=== PATIENT | female | born 1935 | race Caucasian/White ===

== ENCOUNTER → 2016-12-09 | Outpatient (CLI) | payer BC ==
[~2016-12-09] MED LIST: ALLO100T PO; ATEN50TA8 PO; ATOR-22 PO; COMPOUND CREAM EXT; CYAN100020 PO; DICL1GEL12 EXT; FERR325T51 PO; GABA1CAP5 PO; IPRA1AER2 INH; MULTTAB5 PO; NORT10CA2 PO; NORT25CA PO; NXM/40 PO; SENNTAB23 PO; TAPE50TA5 PO; TELM80TA PO; TRAM-10 PO; ZNTT/150 PO
[2016-12-09 17:59] LABS: HEMATOCRIT 37.2 % (37-47); MEAN CELL VOLUME 98.4 fL (80-100); MEAN CORPUSCULAR HEMOGLOBIN 31.2 pg (25-34); MEAN CORPUSCULAR HGB CONC 31.7 g/dl (32-36); MEAN PLATELET VOLUME 10.1 fL (7.4-10.4); PLATELET COUNT 252 K/uL (130-400); RED BLOOD COUNT 3.78 M/uL (4.2-5.4); WHITE BLOOD COUNT 8.33 K/uL (4.8-10.8)
[2016-12-09 18:01] LABS: ALT/SGPT 22 U/L (12-78); AST/SGOT 11 U/L (15-37); BLOOD UREA NITROGEN 33 mg/dl (7-18); BUN/CREATININE RATIO 25.5 (10-20); CALCIUM 8.7 mg/dl (8.5-10.1); CARBON DIOXIDE 32 mmol/L (21-32); CHLORIDE 104 mmol/L (98-107); GLUCOSE 106 mg/dl (70-99); SODIUM 140 mmol/L (136-145)
[2016-12-09 18:06] LABS: URINE PROTIEN/CREAT RATIO 0.1 (0-0.2)
[2016-12-09 18:13] LABS: ALB/GLOB RATIO 1.1 (0.9-2); ALKALINE PHOSPHATASE 81 U/L (45-117)
[2016-12-09 18:29] LABS: COMPLETE YES; EOSINOPHIL % 2.6 %; LYMPH ABS # 1.02 K/uL (1.2-3.4); LYMPHOCYTE % 12.2 %; MYELOCYTE % 0.9 %; NEUTROPHILS % 73.9 %; OVALOCYTES 1+
[2016-12-10 06:13] LABS: ESTIMATED AVERAGE GLUCOSE 111 mg/dl; HA1C FLAG Normal (Normal)
== END | disposition home or self-care (01) ==
LOC: C.LABPBG 12:08
PROVIDERS: ATTEND Internal Medicine Geriatric Medicine
DX: I12.9 Hypertensive chronic kidney disease with stage 1 through stage 4 chronic kidney disease, or unspecified chronic kidney disease (principal); M19.90 Unspecified osteoarthritis, unspecified site; D64.9 Anemia, unspecified; E11.29 Type 2 diabetes mellitus with other diabetic kidney complication; N18.3 Chronic kidney disease, stage 3 (moderate); E55.9 Vitamin D deficiency, unspecified

== ENCOUNTER 2017-07-03 14:58 | Emergency (ER) | payer BC ==
[~2017-07-03] VITALS: Ht 152.4 cm; Wt 89.0 kg
[~2017-07-03 14:58] MED LIST changes: -ATOR-22 PO; +GABA-1220 PO; -GABA1CAP5 PO; +RANI150T85 PO; -TRAM-10 PO; -ZNTT/150 PO
[2017-07-03 14:59] VITALS: TEMP 36.5; Ht 152.4 cm; Wt 89.0 kg
--- NOTE | 2017-07-03 15:23 | EMERGENCY ROOM VISIT NOTE ---
History Report prepared by Sheron: Roland Truong Under the Supervision of: Dr. Andre Cowan M.D. First contact with patient: 15:12 Chief Complaint: SHORTNESS OF BREATH Stated Complaint: SOB, WEAKNESS, FATIGUE History of Present Illness The patient is an 82 year old female who presents to the Emergency Room with complaints of constant SOB that began 2 weeks ago. The patient currently rates her discomfort a 4/10 in severity. She complains of weakness, fatigue, and increased swelling in her legs. She states her SOB worsens with exertion. She states that 2 weeks before, she did not have trouble walking. She is currently on Eliquis, Diltiazem, Xanax, and Amiodarone. She came back from [place] and woke up with SOB and wheezing. She went to the ED where was in Afib. She was told her micro valve is leaking and she needs to follow up with a shop tailor apprentice. She denies nausea, vomiting, abdominal pain, fevers, and chest pain. Source of History: patient Onset: 2 weeks ago Position: other (lungs) Symptom Intensity: pain rated as 4/10 Quality: other (SOB) Timing: constant Modifying Factors (Worsening): exertion Associated Symptoms: + weakness, No fevers, No chest pain, No nausea, No vomiting, No abdominal pain Note: Patient complains of increased swelling in her legs. Review of Systems See HPI for pertinent positives & negatives. A total of 10 systems reviewed and were otherwise negative. Past Medical & Surgical Medical Problems: (1) Asthma (2) Bronchitis (3) HTN (hypertension) (4) PNA (pneumonia) (5) Stomach problems (6) Ulcer Surgical Problems: (1) History of cholecystectomy Family History FH: lung disease FHx: heart disease Hypertension Social History Smoking Status: Never Smoker Marital Status: Occupation Status: retired Current/Historical Medications Scheduled Allopurinol (Zyloprim), 1 TAB PO QAM Amiodarone Hcl (Cordarone), 200 MG PO UD Apixaban (Eliquis), 5 MG PO BID Atenolol (Tenormin), 50 MG PO BID Atorvastatin (Lipitor), 20 MG PO QPM Cyanocobalamin (Vitamin B12), 1 TAB PO QAM Diltiazem Hcl Ext Rel (Tiazac), 240 MG PO DAILY Esomeprazole Magnesium (Nexium), 40 MG PO QAM Gabapentin (Neurontin), 400 MG PO QAM Multiple Vitamins W/ Minerals (Centrum), 1 TAB PO QAM Nortriptyline (Pamelor), 10 MG PO HS Nortriptyline (Pamelor), 25 MG PO HS Ranitidine (Zantac), 150 MG PO HS Telmisartan (Micardis), 80 MG PO QAM Scheduled PRN Alprazolam (Xanax), 0.5 MG PO Q8 PRN for Anxiety Diclofenac Sodium (Topical) (Voltaren 1% Top Gel), 1 DOSE EXT DAILY PRN for Pain Tapentadol Hcl (Nucynta), 50 MG PO BID PRN for prn Miscellaneous Medications Gabapentin (Neurontin), 800 MG PO Allergies Coded Allergies: Iodine (Verified Allergy, Severe, ANAPHYLAXIS, 01/25/16) Shellfish (Verified Allergy, Severe, ANAPHYLAXIS, 01/25/16) Paroxetine (Verified Allergy, Unknown, GI UPSET, 01/25/16) Physical Exam Vital Signs Date Time Temp Pulse Resp B/P (MAP) Pulse Ox O2 Delivery O2 Flow Rate FiO2 07/03/17 17:30 78 20 117/64 96 07/03/17 16:43 58 07/03/17 15:13 98 Room Air 07/03/17 14:59 36.5 71 18 119/67 97 Room Air Physical Exam GENERAL: Patient is tired appearing and in minimal distress. EYES: No scleral icterus, unremarkable pupils. ENT: Mucous membranes moist, no nasal congestion. NECK: No masses appreciated, no meningismus, trachea is midline. RESPIRATORY: No dyspnea. Clear to auscultation and equal bilaterally. No wheeze , no rhonchi. CARDIOVASCULAR: Regular rate and rhythm. No murmurs, rubs, gallops appreciated. GASTROINTESTINAL: Abdomen soft, nontender, no peritonitis. Bowel sounds positive. No masses appreciated. BACK: No midline tenderness, no CVA tenderness EXTREMITIES: Bilateral pitting edema of legs. Normal motion all extremities, no cyanosis. NEUROLOGIC: Alert and oriented, no acute motor or sensory deficits, no focal weakness, cranial nerves grossly intact. SKIN: No rash, no jaundice, no diaphoresis. Medical Decision & Procedures ER Provider Diagnostic Interpretation: Radiology results and stated below per my review and radiologist interpretation: CHEST ONE VIEW PORTABLE CLINICAL HISTORY: 82 years-old Female presenting with SHOB Fatigue, . TECHNIQUE: Portable upright AP view of the chest was obtained. COMPARISON: None. FINDINGS: Atherosclerosis of aortic arch. Cardiac silhouette enlarged. Chronic elevation of the left hemidiaphragm. No focal opacity. No large effusion or pneumothorax. Osseous structures normal. Upper abdomen normal. IMPRESSION: 1. Cardiomegaly. No other evidence of acute cardiopulmonary disease. Electronically signed by: Surjit John M.D. 07/03/2017 3:37 PM Dictated Date/Time: 07/03/2017 3:35 PM Laboratory Results 07/03/17 15:40 Red Blood Count 3.44, Mean Corpuscular Volume 100.9, Mean Corpuscular Hemoglobin 30.5, Mean Corpuscular Hemoglobin Concent 30.3, Mean Platelet Volume 8.9, Neutrophils (%) (Auto) 69.8, Lymphocytes (%) (Auto) 15.1, Monocytes (%) ( Auto) 8.3, Eosinophils (%) (Auto) 4.1, Basophils (%) (Auto) 0.6, Neutrophils # ( Auto) 3.60, Lymphocytes # (Auto) 0.78, Monocytes # (Auto) 0.43, Eosinophils # ( Auto) 0.21, Basophils # (Auto) 0.03 07/03/17 15:40 Test 07/03/17 15:40 White Blood Count 5.16 K/uL (4.8-10.8) Red Blood Count 3.44 M/uL (4.2-5.4) Hemoglobin 10.5 g/dL (12.0-16.0) Hematocrit 34.7 % (37-47) Mean Corpuscular Volume 100.9 fL (80-100) Mean Corpuscular Hemoglobin 30.5 pg (25-34) Mean Corpuscular Hemoglobin Concent 30.3 g/dl (32-36) Platelet Count 241 K/uL (130-400) Mean Platelet Volume 8.9 fL (7.4-10.4) Neutrophils (%) (Auto) 69.8 % Lymphocytes (%) (Auto) 15.1 % Monocytes (%) (Auto) 8.3 % Eosinophils (%) (Auto) 4.1 % Basophils (%) (Auto) 0.6 % Neutrophils # (Auto) 3.60 K/uL (1.4-6.5) Lymphocytes # (Auto) 0.78 K/uL (1.2-3.4) Monocytes # (Auto) 0.43 K/uL (0.11-0.59) Eosinophils # (Auto) 0.21 K/uL (0-0.5) Basophils # (Auto) 0.03 K/uL (0-0.2) RDW Standard Deviation 53.2 fL (36.4-46.3) RDW Coefficient of Variation 14.5 % (11.5-14.5) Immature Granulocyte % (Auto) 2.1 % Immature Granulocyte # (Auto) 0.11 K/uL (0.00-0.02) Anion Gap 5.0 mmol/L (3-11) Est Creatinine Clear Calc Drug Dose 28.2 ml/min Estimated GFR () 35.4 Estimated GFR (Non- 30.6 BUN/Creatinine Ratio 18.5 (10-20) Calcium Level 8.4 mg/dl (8.5-10.1) Magnesium Level 1.8 mg/dl (1.8-2.4) Troponin I < 0.015 ng/ml (0-0.045) Pro-B-Type Natriuretic Peptide 3149 pg/ml (0-1800) Thyroid Stimulating Hormone (TSH) 3.530 uIu/ml (0.300-4.500) Laboratory results as reviewed by me. Medications Administered Medications (Trade) Dose Ordered Sig/Herlinda Route Start Time Stop Time Status Last Admin Dose Admin Furosemide (Lasix Inj) 40 mg NOW STAT IV 07/03/17 16:39 07/03/17 16:41 DC 07/03/17 17:20 40 MG ECG Per My Interpretation Indication: SOB/dyspnea Rate (beats per minute): 76 Rhythm: atrial fibrillation Findings: no acute ischemic change, other (QTc of 465) ED Course 1512: The patient was evaluated in room A12. A complete history and physical exam was performed. 1640: I checked on the patient. She states that she feels fine and would like to go home if possible. We discussed that she likely has some fluid overload. She is agreeable to Lasix. She notes previous issues with potassium dropping quickly. Thus, she agrees to oral potassium and following up with her doctor early next week. 1715: Reevaluated the patient. Discussed results and discharge instructions: She verbalized understanding and agreement. The patient is ready for discharge. Medical Decision Differential: Infectious, Reactive Airway Disease, Pneumonia, Pneumothorax, COPD , CHF, ACS, Pulmonary Embolism, MSK, GI, Dissection, amongst other etiologies entertained. 82 yr old female arrives for shortness of breath and fatigue for last 2 week post discharge from [facility] for new onset Afib. On eliquis. Edema in legs and large heart CXR along with new afib I suspect this is primarily some congestive issues. No evidence ischemia, rate is well controlled, and she is already anticoagulated. TSH and mag look good as are other electrolytes. No evidence this is infectious in nature. She is not hypoxic, tachy, tachypneic, nor hypotensive and as she is already on blood thinner I feel risk PE is quite low and CT PE not indicated. She has never been on lasix though is well aware of them as he has been on for 20 yrs (even states he feels she should have been on them earlier). She notes previous issues with hypoK and thus I think it reasonable doing 20meq daily with PO lasix starting as long as she is seen by PCP in the next few days for recheck (which I advised heavily). She feels comfortable going home and is aware return at any time. Medication Reconcilliation Current Medication List: was personally reviewed by me Blood Pressure Screening Patient's blood pressure: Normal blood pressure Blood pressure disposition: Did not require urgent referral Impression Primary Impression: Shortness of breath Additional Impressions: Afib Fluid overload Scribe Attestation The scribe's documentation has been prepared under my direction and personally reviewed by me in its entirety. I confirm that the note above accurately reflects all work, treatment, procedures, and medical decision making performed by me. Departure Information Dispostion Home / Self-Care Referrals William Toussaint M.D. (PCP) Forms HOME CARE DOCUMENTATION FORM, IMPORTANT VISIT INFORMATION Patient Instructions My [facility] Stuffle Additional Instructions Take it easy over the next few days. Call 911 if worsening shortness of breath, chest pain, or passing out. Follow up with your primary provider early next week for further evaluation and recheck. Problem Qualifiers
--- NOTE | 2017-07-03 15:38 | DIAGNOSTIC IMAGING REPORT ---
CHEST ONE VIEW PORTABLE CLINICAL HISTORY: 82 years-old Female presenting with SHOB Fatigue, . TECHNIQUE: Portable upright AP view of the chest was obtained. COMPARISON: None. FINDINGS: Atherosclerosis of aortic arch. Cardiac silhouette enlarged. Chronic elevation of the left hemidiaphragm. No focal opacity. No large effusion or pneumothorax. Osseous structures normal. Upper abdomen normal. IMPRESSION: 1. Cardiomegaly. No other evidence of acute cardiopulmonary disease. Electronically signed by: Surjit John M.D. 07/03/2017 3:37 PM Dictated Date/Time: 07/03/2017 3:35 PM
[2017-07-03 15:49] LABS: BASO % 0.6 %; BASO ABS # 0.03 K/uL (0-0.2); EOS % 4.1 %; EOS ABS # 0.21 K/uL (0-0.5); HEMATOCRIT 34.7 % (37-47); HEMOGLOBIN 10.5 g/dL (12.0-16.0); IG# 0.11 K/uL (0.00-0.02); LYMPH % 15.1 %; LYMPH ABS # 0.78 K/uL (1.2-3.4); MEAN CELL VOLUME 100.9 fL (80-100); MEAN CORPUSCULAR HEMOGLOBIN 30.5 pg (25-34); MEAN CORPUSCULAR HGB CONC 30.3 g/dl (32-36); MEAN PLATELET VOLUME 8.9 fL (7.4-10.4); MONO % 8.3 %; MONO ABS # 0.43 K/uL (0.11-0.59); NEUT % 69.8 %; PLATELET COUNT 241 K/uL (130-400); RED CELL DISTRIBUTION WIDTH CV 14.5 % (11.5-14.5); RED CELL DISTRIBUTION WIDTH SD 53.2 fL (36.4-46.3); WHITE BLOOD COUNT 5.16 K/uL (4.8-10.8)
[2017-07-03] MEDS ORDERED: ATOR-22 PO (15:58)
[2017-07-03 16:05] LABS: BLOOD UREA NITROGEN 29 mg/dl (7-18); CALCIUM 8.4 mg/dl (8.5-10.1); CARBON DIOXIDE 26 mmol/L (21-32); CREATININE 1.58 mg/dl (0.60-1.20); GLUCOSE 191 mg/dl (70-99); POTASSIUM 4.4 mmol/L (3.5-5.1); SODIUM 138 mmol/L (136-145)
[2017-07-03] MEDS ORDERED: FUROSEMIDE 40 MG/4 ML VIAL IV STA (16:39)
[2017-07-03] MEDS ORDERED: FURO-85 PO (16:53)
[2017-07-03] MEDS ORDERED: POTA20TA16 PO (16:53)
[2017-07-03] MEDS ORDERED: ALPR-411 PO (17:23)
[2017-07-03] MEDS ORDERED: APIX1TAB3 PO (17:23)
[2017-07-03] MEDS ORDERED: AMIO200T4 PO (17:23)
[2017-07-03] MEDS ORDERED: DILT-115 PO (17:23)
[2017-07-03 17:30] VITALS: BP 117/64; PULSE 78; O2SAT 96
[2017-07-03] MEDS ORDERED: GABA-1220 PO ×2 (17:30)
== END 2017-07-03 17:31 | disposition home or self-care (01) ==
LOC: C.EDB 14:59 → C.EDA 17:31
DX: R06.02 Shortness of breath (principal); I48.91 Unspecified atrial fibrillation; R60.0 Localized edema; J45.909 Unspecified asthma, uncomplicated; I10 Essential (primary) hypertension; Z79.01 Long term (current) use of anticoagulants; Z91.013 Allergy to seafood; Z88.8 Allergy status to other drugs, medicaments and biological substances; Z91.041 Radiographic dye allergy status; Z83.3 Family history of diabetes mellitus; Z82.49 Family history of ischemic heart disease and other diseases of the circulatory system

== ENCOUNTER → 2017-07-06 | Outpatient (CLI) | payer BC ==
[~2017-07-06] MED LIST changes: +ALPR-411 PO; +AMIO200T4 PO; +APIX1TAB3 PO; +ATOR-22 PO; -COMPOUND CREAM EXT; +DILT-115 PO; -FERR325T51 PO; -IPRA1AER2 INH; -SENNTAB23 PO
[2017-07-06 15:43] LABS: ALBUMIN 3.5 gm/dl (3.4-5.0); BLOOD UREA NITROGEN 29 mg/dl (7-18); CALCIUM 8.5 mg/dl (8.5-10.1); CARBON DIOXIDE 27 mmol/L (21-32); CREATININE 1.79 mg/dl (0.60-1.20); GLUCOSE 97 mg/dl (70-99); PHOSPHORUS 3.2 mg/dl (2.5-4.9); POTASSIUM 3.9 mmol/L (3.5-5.1); SODIUM 139 mmol/L (136-145)
== END | disposition home or self-care (01) ==
LOC: C.LABBC 12:00
PROVIDERS: ATTEND Family Medicine Adult Medicine
DX: I50.9 Heart failure, unspecified (principal)

== ENCOUNTER → 2017-07-17 | Outpatient (CLI) | payer BC ==
[~2017-07-17] MED LIST changes: +FURO-85 PO; +MULT-190 PO
[2017-07-17 16:42] LABS: BASO % 0.4 %; BASO ABS # 0.03 K/uL (0-0.2); EOS % 3.1 %; EOS ABS # 0.24 K/uL (0-0.5); HEMATOCRIT 36.8 % (37-47); HEMOGLOBIN 11.4 g/dL (12.0-16.0); IG# 0.08 K/uL (0.00-0.02); LYMPH % 11.6 %; MEAN CELL VOLUME 100.8 fL (80-100); MEAN CORPUSCULAR HEMOGLOBIN 31.2 pg (25-34); MONO % 7.7 %; NEUT % 76.2 %; NEUT ABS # 5.94 K/uL (1.4-6.5); PLATELET COUNT 241 K/uL (130-400); RED CELL DISTRIBUTION WIDTH CV 15.2 % (11.5-14.5); RED CELL DISTRIBUTION WIDTH SD 54.7 fL (36.4-46.3); WHITE BLOOD COUNT 7.79 K/uL (4.8-10.8)
[2017-07-17 16:53] LABS: ALBUMIN 4.2 gm/dl (3.4-5.0); ALT/SGPT 22 U/L (12-78); BLOOD UREA NITROGEN 33 mg/dl (7-18); CARBON DIOXIDE 26 mmol/L (21-32); CREATININE 2.23 mg/dl (0.60-1.20); GLUCOSE 121 mg/dl (70-99); POTASSIUM 4.3 mmol/L (3.5-5.1); SODIUM 139 mmol/L (136-145)
[2017-07-17 17:03] LABS: ALKALINE PHOSPHATASE 87 U/L (45-117); AST/SGOT 17 U/L (15-37); TOTAL PROTEIN 7.2 gm/dl (6.4-8.2)
== END | disposition home or self-care (01) ==
LOC: C.LABPBG 14:21
PROVIDERS: ATTEND Internal Medicine Geriatric Medicine
DX: I12.9 Hypertensive chronic kidney disease with stage 1 through stage 4 chronic kidney disease, or unspecified chronic kidney disease (principal); D64.9 Anemia, unspecified; E11.22 Type 2 diabetes mellitus with diabetic chronic kidney disease; N18.3 Chronic kidney disease, stage 3 (moderate); E55.9 Vitamin D deficiency, unspecified; I48.91 Unspecified atrial fibrillation

== ENCOUNTER 2017-07-22 13:01 | Inpatient (IN) | payer BC, OTHER ==
[~2017-07-22] VITALS: Ht 152.4 cm; Wt 84.7 kg
[~2017-07-22 13:01] MED LIST changes: -CRDCD180 PO; -FURO-85 PO; -LDDP5 TD; -MGNO400 PO; -MULT-190 PO; -SYN25 PO; -TPRSR50 PO
[2017-07-22] MEDS ORDERED: MULT-190 PO (13:33)
[2017-07-22 13:56] LABS: BASO % 0.2 %; BASO ABS # 0.01 K/uL (0-0.2); EOS ABS # 0.36 K/uL (0-0.5); HEMATOCRIT 34.4 % (37-47); HEMOGLOBIN 10.7 g/dL (12.0-16.0); IG# 0.05 K/uL (0.00-0.02); LYMPH % 14.2 %; LYMPH ABS # 0.73 K/uL (1.2-3.4); MEAN CELL VOLUME 100.6 fL (80-100); MEAN CORPUSCULAR HEMOGLOBIN 31.3 pg (25-34); MEAN CORPUSCULAR HGB CONC 31.1 g/dl (32-36); MEAN PLATELET VOLUME 9.3 fL (7.4-10.4); MONO % 7.8 %; NEUT % 69.8 %; NEUT ABS # 3.59 K/uL (1.4-6.5); PLATELET COUNT 193 K/uL (130-400); RED CELL DISTRIBUTION WIDTH CV 15.2 % (11.5-14.5); RED CELL DISTRIBUTION WIDTH SD 55.8 fL (36.4-46.3); WHITE BLOOD COUNT 5.14 K/uL (4.8-10.8)
--- NOTE | 2017-07-22 14:10 | DIAGNOSTIC IMAGING REPORT ---
CHEST ONE VIEW PORTABLE HISTORY: Short of breath. Altered mental status. COMPARISON: Chest 07/03/2017. FINDINGS: There are low lung volumes. The right lung is clear. The heart remains borderline enlarged. No evidence for pulmonary edema. Stable blunting of the left lateral costophrenic sulcus. No new focal lung consolidations. IMPRESSION: No significant change compared to the prior study. No acute process. Electronically signed by: Lucius Tate M.D. 07/22/2017 2:09 PM Dictated Date/Time: 07/22/2017 2:07 PM
[2017-07-22 14:13] LABS: ALBUMIN 3.9 gm/dl (3.4-5.0); ALT/SGPT 21 U/L (12-78); AST/SGOT 13 U/L (15-37); BLOOD UREA NITROGEN 48 mg/dl (7-18); CALCIUM 8.9 mg/dl (8.5-10.1); CARBON DIOXIDE 27 mmol/L (21-32); CREATININE 2.75 mg/dl (0.60-1.20); GLUCOSE 129 mg/dl (70-99); POTASSIUM 4.5 mmol/L (3.5-5.1); SODIUM 137 mmol/L (136-145)
--- NOTE | 2017-07-22 14:20 | DIAGNOSTIC IMAGING REPORT ---
HEAD WITHOUT CONTRAST (CT) CLINICAL HISTORY: 82 years-old Female with AMS, diff walking. Acute altered mental status TECHNIQUE: Multiple axial CT images of the head were obtained without contrast. A dose lowering technique was utilized adhering to the principles of ALARA. CT DOSE: 537.48 mGy.cm COMPARISON: Head CT 04/08/2013. FINDINGS: No acute intracranial hemorrhage, midline shift, intracranial mass, hydrocephalus, territorial ischemia or abnormal extra-axial collection. 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 Mild brain atrophy. Ill-defined areas of low-attenuation within the white matter of the cerebral hemispheres bilaterally suggest mild chronic microvascular ischemic changes. The calvarium is intact. Mild mucosal thickening of the ethmoid air cells. Mastoid air cells and paranasal sinuses appear clear. IMPRESSION: 1. No acute intracranial abnormality identified. 2. 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 The above report was generated using voice recognition software. It may contain grammatical, syntax or spelling errors. Electronically signed by: Manuel Vargas M.D. 07/22/2017 2:19 PM Dictated Date/Time: 07/22/2017 2:15 PM
[2017-07-22] MEDS ORDERED: SODIUM CHLORIDE 0.9% 250ML 250 ML IV STA (14:21)
[2017-07-22 14:24] LABS: ALKALINE PHOSPHATASE 85 U/L (45-117); TOTAL PROTEIN 7.2 gm/dl (6.4-8.2)
[2017-07-22] MEDS ORDERED: FURO-85 PO (16:02)
--- NOTE | 2017-07-22 16:25 | DIAGNOSTIC IMAGING REPORT ---
LUMBAR SPINE WITHOUT CLINICAL HISTORY: 82 years-old Female presenting with BLE weakness, amb dysfunction, falls. TECHNIQUE: Multidetector CT of the lumbar spine was performed without the use of intravenous contrast. IV contrast: None. A dose lowering technique was used consistent with the principles of ALARA (as low as reasonably achievable). COMPARISON: 04/04/2011. CT DOSE (mGy.cm): The estimated cumulative dose is 540.17 mGycm. FINDINGS: Environmental Laboratory Technician topogram: A medical administrative technician projects over the right lower quadrant. Normal lumbar lordosis. No significant scoliosis. Anterior vertebral body height loss of approximately 25% noted of L1 with concavity of the superior endplate consistent with a compression deformity. No retropulsion of fracture fragments. Remainder of vertebral bodies demonstrate grossly normal height. Intervertebral disc height loss evident at L1-2 and L5-S1 to the greatest degree. Vacuum disc phenomenon noted at several levels. Mild multilevel degenerative changes with osteophytosis. No significant osseous neural foraminal narrowing. No osseous spinal canal narrowing. Transitional lumbosacral anatomy is evident at the right transverse process of L5. Paraspinal soft tissues remarkable for atherosclerosis of the normal caliber aorta. Nonspecific subcutaneous edema noted in the lumbar region. Overall image quality is degraded by patient body habitus limiting the [id number] ratio. IMPRESSION: 1. 25% anterior vertebral body height loss of L1 is stable since 2010. No evidence of acute osseous injury. 2. Multilevel degenerative changes without osseous neural foraminal or spinal canal narrowing allowing for image quality. Electronically signed by: Surjit John M.D. 07/22/2017 4:24 PM Dictated Date/Time: 07/22/2017 4:21 PM
[2017-07-22] MEDS ORDERED: ALUMINUM/MAGNESIUM/SIMETH (MAALOX MAX) 30 ML UDC PO PRN (16:30)
[2017-07-22] MEDS ORDERED: ONDANSETRON INJ 2 MG/ML 2 ML VIAL IV PRN (16:30)
[2017-07-22] MEDS ORDERED: AMIODARONE 200 MG TAB PO SCH (16:30)
[2017-07-22] MEDS ORDERED: POLYETHYLENE (MIRALAX) 17 GM PACK PO PRN (16:30)
[2017-07-22] MEDS ORDERED: MAGNESIUM HYDROXIDE SUSP 30 ML UDC PO PRN (16:30)
--- NOTE | 2017-07-22 17:13 | History and Physical ---
History & Physical Date & Time of Service: Jul 22, 2017 at 16:39 Chief Complaint: Afib,Falling, Weakness Primary Care Physician: William Toussaint M.D. History of Present Illness Source: patient 82 y/o F Hx HTN, AF - Eliquis, Mitral regurge, CKD, gout, obese, lumbar stenosis. The pt presents with progressive LE weakness. She denies any pain in her lower back or legs and denies numbness. She has urinary incontinence at baseline but has not noted worsening. She has suffered three falls on the day of admission without mention of head trauma. She was unable to get up following the 3rd fall and remains unable to ambulate at the time of admission. Initial labs are notable for PATY. The pt was recently vacationing in [place] when she developed rapid AF. While hospitalized she was also diagnosed with mitral regurgitation. She was placed on Amiodarone, Diltiazem and Eliquis and discharged to follow-up in [place]. She has a cardiology appt for an echo scheduled in the coming week. She does not have any related symptoms at the time of admission. Past Medical/Surgical History 1) HTN 2) Chronic atrial fibrillation 3) Mitral regurge 4) Chronic urinary incontinence 5) CKD III 6) Chronic anemia 7) Chronic lower back pain 8) Lumbar stenosis 9) Gout 10) Obese Surgical: 1) Implanted bladder stimulator 2) Cholecystectomy Family History FH: lung disease FHx: heart disease Hypertension Social History Smoking Status: Never Smoker Marital Status: Occupational Status: retired Immunizations History of Influenza Vaccine: Yes History of Tetanus Vaccine?: Unknown History of Pneumococcal: Yes History of Hepatitis B Vaccine: No Allergies Coded Allergies: Iodine (Verified Allergy, Severe, ANAPHYLAXIS, 07/16/17) Shellfish (Verified Allergy, Severe, ANAPHYLAXIS, 07/16/17) Paroxetine (Verified Allergy, Unknown, GI UPSET, 07/16/17) Home Medications Scheduled Allopurinol (Zyloprim), 1 TAB PO QAM Amiodarone Hcl (Cordarone), 200 MG PO UD Apixaban (Eliquis), 2.5 MG PO BID Atenolol (Tenormin), 50 MG PO BID Atorvastatin (Lipitor), 20 MG PO QPM Cyanocobalamin (Vitamin B12), 1 TAB PO QAM Diltiazem Hcl Ext Rel (Tiazac), 240 MG PO DAILY Esomeprazole Magnesium (Nexium), 40 MG PO QAM Furosemide (Lasix), 20 MG PO DAILY Gabapentin (Neurontin), 400 MG PO QAM Gabapentin (Neurontin), 800 MG PO HS Multiple Vitamins W/ Minerals (Centrum), 1 TAB PO QAM Nortriptyline (Pamelor), 10 MG PO HS Nortriptyline (Pamelor), 25 MG PO HS Ocuvite Preservision (Ocuvite Preservision), 1 TAB PO AMHS Ranitidine (Zantac), 150 MG PO HS Telmisartan (Micardis), 80 MG PO QAM Scheduled PRN Diclofenac Sodium (Topical) (Voltaren 1% Top Gel), 1 DOSE EXT DAILY PRN for Pain Tapentadol Hcl (Nucynta), 50 MG PO BID PRN for prn Review of Systems Constitutional: No fever, No chills, No sweats Eyes: No worsening of vision ENT: No hearing loss, No nasal symptoms Respiratory: No cough, No wheezing Cardiovascular: No chest pain, No orthopnea, No PND Abdomen: No pain, No nausea, No vomiting Musculoskeletal: + problem reported (chronic low back pain) Genitourinary - Female: + urinary incontinence, No dysuria Neurologic: + weakness (Lower extrem as above), No memory loss, No paralysis Endocrine: No fatigue Hematologic / Lymphatic: No abnormal bleeding/bruising Integumentary: No rash Allergic / Immunologic: No environmental allergies Physical Exam Vital Signs Date Time Temp Pulse Resp B/P (MAP) Pulse Ox O2 Delivery O2 Flow Rate FiO2 07/22/17 16:30 71 07/22/17 13:56 36.7 74 18 112/77 96 Room Air 07/22/17 13:56 36.7 69 18 112/77 96 Room Air 07/22/17 13:51 Room Air 07/22/17 13:16 90 07/22/17 13:05 36.7 76 20 95/57 98 Room Air General Appearance: WD/WN, no apparent distress Head: normocephalic Eyes: normal inspection ENT: normal ENT inspection, pharynx normal Neck: supple, no JVD Respiratory/Chest: chest non-tender, lungs clear, normal breath sounds Cardiovascular: no gallop, no JVD, + systolic murmur, + irregularly irregular Abdomen/GI: normal bowel sounds, non tender, soft Back: normal inspection Extremities/Musculoskelatal: normal inspection, no calf tenderness, normal capillary refill Neurologic/Psych: 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 tested, alert, oriented x 3, + pertinent finding (Sensation is intact in the LEs BL - there is weakness which is more proximal and appears equal BL ) Skin: normal color Diagnostics Laboratory Results Results Past 24 Hours Test 07/22/17 13:32 07/22/17 14:23 Range/Units White Blood Count 5.14 4.8-10.8 K/uL Red Blood Count 3.42 4.2-5.4 M/uL Hemoglobin 10.7 12.0-16.0 g/dL Hematocrit 34.4 37-47 % Mean Corpuscular Volume 100.6 80-100 fL Mean Corpuscular Hemoglobin 31.3 25-34 pg Mean Corpuscular Hemoglobin Concent 31.1 32-36 g/dl Platelet Count 193 130-400 K/uL Mean Platelet Volume 9.3 7.4-10.4 fL Neutrophils (%) (Auto) 69.8 % Lymphocytes (%) (Auto) 14.2 % Monocytes (%) (Auto) 7.8 % Eosinophils (%) (Auto) 7.0 % Basophils (%) (Auto) 0.2 % Neutrophils # (Auto) 3.59 1.4-6.5 K/uL Lymphocytes # (Auto) 0.73 1.2-3.4 K/uL Monocytes # (Auto) 0.40 0.11-0.59 K/uL Eosinophils # (Auto) 0.36 0-0.5 K/uL Basophils # (Auto) 0.01 0-0.2 K/uL RDW Standard Deviation 55.8 36.4-46.3 fL RDW Coefficient of Variation 15.2 11.5-14.5 % Immature Granulocyte % (Auto) 1.0 % Immature Granulocyte # (Auto) 0.05 0.00-0.02 K/uL Sodium Level 137 136-145 mmol/L Potassium Level 4.5 3.5-5.1 mmol/L Chloride Level 105 98-107 mmol/L Carbon Dioxide Level 27 21-32 mmol/L Anion Gap 5.0 3-11 mmol/L Blood Urea Nitrogen 48 7-18 mg/dl Creatinine 2.75 0.60-1.20 mg/dl Estimated GFR () 18.1 Estimated GFR (Non- 15.6 BUN/Creatinine Ratio 17.4 10-20 Random Glucose 129 70-99 mg/dl Calcium Level 8.9 8.5-10.1 mg/dl Magnesium Level 2.5 1.8-2.4 mg/dl Total Bilirubin 0.6 0.2-1 mg/dl Direct Bilirubin 0.2 0-0.2 mg/dl Aspartate Amino Transf (AST/SGOT) 13 15-37 U/L Alanine Aminotransferase (ALT/SGPT) 21 12-78 U/L Alkaline Phosphatase 85 45-117 U/L Troponin I < 0.015 0-0.045 ng/ml Total Protein 7.2 6.4-8.2 gm/dl Albumin 3.9 3.4-5.0 gm/dl Thyroid Stimulating Hormone (TSH) 5.700 0.300-4.500 uIu/ml Urine Color YELLOW Urine Appearance CLEAR CLEAR Urine pH 5.0 4.5-7.5 Urine Specific [place] 1.017 1.000-1.030 Urine Protein NEG NEG Urine Glucose (UA) NEG NEG Urine Ketones NEG NEG Urine Occult Blood NEG NEG Urine Nitrite NEG NEG Urine Bilirubin NEG NEG Urine Urobilinogen NEG NEG Urine Leukocyte Esterase SMALL NEG Urine WBC (Auto) 1-5 0-5 /hpf Urine RBC (Auto) 0-4 0-4 /hpf Urine Hyaline Casts (Auto) 5-10 0-5 /lpf Urine Epithelial Cells (Auto) 5-10 0-5 /lpf Urine Bacteria (Auto) NEG NEG Diagnostic Radiology CT lumbar: 1. 25% anterior vertebral body height loss of L1 is stable since 2010. No evidence of acute osseous injury. 2. Multilevel degenerative changes without osseous neural foraminal or spinal canal narrowing allowing for image quality. EKG AF - low voltage - no significant change Impression Assessment and Plan 82 y/o F Hx HTN, AF - Eliquis, Mitral regurge, CKD, gout, obese, lumbar stenosis. The pt presents with progressive LE weakness. She denies any pain in her lower back or legs and denies numbness. She has urinary incontinence at baseline but has not noted worsening. She has suffered three falls on the day of admission without mention of head trauma. She was unable to get up following the 3rd fall and remains unable to ambulate at the time of admission. Initial labs are notable for PATY. 1) LE weakness - unable to ambulate - we will obtain an orthopedics consult. PT and OT will evaluate as she will likely need rehab placement. A CT did not show any acute changes and she is not a candidate for an MRI due to an implanted bladder stimulator. There are no concerning neuro deficits or imaging findings to support Dexamethasone use at this time. A recent B12 is noted to be normal. 2) AF - we have held Eliquis pending AM assessment as she is at risk of trauma. We will continue Amiodarone and Diltiazem. Her rate is controlled on admission. 3) PATY - creatinine appears to be worsening - possibly due to recent addition of Lasix to her meds - we will hold and provide IVF - recheck BMP AM. 4) Anemia - chronic - Hb is at baseline. 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 6) Gout - Allopurinol held due to PATY - can restart or provide a steroid taper if needed. 7) Mildly elevated TSH on recent labs - she c/o tremor - she can follow with her primary Full code - additional anticoagulation held Total time for this admit including review of labs, meds, imaging, records - discussion with pt and ER attending - 38 min Resuscitation Status VTE Prophylaxis Will order VTE Prophylaxis: Yes
[2017-07-22 17:45] VITALS: BP 136/79; PULSE 79; TEMP 36.5; O2SAT 93; Ht 152.4 cm; Wt 84.7 kg
[2017-07-22] MEDS ORDERED: IV FLUIDS COMPLETED PRN (18:45)
[2017-07-22] MEDS: ATORVASTATIN 20 MG TAB PO SCH (21:05)
[2017-07-22] MEDS: RANITIDINE HCL 150 MG TAB PO SCH (21:05)
[2017-07-22] MEDS: GABAPENTIN 400 MG CAP PO SCH (21:06)
[2017-07-22] MEDS: NORTRIPTYLINE HCL 10 MG CAP PO SCH (21:06)
[2017-07-22] MEDS: NORTRIPTYLINE HCL 25 MG CAP PO SCH (21:07)
[2017-07-22] MEDS: APIXABAN 2.5 MG TAB PO SCH (21:07)
[2017-07-22 23:52] VITALS: BP 136/80; PULSE 84; TEMP 36.6; O2SAT 93
[2017-07-23] VITALS (10 sets, daily range): BP systolic 62–128; BP diastolic 31–84; PULSE 44–87; TEMP 36.4–36.6; O2SAT 85–100
[2017-07-23] MEDS ORDERED: DILTIAZEM HCL 120 MG EXT REL CAP PO SCH (08:00)
[2017-07-23] MEDS: PANTOprazole SOD 40 MG TAB PO SCH (08:09)
[2017-07-23] MEDS: CYANOCOBALAMIN 500 MCG TAB (VIT B-12) PO SCH (08:12)
[2017-07-23] MEDS: APIXABAN 2.5 MG TAB PO SCH (08:12)
[2017-07-23] MEDS: GABAPENTIN 400 MG CAP PO SCH ×2 (08:13→21:40)
[2017-07-23 12:05] LABS: CALCIUM 8.9 mg/dl (8.5-10.1); CREATININE 2.05 mg/dl (0.60-1.20); POTASSIUM 4.1 mmol/L (3.5-5.1)
[2017-07-23] MEDS ORDERED: GLUCAGON FOR INJ 1 MG VIAL SQ PRN (15:15)
[2017-07-23] MEDS ORDERED: GLUCOSE 10 TABS/TUBE PO PRN (15:15)
[2017-07-23] MEDS ORDERED: DEXTROSE 50% 50 ML SYR IV PRN (15:15)
[2017-07-23] MEDS ORDERED: GLUCOSE 40% GEL 15 GM TUBE PO PRN (15:15)
[2017-07-23] MEDS: ACETAMINOPHEN 325 MG TAB PO PRN (15:40)
[2017-07-23] MEDS: INSULIN ASPART 100 UNITS/ML 3 ML PEN SC SCH ×2 (16:30→21:47)
[2017-07-23] MEDS ORDERED: SODIUM CHLORIDE 0.9% 1000ML 1,000 ML IV SCH (17:00)
[2017-07-23] MEDS ORDERED: DOPamine 400MG / D5W 400 MG IV PRN ×2 (17:30→17:45)
[2017-07-23] MEDS ORDERED: DOPamine 400MG / 250ML D5W ONE (17:43)
--- NOTE | 2017-07-23 17:50 | Progress Note ---
Subjective Date of Service: Jul 23, 2017. Subjective Pt evaluation today including: conversation w/ patient, conversation w/ family , physical exam, lab review, review of studies, conversation w/ sales enablement consultant, review of inpatient medication list Pain: no pain PO Intake: poor, feeling nauseated patient seen and examined early in the afternoon, she was c/o some nausea c/o feeling weak all over discussed with her family, she has not felt well since returning from [place] while there she was diagnosed with atrial fibrillation RVR rates in 140's cardioversion was attempted, but was not successful she was controlled on atenolol 50mg BID and Amiodarone 200mg daily and Diltiazem 240mg daily she was started on Eliquis for anticoagulation since coming back to [place] she has c/o feeling weak, she has fallen several times, no loss of consciousness even her arms are weak and her family feels like she has been struggling to talk she feels like the weakness gets worse as day progresses she denies any diplopia or drooping eye lids she has not experienced any chest pain or palpitations, she does admit to feeling short of breath she had followed up with Dr. Venegas and he planned to repeat studies done in [place] around 1700 I was called because patient was bradycardic and hypotensive, HR in 40's and BP 70's systolic she c/o fatigue, nausea, diaphoresis, denied chest pain she had been on bed mayorga trying to move bowels gave Atropine 1mg and HR came up temporarily to 70's but then down to 40's 12 lead EKG showed atrial fibrillation with slow response, no ST elevations seen called Dr. Arechiga, discussed case with him, recommended transfer to ICU discussed with Dr. Mcgrath at the bedside, plan to pace patient if needed Problem List Medical Problems: (1) Afib Status: Acute (2) Fluid overload Status: Acute (3) Shortness of breath Status: Acute Review of Systems Constitutional: + sweats, + weakness, + fatigue Respiratory: + shortness of breath Neurologic: + weakness, + balance problems, + problem reported (repeated falls) All Other Systems: Reviewed and Negative Medications Current Inpatient Medications Medications (Trade) Dose Ordered Sig/Herlinda Route Start Time Stop Time Status Last Admin Dose Admin Atorvastatin Calcium (Lipitor Tab) 20 mg QPM PO 07/22/17 21:00 08/21/17 20:59 07/22/17 21:05 20 MG Diltiazem HCl (TIAzac CAP) 240 mg DAILY PO 07/23/17 08:00 08/22/17 08:59 07/23/17 08:12 240 MG Gabapentin (Neurontin Cap) 400 mg QAM PO 07/23/17 08:00 08/22/17 08:59 07/23/17 08:13 400 MG Gabapentin (Neurontin Cap) 800 mg HS PO 07/22/17 21:00 08/21/17 20:59 07/22/17 21:06 800 MG Nortriptyline HCl (Pamelor Cap) 10 mg HS PO 07/22/17 21:00 08/21/17 20:59 07/22/17 21:06 10 MG Nortriptyline HCl (Pamelor Cap) 25 mg HS PO 07/22/17 21:00 08/21/17 20:59 07/22/17 21:07 25 MG Ranitidine HCl (zANTac TAB) 150 mg HS PO 07/22/17 21:00 08/21/17 20:59 07/22/17 21:05 150 MG Tapentadol (Nucynta Tab) 50 mg BID PRN PO 07/22/17 16:30 08/21/17 16:29 Apixaban (Eliquis Tab) 2.5 mg BID PO 07/22/17 20:00 08/21/17 20:59 07/23/17 08:12 2.5 MG Cyanocobalamin (Vitamin B-12 Tab) 1,000 mcg QAM PO 07/23/17 08:00 08/22/17 08:59 07/23/17 08:12 1,000 MCG Pantoprazole Sodium (Protonix Tab) 40 mg QAM PO 07/23/17 08:00 08/22/17 08:59 07/23/17 08:09 40 MG Acetaminophen (Tylenol Tab) 650 mg Q4H PRN PO 07/22/17 16:30 08/21/17 16:29 07/23/17 15:40 650 MG Al Hydrox/Mg Hydrox/Simethicone (Maalox Max Susp) 15 ml Q4H PRN PO 07/22/17 16:30 08/21/17 16:29 Magnesium Hydroxide (Milk Of Magnesia Susp) 30 ml Q6H PRN PO 07/22/17 16:30 08/21/17 16:29 Polyethylene (Miralax Powder Packet) 17 gm DAILY PRN PO 07/22/17 16:30 08/21/17 16:29 Ondansetron HCl (Zofran Inj) 4 mg Q6H PRN IV 07/22/17 16:30 08/21/17 16:29 07/23/17 15:41 4 MG Miscellaneous (Iv Fluids Completed) 1 ea PRN PRN N/A 07/22/17 18:45 07/22/18 18:44 Insulin Aspart (novoLOG ASPART) SLIDING SCALE G... ACHS SC 07/23/17 16:30 08/22/17 16:29 Glucose (Glucose 40% Gel) 15-30 GRAMS 15 GRAMS... UD PRN PO 07/23/17 15:15 08/22/17 15:14 Glucose (Glucose Chew Tab) 4-8 Tablets 4 Tabl... UD PRN PO 07/23/17 15:15 08/22/17 15:14 Dextrose (Dextrose 50% 50ML Syringe) 25-50ML OF 50% DW IV FOR... UD PRN IV 07/23/17 15:15 08/22/17 15:14 Glucagon (Glucagon Inj) 1 mg UD PRN SQ 07/23/17 15:15 08/22/17 15:14 Sodium Chloride 1,000 ml @ 999 mls/hr Q1H1M IV 07/23/17 17:00 07/23/17 18:00 Dopamine HCl/ Dextrose 250 ml @ 0 mls/hr Q0M PRN IV 07/23/17 17:30 08/22/17 17:29 UNV Objective Vital Signs Date Time Temp Pulse Resp B/P (MAP) Pulse Ox O2 Delivery O2 Flow Rate FiO2 07/23/17 16:20 44 18 70/46 (54) 94 Room Air 07/23/17 09:18 Room Air 07/23/17 07:23 36.6 81 18 128/84 (99) 95 Room Air 07/23/17 00:00 Room Air 07/22/17 23:52 36.6 84 18 136/80 (98) 93 Room Air 07/22/17 17:45 36.5 79 18 136/79 93 Room Air Physical Exam General Appearance: + mild distress, + obese Eyes: normal inspection, PERRL, EOMI, sclerae normal ENT: normal ENT inspection, hearing grossly normal, pharynx normal Neck: supple, no adenopathy, no JVD, trachea midline Respiratory/Chest: chest non-tender, lungs clear, normal breath sounds, no respiratory distress, no accessory muscle use Cardiovascular: no edema, no gallop, no JVD, no murmur, + bradycardia Abdomen: normal bowel sounds, non tender, soft, no organomegaly Extremities: normal range of motion, non-tender, normal inspection, no pedal edema, no calf tenderness Neurologic/Psychiatric: fur mixer II-XII nml as tested, alert, normal mood/affect, oriented x 3, + motor weakness (4 out of 5 in legs and arms), + pertinent finding (normal DTR, no inducible clonus, no resting tremors, no cogwheel rigidity) Skin: normal color, warm/dry, no rash Lymphatic: no adenopathy Laboratory Results Last 24 Hours Test 07/23/17 11:09 07/23/17 14:39 07/23/17 16:54 Sodium Level 141 mmol/L Potassium Level 4.1 mmol/L Chloride Level 107 mmol/L Carbon Dioxide Level 27 mmol/L Anion Gap 7.0 mmol/L Blood Urea Nitrogen 41 mg/dl Creatinine 2.05 mg/dl Est Creatinine Clear Calc Drug Dose 21.8 ml/min Estimated GFR () 25.9 Estimated GFR (Non- 22.3 BUN/Creatinine Ratio 20.0 Random Glucose 139 mg/dl Calcium Level 8.9 mg/dl Bedside Glucose 246 mg/dl Assessment and Plan 82 yo female with weakness, new diagnosis of atrial fibrillation, now with bradycardia and hypotension - Bradycardia and hypotension: 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 Arechiga, for possible pacemaker EKG showed no ST elevations hold Eliquis for possible pacer NPO after midnight keep in ICU, Dr. Mcgrath consulted - Weakness and falls may be due to bradycardia at home that was intermittent no focal neurological deficits would consider MRI brain but she cannot have one due to bladder implant will resume work up once bradycardia treated - HTN: currently hypotensive, all antihypertensives on hold DVT prophylaxis: was on Eliquis, holding this evening Level 1 40 minutes of critical care time spent with patient
[2017-07-23 18:02] LABS: HEMATOCRIT 34.2 % (37-47); HEMOGLOBIN 10.5 g/dL (12.0-16.0); MEAN CELL VOLUME 101.8 fL (80-100); MEAN CORPUSCULAR HEMOGLOBIN 31.3 pg (25-34); MEAN CORPUSCULAR HGB CONC 30.7 g/dl (32-36); MEAN PLATELET VOLUME 9.3 fL (7.4-10.4); PLATELET COUNT 169 K/uL (130-400); RED CELL DISTRIBUTION WIDTH CV 15.5 % (11.5-14.5); RED CELL DISTRIBUTION WIDTH SD 57.1 fL (36.4-46.3); WHITE BLOOD COUNT 6.32 K/uL (4.8-10.8)
--- NOTE | 2017-07-23 18:03 | EMERGENCY ROOM VISIT NOTE ---
History Report prepared by Sheron: Rod Cee Under the Supervision of: Dr. Charlette Wiseman M.D. First contact with patient: 13:12 Chief Complaint: IRREGULAR HEARTBEAT Stated Complaint: AFIB,FALLING, WEAKNESS History of Present Illness The patient is a 82 year old female who presents to the Emergency Room with complaints of constant generalized weakness beginning last week. The patient states that she has fallen multiple times, approximately 18-20 times over the last several weeks since being home from [place]. Her most recent fall occurring shortly prior to arrival. She states that she occasionally feels short of breath. The patient is on Eloquis for A-fib (diagnosed last month). She is on Cardizem and Amiodarone (started last month). The patient's states that the patient may be a little confused recently as well. The patient notes that she had an ultrasound of her kidneys earlier today, but is pending results. She has no history of similar symptoms. She denies vomiting, chest pain , or headaches. The patient states that she feels too weak to walk now. Source of History: patient, spouse/significant other () Onset: Last week Position: other (generalized) Quality: other (weakness) Timing: constant Associated Symptoms: + SOB (occasionally), No headache, No vomiting Note: The patient's states that the patient may be a little confused recently as well. Review of Systems See HPI for pertinent positives & negatives. A total of 10 systems reviewed and were otherwise negative. Past Medical & Surgical Medical Problems: (1) PATY (acute kidney injury) (2) Asthma (3) Bronchitis (4) Falls frequently (5) Gait disorder (6) HTN (hypertension) (7) PNA (pneumonia) (8) Stomach problems (9) Ulcer Surgical Problems: (1) History of cholecystectomy Family History FH: lung disease FHx: heart disease Hypertension Social History Smoking Status: Never Smoker Marital Status: Housing Status: lives with family Occupation Status: retired Current/Historical Medications Scheduled Allopurinol (Zyloprim), 1 TAB PO QAM Amiodarone Hcl (Cordarone), 200 MG PO UD Apixaban (Eliquis), 2.5 MG PO BID Atenolol (Tenormin), 50 MG PO BID Atorvastatin (Lipitor), 20 MG PO QPM Cyanocobalamin (Vitamin B12), 1 TAB PO QAM Diltiazem Hcl Ext Rel (Tiazac), 240 MG PO DAILY Esomeprazole Magnesium (Nexium), 40 MG PO QAM Furosemide (Lasix), 20 MG PO DAILY Gabapentin (Neurontin), 400 MG PO QAM Gabapentin (Neurontin), 800 MG PO HS Multiple Vitamins W/ Minerals (Centrum), 1 TAB PO QAM Nortriptyline (Pamelor), 10 MG PO HS Nortriptyline (Pamelor), 25 MG PO HS Ocuvite Preservision (Ocuvite Preservision), 1 TAB PO AMHS Ranitidine (Zantac), 150 MG PO HS Telmisartan (Micardis), 80 MG PO QAM Scheduled PRN Diclofenac Sodium (Topical) (Voltaren 1% Top Gel), 1 DOSE EXT DAILY PRN for Pain Tapentadol Hcl (Nucynta), 50 MG PO BID PRN for prn Allergies Coded Allergies: Iodine (Verified Allergy, Severe, ANAPHYLAXIS, 07/16/17) Shellfish (Verified Allergy, Severe, ANAPHYLAXIS, 07/16/17) Paroxetine (Verified Allergy, Unknown, GI UPSET, 07/16/17) Physical Exam Vital Signs Date Time Temp Pulse Resp B/P (MAP) Pulse Ox O2 Delivery O2 Flow Rate FiO2 07/22/17 13:56 36.7 74 18 112/77 96 Room Air 07/22/17 13:56 36.7 69 18 112/77 96 Room Air 07/22/17 13:51 Room Air 07/22/17 13:16 90 07/22/17 13:05 36.7 76 20 95/57 98 Room Air Physical Exam Vital signs reviewed. General: Elderly, chronically ill-appearing female, in no significant distress. HEENT: No scleral icterus, PERRLA, neck supple. Atraumatic. Cardiovascular: Irregular rhythm with controlled rate, no extra sounds. Pulmonary: Clear to auscultation bilaterally, normal work of breathing. Abdomen: Obese, soft, nontender, nondistended, positive bowel sounds. Musculoskeletal: Atraumatic, 1+ bilateral pitting pedal edema bilaterally. Neurologic: Patient awake alert and oriented x 3, equal but weak strength in all 4 extremities. Cranial nerves 2 through 12 grossly intact. Patient failed an ambulatory trial at the bedside, buckling both knees. Skin: Warm, dry, no rash Medical Decision & Procedures ER Provider Diagnostic Interpretation: Radiology results as stated below per my review and radiologist interpretation: HEAD WITHOUT CONTRAST (CT) FINDINGS: No acute intracranial hemorrhage, midline shift, intracranial mass, hydrocephalus, territorial ischemia or abnormal extra-axial collection. 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 Mild brain atrophy. Ill-defined areas of low-attenuation within the white matter of the cerebral hemispheres bilaterally suggest mild chronic microvascular ischemic changes. The calvarium is intact. Mild mucosal thickening of the ethmoid air cells. Mastoid air cells and paranasal sinuses appear clear. IMPRESSION: 1. No acute intracranial abnormality identified. 2. 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 The above report was generated using voice recognition software. It may contain grammatical, syntax or spelling errors. Electronically signed by: Manuel Vargas M.D. 07/22/2017 2:19 PM CHEST ONE VIEW PORTABLE FINDINGS: There are low lung volumes. The right lung is clear. The heart remains borderline enlarged. No evidence for pulmonary edema. Stable blunting of the left lateral costophrenic sulcus. No new focal lung consolidations. IMPRESSION: No significant change compared to the prior study. No acute process. Electronically signed by: Lucius Tate M.D. 07/22/2017 2:09 PM LUMBAR SPINE WITHOUT CLINICAL HISTORY: 82 years-old Female presenting with BLE weakness, amb dysfunction, falls. TECHNIQUE: Multidetector CT of the lumbar spine was performed without the use of intravenous contrast. IV contrast: None. A dose lowering technique was used consistent with the principles of ALARA (as low as reasonably achievable). COMPARISON: 04/04/2011. CT DOSE (mGy.cm): The estimated cumulative dose is 540.17 mGycm. FINDINGS: Ross Lift Operator topogram: A certified medical records coder projects over the right lower quadrant. Normal lumbar lordosis. No significant scoliosis. Anterior vertebral body height loss of approximately 25% noted of L1 with concavity of the superior endplate consistent with a compression deformity. No retropulsion of fracture fragments. Remainder of vertebral bodies demonstrate grossly normal height. Intervertebral disc height loss evident at L1-2 and L5-S1 to the greatest degree. Vacuum disc phenomenon noted at several levels. Mild multilevel degenerative changes with osteophytosis. No significant osseous neural foraminal narrowing. No osseous spinal canal narrowing. Transitional lumbosacral anatomy is evident at the right transverse process of L5. Paraspinal soft tissues remarkable for atherosclerosis of the normal caliber aorta. Nonspecific subcutaneous edema noted in the lumbar region. Overall image quality is degraded by patient body habitus limiting the [id number] ratio. IMPRESSION: 1. 25% anterior vertebral body height loss of L1 is stable since 2010. No evidence of acute osseous injury. 2. Multilevel degenerative changes without osseous neural foraminal or spinal canal narrowing allowing for image quality. Electronically signed by: Surjit John M.D. 07/22/2017 4:24 PM Dictated Date/Time: 07/22/2017 4:21 PM Laboratory Results Test 07/22/17 13:32 07/22/17 14:23 RDW Standard Deviation 55.8 fL (36.4-46.3) RDW Coefficient of Variation 15.2 % (11.5-14.5) White Blood Count 5.14 K/uL (4.8-10.8) Red Blood Count 3.42 M/uL (4.2-5.4) Hemoglobin 10.7 g/dL (12.0-16.0) Hematocrit 34.4 % (37-47) Mean Corpuscular Volume 100.6 fL (80-100) Mean Corpuscular Hemoglobin 31.3 pg (25-34) Mean Corpuscular Hemoglobin Concent 31.1 g/dl (32-36) Platelet Count 193 K/uL (130-400) Mean Platelet Volume 9.3 fL (7.4-10.4) Neutrophils (%) (Auto) 69.8 % Lymphocytes (%) (Auto) 14.2 % Monocytes (%) (Auto) 7.8 % Eosinophils (%) (Auto) 7.0 % Basophils (%) (Auto) 0.2 % Neutrophils # (Auto) 3.59 K/uL (1.4-6.5) Lymphocytes # (Auto) 0.73 K/uL (1.2-3.4) Monocytes # (Auto) 0.40 K/uL (0.11-0.59) Eosinophils # (Auto) 0.36 K/uL (0-0.5) Basophils # (Auto) 0.01 K/uL (0-0.2) Immature Granulocyte % (Auto) 1.0 % Immature Granulocyte # (Auto) 0.05 K/uL (0.00-0.02) Total Bilirubin 0.6 mg/dl (0.2-1) Direct Bilirubin 0.2 mg/dl (0-0.2) Aspartate Amino Transf (AST/SGOT) 13 U/L (15-37) Alanine Aminotransferase (ALT/SGPT) 21 U/L (12-78) Alkaline Phosphatase 85 U/L (45-117) Total Protein 7.2 gm/dl (6.4-8.2) Albumin 3.9 gm/dl (3.4-5.0) Thyroid Stimulating Hormone (TSH) 5.700 uIu/ml (0.300-4.500) Urine Color YELLOW Urine Appearance CLEAR (CLEAR) Urine pH 5.0 (4.5-7.5) Urine Specific Wall 1.017 (1.000-1.030) Urine Protein NEG (NEG) Urine Glucose (UA) NEG (NEG) Urine Ketones NEG (NEG) Urine Occult Blood NEG (NEG) Urine Nitrite NEG (NEG) Urine Bilirubin NEG (NEG) Urine Urobilinogen NEG (NEG) Urine Leukocyte Esterase SMALL (NEG) Urine WBC (Auto) 1-5 /hpf (0-5) Urine RBC (Auto) 0-4 /hpf (0-4) Urine Hyaline Casts (Auto) 5-10 /lpf (0-5) Urine Epithelial Cells (Auto) 5-10 /lpf (0-5) Urine Bacteria (Auto) NEG (NEG) Laboratory results per my review. Medications Administered Medications (Trade) Dose Ordered Sig/Herlinda Route Start Time Stop Time Status Last Admin Dose Admin Sodium Chloride 250 ml @ 999 mls/hr Q16M STAT IV 07/22/17 14:21 07/22/17 14:36 DC 07/22/17 14:30 999 MLS/HR ECG Per My Interpretation Indication: palpitations Rate (beats per minute): 76 Rhythm: atrial fibrillation Findings: other (Low voltage. 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 ) ED Course 1319: Past medical records reviewed. The patient was evaluated in room B4B. A complete history and physical examination was performed. 1421: Ordered Sodium Chloride 250 ml @ 999 mls/hr IV. Medical Decision Differential diagnosis: Etiologies such as premature contractions, electrolyte abnormality, cardiac dysrhythmia, thyroid dysfunction, pulmonary embolism, infection, gastrointestinal, as well as others were entertained. This patient was evaluated and appeared to be in no significant distress. Patient's examination is consistent with rate controlled atrial fibrillation. Patient does appear to be somewhat dehydrated by laboratory work, was given 250 mL of IV normal saline solution. CT scan of the head was performed and is fairly unrevealing. The patient got up at the bedside to use the restroom with the nurse however her knees buckled. She did not fall at that time due to assistance however was transferred to a bedside commode. Patient is not able to have an MRI secondary to bladder implants however CT scan of the lumbar spine was obtained. Patient does have a history of a lumbar radiculopathy and pain management epidural injections. This study was obtained and is read as above. There is no significant fracture or cause for the patient's weakness identified. The patient's case was discussed with the hospitalist service due to her inability to return home for safety reasons. An etiology for the patient 's weakness will need to be further evaluated. Patient and are aware of the plan and agree. Medication Reconcilliation Current Medication List: was personally reviewed by me Blood Pressure Screening Patient's blood pressure: Normal blood pressure Blood pressure disposition: Did not require urgent referral Impression Primary Impression: Falls frequently Additional Impressions: Atrial fibrillation with controlled ventricular rate Chronic anticoagulation Scribe Attestation The scribe's documentation has been prepared under my direction and personally reviewed by me in its entirety. I confirm that the note above accurately reflects all work, treatment, procedures, and medical decision making performed by me. Departure Information Referrals William Toussaint M.D. (PCP) Patient Instructions My [facility] Problem Qualifiers
[2017-07-23 18:34] LABS: BLOOD UREA NITROGEN 45 mg/dl (7-18); CALCIUM 8.2 mg/dl (8.5-10.1); CARBON DIOXIDE 23 mmol/L (21-32); CREATININE 2.86 mg/dl (0.60-1.20); GLUCOSE 269 mg/dl (70-99); PHOSPHORUS 4.4 mg/dl (2.5-4.9); POTASSIUM 5.3 mmol/L (3.5-5.1); SODIUM 138 mmol/L (136-145)
[2017-07-23] MEDS ORDERED: SODIUM CHLORIDE 0.9% 1000ML 250 ML IV SCH (19:45)
[2017-07-23] MEDS ORDERED: NORMOSOL R IV SCH (19:45)
[2017-07-23] MEDS ORDERED: SODIUM CHLORIDE 0.9% 250ML 250 ML IV SCH (20:00)
--- NOTE | 2017-07-23 20:27 | Critical Care Consultation ---
Critical Care Consultation Date of Consultation: Jul 23, 2017. Attending Physician: Jhoan Vargas D.O. Reason for Consultation: Symptomatic bradycardia. History of Present Illness Dear Dr. Vargas: Thank you for your kind referral of Mrs. Ann to critical care service. This is 82-year-old female with a history of chronic A. fib, has been diagnosed while she was on a trip to [place], the patient underwent LUNA at that time with cardioversion without success. The patient was started on Eliquis and diltiazem in addition to amiodarone. Patient returned back again to [place] and had an appointment to be seen next week however presented to the hospital with generalized weakness and multiple falls. The patient was found to have A. fib which was somewhat rate controlled however she was admitted to the hospital and why she is in the floor on the bedpan the patient developed significant bradycardia and near syncopal episode. The patient was transferred to the ICU for further management. In the ICU the patient was found to have a blood pressure of 60 systolic. The patient did require placing her on dopamine to raise her blood pressure and heart rate. However her blood pressure remains in the range of 70/40. Dimension, the patient does have a history of chronic kidney disease, borderline diabetes, morbid obesity, lumbar stenosis, A. fib anticoagulated with Eliquis. And just found to have elevated TSH as well. After the dopamine the patient was started on IV fluid to raise her blood pressure however she remains with poorly controlled blood pressure and underwent an a line placement which was dictated separately, and correlate with a blood pressure of 70/40. She was mentating very well and answering questions appropriately. No dizziness was reported. No loss of consciousness either. Family History FH: lung disease FHx: heart disease Hypertension Social History Smoking Status: Never Smoker Marital Status: Housing Status: lives with family Occupation Status: retired Allergies Coded Allergies: Iodine (Verified Allergy, Severe, ANAPHYLAXIS, 07/16/17) Shellfish (Verified Allergy, Severe, ANAPHYLAXIS, 07/16/17) Paroxetine (Verified Allergy, Unknown, GI UPSET, 07/16/17) Home Medications Scheduled Allopurinol (Zyloprim), 1 TAB PO QAM Amiodarone Hcl (Cordarone), 200 MG PO UD Apixaban (Eliquis), 2.5 MG PO BID Atenolol (Tenormin), 50 MG PO BID Atorvastatin (Lipitor), 20 MG PO QPM Cyanocobalamin (Vitamin B12), 1 TAB PO QAM Diltiazem Hcl Ext Rel (Tiazac), 240 MG PO DAILY Esomeprazole Magnesium (Nexium), 40 MG PO QAM Furosemide (Lasix), 20 MG PO DAILY Gabapentin (Neurontin), 400 MG PO QAM Gabapentin (Neurontin), 800 MG PO HS Multiple Vitamins W/ Minerals (Centrum), 1 TAB PO QAM Nortriptyline (Pamelor), 10 MG PO HS Nortriptyline (Pamelor), 25 MG PO HS Ocuvite Preservision (Ocuvite Preservision), 1 TAB PO AMHS Ranitidine (Zantac), 150 MG PO HS Telmisartan (Micardis), 80 MG PO QAM Scheduled PRN Diclofenac Sodium (Topical) (Voltaren 1% Top Gel), 1 DOSE EXT DAILY PRN for Pain Tapentadol Hcl (Nucynta), 50 MG PO BID PRN for prn Current Inpatient Medications Current Inpatient Medications Medications (Trade) Dose Ordered Sig/Herlinda Route Start Time Stop Time Status Last Admin Dose Admin Atorvastatin Calcium (Lipitor Tab) 20 mg QPM PO 07/22/17 21:00 08/21/17 20:59 07/22/17 21:05 20 MG Gabapentin (Neurontin Cap) 400 mg QAM PO 07/23/17 08:00 08/22/17 08:59 07/23/17 08:13 400 MG Gabapentin (Neurontin Cap) 800 mg HS PO 07/22/17 21:00 08/21/17 20:59 07/22/17 21:06 800 MG Nortriptyline HCl (Pamelor Cap) 10 mg HS PO 07/22/17 21:00 08/21/17 20:59 07/22/17 21:06 10 MG Nortriptyline HCl (Pamelor Cap) 25 mg HS PO 07/22/17 21:00 08/21/17 20:59 07/22/17 21:07 25 MG Ranitidine HCl (zANTac TAB) 150 mg HS PO 07/22/17 21:00 08/21/17 20:59 07/22/17 21:05 150 MG Tapentadol (Nucynta Tab) 50 mg BID PRN PO 07/22/17 16:30 08/21/17 16:29 Cyanocobalamin (Vitamin B-12 Tab) 1,000 mcg QAM PO 07/23/17 08:00 08/22/17 08:59 07/23/17 08:12 1,000 MCG Pantoprazole Sodium (Protonix Tab) 40 mg QAM PO 07/23/17 08:00 08/22/17 08:59 07/23/17 08:09 40 MG Acetaminophen (Tylenol Tab) 650 mg Q4H PRN PO 07/22/17 16:30 08/21/17 16:29 07/23/17 15:40 650 MG Al Hydrox/Mg Hydrox/Simethicone (Maalox Max Susp) 15 ml Q4H PRN PO 07/22/17 16:30 08/21/17 16:29 Magnesium Hydroxide (Milk Of Magnesia Susp) 30 ml Q6H PRN PO 07/22/17 16:30 08/21/17 16:29 Polyethylene (Miralax Powder Packet) 17 gm DAILY PRN PO 07/22/17 16:30 08/21/17 16:29 Ondansetron HCl (Zofran Inj) 4 mg Q6H PRN IV 07/22/17 16:30 08/21/17 16:29 07/23/17 15:41 4 MG Miscellaneous (Iv Fluids Completed) 1 ea PRN PRN N/A 07/22/17 18:45 07/22/18 18:44 Insulin Aspart (novoLOG ASPART) SLIDING SCALE G... ACHS SC 07/23/17 16:30 08/22/17 16:29 Glucose (Glucose 40% Gel) 15-30 GRAMS 15 GRAMS... UD PRN PO 07/23/17 15:15 08/22/17 15:14 Glucose (Glucose Chew Tab) 4-8 Tablets 4 Tabl... UD PRN PO 07/23/17 15:15 08/22/17 15:14 Dextrose (Dextrose 50% 50ML Syringe) 25-50ML OF 50% DW IV FOR... UD PRN IV 07/23/17 15:15 08/22/17 15:14 Glucagon (Glucagon Inj) 1 mg UD PRN SQ 07/23/17 15:15 08/22/17 15:14 Dopamine HCl/ Dextrose 250 ml @ 0 mls/hr Q0M PRN IV 07/23/17 17:45 08/22/17 17:44 Sodium Chloride 1,000 ml @ 100 mls/hr Q10H IV 07/23/17 18:00 08/22/17 17:59 Review of Systems Constitutional: No fever, No chills, No sweats, No weight loss, No weakness, No fatigue, No problem reported Eyes: No worsening of vision, No eye pain, No redness, No discharge, No diplopia, No problem reported ENT: No hearing loss, No unusual epistaxis, No nasal symptoms, No sore throat, No tinnitus, No dental problems, No trouble swallowing, No problem reported Respiratory: No cough, No sputum, No wheezing, No shortness of breath, No dyspnea on exertion, No dyspnea at rest, No hemoptysis, No problem reported Cardiovascular: + problem reported (Near syncopal episode.) Abdomen: No pain, No nausea, No vomiting, No diarrhea, No constipation, No GI bleeding, No problem reported Musculoskeletal: + problem reported (Muscular weakness mainly in the lower extremities resulted in multiple falls), No joint pain, No muscle pain, No swelling, No calf pain Neurologic: + problem reported Psychiatric: No depression symptoms, No anhedonism, No anxiety, No insomnia, No substance abuse, No problem reported Hematologic / Lymphatic: No abnormal bleeding/bruising, No clotting problems, No swollen lymph nodes, No night sweats, No problem reported Integumentary: No rash, No itch, No new/changing skin lesions, No color change , No bleeding, No problem reported Physical Exam Date Time Temp Pulse Resp B/P (MAP) Pulse Ox O2 Delivery O2 Flow Rate FiO2 07/23/17 19:00 67 15 62/31 (41) 96 Nasal Cannula 4.0 07/23/17 18:00 69 24 87/55 (66) 90 Nasal Cannula 4.0 07/23/17 17:45 52 24 78/38 (51) 99 Nasal Cannula 2.0 07/23/17 17:30 36.5 52 24 84/51 (62) 100 Nasal Cannula 2.0 07/23/17 16:20 44 18 70/46 (54) 94 Room Air 07/23/17 15:40 Room Air 4/19/18 09:18 Room Air 07/23/17 07:23 36.6 81 18 128/84 (99) 95 Room Air 07/23/17 00:00 Room Air 07/22/17 23:52 36.6 84 18 136/80 (98) 93 Room Air General Appearance: well-appearing, no apparent distress Eyes: EOMI ENT: normal throat exam Neck: normal range of motion Respiratory: breath sounds normal Cardiovasular: regular rate/rhythm, normal S1S2 (Bradycardic.), no M/G/R, irregular rate Abdomen: non tender, no masses Upper Extremities: no edema Lower Extremities: no edema Neuro: alert, oriented x 3, normal motor exam, normal sensation Psychiatric: normal affect Laboratory Results Last 24 Hours Test 07/23/17 11:09 07/23/17 14:39 07/23/17 17:48 Sodium Level 141 mmol/L 138 mmol/L Potassium Level 4.1 mmol/L 5.3 mmol/L Chloride Level 107 mmol/L 105 mmol/L Carbon Dioxide Level 27 mmol/L 23 mmol/L Anion Gap 7.0 mmol/L 10.0 mmol/L Blood Urea Nitrogen 41 mg/dl 45 mg/dl Creatinine 2.05 mg/dl 2.86 mg/dl Est Creatinine Clear Calc Drug Dose 21.8 ml/min 15.6 ml/min Estimated GFR () 25.9 17.3 Estimated GFR (Non- 22.3 14.9 BUN/Creatinine Ratio 20.0 15.9 Random Glucose 139 mg/dl 269 mg/dl Calcium Level 8.9 mg/dl 8.2 mg/dl Bedside Glucose 246 mg/dl White Blood Count 6.32 K/uL Red Blood Count 3.36 M/uL Hemoglobin 10.5 g/dL Hematocrit 34.2 % Mean Corpuscular Volume 101.8 fL Mean Corpuscular Hemoglobin 31.3 pg Mean Corpuscular Hemoglobin Concent 30.7 g/dl RDW Standard Deviation 57.1 fL RDW Coefficient of Variation 15.5 % Platelet Count 169 K/uL Mean Platelet Volume 9.3 fL Phosphorus Level 4.4 mg/dl Magnesium Level 2.2 mg/dl Troponin I < 0.015 ng/ml Diagnostic Results EKG consistent with A. fib with bradycardia. No new imaging. The rest of her labs were reviewed which showed chronic kidney disease slightly worsened than her admission BUN creatinine. Assessment & Plan 1. Profound bradycardia, possibly related to medications including atenolol and amiodarone which she received. 2. Hypertension has been persistent which likely representing poor cardiac output due to bradycardia. 3. Chronic kidney disease, urine output has not improved yet. 4. Borderline diabetes. 5. Lumbar stenosis with multiple fall. 6. Syncope secondary to above. Plan: 1. I will start the patient on dopamine. 2. Continue with IV fluid. 3. Start the patient on levothyroxine. 4. Hold off on amiodarone and beta-blockers. 5. Cardiology consult. 6. Patient is anticoagulated with Eliquis. 7. The patient also saturation is 96% on room air, however I start her on oxygen via nasal cannula for comfort. 8. A line placement. 9. Discussed in details with the staff, critical care time spent with the patient was 45 minutes excluding procedure time. Dimension, the patient is lifetime non-smoker.
--- NOTE | 2017-07-23 20:29 | Procedure Note ---
Procedure Note Procedure Date Jul 23, 2017. Procedure Description Procedure Name: A line placement Procedure time out: side/site verified Consent obtained: written, verbal, emergent consent implied Performed by: attending, resident Indications: diagnostic Contraindications: none Description: The patient was in supine position, right radial A-line, under ultrasound guidance, the procedure was done by Dr. Shook, under strict sterile field, the skin was prepped with chlorhexidine, using ultrasound guidance, one attempt , using Seldinger technique, the line was placed and sutured with 1 suture, covered with surgical dressing, tolerated the procedure very well, no immediate complication. Complications: none Patient tolerated procedure: well
[2017-07-23] MEDS: RANITIDINE HCL 150 MG TAB PO SCH (21:40)
[2017-07-23] MEDS: ATORVASTATIN 20 MG TAB PO SCH (21:40)
[2017-07-23] MEDS: NORTRIPTYLINE HCL 25 MG CAP PO SCH (21:41)
[2017-07-23] MEDS: NORTRIPTYLINE HCL 10 MG CAP PO SCH (21:42)
[2017-07-23] MEDS ORDERED: HYDROCORTISONE IV 50 MG in SYRINGE 0 ML IV ONE (22:30)
[2017-07-23] MEDS ORDERED: LEVOTHYROXINE SODIUM INJ 50 MCG in SYRINGE 0 ML IV SCH (22:45)
[2017-07-24] VITALS (52 sets, daily range): BP systolic 30–162; BP diastolic 28–93; PULSE 84–123; TEMP 36.4–36.8; O2SAT 84–100
[2017-07-24] MEDS: SODIUM CHLORIDE 0.9% 1000ML 1,000 ML IV SCH ×4 (00:18→23:36)
[2017-07-24 06:14] LABS: ALBUMIN 3.5 gm/dl (3.4-5.0); CALCIUM 8.2 mg/dl (8.5-10.1); CREATININE 3.09 mg/dl (0.60-1.20); PHOSPHORUS 3.6 mg/dl (2.5-4.9); TOTAL PROTEIN 6.6 gm/dl (6.4-8.2)
[2017-07-24 06:32] LABS: BASO % 0.1 %; BASO ABS # 0.01 K/uL (0-0.2); EOS % 0.1 %; EOS ABS # 0.01 K/uL (0-0.5); HEMATOCRIT 33.7 % (37-47); HEMOGLOBIN 10.5 g/dL (12.0-16.0); IG# 0.08 K/uL (0.00-0.02); LYMPH % 4.8 %; LYMPH ABS # 0.38 K/uL (1.2-3.4); MEAN CELL VOLUME 99.4 fL (80-100); MEAN PLATELET VOLUME 9.6 fL (7.4-10.4); MONO % 5.7 %; MONO ABS # 0.45 K/uL (0.11-0.59); NEUT % 88.3 %; NEUT ABS # 6.98 K/uL (1.4-6.5); PLATELET COUNT 140 K/uL (130-400); RED CELL DISTRIBUTION WIDTH CV 15.3 % (11.5-14.5); RED CELL DISTRIBUTION WIDTH SD 54.8 fL (36.4-46.3); WHITE BLOOD COUNT 7.91 K/uL (4.8-10.8)
[2017-07-24 06:42] LABS: POTASSIUM 5.3 mmol/L (3.5-5.1)
[2017-07-24 06:52] LABS: MEAN CORPUSCULAR HGB CONC 31.2 g/dl (32-36)
[2017-07-24] MEDS ORDERED: LEVOTHYROXINE SODIUM INJ 50 MCG in SYRINGE 0 ML IV SCH (09:00)
[2017-07-24] MEDS: PANTOprazole SOD 40 MG TAB PO SCH (09:10)
[2017-07-24] MEDS: CYANOCOBALAMIN 500 MCG TAB (VIT B-12) PO SCH (09:11)
[2017-07-24] MEDS: GABAPENTIN 400 MG CAP PO SCH (09:11)
[2017-07-24] MEDS: INSULIN ASPART 100 UNITS/ML 3 ML PEN SC SCH ×4 (09:19→21:00)
--- NOTE | 2017-07-24 10:02 | Clinical Documentation Query ---
CLINICAL DOCUMENTATION QUERY 82 yo female admitted with tachy/faby syndrome and history of CKD 3. Creatinine is 3.09 from 1.58 on 07/03/17. GFR 13.6 from 30.6 on same date. In your clinical opinion is this patient being managed for: ( x ) Acute kidney failure ( ) Not Agree ( ) Other explanation of clinical findings (Please Explain) ( ) Unable to determine (Please Define) ( ) Need to Discuss The medical record reflects the following clinical findings, treatment, and risk factors. Clinical Indicators: As above Treatment: Serial PRPs, IV hydration Risk Factors: CKD 3, HTN, AF Please clarify and document your clinical opinion in the progress notes and discharge summary. Terms such as "probable", "suspected", "likely", "questionable", "possible", or "still to be ruled out" are acceptable. IF IN AGREEMENT, YOU MUST DOCUMENT ABOVE DIAGNOSTIC STATEMENT IN DAILY PROGRESS NOTES AND DISCHARGE SUMMARY. This document is not part of the patient's record. Thank You, Elvi Sebastian RN [phone]
--- NOTE | 2017-07-24 10:42 | Nephrology Consultation ---
Nephrology Consultation Date & Providers Date of Consultation: Jul 24, 2017. Primary Care Provider: William Toussaint M.D. Referring Provider: Reason for Consultation Evaluation and management for acute kidney injury and hyperkalemia. History of Present Illness Tiffanie is a 82-year-old female with past medical history significant for hypertension, stage 3 chronic kidney disease and recent diagnosis of atrial fibrillation admitted to the hospital with generalized weakness, fall, bradycardia and hypotension. Electronic medical records including labs and imaging are reviewed in detail during patient's visit. Patient's and son was at bedside during the visit. Tiffanie has history of stage 3 chronic kidney disease most likely secondary to hypertensive nephropathy vs microvascular disease, baseline creatinine has been around 1.3-1.6. Urinalysis was negative for proteinuria, hematuria pyuria. She has hypertension seems to be well controlled, has been on telmisartan and atenolol. DM with no retinopathy or proteinuria. Previously was on metformin which was discontinued and A1c has been less than 6. Recently she was diagnosed with atrial fibrillation while in [place], had cardioversion without success. She was started on Eliquis and amiodarone. She was also started on Lasix 20 milligram recently. She came back to [facility] 2/3 weeks ago and has been seeing her PCP and cardiology. She was becoming progressively weak over last 2/3 weeks and had multiple fall at home without significant injury. Presented to ER yesterday after she had 3 falls at home,was becoming very weak. In ER she was found to be significantly bradycardic and hypotensive. Workup including CT head was negative for any injury. Atenolol was stopped and she was started on dopamine however she remained persistently hypotensive. Remain in AFib although heart rate currently improved. Renal function has been slowly worsening over last to 3 weeks creatinine was 1.8 on 06/16/2017 and was being followed as an outpatient and renal ultrasound was ordered. Renal function continued to worsen, on 07/22/17 cr was 2.8 and a renal ultrasound showed bilateral relatively atrophic kidneys right kidney 8.2 and left kidney 9.0 cm. On admission creatinine was 2.1 which rapidly worsened to 3.1 over last 24 hours , has hyperkalemia, K was 5.3. Urinalysis was unremarkable. CBC showed anemia but no leukocytosis. She is afebrile. Urine output has been decent. Complaining of some myoclonic jerks in her upper extremities which started 2-3 weeks ago. The she has been on gabapentin 1200 milligram for neuropathy pain. Allergies Coded Allergies: Iodine (Verified Allergy, Severe, ANAPHYLAXIS, 07/16/17) Shellfish (Verified Allergy, Severe, ANAPHYLAXIS, 07/16/17) Paroxetine (Verified Allergy, Unknown, GI UPSET, 07/16/17) Inpatient Medications Current Inpatient Medications Medications (Trade) Dose Ordered Sig/Herlinda Route Start Time Stop Time Status Last Admin Dose Admin Atorvastatin Calcium (Lipitor Tab) 20 mg QPM PO 07/22/17 21:00 08/21/17 20:59 07/23/17 21:40 20 MG Gabapentin (Neurontin Cap) 400 mg QAM PO 07/23/17 08:00 08/22/17 08:59 07/23/17 08:13 400 MG Nortriptyline HCl (Pamelor Cap) 10 mg HS PO 07/22/17 21:00 08/21/17 20:59 07/23/17 21:42 10 MG Nortriptyline HCl (Pamelor Cap) 25 mg HS PO 07/22/17 21:00 08/21/17 20:59 07/23/17 21:41 25 MG Ranitidine HCl (zANTac TAB) 150 mg HS PO 07/22/17 21:00 08/21/17 20:59 07/23/17 21:40 150 MG Tapentadol (Nucynta Tab) 50 mg BID PRN PO 07/22/17 16:30 08/21/17 16:29 Cyanocobalamin (Vitamin B-12 Tab) 1,000 mcg QAM PO 07/23/17 08:00 08/22/17 08:59 07/23/17 08:12 1,000 MCG Pantoprazole Sodium (Protonix Tab) 40 mg QAM PO 07/23/17 08:00 08/22/17 08:59 07/23/17 08:09 40 MG Acetaminophen (Tylenol Tab) 650 mg Q4H PRN PO 07/22/17 16:30 08/21/17 16:29 07/23/17 15:40 650 MG Al Hydrox/Mg Hydrox/Simethicone (Maalox Max Susp) 15 ml Q4H PRN PO 07/22/17 16:30 08/21/17 16:29 Magnesium Hydroxide (Milk Of Magnesia Susp) 30 ml Q6H PRN PO 07/22/17 16:30 08/21/17 16:29 Polyethylene (Miralax Powder Packet) 17 gm DAILY PRN PO 07/22/17 16:30 08/21/17 16:29 Ondansetron HCl (Zofran Inj) 4 mg Q6H PRN IV 07/22/17 16:30 08/21/17 16:29 07/23/17 15:41 4 MG Miscellaneous (Iv Fluids Completed) 1 ea PRN PRN N/A 07/22/17 18:45 07/22/18 18:44 Insulin Aspart (novoLOG ASPART) SLIDING SCALE G... ACHS SC 07/23/17 16:30 08/22/17 16:29 07/23/17 21:47 1 UNITS Glucose (Glucose 40% Gel) 15-30 GRAMS 15 GRAMS... UD PRN PO 07/23/17 15:15 08/22/17 15:14 Glucose (Glucose Chew Tab) 4-8 Tablets 4 Tabl... UD PRN PO 07/23/17 15:15 08/22/17 15:14 Dextrose (Dextrose 50% 50ML Syringe) 25-50ML OF 50% DW IV FOR... UD PRN IV 07/23/17 15:15 08/22/17 15:14 Glucagon (Glucagon Inj) 1 mg UD PRN SQ 07/23/17 15:15 08/22/17 15:14 Dopamine HCl/ Dextrose 250 ml @ 0 mls/hr Q0M PRN IV 07/23/17 17:45 08/22/17 17:44 Sodium Chloride 1,000 ml @ 100 mls/hr Q10H IV 07/23/17 18:00 08/22/17 17:59 07/24/17 00:18 100 MLS/HR Gabapentin (Neurontin Cap) 200 mg HS PO 07/24/17 21:00 08/21/17 20:59 UNV Family History FH: lung disease FHx: heart disease Hypertension Social History Smoking Status: Never Smoker Marital Status: Occupation: retired Review of Systems A complete review of systems was performed. Pertinent positives are noted above. All other systems are negative. Physical Exam Date Time Temp Pulse Resp B/P (MAP) Pulse Ox O2 Delivery O2 Flow Rate FiO2 07/24/17 06:01 92 13 85/58 (67) 100 Nasal Cannula 2.0 07/24/17 05:01 84 84/57 (66) 99 Nasal Cannula 3.0 07/24/17 04:01 36.6 96 87/60 (69) 100 Nasal Cannula 3.0 07/24/17 04:00 Nasal Cannula 2.0 07/24/17 03:01 90 91/63 (72) 100 Nasal Cannula 3.0 07/24/17 03:00 90 86/59 (68) 98 Nasal Cannula 4.0 07/24/17 02:00 100 85/57 (66) 96 Nasal Cannula 4.0 07/24/17 01:00 88 71/48 (56) 100 Nasal Cannula 4.0 07/24/17 00:00 36.5 89 80/45 (57) 84 Nasal Cannula 4.0 07/23/17 23:59 Nasal Cannula 2.0 07/23/17 23:00 79 79/44 (56) 100 Nasal Cannula 4.0 07/23/17 22:00 76 76/45 (55) 98 Nasal Cannula 4.0 07/23/17 21:00 87 22 69/40 (50) 85 Nasal Cannula 4.0 07/23/17 20:00 36.4 87 15 69/43 (52) 97 Nasal Cannula 4.0 07/23/17 20:00 Nasal Cannula 2.0 07/23/17 19:00 67 15 62/31 (41) 96 Nasal Cannula 4.0 07/23/17 18:00 69 24 87/55 (66) 90 Nasal Cannula 4.0 07/23/17 17:45 52 24 78/38 (51) 99 Nasal Cannula 2.0 07/23/17 17:30 36.5 52 24 84/51 (62) 100 Nasal Cannula 2.0 07/23/17 16:20 44 18 70/46 (54) 94 Room Air 07/23/17 15:40 Room Air 07/23/17 09:18 Room Air GENERAL: Elderly female, AAA x 3, pleasant, not in any distress. HEENT: Atraumatic, normocephalic. NECK: Supple, no JVD, no carotid bruit appreciated. ENT: No sinus tenderness MOUTH and THROAT: Moist oral mucosa, no oral ulcer or pharyngeal erythema RESPIRATORY: clear to auscultation bilaterally, no wheezes or rales. CARDIOVASCULAR: S1, S2 normal, rate rhythm regular. ABDOMEN: Soft, nontender, positive bowel sound. MUSCULOSKELETAL: No CVA tenderness. No joint swelling, erythema or tenderness. Normal range of motion. SKIN: No skin rash EXTREMITY: trace b/l lower extremity edema NEURO: No gross focal neurological deficit, speech fluent. PSYCHIATRY: Normal mood and judgment Laboratory Results Last 24 Hours Test 07/23/17 11:09 07/23/17 14:39 07/23/17 17:48 07/23/17 21:35 Sodium Level 141 mmol/L 138 mmol/L Potassium Level 4.1 mmol/L 5.3 mmol/L Chloride Level 107 mmol/L 105 mmol/L Carbon Dioxide Level 27 mmol/L 23 mmol/L Anion Gap 7.0 mmol/L 10.0 mmol/L Blood Urea Nitrogen 41 mg/dl 45 mg/dl Creatinine 2.05 mg/dl 2.86 mg/dl Est Creatinine Clear Calc Drug Dose 21.8 ml/min 15.6 ml/min Estimated GFR () 25.9 17.3 Estimated GFR (Non- 22.3 14.9 BUN/Creatinine Ratio 20.0 15.9 Random Glucose 139 mg/dl 269 mg/dl Calcium Level 8.9 mg/dl 8.2 mg/dl Bedside Glucose 246 mg/dl 184 mg/dl White Blood Count 6.32 K/uL Red Blood Count 3.36 M/uL Hemoglobin 10.5 g/dL Hematocrit 34.2 % Mean Corpuscular Volume 101.8 fL Mean Corpuscular Hemoglobin 31.3 pg Mean Corpuscular Hemoglobin Concent 30.7 g/dl RDW Standard Deviation 57.1 fL RDW Coefficient of Variation 15.5 % Platelet Count 169 K/uL Mean Platelet Volume 9.3 fL Phosphorus Level 4.4 mg/dl Magnesium Level 2.2 mg/dl Troponin I < 0.015 ng/ml Test 07/24/17 05:06 07/24/17 06:12 07/24/17 06:22 07/24/17 06:45 Sodium Level 135 mmol/L Potassium Level mmol/L 5.3 mmol/L Chloride Level 107 mmol/L Carbon Dioxide Level 26 mmol/L Anion Gap 2.0 mmol/L Blood Urea Nitrogen 49 mg/dl Creatinine 3.09 mg/dl Est Creatinine Clear Calc Drug Dose 14.5 ml/min Estimated GFR () 15.8 Estimated GFR (Non- 13.6 BUN/Creatinine Ratio 15.9 Random Glucose 181 mg/dl Calcium Level 8.2 mg/dl Phosphorus Level 3.6 mg/dl Magnesium Level mg/dl 2.1 mg/dl Total Bilirubin 1.1 mg/dl Direct Bilirubin mg/dl 0.4 mg/dl Aspartate Amino Transf (AST/SGOT) U/L 402 U/L Alanine Aminotransferase (ALT/SGPT) 260 U/L Alkaline Phosphatase 173 U/L Total Protein 6.6 gm/dl Albumin 3.5 gm/dl White Blood Count 7.91 K/uL Red Blood Count 3.39 M/uL Hemoglobin 10.5 g/dL Hematocrit 33.7 % Mean Corpuscular Volume 99.4 fL Mean Corpuscular Hemoglobin 31.0 pg Mean Corpuscular Hemoglobin Concent 31.2 g/dl Platelet Count 140 K/uL Mean Platelet Volume 9.6 fL Neutrophils (%) (Auto) 88.3 % Lymphocytes (%) (Auto) 4.8 % Monocytes (%) (Auto) 5.7 % Eosinophils (%) (Auto) 0.1 % Basophils (%) (Auto) 0.1 % Neutrophils # (Auto) 6.98 K/uL Lymphocytes # (Auto) 0.38 K/uL Monocytes # (Auto) 0.45 K/uL Eosinophils # (Auto) 0.01 K/uL Basophils # (Auto) 0.01 K/uL RDW Standard Deviation 54.8 fL RDW Coefficient of Variation 15.3 % Immature Granulocyte % (Auto) 1.0 % Immature Granulocyte # (Auto) 0.08 K/uL Bedside Glucose 188 mg/dl Impression (1) PATY (acute kidney injury) (2) Hyperkalemia (3) Anemia (4) Hypertension (5) Atrial fibrillation with controlled ventricular rate (6) Falls frequently 82 y o female with stage III CKD, baseline creatinine 1.3-1.6, admitted to the hospital with generalized weakness, bradycardia and persistent hypotension. On admission she was found to have acute kidney injury creatinine 2.1 which rapidly worsened over last 24 hours to 3.1 associated with hyperkalemia. Bradycardia was most likely related to medications including atenolol which she has been on for HTN and AFib. Unclear whether acute kidney injury is the inciting event which lead to bradycardia with beta-abilio or bradycardia and hypotension is the leading cause for ATN. She has been on IV fluid since admission without any significant improvement in renal function. Uunderlying CKD could be secondary to hypertensive nephropathy , microvascular disease or chronic tubular interstitial fibrosis. Recommendations --monitor renal function electrolytes closely, no other workup indicated at this time as she had renal ultrasound 2 days ago, urinalysis was otherwise benign and clinical scenario strongly suggest ATN --need to be cautious with volume status, would DC IV fluid and continue on pressor --repeat K this afternoon, Kayexalate 30 gram p.o. p.r.n. potassium more than 5.4 --low-potassium diet --dc gabapentin for now --avoid all NSAIDs --Discussed in detail with the patient and family, briefly mentioned about possible need for CLAIMS ADJUSTER if renal function progressively worsen, worsened volume status or electrolyte abnormality Thank you for allowing me to participate in your patient's care. It was a pleasure to see
--- NOTE | 2017-07-24 11:17 | CARDIOLOGY CONSULTATION ---
DATE OF CONSULTATION: 07/24/2017 REQUESTING: Jhoan Vargas DO FREIGHT CONDUCTOR: Freddy Venegas DO, [facility]. REASON FOR CONSULTATION: Atrial fibrillation, bradycardia, hypotension. Dear Dr. Vargas: Thank you for requesting a cardiology consultation on Tiffanie with regards to her episode yesterday of atrial fibrillation with a slow ventricular response and associated hypotension. She was admitted with multiple falls and inability to stand, just feeling like her legs were collapsing out from her. I had seen her as an outpatient. They just returned from [place]. There she was found to have atrial fibrillation as a new diagnosis. There was a LUNA cardioversion that was performed. She remained in sinus rhythm for only about an hour or so and then converted back to atrial fibrillation. In [place], she underwent a LUNA, transthoracic echo, and nuclear stress testing. We have been unable to get any of those records. There is a handwritten note from the LUNA suggesting she had moderate mitral regurgitation with [id number] tricuspid regurgitation, moderate biatrial enlargement, and marked atherosclerosis of the descending thoracic aorta. Yesterday, she was bradycardic and hypotensive. The documented systolic blood pressure was in the 40s, although she notes she was mentating which would be virtually impossible to have a pressure that low and still be mentating. She was nauseous and did not feel well. She was transferred to the ICU where an A-line was placed. She was given to get aggressive hydration. She was found to have acute kidney injury on chronic kidney disease, as her baseline creatinine is 1.5 and her creatinine this morning is 3.0. She is making urine. In the ICU, she is on 5 mcg of dopamine. She denies any chest pain, chest pressure, chest heaviness, shortness of breath, PND, orthopnea. She denies any fevers or chills or sweats or cough or significant dysuria. She denies any dark stools or black stools to suggest bleeding. This morning she is feeling better. Her heart rates have improved. She denies taking steroids at home. She does note that she gets spinal injections that has steroids. REVIEW OF SYSTEMS: The rest of review of system otherwise negative. FAMILY HISTORY: Mom at 61 of a heart attack. Dad at 64 of heart attack. SOCIAL HISTORY: Denies any tobacco or alcohol. She worked at [employer] in the [employer]. PAST MEDICAL HISTORY: 1. 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 2. Atrial fibrillation on anticoagulation. 3. Moderate mitral regurgitation. 4. Obstructive sleep apnea, not using CPAP. 5. Mild pulmonary hypertension. 6. Diabetes mellitus type 2. 7. Systemic hypertension. 8. Obesity. 9. Spinal stenosis. 10. Hemoccult positive in [place]. 11. Gout. 12. Hyperlipidemia. 13. Peripheral neuropathy. ALLERGIES: IVP AND SHELLFISH. MEDICATIONS: Reviewed in electronic medical record. PHYSICAL EXAMINATION: GENERAL: She is awake, alert, oriented x3, although her blood pressure is low by A-line 77/58, her pulse ox is 99%. Her heart rate is 88 and she is not lightheaded or dizzy. HEENT: 1+ carotid upstrokes, no evidence of carotid bruits. Venous pressure cannot be assessed. Her sclerae was anicteric. Her hearing is normal. LUNGS: Clear to auscultation bilaterally. No rales, rhonchi, or wheezing. HEART: Irregular rate and rhythm. There is a soft holosystolic murmur at the apex. ABDOMEN: Soft, nontender, nondistended. Positive bowel sounds. EXTREMITIES: No clubbing, cyanosis. Mild bilateral lower extremity edema, which is improved compared to her outpatient exam, where she had moderate pitting edema. PSYCHIATRIC: Affect appeared appropriate. DIAGNOSTIC STUDIES: Echocardiogram personally reviewed, normal LV size and function, moderate mitral regurgitation, [id number] tricuspid regurgitation, mild pulmonary hypertension, dilated IVC, which does not collapse with respiration. Her right ventricle was dilated, but RV function appeared preserved. Chest x-ray, no active disease. Lumbar spine CT, multilevel degenerative changes but no evidence of foraminal or spinal canal narrowing. LABORATORY STUDIES: White count is 7.91, hemoglobin 12.5, platelet count of 140. Sodium 135, potassium 5.3, BUN 49, creatinine 3.09. Mag is 2.1. Her AST is 260, ALT is 173. Her troponin is negative. Her TSH was 5.7. DIAGNOSTIC STUDIES: EKG: Atrial fibrillation with a controlled ventricular response, nonspecific T-wave changes, low voltage QRS. IMPRESSION: 1. Acute hypotension. 2. Atrial fibrillation with a period of bradycardia yesterday. 3. Normal left ventricular size and function. 4. At least moderate biatrial enlargement. 5. Mild pulmonary hypertension with moderate-to severe tricuspid regurgitation. 6. Significant leg weakness and ambulatory dysfunction. 7. Obstructive sleep apnea, not using CPAP. 8. Diabetes mellitus type 2. As was discussed with Dr. Vargas, as well as the sericulturist service, it is unclear as to why she is so high hypotensive with the exception of potentially being incredibly dry. She was not on high dose diuretics as an outpatient as she was only on Lasix 20 mg daily. Her weight had not substantially changed as an outpatient. She is receiving IV hydration. I would recommend a cortisol level just to make sure she is not adrenally insufficient. I would manually check blood pressures in both arms to make sure she does not have a subclavian stenosis causing a low blood pressure. Her radial artery pressure tracings though look relatively normal and are not blunted to suggest significant subclavian stenosis. At this point, other possibilities include atenolol, which is renally excreted and now she is in acute renal failure may be contributing to ongoing hypotension. Her atenolol is on hold as well as her Benicar, Cardizem, and amiodarone. Long-term, I would not reinitiate amiodarone. 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 When her blood pressures are better, I would use metoprolol instead of atenolol as it is not renally excreted and we can make a decision whether she needs diltiazem or not. As an outpatient, I was reducing her diltiazem dose given the fact that her heart rate was controlled. She does not need a pacemaker at this point. Once her blood pressure is stable and we are sure there is no GI source of bleeding, her anticoagulation can be reinitiated. There is nothing to suggest an acute coronary syndrome. She had a nuclear stress test in [place], for which we cannot get the results, but they did not intervene or act upon that to suggest that she had severe obstructive coronary artery disease. There is a mention on her LUNA from [place] that she had significant atherosclerotic disease of her aorta. On the CAT scan of her head, it does suggest she has had a prior infarct whether this is atheroembolic or just related to vascular disease is not completely clear given the fact she has had a stroke, though she should be on anticoagulation long-term. All this was discussed with the hospitalist as well as the sericulturist. We will continue to follow with you. Dr. Rodsa of [facility] will follow her over the weekend. Thank you for allowing us to participate in her care.
[2017-07-24] MEDS ORDERED: ATROPINE SULFATE 0.1 MG/ML 10 ML SYR IV ONE (12:45)
[2017-07-24] MEDS ORDERED: SODIUM CHLORIDE 0.9% 10ML FLUSH IV ONE (12:45)
[2017-07-24 13:39] LABS: CALCIUM 7.7 mg/dl (8.5-10.1); CREATININE 2.83 mg/dl (0.60-1.20)
--- NOTE | 2017-07-24 14:16 | Progress Note ---
Subjective Date of Service: Jul 24, 2017. Subjective Pt evaluation today including: conversation w/ patient, conversation w/ family , physical exam, lab review, review of studies, conversation w/ contaminated land consultant, review of inpatient medication list Pain: denies pain PO Intake: adequate Voiding: del rosario catheter in place patient feeling a little better this morning, still feels weak no chest pain or pressure, still some slight dyspnea she was maintained on Dopamine drip overnight, BP improved and HR no longer bradycardic long discussion with Dr. Venegas, he viewed the echo, LV EF is preserved, biatrial enlargement, RV large but anh well no evidence of UT with normal EKG and negative troponin blood pressures checked in both arms, equal no evidence of bleeding he suggested cortisol level and made recommendations for atrial fibrillation going forward discussed with Dr. Galaviz, she is following volume status and electrolytes she discussed with patient and family that she may need TOOL DESIGNER discussed with Dr. Mcgrath, managing patient on Dopamine will try to wean as tolerated unclear etiology of her hypotension reviewed labs, Cr up to 3.0 today, down slightly further in the afternoon Hb stable at 10, normal WBC K was 5.3 Problem List Medical Problems: (1) Afib Status: Acute (2) Atrial fibrillation with controlled ventricular rate Status: Acute (3) Chronic anticoagulation Status: Acute (4) Fluid overload Status: Acute (5) Shortness of breath Status: Acute Review of Systems Constitutional: + weakness, + fatigue Neurologic: + weakness (legs and arms) All Other Systems: Reviewed and Negative Medications Current Inpatient Medications Medications (Trade) Dose Ordered Sig/Herlinda Route Start Time Stop Time Status Last Admin Dose Admin Atorvastatin Calcium (Lipitor Tab) 20 mg QPM PO 07/22/17 21:00 08/21/17 20:59 07/23/17 21:40 20 MG Nortriptyline HCl (Pamelor Cap) 10 mg HS PO 07/22/17 21:00 08/21/17 20:59 07/23/17 21:42 10 MG Nortriptyline HCl (Pamelor Cap) 25 mg HS PO 07/22/17 21:00 08/21/17 20:59 07/23/17 21:41 25 MG Ranitidine HCl (zANTac TAB) 150 mg HS PO 07/22/17 21:00 08/21/17 20:59 07/23/17 21:40 150 MG Tapentadol (Nucynta Tab) 50 mg BID PRN PO 07/22/17 16:30 08/21/17 16:29 Cyanocobalamin (Vitamin B-12 Tab) 1,000 mcg QAM PO 07/23/17 08:00 08/22/17 08:59 07/24/17 09:11 1,000 MCG Pantoprazole Sodium (Protonix Tab) 40 mg QAM PO 07/23/17 08:00 08/22/17 08:59 07/24/17 09:10 40 MG Acetaminophen (Tylenol Tab) 650 mg Q4H PRN PO 07/22/17 16:30 08/21/17 16:29 07/23/17 15:40 650 MG Al Hydrox/Mg Hydrox/Simethicone (Maalox Max Susp) 15 ml Q4H PRN PO 07/22/17 16:30 08/21/17 16:29 Magnesium Hydroxide (Milk Of Magnesia Susp) 30 ml Q6H PRN PO 07/22/17 16:30 08/21/17 16:29 Polyethylene (Miralax Powder Packet) 17 gm DAILY PRN PO 07/22/17 16:30 08/21/17 16:29 Ondansetron HCl (Zofran Inj) 4 mg Q6H PRN IV 07/22/17 16:30 08/21/17 16:29 07/23/17 15:41 4 MG Miscellaneous (Iv Fluids Completed) 1 ea PRN PRN N/A 07/22/17 18:45 07/22/18 18:44 Insulin Aspart (novoLOG ASPART) SLIDING SCALE G... ACHS SC 07/23/17 16:30 08/22/17 16:29 07/24/17 12:45 3 UNITS Glucose (Glucose 40% Gel) 15-30 GRAMS 15 GRAMS... UD PRN PO 07/23/17 15:15 08/22/17 15:14 Glucose (Glucose Chew Tab) 4-8 Tablets 4 Tabl... UD PRN PO 07/23/17 15:15 08/22/17 15:14 Dextrose (Dextrose 50% 50ML Syringe) 25-50ML OF 50% DW IV FOR... UD PRN IV 07/23/17 15:15 5/19/18 15:14 Glucagon (Glucagon Inj) 1 mg UD PRN SQ 07/23/17 15:15 08/22/17 15:14 Dopamine HCl/ Dextrose 250 ml @ 0 mls/hr Q0M PRN IV 07/23/17 17:45 08/22/17 17:44 07/24/17 08:59 16 MLS/HR Sodium Chloride 1,000 ml @ 100 mls/hr Q10H IV 07/23/17 18:00 08/22/17 17:59 07/24/17 09:01 100 MLS/HR Objective Vital Signs Date Time Temp Pulse Resp B/P (MAP) Pulse Ox O2 Delivery O2 Flow Rate FiO2 07/24/17 08:45 88 77/58 (64) 99 07/24/17 08:30 Nasal Cannula 2.0 07/24/17 08:30 93 73/55 (61) 98 07/24/17 08:15 92 81/62 (68) 99 07/24/17 08:00 36.8 07/24/17 08:00 84 20 71/53 (59) 99 Nasal Cannula 2.0 07/24/17 07:45 87 68/48 (55) 97 07/24/17 07:30 91 72/58 (63) 99 07/24/17 07:15 85 80/57 (65) 96 07/24/17 07:00 92 20 82/60 (67) 98 07/24/17 06:01 92 13 85/58 (67) 100 Nasal Cannula 2.0 07/24/17 05:01 84 84/57 (66) 99 Nasal Cannula 3.0 07/24/17 04:01 36.6 96 87/60 (69) 100 Nasal Cannula 3.0 07/24/17 04:00 Nasal Cannula 2.0 07/24/17 03:01 90 91/63 (72) 100 Nasal Cannula 3.0 07/24/17 03:00 90 86/59 (68) 98 Nasal Cannula 4.0 07/24/17 02:00 100 85/57 (66) 96 Nasal Cannula 4.0 07/24/17 01:00 88 71/48 (56) 100 Nasal Cannula 4.0 07/24/17 00:00 36.5 89 80/45 (57) 84 Nasal Cannula 4.0 07/23/17 23:59 Nasal Cannula 2.0 07/23/17 23:00 79 79/44 (56) 100 Nasal Cannula 4.0 07/23/17 22:00 76 76/45 (55) 98 Nasal Cannula 4.0 07/23/17 21:00 87 22 69/40 (50) 85 Nasal Cannula 4.0 07/23/17 20:00 36.4 87 15 69/43 (52) 97 Nasal Cannula 4.0 07/23/17 20:00 Nasal Cannula 2.0 07/23/17 19:00 67 15 62/31 (41) 96 Nasal Cannula 4.0 07/23/17 18:00 69 24 87/55 (66) 90 Nasal Cannula 4.0 07/23/17 17:45 52 24 78/38 (51) 99 Nasal Cannula 2.0 07/23/17 17:30 36.5 52 24 84/51 (62) 100 Nasal Cannula 2.0 07/23/17 16:20 44 18 70/46 (54) 94 Room Air 07/23/17 15:40 Room Air Physical Exam General Appearance: WD/WN, no apparent distress Eyes: normal inspection, EOMI, sclerae normal ENT: normal ENT inspection, hearing grossly normal, pharynx normal Neck: supple, no adenopathy, no JVD, trachea midline Respiratory/Chest: chest non-tender, lungs clear, normal breath sounds, no respiratory distress, no accessory muscle use Cardiovascular: no edema, no gallop, no JVD, no murmur, + irregularly irregular Abdomen: normal bowel sounds, non tender, soft, no organomegaly Extremities: normal range of motion, non-tender, normal inspection, no pedal edema, no calf tenderness, pelvis stable Neurologic/Psychiatric: verifier II-XII nml as tested, alert, normal mood/affect, oriented x 3, + motor weakness (generalized) Skin: normal color, warm/dry, no rash Lymphatic: no adenopathy Laboratory Results Last 24 Hours Test 07/23/17 14:39 07/23/17 17:48 07/23/17 21:35 07/24/17 05:06 Bedside Glucose 246 mg/dl 184 mg/dl White Blood Count 6.32 K/uL Red Blood Count 3.36 M/uL Hemoglobin 10.5 g/dL Hematocrit 34.2 % Mean Corpuscular Volume 101.8 fL Mean Corpuscular Hemoglobin 31.3 pg Mean Corpuscular Hemoglobin Concent 30.7 g/dl RDW Standard Deviation 57.1 fL RDW Coefficient of Variation 15.5 % Platelet Count 169 K/uL Mean Platelet Volume 9.3 fL Sodium Level 138 mmol/L 135 mmol/L Potassium Level 5.3 mmol/L mmol/L Chloride Level 105 mmol/L 107 mmol/L Carbon Dioxide Level 23 mmol/L 26 mmol/L Anion Gap 10.0 mmol/L 2.0 mmol/L Blood Urea Nitrogen 45 mg/dl 49 mg/dl Creatinine 2.86 mg/dl 3.09 mg/dl Est Creatinine Clear Calc Drug Dose 15.6 ml/min 14.5 ml/min Estimated GFR () 17.3 15.8 Estimated GFR (Non- 14.9 13.6 BUN/Creatinine Ratio 15.9 15.9 Random Glucose 269 mg/dl 181 mg/dl Calcium Level 8.2 mg/dl 8.2 mg/dl Phosphorus Level 4.4 mg/dl 3.6 mg/dl Magnesium Level 2.2 mg/dl mg/dl Troponin I < 0.015 ng/ml Total Bilirubin 1.1 mg/dl Direct Bilirubin mg/dl Aspartate Amino Transf (AST/SGOT) U/L Alanine Aminotransferase (ALT/SGPT) 260 U/L Alkaline Phosphatase 173 U/L Total Protein 6.6 gm/dl Albumin 3.5 gm/dl Test 07/24/17 06:12 07/24/17 06:22 07/24/17 06:45 07/24/17 10:27 White Blood Count 7.91 K/uL Red Blood Count 3.39 M/uL Hemoglobin 10.5 g/dL Hematocrit 33.7 % Mean Corpuscular Volume 99.4 fL Mean Corpuscular Hemoglobin 31.0 pg Mean Corpuscular Hemoglobin Concent 31.2 g/dl Platelet Count 140 K/uL Mean Platelet Volume 9.6 fL Neutrophils (%) (Auto) 88.3 % Lymphocytes (%) (Auto) 4.8 % Monocytes (%) (Auto) 5.7 % Eosinophils (%) (Auto) 0.1 % Basophils (%) (Auto) 0.1 % Neutrophils # (Auto) 6.98 K/uL Lymphocytes # (Auto) 0.38 K/uL Monocytes # (Auto) 0.45 K/uL Eosinophils # (Auto) 0.01 K/uL Basophils # (Auto) 0.01 K/uL RDW Standard Deviation 54.8 fL RDW Coefficient of Variation 15.3 % Immature Granulocyte % (Auto) 1.0 % Immature Granulocyte # (Auto) 0.08 K/uL Potassium Level 5.3 mmol/L Magnesium Level 2.1 mg/dl Direct Bilirubin 0.4 mg/dl Aspartate Amino Transf (AST/SGOT) 402 U/L Bedside Glucose 188 mg/dl Random Cortisol 17.76 mcg/dl Test 07/24/17 13:08 07/24/17 13:47 Sodium Level 137 mmol/L Potassium Level mmol/L Chloride Level 107 mmol/L Carbon Dioxide Level 22 mmol/L Anion Gap 8.0 mmol/L Blood Urea Nitrogen 49 mg/dl Creatinine 2.83 mg/dl Est Creatinine Clear Calc Drug Dose 16.2 ml/min Estimated GFR () 17.5 Estimated GFR (Non- 15.1 BUN/Creatinine Ratio 17.2 Random Glucose 152 mg/dl Calcium Level 7.7 mg/dl Assessment and Plan 82 yo female with weakness, new diagnosis of atrial fibrillation, now with bradycardia and hypotension - Bradycardia and hypotension: 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 Venegas following EKG showed no ST elevations hold Eliquis for now until sure she does not require a pacemaker, make sure there is no bleeding random cortisol level normal other etiologies for hypotension are unlikely, no evidence of bleeding, Hb 10 , no evidence of sepsis/infection keep in ICU while on Dopamine - PATY with hyperkalemia, decreased urine output Cr up to 3.0 this morning, trending down to 2.8 in the afternoon K was 5.3, awaiting repeat value, will use Kayexalate PRN hold on further fluids per nephrology etiology likely poor perfusion with hypotension and bradycardia renal US done as outpatient, normal appearing kidneys nephrology warned of possible need for TOOL DESIGNER - Atrial fibrillation, permanent holding Amiodarone, Diltiazem and Atenolol with bradycardia Dr. Venegas would not resume Amiodarone recommends using metoprolol for rate control once appropriate will resume Eliquis once appropriate - DVT Prophylaxis: Heparin SC - Elevated LFT: likely some mild transaminitis from hypotension repeat tomorrow - Weakness and falls may be due to bradycardia at home that was intermittent no focal neurological deficits would consider MRI brain but she cannot have one due to bladder implant will resume work up once bradycardia treated may reconsider neurology consult when she is hemodynamically stable Level 1 45 minutes spent on patient today
[2017-07-24] MEDS: ACETAMINOPHEN 325 MG TAB PO PRN (15:05)
--- NOTE | 2017-07-24 15:31 | ECHOCARDIOGRAM REPORT ---
*NOTICE TO RECEIVING REPUBLICAN AGENCY This information is strictly Confidential and protected under [place] law. [place] law prohibits you from making any further disclosure of this information unless further disclosure is expressly permitted by the written consent of the person to whom it pertains or is authorized by law. A general authorization for the release of medical or other information is not sufficient for this purpose. Hospital accepts no responsibility if the information is made available to any other person, INCLUDING THE PATIENT. Interpretation Summary * Conclusions -- * 1. Low normal left ventricular size with normal systolic function. EF 55-60%. No regional wall motion abnormalities. No left ventricular hypertrophy. * 2. The right ventricle is mildly dilated. The right ventricular systolic function is normal. * 3. Mild biatrial dilation. * 4. Aortic valve sclerosis mild, without significant aortic valvular stenosis. * 5. Moderate mitral regurgitation. * 6. Moderate tricuspid regurgitation. * 7. Moderately elevated right ventricular systolic pressure; 42mmHg. * 8. No prior study available for comparison. Procedure Details * A complete two-dimensional transthoracic echocardiogram was performed (2D, M-mode, Doppler and color flow Doppler). Left Ventricle * Low normal left ventricular size with normal systolic function. EF 55-60%. No regional wall motion abnormalities. No left ventricular hypertrophy. Right Ventricle * The right ventricle is mildly dilated. * The right ventricular systolic function is normal. Atria * The left atrium is mildly dilated. * The right atrium is mildly dilated. * There is no evidence of atrial septal defect, but resolution does not allow assessment for a patent foramen ovale. Mitral Valve * There is mild to moderate mitral annular calcification. * There is no mitral valve stenosis. * There is moderate mitral regurgitation. Tricuspid Valve * There is no tricuspid stenosis. * There is moderate tricuspid regurgitation. Aortic Valve * The aortic valve is trileaflet. * Aortic valve sclerosis mild, without significant aortic valvular stenosis. * Trace aortic regurgitation. Pericardium/Pleural * There is no pericardial effusion. Great Vessels * Dilated IVC with reduced inspiratory collapse. MMode 2D Measurements and Calculations IVSd 0.98 cm LVIDd 3.4 cm LVIDs 2.2 cm LVPWd 1.0 cm IVS/LVPW 0.98 FS 33.9 % EDV(Teich) 46.1 ml ESV(Teich) 16.6 ml EF(Teich) 64.0 % EDV(cubed) 37.9 ml ESV(cubed) 11.0 ml EF(cubed) 71.1 % LV mass(C)d 96.1 grams LV mass(C)dI 51.8 grams/m\S\2 SV(Teich) 29.5 ml SI(Teich) 15.9 ml/m\S\2 SV(cubed) 26.9 ml SI(cubed) 14.5 ml/m\S\2 Ao root diam 2.7 cm Ao root area 5.7 cm\S\2 asc Aorta Diam 1.7 cm LVOT diam 1.6 cm LVOT area 2.1 cm\S\2 LVAd ap4 18.0 cm\S\2 LVLd ap4 6.9 cm EDV(MOD-sp4) 40.7 ml EDV(sp4-el) 40.0 ml LVAs ap4 10.5 cm\S\2 LVLs ap4 6.0 cm ESV(MOD-sp4) 16.5 ml ESV(sp4-el) 15.7 ml EF(MOD-sp4) 59.5 % EF(sp4-el) 60.9 % EDV(MOD-sp2) 60.0 ml ESV(MOD-sp2) 31.0 ml EF(MOD-sp2) 48.3 % SV(MOD-sp4) 24.2 ml SI(MOD-sp4) 13.1 ml/m\S\2 SV(MOD-sp2) 29.0 ml SI(MOD-sp2) 15.6 ml/m\S\2 SV(sp4-el) 24.4 ml SI(sp4-el) 13.1 ml/m\S\2 Doppler Measurements and Calculations MV E max joanie 115.9 cm/sec MV dec time 0.19 sec Ao V2 max 133.7 cm/sec Ao max PG 7.2 mmHg Ao max PG (full) 4.4 mmHg CHAVO(V,A) 1.3 cm\S\2 CHAVO(V,D) 1.3 cm\S\2 LV V1 max PG 2.8 mmHg LV V1 max 83.3 cm/sec TV E max joanie 73.9 cm/sec TR max joanie 259.7 cm/sec RVSP(TR) 42.0 mmHg RAP systole 15.0 mmHg
[2017-07-24 15:40] LABS: INR 1.2 (0.9-1.1)
--- NOTE | 2017-07-24 18:14 | Procedure Note ---
Procedure Note Date of Service Jul 24, 2017. Procedure Note Procedure Name: A line placement Procedure time out: side/site verified Consent obtained: written, verbal, [emergent consent implied] Performed by: myself, under direct supervision by [Alcides] Indications: [diagnostic] Contraindications: none Description: The patient was placed in supine position, right radial A-line placement visualized under ultrasound guidance, and then under strict sterile field, the skin was prepped with chlorhexidine, using ultrasound guidance, one attempt made , using Seldinger technique, the line was placed and sutured with 1 suture, covered with surgical dressing, patient tolerated the procedure very well, no immediate complication. Complications: none Patient tolerated procedure: well Resident Tracking Resident Involvement: Resident Care Provided Care Provided: Adult [facility]
--- NOTE | 2017-07-24 18:39 | Critical Care Progress Note ---
Critical Care Progress Note Date of Service Jul 24, 2017. Attending Dr. Mcgrath Subjective The patient continued to improve, she was able to be taken off the dopamine, she maintained her blood pressure, her heart rate has been normalized, the patient still in A. fib, no respiratory issues. Review of system did not reveal any abnormality. Had a line has been taken out. Objective Physical exam of 07/24/2017, patient vital signs are stable except for A. fib, heart examination S1-S2 irregularly irregular, distant breath sounds bilaterally , abdomen is benign, no edema in the periphery. Labs and imaging has been reviewed which appeared to be acceptable. Assessment & Plan 1. Resolved bradycardia, A. fib with very slow rate. Likely related to medications including atenolol and amiodarone. 2. Hypothyroidism. 3. Chronic kidney disease. 4. Spinal stenosis resulted in weakness in her lower extremities and multiple falls. Plan: 1. I will stop dopamine. 2. Remove a line as the patient blood pressure has been normalized. 3. Start the patient on levothyroxine 25 mics p.o. daily. 4. Appreciate cardiology input. 5. Patient is taken off the amiodarone and atenolol. 6. The patient is started on metoprolol twice daily. 7. Continue with heparin subcu for DVT prophylaxis. 8. The patient was taken off full dose of anticoagulation due to risk of fall. 9. The patient can be dispositioned to telemetry floor. 10. Case discussed with the staff on rounds and details. Critical care time spent with the patient was 35 minutes. Data Medications: Current Inpatient Medications Medications (Trade) Dose Ordered Sig/Herlinda Route Start Time Stop Time Status Last Admin Dose Admin Atorvastatin Calcium (Lipitor Tab) 20 mg QPM PO 07/22/17 21:00 08/21/17 20:59 07/23/17 21:40 20 MG Nortriptyline HCl (Pamelor Cap) 10 mg HS PO 07/22/17 21:00 08/21/17 20:59 07/23/17 21:42 10 MG Nortriptyline HCl (Pamelor Cap) 25 mg HS PO 07/22/17 21:00 08/21/17 20:59 07/23/17 21:41 25 MG Ranitidine HCl (zANTac TAB) 150 mg HS PO 07/22/17 21:00 08/21/17 20:59 07/23/17 21:40 150 MG Tapentadol (Nucynta Tab) 50 mg BID PRN PO 07/22/17 16:30 08/21/17 16:29 Cyanocobalamin (Vitamin B-12 Tab) 1,000 mcg QAM PO 07/23/17 08:00 08/22/17 08:59 07/24/17 09:11 1,000 MCG Pantoprazole Sodium (Protonix Tab) 40 mg QAM PO 07/23/17 08:00 08/22/17 08:59 07/24/17 09:10 40 MG Acetaminophen (Tylenol Tab) 650 mg Q4H PRN PO 07/22/17 16:30 08/21/17 16:29 07/23/17 15:40 650 MG Al Hydrox/Mg Hydrox/Simethicone (Maalox Max Susp) 15 ml Q4H PRN PO 07/22/17 16:30 08/21/17 16:29 Magnesium Hydroxide (Milk Of Magnesia Susp) 30 ml Q6H PRN PO 07/22/17 16:30 08/21/17 16:29 Polyethylene (Miralax Powder Packet) 17 gm DAILY PRN PO 07/22/17 16:30 08/21/17 16:29 Ondansetron HCl (Zofran Inj) 4 mg Q6H PRN IV 07/22/17 16:30 08/21/17 16:29 07/23/17 15:41 4 MG Miscellaneous (Iv Fluids Completed) 1 ea PRN PRN N/A 07/22/17 18:45 07/22/18 18:44 Insulin Aspart (novoLOG ASPART) SLIDING SCALE G... ACHS SC 07/23/17 16:30 08/22/17 16:29 07/24/17 16:47 4 UNITS Glucose (Glucose 40% Gel) 15-30 GRAMS 15 GRAMS... UD PRN PO 07/23/17 15:15 08/22/17 15:14 Glucose (Glucose Chew Tab) 4-8 Tablets 4 Tabl... UD PRN PO 07/23/17 15:15 08/22/17 15:14 Dextrose (Dextrose 50% 50ML Syringe) 25-50ML OF 50% DW IV FOR... UD PRN IV 07/23/17 15:15 08/22/17 15:14 Glucagon (Glucagon Inj) 1 mg UD PRN SQ 07/23/17 15:15 08/22/17 15:14 Sodium Chloride 1,000 ml @ 100 mls/hr Q10H IV 07/23/17 18:00 08/22/17 17:59 07/24/17 09:01 100 MLS/HR Heparin Sodium (Porcine) (Heparin Sq 5000 Unit/0.5ml) 5,000 unit Q12 SQ 07/24/17 21:00 08/23/17 20:59 I & O: 24-Hour Column 07/25/17 08:00 Intake Total 950 ml Output Total 550 ml Balance 400 ml Vital Signs: Date Time Temp Pulse Resp B/P (MAP) Pulse Ox O2 Delivery O2 Flow Rate FiO2 07/24/17 17:30 98 18 129/89 (102) 95 Nasal Cannula 2.0 07/24/17 17:28 123 17 90/76 (81) 07/24/17 17:15 123 17 90/76 (81) 07/24/17 16:30 91 20 106/80 (89) 07/24/17 16:00 Nasal Cannula 2.0 07/24/17 16:00 36.4 99 14 88/74 (79) 93 Nasal Cannula 2.0 07/24/17 15:30 94 19 124/73 (90) 96 07/24/17 15:15 92 17 118/80 (93) 95 07/24/17 15:00 103 20 78/68 (71) 94 07/24/17 13:45 107 30 95 07/24/17 13:32 98 20 103/58 (73) 95 Nasal Cannula 2.0 07/24/17 13:30 95 20 96 07/24/17 13:15 95 18 30/28 (29) 95 07/24/17 13:01 108 20 108/73 (85) 95 Nasal Cannula 2.0 07/24/17 13:00 90 22 47/29 (35) 96 07/24/17 12:45 93 20 118/69 (85) 96 07/24/17 12:35 95 22 123/68 (86) 98 Nasal Cannula 2.0 07/24/17 12:30 36.8 98 18 88/64 (72) 98 07/24/17 12:15 99 22 73/68 (70) 97 2.0 07/24/17 12:00 103 20 74/40 (51) 95 Nasal Cannula 07/24/17 11:50 Nasal Cannula 2.0 07/24/17 11:45 95 18 88/64 (72) 07/24/17 11:30 104 22 77/58 (64) 93 Nasal Cannula 2.0 07/24/17 11:15 97 115/51 (72) 99 07/24/17 11:00 88 77/63 (68) 99 07/24/17 10:45 96 74/58 (63) 94 07/24/17 10:30 89 77/54 (62) 98 Nasal Cannula 2.0 07/24/17 10:15 92 72/52 (59) 99 07/24/17 10:00 96 102/58 (73) 100 Nasal Cannula 2.0 07/24/17 08:45 88 77/58 (64) 99 07/24/17 08:30 Nasal Cannula 2.0 07/24/17 08:30 93 73/55 (61) 98 07/24/17 08:15 92 81/62 (68) 99 07/24/17 08:00 36.8 07/24/17 08:00 84 20 71/53 (59) 99 Nasal Cannula 2.0 07/24/17 07:45 87 68/48 (55) 97 07/24/17 07:30 91 72/58 (63) 99 07/24/17 07:15 85 80/57 (65) 96 07/24/17 07:00 92 20 82/60 (67) 98 07/24/17 06:01 92 13 85/58 (67) 100 Nasal Cannula 2.0 07/24/17 05:01 84 84/57 (66) 99 Nasal Cannula 3.0 07/24/17 04:01 36.6 96 87/60 (69) 100 Nasal Cannula 3.0 07/24/17 04:00 Nasal Cannula 2.0 07/24/17 03:01 90 91/63 (72) 100 Nasal Cannula 3.0 07/24/17 03:00 90 86/59 (68) 98 Nasal Cannula 4.0 07/24/17 02:00 100 85/57 (66) 96 Nasal Cannula 4.0 07/24/17 01:00 88 71/48 (56) 100 Nasal Cannula 4.0 07/24/17 00:00 36.5 89 80/45 (57) 84 Nasal Cannula 4.0 07/23/17 23:59 Nasal Cannula 2.0 07/23/17 23:00 79 79/44 (56) 100 Nasal Cannula 4.0 07/23/17 22:00 76 76/45 (55) 98 Nasal Cannula 4.0 07/23/17 21:00 87 22 69/40 (50) 85 Nasal Cannula 4.0 07/23/17 20:00 36.4 87 15 69/43 (52) 97 Nasal Cannula 4.0 07/23/17 20:00 Nasal Cannula 2.0 07/23/17 19:00 67 15 62/31 (41) 96 Nasal Cannula 4.0 Laboratory Results: Last 24 Hours Test 07/23/17 21:35 07/24/17 05:06 07/24/17 06:12 07/24/17 06:22 Bedside Glucose 184 mg/dl Sodium Level 135 mmol/L Potassium Level mmol/L 5.3 mmol/L Chloride Level 107 mmol/L Carbon Dioxide Level 26 mmol/L Anion Gap 2.0 mmol/L Blood Urea Nitrogen 49 mg/dl Creatinine 3.09 mg/dl Est Creatinine Clear Calc Drug Dose 14.5 ml/min Estimated GFR () 15.8 Estimated GFR (Non- 13.6 BUN/Creatinine Ratio 15.9 Random Glucose 181 mg/dl Calcium Level 8.2 mg/dl Phosphorus Level 3.6 mg/dl Magnesium Level mg/dl 2.1 mg/dl Total Bilirubin 1.1 mg/dl Direct Bilirubin mg/dl 0.4 mg/dl Aspartate Amino Transf (AST/SGOT) U/L 402 U/L Alanine Aminotransferase (ALT/SGPT) 260 U/L Alkaline Phosphatase 173 U/L Total Protein 6.6 gm/dl Albumin 3.5 gm/dl White Blood Count 7.91 K/uL Red Blood Count 3.39 M/uL Hemoglobin 10.5 g/dL Hematocrit 33.7 % Mean Corpuscular Volume 99.4 fL Mean Corpuscular Hemoglobin 31.0 pg Mean Corpuscular Hemoglobin Concent 31.2 g/dl Platelet Count 140 K/uL Mean Platelet Volume 9.6 fL Neutrophils (%) (Auto) 88.3 % Lymphocytes (%) (Auto) 4.8 % Monocytes (%) (Auto) 5.7 % Eosinophils (%) (Auto) 0.1 % Basophils (%) (Auto) 0.1 % Neutrophils # (Auto) 6.98 K/uL Lymphocytes # (Auto) 0.38 K/uL Monocytes # (Auto) 0.45 K/uL Eosinophils # (Auto) 0.01 K/uL Basophils # (Auto) 0.01 K/uL RDW Standard Deviation 54.8 fL RDW Coefficient of Variation 15.3 % Immature Granulocyte % (Auto) 1.0 % Immature Granulocyte # (Auto) 0.08 K/uL Test 07/24/17 06:45 07/24/17 10:27 07/24/17 11:32 07/24/17 13:08 Bedside Glucose 188 mg/dl 139 mg/dl Random Cortisol 17.76 mcg/dl Sodium Level 137 mmol/L Potassium Level mmol/L Chloride Level 107 mmol/L Carbon Dioxide Level 22 mmol/L Anion Gap 8.0 mmol/L Blood Urea Nitrogen 49 mg/dl Creatinine 2.83 mg/dl Est Creatinine Clear Calc Drug Dose 16.2 ml/min Estimated GFR () 17.5 Estimated GFR (Non- 15.1 BUN/Creatinine Ratio 17.2 Random Glucose 152 mg/dl Calcium Level 7.7 mg/dl Test 07/24/17 13:47 07/24/17 15:15 07/24/17 16:03 Potassium Level 4.8 mmol/L Prothrombin Time 12.2 SECONDS Prothromb Time International Ratio 1.2 Bedside Glucose 133 mg/dl
[2017-07-24] MEDS ORDERED: HEPARIN SOD 5000 UNIT/0.5 ML CARP SQ SCH (21:00)
[2017-07-24] MEDS ORDERED: GABAPENTIN 100 MG CAP PO SCH (21:00)
[2017-07-24] MEDS: NORTRIPTYLINE HCL 25 MG CAP PO SCH (21:24)
[2017-07-24] MEDS: NORTRIPTYLINE HCL 10 MG CAP PO SCH (21:24)
[2017-07-24] MEDS: ATORVASTATIN 20 MG TAB PO SCH (21:24)
[2017-07-24] MEDS: RANITIDINE HCL 150 MG TAB PO SCH (21:25)
[2017-07-24] MEDS: TAPENTADOL HCL 50 MG TAB PO PRN (22:50)
[2017-07-25] VITALS (25 sets, daily range): BP systolic 86–174; BP diastolic 50–100; PULSE 84–129; TEMP 36.6–36.9; O2SAT 92–100
[2017-07-25] MEDS: LEVOTHYROXINE 25 MCG TAB PO SCH (04:48)
[2017-07-25 05:05] LABS: BASO % 0.1 %; BASO ABS # 0.01 K/uL (0-0.2); EOS % 3.6 %; EOS ABS # 0.25 K/uL (0-0.5); HEMOGLOBIN 9.9 g/dL (12.0-16.0); IG# 0.04 K/uL (0.00-0.02); LYMPH % 7.8 %; LYMPH ABS # 0.54 K/uL (1.2-3.4); MEAN CELL VOLUME 100.6 fL (80-100); MEAN CORPUSCULAR HEMOGLOBIN 31.1 pg (25-34); MEAN CORPUSCULAR HGB CONC 30.9 g/dl (32-36); MEAN PLATELET VOLUME 10.6 fL (7.4-10.4); MONO % 5.5 %; MONO ABS # 0.38 K/uL (0.11-0.59); NEUT % 82.4 %; NEUT ABS # 5.68 K/uL (1.4-6.5); PLATELET COUNT 133 K/uL (130-400); RED CELL DISTRIBUTION WIDTH CV 15.1 % (11.5-14.5); RED CELL DISTRIBUTION WIDTH SD 55.3 fL (36.4-46.3)
[2017-07-25] MEDS ORDERED: AMIODARONE 200 MG TAB PO STA (05:21)
[2017-07-25] MEDS ORDERED: NURSING VERBAL MED ORDER ONE ×2 (05:30→18:30)
[2017-07-25 05:31] LABS: ALBUMIN 3.4 gm/dl (3.4-5.0); CALCIUM 8.1 mg/dl (8.5-10.1); CREATININE 2.12 mg/dl (0.60-1.20); POTASSIUM 4.7 mmol/L (3.5-5.1)
[2017-07-25 05:35] LABS: TOTAL PROTEIN 6.3 gm/dl (6.4-8.2)
[2017-07-25] MEDS: SODIUM CHLORIDE 0.9% 1000ML 1,000 ML IV SCH (05:40)
[2017-07-25] MEDS: LEVALBUTEROL 1.25MG/3ML NEB INH PRN ×3 (05:56→22:32)
[2017-07-25] MEDS: PANTOprazole SOD 40 MG TAB PO SCH (08:20)
[2017-07-25] MEDS: CYANOCOBALAMIN 500 MCG TAB (VIT B-12) PO SCH (08:20)
[2017-07-25] MEDS: INSULIN ASPART 100 UNITS/ML 3 ML PEN SC SCH ×4 (08:42→20:53)
[2017-07-25 11:28] LABS: INR 1.1 (0.9-1.1); PTT PATIENT 26.6 SECONDS (21.0-31.0)
[2017-07-25] MEDS: HEPARIN 25,000 UNIT/500ML D5W 500 ML IV SCH (11:36)
--- NOTE | 2017-07-25 11:39 | CARDIOLOGY PROGRESS NOTE ---
DATE: 07/25/2017 TIME: 10:53 a.m. SUBJECTIVE: Mrs. Porter is currently out of bed in a chair. She did have some shortness of breath this morning but currently feels a bit better. She denies chest pain, palpitation, syncope, near syncope or bleeding. Overnight she became more tachycardic and she was given a dose of amiodarone and atenolol by the covering hospitalist. She remains tachycardic and mildly hypertensive. One of her main concerns today is the fact that she has been having issues walking. She states that her knees buckle and she will fall to the floor intermittently. This has been occurring as an outpatient. She also has been experiencing some shortness of breath with some wheezing as an outpatient. Despite the fact that she was felt to be intravascularly hypovolemic yesterday, she remained short of breath. She is not sure of the etiology of her breathing difficulties. OBJECTIVE: VITAL SIGNS: Temperature 36.7 degrees, heart rate charted at 103 beats per minute, respiration rate 16, blood pressure 142/98 mmHg, oxygen saturation 97% on 2 liters per nasal cannula. I's and O's positive 934 mL, weight 93.9 kg. GENERAL: No acute distress. NECK: No significant JVD. CARDIAC EXAM: No ventricular heave, irregularly irregular. No audible murmurs, rubs or gallops. LUNGS: Clear to auscultation bilaterally without wheezes, rales or rhonchi. ABDOMEN: Soft, nontender, nondistended. Normoactive bowel sounds. EXTREMITIES: Trace to 1+ bilateral lower extremity edema. No cyanosis. PSYCHIATRIC: Affect appears appropriate. MEDICATIONS: Include atorvastatin 20 mg daily, heparin 5,000 units subQ q. 12 hours, nortriptyline 35 mg at bedtime, Protonix 40 mg daily. She received amiodarone 200 mg p.o. at 5:32 a.m. She received atenolol 25 mg at 5:32 a.m. Telemetry personally reviewed. Atrial fibrillation, more recently with rapid ventricular response. LABORATORY DATA: White blood cell count is 6.9, hemoglobin 9.9, platelets 133. Sodium 140, potassium 4.7, BUN 45, creatinine 2.12 down from 2.83. TSH was 5.7 on presentation. Echocardiogram 07/24/2017 low normal LV size with normal systolic function. EF 55-60%. Normal wall motion. Mildly dilated right ventricle with normal systolic function. Mild biatrial dilation. Sclerotic aortic valve. Moderate MR. Moderate TR. RVSP 42. ASSESSMENT AND PLAN: 1. Atrial fibrillation: She developed bradycardia with her atrial fibrillation, which was thought to be secondary to atenolol in the setting of worsening renal function. She was also on amiodarone and diltiazem. She is now tachycardic. We will start metoprolol 25 mg q. 6 hours. This can be further titrated as appropriate for heart rate control. Recommend resuming anticoagulation therapy. She had been on Eliquis, which has been discontinued. We will start heparin drip. Long-term anticoagulation can then be restarted after her renal issues settle. 2. Shortness of breath: Etiology uncertain. She was felt to be intravascularly hypovolemic upon presentation and had been on Lasix. It appears as though she has been more chronically short of breath. Would not resume diuretics at this point. Her renal function is improving after hydration and discontinuation of her diuretic therapy. 3. Mitral and tricuspid regurgitation: Recommend conservative management at this time. Her valvular insufficiencies could be followed over time by her primary production weigher, Dr. Venegas. 4. Pulmonary hypertension: She had mild pulmonary hypertension suggested on echocardiogram. This can be followed over time. She does have obstructive sleep apnea per records. 5. Hypertension: She did have acute hypotension yesterday and her blood pressure has improved with the discontinuation of her rate controlling/antihypertensive medications and also after hydration. We will resume beta abilio therapy as noted above for hypertension which she currently has. 6. Disposition: Cardiology will continue to follow and her primary production weigher, Dr. Venegas will resume her care in 2 days when he returns to the hospital. Patient's care has been discussed with Dr. Vargas of the primary hospitalist service.
[2017-07-25] MEDS: METOPROLOL TARTRATE 25 MG TAB PO SCH ×3 (11:40→22:29)
--- NOTE | 2017-07-25 12:36 | Nephrology Progress Note ---
Nephrology Progress Note Date of Service Jul 25, 2017. Chief Complaint PATY/CKD Subjective Tiffanie was seen and evaluated in the ICU this morning. Plan of care was discussed with Dr. Vargas. Tiffanie feels well. She is experiencing exacerbation of chronic back pain. She denies any shortness of breath. She denies palpitations. She denies lightheadedness, dizziness, syncope or presyncope. She does not have any chest pain. Review of Systems A complete review of systems was performed. Pertinent positives are noted above. All other systems are negative. Vital Signs Last 8 Hrs Date Time Temp Pulse Resp B/P (MAP) Pulse Ox O2 Delivery O2 Flow Rate FiO2 07/25/17 08:00 Nasal Cannula 2.0 07/25/17 08:00 36.7 103 16 142/98 (113) 97 Nasal Cannula 2.0 07/25/17 05:56 104 20 92 Room Air 07/25/17 05:10 36.7 Last Recorded Weight Weight (Kilograms): 93.900 Physical Exam General Appearance: no apparent distress Head: normocephalic, atraumatic Eyes: normal inspection, sclerae normal ENT: normal ENT inspection, pharynx normal Neck: supple, no JVD Respiratory/Chest: lungs clear, no respiratory distress, no accessory muscle use Cardiovascular: no gallop, no murmur, + irregularly irregular Abdomen/GI: non tender, soft Extremities/Musculoskelatal: normal inspection, no pedal edema Neurologic/Psych: alert, normal mood/affect Family History FH: lung disease FHx: heart disease Hypertension Social History Smoking Status: Never smoker Marital Status: Occupation: retired Laboratory Results Past 24 Hours 07/25/17 04:44 Red Blood Count 3.18, Mean Corpuscular Volume 100.6, Mean Corpuscular Hemoglobin 31.1, Mean Corpuscular Hemoglobin Concent 30.9, Mean Platelet Volume 10.6, Neutrophils (%) (Auto) 82.4, Lymphocytes (%) (Auto) 7.8, Monocytes (%) ( Auto) 5.5, Eosinophils (%) (Auto) 3.6, Basophils (%) (Auto) 0.1, Neutrophils # ( Auto) 5.68, Lymphocytes # (Auto) 0.54, Monocytes # (Auto) 0.38, Eosinophils # ( Auto) 0.25, Basophils # (Auto) 0.01 4/20/18 13:08 07/24/17 13:47 07/25/17 04:44 Test 07/24/17 13:08 07/24/17 15:15 07/24/17 16:03 07/24/17 21:28 Anion Gap 8.0 mmol/L (3-11) Est Creatinine Clear Calc Drug Dose 16.2 ml/min Estimated GFR () 17.5 Estimated GFR (Non- 15.1 BUN/Creatinine Ratio 17.2 (10-20) Calcium Level 7.7 mg/dl (8.5-10.1) Prothrombin Time 12.2 SECONDS (9.0-12.0) Prothromb Time International Ratio 1.2 (0.9-1.1) Bedside Glucose 133 mg/dl (70-90) 141 mg/dl (70-90) Test 07/25/17 04:44 07/25/17 06:01 07/25/17 11:08 07/25/17 11:32 White Blood Count 6.90 K/uL (4.8-10.8) Red Blood Count 3.18 M/uL (4.2-5.4) Hemoglobin 9.9 g/dL (12.0-16.0) Hematocrit 32.0 % (37-47) Mean Corpuscular Volume 100.6 fL (80-100) Mean Corpuscular Hemoglobin 31.1 pg (25-34) Mean Corpuscular Hemoglobin Concent 30.9 g/dl (32-36) Platelet Count 133 K/uL (130-400) Mean Platelet Volume 10.6 fL (7.4-10.4) Neutrophils (%) (Auto) 82.4 % Lymphocytes (%) (Auto) 7.8 % Monocytes (%) (Auto) 5.5 % Eosinophils (%) (Auto) 3.6 % Basophils (%) (Auto) 0.1 % Neutrophils # (Auto) 5.68 K/uL (1.4-6.5) Lymphocytes # (Auto) 0.54 K/uL (1.2-3.4) Monocytes # (Auto) 0.38 K/uL (0.11-0.59) Eosinophils # (Auto) 0.25 K/uL (0-0.5) Basophils # (Auto) 0.01 K/uL (0-0.2) RDW Standard Deviation 55.3 fL (36.4-46.3) RDW Coefficient of Variation 15.1 % (11.5-14.5) Immature Granulocyte % (Auto) 0.6 % Immature Granulocyte # (Auto) 0.04 K/uL (0.00-0.02) Anion Gap 7.0 mmol/L (3-11) Est Creatinine Clear Calc Drug Dose 21.6 ml/min Estimated GFR () 24.8 Estimated GFR (Non- 21.4 BUN/Creatinine Ratio 21.4 (10-20) Calcium Level 8.1 mg/dl (8.5-10.1) Iron Level 29 mcg/dl (35-150) Transferrin 221 mg/dl (200-360) Transferrin % Saturation 0 % (15-50) Ferritin 445.4 ng/ml (8.0-388.0) Total Bilirubin 0.8 mg/dl (0.2-1) Direct Bilirubin 0.3 mg/dl (0-0.2) Aspartate Amino Transf (AST/SGOT) 117 U/L (15-37) Alanine Aminotransferase (ALT/SGPT) 179 U/L (12-78) Alkaline Phosphatase 148 U/L (45-117) Total Protein 6.3 gm/dl (6.4-8.2) Albumin 3.4 gm/dl (3.4-5.0) 25-Hydroxy Vitamin D Total 37.5 ng/ml (30-100) Parathyroid Hormone (Intact) 142.9 pg/mL (18.4-80.1) Bedside Glucose 140 mg/dl (70-90) 152 mg/dl (70-90) Prothrombin Time 11.4 SECONDS (9.0-12.0) Prothromb Time International Ratio 1.1 (0.9-1.1) Activated Partial Thromboplast Time 26.6 SECONDS (21.0-31.0) Partial Thromboplastin Ratio 1.0 Allergies Coded Allergies: Iodine (Verified Allergy, Severe, ANAPHYLAXIS, 07/16/17) Shellfish (Verified Allergy, Severe, ANAPHYLAXIS, 07/16/17) Paroxetine (Verified Allergy, Unknown, GI UPSET, 07/16/17) Medications Current Inpatient Medications Medications (Trade) Dose Ordered Sig/Herlinda Route Start Time Stop Time Status Last Admin Dose Admin Atorvastatin Calcium (Lipitor Tab) 20 mg QPM PO 07/22/17 21:00 08/21/17 20:59 07/24/17 21:24 20 MG Nortriptyline HCl (Pamelor Cap) 10 mg HS PO 07/22/17 21:00 08/21/17 20:59 07/24/17 21:24 10 MG Nortriptyline HCl (Pamelor Cap) 25 mg HS PO 07/22/17 21:00 08/21/17 20:59 07/24/17 21:24 25 MG Ranitidine HCl (zANTac TAB) 150 mg HS PO 07/22/17 21:00 08/21/17 20:59 07/24/17 21:25 150 MG Tapentadol (Nucynta Tab) 50 mg BID PRN PO 07/22/17 16:30 08/21/17 16:29 07/24/17 22:50 50 MG Cyanocobalamin (Vitamin B-12 Tab) 1,000 mcg QAM PO 07/23/17 08:00 08/22/17 08:59 07/25/17 08:20 1,000 MCG Pantoprazole Sodium (Protonix Tab) 40 mg QAM PO 07/23/17 08:00 08/22/17 08:59 07/25/17 08:20 40 MG Acetaminophen (Tylenol Tab) 650 mg Q4H PRN PO 07/22/17 16:30 08/21/17 16:29 07/23/17 15:40 650 MG Al Hydrox/Mg Hydrox/Simethicone (Maalox Max Susp) 15 ml Q4H PRN PO 07/22/17 16:30 08/21/17 16:29 Magnesium Hydroxide (Milk Of Magnesia Susp) 30 ml Q6H PRN PO 07/22/17 16:30 08/21/17 16:29 Polyethylene (Miralax Powder Packet) 17 gm DAILY PRN PO 07/22/17 16:30 08/21/17 16:29 Ondansetron HCl (Zofran Inj) 4 mg Q6H PRN IV 07/22/17 16:30 08/21/17 16:29 07/23/17 15:41 4 MG Miscellaneous (Iv Fluids Completed) 1 ea PRN PRN N/A 07/22/17 18:45 07/22/18 18:44 Insulin Aspart (novoLOG ASPART) SLIDING SCALE G... ACHS SC 07/23/17 16:30 08/22/17 16:29 07/25/17 11:48 6 UNITS Glucose (Glucose 40% Gel) 15-30 GRAMS 15 GRAMS... UD PRN PO 07/23/17 15:15 08/22/17 15:14 Glucose (Glucose Chew Tab) 4-8 Tablets 4 Tabl... UD PRN PO 07/23/17 15:15 08/22/17 15:14 Dextrose (Dextrose 50% 50ML Syringe) 25-50ML OF 50% DW IV FOR... UD PRN IV 07/23/17 15:15 08/22/17 15:14 Glucagon (Glucagon Inj) 1 mg UD PRN SQ 07/23/17 15:15 08/22/17 15:14 Sodium Chloride 1,000 ml @ 100 mls/hr Q10H IV 07/23/17 18:00 08/22/17 17:59 07/25/17 05:40 100 MLS/HR Levothyroxine Sodium (Synthroid Tab) 25 mcg DAILYBB PO 07/25/17 06:00 08/24/17 05:59 07/25/17 04:48 25 MCG Levalbuterol (Xopenex 1.25MG/ 3ML Neb) 1.25 mg Q4H PRN INH 07/25/17 06:00 08/24/17 05:59 07/25/17 05:56 1.25 MG Metoprolol Tartrate (Lopressor Tab) 25 mg Q6H PO 07/25/17 11:00 08/24/17 10:59 07/25/17 11:40 25 MG Heparin Sodium/ Dextrose 500 ml @ 23 mls/hr [id number] IV 07/25/17 11:05 08/24/17 11:04 07/25/17 11:36 23 MLS/HR Impression (1) PATY (acute kidney injury) (2) Hyperkalemia (3) Anemia (4) Hypertension (5) Atrial fibrillation with controlled ventricular rate (6) Falls frequently Tiffanie is an 82 year-old female with CKD III, baseline creatinine 1.3- 1.6 who was admitted to the [facility] with generalized weakness, bradycardia and persistent hypotension. On admission, she was found to have acute kidney injury creatinine 2.1 mg/dL which rapidly worsened over 24 hours to 3.1 mg/dL. She also developed hyperkalemia. Creatinine has improved to 2.12 mg/dL this morning. The patient is non oliguric. Urine notable for a few hyaline cast. PATY likely prerenal in the setting of hemodynamic changes including bradycardia and hypotension. Clinical presentation may be attributed to atenolol. The patient is improving. She is being started on a low dose of metoprolol. No signs of infection noted. Will continue to monitor. CKD could be attributed to hypertensive nephropathy, microvascular disease or chronic tubular interstitial fibrosis. Recommendations PATY: -- Document I/O's -- Medications appropriate for renal function -- Gabapentin held but ma be restarted as needed -- Hold additional IVF -- Maintain even fluid balance -- Repeat metabolic profile tomorrow AM CKD: -- Outpatient follow up will be arranged -- Labs notable for some evidence of CKD/MBD including secondary hyperparathyroidism, which can be addressed as an outpatient Anemia: -- Monitor, no role for SUN at this time -- Repeat iron profile requested Spinal stenosis: -- Restart gabapentin 200 mg QHS -- Avoid NSAIDS
--- NOTE | 2017-07-25 15:28 | Progress Note ---
Subjective Date of Service: Jul 25, 2017. Subjective Pt evaluation today including: conversation w/ patient, physical exam, lab review, conversation w/ event management consultant, review of inpatient medication list Pain: no pain PO Intake: adequate Voiding: del rosario catheter in place patient feeling better, HR elevated and blood pressure elevated now discussed with Dr. Rodas, start Lopressor 25mg q6, may need higher dose discussed with Dr. Mcgrath, can transfer to tele today patient still c/o weakness in legs, discussed further, she has severe stenosis, was recommended to have surgery 5 years ago overdue for epidural injection reviewed labs, Cr down to 2.1, hb 9.9, LFT going down Problem List Medical Problems: (1) Afib Status: Acute (2) Atrial fibrillation with controlled ventricular rate Status: Acute (3) Chronic anticoagulation Status: Acute (4) Fluid overload Status: Acute (5) Shortness of breath Status: Acute Review of Systems Constitutional: + weakness, + fatigue Respiratory: + shortness of breath, + dyspnea on exertion Musculoskeletal: + joint pain (low back) Neurologic: + weakness All Other Systems: Reviewed and Negative Medications Current Inpatient Medications Medications (Trade) Dose Ordered Sig/Herlinda Route Start Time Stop Time Status Last Admin Dose Admin Atorvastatin Calcium (Lipitor Tab) 20 mg QPM PO 07/22/17 21:00 08/21/17 20:59 07/24/17 21:24 20 MG Nortriptyline HCl (Pamelor Cap) 10 mg HS PO 07/22/17 21:00 08/21/17 20:59 07/24/17 21:24 10 MG Nortriptyline HCl (Pamelor Cap) 25 mg HS PO 07/22/17 21:00 08/21/17 20:59 07/24/17 21:24 25 MG Ranitidine HCl (zANTac TAB) 150 mg HS PO 07/22/17 21:00 08/21/17 20:59 07/24/17 21:25 150 MG Tapentadol (Nucynta Tab) 50 mg BID PRN PO 07/22/17 16:30 08/21/17 16:29 07/24/17 22:50 50 MG Cyanocobalamin (Vitamin B-12 Tab) 1,000 mcg QAM PO 07/23/17 08:00 08/22/17 08:59 07/25/17 08:20 1,000 MCG Pantoprazole Sodium (Protonix Tab) 40 mg QAM PO 07/23/17 08:00 08/22/17 08:59 07/25/17 08:20 40 MG Acetaminophen (Tylenol Tab) 650 mg Q4H PRN PO 07/22/17 16:30 08/21/17 16:29 07/23/17 15:40 650 MG Al Hydrox/Mg Hydrox/Simethicone (Maalox Max Susp) 15 ml Q4H PRN PO 07/22/17 16:30 08/21/17 16:29 Magnesium Hydroxide (Milk Of Magnesia Susp) 30 ml Q6H PRN PO 07/22/17 16:30 08/21/17 16:29 Polyethylene (Miralax Powder Packet) 17 gm DAILY PRN PO 07/22/17 16:30 08/21/17 16:29 Ondansetron HCl (Zofran Inj) 4 mg Q6H PRN IV 07/22/17 16:30 08/21/17 16:29 07/23/17 15:41 4 MG Miscellaneous (Iv Fluids Completed) 1 ea PRN PRN N/A 07/22/17 18:45 07/22/18 18:44 Insulin Aspart (novoLOG ASPART) SLIDING SCALE G... ACHS SC 07/23/17 16:30 08/22/17 16:29 07/25/17 11:48 6 UNITS Glucose (Glucose 40% Gel) 15-30 GRAMS 15 GRAMS... UD PRN PO 07/23/17 15:15 08/22/17 15:14 Glucose (Glucose Chew Tab) 4-8 Tablets 4 Tabl... UD PRN PO 07/23/17 15:15 08/22/17 15:14 Dextrose (Dextrose 50% 50ML Syringe) 25-50ML OF 50% DW IV FOR... UD PRN IV 07/23/17 15:15 08/22/17 15:14 Glucagon (Glucagon Inj) 1 mg UD PRN SQ 07/23/17 15:15 08/22/17 15:14 Sodium Chloride 1,000 ml @ 100 mls/hr Q10H IV 07/23/17 18:00 09/21/17 17:58 07/25/17 05:40 100 MLS/HR Levothyroxine Sodium (Synthroid Tab) 25 mcg DAILYBB PO 07/25/17 06:00 08/24/17 05:59 07/25/17 04:48 25 MCG Levalbuterol (Xopenex 1.25MG/ 3ML Neb) 1.25 mg Q4H PRN INH 07/25/17 06:00 08/24/17 05:59 07/25/17 05:56 1.25 MG Metoprolol Tartrate (Lopressor Tab) 25 mg Q6H PO 07/25/17 11:00 08/24/17 10:59 07/25/17 11:40 25 MG Heparin Sodium/ Dextrose 500 ml @ 23 mls/hr [id number] IV 07/25/17 11:05 08/24/17 11:04 07/25/17 11:36 23 MLS/HR Gabapentin (Neurontin Cap) 200 mg QPM PO 07/25/17 21:00 08/24/17 20:59 Objective Vital Signs Date Time Temp Pulse Resp B/P (MAP) Pulse Ox O2 Delivery O2 Flow Rate FiO2 07/25/17 13:37 36.7 103 18 95 2.0 07/25/17 12:00 Nasal Cannula 2.0 07/25/17 12:00 103 18 137/96 (110) 95 Nasal Cannula 2.0 07/25/17 08:00 Nasal Cannula 2.0 07/25/17 08:00 36.7 103 16 142/98 (113) 97 Nasal Cannula 2.0 07/25/17 05:56 104 20 92 Room Air 07/25/17 05:10 36.7 07/25/17 04:04 95 Nasal Cannula 2.0 07/25/17 04:00 84 17 98 07/25/17 03:00 96 16 97 07/25/17 02:00 107 16 96 07/25/17 01:00 90 22 97 07/25/17 00:52 95 Nasal Cannula 2.0 07/25/17 00:02 36.7 106 17 174/82 (112) 95 Nasal Cannula 2.0 07/25/17 00:00 102 17 97 07/24/17 23:00 103 16 96 07/24/17 22:00 102 22 95 07/24/17 21:02 99 18 124/70 (88) 91 07/24/17 21:00 120 18 90 07/24/17 20:31 106 28 141/51 (81) 89 07/24/17 20:00 36.7 114 23 95 Nasal Cannula 2.0 07/24/17 20:00 95 Nasal Cannula 2.0 07/24/17 19:00 110 20 91 07/24/17 18:42 107 18 148/93 (111) 93 Nasal Cannula 2.0 07/24/17 18:00 97 21 162/56 (91) 97 Nasal Cannula 2.0 07/24/17 17:30 98 18 129/89 (102) 95 Nasal Cannula 2.0 07/24/17 17:28 123 17 90/76 (81) 07/24/17 17:15 123 17 90/76 (81) 07/24/17 16:30 91 20 106/80 (89) 07/24/17 16:00 Nasal Cannula 2.0 07/24/17 16:00 36.4 99 14 88/74 (79) 93 Nasal Cannula 2.0 07/24/17 15:30 94 19 124/73 (90) 96 Physical Exam General Appearance: no apparent distress, + obese Eyes: normal inspection, EOMI, sclerae normal Neck: supple, no adenopathy, no JVD, trachea midline Respiratory/Chest: chest non-tender, lungs clear, normal breath sounds, no respiratory distress, no accessory muscle use Cardiovascular: no edema, no gallop, no JVD, no murmur, + tachycardia Abdomen: normal bowel sounds, non tender, soft, no organomegaly Extremities: normal inspection, no pedal edema, no calf tenderness, normal capillary refill, pelvis stable, + pertinent finding (decreased strength and ROM of lower legs due to spinal stenosis) Neurologic/Psychiatric: 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-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 nml as tested, alert, normal mood/affect, oriented x 3, + motor weakness Skin: normal color, warm/dry, no rash Laboratory Results Last 24 Hours Test 07/24/17 16:03 07/24/17 21:28 07/25/17 04:44 07/25/17 06:01 Bedside Glucose 133 mg/dl 141 mg/dl 140 mg/dl White Blood Count 6.90 K/uL Red Blood Count 3.18 M/uL Hemoglobin 9.9 g/dL Hematocrit 32.0 % Mean Corpuscular Volume 100.6 fL Mean Corpuscular Hemoglobin 31.1 pg Mean Corpuscular Hemoglobin Concent 30.9 g/dl Platelet Count 133 K/uL Mean Platelet Volume 10.6 fL Neutrophils (%) (Auto) 82.4 % Lymphocytes (%) (Auto) 7.8 % Monocytes (%) (Auto) 5.5 % Eosinophils (%) (Auto) 3.6 % Basophils (%) (Auto) 0.1 % Neutrophils # (Auto) 5.68 K/uL Lymphocytes # (Auto) 0.54 K/uL Monocytes # (Auto) 0.38 K/uL Eosinophils # (Auto) 0.25 K/uL Basophils # (Auto) 0.01 K/uL RDW Standard Deviation 55.3 fL RDW Coefficient of Variation 15.1 % Immature Granulocyte % (Auto) 0.6 % Immature Granulocyte # (Auto) 0.04 K/uL Sodium Level 140 mmol/L Potassium Level 4.7 mmol/L Chloride Level 110 mmol/L Carbon Dioxide Level 23 mmol/L Anion Gap 7.0 mmol/L Blood Urea Nitrogen 45 mg/dl Creatinine 2.12 mg/dl Est Creatinine Clear Calc Drug Dose 21.6 ml/min Estimated GFR () 24.8 Estimated GFR (Non- 21.4 BUN/Creatinine Ratio 21.4 Random Glucose 139 mg/dl Calcium Level 8.1 mg/dl Iron Level 29 mcg/dl Transferrin 221 mg/dl Transferrin % Saturation 0 % Ferritin 445.4 ng/ml Total Bilirubin 0.8 mg/dl Direct Bilirubin 0.3 mg/dl Aspartate Amino Transf (AST/SGOT) 117 U/L Alanine Aminotransferase (ALT/SGPT) 179 U/L Alkaline Phosphatase 148 U/L Total Protein 6.3 gm/dl Albumin 3.4 gm/dl 25-Hydroxy Vitamin D Total 37.5 ng/ml Parathyroid Hormone (Intact) 142.9 pg/mL Test 07/25/17 11:08 07/25/17 11:32 Prothrombin Time 11.4 SECONDS Prothromb Time International Ratio 1.1 Activated Partial Thromboplast Time 26.6 SECONDS Partial Thromboplastin Ratio 1.0 Bedside Glucose 152 mg/dl Assessment and Plan 82 yo female with weakness, new diagnosis of atrial fibrillation, now with bradycardia and hypotension - Bradycardia and hypotension: likely due to increased levels of Atenolol and Diltiazem and Amiodarone with renal failure treated with Dopamine, weaned off yesterday Amiodarone and Atenolol and Diltiazem stopped indefinitely Atenolol renally excreted, possible that it build up in system echo - normal EF, no WM abnormalities, atrial enlargement, RV dilated but good function cardiology following EKG showed no ST elevations random cortisol level normal - PATY with hyperkalemia, decreased urine output Cr down to 2.1 this morning, adequate UO K normal etiology likely poor perfusion with hypotension and bradycardia renal US done as outpatient, normal appearing kidneys - Atrial fibrillation, permanent, rates now elevated, BP up start Metoprolol 25mg q6 heparin for anticoagulation holding Amiodarone, Diltiazem and Atenolol with bradycardia Dr. Venegas would not resume Amiodarone - DVT Prophylaxis: Heparin SC - Elevated LFT: likely some mild transaminitis from hypotension trending down with better perfusion - Weakness and falls may be due to bradycardia at home that was intermittent no focal neurological deficits would consider MRI brain but she cannot have one due to bladder implant will resume work up once bradycardia treated may reconsider neurology consult when she is hemodynamically stable a lot of her issues likely due to lumbar stenosis, known to be severe 5 years ago when surgery recommended Level 1 to tele today
[2017-07-25 18:15] LABS: PTT PATIENT 48.5 SECONDS (21.0-31.0)
[2017-07-25] MEDS: RANITIDINE HCL 150 MG TAB PO SCH (20:06)
[2017-07-25] MEDS: ATORVASTATIN 20 MG TAB PO SCH (20:06)
[2017-07-25] MEDS: GABAPENTIN 100 MG CAP PO SCH (20:06)
[2017-07-25] MEDS: NORTRIPTYLINE HCL 10 MG CAP PO SCH (20:07)
[2017-07-25] MEDS: NORTRIPTYLINE HCL 25 MG CAP PO SCH (20:07)
[2017-07-25] MEDS ORDERED: METOPROLOL TARTRATE 25 MG TAB PO ONE (21:00)
[2017-07-25] MEDS ORDERED: LORAZEPAM 0.5 MG TAB PO STA (21:51)
[2017-07-25] MEDS ORDERED: IPRATROPIUM BROMIDE NEB SOLN 0.02% 2.5 ML VIAL INH STA (22:51)
[2017-07-25] MEDS ORDERED: PANTOprazole SOD 40 MG TAB PO STA (23:30)
[2017-07-25] MEDS ORDERED: SODIUM CHLORIDE 0.9% 500ML 500 ML IV ONE (23:45)
[2017-07-26] VITALS (10 sets, daily range): BP systolic 120–168; BP diastolic 80–96; PULSE 67–127; TEMP 36.7–37.3; O2SAT 90–99
[2017-07-26] MEDS ORDERED: DILTIAZEM HCL 5 MG/ML 5 ML VIAL IV STA (01:16)
[2017-07-26] MEDS ORDERED: LEVALBUTEROL/IPRATROPIUM NEB INH SCH (03:00)
[2017-07-26] MEDS: LEVALBUTEROL 1.25MG/0.5ML NEB INH SCH ×4 (03:00→19:58)
[2017-07-26] MEDS: IPRATROPIUM BROMIDE NEB SOLN 0.02% 2.5 ML VIAL INH SCH ×4 (03:00→19:58)
[2017-07-26] MEDS: SODIUM CHLORIDE 0.9% 1000ML 1,000 ML IV SCH (03:05)
[2017-07-26 04:10] LABS: HEMATOCRIT 31.1 % (37-47); HEMOGLOBIN 9.6 g/dL (12.0-16.0); MEAN CORPUSCULAR HEMOGLOBIN 31.2 pg (25-34); MEAN CORPUSCULAR HGB CONC 30.9 g/dl (32-36); MEAN PLATELET VOLUME 10.6 fL (7.4-10.4); PLATELET COUNT 135 K/uL (130-400); RED CELL DISTRIBUTION WIDTH CV 15.2 % (11.5-14.5); RED CELL DISTRIBUTION WIDTH SD 55.8 fL (36.4-46.3); WHITE BLOOD COUNT 8.26 K/uL (4.8-10.8)
[2017-07-26 04:30] LABS: PTT PATIENT 68.1 SECONDS (21.0-31.0)
[2017-07-26 04:36] LABS: CALCIUM 7.9 mg/dl (8.5-10.1); CREATININE 1.54 mg/dl (0.60-1.20); POTASSIUM 4.6 mmol/L (3.5-5.1)
[2017-07-26] MEDS: METOPROLOL TARTRATE 25 MG TAB PO SCH ×4 (05:06→22:07)
[2017-07-26] MEDS: LEVOTHYROXINE 25 MCG TAB PO SCH (05:08)
--- NOTE | 2017-07-26 05:58 | DIAGNOSTIC IMAGING REPORT ---
CHEST ONE VIEW PORTABLE CLINICAL HISTORY: SOB dyspnea COMPARISON STUDY: 07/22/2017 FINDINGS: Developing components of congestive failure. Diaphragms smooth. Slight blunting right lateral costophrenic angle. Increased prominence of the pulmonary vasculature compared to the prior study. IMPRESSION: Developing components of congestive heart failure The above report was generated using voice recognition software. It may contain grammatical, syntax or spelling errors. Electronically signed by: Perry Weiss M.D. 07/26/2017 5:57 AM Dictated Date/Time: 07/26/2017 5:56 AM
[2017-07-26] MEDS: INSULIN ASPART 100 UNITS/ML 3 ML PEN SC SCH ×4 (07:00→20:35)
[2017-07-26] MEDS ORDERED: FUROSEMIDE 40 MG/4 ML VIAL ONE (07:44)
[2017-07-26] MEDS ORDERED: DIGOXIN IV 250 MCG in SYRINGE 9 ML IV ONE (08:00)
[2017-07-26] MEDS ORDERED: FUROSEMIDE INJ 40 MG in SYRINGE 0 ML IV ONE ×2 (08:00→16:00)
[2017-07-26] MEDS: HEPARIN 25,000 UNIT/500ML D5W 500 ML IV SCH (09:13)
--- NOTE | 2017-07-26 09:14 | Nephrology Progress Note ---
Nephrology Progress Note Date of Service Jul 26, 2017. Chief Complaint PAYT/CKD Subjective Tiffanie had a difficult evening. She did not sleep yesterday evening. Noted that she received IV diltiazem as well as a saline bolus for hypotension and tachycardia. She continues to have significant dyspnea which was worsening. IV furosemide provided this morning. I reviewed her CXR and discussed the plan of care with Tiffanie and her . No chest pain or palpitations. Tiffanie is tired and dyspneic. She denies any chest pain. Review of Systems A complete review of systems was performed. Pertinent positives are noted above. All other systems are negative. Vital Signs Last 8 Hrs Date Time Temp Pulse Resp B/P (MAP) Pulse Ox O2 Delivery O2 Flow Rate FiO2 07/26/17 08:10 136 07/26/17 08:00 Nasal Cannula 2.0 07/26/17 07:30 37.3 67 20 168/85 (112) 92 07/26/17 06:54 89 22 90 Nasal Cannula 2.0 07/26/17 04:00 Nasal Cannula 2.0 07/26/17 03:30 37.3 112 20 120/89 (99) 99 Nasal Cannula 2.0 07/26/17 01:11 118 168/96 (120) Last Recorded Weight Weight (Kilograms): 93.000 Physical Exam General Appearance: + mild distress, + pertinent finding (elderly, frail) Head: normocephalic, atraumatic Eyes: normal inspection, sclerae normal ENT: normal ENT inspection, + pertinent finding (oral mucosa dry, O2 NC) Neck: supple, no JVD (JVP 10-12 cm) Respiratory/Chest: + respiratory distress (mild), + decreased breath sounds, + wheezing Cardiovascular: no gallop, + tachycardia, + irregularly irregular Abdomen/GI: non tender, soft Genitourinary - Female: + pertinent finding (Dean draining yellow urine) Extremities/Musculoskelatal: + pedal edema Neurologic/Psych: alert, normal mood/affect Family History FH: lung disease FHx: heart disease Hypertension Social History Smoking Status: Never smoker Marital Status: Occupation: retired Laboratory Results Past 24 Hours 07/26/17 03:38 07/26/17 03:38 Test 07/25/17 11:08 07/25/17 11:32 07/25/17 16:07 07/25/17 17:32 Prothrombin Time 11.4 SECONDS (9.0-12.0) Prothromb Time International Ratio 1.1 (0.9-1.1) Activated Partial Thromboplast Time 26.6 SECONDS (21.0-31.0) 48.5 SECONDS (21.0-31.0) Partial Thromboplastin Ratio 1.0 1.9 Bedside Glucose 152 mg/dl (70-90) 138 mg/dl (70-90) Test 07/25/17 20:48 07/26/17 03:38 07/26/17 06:47 Bedside Glucose 178 mg/dl (70-90) 154 mg/dl (70-90) Red Blood Count 3.08 M/uL (4.2-5.4) Mean Corpuscular Volume 101.0 fL (80-100) Mean Corpuscular Hemoglobin 31.2 pg (25-34) Mean Corpuscular Hemoglobin Concent 30.9 g/dl (32-36) RDW Standard Deviation 55.8 fL (36.4-46.3) RDW Coefficient of Variation 15.2 % (11.5-14.5) Mean Platelet Volume 10.6 fL (7.4-10.4) Activated Partial Thromboplast Time 68.1 SECONDS (21.0-31.0) Partial Thromboplastin Ratio 2.6 Anion Gap 5.0 mmol/L (3-11) Est Creatinine Clear Calc Drug Dose 29.8 ml/min Estimated GFR () 36.6 Estimated GFR (Non- 31.5 BUN/Creatinine Ratio 19.3 (10-20) Calcium Level 7.9 mg/dl (8.5-10.1) Iron Level 20 mcg/dl (35-150) Transferrin 201 mg/dl (200-360) Transferrin % Saturation 0 % (15-50) Allergies Coded Allergies: Iodine (Verified Allergy, Severe, ANAPHYLAXIS, 07/16/17) Shellfish (Verified Allergy, Severe, ANAPHYLAXIS, 07/16/17) Paroxetine (Verified Allergy, Unknown, GI UPSET, 07/16/17) Medications Current Inpatient Medications Medications (Trade) Dose Ordered Sig/Herlinda Route Start Time Stop Time Status Last Admin Dose Admin Atorvastatin Calcium (Lipitor Tab) 20 mg QPM PO 07/22/17 21:00 08/21/17 20:59 07/25/17 20:06 20 MG Nortriptyline HCl (Pamelor Cap) 10 mg HS PO 07/22/17 21:00 08/21/17 20:59 07/25/17 20:07 10 MG Nortriptyline HCl (Pamelor Cap) 25 mg HS PO 07/22/17 21:00 08/21/17 20:59 07/25/17 20:07 25 MG Ranitidine HCl (zANTac TAB) 150 mg HS PO 07/22/17 21:00 08/21/17 20:59 07/25/17 20:06 150 MG Tapentadol (Nucynta Tab) 50 mg BID PRN PO 07/22/17 16:30 08/21/17 16:29 07/24/17 22:50 50 MG Cyanocobalamin (Vitamin B-12 Tab) 1,000 mcg QAM PO 07/23/17 08:00 08/22/17 08:59 07/25/17 08:20 1,000 MCG Pantoprazole Sodium (Protonix Tab) 40 mg QAM PO 07/23/17 08:00 08/22/17 08:59 07/25/17 08:20 40 MG Acetaminophen (Tylenol Tab) 650 mg Q4H PRN PO 07/22/17 16:30 08/21/17 16:29 07/23/17 15:40 650 MG Al Hydrox/Mg Hydrox/Simethicone (Maalox Max Susp) 15 ml Q4H PRN PO 07/22/17 16:30 08/21/17 16:29 Magnesium Hydroxide (Milk Of Magnesia Susp) 30 ml Q6H PRN PO 07/22/17 16:30 08/21/17 16:29 Polyethylene (Miralax Powder Packet) 17 gm DAILY PRN PO 07/22/17 16:30 08/21/17 16:29 Ondansetron HCl (Zofran Inj) 4 mg Q6H PRN IV 07/22/17 16:30 08/21/17 16:29 07/23/17 15:41 4 MG Miscellaneous (Iv Fluids Completed) 1 ea PRN PRN N/A 07/22/17 18:45 07/22/18 18:44 Insulin Aspart (novoLOG ASPART) SLIDING SCALE G... ACHS SC 07/23/17 16:30 08/22/17 16:29 07/25/17 20:53 1 UNITS Glucose (Glucose 40% Gel) 15-30 GRAMS 15 GRAMS... UD PRN PO 07/23/17 15:15 08/22/17 15:14 Glucose (Glucose Chew Tab) 4-8 Tablets 4 Tabl... UD PRN PO 07/23/17 15:15 08/22/17 15:14 Dextrose (Dextrose 50% 50ML Syringe) 25-50ML OF 50% DW IV FOR... UD PRN IV 07/23/17 15:15 08/22/17 15:14 Glucagon (Glucagon Inj) 1 mg UD PRN SQ 07/23/17 15:15 08/22/17 15:14 Levothyroxine Sodium (Synthroid Tab) 25 mcg DAILYBB PO 07/25/17 06:00 08/24/17 05:59 07/26/17 05:08 25 MCG Heparin Sodium/ Dextrose 500 ml @ 23 mls/hr [id number] IV 07/25/17 11:05 08/24/17 11:04 07/25/17 11:36 23 MLS/HR Gabapentin (Neurontin Cap) 200 mg QPM PO 07/25/17 21:00 08/24/17 20:59 07/25/17 20:06 200 MG Ipratropium Wayne (Atrovent 0.02% 0.5MG/2.5ML Neb) 0.5 mg Q6R INH 07/26/17 03:00 08/25/17 02:59 07/26/17 06:53 0.5 MG Levalbuterol (Xopenex 1.25MG/ 0.5ML Neb) 1.25 mg Q6R INH 07/26/17 03:00 08/25/17 02:59 07/26/17 06:53 1.25 MG Metoprolol Tartrate (Lopressor Tab) 50 mg Q6H PO 07/26/17 11:00 08/24/17 10:59 Metoprolol Tartrate (Lopressor Iv) 5 mg Q4 PRN IV 07/26/17 08:00 08/25/17 07:59 Impression (1) PATY (acute kidney injury) (2) Hyperkalemia (3) Anemia (4) Hypertension (5) Atrial fibrillation with controlled ventricular rate (6) Falls frequently Tiffanie is an 82 year-old female with CKD III, baseline creatinine 1.3- 1.6 [address] [facility] with generalized weakness, bradycardia and persistent hypotension. On admission, she was found to have acute kidney injury creatinine 2.1 mg/dL which rapidly worsened over 24 hours to 3.1 mg/dL. She also developed hyperkalemia. Creatinine has improved to 2.12 mg/dL this morning. The patient is non oliguric. Urine notable for a few hyaline cast. PATY likely prerenal in the setting of hemodynamic changes including bradycardia and hypotension. Clinical presentation likely related to atenolol and amiodarone. Amiodarone has been discontinued and atenolol converted to metoprolol. Digoxin was added. Tiffanie developed respiratory distress overnight. She has evidence of increasing congestive failure and volume overload. She was in a positive fluid balance yesterday. UOP appropriately responsive to IV furosemide. Creatinine has returned to baseline. This will be monitored in the setting of hemodynamic changes. CKD has been attributed to hypertensive nephropathy, microvascular disease or chronic tubular interstitial fibrosis. PATY related to CRS. Recommendations PATY: -- Document I/O's -- Medications appropriate for renal function -- Furosemide PRN to maintain negative fluid balance -- Repeat metabolic profile tomorrow AM Anemia: -- Monitor, no role for SUN at this time -- Lab notified regarding T sat reporting Spinal stenosis: -- Pain reasonably controlled this morning -- Low dose opiate may be considered for comfort in the setting of acute illness CKD: -- Outpatient follow up will be arranged at discharge -- Labs notable for some evidence of CKD/MBD including secondary hyperparathyroidism, which can be addressed as an outpatient
[2017-07-26] MEDS: CYANOCOBALAMIN 500 MCG TAB (VIT B-12) PO SCH (10:19)
[2017-07-26] MEDS: PANTOprazole SOD 40 MG TAB PO SCH (10:19)
--- NOTE | 2017-07-26 11:00 | CARDIOLOGY PROGRESS NOTE ---
DATE: 07/26/2017 TIME: 9:53 a.m. SUBJECTIVE: Ms. Porter had a rough night. She was quite short of breath overnight and had to sit upright in bed due to shortness of breath. She became more tachycardic as well. She was given IV diltiazem, which was followed by hypotension. She was then given more IV fluids in the form of normal saline 500 mL as a bolus. She also had 100 mL of normal saline per hour for the past 3 days. This morning nursing staff contacted Dr. Vargas. He gave her a dose of Lasix 40 mg IV. He also increased her metoprolol to 50 mg q. 6 hours and gave her a dose of digoxin 250 mcg IV x1 at 8:10 a.m. Less than 2 hours following the Lasix administration, she has already diuresed what appears to be greater than 1 L of urine and her breathing has improved significantly. Her heart rate has also improved. She denies chest pain, palpitations, syncope, near syncope. OBJECTIVE: VITAL SIGNS: Temperature 37.3 degrees, heart rate 120 beats per minute, respiration rate 20, blood pressure 168/85 mmHg, oxygen saturation 92% on 2 L per nasal cannula. I's and O's positive 890 mL yesterday. So far charted, she is positive 1.2 L here but once again she has already diuresed greater than 1 L in the last 2 hours, which is not yet recorded in her chart. Weight 93 kg. GENERAL: No acute distress. She is alert. NECK: Difficult exam, but she does appear to have elevated JVD. CARDIAC EXAM: No ventricular heave, irregularly irregular, normal S1, S2. There were no audible murmurs, rubs or gallops. LUNGS: There are some basilar rales bilaterally and some expiratory wheezing noted. ABDOMEN: Soft, nondistended, normoactive bowel sounds. EXTREMITIES: Trace to 1+ bilateral lower extremity edema. No cyanosis. MEDICATIONS: Include Lipitor 20 mg daily, Lasix 40 mg IV x1, digoxin 250 mcg IV x1, heparin drip, metoprolol tartrate 50 mg p.o. q. 6 hours scheduled to start soon, otherwise, she had been receiving 25 mg p.o. q. 6 hours, nortriptyline 35 mg at bedtime, Protonix 40 mg daily, ranitidine 150 mg at bedtime. Telemetry personally reviewed. Atrial fibrillation with rapid ventricular response. Her heart rate has increased since yesterday. LABORATORY DATA: White blood cell count 8.26, hemoglobin 9.6, platelets 135. Sodium 138, potassium 4.6, BUN 30, creatinine 1.54, down from 2.12. Chest x-ray 07/25/2017, developing CHF per radiology. Chest x-ray image personally reviewed. There are mildly prominent vascular markings. No obvious infiltrate on personal review. The patient's care has been discussed with nephrology, Dr. Henderson as well as primary hospitalist, Dr. Vargas. ASSESSMENT AND PLAN: 1. Atrial fibrillation: Although she developed bradycardia earlier in this hospitalization while on diltiazem, atenolol, and amiodarone, she now has rapid ventricular response. Amiodarone, diltiazem, and atenolol have been replaced with metoprolol. Agree with increased metoprolol 50 mg p.o. q. 6 hours and that is starting now. She also received digoxin IV 250 mcg by primary service. If necessary, could finish the load of the digoxin later today but hopefully metoprolol will offer better control. Her heart rate may also improve as her work of breathing improves. Continue heparin for anticoagulation therapy for stroke risk reduction. 2. Shortness of breath: She appears hypervolemic. This is likely iatrogenic as she has been receiving IV fluids and received a bolus overnight. Agree with diuresis. She is diuresing well and her breathing has improved. 3. Hypervolemia: As above. Agree with diuresis. 4. Mitral and tricuspid regurgitation: These can be followed by Dr. Venegas, her primary baggage smasher as an outpatient. 5. Pulmonary hypertension: She does have obstructive sleep apnea per records. This can be followed by Dr. Venegas. 6. Hypertension: Can continue beta abilio. She is receiving diuretics. She has been mostly hypertensive in the past 24 hours, although she was transiently hypotensive following diltiazem IV given overnight by hospitalist service. 7. Disposition: Dr. Venegas will resume her cardiology care tomorrow. The patient's care has been discussed with Dr. Vargas of the primary hospitalist service as well as nephrology service with Dr. Henderson.
--- NOTE | 2017-07-26 13:48 | Progress Note ---
Subjective Date of Service: Jul 26, 2017. Subjective Pt evaluation today including: conversation w/ patient, conversation w/ family , physical exam, lab review, review of studies, conversation w/ network pricing consultant, review of inpatient medication list Pain: low back pain PO Intake: poor appetite today with breathing Voiding: del rosario catheter in place patient more short of breath this morning, says she couldn't catch her breath all night CXR showed pulmonary congestion she had afib with RVR, got Lopressor 12.5mg PO x 1 and Diltiazem 10mg IV push caused transient drop in BP, received 500cc bolus rales on exam this morning, increased work of breathing, HR 120-140's afib gave Lasix 40mg IV x 1, Digoxin 250mcg IV x 1 and increased Lopressor to 50mg PO q6 revisited patient later in the morning, breathing much easier, already diuresed 1200cc, HR down 100-110's discussed the case with Dr. Rodas and Dr. Henderson reviewed labs, Cr down to 1.54, K normal, CBC stable Problem List Medical Problems: (1) Afib Status: Acute (2) Atrial fibrillation with controlled ventricular rate Status: Acute (3) Chronic anticoagulation Status: Acute (4) Fluid overload Status: Acute (5) Shortness of breath Status: Acute Review of Systems Constitutional: + weakness, + fatigue Respiratory: + wheezing, + shortness of breath, + dyspnea on exertion Cardiac: + orthopnea Psychiatric: + anxiety All Other Systems: Reviewed and Negative Medications Current Inpatient Medications Medications (Trade) Dose Ordered Sig/Herlinda Route Start Time Stop Time Status Last Admin Dose Admin Atorvastatin Calcium (Lipitor Tab) 20 mg QPM PO 07/22/17 21:00 08/21/17 20:59 07/25/17 20:06 20 MG Nortriptyline HCl (Pamelor Cap) 10 mg HS PO 07/22/17 21:00 08/21/17 20:59 07/25/17 20:07 10 MG Nortriptyline HCl (Pamelor Cap) 25 mg HS PO 07/22/17 21:00 08/21/17 20:59 07/25/17 20:07 25 MG Ranitidine HCl (zANTac TAB) 150 mg HS PO 07/22/17 21:00 08/21/17 20:59 4/21/18 20:06 150 MG Tapentadol (Nucynta Tab) 50 mg BID PRN PO 07/22/17 16:30 08/21/17 16:29 07/24/17 22:50 50 MG Cyanocobalamin (Vitamin B-12 Tab) 1,000 mcg QAM PO 07/23/17 08:00 08/22/17 08:59 07/26/17 10:19 1,000 MCG Pantoprazole Sodium (Protonix Tab) 40 mg QAM PO 07/23/17 08:00 08/22/17 08:59 07/26/17 10:19 40 MG Acetaminophen (Tylenol Tab) 650 mg Q4H PRN PO 07/22/17 16:30 08/21/17 16:29 07/23/17 15:40 650 MG Al Hydrox/Mg Hydrox/Simethicone (Maalox Max Susp) 15 ml Q4H PRN PO 07/22/17 16:30 08/21/17 16:29 Magnesium Hydroxide (Milk Of Magnesia Susp) 30 ml Q6H PRN PO 07/22/17 16:30 08/21/17 16:29 Polyethylene (Miralax Powder Packet) 17 gm DAILY PRN PO 07/22/17 16:30 08/21/17 16:29 Ondansetron HCl (Zofran Inj) 4 mg Q6H PRN IV 07/22/17 16:30 08/21/17 16:29 07/23/17 15:41 4 MG Miscellaneous (Iv Fluids Completed) 1 ea PRN PRN N/A 07/22/17 18:45 07/22/18 18:44 Insulin Aspart (novoLOG ASPART) SLIDING SCALE G... ACHS SC 07/23/17 16:30 08/22/17 16:29 07/25/17 20:53 1 UNITS Glucose (Glucose 40% Gel) 15-30 GRAMS 15 GRAMS... UD PRN PO 07/23/17 15:15 08/22/17 15:14 Glucose (Glucose Chew Tab) 4-8 Tablets 4 Tabl... UD PRN PO 07/23/17 15:15 08/22/17 15:14 Dextrose (Dextrose 50% 50ML Syringe) 25-50ML OF 50% DW IV FOR... UD PRN IV 07/23/17 15:15 5/19/18 15:14 Glucagon (Glucagon Inj) 1 mg UD PRN SQ 07/23/17 15:15 08/22/17 15:14 Levothyroxine Sodium (Synthroid Tab) 25 mcg DAILYBB PO 07/25/17 06:00 08/24/17 05:59 07/26/17 05:08 25 MCG Heparin Sodium/ Dextrose 500 ml @ 23 mls/hr [id number] IV 07/25/17 11:05 08/24/17 11:04 07/26/17 09:13 23 MLS/HR Gabapentin (Neurontin Cap) 200 mg QPM PO 07/25/17 21:00 08/24/17 20:59 07/25/17 20:06 200 MG Ipratropium [place] (Atrovent 0.02% 0.5MG/2.5ML Neb) 0.5 mg Q6R INH 07/26/17 03:00 08/25/17 02:59 07/26/17 06:53 0.5 MG Levalbuterol (Xopenex 1.25MG/ 0.5ML Neb) 1.25 mg Q6R INH 07/26/17 03:00 08/25/17 02:59 07/26/17 06:53 1.25 MG Metoprolol Tartrate (Lopressor Tab) 50 mg Q6H PO 07/26/17 11:00 08/24/17 10:59 07/26/17 10:18 50 MG Metoprolol Tartrate (Lopressor Iv) 5 mg Q4 PRN IV 07/26/17 08:00 08/25/17 07:59 Objective Vital Signs Date Time Temp Pulse Resp B/P (MAP) Pulse Ox O2 Delivery O2 Flow Rate FiO2 07/26/17 12:00 Nasal Cannula 2.0 07/26/17 11:24 37.0 108 18 161/85 (110) 98 07/26/17 08:10 136 07/26/17 08:00 Nasal Cannula 2.0 07/26/17 07:30 37.3 67 20 168/85 (112) 92 07/26/17 06:54 89 22 90 Nasal Cannula 2.0 07/26/17 04:00 Nasal Cannula 2.0 07/26/17 03:30 37.3 112 20 120/89 (99) 99 Nasal Cannula 2.0 07/26/17 01:11 118 168/96 (120) 07/25/17 23:59 Nasal Cannula 2.0 07/25/17 23:43 105 150/100 (117) 07/25/17 23:34 36.9 07/25/17 23:30 140/96 (111) 07/25/17 23:22 122 22 94 Nasal Cannula 2.0 07/25/17 22:56 129 24 86/50 (62) 100 Nasal Cannula 2.0 07/25/17 22:48 88/56 (67) 07/25/17 22:32 115 22 95 Nasal Cannula 2.0 07/25/17 20:00 94 Nasal Cannula 2.0 07/25/17 19:19 36.7 122 24 151/89 (109) 94 Nasal Cannula 1.0 07/25/17 18:32 121 22 94 Nasal Cannula 1.0 07/25/17 16:00 Nasal Cannula 2.0 07/25/17 15:54 36.6 101 18 149/85 (106) 97 Nasal Cannula 1.0 07/25/17 13:37 36.7 103 18 95 2.0 Physical Exam General Appearance: + moderate distress (this morning, improved with diuresis) , + obese Eyes: normal inspection, EOMI, sclerae normal ENT: normal ENT inspection, hearing grossly normal, pharynx normal Neck: supple, no adenopathy, no JVD, trachea midline Respiratory/Chest: chest non-tender, + respiratory distress, + accessory muscle use, + rales (bibasilar), + wheezing (mild, expiratory) Cardiovascular: no edema, no gallop, no JVD, no murmur, + tachycardia, + irregularly irregular Abdomen: normal bowel sounds, non tender, soft, no organomegaly Extremities: non-tender, normal inspection, no pedal edema, no calf tenderness , pelvis stable Neurologic/Psychiatric: 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, alert, normal mood/affect, oriented x 3, + motor weakness (lower legs bilaterally) Skin: normal color, warm/dry, no rash Laboratory Results Last 24 Hours Test 07/25/17 16:07 07/25/17 17:32 07/25/17 20:48 07/26/17 03:38 Bedside Glucose 138 mg/dl 178 mg/dl Activated Partial Thromboplast Time 48.5 SECONDS 68.1 SECONDS Partial Thromboplastin Ratio 1.9 2.6 White Blood Count 8.26 K/uL Red Blood Count 3.08 M/uL Hemoglobin 9.6 g/dL Hematocrit 31.1 % Mean Corpuscular Volume 101.0 fL Mean Corpuscular Hemoglobin 31.2 pg Mean Corpuscular Hemoglobin Concent 30.9 g/dl RDW Standard Deviation 55.8 fL RDW Coefficient of Variation 15.2 % Platelet Count 135 K/uL Mean Platelet Volume 10.6 fL Sodium Level 138 mmol/L Potassium Level 4.6 mmol/L Chloride Level 108 mmol/L Carbon Dioxide Level 25 mmol/L Anion Gap 5.0 mmol/L Blood Urea Nitrogen 30 mg/dl Creatinine 1.54 mg/dl Est Creatinine Clear Calc Drug Dose 29.8 ml/min Estimated GFR () 36.6 Estimated GFR (Non- 31.5 BUN/Creatinine Ratio 19.3 Random Glucose 157 mg/dl Calcium Level 7.9 mg/dl Iron Level 20 mcg/dl Transferrin 201 mg/dl Transferrin % Saturation 0 % Test 07/26/17 06:47 07/26/17 11:05 Bedside Glucose 154 mg/dl 174 mg/dl Assessment and Plan 82 yo female with weakness, new diagnosis of atrial fibrillation, now with bradycardia and hypotension - Acute diastolic heart failure with pulmonary edema due to IV fluids and Afib with RVR responded well to Lasix 40mg IV x 1 this AM will reassess this afternoon if she requires a second dose use Lasix PRN for now - Acute hypoxic respiratory failure: increased work of breathing, accessory muscle use, hypoxia improved with Lasix, not completely resolved continue Lasix PRN - Atrial fibrillation with RVR increase Lopressor to 50mg PO q6, Digoxin 250mcg one dose given rates improved to 100-110's while resting part of the RVR may have been due to stress from dyspnea heparin for anticoagulation, continue, will switch back to Eliquis once appropriate echo - normal EF, no WM abnormalities, atrial enlargement, RV dilated but good function was previously on Amiodarone, Diltiazem and Atenolol at time of admission, lead to bradycardia and hypotension Dr. Venegas following will give final recommendations at time of discharge - Bradycardia and hypotension: likely due to increased levels of Atenolol and Diltiazem and Amiodarone with renal failure treated with Dopamine, weaned off 07/25 Amiodarone and Atenolol and Diltiazem stopped indefinitely Atenolol renally excreted, possible that it build up in system echo - normal EF, no WM abnormalities, atrial enlargement, RV dilated but good function cardiology following EKG showed no ST elevations random cortisol level normal - PATY with hyperkalemia, decreased urine output Cr down to 1.5 this morning, diuresing with Lasix 40mg IV K normal etiology of PATY was likely poor perfusion with hypotension and bradycardia renal US done as outpatient, normal appearing kidneys - DVT Prophylaxis: Heparin drip - Elevated LFT: likely some mild transaminitis from hypotension trended down with better perfusion - Weakness and falls may be due to bradycardia at home that was intermittent no focal neurological deficits would consider MRI brain but she cannot have one due to bladder implant will resume work up once bradycardia treated may reconsider neurology consult when she is hemodynamically stable a lot of her issues likely due to lumbar stenosis, known to be severe 5 years ago when surgery recommended due for epidural injection on 07/30 but this will be put on hold Level 1 continue tele 40 minutes of critical care spent with patient today, she had Afib with RVR 140' s, acute respiratory distress, hypoxia
[2017-07-26] MEDS ORDERED: NURSING VERBAL MED ORDER ONE (15:45)
[2017-07-26] MEDS: NORTRIPTYLINE HCL 25 MG CAP PO SCH (20:31)
[2017-07-26] MEDS: RANITIDINE HCL 150 MG TAB PO SCH (20:31)
[2017-07-26] MEDS: ATORVASTATIN 20 MG TAB PO SCH (20:32)
[2017-07-26] MEDS: GABAPENTIN 100 MG CAP PO SCH (20:32)
[2017-07-26] MEDS: NORTRIPTYLINE HCL 10 MG CAP PO SCH (20:32)
[2017-07-26] MEDS: METOPROLOL TARTRATE 1 MG/ML VIAL IV PRN (21:18)
[2017-07-27] VITALS (10 sets, daily range): BP systolic 110–148; BP diastolic 45–84; PULSE 91–127; TEMP 36.6–36.9; O2SAT 92–96
[2017-07-27] MEDS: IPRATROPIUM BROMIDE NEB SOLN 0.02% 2.5 ML VIAL INH SCH ×4 (01:47→19:15)
[2017-07-27] MEDS: LEVALBUTEROL 1.25MG/0.5ML NEB INH SCH ×4 (01:47→19:15)
[2017-07-27] MEDS: LEVOTHYROXINE 25 MCG TAB PO SCH (05:00)
[2017-07-27] MEDS: METOPROLOL TARTRATE 25 MG TAB PO SCH ×4 (05:00→22:53)
--- NOTE | 2017-07-27 05:13 | Progress Note ---
Post ICU Progress Note Date & Time Jul 27, 2017 at 05:08 Vital Signs Vital Signs Past 12 Hours Date Time Temp Pulse Resp B/P (MAP) Pulse Ox O2 Delivery O2 Flow Rate FiO2 07/27/17 04:16 36.7 111 19 141/84 (103) 93 Room Air 07/27/17 01:47 91 18 95 Room Air 07/26/17 23:59 Nasal Cannula 2.0 07/26/17 23:10 36.7 108 18 141/80 (100) 98 Room Air 07/26/17 21:18 135 171/81 07/26/17 20:00 Nasal Cannula 2.0 07/26/17 19:59 115 18 95 Room Air 07/26/17 19:34 36.8 127 20 137/83 (101) 99 Nasal Cannula 2.0 Notes Mental Status: see Notes Nausea / Vomiting: adequately controlled Pain: adequately controlled Airway Patency, RR, SpO2: see Notes BP & HR: see Notes Patient is an 82-year-old female who was initially admitted to this facility for increasing falls and weakness. During a bowel movement, she developed episode of bradycardia as well as hypotension. This did not recover with tincture of time and patient was subsequent was placed on dobutamine to splicer helper in heart rate and blood pressure support. She had a relatively tumultuous first night in the ICU with waxing and waning blood pressures as well as heart rate. Eventually, by morning, her heart rate improved as did her blood pressure. She was subsequently downgraded from ICU status to telemetry. Per records, the patient subsequently developed rapid A. fib and worsening shortness of breath overnight last evening. Eventually, during daytime shift, she was treated with IV Lasix which greatly improved her symptoms. She is currently not requiring O2 at this point. On evaluation, the patient is resting comfortably. I did not awaken the patient during evaluation at this point. Consider outpatient follow up in 1 to 2 weeks with: Cardiology, PCP Repeat imaging needed: CXR if return of respiratory distress. Follow up cultures: None at this time. Reviewed progress notes, labs, and inpatient medication list Continue current management Additional recommendations: As above. No further recommendations at this point. Thank you for allowing us to participate in the care of this patient. At this time, Critical Care Services will sign off on this case. Please feel free to reconsult as needed. Consults & Procedures Consultants: Lois Venegas/Ana Paula Nephro - Anastacia/Santiago
[2017-07-27 06:31] LABS: HEMATOCRIT 32.6 % (37-47); HEMOGLOBIN 10.2 g/dL (12.0-16.0); MEAN CELL VOLUME 98.8 fL (80-100); MEAN CORPUSCULAR HEMOGLOBIN 30.9 pg (25-34); MEAN CORPUSCULAR HGB CONC 31.3 g/dl (32-36); MEAN PLATELET VOLUME 10.9 fL (7.4-10.4); PLATELET COUNT 165 K/uL (130-400); RED CELL DISTRIBUTION WIDTH CV 15.1 % (11.5-14.5); RED CELL DISTRIBUTION WIDTH SD 54.4 fL (36.4-46.3)
[2017-07-27 06:51] LABS: PTT PATIENT 58.9 SECONDS (21.0-31.0)
[2017-07-27 07:35] LABS: ALBUMIN 2.8 gm/dl (3.4-5.0); CALCIUM 8.5 mg/dl (8.5-10.1); CREATININE 1.3 mg/dl (0.60-1.20); PHOSPHORUS 3.2 mg/dl (2.5-4.9); POTASSIUM 3.6 mmol/L (3.5-5.1)
[2017-07-27] MEDS: PANTOprazole SOD 40 MG TAB PO SCH (08:25)
[2017-07-27] MEDS: CYANOCOBALAMIN 500 MCG TAB (VIT B-12) PO SCH (08:25)
[2017-07-27] MEDS: HEPARIN 25,000 UNIT/500ML D5W 500 ML IV SCH (08:40)
[2017-07-27] MEDS: INSULIN ASPART 100 UNITS/ML 3 ML PEN SC SCH ×4 (08:40→20:20)
--- NOTE | 2017-07-27 09:03 | Cardiology Follow-Up ---
Subjective General Date of Service: Jul 27, 2017. Pt evaluation today including: conversation w/ patient, chart review, lab review, review of studies History of Present Illness The patient is a 82 year old female Allergies Coded Allergies: Iodine (Verified Allergy, Severe, ANAPHYLAXIS, 07/16/17) Shellfish (Verified Allergy, Severe, ANAPHYLAXIS, 07/16/17) Paroxetine (Verified Allergy, Unknown, GI UPSET, 07/16/17) Social History Smoking Status: Never Smoker Hx Tobacco Use In Past Year?: No Hx Alcohol Use - Type And Amou: Yes (RARELY) Hx Substance Use - Type And Am: No Problem List Medical Problems: (1) Afib Status: Acute (2) Atrial fibrillation with controlled ventricular rate Status: Acute (3) Chronic anticoagulation Status: Acute (4) Fluid overload Status: Acute (5) Shortness of breath Status: Acute Review of Systems Respiratory: No cough, No shortness of breath, No dyspnea at rest Cardiac: No chest pain, No orthopnea, No edema, No palpitations Additional ROS Details: feeling stronger Physical Exam Vital Signs Last Vital Signs Documentation Date Time Temp Pulse Resp B/P (MAP) Pulse Ox O2 Delivery O2 Flow Rate FiO2 07/27/17 07:38 36.7 121 20 148/45 (79) 95 Room Air 07/27/17 04:00 2.0 Physical Exam Constitutional: General Apperance: heathly-appearing Level of Distress: NAD Lungs: Respiratory effort: no dyspnea Auscultation: breath sounds normal, no wheezing, no rales/crackles, no rhonchi Cardiovascular: Heart Auscultation: no murmurs, no rubs, irregular rate rhythm (Tachycardic) Abdomen: Bowel Sounds: normal Inspection & Palpation: soft, non-distended, no tenderness, guarding & rebound Extremities: no edema Assessment and Plan Assessment and Plan 1. Iatrogenic CHF 2. Atrial fibrillation with a period of bradycardia yesterday night-- now with fast HR's. 3. Normal left ventricular size and function. 4. At least moderate biatrial enlargement. 5. Mild pulmonary hypertension with moderate-to severe tricuspid regurgitation. 6. Significant leg weakness and ambulatory dysfunction. 7. Obstructive sleep apnea, not using CPAP. 8. 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 Consider outpt CPAP trial to unload RV and help with HR Laboratory Results Last 24 Hours Test 07/26/17 11:05 07/26/17 16:17 07/26/17 20:33 07/27/17 05:53 Bedside Glucose 174 mg/dl 156 mg/dl 160 mg/dl White Blood Count 7.00 K/uL Red Blood Count 3.30 M/uL Hemoglobin 10.2 g/dL Hematocrit 32.6 % Mean Corpuscular Volume 98.8 fL Mean Corpuscular Hemoglobin 30.9 pg Mean Corpuscular Hemoglobin Concent 31.3 g/dl RDW Standard Deviation 54.4 fL RDW Coefficient of Variation 15.1 % Platelet Count 165 K/uL Mean Platelet Volume 10.9 fL Activated Partial Thromboplast Time 58.9 SECONDS Partial Thromboplastin Ratio 2.3 Test 07/27/17 06:01 07/27/17 06:58 Sodium Level 140 mmol/L Potassium Level 3.6 mmol/L Chloride Level 101 mmol/L Carbon Dioxide Level 31 mmol/L Anion Gap 8.0 mmol/L Blood Urea Nitrogen 23 mg/dl Creatinine 1.30 mg/dl Est Creatinine Clear Calc Drug Dose 34.3 ml/min Estimated GFR () 44.9 Estimated GFR (Non- 38.7 BUN/Creatinine Ratio 17.3 Random Glucose 148 mg/dl Calcium Level 8.5 mg/dl Phosphorus Level 3.2 mg/dl Albumin 2.8 gm/dl Bedside Glucose 151 mg/dl
--- NOTE | 2017-07-27 09:55 | Progress Note ---
Subjective Date of Service: Jul 27, 2017. Subjective Pt evaluation today including: conversation w/ patient, physical exam, chart review, lab review, review of studies, conversation w/ optimization consultant, review of inpatient medication list Voiding: del rosario catheter in place sitting in bed, pleasant, still Afib hr around 110, no c/o, occasional cough, denies chest pain and edama Problem List Medical Problems: (1) Afib Status: Acute (2) Atrial fibrillation with controlled ventricular rate Status: Acute (3) Chronic anticoagulation Status: Acute (4) Fluid overload Status: Acute (5) Shortness of breath Status: Acute Review of Systems Constitutional: + weakness, + fatigue, No fever, No chills, No sweats, No weight loss, No problem reported Eyes: No worsening of vision, No eye pain, No redness, No discharge, No diplopia ENT: No hearing loss, No unusual epistaxis, No nasal symptoms, No sore throat, No tinnitus, No dental problems, No trouble swallowing Respiratory: + cough, No sputum, No wheezing, No shortness of breath, No dyspnea on exertion, No dyspnea at rest, No hemoptysis Cardiac: No chest pain, No orthopnea, No PND, No edema, No claudication, No palpitations Abdomen: No pain, No nausea, No vomiting, No diarrhea, No constipation Musculoskeletal: No joint pain, No muscle pain, No swelling, No calf pain Female : No dysuria, No urinary frequency, No hematuria, No incontinence, No abnormal vaginal bleeding, No vaginal discharge Neurologic: No memory loss, No paralysis, No weakness, No numbness/tingling, No vertigo, No balance problems Psychiatric: No depression symptoms, No anhedonism, No anxiety, No insomnia, No substance abuse Heme: No abnormal bleeding/bruising, No clotting problems, No swollen lymph nodes, No night sweats Endo: No fatigue, No excessive thirst, No excessive urination Skin: No rash, No itch, No new/changing skin lesions, No color change, No bleeding Objective Vital Signs Date Time Temp Pulse Resp B/P (MAP) Pulse Ox O2 Delivery O2 Flow Rate FiO2 07/27/17 07:38 36.7 121 20 148/45 (79) 95 Room Air 07/27/17 06:57 116 18 94 Room Air 07/27/17 04:16 36.7 111 19 141/84 (103) 93 Room Air 07/27/17 04:00 Nasal Cannula 2.0 07/27/17 01:47 91 18 95 Room Air 07/26/17 23:59 Nasal Cannula 2.0 07/26/17 23:10 36.7 108 18 141/80 (100) 98 Room Air 07/26/17 21:18 135 171/81 07/26/17 20:00 Nasal Cannula 2.0 07/26/17 19:59 115 18 95 Room Air 07/26/17 19:34 36.8 127 20 137/83 (101) 99 Nasal Cannula 2.0 07/26/17 16:00 Nasal Cannula 2.0 07/26/17 15:36 36.9 115 22 151/95 (113) 97 Nasal Cannula 2.0 07/26/17 14:09 102 18 95 Nasal Cannula 2.0 07/26/17 12:00 Nasal Cannula 2.0 07/26/17 11:24 37.0 108 18 161/85 (110) 98 Physical Exam General Appearance: WD/WN, no apparent distress, + obese Eyes: normal inspection, PERRL, EOMI, sclerae normal ENT: normal ENT inspection, hearing grossly normal, pharynx normal Neck: supple, no adenopathy, thyroid normal, no JVD, no carotid bruits, trachea midline Respiratory/Chest: chest non-tender, no respiratory distress, no accessory muscle use, + decreased breath sounds, + wheezing (occasional ) Cardiovascular: no edema, no gallop, no JVD, no murmur, + irregularly irregular Abdomen: normal bowel sounds, non tender, soft, no organomegaly, no pulsatile mass, + pertinent finding (del rosario in place) Extremities: normal range of motion, non-tender, normal inspection, no pedal edema, no calf tenderness, normal capillary refill, pelvis stable Neurologic/Psychiatric: 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, no motor/sensory deficits, alert, normal mood/affect, oriented x 3 Skin: normal color, warm/dry, no rash Lymphatic: no adenopathy Laboratory Results Last 24 Hours Test 07/26/17 11:05 07/26/17 16:17 07/26/17 20:33 07/27/17 05:53 Bedside Glucose 174 mg/dl 156 mg/dl 160 mg/dl White Blood Count 7.00 K/uL Red Blood Count 3.30 M/uL Hemoglobin 10.2 g/dL Hematocrit 32.6 % Mean Corpuscular Volume 98.8 fL Mean Corpuscular Hemoglobin 30.9 pg Mean Corpuscular Hemoglobin Concent 31.3 g/dl RDW Standard Deviation 54.4 fL RDW Coefficient of Variation 15.1 % Platelet Count 165 K/uL Mean Platelet Volume 10.9 fL Activated Partial Thromboplast Time 58.9 SECONDS Partial Thromboplastin Ratio 2.3 Test 07/27/17 06:01 07/27/17 06:58 Sodium Level 140 mmol/L Potassium Level 3.6 mmol/L Chloride Level 101 mmol/L Carbon Dioxide Level 31 mmol/L Anion Gap 8.0 mmol/L Blood Urea Nitrogen 23 mg/dl Creatinine 1.30 mg/dl Est Creatinine Clear Calc Drug Dose 34.3 ml/min Estimated GFR () 44.9 Estimated GFR (Non- 38.7 BUN/Creatinine Ratio 17.3 Random Glucose 148 mg/dl Calcium Level 8.5 mg/dl Phosphorus Level 3.2 mg/dl Albumin 2.8 gm/dl Bedside Glucose 151 mg/dl Assessment and Plan 82 yo female admitted on july 22, 2017 with weakness, new diagnosis of atrial fibrillation, was having bradycardia and hypotension, now still afib with mild RVR at 110, still on heparin drip Acute diastolic heart failure with pulmonary edema, secondary to IV fluids and Afib with RVR, use Lasix PRN for now Acute hypoxic respiratory failure secondary to Acute diastolic heart failure with pulmonary edema , and Afib with RVR , improved with Lasix, better Atrial fibrillation with RVR, better, increase Lopressor to 50mg PO q6, Digoxin 250mcg one dose given yesterday, discussed with marketing graphics specialist, started Cardizem CD, changed heparin back to Eliquis , no dig because of concern cause renal failure was previously on Amiodarone, Diltiazem and Atenolol at time of admission, lead to bradycardia and hypotension echo - normal EF, no WM abnormalities, atrial enlargement, RV dilated but good function Bradycardia and hypotension: likely due to increased levels of Atenolol and Diltiazem and Amiodarone with renal failure, resolved, treated with Dopamine, weaned off 07/25, Amiodarone and Atenolol stopped indefinitely PATY with hyperkalemia, decreased urine output, Cr 1.5 to 1.3 continue improving , etiology of PATY was likely poor perfusion with hypotension and bradycardiam, renal US done as outpatient, normal appearing kidneys, dc miguel ángel DVT Prophylaxis: jose ramonqudarren now Weakness and falls, may be due to bradycardia at home that was intermittent, better\ a lot of her issues likely due to lumbar stenosis, known to be severe 5 years ago when surgery recommended, due for epidural injection on 07/30 but this will be put on hold MELECIO del rosario, PT/OT, DC plan Level 1 continue tele Continued [facility] stay due to: multiple IV medications needed Discharge planning: uncertain
[2017-07-27] MEDS: DILTIAZEM HCL 120 MG CAPCR PO SCH (10:07)
[2017-07-27] MEDS: APIXABAN 2.5 MG TAB PO SCH ×2 (10:07→20:21)
[2017-07-27] MEDS: TAPENTADOL HCL 50 MG TAB PO PRN ×2 (12:18→18:42)
[2017-07-27] MEDS: ACETAMINOPHEN 325 MG TAB PO PRN (12:19)
--- NOTE | 2017-07-27 12:55 | Nephrology Progress Note ---
Nephrology Progress Note Date of Service Jul 27, 2017. Chief Complaint PATY/CKD Subjective No acute events overnight. Tiffanie is feeling much improved over the last 24 hours. She has some acute on chronic right shoulder discomfort attributed to OA. Dyspnea has dramatically improved. She remains weak. She denies chest pain or palpitations. She denies lightheadedness or presyncope. Her remains at the bedside. She would like to remove Dean catheter but does report some chronic urinary incontinence for which she uses pads. Review of Systems A complete review of systems was performed. Pertinent positives are noted above. All other systems are negative. Vital Signs Last 8 Hrs Date Time Temp Pulse Resp B/P (MAP) Pulse Ox O2 Delivery O2 Flow Rate FiO2 07/27/17 11:49 36.6 127 20 110/64 (79) 96 Room Air 07/27/17 08:00 Room Air 07/27/17 07:38 36.7 121 20 148/45 (79) 95 Room Air 07/27/17 06:57 116 18 94 Room Air Last Recorded Weight Weight (Kilograms): 89.000 Physical Exam General Appearance: WD/WN, no apparent distress Head: normocephalic, atraumatic Eyes: normal inspection, sclerae normal ENT: normal ENT inspection, pharynx normal Neck: supple, + JVD (JVP 10+ cm) Respiratory/Chest: no respiratory distress, no accessory muscle use, + wheezing Cardiovascular: + tachycardia, + irregularly irregular Abdomen/GI: non tender, soft Genitourinary - Female: + pertinent finding (Dean draining yellow urine) Extremities/Musculoskelatal: normal inspection, no pedal edema Neurologic/Psych: alert, normal mood/affect Family History FH: lung disease FHx: heart disease Hypertension Social History Smoking Status: Never smoker Marital Status: Occupation: retired Laboratory Results Past 24 Hours 07/27/17 05:53 07/27/17 06:01 Test 07/26/17 16:17 07/26/17 20:33 07/27/17 05:53 07/27/17 06:01 Bedside Glucose 156 mg/dl (70-90) 160 mg/dl (70-90) Red Blood Count 3.30 M/uL (4.2-5.4) Mean Corpuscular Volume 98.8 fL (80-100) Mean Corpuscular Hemoglobin 30.9 pg (25-34) Mean Corpuscular Hemoglobin Concent 31.3 g/dl (32-36) RDW Standard Deviation 54.4 fL (36.4-46.3) RDW Coefficient of Variation 15.1 % (11.5-14.5) Mean Platelet Volume 10.9 fL (7.4-10.4) Activated Partial Thromboplast Time 58.9 SECONDS (21.0-31.0) Partial Thromboplastin Ratio 2.3 Anion Gap 8.0 mmol/L (3-11) Est Creatinine Clear Calc Drug Dose 34.3 ml/min Estimated GFR () 44.9 Estimated GFR (Non- 38.7 BUN/Creatinine Ratio 17.3 (10-20) Calcium Level 8.5 mg/dl (8.5-10.1) Phosphorus Level 3.2 mg/dl (2.5-4.9) Albumin 2.8 gm/dl (3.4-5.0) Test 07/27/17 06:58 07/27/17 11:08 Bedside Glucose 151 mg/dl (70-90) 158 mg/dl (70-90) Allergies Coded Allergies: Iodine (Verified Allergy, Severe, ANAPHYLAXIS, 07/16/17) Shellfish (Verified Allergy, Severe, ANAPHYLAXIS, 07/16/17) Paroxetine (Verified Allergy, Unknown, GI UPSET, 07/16/17) Medications Current Inpatient Medications Medications (Trade) Dose Ordered Sig/Herlinda Route Start Time Stop Time Status Last Admin Dose Admin Atorvastatin Calcium (Lipitor Tab) 20 mg QPM PO 07/22/17 21:00 08/21/17 20:59 07/26/17 20:32 20 MG Nortriptyline HCl (Pamelor Cap) 10 mg HS PO 07/22/17 21:00 08/21/17 20:59 07/26/17 20:32 10 MG Nortriptyline HCl (Pamelor Cap) 25 mg HS PO 07/22/17 21:00 08/21/17 20:59 07/26/17 20:31 25 MG Ranitidine HCl (zANTac TAB) 150 mg HS PO 07/22/17 21:00 08/21/17 20:59 07/26/17 20:31 150 MG Tapentadol (Nucynta Tab) 50 mg BID PRN PO 07/22/17 16:30 08/21/17 16:29 07/27/17 12:18 50 MG Cyanocobalamin (Vitamin B-12 Tab) 1,000 mcg QAM PO 07/23/17 08:00 08/22/17 08:59 07/27/17 08:25 1,000 MCG Pantoprazole Sodium (Protonix Tab) 40 mg QAM PO 07/23/17 08:00 08/22/17 08:59 07/27/17 08:25 40 MG Acetaminophen (Tylenol Tab) 650 mg Q4H PRN PO 07/22/17 16:30 08/21/17 16:29 07/27/17 12:19 650 MG Al Hydrox/Mg Hydrox/Simethicone (Maalox Max Susp) 15 ml Q4H PRN PO 07/22/17 16:30 08/21/17 16:29 Magnesium Hydroxide (Milk Of Magnesia Susp) 30 ml Q6H PRN PO 07/22/17 16:30 08/21/17 16:29 Polyethylene (Miralax Powder Packet) 17 gm DAILY PRN PO 07/22/17 16:30 08/21/17 16:29 Ondansetron HCl (Zofran Inj) 4 mg Q6H PRN IV 07/22/17 16:30 08/21/17 16:29 07/23/17 15:41 4 MG Miscellaneous (Iv Fluids Completed) 1 ea PRN PRN N/A 07/22/17 18:45 07/22/18 18:44 Insulin Aspart (novoLOG ASPART) SLIDING SCALE G... ACHS SC 07/23/17 16:30 08/22/17 16:29 07/27/17 12:15 3 UNITS Glucose (Glucose 40% Gel) 15-30 GRAMS 15 GRAMS... UD PRN PO 07/23/17 15:15 08/22/17 15:14 Glucose (Glucose Chew Tab) 4-8 Tablets 4 Tabl... UD PRN PO 07/23/17 15:15 08/22/17 15:14 Dextrose (Dextrose 50% 50ML Syringe) 25-50ML OF 50% DW IV FOR... UD PRN IV 07/23/17 15:15 08/22/17 15:14 Glucagon (Glucagon Inj) 1 mg UD PRN SQ 07/23/17 15:15 08/22/17 15:14 Levothyroxine Sodium (Synthroid Tab) 25 mcg DAILYBB PO 07/25/17 06:00 08/24/17 05:59 07/27/17 05:00 25 MCG Gabapentin (Neurontin Cap) 200 mg QPM PO 07/25/17 21:00 08/24/17 20:59 07/26/17 20:32 200 MG Ipratropium [place] (Atrovent 0.02% 0.5MG/2.5ML Neb) 0.5 mg Q6R INH 07/26/17 03:00 08/25/17 02:59 07/27/17 06:57 0.5 MG Levalbuterol (Xopenex 1.25MG/ 0.5ML Neb) 1.25 mg Q6R INH 07/26/17 03:00 08/25/17 02:59 07/27/17 06:57 1.25 MG Metoprolol Tartrate (Lopressor Tab) 50 mg Q6H PO 07/26/17 11:00 08/24/17 10:59 07/27/17 10:07 50 MG Metoprolol Tartrate (Lopressor Iv) 5 mg Q4 PRN IV 07/26/17 08:00 08/25/17 07:59 07/26/17 21:18 5 MG Diltiazem HCl (Cardizem Cd Cap) 120 mg QAM PO 07/27/17 09:15 08/26/17 09:14 07/27/17 10:07 120 MG Apixaban (Eliquis Tab) 5 mg BID PO 07/27/17 09:30 08/26/17 09:29 07/27/17 10:07 5 MG Impression (1) PATY (acute kidney injury) (2) Hyperkalemia (3) Anemia (4) Hypertension (5) Atrial fibrillation with controlled ventricular rate (6) Falls frequently Tiffanie is an 82 year-old female with CKD III, baseline creatinine 1.3- 1.6 who was admitted to the [facility] with generalized weakness, bradycardia and persistent hypotension. On admission, she had non oliguric PATY. Creatinine peaked at 3.1 mg/dL on July 24. Tiffanie did not require dialysis. Associated hyperkalemia was medically managed. Creatinine continues to improve. Urine notable for a few hyaline cast. PATY prerenal in the setting of hemodynamic changes including bradycardia and hypotension related to atenolol and amiodarone. Amiodarone has been discontinued and atenolol converted now to carvedilol. Digoxin was added but subsequently held. Tiffanie developed respiratory distress overnight on July 26. She had evidence of congestive failure appropriately responsive to IV furosemide. Volume status currently appears appropriate. Creatinine has returned to baseline. This will be monitored in the setting of hemodynamic changes. CKD has been attributed to hypertensive nephropathy, microvascular disease or chronic tubular interstitial fibrosis. PATY related to CRS. Recommendations PATY: -- Document I/O's -- May remove Dean catheter -- Medications appropriate for renal function -- Furosemide PRN to maintain even to slightly negative fluid balance -- Repeat metabolic profile tomorrow AM Anemia: -- Monitor, no role for SUN at this time -- Will trial a dose of Venofer 100 gm today for iron deficiency and continue as tolerated Spinal stenosis/OA: -- Pain reasonably controlled this morning CKD: -- Outpatient follow up will be arranged at discharge -- Labs notable for some evidence of CKD/MBD including secondary hyperparathyroidism, which can be addressed as an outpatient
[2017-07-27] MEDS ORDERED: IRON SUCROSE INJ 100 MG in SODIUM CHLORIDE 0.9% 100ML 100 ML IV SCH (16:00)
[2017-07-27] MEDS: ATORVASTATIN 20 MG TAB PO SCH (20:21)
[2017-07-27] MEDS: NORTRIPTYLINE HCL 25 MG CAP PO SCH (20:21)
[2017-07-27] MEDS: NORTRIPTYLINE HCL 10 MG CAP PO SCH (20:21)
[2017-07-27] MEDS: RANITIDINE HCL 150 MG TAB PO SCH (20:21)
[2017-07-27] MEDS: GABAPENTIN 100 MG CAP PO SCH (20:22)
[2017-07-27] MEDS: METOPROLOL TARTRATE 1 MG/ML VIAL IV PRN (20:23)
[2017-07-28] VITALS (12 sets, daily range): BP systolic 139–159; BP diastolic 75–85; PULSE 94–140; TEMP 36.3–36.8; O2SAT 93–97
[2017-07-28] MEDS: ACETAMINOPHEN 325 MG TAB PO PRN (00:13)
[2017-07-28] MEDS: LEVALBUTEROL 1.25MG/0.5ML NEB INH SCH ×4 (01:55→19:33)
[2017-07-28] MEDS: IPRATROPIUM BROMIDE NEB SOLN 0.02% 2.5 ML VIAL INH SCH ×4 (01:55→19:33)
[2017-07-28] MEDS: LEVOTHYROXINE 25 MCG TAB PO SCH (04:11)
[2017-07-28] MEDS: METOPROLOL TARTRATE 25 MG TAB PO SCH ×4 (04:11→23:24)
[2017-07-28] MEDS: INSULIN ASPART 100 UNITS/ML 3 ML PEN SC SCH ×4 (07:50→21:00)
[2017-07-28] MEDS: CYANOCOBALAMIN 500 MCG TAB (VIT B-12) PO SCH (07:51)
[2017-07-28] MEDS: PANTOprazole SOD 40 MG TAB PO SCH (07:51)
[2017-07-28] MEDS: APIXABAN 2.5 MG TAB PO SCH ×2 (07:51→20:29)
[2017-07-28] MEDS: DILTIAZEM HCL 120 MG CAPCR PO SCH (07:51)
--- NOTE | 2017-07-28 09:37 | Cardiology Follow-Up ---
Subjective General Date of Service: Jul 28, 2017. Pt evaluation today including: conversation w/ patient, conversation w/ family , chart review, lab review, review of studies History of Present Illness The patient is a 82 year old female Allergies Coded Allergies: Iodine (Verified Allergy, Severe, ANAPHYLAXIS, 07/16/17) Shellfish (Verified Allergy, Severe, ANAPHYLAXIS, 07/16/17) Paroxetine (Verified Allergy, Unknown, GI UPSET, 07/16/17) Social History Smoking Status: Never Smoker Hx Tobacco Use In Past Year?: No Hx Alcohol Use - Type And Amou: Yes (RARELY) Hx Substance Use - Type And Am: No Problem List Medical Problems: (1) Afib Status: Acute (2) Atrial fibrillation with controlled ventricular rate Status: Acute (3) Chronic anticoagulation Status: Acute (4) Fluid overload Status: Acute (5) Shortness of breath Status: Acute Review of Systems Respiratory: + dyspnea on exertion, No cough, No shortness of breath, No dyspnea at rest Cardiac: No chest pain, No edema, No palpitations Additional ROS Details: Walked 115 Feet with only mild leg weakness and no SOB HR still fast Physical Exam Vital Signs Last Vital Signs Documentation Date Time Temp Pulse Resp B/P (MAP) Pulse Ox O2 Delivery O2 Flow Rate FiO2 07/28/17 08:00 Room Air 07/28/17 07:49 36.3 125 18 139/80 (99) 96 07/27/17 04:00 2.0 Physical Exam Constitutional: General Apperance: heathly-appearing Level of Distress: NAD Lungs: Respiratory effort: no dyspnea Auscultation: breath sounds normal, no wheezing, no rales/crackles, no rhonchi Cardiovascular: Heart Auscultation: no murmurs, no rubs, irregular rate rhythm (Tachycardic) Abdomen: Bowel Sounds: normal Inspection & Palpation: soft, non-distended, no tenderness, guarding & rebound Extremities: no edema Assessment and Plan Assessment and Plan 1. Iatrogenic CHF--resolved 2. Atrial fibrillation with a period of bradycardia yesterday night-- now with fast HR's. 3. Normal left ventricular size and function. 4. At least moderate biatrial enlargement. 5. Mild pulmonary hypertension with moderate-to severe tricuspid regurgitation. 6. Significant leg weakness and ambulatory dysfunction. 7. Obstructive sleep apnea, not using CPAP. 8. 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 I would Increase cardizem CD to 240mg daily (added extra 120mg this am) and avoid dig if possible Continue metoprolol 50 Q6 AC back to Apixaban Likely will need a small amount of diuretic M/W/F Weight back to admission weight Leg weakness is not associated with dizziness or palpitations to suggest a cardiac source HOUSEHOLD MANAGER is below baseline Rehab Consider outpt CPAP trial to unload RV and help with HR Laboratory Results Last 24 Hours Test 07/27/17 11:08 07/27/17 16:15 07/27/17 20:15 07/28/17 06:32 Bedside Glucose 158 mg/dl 206 mg/dl 129 mg/dl Activated Partial Thromboplast Time 31.0 SECONDS Partial Thromboplastin Ratio 1.2 Test 07/28/17 08:58
[2017-07-28] MEDS ORDERED: FUROSEMIDE 20 MG TAB PO STA (09:49)
--- NOTE | 2017-07-28 09:49 | Nephrology Progress Note ---
Nephrology Progress Note Date of Service Jul 28, 2017. Chief Complaint PATY/CKD Subjective No acute events overnight. Tiffanie feels well this morning. Heart rate remains slightly elevated but not significantly symptomatic. No dyspnea at rest. Tiffanie denies chest pain or palpitations. She has not experienced lightheadedness, dizziness, syncope or presyncope. Voiding urine without difficulty. Review of Systems A complete review of systems was performed. Pertinent positives are noted above. All other systems are negative. Vital Signs Last 8 Hrs Date Time Temp Pulse Resp B/P (MAP) Pulse Ox O2 Delivery O2 Flow Rate FiO2 07/28/17 08:00 Room Air 07/28/17 07:49 36.3 125 18 139/80 (99) 96 Room Air 07/28/17 06:57 117 16 96 Room Air 07/28/17 04:00 Room Air 07/28/17 04:00 36.4 105 18 153/83 (106) 93 Room Air 07/28/17 01:56 94 16 95 Room Air Last Recorded Weight Weight (Kilograms): 88.900 Physical Exam General Appearance: WD/WN, no apparent distress Head: normocephalic, atraumatic Eyes: normal inspection, sclerae normal ENT: normal ENT inspection, pharynx normal Neck: supple, no JVD Respiratory/Chest: lungs clear, no respiratory distress, no accessory muscle use Cardiovascular: no gallop, + irregularly irregular Abdomen/GI: non tender, soft Extremities/Musculoskelatal: normal inspection, no pedal edema Neurologic/Psych: alert, normal mood/affect Family History FH: lung disease FHx: heart disease Hypertension Social History Smoking Status: Never smoker Marital Status: Occupation: retired Laboratory Results Past 24 Hours Test 07/27/17 11:08 07/27/17 16:15 07/27/17 20:15 07/28/17 06:32 Bedside Glucose 158 mg/dl (70-90) 206 mg/dl (70-90) 129 mg/dl (70-90) Activated Partial Thromboplast Time 31.0 SECONDS (21.0-31.0) Partial Thromboplastin Ratio 1.2 Test 07/28/17 08:58 Allergies Coded Allergies: Iodine (Verified Allergy, Severe, ANAPHYLAXIS, 07/16/17) Shellfish (Verified Allergy, Severe, ANAPHYLAXIS, 07/16/17) Paroxetine (Verified Allergy, Unknown, GI UPSET, 07/16/17) Medications Current Inpatient Medications Medications (Trade) Dose Ordered Sig/Herlinda Route Start Time Stop Time Status Last Admin Dose Admin Atorvastatin Calcium (Lipitor Tab) 20 mg QPM PO 07/22/17 21:00 08/21/17 20:59 07/27/17 20:21 20 MG Nortriptyline HCl (Pamelor Cap) 10 mg HS PO 07/22/17 21:00 08/21/17 20:59 07/27/17 20:21 10 MG Nortriptyline HCl (Pamelor Cap) 25 mg HS PO 07/22/17 21:00 08/21/17 20:59 07/27/17 20:21 25 MG Ranitidine HCl (zANTac TAB) 150 mg HS PO 07/22/17 21:00 08/21/17 20:59 07/27/17 20:21 150 MG Tapentadol (Nucynta Tab) 50 mg BID PRN PO 07/22/17 16:30 08/21/17 16:29 07/27/17 18:42 50 MG Cyanocobalamin (Vitamin B-12 Tab) 1,000 mcg QAM PO 07/23/17 08:00 08/22/17 08:59 07/28/17 07:51 1,000 MCG Pantoprazole Sodium (Protonix Tab) 40 mg QAM PO 07/23/17 08:00 08/22/17 08:59 07/28/17 07:51 40 MG Acetaminophen (Tylenol Tab) 650 mg Q4H PRN PO 07/22/17 16:30 08/21/17 16:29 07/28/17 00:13 650 MG Al Hydrox/Mg Hydrox/Simethicone (Maalox Max Susp) 15 ml Q4H PRN PO 07/22/17 16:30 08/21/17 16:29 Magnesium Hydroxide (Milk Of Magnesia Susp) 30 ml Q6H PRN PO 07/22/17 16:30 08/21/17 16:29 Polyethylene (Miralax Powder Packet) 17 gm DAILY PRN PO 07/22/17 16:30 08/21/17 16:29 Ondansetron HCl (Zofran Inj) 4 mg Q6H PRN IV 07/22/17 16:30 08/21/17 16:29 07/23/17 15:41 4 MG Miscellaneous (Iv Fluids Completed) 1 ea PRN PRN N/A 07/22/17 18:45 07/22/18 18:44 Insulin Aspart (novoLOG ASPART) SLIDING SCALE G... ACHS SC 07/23/17 16:30 08/22/17 16:29 07/28/17 07:50 1 UNITS Glucose (Glucose 40% Gel) 15-30 GRAMS 15 GRAMS... UD PRN PO 07/23/17 15:15 08/22/17 15:14 Glucose (Glucose Chew Tab) 4-8 Tablets 4 Tabl... UD PRN PO 07/23/17 15:15 08/22/17 15:14 Dextrose (Dextrose 50% 50ML Syringe) 25-50ML OF 50% DW IV FOR... UD PRN IV 07/23/17 15:15 08/22/17 15:14 Glucagon (Glucagon Inj) 1 mg UD PRN SQ 07/23/17 15:15 08/22/17 15:14 Levothyroxine Sodium (Synthroid Tab) 25 mcg DAILYBB PO 07/25/17 06:00 08/24/17 05:59 07/28/17 04:11 25 MCG Gabapentin (Neurontin Cap) 200 mg QPM PO 07/25/17 21:00 08/24/17 20:59 07/27/17 20:22 200 MG Ipratropium [place] (Atrovent 0.02% 0.5MG/2.5ML Neb) 0.5 mg Q6R INH 07/26/17 03:00 08/25/17 02:59 07/28/17 06:57 0.5 MG Levalbuterol (Xopenex 1.25MG/ 0.5ML Neb) 1.25 mg Q6R INH 07/26/17 03:00 08/25/17 02:59 07/28/17 06:57 1.25 MG Metoprolol Tartrate (Lopressor Tab) 50 mg Q6H PO 07/26/17 11:00 08/24/17 10:59 07/28/17 04:11 50 MG Metoprolol Tartrate (Lopressor Iv) 5 mg Q4 PRN IV 07/26/17 08:00 08/25/17 07:59 07/27/17 20:23 5 MG Apixaban (Eliquis Tab) 5 mg BID PO 07/27/17 09:30 08/26/17 09:29 07/28/17 07:51 5 MG Diltiazem HCl (Cardizem Cd Cap) 120 mg QAM ONCE PO 07/28/17 09:45 07/28/17 09:46 UNV Diltiazem HCl (Cardizem Cd Cap) 240 mg QAM PO 07/29/17 09:00 08/28/17 08:59 UNV Impression (1) PATY (acute kidney injury) (2) Hyperkalemia (3) Anemia (4) Hypertension (5) Atrial fibrillation with controlled ventricular rate (6) Falls frequently Tiffanie is an 82 year-old female with CKD III, baseline creatinine 1.3- 1.6 who was admitted to the [facility] with generalized weakness, bradycardia and persistent hypotension. On admission, she had non oliguric PATY. Creatinine peaked at 3.1 mg/dL on July 24. Tiffanie did not require dialysis. Associated hyperkalemia was medically managed. Creatinine improved to baseline yesterday. Repeat metabolic profile pending this morning. Urine notable for a few hyaline cast. PATY prerenal in the setting of hemodynamic changes including bradycardia and hypotension related to atenolol and amiodarone. Amiodarone has been discontinued and atenolol converted now to carvedilol. Digoxin was added but subsequently held. Tiffanie developed respiratory distress overnight on July 26. She had evidence of congestive failure appropriately responsive to IV furosemide. Volume status currently appears appropriate. CKD has been attributed to hypertensive nephropathy, microvascular disease or chronic tubular interstitial fibrosis. PATY related to CRS. Recommendations PATY: -- Document I/O's -- Medications appropriate for renal function -- Furosemide PRN to maintain even to slightly negative fluid balance -- Repeat metabolic profile tomorrow AM Anemia: -- Monitor, no role for SUN at this time -- Provide additional 200 mg Venofer today with 20 mg PO furosemide Spinal stenosis/OA: -- Pain reasonably controlled this morning CKD: -- Outpatient follow up will be arranged at discharge -- Labs notable for some evidence of CKD/MBD including secondary hyperparathyroidism, which can be addressed as an outpatient
[2017-07-28] MEDS ORDERED: IRON SUCROSE INJ 200 MG in SODIUM CHLORIDE 0.9% 100ML 100 ML IV SCH (10:00)
[2017-07-28] MEDS ORDERED: DILTIAZEM HCL 120 MG CAPCR PO ONE (10:00)
[2017-07-28 10:09] LABS: CALCIUM 8.5 mg/dl (8.5-10.1); CREATININE 1.45 mg/dl (0.60-1.20); PHOSPHORUS 3.7 mg/dl (2.5-4.9); POTASSIUM 3.5 mmol/L (3.5-5.1)
[2017-07-28] MEDS ORDERED: MAGNESIUM SULFATE 1GM / D5W 100 ML IV STA (12:37)
--- NOTE | 2017-07-28 14:58 | Progress Note ---
Subjective Date of Service: Jul 28, 2017. Subjective Pt evaluation today including: conversation w/ patient, conversation w/ family , physical exam, chart review, lab review, review of studies, conversation w/ media consultant outside sales, review of inpatient medication list Frequent urination after give IV Lasix, otherwise generally feeling okay, however heart rate has been up around 120, seems improved after increase of Cardizem, complaining about lower extremity edema, patient was getting Lasix 1 dose this morning has frequent urination Problem List Medical Problems: (1) Afib Status: Acute (2) Atrial fibrillation with controlled ventricular rate Status: Acute (3) Chronic anticoagulation Status: Acute (4) Fluid overload Status: Acute (5) Shortness of breath Status: Acute Review of Systems Constitutional: No fever, No chills, No sweats, No weight loss, No weakness, No fatigue, No problem reported Eyes: No worsening of vision, No eye pain, No redness, No discharge, No diplopia ENT: No hearing loss, No unusual epistaxis, No nasal symptoms, No sore throat, No tinnitus, No dental problems, No trouble swallowing Respiratory: No cough, No sputum, No wheezing, No shortness of breath, No dyspnea on exertion, No dyspnea at rest, No hemoptysis Cardiac: + edema, No chest pain, No orthopnea, No PND, No claudication, No palpitations Abdomen: No pain, No nausea, No vomiting, No diarrhea, No constipation Musculoskeletal: No joint pain, No muscle pain, No swelling, No calf pain Female : No dysuria, No urinary frequency, No hematuria, No incontinence, No abnormal vaginal bleeding, No vaginal discharge Neurologic: No memory loss, No paralysis, No weakness, No numbness/tingling, No vertigo, No balance problems Psychiatric: No depression symptoms, No anhedonism, No anxiety, No insomnia, No substance abuse Heme: No abnormal bleeding/bruising, No clotting problems, No swollen lymph nodes, No night sweats Endo: No fatigue, No excessive thirst, No excessive urination Skin: No rash, No itch, No new/changing skin lesions, No color change, No bleeding Objective Vital Signs Date Time Temp Pulse Resp B/P (MAP) Pulse Ox O2 Delivery O2 Flow Rate FiO2 07/28/17 14:10 101 16 95 Room Air 07/28/17 12:00 Room Air 07/28/17 11:46 36.7 114 19 151/80 (103) 97 Room Air 07/28/17 09:11 140 07/28/17 08:00 Room Air 07/28/17 07:49 36.3 125 18 139/80 (99) 96 Room Air 07/28/17 06:57 117 16 96 Room Air 07/28/17 04:00 Room Air 07/28/17 04:00 36.4 105 18 153/83 (106) 93 Room Air 07/28/17 01:56 94 16 95 Room Air 07/27/17 23:59 Room Air 07/27/17 22:53 36.8 124 18 136/79 (98) 94 Room Air 07/27/17 20:23 135 143/78 07/27/17 20:00 Room Air 07/27/17 19:17 113 16 94 Room Air 07/27/17 19:08 36.6 120 18 143/78 (99) 93 Room Air 07/27/17 16:00 Room Air 07/27/17 15:30 36.9 126 16 139/83 (101) 92 Room Air Physical Exam General Appearance: WD/WN, no apparent distress, + obese Eyes: normal inspection, PERRL, EOMI, sclerae normal ENT: normal ENT inspection, hearing grossly normal, pharynx normal Neck: supple, no adenopathy, thyroid normal, no JVD, no carotid bruits, trachea midline Respiratory/Chest: chest non-tender, normal breath sounds, no respiratory distress, no accessory muscle use, + decreased breath sounds, + pertinent finding (Occasional wheezing) Cardiovascular: regular rate, rhythm, no gallop, no JVD, no murmur, + pertinent finding (1-2+ edema) Abdomen: normal bowel sounds, non tender, soft, no organomegaly, no pulsatile mass Extremities: normal range of motion, non-tender, normal inspection, no pedal edema, no calf tenderness, normal capillary refill, pelvis stable Neurologic/Psychiatric: body masker II-XII nml as tested, no motor/sensory deficits, alert, normal mood/affect, oriented x 3 Skin: normal color, warm/dry, no rash Lymphatic: no adenopathy Laboratory Results Last 24 Hours Test 07/27/17 16:15 07/27/17 20:15 07/28/17 06:31 07/28/17 06:32 Bedside Glucose 206 mg/dl 129 mg/dl Sodium Level 140 mmol/L Potassium Level 3.5 mmol/L Chloride Level 102 mmol/L Carbon Dioxide Level 32 mmol/L Anion Gap 6.0 mmol/L Blood Urea Nitrogen 22 mg/dl Creatinine 1.45 mg/dl Est Creatinine Clear Calc Drug Dose 30.7 ml/min Estimated GFR () 39.3 Estimated GFR (Non- 33.9 BUN/Creatinine Ratio 15.2 Random Glucose 137 mg/dl Calcium Level 8.5 mg/dl Phosphorus Level 3.7 mg/dl Magnesium Level 1.5 mg/dl Activated Partial Thromboplast Time 31.0 SECONDS Partial Thromboplastin Ratio 1.2 Test 07/28/17 11:08 Bedside Glucose 138 mg/dl Assessment and Plan 82 yo female admitted on july 22, 2017 with weakness, new diagnosis of atrial fibrillation, was having bradycardia and hypotension, still afib with mild RVR at 120 this morning Acute diastolic heart failure with pulmonary edema, secondary to IV fluids and Afib with RVR, use Lasix PRN for now, patient got 1 dose of Lasix today Acute hypoxic respiratory failure secondary to Acute diastolic heart failure with pulmonary edema , and Afib with RVR , improved with Lasix, better Atrial fibrillation with RVR, better, continue Lopressor to 50mg PO q6, Digoxin 250mcg one dose given 2 days ago, 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 daily, Continue Eliquis , no dig because of concern cause renal failure was previously on Amiodarone, Diltiazem and Atenolol at time of admission, lead to bradycardia and hypotension echo - normal EF, no WM abnormalities, atrial enlargement, RV dilated but good function Episodes of bradycardia and hypotension: likely due to increased levels of Atenolol and Diltiazem and Amiodarone with renal failure, resolved, treated with Dopamine, weaned off 07/25, Amiodarone and Atenolol stopped indefinitely PATY with hyperkalemia, decreased urine output, Cr stable etiology of PATY was likely poor perfusion with hypotension and bradycardiam, renal US done as outpatient, normal appearing kidneys, dc'ed miguel ángel DVT Prophylaxis: eliquis now Weakness and falls, may be due to bradycardia at home that was intermittent, better\ History of lumbar stenosis, known to be severe 5 years ago when surgery recommended, currently has no any back pain , due for epidural injection on PT/OT, DC plan to [facility] , possible they want Level 1 continue tele Continued [facility] stay due to: home environment unsafe for pt Discharge planning: rehab hospital
[2017-07-28] MEDS: METOPROLOL TARTRATE 1 MG/ML VIAL IV PRN (17:38)
[2017-07-28] MEDS: GABAPENTIN 100 MG CAP PO SCH (20:28)
[2017-07-28] MEDS: MAGNESIUM OXIDE 400 MG TAB PO SCH (20:28)
[2017-07-28] MEDS: NORTRIPTYLINE HCL 10 MG CAP PO SCH (20:28)
[2017-07-28] MEDS: NORTRIPTYLINE HCL 25 MG CAP PO SCH (20:28)
[2017-07-28] MEDS: TAPENTADOL HCL 50 MG TAB PO PRN (20:28)
[2017-07-28] MEDS: ATORVASTATIN 20 MG TAB PO SCH (20:29)
[2017-07-28] MEDS: RANITIDINE HCL 150 MG TAB PO SCH (20:29)
[2017-07-29] VITALS (13 sets, daily range): BP systolic 131–152; BP diastolic 79–82; PULSE 58–117; TEMP 36.4–36.9; O2SAT 93–96
[2017-07-29] MEDS: LEVALBUTEROL 1.25MG/0.5ML NEB INH SCH ×4 (01:49→19:25)
[2017-07-29] MEDS: IPRATROPIUM BROMIDE NEB SOLN 0.02% 2.5 ML VIAL INH SCH ×4 (01:49→19:24)
[2017-07-29] MEDS: LEVOTHYROXINE 25 MCG TAB PO SCH (05:02)
[2017-07-29] MEDS: METOPROLOL TARTRATE 25 MG TAB PO SCH ×4 (05:02→23:33)
[2017-07-29 06:55] LABS: HEMOGLOBIN 9.8 g/dL (12.0-16.0); MEAN CELL VOLUME 97.5 fL (80-100); MEAN CORPUSCULAR HEMOGLOBIN 30.8 pg (25-34); MEAN CORPUSCULAR HGB CONC 31.6 g/dl (32-36); MEAN PLATELET VOLUME 10.6 fL (7.4-10.4); NUCLEATED RED BLOOD CELL ABS 0.02 K/uL (0-0); PLATELET COUNT 184 K/uL (130-400); RED CELL DISTRIBUTION WIDTH SD 53.5 fL (36.4-46.3); WHITE BLOOD COUNT 4.46 K/uL (4.8-10.8)
[2017-07-29 07:04] LABS: PTT PATIENT 29.2 SECONDS (21.0-31.0)
[2017-07-29 07:30] LABS: CALCIUM 8.8 mg/dl (8.5-10.1); CREATININE 1.25 mg/dl (0.60-1.20); PHOSPHORUS 3.7 mg/dl (2.5-4.9); POTASSIUM 3.1 mmol/L (3.5-5.1)
[2017-07-29] MEDS ORDERED: MAGNESIUM SULFATE 1GM / D5W 100 ML IV ONE (08:00)
[2017-07-29] MEDS ORDERED: POTASSIUM CHLORIDE 10 MEQ TABCR PO ONE (08:00)
[2017-07-29] MEDS: CYANOCOBALAMIN 500 MCG TAB (VIT B-12) PO SCH (08:56)
[2017-07-29] MEDS: PANTOprazole SOD 40 MG TAB PO SCH (08:56)
[2017-07-29] MEDS: APIXABAN 2.5 MG TAB PO SCH ×2 (08:56→20:41)
[2017-07-29] MEDS: MAGNESIUM OXIDE 400 MG TAB PO SCH ×2 (08:56→20:41)
[2017-07-29] MEDS: INSULIN ASPART 100 UNITS/ML 3 ML PEN SC SCH ×4 (08:57→20:42)
[2017-07-29] MEDS: POTASSIUM CHLR 10 MEQ / WTR 100 ML IV SCH ×2 (08:58→10:59)
[2017-07-29] MEDS ORDERED: DILTIAZEM HCL 240 MG CAPCR PO SCH (09:00)
[2017-07-29] MEDS: TAPENTADOL HCL 50 MG TAB PO PRN ×2 (09:14→20:41)
--- NOTE | 2017-07-29 09:32 | Nephrology Progress Note ---
Nephrology Progress Note Date of Service Jul 29, 2017. Chief Complaint PATY/CKD Subjective No acute events overnight. Tiffanie is resting comfortably in chair this morning. She reports some persistent right shoulder pain and tenderness. Pain is rated 5/ 10. She attributes the pain to injury sustained during a fall at home prior to admission. She was ambulating with PT yesterday. Overall, Tiffanie feels that she continues to improve. She denies chest pain or palpitations. She denies lightheadedness or dizziness. Review of Systems A complete review of systems was performed. Pertinent positives are noted above. All other systems are negative. Vital Signs Last 8 Hrs Date Time Temp Pulse Resp B/P (MAP) Pulse Ox O2 Delivery O2 Flow Rate FiO2 07/29/17 07:55 36.4 102 20 148/81 (103) 93 Room Air 07/29/17 07:00 80 18 96 Room Air 07/29/17 04:00 93 Room Air 07/29/17 03:16 36.9 104 20 152/81 (104) 93 Room Air 07/29/17 01:49 79 18 96 Room Air Last Recorded Weight Weight (Kilograms): 87.300 Physical Exam General Appearance: no apparent distress, + pertinent finding (elderly, frail) Head: normocephalic, atraumatic Eyes: normal inspection, sclerae normal ENT: normal ENT inspection, pharynx normal Neck: supple, no JVD Respiratory/Chest: lungs clear, no respiratory distress, no accessory muscle use, + rales (improved) Cardiovascular: no gallop, + irregularly irregular Abdomen/GI: non tender, soft Extremities/Musculoskelatal: normal inspection, + pedal edema Neurologic/Psych: alert, normal mood/affect Family History FH: lung disease FHx: heart disease Hypertension Social History Smoking Status: Never smoker Marital Status: Occupation: retired Laboratory Results Past 24 Hours 07/29/17 06:23 07/29/17 06:23 Test 07/28/17 11:08 07/28/17 16:05 07/28/17 20:54 07/29/17 06:23 Bedside Glucose 138 mg/dl (70-90) 164 mg/dl (70-90) 145 mg/dl (70-90) Red Blood Count 3.18 M/uL (4.2-5.4) Mean Corpuscular Volume 97.5 fL (80-100) Mean Corpuscular Hemoglobin 30.8 pg (25-34) Mean Corpuscular Hemoglobin Concent 31.6 g/dl (32-36) RDW Standard Deviation 53.5 fL (36.4-46.3) RDW Coefficient of Variation 15.0 % (11.5-14.5) Mean Platelet Volume 10.6 fL (7.4-10.4) Nucleated RBC Absolute Count (auto) 0.02 K/uL (0-0) Nucleated Red Blood Cells % 0.5 % Activated Partial Thromboplast Time 29.2 SECONDS (21.0-31.0) Partial Thromboplastin Ratio 1.1 Anion Gap 6.0 mmol/L (3-11) Est Creatinine Clear Calc Drug Dose 35.3 ml/min Estimated GFR () 47.0 Estimated GFR (Non- 40.6 BUN/Creatinine Ratio 14.1 (10-20) Calcium Level 8.8 mg/dl (8.5-10.1) Phosphorus Level 3.7 mg/dl (2.5-4.9) Magnesium Level 1.7 mg/dl (1.8-2.4) Test 07/29/17 06:39 Bedside Glucose 140 mg/dl (70-90) Allergies Coded Allergies: Iodine (Verified Allergy, Severe, ANAPHYLAXIS, 07/16/17) Shellfish (Verified Allergy, Severe, ANAPHYLAXIS, 07/16/17) Paroxetine (Verified Allergy, Unknown, GI UPSET, 07/16/17) Medications Current Inpatient Medications Medications (Trade) Dose Ordered Sig/Herlinda Route Start Time Stop Time Status Last Admin Dose Admin Atorvastatin Calcium (Lipitor Tab) 20 mg QPM PO 07/22/17 21:00 08/21/17 20:59 07/28/17 20:29 20 MG Nortriptyline HCl (Pamelor Cap) 10 mg HS PO 07/22/17 21:00 08/21/17 20:59 07/28/17 20:28 10 MG Nortriptyline HCl (Pamelor Cap) 25 mg HS PO 07/22/17 21:00 08/21/17 20:59 07/28/17 20:28 25 MG Ranitidine HCl (zANTac TAB) 150 mg HS PO 07/22/17 21:00 08/21/17 20:59 07/28/17 20:29 150 MG Tapentadol (Nucynta Tab) 50 mg BID PRN PO 07/22/17 16:30 08/21/17 16:29 07/29/17 09:14 50 MG Cyanocobalamin (Vitamin B-12 Tab) 1,000 mcg QAM PO 07/23/17 08:00 08/22/17 08:59 07/29/17 08:56 1,000 MCG Pantoprazole Sodium (Protonix Tab) 40 mg QAM PO 07/23/17 08:00 08/22/17 08:59 07/29/17 08:56 40 MG Acetaminophen (Tylenol Tab) 650 mg Q4H PRN PO 07/22/17 16:30 08/21/17 16:29 07/28/17 00:13 650 MG Al Hydrox/Mg Hydrox/Simethicone (Maalox Max Susp) 15 ml Q4H PRN PO 07/22/17 16:30 08/21/17 16:29 Magnesium Hydroxide (Milk Of Magnesia Susp) 30 ml Q6H PRN PO 07/22/17 16:30 08/21/17 16:29 Polyethylene (Miralax Powder Packet) 17 gm DAILY PRN PO 07/22/17 16:30 08/21/17 16:29 Ondansetron HCl (Zofran Inj) 4 mg Q6H PRN IV 07/22/17 16:30 08/21/17 16:29 07/23/17 15:41 4 MG Miscellaneous (Iv Fluids Completed) 1 ea PRN PRN N/A 07/22/17 18:45 07/22/18 18:44 Insulin Aspart (novoLOG ASPART) SLIDING SCALE G... ACHS SC 07/23/17 16:30 08/22/17 16:29 07/29/17 08:57 4 UNITS Glucose (Glucose 40% Gel) 15-30 GRAMS 15 GRAMS... UD PRN PO 07/23/17 15:15 08/22/17 15:14 Glucose (Glucose Chew Tab) 4-8 Tablets 4 Tabl... UD PRN PO 07/23/17 15:15 08/22/17 15:14 Dextrose (Dextrose 50% 50ML Syringe) 25-50ML OF 50% DW IV FOR... UD PRN IV 07/23/17 15:15 08/22/17 15:14 Glucagon (Glucagon Inj) 1 mg UD PRN SQ 07/23/17 15:15 08/22/17 15:14 Levothyroxine Sodium (Synthroid Tab) 25 mcg DAILYBB PO 07/25/17 06:00 08/24/17 05:59 07/29/17 05:02 25 MCG Gabapentin (Neurontin Cap) 200 mg QPM PO 07/25/17 21:00 08/24/17 20:59 07/28/17 20:28 200 MG Ipratropium [place] (Atrovent 0.02% 0.5MG/2.5ML Neb) 0.5 mg Q6R INH 07/26/17 03:00 08/25/17 02:59 07/29/17 07:00 0.5 MG Levalbuterol (Xopenex 1.25MG/ 0.5ML Neb) 1.25 mg Q6R INH 07/26/17 03:00 08/25/17 02:59 07/29/17 07:00 1.25 MG Metoprolol Tartrate (Lopressor Tab) 50 mg Q6H PO 07/26/17 11:00 08/24/17 10:59 07/29/17 05:02 50 MG Metoprolol Tartrate (Lopressor Iv) 5 mg Q4 PRN IV 07/26/17 08:00 08/25/17 07:59 07/28/17 17:38 5 MG Apixaban (Eliquis Tab) 5 mg BID PO 07/27/17 09:30 08/26/17 09:29 07/29/17 08:56 5 MG Diltiazem HCl (Cardizem Cd Cap) 240 mg QAM PO 07/29/17 09:00 08/28/17 08:59 07/29/17 08:56 240 MG Magnesium Oxide (Mag-Ox Tab) 400 mg BID PO 07/28/17 21:00 08/27/17 20:59 07/29/17 08:56 400 MG Potassium Chloride 100 ml @ 100 mls/hr Q1H IV 07/29/17 08:00 07/29/17 09:59 07/29/17 08:58 100 MLS/HR Impression (1) PATY (acute kidney injury) (2) Hyperkalemia (3) Anemia (4) Hypertension (5) Atrial fibrillation with controlled ventricular rate (6) Falls frequently Tiffanie is an 82 year-old female with CKD III, baseline creatinine 1.3- 1.6 who was admitted to the [facility] with generalized weakness, bradycardia and persistent hypotension. On admission, she had non oliguric PATY. Creatinine peaked at 3.1 mg/dL on July 24. Tiffanie did not require dialysis. Associated hyperkalemia was medically managed. Creatinine improved to baseline. Urine notable for a few hyaline cast. PATY prerenal in the setting of hemodynamic changes including bradycardia and hypotension related to atenolol and amiodarone. Amiodarone has been discontinued and atenolol converted now to carvedilol. Diltiazem to assist with rate control.. Tiffanie developed respiratory distress overnight on July 26. She had evidence of congestive failure appropriately responsive to IV furosemide. Volume status currently appears appropriate. She has been maintained on furosemide every other day. CKD has been attributed to hypertensive nephropathy, microvascular disease or chronic tubular interstitial fibrosis. PATY related to CRS. Recommendations PATY: -- Document I/O's -- Medications appropriate for renal function -- Furosemide PRN to maintain even to slightly negative fluid balance -- Repeat metabolic profile tomorrow AM Hypokalemia: -- Following treatment for hyperK on admission and in setting of loop diuretic use and resolving PATY -- Remove dietary K restriction -- IV/Po replacement ordered -- Mg+ replacement also provided Anemia: -- Monitor, no role for SUN at this time -- Provide additional 200 mg Venofer today (total 300 mg to date) Spinal stenosis/OA: -- Pain reasonably controlled this morning R shoulder pain: -- Consistent with strain of supraspinatus tendon or subacromial bursitis: ice, rest, PT -- X-ray due to history of trauma CKD: -- Outpatient follow up will be arranged at discharge -- Labs notable for some evidence of CKD/MBD including secondary hyperparathyroidism, which can be addressed as an outpatient
--- NOTE | 2017-07-29 10:11 | Cardiology Follow-Up ---
Subjective General Date of Service: Jul 29, 2017. Pt evaluation today including: conversation w/ patient, chart review, lab review History of Present Illness The patient is a 82 year old female Allergies Coded Allergies: Iodine (Verified Allergy, Severe, ANAPHYLAXIS, 07/16/17) Shellfish (Verified Allergy, Severe, ANAPHYLAXIS, 07/16/17) Paroxetine (Verified Allergy, Unknown, GI UPSET, 07/16/17) Social History Smoking Status: Never Smoker Hx Tobacco Use In Past Year?: No Hx Alcohol Use - Type And Amou: Yes (RARELY) Hx Substance Use - Type And Am: No Problem List Medical Problems: (1) Afib Status: Acute (2) Atrial fibrillation with controlled ventricular rate Status: Acute (3) Chronic anticoagulation Status: Acute (4) Fluid overload Status: Acute (5) Shortness of breath Status: Acute Review of Systems Respiratory: No cough, No shortness of breath, No dyspnea on exertion, No dyspnea at rest Cardiac: + edema (trace to mild), No chest pain, No palpitations Physical Exam Vital Signs Last Vital Signs Documentation Date Time Temp Pulse Resp B/P (MAP) Pulse Ox O2 Delivery O2 Flow Rate FiO2 07/29/17 07:55 36.4 102 20 148/81 (103) 93 Room Air 07/27/17 04:00 2.0 Physical Exam Constitutional: General Apperance: heathly-appearing Level of Distress: NAD Lungs: Respiratory effort: no dyspnea Auscultation: no wheezing, no rales/crackles, no rhonchi, pertinent finding (Coarse BS in bases) Cardiovascular: Heart Auscultation: no murmurs, no rubs, irregular rate rhythm (Tachycardic) Abdomen: Bowel Sounds: normal Inspection & Palpation: soft, non-distended, no tenderness, guarding & rebound Extremities: edema (Trace) Assessment and Plan Assessment and Plan 1. Iatrogenic CHF--resolved 2. Atrial fibrillation with a period of bradycardia yesterday night-- now with fast HR's. 3. Normal left ventricular size and function. 4. At least moderate biatrial enlargement. 5. Mild pulmonary hypertension with moderate-to severe tricuspid regurgitation. 6. Significant leg weakness and ambulatory dysfunction. 7. Obstructive sleep apnea, not using CPAP. 8. PATY on CKF with baseline MEDICAL CODER 1.5 Rates still fast with Afib-- I would Increase cardizem CD to 360mg daily (added extra 120mg this am) and avoid dig if possible Continue metoprolol 50 Q6 AC back to Apixaban Added lasix 20mg M// Leg weakness is not associated with dizziness or palpitations to suggest a cardiac source MEDICAL CODER is below baseline Rehab Consider outpt CPAP trial to unload RV and help with HR Laboratory Results Last 24 Hours Test 07/28/17 11:08 07/28/17 16:05 07/28/17 20:54 07/29/17 06:23 Bedside Glucose 138 mg/dl 164 mg/dl 145 mg/dl White Blood Count 4.46 K/uL Red Blood Count 3.18 M/uL Hemoglobin 9.8 g/dL Hematocrit 31.0 % Mean Corpuscular Volume 97.5 fL Mean Corpuscular Hemoglobin 30.8 pg Mean Corpuscular Hemoglobin Concent 31.6 g/dl RDW Standard Deviation 53.5 fL RDW Coefficient of Variation 15.0 % Platelet Count 184 K/uL Mean Platelet Volume 10.6 fL Nucleated RBC Absolute Count (auto) 0.02 K/uL Nucleated Red Blood Cells % 0.5 % Activated Partial Thromboplast Time 29.2 SECONDS Partial Thromboplastin Ratio 1.1 Sodium Level 139 mmol/L Potassium Level 3.1 mmol/L Chloride Level 101 mmol/L Carbon Dioxide Level 32 mmol/L Anion Gap 6.0 mmol/L Blood Urea Nitrogen 18 mg/dl Creatinine 1.25 mg/dl Est Creatinine Clear Calc Drug Dose 35.3 ml/min Estimated GFR () 47.0 Estimated GFR (Non- 40.6 BUN/Creatinine Ratio 14.1 Random Glucose 136 mg/dl Calcium Level 8.8 mg/dl Phosphorus Level 3.7 mg/dl Magnesium Level 1.7 mg/dl Test 07/29/17 06:39 Bedside Glucose 140 mg/dl
[2017-07-29] MEDS ORDERED: DILTIAZEM HCL 120 MG CAPCR PO ONE (11:00)
--- NOTE | 2017-07-29 12:22 | DIAGNOSTIC IMAGING REPORT ---
R SHOULDER MIN 2 VIEWS ROUTINE CLINICAL HISTORY: fall, right shoulder injury and pain trauma. Pain. COMPARISON: None. DISCUSSION: Mild degenerative changes of acromioclavicular and glenohumeral joints. No acute bony abnormality. Study specifically negative for fracture or dislocation. There is no evidence for soft tissue swelling. IMPRESSION: No acute process. Mild degenerative change. The above report was generated using voice recognition software. It may contain grammatical, syntax or spelling errors. Electronically signed by: Perry Weiss M.D. 07/29/2017 12:21 PM Dictated Date/Time: 07/29/2017 12:20 PM
[2017-07-29] MEDS: FUROSEMIDE 20 MG TAB PO SCH (12:35)
--- NOTE | 2017-07-29 18:32 | Progress Note ---
Subjective Date of Service: Jul 29, 2017. Subjective Pt evaluation today including: conversation w/ patient, conversation w/ family , physical exam, chart review, lab review, review of studies, conversation w/ program evaluation consultant, review of inpatient medication list sitting up in chair, doing ok, a lot urine after lasix right shoulder pain prior to this admission from fall, has pain when range of motion Problem List Medical Problems: (1) Afib Status: Acute (2) Atrial fibrillation with controlled ventricular rate Status: Acute (3) Chronic anticoagulation Status: Acute (4) Fluid overload Status: Acute (5) Shortness of breath Status: Acute Review of Systems Constitutional: No fever, No chills, No sweats, No weight loss, No weakness, No fatigue, No problem reported Eyes: No worsening of vision, No eye pain, No redness, No discharge, No diplopia ENT: No hearing loss, No unusual epistaxis, No nasal symptoms, No sore throat, No tinnitus, No dental problems, No trouble swallowing Respiratory: No cough, No sputum, No wheezing, No shortness of breath, No dyspnea on exertion, No dyspnea at rest, No hemoptysis Cardiac: No chest pain, No orthopnea, No PND, No edema, No claudication, No palpitations Abdomen: No pain, No nausea, No vomiting, No diarrhea, No constipation Musculoskeletal: No joint pain, No muscle pain, No swelling, No calf pain Female : No dysuria, No urinary frequency, No hematuria, No incontinence, No abnormal vaginal bleeding, No vaginal discharge Neurologic: No memory loss, No paralysis, No weakness, No numbness/tingling, No vertigo, No balance problems Psychiatric: No depression symptoms, No anhedonism, No anxiety, No insomnia, No substance abuse Heme: No abnormal bleeding/bruising, No clotting problems, No swollen lymph nodes, No night sweats Endo: No fatigue, No excessive thirst, No excessive urination Skin: No rash, No itch, No new/changing skin lesions, No color change, No bleeding Objective Vital Signs Date Time Temp Pulse Resp B/P (MAP) Pulse Ox O2 Delivery O2 Flow Rate FiO2 07/29/17 16:15 95 Room Air 07/29/17 15:32 36.8 96 20 131/81 (98) 95 Room Air 07/29/17 14:13 77 18 96 Room Air 07/29/17 12:00 Room Air 07/29/17 11:33 36.7 104 22 144/81 (102) 94 Room Air 07/29/17 08:00 Room Air 07/29/17 07:55 36.4 102 20 148/81 (103) 93 Room Air 07/29/17 07:00 80 18 96 Room Air 07/29/17 04:00 93 Room Air 07/29/17 03:16 36.9 104 20 152/81 (104) 93 Room Air 07/29/17 01:49 79 18 96 Room Air 07/29/17 00:00 94 Room Air 07/28/17 23:10 36.6 121 19 150/75 (100) 94 Room Air 07/28/17 20:00 94 Room Air 07/28/17 19:34 105 18 94 Room Air 07/28/17 19:28 36.8 96 19 152/85 (107) 94 Room Air Physical Exam General Appearance: WD/WN, no apparent distress Eyes: normal inspection, PERRL, EOMI, sclerae normal ENT: normal ENT inspection, hearing grossly normal, pharynx normal Neck: supple, no adenopathy, thyroid normal, no JVD, no carotid bruits, trachea midline Respiratory/Chest: chest non-tender, normal breath sounds, no respiratory distress, no accessory muscle use, + decreased breath sounds Cardiovascular: regular rate, rhythm, no gallop, no JVD, no murmur, + pertinent finding (trace edema) Abdomen: normal bowel sounds, non tender, soft, no organomegaly, no pulsatile mass Extremities: normal inspection, no pedal edema, no calf tenderness, normal capillary refill, pelvis stable, + pertinent finding (right shoulder pain prior to this admission from fall, has pain when range of motion, lateral up point of shoudler is tender, no signs of loca injury) Neurologic/Psychiatric: consulting sme II-XII nml as tested, no motor/sensory deficits, alert, normal mood/affect, oriented x 3 Skin: normal color, warm/dry, no rash Lymphatic: no adenopathy Laboratory Results Last 24 Hours Test 07/28/17 20:54 07/29/17 06:23 07/29/17 06:39 07/29/17 10:37 Bedside Glucose 145 mg/dl 140 mg/dl 207 mg/dl White Blood Count 4.46 K/uL Red Blood Count 3.18 M/uL Hemoglobin 9.8 g/dL Hematocrit 31.0 % Mean Corpuscular Volume 97.5 fL Mean Corpuscular Hemoglobin 30.8 pg Mean Corpuscular Hemoglobin Concent 31.6 g/dl RDW Standard Deviation 53.5 fL RDW Coefficient of Variation 15.0 % Platelet Count 184 K/uL Mean Platelet Volume 10.6 fL Nucleated RBC Absolute Count (auto) 0.02 K/uL Nucleated Red Blood Cells % 0.5 % Activated Partial Thromboplast Time 29.2 SECONDS Partial Thromboplastin Ratio 1.1 Sodium Level 139 mmol/L Potassium Level 3.1 mmol/L Chloride Level 101 mmol/L Carbon Dioxide Level 32 mmol/L Anion Gap 6.0 mmol/L Blood Urea Nitrogen 18 mg/dl Creatinine 1.25 mg/dl Est Creatinine Clear Calc Drug Dose 35.3 ml/min Estimated GFR () 47.0 Estimated GFR (Non- 40.6 BUN/Creatinine Ratio 14.1 Random Glucose 136 mg/dl Calcium Level 8.8 mg/dl Phosphorus Level 3.7 mg/dl Magnesium Level 1.7 mg/dl Test 07/29/17 16:11 Bedside Glucose 159 mg/dl Assessment and Plan 82 yo female admitted on july 22, 2017 with weakness, new diagnosis of atrial fibrillation, was having bradycardia and hypotension, still afib with mild RVR at 120 this morning Acute diastolic heart failure with pulmonary edema, secondary to IV fluids and Afib with RVR, Acute hypoxic respiratory failure secondary to Acute diastolic heart failure with pulmonary edema , and Afib with RVR , improved/stable with Lasix Atrial fibrillation with RVR, better, continue Lopressor to 50mg PO q6, Digoxin 250mcg one dose given 2 days ago, lead driver increase Cardizem CD to 360mg daily (added extra 120mg this am) and avoid dig i Continue Eliquis , no dig because of concern cause renal failure was previously on Amiodarone, Diltiazem and Atenolol at time of admission, lead to bradycardia and hypotension echo - normal EF, no WM abnormalities, atrial enlargement, RV dilated but good function Episodes of bradycardia and hypotension: likely due to increased levels of Atenolol and Diltiazem and Amiodarone with renal failure, resolved, treated with Dopamine, weaned off 07/25, Amiodarone and Atenolol stopped indefinitely PATY with hyperkalemia, decreased urine output, Cr stable etiology of PATY was likely poor perfusion with hypotension and bradycardiam, renal US done as outpatient, normal appearing kidneys, dc'ed del rosario right shoulder pain prior to this admission from fall, has pain when range of motion Weakness and falls, may be due to bradycardia at home that was intermittent, reported right shoulder pain from the fell prior to admission, right shoulder Xray done: : No acute process. Mild degenerative change., will have local lidoderm patch, PT, OT, keep range range of motions History of lumbar stenosis, known to be severe 5 years ago when surgery recommended, currently has no any back pain , due for epidural injection on PT/OT, DC plan to [facility] , DVT Prophylaxis: jose ramonqudarren now Level 1 continue tele Continued [facility] stay due to: home environment unsafe for pt Discharge planning: rehab hospital
[2017-07-29] MEDS: NORTRIPTYLINE HCL 10 MG CAP PO SCH (20:41)
[2017-07-29] MEDS: GABAPENTIN 100 MG CAP PO SCH (20:41)
[2017-07-29] MEDS: NORTRIPTYLINE HCL 25 MG CAP PO SCH (20:41)
[2017-07-29] MEDS: LIDODERM (LIDOCAINE) PATCH 5% TD SCH (20:42)
[2017-07-29] MEDS: ATORVASTATIN 20 MG TAB PO SCH (20:42)
[2017-07-29] MEDS: RANITIDINE HCL 150 MG TAB PO SCH (20:42)
[2017-07-30] VITALS (13 sets, daily range): BP systolic 118–158; BP diastolic 68–102; PULSE 73–115; TEMP 36.4–36.8; O2SAT 93–97
[2017-07-30] MEDS: IPRATROPIUM BROMIDE NEB SOLN 0.02% 2.5 ML VIAL INH SCH ×2 (03:00→07:23)
[2017-07-30] MEDS: LEVALBUTEROL 1.25MG/0.5ML NEB INH SCH ×2 (03:00→07:23)
[2017-07-30] MEDS: LEVOTHYROXINE 25 MCG TAB PO SCH (05:41)
[2017-07-30] MEDS: METOPROLOL TARTRATE 25 MG TAB PO SCH ×2 (05:42→12:07)
[2017-07-30 06:49] LABS: HEMATOCRIT 32.2 % (37-47); MEAN CELL VOLUME 99.1 fL (80-100); MEAN CORPUSCULAR HEMOGLOBIN 30.8 pg (25-34); MEAN CORPUSCULAR HGB CONC 31.1 g/dl (32-36); MEAN PLATELET VOLUME 9.8 fL (7.4-10.4); PLATELET COUNT 201 K/uL (130-400); RED CELL DISTRIBUTION WIDTH CV 15.1 % (11.5-14.5); RED CELL DISTRIBUTION WIDTH SD 54.7 fL (36.4-46.3)
[2017-07-30 07:07] LABS: PTT PATIENT 28.3 SECONDS (21.0-31.0)
[2017-07-30] MEDS: MAGNESIUM OXIDE 400 MG TAB PO SCH ×2 (08:36→20:49)
[2017-07-30] MEDS: PANTOprazole SOD 40 MG TAB PO SCH (08:36)
[2017-07-30] MEDS: APIXABAN 2.5 MG TAB PO SCH ×2 (08:36→20:48)
[2017-07-30] MEDS: CYANOCOBALAMIN 500 MCG TAB (VIT B-12) PO SCH (08:36)
[2017-07-30] MEDS: DILTIAZEM HCL 180 MG CAPCR PO SCH (08:36)
[2017-07-30] MEDS: INSULIN ASPART 100 UNITS/ML 3 ML PEN SC SCH ×4 (08:37→20:52)
[2017-07-30] MEDS ORDERED: LEVALBUTEROL 1.25MG/0.5ML NEB INH PRN ×2 (09:00→10:30)
[2017-07-30] MEDS ORDERED: IPRATROPIUM BROMIDE NEB SOLN 0.02% 2.5 ML VIAL INH PRN ×2 (09:00→10:45)
--- NOTE | 2017-07-30 09:31 | Cardiology Follow-Up ---
Subjective General Date of Service: Jul 30, 2017. Pt evaluation today including: conversation w/ patient, chart review, lab review, review of studies History of Present Illness The patient is a 82 year old female Allergies Coded Allergies: Iodine (Verified Allergy, Severe, ANAPHYLAXIS, 07/16/17) Shellfish (Verified Allergy, Severe, ANAPHYLAXIS, 07/16/17) Paroxetine (Verified Allergy, Unknown, GI UPSET, 07/16/17) Social History Smoking Status: Never Smoker Hx Tobacco Use In Past Year?: No Hx Alcohol Use - Type And Amou: Yes (RARELY) Hx Substance Use - Type And Am: No Problem List Medical Problems: (1) Afib Status: Acute (2) Atrial fibrillation with controlled ventricular rate Status: Acute (3) Chronic anticoagulation Status: Acute (4) Fluid overload Status: Acute (5) Shortness of breath Status: Acute Review of Systems Respiratory: + dyspnea on exertion, No cough, No shortness of breath, No dyspnea at rest Cardiac: No chest pain, No edema, No palpitations Additional ROS Details: Walked the entire floor yesterday with walker. No leg weakness with ambulation Physical Exam Vital Signs Last Vital Signs Documentation Date Time Temp Pulse Resp B/P (MAP) Pulse Ox O2 Delivery O2 Flow Rate FiO2 07/30/17 07:48 36.4 87 19 119/68 (85) 95 Room Air 07/27/17 04:00 2.0 Physical Exam Constitutional: General Apperance: heathly-appearing Level of Distress: NAD Lungs: Respiratory effort: no dyspnea Auscultation: no wheezing, no rales/crackles, no rhonchi Cardiovascular: Heart Auscultation: no murmurs, no rubs, irregular rate rhythm Abdomen: Bowel Sounds: normal Inspection & Palpation: soft, non-distended, no tenderness, guarding & rebound Extremities: no edema Assessment and Plan Assessment and Plan 1. Iatrogenic CHF--resolved 2. Atrial fibrillation with a period of bradycardia yesterday night-- now with fast HR's. 3. Normal left ventricular size and function. 4. At least moderate biatrial enlargement. 5. Mild pulmonary hypertension with moderate-to severe tricuspid regurgitation. 6. Significant leg weakness and ambulatory dysfunction. 7. Obstructive sleep apnea, not using CPAP. 8. PATY on CKF with baseline REPAIR ORDER CLERK 1.5 Cardizem CD 360mg daily --rates much improved Continue metoprolol 50 Q6 and upon d/c change to 100mg BID Apixaban 5mg BID Added lasix 20mg M// Leg weakness is not associated with dizziness or palpitations to suggest a cardiac source ok to Rehab from my standpoint Laboratory Results Last 24 Hours Test 07/29/17 10:37 07/29/17 16:11 07/29/17 20:25 07/30/17 06:02 Bedside Glucose 207 mg/dl 159 mg/dl 153 mg/dl White Blood Count 4.70 K/uL Red Blood Count 3.25 M/uL Hemoglobin 10.0 g/dL Hematocrit 32.2 % Mean Corpuscular Volume 99.1 fL Mean Corpuscular Hemoglobin 30.8 pg Mean Corpuscular Hemoglobin Concent 31.1 g/dl RDW Standard Deviation 54.7 fL RDW Coefficient of Variation 15.1 % Platelet Count 201 K/uL Mean Platelet Volume 9.8 fL Activated Partial Thromboplast Time 28.3 SECONDS Partial Thromboplastin Ratio 1.1 Test 07/30/17 06:43 Bedside Glucose 146 mg/dl
[2017-07-30 10:38] LABS: ALBUMIN 3.2 gm/dl (3.4-5.0); CALCIUM 8.9 mg/dl (8.5-10.1); CREATININE 1.21 mg/dl (0.60-1.20); PHOSPHORUS 3.8 mg/dl (2.5-4.9); POTASSIUM 3.4 mmol/L (3.5-5.1)
[2017-07-30] MEDS ORDERED: POTASSIUM CHLORIDE 20 MEQ TABCR PO STA (11:09)
--- NOTE | 2017-07-30 11:09 | Nephrology Progress Note ---
Nephrology Progress Note Date of Service Jul 30, 2017. Chief Complaint PATY/CKD Subjective No acute events overnight. No complaints this morning. Tiffanie denies chest pain or palpitations. She denies shortness of breath. Dyspnea has significantly improved. Additional furosemide provided today. Review of Systems A complete review of systems was performed. Pertinent positives are noted above. All other systems are negative. Vital Signs Last 8 Hrs Date Time Temp Pulse Resp B/P (MAP) Pulse Ox O2 Delivery O2 Flow Rate FiO2 07/30/17 08:00 Room Air 07/30/17 07:48 36.4 87 19 119/68 (85) 95 Room Air 07/30/17 07:24 73 18 93 Room Air 07/30/17 05:41 88 118/84 (95) 07/30/17 04:00 94 Room Air 07/30/17 03:50 36.7 92 20 121/72 (88) 94 Room Air Last Recorded Weight Weight (Kilograms): 88.100 Physical Exam General Appearance: WD/WN, no apparent distress Head: normocephalic, atraumatic Eyes: normal inspection, sclerae normal ENT: normal ENT inspection, pharynx normal Neck: supple, no JVD Respiratory/Chest: lungs clear, no respiratory distress, no accessory muscle use Cardiovascular: no gallop, + irregularly irregular Abdomen/GI: non tender, soft Extremities/Musculoskelatal: normal inspection, no pedal edema Neurologic/Psych: alert, normal mood/affect Family History FH: lung disease FHx: heart disease Hypertension Social History Smoking Status: Never smoker Marital Status: Occupation: retired Laboratory Results Past 24 Hours 07/30/17 06:02 07/30/17 06:00 Test 07/29/17 16:11 07/29/17 20:25 07/30/17 06:00 07/30/17 06:02 Bedside Glucose 159 mg/dl (70-90) 153 mg/dl (70-90) Anion Gap 4.0 mmol/L (3-11) Est Creatinine Clear Calc Drug Dose 36.6 ml/min Estimated GFR () 48.9 Estimated GFR (Non- 42.2 BUN/Creatinine Ratio 12.7 (10-20) Calcium Level 8.9 mg/dl (8.5-10.1) Phosphorus Level 3.8 mg/dl (2.5-4.9) Albumin 3.2 gm/dl (3.4-5.0) Red Blood Count 3.25 M/uL (4.2-5.4) Mean Corpuscular Volume 99.1 fL (80-100) Mean Corpuscular Hemoglobin 30.8 pg (25-34) Mean Corpuscular Hemoglobin Concent 31.1 g/dl (32-36) RDW Standard Deviation 54.7 fL (36.4-46.3) RDW Coefficient of Variation 15.1 % (11.5-14.5) Mean Platelet Volume 9.8 fL (7.4-10.4) Activated Partial Thromboplast Time 28.3 SECONDS (21.0-31.0) Partial Thromboplastin Ratio 1.1 Test 07/30/17 06:43 Bedside Glucose 146 mg/dl (70-90) Allergies Coded Allergies: Iodine (Verified Allergy, Severe, ANAPHYLAXIS, 07/16/17) Shellfish (Verified Allergy, Severe, ANAPHYLAXIS, 07/16/17) Paroxetine (Verified Allergy, Unknown, GI UPSET, 07/16/17) Medications Current Inpatient Medications Medications (Trade) Dose Ordered Sig/Herlinda Route Start Time Stop Time Status Last Admin Dose Admin Atorvastatin Calcium (Lipitor Tab) 20 mg QPM PO 07/22/17 21:00 08/21/17 20:59 07/29/17 20:42 20 MG Nortriptyline HCl (Pamelor Cap) 10 mg HS PO 07/22/17 21:00 08/21/17 20:59 07/29/17 20:41 10 MG Nortriptyline HCl (Pamelor Cap) 25 mg HS PO 07/22/17 21:00 08/21/17 20:59 07/29/17 20:41 25 MG Ranitidine HCl (zANTac TAB) 150 mg HS PO 07/22/17 21:00 08/21/17 20:59 07/29/17 20:42 150 MG Tapentadol (Nucynta Tab) 50 mg BID PRN PO 07/22/17 16:30 08/21/17 16:29 07/29/17 20:41 50 MG Cyanocobalamin (Vitamin B-12 Tab) 1,000 mcg QAM PO 07/23/17 08:00 08/22/17 08:59 07/30/17 08:36 1,000 MCG Pantoprazole Sodium (Protonix Tab) 40 mg QAM PO 07/23/17 08:00 08/22/17 08:59 07/30/17 08:36 40 MG Acetaminophen (Tylenol Tab) 650 mg Q4H PRN PO 07/22/17 16:30 08/21/17 16:29 07/28/17 00:13 650 MG Al Hydrox/Mg Hydrox/Simethicone (Maalox Max Susp) 15 ml Q4H PRN PO 07/22/17 16:30 08/21/17 16:29 Magnesium Hydroxide (Milk Of Magnesia Susp) 30 ml Q6H PRN PO 07/22/17 16:30 08/21/17 16:29 Polyethylene (Miralax Powder Packet) 17 gm DAILY PRN PO 07/22/17 16:30 08/21/17 16:29 Ondansetron HCl (Zofran Inj) 4 mg Q6H PRN IV 07/22/17 16:30 08/21/17 16:29 07/23/17 15:41 4 MG Miscellaneous (Iv Fluids Completed) 1 ea PRN PRN N/A 07/22/17 18:45 07/22/18 18:44 Insulin Aspart (novoLOG ASPART) SLIDING SCALE G... ACHS SC 07/23/17 16:30 08/22/17 16:29 07/30/17 08:37 4 UNITS Glucose (Glucose 40% Gel) 15-30 GRAMS 15 GRAMS... UD PRN PO 07/23/17 15:15 08/22/17 15:14 Glucose (Glucose Chew Tab) 4-8 Tablets 4 Tabl... UD PRN PO 07/23/17 15:15 08/22/17 15:14 Dextrose (Dextrose 50% 50ML Syringe) 25-50ML OF 50% DW IV FOR... UD PRN IV 07/23/17 15:15 08/22/17 15:14 Glucagon (Glucagon Inj) 1 mg UD PRN SQ 07/23/17 15:15 08/22/17 15:14 Levothyroxine Sodium (Synthroid Tab) 25 mcg DAILYBB PO 07/25/17 06:00 08/24/17 05:59 07/30/17 05:41 25 MCG Gabapentin (Neurontin Cap) 200 mg QPM PO 07/25/17 21:00 08/24/17 20:59 07/29/17 20:41 200 MG Metoprolol Tartrate (Lopressor Tab) 50 mg Q6H PO 07/26/17 11:00 08/24/17 10:59 07/30/17 05:42 50 MG Metoprolol Tartrate (Lopressor Iv) 5 mg Q4 PRN IV 07/26/17 08:00 08/25/17 07:59 07/28/17 17:38 5 MG Apixaban (Eliquis Tab) 5 mg BID PO 07/27/17 09:30 08/26/17 09:29 07/30/17 08:36 5 MG Magnesium Oxide (Mag-Ox Tab) 400 mg BID PO 07/28/17 21:00 08/27/17 20:59 07/30/17 08:36 400 MG Diltiazem HCl (Cardizem Cd Cap) 360 mg QAM PO 07/30/17 09:00 08/29/17 08:59 07/30/17 08:36 360 MG Furosemide (Lasix Tab) 20 mg MoWeFr@0900 PO 07/29/17 11:00 08/28/17 10:59 07/29/17 12:35 20 MG Lidocaine (Lidoderm Patch 5%) 1 patch DAILY@1930 TD 07/29/17 19:30 08/28/17 19:29 07/29/17 20:42 1 PATCH Miscellaneous (Remove Lidoderm Patch) 1 ea DAILY@0730 N/A 07/30/17 07:30 08/29/17 07:29 07/30/17 07:30 1 EA Levalbuterol (Xopenex 1.25MG/ 0.5ML Neb) 1.25 mg Q6 PRN INH 07/30/17 10:30 08/29/17 10:29 Ipratropium [place] (Atrovent 0.02% 0.5MG/2.5ML Neb) 0.5 mg Q6 PRN INH 07/30/17 10:45 08/29/17 10:44 Impression (1) PATY (acute kidney injury) (2) Hyperkalemia (3) Anemia (4) Hypertension (5) Atrial fibrillation with controlled ventricular rate (6) Falls frequently Tiffanie is an 82 year-old female with CKD III, baseline creatinine 1.3- 1.6 who was admitted to the [facility] with generalized weakness, bradycardia and persistent hypotension. On admission, she had non oliguric PAYT. Creatinine peaked at 3.1 mg/dL on July 24. Tiffanie did not require dialysis. Associated hyperkalemia was medically managed. Creatinine improved to baseline. Urine notable for a few hyaline cast. PATY prerenal in the setting of hemodynamic changes including bradycardia and hypotension related to atenolol and amiodarone. Amiodarone has been discontinued and atenolol converted now to carvedilol. Diltiazem to assist with rate control.. Tiffanie developed respiratory distress overnight on July 26. She had evidence of congestive failure appropriately responsive to IV furosemide. Volume status currently appears appropriate. She has been maintained on furosemide every other day. CKD has been attributed to hypertensive nephropathy, microvascular disease or chronic tubular interstitial fibrosis. PATY related to CRS. Recommendations PATY: -- Improved -- Medications appropriate for renal function -- Furosemide PRN to maintain even to slightly negative fluid balance -- Repeat metabolic profile this AM pending. Will require monitoring within 1 week of discharge Hypokalemia: -- Repeat level pending this morning -- Once improved, outpatient monitoring would be acceptable Anemia: -- Venofer total of 500 mg provided -- Will provide an additional 200 mg today Spinal stenosis/OA: -- Pain reasonably controlled this morning R shoulder pain: -- Consistent with strain of supraspinatus tendon or subacromial bursitis: ice, rest, PT -- X-ray due to history of trauma CKD: -- Outpatient follow up will be arranged at discharge -- Labs notable for some evidence of CKD/MBD including secondary hyperparathyroidism, which can be addressed as an outpatient
[2017-07-30] MEDS ORDERED: IRON SUCROSE INJ 200 MG in SODIUM CHLORIDE 0.9% 100ML 100 ML IV SCH (11:30)
[2017-07-30] MEDS ORDERED: FURO-85 PO (12:37)
[2017-07-30] MEDS ORDERED: TPRSR50 PO (12:37)
[2017-07-30] MEDS ORDERED: MGNO400 PO (12:37)
[2017-07-30] MEDS ORDERED: LDDP5 TD (12:37)
[2017-07-30] MEDS ORDERED: SYN25 PO (12:37)
[2017-07-30] MEDS ORDERED: CRDCD180 PO (12:37)
--- NOTE | 2017-07-30 12:38 | Discharge Instructions ---
Discharge Instructions Date of Service Jul 30, 2017. Admission Reason for Admission: Falls Frequently, Gait Disorder Discharge Discharge Diagnosis / Problem: atrial fibrillation Discharge Goals Goal(s): Decrease discomfort, Improve function, Increase independence, Improve disease control, Improve nutritional status, Learn about illness, Diagnostic testing, Therapeutic intervention, Screening, Prevent Disease Progression, Specific goals Activity Recommendations Activity Level: Up Ad Nickie . Additional Information Patient informed of condition: Yes Advance Directives: No DNR: No Level of Care: Acute Rehab Communicable Disease: No Prognosis: Other (guarded) Dean Catheter: No Instructions / Follow-Up Instructions / Follow-Up you have Atrial fibrillation, you are on Cardizem CD 360mg daily, and metoprolol 100mg BID you are on stroke prevention with Apixaban 5mg BID you are on lasix 20mg // you need to have labs BMP, mag checked in 2 days, report result to pcp you need to continue right shoulder pain rehab too - you need to follow up with your primary care physician in 1 week, - take medication as instructed, never overdose or any misuse, or take with alcohol, because misuse of medicine may cause organ damage or , call your primary care physician if have questions of medicaitons. - call your primary care physician OR go to local emergency room if has any fever/chill, chest pain, shortness of breathing, nausea/vomiting/abdominal pain , facial droop/slurry speech/local weakness, or if has any questions. - fall precaution - diet as instructed - you need to follow up with your subspecialist, such as Dr. Venegas in 2-3 weeks - you should understand that it is important to follow up the above instruction , and "not following the above instruction" may cause delayed or missed care of your medical conditions which may cause permanent organ damage and even . Current Hospital Diet Patient's current hospital diet: AHA Diet (Heart Healthy), Diabetes Type 2 Diet Discharge Diet Recommended Diet: Diabetes Type 2 Diet Pending Studies Studies pending at discharge: no Physician Orders On Transfer POLST Discussion: without POLST completion Medical Emergencies . Who to Call and When: Medical Emergencies: If at any time you feel your situation is an emergency, please call 911 immediately. . Non-Emergent Contact Non-Emergency issues call your: Primary Care Provider, Pesticide Chemist, Pediatric Care Coordinator . . "Provider Documentation" section prepared by Andre Rose. . Core Measure Problem Core Measures: None
[2017-07-30] MEDS ORDERED: POTASSIUM CHLORIDE 10 MEQ TABCR PO ONE (13:00)
--- NOTE | 2017-07-30 15:04 | Progress Note ---
Subjective Date of Service: Jul 30, 2017. Subjective Pt evaluation today including: conversation w/ patient, conversation w/ family , physical exam, chart review, lab review, review of studies, conversation w/ diet consultant, review of inpatient medication list Voiding: no voiding problems Doing much better, able to do the range of motion in the right shoulder, normal pain on Lidoderm patch, however has been better controlled, denies palpitation or chest pain Problem List Medical Problems: (1) Afib Status: Acute (2) Atrial fibrillation with controlled ventricular rate Status: Acute (3) Chronic anticoagulation Status: Acute (4) Fluid overload Status: Acute (5) Shortness of breath Status: Acute Review of Systems Constitutional: No fever, No chills, No sweats, No weight loss, No weakness, No fatigue, No problem reported Eyes: No worsening of vision, No eye pain, No redness, No discharge, No diplopia ENT: No hearing loss, No unusual epistaxis, No nasal symptoms, No sore throat, No tinnitus, No dental problems, No trouble swallowing Respiratory: No cough, No sputum, No wheezing, No shortness of breath, No dyspnea on exertion, No dyspnea at rest, No hemoptysis Cardiac: No chest pain, No orthopnea, No PND, No edema, No claudication, No palpitations Abdomen: No pain, No nausea, No vomiting, No diarrhea, No constipation Musculoskeletal: No joint pain, No muscle pain, No swelling, No calf pain Female : No dysuria, No urinary frequency, No hematuria, No incontinence, No abnormal vaginal bleeding, No vaginal discharge Neurologic: No memory loss, No paralysis, No weakness, No numbness/tingling, No vertigo, No balance problems Psychiatric: No depression symptoms, No anhedonism, No anxiety, No insomnia, No substance abuse Heme: No abnormal bleeding/bruising, No clotting problems, No swollen lymph nodes, No night sweats Endo: No fatigue, No excessive thirst, No excessive urination Skin: No rash, No itch, No new/changing skin lesions, No color change, No bleeding Objective Vital Signs Date Time Temp Pulse Resp B/P (MAP) Pulse Ox O2 Delivery O2 Flow Rate FiO2 07/30/17 12:00 Room Air 07/30/17 11:10 36.8 106 19 123/85 (98) 95 Room Air 07/30/17 08:00 Room Air 07/30/17 07:48 36.4 87 19 119/68 (85) 95 Room Air 07/30/17 07:24 73 18 93 Room Air 07/30/17 05:41 88 118/84 (95) 07/30/17 04:00 94 Room Air 07/30/17 03:50 36.7 92 20 121/72 (88) 94 Room Air 07/30/17 00:00 93 Room Air 07/29/17 23:20 36.8 117 20 142/82 (102) 93 Room Air 07/29/17 20:45 Room Air 07/29/17 19:35 36.7 58 20 140/79 (99) 95 Room Air 07/29/17 19:25 104 18 95 Room Air 07/29/17 16:15 95 Room Air 07/29/17 15:32 36.8 96 20 131/81 (98) 95 Room Air Physical Exam General Appearance: WD/WN, no apparent distress Eyes: normal inspection, PERRL, EOMI, sclerae normal ENT: normal ENT inspection, hearing grossly normal, pharynx normal Neck: supple, no adenopathy, thyroid normal, no JVD, no carotid bruits, trachea midline Respiratory/Chest: chest non-tender, lungs clear, normal breath sounds, no respiratory distress, no accessory muscle use Cardiovascular: regular rate, rhythm, no edema, no gallop, no JVD, no murmur Abdomen: normal bowel sounds, non tender, soft, no organomegaly, no pulsatile mass Extremities: normal range of motion, non-tender, normal inspection, no pedal edema, no calf tenderness, normal capillary refill, pelvis stable Neurologic/Psychiatric: sole ruffer II-XII nml as tested, no motor/sensory deficits, alert, normal mood/affect, oriented x 3 Skin: normal color, warm/dry, no rash Lymphatic: no adenopathy Laboratory Results Last 24 Hours Test 07/29/17 16:11 07/29/17 20:25 07/30/17 06:00 07/30/17 06:02 Bedside Glucose 159 mg/dl 153 mg/dl Sodium Level 138 mmol/L Potassium Level 3.4 mmol/L Chloride Level 101 mmol/L Carbon Dioxide Level 33 mmol/L Anion Gap 4.0 mmol/L Blood Urea Nitrogen 15 mg/dl Creatinine 1.21 mg/dl Est Creatinine Clear Calc Drug Dose 36.6 ml/min Estimated GFR () 48.9 Estimated GFR (Non- 42.2 BUN/Creatinine Ratio 12.7 Random Glucose 136 mg/dl Calcium Level 8.9 mg/dl Phosphorus Level 3.8 mg/dl Albumin 3.2 gm/dl White Blood Count 4.70 K/uL Red Blood Count 3.25 M/uL Hemoglobin 10.0 g/dL Hematocrit 32.2 % Mean Corpuscular Volume 99.1 fL Mean Corpuscular Hemoglobin 30.8 pg Mean Corpuscular Hemoglobin Concent 31.1 g/dl RDW Standard Deviation 54.7 fL RDW Coefficient of Variation 15.1 % Platelet Count 201 K/uL Mean Platelet Volume 9.8 fL Activated Partial Thromboplast Time 28.3 SECONDS Partial Thromboplastin Ratio 1.1 Test 07/30/17 06:43 07/30/17 11:02 Bedside Glucose 146 mg/dl 153 mg/dl Assessment and Plan 82 yo female admitted on july 22, 2017 with weakness, new diagnosis of atrial fibrillation, was having bradycardia and hypotension, still A. fib, however has been better controlled Acute diastolic heart failure with pulmonary edema, secondary to IV fluids and Afib with RVR, Acute hypoxic respiratory failure secondary to Acute diastolic heart failure with pulmonary edema , and Afib with RVR , i Atrial fibrillation with RVR, better, continue Lopressor to 50mg PO q6, Digoxin 250mcg one dose given 2 days ago, valve maker increase Cardizem CD to 360mg daily (added extra 120mg this am) and avoid dig Increase metoprolol to 100mg BID Continue all on lasix 20mg // Continue Eliquis , no dig because of concern cause renal failure was previously on Amiodarone, Diltiazem and Atenolol at time of admission, lead to bradycardia and hypotension echo - normal EF, no WM abnormalities, atrial enlargement, RV dilated but good function Episodes of bradycardia and hypotension: likely due to increased levels of Atenolol and Diltiazem and Amiodarone with renal failure, resolved, treated with Dopamine, weaned off 07/25, Amiodarone and Atenolol stopped indefinitely PATY with hyperkalemia, decreased urine output, Cr stable and slowly improving etiology of PATY was likely poor perfusion with hypotension and bradycardiam, renal US done as outpatient, normal appearing kidneys, dc'ed del rosario right shoulder pain prior to this admission from fall, has pain when range of motion , pain is totally resolved after Lidoderm patch right shoulder Xray was done: : No acute process. Mild degenerative change., Pain help a lot with Lidoderm patch, continue it, and encourage range of motion History of lumbar stenosis, known to be severe 5 years ago when surgery recommended, currently has no any back pain , due for epidural injection on PT/OT, DC plan to [facility] [place] [facility] , DVT Prophylaxis: eliquis now Level 1 medicla ready to rehab, or ECF Continued [facility] stay due to: home environment unsafe for pt Discharge planning: rehab hospital
[2017-07-30] MEDS: ACETAMINOPHEN 325 MG TAB PO PRN (15:25)
[2017-07-30] MEDS: LIDODERM (LIDOCAINE) PATCH 5% TD SCH (19:42)
[2017-07-30] MEDS: ATORVASTATIN 20 MG TAB PO SCH (20:48)
[2017-07-30] MEDS: METOPROLOL TARTRATE 100 MG TAB PO SCH (20:49)
[2017-07-30] MEDS: GABAPENTIN 100 MG CAP PO SCH (20:50)
[2017-07-30] MEDS: NORTRIPTYLINE HCL 25 MG CAP PO SCH (20:51)
[2017-07-30] MEDS: RANITIDINE HCL 150 MG TAB PO SCH (20:51)
[2017-07-30] MEDS: NORTRIPTYLINE HCL 10 MG CAP PO SCH (20:51)
[2017-07-31] VITALS: O2SAT 97
[2017-07-31 04:00] VITALS: BP 137/66; PULSE 99; TEMP 36.7; O2SAT 92
[2017-07-31] MEDS: LEVOTHYROXINE 25 MCG TAB PO SCH (06:15)
[2017-07-31 06:41] LABS: HEMATOCRIT 32.4 % (37-47); HEMOGLOBIN 10.2 g/dL (12.0-16.0); MEAN CELL VOLUME 98.8 fL (80-100); MEAN CORPUSCULAR HEMOGLOBIN 31.1 pg (25-34); MEAN CORPUSCULAR HGB CONC 31.5 g/dl (32-36); MEAN PLATELET VOLUME 9.9 fL (7.4-10.4); PLATELET COUNT 210 K/uL (130-400); RED CELL DISTRIBUTION WIDTH SD 53.8 fL (36.4-46.3)
[2017-07-31 06:57] LABS: PTT PATIENT 28.9 SECONDS (21.0-31.0)
[2017-07-31 07:12] LABS: ALBUMIN 3.3 gm/dl (3.4-5.0); CALCIUM 8.8 mg/dl (8.5-10.1); CREATININE 1.36 mg/dl (0.60-1.20); POTASSIUM 3.8 mmol/L (3.5-5.1)
[2017-07-31 08:00] VITALS: BP 140/77; PULSE 100; TEMP 36.3; O2SAT 94
[2017-07-31] MEDS: PANTOprazole SOD 40 MG TAB PO SCH (08:52)
[2017-07-31] MEDS: APIXABAN 2.5 MG TAB PO SCH ×2 (08:52→20:39)
[2017-07-31] MEDS: MAGNESIUM OXIDE 400 MG TAB PO SCH ×2 (08:52→20:38)
[2017-07-31] MEDS: FUROSEMIDE 20 MG TAB PO SCH (08:52)
[2017-07-31] MEDS: METOPROLOL TARTRATE 100 MG TAB PO SCH ×2 (08:52→20:37)
[2017-07-31] MEDS: DILTIAZEM HCL 180 MG CAPCR PO SCH (08:53)
[2017-07-31] MEDS: CYANOCOBALAMIN 500 MCG TAB (VIT B-12) PO SCH (08:53)
--- NOTE | 2017-07-31 08:57 | Nephrology Progress Note ---
Nephrology Progress Note Date of Service Jul 31, 2017. Chief Complaint PATY/CKD Subjective No acute events overnight. No complaints this morning. Tiffanie was resting comfortably in her bedside chair. She feels well. She reports a persistent cough. She denies dyspnea. She denies chest pain or palpitations. No fevers or chills. Possible DC to [facility] today. Review of Systems A complete review of systems was performed. Pertinent positives are noted above. All other systems are negative. Vital Signs Last 8 Hrs Date Time Temp Pulse Resp B/P (MAP) Pulse Ox O2 Delivery O2 Flow Rate FiO2 07/31/17 08:00 36.3 100 20 140/77 (98) 94 Room Air 07/31/17 04:00 36.7 99 20 137/66 (89) 92 Room Air 07/31/17 04:00 Room Air Last Recorded Weight Weight (Kilograms): 84.700 Physical Exam General Appearance: WD/WN, no apparent distress Head: normocephalic, atraumatic Eyes: normal inspection, sclerae normal ENT: normal ENT inspection, pharynx normal Neck: supple, no JVD Respiratory/Chest: lungs clear, normal breath sounds Cardiovascular: no gallop, + irregularly irregular Abdomen/GI: non tender, soft Extremities/Musculoskelatal: normal inspection, no pedal edema Neurologic/Psych: alert, normal mood/affect Family History FH: lung disease FHx: heart disease Hypertension Social History Smoking Status: Never smoker Marital Status: Occupation: retired Laboratory Results Past 24 Hours 07/31/17 06:06 07/31/17 06:06 Test 07/30/17 11:02 07/30/17 16:15 07/30/17 20:23 07/31/17 06:06 Bedside Glucose 153 mg/dl (70-90) 146 mg/dl (70-90) 155 mg/dl (70-90) Red Blood Count 3.28 M/uL (4.2-5.4) Mean Corpuscular Volume 98.8 fL (80-100) Mean Corpuscular Hemoglobin 31.1 pg (25-34) Mean Corpuscular Hemoglobin Concent 31.5 g/dl (32-36) RDW Standard Deviation 53.8 fL (36.4-46.3) RDW Coefficient of Variation 15.0 % (11.5-14.5) Mean Platelet Volume 9.9 fL (7.4-10.4) Activated Partial Thromboplast Time 28.9 SECONDS (21.0-31.0) Partial Thromboplastin Ratio 1.1 Anion Gap 5.0 mmol/L (3-11) Est Creatinine Clear Calc Drug Dose 31.9 ml/min Estimated GFR () 42.5 Estimated GFR (Non- 36.7 BUN/Creatinine Ratio 10.7 (10-20) Calcium Level 8.8 mg/dl (8.5-10.1) Phosphorus Level 3.0 mg/dl (2.5-4.9) Magnesium Level 1.7 mg/dl (1.8-2.4) Albumin 3.3 gm/dl (3.4-5.0) Test 07/31/17 06:47 Bedside Glucose 148 mg/dl (70-90) Allergies Coded Allergies: Iodine (Verified Allergy, Severe, ANAPHYLAXIS, 07/16/17) Shellfish (Verified Allergy, Severe, ANAPHYLAXIS, 07/16/17) Paroxetine (Verified Allergy, Unknown, GI UPSET, 07/16/17) Medications Current Inpatient Medications Medications (Trade) Dose Ordered Sig/Herlinda Route Start Time Stop Time Status Last Admin Dose Admin Atorvastatin Calcium (Lipitor Tab) 20 mg QPM PO 07/22/17 21:00 08/21/17 20:59 07/30/17 20:48 20 MG Nortriptyline HCl (Pamelor Cap) 10 mg HS PO 07/22/17 21:00 08/21/17 20:59 07/30/17 20:51 10 MG Nortriptyline HCl (Pamelor Cap) 25 mg HS PO 07/22/17 21:00 08/21/17 20:59 07/30/17 20:51 25 MG Ranitidine HCl (zANTac TAB) 150 mg HS PO 07/22/17 21:00 08/21/17 20:59 07/30/17 20:51 150 MG Tapentadol (Nucynta Tab) 50 mg BID PRN PO 07/22/17 16:30 08/21/17 16:29 07/29/17 20:41 50 MG Cyanocobalamin (Vitamin B-12 Tab) 1,000 mcg QAM PO 07/23/17 08:00 08/22/17 08:59 07/30/17 08:36 1,000 MCG Pantoprazole Sodium (Protonix Tab) 40 mg QAM PO 07/23/17 08:00 08/22/17 08:59 07/30/17 08:36 40 MG Acetaminophen (Tylenol Tab) 650 mg Q4H PRN PO 07/22/17 16:30 08/21/17 16:29 07/30/17 15:25 650 MG Al Hydrox/Mg Hydrox/Simethicone (Maalox Max Susp) 15 ml Q4H PRN PO 07/22/17 16:30 08/21/17 16:29 Magnesium Hydroxide (Milk Of Magnesia Susp) 30 ml Q6H PRN PO 07/22/17 16:30 08/21/17 16:29 Polyethylene (Miralax Powder Packet) 17 gm DAILY PRN PO 07/22/17 16:30 08/21/17 16:29 Ondansetron HCl (Zofran Inj) 4 mg Q6H PRN IV 07/22/17 16:30 08/21/17 16:29 07/23/17 15:41 4 MG Miscellaneous (Iv Fluids Completed) 1 ea PRN PRN N/A 07/22/17 18:45 07/22/18 18:44 Insulin Aspart (novoLOG ASPART) SLIDING SCALE G... ACHS SC 07/23/17 16:30 08/22/17 16:29 07/30/17 17:35 5 UNITS Glucose (Glucose 40% Gel) 15-30 GRAMS 15 GRAMS... UD PRN PO 07/23/17 15:15 08/22/17 15:14 Glucose (Glucose Chew Tab) 4-8 Tablets 4 Tabl... UD PRN PO 07/23/17 15:15 08/22/17 15:14 Dextrose (Dextrose 50% 50ML Syringe) 25-50ML OF 50% DW IV FOR... UD PRN IV 07/23/17 15:15 08/22/17 15:14 Glucagon (Glucagon Inj) 1 mg UD PRN SQ 07/23/17 15:15 08/22/17 15:14 Levothyroxine Sodium (Synthroid Tab) 25 mcg DAILYBB PO 07/25/17 06:00 08/24/17 05:59 07/31/17 06:15 25 MCG Gabapentin (Neurontin Cap) 200 mg QPM PO 07/25/17 21:00 08/24/17 20:59 07/30/17 20:50 200 MG Metoprolol Tartrate (Lopressor Iv) 5 mg Q4 PRN IV 07/26/17 08:00 08/25/17 07:59 07/28/17 17:38 5 MG Apixaban (Eliquis Tab) 5 mg BID PO 07/27/17 09:30 08/26/17 09:29 07/30/17 20:48 5 MG Magnesium Oxide (Mag-Ox Tab) 400 mg BID PO 07/28/17 21:00 08/27/17 20:59 07/30/17 20:49 400 MG Diltiazem HCl (Cardizem Cd Cap) 360 mg QAM PO 07/30/17 09:00 08/29/17 08:59 07/30/17 08:36 360 MG Furosemide (Lasix Tab) 20 mg MoWeFr@0900 PO 07/29/17 11:00 08/28/17 10:59 07/29/17 12:35 20 MG Lidocaine (Lidoderm Patch 5%) 1 patch DAILY@1930 TD 07/29/17 19:30 08/28/17 19:29 07/30/17 19:42 1 PATCH Miscellaneous (Remove Lidoderm Patch) 1 ea DAILY@0730 N/A 07/30/17 07:30 08/29/17 07:29 07/30/17 07:30 1 EA Levalbuterol (Xopenex 1.25MG/ 0.5ML Neb) 1.25 mg Q6 PRN INH 07/30/17 10:30 08/29/17 10:29 07/30/17 22:24 1.25 MG Ipratropium [place] (Atrovent 0.02% 0.5MG/2.5ML Neb) 0.5 mg Q6 PRN INH 07/30/17 10:45 08/29/17 10:44 07/30/17 22:24 0.5 MG Metoprolol Tartrate (Lopressor Tab) 100 mg Q12 PO 07/30/17 21:00 08/24/17 10:59 07/30/17 20:49 100 MG Impression (1) PATY (acute kidney injury) (2) Hyperkalemia (3) Anemia (4) Hypertension (5) Atrial fibrillation with controlled ventricular rate (6) Falls frequently Tiffanie is an 82 year-old female with CKD III, baseline creatinine 1.3- 1.6 who was admitted to the [facility] with generalized weakness, bradycardia and persistent hypotension. On admission, she had non oliguric PATY. Creatinine peaked at 3.1 mg/dL on July 24. Tiffanie did not require dialysis. Associated hyperkalemia was medically managed. Creatinine improved to baseline. Urine notable for a few hyaline cast. PATY prerenal in the setting of hemodynamic changes including bradycardia and hypotension related to atenolol and amiodarone. Amiodarone has been discontinued and atenolol converted now to carvedilol. Diltiazem to assist with rate control.. Tiffanie developed respiratory distress overnight on July 26. She had evidence of congestive failure appropriately responsive to IV furosemide. Volume status currently appears appropriate. She has been maintained on furosemide every other day. CKD has been attributed to hypertensive nephropathy, microvascular disease or chronic tubular interstitial fibrosis. PATY related to CRS. Recommendations PATY: -- Creatinine stable -- Medications appropriate for renal function -- Repeat metabolic profile within one week of discharge, labs can be faxed to the nephrology clinica at [phone] -- Follow up with Dr. Galaviz to be arranged in the nephrology clinic within 1 week of discharge Anemia: -- Final dose of 200 mg IV iron provided today to total 1 gm CKD: -- Labs notable for evidence of CKD/MBD including secondary hyperparathyroidism , which can be addressed as an outpatient during follow up in the nephrology clinic Nephrology will sign off of inpatient follow up now. Please call with questions or concerns.
[2017-07-31] MEDS: INSULIN ASPART 100 UNITS/ML 3 ML PEN SC SCH ×4 (08:59→20:40)
[2017-07-31 12:00] VITALS: BP 143/85; PULSE 68; TEMP 36.8; O2SAT 94
[2017-07-31 15:51] VITALS: BP 132/78; PULSE 86; TEMP 36.5; O2SAT 95
--- NOTE | 2017-07-31 16:18 | Progress Note ---
Subjective Date of Service: Jul 31, 2017. Subjective Pt evaluation today including: conversation w/ patient, conversation w/ family , physical exam, chart review, lab review, review of studies, conversation w/ literacy consultant, review of inpatient medication list Impaired, pleasant, conversational, family bedside, report has been up walk with therapist, right shoulder pain is better Problem List Medical Problems: (1) Afib Status: Acute (2) Atrial fibrillation with controlled ventricular rate Status: Acute (3) Chronic anticoagulation Status: Acute (4) Fluid overload Status: Acute (5) Shortness of breath Status: Acute Review of Systems Constitutional: + weakness, + fatigue, No fever, No chills, No sweats, No weight loss, No problem reported Eyes: No worsening of vision, No eye pain, No redness, No discharge, No diplopia ENT: No hearing loss, No unusual epistaxis, No nasal symptoms, No sore throat, No tinnitus, No dental problems, No trouble swallowing Respiratory: No cough, No sputum, No wheezing, No shortness of breath, No dyspnea on exertion, No dyspnea at rest, No hemoptysis Cardiac: No chest pain, No orthopnea, No PND, No edema, No claudication, No palpitations Abdomen: No pain, No nausea, No vomiting, No diarrhea, No constipation Musculoskeletal: + joint pain, No muscle pain, No swelling, No calf pain Female : No dysuria, No urinary frequency, No hematuria, No incontinence, No abnormal vaginal bleeding, No vaginal discharge Neurologic: No memory loss, No paralysis, No weakness, No numbness/tingling, No vertigo, No balance problems Psychiatric: No depression symptoms, No anhedonism, No anxiety, No insomnia, No substance abuse Heme: No abnormal bleeding/bruising, No clotting problems, No swollen lymph nodes, No night sweats Endo: No fatigue, No excessive thirst, No excessive urination Skin: No rash, No itch, No new/changing skin lesions, No color change, No bleeding Objective Vital Signs Date Time Temp Pulse Resp B/P (MAP) Pulse Ox O2 Delivery O2 Flow Rate FiO2 07/31/17 15:51 36.5 86 16 132/78 (96) 95 Room Air 07/31/17 12:00 Room Air 07/31/17 12:00 36.8 68 22 143/85 (104) 94 Room Air 07/31/17 08:00 36.3 100 20 140/77 (98) 94 Room Air 07/31/17 08:00 Room Air 07/31/17 04:00 36.7 99 20 137/66 (89) 92 Room Air 07/31/17 04:00 Room Air 07/31/17 00:00 97 Room Air 07/30/17 23:15 36.8 100 20 158/102 (120) 97 Room Air 07/30/17 22:24 78 18 95 Room Air 07/30/17 20:00 96 Room Air 07/30/17 19:15 36.6 115 20 142/74 (96) 96 Room Air Physical Exam General Appearance: WD/WN, no apparent distress, + obese Eyes: normal inspection, PERRL, EOMI, sclerae normal ENT: normal ENT inspection, hearing grossly normal, pharynx normal Neck: supple, no adenopathy, thyroid normal, no JVD, no carotid bruits, trachea midline Respiratory/Chest: chest non-tender, normal breath sounds, no respiratory distress, no accessory muscle use, + decreased breath sounds Cardiovascular: no edema, no gallop, no JVD, no murmur, + irregularly irregular Abdomen: normal bowel sounds, non tender, soft, no organomegaly, no pulsatile mass Extremities: normal range of motion, non-tender, normal inspection, no pedal edema, no calf tenderness, normal capillary refill, pelvis stable, + swelling ( Trace edema) 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, no motor/sensory deficits, alert, normal mood/affect, oriented x 3 Skin: normal color, warm/dry, no rash Lymphatic: no adenopathy Laboratory Results Last 24 Hours Test 07/30/17 16:15 07/30/17 20:23 07/31/17 06:06 07/31/17 06:47 Bedside Glucose 146 mg/dl 155 mg/dl 148 mg/dl White Blood Count 5.40 K/uL Red Blood Count 3.28 M/uL Hemoglobin 10.2 g/dL Hematocrit 32.4 % Mean Corpuscular Volume 98.8 fL Mean Corpuscular Hemoglobin 31.1 pg Mean Corpuscular Hemoglobin Concent 31.5 g/dl RDW Standard Deviation 53.8 fL RDW Coefficient of Variation 15.0 % Platelet Count 210 K/uL Mean Platelet Volume 9.9 fL Activated Partial Thromboplast Time 28.9 SECONDS Partial Thromboplastin Ratio 1.1 Sodium Level 140 mmol/L Potassium Level 3.8 mmol/L Chloride Level 102 mmol/L Carbon Dioxide Level 33 mmol/L Anion Gap 5.0 mmol/L Blood Urea Nitrogen 15 mg/dl Creatinine 1.36 mg/dl Est Creatinine Clear Calc Drug Dose 31.9 ml/min Estimated GFR () 42.5 Estimated GFR (Non- 36.7 BUN/Creatinine Ratio 10.7 Random Glucose 139 mg/dl Calcium Level 8.8 mg/dl Phosphorus Level 3.0 mg/dl Magnesium Level 1.7 mg/dl Albumin 3.3 gm/dl Test 07/31/17 11:23 Bedside Glucose 127 mg/dl Assessment and Plan 82 yo female admitted on july 22, 2017 with weakness, new diagnosis of atrial fibrillation, was having bradycardia and hypotension, still A. 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 (added extra 120mg this am) and avoid dig Increased metoprolol to 100mg BID Continue all on lasix 20mg // Continue Eliquis , was previously on Amiodarone, Diltiazem and Atenolol at time of admission, lead to bradycardia and hypotension echo - normal EF, no WM abnormalities, atrial enlargement, RV dilated but good function Episodes of bradycardia and hypotension: likely due to increased levels of Atenolol and Diltiazem and Amiodarone with renal failure, resolved, treated with Dopamine, weaned off 07/25, Amiodarone and Atenolol stopped indefinitely PATY with hyperkalemia, decreased urine output, Cr stable and slowly improving etiology of PATY was likely poor perfusion with hypotension and bradycardiam, renal US done as outpatient, normal appearing kidneys, dc'ed del rosario right shoulder pain prior to this admission from fall, has pain when range of motion , pain is totally resolved after Lidoderm patch which is help right shoulder Xray was done: : No acute process. Mild degenerative change., Pain help a lot with Lidoderm patch, continue it, and encourage range of motion History of lumbar stenosis, known to be severe 5 years ago when surgery recommended, currently has no back pain , due for epidural injection on 07/30 , advised to follow-up with pain management if needed PT/OT, was planning DC to [facility] , however insurance company denied, in terms of patient able to walk more than 150 feet however the document is patient's previous has condition was independent up and walk and traveling by herself currently is so weak and not comfortable walking by herself, and afraid of balance problem fall, patient's medical condition is complex as well in terms of CHF, diabetic and acute kidney injury, I mentioned this to in their insurance company, however the case to rehab still been denied. I heard the patient's family is appealing DVT Prophylaxis: eddie now Level 1 medicla ready to rehab, or ECF, transferred to [facility] Continued [facility] stay due to: home environment unsafe for pt Discharge planning: rehab hospital, penitentiary facility
[2017-07-31] MEDS: LIDODERM (LIDOCAINE) PATCH 5% TD SCH (19:46)
[2017-07-31 20:30] VITALS: BP 149/80; PULSE 99
[2017-07-31] MEDS: NORTRIPTYLINE HCL 10 MG CAP PO SCH (20:37)
[2017-07-31] MEDS: NORTRIPTYLINE HCL 25 MG CAP PO SCH (20:38)
[2017-07-31] MEDS: ATORVASTATIN 20 MG TAB PO SCH (20:38)
[2017-07-31] MEDS: RANITIDINE HCL 150 MG TAB PO SCH (20:38)
[2017-07-31] MEDS: GABAPENTIN 100 MG CAP PO SCH (20:39)
[2017-08-01 00:09] VITALS: BP 132/85; PULSE 90; TEMP 36.3; O2SAT 93
[2017-08-01] MEDS: LEVOTHYROXINE 25 MCG TAB PO SCH (06:38)
[2017-08-01 08:11] LABS: ALBUMIN 3.5 gm/dl (3.4-5.0); CREATININE 1.41 mg/dl (0.60-1.20); POTASSIUM 3.5 mmol/L (3.5-5.1)
[2017-08-01 08:14] LABS: PHOSPHORUS 3.6 mg/dl (2.5-4.9)
[2017-08-01 08:20] VITALS: BP 152/77; PULSE 83; TEMP 36.4; O2SAT 93
[2017-08-01] MEDS: DILTIAZEM HCL 180 MG CAPCR PO SCH (08:38)
[2017-08-01] MEDS: PANTOprazole SOD 40 MG TAB PO SCH (08:38)
[2017-08-01] MEDS: APIXABAN 2.5 MG TAB PO SCH ×2 (08:38→20:26)
[2017-08-01] MEDS: MAGNESIUM OXIDE 400 MG TAB PO SCH ×2 (08:39→20:25)
[2017-08-01] MEDS: CYANOCOBALAMIN 500 MCG TAB (VIT B-12) PO SCH (08:39)
[2017-08-01] MEDS: METOPROLOL TARTRATE 100 MG TAB PO SCH ×2 (08:40→20:25)
[2017-08-01] MEDS: INSULIN ASPART 100 UNITS/ML 3 ML PEN SC SCH ×4 (08:56→21:00)
--- NOTE | 2017-08-01 15:51 | Progress Note ---
Subjective Date of Service: Aug 01, 2017. Subjective Pt evaluation today including: conversation w/ patient, conversation w/ family , physical exam, chart review, lab review, review of studies, review of inpatient medication list Generally feeling okay, up and walk with therapist, no complaint Problem List Medical Problems: (1) Afib Status: Acute (2) Atrial fibrillation with controlled ventricular rate Status: Acute (3) Chronic anticoagulation Status: Acute (4) Fluid overload Status: Acute (5) Shortness of breath Status: Acute Review of Systems Constitutional: + weakness, + fatigue, No fever, No chills, No sweats, No weight loss, No problem reported Eyes: No worsening of vision, No eye pain, No redness, No discharge, No diplopia ENT: No hearing loss, No unusual epistaxis, No nasal symptoms, No sore throat, No tinnitus, No dental problems, No trouble swallowing Respiratory: No cough, No sputum, No wheezing, No shortness of breath, No dyspnea on exertion, No dyspnea at rest, No hemoptysis Cardiac: No chest pain, No orthopnea, No PND, No edema, No claudication, No palpitations Abdomen: No pain, No nausea, No vomiting, No diarrhea, No constipation Musculoskeletal: + joint pain, No muscle pain, No swelling, No calf pain Female : No dysuria, No urinary frequency, No hematuria, No incontinence, No abnormal vaginal bleeding, No vaginal discharge Neurologic: No memory loss, No paralysis, No weakness, No numbness/tingling, No vertigo, No balance problems Psychiatric: No depression symptoms, No anhedonism, No anxiety, No insomnia, No substance abuse Heme: No abnormal bleeding/bruising, No clotting problems, No swollen lymph nodes, No night sweats Endo: No fatigue, No excessive thirst, No excessive urination Skin: No rash, No itch, No new/changing skin lesions, No color change, No bleeding Objective Vital Signs Date Time Temp Pulse Resp B/P (MAP) Pulse Ox O2 Delivery O2 Flow Rate FiO2 08/01/17 08:20 36.4 83 20 152/77 (102) 93 08/01/17 08:00 Room Air 08/01/17 00:09 36.3 90 20 132/85 (101) 93 Room Air 08/01/17 00:00 Room Air 07/31/17 22:42 Room Air 07/31/17 20:30 99 149/80 (103) 07/31/17 16:00 Room Air 07/31/17 15:51 36.5 86 16 132/78 (96) 95 Room Air Physical Exam General Appearance: WD/WN, no apparent distress, + obese Eyes: normal inspection, PERRL, EOMI, sclerae normal ENT: normal ENT inspection, hearing grossly normal, pharynx normal Neck: supple, no adenopathy, thyroid normal, no JVD, no carotid bruits, trachea midline Respiratory/Chest: chest non-tender, normal breath sounds, no respiratory distress, no accessory muscle use, + decreased breath sounds Cardiovascular: regular rate, rhythm, no gallop, no JVD, no murmur, + pertinent finding (Trace edema) Abdomen: normal bowel sounds, non tender, soft, no organomegaly, no pulsatile mass Extremities: normal range of motion, non-tender, normal inspection, no pedal edema, no calf tenderness, normal capillary refill, pelvis stable 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, no motor/sensory deficits, alert, normal mood/affect, oriented x 3 Skin: normal color, warm/dry, no rash Lymphatic: no adenopathy Laboratory Results Last 24 Hours Test 07/31/17 16:22 07/31/17 20:23 08/01/17 07:21 Bedside Glucose 136 mg/dl 105 mg/dl Sodium Level 138 mmol/L Potassium Level 3.5 mmol/L Chloride Level 101 mmol/L Carbon Dioxide Level 31 mmol/L Anion Gap 6.0 mmol/L Blood Urea Nitrogen 17 mg/dl Creatinine 1.41 mg/dl Est Creatinine Clear Calc Drug Dose 30.7 ml/min Estimated GFR () 40.7 Estimated GFR (Non- 35.1 BUN/Creatinine Ratio 11.8 Random Glucose 134 mg/dl Calcium Level 9.0 mg/dl Phosphorus Level 3.6 mg/dl Albumin 3.5 gm/dl Assessment and Plan 82 yo female admitted on july 22, 2017 with weakness, new diagnosis of atrial fibrillation, was having bradycardia and hypotension, still A. fib, however has been rate controlled Acute diastolic heart failure with pulmonary edema, secondary to IV fluids and Afib with RVR, resolved Acute hypoxic respiratory failure secondary to Acute diastolic heart failure with pulmonary edema , and Afib with RVR , resolved Atrial fibrillation with RVR, better, continue Lopressor to 50mg PO q6, which was changed to metoprolol to 100mg BID Continue oral lasix 20mg /, did not tolerate well, Continue Eddie , was previously on Amiodarone, Diltiazem and Atenolol at time of admission, lead to bradycardia and hypotension echo - normal EF, no WM abnormalities, atrial enlargement, RV dilated but good function Episodes of bradycardia and hypotension: likely due to increased levels of Atenolol and Diltiazem and Amiodarone with renal failure, resolved, treated with Dopamine, weaned off 07/25, Amiodarone and Atenolol stopped indefinitely PATY with hyperkalemia, decreased urine output, Cr stable today's 1.41 from 1.36 yesterday, which is in baseline etiology of PATY was likely poor perfusion with hypotension and bradycardiam, renal US done as outpatient, normal appearing kidneys, dc'ed del rosario right shoulder pain prior to this admission from fall, has pain when range of motion , pain is totally resolved after Lidoderm patch which is happing right shoulder Xray was done: : No acute process. Mild degenerative change., Pain help a lot with Lidoderm patch, continue it, and encourage range of motion History of lumbar stenosis, known to be severe 5 years ago when surgery recommended, currently has no back pain , due for epidural injection on 07/30 , advised to follow-up with pain management if needed PT/OT, was planning DC to [facility] , however insurance company denied, in terms of patient able to walk more than 150 feet however the document is patient's previous has condition was independent up and walk and traveling by herself currently is so weak and not comfortable walking by herself, and afraid of balance problem fall, patient's medical condition is complex as well in terms of CHF, diabetic and acute kidney injury, I mentioned this to in their insurance company, however the case to rehab still been denied. I Patient's family is appealing to her insurance company, Will follow up with her discharge plan DVT Prophylaxis: eddie now Level 1 medicla ready to rehab, or ECF, transferred to [facility] Continued [facility] stay due to: home environment unsafe for pt Discharge planning: rehab hospital, prison facility
[2017-08-01 16:28] VITALS: BP 141/83; PULSE 92; TEMP 36.7; O2SAT 92
[2017-08-01] MEDS: LIDODERM (LIDOCAINE) PATCH 5% TD SCH (19:42)
[2017-08-01] MEDS: NORTRIPTYLINE HCL 25 MG CAP PO SCH (20:24)
[2017-08-01] MEDS: NORTRIPTYLINE HCL 10 MG CAP PO SCH (20:24)
[2017-08-01] MEDS: GABAPENTIN 100 MG CAP PO SCH (20:25)
[2017-08-01] MEDS: RANITIDINE HCL 150 MG TAB PO SCH (20:25)
[2017-08-01] MEDS: ATORVASTATIN 20 MG TAB PO SCH (20:26)
[2017-08-02 00:37] VITALS: BP 129/67; PULSE 84; TEMP 36.8; O2SAT 94
[2017-08-02] MEDS: LEVOTHYROXINE 25 MCG TAB PO SCH (06:26)
[2017-08-02 07:26] LABS: HEMATOCRIT 34.3 % (37-47); HEMOGLOBIN 11.1 g/dL (12.0-16.0); MEAN CELL VOLUME 97.4 fL (80-100); MEAN CORPUSCULAR HEMOGLOBIN 31.5 pg (25-34); MEAN CORPUSCULAR HGB CONC 32.4 g/dl (32-36); MEAN PLATELET VOLUME 8.6 fL (7.4-10.4); PLATELET COUNT 235 K/uL (130-400); RED CELL DISTRIBUTION WIDTH CV 14.8 % (11.5-14.5); RED CELL DISTRIBUTION WIDTH SD 52.3 fL (36.4-46.3); WHITE BLOOD COUNT 6.46 K/uL (4.8-10.8)
[2017-08-02 07:34] VITALS: BP 90/57; PULSE 110; TEMP 36.4; O2SAT 94
[2017-08-02 07:57] LABS: ALBUMIN 3.5 gm/dl (3.4-5.0); CREATININE 1.29 mg/dl (0.60-1.20); POTASSIUM 3.7 mmol/L (3.5-5.1)
[2017-08-02 07:58] LABS: PHOSPHORUS 3.7 mg/dl (2.5-4.9)
[2017-08-02] MEDS: METOPROLOL TARTRATE 100 MG TAB PO SCH ×2 (08:25→20:34)
[2017-08-02] MEDS: DILTIAZEM HCL 180 MG CAPCR PO SCH (08:26)
[2017-08-02] MEDS: APIXABAN 2.5 MG TAB PO SCH ×2 (08:26→20:32)
[2017-08-02] MEDS: MAGNESIUM OXIDE 400 MG TAB PO SCH ×2 (08:26→20:33)
[2017-08-02] MEDS: CYANOCOBALAMIN 500 MCG TAB (VIT B-12) PO SCH (08:26)
[2017-08-02] MEDS: PANTOprazole SOD 40 MG TAB PO SCH (08:26)
[2017-08-02] MEDS: INSULIN ASPART 100 UNITS/ML 3 ML PEN SC SCH ×4 (08:29→20:35)
[2017-08-02 08:48] VITALS: BP 137/68
--- NOTE | 2017-08-02 14:49 | Progress Note ---
Subjective Date of Service: Aug 02, 2017. Subjective Pt evaluation today including: conversation w/ patient, conversation w/ family , physical exam, chart review, lab review, review of studies, review of inpatient medication list Continue doing well, up and walk with walker with therapist in the hallway Problem List Medical Problems: (1) Afib Status: Acute (2) Atrial fibrillation with controlled ventricular rate Status: Acute (3) Chronic anticoagulation Status: Acute (4) Fluid overload Status: Acute (5) Shortness of breath Status: Acute Review of Systems Constitutional: No fever, No chills, No sweats, No weight loss, No weakness, No fatigue, No problem reported Eyes: No worsening of vision, No eye pain, No redness, No discharge, No diplopia ENT: No hearing loss, No unusual epistaxis, No nasal symptoms, No sore throat, No tinnitus, No dental problems, No trouble swallowing Respiratory: No cough, No sputum, No wheezing, No shortness of breath, No dyspnea on exertion, No dyspnea at rest, No hemoptysis Cardiac: No chest pain, No orthopnea, No PND, No edema, No claudication, No palpitations Abdomen: No pain, No nausea, No vomiting, No diarrhea, No constipation Musculoskeletal: No joint pain, No muscle pain, No swelling, No calf pain Female : No dysuria, No urinary frequency, No hematuria, No incontinence, No abnormal vaginal bleeding, No vaginal discharge Neurologic: No memory loss, No paralysis, No weakness, No numbness/tingling, No vertigo, No balance problems Psychiatric: No depression symptoms, No anhedonism, No anxiety, No insomnia, No substance abuse Heme: No abnormal bleeding/bruising, No clotting problems, No swollen lymph nodes, No night sweats Endo: No fatigue, No excessive thirst, No excessive urination Skin: No rash, No itch, No new/changing skin lesions, No color change, No bleeding Objective Vital Signs Date Time Temp Pulse Resp B/P (MAP) Pulse Ox O2 Delivery O2 Flow Rate FiO2 08/02/17 08:48 137/68 (91) 08/02/17 08:00 Room Air 08/02/17 07:34 36.4 110 20 90/57 (68) 94 08/02/17 00:37 36.8 84 20 129/67 (87) 94 Room Air 08/02/17 00:00 Room Air 08/01/17 20:00 Room Air 08/01/17 16:28 36.7 92 18 141/83 (102) 92 Room Air 08/01/17 16:00 Room Air Physical Exam General Appearance: WD/WN, no apparent distress, + obese Eyes: normal inspection, PERRL, EOMI, sclerae normal ENT: normal ENT inspection, hearing grossly normal, pharynx normal Neck: supple, no adenopathy, thyroid normal, no JVD, no carotid bruits, trachea midline Respiratory/Chest: chest non-tender, lungs clear, normal breath sounds, no respiratory distress, no accessory muscle use Cardiovascular: no edema, no gallop, no JVD, no murmur, + irregularly irregular , + pertinent finding (Trace edema) Abdomen: normal bowel sounds, non tender, soft, no organomegaly, no pulsatile mass Extremities: normal range of motion, non-tender, normal inspection, no pedal edema, no calf tenderness, normal capillary refill, pelvis stable Neurologic/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: 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, no motor/sensory deficits, alert, normal mood/affect, oriented x 3 Skin: normal color, warm/dry, no rash Lymphatic: no adenopathy Laboratory Results Last 24 Hours Test 08/01/17 16:42 08/01/17 20:49 08/02/17 07:10 08/02/17 07:16 Bedside Glucose 157 mg/dl 148 mg/dl 166 mg/dl White Blood Count 6.46 K/uL Red Blood Count 3.52 M/uL Hemoglobin 11.1 g/dL Hematocrit 34.3 % Mean Corpuscular Volume 97.4 fL Mean Corpuscular Hemoglobin 31.5 pg Mean Corpuscular Hemoglobin Concent 32.4 g/dl RDW Standard Deviation 52.3 fL RDW Coefficient of Variation 14.8 % Platelet Count 235 K/uL Mean Platelet Volume 8.6 fL Sodium Level 138 mmol/L Potassium Level 3.7 mmol/L Chloride Level 103 mmol/L Carbon Dioxide Level 29 mmol/L Anion Gap 7.0 mmol/L Blood Urea Nitrogen 18 mg/dl Creatinine 1.29 mg/dl Est Creatinine Clear Calc Drug Dose 33.6 ml/min Estimated GFR () 45.3 Estimated GFR (Non- 39.1 BUN/Creatinine Ratio 14.2 Random Glucose 147 mg/dl Calcium Level 9.0 mg/dl Phosphorus Level 3.7 mg/dl Magnesium Level 1.9 mg/dl Albumin 3.5 gm/dl Test 08/02/17 11:42 Bedside Glucose 141 mg/dl Assessment and Plan 82 yo female admitted on july 22, 2017 with weakness, new diagnosis of atrial fibrillation, was having bradycardia and hypotension, A. fib has been rate controlled Acute diastolic heart failure with pulmonary edema, secondary to IV fluids and Afib with RVR, resolved Acute hypoxic respiratory failure secondary to Acute diastolic heart failure with pulmonary edema , and Afib with RVR , resolved Atrial fibrillation with RVR, better, continue Lopressor to 50mg PO q6, which was changed to metoprolol to 100mg BID Continue oral lasix 20mg //, tolerate well, Continue Eliquis , was previously on Amiodarone, Diltiazem and Atenolol at time of admission, lead to bradycardia and hypotension echo - normal EF, no WM abnormalities, atrial enlargement, RV dilated but good function Episodes of bradycardia and hypotension: likely due to increased levels of Atenolol and Diltiazem and Amiodarone with renal failure, resolved, treated with Dopamine, weaned off 07/25, Amiodarone and Atenolol stopped indefinitely PATY with hyperkalemia, decreased urine output, Cr stable today's 1.29, which is in baseline etiology of PATY was likely poor perfusion with hypotension and bradycardiam, renal US done as outpatient, normal appearing kidneys, right shoulder pain prior to this admission from fall, has pain when range of motion , pain is totally resolved after Lidoderm patch which is happing right shoulder Xray was done: : No acute process. Mild degenerative change., Pain help a lot with Lidoderm patch, has been well controlled continue it, and encourage range of motion History of lumbar stenosis, known to be severe 5 years ago when surgery recommended, currently has no back pain , due for epidural injection on 07/30 , advised to follow-up with pain management if needed PT/OT, was planning DC to [facility] , however insurance company denied, in terms of patient able to walk more than 150 feet Patient's family is appealing to her insurance company, Will follow up with her discharge plan DVT Prophylaxis: eliquis now Level 1 medical ready to rehab, or ECF Continued [facility] stay due to: home environment unsafe for pt Discharge planning: rehab hospital, [facility]pc facility
[2017-08-02 14:57] VITALS: BP 129/66; PULSE 85; TEMP 36.6; O2SAT 96
[2017-08-02] MEDS: LIDODERM (LIDOCAINE) PATCH 5% TD SCH (20:09)
[2017-08-02] MEDS: RANITIDINE HCL 150 MG TAB PO SCH (20:31)
[2017-08-02] MEDS: NORTRIPTYLINE HCL 10 MG CAP PO SCH (20:31)
[2017-08-02] MEDS: ATORVASTATIN 20 MG TAB PO SCH (20:31)
[2017-08-02] MEDS: GABAPENTIN 100 MG CAP PO SCH (20:32)
[2017-08-02] MEDS: NORTRIPTYLINE HCL 25 MG CAP PO SCH (20:32)
[2017-08-02 23:57] VITALS: BP 130/81; PULSE 78; TEMP 36.6; O2SAT 94
[2017-08-03] MEDS: LEVOTHYROXINE 25 MCG TAB PO SCH (06:19)
[2017-08-03 06:52] LABS: ALBUMIN 3.5 gm/dl (3.4-5.0); CALCIUM 8.7 mg/dl (8.5-10.1); CREATININE 1.45 mg/dl (0.60-1.20); POTASSIUM 3.9 mmol/L (3.5-5.1)
[2017-08-03 06:53] LABS: PHOSPHORUS 3.4 mg/dl (2.5-4.9)
[2017-08-03 07:02] VITALS: BP 94/56; PULSE 95; TEMP 36.5; O2SAT 93
[2017-08-03 08:24] VITALS: BP 143/66; PULSE 92
[2017-08-03] MEDS: PANTOprazole SOD 40 MG TAB PO SCH (08:26)
[2017-08-03] MEDS: DILTIAZEM HCL 180 MG CAPCR PO SCH (08:26)
[2017-08-03] MEDS: APIXABAN 2.5 MG TAB PO SCH (08:26)
[2017-08-03] MEDS: MAGNESIUM OXIDE 400 MG TAB PO SCH (08:26)
[2017-08-03] MEDS: METOPROLOL TARTRATE 100 MG TAB PO SCH (08:26)
[2017-08-03] MEDS: CYANOCOBALAMIN 500 MCG TAB (VIT B-12) PO SCH (08:26)
[2017-08-03] MEDS: FUROSEMIDE 20 MG TAB PO SCH (08:26)
[2017-08-03] MEDS: INSULIN ASPART 100 UNITS/ML 3 ML PEN SC SCH ×2 (08:34→12:36)
--- NOTE | 2017-08-03 14:22 | Discharge Instructions ---
Discharge Instructions Date of Service Aug 03, 2017. Admission Reason for Admission: Weakness, low back pain Discharge Discharge Diagnosis / Problem: Atrial fibrillation with bradycardia and hypotension, PATY, acute CHF Discharge Goals Goal(s): Improve function, Improve disease control Activity Recommendations Activity Limitations: resume your previous activity . Instructions / Follow-Up Instructions / Follow-Up Medications: please note the medications that were stopped and new medications on discharge Atrial fibrillation: rates controlled on Metoprolol and Cardizem note that Atenolol and Amiodarone have been stopped Eliquis for anticoagulation follow up closely with Dr. Venegas in 2-3 weeks Acute kidney injury: was likely due to bradycardia, low blood pressure kidneys responded quickly to increased blood pressures and fluids Cr is back to baseline continue on Lasix three days a week (MWF) Spinal stenosis: please reschedule as soon as possible to help with pain control and mobility please discuss with them that you are on Eliquis and would need to hold prior to injection Please continue outpatient therapy FOLLOW UP - Dr. Toussaint, call for appointment to be seen in next 5-7 days - Dr. Venegas, should follow up in 2-3 weeks - call for pain management epidural Current Hospital Diet Patient's current hospital diet: AHA Diet (Heart Healthy), Diabetes Type 2 Diet Discharge Diet Recommended Diet: AHA Diet (Heart Healthy), Diabetes Type 2 Diet Pending Studies Studies pending at discharge: no Medical Emergencies . Who to Call and When: Medical Emergencies: If at any time you feel your situation is an emergency, please call 911 immediately. . Non-Emergent Contact Non-Emergency issues call your: Primary Care Provider, Stitch Wheeler Call Non-Emergent contact if: you have any medication questions . . "Provider Documentation" section prepared by Jhoan Vargas. . [place] Drug Monitoring Program Search Results: no issues identified
[2017-08-03 14:40] VITALS: BP 143/66; PULSE 92; TEMP 36.5; O2SAT 93
--- NOTE | 2017-08-07 06:57 | EDITING REQUIRED CODING QUERY ---
CODING QUERY To promote full compliance with coding requirements relating to patient care, provider participation is requested in all cases of paper pattern folder uncertainty. Please assist us with the question(s) below: Coding Question(s): Please document the anatomical site where the arterial line ends. Physician's Response(s): The catheter was threaded over the guide wire and the needle was removed with appropriate pulsatile blood return. Perfusion to the extremity distal to the point of catheter insertion was checked and found to be adequate. Thank you Bing Doyle Principal Diagnosis: "_that condition established after study, to be chiefly responsible for occasioning the admission of the patient to the hospital for care." Co-Existing Principal Diagnosis: "_when two or more diagnoses equally meet the criteria for principal diagnosis as determined by the circumstances of admission, diagnostic work up, and/or therapy provided, and the Alphabetic Index, Tabular List, or another coding guideline does not provide sequencing direction, any one of the diagnoses may be sequenced first." "When the physician has documented what appears to be a current diagnosis in the body of the record, but has not included the diagnosis in the final diagnostic statement, the physician should be asked whether the diagnosis should be added." (Source Coding [facility] 2 QTR90. p3-4)
--- NOTE | 2017-08-09 12:01 | Discharge Summary ---
Discharge Summary Date of Service Aug 03, 2017. Discharge Summary Admission Date: Jul 23, 2017 at 15:10 Discharge Date: Aug 03, 2017 Discharge Disposition: Home with services Principal Diagnosis: Atrial fibrillation with RVR Problems/Secondary Diagnoses: Bradycardia and Hypotension due to medication toxicity Acute kidney injury Acute hypoxic respiratory failure Acute diastolic heart failure Severe spinal stenosis Immunizations: Have You Had Influenza Vaccine: Yes History of Tetanus Vaccine?: Unknown History of Pneumococcal: Yes History of Hepatitis B Vaccine: No Procedures: none Consultations: Critical care Cardiology Nephrology Medication Reconciliation New Medications: Metoprolol Succinate (Metoprolol Succinate ER) 50 Mg Tabcr 100 MG PO BID, #30 Diltiazem HCl (Diltiazem HCl ER) 180 Mg Capcr 360 MG PO QAM for 30 Days Levothyroxine Sodium (Synthroid) 25 Mcg Tab 25 MCG PO DAILYBB for 30 Days, TAB Lidocaine (Lidocaine) 1 Patch Tdsy 1 PATCH TD DAILY@1930 for 3 Days Magnesium Oxide (Magnesium-Oxide) 400 Mg Tab 400 MG PO BID for 30 Days, #60 TAB Changed Medications: Furosemide (Lasix) 20 Mg Tab 20 MG PO MWF for 30 Days, TAB (Changed from: DAILY) Continued Medications: Allopurinol (Zyloprim) Unknown Strength Tab 1 TAB PO QAM, TAB Apixaban (Eliquis) 5 Mg Tab 2.5 MG PO BID, TAB Atorvastatin (Lipitor) 20 Mg Tab 20 MG PO QPM, 0 Refills Cyanocobalamin (Vitamin B12) 1,000 Mcg Tab 1 TAB PO QAM Diclofenac Sodium (Topical) (Voltaren 1% Top Gel) 1 % Gel 1 DOSE EXT DAILY PRN for Pain Gabapentin (Neurontin) 400 Mg Cap 400 MG PO QAM, CAP Gabapentin (Neurontin) 400 Mg Cap 800 MG PO HS Multiple Vitamins W/ Minerals (Centrum) 1 Tab Tab 1 TAB PO QAM Nortriptyline (Pamelor) 10 Mg Cap 10 MG PO HS, CAP Nortriptyline (Pamelor) 25 Mg Cap 25 MG PO HS, CAP Ocuvite Preservision (Ocuvite Preservision) 1 Tab Tab 1 TAB PO AMHS Ranitidine (Zantac) 150 Mg Tab 150 MG PO HS, TAB Tapentadol Hcl (Nucynta) 50 Mg Tab 50 MG PO BID PRN for prn, TAB Discontinued Medications: Amiodarone Hcl (Cordarone) 200 Mg Tab 200 MG PO UD, TAB Atenolol (Tenormin) 50 Mg Tab 50 MG PO BID Diltiazem Hcl Ext Rel (Tiazac) 240 Mg Capcr 240 MG PO DAILY, CAP Esomeprazole Magnesium (Nexium) 40 Mg Capcr 40 MG PO QAM, CAP Telmisartan (Micardis) 80 Mg Tab 80 MG PO QAM, TAB Discharge Exam Patient was feeling well on the day of discharge, she was medically stable, awaiting decision on rehab. She was denied rehab and denied peer to peer. Considering family appeal but also looking into going to SNF for rehab. When she was re-evaluated by PT and OT for insurance authorization purposes, she did well enough that she was cleared to go home with outpatient physical therapy. She was happy to be discharged to home, did not really have interest in going to SNF for rehab. Review of Systems: Constitutional: + weakness, No fever, No chills, No sweats, No weight loss, No fatigue, No problem reported Eyes: No worsening of vision, No eye pain, No redness, No discharge, No diplopia, No problem reported ENT: No hearing loss, No unusual epistaxis, No nasal symptoms, No sore throat, No tinnitus, No dental problems, No trouble swallowing, No problem reported Respiratory: No cough, No sputum, No wheezing, No shortness of breath, No dyspnea on exertion, No dyspnea at rest, No hemoptysis, No problem reported Cardiovascular: No chest pain, No orthopnea, No PND, No edema, No claudication, No palpitations, No problem reported Abdomen: No pain, No nausea, No vomiting, No diarrhea, No constipation, No GI bleeding, No problem reported Musculoskeletal: + joint pain (low back, chronic), No muscle pain, No swelling, No calf pain, No problem reported Genitourinary - Female: No dysuria, No urinary frequency, No urinary urgency , No urinary incontinence Neurologic: No memory loss, No paralysis, No weakness, No numbness/tingling , No vertigo, No balance problems, No problem reported Psychiatric: No depression symptoms, No anhedonism, No anxiety, No insomnia , No substance abuse, No problem reported Endocrine: No fatigue, No excessive thirst, No excessive urination, No problem reported Hematologic / Lymphatic: No abnormal bleeding/bruising, No clotting problems , No swollen lymph nodes, No night sweats, No problem reported Integumentary: No rash, No itch, No new/changing skin lesions, No color change, No bleeding, No problem reported Physical Exam: General Appearance: no apparent distress, + obese Eyes: normal inspection, EOMI, sclerae normal ENT: normal ENT inspection, hearing grossly normal, pharynx normal Neck: supple, no adenopathy, no JVD, trachea midline Respiratory/Chest: chest non-tender, lungs clear, normal breath sounds, no respiratory distress, no accessory muscle use Cardiovascular: no edema, no gallop, no JVD, no murmur, normal peripheral pulses, + irregularly irregular Abdomen / GI: normal bowel sounds, non tender, soft, no organomegaly Extremities: normal inspection, no calf tenderness, normal capillary refill , no pedal edema, pelvis stable, + pertinent finding (severe low back pain, decrease ROM, abnormal gait due to pain) 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 She was urgently transferred to the ICU 24 hours after admission for HR in the 40's and BP 70/ 40. She was placed on dopamine and had good response overnight. Determined to be caused by combination of Atenolol and Amiodarone and Cardizem. Likely culprit was Atenolol which is renally secreted and she had PATY causing build up of Atenolol in her system. She was treated with Dopamine for 24 hours and weaned off. Renal function improved with fluid support and Dopamine causing increased renal perfusion. The following day she went back into atrial fibrillation with RVR and had acute diastolic heart failure, acute hypoxia. Improved with rate control with metoprolol and Lasix. Over next several days HR was controlled and dosages adjusted with metoprolol. She was very weak, evaluated by therapy, has chronic severe spinal stenosis in lumbar spine. Initially planned to go to rehab at [facility], had to wait over weekend, was denied. Planning on family appeal but was found to be strong enough to go home , she chose to go home with outpatient physical therapy. - Acute diastolic heart failure with pulmonary edema, secondary to IV fluids and Afib with RVR, resolved - Acute hypoxic respiratory failure secondary to Acute diastolic heart failure with pulmonary edema , and Afib with RVR , resolved - Atrial fibrillation with RVR, rates controlled with Cardizem 360mg daily and metoprolol 100mg BID anticoagulated on Eliquis continue Lasix 20mg on MWF follow up with Dr. Venegas in the office echo showed normal EF, no WM abnormalities, atrial enlargement Episodes of bradycardia and hypotension: likely due to increased levels of Atenolol and Diltiazem and Amiodarone with renal failure, resolved, treated with Dopamine, weaned off 07/25, Amiodarone and Atenolol stopped indefinitely Acute kidney injury with hyperkalemia, decreased urine output etiology of PATY was likely poor perfusion with hypotension and bradycardia, renal US done as outpatient, normal appearing kidneys d/c to home on lasix MWF for week prior to discharge Cr ranged from 1.2 to 1.5, was 1.4 on the day of discharge, making adequate urine right shoulder pain prior to this admission from fall, has pain when range of motion , pain is totally resolved after Lidoderm patch right shoulder Xray was done: : No acute process. Mild degenerative change., Pain help a lot with Lidoderm patch, has been well controlled continue it, and encourage range of motion History of lumbar stenosis, known to be severe 5 years ago when surgery recommended, currently has no back pain , was due for epidural injection on but missed appt advised to follow-up with pain management if needed, would need to hold Eliquis prior to any injections PT/OT, was planning DC to [facility] , however insurance company denied, in terms of patient able to walk more than 150 feet was re-evaluated, cleared to go home with outpatient PT, she was happy with this plan DVT Prophylaxis: eliquis Total Time Spent: Greater than 30 minutes This includes examination of the patient, discharge planning, medication reconciliation, and communication with other providers. Discharge Instructions Please refer to the electronic Patient Visit Report (Discharge Instructions) for additional information. Follow-Up Dr. Toussaint in one week Dr. Venegas in 2-3 weeks Additional Copies To Freddy Venegas, DO; William Toussaint M.D.
== END 2017-08-03 15:09 | disposition home or self-care (01) | DRG 308 ==
LOC: C.EDB 13:02 → C.MS4W 16:26 → CANRESERV 16:52 → ENRESERV 16:52 → OBSVTOIN 07-23 15:10 → ENRESERV 07-23 17:20 → EDBEDREQSVC 07-23 17:21 → C.MSICU 07-23 17:27 → C.MS4W 07-23 17:27 → C.MSICU 07-23 17:28 → C.2T 07-25 13:51 → ENRESERV 07-31 13:48 → C.MS2W 07-31 16:57
PROVIDERS: ADMIT Internal Medicine; ATTEND Internal Medicine
PROC: 03HB33Z Insertion of Infusion Device into Right Radial Artery, Percutaneous Approach (ICD-10-PCS; principal; 2017-07-24)
DX: I49.5 Sick sinus syndrome (principal); N17.0 Acute kidney failure with tubular necrosis; I50.33 Acute on chronic diastolic (congestive) heart failure; Z68.41 Body mass index [BMI] 40.0-44.9, adult; I13.0 Hypertensive heart and chronic kidney disease with heart failure and stage 1 through stage 4 chronic kidney disease, or unspecified chronic kidney disease; I48.2 Chronic atrial fibrillation; R00.1 Bradycardia, unspecified; I34.0 Nonrheumatic mitral (valve) insufficiency; E87.5 Hyperkalemia; J45.909 Unspecified asthma, uncomplicated; D64.9 Anemia, unspecified; R29.6 Repeated falls; M10.9 Gout, unspecified; N18.3 Chronic kidney disease, stage 3 (moderate); G89.29 Other chronic pain; G47.33 Obstructive sleep apnea (adult) (pediatric); M54.5 Low back pain; I11.0 Hypertensive heart disease with heart failure; E66.9 Obesity, unspecified; I95.9 Hypotension, unspecified; M48.00 Spinal stenosis, site unspecified; I07.1 Rheumatic tricuspid insufficiency; E11.22 Type 2 diabetes mellitus with diabetic chronic kidney disease; Z87.01 Personal history of pneumonia (recurrent); Z91.013 Allergy to seafood; Z79.01 Long term (current) use of anticoagulants; Z90.49 Acquired absence of other specified parts of digestive tract; Z82.49 Family history of ischemic heart disease and other diseases of the circulatory system

== ENCOUNTER → 2017-07-22 | Outpatient (CLI) | payer BC ==
[~2017-07-22] MED LIST changes: +CRDCD180 PO; +LDDP5 TD; +MGNO400 PO; +SYN25 PO; +TPRSR50 PO
--- NOTE | 2017-07-22 09:41 | DIAGNOSTIC IMAGING REPORT ---
(RENAL)RETROPERITON COMP HISTORY: 82 years-old Female N18.4 Chronic kidney disease, stage IV (severe)[id number] COMPARISON: Renal ultrasound 09/20/2015 TECHNIQUE: Multiple real-time sonographic images of the kidneys and urinary bladder were obtained assessing grayscale appearance and color flow FINDINGS: Right kidney measures 8.2 x 3.9 x 3.5 cm and demonstrates mild diffuse cortical thinning with increased parenchymal echogenicity. No renal calculi, hydronephrosis or suspicious mass lesions. The left kidney measures 9.0 x 4.7 x 4.3 cm and also demonstrates mild diffuse cortical thinning with increased parenchymal echogenicity. No renal calculi, hydronephrosis or suspicious mass lesions. Partially decompressed urinary bladder with ureteral jets not identified. IMPRESSION: 1. No renal calculi or hydronephrosis. 2. Mild bilateral renal cortical thinning with increased echogenicity of the parenchyma suggesting chronic medical renal disease. The above report was generated using voice recognition software. It may contain grammatical, syntax or spelling errors. Electronically signed by: Manuel Vargas M.D. 07/22/2017 9:40 AM Dictated Date/Time: 07/22/2017 9:36 AM
== END | disposition home or self-care (01) ==
LOC: C.ULTRBC 09:05
PROVIDERS: ATTEND Internal Medicine Geriatric Medicine
DX: N18.4 Chronic kidney disease, stage 4 (severe) (principal)

== ENCOUNTER → 2017-08-18 | Outpatient (CLI) | payer BC, OTHER ==
[~2017-08-18] MED LIST changes: -ALPR-411 PO; -AMIO200T4 PO; -ATEN50TA8 PO; +CRDCD180 PO; -DILT-115 PO; +FURO-85 PO; +LDDP5 TD; +MGNO400 PO; +MULT-190 PO; -NXM/40 PO; +SYN25 PO; -TELM80TA PO; +TPRSR50 PO
[2017-08-18 17:36] LABS: ALBUMIN 3.5 gm/dl (3.4-5.0); ALT/SGPT 24 U/L (12-78); AST/SGOT 16 U/L (15-37); BLOOD UREA NITROGEN 29 mg/dl (7-18); CALCIUM 8.8 mg/dl (8.5-10.1); CARBON DIOXIDE 31 mmol/L (21-32); CREATININE 1.81 mg/dl (0.60-1.20); GLUCOSE 225 mg/dl (70-99); POTASSIUM 4.2 mmol/L (3.5-5.1); SODIUM 136 mmol/L (136-145)
[2017-08-18 17:47] LABS: ALKALINE PHOSPHATASE 98 U/L (45-117); TOTAL PROTEIN 6.8 gm/dl (6.4-8.2)
== END | disposition home or self-care (01) ==
LOC: C.LABPBG 13:07
PROVIDERS: ATTEND Internal Medicine Geriatric Medicine
DX: N18.4 Chronic kidney disease, stage 4 (severe) (principal); R94.6 Abnormal results of thyroid function studies; R94.5 Abnormal results of liver function studies

== ENCOUNTER 2018-08-14 20:24 | Inpatient (IN) ==
--- NOTE | 2018-08-14 20:58 | Emergency Department Note ---
Entered by Fab House acting as a scribe for Nitin Jose MD History of Present Illness General Chief complaint: Leg Injury/Pain Stated complaint: BLISTERS ON LEGS/PAINFUL Time Seen by Provider: 08/14/18 20:32 Source: patient History of Present Illness Onset (ago): week(s) 1 Location: lower extremity Pain Consistency: + constant (worsening) Quality: + other (painful blisters in lower extremities) Associated symptoms: no chest pain, no fever/chills, no headaches and no shortness of breath The patient is an 83 year old female who presents to the Emergency Room with complaints of worsening blisters on her lower extremities. The blisters formed one week ago, and she reports constant pain in both of her legs. She states that she was evaluated by her PCP four days ago for the blisters, and no intervention was performed aside from bandaging. She states that they have been worsening since that time. She reports a history of CHF and a few days ago had her Lasix dosage increased from 60 mg twice daily to 80 mg twice daily. She states that she monitors her weight, and it has remained unchanged over the past few days. She also reports a history of heart attack, cardiac stent placement, and atrial fibrillation for which she takes Plavix and Eliquis. She regularly takes NovoLog and Lantus for her diabetes. The patient denies injuries, falls, chest pain, shortness of breath, fevers, chills, headaches, melena, or hematochezia. Home Medications Home Medications Medication Instructions Recorded Confirmed Type allopurinol 300 mg PO QAM 12/14/17 08/14/18 History apixaban [Eliquis] 5 mg PO BID 12/14/17 08/14/18 History cholecalciferol (vitamin D3) 1,000 unit PO QAM 12/14/17 08/14/18 History [Vitamin D3] cyanocobalamin (vitamin B-12) 1,000 mcg PO QAM 12/14/17 08/14/18 History [Vitamin B-12] diclofenac sodium [Voltaren] 2 g TOPICAL BID PRN 12/14/17 08/14/18 History furosemide 80 mg PO BID 12/14/17 08/14/18 History gabapentin 400 mg PO UD 12/14/17 08/14/18 History magnesium oxide 400 mg PO QAM 12/14/17 08/14/18 History metoprolol succinate 100 mg PO BID 12/14/17 08/14/18 History ranitidine HCl 150 mg PO HS 12/14/17 08/14/18 History vit C,M-Xz-nwlhr-lutein-zeaxan 1 tab PO BID 12/14/17 08/14/18 History [PreserVision AREDS-2] acetaminophen [Tylenol Arthritis 2 tabs PO UD PRN 08/14/18 08/14/18 History Pain] atorvastatin 80 mg PO HS 08/14/18 08/14/18 History benzonatate 100 mg PO TID 08/14/18 08/14/18 History digoxin 125 mg PO QAM 08/14/18 08/14/18 History fluticasone propionate 1 spray INTRANASAL BID 08/14/18 08/14/18 History gabapentin 300 mg PO UD 08/14/18 08/14/18 History insulin aspart U-100 [Novolog 2 units SUBCUT TIDM 08/14/18 08/14/18 History Flexpen U-100 Insulin] insulin glargine [Lantus Solostar 22 units SUBCUT HS 08/14/18 08/14/18 History U-100 Insulin] isosorbide mononitrate 30 mg PO QAM 08/14/18 08/14/18 History levothyroxine 50 mcg PO QAM 08/14/18 08/14/18 History pantoprazole 40 mg PO QAM 08/14/18 08/14/18 History potassium chloride [Klor-Con M20] 20 meq PO QAM 08/14/18 08/14/18 History Allergies Allergy/AdvReac Type Severity Reaction Status Date / Time shellfish derived Allergy Severe ANAPHYLAXIS Verified 08/14/18 22:22 iodine Allergy Intermediate ANAPHYLAXIS Verified 08/14/18 22:22 paroxetine AdvReac Unknown GI UPSET Verified 08/14/18 22:22 Past Med/Surg History Medical History Gout (Chronic) Anxiety (Chronic) Obesity (Chronic) Osteoarthritis (Chronic) GERD (gastroesophageal reflux disease) (Chronic) Hyperlipidemia (Chronic) COPD (chronic obstructive pulmonary disease) (Chronic) History of rectocele (Resolved) Status post repair Lumbago (Chronic) Hypothyroidism (Chronic) Spinal stenosis, lumbar region with neurogenic claudication (Chronic) Diabetes type 2, controlled (Chronic) Chronic kidney disease (CKD) (Chronic) Stage III baseline creat 1.3-1.6 Mitral regurgitation (Chronic) Obstructive sleep apnea (Chronic) Atrial fibrillation (Chronic) Diastolic congestive heart failure (Chronic) Asthma (Chronic) Anemia (Chronic) Chronic macrocytic Falls frequently (Chronic) Gait disorder (Chronic) Hypertension (Chronic) Effusion of knee joint right (Inactive) Surgical History S/P implantation of urinary electronic stimulator device (Resolved) History of cataract extraction (Resolved) History of breast biopsy (Resolved) History of cholecystectomy (Resolved) History of oophorectomy (Resolved) History of total abdominal hysterectomy (Resolved) Social History Preferred Language: Yemeni Feels Safe at Home: Yes Smoking Status: Never smoker Review of Systems See HPI for pertinent positives & negatives. and A total of 10 systems reviewed and were otherwise negative Physical Exam Vital Signs Vital Signs - 24 hr 08/14/18 20:26 08/14/18 20:51 08/14/18 22:20 Temperature 36.6 C Temperature Source Oral Sepsis Recent Fever Within 48 Hours No Sepsis New/Unexplained Change in Mental Status No Sepsis Action Taken by Nursing No Action Required Pulse Rate 85 Pulse Rate [Right Finger] 105 H Pulse Rhythm [Right Finger] Irregular Pulse Strength [Right Finger] Normal Respiratory Rate 18 20 Respiratory Effort / Characteristics Non-Labored Spontaneous Non-Labored Spontaneous Respiratory Depth Normal Normal Respiratory Pattern Blood Pressure 129/68 Blood Pressure [Right Arm] 133/90 Blood Pressure Mean 88 Blood Pressure Mean [Right Arm] 104 Pulse Oximetry 100 100 98 Oxygen Delivery Method Room Air Room Air Room Air 08/14/18 22:56 08/14/18 23:45 08/15/18 00:15 Temperature Temperature Source Sepsis Recent Fever Within 48 Hours Sepsis New/Unexplained Change in Mental Status Sepsis Action Taken by Nursing Pulse Rate Pulse Rate [Right Finger] 102 H 108 H 119 H Pulse Rhythm [Right Finger] Pulse Strength [Right Finger] Respiratory Rate 23 20 16 Respiratory Effort / Characteristics Non-Labored Spontaneous Non-Labored Spontaneous Non-Labored Spontaneous Respiratory Depth Normal Normal Normal Respiratory Pattern Regular Regular Regular Blood Pressure Blood Pressure [Right Arm] 115/82 121/84 119/78 Blood Pressure Mean Blood Pressure Mean [Right Arm] 93 96 91 Pulse Oximetry 98 98 97 Oxygen Delivery Method Room Air Room Air Room Air General: Non-ill appearing older female in no acute distress. HEENT: Normal cephalic atraumatic. Pupils are equal round and reactive to light. Extraocular movements are intact. Oropharynx is pink with moist mucous membranes. No swelling of the mouth lips or tongue. Neck: Supple with a midline trachea. No meningeal signs or stiffness, no JVD or bruits. No Stridor. Chest: Clear to auscultation bilaterally. No wheezes or rhonchi. No increased work of breathing. Heart: regular rate and rhythm. Abdomen: Soft nontender, nondistended without rebound guarding or rigidity. Extremities: There is bilateral lower extremity edema and blistering of the skin of the lower extremities. The right swanson has a large area of skin sloughing with some pink discoloration. No calf tenderness or asymmetry Spine/Back. Non tender to palpation. No CVA tenderness Skin: The right swanson has a large area of skin sloughing with some pink discoloration. Good turgor. Neurologic exam: Cranial nerves two through 12 are intact. Motor and sensation are intact and symmetrical throughout. Course 2035: The patient was evaluated in room A11B. A complete history and physical examination were performed. 2220: I checked on the patient, who is still having leg pain. 9: I consulted Dr. Daly [facility] Hospitalist. The patient will be reevaluated for hospitalization. Administered Medications Hydromorphone HCl (Dilaudid) 0.5 mg IV Q1H PRN PRN Reason: Pain Stop: 08/29/18 00:04 Last Admin: 08/15/18 00:11 Dose: 0.5 mg Documented by: [id number] Discontinued Medications Furosemide (Lasix) 40 mg IV NOW STA Stop: 08/14/18 22:23 Last Admin: 08/14/18 22:50 Dose: 40 mg Documented by: [id number] Morphine Sulfate (Morphine Sulfate) 2 mg IV NOW STA Stop: 08/14/18 22:23 Last Admin: 08/14/18 22:50 Dose: 2 mg Documented by: [id number] Medical Decision Making Differential Diagnosis Differential diagnosis: CHF, cellulitis, venous congestion, DVT, electrolyte or metabolic abnormalities Medical Records Attestation: I reviewed the patient's medical records. Home Medications Current Medication List: was personally reviewed by me Laboratory Data Attestation: I reviewed the patient's lab results. Result diagrams: 08/14/18 21:41 08/14/18 21:41 Lab Results 08/14/18 08/14/18 Range/Units 21:41 21:41 WBC 6.53 (4.8-10.8) K/uL RBC 3.11 L (4.2-5.4) M/uL Hgb 9.1 L (12.0-16.0) g/dL Hct 29.6 L (37-47) % MCV 95.2 (80-100) fL MCH 29.3 (25-34) pg MCHC 30.7 L (32-36) g/dL RDW Std Deviation 73.4 H (36.4-46.3) fL RDW Coeff of Talia 21.3 H (11.5-14.5) % Plt Count 212 (130-400) K/uL MPV 9.8 (7.4-10.4) fL Immature Gran % (Auto) 0.6 % Neut % (Auto) 76.3 % Lymph % (Auto) 10.7 % Richardson % (Auto) 7.5 % Eos % (Auto) 4.6 % Baso % (Auto) 0.3 % Immature Gran # (Auto) 0.04 H (0.00-0.02) K/uL Neut # (Auto) 4.98 (1.4-6.5) K/uL Lymph # (Auto) 0.70 L (1.2-3.4) K/uL Richardson # (Auto) 0.49 (0.11-0.59) K/uL Eos # (Auto) 0.30 (0-0.5) K/uL Baso # (Auto) 0.02 (0-0.2) K/uL Anisocytosis Present Ovalocytes 2+ Schistocytes 1+ Sodium 140 (136-145) mmol/L Potassium 3.4 L (3.5-5.1) mmol/L Chloride 101 (98-107) mmol/L Carbon Dioxide 32 (21-32) mmol/L Anion Gap 7.0 (3-11) BUN 29 H (7-18) mg/dl Creatinine 1.65 H (0.6-1.2) mg/dl Est Cr Clr Drug Dosing 25.9 ml/min Est GFR ( Amer) 33.4 Est GFR (Non-Af Amer) 28.8 BUN/Creatinine Ratio 17.3 (10-20) Glucose 147 H (70-99) mg/dl Calcium 8.6 (8.5-10.1) mg/dl Total Bilirubin 1.4 H (0.2-1) mg/dl AST 22 (15-37) U/L ALT 26 (12-78) U/L Alkaline Phosphatase 131 H (45-117) U/L Troponin I < 0.015 (0-0.045) ng/ml NT-Pro-B Natriuret Pep 3440 H (0-1800) pg/ml Total Protein 6.9 (6.4-8.2) gm/dl Albumin 3.3 L (3.4-5.0) gm/dl Globulin 3.6 (2.5-4.0) gm/dl Albumin/Globulin Ratio 0.9 (0.9-2) Lipase 91 (73-393) U/L Imaging Data Radiologist's Impression: Radiology results as stated below per my review and the radiologist's interpretation: XR chest 1V portable CLINICAL HISTORY: Chest Pain dyspnea COMPARISON STUDY: 09/09/2017 FINDINGS: The bones soft tissues and hemidiaphragms are normal. The cardiomediastinal silhouette is normal. The lungs are clear. The pulmonary vasculature is normal. IMPRESSION: Negative chest. The above report was generated using voice recognition software. It may contain grammatical, syntax or spelling errors. Electronically signed by: Perry Weiss M.D. 08/14/2018 9:46 PM ECG Data Attestation: I personally reviewed and interpreted this ECG as follows: Indication: other (leg swelling) Rate (beats per minute): 114 Rhythm: atrial fibrillation (rapid) Findings: + other (poor R wave progression; no acute ST segment elevation) Comparison ECG Date: from (September 2015) Change: the following changes noted (rate has now increased) Blood Pressure Blood Pressure Findings: Normal blood pressure Blood Pressure Disposition: did not require urgent referral MDM Narrative This patient comes in as described above. She was placed in room A 11. She is here for treatment and evaluation of bilateral leg pain and swelling. She has blisters and skin breakdown and edema. She does have a history of CHF and A. fib. She denies any current chest pain or shortness of breath. She does not believe that she has gained any weight. IV access established EKG was obtained which does show A. fib that slightly fast at 114. Chest x-ray multiple blood testing was obtained. She was reassessed frequently. Chest x-ray does not show any definite pulmonary edema. BNP was elevated. Her BUN and creatinine are mildly elevated. I do think that is her skin issues are from no swelling from CHF with right-sided heart failure. She is complaining of pain and was given morphine 2 mill grams IV. She is also given Lasix 40 mg IV for diuresis. I have consulted. I do think she needs to be admitted/observe for her bilateral peripheral edema CHF and lower extremity pain. I have consulted Dr. Daly to see her in the ER for these measures. Impression & Plan CHF (congestive heart failure), Peripheral edema, Lower extremity pain, Atrial fibrillation with rapid ventricular response Discharge Plan Visit Data Chief Complaint: Leg Injury/Pain Stated Complaint: BLISTERS ON LEGS/PAINFUL ED Provider: Nitin Jose Discharge Problem: CHF (congestive heart failure), Peripheral edema, Lower extremity pain, Atrial fibrillation with rapid ventricular response Patient Disposition: Being Evaluated by Hospitalist Forms Stand Alone Forms: My [facility] Prescriptions Prescriptions: No Action atorvastatin 80 mg tablet 80 mg PO HS RF: 0 gabapentin 300 mg capsule 300 mg PO UD RF: 0 isosorbide mononitrate 30 mg tablet extended release 24 hr 30 mg PO QAM RF: 0 acetaminophen [Tylenol Arthritis Pain] 650 mg Tablet Extended Release 2 tabs PO UD PRN (Reason: Pain) RF: 0 potassium chloride [Klor-Con M20] 20 mEq tablet,ER particles/crystals 20 meq PO QAM RF: 0 benzonatate 100 mg capsule 100 mg PO TID RF: 0 levothyroxine 50 mcg tablet 50 mcg PO QAM RF: 0 pantoprazole 40 mg tablet,delayed release (DR/EC) 40 mg PO QAM RF: 0 digoxin 125 mcg tablet 125 mg PO QAM RF: 0 fluticasone propionate 50 mcg/actuation spray,suspension 1 spray intranasal BID RF: 0 Novolog Flexpen U-100 Insulin 100 unit/mL (3 mL) insulin pen 2 units subcut TIDM RF: 0 Lantus Solostar U-100 Insulin 100 unit/mL (3 mL) insulin pen 22 units subcut HS RF: 0 allopurinol 300 mg Tablet 300 mg PO QAM RF: 0 Eliquis 2.5 mg Tablet 5 mg PO BID RF: 0 cholecalciferol (vitamin D3) [Vitamin D3] 1,000 unit Tablet 1,000 unit PO QAM RF: 0 furosemide 40 mg Tablet 80 mg PO BID RF: 0 gabapentin 400 mg Capsule 400 mg PO UD RF: 0 ranitidine HCl 150 mg Tablet 150 mg PO HS RF: 0 PreserVision AREDS-2 [id number] Capsule 1 tab PO BID RF: 0 magnesium oxide 400 mg Capsule 400 mg PO QAM RF: 0 metoprolol succinate 100 mg Tablet Extended Release 24 Hr 100 mg PO BID RF: 0 cyanocobalamin (vitamin B-12) [Vitamin B-12] 1,000 mcg Tablet 1,000 mcg PO QAM RF: 0 diclofenac sodium [Voltaren] 1 % Gel 2 g TOPICAL BID PRN (Reason: Pain) RF: 0 Referrals Referrals: PCP,NO [Primary Care Provider] - The scribe's documentation has been prepared under my direction and personally reviewed by me in its entirety. I confirm that the note above accurately reflects all work, treatment, procedures, and medical decision making performed by me.
--- NOTE | 2018-08-14 21:47 | XRay Report ---
XR chest 1V portable CLINICAL HISTORY: Chest Pain dyspnea COMPARISON STUDY: 09/09/2017 FINDINGS: The bones soft tissues and hemidiaphragms are normal. The cardiomediastinal silhouette is n ormal. The lungs are clear. The pulmonary vasculature is normal. IMPRESSION: Negative chest. The above report was generated using voice recognition software. It may contain grammatical, syntax or spelling errors. Electronically signed by: Perry Weiss M.D. 08/14/2018 9:46 PM
[2018-08-14 21:51] LABS: Basophils # (auto) 0.02 K/uL (0-0.2); Basophils % (auto) 0.3 %; Eosinophils % (auto) 4.6 %; Hematocrit (blood only) 29.6 % (37-47); Hemoglobin 9.1 g/dL (12.0-16.0); Immature Granulocytes # (auto) 0.04 K/uL (0.00-0.02); Immature Granulocytes % (auto) 0.6 %; Lymphocytes % (auto) 10.7 %; Mean Corpuscular Hgb Conc 30.7 g/dL (32-36); Mean Corpuscular Volume 95.2 fL (80-100); Mean Platelet Volume 9.8 fL (7.4-10.4); Monocytes # (auto) 0.49 K/uL (0.11-0.59); Monocytes % (auto) 7.5 %; Neutrophils # (auto) 4.98 K/uL (1.4-6.5); Neutrophils % (auto) 76.3 %; Platelet Count 212 K/uL (130-400); RDW Coefficient of Variation 21.3 % (11.5-14.5); RDW Standard Deviation 73.4 fL (36.4-46.3); Red Blood Count 3.11 M/uL (4.2-5.4); White Blood Count 6.53 K/uL (4.8-10.8)
[2018-08-14 22:09] LABS: Alanine Aminotransferase 26 U/L (12-78); Albumin Level 3.3 gm/dl (3.4-5.0); Aspartate Aminotransferase 22 U/L (15-37); BUN Creatinine Ratio 17.3 (10-20); Blood Urea Nitrogen 29 mg/dl (7-18); Calcium 8.6 mg/dl (8.5-10.1); Carbon Dioxide 32 mmol/L (21-32); Chloride 101 mmol/L (98-107); Creatinine Clr Calc Pharmacy 25.9 ml/min; Est GFR (African American) 33.4; Est GFR (Non-African American) 28.8; Glucose 147 mg/dl (70-99); Potassium 3.4 mmol/L (3.5-5.1); Sodium 140 mmol/L (136-145)
[2018-08-14 22:14] LABS: Albumin Globulin Ratio 0.9 (0.9-2); Alkaline Phosphatase 131 U/L (45-117); Bilirubin,Total 1.4 mg/dl (0.2-1); Globulin 3.6 gm/dl (2.5-4.0); NT Pro B Type Natriuretic Pept 3440 pg/ml (0-1800); Total Protein 6.9 gm/dl (6.4-8.2); Troponin I < 0.015 ng/ml (0-0.045)
[2018-08-14] MEDS ORDERED: MoRPHine SULFATE 2 MG/ML CARP IV STA (22:22)
[2018-08-14] MEDS ORDERED: FUROSEMIDE 40 MG/4 ML VIAL IV STA (22:22)
[2018-08-14 22:39] LABS: Anisocytosis Present; Ovalocytes 2+; Schistocytes 1+
--- NOTE | 2018-08-14 23:36 | History & Physical Report ---
Date of Service August 14, 2018 Assessment & Plan (1) Peripheral edema: Patient with progressively worsening bilateral LE edema with weeping blisters. Skin changes consistent with chronic venous stasis as well. Does not appear to have active cellulitis at this time. She is afebrile, no leuko cytosis, legs are cool. Possibly secondary to CHF -Check UA and TSH -Lasix 80mg IV BID. Patient typically takes 80mg po BID. Will monitor with BID BMPs -Wound care BID -Tylenol 650mg IV q 8 hours -Morphine 1mg IV q 4 hours PRN pain (2) Atrial fibrillation: Patient in atrial fibrillation 90-120's. Anticoagulated on Eliquis -Continue digoxin 125mcg po daily -Continue Metoprolol 100mg po BID -Continue Eliquis -Cardiac monitoring Present on Admission?: Yes (3) Diastolic congestive heart failure: Suspect acute diastolic CHF exacerbation contributing to worsening LE edema. Patient denies rapid weight gain, SOB or orthopnea -Lasix 80mg IV BID -Monitor BMP BID to assess electrolytes and renal function during diuresis -Continue digoxin -Continue Metoprolol -Continue Isosorbide -Daily weights, strict I/Os, low Na diet (4) CAD (coronary artery disease): Patient states she had two heart attacks in March with stent placement. -Continue Plavix (was not on Med Rec but patient reports taking it) -Continue Atorvastatin, Metoprolol -Cardiac monitoring -Obtain records from [facility] stay (5) Diabetes type 2, controlled: Patient with DM on insulin therapy. RcT3O=5.3 in February. -Change Lantus to 11u BID -ISS -Continue Neurontin (6) Obstructive sleep apnea: Patient has not used her CPAP for years. -She should have repeat sleep study as outpatient -CPAP qHS Present on Admission?: Yes (7) Hypertension: Blood pressure well controlled at present, 133/90 -Continue Metoprolol -Continue to monitor Present on Admission?: Yes (8) Anemia: Normochromic/normocytic anemia. Hg=9.1, Hct=29.6. She has had variable H/H in the past, this is slightly lower than prior readings. No active bleeding reported -Continue to monitor Present on Admission?: Yes (9) Hypothyroidism: Chronic. Stable -Check TSH -Continue Synthroid Present on Admission?: Yes (10) Hyperlipidemia: Chronic -Continue Atorvastatin (11) GERD (gastroesophageal reflux disease): Chronic. Stable -Continue Ranitidine -Continue Protonix (12) Gout: Chronic. Stable -Continue Allopurinol F/E/N - diuresis with Lasix 80mg IV BID, monitor BUN/Cr and electrolytes BID, check Mg and PO4 x 1, continue Mag PO and KCl, Kdur 40mEq PO x 1, CC/Heart healthy diet as tolerated, Purewick catheter Ppx - Eliquis for anticoagulation for AF. Continue Protonix/Ranitidine Code - Full per discussion with patient Dispo - Admit to med/tele History of Present Illness Chief Complaint: LE edema Primary Care Provider: NO PCP Mrs. Porter is a pleasant 83yo female with multiple medical comorbidities to include diastolic CHF, AF on Eliquis, DM, HTN, HLP, CKD, COPD presenting with worsening LE edema. Symptoms began on 07/08/18 and have been progressively worsening. She has worsening edema, pain and weeping blisters. She reports gaining approximately 13 pounds since March but she has been at a stable weight of appx 188#. She has been taking Tylenol at home for the pain but is still in considerable discomfort. She denies fevers, chills, SOB, orthopnea. She denies CP/palpitations. Patient had a prolonged and complicated hospital stay in [facility] in March 2018. She states that she had two heart attacks, had a stent placed and was intubated in the MICU. Will try to obtain records. ER Course: Lasix 40mg IV, Morphine Allergies Allergy/AdvReac Type Severity Reaction Status Date / Time shellfish derived Allergy Severe ANAPHYLAXIS Verified 08/14/18 22:22 iodine Allergy Intermediate ANAPHYLAXIS Verified 08/14/18 22:22 paroxetine AdvReac Unknown GI UPSET Verified 08/14/18 22:22 Home Medications Home Medications Medication Instructions Recorded Confirmed Type allopurinol 300 mg PO QAM 12/14/17 08/14/18 History apixaban [Eliquis] 5 mg PO BID 12/14/17 08/14/18 History cholecalciferol (vitamin D3) 1,000 unit PO QAM 12/14/17 08/14/18 History [Vitamin D3] cyanocobalamin (vitamin B-12) 1,000 mcg PO QAM 12/14/17 08/14/18 History [Vitamin B-12] diclofenac sodium [Voltaren] 2 g TOPICAL BID PRN 12/14/17 08/14/18 History furosemide 80 mg PO BID 12/14/17 08/14/18 History gabapentin 400 mg PO UD 12/14/17 08/14/18 History magnesium oxide 400 mg PO QAM 12/14/17 08/14/18 History metoprolol succinate 100 mg PO BID 12/14/17 08/14/18 History ranitidine HCl 150 mg PO HS 12/14/17 08/14/18 History vit C,O-Mo-kfbrx-lutein-zeaxan 1 tab PO BID 12/14/17 08/14/18 History [PreserVision AREDS-2] acetaminophen [Tylenol Arthritis 2 tabs PO UD PRN 08/14/18 08/14/18 History Pain] atorvastatin 80 mg PO HS 08/14/18 08/14/18 History benzonatate 100 mg PO TID 08/14/18 08/14/18 History digoxin 125 mg PO QAM 08/14/18 08/14/18 History fluticasone propionate 1 spray INTRANASAL BID 08/14/18 08/14/18 History gabapentin 300 mg PO UD 08/14/18 08/14/18 History insulin aspart U-100 [Novolog 2 units SUBCUT TIDM 08/14/18 08/14/18 History Flexpen U-100 Insulin] insulin glargine [Lantus Solostar 22 units SUBCUT HS 08/14/18 08/14/18 History U-100 Insulin] isosorbide mononitrate 30 mg PO QAM 08/14/18 08/14/18 History levothyroxine 50 mcg PO QAM 08/14/18 08/14/18 History pantoprazole 40 mg PO QAM 08/14/18 08/14/18 History potassium chloride [Klor-Con M20] 20 meq PO QAM 08/14/18 08/14/18 History Past Med/Surg History Medical History Gout (Chronic) Anxiety (Chronic) Obesity (Chronic) Osteoarthritis (Chronic) GERD (gastroesophageal reflux disease) (Chronic) Hyperlipidemia (Chronic) COPD (chronic obstructive pulmonary disease) (Chronic) History of rectocele (Resolved) Status post repair Lumbago (Chronic) Hypothyroidism (Chronic) Spinal stenosis, lumbar region with neurogenic claudication (Chronic) Diabetes type 2, controlled (Chronic) Chronic kidney disease (CKD) (Chronic) Stage III baseline creat 1.3-1.6 Mitral regurgitation (Chronic) Obstructive sleep apnea (Chronic) Atrial fibrillation (Chronic) Diastolic congestive heart failure (Chronic) HTN (hypertension) (Chronic) Asthma (Chronic) Anemia (Chronic) Chronic macrocytic Falls frequently (Chronic) Gait disorder (Chronic) Hypertension (Chronic) Effusion of knee joint right (Inactive) Surgical History S/P implantation of urinary electronic stimulator device (Resolved) History of cataract extraction (Resolved) History of breast biopsy (Resolved) History of cholecystectomy (Resolved) History of oophorectomy (Resolved) History of total abdominal hysterectomy (Resolved) Family History Other Coronary heart disease Social History Preferred Language: Kyrgyz Feels Safe at Home: Yes Smoking Status: Never smoker Review of Systems Review of Systems: All systems reviewed & are unremarkable except as noted in HPI & below Physical Exam Physical Exam: General: patient resting comfortably, in pain from LE blisters, non-toxic in appearance, AA&O x 4 Skin: warm, dry, multiple bruises on her back and forearms, LEs see below HEENT: NC/AT, PERRL, EOMI, anicteric sclera, conjunctiva without injection, external ear normal to inspection and nontender, nares patent, moist mucus membranes, dentition intact, no oropharyngeal lesions, neck supple, trachea midline, no LAD, no thyromegaly, no JVD Heart: +S1/S2, irregularly irregular, no m/r/g Lungs: equal air entry bilaterally, no rales/rhonchi/wheezes Abd: +BS, soft, NT/ND, no masses/organomegaly/ascites Ext: warm, 2+ pulses in UE/LE bilaterally, no clubbing/cyanosis, 3+ pitting e pepe of bilateral LEs. Skin cool to touch, red, thickened multiple blisters, weeping serosanguinous fluid soaking the sheets, RLE with some drainage, no foul smell Neuro: nonfocal, patient AA&O x 4, speech intact, no facial droop, moving all extremities on command with equal strength 5/5 Results & Data Vital Signs (Past 12 Hours) Vital Signs Temp Pulse Pulse Resp BP BP Pulse Ox 08/14/18 22:56 102 H 23 115/82 98 08/14/18 22:20 105 H 20 133/90 98 08/14/18 20:51 100 08/14/18 20:26 36.6 C 85 18 129/68 100 Laboratory Results Lab Results 08/14/18 08/14/18 Range/Units 21:41 21:41 WBC 6.53 (4.8-10.8) K/uL RBC 3.11 L (4.2-5.4) M/uL Hgb 9.1 L (12.0-16.0) g/dL Hct 29.6 L (37-47) % MCV 95.2 (80-100) fL MCH 29.3 (25-34) pg MCHC 30.7 L (32-36) g/dL RDW Std Deviation 73.4 H (36.4-46.3) fL RDW Coeff of Talia 21.3 H (11.5-14.5) % Plt Count 212 (130-400) K/uL MPV 9.8 (7.4-10.4) fL Immature Gran % (Auto) 0.6 % Neut % (Auto) 76.3 % Lymph % (Auto) 10.7 % Slope % (Auto) 7.5 % Eos % (Auto) 4.6 % Baso % (Auto) 0.3 % Immature Gran # (Auto) 0.04 H (0.00-0.02) K/uL Neut # (Auto) 4.98 (1.4-6.5) K/uL Lymph # (Auto) 0.70 L (1.2-3.4) K/uL Slope # (Auto) 0.49 (0.11-0.59) K/uL Eos # (Auto) 0.30 (0-0.5) K/uL Baso # (Auto) 0.02 (0-0.2) K/uL Anisocytosis Present Ovalocytes 2+ Schistocytes 1+ Sodium 140 (136-145) mmol/L Potassium 3.4 L (3.5-5.1) mmol/L Chloride 101 (98-107) mmol/L Carbon Dioxide 32 (21-32) mmol/L Anion Gap 7.0 (3-11) BUN 29 H (7-18) mg/dl Creatinine 1.65 H (0.6-1.2) mg/dl Est Cr Clr Drug Dosing 25.9 ml/min Est GFR ( Amer) 33.4 Est GFR (Non-Af Amer) 28.8 BUN/Creatinine Ratio 17.3 (10-20) Glucose 147 H (70-99) mg/dl Calcium 8.6 (8.5-10.1) mg/dl Total Bilirubin 1.4 H (0.2-1) mg/dl AST 22 (15-37) U/L ALT 26 (12-78) U/L Alkaline Phosphatase 131 H (45-117) U/L Troponin I < 0.015 (0-0.045) ng/ml NT-Pro-B Natriuret Pep 3440 H (0-1800) pg/ml Total Protein 6.9 (6.4-8.2) gm/dl Albumin 3.3 L (3.4-5.0) gm/dl Globulin 3.6 (2.5-4.0) gm/dl Albumin/Globulin Ratio 0.9 (0.9-2) Lipase 91 (73-393) U/L Diagnostic Findings XR chest 1V portable CLINICAL HISTORY: Chest Pain dyspnea COMPARISON STUDY: 09/09/2017 FINDINGS: The bones soft tissues and hemidiaphragms are normal. The cardiomediastinal silhouette is normal. The lungs are clear. The pulmonary vasculature is normal. IMPRESSION: Negative chest. The above report was generated using voice recognition software. It may contain grammatical, syntax or spelling errors. Electronically signed by: Perry Weiss M.D. 08/14/2018 9:46 PM Dictated: 08/14/[id number] Transcribed: 08/14/182145 Code Status & VTE Plan Code Status Full per discussion with patient VTE Prophylaxis Plan VTE Prophylaxis will be ordered: No (1) Atrial fibrillation Atrial fibrillation type: permanent Qualified Code(s): I48.2 - Chronic atrial fibrillation (2) Diastolic congestive heart failure Heart failure chronicity: acute Qualified Code(s): I50.31 - Acute diastolic (congestive) heart failure (3) Hypertension Hypertension type: essential hypertension Qualified Code(s): I10 - Essential (primary) hypertension (4) Anemia Anemia type: unspecified type Qualified Code(s): D64.9 - Anemia, unspecified (5) Hypothyroidism Hypothyroidism type: unspecified Qualified Code(s): E03.9 - Hypothyroidism, unspecified (6) Hyperlipidemia Hyperlipidemia type: unspecified Qualified Code(s): E78.5 - Hyperlipidemia, unspecified (7) GERD (gastroesophageal reflux disease) Esophagitis presence: esophagitis presence not specified Qualified Code(s): K21.9 - Gastro-esophageal reflux disease without esophagitis (8) Diabetes type 2, controlled Diabetes mellitus usp insulin use: with usp use Diabetes mellitus complication status: without complication Qualified Code(s): E11.9 - Type 2 diabetes mellitus without complications; Z79.4 - halfway (current) use of insulin
[2018-08-15] MEDS ORDERED: HYDROmorphone INJ 0.5 MG/0.5 ML SYR IV PRN (00:05)
[2018-08-15] MEDS ORDERED: GABAPENTIN 300 MG CAP PO SCH (01:12)
[2018-08-15] MEDS ORDERED: GLUCOSE 10 TABS/TUBE PO PRN (01:12)
[2018-08-15] MEDS ORDERED: MoRPHine SULFATE 2 MG/ML CARP IV PRN (01:12)
[2018-08-15] MEDS ORDERED: DEXTROSE 50% 50 ML SYRINGE IV PRN (01:12)
[2018-08-15] MEDS ORDERED: POTASSIUM CHLORIDE 10 MEQ TABCR PO STA (01:12)
[2018-08-15] MEDS ORDERED: ONDANSETRON INJ 2 MG/ML 2 ML VIAL IV PRN (01:12)
[2018-08-15] MEDS ORDERED: GLUCOSE 40% GEL 15 GM TUBE PO PRN (01:12)
[2018-08-15] MEDS ORDERED: GLUCAGON FOR INJ 1 MG VIAL SQ PRN (01:12)
[2018-08-15] MEDS ORDERED: CARBOHYDRATES FOR HYPOGLYCEMIA PO PRN (01:12)
[2018-08-15] MEDS: INSULIN GLARGINE SOLOSTAR 100 UNITS/ML 3 ML PEN SC SCH ×3 (01:54→20:51)
[2018-08-15] MEDS: ACETAMINOPHEN 65 ML IV SCH ×3 (01:54→19:24)
[2018-08-15] MEDS: METOPROLOL SUCC 50MG EXT REL TAB PO SCH ×3 (01:55→20:51)
[2018-08-15 02:04] LABS: BUN Creatinine Ratio 17.8 (10-20); Calcium 8.5 mg/dl (8.5-10.1); Est GFR (African American) 35.5; Est GFR (Non-African American) 30.6; Magnesium 1.5 mg/dl (1.8-2.4); Phosphorus 3.1 mg/dl (2.5-4.9); Potassium 3.4 mmol/L (3.5-5.1)
[2018-08-15 02:09] LABS: Appearance Urine Clear (Clear); Bilirubin Urine Negative (Negative); Blood Urine Negative (Negative); Color Urine Yellow; Glucose Urine UA Negative (Negative); Ketones Urine Negative (Negative); Leukocyte Esterase Urine Negative (Negative); Nitrite Urine Negative (Negative); Protein Urine Negative (Negative); Specific Gravity Urine 1.011 (1.000-1.030); Urobilinogen Urine Negative (Negative); pH Urine 6.5 (4.5-7.5)
[2018-08-15] MEDS: HYDROmorphone INJ 0.5 MG/0.5 ML SYR IV PRN ×6 (05:47→23:28)
[2018-08-15] MEDS: LEVOTHYROXINE SODIUM 50 MCG TABLET PO SCH (05:48)
[2018-08-15 05:51] LABS: Basophils # (auto) 0.01 K/uL (0-0.2); Basophils % (auto) 0.2 %; Eosinophils # (auto) 0.26 K/uL (0-0.5); Eosinophils % (auto) 4.6 %; Hematocrit (blood only) 29.5 % (37-47); Hemoglobin 8.9 g/dL (12.0-16.0); Immature Granulocytes # (auto) 0.03 K/uL (0.00-0.02); Immature Granulocytes % (auto) 0.5 %; Lymphocytes # (auto) 0.64 K/uL (1.2-3.4); Lymphocytes % (auto) 11.3 %; Mean Corpuscular Hgb Conc 30.2 g/dL (32-36); Mean Corpuscular Volume 96.1 fL (80-100); Mean Platelet Volume 10.1 fL (7.4-10.4); Monocytes % (auto) 8.9 %; Neutrophils % (auto) 74.5 %; Platelet Count 194 K/uL (130-400); RDW Coefficient of Variation 21.8 % (11.5-14.5); RDW Standard Deviation 74.7 fL (36.4-46.3); Red Blood Count 3.07 M/uL (4.2-5.4); White Blood Count 5.64 K/uL (4.8-10.8)
[2018-08-15 06:13] LABS: Anisocytosis Present; Ovalocytes 2+
[2018-08-15 06:21] LABS: Albumin Level 3.1 gm/dl (3.4-5.0); Bilirubin Direct 0.4 mg/dl (0-0.2); Bilirubin,Total 1.4 mg/dl (0.2-1); Total Protein 6.4 gm/dl (6.4-8.2)
[2018-08-15] MEDS: INSULIN ASPART 100 UNITS/ML 3 ML PEN SC SCH ×4 (09:05→20:52)
[2018-08-15] MEDS: PANTOprazole 40 MG TAB PO SCH (09:13)
[2018-08-15] MEDS: BENZONATATE 100 MG CAPSULE PO SCH ×3 (09:13→20:50)
[2018-08-15] MEDS: POTASSIUM CHLORIDE 20 MEQ TABCR PO SCH (09:13)
[2018-08-15] MEDS: MAGNESIUM OXIDE 400 MG TAB PO SCH (09:13)
[2018-08-15] MEDS: FLUTICASONE PROPIONATE NA SPR 16 GM BTL SCH ×2 (09:14→20:51)
[2018-08-15] MEDS: CLOPIDOGREL BISULFATE 75 MG TAB PO SCH (09:14)
[2018-08-15] MEDS: ISOSORBIDE MONO EXTENDED REL 30 MG TABCR PO SCH (09:14)
[2018-08-15] MEDS: ALLOPURINOL 300 MG TAB PO SCH (09:14)
[2018-08-15] MEDS: FUROSEMIDE 80 MG in SYRINGE 0 ML IV SCH ×2 (09:15→17:09)
[2018-08-15] MEDS: APIXABAN 2.5 MG TAB PO SCH ×2 (09:15→20:51)
[2018-08-15] MEDS ORDERED: TRAMADOL HCL 50 MG TABLET PO PRN (13:54)
--- NOTE | 2018-08-15 14:01 | Hospitalist Progress Note ---
Date of Service August 15, 2018 Assessment & Plan (1) Peripheral edema: Patient with progressively worsening bilateral LE edema with weeping blisters. Skin changes consistent with chronic venous stasis as well. Does not appear to have active cellulitis at this time. She is afebrile, no leukocytosis, legs are cool. Possibly secondary to CHF. - Continue Lasix 80mg IV BID - Monitor weights and I&Os - Wound care - Follow up echo (2) Diastolic congestive heart failure: Unclear whether this is systolic vs. diastolic. 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 Moderate/severe MR. No LVH. However, this was in the setting of septic shock, intubation, and pressors. - Lasix 80mg IV BID - Repeat echo as above - Monitor Cr -Continue metoprolol & isosorbide - Daily weights, strict I/Os, low Na diet (3) Atrial fibrillation: Patient in atrial fibrillation 90-120's. Anticoagulated on Eliquis. - Continue digoxin 125mcg po daily - Continue Metoprolol 100mg po BID - Continue Eliquis (4) CAD (coronary artery disease): Patient states she had two heart attacks in March with stent placement. - Continue ASA, Plavix (was not on Med Rec but patient reports taking it), beta- abilio, and statin - Get outside hospital records (5) Diabetes type 2, controlled: Patient with DM on insulin therapy. HgA1C was 7.3% in February. - Change Lantus to 11u BID - Sliding scale insulin - Continue gabapentin (6) Obstructive sleep apnea: Patient has not used her CPAP for years. - She should have repeat sleep study as outpatient - CPAP qHS (7) Hypertension: Blood pressure well controlled at present. - Continue metoprolol (8) Anemia: Normochromic/normocytic anemia. Hgb on admission was 9.1. She has had variable H/H in the past; this is slightly lower than prior readings. No active bleeding. - Continue to monitor (9) Hypothyroidism: Chronic. TSH was -Continue home Synthroid 50 mcg PO daily (10) Hyperlipidemia: Chronic. - Continue atorvastatin (11) GERD (gastroesophageal reflux disease): Chronic. Stable. - Continue PPI and H2 abilio (12) Gout: Chronic. No current flare. - Continue allopurinol (13) DVT prophylaxis: On Eliquis for anticoagulation Subjective Still with significant pain in her legs. Blisters are opened and oozing. Reports no fevers/chills, chest pain, shortness of breath, abdominal pain, nausea, or vomiting. Review of Systems Review of Systems: All systems reviewed & are unremarkable except as noted in HPI & below Physical Exam Constitutional: WD/WN, vitals as above Eyes: EOM intact bilaterally; no conjunctival abnormality ENMT: external ear and nose normal, oropharynx normal Neck: trachea midline, no thyromegaly normal visual inspection Respiratory: normal respiratory effort, lungs clear to auscultation no respiratory distress Cardiovascular: RRR, no murmur, no edema Gastrointestinal (Abdomen): Inspection/Auscultation: abdomen normal to inspection; abdomen not distended Musculoskeletal: no cyanosis or clubbing, extremities motor strength 5/5 Skin: + ulcer (Weeping blisters on the right calf) Neurologic: moves all extremities and awake Psychiatric: Orientation: alert, oriented to person and cooperative Results & Data Vital Signs (Past 12 Hours) Vital Signs Temp Pulse Pulse Resp BP BP Pulse Ox 08/15/18 12:00 36.7 C 116 H 18 114/60 91 08/15/18 08:13 36.6 C 87 20 126/81 99 08/15/18 03:47 36.6 C 87 20 122/76 98 (1) Atrial fibrillation Atrial fibrillation type: permanent Qualified Code(s): I48.2 - Chronic atrial fibrillation (2) Diastolic congestive heart failure Heart failure chronicity: acute Qualified Code(s): I50.31 - Acute diastolic (congestive) heart failure (3) Diabetes type 2, controlled Diabetes mellitus long term care social worker insulin use: with residential use Diabetes mellitus complication status: without complication Qualified Code(s): E11.9 - Type 2 diabetes mellitus without complications; Z79.4 - FPC (current) use of insulin (4) Hypertension Hypertension type: essential hypertension Qualified Code(s): I10 - Essential (primary) hypertension (5) Anemia Anemia type: unspecified type Qualified Code(s): D64.9 - Anemia, unspecified (6) Hypothyroidism Hypothyroidism type: unspecified Qualified Code(s): E03.9 - Hypothyroidism, unspecified (7) Hyperlipidemia Hyperlipidemia type: unspecified Qualified Code(s): E78.5 - Hyperlipidemia, unspecified (8) GERD (gastroesophageal reflux disease) Esophagitis presence: esophagitis presence not specified Qualified Code(s): K21.9 - Gastro-esophageal reflux disease without esophagitis
[2018-08-15] MEDS: MAGNESIUM SULFATE / D5W 1 GM/100 ML BAG IV SCH ×2 (14:40→15:38)
[2018-08-15] MEDS: DIGOXIN 0.125 MG TAB PO SCH (15:41)
[2018-08-15] MEDS ORDERED: DIGOXIN 0.125 MG TAB PO SCH (16:00)
[2018-08-15] MEDS: ATORVASTATIN 40 MG TAB PO SCH (20:51)
[2018-08-15] MEDS: GABAPENTIN 300 MG CAP PO SCH (20:51)
[2018-08-16] MEDS: ACETAMINOPHEN 65 ML IV SCH ×3 (01:45→18:54)
[2018-08-16] MEDS: LEVOTHYROXINE SODIUM 50 MCG TABLET PO SCH (05:34)
[2018-08-16] MEDS: HYDROmorphone INJ 0.5 MG/0.5 ML SYR IV PRN ×4 (06:18→17:07)
[2018-08-16 06:37] LABS: Hematocrit (blood only) 28.1 % (37-47); Hemoglobin 8.6 g/dL (12.0-16.0); Mean Corpuscular Hgb Conc 30.6 g/dL (32-36); Mean Corpuscular Volume 95.6 fL (80-100); Mean Platelet Volume 11.9 fL (7.4-10.4); Platelet Count 225 K/uL (130-400); RDW Coefficient of Variation 21.4 % (11.5-14.5); RDW Standard Deviation 74.1 fL (36.4-46.3); Red Blood Count 2.94 M/uL (4.2-5.4); White Blood Count 6.35 K/uL (4.8-10.8)
[2018-08-16 07:13] LABS: BUN Creatinine Ratio 18.9 (10-20); Calcium 8.7 mg/dl (8.5-10.1); Est GFR (African American) 41.1; Est GFR (Non-African American) 35.5; Potassium 2.9 mmol/L (3.5-5.1)
[2018-08-16] MEDS: ISOSORBIDE MONO EXTENDED REL 30 MG TABCR PO SCH (08:37)
[2018-08-16] MEDS: POTASSIUM CHLORIDE 20 MEQ TABCR PO SCH (08:37)
[2018-08-16] MEDS: FUROSEMIDE 80 MG in SYRINGE 0 ML IV SCH ×2 (08:37→17:02)
[2018-08-16] MEDS: FLUTICASONE PROPIONATE NA SPR 16 GM BTL SCH ×2 (08:37→21:18)
[2018-08-16] MEDS: APIXABAN 2.5 MG TAB PO SCH ×2 (08:37→21:19)
[2018-08-16] MEDS: TRAMADOL HCL 50 MG TABLET PO PRN (08:38)
[2018-08-16] MEDS: CLOPIDOGREL BISULFATE 75 MG TAB PO SCH (08:38)
[2018-08-16] MEDS: GABAPENTIN 300 MG CAP PO SCH ×3 (08:38→21:49)
[2018-08-16] MEDS: MAGNESIUM OXIDE 400 MG TAB PO SCH (08:38)
[2018-08-16] MEDS: METOPROLOL SUCC 50MG EXT REL TAB PO SCH ×2 (08:38→21:22)
[2018-08-16] MEDS: PANTOprazole 40 MG TAB PO SCH (08:38)
[2018-08-16] MEDS: ALLOPURINOL 300 MG TAB PO SCH (08:38)
[2018-08-16] MEDS: BENZONATATE 100 MG CAPSULE PO SCH ×3 (08:38→21:22)
[2018-08-16] MEDS: INSULIN GLARGINE SOLOSTAR 100 UNITS/ML 3 ML PEN SC SCH ×2 (08:39→21:20)
[2018-08-16] MEDS: INSULIN ASPART 100 UNITS/ML 3 ML PEN SC SCH ×4 (08:39→21:23)
[2018-08-16] MEDS ORDERED: POTASSIUM CHLORIDE PWD 20 MEQ PACK PO ONE (12:05)
--- NOTE | 2018-08-16 13:07 | Hospitalist Progress Note ---
Date of Service August 16, 2018 Assessment & Plan (1) Peripheral edema: Patient with progressively worsening bilateral LE edema with weeping blisters. Skin changes consistent with chronic venous stasis as well. Does not appear to have active cellulitis at this time. She is afebrile, no leukocytosis, legs are cool. Secondary to CHF. 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 Moderate/severe MR. No LVH. However, this was in the setting of septic shock, intubation, and pressors. Echo on 08/15 showed EF back to 55-60%. - Lasix 80mg IV BID - Monitor Cr -Continue metoprolol & isosorbide - Daily weights, strict I/Os, low Na diet (3) Atrial fibrillation: Patient in atrial fibrillation 80-90's. Anticoagulated on Eliquis. - Continue digoxin 125mcg po daily - Continue Metoprolol 100mg po BID - Continue Eliquis (4) CAD (coronary artery disease): Patient states she had two heart attacks in March with stent placement. - Continue ASA, Plavix (was not on Med Rec but patient reports taking it), beta- abilio, and statin (5) Diabetes type 2, controlled: Patient with DM on insulin therapy. HgA1C was 7.3% in February. - Lantus to 11u BID - Sliding scale insulin - Continue gabapentin (6) Obstructive sleep apnea: Patient has not used her CPAP for years. - She should have repeat sleep study as outpatient - CPAP qHS (7) Hypertension: Blood pressure well controlled at present. - Continue metoprolol (8) Anemia: Normochromic/normocytic anemia. Hgb on admission was 9.1. She has had variable H/H in the past; this is slightly lower than prior readings. No active bleeding. - Continue to monitor (9) Hypothyroidism: Chronic. No signs/symptoms of hypo-/hyperthyroidism. - Continue home Synthroid 50 mcg PO daily (10) Hyperlipidemia: Chronic. - Continue atorvastatin (11) GERD (gastroesophageal reflux disease): Chronic. Stable. - Continue PPI and H2 abilio (12) Gout: Chronic. No current flare. - Continue allopurinol (13) DVT prophylaxis: On Eliquis for anticoagulation Subjective Still with leg pain. Review of Systems Review of Systems: All systems reviewed & are unremarkable except as noted in HPI & below Physical Exam Constitutional: WD/WN, vitals as above Eyes: EOM intact bilaterally; no conjunctival abnormality ENMT: external ear and nose normal, oropharynx normal Neck: trachea midline, no thyromegaly normal visual inspection Respiratory: normal respiratory effort, lungs clear to auscultation no respiratory distress Cardiovascular: RRR, no murmur, no edema Gastrointestinal (Abdomen): Inspection/Auscultation: abdomen normal to inspection; abdomen not distended Musculoskeletal: no cyanosis or clubbing, extremities motor strength 5/5 Skin: no rashes, warm and dry Neurologic: moves all extremities and awake Psychiatric: Orientation: alert, oriented to person and cooperative Results & Data Vital Signs (Past 12 Hours) Vital Signs Temp Pulse Pulse Resp BP Pulse Ox 08/16/18 11:09 36.5 C 84 22 129/72 97 08/16/18 09:00 91 H 08/16/18 07:42 36.9 C 82 16 119/76 93 08/16/18 05:19 36.4 C L 90 17 100/57 L 96 (1) Diastolic congestive heart failure Heart failure chronicity: acute Qualified Code(s): I50.31 - Acute diastolic (congestive) heart failure (2) Atrial fibrillation Atrial fibrillation type: permanent Qualified Code(s): I48.2 - Chronic atrial fibrillation (3) Diabetes type 2, controlled Diabetes mellitus termite control servicer insulin use: with long-term use Diabetes mellitus complication status: without complication Qualified Code(s): E11.9 - Type 2 di abetes mellitus without complications; Z79.4 - USP (current) use of insulin (4) Hypertension Hypertension type: essential hypertension Qualified Code(s): I10 - Essential (primary) hypertension (5) Anemia Anemia type: unspecified type Qualified Code(s): D64.9 - Anemia, unspecified (6) Hypothyroidism Hypothyroidism type: unspecified Qualified Code(s): E03.9 - Hypothyroidism, unspecified (7) Hyperlipidemia Hyperlipidemia type: unspecified Qualified Code(s): E78.5 - Hyperlipidemia, unspecified (8) GERD (gastroesophageal reflux disease) Esophagitis presence: esophagitis presence not specified Qualified Code(s): K21.9 - Gastro-esophageal reflux disease without esophagitis
[2018-08-16] MEDS: DIGOXIN 0.125 MG TAB PO SCH (16:19)
[2018-08-16] MEDS: ATORVASTATIN 40 MG TAB PO SCH (21:23)
[2018-08-17] MEDS: ACETAMINOPHEN 65 ML IV SCH ×3 (02:09→17:30)
[2018-08-17] MEDS: HYDROmorphone INJ 0.5 MG/0.5 ML SYR IV PRN (06:03)
[2018-08-17] MEDS: LEVOTHYROXINE SODIUM 50 MCG TABLET PO SCH (06:05)
[2018-08-17 07:13] LABS: BUN Creatinine Ratio 16.9 (10-20); Calcium 8.2 mg/dl (8.5-10.1); Creatinine Clr Calc Pharmacy 27.7 ml/min; Est GFR (Non-African American) 31.1; Potassium 3.3 mmol/L (3.5-5.1)
[2018-08-17] MEDS: APIXABAN 2.5 MG TAB PO SCH ×2 (08:49→20:33)
[2018-08-17] MEDS: METOPROLOL SUCC 50MG EXT REL TAB PO SCH ×2 (08:49→20:34)
[2018-08-17] MEDS: PANTOprazole 40 MG TAB PO SCH (08:49)
[2018-08-17] MEDS: FLUTICASONE PROPIONATE NA SPR 16 GM BTL SCH ×2 (08:49→20:32)
[2018-08-17] MEDS: ALLOPURINOL 300 MG TAB PO SCH (08:49)
[2018-08-17] MEDS: TRAMADOL HCL 50 MG TABLET PO PRN (08:49)
[2018-08-17] MEDS: DOCUSATE SODIUM 100 MG CAP PO PRN (08:49)
[2018-08-17] MEDS: BENZONATATE 100 MG CAPSULE PO SCH ×3 (08:49→20:33)
[2018-08-17] MEDS: POTASSIUM CHLORIDE 20 MEQ TABCR PO SCH (08:49)
[2018-08-17] MEDS: CLOPIDOGREL BISULFATE 75 MG TAB PO SCH (08:49)
[2018-08-17] MEDS: FUROSEMIDE 80 MG in SYRINGE 0 ML IV SCH ×2 (08:49→17:31)
[2018-08-17] MEDS: ISOSORBIDE MONO EXTENDED REL 30 MG TABCR PO SCH (08:49)
[2018-08-17] MEDS: MAGNESIUM OXIDE 400 MG TAB PO SCH (08:49)
[2018-08-17] MEDS: INSULIN ASPART 100 UNITS/ML 3 ML PEN SC SCH ×4 (08:50→20:41)
[2018-08-17] MEDS: INSULIN GLARGINE SOLOSTAR 100 UNITS/ML 3 ML PEN SC SCH ×2 (08:50→20:35)
[2018-08-17] MEDS: GABAPENTIN 300 MG CAP PO SCH ×3 (08:51→20:34)
--- NOTE | 2018-08-17 15:39 | Hospitalist Progress Note ---
Date of Service August 17, 2018 Assessment & Plan (1) Peripheral edema: Patient with progressively worsening bilateral LE edema with weeping blisters. Skin changes consistent with chronic venous stasis as well. Does not appear to have active cellulitis at this time. She is afebrile, no leukocytosis, legs are cool. Secondary to CHF. 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 Moderate/severe MR. No LVH. However, this was in the setting of septic shock from UTI, intubation, and pressors. Echo on 08/15 showed EF back to 55-60%. - Lasix 80mg IV BID - Monitor Cr -Continue metoprolol & isosorbide - Daily weights, strict I/Os, low Na diet - On 08/17, legs have improved from a swelling standpoint and from a pain standpoint. (3) Atrial fibrillation: Patient in atrial fibrillation 80-90's. Anticoagulated on Eliquis. - Continue digoxin 125mcg po daily - Continue Metoprolol 100mg po BID - Continue Eliquis (4) CAD (coronary artery disease): Patient states she had two heart attacks in March with stent placement. - Continue ASA, Plavix (was not on Med Rec but patient reports taking it), beta- abilio, and statin (5) Diabetes type 2, controlled: Patient with DM on insulin therapy. HgA1C was 7.3% in February. - Lantus to 11u BID - Sliding scale insulin - Continue gabapentin (6) Obstructive sleep apnea: Patient has not used her CPAP for years. - She should have repeat sleep study as outpatient - CPAP qHS (7) Hypertension: Blood pressure well controlled at present. - Continue metoprolol (8) Anemia: Normochromic/normocytic anemia. Hgb on admission was 9.1. She has had variable H/H in the past; this is slightly lower than prior readings. No active bleeding. - Continue to monitor (9) Hypothyroidism: Chronic. No signs/symptoms of hypo-/hyperthyroidism. - Continue home Synthroid 50 mcg PO daily (10) Hyperlipidemia: Chronic. - Continue atorvastatin (11) GERD (gastroesophageal reflux disease): Chronic. Stable. - Continue PPI and H2 abilio (12) Gout: Chronic. No current flare. - Continue allopurinol (13) DVT prophylaxis: On Eliquis for anticoagulation Subjective Less leg pain today. Improved swelling. Review of Systems Review of Systems: All systems reviewed & are unremarkable except as noted in HPI & below Physical Exam Constitutional: WD/WN, vitals as above Eyes: EOM intact bilaterally; no conjunctival abnormality ENMT: external ear and nose normal, oropharynx normal Neck: trachea midline, no thyromegaly normal visual inspection Respiratory: normal respiratory effort, lungs clear to auscultation no respiratory distress Cardiovascular: RRR, no murmur, no edema Gastrointestinal (Abdomen): Inspection/Auscultation: abdomen normal to inspection; abdomen not distended Musculoskeletal: no cyanosis or clubbing, extremities motor strength 5/5 Skin: no rashes, warm and dry + ulcer (Weeping blisters on the right calf) Neurologic: moves all extremities and awake Psychiatric: Orientation: alert, oriented to person and cooperative Results & Data Vital Signs (Past 12 Hours) Vital Signs Temp Pulse Pulse Resp BP Pulse Ox 08/17/18 11:50 36.5 C 92 H 16 111/72 93 08/17/18 10:01 95 08/17/18 09:00 84 08/17/18 07:40 36.5 C 96 H 16 115/72 93 08/17/18 06:37 36.9 C 97 H 19 113/71 92 (1) Diastolic congestive heart failure Heart failure chronicity: acute Qualified Code(s): I50.31 - Acute diastolic (congestive) heart failure (2) Atrial fibrillation Atrial fibrillation type: permanent Qualified Code(s): I48.2 - Chronic atrial fibrillation (3) Diabetes type 2, controlled Diabetes mellitus snf insulin use: with rat exterminator use Diabetes mellitus complication status: without complication Qualified Code(s): E11.9 - Type 2 diabetes mellitus without complications; Z79.4 - halfway (current) use of insulin (4) Hypertension Hypertension type: essential hypertension Qualified Code(s): I10 - Essential (primary) hypertension (5) Anemia Anemia type: unspecified type Qualified Code(s): D64.9 - Anemia, unspecified (6) Hypothyroidism Hypothyroidism type: unspecified Qualified Code(s): E03.9 - Hypothyroidism, unspecified (7) Hyperlipidemia Hyperlipidemia type: unspecified Qualified Code(s): E78.5 - Hyperlipidemia, unspecified (8) GERD (gastroesophageal reflux disease) Esophagitis presence: esophagitis presence not specified Qualified Code(s): K21.9 - Gastro-esophageal reflux disease without esophagitis
[2018-08-17] MEDS: DIGOXIN 0.125 MG TAB PO SCH (16:10)
[2018-08-17] MEDS: ATORVASTATIN 40 MG TAB PO SCH (20:35)
[2018-08-18] MEDS: ACETAMINOPHEN 65 ML IV SCH (02:15)
[2018-08-18] MEDS: LEVOTHYROXINE SODIUM 50 MCG TABLET PO SCH (05:11)
[2018-08-18] MEDS: ISOSORBIDE MONO EXTENDED REL 30 MG TABCR PO SCH (08:21)
[2018-08-18] MEDS: BENZONATATE 100 MG CAPSULE PO SCH (08:21)
[2018-08-18] MEDS: FLUTICASONE PROPIONATE NA SPR 16 GM BTL SCH ×2 (08:21→20:34)
[2018-08-18] MEDS: GABAPENTIN 300 MG CAP PO SCH ×3 (08:21→20:34)
[2018-08-18] MEDS: POTASSIUM CHLORIDE 20 MEQ TABCR PO SCH (08:21)
[2018-08-18] MEDS: MAGNESIUM OXIDE 400 MG TAB PO SCH (08:21)
[2018-08-18] MEDS: FUROSEMIDE 80 MG in SYRINGE 0 ML IV SCH ×2 (08:21→17:21)
[2018-08-18] MEDS: APIXABAN 2.5 MG TAB PO SCH ×2 (08:21→20:34)
[2018-08-18] MEDS: PANTOprazole 40 MG TAB PO SCH (08:21)
[2018-08-18] MEDS: TRAMADOL HCL 50 MG TABLET PO PRN ×2 (08:21→20:49)
[2018-08-18] MEDS: ALLOPURINOL 300 MG TAB PO SCH (08:22)
[2018-08-18] MEDS: CLOPIDOGREL BISULFATE 75 MG TAB PO SCH (08:22)
[2018-08-18] MEDS: INSULIN GLARGINE SOLOSTAR 100 UNITS/ML 3 ML PEN SC SCH ×2 (08:22→20:45)
[2018-08-18] MEDS: INSULIN ASPART 100 UNITS/ML 3 ML PEN SC SCH ×4 (08:22→20:44)
[2018-08-18] MEDS: METOPROLOL SUCC 50MG EXT REL TAB PO SCH ×2 (08:22→20:34)
[2018-08-18 09:44] LABS: BUN Creatinine Ratio 17.9 (10-20); Calcium 8.8 mg/dl (8.5-10.1); Creatinine Clr Calc Pharmacy 32.4 ml/min; Est GFR (African American) 44.6; Est GFR (Non-African American) 38.4
[2018-08-18] MEDS: HYDROCODONE/ACETAMOPHEN 5/325MG TAB PO PRN (10:51)
[2018-08-18] MEDS: POLYETHYLENE (MIRALAX) 17 GM PACK PO SCH (10:51)
--- NOTE | 2018-08-18 13:18 | Hospitalist Progress Note ---
Date of Service August 18, 2018 Assessment & Plan (1) Peripheral edema: Patient with progressively worsening bilateral LE edema with weeping blisters. Skin changes consistent with chronic venous stasis as well. Does not appear to have active cellulitis at this time. She is afebrile, no leukocytosis, legs are cool. Secondary to acute diastolic congestive heart failure. - Continue Lasix 80mg IV BID - Monitor weights and I&Os - Wound care - On 08/18, she has diuresed well. Net negative 6L. Leg swelling improved. 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 Moderate/severe MR. No LVH. However, this was in the setting of septic shock from UTI, intubation, and pressors. Echo on 08/15 showed EF back to 55-60%. Acute diastolic congestive heart failure. - Lasix 80mg IV BID - Monitor Cr - Continue metoprolol & isosorbide - Daily weights, strict I/Os, low Na diet - On 08/18, legs have improved from a swelling standpoint and from a pain standpoint. (3) Atrial fibrillation: Patient in atrial fibrillation 80-90's. Anticoagulated on Eliquis. - Continue digoxin 125mcg PO daily - Continue metoprolol 100mg PO BID - Continue Eliquis (4) CAD (coronary artery disease): Patient states she had two heart attacks in March with stent placement. - Continue ASA, Plavix (was not on Med Rec but patient reports taking it), beta- abilio, and statin (5) Diabetes type 2, controlled: Patient with DM on insulin therapy. HgA1C was 7.3% in February. - Lantus to 11u BID - Sliding scale insulin - Continue gabapentin (6) Obstructive sleep apnea: Patient has not used her CPAP for years. - She should have repeat sleep study as outpatient - CPAP qHS (7) Hypertension: Blood pressure well controlled at present. - Continue metoprolol (8) Anemia: Normochromic/normocytic anemia. Hgb on admission was 9.1. She has had variable H/H in the past; this is slightly lower than prior readings. No active bleeding. - Continue to monitor (9) Hypothyroidism: Chronic. No signs/symptoms of hypo-/hyperthyroidism. - Continue home Synthroid 50 mcg PO daily (10) Hyperlipidemia: Chronic. - Continue atorvastatin (11) GERD (gastroesophageal reflux disease): Chronic. Stable. - Continue PPI and H2 abilio (12) Gout: Chronic. No current flare. - Continue allopurinol (13) DVT prophylaxis: On Eliquis for anticoagulation Subjective Still with leg pain. Seems more significant today than yesterday. More awake. Review of Systems Review of Systems: All systems reviewed & are unremarkable except as noted in HPI & below Physical Exam Constitutional: WD/WN, vitals as above Eyes: EOM intact bilaterally; no conjunctival abnormality ENMT: external ear and nose normal, oropharynx normal Neck: trachea midline, no thyromegaly normal visual inspection Respiratory: normal respiratory effort, lungs clear to auscultation no respiratory distress Cardiovascular: RRR, no murmur, no edema Gastrointestinal (Abdomen): Inspection/Auscultation: abdomen normal to inspection; abdomen not distended Musculoskeletal: no cyanosis or clubbing, extremities motor strength 5/5 Skin: no rashes, warm and dry + ulcer (Weeping blisters on the right calf) Neurologic: moves all extremities and awake Psychiatric: Orientation: alert, oriented to person and cooperative Results & Data Vital Signs (Past 12 Hours) Vital Signs Temp Pulse Pulse Resp BP BP Pulse Ox 08/18/18 11:53 36.7 C 70 20 110/64 91 08/18/18 09:00 83 08/18/18 07:25 36.6 C 88 16 114/65 94 08/18/18 04:00 37.3 C 89 20 130/65 93 (1) Diastolic congestive heart failure Heart failure chronicity: acute Qualified Code(s): I50.31 - Acute diastolic (congestive) heart failure (2) Atrial fibrillation Atrial fibrillation type: permanent Qualified Code(s): I48.2 - Chronic atrial fibrillation (3) Diabetes type 2, controlled Diabetes mellitus manager terminal insulin use: with shelter use Diabetes mellitus complication status: without complication Qualified Code(s): E11.9 - Type 2 diabetes mellitus without complications; Z79.4 - jail (current) use of insulin (4) Hypertension Hypertension type: essential hypertension Qualified Code(s): I10 - Essential (primary) hypertension (5) Anemia Anemia type: unspecified type Qualified Code(s): D64.9 - Anemia, unspecified (6) Hypothyroidism Hypothyroidism type: unspecified Qualified Code(s): E03.9 - Hypothyroidism, unspecified (7) Hyperlipidemia Hyperlipidemia type: unspecified Qualified Code(s): E78.5 - Hyperlipidemia, unspecified (8) GERD (gastroesophageal reflux disease) Esophagitis presence: esophagitis presence not specified Qualified Code(s): K21.9 - Gastro-esophageal reflux disease without esophagitis
[2018-08-18] MEDS: DIGOXIN 0.125 MG TAB PO SCH (15:48)
[2018-08-18] MEDS ORDERED: POTASSIUM CHLORIDE 10 MEQ TABCR PO ONE (19:45)
[2018-08-18] MEDS: ATORVASTATIN 40 MG TAB PO SCH (20:34)
[2018-08-19] MEDS: LEVOTHYROXINE SODIUM 50 MCG TABLET PO SCH (05:38)
[2018-08-19 06:09] LABS: Hematocrit (blood only) 29.5 % (37-47); Hemoglobin 9.2 g/dL (12.0-16.0); Mean Corpuscular Hgb Conc 31.2 g/dL (32-36); Mean Corpuscular Volume 94.6 fL (80-100); Mean Platelet Volume 9.8 fL (7.4-10.4); Platelet Count 233 K/uL (130-400); RDW Standard Deviation 70.7 fL (36.4-46.3); Red Blood Count 3.12 M/uL (4.2-5.4)
[2018-08-19 06:37] LABS: BUN Creatinine Ratio 17.4 (10-20); Calcium 8.6 mg/dl (8.5-10.1); Creatinine Clr Calc Pharmacy 34.5 ml/min; Est GFR (African American) 48.1; Est GFR (Non-African American) 41.5; Potassium 3.3 mmol/L (3.5-5.1)
[2018-08-19] MEDS: INSULIN ASPART 100 UNITS/ML 3 ML PEN SC SCH ×4 (09:08→20:34)
[2018-08-19] MEDS: FUROSEMIDE 80 MG in SYRINGE 0 ML IV SCH ×2 (09:09→16:43)
[2018-08-19] MEDS: FLUTICASONE PROPIONATE NA SPR 16 GM BTL SCH ×2 (09:09→20:32)
[2018-08-19] MEDS: MAGNESIUM OXIDE 400 MG TAB PO SCH (09:10)
[2018-08-19] MEDS: ALLOPURINOL 300 MG TAB PO SCH (09:10)
[2018-08-19] MEDS: APIXABAN 2.5 MG TAB PO SCH ×2 (09:10→20:31)
[2018-08-19] MEDS: ISOSORBIDE MONO EXTENDED REL 30 MG TABCR PO SCH (09:10)
[2018-08-19] MEDS: POTASSIUM CHLORIDE 20 MEQ TABCR PO SCH (09:10)
[2018-08-19] MEDS: CLOPIDOGREL BISULFATE 75 MG TAB PO SCH (09:11)
[2018-08-19] MEDS: METOPROLOL SUCC 50MG EXT REL TAB PO SCH ×2 (09:11→20:35)
[2018-08-19] MEDS: POLYETHYLENE (MIRALAX) 17 GM PACK PO SCH (09:11)
[2018-08-19] MEDS: GABAPENTIN 300 MG CAP PO SCH ×3 (09:11→20:35)
[2018-08-19] MEDS: PANTOprazole 40 MG TAB PO SCH (09:11)
[2018-08-19] MEDS: INSULIN GLARGINE SOLOSTAR 100 UNITS/ML 3 ML PEN SC SCH ×2 (09:12→20:33)
[2018-08-19] MEDS ORDERED: VANCOMYCIN CONSULT ACTIVE PRN (10:27)
[2018-08-19] MEDS: HYDROCODONE/ACETAMOPHEN 5/325MG TAB PO PRN ×2 (10:42→20:44)
[2018-08-19] MEDS ORDERED: POTASSIUM CHLORIDE PWD 20 MEQ PACK PO STA (10:50)
[2018-08-19] MEDS ORDERED: VANCOMYCIN HCL 1,750 MG in SODIUM CHLORIDE 0.9% 500 ML IV STA (10:53)
--- NOTE | 2018-08-19 11:54 | Pharmacy Report ---
Pharmacy Abx Dose Short Note - Date of Service August 19, 2018 - Assessment & Plan Assessment 83 year old F receiving vancomycin for treatment of skin and skin structure infxn. Unsure if wound is purulent at this time. Renal fxn is improved as compared to previous admissions. Current pt population p'kinetics: t1/2=21hrs, ke=0.62535, Vd=0.6. SCr=1.2, eCrCl ~35cc/min. BCx2 and wound cx are obtained and pending. Day # 04/15 of antimicrobial therapy. Plan Vancomycin * Vanco 1750mg (22mg/kg) X1 to quickly achieve a peak of ~36mcg/mL. * Then maintenance dose 1000mg (12.5mg/kg) q24 hours set to start tomorrow at 0800 * goal trough until cultures, NATASHA result will be 15-20mcg/mL * trough ordered for 08/22/18, this will not be reflective of [facility] will continue to follow and will adjust dose/frequency as necessary. Thank you.
[2018-08-19] MEDS: TRAMADOL HCL 50 MG TABLET PO PRN ×2 (12:47→23:39)
[2018-08-19] MEDS: DIGOXIN 0.125 MG TAB PO SCH (16:44)
--- NOTE | 2018-08-19 17:44 | Hospitalist Progress Note ---
Date of Service August 19, 2018 Assessment & Plan (1) Ulcer: Patient presented with several blisters that had "unroofed" with shallow ulcers. Seen by wound care on 08/16 with conservative recs. At that time, no purulence, minimal redness (more chronic in appearance), and no warmth. - On 08/19, re-inspection of the right swanson ulcer showed a large amount of purulence in the wound. - Purulence was sampled and sent for culture - Started vanc IV on 08/19 -> Will adjust abx regimen as able from cultures (2) Peripheral edema: Patient with progressively worsening bilateral LE edema with weeping blisters. Skin changes consistent with chronic venous stasis as well. Does not appear to have active cellulitis at this time. She is afebrile, no leukocytosis, legs are cool. Secondary to acute diastolic congestive heart failure. - Continue Lasix 80mg IV BID - Monitor weights and I&Os - Wound care - On 08/19, she has diuresed well. Net negative 6L total liters. Weight down ~6 kg. Leg swelling improved. Nearly euvolemic. 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 Mo derate/severe MR. No LVH. However, this was in the setting of septic shock from UTI, intubation, and pressors. Echo on 08/15 showed EF back to 55-60%. Acute diastolic congestive heart failure. - Lasix 80mg IV BID - Monitor Cr - Continue metoprolol & isosorbide - Daily weights, strict I/Os, low Na diet - On 08/19, legs have improved from a swelling standpoint and from a pain standpoint. (4) Atrial fibrillation: Patient in atrial fibrillation 80-90's. Anticoagulated on Eliquis. - Continue digoxin 125mcg PO daily - Continue metoprolol 100mg PO BID - Continue Eliquis (5) CAD (coronary artery disease): Patient states she had two heart attacks in March with stent placement. - Continue Plavix (was not on Med Rec but patient reports taking it), beta- abilio, and statin (6) Diabetes type 2, controlled: Patient with DM on insulin therapy. HgA1C was 7.3% in February. - Lantus to 11u BID - Sliding scale insulin - Continue gabapentin (7) Obstructive sleep apnea: Patient has not used her CPAP for years. - She should have repeat sleep study as outpatient - CPAP qHS (8) Hypertension: Blood pressure well controlled at present. - Continue metoprolol (9) Anemia: Normochromic/normocytic anemia. Hgb on admission was 9.1. She has had variable H/H in the past; this is slightly lower than prior readings. No active bleeding. - Continue to monitor (10) Hypothyroidism: Chronic. No signs/symptoms of hypo-/hyperthyroidism. - Continue home Synthroid 50 mcg PO daily (11) GERD (gastroesophageal reflux disease): Chronic. Stable. - Continue PPI and H2 abilio (12) Gout: Chronic. No current flare. - Continue allopurinol (13) DVT prophylaxis: On Eliquis for anticoagulation Subjective More pain in the right leg at the site of the ulcer. Review of Systems Review of Systems: All systems reviewed & are unremarkable except as noted in HPI & below Physical Exam Constitutional: WD/WN, vitals as above Eyes: EOM intact bilaterally; no conjunctival abnormality ENMT: external ear and nose normal, oropharynx normal Neck: trachea midline, no thyromegaly normal visual inspection Respiratory: normal respiratory effort, lungs clear to auscultation no respiratory distress Cardiovascular: RRR, no murmur, no edema Gastrointestinal (Abdomen): Inspection/Auscultation: abdomen normal to inspection; abdomen not distended Musculoskeletal: no cyanosis or clubbing, extremities motor strength 5/5 Skin: no rashes, warm and dry + ulcer (Right swanson lesion now with significant purulence) Neurologic: moves all extremities and awake Psychiatric: Orientation: alert, oriented to person and cooperative Results & Data Vital Signs (Past 12 Hours) Vital Signs Temp Pulse Pulse Pulse Resp BP BP 08/19/18 16:44 83 08/19/18 15:55 88 08/19/18 15:17 36.5 C 82 18 106/73 08/19/18 11:32 36.7 C 91 H 20 100/61 08/19/18 09:07 89 111/70 08/19/18 07:48 37.0 C 89 20 124/65 Pulse Ox 08/19/18 16:44 08/19/18 15:55 08/19/18 15:17 94 08/19/18 11:32 91 08/19/18 09:07 08/19/18 07:48 93 (1) Diastolic congestive heart failure Heart failure chronicity: acute Qualified Code(s): I50.31 - Acute diastolic (congestive) heart failure (2) Anemia Anemia type: unspecified type Qualified Code(s): D64.9 - Anemia, unspecified (3) Atrial fibrillation Atrial fibrillation type: permanent Qualified Code(s): I48.2 - Chronic atrial fibrillation (4) Hypothyroidism Hypothyroidism type: unspecified Qualified Code(s): E03.9 - Hypothyroidism, unspecified (5) Diabetes type 2, controlled Diabetes mellitus complication status: without complication Diabetes mellitus dedicated intermodal truck driver insulin use: with residential use Qualified Code(s): E11.9 - Type 2 diabetes mellitus without complications; Z79.4 - extermination inspector (current) use of insulin (6) GERD (gastroesophageal reflux disease) Esophagitis presence: esophagitis presence not specified Qualified Code(s): K21.9 - Gastro-esophageal reflux disease without esophagitis (7) Hypertension Hypertension type: essential hypertension Qualified Code(s): I10 - Essential (primary) hypertension
[2018-08-19] MEDS: ATORVASTATIN 40 MG TAB PO SCH (20:36)
[2018-08-20] MEDS: LEVOTHYROXINE SODIUM 50 MCG TABLET PO SCH (05:33)
[2018-08-20 07:02] LABS: BUN Creatinine Ratio 15.9 (10-20); Calcium 8.7 mg/dl (8.5-10.1); Creatinine Clr Calc Pharmacy 27.8 ml/min; Est GFR (African American) 38.7; Est GFR (Non-African American) 33.4; Magnesium 1.8 mg/dl (1.8-2.4); Phosphorus 3.8 mg/dl (2.5-4.9); Potassium 3.5 mmol/L (3.5-5.1)
[2018-08-20] MEDS: APIXABAN 2.5 MG TAB PO SCH ×2 (08:28→20:33)
[2018-08-20] MEDS: POTASSIUM CHLORIDE 20 MEQ TABCR PO SCH (08:28)
[2018-08-20] MEDS: ISOSORBIDE MONO EXTENDED REL 30 MG TABCR PO SCH (08:28)
[2018-08-20] MEDS: FLUTICASONE PROPIONATE NA SPR 16 GM BTL SCH ×2 (08:28→20:32)
[2018-08-20] MEDS: VANCOMYCIN HCL 1,000 MG in SODIUM CHLORIDE 0.9% 250 ML IV SCH (08:28)
[2018-08-20] MEDS: ALLOPURINOL 300 MG TAB PO SCH (08:29)
[2018-08-20] MEDS: GABAPENTIN 300 MG CAP PO SCH ×3 (08:29→20:32)
[2018-08-20] MEDS: INSULIN GLARGINE SOLOSTAR 100 UNITS/ML 3 ML PEN SC SCH ×2 (08:29→20:31)
[2018-08-20] MEDS: POLYETHYLENE (MIRALAX) 17 GM PACK PO SCH (08:29)
[2018-08-20] MEDS: METOPROLOL SUCC 50MG EXT REL TAB PO SCH ×2 (08:29→20:33)
[2018-08-20] MEDS: CLOPIDOGREL BISULFATE 75 MG TAB PO SCH (08:29)
[2018-08-20] MEDS: MAGNESIUM OXIDE 400 MG TAB PO SCH (08:29)
[2018-08-20] MEDS: FUROSEMIDE 80 MG in SYRINGE 0 ML IV SCH ×2 (08:29→16:43)
[2018-08-20] MEDS: PANTOprazole 40 MG TAB PO SCH (08:29)
[2018-08-20] MEDS: INSULIN ASPART 100 UNITS/ML 3 ML PEN SC SCH ×4 (08:29→20:30)
[2018-08-20] MEDS: HYDROCODONE/ACETAMOPHEN 5/325MG TAB PO PRN ×2 (13:07→20:42)
[2018-08-20] MEDS: TRAMADOL HCL 50 MG TABLET PO PRN (16:41)
[2018-08-20] MEDS: DIGOXIN 0.125 MG TAB PO SCH (16:42)
[2018-08-20] MEDS: DOCUSATE SODIUM 100 MG CAP PO PRN (16:50)
--- NOTE | 2018-08-20 17:32 | Hospitalist Progress Note ---
Date of Service August 20, 2018 Assessment & Plan (1) Ulcer: Patient presented with several blisters that had "unroofed" with shallow ulcers. Seen by wound care on 08/16 with conservative recs. At that time, no purulence, minimal redness (more chronic in appearance), and no warmth. - On 08/19, re-inspection of the right swanson ulcer showed a large amount of purulence in the wound. - Purulence was sampled and sent for culture - Started vanc IV on 08/19 -> Will adjust abx regimen as able from cultures - Culture growing Staph, but no specificities yet. Once back, can probably discharge on 7-day course of oral abx. - Will need Wound Culture follow up. (2) Peripheral edema: Patient with progressively worsening bilateral LE edema with weeping blisters. Skin changes consistent with chronic venous stasis as well. Does not appear to have active cellulitis at this time. She is afebrile, no leukocytosis, legs are cool. Secondary to acute diastolic congestive heart failure. - Continue Lasix 80mg IV BID - Monitor weights and I&Os - Wound care - On 08/20, she has diuresed well. Net negative 6L total liters. Weight down ~6 kg. Leg swelling improved. Nearly euvolemic. Should probably go back down to 80mg PO BID or even 120mg PO BID on discharge. 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 Moderate/severe MR. No LVH. However, this was in the setting of septic shock from UTI, intubation, and pressors. Echo on 08/15 showed EF back to 55-60%. Acute diastolic congestive heart failure. - Lasix 80mg IV BID - Monitor Cr - Continue metoprolol & isosorbide - Daily weights, strict I/Os, low Na diet - On 08/20, legs have improved from a swelling standpoint and from a pain standpoint. (4) Atrial fibrillation: Patient in atrial fibrillation 80-90's. Anticoagulated on Eliquis. - Continue digoxin 125mcg PO daily - Continue metoprolol 100mg PO BID - Continue Eliquis (5) CAD (coronary artery disease): Patient states she had two heart attacks in March with stent placement. - Continue Plavix (was not on Med Rec but patient reports taking it), beta- abilio, and statin (6) Diabetes type 2, controlled: Patient with DM on insulin therapy. HgA1C was 7.3% in February. - Lantus to 11u BID - Sliding scale insulin - Continue gabapentin - Increased dose to 300mg PO TID by 08/20 due to continued neuropathic pain in the legs from the swelling. Doing well with it. (7) Obstructive sleep apnea: Patient has not used her CPAP for years. - She should have repeat sleep study as outpatient - CPAP qHS (8) Hypertension: Blood pressure well controlled at present. - Continue metoprolol (9) Anemia: Normochromic/normocytic anemia. Hgb on admission was 9.1. She has had variable H/H in the past; this is slightly lower than prior readings. No active bleeding. - Continue to monitor (10) Hypothyroidism: Chronic. No signs/symptoms of hypo-/hyperthyroidism. - Continue home Synthroid 50 mcg PO daily (11) GERD (gastroesophageal reflux disease): Chronic. Stable. - Continue PPI and H2 abilio (12) Gout: Chronic. No current flare. - Continue allopurinol (13) DVT prophylaxis: On Eliquis for anticoagulation Subjective No leg pain today. Review of Systems Review of Systems: All systems reviewed & are unremarkable except as noted in HPI & below Physical Exam Constitutional: WD/WN, vitals as above Eyes: EOM intact bilaterally; no conjunctival abnormality ENMT: external ear and nose normal, oropharynx normal Neck: trachea midline, no thyromegaly normal visual inspection Respiratory: normal respiratory effort, lungs clear to auscultation no respiratory distress Cardiovascular: RRR, no murmur, no edema Gastrointestinal (Abdomen): Inspection/Auscultation: abdomen normal to inspection; abdomen not distended Musculoskeletal: no cyanosis or clubbing, extremities motor strength 5/5 Skin: no rashes, warm and dry + ulcer (Right swanson lesion now with less purulence) Neurologic: moves all extremities and awake Psychiatric: Orientation: alert, oriented to person and cooperative Results & Data Vital Signs (Past 12 Hours) Vital Signs Temp Pulse Pulse Resp BP BP Pulse Ox 08/20/18 16:42 76 08/20/18 14:51 36.7 C 76 20 128/66 95 08/20/18 11:59 36.4 C L 20 114/75 93 08/20/18 09:00 76 08/20/18 07:30 36.4 C L 81 17 119/74 93 (1) Diastolic congestive heart failure Heart failure chronicity: acute Qualified Code(s): I50.31 - Acute diastolic (congestive) heart failure (2) Atrial fibrillation Atrial fibrillation type: permanent Qualified Code(s): I48.2 - Chronic atrial fibrillation (3) Diabetes type 2, controlled Diabetes mellitus halfway insulin use: with termite inspector use Diabetes mellitus complication status: without complication Qualified Code(s): E11.9 - Type 2 lázaro betes mellitus without complications; Z79.4 - remote computer terminal operator (current) use of insulin (4) Hypertension Hypertension type: essential hypertension Qualified Code(s): I10 - Essential (primary) hypertension (5) Anemia Anemia type: unspecified type Qualified Code(s): D64.9 - Anemia, unspecified (6) Hypothyroidism Hypothyroidism type: unspecified Qualified Code(s): E03.9 - Hypothyroidism, unspecified (7) GERD (gastroesophageal reflux disease) Esophagitis presence: esophagitis presence not specified Qualified Code(s): K21.9 - Gastro-esophageal reflux disease without esophagitis
[2018-08-20] MEDS: ATORVASTATIN 40 MG TAB PO SCH (20:32)
[2018-08-20] MEDS ORDERED: MoRPHine SULFATE 2 MG/ML CARP IV STA (22:22)
[2018-08-21] MEDS: HYDROCODONE/ACETAMOPHEN 5/325MG TAB PO PRN (03:10)
[2018-08-21] MEDS: LEVOTHYROXINE SODIUM 50 MCG TABLET PO SCH (05:35)
[2018-08-21 06:08] LABS: Hematocrit (blood only) 30.9 % (37-47); Hemoglobin 9.6 g/dL (12.0-16.0); Mean Corpuscular Hgb Conc 31.1 g/dL (32-36); Mean Corpuscular Volume 94.8 fL (80-100); Mean Platelet Volume 9.3 fL (7.4-10.4); Platelet Count 226 K/uL (130-400); RDW Coefficient of Variation 20.4 % (11.5-14.5); RDW Standard Deviation 69.9 fL (36.4-46.3); Red Blood Count 3.26 M/uL (4.2-5.4); White Blood Count 4.83 K/uL (4.8-10.8)
[2018-08-21 06:43] LABS: BUN Creatinine Ratio 17.3 (10-20); Calcium 8.7 mg/dl (8.5-10.1); Creatinine Clr Calc Pharmacy 28.8 ml/min; Est GFR (Non-African American) 34.6; Potassium 3.1 mmol/L (3.5-5.1)
[2018-08-21] MEDS: ISOSORBIDE MONO EXTENDED REL 30 MG TABCR PO SCH (08:28)
[2018-08-21] MEDS: FUROSEMIDE 80 MG in SYRINGE 0 ML IV SCH (08:28)
[2018-08-21] MEDS: FLUTICASONE PROPIONATE NA SPR 16 GM BTL SCH (08:28)
[2018-08-21] MEDS: APIXABAN 2.5 MG TAB PO SCH (08:28)
[2018-08-21] MEDS: VANCOMYCIN HCL 1,000 MG in SODIUM CHLORIDE 0.9% 250 ML IV SCH (08:28)
[2018-08-21] MEDS: MAGNESIUM OXIDE 400 MG TAB PO SCH (08:29)
[2018-08-21] MEDS: ALLOPURINOL 300 MG TAB PO SCH (08:29)
[2018-08-21] MEDS: INSULIN ASPART 100 UNITS/ML 3 ML PEN SC SCH (08:29)
[2018-08-21] MEDS: METOPROLOL SUCC 50MG EXT REL TAB PO SCH (08:29)
[2018-08-21] MEDS: PANTOprazole 40 MG TAB PO SCH (08:29)
[2018-08-21] MEDS: POLYETHYLENE (MIRALAX) 17 GM PACK PO SCH (08:29)
[2018-08-21] MEDS: GABAPENTIN 300 MG CAP PO SCH (08:29)
[2018-08-21] MEDS: CLOPIDOGREL BISULFATE 75 MG TAB PO SCH (08:29)
[2018-08-21] MEDS: INSULIN GLARGINE SOLOSTAR 100 UNITS/ML 3 ML PEN SC SCH (08:29)
[2018-08-21] MEDS ORDERED: POTASSIUM CHLORIDE 20 MEQ TABCR PO SCH (09:00)
--- NOTE | 2018-08-21 13:29 | Discharge Summary ---
Date of Service August 21, 2018 Admission HPI Per Admitting Provider Mrs. Porter is a pleasant 83yo female with multiple medical comorbidities to include diastolic CHF, AF on Eliquis, DM, HTN, HLP, CKD, COPD presenting with worsening LE edema. Symptoms began on 07/08/18 and have been progressively worsening. She has worsening edema, pain and weeping blisters. She reports gaining approximately 13 pounds since March but she has been at a stable weight of appx 188#. She has been taking Tylenol at home for the pain but is still in considerable discomfort. She denies fevers, chills, SOB, orthopnea. She denies CP/palpitations. Patient had a prolonged and complicated hospital stay in [facility] in March 2018. She states that she had two heart attacks, had a stent placed and was intubated in the MICU. Will try to obtain records. ER Course: Lasix 40mg IV, Morphine Admission Exam Per Admitting Provider General: patient resting comfortably, in pain from LE blisters, non-toxic in appearance, AA&O x 4 Skin: warm, dry, multiple bruises on her back and forearms, LEs see below HEENT: NC/AT, PERRL, EOMI, anicteric sclera, conjunctiva without injection, external ear normal to inspection and nontender, nares patent, moist mucus membranes, dentition intact, no oropharyngeal lesions, neck supple, trachea midline, no LAD, no thyromegaly, no JVD Heart: +S1/S2, irregularly irregular, no m/r/g Lungs: equal air entry bilaterally, no rales/rhonchi/wheezes Abd: +BS, soft, NT/ND, no masses/organomegaly/ascites Ext: warm, 2+ pulses in UE/LE bilaterally, no clubbing/cyanosis, 3+ pitting edema of bilateral LEs. Skin cool to touch, red, thickened multiple blisters, weeping serosanguinous fluid soaking the sheets, RLE with some drainage, no foul smell Neuro: nonfocal, patient AA&O x 4, speech intact, no facial droop, moving all extremities on command with equal strength 5/5 Principal Diagnosis MRSA wound of lower extremity with cellulitis Discharge Exam Constitutional WD/WN, vitals as above Eyes PERRL, conjunctivae normal, anicteric sclerae ENMT external ear and nose normal, oropharynx normal Neck trachea midline, no thyromegaly Respiratory normal respiratory effort, lungs clear to auscultation Cardiovascular Rate/Rhythm: regular rate; + abnormal rhythm (irregular irregular) Heart Sounds: normal S1 and normal S2; no murmur Vessels: no JVD Extremities: + edema (trace bilaterally) Gastrointestinal (Abdomen) normal bowel sounds, soft, nontender, no hepatosplenomegaly Musculoskeletal no cyanosis or clubbing, extremities motor strength 5/5 Skin + ulcer (a few ulcers, dry, various stages of healing in lower legs) and + dry skin; no rashes and no erythema Neurologic patellar DTR's 2+ bilat, sensation intact and PERRL, EOMI, accommodation nl, no face palsy, no dysarthria Psychiatric A+Ox3, euthymic affect Lymphatic no cervical or axillary lymphadenopathy Discharge Data Allergies Allergy/AdvReac Type Severity Reaction Status Date / Time shellfish derived Allergy Severe ANAPHYLAXIS Verified 08/27/18 13:44 iodine Allergy Intermediate ANAPHYLAXIS Verified 08/27/18 13:44 paroxetine AdvReac Unknown GI UPSET Verified 08/27/18 13:44 Consultations 08/14/18 22:23 ED Decision to Admit Stat 08/15/18 01:12 Consult Case Management - Discharge Planning Routine Hospital Course (1) Ulcer: Patient presented with several blisters that had "unroofed" with shallow ulcers. Seen by wound care on 08/16 with conservative recs. At that time, no purulence, minimal redness (more chronic in appearance), and no warmth. - On 08/19, re-inspection of the right swanson ulcer showed a large amount of purulence in the wound. - Purulence was sampled and sent for culture - Started vanc IV on 08/19 -> wound culture grew MRSA, sensitive to the Vanco, also sensitive to Doxycycline d/d home on 7 day course of Doxycycline, may need longer, will follow up with the wound clinic on 08/27 (2) Peripheral edema: Patient with progressively worsening bilateral LE edema with weeping blisters. Skin changes consistent with chronic venous stasis as well. Does not appear to have active cellulitis at this time. She is afebrile, no leukocytosis, legs are cool. Secondary to acute diastolic congestive heart failure. - treated with Lasix 80mg IV BID (home dose is 80mg PO BID) - Monitor weights and I&Os - Wound care - On 08/20, she has diuresed well. Net negative 6L total liters. Weight down ~6 kg. Leg swelling improved. Nearly euvolemic see below (3) Diastolic congestive heart failure: Outside records from [facility] indicate diagnosis of TTE done in 03/2018 with diagnosis of Takostubo's cardiomyopathy with EF 20-25%. Moderate/severe MR. No LVH. However, this was in the setting of septic shock fr om UTI, intubation, and pressors. Echo on 08/15 showed EF back to 55-60%. Acute on chronic diastolic congestive heart failure. - treated with Lasix 80mg IV BID - Cr remained stable on the increased dose of diuretic - Continue metoprolol & isosorbide - Daily weights, strict I/Os, low Na diet CHF instructions provided will increase Lasix to 120mg in the morning and 80mg in the afternoon close follow up with the heart failure clinic (4) Atrial fibrillation: Patient in atrial fibrillation 80-90's. Anticoagulated on Eliquis. - Continue digoxin 125mcg PO daily - Continue metoprolol 100mg PO BID - Continue Eliquis (5) CAD (coronary artery disease): Patient states she had two heart attacks in March with stent placement. - Continue Plavix (was not on Med Rec but patient reports taking it), beta- abilio, and statin (6) Diabetes type 2, controlled: Patient with DM on insulin therapy. HgA1C was 7.3% in February. - Lantus to 11u BID - Sliding scale insulin - Continue gabapentin - Increased dose to 300mg PO TID by 08/20 due to continued neuropathic pain in the legs from the swelling. Doing well with it. (7) Obstructive sleep apnea: Patient has not used her CPAP for years. - She should have repeat sleep study as outpatient - CPAP qHS (8) Hypertension: Blood pressure well controlled at present. - Continue metoprolol (9) Anemia: Normochromic/normocytic anemia. Hgb on admission was 9.1. She has had variable H/H in the past; this is slightly lower than prior readings. No active bleeding. - Continue to monitor (10) Hypothyroidism: Chronic. No signs/symptoms of hypo-/hyperthyroidism. - Continue home Synthroid 50 mcg PO daily (11) GERD (gastroesophageal reflux disease): Chronic. Stable. - Continue PPI and H2 abilio (12) Gout: Chronic. No current flare. - Continue allopurinol (13) DVT prophylaxis: On Eliquis for anticoagulation Total Time Total Time Spent Total Time Spent (In Minutes): 40 minutes Total Time Includes: Examination of the Patient, Discharge Planning and Medication Reconciliation Discharge Plan Discharge Items Patient Disposition: Home - Home Health Services Reason For Visit: LE EDEMA, BLISTERS Discharge Diagnosis: MRSA wound, cellulitis Acute on chronic diastolic heart failure Condition: Good Discharge Goals: Improve disease control and Improve function Activity: Resume your previous activity Non-emergency contact: Primary Care Provider Call non-emergency contact if: you have any medication questions, your symptoms worsen, your pain is not controlled and you have a fever Follow-up/Referrals: [facility] [Provider Group] - 08/27/18 1:30 pm (Please, follow up at [facility] on ThursdayAugust 27 at 1:30 pm. The clinic is located at [address] in [place]. If you have any questions, call the clinic at [phone].) Phillip Montana MD [Primary Care Provider] - 08/23/18 1:00 pm (Please, follow up at Dr. Montana's office with his hospital aides and assistants teacher, Daysi Shea PA-C, on ThursdayAugust 23 at 1:00 pm. *The office is located in [address] of [facility]. This is the big building located next to [facility]. If you need to change this appointment, call the office at [phone].) Madelaine Rothman PA-C [Physician Scrub Technician] - 08/27/18 12:00 pm (Please, follow up at [facility] / CHF Clinic with Idalmis Rothman PA-C on ThursdayJune 27 at 12:00 pm. *The office is located in [address] of [facility]. This is the big building next to this [facility]. *If you need to change this appointment, call the office at [phone].) Diet: Carb Consistent or DM2 and Heart Healthy Fluids: 2000ml (8 cups) Addtl Provider Instructions: Medications: see below for specific changes, these include dose changes and new medications - DOXYCYCLINE: 100mg twice a day for 7 more days, start tomorrow morning - ULTRAM: use as needed for pain, twice a day - GABAPENTIN: dose increased to 300mg three times a day - DOCUSATE and MIRALAX: use these as needed for constipation, over the counter, take the Miralax daily, Colace twice a day, can stop Miralax once you have a BM - LASIX: dose change, now you should take 120mg (3 tabs) in the morning and 80mg (2 tabs) in the afternoon - POTASSIUM: dose change, now you should take 2 tabs in the morning and 1 tab in the afternoon Lower extremity ulcers, wounds, MRSA positive treated with Vancomycin IV while admitted infection well controlled will use Doxycycline since the MRSA is positive to this on sensitivity testing take the Doxy for 7 more days follow up with wound clinic on 08/27, home nursing arranged for your legs Acute on chronic diastolic heart failure 6 pounds removed on Lasix IV will increase home dose to 120mg in the morning, continue 80mg in the afternoon you need to follow a fluid restriction of 2 liters a day need to weigh yourself DAILY and if weight goes up by 2-3 lbs then call the heart failure clinic you have a follow up with Beba Rothman with the heart failure clinic on 08/27 FOLLOW UP - PCP on 08/23 - wound clinic on 08/27 - heart failure clinic on 08/27 Call 911 and go to the Emergency Room if: * You have tightness or pain in your chest that does not go away with rest or Nitroglycerin * You are very short of breath even with rest Call your doctor if any of the following symptoms or problems start or get worse: * Shortness of breath or difficulty breathing * Wake up at night short of breath * Chest pain * Cough * Swelling of your hands, fee, or legs * More fatigued or tired with your normal activity * Palpitations - sudden fast heart beats WEIGHT * Weigh yourself every morning after using the bathroom. * Use the same scale. * Wear the same amount of clothing. * Write your weight down on your chart. * Call your doctor if you gain more than 2-3 pounds in 1-2 days. MEDICATIONS * Use this discharge instruction sheet for instructions. * Take your medications at the time your doctor ordered. * Do not skip a dose of your medicines. * If you miss a dose of medicine, take as soon as possible, but DO NOT DOUBLE A DOSE. * Read your medicine information when you get home. * Know all of the side effects of your medicine. * Call your doctor's office if you have any side effects. * Be sure all of your doctors know what medicine and herbs you take (including cold, flu, and herbal medicine). * Pain Medicine: If you do not get relief from your pain, please call your doctor for help. Take the following with you to your follow-up doctor appointments: * Weight Chart * Medication List * List of questions Do not drink excessive alcohol, beer or wine. Prescriptions: New docusate sodium 100 mg Capsule 100 mg PO BID PRN (Reason: constipation) 30 Days Qty: 60 RF: 0 clopidogrel 75 mg Tablet 75 mg PO QAM 30 Days Qty: 30 RF: 0 tramadol 50 mg Tablet 50 mg PO Q12H PRN (Reason: pain) 14 Days Qty: 28 RF: 0 gabapentin 300 mg Capsule 300 mg PO TID 30 Days Qty: 90 RF: 1 Continued atorvastatin 80 mg tablet 80 mg PO HS RF: 0 isosorbide mononitrate 30 mg tablet extended release 24 hr 30 mg PO QAM RF: 0 acetaminophen [Tylenol Arthritis Pain] 650 mg Tablet Extended Release 2 tabs PO UD PRN (Reason: Pain) RF: 0 benzonatate 100 mg capsule 100 mg PO TID RF: 0 levothyroxine 50 mcg tablet 50 mcg PO QAM RF: 0 pantoprazole 40 mg tablet,delayed release (DR/EC) 40 mg PO QAM RF: 0 digoxin 125 mcg tablet 125 mg PO QAM RF: 0 fluticasone propionate 50 mcg/actuation spray,suspension 1 spray intranasal BID RF: 0 Novolog Flexpen U-100 Insulin 100 unit/mL (3 mL) insulin pen 2 units subcut TIDM RF: 0 Lantus Solostar U-100 Insulin 100 unit/mL (3 mL) insulin pen 22 units subcut HS RF: 0 allopurinol 300 mg Tablet 300 mg PO QAM RF: 0 Eliquis 2.5 mg Tablet 5 mg PO BID RF: 0 cholecalciferol (vitamin D3) [Vitamin D3] 1,000 unit Tablet 1,000 unit PO QAM RF: 0 ranitidine HCl 150 mg Tablet 150 mg PO HS RF: 0 PreserVision AREDS-2 [id number] Capsule 1 tab PO BID RF: 0 magnesium oxide 400 mg Capsule 400 mg PO QAM RF: 0 metoprolol succinate 100 mg Tablet Extended Release 24 Hr 100 mg PO BID RF: 0 cyanocobalamin (vitamin B-12) [Vitamin B-12] 1,000 mcg Tablet 1,000 mcg PO QAM RF: 0 diclofenac sodium [Voltaren] 1 % Gel 2 g TOPICAL BID PRN (Reason: Pain) RF: 0 Changed furosemide 40 mg Tablet 80 mg PO UD Qty: 150 RF: 1 potassium chloride [Klor-Con M20] 20 mEq tablet,ER particles/crystals 20 meq PO UD Qty: 90 RF: 1 Discontinued gabapentin 300 mg capsule 300 mg PO UD RF: 0 gabapentin 400 mg Capsule 400 mg PO UD RF: 0 Stand-Alone Forms: [facility] Discharge Orders: Discharge Order (Routine); Ordered 08/21/18 Ordered By: Jhoan Vargas Admission Data Admit Date/Time: 08/14/18 23:30 Attending Provider: Jhoan Vargas Admit Provider: Ashly Daly Primary Care Provider: Phillip Montana Service: Telemetry Medical Other DC Date/Time DO NOT enter until pt leaves facility: 08/21/18 11:48
[2018-08-22] MEDS ORDERED: VANCOMYCIN TROUGH ONE (07:30)
== END 2018-08-21 11:48 | disposition home health service (06) | DRG 291 ==
LOC: 2N 20:24 → ED 20:24 → SUATTDRO 23:30 → OBSVTOIN 08-15 00:22 → 2N 08-15 00:55
DX: L03.115 Cellulitis of right lower limb; Z88.8 Allergy status to other drugs, medicaments and biological substances; G47.33 Obstructive sleep apnea (adult) (pediatric); I25.10 Atherosclerotic heart disease of native coronary artery without angina pectoris; I48.91 Unspecified atrial fibrillation; K21.9 Gastro-esophageal reflux disease without esophagitis; E66.9 Obesity, unspecified; E78.5 Hyperlipidemia, unspecified; B95.62 Methicillin resistant Staphylococcus aureus infection as the cause of diseases classified elsewhere; I50.33 Acute on chronic diastolic (congestive) heart failure; D63.1 Anemia in chronic kidney disease; Z51.81 Encounter for therapeutic drug level monitoring; N18.3 Chronic kidney disease, stage 3 (moderate); Z79.02 Long term (current) use of antithrombotics/antiplatelets; I87.8 Other specified disorders of veins; J44.9 Chronic obstructive pulmonary disease, unspecified; L97.919 Non-pressure chronic ulcer of unspecified part of right lower leg with unspecified severity; E03.9 Hypothyroidism, unspecified; Z79.899 Other long term (current) drug therapy; Z79.01 Long term (current) use of anticoagulants; E11.22 Type 2 diabetes mellitus with diabetic chronic kidney disease; M10.9 Gout, unspecified; Z91.81 History of falling; Z68.33 Body mass index [BMI] 33.0-33.9, adult; I13.0 Hypertensive heart and chronic kidney disease with heart failure and stage 1 through stage 4 chronic kidney disease, or unspecified chronic kidney disease; Z79.4 Long term (current) use of insulin; Z91.013 Allergy to seafood

== ENCOUNTER 2018-12-06 17:15 | Inpatient (IN) ==
[2018-12-06] MEDS ORDERED: METOPROLOL TARTRATE 1 MG/ML VIAL IV STA (17:32)
[2018-12-06] MEDS ORDERED: fentaNYL citrate 100 MCG/2 ML VIAL IV STA (17:38)
[2018-12-06] MEDS: NITROGLYCERIN SL 0.4 MG/TAB TAB SL PRN ×4 (17:42→21:28)
[2018-12-06 17:55] LABS: Basophils # (auto) 0.01 K/uL (0-0.2); Basophils % (auto) 0.2 %; Eosinophils # (auto) 0.16 K/uL (0-0.5); Eosinophils % (auto) 2.7 %; Hematocrit (blood only) 31.8 % (37-47); Immature Granulocytes # (auto) 0.05 K/uL (0.00-0.02); Immature Granulocytes % (auto) 0.8 %; Lymphocytes # (auto) 0.83 K/uL (1.2-3.4); Lymphocytes % (auto) 13.9 %; Mean Corpuscular Hgb Conc 31.4 g/dL (32-36); Mean Corpuscular Volume 97.5 fL (80-100); Mean Platelet Volume 10.6 fL (7.4-10.4); Monocytes # (auto) 0.37 K/uL (0.11-0.59); Monocytes % (auto) 6.2 %; Neutrophils # (auto) 4.55 K/uL (1.4-6.5); Neutrophils % (auto) 76.2 %; Platelet Count 203 K/uL (130-400); RDW Standard Deviation 55.7 fL (36.4-46.3); Red Blood Count 3.26 M/uL (4.2-5.4); White Blood Count 5.97 K/uL (4.8-10.8)
--- NOTE | 2018-12-06 18:05 | XRay Report ---
XR chest 1V portable CLINICAL HISTORY: 83 years-old Female presenting with Chest Pain. TECHNIQUE: Portable upright AP view of the chest was obtained. COMPARISON: 08/14/2018. FINDINGS: Atherosclerosis of the aortic arch. Cardiac silhouette enlarged. No focal opacity. No large effusion or pneumothorax. Degenerative changes of the thoracic spine. Upper abdomen normal. IMPRESSION: 1. Cardiomegaly. No other convincing evidence of acute cardiopulmonary disease. Electronically signed by: Surjit John M.D. 12/06/2018 6:04 PM
[2018-12-06 18:08] LABS: Partial Thromboplastin Ratio 0.9; Partial Thromboplastin Time 23.7 Seconds (21.0-31.0); Prothrombin Time 10.3 Seconds (9.0-12.0)
[2018-12-06 18:11] LABS: Alanine Aminotransferase 16 U/L (12-78); Albumin Level 3.5 gm/dl (3.4-5.0); Aspartate Aminotransferase 14 U/L (15-37); BUN Creatinine Ratio 12.9 (10-20); Blood Urea Nitrogen 24 mg/dl (7-18); Calcium 9.4 mg/dl (8.5-10.1); Carbon Dioxide 32 mmol/L (21-32); Chloride 96 mmol/L (98-107); Est GFR (African American) 28.7; Est GFR (Non-African American) 24.8; Glucose 271 mg/dl (70-99); Potassium 3.9 mmol/L (3.5-5.1); Sodium 139 mmol/L (136-145)
[2018-12-06 18:27] LABS: Albumin Globulin Ratio 0.9 (0.9-2); Alkaline Phosphatase 103 U/L (45-117); Globulin 3.8 gm/dl (2.5-4.0); Total Protein 7.3 gm/dl (6.4-8.2); Troponin I 0.069 ng/ml (0-0.045)
[2018-12-06] MEDS ORDERED: MoRPHine SULFATE 2 MG/ML CARP ONE (19:49)
--- NOTE | 2018-12-06 20:26 | History & Physical Report ---
Date of Service December 06, 2018 Assessment & Plan (1) Atrial fibrillation, rapid: Initially heart rate was 115, after 5 mg of metoprolol IV, heart rate is between 80 and 90 We will order patient regular medications at home, including Toprol-XL 50 mg twice daily, patient will take a dose tonight. Cardizem in a.m. (2) Chest pain: (3) Elevated troponin: (4) Non-STEMI (non-ST elevated myocardial infarction): Appears to be ischemic in nature, improved with sublingual nitro and morphine. Continue above-mentioned treatment. Continue apixaban and Plavix. Patient also took 1 baby aspirin. Control of atrial fibrillation heart rate. Rn Unit Manager consult. Nitropaste. If no improvement in chest pain will start patient on nitroglycerin drip (5) Acute kidney injury superimposed on chronic kidney disease: Hold Lasix Start patient on gentle IV fluid hydration 50 cc/h normal saline. Patient received 1 bolus of 250 cc in ED Creatinine baseline is 1.3-1.4, creatinine admission more than 1.8 (6) Chronic kidney disease, stage III (moderate): Will start patient on Mucomyst for possible anticipated cardiac cath (7) Diabetes 1.5, managed as type 2: Continue sliding-scale insulin Decrease Lantus from 20 units to only 10 units as patient will be n.p.o. from midnight (8) Essential hypertension: Continue Toprol-XL and Cardizem Currently controlled History of Present Illness 83-year-old female with past medical history of chronic atrial fibrillation on apixaban, chronic kidney disease stage III, chronic anemia, diabetes mellitus on insulin, COPD, GERD, essential hypertension, diastolic congestive heart failure/chronic, dyslipidemia, hypothyroidism and recent admission to a hospital in [place] status post PCI and stenting of unknown coronary, patient said main coronary. She had patient is on apixaban for atrial fibrillation and Plavix for her coronary stents. Today she was in her regular state of health when she developed acute onset substernal chest pain when she woke up at 7 AM, squeezing in nature described as heaviness, referred to left side of the chest and right arm with right hand numbness, pain was intermittent kept subsiding and coming back, especially every time she tries to go to urinate. Finally her convinced her to come to the hospital chest pain partially resolved with sublingual nitro. And then significantly improved with morphine. ED physician noted mild tachycardia in the range of 115, she was giving metoprolol 5 mg IV which helped with chest pain. Her chest x-ray was clear, oxygen saturation was 98% on room air. EKG showed nonspecific ST-T wave changes/A. fib. Her troponin was 0.06, patient will be admitted for further evaluation and management. Primary Care Provider: Phillip Montana MD Allergies Allergy/AdvReac Type Severity Reaction Status Date / Time shellfish derived Allergy Severe ANAPHYLAXIS Verified 11/22/18 16:14 iodine Allergy Intermediate ANAPHYLAXIS Verified 11/22/18 16:14 lisinopril Allergy Verified 11/22/18 16:14 oxybutynin [From Ditropan] Allergy Verified 11/22/18 16:14 sertraline [From Zoloft] Allergy Verified 11/22/18 16:14 paroxetine AdvReac Unknown GI UPSET Verified 11/22/18 16:14 Home Medications Home Medications Medication Instructions Recorded Confirmed Type PreserVision AREDS-2 1 tab PO BID 12/14/17 11/25/18 History cholecalciferol (vitamin D3) 1,000 unit PO QAM 12/14/17 12/06/18 History [Vitamin D3] cyanocobalamin (vitamin B-12) 1,000 mcg PO QAM 12/14/17 11/25/18 History [Vitamin B-12] ranitidine HCl 150 mg PO HS 12/14/17 11/25/18 History acetaminophen [Tylenol Arthritis 2 tabs PO UD PRN 08/14/18 12/06/18 History Pain] fluticasone propionate 1 spray INTRANASAL BID 08/14/18 11/25/18 History isosorbide mononitrate 30 mg PO QAM 08/14/18 11/25/18 History pantoprazole 40 mg PO QAM 08/14/18 11/25/18 History potassium chloride [Klor-Con M20] 20 meq PO UD #90 tab 08/21/18 11/25/18 Rx atorvastatin 80 mg tablet 80 mg PO HS 90 Days #90 tab 09/16/18 12/06/18 Rx digoxin 125 mcg tablet 125 mcg PO QAM 30 Days #30 tab 10/05/18 11/25/18 Rx levothyroxine 50 mcg tablet 50 mcg PO QAM 30 Days #30 tab 10/05/18 11/25/18 Rx allopurinol 300 mg tablet 300 mg PO QAM #30 tab 11/01/18 12/06/18 Rx metoprolol succinate ER 50 mg 100 mg PO BID #360 tab 11/16/18 11/25/18 Rx tablet,extended release 24 hr insulin aspart (U-100) 100 unit/mL 3 units SUBCUT TIDM #15 ml 11/17/18 11/25/18 Rx (3 mL) subcutaneous pen insulin glargine (U-100) 100 25 units SUBCUT HS #15 ml 11/17/18 11/25/18 Rx unit/mL (3 mL) subcutaneous pen tapentadol 50 mg tablet 50 mg PO BID PRN #60 tab 11/17/18 11/25/18 Rx benzonatate 100 mg capsule 100 mg PO TID PRN 11/20/18 11/25/18 History diclofenac 1 % topical gel 2 g TOPICAL HS gm 11/20/18 11/25/18 History diltiazem ER 180 mg 180 mg PO DAILY #90 tab 11/20/18 11/25/18 History tablet,extended release 24 hr magnesium 400 mg (as magnesium 400 mg PO BID cap 11/20/18 11/25/18 History oxide) capsule nystatin 100,000 unit/gram topical 1 appln TOPICAL BID #2 gm 11/20/18 11/25/18 History ointment apixaban 2.5 mg tablet 2.5 mg PO BID #60 tab 11/22/18 12/06/18 Rx albuterol sulfate HFA 90 2 puffs INHALATION Q4H PRN #2 gm 11/25/18 12/06/18 Rx mcg/actuation aerosol inhaler furosemide 40 mg tablet 80 mg PO BID tab 11/25/18 History gabapentin 400 mg capsule 400 mg PO TID #90 cap 11/25/18 11/25/18 Rx clopidogrel 75 mg tablet 75 mg PO DAILY 30 Days #30 tab 11/30/18 12/06/18 Rx Past Med/Surg History Medical History Anxiety (Chronic) GERD (gastroesophageal reflux disease) (Chronic) COPD (chronic obstructive pulmonary disease) (Chronic) Hypothyroidism (Chronic) Managed with levothyroxine supplementation Chronic kidney disease (CKD) (Chronic) Stage III, baseline Cr 1.3-1.5mg/dL. Complicated with normocytic anemia and secondary hyperparathyroidism. Followed by nephrology. Mitral regurgitation (Chronic) Obstructive sleep apnea (Chronic) Long standing. Managed with CPAP nightly. CPAP titration polysomnography (07/14). Atrial fibrillation (Chronic) Diastolic congestive heart failure (Chronic) Asthma (Chronic) Anemia (Chronic) Chronic macrocytic Falls frequently (Chronic) Gait disorder (Chronic) HTN (hypertension) (Chronic) Macular degeneration (Chronic) Pneumonia (Ruled-out) Effusion of knee joint right (Inactive) Surgical History S/P implantation of urinary electronic stimulator device (Resolved) H/O colonoscopy (Resolved) Family History Other Coronary heart disease Social History Preferred Language: Ukrainian Communication Ability: Effective Visual Impairment: No Limitations Hearing Ability: Normal Community Educator Required: No Beliefs That Will Affect Care: None marital status: Life Partner Current Living Situation: Significant Other current occupational status: retired Feels Safe at Home: Yes Smoking Status: Never smoker Hx Alcohol Use: Yes Alcohol type: beer Hx Substance Use: No Childhood Exposure to Second-Hand Smoke: No Review of Systems Review of Systems: Review of system Constitutional: No fever / no chills / no sweats / no weakness / no fatigue Eyes: no blurring of vision / no eye pain / no discharge / no redness ENT: no hearing loss / no epistaxis /no swallowing problems Respiratory: no cough / no wheezing / no SOB / no hemoptysis Cardiovascular: Chest pain as described in HPI abdomen: no pain / no nausea / no vomiting / no constipation Musculoskeletal: no joint pain / no muscle pain / no joint swelling Genitourinary: no dysuria / no incontinence / no urinary retention Neurologic: no focal weakness / no numbness/tingling / no ataxia Psychiatric: no depression symptoms / no anxiety / no insomnia Endocrine: no excessive thirst / no excessive urination Hematologic: no abnormal bleeding / no bruising / no LN swelling Skin: No rash / no pallor Physical Exam Physical Exam: Physical examination General obese and appears to be in moderate acute distress HEENT: Atraumatic , normocephalic /no jaundice /no pallor /anicteric /no dry mucous membrane /normal external ear inspection Neck: Supple /no swelling /central trach Heart: S1/S2 irregular irregularity with 2/6, murmur Chest pain is non-reproducible Lungs: Clear to auscultation bilaterally/normal chest with expansion/no rhonchi/no rales/no wheezing/no use of accessory muscles of respiration Abdomen: Soft/nontender/no guarding/no rebound/no organomegaly/no pulsatile mass Musculoskeletal: No swelling/no edema/no tenderness/normal range of motion Neuro exam: Awake alert oriented 3/cranial nerves II through XII appear to be intact/sensation intact/moves all extremities/no abnormal movements Psychiatric evaluation: No depressed mood/normal affect Skin: No rash on exposed skin area/no erythema Extremity: Normal pulse/no pitting edema/no clubbing or cyanosis Endocrine/lymphatic: No obvious lymphadenopathy /no lymphedema Results & Data Vital Signs (Past 12 Hours) Vital Signs Temp Pulse Resp BP Pulse Ox 12/06/18 19:31 114 H 17 147/67 H 98 12/06/18 19:00 75 15 157/101 H 96 12/06/18 18:30 80 18 150/93 H 94 12/06/18 18:12 87 150/89 H 12/06/18 18:06 93 H 20 150/89 H 95 12/06/18 17:35 110 H 24 96 12/06/18 17:17 36.8 C 110 H 24 166/77 H 96 Code Status & VTE Plan VTE Prophylaxis Plan VTE Prophylaxis will be ordered: Yes PG Care Time/CCT Total # of Minutes Spent Total Time Spent with Patient: 45 minutes Total time spent is greater than 50% in coordination of care (as documented) at patient's floor/unit and/or counseling patient: (1) Chest pain Chest pain type: unspecified Qualified Code(s): R07.9 - Chest pain, unspecified
[2018-12-06] MEDS ORDERED: INSULIN ASPART 100 UNITS/ML 3 ML PEN SC SCH (21:25)
[2018-12-06] MEDS ORDERED: GLUCOSE 40% GEL 15 GM TUBE PO PRN (21:25)
[2018-12-06] MEDS ORDERED: ALUMINUM/MAGNESIUM SUSP 30 ML UDC PO PRN (21:25)
[2018-12-06] MEDS ORDERED: ALBUTEROL HFA 8 GM INHALER INH PRN (21:25)
[2018-12-06] MEDS ORDERED: GLUCOSE 10 TABS/TUBE PO PRN (21:25)
[2018-12-06] MEDS ORDERED: MAGNESIUM HYDROXIDE SUSP 30 ML UDC PO PRN (21:25)
[2018-12-06] MEDS ORDERED: BENZONATATE 100 MG CAPSULE PO PRN (21:25)
[2018-12-06] MEDS ORDERED: MoRPHine SULFATE 2 MG/ML CARP IV PRN (21:25)
[2018-12-06] MEDS ORDERED: POLYETHYLENE (MIRALAX) 17 GM PACK PO PRN (21:25)
[2018-12-06] MEDS ORDERED: ZOLPIDEM TARTRATE 5 MG TAB PO PRN (21:25)
[2018-12-06] MEDS ORDERED: ACETAMINOPHEN PO PRN (21:25)
[2018-12-06] MEDS ORDERED: SODIUM CHLORIDE 0.9% 1000ML 1,000 ML IV SCH (21:25)
[2018-12-06] MEDS ORDERED: INSULIN GLARGINE SOLOSTAR 100 UNITS/ML 3 ML PEN SQ SCH (21:25)
[2018-12-06] MEDS ORDERED: DEXTROSE 50% 50 ML SYRINGE IV PRN (21:25)
[2018-12-06] MEDS ORDERED: CARBOHYDRATES FOR HYPOGLYCEMIA PO PRN (21:25)
[2018-12-06] MEDS ORDERED: TAPENTADOL HCL 50 MG TAB PO PRN (21:25)
[2018-12-06] MEDS ORDERED: GLUCAGON FOR INJ 1 MG VIAL SQ PRN (21:25)
[2018-12-06] MEDS: NITROGLYCERIN 2% OINTMENT 30GM TUBE EXT SCH (22:09)
--- NOTE | 2018-12-06 22:16 | Emergency Department Note ---
Entered by Yesi Saxena acting as a scribe for Charlette Wiseman MD History of Present Illness General Chief complaint: Chest Pain Stated complaint: CHEST PAIN- CARDIAC HX Time Seen by Provider: 12/06/18 17:20 Source: patient History of Present Illness Onset (ago): hour(s) (6.5) Location: chest Severity: severe and similar to prior episodes Pain Consistency: + intermittent Maximum Pain Intensity: 10 Quality: + other (Chest pain) Relieved By: + medication (Roll Aide) Exacerbated By: + movement Associated symptoms: + chest pain and + other (History of CO.) Treatments prior to arrival: other (Eliquis, Plavix) The patient is an 83 year old female presenting to the Emergency Department complaining of intermittent chest pain starting 6.5 hours ago. The patient reports that she has severe left-sided chest pain. She states that she took Rolaid that briefly helped her pain. She explains that moving around worsens her pain. She notes that she does have a cardiac history as she had an CO when she lived in [place]. She adds that her symptoms today feel like she is having a heart attack. The patient reports that she takes Eliquis and Plavix twice a day including today. Home Medications Home Medications Medication Instructions Recorded Confirmed Type PreserVision AREDS-2 1 tab PO BID 12/14/17 12/06/18 History cholecalciferol (vitamin D3) 1,000 unit PO QAM 12/14/17 12/06/18 History [Vitamin D3] cyanocobalamin (vitamin B-12) 1,000 mcg PO QAM 12/14/17 12/06/18 History [Vitamin B-12] ranitidine HCl 150 mg PO HS 12/14/17 12/06/18 History acetaminophen [Tylenol Arthritis 2 tabs PO UD PRN 08/14/18 12/06/18 History Pain] fluticasone propionate 1 spray INTRANASAL BID 08/14/18 12/06/18 History isosorbide mononitrate 30 mg PO QAM 08/14/18 12/06/18 History pantoprazole 40 mg PO QAM 08/14/18 12/06/18 History atorvastatin 80 mg tablet 80 mg PO HS 90 Days #90 tab 09/16/18 12/06/18 Rx levothyroxine 50 mcg tablet 50 mcg PO QAM 30 Days #30 tab 10/05/18 12/06/18 Rx allopurinol 300 mg tablet 300 mg PO QAM #30 tab 11/01/18 12/06/18 Rx metoprolol succinate ER 50 mg 100 mg PO BID #360 tab 11/16/18 12/06/18 Rx tablet,extended release 24 hr insulin aspart (U-100) 100 unit/mL 3 units SUBCUT TIDM #15 ml 11/17/18 12/06/18 Rx (3 mL) subcutaneous pen insulin glargine (U-100) 100 25 units SUBCUT HS #15 ml 11/17/18 12/06/18 Rx unit/mL (3 mL) subcutaneous pen tapentadol 50 mg tablet 50 mg PO BID PRN #60 tab 11/17/18 12/06/18 Rx benzonatate 100 mg capsule 100 mg PO TID PRN 11/20/18 12/06/18 History diclofenac 1 % topical gel 2 g TOPICAL HS gm 11/20/18 12/06/18 History diltiazem ER 180 mg 180 mg PO DAILY #90 tab 11/20/18 12/06/18 History tablet,extended release 24 hr magnesium 400 mg (as magnesium 400 mg PO QAM cap 11/20/18 12/06/18 History oxide) capsule nystatin 100,000 unit/gram topical 1 appln TOPICAL BID #2 gm 11/20/18 12/06/18 History ointment apixaban 2.5 mg tablet 2.5 mg PO BID #60 tab 11/22/18 12/06/18 Rx albuterol sulfate HFA 90 2 puffs INHALATION Q4H PRN #2 gm 11/25/18 12/06/18 Rx mcg/actuation aerosol inhaler furosemide 40 mg tablet 80 mg PO BID tab 11/25/18 12/06/18 History clopidogrel 75 mg tablet 75 mg PO DAILY 30 Days #30 tab 11/30/18 12/06/18 Rx digoxin 125 mcg PO Q2D 12/06/18 12/06/18 History gabapentin 300 mg PO TID 12/06/18 12/06/18 History gabapentin 400 mg PO TID 12/06/18 12/06/18 History potassium chloride 20 meq PO .QAFTERNOON 12/06/18 12/06/18 History potassium chloride [Klor-Con M20] 40 meq PO QAM 12/06/18 12/06/18 History Allergies Allergy/AdvReac Type Severity Reaction Status Date / Time shellfish derived Allergy Severe ANAPHYLAXIS Verified 11/22/18 16:14 iodine Allergy Intermediate ANAPHYLAXIS Verified 11/22/18 16:14 lisinopril Allergy Verified 11/22/18 16:14 oxybutynin [From Ditropan] Allergy Verified 11/22/18 16:14 sertraline [From Zoloft] Allergy Verified 11/22/18 16:14 paroxetine AdvReac Unknown GI UPSET Verified 11/22/18 16:14 Past Med/Surg History Medical History Anxiety (Chronic) GERD (gastroesophageal reflux disease) (Chronic) COPD (chronic obstructive pulmonary disease) (Chronic) Hypothyroidism (Chronic) Managed with levothyroxine supplementation Chronic kidney disease (CKD) (Chronic) Stage III, baseline Cr 1.3-1.5mg/dL. Complicated with normocytic anemia and secondary hyperparathyroidism. Followed by nephrology. Mitral regurgitation (Chronic) Obstructive sleep apnea (Chronic) Long standing. Managed with CPAP nightly. CPAP titration polysomnography (07/14). Atrial fibrillation (Chronic) Diastolic congestive heart failure (Chronic) Asthma (Chronic) Anemia (Chronic) Chronic macrocytic Falls frequently (Chronic) Gait disorder (Chronic) HTN (hypertension) (Chronic) Macular degeneration (Chronic) Pneumonia (Ruled-out) Effusion of knee joint right (Inactive) Surgical History S/P implantation of urinary electronic stimulator device (Resolved) H/O colonoscopy (Resolved) Family History Other Coronary heart disease Social History Preferred Language: Vietnamese Communication Ability: Effective Visual Impairment: No Limitations Hearing Ability: Normal Conveyor Belt Installer Required: No Beliefs That Will Affect Care: None marital status: Life Partner Current Living Situation: Significant Other current occupational status: retired Feels Safe at Home: Yes Smoking Status: Never smoker Hx Alcohol Use: No Hx Substance Use: No Childhood Exposure to Second-Hand Smoke: No Review of Systems See HPI for pertinent positives & negatives. and A total of 10 systems reviewed and were otherwise negative Physical Exam Vital Signs Vital Signs - 24 hr 12/06/18 17:17 12/06/18 17:35 12/06/18 18:06 Temperature 36.8 C Temperature Source Oral Sepsis Recent Fever Within 48 Hours No Sepsis New/Unexplained Change in Mental Status No Sepsis Action Taken by Nursing No Action Required Pulse Rate 110 H 110 H 93 H Pulse Rate from SpO2 Sensor 112 H Pulse Rhythm Regular Respiratory Rate 24 24 20 Respiratory Effort / Characteristics Non-Labored Spontaneous Blood Pressure 166/77 H 150/89 H Blood Pressure Mean 106 109 Blood Pressure Position Sitting Pulse Oximetry 96 96 95 Oxygen Delivery Method Room Air Room Air Room Air 12/06/18 18:12 12/06/18 18:30 12/06/18 19:00 Temperature Temperature Source Sepsis Recent Fever Within 48 Hours Sepsis New/Unexplained Change in Mental Status Sepsis Action Taken by Nursing Pulse Rate 87 80 75 Pulse Rate from SpO2 Sensor 91 H 107 H Pulse Rhythm Respiratory Rate 18 15 Respiratory Effort / Characteristics Blood Pressure 150/89 H 150/93 H 157/101 H Blood Pressure Mean 112 119 Blood Pressure Position Pulse Oximetry 94 96 Oxygen Delivery Method Room Air Room Air 12/06/18 19:31 Temperature Temperature Source Sepsis Recent Fever Within 48 Hours Sepsis New/Unexplained Change in Mental Status Sepsis Action Taken by Nursing Pulse Rate 114 H Pulse Rate from SpO2 Sensor 114 H Pulse Rhythm Respiratory Rate 17 Respiratory Effort / Characteristics Blood Pressure 147/67 H Blood Pressure Mean 93 Blood Pressure Position Pulse Oximetry 98 Oxygen Delivery Method Vital signs reviewed. General: Elderly-appearing 83 year old female. Appears to be in some discomfort. HEENT: No scleral icterus, PERRLA, neck supple. Atraumatic. Cardiovascular: Rapid rate and irregular rhythm. No extra sounds. Pulmonary: Clear to auscultation bilaterally, normal work of breathing. Abdomen: Soft, nontender, nondistended, positive bowel sounds. Musculoskeletal: Atraumatic, no peripheral edema. Neurologic: Patient awake alert and oriented x 3 Skin: Warm, dry, no rash Course 1727: The patient was evaluated in room C2B, and a complete history and physical examination were performed. 1807: I reevaluated the patient at this time. 1850: I discussed the patient's case with Dr. Demetris [facility] hospitalanam. He will evaluate the patient for further management. 1900: I updated the patient on her disposition at this time. Consultations Consultation #1: I discussed the patient's case with Dr. Demetris [facility] hospitalist. He will evaluate the patient for further management. Time: 18:50 Administered Medications Acetaminophen (Tylenol) 650 mg PO Q4H PRN PRN Reason: Pain or Fever Stop: 01/05/19 21:24 Last Admin: 12/07/18 21:23 Dose: 650 mg Documented by: [id number] Acetylcysteine (Mucomyst) 600 mg PO Q12H RODDY Stop: 12/10/18 05:01 Last Admin: 12/08/18 06:26 Dose: 600 mg Documented by: [id number] Admin: 12/07/18 17:32 Dose: 600 mg Documented by: [id number] Apixaban (Eliquis) 2.5 mg PO BID RODDY Stop: 01/05/19 21:24 Last Admin: 12/08/18 08:21 Dose: 2.5 mg Documented by: [id number] Admin: 12/07/18 20:50 Dose: 2.5 mg Documented by: [id number] Admin: 12/07/18 09:32 Dose: 2.5 mg Documented by: [id number] Admin: 12/06/18 22:27 Dose: 2.5 mg Documented by: [id number] Aspirin (Ecotrin Ectab) 81 mg PO QAM [facility] Stop: 01/07/19 08:59 Last Admin: 12/08/18 08:21 Dose: 81 mg Documented by: [id number] Atorvastatin Calcium (Lipitor) 80 mg PO HS RODDY Stop: 01/05/19 21:24 Last Admin: 12/07/18 20:50 Dose: 80 mg Documented by: [id number] Admin: 12/06/18 22:28 Dose: 80 mg Documented by: [id number] Clopidogrel Bisulfate (Plavix) 75 mg PO DAILY RODDY Stop: 01/06/19 08:59 Last Admin: 12/08/18 08:17 Dose: 75 mg Documented by: [id number] Admin: 12/07/18 09:34 Dose: 75 mg Documented by: [id number] Digoxin (Lanoxin) 0.125 mg PO DAILY@1600 [facility] Stop: 01/06/19 15:59 Last Admin: 12/07/18 15:29 Dose: 0.125 mg Documented by: [id number] Diltiazem HCl (Tiazac) 180 mg PO DAILY RODDY Stop: 01/06/19 08:59 Last Admin: 12/08/18 08:20 Dose: 180 mg Documented by: [id number] Admin: 12/07/18 09:32 Dose: 180 mg Documented by: [id number] Fluticasone Propionate (Flonase) 1 sprays NA BID RODDY Stop: 01/05/19 21:24 Last Admin: 12/08/18 08:20 Dose: 1 sprays Documented by: [id number] Admin: 12/07/18 20:51 Dose: Not Given Documented by: [id number] Admin: 12/07/18 08:40 Dose: 1 sprays Documented by: [id number] Admin: 12/06/18 22:26 Dose: Not Given Documented by: [id number] Gabapentin (Neurontin) 400 mg PO TID RODDY Stop: 01/05/19 21:24 Last Admin: 12/08/18 13:54 Dose: 400 mg Documented by: [id number] Admin: 12/08/18 08:20 Dose: 400 mg Documented by: [id number] Admin: 12/07/18 20:48 Dose: 400 mg Documented by: [id number] Admin: 12/07/18 13:58 Dose: 400 mg Documented by: [id number] Admin: 12/07/18 09:33 Dose: 400 mg Documented by: [id number] Admin: 12/06/18 22:26 Dose: 400 mg Documented by: [id number] Sodium Chloride (Nss) 500 mls @ 70 mls/hr IV .Q7H9M RDODY Stop: 01/06/19 15:44 Last Infusion: 12/08/18 07:16 Dose: 0 mls/hr Documented by: [id number] Infusion: 12/08/18 04:30 Dose: 0 mls/hr Documented by: [id number] Infusion: 12/08/18 03:53 Dose: 0 mls/hr Documented by: [id number] Admin: 12/08/18 00:22 Dose: 70 mls/hr Documented by: [id number] Infusion: 12/08/18 00:22 Dose: 70 mls/hr Documented by: [id number] Admin: 12/07/18 17:33 Dose: 70 mls/hr Documented by: [id number] Insulin Aspart (Novolog Flexpen) 3 units SQ TIDM RODDY Stop: 01/06/19 07:59 Last Admin: 12/08/18 13:53 Dose: 3 units Documented by: [id number] Cosigned by: [id number] Admin: 12/08/18 08:24 Dose: 3 units Documented by: [id number] Cosigned by: [id number] Admin: 12/07/18 17:12 Dose: 3 units Documented by: [id number] Cosigned by: [id number] Admin: 12/07/18 14:37 Dose: 3 units Documented by: [id number] Cosigned by: [id number] Admin: 12/07/18 09:02 Dose: Not Given Documented by: [id number] Cosigned by: [id number] Insulin Aspart (Novolog Flexpen) 0 units SC ACHS RODDY Stop: 01/06/19 16:29 Last Admin: 12/08/18 13:52 Dose: 11 units Documented by: [id number] Cosigned by: [id number] Admin: 12/08/18 08:22 Dose: 11 units Documented by: [id number] Cosigned by: [id number] Admin: 12/08/18 04:13 Dose: 5 units Documented by: [id number] Cosigned by: [id number] Admin: 12/07/18 20:46 Dose: 10 units Documented by: [id number] Cosigned by: [id number] Admin: 12/07/18 17:13 Dose: 13 units Documented by: [id number] Cosigned by: [id number] Insulin Glargine (Lantus Solostar Pen) 25 units SQ HS RODDY Stop: 01/06/19 20:59 Last Admin: 12/07/18 20:47 Dose: 25 units Documented by: [id number] Cosigned by: [id number] Isosorbide Mononitrate (Imdur Extended Rel) 30 mg PO QAM [facility] Stop: 01/05/19 21:24 Last Admin: 12/08/18 08:20 Dose: 30 mg Documented by: [id number] Admin: 12/07/18 09:35 Dose: 30 mg Documented by: [id number] Admin: 12/06/18 22:27 Dose: 30 mg Documented by: [id number] Levothyroxine Sodium (Synthroid) 50 mcg PO DAILYBB [facility] Stop: 01/06/19 06:29 Last Admin: 12/08/18 06:26 Dose: 50 mcg Documented by: [id number] Admin: 12/07/18 06:03 Dose: 50 mcg Documented by: [id number] Magnesium Oxide (Mag-Ox) 400 mg PO BID RODDY Stop: 01/05/19 21:24 Last Admin: 12/08/18 08:20 Dose: 400 mg Documented by: [id number] Admin: 12/07/18 20:49 Dose: 400 mg Documented by: [id number] Admin: 12/07/18 09:33 Dose: 400 mg Documented by: [id number] Admin: 12/06/18 22:27 Dose: 400 mg Documented by: [id number] Metoprolol Succinate (Toprol Xl) 100 mg PO BID RODDY Stop: 01/05/19 21:24 Last Admin: 12/08/18 08:20 Dose: 100 mg Documented by: [id number] Admin: 12/07/18 20:49 Dose: 100 mg Documented by: [id number] Admin: 12/07/18 09:34 Dose: 100 mg Documented by: [id number] Admin: 12/06/18 22:26 Dose: 100 mg Documented by: [id number] Multivitamins/Minerals (Multivitamin W/ Minerals Tab) 1 tab PO BID RODDY Stop: 01/05/19 21:24 Last Admin: 12/08/18 08:20 Dose: 1 tab Documented by: [id number] Admin: 12/07/18 20:49 Dose: 1 tab Documented by: [id number] Admin: 12/07/18 09:33 Dose: 1 tab Documented by: [id number] Admin: 12/06/18 22:27 Dose: 1 tab Documented by: [id number] Nitroglycerin (Nitrostat) 0.4 mg SL UD PRN PRN Reason: Chest Pain Stop: 01/05/19 17:27 Last Admin: 12/06/18 21:28 Dose: 0.4 mg Documented by: [id number] Admin: 12/06/18 19:37 Dose: 0.4 mg Documented by: [id number] Admin: 12/06/18 19:31 Dose: 0.4 mg Documented by: [id number] Admin: 12/06/18 17:42 Dose: 0.4 mg Documented by: [id number] Nystatin (Mycostatin) 1 appln EXT BID RODDY Stop: 01/05/19 21:24 Last Admin: 12/08/18 08:25 Dose: Not Given Documented by: [id number] Admin: 12/07/18 20:51 Dose: Not Given Documented by: [id number] Admin: 12/07/18 08:41 Dose: Not Given Documented by: [id number] Admin: 12/06/18 22:29 Dose: Not Given Documented by: [id number] Pantoprazole Sodium (Protonix) 40 mg PO QAM RODDY Stop: 01/06/19 08:59 Last Admin: 12/08/18 08:20 Dose: 40 mg Documented by: [id number] Admin: 12/07/18 09:32 Dose: 40 mg Documented by: [id number] Tapentadol (Nucynta) 50 mg PO BID PRN PRN Reason: pain Stop: 12/20/18 21:24 Last Admin: 12/07/18 13:36 Dose: 50 mg Documented by: [id number] Vitamin D (Vitamin D3) 1,000 units PO QAM [facility] Stop: 01/06/19 08:59 Last Admin: 12/08/18 08:17 Dose: 1,000 units Documented by: [id number] Admin: 12/07/18 09:34 Dose: 1,000 units Documented by: [id number] Discontinued Medications Albuterol (Duoneb) 3 ml NEB NOW STA Stop: 12/08/18 03:48 Last Admin: 12/08/18 04:00 Dose: 3 ml Documented by: [id number] Diphenhydramine HCl (Benadryl) Confirm Administered Dose 50 mg .ROUTE .MPOWER [facility] ONE Stop: 12/07/18 11:49 Last Admin: 12/07/18 14:00 Dose: 50 mg Documented by: [id number] Fentanyl Citrate (Fentanyl Citrate) 25 mcg IV NOW STA Stop: 12/06/18 17:39 Last Admin: 12/06/18 18:12 Dose: 25 mcg Documented by: [id number] Fentanyl Citrate (Fentanyl Citrate) Confirm Administered Dose 100 mcg .ROUTE .MPOWER [facility] ONE Stop: 12/07/18 11:20 Last Admin: 12/07/18 13:57 Dose: 100 mcg Documented by: [id number] Heparin Sodium (Porcine) (Heparin Iv Bolus (Nurse Liaison Use Only)) Confirm Administered Dose 10,000 units .ROUTE .STKairos AR-MED ONE Stop: 12/07/18 11:20 Last Admin: 12/07/18 13:58 Dose: 8,000 units Documented by: [id number] Heparin Sodium/Sodium Chloride (Heparin/Nss 1000 Unit/500ml Flush Bag) Confirm Administered Dose 3,000 units IV .STK-MED ONE Stop: 12/07/18 11:20 Last Admin: 12/07/18 15:19 Dose: Not Given Documented by: [id number] Admin: 12/07/18 13:58 Dose: Not Given Documented by: [id number] Sodium Chloride (Nss 1000ml) 1,000 mls @ 50 mls/hr IV .Q20H RODDY Stop: 12/07/18 17:24 Last Infusion: 12/07/18 15:27 Dose: 0 mls/hr Documented by: [id number] Admin: 12/06/18 22:38 Dose: 50 mls/hr Documented by: [id number] Sodium Chloride (Nss 1000ml) 1,000 mls @ 500 mls/hr IV .Q2H RODDY Stop: 12/07/18 14:29 Last Infusion: 12/07/18 15:20 Dose: 0 mls/hr Documented by: [id number] Infusion: 12/07/18 15:20 Dose: 0 mls/hr Documented by: [id number] Admin: 12/07/18 13:58 Dose: 500 mls/hr Documented by: [id number] Insulin Aspart (Novolog Flexpen) 0 units SC ACHS [facility] Stop: 01/05/19 21:24 Last Admin: 12/06/18 22:41 Dose: 2 units Documented by: [id number] Cosigned by: [id number] Insulin Aspart (Novolog Flexpen) 0 units SC Q6 RODDY Stop: 01/06/19 05:59 Last Admin: 12/07/18 13:56 Dose: 3 units Documented by: [id number] Cosigned by: [id number] Admin: 12/07/18 06:03 Dose: 2 units Documented by: [id number] Cosigned by: [id number] Insulin Aspart (Novolog Flexpen) 7 units SC ONCE STA Stop: 12/07/18 16:42 Last Admin: 12/07/18 17:27 Dose: Not Given Documented by: [id number] Cosigned by: [id number] Insulin Aspart (Novolog Flexpen) 0 units SC ONE ONE Stop: 12/08/18 04:31 Last Admin: 12/08/18 04:27 Dose: Not Given Documented by: [id number] Insulin Glargine (Lantus Solostar Pen) 10 units SQ HS RODDY Stop: 01/05/19 21:24 Last Admin: 12/06/18 22:30 Dose: 10 units Documented by: [id number] Cosigned by: [id number] Insulin Glargine (Lantus Solostar Pen) 10 units SC NOW ONE Stop: 12/08/18 13:31 Last Admin: 12/08/18 13:53 Dose: 10 units Documented by: [id number] Cosigned by: [id number] Methylprednisolone (Solumedrol) Confirm Administered Dose 125 mg .ROUTE .STK-MED ONE Stop: 12/07/18 11:48 Last Admin: 12/07/18 13:59 Dose: 125 mg Documented by: [id number] Metoprolol Tartrate (Lopressor) 5 mg IV NOW STA Stop: 12/06/18 17:33 Last Admin: 12/06/18 18:12 Dose: 5 mg Documented by: [id number] Midazolam HCl (Versed) Confirm Administered Dose 2 mg .ROUTE .STK-MED ONE Stop: 12/07/18 11:20 Last Admin: 12/07/18 13:59 Dose: 2 mg Documented by: [id number] Morphine Sulfate (Morphine Sulfate) Confirm Administered Dose 2 mg .ROUTE .STK- MED ONE Stop: 12/06/18 19:50 Last Admin: 12/06/18 19:59 Dose: 1 mg Documented by: [id number] Nicardipine HCl (Cardene) Confirm Administered Dose 25 mg .ROUTE .STK-MED ONE Stop: 12/07/18 11:20 Last Admin: 12/07/18 15:19 Dose: Not Given Documented by: [id number] Admin: 12/07/18 13:56 Dose: Not Given Documented by: [id number] Nitroglycerin (Nitro-Bid 2%) 1 inch EXT Q6H RODDY Stop: 01/05/19 21:59 Last Admin: 12/07/18 09:35 Dose: 1 inch Documented by: [id number] Admin: 12/07/18 04:11 Dose: 1 inch Documented by: [id number] Admin: 12/06/18 22:09 Dose: 1 inch Documented by: [id number] Nitroglycerin/Dextrose (Nitroglycerin/D5w 100 Mcg/Ml 20ml Syringe) Confirm Administered Dose 2,000 mcg .ROUTE .STK-MED ONE Stop: 12/07/18 11:20 Last Admin: 12/07/18 15:19 Dose: Not Given Documented by: [id number] Admin: 12/07/18 13:59 Dose: Not Given Documented by: [id number] Ranitidine HCl (Zantac) Confirm Administered Dose 50 mg IV .STK-MED ONE Stop: 12/07/18 11:48 Last Admin: 12/07/18 13:59 Dose: 50 mg Documented by: [id number] Medical Decision Making Differential Diagnosis DDx: Acute coronary syndrome, pulmonary embolus, aortic dissection, musculoskeletal pain, pneumonia, pleural effusion, pneumothorax, GERD Medical Records Attestation: I reviewed the patient's medical records. Home Medications Current Medication List: was personally reviewed by me Laboratory Data Attestation: I reviewed the patient's lab results. Result diagrams: 12/06/18 17:45 12/07/18 15:56 Lab Results 12/06/18 12/06/18 12/06/18 Range/Units 17:45 17:45 17:45 WBC 5.97 (4.8-10.8) K/uL RBC 3.26 L (4.2-5.4) M/uL Hgb 10.0 L (12.0-16.0) g/dL Hct 31.8 L (37-47) % MCV 97.5 (80-100) fL MCH 30.7 (25-34) pg MCHC 31.4 L (32-36) g/dL RDW Std Deviation 55.7 H (36.4-46.3) fL RDW Coeff of Talia 16.0 H (11.5-14.5) % Plt Count 203 (130-400) K/uL MPV 10.6 H (7.4-10.4) fL Immature Gran % (Auto) 0.8 % Neut % (Auto) 76.2 % Lymph % (Auto) 13.9 % Briscoe % (Auto) 6.2 % Eos % (Auto) 2.7 % Baso % (Auto) 0.2 % Immature Gran # (Auto) 0.05 H (0.00-0.02) K/uL Neut # (Auto) 4.55 (1.4-6.5) K/uL Lymph # (Auto) 0.83 L (1.2-3.4) K/uL Briscoe # (Auto) 0.37 (0.11-0.59) K/uL Eos # (Auto) 0.16 (0-0.5) K/uL Baso # (Auto) 0.01 (0-0.2) K/uL PT 10.3 (9.0-12.0) Seconds INR 1.0 (0.9-1.1) APTT 23.7 (21.0-31.0) Seconds PTT Ratio 0.9 Sodium 139 (136-145) mmol/L Potassium 3.9 (3.5-5.1) mmol/L Chloride 96 L (98-107) mmol/L Carbon Dioxide 32 (21-32) mmol/L Anion Gap 11.0 (3-11) BUN 24 H (7-18) mg/dl Creatinine 1.87 H (0.6-1.2) mg/dl Est Cr Clr Drug Dosing Not Reportable Est GFR ( Amer) 28.7 Est GFR (Non-Af Amer) 24.8 BUN/Creatinine Ratio 12.9 (10-20) Glucose 271 H (70-99) mg/dl Calcium 9.4 (8.5-10.1) mg/dl Total Bilirubin 1.0 (0.2-1) mg/dl AST 14 L (15-37) U/L ALT 16 (12-78) U/L Alkaline Phosphatase 103 (45-117) U/L Troponin I 0.069 H* (0-0.045) ng/ml Total Protein 7.3 (6.4-8.2) gm/dl Albumin 3.5 (3.4-5.0) gm/dl Globulin 3.8 (2.5-4.0) gm/dl Albumin/Globulin Ratio 0.9 (0.9-2) Lipase 73 (73-393) U/L TSH (0.300-4.500) uIu/ml 12/06/18 Range/Units 17:45 WBC (4.8-10.8) K/uL RBC (4.2-5.4) M/uL Hgb (12.0-16.0) g/dL Hct (37-47) % MCV (80-100) fL MCH (25-34) pg MCHC (32-36) g/dL RDW Std Deviation (36.4-46.3) fL RDW Coeff of Talia (11.5-14.5) % Plt Count (130-400) K/uL MPV (7.4-10.4) fL Immature Gran % (Auto) % Neut % (Auto) % Lymph % (Auto) % Briscoe % (Auto) % Eos % (Auto) % Baso % (Auto) % Immature Gran # (Auto) (0.00-0.02) K/uL Neut # (Auto) (1.4-6.5) K/uL Lymph # (Auto) (1.2-3.4) K/uL Briscoe # (Auto) (0.11-0.59) K/uL Eos # (Auto) (0-0.5) K/uL Baso # (Auto) (0-0.2) K/uL PT (9.0-12.0) Seconds INR (0.9-1.1) APTT (21.0-31.0) Seconds PTT Ratio Sodium (136-145) mmol/L Potassium (3.5-5.1) mmol/L Chloride (98-107) mmol/L Carbon Dioxide (21-32) mmol/L Anion Gap (3-11) BUN (7-18) mg/dl Creatinine (0.6-1.2) mg/dl Est Cr Clr Drug Dosing Est GFR ( Amer) Est GFR (Non-Af Amer) BUN/Creatinine Ratio (10-20) Glucose (70-99) mg/dl Calcium (8.5-10.1) mg/dl Total Bilirubin (0.2-1) mg/dl AST (15-37) U/L ALT (12-78) U/L Alkaline Phosphatase (45-117) U/L Troponin I (0-0.045) ng/ml Total Protein (6.4-8.2) gm/dl Albumin (3.4-5.0) gm/dl Globulin (2.5-4.0) gm/dl Albumin/Globulin Ratio (0.9-2) Lipase (73-393) U/L TSH 1.730 (0.300-4.500) uIu/ml Imaging Data Radiologist's Impression: Radiology results as stated below per my review and the radiologist's interpretation: XR chest 1V portable CLINICAL HISTORY: 83 years-old Female presenting with Chest Pain. TECHNIQUE: Portable upright AP view of the chest was obtained. COMPARISON: 08/14/2018. FINDINGS: Atherosclerosis of the aortic arch. Cardiac silhouette enlarged. No focal opacity. No large effusion or pneumothorax. Degenerative changes of the thoracic spine. Upper abdomen normal. IMPRESSION: 1. Cardiomegaly. No other convincing evidence of acute cardiopulmonary disease. Electronically signed by: Surjit John M.D. 12/06/2018 6:04 PM ECG Data Attestation: I personally reviewed and interpreted this ECG as follows: Indication: chest pain Rate (beats per minute): 125 Rhythm: atrial fibrillation Findings: + other (Previous anterior infarct. Repolarization abnormality.) and + left axis deviation Blood Pressure Blood Pressure Findings: Elevated blood pressure Blood Pressure Disposition: further management by hospitalist MDM Narrative This pt was evaluated and appeared to be in no distress. IV access was obtained and lab work was drawn. Pt was placed on the glazier metal furniture. Pt is currently on apixaban and plavix, so no ASA was administered. EKG reveals rapid atrial fibrillation. CXR reveals cardiomegaly without acute process. NTG did help alleviate the pt's pain. HR improved. Lab work reveals a mildly elevated troponin at 0.069. Pt was reevaluated after IV fentanyl and was feeling much improved. Pt was advised of the findings and plan. She was d/w the hospitalist service, she will be evaluated for further management. Impression & Plan Atrial fibrillation, rapid, Chest pain, Elevated troponin Critical Care Time Critical Care Time: Yes Total Critical Care Time: 35 The high probability of a clinically significant, sudden or life threatening deterioration of the CV system required my full and direct attention, intervention and personal management. The aggregate critical care time was 35 minutes. This time is in addition to time spent performing reported procedures but includes the following: [x] Data Review and interpretation [x] Patient assessment and monitoring of vital signs [x] Documentation [x] Medication orders and management Discharge Plan Visit Data *Final* Discharge Date/Time: 12/06/18 20:59 Chief Complaint: Chest Pain Stated Complaint: CHEST PAIN- CARDIAC HX ED Provider: Charlette Wiseman Discharge Problem: Atrial fibrillation, rapid, Chest pain, Elevated troponin Patient Disposition: Admitted As Inpatient Discharge Instructions Interventions: ED Discharge Assessment Last Done: 12/06/18 20:59 Discharge Problem: Chest pain Qualifiers: Chest pain type: unspecified Qualified Code(s): R07.9 - Chest pain, unspecified The scribe's documentation has been prepared under my direction and personally reviewed by me in its entirety. I confirm that the note above accurately reflects all work, treatment, procedures, and medical decision making performed by me.
[2018-12-06] MEDS: METOPROLOL SUCC 50MG EXT REL TAB PO SCH (22:26)
[2018-12-06] MEDS: GABAPENTIN 400 MG CAP PO SCH (22:26)
[2018-12-06] MEDS: FLUTICASONE PROPIONATE NA SPR 16 GM BTL SCH (22:26)
[2018-12-06] MEDS: MAGNESIUM OXIDE 400 MG TAB PO SCH (22:27)
[2018-12-06] MEDS: APIXABAN 2.5 MG TAB PO SCH (22:27)
[2018-12-06] MEDS: ISOSORBIDE MONO EXTENDED REL 30 MG TABCR PO SCH (22:27)
[2018-12-06] MEDS: CEROVITE ADV FORMULA TAB PO SCH (22:27)
[2018-12-06] MEDS: ATORVASTATIN 40 MG TAB PO SCH (22:28)
[2018-12-06] MEDS: NYSTATIN OINT 15 GM TUBE EXT SCH (22:29)
[2018-12-07] MEDS: NITROGLYCERIN 2% OINTMENT 30GM TUBE EXT SCH ×2 (04:11→09:35)
[2018-12-07] MEDS ORDERED: Nursing to Pharmacy Communication ONE ×2 (05:38→15:29)
[2018-12-07] MEDS: INSULIN ASPART 100 UNITS/ML 3 ML PEN SC SCH ×4 (06:03→20:46)
[2018-12-07] MEDS: LEVOTHYROXINE SODIUM 50 MCG TABLET PO SCH (06:03)
[2018-12-07 07:12] LABS: Troponin I 1.32 ng/ml (0-0.045)
[2018-12-07 07:44] LABS: Estimated Average Glucose 154 mg/dl
[2018-12-07] MEDS: FLUTICASONE PROPIONATE NA SPR 16 GM BTL SCH ×2 (08:40→20:51)
[2018-12-07] MEDS: NYSTATIN OINT 15 GM TUBE EXT SCH ×2 (08:41→20:51)
[2018-12-07] MEDS: INSULIN ASPART 100 UNITS/ML 3 ML PEN SQ SCH ×4 (09:02→17:12)
[2018-12-07] MEDS: APIXABAN 2.5 MG TAB PO SCH ×2 (09:32→20:50)
[2018-12-07] MEDS: PANTOprazole 40 MG TAB PO SCH (09:32)
[2018-12-07] MEDS: dilTIAZem ER 180 MG CAPCR PO SCH (09:32)
[2018-12-07] MEDS: CEROVITE ADV FORMULA TAB PO SCH ×2 (09:33→20:49)
[2018-12-07] MEDS: MAGNESIUM OXIDE 400 MG TAB PO SCH ×2 (09:33→20:49)
[2018-12-07] MEDS: GABAPENTIN 400 MG CAP PO SCH ×3 (09:33→20:48)
[2018-12-07] MEDS: CHOLECALCIFEROL 1,000 UNITS TAB PO SCH (09:34)
[2018-12-07] MEDS: METOPROLOL SUCC 50MG EXT REL TAB PO SCH ×2 (09:34→20:49)
[2018-12-07] MEDS: CLOPIDOGREL BISULFATE 75 MG TAB PO SCH (09:34)
--- NOTE | 2018-12-07 09:34 | Cardiology Consultation ---
Date of Consultation December 07, 2018 Assessment & Plan (1) Chest pain: Mrs. 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 Unstable Angina Pectoris. She describes the discomfort as a "Deep Pain" in her chest which radiated to her posterior thorax and right arm with associated nausea, dyspnea, and generalized weakness -- patient had these symptoms off and on throughout the day yesterday for a total of about 7 hours and her symptoms resolved after receiving Morphine, Nitro-Paste, and sublingual Nitroglycerin. She is currently symptom free and her ventricular response rate is controlled. Recommend the following: -- Left Heart Catheterization / Coronary Angiography. -- Continue Metoprolol Succinate ER 100 mg bid. -- Continue Plavix 75 mg daily. -- Continue Atorvastatin 80 mg daily. -- Continue Isosorbide Mononitrate ER 30 mg daily, consider increasing at discharge depending on cath findings. -- Continue Nitropaste q 6 hours for the time being. -- Continue Sublingual NTG as needed. (2) Elevated troponin: -- As outlined above. (3) CAD (coronary artery disease): -- As outlined above. (4) Diastolic congestive heart failure: Followed by [facility], currently euvolemic, and body weight is stable at 167 pounds over the past few days. -- Dry weight is 166 pounds. -- Trigger weight is 169 pounds. -- Maintain on Lasix 80 mg b.i.d. upon discharge. -- Next appointment in Heart Failure Clinic is scheduled for 12/14/2018. (5) Atrial fibrillation: Permanent Atrial Fibrillation with controlled V-rate. -- Continue Eliquis 2.5 mg b.i.d.. -- Continue Metoprolol Succinate ER 100 mg bid. -- Continue Diltiazem ER 180 mg daily. -- Continue Digoxin 125 mcg every other day. Present on Admission?: Yes Supervising Physician Co-Signing Physician Notes Nate Roland MD History of Present Illness Reason for Consultation: 1. Chest Pain / Elevated Troponin I Level. 2. Atrial Fibrillation [facility]. Requesting Physician: Armond Donohue MD Attending Physician: Nate Roland MD History of Present Illness Mrs. 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 She describes the discomfort as a "Deep Pain" in her chest which radiates to her posterior thorax and right arm with associated nausea, dyspnea, and generalized weakness. Symptoms were coming and going yesterday -- would worsen with exertion and sometimes without exertion. Patient had just finished eating a meal and was sitting on a bench watching a [place] band play when her symptoms started. She tried a Rolaids - but is not sure if it had any impact on her symptoms. In the ER -- patient received Morphine, NTP, and NTG -- and symptoms improved / resolved. Her EKG's show A-Fib with V-rates ranging between 110 bpm to 124 bpm, with inferolateral and anterior ST depressions at variable degrees. Troponin I level was initially 0.069 and has trended up to 0.472 and 1.320 ng/ml. Patient is currently lying in room 216 and is asymptomatic. She denies any chest pain, pressure, tightness, or heaviness. Her breathing is at baseline and her weight is steady at 167 pounds. She denies any orthopnea or pnd. No palpitations, syncope, or near syncope. No signs or symptoms suggestive of stroke or mini- stroke. HISTORICAL BACKGROUND: Cardiac history began during the winter months of 2016. She was hospitalized in a [place] with an episode of atrial fibrillation and a rapid ventricular response. Electrical cardioversion was attempted but eventually unsuccessful. Her atrial fibrillation is now felt to be permanent. She is tolerating rate control and long-term anticoagulation without difficulty. Of note, her Eliquis dose will be adjusted as she is 83, and her creatinine on September 28 was 1.59 with a GFR of 30.1. In March 2018, while in [place], the patient was admitted with sepsis and respiratory failure. She required a stay in the intensive care unit and mechanical ventilation. She had a cardiac catheterization which revealed a 99% blockage in the main artery. She had a stent placed at that time. Her initial LVEF was reduced at 20% to 25%, however, had normalized by the time of her discharge -- it was felt to be Takotsubo syndrome. The patient was hospitalized in August of this year at our institution with hypervolemia and lower extremity ulcers. An Echocardiogram during that hospitalization noted normal left systolic function and moderate to severe mitral regurgitation. The patient is followed by Madelaine Rothman PA-C in our Heart failure Clinic. The patient follows daily weights at home and notes a dry weight of 166 pounds and a trigger weight of 169 pounds. She is currently taking Lasix 80 mg b.i.d.. Allergies Allergy/AdvReac Type Severity Reaction Status Date / Time shellfish derived Allergy Severe ANAPHYLAXIS Verified 11/22/18 16:14 iodine Allergy Intermediate ANAPHYLAXIS Verified 11/22/18 16:14 lisinopril Allergy Verified 11/22/18 16:14 oxybutynin [From Ditropan] Allergy Verified 11/22/18 16:14 sertraline [From Zoloft] Allergy Verified 11/22/18 16:14 paroxetine AdvReac Unknown GI UPSET Verified 11/22/18 16:14 Home Medications Home Medications Medication Instructions Recorded Confirmed Type PreserVision AREDS-2 1 tab PO BID 12/14/17 12/06/18 History cholecalciferol (vitamin D3) 1,000 unit PO QAM 12/14/17 12/06/18 History [Vitamin D3] cyanocobalamin (vitamin B-12) 1,000 mcg PO QAM 12/14/17 12/06/18 History [Vitamin B-12] ranitidine HCl 150 mg PO HS 12/14/17 12/06/18 History acetaminophen [Tylenol Arthritis 2 tabs PO UD PRN 08/14/18 12/06/18 History Pain] fluticasone propionate 1 spray INTRANASAL BID 08/14/18 12/06/18 History isosorbide mononitrate 30 mg PO QAM 08/14/18 12/06/18 History pantoprazole 40 mg PO QAM 08/14/18 12/06/18 History atorvastatin 80 mg tablet 80 mg PO HS 90 Days #90 tab 09/16/18 12/06/18 Rx levothyroxine 50 mcg tablet 50 mcg PO QAM 30 Days #30 tab 10/05/18 12/06/18 Rx allopurinol 300 mg tablet 300 mg PO QAM #30 tab 11/01/18 12/06/18 Rx metoprolol succinate ER 50 mg 100 mg PO BID #360 tab 11/16/18 12/06/18 Rx tablet,extended release 24 hr insulin aspart (U-100) 100 unit/mL 3 units SUBCUT TIDM #15 ml 11/17/18 12/06/18 Rx (3 mL) subcutaneous pen insulin glargine (U-100) 100 25 units SUBCUT HS #15 ml 11/17/18 12/06/18 Rx unit/mL (3 mL) subcutaneous pen tapentadol 50 mg tablet 50 mg PO BID PRN #60 tab 11/17/18 12/06/18 Rx benzonatate 100 mg capsule 100 mg PO TID PRN 11/20/18 12/06/18 History diclofenac 1 % topical gel 2 g TOPICAL HS gm 11/20/18 12/06/18 History diltiazem ER 180 mg 180 mg PO DAILY #90 tab 11/20/18 12/06/18 History tablet,extended release 24 hr magnesium 400 mg (as magnesium 400 mg PO QAM cap 11/20/18 12/06/18 History oxide) capsule nystatin 100,000 unit/gram topical 1 appln TOPICAL BID #2 gm 11/20/18 12/06/18 History ointment apixaban 2.5 mg tablet 2.5 mg PO BID #60 tab 11/22/18 12/06/18 Rx albuterol sulfate HFA 90 2 puffs INHALATION Q4H PRN #2 gm 11/25/18 12/06/18 Rx mcg/actuation aerosol inhaler furosemide 40 mg tablet 80 mg PO BID tab 11/25/18 12/06/18 History clopidogrel 75 mg tablet 75 mg PO DAILY 30 Days #30 tab 11/30/18 12/06/18 Rx digoxin 125 mcg PO Q2D 12/06/18 12/06/18 History gabapentin 300 mg PO TID 12/06/18 12/06/18 History gabapentin 400 mg PO TID 12/06/18 12/06/18 History potassium chloride 20 meq PO .QAFTERNOON 12/06/18 12/06/18 History potassium chloride [Klor-Con M20] 40 meq PO QAM 12/06/18 12/06/18 History Patient History Medical History Anxiety (Chronic) GERD (gastroesophageal reflux disease) (Chronic) COPD (chronic obstructive pulmonary disease) (Chronic) Hypothyroidism (Chronic) Managed with levothyroxine supplementation Chronic kidney disease (CKD) (Chronic) Stage III, baseline Cr 1.3-1.5mg/dL. Complicated with normocytic anemia and secondary hyperparathyroidism. Followed by nephrology. Mitral regurgitation (Chronic) Obstructive sleep apnea (Chronic) Long standing. Managed with CPAP nightly. CPAP titration polysomnography (07/14). Atrial fibrillation (Chronic) Diastolic congestive heart failure (Chronic) Asthma (Chronic) Anemia (Chronic) Chronic macrocytic Falls frequently (Chronic) Gait disorder (Chronic) HTN (hypertension) (Chronic) Macular degeneration (Chronic) Pneumonia (Ruled-out) Effusion of knee joint right (Inactive) Surgical History S/P implantation of urinary electronic stimulator device (Resolved) H/O colonoscopy (Resolved) Family History Other Coronary heart disease Social History Preferred Language: Argentine Communication Ability: Effective Visual Impairment: No Limitations Hearing Ability: Normal Professor Of Surgery Required: No Beliefs That Will Affect Care: None marital status: Life Partner Current Living Situation: Significant Other current occupational status: retired Feels Safe at Home: Yes Smoking Status: Never smoker Hx Alcohol Use: No Hx Substance Use: No Childhood Exposure to Second-Hand Smoke: No Physical Exam Physical Exam: GENERAL: Patient in no acute distress. HEENT: Head is atraumatic, normocephalic. EOM's intact. Facies symmetric. No perioral cyanosis. NECK: No JVD. Carotid upstrokes are + 2 bilaterally. No bruits are noted. CHEST/LUNGS: Clear to auscultation throughout all lung ta. No wheezes, rales, or crackles. CVS: S1 and S2 are irregularly irregular with an apical rate of 85 to 90 bpm. No obvious murmurs, gallops, or rubs. PMI is nonpalpable. No lifts, heaves, or thrills. No abdominal aortic or renal bruits. ABDOMINAL EXAM: Bowel sounds are present. No masses, organomegaly, or tenderness. EXTREMITIES: No clubbing or cyanosis. No edema. Intact radial pulses bilaterally. Eyad's test positive in the right upper extremity for both radial and ulnar reflow. NEUROLOGIC EXAM: Patient is awake, alert, and oriented. Pleasant and cooperative. Answers questions appropriately. Speech is clear. Telemetry shows A-Fib with a controlled V rate currently. Results & Data Vital Signs (Past 12 Hours) Vital Signs Temp Pulse Pulse Resp BP Pulse Ox 12/07/18 07:02 36.4 C L 86 19 114/65 97 12/07/18 04:03 36.9 C 92 H 18 109/65 95 12/07/18 01:46 98 H 12/06/18 22:52 36.7 C 112 H 19 156/83 H 96 12/06/18 22:22 36.4 C L 106 H 22 148/74 H 98 Laboratory Results Laboratory Results - last 24 hr 12/06/18 12/06/18 12/06/18 17:45 17:45 17:45 WBC 5.97 RBC 3.26 L Hgb 10.0 L Hct 31.8 L MCV 97.5 MCH 30.7 MCHC 31.4 L RDW Std Deviation 55.7 H RDW Coeff of Talia 16.0 H Plt Count 203 MPV 10.6 H Immature Gran % (Auto) 0.8 Neut % (Auto) 76.2 Lymph % (Auto) 13.9 Tama % (Auto) 6.2 Eos % (Auto) 2.7 Baso % (Auto) 0.2 Immature Gran # (Auto) 0.05 H Neut # (Auto) 4.55 Lymph # (Auto) 0.83 L Tama # (Auto) 0.37 Eos # (Auto) 0.16 Baso # (Auto) 0.01 PT 10.3 INR 1.0 APTT 23.7 PTT Ratio 0.9 Sodium 139 Potassium 3.9 Chloride 96 L Carbon Dioxide 32 Anion Gap 11.0 BUN 24 H Creatinine 1.87 H Est Cr Clr Drug Dosing Not Reportable Est GFR ( Amer) 28.7 Est GFR (Non-Af Amer) 24.8 BUN/Creatinine Ratio 12.9 Glucose 271 H POC Glucose Estimat Average Glucose Hemoglobin A1c Calcium 9.4 Total Bilirubin 1.0 AST 14 L ALT 16 Alkaline Phosphatase 103 Troponin I 0.069 H* Total Protein 7.3 Albumin 3.5 Globulin 3.8 Albumin/Globulin Ratio 0.9 Triglycerides Cholesterol LDL Cholesterol, Calc VLDL Cholesterol, Calc HDL Cholesterol Cholesterol/HDL Ratio Lipase 73 TSH 12/06/18 12/06/18 12/06/18 17:45 22:40 23:32 WBC RBC Hgb Hct MCV MCH MCHC RDW Std Deviation RDW Coeff of Talia Plt Count MPV Immature Gran % (Auto) Neut % (Auto) Lymph % (Auto) Tama % (Auto) Eos % (Auto) Baso % (Auto) Immature Gran # (Auto) Neut # (Auto) Lymph # (Auto) Tama # (Auto) Eos # (Auto) Baso # (Auto) PT INR APTT PTT Ratio Sodium Potassium Chloride Carbon Dioxide Anion Gap BUN Creatinine Est Cr Clr Drug Dosing Est GFR ( Amer) Est GFR (Non-Af Amer) BUN/Creatinine Ratio Glucose POC Glucose 209 H Estimat Average Glucose Hemoglobin A1c Calcium Total Bilirubin AST ALT Alkaline Phosphatase Troponin I 0.472 H* Total Protein Albumin Globulin Albumin/Globulin Ratio Triglycerides Cholesterol LDL Cholesterol, Calc VLDL Cholesterol, Calc HDL Cholesterol Cholesterol/HDL Ratio Lipase TSH 1.730 12/07/18 12/07/18 12/07/18 06:00 06:10 06:10 WBC RBC Hgb Hct MCV MCH MCHC RDW Std Deviation RDW Coeff of Talia Plt Count MPV Immature Gran % (Auto) Neut % (Auto) Lymph % (Auto) Tama % (Auto) Eos % (Auto) Baso % (Auto) Immature Gran # (Auto) Neut # (Auto) Lymph # (Auto) Tama # (Auto) Eos # (Auto) Baso # (Auto) PT INR APTT PTT Ratio Sodium Potassium Chloride Carbon Dioxide Anion Gap BUN Creatinine Est Cr Clr Drug Dosing Est GFR ( Amer) Est GFR (Non-Af Amer) BUN/Creatinine Ratio Glucose POC Glucose 194 H Estimat Average Glucose 154 Hemoglobin A1c 7.0 H Calcium Total Bilirubin AST ALT Alkaline Phosphatase Troponin I 1.320 H* Total Protein Albumin Globulin Albumin/Globulin Ratio Triglycerides 204 H Cholesterol 114 LDL Cholesterol, Calc 39 VLDL Cholesterol, Calc 41 HDL Cholesterol 34 Cholesterol/HDL Ratio 3 Lipase TSH Medications Administered Active Medications Generic Name Dose Route Start Last Admin Trade Name Freq PRN Reason Stop Dose Admin Acetaminophen 650 mg 12/06/18 21:25 Tylenol PO 01/05/19 21:24 Q4H PRN Pain or Fever Al Hydrox/Mg Hydrox/Simethicone 15 ml 12/06/18 21:25 Maalox PO 01/05/19 21:24 Q4H PRN Dyspepsia Albuterol 2 puffs 12/06/18 21:25 Ventolin Hfa INH 01/05/19 21:24 Q4H PRN shortness of breath Apixaban 2.5 mg 12/06/18 21:25 12/07/18 09:32 Eliquis PO 01/05/19 21:24 2.5 mg BID RODDY Administration Atorvastatin Calcium 80 mg 12/06/18 21:25 12/06/18 22:28 Lipitor PO 01/05/19 21:24 80 mg HS RODDY Administration Benzonatate 100 mg 12/06/18 21:25 Tessalon Perle PO 01/05/19 21:24 TID PRN cough Clopidogrel Bisulfate 75 mg 12/07/18 09:00 12/07/18 09:34 Plavix PO 01/06/19 08:59 75 mg DAILY RODDY Administration Dextrose 25 - 50 ml 12/06/18 21:25 Dextrose 50% IV 01/05/19 21:24 UD PRN Hypoglycemia Protocol Protocol Digoxin 0.125 mg 12/07/18 16:00 Lanoxin PO 01/06/19 15:59 DAILY@1600 RODDY Diltiazem HCl 180 mg 12/07/18 09:00 12/07/18 09:32 Tiazac PO 01/06/19 08:59 180 mg DAILY RODDY Administration Fluticasone Propionate 1 sprays 12/06/18 21:25 12/07/18 08:40 Flonase NA 01/05/19 21:24 1 sprays BID RODDY Administration Gabapentin 400 mg 12/06/18 21:25 12/07/18 09:33 Neurontin PO 01/05/19 21:24 400 mg TID RODDY Administration Glucagon 1 mg 12/06/18 21:25 Glucagen SQ 01/05/19 21:24 UD PRN Hypoglycemia Protocol Protocol Glucose 4 - 8 tabs 12/06/18 21:25 Dex4 Glucose PO 01/05/19 21:24 UD PRN Hypoglycemia Protocol Protocol Glucose 15 - 30 gm 12/06/18 21:25 Glucose 40% PO 01/05/19 21:24 UD PRN Hypoglycemia Protocol Protocol Sodium Chloride 1,000 mls @ 50 mls/hr 12/06/18 21:25 12/06/18 22:38 Nss 1000ml IV 12/07/18 17:24 50 mls/hr .Q20H RDODY Administration Insulin Aspart 3 units 12/07/18 08:00 12/07/18 09:02 Novolog Flexpen SQ 01/06/19 07:59 Not Given TIDM RODDY Insulin Aspart 0 units 12/07/18 06:00 12/07/18 06:03 Novolog Flexpen SC 01/06/19 05:59 2 units Q6 RODDY Administration Insulin Glargine 10 units 12/06/18 21:25 12/06/18 22:30 Lantus Solostar Pen SQ 01/05/19 21:24 10 units HS RODDY Administration Isosorbide Mononitrate 30 mg 12/06/18 21:25 12/07/18 09:35 Imdur Extended Rel PO 01/05/19 21:24 30 mg QAM RODDY Administration Levothyroxine Sodium 50 mcg 12/07/18 06:30 12/07/18 06:03 Synthroid PO 01/06/19 06:29 50 mcg DAILYBB RODDY Administration Magnesium Hydroxide 30 ml 12/06/18 21:25 Milk Of Magnesia PO 01/05/19 21:24 Q12H PRN Constipation Magnesium Oxide 400 mg 12/06/18 21:25 12/07/18 09:33 Mag-Ox PO 01/05/19 21:24 400 mg BID RODDY Administration Metoprolol Succinate 100 mg 12/06/18 21:25 12/07/18 09:34 Toprol Xl PO 01/05/19 21:24 100 mg BID RODDY Administration Miscellaneous 15 - 30 gm 12/06/18 21:25 Carbohydrates For Hypoglycemia PO 01/05/19 21:24 UD PRN Hypoglycemia Treatment Morphine Sulfate 1 mg 12/06/18 21:25 Morphine Sulfate IV 12/20/18 21:24 Q4HWA PRN Pain Multivitamins/Minerals 1 tab 12/06/18 21:25 12/07/18 09:33 Multivitamin W/ Minerals Tab PO 01/05/19 21:24 1 tab BID RODDY Administration Nitroglycerin 0.4 mg 12/06/18 17:28 12/06/18 21:28 Nitrostat SL 01/05/19 17:27 0.4 mg UD PRN Administration Chest Pain Nitroglycerin 1 inch 12/06/18 22:00 12/07/18 09:35 Nitro-Bid 2% EXT 01/05/19 21:59 1 inch Q6H RODDY Administration Nystatin 1 appln 12/06/18 21:25 12/07/18 08:41 Mycostatin EXT 01/05/19 21:24 Not Given BID RODDY Pantoprazole Sodium 40 mg 12/07/18 09:00 12/07/18 09:32 Protonix PO 01/06/19 08:59 40 mg QAM RODDY Administration Polyethylene Glycol 17 gm 12/06/18 21:25 Miralax Powder Packet PO 01/05/19 21:24 DAILY PRN Constipation Tapentadol 50 mg 12/06/18 21:25 Nucynta PO 12/20/18 21:24 BID PRN pain Vitamin D 1,000 units 12/07/18 09:00 12/07/18 09:34 Vitamin D3 PO 01/06/19 08:59 1,000 units QAM RODDY Administration Zolpidem Tartrate 5 mg 12/06/18 21:25 Ambien PO 01/05/19 21:24 HS PRN Sleep PG Care Time/CCT Total # of Minutes Spent Total Time Spent with Patient: Total time spent is greater than 50% in coordination of care (as documented) at patient's floor/unit and/or counseling patient: (1) Diastolic congestive heart failure Heart failure chronicity: acute Qualified Code(s): I50.31 - Acute diastolic (congestive) heart failure (2) Atrial fibrillation Atrial fibrillation type: permanent Qualified Code(s): I48.2 - Chronic atrial fibrillation (3) Chest pain Chest pain type: unspecified Qualified Code(s): R07.9 - Chest pain, unspecified
[2018-12-07] MEDS: ISOSORBIDE MONO EXTENDED REL 30 MG TABCR PO SCH (09:35)
[2018-12-07] MEDS ORDERED: fentaNYL citrate 100 MCG/2 ML VIAL ONE (11:19)
[2018-12-07] MEDS ORDERED: HEPARIN (PORCINE) 1000 UNIT/ML 10 ML (CATH LAB USE ONLY) ONE (11:19)
[2018-12-07] MEDS ORDERED: MIDAZOLAM HCL 1 MG/ML 2ML VIAL ONE (11:19)
[2018-12-07] MEDS ORDERED: methylPREDNISolone 125 MG/2 ML VIAL ONE (11:47)
[2018-12-07] MEDS ORDERED: raNITIdine HCl 25 MG/ML VIAL IV ONE (11:47)
[2018-12-07] MEDS ORDERED: DiphenhydrAMINE HCL 50 MG/ML VIAL ONE (11:48)
--- NOTE | 2018-12-07 13:10 | Post Anesthesia Assessment ---
Date of Service December 07, 2018 Post Sedation Assessment Vital Signs Temp Pulse Pulse Resp BP BP Pulse Ox 12/07/18 11:10 98.1 F 86 18 114/72 93 12/07/18 07:02 97.5 F L 86 19 114/65 97 12/07/18 04:03 98.4 F 92 H 18 109/65 95 12/07/18 01:46 98 H 12/06/18 22:52 98.1 F 112 H 19 156/83 H 96 12/06/18 22:22 97.5 F L 106 H 22 148/74 H 98 12/06/18 21:15 98.2 F 106 H 22 143/56 H 97 12/06/18 20:30 86 19 123/68 98 12/06/18 20:00 79 13 131/80 12/06/18 19:52 88 19 131/71 12/06/18 19:31 114 H 17 147/67 H 98 12/06/18 19:00 75 15 157/101 H 96 12/06/18 18:30 80 18 150/93 H 94 12/06/18 18:12 87 150/89 H 12/06/18 18:06 93 H 20 150/89 H 95 12/06/18 17:35 110 H 24 96 12/06/18 17:17 98.2 F 110 H 24 166/77 H 96 Recovery Score Activity: Moves 4 extremities Respiration: Deep Breath/Cough Circulation: +/-20% PreAnes Value Consciousness: Fully Awake Oxygen Saturation: O2 needed for >90% Discharge Sedation Level of Care: Fast Track Phase II Post Sedation Plan On clinical assessment, the patient appears to have tolerated the sedation without complications. Patient is recovering as anticipated. Patient will continue to be monitored by nursing and may be discharged when sedation discharge criteria are met per below protocol. Upon Completions of procedure and additional 15 minutes continue every 5 minute vital signs and the P.A.R. score; then discharge to a Phase I or Fast Track to Phase II per the following guidelines: * Discharge Patient to appropriate Phase II area if PAR is 8 or greater or return to pre- procedure baseline. The post - procedure orders will be as directed. * If PAR score is less than 8 or not return to pre-procedure baseline then p atient will follow Phase I monitoring till PAR is reached for Phase II. The Phase I may be done in procedure room or may call to secure a Phase I area. * If naloxone or flumazenil are used for reversal, hold in Phase I for continued monitoring from when last reversal dose was given for a minimum of 60 minutes or longer pending the nurse and/or physician discretion of patient condition before discharge to Phase II. Please call the Sedation Physician to re-evaluate and complete post-note for discharge to Phase II area. Do NOT discharge from procedure sedation or Phase 1 until post- sedation evaluation note is complete by procedure /sedation MD Sedation Discharge Instructions to be given to the patient at discharge to home.
--- NOTE | 2018-12-07 13:10 | Pre Anesthesia Assessment ---
Date of Service December 07, 2018 Pre Sedation Assessment Vital Signs Temp Pulse Pulse Resp BP BP Pulse Ox 12/07/18 11:10 98.1 F 86 18 114/72 93 12/07/18 07:02 97.5 F L 86 19 114/65 97 12/07/18 04:03 98.4 F 92 H 18 109/65 95 12/07/18 01:46 98 H 12/06/18 22:52 98.1 F 112 H 19 156/83 H 96 12/06/18 22:22 97.5 F L 106 H 22 148/74 H 98 12/06/18 21:15 98.2 F 106 H 22 143/56 H 97 12/06/18 20:30 86 19 123/68 98 12/06/18 20:00 79 13 131/80 12/06/18 19:52 88 19 131/71 12/06/18 19:31 114 H 17 147/67 H 98 12/06/18 19:00 75 15 157/101 H 96 12/06/18 18:30 80 18 150/93 H 94 12/06/18 18:12 87 150/89 H 12/06/18 18:06 93 H 20 150/89 H 95 12/06/18 17:35 110 H 24 96 12/06/18 17:17 98.2 F 110 H 24 166/77 H 96 Cardiovascular RRR, no murmur, no edema Respiratory normal respiratory effort, lungs clear to auscultation Pre-Sedation Airway Assessment Smoking Status: Never smoker Hx Sleep Apnea: No Hx Difficult Intubation: No Short, Thick Neck: No Thyromental Distance: > or= 3.5 Finger Breadths Oral Cavity: + WNL Mallampati Class: III Procedure Planning Contraindications for Sedation: none Current Medications Reviewed: Yes Notes The planned sedation has been discussed with the patient. Informed Consent was obtained. I have identified the patient, determined the appropriateness of sedation and have assessed the patient immediately prior to the procedure. All medicine(s) and interventions are by my order.
--- NOTE | 2018-12-07 13:26 | Cardiac Catheterization ---
[facility] Data: Marble Coper Cardiac Status Clinical evaluation leading to the procedure CAD Presenation: Non STEMI Anginal Classification: CCS IV Heart Failure: No Cardiogenic Shock within 24 Hours: No Cardiac Arrest within 24 Hours: No Imaging Studies Past 6 Months: Yes Stress Studies Past 6 Months: No Diagnostic Physicians Name: Joseph Miller MD Status: Elective Closure Device Percutaneous Entry Location: Radial Closure Device: Radial Band Recommendations: PCI without planned CABG PCI Indication: PCI for high risk Non-MELANIE Lesion Segment Name: proximal LAD Culprit Artery: Yes Stenosis Prior to Rx (%): 90+ Chronic Total Occlusion: No IVUS: Yes FFR: No Pre-Procedure FLAKITA Flow: 2 Previously Treated Lesion: Timeframe: 1-2 years Treated with Stent: Yes In-Stent Restenosis: Yes In-Stent Thrombosis: Yes Stent Type: URBANO Yes Lesion Complexity: High/C Lesion Length (mm): 15 Thrombus Present: Yes Bifurcation Lesion: Yes Guidewire Across Lesion: Stenosis Post-Procedure (%): 0 Post-Procedure FLAKITA Flow: 3 Devices(s) Deployed: Yes Yes Intraprocedure Events Significant Disection: No Perforation: No Cardiac Cath Procedure Full Procedure Date December 07, 2018 Pre-Procedure Diagnosis Pre-Procedure Diagnosis: Non STEMI AUC Score AUC Score: 8 Post-Procedure Diagnosis Post-Procedure Diagnosis: Severe CAD and Successful PCI Procedure(s) Performed Procedure(s) Performed: Coronary Angiography, Left Heart Cath, Drug Eluting Stent and IVUS Workers Compensation Coordinator Joseph Miller MD Paint Specialist(s) Alycia Estimated Blood Loss Estimated Blood Loss: 15 Medication(s) Medication(s): Fentanyl, Heparin, Lidocaine 1%, Nicardipine, Nitroglycerin and Versed Summary of Findings Indication: NSTEMI Access: 6 Fr right radial artery Catheters: Sims, EBU 3.0 guide Findings: LM -20% distal stenosis at bifurcation LAD -moderate caliber vessel, tortuous, 50% ostial stenosis, proximal LAD stent with acute 90+% in-stent stenosis, 50 to 60% stenosis just distal to prior stent at takeoff of moderate caliber first diagonal. Diffuse 60% mid segment disease. Diffuse mild distal disease as wraps around apex. Circumflex -large caliber vessel, luminal irregularities moderate caliber OM 2, left PLB without significant disease RCA -dominant, moderate caliber vessel, 30 to 40% proximal to mid disease, distal luminal irregularities. LVEDP - 18 -- PCI -- Antithrombotic therapy: Heparin Procedure: LM cannulated with EBU 3.0 guide Printed Forms Proofreader 50 wire passed across lesion into distal vessel In-stent stenosis dilated with 2.5 compliant balloon and 2.75 NC IVUS used to assess extent of disease, mechanism of stent failure. Apparent new laparoscopic plaque extending from proximal aspect of stent to distal stent. Severe mid segment disease at bifurcation with diagonal, mildly calcified. Dilated lesion stented with 2.5 x 18 mm Xience Aditi drug-eluting stent Stent post-dilated with 2.75 noncompliant balloon IC vasodilators administered for spasm IVUS showed well-expanded stent with no edge complications Post procedure FLAKITA 3 flow, stent well expanded with minimal residual stenosis and no apparent cardiac complications. Arterial Closure: TR band Summary: 1. Severe single vessel coronary artery disease - 50% ostial LAD stenosis. - 90+% acute appearing proximal LAD in-stent restenosis. 50 to 60% earlymid segment after prior stent - diffuse 60% late-mid LAD disease 2. Borderline intracardiac filling pressure 3. Successful PCI of proximal to mid LAD with single drug-eluting stent overlapping prior stent (2.5 x 18 mm Xience Aditi; postdilated with 2.75 NC Recommendations: To PCU for continued monitoring On clopidogrel, Eliquis Aspirin, clopidogrel, Eliquis for 1 week. Then continue on dual therapy with clopidogrel, Eliquis at least for next year Continue statin, and ASCVD risk factor modification Consult cardiac Rehab Hemodynamics Rest Ao:: 136/64/98 Final Ao: 126/60/9 LV: 151/18 Recommendations Recommendations: PCI without planned CABG Specimens Specimens: None Radiation Exposure (mGy) 2946 Contrast (mls) 120 Fluids (cc crystalloids) Fluids (cc crystalloids): 182 Drains Drains: none Anesthesia moderate Procedural Complication(s) None Disposition PCU
[2018-12-07] MEDS ORDERED: SODIUM CHLORIDE 0.9% 1000ML 1,000 ML IV SCH (13:30)
[2018-12-07] MEDS: NiCARDipine HCL INJ 2.5 MG/ML 10 ML AMP ONE ×2 (13:56→15:19)
[2018-12-07] MEDS: NITROGLYCERIN/D5W 100MCG/ML 20ML SYR ONE ×2 (13:59→15:19)
[2018-12-07] MEDS: DIGOXIN 0.125 MG TAB PO SCH (15:29)
--- NOTE | 2018-12-07 15:39 | Hospitalist Progress Note ---
Date of Service December 07, 2018 Assessment & Plan (1) Atrial fibrillation, rapid: Initially heart rate was 115, after 5 mg of metoprolol IV, heart rate is between 80 and 90 Continue Toprol-XL 50 mg twice daily, and oral Cardizem (2) Chest pain: (3) Elevated troponin: (4) Non-STEMI (non-ST elevated myocardial infarction): Status post cardiac catheterization with Continue Nitropaste, apixaban, baby aspirin and Plavix. Control of atrial fibrillation heart rate. Automation Control Integrator consult appreciated status post cardiac catheterization, summary is attached below 1. Severe single vessel coronary artery disease - 50% ostial LAD stenosis. - 90+% acute appearing proximal LAD in-stent restenosis. 50 to 60% earlymid segment after prior stent - diffuse 60% late-mid LAD diseas 2. Borderline intracardiac filling pressure 3. Successful PCI of proximal to mid LAD with single drug-eluting stent overlapping prior stent (2.5 x 18 mm Xience Aditi; postdilated with 2.75 NC (5) Acute kidney injury superimposed on chronic kidney disease: Continue continue holding Lasix Normal saline at 70 cc/h Mucomyst p.o. twice daily Monitor renal function (6) Chronic kidney disease, stage III (moderate): As above (7) Diabetes 1.5, managed as type 2: Continue sliding-scale insulin Increase Lantus to patient to regular home dose 20 units subcu, sliding scale insulin Hemoglobin A1c 7 (8) Essential hypertension: Continue Toprol-XL and Cardizem Currently controlled Subjective Status post cardiac catheterization, appears to be much more comfortable Chest tightness significantly improved Denies shortness of breath Review of Systems Review of Systems: Review of system Constitutional: No fever / no chills / no sweats / no weakness / no fatigue Eyes: no blurring of vision / no eye pain / no discharge / no redness ENT: no hearing loss / no epistaxis /no swallowing problems Respiratory: no cough / no wheezing / no SOB / no hemoptysis Cardiovascular: no Chest pain / no lower extremity edema / no palpitation Abdomen: no pain / no nausea / no vomiting / no constipation Musculoskeletal: no joint pain / no muscle pain / no joint swelling Genitourinary: no dysuria / no incontinence / no urinary retention Neurologic: no focal weakness / no numbness/tingling / no ataxia Psychiatric: no depression symptoms / no anxiety / no insomnia Endocrine: no excessive thirst / no excessive urination Hematologic: no abnormal bleeding / no bruising / no LN swelling Skin: No rash / no pallor Physical Exam Physical Exam: Physical examination General patient is obese appears to be comfortable, not in acute distress HEENT: Atraumatic , normocephalic /no jaundice /no pallor /anicteric /no dry mucous membrane /normal external ear inspection Neck: Supple /no swelling /central trach Heart: S1/S2 normal/regular rate and rhythm/no gallop /no rub /no murmur Lungs: Clear to auscultation bilaterally/normal chest with expansion/no rhonchi/no rales/no wheezing/no use of accessory muscles of respiration Abdomen: Soft/nontender/no guarding/no rebound/no organomegaly/no pulsatile mass Musculoskeletal: No swelling/no edema/no tenderness/normal range of motion Neuro exam: Awake alert oriented 3/cranial nerves II through XII appear to be intact/sensation intact/moves all extremities/no abnormal movements Psychiatric evaluation: No depressed mood/normal affect Skin: No rash on exposed skin area/no erythema Extremity: Normal pulse/no pitting edema/no clubbing or cyanosis Endocrine/lymphatic: No obvious lymphadenopathy /no lymphedema Results & Data Vital Signs (Past 12 Hours) Vital Signs Temp Pulse Pulse Resp BP Pulse Ox 12/07/18 15:29 62 12/07/18 15:21 36.7 C 71 19 100/65 99 12/07/18 15:15 71 18 100/65 100 12/07/18 15:00 69 18 114/59 L 100 12/07/18 14:45 83 18 105/55 L 100 12/07/18 14:30 81 18 105/55 L 96 12/07/18 14:15 80 16 115/66 100 12/07/18 14:00 75 18 119/72 100 12/07/18 13:40 36.6 C 86 18 112/61 100 12/07/18 11:10 36.7 C 86 18 114/72 93 12/07/18 07:02 36.4 C L 86 19 114/65 97 12/07/18 04:03 36.9 C 92 H 18 109/65 95 PG Care Time/CCT Total # of Minutes Spent Total Time Spent with Patient: 35 minutes total time spent is greater than 50% in coordination of care (as documented) at patient's floor/unit and/or counseling patient/family discussion of care with nursing staff (1) Chest pain Chest pain type: unspecified Qualified Code(s): R07.9 - Chest pain, unspecified : Chest pain Qualifiers: Chest pain type: unspecified Qualified Code(s): R07.9 - Chest pain, unspecified
[2018-12-07 16:26] LABS: BUN Creatinine Ratio 13.6 (10-20); Calcium 8.7 mg/dl (8.5-10.1); Creatinine Clr Calc Pharmacy 21.6 ml/min; Est GFR (African American) 28.9; Est GFR (Non-African American) 24.9; Magnesium 2.1 mg/dl (1.8-2.4)
[2018-12-07 16:39] LABS: Beta-Hydroxybutyrate 2.31 mg/dl (0.2-2.81)
[2018-12-07] MEDS ORDERED: INSULIN ASPART 100 UNITS/ML 3 ML PEN SC STA (16:41)
[2018-12-07 17:24] LABS: Potassium 4.7 mmol/L (3.5-5.1)
[2018-12-07] MEDS: ACETYLCYSTEINE 600 MG CAP PO SCH (17:32)
[2018-12-07] MEDS: SODIUM CHLORIDE 0.9% 500 ML IV SCH (17:33)
[2018-12-07] MEDS: INSULIN GLARGINE SOLOSTAR 100 UNITS/ML 3 ML PEN SQ SCH (20:47)
[2018-12-07] MEDS: ATORVASTATIN 40 MG TAB PO SCH (20:50)
[2018-12-07] MEDS: ACETAMINOPHEN 325 MG TAB PO PRN (21:23)
[2018-12-08] MEDS: SODIUM CHLORIDE 0.9% 500 ML IV SCH (00:22)
[2018-12-08] MEDS ORDERED: ALBUT/IPRATROP 3MG/0.5MG NEB 3 ML VIAL NEB STA (03:47)
[2018-12-08] MEDS ORDERED: Nursing to Pharmacy Communication ONE (04:09)
[2018-12-08] MEDS: INSULIN ASPART 100 UNITS/ML 3 ML PEN SC SCH ×5 (04:13→20:44)
[2018-12-08] MEDS ORDERED: INSULIN ASPART 100 UNITS/ML 3 ML PEN SC ONE (04:30)
[2018-12-08] MEDS: ACETYLCYSTEINE 600 MG CAP PO SCH ×2 (06:26→16:59)
[2018-12-08] MEDS: LEVOTHYROXINE SODIUM 50 MCG TABLET PO SCH (06:26)
[2018-12-08] MEDS: CLOPIDOGREL BISULFATE 75 MG TAB PO SCH (08:17)
[2018-12-08] MEDS: CHOLECALCIFEROL 1,000 UNITS TAB PO SCH (08:17)
[2018-12-08] MEDS: CEROVITE ADV FORMULA TAB PO SCH ×2 (08:20→20:42)
[2018-12-08] MEDS: METOPROLOL SUCC 50MG EXT REL TAB PO SCH ×2 (08:20→20:42)
[2018-12-08] MEDS: ISOSORBIDE MONO EXTENDED REL 30 MG TABCR PO SCH (08:20)
[2018-12-08] MEDS: FLUTICASONE PROPIONATE NA SPR 16 GM BTL SCH ×2 (08:20→20:39)
[2018-12-08] MEDS: PANTOprazole 40 MG TAB PO SCH (08:20)
[2018-12-08] MEDS: GABAPENTIN 400 MG CAP PO SCH ×3 (08:20→20:42)
[2018-12-08] MEDS: dilTIAZem ER 180 MG CAPCR PO SCH (08:20)
[2018-12-08] MEDS: MAGNESIUM OXIDE 400 MG TAB PO SCH ×2 (08:20→20:42)
[2018-12-08] MEDS: APIXABAN 2.5 MG TAB PO SCH ×2 (08:21→20:42)
[2018-12-08] MEDS: ASPIRIN 81 MG ECTAB PO SCH (08:21)
[2018-12-08] MEDS: INSULIN ASPART 100 UNITS/ML 3 ML PEN SQ SCH ×2 (08:24→13:53)
[2018-12-08] MEDS: NYSTATIN OINT 15 GM TUBE EXT SCH ×2 (08:25→20:40)
--- NOTE | 2018-12-08 09:31 | Cardiology Progress Note ---
Date of Service December 08, 2018 Assessment & Plan (1) Acute coronary syndromes: The patient presented with an acute coronary syndrome. Her troponin peaked at 1.86. Cardiac catheterization yesterday noted a 90+% in stent restenoses. A 2.5 x 18 mm URBANO was placed difficulty. Residual LAD disease included 50% ostial, 50-60% stenosis just distal to the original stent, diffuse 60% mid stenosis, and diffuse mild distal disease. The dominant RCA noted a 30- 40% proximal and mid stenosis. Continue metoprolol, diltiazem and isosorbide mononitrate. Would continue Eliquis and Plavix indefinitely. Would discontinue low-dose aspirin after 1 week. (2) Elevated troponin: As above. (3) CAD (coronary artery disease): Status post URBANO to an in stent restenoses within the LAD. Residual disease as described above. (4) Diastolic congestive heart failure: Compensated at this time. Her typical dry weight is 166 pound with a trigger weight of 169 pounds. She typically takes Lasix 80 mg b.i.d.. Continue follow-up with in our [facility] Failure [facility]. Follow-up with me as scheduled January 13 in [place]. (5) Atrial fibrillation: Fortunately, ventricular response is well controlled on metoprolol, diltiazem, and digoxin. Subjective The patient is resting comfortably in the bedside chair without complaints of chest pain or dyspnea. Physical Exam Physical Exam: In general this is a well-developed well-nourished elderly white female in no acute distress. HEENT exam is negative. Neck is supple with full carotid upstrokes. There are no carotid bruits. Jugular venous pressure is flat at 90. There is no thyromegaly. Cardiovascular exam reveals a regular rhythm with a normal S1 and S2. No S3, S4, or murmurs are noted. Lungs are clear without rales, rhonchi, or wheezes. Abdomen is soft and nontender without bruits. Extremities reveal intact radial artery pulses bilaterally. There is no peripheral edema. Results & Data Vital Signs (Past 12 Hours) Vital Signs Temp Pulse Pulse Resp BP Pulse Ox 12/08/18 06:53 36.3 C L 85 20 150/84 H 100 12/08/18 04:03 86 16 99 12/08/18 02:00 36.4 C L 87 18 135/78 91 12/07/18 23:57 89 12/07/18 23:00 36.7 C 89 18 159/69 H 94 Laboratory Results Troponin I level peaked at 1.86. Electrolytes notice sodium of 139, potassium 4.7, chloride 101, bicarb 30, BUN 25, creatinine 1.86, and glucose of 274. Diagnostic Findings monitor and storage bin tender notes sinus rhythm with occasional PAC and PVC. PG Care Time/CCT Total # of Minutes Spent Total Time Spent with Patient: Total time spent is greater than 50% in coordination of care (as documented) at patient's floor/unit and/or counseling p atient: (1) Diastolic congestive heart failure Heart failure chronicity: acute Qualified Code(s): I50.31 - Acute diastolic (congestive) heart failure (2) Atrial fibrillation Atrial fibrillation type: permanent Qualified Code(s): I48.2 - Chronic atrial fibrillation
[2018-12-08] MEDS ORDERED: INSULIN GLARGINE SOLOSTAR 100 UNITS/ML 3 ML PEN SC ONE (13:30)
[2018-12-08] MEDS: DIGOXIN 0.125 MG TAB PO SCH (16:59)
[2018-12-08] MEDS ORDERED: CALCIUM CARBONATE 500 MG CHEWABLE TAB PO PRN (17:35)
[2018-12-08] MEDS ORDERED: SODIUM CHLORIDE 0.9% 1000ML 1,000 ML IV SCH (19:30)
--- NOTE | 2018-12-08 19:30 | Hospitalist Progress Note ---
Date of Service December 08, 2018 Assessment & Plan (1) Atrial fibrillation, rapid: Initially heart rate was 115, after 5 mg of metoprolol IV, heart rate is between 80 and 90 Continue Toprol-XL 50 mg twice daily, and oral Cardizem Remains stable (2) Chest pain: (3) Elevated troponin: (4) Non-STEMI (non-ST elevated myocardial infarction): Status post cardiac catheterization with Continue Nitropaste, apixaban, baby aspirin and Plavix. Control of atrial fibrillation heart rate. Marble Installer consult appreciated status post cardiac catheterization, summary is attached below 1. Severe single vessel coronary artery disease - 50% ostial LAD stenosis. - 90+% acute appearing proximal LAD in-stent restenosis. 50 to 60% earlymid segment after prior stent - diffuse 60% late-mid LAD diseas 2. Borderline intracardiac filling pressure 3. Successful PCI of proximal to mid LAD with single drug-eluting stent overlapping prior stent (2.5 x 18 mm Xience Aditi; postdilated with 2.75 NC Stable, currently no chest pain or mild agitation Instructed nursing staff if she gets maldigestion to do an EKG and patient (5) Acute kidney injury superimposed on chronic kidney disease: Continue continue holding Lasix Normal saline at 50 cc/h Mucomyst p.o. twice daily Monitor renal function (6) Chronic kidney disease, stage III (moderate): As above (7) Diabetes 1.5, managed as type 2: Continue sliding-scale insulin Increase Lantus to patient to regular home dose 20 units subcu, sliding scale insulin Hemoglobin A1c is 7 (8) Essential hypertension: Continue Toprol-XL and Cardizem Currently controlled Subjective Feeling slightly better, there is slight feeling of mild agitation, which how she did interpret her initial chest pain. I received 1 dose of Maalox and felt better, and instructed the nurse to page me if she ever gets any localization and to do an EKG Review of Systems Review of Systems: Review of system Constitutional: No fever / no chills / no sweats / no weakness / no fatigue Eyes: no blurring of vision / no eye pain / no discharge / no redness ENT: no hearing loss / no epistaxis /no swallowing problems Respiratory: no cough / no wheezing / no SOB / no hemoptysis Cardiovascular: no Chest pain / no lower extremity edema / no palpitation Abdomen: no pain / no nausea / no vomiting / no constipation Musculoskeletal: no joint pain / no muscle pain / no joint swelling Genitourinary: no dysuria / no incontinence / no urinary retention Neurologic: no focal weakness / no numbness/tingling / no ataxia Psychiatric: no depression symptoms / no anxiety / no insomnia Endocrine: no excessive thirst / no excessive urination Hematologic: no abnormal bleeding / no bruising / no LN swelling Skin: No rash / no pallor Physical Exam Physical Exam: Physical examination General patient appears to be comfortable, not in acute distress HEENT: Atraumatic , normocephalic /no jaundice /no pallor /anicteric /no dry mucous membrane /normal external ear inspection Neck: Supple /no swelling /central trach Heart: S1/S2 normal/regular rate and rhythm/no gallop /no rub /no murmur Lungs: Clear to auscultation bilaterally/normal chest with expansion/no rhonchi/no rales/no wheezing/no use of accessory muscles of respiration Abdomen: Soft/nontender/no guarding/no rebound/no organomegaly/no pulsatile mass Musculoskeletal: No swelling/no edema/no tenderness/normal range of motion Neuro exam: Awake alert oriented 3/cranial nerves II through XII appear to be i ntact/sensation intact/moves all extremities/no abnormal movements Psychiatric evaluation: No depressed mood/normal affect Skin: No rash on exposed skin area/no erythema Extremity: Normal pulse/no pitting edema/no clubbing or cyanosis Endocrine/lymphatic: No obvious lymphadenopathy /no lymphedema Results & Data Vital Signs (Past 12 Hours) Vital Signs Temp Pulse Pulse Resp BP BP Pulse Ox 12/08/18 19:04 36.4 C L 69 19 105/62 97 12/08/18 16:59 78 12/08/18 15:13 36.6 C 56 L 16 105/69 96 12/08/18 11:26 36.4 C L 78 18 140/83 97 PG Care Time/CCT Total # of Minutes Spent Total Time Spent with Patient: 35 minutes Total time spent is greater than 50% in coordination of care (as documented) at patient's floor/unit and/or counseling patient: (1) Chest pain Chest pain type: unspecified Qualified Code(s): R07.9 - Chest pain, unspecified
[2018-12-08 19:44] LABS: Hematocrit (blood only) 28.2 % (37-47); Hemoglobin 8.7 g/dL (12.0-16.0); Mean Corpuscular Volume 99.3 fL (80-100); Mean Platelet Volume 10.2 fL (7.4-10.4); Platelet Count 202 K/uL (130-400); RDW Coefficient of Variation 16.3 % (11.5-14.5); RDW Standard Deviation 57.9 fL (36.4-46.3); Red Blood Count 2.84 M/uL (4.2-5.4); White Blood Count 14.05 K/uL (4.8-10.8)
[2018-12-08 19:53] LABS: Mean Corpuscular Hgb Conc 30.9 g/dL (32-36)
[2018-12-08 20:11] LABS: Albumin Level 3.1 gm/dl (3.4-5.0); BUN Creatinine Ratio 20.4 (10-20); Creatinine Clr Calc Pharmacy 19.9 ml/min; Est GFR (African American) 25.7; Est GFR (Non-African American) 22.2; Potassium 4.5 mmol/L (3.5-5.1)
[2018-12-08 20:14] LABS: Bilirubin,Total 0.7 mg/dl (0.2-1); Globulin 3.1 gm/dl (2.5-4.0); Total Protein 6.2 gm/dl (6.4-8.2)
[2018-12-08] MEDS: ATORVASTATIN 40 MG TAB PO SCH (20:42)
[2018-12-08] MEDS: INSULIN GLARGINE SOLOSTAR 100 UNITS/ML 3 ML PEN SQ SCH (20:43)
[2018-12-09] MEDS: LEVOTHYROXINE SODIUM 50 MCG TABLET PO SCH (05:20)
[2018-12-09] MEDS: ACETYLCYSTEINE 600 MG CAP PO SCH ×2 (05:21→22:10)
[2018-12-09 07:14] LABS: Hematocrit (blood only) 29.7 % (37-47); Hemoglobin 9.1 g/dL (12.0-16.0); Mean Corpuscular Hgb Conc 30.6 g/dL (32-36); Mean Platelet Volume 10.3 fL (7.4-10.4); Nucleated RBC # (auto) 0.06 K/uL (0-0); Nucleated RBC % (auto) 0.5 %; Platelet Count 195 K/uL (130-400); RDW Coefficient of Variation 16.8 % (11.5-14.5); RDW Standard Deviation 59.3 fL (36.4-46.3); Red Blood Count 2.94 M/uL (4.2-5.4); White Blood Count 12.56 K/uL (4.8-10.8)
[2018-12-09 07:51] LABS: Albumin Level 3.2 gm/dl (3.4-5.0); BUN Creatinine Ratio 22.8 (10-20); Calcium 8.4 mg/dl (8.5-10.1); Creatinine Clr Calc Pharmacy 23.7 ml/min; Est GFR (African American) 31.8; Est GFR (Non-African American) 27.4; Magnesium 2.3 mg/dl (1.8-2.4); Potassium 4.3 mmol/L (3.5-5.1)
[2018-12-09] MEDS: MAGNESIUM OXIDE 400 MG TAB PO SCH ×2 (07:53→20:44)
[2018-12-09] MEDS: dilTIAZem ER 180 MG CAPCR PO SCH (07:53)
[2018-12-09] MEDS: FLUTICASONE PROPIONATE NA SPR 16 GM BTL SCH ×2 (07:53→20:44)
[2018-12-09] MEDS: PANTOprazole 40 MG TAB PO SCH (07:53)
[2018-12-09] MEDS: CLOPIDOGREL BISULFATE 75 MG TAB PO SCH (07:53)
[2018-12-09] MEDS: CHOLECALCIFEROL 1,000 UNITS TAB PO SCH (07:53)
[2018-12-09 07:54] LABS: Bilirubin,Total 1.2 mg/dl (0.2-1); Globulin 3.3 gm/dl (2.5-4.0); Total Protein 6.5 gm/dl (6.4-8.2)
[2018-12-09] MEDS: ASPIRIN 81 MG ECTAB PO SCH (07:54)
[2018-12-09] MEDS: METOPROLOL SUCC 50MG EXT REL TAB PO SCH ×2 (07:54→20:45)
[2018-12-09] MEDS: APIXABAN 2.5 MG TAB PO SCH ×2 (07:54→20:43)
[2018-12-09] MEDS: NYSTATIN OINT 15 GM TUBE EXT SCH ×2 (07:54→20:46)
[2018-12-09] MEDS: GABAPENTIN 400 MG CAP PO SCH ×3 (07:54→20:46)
[2018-12-09] MEDS: CEROVITE ADV FORMULA TAB PO SCH ×2 (07:56→20:45)
[2018-12-09] MEDS: INSULIN ASPART 100 UNITS/ML 3 ML PEN SC SCH ×4 (08:05→20:36)
[2018-12-09] MEDS ORDERED: FUROSEMIDE 10 MG/ML 10 ML VIAL IV ONE (09:41)
[2018-12-09] MEDS ORDERED: FUROSEMIDE 80 MG in SYRINGE 0 ML IV SCH (09:45)
[2018-12-09] MEDS: ISOSORBIDE MONO EXTENDED REL 30 MG TABCR PO SCH (09:49)
--- NOTE | 2018-12-09 09:56 | Cardiology Progress Note ---
Date of Service December 09, 2018 Assessment & Plan (1) Acute coronary syndromes: The patient presented with an acute coronary syndrome. Her troponin peaked at 1.86. Cardiac catheterization noted a 90% in stent restenoses. A 2.5 x 18 mm URBANO was placed difficulty. Residual LAD disease included 50% ostial, 50-60% stenosis just distal to the original stent, diffuse 60% mid stenosis, and diffuse mild distal disease. The dominant RCA noted a 30-40% proximal and mid stenosis. Continue metoprolol, diltiazem, isosorbide mononitrate, Eliquis, and Plavix. Would discontinue low-dose aspirin after 1 week. (2) Elevated troponin: As above. (3) CAD (coronary artery disease): Status post URBANO to an in-stent restenoses within the LAD. Residual disease as above. (4) Diastolic congestive heart failure: The patient is decompensated at this time. Would discontinue intravenous hydration and start Lasix 80 mg IV b.i.d.. Her typical dry weight is 166 pound with a trigger weight of 169 pounds. Follow-up with me as scheduled January 13 in [place]. (5) Atrial fibrillation: Fortunately, ventricular response is well controlled on metoprolol, diltiazem, and digoxin. Subjective Mrs. Porter is resting comfortably in bed, however, noted dyspnea last evening. Still feels dyspneic this morning. Denies chest discomfort. Physical Exam Physical Exam: In general this is a well-developed well-nourished elderly white female in no acute distress. HEENT exam is negative. Neck is supple with full carotid upstrokes. There are no carotid bruits. Jugular venous pressure is elevated at 10 cm of water at 90 degrees. There is no thyromegaly. Cardiovascular exam reveals a regular rhythm with a normal S1 and S2. No S3, S4, or murmurs are noted. Lungs note decreased breath sounds at the bases. Abdomen is soft and nontender without bruits. Extremities reveal intact radial artery pulses bilaterally. There is no peripheral edema. Results & Data Vital Signs (Past 12 Hours) Vital Signs Temp Pulse Resp BP Pulse Ox 12/09/18 07:04 36.9 C 88 18 151/83 H 93 12/09/18 04:00 36.7 C 80 16 137/81 95 12/08/18 23:35 36.9 C 77 19 131/82 95 PG Care Time/CCT Total # of Minutes Spent Total Time Spent with Patient: Total time spent is greater than 50% in coordination of care (as documented) at patient's floor/unit and/or counseling patient: (1) Diastolic congestive heart failure Heart failure chronicity: acute Qualified Code(s): I50.31 - Acute diastolic (congestive) heart failure (2) Atrial fibrillation Atrial fibrillation type: permanent Qualified Code(s): I48.2 - Chronic atrial fibrillation
[2018-12-09] MEDS: DIGOXIN 0.125 MG TAB PO SCH (16:12)
[2018-12-09] MEDS ORDERED: Nursing to Pharmacy Communication ONE (20:09)
[2018-12-09] MEDS ORDERED: POTASSIUM CHLORIDE 20 MEQ TABCR PO ONE (20:15)
[2018-12-09] MEDS: INSULIN GLARGINE SOLOSTAR 100 UNITS/ML 3 ML PEN SQ SCH (20:36)
[2018-12-09] MEDS: ATORVASTATIN 40 MG TAB PO SCH (20:45)
--- NOTE | 2018-12-09 20:48 | Hospitalist Progress Note ---
Date of Service December 09, 2018 Assessment & Plan (1) Atrial fibrillation, rapid: On admission initially heart rate was 115, after 5 mg of metoprolol IV, heart rate is between 80 and 90 Continue Toprol-XL 50 mg twice daily, and oral Cardizem Remains stable (2) Chest pain: (3) Elevated troponin: (4) Non-STEMI (non-ST elevated myocardial infarction): Status post cardiac catheterization with Continue Nitropaste, apixaban, baby aspirin and Plavix. Control of atrial fibrillation heart rate. Circuit Board Inspector consult appreciated status post cardiac catheterization, summary is attached below 1. Severe single vessel coronary artery disease - 50% ostial LAD stenosis. - 90+% acute appearing proximal LAD in-stent restenosis. 50 to 60% earlymid segment after prior stent - diffuse 60% late-mid LAD diseas 2. Borderline intracardiac filling pressure 3. Successful PCI of proximal to mid LAD with single drug-eluting stent overlapping prior stent (2.5 x 18 mm Xience Aditi; postdilated with 2.75 NC Currently no further chest pain (5) Acute kidney injury superimposed on chronic kidney disease: Follow-up diastolic congestive heart failure, restarted Lasix IV, will use with cautious Mucomyst p.o. twice daily Monitor renal function (6) Chronic kidney disease, stage III (moderate): As above (7) Diabetes 1.5, managed as type 2: Continue sliding-scale insulin Increase Lantus to patient to regular home dose 20 units subcu, sliding scale insulin Hemoglobin A1c is 7 (8) Essential hypertension: Continue Toprol-XL and Cardizem Currently controlled (9) Acute on chronic diastolic congestive heart failure: Secondary to IV fluid hydration Continue Lasix IV platelets with cautious due to acute kidney injury Subjective Semisitting in bed, appears to be comfortable, complained of shortness of breath last night Review of Systems Review of Systems: Review of system Constitutional: No fever / no chills / no sweats / no weakness / no fatigue Eyes: no blurring of vision / no eye pain / no discharge / no redness ENT: no hearing loss / no epistaxis /no swallowing problems Respiratory: Positive shortness of breath, no cough no hemoptysis Cardiovascular: no Chest pain / no lower extremity edema / no palpitation Abdomen: no pain / no nausea / no vomiting / no constipation Musculoskeletal: no joint pain / no muscle pain / no joint swelling Genitourinary: no dysuria / no incontinence / no urinary retention Neurologic: no focal weakness / no numbness/tingling / no ataxia Psychiatric: no depression symptoms / no anxiety / no insomnia Endocrine: no excessive thirst / no excessive urination Hematologic: no abnormal bleeding / no bruising / no LN swelling Skin: No rash / no pallor Physical Exam Physical Exam: Physical examination General patient appears to be comfortable, not in acute distress HEENT: Atraumatic , normocephalic /no jaundice /no pallor /anicteric /no dry mucous membrane /normal external ear inspection Neck: Supple /no swelling /central trach Heart: S1/S2 normal/regular rate and rhythm/no gallop /no rub /no murmur Lungs: Poor inspiratory effort, bilateral basal Rales Abdomen: Soft/nontender/no guarding/no rebound/no organomegaly/no pulsatile mass Musculoskeletal: No swelling/no edema/no tenderness/normal range of motion Neuro exam: Awake alert oriented 3/cranial nerves II through XII appear to be intact/sensation intact/moves all extremities/no abnormal movements Psychiatric evaluation: No depressed mood/normal affect Skin: No rash on exposed skin area/no erythema Extremity: Normal pulse/no pitting edema/no clubbing or cyanosis Endocrine/lymphatic: No obvious lymphadenopathy /no lymphedema Results & Data Vital Signs (Past 12 Hours) Vital Signs Temp Pulse Pulse Resp BP BP Pulse Ox 12/09/18 18:47 36.8 C 67 19 122/71 100 12/09/18 16:12 70 12/09/18 15:28 36.6 C 77 18 120/73 99 12/09/18 10:59 36.8 C 73 18 122/63 100 PG Care Time/CCT Total # of Minutes Spent Total Time Spent with Patient: Total time spent is greater than 50% in coordination of care (as documented) at patient's floor/unit and/or counseling patient: (1) Chest pain Chest pain type: unspecified Qualified Code(s): R07.9 - Chest pain, unspecified
[2018-12-09] MEDS ORDERED: FUROSEMIDE 40 MG in SYRINGE 0 ML IV SCH (21:00)
[2018-12-09] MEDS: ACETAMINOPHEN 325 MG TAB PO PRN (21:12)
[2018-12-09] MEDS: FUROSEMIDE 40 MG in SYRINGE 0 ML IV SCH (22:28)
[2018-12-10] MEDS: LEVOTHYROXINE SODIUM 50 MCG TABLET PO SCH (06:07)
[2018-12-10 07:09] LABS: Hematocrit (blood only) 29.2 % (37-47); Hemoglobin 8.8 g/dL (12.0-16.0); Mean Corpuscular Hgb Conc 30.1 g/dL (32-36); Mean Corpuscular Volume 100.3 fL (80-100); Mean Platelet Volume 10.4 fL (7.4-10.4); Platelet Count 172 K/uL (130-400); RDW Coefficient of Variation 16.7 % (11.5-14.5); RDW Standard Deviation 58.6 fL (36.4-46.3); Red Blood Count 2.91 M/uL (4.2-5.4); White Blood Count 5.55 K/uL (4.8-10.8)
[2018-12-10 07:20] LABS: BUN Creatinine Ratio 25.6 (10-20); Calcium 8.2 mg/dl (8.5-10.1); Creatinine Clr Calc Pharmacy 28.3 ml/min; Est GFR (African American) 39.7; Est GFR (Non-African American) 34.3; Magnesium 2.1 mg/dl (1.8-2.4); Potassium 3.5 mmol/L (3.5-5.1)
[2018-12-10] MEDS: GABAPENTIN 400 MG CAP PO SCH ×2 (08:42→14:45)
[2018-12-10] MEDS: FLUTICASONE PROPIONATE NA SPR 16 GM BTL SCH (08:42)
[2018-12-10] MEDS: METOPROLOL SUCC 50MG EXT REL TAB PO SCH (08:42)
[2018-12-10] MEDS: FUROSEMIDE 40 MG in SYRINGE 0 ML IV SCH (08:42)
[2018-12-10] MEDS: ISOSORBIDE MONO EXTENDED REL 30 MG TABCR PO SCH (08:42)
[2018-12-10] MEDS: CLOPIDOGREL BISULFATE 75 MG TAB PO SCH (08:43)
[2018-12-10] MEDS: PANTOprazole 40 MG TAB PO SCH (08:43)
[2018-12-10] MEDS: MAGNESIUM OXIDE 400 MG TAB PO SCH (08:43)
[2018-12-10] MEDS: CEROVITE ADV FORMULA TAB PO SCH (08:43)
[2018-12-10] MEDS: CHOLECALCIFEROL 1,000 UNITS TAB PO SCH (08:43)
[2018-12-10] MEDS: dilTIAZem ER 180 MG CAPCR PO SCH (08:44)
[2018-12-10] MEDS: NYSTATIN OINT 15 GM TUBE EXT SCH (08:44)
[2018-12-10] MEDS: ASPIRIN 81 MG ECTAB PO SCH (08:44)
[2018-12-10] MEDS: ACETYLCYSTEINE 600 MG CAP PO SCH (08:44)
[2018-12-10] MEDS: APIXABAN 2.5 MG TAB PO SCH (08:44)
[2018-12-10] MEDS: INSULIN ASPART 100 UNITS/ML 3 ML PEN SC SCH ×2 (08:49→12:57)
--- NOTE | 2018-12-10 09:39 | Cardiology Progress Note ---
Date of Service December 10, 2018 Assessment & Plan (1) Acute coronary syndromes: Cardiac catheterization at time of presentation noted a 90% in stent restenoses. A 2.5 x 18 mm URBANO was placed difficulty. Residual LAD disease included 50% ostial, 50-60% stenosis just distal to the original stent, diffuse 60% mid stenosis, and diffuse mild distal disease. The dominant RCA noted a 30- 40% proximal and mid stenosis. Continue metoprolol, diltiazem, isosorbide mononitrate, Eliquis, and Plavix. Would discontinue low-dose aspirin after 1 week. (2) Elevated troponin: Troponin peaked at 1.86. (3) CAD (coronary artery disease): Status post URBANO to an in-stent restenoses within the LAD. [place] vessel disease as above. (4) Diastolic congestive heart failure: The patient diuresed well with intravenous Lasix yesterday. Her typical dry weight is 166 pound with a trigger weight of 169 pounds. Follow-up with me as scheduled January 13 in [place]. (5) Atrial fibrillation: Ventricular response is well controlled on metoprolol, diltiazem, and digoxin. Subjective The patient is resting comfortably in bed without complaints of chest pain or dyspnea. She is anxious for hospital discharge. Physical Exam 2 Physical Exam: In general this is a well-developed well-nourished elderly white female in no acute distress. HEENT exam is negative. Neck is supple with full carotid upstrokes. There are no carotid bruits. Jugular venous pressure is flat at 90 degrees. There is no thyromegaly. Cardiovascular exam reveals a regular rhythm with a normal S1 and S2. No S3, S4, or murmurs are noted. Lungs note decreased breath sounds at the bases. Abdomen is soft and nontender without bruits. Extremities reveal intact radial artery pulses bilaterally. There is no peripheral edema. Results & Data Vital Signs (Past 12 Hours) Vital Signs Temp Pulse Resp BP BP Pulse Ox 12/10/18 07:47 36.4 C L 68 20 120/72 99 12/10/18 03:55 36.4 C L 64 16 119/77 99 12/09/18 23:05 36.9 C 73 20 119/55 L 96 Diagnostic Findings threat monitoring analyst is benign. PG Care Time/CCT Total # of Minutes Spent Total Time Spent with Patient: Total time spent is greater than 50% in coordination of care (as documented) at patient's floor/unit and/or counseling patient: (1) Diastolic congestive heart failure Heart failure chronicity: acute Qualified Code(s): I50.31 - Acute diastolic (congestive) heart failure (2) Atrial fibrillation Atrial fibrillation type: permanent Qualified Code(s): I48.2 - Chronic atrial fibrillation
[2018-12-10 11:20] VITALS: BP 117/71; PULSE 95; TEMP 97.7; O2SAT 94
--- NOTE | 2018-12-10 19:59 | Discharge Summary ---
Date of Service December 10, 2018 Admission HPI Per Admitting Provider 83-year-old female with past medical history of chronic atrial fibrillation on apixaban, chronic kidney disease stage III, chronic anemia, diabetes mellitus on insulin, COPD, GERD, essential hypertension, diastolic congestive heart failure/chronic, dyslipidemia, hypothyroidism and recent admission to a hospital in [place] status post PCI and stenting of unknown coronary, patient said main coronary. She had patient is on apixaban for atrial fibrillation and Plavix for her coronary stents. Today she was in her regular state of health when she developed acute onset substernal chest pain when she woke up at 7 AM, squeezing in nature described as heaviness, referred to left side of the chest and right arm with right hand numbness, pain was intermittent kept subsiding and coming back, especially every time she tries to go to urinate. Finally her convinced her to come to the hospital chest pain partially resolved with sublingual nitro. And then significantly improved with morphine. ED physician noted mild tachycardia in the range of 115, she was giving metoprolol 5 mg IV which helped with chest pain. Her chest x-ray was clear, oxygen saturation was 98% on room air. EKG showed nonspecific ST-T wave changes/A. fib. Her troponin was 0.06, patient will be admitted for further evaluation and management. Primary Care Provider: Phillip Montana MD Principal Diagnosis Atrial fibrillation, with rapid ventricular response on admission Chest pain Non-STEMI (non-ST elevated myocardial infarction): Severe single vessel coronary artery disease Successful PCI of proximal to mid LAD with single drug-eluting stent overlapping prior stent Acute kidney injury superimposed on chronic kidney Chronic kidney disease, stage III (moderate): Diabetes 1.5, managed as type 2: Essential hypertension: Acute on chronic diastolic congestive heart failure Discharge Data Allergies Allergy/AdvReac Type Severity Reaction Status Date / Time shellfish derived Allergy Severe ANAPHYLAXIS Verified 11/22/18 16:14 iodine Allergy Intermediate ANAPHYLAXIS Verified 11/22/18 16:14 lisinopril Allergy Verified 11/22/18 16:14 oxybutynin [From Ditropan] Allergy Verified 11/22/18 16:14 sertraline [From Zoloft] Allergy Verified 11/22/18 16:14 paroxetine AdvReac Unknown GI UPSET Verified 11/22/18 16:14 Consultations 12/06/18 19:14 ED Decision to Admit Stat 12/06/18 21:25 Consult Cardiology Routine 12/07/18 13:31 Consult Cardiac Rehabilitation Routine Procedures Performed Operation Date: 12/07/18 11:00 Actual Procedures p Cath, Left with Cors and Vent - Guille Miller MD s IVUS Coronary Single Vessel - Guille Miller MD s Drug Eluting Stent SGl Vessel - Guille Miller MD s Cineradiography w/Routine Exam - Guille Miller MD Ordered Studies 12/07/18 09:44 CL Cath Imgs for PACS use only Stat 12/07/18 13:27 CL IVUS Coronary Single Vessel Routine Hospital Course (1) Atrial fibrillation, rapid: On admission initially heart rate was 115, after 5 mg of metoprolol IV, heart rate is between 80 and 90 Continued Toprol-XL 50 mg twice daily, digoxin and oral Cardizem Remains stable She was discharged on the same dose (2) Chest pain: (3) Elevated troponin: (4) Non-STEMI (non-ST elevated myocardial infarction): Status post cardiac catheterization with Continue Nitropaste, apixaban, baby aspirin and Plavix. Control of atrial fibrillation heart rate. Farm Machine Operator consult appreciated status post cardiac catheterization, summary is attached below 1. Severe single vessel coronary artery disease - 50% ostial LAD stenosis. - 90+% acute appearing proximal LAD in-stent restenosis. 50 to 60% earlymid segment after prior stent - diffuse 60% late-mid LAD diseas 2. Borderline intracardiac filling pressure 3. Successful PCI of proximal to mid LAD with single drug-eluting stent overlapping prior stent (2.5 x 18 mm Xience Aditi; postdilated with 2.75 NC Currently no further chest pain Discharged on Plavix and aspirin, did well (5) Acute kidney injury superimposed on chronic kidney disease: Initially patient was giving IV fluid due to dehydration and acute kidney injury Developed diastolic congestive heart failure, restarted Lasix IV, will use with cautious Mucomyst p.o. twice daily x3 days Monitor renal function that slowly improved (6) Chronic kidney disease, stage III (moderate): As above (7) Diabetes 1.5, managed as type 2: Continue sliding-scale insulin Increase Lantus to patient to regular home dose 20 units subcu, sliding scale insulin Hemoglobin A1c is 7 (8) Essential hypertension: Continue Toprol-XL and Cardizem Currently controlled (9) Acute on chronic diastolic congestive heart failure: Secondary to IV fluid hydration that were given after cardiac cath IV fluids were stopped and she was started on Lasix IV platelets with cautious due to acute kidney injury Switch upon discharge to oral Lasix, did really well currently of oxygen and stable for discharge Total Time Total Time Spent Total Time Spent (In Minutes): 35 minutes total time spent is greater than 50% in coordination of care (as documented) at patient's floor/unit and/or counseling patient/family discussion of care with nursing staff Discharge Plan Discharge Items Patient Disposition: Home - Home Health Services Reason For Visit: CHEST PAIN Discharge Diagnosis: Atrial fibrillation, with rapid ventricular response on admission Chest pain Non-STEMI (non-ST elevated myocardial infarction): Severe single vessel coronary artery disease Successful PCI of proximal to mid LAD with single drug-eluting stent overlapping prior stent Acute kidney injury superimposed on chronic kidney Chronic kidney disease, stage III (moderate): Diabetes 1.5, managed as type 2: Essential hypertension: Acute on chronic diastolic congestive heart failure Discharge Goals: Decrease discomfort and Improve function Activity: Resume your previous activity Lifting: Gradually increase as tolerated Bathing: May shower/bathe in 3 days Sexual Activity: When tolerated Weightbearing: Full weightbearing Non-emergency contact: Primary Care Provider and Farm Machine Operator Call non-emergency contact if: you have any medication questions Follow-up/Referrals: Phillip Montana MD [Primary Care Provider] - 12/16/18 5:30 pm (Please, follow up with Dr. Montana on December 16 at 5:30 pm. *If you need to change this appointment, call the office at [phone].) Madelaine Rothman PA-C [Physician In Store Demonstrator] - 12/14/18 10:00 am (Please, follow up at [facility] Cardiology Office / [facility]F Clinic with Idalmis Rothman PA-C on ThursdayDecember 14 at 10:00 am. *The office is located in [address] of [facility] [place] [facility]. This is the big building next to this [facility]. If you need to change this appointment, call the office at [phone].) Diet: Carb Consistent or DM2 and Low Sodium (2gm) Fluids: 1500ml (6 cups) Other Ambulatory Orders: Basic Metabolic Panel (Routine) Timeframe: 1 Week Location: Determined by Patient Ordered By: Armond Jimenez Provider Instructions: You have been treated for fluid overload in your body take your weight daily, if you gain more than 3 pounds for 2 days in a row call your family doctor try to restrict your salt use as much as possible (no more than 2gms per day) try to restrict your fluid intake to 5-6 cups of water/fluid per day Take 1 baby aspirin for 1 week only Obtain renal function in 1 week and please follow-up on the results with your primary care physician, your Lasix dose might need to be adjusted Prescriptions: New aspirin [Ecotrin Low Strength] 81 mg Tablet,Delayed Release (Dr/Ec) 81 mg PO QAM 7 Days Qty: 7 RF: 0 Continued atorvastatin 80 mg tablet 80 mg PO HS 90 Days Qty: 90 RF: 2 metoprolol succinate 50 mg tablet extended release 24 hr 100 mg PO BID Qty: 360 RF: 3 Nucynta 50 mg tablet 50 mg PO BID PRN (Reason: pain) Qty: 60 RF: 0 clopidogrel [Plavix] 75 mg tablet 75 mg PO DAILY 30 Days Qty: 30 RF: 2 levothyroxine 50 mcg tablet 50 mcg PO QAM 30 Days Qty: 30 RF: 2 diltiazem HCl 180 mg tablet extended release 24 hr 180 mg PO DAILY Qty: 90 RF: 0 Lantus Solostar U-100 Insulin 100 unit/mL (3 mL) insulin pen 25 units subcut HS Qty: 15 RF: 3 Novolog Flexpen U-100 Insulin 100 unit/mL (3 mL) insulin pen 3 units subcut TIDM Qty: 15 RF: 3 furosemide 40 mg tablet 80 mg PO BID RF: 0 albuterol sulfate 90 mcg/actuation HFA aerosol inhaler 2 puffs inhalation Q4H PRN (Reason: shortness of breath) Qty: 2 RF: 0 Eliquis 2.5 mg tablet 2.5 mg PO BID Qty: 60 RF: 2 nystatin 100,000 unit/gram ointment 1 appln topical BID Qty: 2 RF: 0 isosorbide mononitrate 30 mg tablet extended release 24 hr 30 mg PO QAM RF: 0 acetaminophen [Tylenol Arthritis Pain] 650 mg Tablet Extended Release 2 tabs PO UD PRN (Reason: Pain) RF: 0 pantoprazole 40 mg tablet,delayed release (DR/EC) 40 mg PO QAM RF: 0 fluticasone propionate 50 mcg/actuation spray,suspension 1 spray intranasal BID RF: 0 cholecalciferol (vitamin D3) [Vitamin D3] 1,000 unit Tablet 1,000 unit PO QAM RF: 0 PreserVision AREDS-2 [id number] Capsule 1 tab PO BID RF: 0 cyanocobalamin (vitamin B-12) [Vitamin B-12] 1,000 mcg Tablet 1,000 mcg PO QAM RF: 0 diclofenac sodium [Voltaren] 1 % gel 2 g TOPICAL HS RF: 0 magnesium oxide 400 mg magnesium capsule 400 mg PO BID RF: 0 digoxin 125 mcg tablet 125 mcg PO Q2D RF: 0 potassium chloride [Klor-Con M20] 20 mEq tablet,ER particles/crystals 40 meq PO QAM RF: 0 gabapentin 300 mg Capsule 300 mg PO TID RF: 0 potassium chloride 20 mEq tablet extended release 20 meq PO DAILY RF: 0 Discontinued allopurinol 300 mg tablet 300 mg PO QAM Qty: 30 RF: 5 benzonatate 100 mg capsule 100 mg PO TID PRN (Reason: cough) RF: 0 ranitidine HCl 150 mg Tablet 150 mg PO HS RF: 0 gabapentin 400 mg Capsule 400 mg PO TID RF: 0 Stand-Alone Forms: [facility] Discharge Orders: Discharge Order (Routine); Ordered 12/10/18 Ordered By: Armond Donohue Admission Data Admit Date/Time: 12/06/18 19:33 Attending Provider: Armond Mojica Admit Provider: Armond Mojica Primary Care Provider: Phillip Montana Other Providers: Armond Mojica ; Nate Roland Service: Telemetry Other Interventions: Discharge Summary Assessment (RN) Last Done: 12/10/18 14:14 DC Date/Time DO NOT enter until pt leaves facility: 12/10/18 15:10
== END 2018-12-10 15:10 | disposition home health service (06) | DRG 246 ==
LOC: ED 17:15 → 2S 19:33
DX: Z68.33 Body mass index [BMI] 33.0-33.9, adult; Z95.5 Presence of coronary angioplasty implant and graft; E78.5 Hyperlipidemia, unspecified; Z79.02 Long term (current) use of antithrombotics/antiplatelets; Z79.01 Long term (current) use of anticoagulants; Z79.4 Long term (current) use of insulin; E13.22 Other specified diabetes mellitus with diabetic chronic kidney disease; N18.3 Chronic kidney disease, stage 3 (moderate); J44.9 Chronic obstructive pulmonary disease, unspecified; I25.2 Old myocardial infarction; Z88.8 Allergy status to other drugs, medicaments and biological substances; I21.4 Non-ST elevation (NSTEMI) myocardial infarction; D63.1 Anemia in chronic kidney disease; Y71.2 Prosthetic and other implants, materials and accessory cardiovascular devices associated with adverse incidents; Z91.013 Allergy to seafood; I13.0 Hypertensive heart and chronic kidney disease with heart failure and stage 1 through stage 4 chronic kidney disease, or unspecified chronic kidney disease; I34.0 Nonrheumatic mitral (valve) insufficiency; Z79.899 Other long term (current) drug therapy; I25.10 Atherosclerotic heart disease of native coronary artery without angina pectoris; N17.9 Acute kidney failure, unspecified; E66.9 Obesity, unspecified; I48.2 Chronic atrial fibrillation; Z91.048 Other nonmedicinal substance allergy status; G47.33 Obstructive sleep apnea (adult) (pediatric); T82.855A Stenosis of coronary artery stent, initial encounter; I50.33 Acute on chronic diastolic (congestive) heart failure

== ENCOUNTER 2018-12-23 12:30 | Inpatient (IN) ==
[2018-12-23] MEDS ORDERED: SODIUM CHLORIDE 0.9% 1000ML 500 ML IV ONE (12:43)
[2018-12-23 13:16] LABS: Hematocrit (blood only) 31.5 % (37-47); Hemoglobin 9.7 g/dL (12.0-16.0); Mean Corpuscular Hemoglobin 30.8 pg (25-34); Mean Corpuscular Hgb Conc 30.8 g/dL (32-36); Mean Platelet Volume 9.5 fL (7.4-10.4); Nucleated RBC # (auto) 0.11 K/uL (0-0); Nucleated RBC % (auto) 0.7 %; Platelet Count 163 K/uL (130-400); RDW Coefficient of Variation 16.5 % (11.5-14.5); RDW Standard Deviation 59.5 fL (36.4-46.3); Red Blood Count 3.15 M/uL (4.2-5.4); White Blood Count 14.76 K/uL (4.8-10.8)
[2018-12-23 13:29] LABS: INR 1.2 (0.9-1.1); Partial Thromboplastin Ratio 1.1; Partial Thromboplastin Time 29.6 Seconds (21.0-31.0); Prothrombin Time 11.8 Seconds (9.0-12.0)
[2018-12-23 13:34] LABS: Appearance Urine Cloudy (Clear); Bacteria Urine Automated 3+ (Negative); Bilirubin Urine Negative (Negative); Blood Urine Negative (Negative); Color Urine Yellow; Glucose Urine UA Negative (Negative); Ketones Urine Negative (Negative); Leukocyte Esterase Urine 2+ (Negative); Nitrite Urine Positive (Negative); Protein Urine Trace (Negative); RBC Urine Automated 0-4 /hpf (0-4); Specific Gravity Urine 1.013 (1.000-1.030); Urobilinogen Urine Negative (Negative); WBC Urine Automated >30 /hpf (0-5)
[2018-12-23 13:34] LABS: Basophils # (auto) 0.01 K/uL (0-0.2); Basophils % (auto) 0.1 %; Eosinophils # (auto) 0.01 K/uL (0-0.5); Eosinophils % (auto) 0.1 %; Immature Granulocytes # (auto) 0.12 K/uL (0.00-0.02); Immature Granulocytes % (auto) 0.8 %; Lymphocytes # (auto) 0.27 K/uL (1.2-3.4); Lymphocytes % (auto) 1.8 %; Monocytes % (auto) 4.1 %; Neutrophils # (auto) 13.75 K/uL (1.4-6.5); Neutrophils % (auto) 93.1 %; Ovalocytes 1+; Polychromasia 1+
[2018-12-23 13:35] LABS: Alanine Aminotransferase 18 U/L (12-78); Albumin Level 3.3 gm/dl (3.4-5.0); Aspartate Aminotransferase 24 U/L (15-37); Blood Urea Nitrogen 31 mg/dl (7-18); Calcium 8.5 mg/dl (8.5-10.1); Carbon Dioxide 26 mmol/L (21-32); Chloride 98 mmol/L (98-107); Est GFR (African American) 25.7; Est GFR (Non-African American) 22.2; Glucose 247 mg/dl (70-99); Potassium 4.1 mmol/L (3.5-5.1); Sodium 139 mmol/L (136-145)
[2018-12-23 13:39] LABS: Alkaline Phosphatase 98 U/L (45-117); Bilirubin,Total 2.9 mg/dl (0.2-1); Globulin 3.5 gm/dl (2.5-4.0); Total Protein 6.8 gm/dl (6.4-8.2)
--- NOTE | 2018-12-23 13:39 | XRay Report ---
XR chest 1V portable CLINICAL HISTORY: Sepsis COMPARISON STUDY: 12/06/2018 FINDINGS: The heart is mildly enlarged. There is mild left hilar prominence likely vascular. There is no lobar consolidation. There are no pleural effusions. There is minor basilar atelectatic change.[ IMPRESSION: Mild cardiomegaly. No evidence of focal pulmonary consolidation Electronically signed by: Yogesh French M.D. 12/23/2018 1:38 PM
[2018-12-23] MEDS ORDERED: cefTRIAXone SODIUM 1,000 MG/50 ML BAG IV STA (13:52)
[2018-12-23] MEDS ORDERED: SODIUM CHLORIDE 0.9% 1000ML 1,000 ML IV ONE (13:52)
--- NOTE | 2018-12-23 13:52 | CT Scan Report ---
CT abd pelvis wo con CT DOSE: 494.96 mGy.cm HISTORY: Pain. Cough. fever abd pain w/ cough TECHNIQUE: Multiaxial CT images of the abdomen and pelvis were performed without contrast. A dose lo wering technique was utilized adhering to the principles of ALARA. COMPARISON STUDY: None. FINDINGS: Fibrotic/postoperative changes right breast. Lung bases are clear. Liver spleen and pancrea s are grossly unremarkable. The kidneys are considered negative for hydronephrosis. Mild chronic prominence of the right renal pe lvis is again noted. Bowel pattern is nonobstructive. Bladder is midline. There is a stimulator over the right gluteal region. IMPRESSION: No acute process in the abdomen or pelvis. The above report was generated using voice recognition software. It may contain grammatical, syntax or spelling errors. Electronically signed by: Perry Weiss M.D. 12/23/2018 1:51 PM
[2018-12-23] MEDS ORDERED: ACETAMINOPHEN 500 MG TAB PO STA (13:53)
[2018-12-23] MEDS ORDERED: ALUMINUM/MAGNESIUM SUSP 30 ML UDC PO PRN (15:34)
[2018-12-23] MEDS ORDERED: MAGNESIUM HYDROXIDE SUSP 30 ML UDC PO PRN (15:34)
[2018-12-23] MEDS ORDERED: ZOLPIDEM TARTRATE 5 MG TAB PO PRN (15:34)
[2018-12-23] MEDS ORDERED: POLYETHYLENE (MIRALAX) 17 GM PACK PO PRN (15:34)
[2018-12-23] MEDS ORDERED: NITROGLYCERIN SL 0.4 MG/TAB TAB SL PRN (15:34)
[2018-12-23] MEDS ORDERED: DICLOFENAC SOD 1% GEL 100 GM TUBE EXT PRN (15:35)
[2018-12-23] MEDS ORDERED: NYSTATIN OINT 15 GM TUBE EXT PRN (15:35)
[2018-12-23] MEDS ORDERED: ALBUTEROL HFA 8 GM INHALER INH PRN (15:35)
[2018-12-23] MEDS ORDERED: ACETAMINOPHEN PO PRN (15:35)
[2018-12-23] MEDS ORDERED: VANCOMYCIN CONSULT ACTIVE PRN (15:37)
[2018-12-23] MEDS ORDERED: SODIUM CHLORIDE 0.9% 1000ML 250 ML IV ONE (15:37)
[2018-12-23] MEDS ORDERED: METOPROLOL TARTRATE 1 MG/ML VIAL IV STA (15:40)
[2018-12-23] MEDS ORDERED: DIGOXIN 0.125 MG TAB PO SCH (15:45)
[2018-12-23] MEDS ORDERED: CEFEPIME 1,000 MG in SYRINGE 0 ML IV SCH (15:45)
--- NOTE | 2018-12-23 15:53 | History & Physical Report ---
Date of Service December 23, 2018 Assessment & Plan (1) Sepsis: Severe sepsis present on admission secondary to complicated UTI Admit to PCU/telemetry Generous IV fluid hydration, already received 1.5 L in ED We will add another 1 L bolus normal saline Blood pressure has been always normal, will not give any extra boluses as patient has history of diastolic congestive heart failure We will keep her on 75 cc/h normal saline after the above bolus is finished/total 2.5 L boluses Blood cultures/urine cultures Lactic acid was 7.7, will continue to follow up serial lactic acid Received 1 g of Rocephin in the ED We will stop Rocephin and start her on cefepime/Vanco Lactobacillus to prevent C. difficile CT scan abdomen reviewed, no hydro-or perirenal abscess Further recommendation will follow Despite of slight confusion, patient is able to answer questions appropriately and follow commands appropriately When asked about her CODE STATUS she requested to be full code Nurse was present in the room. Patient is in Eliquis for A. fib, will add SCD boots for DVT prophylaxis (2) Complicated UTI (urinary tract infection): As mentioned above (3) Essential hypertension: Currently blood pressure is slightly elevated Continue Cardizem and metoprolol Continue IV fluid hydration (4) Diabetes 1.5, managed as type 2: Lowered the dose of Lantus as I expect patient oral intake to be decreased Her home dose is 25 units daily, will give her only 15 units daily here We will supplement with sliding scale insulin (5) Acute kidney injury superimposed on chronic kidney disease: Baseline creatinine is 1.7, creatinine today is 2 Continue IV fluid hydration Check labs in a.m. (6) Non-STEMI (non-ST elevated myocardial infarction): That was last admission, status post LAD stent in 12/08 Continue Plavix (7) Atrial fibrillation, rapid: 1 dose of Lopressor 2.5 mg IV now Continue metoprolol will receive a dose today Continue Cardizem Continue digoxin Controlled fever and sepsis (8) Hyperlipidemia: Continue Lipitor (9) GERD (gastroesophageal reflux disease): Continue Protonix (10) Chronic diastolic congestive heart failure: Not in exacerbation Okay to give fluids cautiously History of Present Illness 83 years old female with past medical history of chronic atrial fibrillation on apixaban, essential hypertension well-controlled, diabetes mellitus type 2 on insulin, COPD, GERD, diastolic congestive heart failure, dyslipidemia, hypothyroidism, chronic kidney disease stage III, CAD status post recent stent of proximal to mid LAD with drug-eluting stent on 12/08/2018. Patient was discharged from the hospital on 12/10/2018 after medication adjustment and LAD stenting. Patient presented to the hospital today with severe fever and chills, she was shivering and has severe urinary incontinence. Although answering all questions appears to be slightly confused when asked about any urinary symptoms she denied but UA came back positive for UTI. Denies any cough or wheezing, denies any chest pain or palpitation. Patient will be admitted for sepsis and complicated UTI. Primary Care Provider: Phillip Montana MD Allergies Allergy/AdvReac Type Severity Reaction Status Date / Time shellfish derived Allergy Severe ANAPHYLAXIS Verified 12/23/18 13:49 iodine Allergy Intermediate ANAPHYLAXIS Verified 12/23/18 13:49 lisinopril Allergy Verified 12/23/18 13:49 oxybutynin [From Ditropan] Allergy Verified 12/23/18 13:49 sertraline [From Zoloft] Allergy Verified 12/23/18 13:49 paroxetine AdvReac Unknown GI UPSET Verified 12/23/18 13:49 Home Medications Home Medications Medication Instructions Recorded Confirmed Type PreserVision AREDS-2 1 tab PO BID 12/14/17 12/23/18 History cholecalciferol (vitamin D3) 1,000 unit PO QAM 12/14/17 12/23/18 History [Vitamin D3] cyanocobalamin (vitamin B-12) 1,000 mcg PO QAM 12/14/17 12/23/18 History [Vitamin B-12] acetaminophen [Tylenol Arthritis 2 tabs PO UD PRN 08/14/18 12/23/18 History Pain] fluticasone propionate 1 spray INTRANASAL BID 08/14/18 12/23/18 History isosorbide mononitrate 30 mg PO QAM 08/14/18 12/23/18 History pantoprazole 40 mg PO QAM 08/14/18 12/23/18 History atorvastatin 80 mg tablet 80 mg PO HS 90 Days #90 tab 09/16/18 12/23/18 Rx levothyroxine 50 mcg tablet 50 mcg PO QAM 30 Days #30 tab 10/05/18 12/23/18 Rx metoprolol succinate ER 50 mg 100 mg PO BID #360 tab 11/16/18 12/23/18 Rx tablet,extended release 24 hr insulin aspart (U-100) 100 unit/mL 3 units SUBCUT TIDM #15 ml 11/17/18 12/23/18 Rx (3 mL) subcutaneous pen insulin glargine (U-100) 100 25 units SUBCUT HS #15 ml 11/17/18 12/23/18 Rx unit/mL (3 mL) subcutaneous pen diclofenac 1 % topical gel 2 g TOPICAL HS PRN gm 11/20/18 12/23/18 History diltiazem ER 180 mg 180 mg PO QAM #90 tab 11/20/18 12/23/18 History tablet,extended release 24 hr nystatin 100,000 unit/gram topical 1 appln TOPICAL BID PRN #2 gm 11/20/18 12/23/18 History ointment apixaban 2.5 mg tablet 2.5 mg PO BID #60 tab 11/22/18 12/23/18 Rx albuterol sulfate HFA 90 2 puffs INHALATION Q4H PRN #2 gm 11/25/18 12/23/18 Rx mcg/actuation aerosol inhaler furosemide 40 mg tablet 80 mg PO BID tab 11/25/18 12/23/18 History digoxin 125 mcg PO Q2D 12/06/18 12/23/18 History magnesium 400 mg (as magnesium 400 mg PO QAM cap 12/14/18 12/23/18 History oxide) capsule potassium chloride ER 20 mEq 20 meq PO BID tab 12/14/18 12/23/18 History tablet,extended release allopurinol 100 mg tablet 100 mg PO QAM tab 12/16/18 12/23/18 History gabapentin 400 mg capsule 400 mg PO TID #270 cap 12/16/18 12/23/18 Rx tapentadol 50 mg tablet 50 mg PO BID PRN #60 tab 12/16/18 12/23/18 Rx clopidogrel [Plavix] 75 mg PO QAM 12/23/18 12/23/18 History Past Med/Surg History Medical History Anxiety (Chronic) GERD (gastroesophageal reflux disease) (Chronic) COPD (chronic obstructive pulmonary disease) (Chronic) Hypothyroidism (Chronic) Managed with levothyroxine supplementation Chronic kidney disease (CKD) (Chronic) Stage III, baseline Cr 1.3-1.5mg/dL. Complicated with normocytic anemia and secondary hyperparathyroidism. Followed by nephrology. Mitral regurgitation (Chronic) Obstructive sleep apnea (Chronic) Long standing. Managed with CPAP nightly. CPAP titration polysomnography (07/14). Atrial fibrillation (Chronic) Diastolic congestive heart failure (Chronic) Asthma (Chronic) Anemia (Chronic) Chronic macrocytic Falls frequently (Chronic) Gait disorder (Chronic) HTN (hypertension) (Chronic) Macular degeneration (Chronic) Pneumonia (Ruled-out) Effusion of knee joint right (Inactive) Surgical History S/P implantation of urinary electronic stimulator device (Resolved) H/O colonoscopy (Resolved) History of repair of rectocele S/P breast biopsy S/P section S/P cholecystectomy S/P hysterectomy Family History Other Coronary heart disease Social History Preferred Language: Danish Communication Ability: Effective Visual Impairment: No Limitations Hearing Ability: Normal Contract Technician Required: No Beliefs That Will Affect Care: None marital status: Life Partner Current Living Situation: Significant Other current occupational status: retired Feels Safe at Home: Yes Safety Concerns: Feels Safe At This Time Smoking Status: Never smoker Hx Alcohol Use: No Hx Substance Use: No Childhood Exposure to Second-Hand Smoke: No Review of Systems Review of Systems: Due to patient mental status review of system was unob tainable/unreliable We'll attempt to obtain review of system as needed from staff and family Physical Exam Physical Exam: Physical examination General, obese appears to be an moderate acute distress HEENT: Atraumatic , normocephalic /no jaundice /no pallor /anicteric /no dry mucous membrane /normal external ear inspection Neck: Supple /no swelling /central trach Heart: Irregular irregularity, tachycardia, 2/6 systolic murmur Lungs: Decreased air entry, decreased inspiratory effort but overall appears clear/no rhonchi/no rales/no wheezing/no use of accessory muscles of respiration Abdomen: Soft/nontender/no guarding/no rebound/no organomegaly/no pulsatile mass Musculoskeletal: No swelling/no edema/no tenderness/normal range of motion Neuro exam: Awake alert slightly disoriented and shivering with fever/cranial nerves II through XII appear to be intact/sensation intact/moves all extremities/no abnormal movements Psychiatric evaluation: Unable to evaluate Skin: No rash on exposed skin area/no erythema Extremity: Normal pulse/no pitting edema/no clubbing or cyanosis Overall appears to be sick looking and very febrile to touch Results & Data Vital Signs (Past 12 Hours) Vital Signs Temp Pulse Pulse Resp BP BP Pulse Ox 12/23/18 15:30 164 H 36 H 12/23/18 15:01 108 H 23 97 12/23/18 15:00 102 H 25 H 143/63 H 97 12/23/18 14:32 109 H 26 H 124/91 12/23/18 14:30 106 H 25 H 12/23/18 14:00 37.6 C H 102 H 117 H 24 130/44 L 95 12/23/18 13:59 106 H 22 130/44 L 95 12/23/18 13:37 119 H 18 12/23/18 13:09 100 H 21 12/23/18 12:32 38.1 C H 95 H 20 112/64 93 Code Status & VTE Plan VTE Prophylaxis Plan VTE Prophylaxis will be ordered: Yes PG Care Time/CCT Total # of Minutes Spent Total Time Spent with Patient: 35 minutes total time spent is greater than 50% in coordination of care (as documented) at patient's floor/unit and/or counseling patient/family discussion of care with nursing staff (1) Sepsis Sepsis acute organ dysfunction status: with acute organ dysfunction Sepsis type: sepsis due to unspecified organism Severe sepsis acute organ dysfunction type: unspecified Severe sepsis shock status: without septic shock Qualified Code(s): A41.9 - Sepsis, unspecified organism; R65.20 - Severe sepsis without septic shock (2) GERD (gastroesophageal reflux disease) Esophagitis presence: esophagitis presence not specified Qualified Code(s): K21.9 - Gastro-esophageal reflux disease without esophagitis
[2018-12-23] MEDS ORDERED: CARBOHYDRATES FOR HYPOGLYCEMIA PO PRN (16:15)
[2018-12-23] MEDS ORDERED: GLUCAGON FOR INJ 1 MG VIAL SQ PRN (16:15)
[2018-12-23] MEDS ORDERED: GLUCOSE 40% GEL 15 GM TUBE PO PRN (16:15)
[2018-12-23] MEDS ORDERED: GLUCOSE 10 TABS/TUBE PO PRN (16:15)
[2018-12-23] MEDS: ONDANSETRON INJ 2 MG/ML 2 ML VIAL IV PRN (16:15)
[2018-12-23] MEDS ORDERED: DEXTROSE 50% 50 ML SYRINGE IV PRN (16:15)
[2018-12-23] MEDS: SODIUM CHLORIDE 0.9% 1000ML 1,000 ML IV SCH (16:56)
[2018-12-23] MEDS: LACTOBACILLUS ACIDOPHILUS 1 GM PACK PO SCH (16:58)
[2018-12-23] MEDS ORDERED: VANCOMYCIN HCL 1,500 MG in SODIUM CHLORIDE 0.9% 500 ML IV ONE (17:00)
[2018-12-23] MEDS ORDERED: CEFEPIME CONSULT ACTIVE PRN (17:50)
[2018-12-23] MEDS: INSULIN ASPART 100 UNITS/ML 3 ML PEN SC SCH ×2 (17:53→22:31)
[2018-12-23] MEDS: CEFEPIME 2,000 MG in SYRINGE 7.5 ML IV SCH (18:47)
--- NOTE | 2018-12-23 18:51 | Pharmacy Report ---
Pharmacy Abx Dose Short Note - Date of Service December 23, 2018 - Assessment & Plan Assessment: 83 yo Female receiving VANC/CEFEPIME-IV for treatment of severe sepsis--uti (complicated) * Day # 1 of antimicrobial therapy. Pertinent PMH: DM, CKD-3 Plan: Vanc-IV: * Estimated pharmacokinetics: Vd~0.7 L/kg, Ke~0.0226 hr-1, T 1/2~30 hrs * LOADING DOSE: VANC 1500mg (~20mg/kg) IV x 1, then * Random Vanc with 9/20 am labs to guide subsequent dosing. * Goal trough level: ~15 mcg/mL Cefepime: * Target dose: 2g iv q 8 hours, ordered 2g IV e24 hours for est GFR 11-29mL/min. Pharmacy will continue to follow and will adjust dose/frequency as necessary. Thank you.
--- NOTE | 2018-12-23 19:48 | Emergency Department Note ---
Entered by Edinson Queen acting as a scribe for History of Present Illness General Chief complaint: Illness Stated complaint: ILLNESS Source: patient History of Present Illness Onset (ago): hour(s) (earlier today) Severity: mild Pain Consistency: + constant Quality: + other (fever) Associated symptoms: + denies other symptoms (sore throat, pain with urination, blood with urination, runny nose, ear ache) and + cough; no chest pain, no headaches, no nausea/vomiting, no rash and no shortness of breath The patient is an 83 y/o female with a PMHx of a NSTEMI, DM, ACS, CHF, a-fib, CKD, HLD, HTN, CAD, COPD who presents to the ED w/ CC of constant, mild, fever beginning earlier today. The patient states she was cold and shaking this morning. She reports she was evaluated by her at home nurse and was told she had a fever and to come to the ED. The patient notes she also had a mild cough today. Her last BM was this morning, and it was normal. The patient states she took Tylenol and feels better. She reports she did not see her PCP today. The patient denies sore throat, pain with urination, blood with urination, rash, open sores, nausea, vomiting, chest pain, sob, headache, runny nose, ear ache. Review of EMR: Pt was recently admitted for NSTEMI. She had 90% occlusion of her previous stent and discharged under 2 weeks ago. Home Medications Home Medications Medication Instructions Recorded Confirmed Type PreserVision AREDS-2 1 tab PO BID 12/14/17 12/23/18 History cholecalciferol (vitamin D3) 1,000 unit PO QAM 12/14/17 12/23/18 History [Vitamin D3] cyanocobalamin (vitamin B-12) 1,000 mcg PO QAM 12/14/17 12/23/18 History [Vitamin B-12] acetaminophen [Tylenol Arthritis 2 tabs PO UD PRN 08/14/18 12/23/18 History Pain] fluticasone propionate 1 spray INTRANASAL BID 08/14/18 12/23/18 History isosorbide mononitrate 30 mg PO QAM 08/14/18 12/23/18 History pantoprazole 40 mg PO QAM 08/14/18 12/23/18 History atorvastatin 80 mg tablet 80 mg PO HS 90 Days #90 tab 09/16/18 12/23/18 Rx levothyroxine 50 mcg tablet 50 mcg PO QAM 30 Days #30 tab 10/05/18 12/23/18 Rx metoprolol succinate ER 50 mg 100 mg PO BID #360 tab 11/16/18 12/23/18 Rx tablet,extended release 24 hr insulin aspart (U-100) 100 unit/mL 3 units SUBCUT TIDM #15 ml 11/17/18 12/23/18 Rx (3 mL) subcutaneous pen insulin glargine (U-100) 100 25 units SUBCUT HS #15 ml 11/17/18 12/23/18 Rx unit/mL (3 mL) subcutaneous pen diclofenac 1 % topical gel 2 g TOPICAL HS PRN gm 11/20/18 12/23/18 History diltiazem ER 180 mg 180 mg PO QAM #90 tab 11/20/18 12/23/18 History tablet,extended release 24 hr nystatin 100,000 unit/gram topical 1 appln TOPICAL BID PRN #2 gm 11/20/18 12/23/18 History ointment apixaban 2.5 mg tablet 2.5 mg PO BID #60 tab 11/22/18 12/23/18 Rx albuterol sulfate HFA 90 2 puffs INHALATION Q4H PRN #2 gm 11/25/18 12/23/18 Rx mcg/actuation aerosol inhaler furosemide 40 mg tablet 80 mg PO BID tab 11/25/18 12/23/18 History digoxin 125 mcg PO Q2D 12/06/18 12/23/18 History magnesium 400 mg (as magnesium 400 mg PO QAM cap 12/14/18 12/23/18 History oxide) capsule potassium chloride ER 20 mEq 20 meq PO BID tab 12/14/18 12/23/18 History tablet,extended release allopurinol 100 mg tablet 100 mg PO QAM tab 12/16/18 12/23/18 History gabapentin 400 mg capsule 400 mg PO TID #270 cap 12/16/18 12/23/18 Rx tapentadol 50 mg tablet 50 mg PO BID PRN #60 tab 12/16/18 12/23/18 Rx clopidogrel [Plavix] 75 mg PO QAM 12/23/18 12/23/18 History Allergies Allergy/AdvReac Type Severity Reaction Status Date / Time shellfish derived Allergy Severe ANAPHYLAXIS Verified 12/23/18 13:49 iodine Allergy Intermediate ANAPHYLAXIS Verified 12/23/18 13:49 lisinopril Allergy Verified 12/23/18 13:49 oxybutynin [From Ditropan] Allergy Verified 12/23/18 13:49 sertraline [From Zoloft] Allergy Verified 12/23/18 13:49 paroxetine AdvReac Unknown GI UPSET Verified 12/23/18 13:49 Past Med/Surg History Medical History Anxiety (Chronic) GERD (gastroesophageal reflux disease) (Chronic) COPD (chronic obstructive pulmonary disease) (Chronic) Hypothyroidism (Chronic) Managed with levothyroxine supplementation Chronic kidney disease (CKD) (Chronic) Stage III, baseline Cr 1.3-1.5mg/dL. Complicated with normocytic anemia and secondary hyperparathyroidism. Followed by nephrology. Mitral regurgitation (Chronic) Obstructive sleep apnea (Chronic) Long standing. Managed with CPAP nightly. CPAP titration polysomnography (07/14). Atrial fibrillation (Chronic) Diastolic congestive heart failure (Chronic) Asthma (Chronic) Anemia (Chronic) Chronic macrocytic Falls frequently (Chronic) Gait disorder (Chronic) HTN (hypertension) (Chronic) Macular degeneration (Chronic) Pneumonia (Ruled-out) Effusion of knee joint right (Inactive) Surgical History S/P implantation of urinary electronic stimulator device (Resolved) H/O colonoscopy (Resolved) History of repair of rectocele S/P breast biopsy S/P section S/P cholecystectomy S/P hysterectomy Family History Other Coronary heart disease Social History Preferred Language: Occitan Communication Ability: Effective Visual Impairment: No Limitations Hearing Ability: Normal Freight Unloader Required: No Beliefs That Will Affect Care: None marital status: Life Partner Current Living Situation: Spouse and Significant Other current occupational status: retired Feels Safe at Home: Yes Smoking Status: Never smoker Second Hand Exposure: No ; Hx Alcohol Use: No Hx Substance Use: No Childhood Exposure to Second-Hand Smoke: No Review of Systems See HPI for pertinent positives & negatives. and A total of 10 systems reviewed and were otherwise negative Physical Exam Vital Signs Vital Signs - 24 hr 12/23/18 12:32 12/23/18 13:09 12/23/18 13:37 Temperature 38.1 C H Temperature Source Oral Rectal Temperature - Source 1 Sepsis Recent Fever Within 48 Hours Yes Sepsis New/Unexplained Change in Mental Status No Sepsis Action Taken by Nursing No Action Required Pulse Rate 95 H 100 H 119 H Pulse Rate [Apical] Pulse Rate from SpO2 Sensor Pulse Rhythm [Apical] Pulse Strength [Apical] Respiratory Rate 20 21 18 Respiratory Effort / Characteristics Respiratory Depth Respiratory Pattern Blood Pressure 112/64 Blood Pressure [Left Arm] Blood Pressure Mean 80 Blood Pressure Mean [Left Arm] Blood Pressure Position [Left Arm] Pulse Oximetry 93 Oxygen Delivery Method Room Air Oxygen Flow Rate 12/23/18 13:59 12/23/18 14:00 12/23/18 14:30 Temperature 37.6 C H Temperature Source Oral Rectal Temperature - Source 1 Sepsis Recent Fever Within 48 Hours Sepsis New/Unexplained Change in Mental Status Sepsis Action Taken by Nursing Pulse Rate 106 H 102 H 106 H Pulse Rate [Apical] 117 H Pulse Rate from SpO2 Sensor 105 H 114 H Pulse Rhythm [Apical] Regular Pulse Strength [Apical] Normal Respiratory Rate 22 24 25 H Respiratory Effort / Characteristics Non-Labored Spontaneous Respiratory Depth Normal Respiratory Pattern Regular Blood Pressure 130/44 L Blood Pressure [Left Arm] 130/44 L Blood Pressure Mean 72 Blood Pressure Mean [Left Arm] 72 Blood Pressure Position [Left Arm] Sitting Pulse Oximetry 95 95 Oxygen Delivery Method Nasal Cannula Nasal Cannula Oxygen Flow Rate 3 3 12/23/18 14:32 12/23/18 15:00 12/23/18 15:01 Temperature Temperature Source Rectal Temperature - Source 1 40.3 C H Sepsis Recent Fever Within 48 Hours Sepsis New/Unexplained Change in Mental Status Sepsis Action Taken by Nursing Pulse Rate 109 H 102 H 108 H Pulse Rate [Apical] Pulse Rate from SpO2 Sensor 102 H 100 H Pulse Rhythm [Apical] Pulse Strength [Apical] Respiratory Rate 26 H 25 H 23 Respiratory Effort / Characteristics Respiratory Depth Respiratory Pattern Blood Pressure 124/91 143/63 H Blood Pressure [Left Arm] Blood Pressure Mean 102 89 Blood Pressure Mean [Left Arm] Blood Pressure Position [Left Arm] Pulse Oximetry 97 97 Oxygen Delivery Method Nasal Cannula Nasal Cannula Oxygen Flow Rate 3 3 GENERAL: Sitting up in bed. Talking in full sentences. Non-toxic. EYE EXAM: normal conjunctiva OROPHARYNX: no exudate, no erythema, lips, buccal mucosa, and tongue normal and mucous membranes are moist NECK: supple, no nuchal rigidity, no adenopathy, non-tender LUNGS: Diminished breath sounds. Clear to auscultation. Normal chest wall mechanics HEART: no murmurs, S1 normal and S2 normal ABDOMEN: abdomen soft, minimal diffuse tenderness to palpation, normo-active bowel sounds, no masses, no rebound or guarding. BACK: Back is symmetrical on inspection and there is no deformity, no midline tenderness, no CVA tenderness. SKIN: no rashes and no bruising UPPER EXTREMITIES: upper extremities are grossly normal. LOWER EXTREMITIES: No pitting edema. NEURO EXAM: Normal sensorium, cranial nerves II-XII grossly intact, normal speech, no gross weakness of arms, no gross weakness of legs. Course ED COURSE: Vital signs were reviewed and showed HTN, febrile, tachycardia. The patients medical record was reviewed The above diagnostic studies were performed and reviewed. ED treatments and interventions as stated above. 1239: The patient was evaluated in room C04. A complete history and physical examination was performed. 1410: Upon reevaluation, the patient is resting.I discussed my findings with the patient and she understands and agrees with the treatment plan. 1412: I reviewed the patient's case with DR. Cuca Donohue, [facility] Hospitalist. He will evaluate the patient for further management. Based on the patients age, coexisting illnesses, exam and lab findings the decision to treat as an inpatient was made. The patient remained stable while under my care. The patient will be evaluated for further management. Administered Medications Sodium Chloride (Nss 1000ml) 1,000 mls @ 75 mls/hr IV .[id number] RODDY Stop: 01/22/19 15:29 Last Admin: 12/23/18 16:56 Dose: 75 mls/hr Documented by: [id number] Cefepime HCl 2,000 mg/ Syringe 20 mls @ 5 mls/min IV Q24H RODDY; Protocol Stop: 01/02/19 17:59 Last Admin: 12/23/18 18:47 Dose: 5 mls/min Documented by: [id number] Insulin Aspart (Novolog Flexpen) 0 units SC ACHS RODDY Stop: 01/22/19 16:29 Last Admin: 12/23/18 17:53 Dose: 4 units Documented by: [id number] Cosigned by: [id number] Lactobacillus Acidophilus (Floranex Granules/Powder Packet) 1 gm PO TIDM RODDY Stop: 01/22/19 16:59 Last Admin: 12/23/18 16:58 Dose: Not Given Documented by: [id number] Ondansetron HCl (Zofran) 4 mg IV Q6H PRN PRN Reason: Nausea Stop: 01/22/19 15:33 Last Admin: 12/23/18 16:15 Dose: 4 mg Documented by: [id number] Discontinued Medications Acetaminophen (Tylenol) 1,000 mg PO NOW STA Stop: 12/23/18 13:54 Last Admin: 12/23/18 14:14 Dose: 1,000 mg Documented by: [id number] Digoxin (Lanoxin) 0.125 mg PO Q2D RODDY Stop: 01/22/19 15:44 Last Admin: 12/23/18 16:58 Dose: Not Given Documented by: [id number] Sodium Chloride (Nss 1000ml) 500 mls @ 999 mls/hr IV .Q31M ONE Stop: 12/23/18 13:13 Last Infusion: 12/23/18 13:51 Dose: 0 mls/hr Documented by: [id number] Admin: 12/23/18 13:21 Dose: 999 mls/hr Documented by: [id number] Sodium Chloride (Nss 1000ml) 1,000 mls @ 999 mls/hr IV .Q1H1M ONE Stop: 12/23/18 14:52 Last Infusion: 12/23/18 15:15 Dose: 0 mls/hr Documented by: [id number] Admin: 12/23/18 14:14 Dose: 999 mls/hr Documented by: [id number] Ceftriaxone Sodium (Rocephin) 1,000 mg in 50 mls @ 100 mls/hr IV NOW STA Stop: 12/23/18 14:21 Last Infusion: 12/23/18 14:44 Dose: 0 mls/hr Documented by: [id number] Admin: 12/23/18 14:14 Dose: 100 mls/hr Documented by: [id number] Sodium Chloride (Nss 1000ml) 250 mls @ 999 mls/hr IV .Q16M ONE Stop: 12/23/18 15:52 Last Infusion: 12/23/18 18:45 Dose: 0 mls/hr Documented by: [id number] Admin: 12/23/18 15:45 Dose: 999 mls/hr Documented by: [id number] Vancomycin HCl 1,500 mg/ (Sodium Chloride) 530 mls @ 200 mls/hr IV NOW ONE Stop: 12/23/18 19:38 Last Admin: 12/23/18 16:57 Dose: 200 mls/hr Documented by: [id number] Metoprolol Tartrate (Lopressor) 2.5 mg IV NOW STA Stop: 12/23/18 15:41 Last Admin: 12/23/18 17:52 Dose: Not Given Documented by: [id number] Medical Decision Making Differential Diagnosis Differential diagnosis includes etiologies such as sepsis, UTI, pneumonia, metabolic, electrolyte abnormalities, cardiac sources, intracerebral event, toxicologic, neurologic, as well as others were entertained. Medical Records Attestation: I reviewed the patient's medical records. Home Medications Current Medication List: was personally reviewed by me Laboratory Data Attestation: I reviewed the patient's lab results. Result diagrams: 12/23/18 13:00 12/23/18 13:00 Lab Results 12/23/18 12/23/18 12/23/18 Range/Units 13:00 13:00 13:00 WBC 14.76 H (4.8-10.8) K/uL RBC 3.15 L (4.2-5.4) M/uL Hgb 9.7 L (12.0-16.0) g/dL Hct 31.5 L (37-47) % MCV 100.0 (80-100) fL MCH 30.8 (25-34) pg MCHC 30.8 L (32-36) g/dL RDW Std Deviation 59.5 H (36.4-46.3) fL RDW Coeff of Talia 16.5 H (11.5-14.5) % Plt Count 163 (130-400) K/uL MPV 9.5 (7.4-10.4) fL Immature Gran % (Auto) 0.8 % Neut % (Auto) 93.1 % Lymph % (Auto) 1.8 % [place] % (Auto) 4.1 % Eos % (Auto) 0.1 % Baso % (Auto) 0.1 % Immature Gran # (Auto) 0.12 H (0.00-0.02) K/uL Neut # (Auto) 13.75 H (1.4-6.5) K/uL Lymph # (Auto) 0.27 L (1.2-3.4) K/uL [place] # (Auto) 0.60 H (0.11-0.59) K/uL Eos # (Auto) 0.01 (0-0.5) K/uL Baso # (Auto) 0.01 (0-0.2) K/uL Absolute Nucleated RBC 0.11 H (0-0) K/uL Nucleated RBC % (auto) 0.7 % Polychromasia 1+ Ovalocytes 1+ PT 11.8 (9.0-12.0) Seconds INR 1.2 H (0.9-1.1) APTT 29.6 (21.0-31.0) Seconds PTT Ratio 1.1 Sodium 139 (136-145) mmol/L Potassium 4.1 (3.5-5.1) mmol/L Chloride 98 (98-107) mmol/L Carbon Dioxide 26 (21-32) mmol/L Anion Gap 15.0 H (3-11) BUN 31 H (7-18) mg/dl Creatinine 2.05 H (0.6-1.2) mg/dl Est Cr Clr Drug Dosing Not Reportable Est GFR ( Amer) 25.7 Est GFR (Non-Af Amer) 22.2 BUN/Creatinine Ratio 15.0 (10-20) Glucose 247 H (70-99) mg/dl Lactate (0.4-2.0) mmol/L Calcium 8.5 (8.5-10.1) mg/dl Total Bilirubin 2.9 H (0.2-1) mg/dl AST 24 (15-37) U/L ALT 18 (12-78) U/L Alkaline Phosphatase 98 (45-117) U/L Total Protein 6.8 (6.4-8.2) gm/dl Albumin 3.3 L (3.4-5.0) gm/dl Globulin 3.5 (2.5-4.0) gm/dl Albumin/Globulin Ratio 1.0 (0.9-2) Urine Color Urine Appearance (Clear) Urine pH (4.5-7.5) Ur Specific [place] (1.000-1.030) Urine Protein (Negative) Urine Glucose (UA) (Negative) Urine Ketones (Negative) Urine Blood (Negative) Urine Nitrite (Negative) Urine Bilirubin (Negative) Urine Urobilinogen (Negative) Ur Leukocyte Esterase (Negative) Urine WBC (Auto) (0-5) /hpf Urine RBC (Auto) (0-4) /hpf U Hyaline Cast (Auto) (0-5) /lpf U Epithel Cells (Auto) (0-5) /lpf Urine Bacteria (Auto) (Negative) 12/23/18 12/23/18 Range/Units 13:00 13:20 WBC (4.8-10.8) K/uL RBC (4.2-5.4) M/uL Hgb (12.0-16.0) g/dL Hct (37-47) % MCV (80-100) fL MCH (25-34) pg MCHC (32-36) g/dL RDW Std Deviation (36.4-46.3) fL RDW Coeff of Talia (11.5-14.5) % Plt Count (130-400) K/uL MPV (7.4-10.4) fL Immature Gran % (Auto) % Neut % (Auto) % Lymph % (Auto) % [place] % (Auto) % Eos % (Auto) % Baso % (Auto) % Immature Gran # (Auto) (0.00-0.02) K/uL Neut # (Auto) (1.4-6.5) K/uL Lymph # (Auto) (1.2-3.4) K/uL [place] # (Auto) (0.11-0.59) K/uL Eos # (Auto) (0-0.5) K/uL Baso # (Auto) (0-0.2) K/uL Absolute Nucleated RBC (0-0) K/uL Nucleated RBC % (auto) % Polychromasia Ovalocytes PT (9.0-12.0) Seconds INR (0.9-1.1) APTT (21.0-31.0) Seconds PTT Ratio Sodium (136-145) mmol/L Potassium (3.5-5.1) mmol/L Chloride (98-107) mmol/L Carbon Dioxide (21-32) mmol/L Anion Gap (3-11) BUN (7-18) mg/dl Creatinine (0.6-1.2) mg/dl Est Cr Clr Drug Dosing Est GFR ( Amer) Est GFR (Non-Af Amer) BUN/Creatinine Ratio (10-20) Glucose (70-99) mg/dl Lactate 7.7 H* (0.4-2.0) mmol/L Calcium (8.5-10.1) mg/dl Total Bilirubin (0.2-1) mg/dl AST (15-37) U/L ALT (12-78) U/L Alkaline Phosphatase (45-117) U/L Total Protein (6.4-8.2) gm/dl Albumin (3.4-5.0) gm/dl Globulin (2.5-4.0) gm/dl Albumin/Globulin Ratio (0.9-2) Urine Color Yellow Urine Appearance Cloudy A (Clear) Urine pH 5.0 (4.5-7.5) Ur Specific [place] 1.013 (1.000-1.030) Urine Protein Trace H (Negative) Urine Glucose (UA) Negative (Negative) Urine Ketones Negative (Negative) Urine Blood Negative (Negative) Urine Nitrite Positive A (Negative) Urine Bilirubin Negative (Negative) Urine Urobilinogen Negative (Negative) Ur Leukocyte Esterase 2+ H (Negative) Urine WBC (Auto) >30 H (0-5) /hpf Urine RBC (Auto) 0-4 (0-4) /hpf U Hyaline Cast (Auto) 1-5 (0-5) /lpf U Epithel Cells (Auto) 5-10 H (0-5) /lpf Urine Bacteria (Auto) 3+ H (Negative) Imaging Data Radiologist's Impression: Radiology results as stated below per my review and the radiologist's interpretation: XR chest 1V portable CLINICAL HISTORY: Sepsis COMPARISON STUDY: 12/06/2018 FINDINGS: The heart is mildly enlarged. There is mild left hilar prominence likely vascular. There is no lobar consolidation. There are no pleural effusions. There is minor basilar atelectatic change.[ IMPRESSION: Mild cardiomegaly. No evidence of focal pulmonary consolidation Electronically signed by: Yogesh French M.D. 12/23/2018 1:[address] abd pelvis wo con CT DOSE: 494.96 mGy.cm HISTORY: Pain. Cough. fever abd pain w/ cough TECHNIQUE: Multiaxial CT images of the abdomen and pelvis were performed without contrast. A dose lowering technique was utilized adhering to the principles of ALARA. COMPARISON STUDY: None. FINDINGS: Fibrotic/postoperative changes right breast. Lung bases are clear. Liver spleen and pancreas are grossly unremarkable. The kidneys are considered negative for hydronephrosis. Mild chronic prominence of the right renal pelvis is again noted. Bowel pattern is nonobstructive. Bladder is midline. There is a stimulator over the right gluteal region. IMPRESSION: No acute process in the abdomen or pelvis. The above report was generated using voice recognition software. It may contain grammatical, syntax or spelling errors. Electronically signed by: Perry Weiss M.D. 12/23/2018 1:51 PM ECG Data Attestation: I personally reviewed and interpreted this ECG as follows: Indication: tachycardia Rate (beats per minute): 103 Rhythm: atrial fibrillation (with RVR) Findings: + ST depression (anterior, lateral) and + T-wave inversion (High lateral, lateral, anterior) Comparison ECG Date: from (12/16/18) Change: no significant change Blood Pressure Blood Pressure Findings: Elevated blood pressure Blood Pressure Disposition: further management by hospitalist EDWIN Narrative Patient is an 83-year-old female who presents the ER with a recent admission for CAD with stent placement. She presents today with a fever and notes that she was having some chills. IV was established blood work was obtained and showed a glucose of 14,000. Chronic anemia at 9.7. INR is unremarkable. BMP with a creatinine of 2.0 which is up from 1.7. Lactate was significantly elevated at 7.7. Glucose is elevated to 47. UA with nitrates white cells and leukocytes consistent with a clear UTI. Patient was given 1.5 L of IV fluid. She was given IV Rocephin for broad-spectrum antibiotics for the UTI. EKG was nondiagnostic although did show some acute changes. Patient was given Tylenol as well. She was discussed with the hospitalist and admitted for sepsis secondary to UTI. Patient was monitored closely while in the ER. Impression & Plan Sepsis, Acute UTI, Elevated lactic acid level, PATY (acute kidney injury) Critical Care Time Critical Care Time: Yes Total Critical Care Time: 40 I have personally spent 40 minutes of critical care time in the direct management of this patient. This includes bedside care, interpretation of diagnostic studies, and testing, discussion with consultants, patient, and family members, and other required patient management activities. This 40 minutes is in excess of all separately billable procedures. Discharge Plan Visit Data *Final* Discharge Date/Time: 12/23/18 15:57 Chief Complaint: Illness Stated Complaint: ILLNESS ED Provider: Julián Adames Discharge Problem: Sepsis, Acute UTI, Elevated lactic acid level, PATY (acute kidney injury) Patient Disposition: Admitted As Inpatient Discharge Instructions Interventions: ED Discharge Assessment Last Done: 12/23/18 15:57 Sepsis Evaluation Sepsis screening result: No Definite Risk Current stage of sepsis: sepsis Focused Exam Vital Signs Temp Pulse Pulse Resp BP BP Pulse Ox 12/23/18 15:01 108 H 23 97 12/23/18 15:00 102 H 25 H 143/63 H 97 12/23/18 14:32 109 H 26 H 124/91 12/23/18 14:30 106 H 25 H 12/23/18 14:00 37.6 C H 102 H 117 H 24 130/44 L 95 12/23/18 13:59 106 H 22 130/44 L 95 12/23/18 13:37 119 H 18 12/23/18 13:09 100 H 21 12/23/18 12:32 38.1 C H 95 H 20 112/64 93 Discharge Problem: Sepsis Qualifiers: Sepsis type: sepsis due to unspecified organism Sepsis acute organ dysfunction status: with acute organ dysfunction Severe sepsis acute organ dysfunction type: unspecified Severe sepsis shock status: without septic shock Qualified Code(s): A41.9 - Sepsis, unspecified organism The scribe's documentation has been prepared under my direction and personally reviewed by me in its entirety. I confirm that the note above accurately reflects all work, treatment, procedures, and medical decision making performed by me.
[2018-12-23] MEDS: ATORVASTATIN 40 MG TAB PO SCH (22:27)
[2018-12-23] MEDS: GABAPENTIN 400 MG CAP PO SCH (22:28)
[2018-12-23] MEDS: METOPROLOL SUCC 50MG EXT REL TAB PO SCH (22:28)
[2018-12-23] MEDS: APIXABAN 2.5 MG TAB PO SCH (22:28)
[2018-12-23] MEDS: CEROVITE ADV FORMULA TAB PO SCH (22:28)
[2018-12-23] MEDS: FLUTICASONE PROPIONATE NA SPR 16 GM BTL SCH (22:29)
[2018-12-23] MEDS: POTASSIUM CHLORIDE 20 MEQ TABCR PO SCH (22:29)
[2018-12-23] MEDS: INSULIN GLARGINE SOLOSTAR 100 UNITS/ML 3 ML PEN SQ SCH (22:30)
[2018-12-24] MEDS: ACETAMINOPHEN 650 MG SUPP PR PRN (02:20)
[2018-12-24] MEDS: SODIUM CHLORIDE 0.9% 1000ML 1,000 ML IV SCH (04:38)
[2018-12-24 05:49] LABS: Hematocrit (blood only) 25.3 % (37-47); Hemoglobin 7.8 g/dL (12.0-16.0); Mean Corpuscular Hemoglobin 30.5 pg (25-34); Mean Corpuscular Hgb Conc 30.8 g/dL (32-36); Mean Corpuscular Volume 98.8 fL (80-100); Mean Platelet Volume 10.5 fL (7.4-10.4); Nucleated RBC # (auto) 0.03 K/uL (0-0); Nucleated RBC % (auto) 0.3 %; Platelet Count 117 K/uL (130-400); RDW Coefficient of Variation 16.5 % (11.5-14.5); RDW Standard Deviation 58.7 fL (36.4-46.3); Red Blood Count 2.56 M/uL (4.2-5.4); White Blood Count 9.82 K/uL (4.8-10.8)
[2018-12-24 06:12] LABS: Basophils # (auto) 0.01 K/uL (0-0.2); Basophils % (auto) 0.1 %; Dohle Bodies 2+; Eosinophils # (auto) 0.09 K/uL (0-0.5); Eosinophils % (auto) 0.9 %; Immature Granulocytes # (auto) 0.05 K/uL (0.00-0.02); Immature Granulocytes % (auto) 0.5 %; Lymphocytes # (auto) 0.72 K/uL (1.2-3.4); Lymphocytes % (auto) 7.3 %; Monocytes # (auto) 0.41 K/uL (0.11-0.59); Monocytes % (auto) 4.2 %; Neutrophils # (auto) 8.54 K/uL (1.4-6.5); Ovalocytes 2+; Polychromasia 1+; Toxic Vacuolation 2+
[2018-12-24] MEDS: LEVOTHYROXINE SODIUM 50 MCG TABLET PO SCH (06:12)
[2018-12-24 06:21] LABS: Albumin Level 2.4 gm/dl (3.4-5.0); BUN Creatinine Ratio 20.7 (10-20); Calcium 7.7 mg/dl (8.5-10.1); Creatinine Clr Calc Pharmacy 21.9 ml/min; Est GFR (African American) 29.9; Est GFR (Non-African American) 25.8; Magnesium 1.5 mg/dl (1.8-2.4); Potassium 3.7 mmol/L (3.5-5.1)
[2018-12-24 06:26] LABS: Albumin Globulin Ratio 0.8 (0.9-2); Bilirubin,Total 1.4 mg/dl (0.2-1); Globulin 3.1 gm/dl (2.5-4.0); Total Protein 5.5 gm/dl (6.4-8.2)
--- NOTE | 2018-12-24 07:27 | Pharmacy Report ---
Pharmacy Abx Dose Progress Nt - Date of Service December 24, 2018 - Pharmacy Dosing Scope The patient is currently receiving the following antimicrobial agents per Pharmacy consult: Vancomycin 1500 mg (20mg/kg) IV x 1 dose yesterday at 1700 with random level ordered for this morning. - Objective Vital Signs (Past 12hrs): Vital Signs Temp Pulse Pulse Resp BP Pulse Ox 12/24/18 03:34 36.8 C 78 19 100/45 L 96 12/24/18 02:25 37.4 C 75 19 94 12/23/18 23:30 37.1 C 86 20 110/49 L 100 12/23/18 23:00 79 12/23/18 20:15 88 12/23/18 19:36 36.7 C 84 16 109/57 L 100 Lab Results (24hrs): Laboratory Tests (24 Hours) 12/24/18 12/24/18 12/24/18 05:30 05:30 05:30 WBC 9.82 Neut # (Auto) 8.54 H Creatinine 1.81 H Est Cr Clr Drug Dosing 21.9 Random Vancomycin 16.0 12/23/18 12/23/18 13:00 13:00 WBC 14.76 H Neut # (Auto) 13.75 H Creatinine 2.05 H Est Cr Clr Drug Dosing Not Reportable Random Vancomycin Micro Results: Microbiology 12/23/18 13:00 Blood Aerobic Blood Culture - Preliminary 12/23/18 13:00 Blood Anaerobic Blood Culture - Preliminary Gram negative bacilli Gram negative bacilli 12/23/18 13:00 Blood Aerobic Blood Culture - Preliminary 12/23/18 13:00 Blood Anaerobic Blood Culture - Preliminary Gram negative bacilli Gram negative bacilli - Assessment & Plan Assessment 83 year old F receiving Vancomycin and Cefepime for treatment of Sepsis, complicated UTI Day # 2 of antimicrobial therapy. Renal function improving 2.05 --> 1.8mg/dl today WBC also improved greatly after 12 hours of antibiotics. Blood cultures growing gram negative rods, urine culture still pending, likely able to discontinue Vancomycin in the near future. Plan Vancomycin IV * Random level of 16 mcg/mL is therapeutic after 1 loading dose of 20mg/kg, and patient requires redosing. * Begin Vancomycin 1000mg (12.9mg/kg) IV Q12H at this time and re-check trough again after 2 doses. * Goal trough level for sepsis UTI : 15 to 20 mcg/mL * Trough level ordered for: 12/25/18, placed 8am dose on hold for 12/25 for pharmacy to evaluate level prior to re-dosing patient for safety and for difficult dosing in elderly patient with CKD. Cefepime: * Target dose: 2g iv q 8 hours, ordered 2g IV e24 hours for est GFR 11-29mL/min. Pharmacy will continue to follow and will adjust dose/frequency as necessary. Thank you.
[2018-12-24] MEDS: CYANOCOBALAMIN 500 MCG TABLET (VITAMIN B-12) PO SCH (07:49)
[2018-12-24] MEDS: dilTIAZem ER 180 MG CAPCR PO SCH (07:49)
[2018-12-24] MEDS: ISOSORBIDE MONO EXTENDED REL 30 MG TABCR PO SCH (07:50)
[2018-12-24] MEDS: CLOPIDOGREL BISULFATE 75 MG TAB PO SCH (07:50)
[2018-12-24] MEDS: GABAPENTIN 400 MG CAP PO SCH ×3 (07:50→20:22)
[2018-12-24] MEDS: PANTOprazole 40 MG TAB PO SCH (07:50)
[2018-12-24] MEDS: MAGNESIUM OXIDE 400 MG TAB PO SCH (07:50)
[2018-12-24] MEDS: POTASSIUM CHLORIDE 20 MEQ TABCR PO SCH ×2 (07:51→20:20)
[2018-12-24] MEDS: FLUTICASONE PROPIONATE NA SPR 16 GM BTL SCH ×2 (07:51→20:20)
[2018-12-24] MEDS: APIXABAN 2.5 MG TAB PO SCH ×2 (07:51→20:19)
[2018-12-24] MEDS: LACTOBACILLUS ACIDOPHILUS 1 GM PACK PO SCH ×3 (07:51→16:51)
[2018-12-24] MEDS: METOPROLOL SUCC 50MG EXT REL TAB PO SCH ×2 (07:52→20:24)
[2018-12-24] MEDS: CEROVITE ADV FORMULA TAB PO SCH ×2 (07:52→20:24)
[2018-12-24] MEDS ORDERED: VANCOMYCIN HCL 1,000 MG in SODIUM CHLORIDE 0.9% 250 ML IV SCH (08:00)
[2018-12-24] MEDS: ONDANSETRON INJ 2 MG/ML 2 ML VIAL IV PRN ×2 (08:03→17:53)
[2018-12-24] MEDS: INSULIN ASPART 100 UNITS/ML 3 ML PEN SC SCH ×4 (08:07→20:27)
[2018-12-24] MEDS ORDERED: ONDANSETRON INJ 2 MG/ML 2 ML VIAL IV STA (09:16)
[2018-12-24] MEDS: TAPENTADOL HCL 50 MG TAB PO PRN (09:27)
--- NOTE | 2018-12-24 14:24 | Hospitalist Progress Note ---
Date of Service December 24, 2018 Assessment & Plan (1) Complicated UTI (urinary tract infection): Urine culture on 12/23 growing E. coli. Blood cultures all growing Gram(-) rods, likely also the E. coli. - Continue cefepime - Narrow abx as able - No need to repeat blood cultures for Gram(-) bug (2) Anemia: Baseline hgb ~9-10. Was 10 on admission, but dropped to 7.8 on 12/24. - Likely dilutional as she has no signs of bleeding - Monitor hgb and for any signs of bleeding given she is on Plavix and anticoagulation (3) Acute kidney injury superimposed on chronic kidney disease: Baseline creatinine is 1.3 - 1.7. On admission, creatinine was 2.0. - Received 2 L IV fluids in the ED - On 12/24, Cr down to 1.8. - Holding further fluids for CHF. (4) Chronic diastolic congestive heart failure: [facility]. Not in exacerbation, though per Ms. Rothman, she can tip quickly. - Monitor volume status - Holding IV fluids at this point. - Normally takes furosemide 80mg PO BID - Baseline weight is 75 - 77 kg. - On 12/24, weight is 77.6 kg. Will restart Lasix tomorrow (12/25) at 80mg PO daily. (5) Sepsis: Due to bacteremia and UTI. - Resolved (6) Essential hypertension: BP was initially slightly elevated; today 100/50, but stable from yesterday evening. - Continue Cardizem and metoprolol - Hold further IV fluids for CHF (7) Diabetes 1.5, managed as type 2: A1c was 7.0% in 12/2018. - Lowered her home dose of Lantus to 15 units QHS (from 25 units) for decreased oral intake - Sliding scale insulin (8) Non-STEMI (non-ST elevated myocardial infarction): Last admission had NSTEMI with LAD stent on 12/08/2018. - Continue Plavix, beta-abilio, Imdur. - Was on ASA for 1 week, then stopped to avoid triple therapy (9) Atrial fibrillation, rapid: Long-standing. Was in RVR on admission; now improved to ~100 bpm. - Continue beta-abilio, calcium channel abilio, and digoxin - Digoxin level in the AM (10) Hyperlipidemia: - Continue Lipitor (11) GERD (gastroesophageal reflux disease): - Continue Protonix (12) DVT prophylaxis: On apixaban for her afib Subjective Feeling nauseated in the morning, but better after lunch. Otherwise, no focal complaints. Review of Systems Review of Systems: All systems reviewed & are unremarkable except as noted in HPI & below Physical Exam Constitutional: WD/WN, vitals as above Eyes: EOM intact bilaterally; no conjunctival abnormality ENMT: external ear and nose normal, oropharynx normal Neck: trachea midline, no thyromegaly normal visual inspection Respiratory: normal respiratory effort, lungs clear to auscultation no respiratory distress Cardiovascular: Rate/Rhythm: regular rhythm and + tachycardic Gastrointestinal (Abdomen): Inspection/Auscultation: abdomen normal to inspection; abdomen not distended Musculoskeletal: no cyanosis or clubbing, extremities motor strength 5/5 Skin: no rashes, warm and dry Neurologic: moves all extremities and awake Psychiatric: Orientation: alert, oriented to person and cooperative Results & Data Vital Signs (Past 12 Hours) Vital Signs Temp Pulse Pulse Resp BP Pulse Ox Pulse Ox 12/24/18 11:22 36.8 C 98 H 18 101/52 L 94 12/24/18 08:00 79 98 12/24/18 07:21 36.5 C 81 19 94/52 L 97 12/24/18 03:34 36.8 C 78 19 100/45 L 96 12/24/18 02:25 37.4 C 75 19 94 PG Care Time/CCT Total # of Minutes Spent Total Time Spent with Patient: Total time spent is greater than 50% in coordination of care (as documented) at patient's floor/unit and/or counseling patient: (1) Sepsis Sepsis acute organ dysfunction status: with acute organ dysfunction Sepsis type: sepsis due to unspecified organism Severe sepsis acute organ dysfunction type: unspecified Severe sepsis shock status: without septic shock Qualified Code(s): A41.9 - Sepsis, unspecified organism; R65.20 - Severe sepsis without septic shock (2) GERD (gastroesophageal reflux disease) Esophagitis presence: esophagitis presence not specified Qualified Code(s): K21.9 - Gastro-esophageal reflux disease without esophagitis (3) Anemia Anemia type: unspecified type Qualified Code(s): D64.9 - Anemia, unspecified
[2018-12-24] MEDS ORDERED: CALCIUM GLUCONATE 10% 1,000 MG in SODIUM CHLORIDE 0.9% 50 ML IV ONE (15:00)
[2018-12-24] MEDS: MAGNESIUM SULFATE / D5W 1 GM/100 ML BAG IV SCH ×2 (15:33→16:50)
[2018-12-24] MEDS: DIGOXIN 0.125 MG TAB PO SCH (15:36)
[2018-12-24] MEDS: CEFEPIME 2,000 MG in SYRINGE 7.5 ML IV SCH (17:52)
[2018-12-24] MEDS: ATORVASTATIN 40 MG TAB PO SCH (20:23)
[2018-12-24] MEDS: INSULIN GLARGINE SOLOSTAR 100 UNITS/ML 3 ML PEN SQ SCH (20:25)
[2018-12-24] MEDS: ACETAMINOPHEN 325 MG TAB PO PRN (20:29)
[2018-12-25] MEDS: LEVOTHYROXINE SODIUM 50 MCG TABLET PO SCH (06:36)
[2018-12-25] MEDS: INSULIN ASPART 100 UNITS/ML 3 ML PEN SC SCH ×4 (08:24→20:37)
[2018-12-25] MEDS: CEROVITE ADV FORMULA TAB PO SCH ×2 (08:25→20:45)
[2018-12-25] MEDS: ISOSORBIDE MONO EXTENDED REL 30 MG TABCR PO SCH (08:25)
[2018-12-25] MEDS: PANTOprazole 40 MG TAB PO SCH (08:25)
[2018-12-25] MEDS: dilTIAZem ER 180 MG CAPCR PO SCH (08:25)
[2018-12-25] MEDS: CLOPIDOGREL BISULFATE 75 MG TAB PO SCH (08:25)
[2018-12-25] MEDS: CYANOCOBALAMIN 500 MCG TABLET (VITAMIN B-12) PO SCH (08:25)
[2018-12-25] MEDS: METOPROLOL SUCC 50MG EXT REL TAB PO SCH ×2 (08:25→20:44)
[2018-12-25] MEDS: LACTOBACILLUS ACIDOPHILUS 1 GM PACK PO SCH ×3 (08:25→17:07)
[2018-12-25] MEDS: MAGNESIUM OXIDE 400 MG TAB PO SCH (08:25)
[2018-12-25] MEDS: POTASSIUM CHLORIDE 20 MEQ TABCR PO SCH ×2 (08:25→20:46)
[2018-12-25] MEDS: FLUTICASONE PROPIONATE NA SPR 16 GM BTL SCH ×2 (08:26→20:47)
[2018-12-25] MEDS: APIXABAN 2.5 MG TAB PO SCH ×2 (08:26→20:46)
[2018-12-25] MEDS: GABAPENTIN 400 MG CAP PO SCH ×3 (08:26→20:44)
[2018-12-25 08:36] LABS: Hematocrit (blood only) 22.4 % (37-47); Mean Corpuscular Hemoglobin 30.8 pg (25-34); Mean Corpuscular Hgb Conc 31.3 g/dL (32-36); Mean Corpuscular Volume 98.7 fL (80-100); RDW Coefficient of Variation 16.1 % (11.5-14.5); RDW Standard Deviation 58.1 fL (36.4-46.3); Red Blood Count 2.27 M/uL (4.2-5.4); White Blood Count 7.84 K/uL (4.8-10.8)
[2018-12-25] MEDS ORDERED: FUROSEMIDE 80 MG TAB PO SCH (09:00)
[2018-12-25 09:05] LABS: Albumin Level 2.4 gm/dl (3.4-5.0); Calcium 8.6 mg/dl (8.5-10.1); Est GFR (Non-African American) 21.5; Magnesium 2.4 mg/dl (1.8-2.4); Potassium 4.3 mmol/L (3.5-5.1)
[2018-12-25 09:07] LABS: Albumin Globulin Ratio 0.8 (0.9-2); Bilirubin,Total 1.1 mg/dl (0.2-1); Globulin 3.2 gm/dl (2.5-4.0); Platelet Count 98 K/uL (130-400); Platelet Estimate Decreased (Normal); Total Protein 5.6 gm/dl (6.4-8.2)
[2018-12-25] MEDS: ONDANSETRON INJ 2 MG/ML 2 ML VIAL IV PRN (14:24)
[2018-12-25] MEDS: ACETAMINOPHEN 650 MG SUPP PR PRN (14:41)
[2018-12-25] MEDS: MoRPHine SULFATE 2 MG/ML CARP IV PRN ×2 (15:24→21:53)
--- NOTE | 2018-12-25 16:02 | Hospitalist Progress Note ---
Date of Service December 25, 2018 Assessment & Plan (1) Complicated UTI (urinary tract infection): Urine & blood cultures on 12/23 growing E. coli. - Cefepime switched to ceftriaxone on 12/25 - No need to repeat blood cultures for Gram(-) bug - Switch to oral abx on discharge - Will need 7-day course (End date: 12/29) (2) Anemia: Baseline hgb ~9-10. Was 10 on admission, but dropped to 7.8 on 12/24 & 7.0 on 12/25. - Likely dilutional and poor bone marrow response as she has no signs of bleeding - Monitor hgb and for any signs of bleeding given she is on Plavix and anticoagulation - Will check iron labs and B12/folate as there have been none since 2018. (3) Thrombocytopenia: Normal platelets in the past with usual in 200-300 range. - Down to 163 on 12/23 & 98 on 12/25 - Possible suppressed from bacteremia and illness. No sign of bleeding as above - Monitor (4) Acute kidney injury superimposed on chronic kidney disease: Baseline creatinine is 1.5 - 1.8. On admission, creatinine was 2.0. - Received 2 L IV fluids in the ED - Holding further fluids for CHF. - On 12/24, Cr down to 1.8, but up to 2.1 on 12/25 - Reviewing the CrCl, this is only slightly changing, so I feel this is not really reflecting large changes in kidney function. (5) Chronic diastolic congestive heart failure: Follows with [facility]. Not in exacerbation, though per Ms. Rothman, she can tip quickly. - Monitor volume status - Holding IV fluids at this point. - Normally takes furosemide 80mg PO BID - Baseline weight is 75 - 77 kg. - On 12/24, weight was 77.6 kg. Restart Lasix on 12/25 at 80mg PO daily. (6) Sepsis: Due to bacteremia and UTI. - Resolved (7) Essential hypertension: BP was initially slightly elevated; today 100/50, but stable from yesterday evening. - Continue Cardizem and metoprolol - Hold further IV fluids for CHF (8) Diabetes 1.5, managed as type 2: A1c was 7.0% in 12/2018. - Lowered her home dose of Lantus to 15 units QHS (from 25 units) for decreased oral intake - Sliding scale insulin (9) Non-STEMI (non-ST elevated myocardial infarction): Last admission had NSTEMI with LAD stent on 12/08/2018. - Continue Plavix, beta-abilio, Imdur. - Was on ASA for 1 week, then stopped to avoid triple therapy (10) Atrial fibrillation, rapid: Long-standing. Was in RVR on admission; now improved to ~60-80 bpm. - Continue beta-abilio, calcium channel abilio, and digoxin - Digoxin level on 12/25 was 1.8 (normal) (11) Hyperlipidemia: - Continue Lipitor (12) GERD (gastroesophageal reflux disease): - Continue Protonix (13) DVT prophylaxis: On apixaban for her afib Subjective Still having some abdominal pain in the afternoon. This morning, she was doing well and ate breakfast without any issues. Review of Systems Review of Systems: All systems reviewed & are unremarkable except as noted in HPI & below Physical Exam Constitutional: WD/WN, vitals as above Eyes: EOM intact bilaterally; no conjunctival abnormality ENMT: external ear and nose normal, oropharynx normal Neck: trachea midline, no thyromegaly normal visual inspection Respiratory: normal respiratory effort, lungs clear to auscultation no respiratory distress Cardiovascular: Rate/Rhythm: regular rhythm; not tachycardic Gastrointestinal (Abdomen): Inspection/Auscultation: abdomen normal to inspection; abdomen not distended Musculoskeletal: no cyanosis or clubbing, extremities motor strength 5/5 Skin: no rashes, warm and dry Neurologic: moves all extremities and awake Psychiatric: Orientation: alert, oriented to person and cooperative Results & Data Vital Signs (Past 12 Hours) Vital Signs Temp Pulse Pulse Resp BP Pulse Ox 12/25/18 15:47 36.8 C 63 20 127/42 L 96 12/25/18 10:52 36.9 C 89 19 97/82 L 97 12/25/18 07:19 36.6 C 80 18 106/50 L 97 12/25/18 04:14 36.6 C 69 17 116/68 95 PG Care Time/CCT Total # of Minutes Spent Total Time Spent with Patient: Total time spent is greater than 50% in coordination of care (as documented) at patient's floor/unit and/or counseling patient: (1) Anemia Anemia type: unspecified type Qualified Code(s): D64.9 - Anemia, unspecified (2) Sepsis Sepsis acute organ dysfunction status: with acute organ dysfunction Sepsis type: sepsis due to unspecified organism Severe sepsis acute organ dysfunction type: unspecified Severe sepsis shock status: without septic shock Qualified Code(s): A41.9 - Sepsis, unspecified organism; R65.20 - Severe sepsis without septic shock (3) GERD (gastroesophageal reflux disease) Esophagitis presence: esophagitis presence not specified Qualified Code(s): K21.9 - Gastro-esophageal reflux disease without esophagitis
[2018-12-25] MEDS: cefTRIAXone SODIUM 1,000 MG in DEXTROSE 5% 50 ML IV SCH (17:08)
[2018-12-25] MEDS: ACETAMINOPHEN 325 MG TAB PO PRN (20:24)
[2018-12-25] MEDS: ATORVASTATIN 40 MG TAB PO SCH (20:43)
[2018-12-25] MEDS: INSULIN GLARGINE SOLOSTAR 100 UNITS/ML 3 ML PEN SQ SCH (20:47)
[2018-12-25] MEDS: TAPENTADOL HCL 50 MG TAB PO PRN (21:14)
[2018-12-26 05:35] LABS: Hematocrit (blood only) 23.4 % (37-47); Hemoglobin 7.4 g/dL (12.0-16.0); Mean Corpuscular Hemoglobin 31.6 pg (25-34); Mean Corpuscular Hgb Conc 31.6 g/dL (32-36); Mean Platelet Volume 11.2 fL (7.4-10.4); Platelet Count 113 K/uL (130-400); RDW Standard Deviation 57.4 fL (36.4-46.3); Red Blood Count 2.34 M/uL (4.2-5.4)
[2018-12-26 05:59] LABS: BUN Creatinine Ratio 20.6 (10-20); Calcium 8.3 mg/dl (8.5-10.1); Creatinine Clr Calc Pharmacy 16.3 ml/min; Est GFR (African American) 20.7; Est GFR (Non-African American) 17.9; Potassium 4.8 mmol/L (3.5-5.1)
[2018-12-26] MEDS: LEVOTHYROXINE SODIUM 50 MCG TABLET PO SCH (06:43)
[2018-12-26] MEDS: INSULIN ASPART 100 UNITS/ML 3 ML PEN SC SCH ×4 (08:59→21:57)
[2018-12-26] MEDS: APIXABAN 2.5 MG TAB PO SCH ×2 (09:02→21:53)
[2018-12-26] MEDS: FLUTICASONE PROPIONATE NA SPR 16 GM BTL SCH ×2 (09:02→21:52)
[2018-12-26] MEDS: ISOSORBIDE MONO EXTENDED REL 30 MG TABCR PO SCH (09:02)
[2018-12-26] MEDS: POTASSIUM CHLORIDE 20 MEQ TABCR PO SCH ×2 (09:03→21:54)
[2018-12-26] MEDS: MAGNESIUM OXIDE 400 MG TAB PO SCH (09:03)
[2018-12-26] MEDS: CEROVITE ADV FORMULA TAB PO SCH ×2 (09:04→21:56)
[2018-12-26] MEDS: PANTOprazole 40 MG TAB PO SCH (09:05)
[2018-12-26] MEDS: CLOPIDOGREL BISULFATE 75 MG TAB PO SCH (09:05)
[2018-12-26] MEDS: GABAPENTIN 400 MG CAP PO SCH ×3 (09:05→21:55)
[2018-12-26] MEDS: CYANOCOBALAMIN 500 MCG TABLET (VITAMIN B-12) PO SCH (09:06)
[2018-12-26] MEDS: METOPROLOL SUCC 50MG EXT REL TAB PO SCH ×2 (09:06→21:56)
[2018-12-26] MEDS: dilTIAZem ER 180 MG CAPCR PO SCH (09:06)
[2018-12-26] MEDS: LACTOBACILLUS ACIDOPHILUS 1 GM PACK PO SCH ×3 (09:08→17:56)
[2018-12-26] MEDS: ONDANSETRON INJ 2 MG/ML 2 ML VIAL IV PRN ×2 (11:23→17:43)
[2018-12-26] MEDS: MoRPHine SULFATE 2 MG/ML CARP IV PRN ×2 (13:23→17:44)
[2018-12-26] MEDS ORDERED: NORMOSOL-R 500 ML IV ONE (13:47)
--- NOTE | 2018-12-26 13:49 | Hospitalist Progress Note ---
Date of Service December 26, 2018 Assessment & Plan (1) Complicated UTI (urinary tract infection): Urine & blood cultures on 12/23 growing E. coli. - Cefepime switched to ceftriaxone on 12/25 - No need to repeat blood cultures for Gram(-) bug - Switch to oral abx on discharge - Will need 7-day course (End date: 12/29) - Doing well. No fevers. (2) Acute kidney injury superimposed on chronic kidney disease: Baseline creatinine is 1.5 - 1.8. On admission, creatinine was 2.0. - Received 2 L IV fluids in the ED - Holding further fluids for CHF. - On 12/24, Cr down to 1.8, but up to 2.5 on 12/26 - Will give 500 mL bolus today and recheck tomorrow. Possibly re-initiated her Lasix too early. Holding today. (3) Anemia: Baseline hgb ~9-10. Was 10 on admission, but dropped to 7.8 on 12/24 & 7.0 on 12/25. - Likely dilutional and poor bone marrow response as she has no signs of bleeding - Monitor hgb and for any signs of bleeding given she is on Plavix and anticoagulation - Will check iron labs and B12/folate as there have been none since 2018. - Stable on 12/26 (4) Thrombocytopenia: Normal platelets in the past with usual in 200-300 range. - Down to 163 on 12/23 & 98 on 12/25 - Possible suppressed from bacteremia and illness. No sign of bleeding as above - Monitor - Stable on 12/26. (5) Chronic diastolic congestive heart failure: Follow[facility] with [facility]. Not in exacerbation, though per Ms. Rothman, she can tip quickly. - Monitor volume status - Holding IV fluids at this point. - Normally takes furosemide 80mg PO BID - Baseline weight is 75 - 77 kg. - On 12/24, weight was 77.6 kg. Restarted Lasix on 12/25 at 80mg PO daily, but then had PATY. Hold today. (6) Sepsis: Due to bacteremia and UTI. - Resolved (7) Essential hypertension: BP was initially slightly elevated; today 100/50, but stable from evening. - Continue Cardizem and metoprolol - Hold further IV fluids for CHF (8) Diabetes 1.5, managed as type 2: A1c was 7.0% in 12/2018. - Lowered her home dose of Lantus to 15 units QHS (from 25 units) for decreased oral intake - Sliding scale insulin (9) Non-STEMI (non-ST elevated myocardial infarction): Last admission had NSTEMI with LAD stent on 12/08/2018. - Continue Plavix, beta-abilio, Imdur. - Was on ASA for 1 week, then stopped to avoid triple therapy (10) Atrial fibrillation, rapid: Long-standing. Was in RVR on admission; now improved to ~60-80 bpm. - Continue beta-abilio, calcium channel abilio, and digoxin - Digoxin level on 12/25 was 1.8 (normal) (11) Hyperlipidemia: - Continue Lipitor (12) GERD (gastroesophageal reflux disease): - Continue Protonix (13) DVT prophylaxis: On apixaban for her afib Subjective Actually feels quite well this morning. She has not had any return of the right sided flank and groin pain from yesterday. She had breakfast and felt quite well. She is slightly dismayed that she has not been discharged today, but is quite understanding overall. Otherwise reports no fevers, chills, abdominal pain, or other concerning symptoms. Review of Systems Review of Systems: All systems reviewed & are unremarkable except as noted in HPI & below Physical Exam Constitutional: WD/WN, vitals as above Eyes: EOM intact bilaterally; no conjunctival abnormality ENMT: external ear and nose normal, oropharynx normal Neck: trachea midline, no thyromegaly normal visual inspection Respiratory: normal respiratory effort, lungs clear to auscultation no respiratory distress Cardiovascular: Rate/Rhythm: regular rhythm; not tachycardic Gastrointestinal (Abdomen): Inspection/Auscultation: abdomen normal to inspection; abdomen not distended Musculoskeletal: no cyanosis or clubbing, extremities motor strength 5/5 Skin: no rashes, warm and dry Neurologic: moves all extremities and awake Psychiatric: Orientation: alert, oriented to person and cooperative Results & Data Vital Signs (Past 12 Hours) Vital Signs Temp Pulse Resp BP Pulse Ox 12/26/18 07:12 36.6 C 61 18 129/82 94 PG Care Time/CCT Total # of Minutes Spent Total Time Spent with Patient: Total time spent is greater than 50% in coordination of care (as documented) at patient's floor/unit and/or counseling patient: (1) Anemia Anemia type: unspecified type Qualified Code(s): D64.9 - Anemia, unspecified (2) Sepsis Sepsis acute organ dysfunction status: with acute organ dysfunction Sepsis type: sepsis due to unspecified organism Severe sepsis acute organ dysfunction type: unspecified Severe sepsis shock status: without septic shock Qualified Code(s): A41.9 - Sepsis, unspecified organism; R65.20 - Severe sepsis without septic shock (3) GERD (gastroesophageal reflux disease) Esophagitis presence: esophagitis presence not specified Qualified Code(s): K21.9 - Gastro-esophageal reflux disease without esophagitis
[2018-12-26] MEDS ORDERED: NORMOSOL-R 1,000 ML IV SCH (15:00)
[2018-12-26] MEDS: DIGOXIN 0.125 MG TAB PO SCH (15:15)
[2018-12-26 17:24] LABS: Appearance Urine Clear (Clear); Bacteria Urine Automated Negative (Negative); Bilirubin Urine Negative (Negative); Blood Urine Negative (Negative); Color Urine Dark Yellow; Epithelial Cell Urine Auto >30 /lpf (0-5); Glucose Urine UA Negative (Negative); Ketones Urine Trace (Negative); Leukocyte Esterase Urine 1+ (Negative); Nitrite Urine Negative (Negative); Protein Urine Negative (Negative); RBC Urine Automated 0-4 /hpf (0-4); Specific Gravity Urine 1.022 (1.000-1.030); Urobilinogen Urine Negative (Negative)
[2018-12-26 17:45] LABS: Sodium Random Urine < 5 mmol/L
[2018-12-26] MEDS: cefTRIAXone SODIUM 1,000 MG in DEXTROSE 5% 50 ML IV SCH (17:47)
[2018-12-26] MEDS: ATORVASTATIN 40 MG TAB PO SCH (21:54)
[2018-12-26] MEDS: INSULIN GLARGINE SOLOSTAR 100 UNITS/ML 3 ML PEN SQ SCH (21:57)
[2018-12-27] MEDS: ONDANSETRON INJ 2 MG/ML 2 ML VIAL IV PRN (00:10)
[2018-12-27 05:21] LABS: Hematocrit (blood only) 25.1 % (37-47); Hemoglobin 7.8 g/dL (12.0-16.0); Mean Corpuscular Hemoglobin 30.5 pg (25-34); Mean Corpuscular Hgb Conc 31.1 g/dL (32-36); Mean Platelet Volume 10.7 fL (7.4-10.4); Nucleated RBC # (auto) 0.12 K/uL (0-0); Nucleated RBC % (auto) 1.6 %; Platelet Count 134 K/uL (130-400); RDW Coefficient of Variation 16.2 % (11.5-14.5); RDW Standard Deviation 57.6 fL (36.4-46.3); Red Blood Count 2.56 M/uL (4.2-5.4); White Blood Count 7.83 K/uL (4.8-10.8)
[2018-12-27 05:53] LABS: BUN Creatinine Ratio 21.8 (10-20); Calcium 8.3 mg/dl (8.5-10.1); Creatinine Clr Calc Pharmacy 16.2 ml/min; Est GFR (African American) 20.5; Est GFR (Non-African American) 17.7; Potassium 5.9 mmol/L (3.5-5.1)
[2018-12-27 06:04] LABS: Ferritin 358.4 ng/ml (8-388)
[2018-12-27] MEDS: LEVOTHYROXINE SODIUM 50 MCG TABLET PO SCH (06:15)
[2018-12-27 07:43] LABS: Vitamin B12 1558 pg/ml (211-911)
[2018-12-27 07:44] LABS: Folate (Folic Acid) > 24.00 ng/ml (>5.38)
[2018-12-27] MEDS: LACTOBACILLUS ACIDOPHILUS 1 GM PACK PO SCH ×3 (08:27→16:47)
[2018-12-27] MEDS: FLUTICASONE PROPIONATE NA SPR 16 GM BTL SCH ×2 (08:28→20:52)
[2018-12-27] MEDS: APIXABAN 2.5 MG TAB PO SCH ×2 (08:29→20:51)
[2018-12-27] MEDS: ISOSORBIDE MONO EXTENDED REL 30 MG TABCR PO SCH (08:29)
[2018-12-27] MEDS: POTASSIUM CHLORIDE 20 MEQ TABCR PO SCH ×2 (08:30→20:49)
[2018-12-27] MEDS: GABAPENTIN 400 MG CAP PO SCH ×3 (08:30→20:51)
[2018-12-27] MEDS: MAGNESIUM OXIDE 400 MG TAB PO SCH (08:30)
[2018-12-27] MEDS: CEROVITE ADV FORMULA TAB PO SCH ×2 (08:30→20:51)
[2018-12-27] MEDS: dilTIAZem ER 180 MG CAPCR PO SCH (08:31)
[2018-12-27] MEDS: METOPROLOL SUCC 50MG EXT REL TAB PO SCH ×2 (08:31→20:51)
[2018-12-27] MEDS: CLOPIDOGREL BISULFATE 75 MG TAB PO SCH (08:31)
[2018-12-27] MEDS: PANTOprazole 40 MG TAB PO SCH (08:31)
[2018-12-27] MEDS: CYANOCOBALAMIN 500 MCG TABLET (VITAMIN B-12) PO SCH (08:32)
[2018-12-27] MEDS: INSULIN ASPART 100 UNITS/ML 3 ML PEN SC SCH ×4 (08:34→20:54)
[2018-12-27] MEDS: ACETAMINOPHEN 325 MG TAB PO PRN (09:22)
[2018-12-27] MEDS ORDERED: SODIUM CHLORIDE 0.9% 1000ML 500 ML IV ONE (12:27)
[2018-12-27] MEDS ORDERED: CALCIUM GLUCONATE 10% 1,000 MG in SODIUM CHLORIDE 0.9% 50 ML IV STA (12:38)
[2018-12-27] MEDS: cefTRIAXone SODIUM 1,000 MG in DEXTROSE 5% 50 ML IV SCH (17:09)
--- NOTE | 2018-12-27 18:00 | Hospitalist Progress Note ---
Date of Service December 27, 2018 Assessment & Plan (1) Complicated UTI (urinary tract infection): Urine & blood cultures on 12/23 growing E. coli. - Cefepime switched to ceftriaxone on 12/25 - No need to repeat blood cultures for Gram(-) bug - Switch to oral abx on discharge - Will need 7-day course (End date: 12/29) - Feeling well, though very tired. (2) Acute kidney injury superimposed on chronic kidney disease: Baseline creatinine is 1.5 - 1.8. On admission, creatinine was 2.0. - Received 2 L IV fluids in the ED, then held further fluids for concern for overloading her due to her CHF. - On 12/24, Cr down to 1.8, but up to 2.5 on 12/26. She had received 1 dose of her Lasix 80mg PO on 12/25 as her weight was going up, and I thought she was getting overloaded. - Got 500 mL bolus on 12/26. Recheck on 12/27 still has Cr at 2.45. - On 12/27, K was 5.9. EKG without any changes. Received calcium & IV fluids. Recheck pending. Will give bolus and small dose of Lasix if still high. (3) Anemia: Baseline hgb ~9-10. Was 10 on admission, but dropped to 7.8 on 12/24 & 7.0 on 12/25. - Likely dilutional and poor bone marrow response as she has no signs of bleeding - Monitor hgb and for any signs of bleeding given she is on Plavix and anticoagulation - Iron labs are all normal. B12/folate normal. - Hgb up to 7.8 on 12/27 (4) Thrombocytopenia: Normal platelets in the past with usual in 200-300 range. - Down to 163 on 12/23 & 98 on 12/25 - Possible suppressed from bacteremia and illness. No sign of bleeding as above -Improved on 12/27 to 134. (5) Chronic diastolic congestive heart failure: Follow[facility] with [facility]. Not in exacerbation, though per Ms. Rothman, she can tip quickly. - Monitor volume status - Holding IV fluids at this point. - Normally takes furosemide 80mg PO BID - Baseline weight is 75 - 77 kg. - On 12/24, weight was 77.6 kg. Restarted Lasix on 09/21 at 80mg PO daily, but then had PATY. Hold today. IVF as above. (6) Sepsis: Due to bacteremia and UTI. - Resolved (7) Essential hypertension: BP was initially slightly elevated; today 100/50, but stable from yesterday evening. - Continue Cardizem and metoprolol (8) Diabetes 1.5, managed as type 2: A1c was 7.0% in 12/2018. - Lowered her home dose of Lantus to 15 units QHS (from 25 units) for decreased oral intake - Sliding scale insulin (9) Non-STEMI (non-ST elevated myocardial infarction): Last admission had NSTEMI with LAD stent on 12/08/2018. - Continue Plavix, beta-abilio, Imdur. - Was on ASA for 1 week, then stopped to avoid triple therapy (10) Atrial fibrillation, rapid: Long-standing. Was in RVR on admission; now improved to ~60-80 bpm. - Continue beta-abilio, calcium channel abilio, and digoxin - Digoxin level on 12/25 was 1.8 (normal) (11) Hyperlipidemia: - Continue Lipitor (12) GERD (gastroesophageal reflux disease): - Continue Protonix (13) DVT prophylaxis: On apixaban for her afib Subjective To me she reported that she felt well, but to Idalmis Rothman she reported that she felt wiped out. Otherwise denies any review of systems Review of Systems Review of Systems: All systems reviewed & are unremarkable except as noted in HPI & below Physical Exam Constitutional: WD/WN, vitals as above + lethargic Eyes: EOM intact bilaterally; no conjunctival abnormality ENMT: external ear and nose normal, oropharynx normal Neck: trachea midline, no thyromegaly normal visual inspection Respiratory: normal respiratory effort, lungs clear to auscultation no respiratory distress Cardiovascular: Rate/Rhythm: regular rhythm; not tachycardic Gastrointestinal (Abdomen): Inspection/Auscultation: abdomen normal to inspection; abdomen not distended Musculoskeletal: no cyanosis or clubbing, extremities motor strength 5/5 Skin: no rashes, warm and dry Neurologic: moves all extremities and awake Psychiatric: Orientation: alert, oriented to person and cooperative Results & Data Vital Signs (Past 12 Hours) Vital Signs Temp Pulse Resp BP Pulse Ox 12/27/18 15:10 37.1 C 55 L 16 118/76 96 12/27/18 14:46 75 18 108/73 100 12/27/18 06:55 36.5 C 65 18 136/74 92 PG Care Time/CCT Total # of Minutes Spent Total Time Spent with Patient: Total time spent is greater than 50% in coordination of care (as documented) at patient's floor/unit and/or counseling patient: (1) Anemia Anemia type: unspecified type Qualified Code(s): D64.9 - Anemia, unspecified (2) Sepsis Sepsis acute organ dysfunction status: with acute organ dysfunction Sepsis type: sepsis due to unspecified organism Severe sepsis acute organ dysfunction type: unspecified Severe sepsis shock status: without septic shock Qualified Code(s): A41.9 - Sepsis, unspecified organism; R65.20 - Severe sepsis without septic shock (3) GERD (gastroesophageal reflux disease) Esophagitis presence: esophagitis presence not specified Qualified Code(s): K21.9 - Gastro-esophageal reflux disease without esophagitis
[2018-12-27 18:30] LABS: BUN Creatinine Ratio 20.2 (10-20); Calcium 8.7 mg/dl (8.5-10.1); Creatinine Clr Calc Pharmacy 14.7 ml/min; Est GFR (African American) 18.3; Est GFR (Non-African American) 15.7; Potassium 4.7 mmol/L (3.5-5.1)
[2018-12-27] MEDS: ATORVASTATIN 40 MG TAB PO SCH (20:51)
[2018-12-27] MEDS: INSULIN GLARGINE SOLOSTAR 100 UNITS/ML 3 ML PEN SQ SCH (20:57)
[2018-12-28] MEDS: LEVOTHYROXINE SODIUM 50 MCG TABLET PO SCH (06:08)
[2018-12-28 07:03] LABS: Hematocrit (blood only) 26.1 % (37-47); Mean Corpuscular Hemoglobin 30.5 pg (25-34); Mean Corpuscular Hgb Conc 30.7 g/dL (32-36); Mean Corpuscular Volume 99.6 fL (80-100); Mean Platelet Volume 11.7 fL (7.4-10.4); Nucleated RBC # (auto) 0.13 K/uL (0-0); Nucleated RBC % (auto) 2.1 %; Platelet Count 157 K/uL (130-400); RDW Coefficient of Variation 16.3 % (11.5-14.5); RDW Standard Deviation 58.1 fL (36.4-46.3); Red Blood Count 2.62 M/uL (4.2-5.4); White Blood Count 6.01 K/uL (4.8-10.8)
[2018-12-28 07:41] LABS: BUN Creatinine Ratio 22.7 (10-20); Calcium 8.6 mg/dl (8.5-10.1); Creatinine Clr Calc Pharmacy 17.7 ml/min; Est GFR (Non-African American) 19.8; Magnesium 2.3 mg/dl (1.8-2.4); Potassium 4.5 mmol/L (3.5-5.1)
[2018-12-28] MEDS: FLUTICASONE PROPIONATE NA SPR 16 GM BTL SCH ×2 (09:02→20:13)
[2018-12-28] MEDS: PANTOprazole 40 MG TAB PO SCH (09:03)
[2018-12-28] MEDS: CEROVITE ADV FORMULA TAB PO SCH ×2 (09:03→20:14)
[2018-12-28] MEDS: GABAPENTIN 400 MG CAP PO SCH ×3 (09:03→20:14)
[2018-12-28] MEDS: CYANOCOBALAMIN 500 MCG TABLET (VITAMIN B-12) PO SCH (09:03)
[2018-12-28] MEDS: APIXABAN 2.5 MG TAB PO SCH ×2 (09:04→20:13)
[2018-12-28] MEDS: CLOPIDOGREL BISULFATE 75 MG TAB PO SCH (09:04)
[2018-12-28] MEDS: MAGNESIUM OXIDE 400 MG TAB PO SCH (09:04)
[2018-12-28] MEDS: POTASSIUM CHLORIDE 20 MEQ TABCR PO SCH ×2 (09:04→20:13)
[2018-12-28] MEDS: LACTOBACILLUS ACIDOPHILUS 1 GM PACK PO SCH ×3 (09:05→17:35)
[2018-12-28] MEDS: METOPROLOL SUCC 50MG EXT REL TAB PO SCH ×2 (09:08→20:15)
[2018-12-28] MEDS: ISOSORBIDE MONO EXTENDED REL 30 MG TABCR PO SCH (09:08)
[2018-12-28] MEDS: dilTIAZem ER 180 MG CAPCR PO SCH (09:08)
[2018-12-28] MEDS: INSULIN ASPART 100 UNITS/ML 3 ML PEN SC SCH ×4 (09:10→20:58)
--- NOTE | 2018-12-28 10:50 | Nephrology Consultation ---
Date of Consultation December 28, 2018 Assessment & Plan (1) PATY (acute kidney injury): Tiffanie has stage 3 chronic kidney disease with baseline creatinine around 1.5, secondary to microvascular disease and residual renal impairment from prior recurrent acute kidney injury. Admitted to the hospital with the UTI and bacteremia with E coli, developed AK I, creatinine peaked to 2.7, currently started to improve. Creatinine down to 2.3 this morning. Prior urinalysis was negative for hematuria proteinuria, renal ultrasound unremarkable. CT abdomen pelvis during admission was otherwise unremarkable. At home she has been on Lasix 80 mg twice a day which is currently on hold. Volume status seems stable, no clear sign of volume overload. Breathing comfortably. Blood pressure well controlled. --agree with continuing to hold diuretics for now as renal function recovering from recent acute kidney injury, no sign of volume overload. --monitor renal function with daily renal panel, avoid hypotension --monitor daily intake and output if urine output drop significantly, will resume diuretics at a lower dose and adjust dose as needed --check iron study, may need Venofer or SUN Will follow Thank you for allowing me to participate in your patient's care. It was a pleasure to see Tiffanie (2) Chronic kidney disease, stage III (moderate): (3) Essential hypertension: (4) Acute UTI: (5) Secondary hyperparathyroidism: (6) Anemia: History of Present Illness Reason for Consultation: PATY with history of CKD. Attending Physician: Julián Healy DO History of Present Illness Tiffanie Porter is a 83-year-old female with past medical history significant for stage 3 chronic kidney disease, hypertension, diabetes CHF with diastolic dysfunction, AFib admitted to the hospital with UTI and bacteremia. Nephrology consult was requested for management of acute kidney injury with history of CKD. Electronic medical records including labs and imaging are reviewed in detail during patient's visit. Tiffanie presented the hospital with 1 day history of cough, fever and chills. She was found to have UTI and bacteremia. Blood and urine culture grew E coli, currently on ceftriaxone. She was found to have acute kidney injury, creatinine of peaked up up to 2.7 which slightly started to improve, creatinine was 2.3 this morning. Electrolyte acceptable. Blood pressure has been reasonably well controlled. Has stage III CKD secondary to microvascular disease and residual renal effect from recurrent acute kidney injury, baseline creatinine around 1.5 with some variability and history of recurrent acute kidney injury. Prior urinalysis was negative for proteinuria hematuria. Renal ultrasound was otherwise unremarkable. Has CHF with diastolic dysfunction, EF well preserved. Has been on Lasix 80 mg IV twice a day, currently on hold. She complains of feeling extremely tired and weak but denies shortness of breath or chest pain. No nausea, abdominal pain, diarrhea, dysuria hematuria. Allergies Allergy/AdvReac Type Severity Reaction Status Date / Time shellfish derived Allergy Severe ANAPHYLAXIS Verified 12/23/18 13:49 iodine Allergy Intermediate ANAPHYLAXIS Verified 12/23/18 13:49 lisinopril Allergy Verified 12/23/18 13:49 oxybutynin [From Ditropan] Allergy Verified 12/23/18 13:49 sertraline [From Zoloft] Allergy Verified 12/23/18 13:49 paroxetine AdvReac Unknown GI UPSET Verified 12/23/18 13:49 Home Medications Home Medications Medication Instructions Recorded Confirmed Type PreserVision AREDS-2 1 tab PO BID 12/14/17 12/23/18 History cholecalciferol (vitamin D3) 1,000 unit PO QAM 12/14/17 12/23/18 History [Vitamin D3] cyanocobalamin (vitamin B-12) 1,000 mcg PO QAM 12/14/17 12/23/18 History [Vitamin B-12] acetaminophen [Tylenol Arthritis 2 tabs PO UD PRN 08/14/18 12/23/18 History Pain] fluticasone propionate 1 spray INTRANASAL BID 08/14/18 12/23/18 History isosorbide mononitrate 30 mg PO QAM 08/14/18 12/23/18 History pantoprazole 40 mg PO QAM 08/14/18 12/23/18 History atorvastatin 80 mg tablet 80 mg PO HS 90 Days #90 tab 09/16/18 12/23/18 Rx levothyroxine 50 mcg tablet 50 mcg PO QAM 30 Days #30 tab 10/05/18 12/23/18 Rx metoprolol succinate ER 50 mg 100 mg PO BID #360 tab 11/16/18 12/23/18 Rx tablet,extended release 24 hr insulin aspart (U-100) 100 unit/mL 3 units SUBCUT TIDM #15 ml 11/17/18 12/23/18 Rx (3 mL) subcutaneous pen insulin glargine (U-100) 100 25 units SUBCUT HS #15 ml 11/17/18 12/23/18 Rx unit/mL (3 mL) subcutaneous pen diclofenac 1 % topical gel 2 g TOPICAL HS PRN gm 11/20/18 12/23/18 History diltiazem ER 180 mg 180 mg PO QAM #90 tab 11/20/18 12/23/18 History tablet,extended release 24 hr nystatin 100,000 unit/gram topical 1 appln TOPICAL BID PRN #2 gm 11/20/18 12/23/18 History ointment apixaban 2.5 mg tablet 2.5 mg PO BID #60 tab 11/22/18 12/23/18 Rx albuterol sulfate HFA 90 2 puffs INHALATION Q4H PRN #2 gm 11/25/18 12/23/18 Rx mcg/actuation aerosol inhaler furosemide 40 mg tablet 80 mg PO BID tab 11/25/18 12/23/18 History digoxin 125 mcg PO Q2D 12/06/18 12/23/18 History magnesium 400 mg (as magnesium 400 mg PO QAM cap 12/14/18 12/23/18 History oxide) capsule potassium chloride ER 20 mEq 20 meq PO BID tab 12/14/18 12/23/18 History tablet,extended release allopurinol 100 mg tablet 100 mg PO QAM tab 12/16/18 12/23/18 History gabapentin 400 mg capsule 400 mg PO TID #270 cap 12/16/18 12/23/18 Rx tapentadol 50 mg tablet 50 mg PO BID PRN #60 tab 12/16/18 12/23/18 Rx clopidogrel [Plavix] 75 mg PO QAM 12/23/18 12/23/18 History Patient History Medical History Anxiety (Chronic) GERD (gastroesophageal reflux disease) (Chronic) COPD (chronic obstructive pulmonary disease) (Chronic) Hypothyroidism (Chronic) Managed with levothyroxine supplementation Chronic kidney disease (CKD) (Chronic) Stage III, baseline Cr 1.3-1.5mg/dL. Complicated with normocytic anemia and secondary hyperparathyroidism. Followed by nephrology. Mitral regurgitation (Chronic) Obstructive sleep apnea (Chronic) Long standing. Managed with CPAP nightly. CPAP titration polysomnography (07/14). Atrial fibrillation (Chronic) Diastolic congestive heart failure (Chronic) Asthma (Chronic) Anemia (Chronic) Chronic macrocytic Falls frequently (Chronic) Gait disorder (Chronic) HTN (hypertension) (Chronic) Macular degeneration (Chronic) Pneumonia (Ruled-out) Effusion of knee joint right (Inactive) Surgical History S/P implantation of urinary electronic stimulator device (Resolved) H/O colonoscopy (Resolved) History of repair of rectocele S/P breast biopsy S/P section S/P cholecystectomy S/P hysterectomy Family History Other Coronary heart disease Social History Preferred Language: Guatemalan Communication Ability: Effective Visual Impairment: No Limitations Hearing Ability: Normal Ground Products Director Required: No Beliefs That Will Affect Care: None marital status: Life Partner Current Living Situation: Significant Other current occupational status: retired Feels Safe at Home: Yes Smoking Status: Never smoker Second Hand Exposure: No ; Hx Alcohol Use: No Hx Substance Use: No Childhood Exposure to Second-Hand Smoke: No Review of Systems Review of Systems: All systems reviewed & are unremarkable except as noted in HPI & below Physical Exam Constitutional: WD/WN, vitals as above + ill appearing; no acute distress Eyes: PERRL, conjunctivae normal, anicteric sclerae ENMT: external ear and nose normal, oropharynx normal Ears: no hearing impairment Neck: trachea midline Respiratory: normal respiratory effort, lungs clear to auscultation no cough Auscultation: no crackles, no rales and no wheezes Cardiovascular: RRR, no murmur, no edema Gastrointestinal (Abdomen): normal bowel sounds, soft, nontender, no hepatosplenomegaly Percussion/Palpation: abdomen nontender, no guarding and abdomen not rigid Musculoskeletal: Extremities: extremities normal to inspection Gait: normal gait Skin: no rashes, warm and dry Neurologic: moves all extremities and awake Psychiatric: A+Ox3, euthymic affect Results & Data Vital Signs (Past 12 Hours) Vital Signs Temp Pulse Pulse Resp BP Pulse Ox 12/28/18 09:06 80 139/77 12/28/18 08:07 36.6 C 61 16 144/75 H 93 12/27/18 23:40 36.4 C L 70 16 121/73 95 PG Care Time/CCT Total # of Minutes Spent Total Time Spent with Patient: Total time spent is greater than 50% in coordination of care (as documented) at patient's floor/unit and/or counseling patient: (1) Anemia Anemia type: unspecified type Qualified Code(s): D64.9 - Anemia, unspecified
[2018-12-28] MEDS ORDERED: FUROSEMIDE 80 MG in SYRINGE 0 ML IV ONE (16:19)
[2018-12-28] MEDS: DIGOXIN 0.125 MG TAB PO SCH (16:23)
[2018-12-28] MEDS: cefTRIAXone SODIUM 1,000 MG in DEXTROSE 5% 50 ML IV SCH (17:37)
--- NOTE | 2018-12-28 19:09 | Hospitalist Progress Note ---
Date of Service December 28, 2018 Assessment & Plan (1) Complicated UTI (urinary tract infection): UTI plus bacteremiapresent on admissiontomorrow finishes 7 days of IV Rocephin, this should be adequate IV coverage, but given that she is still having a degree of sweats, we will then transition her to an oral third- generation cephalosporin. (2) Acute kidney injury superimposed on chronic kidney disease: Baseline creatinine is 1.5 - 1.8. On admission, creatinine was 2.0. -Continue to follow. Diuresis as below. Basic metabolic panel in the a.m. (3) Anemia: Baseline hgb ~9-10. Was 10 on admission, but dropped to 7.8 on 12/24 & 7.0 on 12/25. - Likely dilutional and poor bone marrow response as she has no signs of bleeding -Continue to follow, clinically appears stable (4) Thrombocytopenia: Normal platelets in the past with usual in 200-300 range. - Down to 163 on 12/23 & 98 on 12/25 - Possible suppressed from bacteremia and illness. No sign of bleeding as above -Stable for outpatient follow-up (5) Chronic diastolic congestive heart failure: Apparently per CHF clinic she is somewhat brittle with this, and throughout the course of today she did appear to get somewhat volume overloaded/pulmonary edema. Lasix had been held due to elevated creatinine, now resumed IV. And follow-up late this evening she seems to be improving. Continue to follow from a plateau in improvement, we will need to give additional dosing the current dose of Lasix, but if she shows (6) Sepsis: Due to bacteremia and UTI. - Resolved -Antibiotics as above (7) Essential hypertension: Blood pressures acceptable, continue current care (8) Diabetes 1.5, managed as type 2: A1c 7, sugars reasonable, continue to titrate insulins (9) Non-STEMI (non-ST elevated myocardial infarction): No active anginal symptoms. Continue home meds (10) Atrial fibrillation, rapid: Rate controlled, anticoagulated (11) Hyperlipidemia: - Continue Lipitor (12) GERD (gastroesophageal reflux disease): - Continue Protonix (13) DVT prophylaxis: On apixaban for her afib Subjective Seen 3 times throughout the day. This morning she was fatigued but otherwise no real complaints. Was hopeful to get home. No breathing issues no trouble eating or drinking, no fevers or chills, she did have some sweats last night. Otherwise just tired Asked to revisit this afternoon, she was more short of breath, she noted this is how she usually feels whenever she goes into congestive heart failure. She also noted her legs feeling a little more swollen Visited the third time this evening after Lasix given IV, she notes while her breathing does not yet feel good, she feels like she is back on track, and "2 more pees and I should be good" Review of Systems Review of Systems: All systems reviewed & are unremarkable except as noted in HPI & below Physical Exam Physical Exam: In general she is awake and alert pleasant no distress. HEENT normocephalic atraumatic mucous members are moist. Breathing unlabored, diminished bibasilar without any rales rhonchi or wheezes, on third exam she may be at a slightly bigger area of air entry subjectively. No accessory muscle use good effort. Skin shows no rashes no pallor or icterus. No focal neuro deficits. Results & Data Vital Signs (Past 12 Hours) Vital Signs Temp Pulse Pulse Pulse Pulse Resp BP 12/28/18 16:26 98.2 F 16 12/28/18 16:23 68 68 120/76 12/28/18 15:25 74 113/73 12/28/18 14:27 98.1 F 64 20 122/59 L 12/28/18 09:06 80 139/77 12/28/18 08:07 97.9 F 61 16 144/75 H Pulse Ox 12/28/18 16:26 12/28/18 16:23 99 12/28/18 15:25 94 12/28/18 14:27 93 12/28/18 09:06 12/28/18 08:07 93 PG Care Time/CCT Total # of Minutes Spent Total Time Spent with Patient: Total time spent is greater than 50% in coordination of care (as documented) at patient's floor/unit and/or counseling patient: (1) Anemia Anemia type: unspecified type Qualified Code(s): D64.9 - Anemia, unspecified (2) Sepsis Sepsis acute organ dysfunction status: with acute organ dysfunction Sepsis type: sepsis due to unspecified organism Severe sepsis acute organ dysfunction type: unspecified Severe sepsis shock status: without septic shock Qualified Code(s): A41.9 - Sepsis, unspecified organism; R65.20 - Severe sepsis without septic shock (3) GERD (gastroesophageal reflux disease) Esophagitis presence: esophagitis presence not specified Qualified Code(s): K21.9 - Gastro-esophageal reflux disease without esophagitis
[2018-12-28] MEDS: ATORVASTATIN 40 MG TAB PO SCH (20:14)
[2018-12-28] MEDS: INSULIN GLARGINE SOLOSTAR 100 UNITS/ML 3 ML PEN SQ SCH (20:59)
[2018-12-29] MEDS: LEVOTHYROXINE SODIUM 50 MCG TABLET PO SCH (05:38)
[2018-12-29 06:23] LABS: Hematocrit (blood only) 25.4 % (37-47); Hemoglobin 7.7 g/dL (12.0-16.0); Mean Corpuscular Hemoglobin 30.4 pg (25-34); Mean Corpuscular Hgb Conc 30.3 g/dL (32-36); Mean Corpuscular Volume 100.4 fL (80-100); Mean Platelet Volume 11.7 fL (7.4-10.4); Nucleated RBC # (auto) 0.12 K/uL (0-0); Nucleated RBC % (auto) 2.2 %; Platelet Count 163 K/uL (130-400); RDW Coefficient of Variation 16.6 % (11.5-14.5); RDW Standard Deviation 58.4 fL (36.4-46.3); Red Blood Count 2.53 M/uL (4.2-5.4); White Blood Count 5.66 K/uL (4.8-10.8)
[2018-12-29 06:56] LABS: Albumin Level 2.7 gm/dl (3.4-5.0); BUN Creatinine Ratio 22.4 (10-20); Calcium 8.3 mg/dl (8.5-10.1); Creatinine Clr Calc Pharmacy 20.4 ml/min; Est GFR (African American) 27.1; Est GFR (Non-African American) 23.4; Phosphorus 2.8 mg/dl (2.5-4.9); Potassium 3.8 mmol/L (3.5-5.1)
[2018-12-29] MEDS ORDERED: FUROSEMIDE 40 MG TAB PO SCH (09:00)
[2018-12-29] MEDS: LACTOBACILLUS ACIDOPHILUS 1 GM PACK PO SCH ×2 (09:12→12:29)
[2018-12-29] MEDS: FLUTICASONE PROPIONATE NA SPR 16 GM BTL SCH (09:12)
[2018-12-29] MEDS: CEROVITE ADV FORMULA TAB PO SCH (09:12)
[2018-12-29] MEDS: PANTOprazole 40 MG TAB PO SCH (09:12)
[2018-12-29] MEDS: GABAPENTIN 400 MG CAP PO SCH (09:13)
[2018-12-29] MEDS: CLOPIDOGREL BISULFATE 75 MG TAB PO SCH (09:13)
[2018-12-29] MEDS: CYANOCOBALAMIN 500 MCG TABLET (VITAMIN B-12) PO SCH (09:13)
[2018-12-29] MEDS: APIXABAN 2.5 MG TAB PO SCH (09:14)
[2018-12-29] MEDS: MAGNESIUM OXIDE 400 MG TAB PO SCH (09:14)
[2018-12-29] MEDS: ISOSORBIDE MONO EXTENDED REL 30 MG TABCR PO SCH (09:14)
[2018-12-29] MEDS: METOPROLOL SUCC 50MG EXT REL TAB PO SCH (09:14)
[2018-12-29] MEDS: POTASSIUM CHLORIDE 20 MEQ TABCR PO SCH (09:15)
[2018-12-29] MEDS: dilTIAZem ER 180 MG CAPCR PO SCH (09:15)
[2018-12-29] MEDS: INSULIN ASPART 100 UNITS/ML 3 ML PEN SC SCH ×2 (09:17→12:45)
--- NOTE | 2018-12-29 09:48 | Nephrology Progress Note ---
Date of Service December 29, 2018 Assessment & Plan (1) PATY (acute kidney injury): Tiffanie has stage 3 chronic kidney disease with baseline creatinine around 1.5, secondary to microvascular disease and residual renal impairment from prior recurrent acute kidney injury. Admitted to the hospital with the UTI and bacteremia with E coli, developed AK I, creatinine peaked to 2.7, currently started to improve. Creatinine down to 2.3 this morning. Prior urinalysis was negative for hematuria proteinuria, renal ultrasound unremarkable. CT abdomen pelvis during admission was otherwise unremarkable. At home she has been on Lasix 80 mg twice a day which is currently on hold. Volume status seems stable. Breathing comfortably. Blood pressure well controlled. Renal function improving --continuing to hold diuretics as pt ahs been negative --monitor renal function with daily renal panel, avoid hypotension --monitor daily intake and output if urine output drop significantly, will resume diuretics at a lower dose and adjust dose as needed --start on venofer and SUN Will follow Subjective Tiffanie was seen and examined this morning. Overall feeling much better, denies SOB, F/C. Decent UO, net - >1 L. Appetite decent. Renal function improving slowly. BP well controlled. Review of Systems Review of Systems: All systems reviewed & are unremarkable except as noted in HPI & below Physical Exam Constitutional: WD/WN, vitals as above + ill appearing; no acute distress Neck: trachea midline Respiratory: normal respiratory effort, lungs clear to auscultation no cough Auscultation: no crackles, no rales and no wheezes Cardiovascular: RRR, no murmur, no edema Musculoskeletal: Extremities: extremities normal to inspection Gait: normal gait Skin: no rashes, warm and dry Neurologic: moves all extremities and awake Psychiatric: A+Ox3, euthymic affect Results & Data Vital Signs (Past 12 Hours) Vital Signs Temp Pulse Pulse Resp BP Pulse Ox 12/29/18 09:10 82 133/69 12/29/18 08:42 36.6 C 61 18 106/56 L 94 12/28/18 23:43 36.8 C 71 18 126/70 95 PG Care Time/CCT Total # of Minutes Spent Total Time Spent with Patient: Total time spent is greater than 50% in coordination of care (as documented) at patient's floor/unit and/or counseling patient:
[2018-12-29] MEDS ORDERED: EPOETIN ALFA 20,000 UNITS/ML VIAL IV ONE (09:50)
[2018-12-29] MEDS ORDERED: EPOETIN ALFA 20,000 UNITS/ML VIAL SQ ONE (10:30)
[2018-12-29] MEDS ORDERED: cefTRIAXone SODIUM 1,000 MG in DEXTROSE 5% 50 ML IV STA (10:50)
[2018-12-29] MEDS ORDERED: IRON SUCROSE 200 MG in 0.9 % SODIUM CHLORIDE 100 ML IV SCH (11:00)
[2018-12-29] MEDS: cefTRIAXone SODIUM 1,000 MG in DEXTROSE 5% 50 ML IV SCH (11:29)
[2018-12-29] MEDS ORDERED: INFLUENZA ADMINISTRATION CHARGE ONE (12:00)
[2018-12-29] MEDS ORDERED: INFLUENZA VIRUS QUAD VACCINE 0.5 ML SYR IM ONE (12:00)
--- NOTE | 2018-12-29 16:00 | Discharge Summary ---
Date of Service December 29, 2018 Principal Diagnosis Urinary tract infection with bacteremia, acute on chronic diastolic CHF Discharge Exam General she is awake and alert pleasant no distress. HEENT normocephalic atraumatic mucous membranes moist. Lungs are clear to auscultation diminished at the bases but seem a little bit more clear than yesterday, no rales rhonchi or wheezes with good effort, no accessory muscle use. Neuro shows no focal deficits. Skin shows no rashes no pallor or icterus. Discharge Data Allergies Allergy/AdvReac Type Severity Reaction Status Date / Time shellfish derived Allergy Severe ANAPHYLAXIS Verified 12/23/18 13:49 iodine Allergy Intermediate ANAPHYLAXIS Verified 12/23/18 13:49 lisinopril Allergy Verified 12/23/18 13:49 oxybutynin [From Ditropan] Allergy Verified 12/23/18 13:49 sertraline [From Zoloft] Allergy Verified 12/23/18 13:49 paroxetine AdvReac Unknown GI UPSET Verified 12/23/18 13:49 Consultations 12/23/18 13:56 ED Decision to Admit Stat 12/27/18 18:39 Consult Nephrology Routine Ordered Studies 12/23/18 12:47 CT abd pelvis wo con Stat Hospital Course (1) Complicated UTI (urinary tract infection): UTI plus bacteremiapresent on admissionshe has finished 7 days of IV Rocephin, this should be adequate IV coverage, but given that she is still was having a degree of sweats, we will then transition her to an oral third- generation cephalosporin to finish out the second week of suppressive therapywith her renal function Ceftin near 300 mg daily, 7 days, start tomorrow. (2) Acute kidney injury superimposed on chronic kidney disease: Baseline creatinine is 1.5 - 1.8. On admission, creatinine was 2.0. -Wnedi high enough that prior hospitalist involve nephrology, actually with resumption of diuretics when she went into acute diastolic CHF, her creatinine started to improve, suggesting that the azotemia was from poor forward flow. I recommended a follow-up basic metabolic panel in the next few days, her PA from the CHF clinic is aware of her situation. Close outpatient follow-up. (3) Anemia: Baseline hgb ~9-10. Was 10 on admission, but dropped to 7.8 on 12/24 & 7.0 on 12/25. - Likely dilutional and poor bone marrow response as she has no signs of bleeding -Given IV iron by nephrology prior to discharge, close outpatient follow-up in this regard. (4) Thrombocytopenia: Normal platelets in the past with usual in 200-300 range. - Down to 163 on 12/23 & 98 on 12/25 - Possible suppressed from bacteremia and illness. No sign of bleeding as above -Stable for outpatient follow-up (5) Chronic diastolic congestive heart failure: Apparently per CHF clinic she is somewhat brittle with this, and throughout the course of today she did appear to get somewhat volume overloaded/pulmonary edema. Lasix had been held due to elevated creatinine, and she showed a mild degree of acute on chronic diastolic CHF. When Lasix resumed, her creatinine improved rather significantly. Educated extensively on sodium, discharged home on 40 mg twice daily, basic metabolic panel in the next few days, continue daily weights and CHF clinic follow-up as she had been doing before. (6) Sepsis: Due to bacteremia and UTI. - Resolved -Antibiotics as above (7) Essential hypertension: Blood pressures acceptable, other than the reduction in Lasix, home meds unchanged (8) Diabetes 1.5, managed as type 2: A1c 7, sugars reasonable, outpatient follow-up (9) Non-STEMI (non-ST elevated myocardial infarction): No active anginal symptoms. Continue home meds (10) Atrial fibrillation, rapid: Rate controlled, anticoagulated (11) Hyperlipidemia: - Continue Lipitor (12) GERD (gastroesophageal reflux disease): - Continue Protonix (13) DVT prophylaxis: On apixaban for her afib Total Time Total Time Spent Total Time Spent (In Minutes): Greater than 30 Discharge Plan Discharge Items Patient Disposition: Home - Self-Care Reason For Visit: COMPLICATED UTI Discharge Diagnosis: urinary tract infection with secondary bloodstream infection (see below) Activity: Resume your previous activity Non-emergency contact: Primary Care Provider and Plate Put In Worker Call non-emergency contact if: you have any medication questions, your symptoms worsen and you have a fever Follow-up/Referrals: Phillip Montana MD [Primary Care Provider] - 01/03/19 1:30 pm (Please, follow up at Dr. Montana's office with his physician's assistant, Daysi Shea PA-C, on ThursdayJanuary 03 at 1:30 pm. *If you need to change this appointment, call the office at [phone].) Diet: Regular Addtl Attending Provider Instructions: urinary tract infection with secondary bloodstream infection -this is getting better - by the end of today we'll have done 7 days of IV antibiotics - because you still had some sweats the night before last, we'll treat for another 7 days with oral antibiotics Visit Report Forms: Smoking Cessation Stand-Alone Forms: My [facility], Opioid Pain Management, Work/School Release (Inpt) Medications and DC Order Prescriptions: New cefdinir 300 mg capsule 300 mg PO DAILY 7 Days Qty: 7 RF: 0 Continued atorvastatin 80 mg tablet 80 mg PO HS 90 Days Qty: 90 RF: 2 metoprolol succinate 50 mg tablet extended release 24 hr 100 mg PO BID Qty: 360 RF: 3 levothyroxine 50 mcg tablet 50 mcg PO QAM 30 Days Qty: 30 RF: 2 diltiazem HCl 180 mg tablet extended release 24 hr 180 mg PO QAM Qty: 90 RF: 0 Lantus Solostar U-100 Insulin 100 unit/mL (3 mL) insulin pen 25 units subcut HS Qty: 15 RF: 3 Novolog Flexpen U-100 Insulin 100 unit/mL (3 mL) insulin pen 3 units subcut TIDM Qty: 15 RF: 3 albuterol sulfate 90 mcg/actuation HFA aerosol inhaler 2 puffs inhalation Q4H PRN (Reason: shortness of breath) Qty: 2 RF: 0 Eliquis 2.5 mg tablet 2.5 mg PO BID Qty: 60 RF: 2 nystatin 100,000 unit/gram ointment 1 appln topical BID PRN (Reason: Yeast) Qty: 2 RF: 0 potassium chloride 20 mEq tablet extended release 20 meq PO BID RF: 0 gabapentin 400 mg capsule 400 mg PO TID Qty: 270 RF: 0 allopurinol 100 mg tablet 100 mg PO QAM RF: 0 Nucynta 50 mg tablet 50 mg PO BID PRN (Reason: pain) Qty: 60 RF: 0 isosorbide mononitrate 30 mg tablet extended release 24 hr 30 mg PO QAM RF: 0 acetaminophen [Tylenol Arthritis Pain] 650 mg Tablet Extended Release 2 tabs PO UD PRN (Reason: Pain) RF: 0 pantoprazole 40 mg tablet,delayed release (DR/EC) 40 mg PO QAM RF: 0 fluticasone propionate 50 mcg/actuation spray,suspension 1 spray intranasal BID RF: 0 cholecalciferol (vitamin D3) [Vitamin D3] 1,000 unit Tablet 1,000 unit PO QAM RF: 0 PreserVision AREDS-2 [id number]-mg Capsule 1 tab PO BID RF: 0 cyanocobalamin (vitamin B-12) [Vitamin B-12] 1,000 mcg Tablet 1,000 mcg PO QAM RF: 0 diclofenac sodium [Voltaren] 1 % gel 2 g TOPICAL HS PRN (Reason: Pain) RF: 0 magnesium oxide 400 mg magnesium capsule 400 mg PO QAM RF: 0 digoxin 125 mcg tablet 125 mcg PO Q2D RF: 0 clopidogrel [Plavix] 75 mg tablet 75 mg PO QAM RF: 0 Changed furosemide 40 mg tablet 40 mg PO BID Qty: 0 RF: 0 Discharge Orders: Discharge Order (Routine); Ordered 12/29/18 Ordered By: Julián Verduzco/Other Patient Handouts: UTI Admission Data Admit Date/Time: 12/23/18 15:29 Attending Provider: Julián Healy Admit Provider: Armond Mojica Primary Care Provider: Phillip Montana Other Providers: Luis Estevez ; Armond Mojica ; Ashwini Galaviz Other Interventions: Discharge Summary Assessment (RN) Last Done: 12/29/18 12:24 DC Date/Time DO NOT enter until pt leaves facility: 12/29/18 13:55
== END 2018-12-29 13:55 | disposition home health service (06) | DRG 871 ==
LOC: ED 12:30 → SUATTDRO 15:29 → 2E 15:29 → 3E 12-25 15:45

== ENCOUNTER 2020-05-03 11:10 | Observation (INO) ==
--- NOTE | 2020-05-03 11:59 | Emergency Department Note ---
History of Present Illness General Chief complaint: Cardiac Assessment Stated complaint: EDEMA/CHF Time Seen by Provider: 05/03/20 11:36 Source: patient, family (son), RN notes reviewed and old records reviewed History of Present Illness Provider complaint: swollen legs Onset (ago): day(s) 3 Location: lower extremity, left and right Severity: moderate Pain Consistency: + intermittent Maximum Pain Intensity: 4 Current Pain Intensity: 4 Quality: + aching Relieved By: + medication (Gabapentin and MS contin) Exacerbated By: + movement Associated symptoms: no chest pain, no nausea/vomiting and no shortness of breath Treatments prior to arrival: other (Increased lasix to 120 mg TID) This is an 85-year-old female who is on both Lasix as well as Eliquis that presents to the emergency department complaining of bilateral leg swelling. The patient reports she called her PCP earlier in the week. She was advised to increase Lasix to 120 mg twice a day. She the patient reports she has done this for at least 2 days and despite this her legs have continued to swell. She is complaining of pain to the legs made worse with movement. The patient is taking MS Contin as well as gabapentin for the pain which causes the pain to feel better. She denies any fevers or chills. Home Medications Medication Instructions Recorded Confirmed Type PreserVision AREDS-2 0 tab PO BID 12/14/17 05/03/20 History lidocaine 4 % topical gel 1 appln TOP TID PRN #30 gm 01/14/19 05/03/20 Rx magnesium oxide 400 mg PO BID tab 01/14/19 05/03/20 History albuterol sulfate 90 mcg/actuation 1 - 2 puffs INH Q4H PRN #6.7 gm 04/26/19 05/03/20 Rx aerosol inhaler metoprolol succinate 50 mg 100 mg PO BID #360 tab 11/04/19 05/03/20 Rx tablet,extended release 24 hr cholecalciferol (vitamin D3) 25 0 unit PO QAM tab 12/30/19 05/03/20 History mcg (1,000 unit) tablet levothyroxine 50 mcg tablet 50 mcg PO QAM 30 Days #30 tab 01/03/20 05/03/20 Rx digoxin 125 mcg (0.125 mg) tablet 125 mcg PO QAM #90 tab 01/09/20 05/03/20 Rx fluticasone propionate 50 1 spray INTRANASAL BID PRN #16 g 01/11/20 05/03/20 Rx mcg/actuation nasal spray,suspension gabapentin 300 mg capsule 300 mg PO HS PRN #90 cap 01/24/20 05/03/20 Rx clopidogrel 75 mg tablet 75 mg PO DAILY #90 tab 01/25/20 05/03/20 Rx pantoprazole 40 mg tablet,delayed 40 mg PO QAM #90 tab 02/01/20 05/03/20 Rx release insulin aspart U-100 100 unit/mL 8 - 9 unit SUBCUT TIDM ml 02/03/20 05/03/20 History (3 mL) subcutaneous pen allopurinol 100 mg tablet 300 mg PO QAM #270 tab 02/15/20 05/03/20 Rx insulin glargine 100 unit/mL (3 42 unit SUBCUT HS #15 ml 02/16/20 05/03/20 Rx mL) subcutaneous pen diclofenac sodium 1 % topical gel 2 g TOPICAL HS PRN #100 gm 02/23/20 05/03/20 Rx semaglutide 1 mg/dose (2 mg/1.5 0.25 mg SUBCUT .weekly #1.5 ml 02/28/20 05/03/20 Rx mL) subcutaneous pen injector tapentadol 50 mg tablet 50 mg PO BID PRN #60 tab 03/05/20 05/03/20 Rx gabapentin 800 mg tablet 800 mg PO TID 90 Days #270 tab 03/21/20 05/03/20 Rx duloxetine 60 mg capsule,delayed 60 mg PO QAM #90 cap 03/27/20 05/03/20 Rx release apixaban 2.5 mg tablet See Rx Instructions .ROUTE 04/09/20 05/03/20 Rx .COMPLEX #60 tab isosorbide mononitrate 30 mg 30 mg PO QAM #90 tab 04/30/20 05/03/20 Rx tablet,extended release 24 hr furosemide 40 mg tablet 120 mg PO DAILY #270 tab 05/01/20 05/03/20 Rx potassium chloride 20 mEq 20 meq PO BID tab 05/01/20 05/03/20 History tablet,extended release atorvastatin 0 mg PO QPM 05/03/20 05/03/20 History morphine 15 mg PO BID PRN 01/28/21 01/28/21 History Allergies Allergy/AdvReac Type Severity Reaction Status Date / Time shellfish derived Allergy Severe ANAPHYLAXIS Verified 05/03/20 13:19 iodine Allergy Intermediate ANAPHYLAXIS Verified 05/03/20 13:19 lisinopril Allergy Unknown Verified 05/03/20 13:19 oxybutynin [From Ditropan] Allergy Unknown Verified 05/03/20 13:19 sertraline [From Zoloft] Allergy Unknown Verified 05/03/20 13:19 paroxetine AdvReac Unknown GI UPSET Verified 05/03/20 13:19 Past Med/Surg History Medical History (Updated 05/04/20 @ 07:37 by Miquel Trujillo MD) Anemia Chronic macrocytic Asthma Atrial fibrillation CAD (coronary artery disease) Cerebrovascular disease Chronic diastolic congestive heart failure Chronic kidney disease (CKD) Stage III, baseline Cr 1.3-1.5mg/dL. Complicated with normocytic anemia and secondary hyperparathyroidism. Followed by nephrology. COPD (chronic obstructive pulmonary disease) Diabetes mellitus, type II Controlled, managed without medication. HbA1c 7.3% (02/21). Diabetic peripheral neuropathy Generalized osteoarthritis CT scan lumbar spine (03/16) severe multilevel spinal stenosis. Cannot perform MRI due to bladder implant. Followed by pain management. Epidural steroid injections with improvement of pain. Evaluated by ortho, decided against surgery. Managed with gabapentin 300mg TID + APAP PRN + tapentadol 50mg BID PRN GERD (gastroesophageal reflux disease) History of gout Managed with allopruinol daily. No recent gouty attacks. Uric acid suppressed 3.4 mg/dl (12/22) History of non-ST elevation myocardial infarction (NSTEMI) x2, 2017 and 2018 Hyperlipidemia Secondary prevention with moderate intensity statin (atorvastatin 20mg daily) Hypertension Managed with furosemide + metoprolol Hypothyroidism Managed with levothyroxine supplementation Lichen planus Macular degeneration Macular degeneration Mitral regurgitation Neurologic gait dysfunction Obstructive sleep apnea Long standing. Managed with CPAP nightly. CPAP titration polysomnography (07/14). Secondary hyperparathyroidism 2/2 CKD stage III. Managed with calcitriol. Followed by nephrology Sensorineural hearing loss (SNHL) of both ears Spinal stenosis Venous insufficiency of both lower extremities Venous stasis ulcers of both lower extremities Vitamin D deficiency Surgical History H/O colonoscopy History of repair of rectocele S/P breast biopsy S/P section S/P cholecystectomy S/P hysterectomy S/P implantation of urinary electronic stimulator device Family History Father , Age 64 No problems noted. Mother , Age 61 No problems noted. Other Coronary heart disease Denies family history of Ovarian cancer Prostate cancer Crohn's disease Breast cancer Lung cancer Colorectal cancer Social History Smoking Status: Never smoker Second Hand Exposure: No; Hx Alcohol Use: No Hx Substance Use: No Preferred Language: Scottish Communication Ability: Effective Visual Impairment: No Limitations Hearing Ability: Normal Cutting Table Operator Required: No Beliefs That Will Affect Care: Caodaism marital status: Life Partner Current Living Situation: Spouse current occupational status: retired Other Information That Helps Us Care for You: No Feels Safe at Home: Yes Safety Concerns: Feels Safe At This Time Childhood Exposure to Second-Hand Smoke: No Dental Care, Regularly: Yes Physical Activity Frequency: 1-2 Times per Week Physical Activity Frequency Comment: physical therapy Seatbelt Use: always Sunscreen Use: Yes Assistive Devices: Glasses Review of Systems A total of 10 systems reviewed and were otherwise negative Physical Exam Vital Signs Vital Signs - 24 hr 05/03/20 11:18 05/03/20 12:26 05/03/20 12:31 Temperature 36.8 C Temperature Source Oral Pulse Rate 77 72 70 Pulse Rate [Apical] Pulse Rate from SpO2 Sensor 71 72 Pulse Rhythm Regular Pulse Strength Normal Respiratory Rate 20 19 15 Respiratory Effort / Characteristics Non-Labored Spontaneous Respiratory Depth Normal Respiratory Pattern Regular Blood Pressure 130/60 140/51 L 123/44 L Blood Pressure [Right Arm] Blood Pressure Mean 83 80 70 Blood Pressure Mean [Right Arm] Blood Pressure Position Sitting Pulse Oximetry 93 92 Oxygen Delivery Method Room Air Sepsis Recent Fever Within 48 Hours No Sepsis New/Unexplained Change in Mental Status No Sepsis Action Taken by Nursing No Action Required 05/03/20 13:10 Temperature Temperature Source Pulse Rate Pulse Rate [Apical] 64 Pulse Rate from SpO2 Sensor Pulse Rhythm Pulse Strength Respiratory Rate 17 Respiratory Effort / Characteristics Respiratory Depth Respiratory Pattern Blood Pressure Blood Pressure [Right Arm] 124/58 L Blood Pressure Mean Blood Pressure Mean [Right Arm] 80 Blood Pressure Position Pulse Oximetry 98 Oxygen Delivery Method Sepsis Recent Fever Within 48 Hours Sepsis New/Unexplained Change in Mental Status Sepsis Action Taken by Nursing VITAL SIGNS - Vital signs and nursing notes were reviewed. GENERAL - 85-year-old female appearing stated age who is in no acute distress. Communicates well with provider and answers questions appropriately. SKIN - Without rashes. HEAD - NC/AT. EYES - PERRL with EOMI bilaterally. Sclera anicteric. Palpebral conjunctiva pink and moist with no injection noted. EARS - No deformities of external structures noted on gross examination bilaterally. NOSE - Midline and without cyanosis. No epistaxis or purulent drainage noted. Septum midline without deviation or septal hematoma noted. MOUTH/OROPHARYNX - Without perioral cyanosis. Buccal mucosa pink and moist and without leukoplakia. Tongue midline with equal elevation of palate bilaterally. No tonsillar hypertrophy, erythema, or exudates noted. dentition noted. NECK - Neck with FROM. Supple to palpation. lymphadenopathy noted. No nuchal rigidity. LUNGS - Chest wall symmetric without accessory muscle use, intercostals retractions, or central cyanosis. Normal vesicular breath sounds CTA B/L. No wheezes, rales, or rhonchi appreciated. CARDIAC - RRR with S1/S2. No murmur, rubs, or gallops appreciated. ABDOMEN - Abdominal contour without pulsations or visible masses. BS normoactive all four quadrants. No tenderness, palpable masses, hepatospleno megaly, or ascites noted. EXTREMITIES - +2 pitting edema NEUROLOGIC - Cranial nerves II through XII grossly intact. Sensory intact to light touch throughout. Patellar reflexes +2/4. PSYCH - A&Ox3 and cooperates fully with examiner. Pt is very pleasant and interacts well with examiner. Course Administered Medications Apixaban (Apixaban 2.5 Mg Tab) 2.5 mg PO BID RODDY Stop: 06/02/20 20:59 Last Admin: 05/03/20 20:26 Dose: 2.5 mg Documented by: [id number] Atorvastatin Calcium (Atorvastatin 20 Mg Tab) 20 mg PO QPM RODDY Stop: 06/02/20 20:59 Last Admin: 05/03/20 20:27 Dose: 20 mg Documented by: [id number] Diclofenac Sodium (Diclofenac Sod 1% Gel 100 Gm Tube) 4 gm EXT QID RODDY Stop: 06/02/20 21:19 Last Admin: 05/03/20 21:47 Dose: 4 gm Documented by: [id number] Gabapentin (Gabapentin 800 Mg Tab) 800 mg PO TID RODDY Stop: 06/02/20 20:59 Last Admin: 05/03/20 20:27 Dose: 800 mg Documented by: [id number] Insulin Aspart (Insulin Aspart 100 Units/Ml 3 Ml Pen) 0 units SC ACHS RODDY Stop: 06/02/20 16:29 Last Admin: 05/03/20 20:25 Dose: Not Given Documented by: [id number] Admin: 05/03/20 16:38 Dose: 7 units Documented by: [id number] Cosigned by: [id number] Insulin Glargine (Insulin Glargine Solostar 100 Units/Ml 3 Ml Pen) 42 units SQ HS RODDY Stop: 06/02/20 20:59 Last Admin: 05/03/20 20:29 Dose: 42 units Documented by: [id number] Cosigned by: [id number] Levothyroxine Sodium (Levothyroxine Sodium 50 Mcg Tablet) 50 mcg PO DAILYBB RODDY Stop: 06/03/20 06:29 Last Admin: 05/04/20 06:00 Dose: 50 mcg Documented by: [id number] Magnesium Oxide (Magnesium Oxide 400 Mg Tab) 400 mg PO BID RODDY Stop: 06/02/20 20:59 Last Admin: 05/03/20 20:27 Dose: 400 mg Documented by: [id number] Metoprolol Succinate (Metoprolol Succ 50mg Ext Rel Tab) 100 mg PO BID RODDY Stop: 06/02/20 20:59 Last Admin: 05/03/20 20:27 Dose: 100 mg Documented by: [id number] Potassium Chloride (Potassium Chloride Crtab 20 Meq Tabcr) 20 meq PO BID RODDY Stop: 06/02/20 20:59 Last Admin: 05/03/20 20:28 Dose: 20 meq Documented by: [id number] Discontinued Medications Furosemide (Furosemide 40 Mg/4 Ml Vial) 40 mg IV NOW STA Stop: 05/03/20 15:54 Last Admin: 05/03/20 16:54 Dose: 40 mg Documented by: [id number] Acetaminophen (Ofirmev) 1,000 mg in 100 mls @ 400 mls/hr IV NOW STA Stop: 05/03/20 12:14 Last Infusion: 05/03/20 12:32 Dose: 0 mls/hr Documented by: [id number] Admin: 05/03/20 12:17 Dose: 400 mls/hr Documented by: [id number] Medical Decision Making Differential Diagnosis Reactive airway disease, pneumonia, pneumothorax, COPD, CHF, infections, cardiac ischemia, pulmonary embolism, musculoskeletal, gastrointestinal, as well as other pathologies. Medical Records Attestation: I reviewed the patient's medical records. Home Medications Current Medication List: was personally reviewed by me Laboratory Data Attestation: I reviewed the patient's lab results. Result diagrams: 05/04/20 05:54 05/04/20 05:54 Lab Results 05/03/20 05/03/20 05/03/20 Range/Units 11:45 11:45 11:45 WBC 6.56 (4.8-10.8) K/uL RBC 3.00 L (4.2-5.4) M/uL Hgb 9.8 L (12.0-16.0) g/dL Hct 32.1 L (37-47) % MCV 107.0 H (80-100) fL MCH 32.7 (25-34) pg MCHC 30.5 L (32-36) g/dL RDW Std Deviation 67.7 H (36.4-46.3) fL RDW Coeff of Talia 17.6 H (11.5-14.5) % Plt Count 223 (130-400) K/uL MPV 11.0 H (7.4-10.4) fL Immature Gran % (Auto) 0.3 % Neut % (Auto) 73.5 % Lymph % (Auto) 11.7 % [place] % (Auto) 5.9 % Eos % (Auto) 8.4 % Baso % (Auto) 0.2 % Neut # (Auto) 4.82 (1.4-6.5) K/uL Lymph # (Auto) 0.77 L (1.2-3.4) K/uL [place] # (Auto) 0.39 (0.11-0.59) K/uL Eos # (Auto) 0.55 H (0-0.5) K/uL Baso # (Auto) 0.01 (0-0.2) K/uL Immature Gran # (Auto) 0.02 (0.00-0.02) K/uL PT 11.4 (9.0-12.0) Seconds INR 1.1 (0.9-1.1) APTT 29.1 (21.0-31.0) Seconds PTT Ratio 1.0 Sodium 138 (136-145) mmol/L Potassium 4.0 (3.5-5.1) mmol/L Chloride 97 L (98-107) mmol/L Carbon Dioxide 34 H (21-32) mmol/L Anion Gap 7.0 (3-11) BUN 28 H (7-18) mg/dl Creatinine 1.93 H (0.6-1.2) mg/dl Est Cr Clr Drug Dosing 20.5 ml/min Est GFR ( Amer) 27.2 Est GFR (Non-Af Amer) 23.5 BUN/Creatinine Ratio 14.5 (10-20) Glucose 68 L (70-99) mg/dl Calcium 8.9 (8.5-10.1) mg/dl Total Bilirubin 1.0 (0.2-1) mg/dl AST 21 (15-37) U/L ALT 22 (12-78) U/L Alkaline Phosphatase 86 (45-117) U/L Total Creatine Kinase 165 (26-192) U/L CK-MB (CK-2) 8.3 H (0.5-3.6) ng/ml CK/CKMB % Calc 5.0 H (0-3.0) Troponin I 0.063 H* (0-0.045) ng/ml NT-Pro-B Natriuret Pep 6361 H (0-1800) pg/ml Total Protein 7.2 (6.4-8.2) gm/dl Albumin 3.5 (3.4-5.0) gm/dl Globulin 3.7 (2.5-4.0) gm/dl Albumin/Globulin Ratio 1.0 (0.9-2) Lipase 33 L (73-393) U/L Digoxin (0.8-2.0) ng/ml COVID-19 Eval Order SARS-CoV-2 (PCR) (Negative) Influenza Type A (PCR) (Neg) Influenza Type B (PCR) (Neg) RSV (RT-PCR) (Neg) 05/03/20 05/03/20 05/03/20 Range/Units 11:45 12:00 12:00 WBC (4.8-10.8) K/uL RBC (4.2-5.4) M/uL Hgb (12.0-16.0) g/dL Hct (37-47) % MCV (80-100) fL MCH (25-34) pg MCHC (32-36) g/dL RDW Std Deviation (36.4-46.3) fL RDW Coeff of Talia (11.5-14.5) % Plt Count (130-400) K/uL MPV (7.4-10.4) fL Immature Gran % (Auto) % Neut % (Auto) % Lymph % (Auto) % [place] % (Auto) % Eos % (Auto) % Baso % (Auto) % Neut # (Auto) (1.4-6.5) K/uL Lymph # (Auto) (1.2-3.4) K/uL [place] # (Auto) (0.11-0.59) K/uL Eos # (Auto) (0-0.5) K/uL Baso # (Auto) (0-0.2) K/uL Immature Gran # (Auto) (0.00-0.02) K/uL PT (9.0-12.0) Seconds INR (0.9-1.1) APTT (21.0-31.0) Seconds PTT Ratio Sodium (136-145) mmol/L Potassium (3.5-5.1) mmol/L Chloride (98-107) mmol/L Carbon Dioxide (21-32) mmol/L Anion Gap (3-11) BUN (7-18) mg/dl Creatinine (0.6-1.2) mg/dl Est Cr Clr Drug Dosing ml/min Est GFR ( Amer) Est GFR (Non-Af Amer) BUN/Creatinine Ratio (10-20) Glucose (70-99) mg/dl Calcium (8.5-10.1) mg/dl Total Bilirubin (0.2-1) mg/dl AST (15-37) U/L ALT (12-78) U/L Alkaline Phosphatase (45-117) U/L Total Creatine Kinase (26-192) U/L CK-MB (CK-2) (0.5-3.6) ng/ml CK/CKMB % Calc (0-3.0) Troponin I (0-0.045) ng/ml NT-Pro-B Natriuret Pep (0-1800) pg/ml Total Protein (6.4-8.2) gm/dl Albumin (3.4-5.0) gm/dl Globulin (2.5-4.0) gm/dl Albumin/Globulin Ratio (0.9-2) Lipase (73-393) U/L Digoxin 0.6 L (0.8-2.0) ng/ml COVID-19 Eval Order [facility]Rsv at [facility] SARS-CoV-2 (PCR) NEGATIVE (Negative) Influenza Type A (PCR) Negative (Neg) Influenza Type B (PCR) Negative (Neg) RSV (RT-PCR) Negative (Neg) ECG Data Attestation: I personally reviewed and interpreted this ECG as follows: Indication: + SOB/dyspnea Rate (beats per minute): 78 Rhythm: + atrial fibrillation ECG Intervals/blocks: + Normal QT-c (414) ECG [place]: + Normal ECG ST segments: no ST depression and no ST elevation Comparison ECG Date: from (09/26/2019) Change: no significant change MDM Narrative Patient was seen and evaluated as above in room B6. Review was performed of nursing notes and vital signs. I did review pertinent previous visits and patient history. After obtaining a thorough history and physical examination the above work up was performed. This is an 85-year-old female who presents emergency department complaining of bilateral leg swelling. The patient has increased her Lasix to 120 mg twice a day. Her troponin is elevated. Based on this I did discuss the case with the hospitalist service who did agree to meet the patient. Patient family in agreement with the treatment plan. An order was placed for continuous cardiac monitoring. The monitor shows a rate of 75 with A fib rhythm. The patient was evaluated during a period of high volume and high acuity while the hospital was at overcapacity during the global COVID-19 pandemic, and that diagnosis was suspected/considered upon their initial presentation. Their evaluation, treatment and testing was consistent with current guidelines for patients who present with complaints or symptoms that may be related to COVID- 19. Impression & Plan Weakness, Atrial fibrillation, Elevated troponin Discharge Plan Visit Data Chief Complaint: Cardiac Assessment Stated Complaint: EDEMA/CHF ED Provider: Miquel Trujillo Discharge Problem: Weakness, Atrial fibrillation, Elevated troponin Patient Disposition: Admitted As Inpatient Discharge Instructions Interventions: ED Discharge Assessment Last Done: 05/03/20 16:05 Discharge Problem: Atrial fibrillation Qualifiers: Atrial fibrillation type: unspecified Qualified Code(s): I48.91 - Unspecified atrial fibrillation
[2020-05-03] MEDS ORDERED: ACETAMINOPHEN 1,000 MG/100 ML VIAL IV STA (12:00)
[2020-05-03] MEDS ORDERED: HYDROmorphone INJ 0.5 MG/0.5 ML SYR IV PRN (12:00)
[2020-05-03 12:04] LABS: Basophils # (auto) 0.01 K/uL (0-0.2); Basophils % (auto) 0.2 %; Eosinophils # (auto) 0.55 K/uL (0-0.5); Eosinophils % (auto) 8.4 %; Hematocrit (blood only) 32.1 % (37-47); Hemoglobin 9.8 g/dL (12.0-16.0); Immature Granulocytes # (auto) 0.02 K/uL (0.00-0.02); Immature Granulocytes % (auto) 0.3 %; Lymphocytes # (auto) 0.77 K/uL (1.2-3.4); Lymphocytes % (auto) 11.7 %; Mean Corpuscular Hemoglobin 32.7 pg (25-34); Mean Corpuscular Hgb Conc 30.5 g/dL (32-36); Monocytes # (auto) 0.39 K/uL (0.11-0.59); Monocytes % (auto) 5.9 %; Neutrophils # (auto) 4.82 K/uL (1.4-6.5); Neutrophils % (auto) 73.5 %; Platelet Count 223 K/uL (130-400); RDW Coefficient of Variation 17.6 % (11.5-14.5); RDW Standard Deviation 67.7 fL (36.4-46.3); White Blood Count 6.56 K/uL (4.8-10.8)
[2020-05-03 12:19] LABS: INR 1.1 (0.9-1.1); Partial Thromboplastin Time 29.1 Seconds (21.0-31.0); Prothrombin Time 11.4 Seconds (9.0-12.0)
[2020-05-03 12:23] LABS: Albumin Level 3.5 gm/dl (3.4-5.0); BUN Creatinine Ratio 14.5 (10-20); Calcium 8.9 mg/dl (8.5-10.1); Creatinine Clr Calc Pharmacy 20.5 ml/min; Est GFR (African American) 27.2; Est GFR (Non-African American) 23.5
[2020-05-03 12:37] LABS: Creatine Kinase MB 8.3 ng/ml (0.5-3.6); Globulin 3.7 gm/dl (2.5-4.0); Total Protein 7.2 gm/dl (6.4-8.2); Troponin I 0.063 ng/ml (0-0.045)
[2020-05-03 12:51] LABS: Influenza A virus by PCR Negative (Neg); Influenza B virus by PCR Negative (Neg); RSV by PCR Negative (Neg); SARS CoV2 RNA(COVID-19) InHosp NEGATIVE (Negative)
--- NOTE | 2020-05-03 12:55 | XRay Report ---
XR chest 1V portable CLINICAL HISTORY: Atypical chest pain. COMPARISON STUDY: Chest radiograph April 30, 2020. FINDINGS: Lung volumes are normal. Mild elevation of the left hemidiaphragm is unchanged. There is no pneumothorax or pleural effusion. There is no consolidation or evidence for pulmonary edema. Cardiom egaly is again noted. The appearance of the chest is unchanged. IMPRESSION: No acute cardiopulmonary findings. No change in appearance of the chest. ACT 112: Negative or not required by law. Electronically signed by: Jeremy Gabriel M.D. 05/03/2020 12:54 PM
--- NOTE | 2020-05-03 13:35 | History & Physical Report ---
Date of Service May 03, 2020 Assessment & Plan (1) Chronic diastolic congestive heart failure: - Admit to tele for Acute on chronic CHF exacerbation on admission - Was recently seen in the CHF clinic and was hypervolemic at that time (04/30) and had increased lasix to 120 mg in am x past 3 days, baseline weight of 160- 165, unsure of current weight. PO lasix not effective in the outpatient setting so will be admitted for aggressive diuresis and lab monitoring. - Continue IV lasix BID - strict I/Os, daily weights, fluid restriction of 1500mL daily - BNP elevated 6361 - Heart failure clinic consultation- follows with Idalmis Rothman as outpatient already, Dr. Roland last saw her earlier this month. - Recently had echo conducted as outpatient- 04/14/19 showing EF of 65-70%, mild concentric LVH, mild mitral regurg, mild tricuspid regurg, no WMA. - no need to repeat - Continue potassium supplementation with aggressive diuresis - SCDs - Possibly right heart strain with fluid retention? - LFTs within normal range, will add on ammonia with asterixis like motion, as well as increased confusion/hallucinations - possible that liver is unable to clear toxins in the setting of hypervolemia. If ammonia is negative will check a CT of the head to r/o bleed with frequent falls and being on anticoagulation. - COVID negative. (2) CAD (coronary artery disease): - s/p PCI of the proximal LAD on 12/06/[address] Miller. She denies angina. LV systolic function is normal. In Mar 2018 was admitted in [facility] with A. fib with RVR, elevated troponin and findings consistent with Takotsubo's cardiomyopathy, at that point time her had recently . In December 2018 () was admitted for A. fib with RVR and NSTEMI where she underwent cardiac cath and had URBANO placed in the LAD. Again readmitted in December () with UTI and bacteremia. - Continue Plavix, Eliquis, atorvastatin, metoprolol, and Imdur. - troponin slightly elevated, likely secondary hypervolemia, possibly kidney involvement, will monitor BMP and will trend trop. (3) Hypertension: - BP well controlled. Continue current therapy. (4) Atrial fibrillation: - Rate controlled with digoxin and metoprolol, and she is asymptomatic. EKG reviewed as above - Patient self discontinued her Diltiazem in February. Continue to monitor her rate and can restart if needed. - Eliquis 2.5 mg BID with weight and Cr. clearance - Fall precautions - note frequent falls and monitor with being on anticoagulation - Checking ammonia, if normal then will get CT brain. Also, low threshold for CT brain if any changes in mentation, strength, etc. (5) Hyperlipidemia: - Statin therapy as above (6) Venous insufficiency of both lower extremities: - Chronic, appears hypervolemia has worsened this (7) COPD (chronic obstructive pulmonary disease): - Hx of such, continue inhalers prn, does not follow formally with pulm from EMR eval (8) Spinal stenosis: - Previously evaluated, followed with Dr. Samson, underwent multiple spinal injections for lumbar spinal stenosis/pain, was recommended that she have surgery however patient was reluctant to proceed with that given her advanced age. Has been managing pain with gabapentin, Cymbalta, morphine, Voltaren gel, Nucynta (9) Hypothyroidism: - Continue levothyroxine 50 mcg daily (10) Secondary hyperparathyroidism: - Noted, chronic (11) Diabetes mellitus, type II: - A1C - ISS with accuchecks achs for coverage - Continue Lantus 42 U HS and 8 U standing with meals - Takes trulicity weekly as outpt on Tuesdays (12) Diabetic peripheral neuropathy: - Continue gabapentin 800 mg TID, 300 mg HS (13) Chronic kidney disease (CKD): - Follow am labs, Cr 1.93/ BUN 28, appears to be slightly elevated compared to baseline however her labs fluctuate. Likely partially due to increased lasix as an outpatient. (14) Depression with anxiety: - Continue cymbalta for mood, gabapentin likely slightly helping with anxiety and as a mood stabilizer (15) GERD (gastroesophageal reflux disease): - Continue pantoprazole DVT ppx: - Eliquis BID, scds CODE: Full Dispo: From home, likely to remain in the hospital x 2 days History of Present Illness Primary Care Provider: Domi Wetzel, DO status post stentingThis is an 85-year-old female with PMHx of CAD status post stenting to LAD, history of NSTEMI, A. fib on Eliquis, chronic diastolic CHF, HTN, HLD, DM type II, peripheral neuropathy, CKD stage III, BETHANY, asthma, COPD, spinal stenosis on chronic narcotics, depression with anxiety, venous insufficiency, hypothyroidism, secondary hyperparathyroidism, who presents with worsening bilateral leg edema, mild confusion and visual hallucinations. 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 She reports increasing her Lasix to 120 mg in the morning for few days, compared to typically taking 40 mg daily. She did not notice an improvement in reduce swelling, and therefore presented to the ER. Her baseline weight is between 160 to 165 pounds, on Thursday was 169 pounds, she is unsure of her current weight today. She admits to having multiple frequent falls within the past 3 days due to increased fatigue and weakness. Patient uses a cane at baseline, but feels that her knees buckle, and that she is having some twitching in her arms and her body that she cannot control. These are not mechanical falls where she is tripping over something, and patient denies having any syncopal-like episodes or any injury, and denies hitting her head on all occasions. She has some mild bruising over her lower legs, but no other open areas or abrasions. She reports having chronic spinal stenosis causing back pain which was treated previously with spinal injections, but she is no longer getting these due to being on anticoagulation with cardiac stent, so instead has been using morphine 30 mg daily and Tylenol, gabapentin, nucynta and other things like warm compresses and voltaren gel. Denies any current shortness of breath, chest pain, pressure, palpitations. Of note, her confusion has seemed worse in the past few days with visual hallucinations, earlier today thought miesha t a little white dog with black feet walked into her room in the ER, peed, and then left. She does not typically have any hallucinations, but experienced this before when she was admitted for UTI/bacteremia. Her UA from the CHF clinic from 04/30 did not appear infected. Her son who is present at bedside agrees and supports the history provided by the patient. She is currently in A. fib but is asymptomatic. Pt lives at home with a doper operator since her 3 years ago. Allergies Allergy/AdvReac Type Severity Reaction Status Date / Time shellfish derived Allergy Severe ANAPHYLAXIS Verified 05/03/20 13:19 iodine Allergy Intermediate ANAPHYLAXIS Verified 05/03/20 13:19 lisinopril Allergy Unknown Verified 05/03/20 13:19 oxybutynin [From Ditropan] Allergy Unknown Verified 05/03/20 13:19 sertraline [From Zoloft] Allergy Unknown Verified 05/03/20 13:19 paroxetine AdvReac Unknown GI UPSET Verified 05/03/20 13:19 Home Medications Medication Instructions Recorded Confirmed Type PreserVision AREDS-2 0 tab PO BID 12/14/17 05/03/20 History lidocaine 4 % topical gel 1 appln TOP TID PRN #30 gm 01/14/19 05/03/20 Rx magnesium oxide 400 mg PO BID tab 01/14/19 05/03/20 History albuterol sulfate 90 mcg/actuation 1 - 2 puffs INH Q4H PRN #6.7 gm 04/26/19 05/03/20 Rx aerosol inhaler metoprolol succinate 50 mg 100 mg PO BID #360 tab 11/04/19 05/03/20 Rx tablet,extended release 24 hr cholecalciferol (vitamin D3) 25 0 unit PO QAM tab 12/30/19 05/03/20 History mcg (1,000 unit) tablet levothyroxine 50 mcg tablet 50 mcg PO QAM 30 Days #30 tab 01/03/20 05/03/20 Rx digoxin 125 mcg (0.125 mg) tablet 125 mcg PO QAM #90 tab 01/09/20 05/03/20 Rx fluticasone propionate 50 1 spray INTRANASAL BID PRN #16 g 01/11/20 05/03/20 Rx mcg/actuation nasal spray,suspension gabapentin 300 mg capsule 300 mg PO HS PRN #90 cap 01/24/20 05/03/20 Rx clopidogrel 75 mg tablet 75 mg PO DAILY #90 tab 01/25/20 05/03/20 Rx pantoprazole 40 mg tablet,delayed 40 mg PO QAM #90 tab 02/01/20 05/03/20 Rx release insulin aspart U-100 100 unit/mL 8 - 9 unit SUBCUT TIDM ml 02/03/20 05/03/20 History (3 mL) subcutaneous pen allopurinol 100 mg tablet 300 mg PO QAM #270 tab 02/15/20 05/03/20 Rx insulin glargine 100 unit/mL (3 42 unit SUBCUT HS #15 ml 02/16/20 05/03/20 Rx mL) subcutaneous pen diclofenac sodium 1 % topical gel 2 g TOPICAL HS PRN #100 gm 02/23/20 05/03/20 Rx semaglutide 1 mg/dose (2 mg/1.5 0.25 mg SUBCUT .weekly #1.5 ml 02/28/20 05/03/20 Rx mL) subcutaneous pen injector tapentadol 50 mg tablet 50 mg PO BID PRN #60 tab 03/05/20 05/03/20 Rx gabapentin 800 mg tablet 800 mg PO TID 90 Days #270 tab 03/21/20 05/03/20 Rx duloxetine 60 mg capsule,delayed 60 mg PO QAM #90 cap 03/27/20 05/03/20 Rx release apixaban 2.5 mg tablet See Rx Instructions .ROUTE 04/09/20 05/03/20 Rx .COMPLEX #60 tab isosorbide mononitrate 30 mg 30 mg PO QAM #90 tab 04/30/20 05/03/20 Rx tablet,extended release 24 hr furosemide 40 mg tablet 120 mg PO DAILY #270 tab 05/01/20 05/03/20 Rx potassium chloride 20 mEq 20 meq PO BID tab 05/01/20 05/03/20 History tablet,extended release atorvastatin 0 mg PO QPM 05/03/20 05/03/20 History morphine 15 mg PO BID PRN 05/03/20 05/03/20 History Past Med/Surg History Medical History Anemia Chronic macrocytic Asthma Atrial fibrillation CAD (coronary artery disease) Cerebrovascular disease Chronic diastolic congestive heart failure Chronic kidney disease (CKD) Stage III, baseline Cr 1.3-1.5mg/dL. Complicated with normocytic anemia and secondary hyperparathyroidism. Followed by nephrology. COPD (chronic obstructive pulmonary disease) Diabetes mellitus, type II Controlled, managed without medication. HbA1c 7.3% (02/21). Diabetic peripheral neuropathy Generalized osteoarthritis CT scan lumbar spine (03/16) severe multilevel spinal stenosis. Cannot perform MRI due to bladder implant. Followed by pain management. Epidural steroid injections with improvement of pain. Evaluated by ortho, decided against surgery. Managed with gabapentin 300mg TID + APAP PRN + tapentadol 50mg BID PRN GERD (gastroesophageal reflux disease) History of gout Managed with allopruinol daily. No recent gouty attacks. Uric acid suppressed 3.4 mg/dl (12/22) History of non-ST elevation myocardial infarction (NSTEMI) x2, 2017 and 2018 Hyperlipidemia Secondary prevention with moderate intensity statin (atorvastatin 20mg daily) Hypertension Managed with furosemide + metoprolol Hypothyroidism Managed with levothyroxine supplementation Lichen planus Macular degeneration Macular degeneration Mitral regurgitation Neurologic gait dysfunction Obstructive sleep apnea Long standing. Managed with CPAP nightly. CPAP titration polysomnography (07/14). Secondary hyperparathyroidism 2/2 CKD stage III. Managed with calcitriol. Followed by nephrology Sensorineural hearing loss (SNHL) of both ears Spinal stenosis Venous insufficiency of both lower extremities Venous stasis ulcers of both lower extremities Vitamin D deficiency Surgical History H/O colonoscopy History of repair of rectocele S/P breast biopsy S/P section S/P cholecystectomy S/P hysterectomy S/P implantation of urinary electronic stimulator device Family History Father , Age 64 No problems noted. Mother , Age 61 No problems noted. Other Coronary heart disease Denies family history of Ovarian cancer Prostate cancer Crohn's disease Breast cancer Lung cancer Colorectal cancer Social History Smoking Status: Never smoker Second Hand Exposure: No; Hx Alcohol Use: No Hx Substance Use: No Preferred Language: Puerto Rican Communication Ability: Effective Visual Impairment: No Limitations Hearing Ability: Normal Ultrasound Supervisor Required: No Beliefs That Will Affect Care: Anabaptism marital status: Life Partner Current Living Situation: Spouse current occupational status: retired Other Information That Helps Us Care for You: No Feels Safe at Home: Yes Safety Concerns: Feels Safe At This Time Childhood Exposure to Second-Hand Smoke: No Dental Care, Regularly: Yes Physical Activity Frequency: 1-2 Times per Week Physical Activity Frequency Comment: physical therapy Seatbelt Use: always Sunscreen Use: Yes Assistive Devices: Glasses Review of Systems Review of Systems: Constitutional: No fever, sweats or chills, + fatigue, + generalized weakness Eyes: No diplopia, no worsening or blurred vision ENT: normal hearing, no trouble swallowing Respiratory: No cough, sputum, dyspnea at rest or on exertion Cardiovascular: No chest pain, tightness or palpitations Abdomen: No pain, nausea, vomiting, diarrhea or constipation Musculoskeletal: No joint pain, calf pain, + pitting swelling in both legs Neurologic: + generalized weakness, + Frequent falls, +peripheral neuropathy, uses a cane at baseline. Psychiatric: + anxiety and depression on SNRI, + nonthreatening visual hallucinations Skin: No rash or itch Physical Exam Physical Exam: General: awake, alert, no apparent distress, lying on her right side during exam, +obese with BMI of 33.8 Head: Normocephalic, atraumatic ENT: PERRL, EOMI, no pharyngeal exudate, mucous membranes dry, upper dentures Chest: On room air, faint inspiratory wheeze, no adventitious breath sounds Cardiac: irregularly irregular, faint systolic ejection murmur, JVD difficult to assess due to body habitus, normal peripheral pulses, good capillary refill Abdominal: NABS x 4 quadrants, soft, nondistended, nontender to palpation, no rebound or guarding Extremities: Normal inspection, 2+ pitting edema BLE, small fluid blister on R foot between first and second toe, no erythema, small areas of developing ecchymosis, calfs nontender to palpation Psych: Normal mood and affect, + admits to visual hallucination with little white dog earlier, not in room presently, denies auditory hallucinations, denies SI/HI. Neuro: AAO x 3, strength intact bilaterally and rated 5/5, slightly weaker in the R leg compared to the leg due to back pain, + asterixis hands bilaterally, no motor deficits, speech is clear, no peripheral sensory deficits Results & Data Results & Data ([facility]) Vital Signs (Past 12 Hours) Vital Signs Temp Pulse Resp BP 05/03/20 11:18 36.8 C 77 20 130/60 Diagnostic Findings XR chest 1V portable CLINICAL HISTORY: Atypical chest pain. COMPARISON STUDY: Chest radiograph April 30, 2020. FINDINGS: Lung volumes are normal. Mild elevation of the left hemidiaphragm is unchanged. There is no pneumothorax or pleural effusion. There is no consolidation or evidence for pulmonary edema. Cardiomegaly is again noted. The appearance of the chest is unchanged. IMPRESSION: No acute cardiopulmonary findings. No change in appearance of the chest. ECG Additional Comments: 03-MAY-2020 11:35:44 [facility]-EDSTAT ROUTINE RETRIEVAL Atrial fibrillation Possible Anterior infarct (cited on or before 27-DEC-2018) Abnormal ECG When compared with ECG of 26-SEP-2019 20:57, No significant change was found 25mm/s 10mm/mV 150Hz 9.0.9 12SL 241 BEN: 15 Referred by: REFERRED SELF Unconfirmed Vent. rate 78 BPM RI interval * ms QRS duration 80 ms QT/QTc 364/414 ms Code Status & VTE Plan Code Status Full code - discussed with pt and son(Ar MORAN) at bedside Critical Care Time Prolonged Care Time Prolonged Care Time: Yes Total Prolonged Care Time: 135 Time spent reviewing the patients chart, including but not limited to her complex medical history, discussion with family, patient, attending, imaging and laboratory review required prolonged care time of 135 minutes. Supervising Physician Co-Signing Physician Notes Attending Attestation and Admit Note: Pt seen/examined, chart reviewed, care plan d/w HEAVEN Jones. I agree w/ the olivarez components of her documentation. 85yo female with numerous medical problems including but not limited to chronic diastolic CHF, chronic pain syndrome on narcotics, permanent a.fib, ambulatory dysfunction - presenting with multiple complaints. Some complaints include frequent falls, worsening/refractory LE edema despite escalating doses of lasix, knee pain and buckling, neck pain in the context of recent falls, etc. During my personal rounds she was most concerned about her frequent falls. During a typical fall she simply loses her balance and/or her knees give out. She also mentions several instances of falling out of her hospital bed at home. Denies syncope or presyncope with these falls. PMH, PSH, allergies, meds, sochx, famhx - reviewed vitals stable, o2 sats stable gen - NAD eyes - PERRL neck - tender paraspinal areas left; no spinous process pain heart - irregular, s1 s2; no JVD lungs - decreased BS bases but no rales abd - soft NT ext - edema b/l but asymmetric; RLE larger than LLE; pulses 2+ b/l musculo - advanced OA changes b/l knees skin - mild stasis changes b/l shins neuro - minimal left pronator drift labs reviewed cxr reviewed EKG - a. fib CT head - old right parietal stroke A/P: 1. acute/chronic diastolic CHF - agree with IV diuresis, CHF clinic consult, etc. Symptoms/ signs look more like right heart failure. 2. frequent falls with neck pain - c-spine CT, r/o fracture. PT/OT evals. Uncertain if polypharmacy for chronic pain syndrome is giving side effects leading to falls. B12 level noted to be normal in 2019. 3. b/l knee pain - advanced OA on exam - voltaren gel. Likely contributing to fall risk. 4. encephalopathy/confusion - ammonia, vbg acceptable. Polypharmacy/toxic?? 5. b/l edema, asymmetric - in the event she has been noncompliant with eliquis will check dopplers, r/o DVT. If negative edema is combo of decompensated CHF and venous insufficiency. 6. right parietal lobe CVA On CT - patient states during her cardiac issues in [place] 2 years ago the medical team was concerned about CVA at that time. Her frequent falls and ambulatory dysfunction could be worse due to this incidental finding. Likely a.fib caused the old CVA but certainly cannot prove such. 7. CKD stage 4 Dm Almaraz MD PG Care Time/CCT Total # of Minutes Spent Total Time Spent with Patient: Total time spent is greater than 50% in coordination of care (as documented) at patient's floor/unit and/or counseling patient: Prolonged Care Time Prolonged Care Time: Yes Total Prolonged Care Time: 135 Coding Level of Care Code 71817 Initial Inpt Care Lvl 3 Diagnoses Chronic diastolic congestive heart failure I50.32 CAD (coronary artery disease) I25.10 Hypertension I10 Atrial fibrillation I48.2 Atrial fibrillation type: permanent Hyperlipidemia E78.5 Venous insufficiency of both lower extremities I87.2 COPD (chronic obstructive pulmonary disease) J44.9 Spinal stenosis M48.00 Hypothyroidism E03.9 Hypothyroidism type: unspecified Secondary hyperparathyroidism N25.81 Diabetes mellitus, type II E11.9 Diabetic peripheral neuropathy E11.42 Chronic kidney disease (CKD) N18.9 Depression with anxiety F41.8 GERD (gastroesophageal reflux disease) K21.9 Esophagitis presence: esophagitis presence not specified Additional Codes Prolonged Care Time - Prolonged Care Time: Yes ([id number]) (1) Atrial fibrillation Atrial fibrillation type: permanent Qualified Code(s): I48.2 - Chronic atrial fibrillation (2) Hypothyroidism Hypothyroidism type: unspecified Qualified Code(s): E03.9 - Hypothyroidism, unspecified (3) GERD (gastroesophageal reflux disease) Esophagitis presence: esophagitis presence not specified Qualified Code(s): K21.9 - Gastro-esophageal reflux disease without esophagitis
[2020-05-03 15:12] LABS: Base Excess VBG 10.1 mEq/L; HCO3 VBG 37 mmol/L; PCO2 VBG 66 mmHg (38-50); PO2 VBG 26 mmHg; pH VBG 7.37 (7.36-7.41)
[2020-05-03 15:14] LABS: Oxygen Saturation VBG < 60.0 %
[2020-05-03] MEDS ORDERED: ACETAMINOPHEN 325 MG TAB PO PRN (15:48)
[2020-05-03] MEDS ORDERED: DEXTROSE 50% 50 ML SYRINGE IV PRN (15:48)
[2020-05-03] MEDS ORDERED: GABAPENTIN 300 MG CAP PO PRN (15:48)
[2020-05-03] MEDS ORDERED: ONDANSETRON INJ 2 MG/ML 2 ML VIAL IV PRN (15:48)
[2020-05-03] MEDS ORDERED: MoRPHine SULFATE IR 15 MG TAB (IMMEDIATE RELEASE) PO PRN (15:48)
[2020-05-03] MEDS ORDERED: GLUCOSE 40% GEL 15 GM TUBE PO PRN (15:48)
[2020-05-03] MEDS ORDERED: TAPENTADOL HCL 50 MG TAB PO PRN (15:48)
[2020-05-03] MEDS ORDERED: DICLOFENAC SOD 1% GEL 100 GM TUBE EXT PRN (15:48)
[2020-05-03] MEDS ORDERED: CARBOHYDRATES FOR HYPOGLYCEMIA PO PRN (15:48)
[2020-05-03] MEDS ORDERED: GLUCOSE 10 TABS/TUBE PO PRN (15:48)
[2020-05-03] MEDS ORDERED: GLUCAGON FOR INJ 1 MG VIAL SQ PRN (15:48)
[2020-05-03] MEDS ORDERED: FLUTICASONE PROPIONATE NA SPR 16 GM BTL PRN (15:48)
[2020-05-03] MEDS ORDERED: FUROSEMIDE 40 MG/4 ML VIAL IV STA (15:53)
[2020-05-03] MEDS ORDERED: ALBUTEROL HFA 8 GM INHALER INH PRN (15:59)
[2020-05-03] MEDS ORDERED: LIDOCAINE 4% CREAM 15 GM TUBE EXT PRN (16:00)
--- NOTE | 2020-05-03 16:34 | CT Scan Report ---
CT head/brain wo con CLINICAL HISTORY: Head trauma. Confusion. Patient on anticoagulants. COMPARISON STUDY: 07/22/2017 TECHNIQUE: Axial CT of the brain is performed from the vertex to the skull base. IV contrast was not administered for this examination. A dose lowering technique was utilized adhering to the principles of ALARA. CT DOSE: 1311.06 mGy.cm FINDINGS: No intra or extra-axial mass lesions are visualized. There is no CT evidence of acute cortical infarc tion. There is no evidence of midline shift. There is no acute hemorrhage. No calvarial fractures ar e visualized. There are patchy white matter hypodensities likely on a small vessel basis. There is an old right par ietal lobe infarct. There is no evidence of pathologic ventricular dilatation. There is no evidence of acute sinusitis IMPRESSION: 1. Motion compromised study 2. Old right parietal lobe infarct 3. No acute intracranial findings. ACT 112: Negative or not required by law. Electronically signed by: Yogesh French M.D. 05/03/2020 4:33 PM
[2020-05-03] MEDS: INSULIN ASPART 100 UNITS/ML 3 ML PEN SC SCH ×2 (16:38→20:25)
--- NOTE | 2020-05-03 16:57 | Electrocardiogram Report ---
Test Reason : Blood Pressure : / mmHG Vent. Rate : 078 BPM Atrial Rate : 084 BPM P-R Int : 000 ms QRS Dur : 080 ms QT Int : 364 ms P-R-T Axes : 000 014 077 degrees QTc Int : 414 ms Atrial fibrillation Abnormal ECG When compared with ECG of 26-SEP-2019 20:57, No significant change was found Confirmed by Joseph Azar ([id number]) on 05/03/2020 4:57:09 PM Referred By: REFERRED SELF Confirmed By:Chucky Azar
[2020-05-03] MEDS ORDERED: INSULIN ASPART 100 UNITS/ML 3 ML PEN SQ SCH (17:00)
[2020-05-03] MEDS: APIXABAN 2.5 MG TAB PO SCH (20:26)
[2020-05-03] MEDS: ATORVASTATIN 20 MG TAB PO SCH (20:27)
[2020-05-03] MEDS: MAGNESIUM OXIDE 400 MG TAB PO SCH (20:27)
[2020-05-03] MEDS: GABAPENTIN 800 MG TAB PO SCH (20:27)
[2020-05-03] MEDS: METOPROLOL SUCC 50MG EXT REL TAB PO SCH (20:27)
[2020-05-03] MEDS: POTASSIUM CHLORIDE CRTAB 20 MEQ TABCR PO SCH (20:28)
[2020-05-03] MEDS: INSULIN GLARGINE SOLOSTAR 100 UNITS/ML 3 ML PEN SQ SCH (20:29)
[2020-05-03] MEDS ORDERED: FUROSEMIDE 40 MG/4 ML VIAL IV SCH (21:00)
[2020-05-03] MEDS: DICLOFENAC SOD 1% GEL 100 GM TUBE EXT SCH (21:47)
[2020-05-04] MEDS: LEVOTHYROXINE SODIUM 50 MCG TABLET PO SCH (06:00)
[2020-05-04 06:10] LABS: Hematocrit (blood only) 31.3 % (37-47); Hemoglobin 9.5 g/dL (12.0-16.0); Mean Corpuscular Hemoglobin 32.8 pg (25-34); Mean Corpuscular Hgb Conc 30.4 g/dL (32-36); Mean Corpuscular Volume 107.9 fL (80-100); Platelet Count 230 K/uL (130-400); RDW Coefficient of Variation 17.5 % (11.5-14.5); RDW Standard Deviation 68.9 fL (36.4-46.3); White Blood Count 5.81 K/uL (4.8-10.8)
[2020-05-04 06:24] LABS: Estimated Average Glucose 97 mg/dl
[2020-05-04 06:59] LABS: Albumin Level 3.3 gm/dl (3.4-5.0); BUN Creatinine Ratio 16.3 (10-20); Calcium 8.2 mg/dl (8.5-10.1); Creatinine Clr Calc Pharmacy 20.8 ml/min; Est GFR (African American) 28.1; Est GFR (Non-African American) 24.3; Globulin 3.4 gm/dl (2.5-4.0); Phosphorus 5.5 mg/dl (2.5-4.9); Total Protein 6.7 gm/dl (6.4-8.2)
--- NOTE | 2020-05-04 07:11 | Ultrasound Report ---
ULTRASOUND BILATERAL LOWER EXTREMITY VENOUS CLINICAL HISTORY: Lower extremity edema. COMPARISON STUDY: Left lower extremity venous ultrasound dated 12/11/2015. TECHNIQUE: Real-time, grayscale, and color Doppler sonography of the deep veins of the right and left lower extremity was performed from the inguinal crease to the calf. Compression and augmentation wer e utilized. FINDINGS: There is no sonographic evidence of deep venous thrombosis identified in the right or left lower extremity. The common femoral, superficial femoral, and popliteal veins are patent and normally compressible bilaterally. The greater saphenous vein and the profunda femoris vein at the junction w ith the common femoral vein are clear in both legs. The visualized calf veins are patent bilaterally. IMPRESSION: There is no sonographic evidence of deep venous thrombosis identified in the right or lef t lower extremity. ACT 112: Negative or not required by law. Electronically signed by: Jorge Cornejo M.D. 05/04/2020 7:09 AM
--- NOTE | 2020-05-04 07:42 | CT Scan Report ---
CT SCAN OF THE CERVICAL SPINE CLINICAL HISTORY: Falls. Neck pain. COMPARISON STUDY: Cervical spine radiographs dated 03/06/2008. TECHNIQUE: CT scan of the cervical spine is performed from the skull base to the upper thoracic spine . Images are reviewed in the axial, sagittal, and coronal planes. IV contrast was not administered fo r this examination. A dose lowering technique was utilized adhering to the principles of ALARA. CT DOSE: 252.40 mGy.cm FINDINGS: Skeletal structures: The skeletal structures are osteopenic. There is no evidence of fracture or subl uxation involving the cervical spine. Vertebral body height is maintained. There is minimal retrolist hesis at C3-C4. Alignment is otherwise preserved. There is straightening of the cervical lordosis wit h reversal centered at C4-C5. Anterior osteophytes are seen throughout. The odontoid process and late ral masses are intact. The atlantoaxial articulation is preserved. The spinous processes appear intac t. There is mild to moderate multilevel cervical spondylosis. Uncovertebral and facet arthropathy con tribute to neural foraminal narrowing at several levels. Intervertebral discs: There is moderate to advanced disc space narrowing seen at all levels between C 3-C4 through C6-C7. Central canal: Posterior disc osteophyte complexes are seen at all levels between C3-C4 and C6-C7. Th is likely contributes to multilevel acquired compromise of the central canal. Soft tissues: The prevertebral and paraspinous soft tissues are within normal limits. There is a calc ified sialolith noted in the right parotid gland. Calvarium: The visualized calvarium at the skull base appears intact. Brain parenchyma: Partially visualized brain parenchyma at the skull base is within normal limits. Sinuses and mastoids: The visualized paranasal sinuses are clear. The mastoid air cells are well pneu matized. Lung apices: Clear as visualized. IMPRESSION: 1. There is no evidence of fracture or subluxation involving the cervical spine. 2. Osteopenia and spondylotic change as above. ACT 112: Negative or not required by law. Electronically signed by: Jorge Cornejo M.D. 05/04/2020 7:40 AM
[2020-05-04 07:56] LABS: Magnesium 2.7 mg/dl (1.8-2.4)
[2020-05-04] MEDS: POTASSIUM CHLORIDE CRTAB 20 MEQ TABCR PO SCH ×2 (08:11→20:28)
[2020-05-04] MEDS: PANTOprazole 40 MG TAB PO SCH (08:11)
[2020-05-04] MEDS: ISOSORBIDE MONO EXTENDED REL 30 MG TABCR PO SCH (08:12)
[2020-05-04] MEDS: MAGNESIUM OXIDE 400 MG TAB PO SCH ×2 (08:12→20:29)
[2020-05-04] MEDS: GABAPENTIN 800 MG TAB PO SCH ×3 (08:13→20:26)
[2020-05-04] MEDS: CLOPIDOGREL BISULFATE 75 MG TAB PO SCH (08:13)
[2020-05-04] MEDS: DULoxetine HCL 60 MG CAP PO SCH (08:13)
[2020-05-04] MEDS: allopurinoL 300 MG TAB PO SCH (08:14)
[2020-05-04] MEDS: DIGOXIN 0.125 MG TAB PO SCH (08:14)
[2020-05-04] MEDS: APIXABAN 2.5 MG TAB PO SCH ×2 (08:14→20:28)
[2020-05-04] MEDS: DICLOFENAC SOD 1% GEL 100 GM TUBE EXT SCH ×4 (08:15→20:38)
[2020-05-04] MEDS: METOPROLOL SUCC 50MG EXT REL TAB PO SCH ×2 (08:17→20:27)
[2020-05-04] MEDS: INSULIN ASPART 100 UNITS/ML 3 ML PEN SC SCH ×4 (08:22→20:30)
[2020-05-04] MEDS ORDERED: ACETAMINOPHEN 500 MG TAB PO PRN (08:57)
[2020-05-04] MEDS ORDERED: FUROSEMIDE 40 MG in SYRINGE 0 ML IV SCH (09:00)
[2020-05-04] MEDS: DOCUSATE SODIUM 100 MG CAP PO SCH ×2 (10:16→20:30)
--- NOTE | 2020-05-04 15:00 | Heart Failure Consultation ---
Date of Consultation May 04, 2020 Assessment & Plan (1) Chronic diastolic congestive heart failure: (2) Chronic kidney disease (CKD): (3) Obstructive sleep apnea: (4) CAD (coronary artery disease): (5) Weakness: Patient does not appear excessively hypervolemic on exam today. Weight is about 5 lb from her typical baseline and she does have some minimal edema. Would continue diuresis while admitted with careful monitoring of renal function. Resume home dose once creatinine bumps. Her other symptoms leading up to admission would be somewhat atypical for heart failure exacerbation (falls, mental status changes, tremors). Discussed with primary service. Suspect may be secondary to medications, specifically Morphine which was recently added. With CKD, may have accumulation resulting in neuro symptoms. Morphine and Nucynta held on admission. Patient seems to be more alert and at her baseline today. Continue strict I&Os. Educated patient on the importance of measuring all urine. Daily standing weights. Low sodium diet. Will be away from the hospital through the weekend. Anticipate close follow up with the heart failure program after discharge. History of Present Illness Attending Physician: Roz Spicer MD Ms. Porter is an 85-year-old female with a past medical history significant for diastolic CHF, coronary artery disease, atrial fibrillation, CAD, mitral r egurgitation, type 2 diabetes mellitus, dyslipidemia, hypertension, BETHANY, CKD, hypothyroidism, GERD, gout, and macular degeneration. Dr. Roland is her primary package car driver. Recent studies: 1. Cardiac catheterization 12/06/18- Severe single vessel coronary artery disease - 50% ostial LAD stenosis. - 90+% acute appearing proximal LAD in-stent restenosis. 50 to 60% earlymid segment after prior stent - diffuse 60% late- mid LAD disease. Borderline intracardiac filling pressure. Successful PCI of proximal to mid LAD with single drug-eluting stent overlapping prior stent (2.5 x 18 mm Xience Aditi; postdilated with 2.75 NC 2. Echocardiogram 08/15/18- Normal left ventricular systolic function 55-60%. RV mildly dilated. LA severely dilated. RA mod dilated. Moderate to severe MR. RVSP elevated at 30-40 mmHg. 3. Echo 04/14/19: LV size, wall motion, and systolic function are normal. EF 65- 70%. Mild MR. Mild TR. Patient was evaluated in the office earlier in the week for concerns of heart failure. Patient had increased edema in the legs and shortness of breath. Her main compliant was generalized weakness and a fatigue. Patient was falling asleep during her office visit. She also reported involuntary twitching in her hands. Her life partner confirms that she's been sleeping a lot more during the day. Her weight was stable at 169 lb. She was taking Lasix 80 mg in the am/40mg im the pm normally. She did increase this to 120 mg in the am for several days without relief. Oxygen saturation was > 90%. UA was negative. CXR was negative. Hemoglobin was lower than her baseline and PCP was made aware. She slightly hypervolemic, mainly in her lower extremities, but her symptoms seemed out of proportion. She was advised to try an additional 120 mg of Lasix and reassess her symptoms the following day. Patient reported issues with her balance, frequent falls. Weight was 166 lb. She denied shortness of breath. Patient then presented to the ED 05/03/20 for bilateral leg swelling, falls, confusion. Head CT was negative. Ammonia negative. ProBNP trending down from 8k to 6k. CXR remains negative for acute process. She was admitted and treated for heart failure. She was initiated on Lasix 40 mg IV BID. She had several unmeasured voids but doesn't think her output is more than normal since admission. Weight was 169 lb on the scale this am. She seems more alert today. She's unsure why she is in the hospital. She reports her breathing is at baseline. She was able to ambulate the halls today. Edema is at baseline. She's very concerned about getting her COVID vaccine. Of note, patient recently started on Morphine for pain control. It's unclear if or how frequently she's been taking it. Also on Nucynta, Gabapentin Allergies Allergy/AdvReac Type Severity Reaction Status Date / Time shellfish derived Allergy Severe ANAPHYLAXIS Verified 05/03/20 13:19 iodine Allergy Intermediate ANAPHYLAXIS Verified 05/03/20 13:19 lisinopril Allergy Unknown Verified 05/03/20 13:19 oxybutynin [From Ditropan] Allergy Unknown Verified 05/03/20 13:19 sertraline [From Zoloft] Allergy Unknown Verified 05/03/20 13:19 paroxetine AdvReac Unknown GI UPSET Verified 05/03/20 13:19 Home Medications Medication Instructions Recorded Confirmed Type PreserVision AREDS-2 0 tab PO BID 12/14/17 05/03/20 History lidocaine 4 % topical gel 1 appln TOP TID PRN #30 gm 01/14/19 05/03/20 Rx magnesium oxide 400 mg PO BID tab 01/14/19 05/03/20 History albuterol sulfate 90 mcg/actuation 1 - 2 puffs INH Q4H PRN #6.7 gm 04/26/19 05/03/20 Rx aerosol inhaler metoprolol succinate 50 mg 100 mg PO BID #360 tab 11/04/19 05/03/20 Rx tablet,extended release 24 hr cholecalciferol (vitamin D3) 25 0 unit PO QAM tab 12/30/19 05/03/20 History mcg (1,000 unit) tablet levothyroxine 50 mcg tablet 50 mcg PO QAM 30 Days #30 tab 01/03/20 05/03/20 Rx digoxin 125 mcg (0.125 mg) tablet 125 mcg PO QAM #90 tab 01/09/20 05/03/20 Rx fluticasone propionate 50 1 spray INTRANASAL BID PRN #16 g 01/11/20 05/03/20 Rx mcg/actuation nasal spray,suspension gabapentin 300 mg capsule 300 mg PO HS PRN #90 cap 01/24/20 05/03/20 Rx clopidogrel 75 mg tablet 75 mg PO DAILY #90 tab 01/25/20 05/03/20 Rx pantoprazole 40 mg tablet,delayed 40 mg PO QAM #90 tab 02/01/20 05/03/20 Rx release insulin aspart U-100 100 unit/mL 8 - 9 unit SUBCUT TIDM ml 02/03/20 05/03/20 History (3 mL) subcutaneous pen allopurinol 100 mg tablet 300 mg PO QAM #270 tab 02/15/20 05/03/20 Rx insulin glargine 100 unit/mL (3 42 unit SUBCUT HS #15 ml 02/16/20 05/03/20 Rx mL) subcutaneous pen diclofenac sodium 1 % topical gel 2 g TOPICAL HS PRN #100 gm 02/23/20 05/03/20 Rx semaglutide 1 mg/dose (2 mg/1.5 0.25 mg SUBCUT .weekly #1.5 ml 02/28/20 05/03/20 Rx mL) subcutaneous pen injector tapentadol 50 mg tablet 50 mg PO BID PRN #60 tab 03/05/20 05/03/20 Rx gabapentin 800 mg tablet 800 mg PO TID 90 Days #270 tab 03/21/20 05/03/20 Rx duloxetine 60 mg capsule,delayed 60 mg PO QAM #90 cap 03/27/20 05/03/20 Rx release apixaban 2.5 mg tablet See Rx Instructions .ROUTE 04/09/20 05/03/20 Rx .COMPLEX #60 tab isosorbide mononitrate 30 mg 30 mg PO QAM #90 tab 04/30/20 05/03/20 Rx tablet,extended release 24 hr furosemide 40 mg tablet 120 mg PO DAILY #270 tab 05/01/20 05/03/20 Rx potassium chloride 20 mEq 20 meq PO BID tab 05/01/20 05/03/20 History tablet,extended release atorvastatin 0 mg PO QPM 05/03/20 05/03/20 History morphine 15 mg PO BID PRN 05/03/20 05/03/20 History Patient History Medical History (Updated 05/04/20 @ 07:37 by Miquel Trujillo MD) Anemia Chronic macrocytic Asthma Atrial fibrillation CAD (coronary artery disease) Cerebrovascular disease Chronic diastolic congestive heart failure Chronic kidney disease (CKD) Stage III, baseline Cr 1.3-1.5mg/dL. Complicated with normocytic anemia and secondary hyperparathyroidism. Followed by nephrology. COPD (chronic obstructive pulmonary disease) Diabetes mellitus, type II Controlled, managed without medication. HbA1c 7.3% (02/21). Diabetic peripheral neuropathy Generalized osteoarthritis CT scan lumbar spine (03/16) severe multilevel spinal stenosis. Cannot perform MRI due to bladder implant. Followed by pain management. Epidural steroid injections with improvement of pain. Evaluated by ortho, decided against surgery. Managed with gabapentin 300mg TID + APAP PRN + tapentadol 50mg BID PRN GERD (gastroesophageal reflux disease) History of gout Managed with allopruinol daily. No recent gouty attacks. Uric acid suppressed 3.4 mg/dl (12/22) History of non-ST elevation myocardial infarction (NSTEMI) x2, 2017 and 2018 Hyperlipidemia Secondary prevention with moderate intensity statin (atorvastatin 20mg daily) Hypertension Managed with furosemide + metoprolol Hypothyroidism Managed with levothyroxine supplementation Lichen planus Macular degeneration Macular degeneration Mitral regurgitation Neurologic gait dysfunction Obstructive sleep apnea Long standing. Managed with CPAP nightly. CPAP titration polysomnography (07/14). Secondary hyperparathyroidism 2/2 CKD stage III. Managed with calcitriol. Followed by nephrology Sensorineural hearing loss (SNHL) of both ears Spinal stenosis Venous insufficiency of both lower extremities Venous stasis ulcers of both lower extremities Vitamin D deficiency Surgical History H/O colonoscopy History of repair of rectocele S/P breast biopsy S/P section S/P cholecystectomy S/P hysterectomy S/P implantation of urinary electronic stimulator device Family History Father , Age 64 No problems noted. Mother , Age 61 No problems noted. Other Coronary heart disease Denies family history of Ovarian cancer Prostate cancer Crohn's disease Breast cancer Lung cancer Colorectal cancer Social History Smoking Status: Never smoker Second Hand Exposure: No; Hx Alcohol Use: No Hx Substance Use: No Preferred Language: Bur[place]ian Communication Ability: Effective Visual Impairment: No Limitations Hearing Ability: Normal Academic Guidance Specialist Required: No Beliefs That Will Affect Care: Sabianist marital status: Life Partner Current Living Situation: Spouse current occupational status: retired Other Information That Helps Us Care for You: No Feels Safe at Home: Yes Safety Concerns: Feels Safe At This Time Childhood Exposure to Second-Hand Smoke: No Dental Care, Regularly: Yes Physical Activity Frequency: 1-2 Times per Week Physical Activity Frequency Comment: physical therapy Seatbelt Use: always Sunscreen Use: Yes Assistive Devices: Walker Physical Exam Physical Exam: Constitutional: Alert, oriented, in no acute distress HEENT: Head is atraumatic and normocephalic. EOMs intact. Sclera anicteric. Face is symmetric. No perioral cyanosis. Mucous membranes moist. Neck: Supple, no JVD, no carotid bruits Pulmonary: Normal respiratory effort, clear to auscultation bilaterally. No rales or crackles.No wheezing. Cardiac: Irregularly irregular, normal S1 and S2, no gallops, no rubs, no obvious murmurs Extremities: Trace-1+ BL lower extremity edema. Mild bilateral erythema. No wounds or drainage. No clubbing or cyanosis. Pulses intact. Abdomen: Obese. Normal bowel sounds, soft, non-tender, no abdominal mass palpated Skin: No rash, lesions, or skin abnormalities. Neurological: Oriented to person, place, and time Results & Data ([facility]) Vital Signs (Past 12 Hours) Vital Signs Temp Pulse Pulse Resp BP Pulse Ox Pulse Ox 05/04/20 12:03 98.2 F 66 18 132/65 98 05/04/20 10:30 93 05/04/20 08:14 54 L 05/04/20 08:00 67 05/04/20 07:53 98.4 F 78 18 113/76 94 05/04/20 04:30 97.9 F 68 16 126/71 93 Heart Failure Data/Metrics Heart Failure Type: Diastolic Ejection Fraction: 65-70% NYHA classification: III: Sx w/ ltd. activity Risk Stratification: B Dry Weight: 165 lb Weight: 169 lb Evidenced Based Beta Antonio Therapy Beta Antonio Therapy: Yes Beta Antonio Name: Metoprolol Succinate JOY/ARB/ARNI Therapy JOY/ARB Therapy: Not Indicated Aldosterone Antagonist Therapy Aldosterone Antagonist Therapy: Not Indicated Coding Level of Care Code 22036 Initial Inpt Care Lvl 3 Diagnoses Chronic diastolic congestive heart failure I50.32 Chronic kidney disease (CKD) N18.9 Obstructive sleep apnea G47.33 CAD (coronary artery disease) I25.10 Weakness R53.1
[2020-05-04] MEDS ORDERED: FUROSEMIDE 80 MG in SYRINGE 0 ML IV SCH (17:00)
--- NOTE | 2020-05-04 18:23 | Hospitalist Progress Note ---
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 Most likely secondary to taking a new medication of morphine IR in the setting of chronic kidney disease with toxic metabolites-she just started this a couple weeks ago Morphine has been held and she is significantly improved today Discontinue morphine permanently Okay to restart Nucynta which she was on for years and had no difficulty with and it controlled her pain (2) Chronic diastolic congestive heart failure: -Some mild volume overload consistent with acute on chronic CHF exacerbation on admission - Was recently seen in the CHF clinic and was hypervolemic at that time (04/30) and had increased lasix to 120 mg in am x past 3 days, baseline weight of 160-165, unsure of current weight. PO lasix not effective in the outpatient setting so will be admitted for aggressive diuresis and lab monitoring. - Continue IV lasix BID but increased to 80 twice daily as she is not having much urine output - strict I/Os, daily weights, fluid restriction of 1500mL daily - BNP elevated 6361 which is actually improved from 2 days prior - Heart failure clinic consultation- follows with Idalmis Rothman as outpatient already, Dr. Roland last saw her earlier this month. - Recently had echo conducted as outpatient- 04/14/19 showing EF of 65-70%, mild concentric LVH, mild mitral regurg, mild tricuspid regurg, no WMA. - no need to repeat - Continue potassium supplementation with aggressive diuresis (3) CAD (coronary artery disease): - s/p PCI of the proximal LAD on 12/06/[address] Miller. She denies angina. LV systolic function is normal. In Mar 2018 was admitted in [facility] with A. fib with RVR, elevated troponin and findings consistent with Takotsubo's cardiomyopathy, at that point time her had recently . In December 2018 () was admitted for A. fib with RVR and NSTEMI where she underwent cardiac cath and had URBANO placed in the LAD. Again readmitted in December () with UTI and bacteremia. - Continue Plavix, Eliquis, atorvastatin, metoprolol, and Imdur. - troponin slightly elevated but stable is consistent with myocardial demand ischemia, likely secondary hypervolemia;will monitor BMP and will trend trop. (4) Hypertension: - BP well controlled. Continue current therapy. (5) Atrial fibrillation: - Rate controlled with digoxin and metoprolol, and she is asymptomatic. EKG reviewed - Patient self discontinued her Diltiazem in February. Continue to monitor her rate and can restart if needed. - Eliquis 2.5 mg BID with weight and Cr. clearance (6) Hyperlipidemia: - Statin therapy as above (7) Venous insufficiency of both lower extremities: - Chronic, appears hypervolemia has worsened this Dopplers are negative for DVT here (8) COPD (chronic obstructive pulmonary disease): - Hx of such, continue inhalers prn, does not follow formally with pulm from EMR eval Not requiring oxygen (9) Spinal stenosis: - Previously evaluated, followed with Dr. Samson, underwent multiple spinal injections for lumbar spinal stenosis/pain, was recommended that she have surgery however patient was reluctant to proceed with that given her advanced age. Has been managing pain with gabapentin, Cymbalta, morphine, Voltaren gel; previously on Nucynta Discontinuing morphine as above and restarting home Nucynta as needed (10) Hypothyroidism: - Continue levothyroxine 50 mcg daily Last TSH 3 months ago was normal (11) Secondary hyperparathyroidism: - Noted, chronic Continue vitamin D3 (12) Diabetes mellitus, type II: - A1C only 5.0% but is also anemic so may be inaccurate - ISS with accuchecks achs for coverage-blood sugars here are well controlled - Continue Lantus 42 U HS and 8 U standing with meals - Takes trulicity weekly as outpt on Tuesdays (13) Diabetic peripheral neuropathy: - Continue gabapentin 800 mg TID, 300 mg HS (14) Chronic kidney disease (CKD): - Follow am labs, Cr 1.93/ BUN 28, appears to be slightly elevated compared to baseline however her labs fluctuate. Likely partially due to increased lasix as an outpatient. -Avoid nephrotoxins -renally dose meds when appropriate -follow BMP (15) Depression with anxiety: - Continue cymbalta for mood, gabapentin likely slightly helping with anxiety and as a mood stabilizer (16) GERD (gastroesophageal reflux disease): - Continue pantoprazole (17) Obstructive sleep apnea: Is on CPAP at home-may bring in own from home (18) Elevated troponin: As noted above, likely myocardial demand ischemia secondary to toxic encephalopathy in the setting of CAD (19) Anemia: Macrocytic anemia Continue follow-up as an outpatient (20) History of gout: Continue home allopurinol (21) Asthma: No acute issues (22) DVT prophylaxis: DVT ppx: - Eliquis BID, scds CODE: Full Dispo: From home, should be stable for discharge home tomorrow Admission and Anticipated Discharge Date Admission Date: May 03, 2020 Subjective Pt feels well and has no complaints. Denies CP/SOB. Does not remember coming to the hospital. Reports she started taking the morphine IR about a week ago. Was previously on Nucynta for pain which worked well. RN reports no further twitching today like yesterday. Tele with Afib rates 50-70s Review of Systems Review of Systems: All systems reviewed & are unremarkable except as noted in HPI & below Physical Exam Constitutional: WD/WN, vitals as above Eyes: PERRL, conjunctivae normal, anicteric sclerae ENMT: external ear and nose normal, oropharynx normal Neck: trachea midline, no thyromegaly Respiratory: normal respiratory effort, lungs clear to auscultation Cardiovascular: RRR, no murmur, no edema Chest (Breasts): Chest: normal inspection of chest Gastrointestinal (Abdomen): normal bowel sounds, soft, nontender, no hepatosplenomegaly Musculoskeletal: Extremities: extremities normal to inspection; no cyanosis and no clubbing Skin: no rashes, warm and dry Neurologic: moves all extremities and awake; no focal motor deficits Psychiatric: A+Ox3, euthymic affect Lymphatic: no lymphedema Results & Data Results & Data ([facility]) Vital Signs (Past 12 Hours) Vital Signs Temp Pulse Pulse Resp BP Pulse Ox Pulse Ox 05/04/20 15:29 36.7 C 87 20 160/65 H 93 05/04/20 12:03 36.8 C 66 18 132/65 98 05/04/20 10:30 93 05/04/20 08:14 54 L 05/04/20 08:00 67 05/04/20 07:53 36.9 C 78 18 113/76 94 Laboratory Results Labs reviewed PG Care Time/CCT Total # of Minutes Spent Total Time Spent with Patient: Total time spent is greater than 50% in coordination of care (as documented) at patient's floor/unit and/or counseling patient: Coding Level of Care Code 71041 Subseq Hosp Care Lvl 3 Diagnoses Toxic encephalopathy G92 Chronic diastolic congestive heart failure I50.32 CAD (coronary artery disease) I25.10 Hypertension I10 Atrial fibrillation I48.91 Atrial fibrillation type: unspecified Hyperlipidemia E78.5 Venous insufficiency of both lower extremities I87.2 COPD (chronic obstructive pulmonary disease) J44.9 Spinal stenosis M48.00 Hypothyroidism E03.9 Hypothyroidism type: unspecified Secondary hyperparathyroidism N25.81 Diabetes mellitus, type II E11.9 Diabetic peripheral neuropathy E11.42 Chronic kidney disease (CKD) N18.9 Depression with anxiety F41.8 GERD (gastroesophageal reflux disease) K21.9 Esophagitis presence: esophagitis presence not specified Obstructive sleep apnea G47.33 Elevated troponin R77.8 Anemia D64.9 Anemia type: unspecified type History of gout Z87.39 Asthma J45.909 DVT prophylaxis Z29.9 (1) Atrial fibrillation Atrial fibrillation type: unspecified Qualified Code(s): I48.91 - Unspecified atrial fibrillation (2) Hypothyroidism Hypothyroidism type: unspecified Qualified Code(s): E03.9 - Hypothyroidism, unspecified (3) GERD (gastroesophageal reflux disease) Esophagitis presence: esophagitis presence not specified Qualified Code(s): K21.9 - Gastro-esophageal reflux disease without esophagitis (4) Anemia Anemia type: unspecified type Qualified Code(s): D64.9 - Anemia, unspecified
[2020-05-04] MEDS ORDERED: TAPENTADOL HCL 50 MG TAB PO PRN (18:35)
[2020-05-04] MEDS: ATORVASTATIN 20 MG TAB PO SCH (20:29)
[2020-05-04] MEDS: INSULIN GLARGINE SOLOSTAR 100 UNITS/ML 3 ML PEN SQ SCH (20:36)
[2020-05-05] MEDS: LEVOTHYROXINE SODIUM 50 MCG TABLET PO SCH (05:50)
[2020-05-05 06:29] LABS: Hematocrit (blood only) 30.5 % (37-47); Hemoglobin 9.3 g/dL (12.0-16.0); Mean Corpuscular Hemoglobin 32.4 pg (25-34); Mean Corpuscular Hgb Conc 30.5 g/dL (32-36); Mean Corpuscular Volume 106.3 fL (80-100); Mean Platelet Volume 11.5 fL (7.4-10.4); Platelet Count 218 K/uL (130-400); RDW Coefficient of Variation 17.7 % (11.5-14.5); RDW Standard Deviation 67.9 fL (36.4-46.3); Red Blood Count 2.87 M/uL (4.2-5.4); White Blood Count 5.57 K/uL (4.8-10.8)
[2020-05-05 07:01] LABS: BUN Creatinine Ratio 18.8 (10-20); Calcium 8.6 mg/dl (8.5-10.1); Creatinine Clr Calc Pharmacy 22.5 ml/min; Est GFR (African American) 31.1; Est GFR (Non-African American) 26.8; Potassium 3.6 mmol/L (3.5-5.1)
[2020-05-05 07:04] LABS: Albumin Globulin Ratio 0.9 (0.9-2); Bilirubin,Total 1.1 mg/dl (0.2-1); Globulin 3.2 gm/dl (2.5-4.0); Total Protein 6.2 gm/dl (6.4-8.2)
[2020-05-05] MEDS: MAGNESIUM OXIDE 400 MG TAB PO SCH (08:55)
[2020-05-05] MEDS: PANTOprazole 40 MG TAB PO SCH (08:55)
[2020-05-05] MEDS: GABAPENTIN 800 MG TAB PO SCH (08:55)
[2020-05-05] MEDS: allopurinoL 300 MG TAB PO SCH (08:55)
[2020-05-05] MEDS: CLOPIDOGREL BISULFATE 75 MG TAB PO SCH (08:55)
[2020-05-05] MEDS: DOCUSATE SODIUM 100 MG CAP PO SCH (08:55)
[2020-05-05] MEDS: ISOSORBIDE MONO EXTENDED REL 30 MG TABCR PO SCH (08:55)
[2020-05-05] MEDS: POTASSIUM CHLORIDE CRTAB 20 MEQ TABCR PO SCH (08:56)
[2020-05-05] MEDS: DICLOFENAC SOD 1% GEL 100 GM TUBE EXT SCH (08:56)
[2020-05-05] MEDS: DULoxetine HCL 60 MG CAP PO SCH (08:56)
[2020-05-05] MEDS: APIXABAN 2.5 MG TAB PO SCH (08:56)
[2020-05-05] MEDS: METOPROLOL SUCC 50MG EXT REL TAB PO SCH (08:56)
[2020-05-05] MEDS: DIGOXIN 0.125 MG TAB PO SCH (08:56)
[2020-05-05] MEDS: INSULIN ASPART 100 UNITS/ML 3 ML PEN SC SCH ×2 (09:03→11:53)
[2020-05-05] MEDS ORDERED: FUROSEMIDE 80 MG in SYRINGE 0 ML IV ONE (10:15)
--- NOTE | 2020-05-05 12:04 | Discharge Summary ---
Date of Service May 05, 2020 Admission HPI Per Admitting Provider This is an 85-year-old female with PMHx of CAD status post stenting to LAD, history of NSTEMI, A. fib on Eliquis, chronic diastolic CHF, HTN, HLD, DM type II, peripheral neuropathy, CKD stage III, BETHANY, asthma, COPD, spinal stenosis on chronic narcotics, depression with anxiety, venous insufficiency, hypothyroidism, secondary hyperparathyroidism, who presents with worsening bilateral leg edema, mild confusion and visual hallucinations. 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 She reports increasing her Lasix to 120 mg in the morning for few days, compared to typically taking 40 mg daily. She did not notice an improvement in reduce swelling, and therefore presented to the ER. Her baseline weight is between 160 to 165 pounds, on Thursday was 169 pounds, she is unsure of her current weight today. She admits to having multiple frequent falls within the past 3 days due to increased fatigue and weakness. Patient uses a cane at baseline, but feels that her knees buckle, and that she is having some twitching in her arms and her body that she cannot control. These are not mechanical falls where she is tripping over something, and patient denies having any syncopal-like episodes or any injury, and denies hitting her head on all occasions. She has some mild bruising over her lower legs, but no other open areas or abrasions. She reports having chronic spinal stenosis causing back pain which was treated previously with spinal injections, but she is no longer getting these due to being on anticoagulation with cardiac stent, so instead has been using morphine 30 mg daily and Tylenol, gabapentin, nucynta and other things like warm compresses and voltaren gel. Denies any current shortness of breath, chest pain, pressure, palpitations. Of note, her confusion has seemed worse in the past few days with visual hallucinations, earlier today thought that a little white dog with black feet walked into her room in the ER, peed, and then left. She does not typically have any hallucinations, but experienced this before when she was admitted for UTI/bacteremia. Her UA from the CHF clinic from 04/30 did not appear infected. Her son who is present at bedside agrees and supports the history provided by the patient. She is currently in A. fib but is asymptomatic. Pt lives at home with a bottom painter since her 3 years ago. Subjective on day of dc 05/05/20: The patient was seen and examined this morning, doing well, awake, answers all questions appropriately. Her pain is well controlled, is using nucynta and seems to be working well. Readdressed stopping morphine and she is agreeable to this. Pt urinating lots and brief is wet s/p lasix administration this am, will weight her prior to dc. Denies any other acute complaints. Admission Exam Per Admitting Provider General: awake, alert, no apparent distress, lying on her right side during exam, +obese with BMI of 33.8 Head: Normocephalic, atraumatic ENT: PERRL, EOMI, no pharyngeal exudate, mucous membranes dry, upper dentures Chest: On room air, faint inspiratory wheeze, no adventitious breath sounds Cardiac: irregularly irregular, faint systolic ejection murmur, JVD difficult to assess due to body habitus, normal peripheral pulses, good capillary refill Abdominal: NABS x 4 quadrants, soft, nondistended, nontender to palpation, no rebound or guarding Extremities: Normal inspection, 2+ pitting edema BLE, small fluid blister on R foot between first and second toe, no erythema, small areas of developing ecchymosis, calfs nontender to palpation Psych: Normal mood and affect, + admits to visual hallucination with little white dog earlier, not in room presently, denies auditory hallucinations, denies SI/HI. Neuro: AAO x 3, strength intact bilaterally and rated 5/5, slightly weaker in the R leg compared to the leg due to back pain, + asterixis hands bilaterally, no motor deficits, speech is clear, no peripheral sensory deficits Principal Diagnosis Toxic Encephalopathy Chronic diastolic CHF Discharge Exam General: awake, alert, no apparent distress, + obese, BMI 33.0 Head: Normocephalic, atraumatic ENT: PERRL, EOMI, no pharyngeal exudate, mucous membranes moist Chest: Clear to auscultation, on room air, no2 sats 92%, no adventitious breath sounds Cardiac: Regular rate and rhythm, no murmur, no JVD, normal peripheral pulses, good capillary refill Abdominal: NABS x 4 quadrants, soft, nondistended, nontender to palpation, no rebound or guarding Extremities: Normal inspection, no peripheral edema or erythema, calfs nontender to palpation Psych: Normal mood and affect Neuro: AAO x 3, strength intact bilaterally and rated 5/5, no motor deficits, speech is clear, no peripheral sensory deficits Discharge Data Allergies Allergy/AdvReac Type Severity Reaction Status Date / Time shellfish derived Allergy Severe ANAPHYLAXIS Verified 05/03/20 13:19 iodine Allergy Intermediate ANAPHYLAXIS Verified 05/03/20 13:19 lisinopril Allergy Unknown Verified 05/03/20 13:19 oxybutynin [From Ditropan] Allergy Unknown Verified 05/03/20 13:19 sertraline [From Zoloft] Allergy Unknown Verified 05/03/20 13:19 paroxetine AdvReac Unknown GI UPSET Verified 05/03/20 13:19 Consultations 05/03/20 15:48 Consult Case Management - Discharge Planning 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 Most likely secondary to taking a new medication of morphine IR in the setting of chronic kidney disease with toxic metabolites-she just started this a couple weeks ago Morphine has been held and she is significantly improved since Discontinue morphine permanently Restart Nucynta which she was on for years and had no difficulty with and it controlled her pain (2) Chronic diastolic congestive heart failure: -Some mild volume overload consistent with acute on chronic CHF exacerbation on admission - Was recently seen in the CHF clinic and was hypervolemic at that time (04/30) and had increased lasix to 120 mg in am x past 3 days, baseline weight of 160- 165, unsure of current weight. PO lasix not effective in the outpatient setting so will be admitted for aggressive diuresis and lab monitoring. - Continue IV lasix BID, given 80 mg IV prior to dc- on DC given 80 mg po BID - strict I/Os, daily weights ( weight on dc was 75.6 kg, down from 78.5 kg) - fluid restriction of 1500mL daily - BNP elevated [id number] which is actually improved from 2 days prior - Heart failure clinic consultation- follows with Idalmis Rothman as outpatient already, Dr. Roland last saw her earlier this month, follow up arranged prior to dc - Recently had echo conducted as outpatient- 04/14/19 showing EF of 65-70%, mild concentric LVH, mild mitral regurg, mild tricuspid regurg, no WMA. - no need to repeat - Continue potassium supplementation with aggressive diuresis (3) CAD (coronary artery disease): - s/p PCI of the proximal LAD on 12/06/[address] Miller. She denies angina. LV systolic function is normal. In Mar 2018 was admitted in [facility] with A. fib with RVR, elevated troponin and findings consistent with Takotsubo's cardiomyopathy, at that point time her had recently . In December 2018 () was admitted for A. fib with RVR and NSTEMI where she underwent cardiac cath and had URBANO placed in the LAD. Again readmitted in December () with UTI and bacteremia. - Continue Plavix, Eliquis, atorvastatin, metoprolol, and Imdur. - troponin slightly elevated but stable is consistent with myocardial demand ischemia, likely secondary hypervolemia;will monitor BMP and will trend trop. (4) Hypertension: - BP well controlled. Continue current therapy. (5) Atrial fibrillation: - Rate controlled with digoxin and metoprolol, and she is asymptomatic. EKG reviewed - Patient self discontinued her Diltiazem in February. Continue to monitor her rate and can restart if needed. - Eliquis 2.5 mg BID with weight and Cr. clearance (6) Hyperlipidemia: - Statin therapy as above (7) Venous insufficiency of both lower extremities: - Chronic, appears hypervolemia has worsened this - Dopplers are negative for DVT here (8) COPD (chronic obstructive pulmonary disease): - Hx of such, continue inhalers prn, does not follow formally with pulm from EMR eval Not requiring oxygen (9) Spinal stenosis: - Previously evaluated, followed with Dr. Samson, underwent multiple spinal injections for lumbar spinal stenosis/pain, was recommended that she have surgery however patient was reluctant to proceed with that given her advanced age. Has been managing pain with gabapentin, Cymbalta, morphine, Voltaren gel; previously on Nucynta Discontinuing morphine as above and restarting home Nucynta as needed (10) Hypothyroidism: - Continue levothyroxine 50 mcg daily Last TSH 3 months ago was normal (11) Secondary hyperparathyroidism: - Noted, chronic Continue vitamin D3 (12) Diabetes mellitus, type II: - A1C only 5.0% but is also anemic so may be inaccurate - ISS with accuchecks achs for coverage-blood sugars here are well controlled - Continue Lantus 42 U HS and 8 U standing with meals - Takes trulicity weekly as outpt on Tuesdays (13) Diabetic peripheral neuropathy: - Continue gabapentin 800 mg TID, 300 mg HS (14) Chronic kidney disease (CKD): - Follow am labs, Cr 1.93/ BUN 28, appears to be slightly elevated compared to baseline however her labs fluctuate. Likely partially due to increased lasix as an outpatient. -Avoid nephrotoxins -renally dose meds when appropriate -follow BMP (15) Depression with anxiety: - Continue cymbalta for mood, gabapentin likely slightly helping with anxiety and as a mood stabilizer (16) GERD (gastroesophageal reflux disease): - Continue pantoprazole (17) Obstructive sleep apnea: Is on CPAP at home-may bring in own from home (18) Elevated troponin: As noted above, likely myocardial demand ischemia secondary to toxic encephalopathy in the setting of CAD (19) Anemia: Macrocytic anemia Continue follow-up as an outpatient (20) History of gout: Continue home allopurinol (21) Asthma: No acute issues (22) DVT prophylaxis: DVT ppx: - Amparo RAYGOZA, scds CODE: Full Dispo: From home, [facility] with services Total Time Total Time Spent Total Time Spent (In Minutes): 35 min Discharge Plan Discharge Items Patient Disposition: Home - Home Health Services Reason For Visit: CHF EXACERBATION Discharge Diagnosis: Toxic encephalopathy CHF, chronic diastolic Condition on Discharge: Good Activity: Resume your previous activity Lifting: Gradually increase as tolerated Bathing: No limitations Driving/Machine Use: Resume 1 day after discharge Weightbearing: Full weightbearing Weightbearing Comment: Use walker or can to assist with ambulation Non-emergency contact: Primary Care Provider and Vinyl Cutter Call non-emergency contact if: you have any medication questions and your temperature is above 101 Follow-up/Referrals: Nate oRland MD [Physician] - 05/17/20 1:30 pm Domi Wetzel DO [Primary Care Provider] - 05/11/20 1:40 pm Diet: Carb Consistent or DM2 and Heart Healthy Addtl Attending Provider Instructions: You were admitted to [facility] due to confusion and weakness associated with increased falls and diagnosed with toxic encephalopathy secondary to morphine use. During your stay here you were treated with supportive care, medications, and had lasix IV given to you to help remove extra fluid off your body (diuresis), your morphine was stopped as this was the causative issue with your increased confusion and frequent falls. Your pain medication was changed to Nucynta like you had previously tolerated, your pain was controlled and your symptoms improved. Imaging studies which were completed include: CT neck and lumbar spine which did not show any new or acute fractures to cause worsening pain. CT of the head was negative for acute findings after having repetitive falls. Medications: Continue taking you medications as prescribed. Morphine was discontinued. Take Nucynta for spinal stenosis pain. Appointments: Follow up with PCP within 1 week, an appointment has been requested for you. Follow up with Dr. Roland and the heart failure clinic within 2 weeks. Pending Studies at Discharge: No Stand-Alone Forms: My [facility] [employer], Smoking Cessation Medications and DC Order Prescriptions: New Nucynta 50 mg tablet 50 mg PO BID PRN (Reason: pain) Qty: 60 RF: 0 Continued metoprolol succinate 50 mg tablet extended release 24 hr 100 mg PO BID Qty: 360 RF: 3 cholecalciferol (vitamin D3) [Vitamin D3] 25 mcg (1,000 unit) tablet 0 unit PO QAM RF: 0 levothyroxine 50 mcg tablet 50 mcg PO QAM 30 Days Qty: 30 RF: 5 digoxin 125 mcg (0.125 mg) tablet 125 mcg PO QAM Qty: 90 RF: 1 fluticasone propionate 50 mcg/actuation spray,suspension 1 spray intranasal BID PRN (Reason: allergy symptoms) Qty: 16 RF: 1 gabapentin 300 mg capsule 300 mg PO HS PRN (Reason: pain, severe) Qty: 90 RF: 1 clopidogrel [Plavix] 75 mg tablet 75 mg PO DAILY Qty: 90 RF: 1 pantoprazole 40 mg tablet,delayed release (DR/EC) 40 mg PO QAM Qty: 90 RF: 1 Novolog Flexpen U-100 Insulin 100 unit/mL (3 mL) insulin pen 8 - 9 unit subcut TIDM RF: 0 allopurinol 100 mg tablet 300 mg PO QAM Qty: 270 RF: 1 Lantus Solostar U-100 Insulin 100 unit/mL (3 mL) insulin pen 42 unit subcut HS Qty: 15 RF: 4 diclofenac sodium [Voltaren] 1 % gel 2 g TOPICAL HS PRN (Reason: Pain) Qty: 100 RF: 3 Ozempic 1 mg/dose (2 mg/1.5 mL) pen injector 0.25 mg subcut .weekly Qty: 1.5 RF: 0 gabapentin 800 mg tablet 800 mg PO TID 90 Days Qty: 270 RF: 1 duloxetine 60 mg capsule,delayed release(DR/EC) 60 mg PO QAM Qty: 90 RF: 1 apixaban [Eliquis] 2.5 mg tablet See Rx Instructions .ROUTE .COMPLEX Qty: 60 RF: 0 potassium chloride 20 mEq tablet extended release 20 meq PO BID RF: 0 lidocaine 4 % gel 1 appln TOP TID PRN (Reason: right lower leg pain) Qty: 30 RF: 0 isosorbide mononitrate 30 mg tablet extended release 24 hr 30 mg PO QAM Qty: 90 RF: 1 magnesium oxide 400 mg magnesium tablet 400 mg PO BID RF: 0 albuterol sulfate [ProAir HFA] 90 mcg/actuation HFA aerosol inhaler 1 - 2 puffs INH Q4H PRN (Reason: shortness of breath or wheezing) Qty: 6.7 RF: 3 PreserVision AREDS-2 [id number]-mg Capsule 0 tab PO BID RF: 0 atorvastatin 20 mg tablet 0 mg PO QPM RF: 0 Changed furosemide 40 mg tablet 80 mg PO BID Qty: 270 RF: 1 Discontinued morphine 15 mg tablet 15 mg PO BID PRN (Reason: Pain) RF: 0 Discharge Orders: Discharge Order (Routine); Ordered 05/05/20 Ordered By: Iona Jones Admission Data Admit Date/Time: 05/03/20 14:20 Attending Provider: Roz Spicer Admit Provider: Dm Almaraz Primary Care Provider: Domi Wetzel Other Providers: Madelaine Rothman Home [facility] Other Interventions: Discharge Summary Assessment (RN) Last Done: 05/05/20 12:08 Coding Level of Care Code D/C Day Management >30 mins Diagnoses Toxic encephalopathy G92 Chronic diastolic congestive heart failure I50.32 CAD (coronary artery disease) I25.10 Hypertension I10 Atrial fibrillation I48.91 Atrial fibrillation type: unspecified Hyperlipidemia E78.5 Venous insufficiency of both lower extremities I87.2 COPD (chronic obstructive pulmonary disease) J44.9 Spinal stenosis M48.00 Hypothyroidism E03.9 Hypothyroidism type: unspecified Secondary hyperparathyroidism N25.81 Diabetes mellitus, type II E11.9 Diabetic peripheral neuropathy E11.42 Chronic kidney disease (CKD) N18.9 Depression with anxiety F41.8 GERD (gastroesophageal reflux disease) K21.9 Esophagitis presence: esophagitis presence not specified Obstructive sleep apnea G47.33 Elevated troponin R77.8 Anemia D64.9 Anemia type: unspecified type History of gout Z87.39 Asthma J45.909 DVT prophylaxis Z29.9
== END 2020-05-05 13:54 | disposition home health service (06) ==
LOC: ED 11:10 → INTOOBSV 14:20 → SUATTDRO 14:20 → 2S 14:20

== ENCOUNTER 2020-07-05 12:23 | Inpatient (IN) ==
[2020-07-05] MEDS ORDERED: DEXTROSE 50% 50 ML SYRINGE IV ONE ×2 (12:38→12:39)
[2020-07-05 13:01] LABS: Basophils # (auto) 0.02 K/uL (0-0.2); Basophils % (auto) 0.2 %; Eosinophils # (auto) 0.19 K/uL (0-0.5); Eosinophils % (auto) 1.7 %; Hematocrit (blood only) 32.5 % (37-47); Hemoglobin 10.8 g/dL (12.0-16.0); Immature Granulocytes # (auto) 0.05 K/uL (0.00-0.02); Immature Granulocytes % (auto) 0.5 %; Lymphocytes # (auto) 0.74 K/uL (1.2-3.4); Lymphocytes % (auto) 6.8 %; Mean Corpuscular Hemoglobin 33.9 pg (25-34); Mean Corpuscular Hgb Conc 33.2 g/dL (32-36); Mean Corpuscular Volume 101.9 fL (80-100); Mean Platelet Volume 12.8 fL (7.4-10.4); Monocytes # (auto) 0.82 K/uL (0.11-0.59); Monocytes % (auto) 7.5 %; Neutrophils # (auto) 9.09 K/uL (1.4-6.5); Neutrophils % (auto) 83.3 %; Nucleated RBC # (auto) 0.05 K/uL (0-0); Nucleated RBC % (auto) 0.4 %; Platelet Count 343 K/uL (130-400); RDW Coefficient of Variation 19.9 % (11.5-14.5); RDW Standard Deviation 68.3 fL (36.4-46.3); Red Blood Count 3.19 M/uL (4.2-5.4); White Blood Count 10.91 K/uL (4.8-10.8)
--- NOTE | 2020-07-05 13:11 | CT Scan Report ---
CT head/brain wo con CLINICAL HISTORY: 85 years-old Female with fall. Acute head and neck trauma status post fall TECHNIQUE: Multiple axial CT images of the head were obtained without contrast. A dose lowering tech nique was utilized adhering to the principles of ALARA. COMPARISON: Head CT 05/03/2020 FINDINGS: No acute intracranial hemorrhage, midline shift, intracranial mass, hydrocephalus, territorial ischem ia or abnormal extra-axial collection. Age-related involutional changes with chronic microvascular is chemic disease. 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 The calvarium is intact. Prior bilateral lens repair. The paranasal sinuses, mastoid air cells, and m iddle ear cavities are clear. IMPRESSION: No acute intracranial abnormality. ACT 112: Negative or not required by law. The above report was generated using voice recognition software. It may contain grammatical, syntax o r spelling errors. Electronically signed by: Manuel Vargas M.D. 07/05/2020 1:09 PM
[2020-07-05 13:16] LABS: INR 1.2 (0.9-1.1); Partial Thromboplastin Ratio 1.1; Partial Thromboplastin Time 28.8 Seconds (21.0-31.0); Prothrombin Time 12.4 Seconds (9.0-12.0)
--- NOTE | 2020-07-05 13:18 | CT Scan Report ---
CT cervical spine wo con CT DOSE: 1427.87 mGy.cm CLINICAL HISTORY: 85 years-old Female with fall. Acute head and neck trauma status post fall COMPARISON: Head CT of same day, CT soft tissue neck 06/26/2020 TECHNIQUE: Multiple axial CT images of the cervical spine were obtained without contrast. A dose low ering technique was utilized adhering to the principles of ALARA. FINDINGS: Demineralized appearance the bones. Moderate intervertebral disc space narrowing at C3-C4 t hrough C6-C7. Mild to moderate facet arthrosis with moderate multilevel spondylitic spurring and post erior disc osteophyte complex formations. There is mild levoscoliosis. No acute fracture or subluxati on. Multilevel neural foraminal narrowing. Mild groundglass densities of the lung apices with mosaic attenuation, possibly reflective of air tra pping. No prevertebral edema. Calcified plaque of the carotid bulbs. IMPRESSION: No acute fracture or subluxation. ACT 112: Negative or not required by law. The above report was generated using voice recognition software. It may contain grammatical, syntax o r spelling errors. Electronically signed by: Manuel Vargas M.D. 07/05/2020 1:16 PM
--- NOTE | 2020-07-05 13:19 | CT Scan Report ---
CT SCAN OF THE ABDOMEN AND PELVIS WITHOUT IV CONTRAST CLINICAL HISTORY: Fall. COMPARISON STUDY: Abdominal CT dated 12/23/2018. TECHNIQUE: CT scan of the abdomen and pelvis is performed from the lung bases to the proximal femora. Images are reviewed in the axial, sagittal, and coronal planes. IV contrast was not administered for this examination. Note that the examination was performed in significantly suboptimal fashion withou t IV contrast. There is also motion artifact, and streak artifact from the arms which could not be el evated above the abdomen. A dose lowering technique was utilized adhering to the principles of ALARA. FINDINGS: Lung bases: The heart is mildly enlarged and without pericardial effusion. The coronary arteries and mitral annulus are densely calcified. There are small to moderate pleural effusions with bibasilar co nsolidation. There is no basilar pneumothorax. Liver: The unenhanced liver is normal in size, contour, and attenuation. There is no intrahepatic diana iary ductal dilatation. Gallbladder: Unremarkable. Spleen: Normal in size and attenuation. Pancreas: The unenhanced pancreas is moderately atrophic and grossly unremarkable. Adrenal glands: Unremarkable. Kidneys: The unenhanced kidneys are atrophic and without hydronephrosis. There are no renal calculi i dentified. There is no evidence of contour deforming renal mass lesion. Abdominal vasculature: The abdominal aorta is normal in course and caliber noting moderate to advance d atherosclerotic calcification. Bowel: There is no bowel obstruction. The appendix is well-visualized and normal. Peritoneum: There is no intraperitoneal free air or abdominal ascites. Lymphadenopathy: None. Pelvic viscera: The bladder is distended but otherwise normal in appearance. The uterus is surgically absent. No adnexal lesion is seen. Skeletal structures: The skeletal structures are osteopenic. There is a mild chronic superior endplat e compression deformity of L1. Spondylotic changes noted throughout the lumbar spine. The lumbosacral spine, bony pelvis, and proximal femora otherwise appear intact. No lytic or blastic lesions are see n. Soft tissues: A sacral stimulator device is present in the right gluteal soft tissues. Soft tissue co ntusion is suggested in the right flank. IMPRESSION: 1. Suboptimal examination without IV contrast. There is also streak and motion artifact. 2. There is no evidence of solid organ injury in the abdomen or pelvis on this unenhanced examination . 3. Small to moderate pleural effusions with bibasilar consolidation. This likely represents atelectas is and clinical correlation will be required. 4. Soft tissue contusion is noted in the right flank. 5. Additional findings as above. ACT 112: Negative or not required by law. Electronically signed by: Jorge Cornejo M.D. 07/05/2020 1:17 PM
[2020-07-05 13:24] LABS: Alanine Aminotransferase 29 U/L (12-78); Albumin Level 4.3 gm/dl (3.4-5.0); Aspartate Aminotransferase 44 U/L (15-37); BUN Creatinine Ratio 18.3 (10-20); Bilirubin Direct 0.6 mg/dl (0-0.2); Bilirubin,Total 5.6 mg/dl (0.2-1); Blood Urea Nitrogen 27 mg/dl (7-18); Calcium 9.4 mg/dl (8.5-10.1); Carbon Dioxide 32 mmol/L (21-32); Chloride 102 mmol/L (98-107); Est GFR (African American) 37.6; Est GFR (Non-African American) 32.4; Glucose 42 mg/dl (70-99); Lipase 49 U/L (73-393); Magnesium 2.3 mg/dl (1.8-2.4); Potassium 2.8 mmol/L (3.5-5.1); Sodium 140 mmol/L (136-145); Total Protein 8.5 gm/dl (6.4-8.2)
[2020-07-05 13:25] LABS: Alkaline Phosphatase 148 U/L (45-117); NT Pro B Type Natriuretic Pept 10075 pg/ml (0-1800); Troponin I < 0.015 ng/ml (0-0.045)
[2020-07-05 13:31] LABS: iSTAT Creatinine 1.4 mg/dl (0.6-1.3); iSTAT Hemoglobin 9.5 g/dl (12.0-16.0); iSTAT Ionized Calcium 1.02 mmol/l (1.12-1.32); iSTAT Potassium 3.9 mmol/L (3.3-5.0)
[2020-07-05 13:39] LABS: HCO3 VBG 33 mmol/L; PCO2 VBG 52 mmHg (38-50); PO2 VBG 24 mmHg; pH VBG 7.43 (7.36-7.41)
[2020-07-05 13:41] LABS: Oxygen Saturation VBG < 60.0 %
[2020-07-05] MEDS ORDERED: POTASSIUM CHLORIDE / WTR 10 MEQ/100 ML PLCT IV SCH (13:45)
--- NOTE | 2020-07-05 13:46 | XRay Report ---
SINGLE VIEW CHEST CLINICAL HISTORY: Fall. FINDINGS: An AP, portable, upright chest radiograph is compared to chest x-ray and chest CT dated 06/05. The heart is enlarged. The pulmonary vasculature is noncongested. Chronic interstitial thicke ashwin is similar to previous. The lungs and pleural spaces are clear. No pneumothorax is seen. The ske letal structures are osteopenic. The bony thorax is grossly intact. IMPRESSION: Cardiomegaly with no active disease in the chest. ACT 112: Negative or not required by law. Electronically signed by: Jorge Cornejo M.D. 07/05/2020 1:45 PM
[2020-07-05] MEDS ORDERED: POTASSIUM CHLORIDE 10 MEQ TABCR PO STA (13:52)
--- NOTE | 2020-07-05 13:52 | XRay Report ---
XR pelvis 1-2V routine HISTORY: 85 years-old Female fall acute pelvic pain status post fall COMPARISON: CT abdomen and pelvis of same day TECHNIQUE: Supine AP view of the pelvis FINDINGS: Moderate osteophyte is of the acetabular joints. No acute fracture, dislocation or avascular necrosis . Pelvic basin phlebolith. A stimulator device overlies the right flank with single lead overlying th e left mid to inferior sacrum. IMPRESSION: No acute fracture. ACT 112: Negative or not required by law. The above report was generated using voice recognition software. It may contain grammatical, syntax o r spelling errors. Electronically signed by: Manuel Vargas M.D. 07/05/2020 1:51 PM
[2020-07-05] MEDS ORDERED: POTASSIUM CHLORIDE 10 MEQ TABCR PO ONE (14:04)
[2020-07-05 14:20] LABS: Appearance Urine Clear (Clear); Bacteria Urine Automated Negative (Negative); Bilirubin Urine Negative (Negative); Blood Urine 1+ (Negative); Cast Urine Automated 0 /lpf (0-5); Color Urine Yellow; Epithelial Cell Urine Auto 0-5 /lpf (0-5); Glucose Urine UA Trace (Negative); Ketones Urine Negative (Negative); Leukocyte Esterase Urine Negative (Negative); Nitrite Urine Negative (Negative); Protein Urine 2+ (Negative); RBC Urine Automated 0-4 /hpf (0-4); Urobilinogen Urine Negative (Negative)
--- NOTE | 2020-07-05 14:32 | History & Physical Report ---
Date of Service July 05, 2020 Assessment & Plan (1) Acute diastolic heart failure: Evidenced by increased BNP. Possible diagnosis. Admitted for same in April with some improvement with diuresis Will avoid lasix pending normalization of potassium since patient is not significantly short of breath. Repeat K Q6H and will start lasix in AM if normalizes. Low Na, heart healthy, fluid restricted diet (2) Hyperbilirubinemia: Suspect most likely secondary to her ongoing hemolytic anemia. Note from heme/onc in May mentions diagnosis of this but I and the patient are unclear of any more definitive diagnosis - will get LDH with AM labs and consult hematology. Hypervolemia possible causing some liver congestion causing rise but considered less likely given isolated rise in Bilirubin No excessive acetaminophen use No obstructive cause seen on CT (3) Altered mental status: Multiple possible etiologies. We will hold her usual Nucynta ?Hypoglycemia secondary to insulin ?Hyperbilirubinemia (4) Hypokalemia: ?Secondary to Lasix use. CMP every 6 hourly Unable to tolerate IV replacement in the ER. Increase potassium supplementation to 40 meq BID (5) Obstructive sleep apnea: CPAP HS (6) Atrial fibrillation: Continue anticoagulation with apixaban 2.5 mg p.o. twice daily Rate control with digoxin 125 mcg p.o. daily (7) Anemia: Consult hematology as above (8) Diabetes mellitus, type II: HbA1c 5.0 in April 2020, repeat with a.m. labs. Suggests overtreatment with insulin. We will reduce her Lantus from 42 units to 30 units at bedtime NovoLog ACHS: Goal BSG Range: Low 110 mg/dL, High 140 mg/dL Correction Factor: 20 mg/dL/unit INS:CHO Ratio: 1unit per 6 gms CHO consumed BSGs ACHS if eating, q6h if npo (9) COPD (chronic obstructive pulmonary disease): No acute exacerbation suspected Albuterol as needed (10) GERD (gastroesophageal reflux disease): Continue pantoprazole 40 mg p.o. every morning (11) Depression with anxiety: Continue duloxetine delayed release 60 mg p.o. every morning (12) Spinal stenosis: Continue her usual gabapentin regimen Hold Nucynta currently due to acute confusion (13) Hypothyroidism: TSH 0.59 Continue levothyroxine 50 mcg p.o. every morning (14) DVT prophylaxis: Apixaban as above Admission and Anticipated Discharge Date Admission Date: July 05, 2020 History of Present Illness Chief Complaint: Jaundice Primary Care Provider: Domi Wetzel DO Tiffanie Porter is an 85 yo female who presents to the ER on advice of her PCP due to jaundice. The patient does note increased confusion over the past 2 days. She takes Nucynta as needed for back pain and does note she took this yesterday and today and her agrees that her increased confusion may be due to this however history taking is not clear but this has been a concern in the past. She denies any worsening shortness of breath, weight gain, leg swelling (although notes her legs feel tighter and more painful), presyncope, syncope, orthopnea or PND. She was admitted from May 03-2020 due to similar symptoms and diagnosed with toxic encephalopathy and chronic diastolic congestive heart failure. Her bilirubin however on medication was not elevated. In the ER bilirubin 5.6 from 1.2 on June 26. No obstructive cause was seen on CT. She denies any abdominal pain, nausea, vomiting, fever, chills. She denies any alcohol use. She reports taking acetaminophen 1300 mg p.o. at bedtime but none during the daytime. Of note she does have a history of unspecified hemolytic anemia. Last seen by hematology in May with ongoing workup recommended at that time - I am unclear whether this was performed or if a hemolytic anemia was further clarified. Allergies Allergy/AdvReac Type Severity Reaction Status Date / Time shellfish derived Allergy Severe ANAPHYLAXIS Verified 07/05/20 14:11 iodine Allergy Intermediate ANAPHYLAXIS Verified 07/05/20 14:11 lisinopril Allergy Unknown Verified 07/05/20 14:11 oxybutynin [From Ditropan] Allergy Unknown Verified 07/05/20 14:11 sertraline [From Zoloft] Allergy Unknown Verified 07/05/20 14:11 paroxetine AdvReac Unknown GI UPSET Verified 07/05/20 14:11 Home Medications Medication Instructions Recorded Confirmed Type lidocaine 4 % topical gel 1 appln TOP TID PRN #30 gm 01/14/19 07/05/20 Rx albuterol sulfate 90 mcg/actuation 1 - 2 puffs INH Q4H PRN #6.7 gm 04/26/19 07/05/20 Rx aerosol inhaler metoprolol succinate 50 mg 100 mg PO BID #360 tab 11/04/19 07/05/20 Rx tablet,extended release 24 hr levothyroxine 50 mcg tablet 50 mcg PO QAM 30 Days #30 tab 01/03/20 07/05/20 Rx digoxin 125 mcg (0.125 mg) tablet 125 mcg PO QAM #90 tab 01/09/20 07/05/20 Rx fluticasone propionate 50 1 spray INTRANASAL BID PRN #16 g 01/11/20 07/05/20 Rx mcg/actuation nasal spray,suspension gabapentin 300 mg capsule 300 mg PO HS PRN #90 cap 01/24/20 07/05/20 Rx clopidogrel 75 mg tablet 75 mg PO DAILY #90 tab 01/25/20 07/05/20 Rx pantoprazole 40 mg tablet,delayed 40 mg PO QAM #90 tab 02/01/20 07/05/20 Rx release allopurinol 100 mg tablet 300 mg PO QAM #270 tab 02/15/20 07/05/20 Rx diclofenac sodium 1 % topical gel 2 g TOPICAL HS PRN #100 gm 02/23/20 07/05/20 Rx gabapentin 800 mg tablet 800 mg PO TID 90 Days #270 tab 03/21/20 07/05/20 Rx duloxetine 60 mg capsule,delayed 60 mg PO QAM #90 cap 03/27/20 07/05/20 Rx release isosorbide mononitrate 30 mg 30 mg PO QAM #90 tab 04/30/20 07/05/20 Rx tablet,extended release 24 hr potassium chloride 20 mEq 20 meq PO BID tab 05/01/20 07/05/20 History tablet,extended release furosemide 80 mg PO BID #270 tab 05/05/20 07/05/20 Rx acetaminophen 650 mg 1,300 mg PO HS tab 05/11/20 07/05/20 History tablet,extended release atorvastatin 20 mg tablet 20 mg PO QPM tab 05/11/20 07/05/20 History cholecalciferol (vitamin D3) 25 2,000 unit PO QAM tab 05/11/20 07/05/20 History mcg (1,000 unit) tablet insulin aspart U-100 100 unit/mL 7 - 10 unit SUBCUT TIDM #45 ml 06/01/20 04/04/26 Rx (3 mL) subcutaneous pen insulin glargine 100 unit/mL (3 42 unit SUBCUT HS #15 ml 06/11/20 07/05/20 Rx mL) subcutaneous pen Eliquis 2.5 mg PO BID 06/26/20 07/05/20 History levetiracetam 250 mg tablet 250 mg PO HS #30 tab 06/26/20 07/05/20 Rx tapentadol [Nucynta] 100 mg PO BID PRN 06/26/20 07/05/20 History magnesium oxide 400 mg PO BID #90 tab 07/03/20 07/05/20 Rx Past Med/Surg History Medical History (Updated 07/06/20 @ 10:50 by Dm Tsang MD) Anemia Chronic macrocytic Asthma Atrial fibrillation CAD (coronary artery disease) Cerebrovascular disease Chronic diastolic congestive heart failure Chronic kidney disease (CKD) Stage III, baseline Cr 1.3-1.5mg/dL. Complicated with normocytic anemia and secondary hyperparathyroidism. Followed by nephrology. COPD (chronic obstructive pulmonary disease) Diabetes mellitus, type II Controlled, managed without medication. HbA1c 7.3% (02/21). Diabetic peripheral neuropathy Elevated troponin Generalized osteoarthritis CT scan lumbar spine (03/16) severe multilevel spinal stenosis. Cannot perform MRI due to bladder implant. Followed by pain management. Epidural steroid injections with improvement of pain. Evaluated by ortho, decided against surgery. Managed with gabapentin 300mg TID + APAP PRN + tapentadol 50mg BID PRN GERD (gastroesophageal reflux disease) History of gout Managed with allopruinol daily. No recent gouty attacks. Uric acid suppressed 3.4 mg/dl (12/22) History of non-ST elevation myocardial infarction (NSTEMI) x2, 2017 and 2018 Hyperlipidemia Secondary prevention with moderate intensity statin (atorvastatin 20mg daily) Hypertension Managed with furosemide + metoprolol Hypothyroidism Managed with levothyroxine supplementation Lichen planus Macular degeneration Macular degeneration Mitral regurgitation Neurologic gait dysfunction Obstructive sleep apnea Long standing. Managed with CPAP nightly. CPAP titration polysomnography (07/14). Secondary hyperparathyroidism 2/2 CKD stage III. Managed with calcitriol. Followed by nephrology Sensorineural hearing loss (SNHL) of both ears Spinal stenosis Venous insufficiency of both lower extremities Venous stasis ulcers of both lower extremities Vitamin D deficiency Weakness Surgical History H/O colonoscopy History of repair of rectocele S/P breast biopsy S/P section S/P cholecystectomy S/P hysterectomy S/P implantation of urinary electronic stimulator device Family History Father , Age 64 No problems noted. Mother , Age 61 No problems noted. 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 [employer] Required: No Beliefs That Will Affect Care: None marital status: Life Partner Current Living Situation: Spouse current occupational status: retired Feels Safe at Home: Yes Safety Concerns: Feels Safe At This Time Childhood Exposure to Second-Hand Smoke: No Dental Care, Regularly: Yes Physical Activity Frequency: 1-2 Times per Week Physical Activity Frequency Comment: physical therapy Seatbelt Use: always Sunscreen Use: Yes Assistive Devices: Walker Review of Systems Review of Systems: All systems reviewed & are unremarkable except as noted in HPI & below Physical Exam Constitutional: well developed and well nourished; no acute distress Eyes: PERRL, conjunctivae normal, anicteric sclerae ENMT: external ear and nose normal, oropharynx normal Respiratory: normal respiratory effort Auscultation: + diminished lung sounds (Bibasal); no crackles and no wheezes Cardiovascular: RRR, no murmur, no edema Gastrointestinal (Abdomen): normal bowel sounds, soft, nontender, no hepatosplenomegaly Musculoskeletal: no cyanosis or clubbing, extremities motor strength 5/5 Skin: no rashes, warm and dry Neurologic: moves all extremities and awake; no focal motor deficits and not confused Speech / Cognition: normal speech Motor/Sensory: no tremor and no pronator drift Psychiatric: A+Ox3, euthymic affect Results & Data Results & Data ([facility]) Vital Signs (Past 12 Hours) Vital Signs Temp Pulse Pulse Resp BP BP Pulse Ox 07/05/20 14:20 74 17 95 07/05/20 14:17 71 14 155/60 H 96 07/05/20 14:10 65 12 92 07/05/20 14:01 60 17 145/71 H 92 07/05/20 14:00 63 16 93 04/01/21 13:50 66 15 93 07/05/20 13:46 78 16 96/53 L 94 07/05/20 13:40 64 15 97 07/05/20 13:31 69 14 161/59 H 94 07/05/20 13:30 66 20 07/05/20 13:20 68 24 94 07/05/20 13:17 71 16 168/82 H 95 07/05/20 13:15 73 12 07/05/20 12:47 199/107 H 07/05/20 12:39 87 20 96 07/05/20 12:24 36.3 C L 83 18 205/87 H 86 L 07/05/20 12:23 85 20 199/[address] head/brain wo con IMPRESSION: No acute intracranial abnormality. CT cervical spine wo con IMPRESSION: No acute fracture or subluxation. SINGLE VIEW CHEST IMPRESSION: Cardiomegaly with no active disease in the chest. Medications Administered ER medications given: Dextrose 50% 50 mL IV Potassium chloride 40 M EQ p.o Potassium chloride 10meq IV x2 (unable to tolerate therefore canceled) Acetaminophen 1 g p.o. ECG Indication: SOB/dyspnea Rate (beats per minute): 78 Rhythm: atrial fibrillation Findings: + ST depression (Anterior) and + T-wave inversion (Anterolateral) Comparison ECG Date: from (May 03, 2020) Change: the following changes noted (Borderline criteria for anterior infarct no longer present, ST and T wave changes as above are new) Code Status & VTE Plan Code Status Full VTE Prophylaxis Plan VTE Prophylaxis will be ordered: Yes PG Care Time/CCT Total # of Minutes Spent Total Time Spent with Patient: Total time spent is greater than 50% in coordination of care (as documented) at patient's floor/unit and/or counseling patient: Coding Level of Care Code 94329 Initial Inpt Care Lvl 3 Diagnoses Acute diastolic heart failure I50.31 Hyperbilirubinemia E80.6 Altered mental status R41.82 Hypokalemia E87.6 Obstructive sleep apnea G47.33 Atrial fibrillation I48.91 Atrial fibrillation type: unspecified Anemia D64.9 Anemia type: unspecified type Diabetes mellitus, type II E11.9 COPD (chronic obstructive pulmonary disease) J44.9 GERD (gastroesophageal reflux disease) K21.9 Esophagitis presence: esophagitis presence not specified Depression with anxiety F41.8 Spinal stenosis M48.00 Hypothyroidism E03.9 Hypothyroidism type: unspecified DVT prophylaxis Z29.9 (1) Atrial fibrillation Atrial fibrillation type: unspecified Qualified Code(s): I48.91 - Unspecified atrial fibrillation (2) Anemia Anemia type: unspecified type Qualified Code(s): D64.9 - Anemia, unspecified (3) GERD (gastroesophageal reflux disease) Esophagitis presence: esophagitis presence not specified Qualified Code(s): K21.9 - Gastro-esophageal reflux disease without esophagitis (4) Hypothyroidism Hypothyroidism type: unspecified Qualified Code(s): E03.9 - Hypothyroidism, unspecified
[2020-07-05 15:57] LABS: Influenza A virus by PCR Negative (Neg); Influenza B virus by PCR Negative (Neg); RSV by PCR Negative (Neg); SARS CoV2 RNA(COVID-19) InHosp NEGATIVE (Negative)
[2020-07-05] MEDS ORDERED: ACETAMINOPHEN 500 MG TAB PO STA (16:09)
--- NOTE | 2020-07-05 16:36 | Emergency Department Note ---
History of Present Illness General Chief complaint: Illness Stated complaint: TURNING YELLOW & CONFUSED Time Seen by Provider: 07/05/20 12:36 Source: family, EMS and RN notes reviewed History of Present Illness Provider complaint: Altered mental status Onset (ago): day(s) 1 Associated symptoms: + confusion and + weakness 85-year-old female presents emergency department for altered mental status. Patient presents with significant other who states that the patient has been turning yellow and becoming more confused. Patient is a diabetic on insulin. Family reports that the patient fell 2 days ago. Home Medications Medication Instructions Recorded Confirmed Type lidocaine 4 % topical gel 1 appln TOP TID PRN #30 gm 01/14/19 07/05/20 Rx albuterol sulfate 90 mcg/actuation 1 - 2 puffs INH Q4H PRN #6.7 gm 04/26/19 07/05/20 Rx aerosol inhaler metoprolol succinate 50 mg 100 mg PO BID #360 tab 11/04/19 07/05/20 Rx tablet,extended release 24 hr levothyroxine 50 mcg tablet 50 mcg PO QAM 30 Days #30 tab 01/03/20 07/05/20 Rx digoxin 125 mcg (0.125 mg) tablet 125 mcg PO QAM #90 tab 01/09/20 07/05/20 Rx fluticasone propionate 50 1 spray INTRANASAL BID PRN #16 g 01/11/20 07/05/20 Rx mcg/actuation nasal spray,suspension gabapentin 300 mg capsule 300 mg PO HS PRN #90 cap 01/24/20 07/05/20 Rx clopidogrel 75 mg tablet 75 mg PO DAILY #90 tab 01/25/20 07/05/20 Rx pantoprazole 40 mg tablet,delayed 40 mg PO QAM #90 tab 02/01/20 07/05/20 Rx release allopurinol 100 mg tablet 300 mg PO QAM #270 tab 02/15/20 07/05/20 Rx diclofenac sodium 1 % topical gel 2 g TOPICAL HS PRN #100 gm 02/23/20 07/05/20 Rx gabapentin 800 mg tablet 800 mg PO TID 90 Days #270 tab 03/21/20 07/05/20 Rx duloxetine 60 mg capsule,delayed 60 mg PO QAM #90 cap 03/27/20 07/05/20 Rx release isosorbide mononitrate 30 mg 30 mg PO QAM #90 tab 04/30/20 07/05/20 Rx tablet,extended release 24 hr potassium chloride 20 mEq 20 meq PO BID tab 05/01/20 07/05/20 History tablet,extended release furosemide 80 mg PO BID #270 tab 05/05/20 07/05/20 Rx acetaminophen 650 mg 1,300 mg PO HS tab 05/11/20 07/05/20 History tablet,extended release atorvastatin 20 mg tablet 20 mg PO QPM tab 05/11/20 07/05/20 History cholecalciferol (vitamin D3) 25 2,000 unit PO QAM tab 05/11/20 07/05/20 History mcg (1,000 unit) tablet insulin aspart U-100 100 unit/mL 7 - 10 unit SUBCUT TIDM #45 ml 06/01/20 07/05/20 Rx (3 mL) subcutaneous pen insulin glargine 100 unit/mL (3 42 unit SUBCUT HS #15 ml 06/11/20 07/05/20 Rx mL) subcutaneous pen Eliquis 2.5 mg PO BID 06/26/20 07/05/20 History levetiracetam 250 mg tablet 250 mg PO HS #30 tab 06/26/20 07/05/20 Rx tapentadol [Nucynta] 100 mg PO BID PRN 06/26/20 07/05/20 History magnesium oxide 400 mg PO BID #90 tab 07/03/20 07/05/20 Rx Allergies Allergy/AdvReac Type Severity Reaction Status Date / Time shellfish derived Allergy Severe ANAPHYLAXIS Verified 07/05/20 14:11 iodine Allergy Intermediate ANAPHYLAXIS Verified 07/05/20 14:11 lisinopril Allergy Unknown Verified 07/05/20 14:11 oxybutynin [From Ditropan] Allergy Unknown Verified 07/05/20 14:11 sertraline [From Zoloft] Allergy Unknown Verified 07/05/20 14:11 paroxetine AdvReac Unknown GI UPSET Verified 07/05/20 14:11 Past Med/Surg History Medical History (Updated 07/05/20 @ 16:54 by Steve Brar) Anemia Chronic macrocytic Asthma Atrial fibrillation CAD (coronary artery disease) Cerebrovascular disease Chronic diastolic congestive heart failure Chronic kidney disease (CKD) Stage III, baseline Cr 1.3-1.5mg/dL. Complicated with normocytic anemia and secondary hyperparathyroidism. Followed by nephrology. COPD (chronic obstructive pulmonary disease) Diabetes mellitus, type II Controlled, managed without medication. HbA1c 7.3% (02/21). Diabetic peripheral neuropathy Elevated troponin Generalized osteoarthritis CT scan lumbar spine (03/16) severe multilevel spinal stenosis. Cannot perf orm MRI due to bladder implant. Followed by pain management. Epidural steroid injections with improvement of pain. Evaluated by ortho, decided against surgery. Managed with gabapentin 300mg TID + APAP PRN + tapentadol 50mg BID PRN GERD (gastroesophageal reflux disease) History of gout Managed with allopruinol daily. No recent gouty attacks. Uric acid suppressed 3.4 mg/dl (12/22) History of non-ST elevation myocardial infarction (NSTEMI) x2, 2017 and 2018 Hyperlipidemia Secondary prevention with moderate intensity statin (atorvastatin 20mg daily) Hypertension Managed with furosemide + metoprolol Hypothyroidism Managed with levothyroxine supplementation Lichen planus Macular degeneration Macular degeneration Mitral regurgitation Neurologic gait dysfunction Obstructive sleep apnea Long standing. Managed with CPAP nightly. CPAP titration polysomnography (07/14). Secondary hyperparathyroidism 2/2 CKD stage III. Managed with calcitriol. Followed by nephrology Sensorineural hearing loss (SNHL) of both ears Spinal stenosis Venous insufficiency of both lower extremities Venous stasis ulcers of both lower extremities Vitamin D deficiency Weakness Surgical History H/O colonoscopy History of repair of rectocele S/P breast biopsy S/P section S/P cholecystectomy S/P hysterectomy S/P implantation of urinary electronic stimulator device Family History Father , Age 64 No problems noted. Mother , Age 61 No problems noted. Other Coronary heart disease Denies family history of Ovarian cancer Prostate cancer Crohn's disease Breast cancer Lung cancer Colorectal cancer Social History Smoking Status: Never smoker Second Hand Exposure: No; Hx Alcohol Use: No Hx Substance Use: No Preferred Language: Bahraini Communication Ability: Effective Visual Impairment: No Limitations Hearing Ability: Normal Biometrician Required: No Beliefs That Will Affect Care: Anglican marital status: Life Partner Current Living Situation: Spouse current occupational status: retired Feels Safe at Home: Yes Childhood Exposure to Second-Hand Smoke: No Dental Care, Regularly: Yes Physical Activity Frequency: 1-2 Times per Week Physical Activity Frequency Comment: physical therapy Seatbelt Use: always Sunscreen Use: Yes Assistive Devices: Walker Review of Systems Unobtainable due to cognitive status Physical Exam Vital Signs Vital Signs - 24 hr 07/05/20 12:23 07/05/20 12:24 07/05/20 12:39 Temperature 36.3 C L Temperature Source Oral Pulse Rate 83 87 Pulse Rate [Left Finger] 85 Pulse Rate from SpO2 Sensor Pulse Rhythm Regular Pulse Rhythm [Left Finger] Regular Pulse Strength [Left Finger] Normal Respiratory Rate 20 18 20 Respiratory Depth Normal Blood Pressure 205/87 H Blood Pressure [Right Arm] 199/107 H Blood Pressure Mean 126 Blood Pressure Mean [Right Arm] 137 Blood Pressure Position [Right Arm] Lying Pulse Oximetry 96 86 L 96 Oxygen Delivery Method Nasal Cannula Room Air Nasal Cannula Oxygen Flow Rate 2 2 Sepsis Recent Fever Within 48 Hours No Sepsis New/Unexplained Change in Mental Status N/A Sepsis Action Taken by Nursing No Action Required 07/05/20 12:47 07/05/20 13:15 07/05/20 13:17 Temperature Temperature Source Pulse Rate 73 71 Pulse Rate [Left Finger] Pulse Rate from SpO2 Sensor 68 Pulse Rhythm Pulse Rhythm [Left Finger] Pulse Strength [Left Finger] Respiratory Rate 12 16 Respiratory Depth Blood Pressure 199/107 H 168/82 H Blood Pressure [Right Arm] Blood Pressure Mean 137 110 Blood Pressure Mean [Right Arm] Blood Pressure Position [Right Arm] Pulse Oximetry 95 Oxygen Delivery Method Oxygen Flow Rate Sepsis Recent Fever Within 48 Hours Sepsis New/Unexplained Change in Mental Status Sepsis Action Taken by Nursing 07/05/20 13:20 07/05/20 13:30 07/05/20 13:31 Temperature Temperature Source Pulse Rate 68 66 69 Pulse Rate [Left Finger] Pulse Rate from SpO2 Sensor 72 69 Pulse Rhythm Pulse Rhythm [Left Finger] Pulse Strength [Left Finger] Respiratory Rate 24 20 14 Respiratory Depth Blood Pressure 161/59 H Blood Pressure [Right Arm] Blood Pressure Mean 93 Blood Pressure Mean [Right Arm] Blood Pressure Position [Right Arm] Pulse Oximetry 94 94 Oxygen Delivery Method Oxygen Flow Rate Sepsis Recent Fever Within 48 Hours Sepsis New/Unexplained Change in Mental Status Sepsis Action Taken by Nursing 07/05/20 13:40 07/05/20 13:46 07/05/20 13:50 Temperature Temperature Source Pulse Rate 64 78 66 Pulse Rate [Left Finger] Pulse Rate from SpO2 Sensor 67 65 65 Pulse Rhythm Pulse Rhythm [Left Finger] Pulse Strength [Left Finger] Respiratory Rate 15 16 15 Respiratory Depth Blood Pressure 96/53 L Blood Pressure [Right Arm] Blood Pressure Mean 67 Blood Pressure Mean [Right Arm] Blood Pressure Position [Right Arm] Pulse Oximetry 97 94 93 Oxygen Delivery Method Oxygen Flow Rate Sepsis Recent Fever Within 48 Hours Sepsis New/Unexplained Change in Mental Status Sepsis Action Taken by Nursing 07/05/20 14:00 07/05/20 14:01 07/05/20 14:10 Temperature Temperature Source Pulse Rate 63 60 65 Pulse Rate [Left Finger] Pulse Rate from SpO2 Sensor 58 L 67 62 Pulse Rhythm Pulse Rhythm [Left Finger] Pulse Strength [Left Finger] Respiratory Rate 16 17 12 Respiratory Depth Blood Pressure 145/71 H Blood Pressure [Right Arm] Blood Pressure Mean 95 Blood Pressure Mean [Right Arm] Blood Pressure Position [Right Arm] Pulse Oximetry 93 92 92 Oxygen Delivery Method Oxygen Flow Rate Sepsis Recent Fever Within 48 Hours Sepsis New/Unexplained Change in Mental Status Sepsis Action Taken by Nursing 07/05/20 14:17 07/05/20 14:20 07/05/20 14:30 Temperature Temperature Source Pulse Rate 71 74 76 Pulse Rate [Left Finger] Pulse Rate from SpO2 Sensor 68 72 69 Pulse Rhythm Pulse Rhythm [Left Finger] Pulse Strength [Left Finger] Respiratory Rate 14 17 16 Respiratory Depth Blood Pressure 155/60 H Blood Pressure [Right Arm] Blood Pressure Mean 91 Blood Pressure Mean [Right Arm] Blood Pressure Position [Right Arm] Pulse Oximetry 96 95 92 Oxygen Delivery Method Oxygen Flow Rate Sepsis Recent Fever Within 48 Hours Sepsis New/Unexplained Change in Mental Status Sepsis Action Taken by Nursing 07/05/20 14:31 07/05/20 14:40 07/05/20 14:46 Temperature Temperature Source Pulse Rate 80 78 101 H Pulse Rate [Left Finger] Pulse Rate from SpO2 Sensor 79 85 86 Pulse Rhythm Pulse Rhythm [Left Finger] Pulse Strength [Left Finger] Respiratory Rate 14 18 27 H Respiratory Depth Blood Pressure 168/110 H 210/148 H Blood Pressure [Right Arm] Blood Pressure Mean 129 168 Blood Pressure Mean [Right Arm] Blood Pressure Position [Right Arm] Pulse Oximetry 95 92 91 Oxygen Delivery Method Oxygen Flow Rate Sepsis Recent Fever Within 48 Hours Sepsis New/Unexplained Change in Mental Status Sepsis Action Taken by Nursing 07/05/20 14:50 07/05/20 15:00 07/05/20 15:01 Temperature Temperature Source Pulse Rate 76 74 79 Pulse Rate [Left Finger] Pulse Rate from SpO2 Sensor 87 89 82 Pulse Rhythm Pulse Rhythm [Left Finger] Pulse Strength [Left Finger] Respiratory Rate 23 25 H 23 Respiratory Depth Blood Pressure 186/83 H Blood Pressure [Right Arm] Blood Pressure Mean 117 Blood Pressure Mean [Right Arm] Blood Pressure Position [Right Arm] Pulse Oximetry 92 75 L 91 Oxygen Delivery Method Oxygen Flow Rate Sepsis Recent Fever Within 48 Hours Sepsis New/Unexplained Change in Mental Status Sepsis Action Taken by Nursing 07/05/20 15:10 Temperature Temperature Source Pulse Rate 74 Pulse Rate [Left Finger] Pulse Rate from SpO2 Sensor 75 Pulse Rhythm Pulse Rhythm [Left Finger] Pulse Strength [Left Finger] Respiratory Rate 17 Respiratory Depth Blood Pressure Blood Pressure [Right Arm] Blood Pressure Mean Blood Pressure Mean [Right Arm] Blood Pressure Position [Right Arm] Pulse Oximetry 93 Oxygen Delivery Method Oxygen Flow Rate Sepsis Recent Fever Within 48 Hours Sepsis New/Unexplained Change in Mental Status Sepsis Action Taken by Nursing Physical Exam GENERAL: Patient appears lethargic and confused. HENT: Exam performed. -Head: Normocephalic and atraumatic. -Right Ear: External ear normal. No mastoid tenderness. -Left Ear: External ear normal. No mastoid tenderness. -Mouth/Throat: The oropharynx is clear and moist. No trismus in the jaw. No dental abscesses or uvula swelling. No oropharyngeal exudate or tonsillar abscesses. EYES: EOM are normal. Pupils are equal, round, and reactive to light. Right eye exhibits no discharge. Left eye exhibits no discharge. scleral icterus bilateral ly. NECK: Normal range of motion. Neck supple. No JVD present. No spinous process tenderness present. No carotid bruit present. No rigidity. No tracheal deviation and normal range of motion present. No Brudzinski's sign and no Kernig's sign noted. CV: Normal rate, irregular rhythm, normal heart sounds and intact distal pulses. Palpable radial pulses bue. PULM/CHEST: Rhonchi bilaterally and rales at the bases. -Chest Wall: She exhibits no tenderness. ABD: The abdomen is soft. Bowel sounds are normal. She has no distension. No mass is present. There is no tenderness. There is no rebound, no guarding, no Nieto's sign and no tenderness at McBurney's point. Rovsig negative MUSC/SKEL: 2+ pitting edema of the bilateral lower extremities. LYMPH: No cervical adenopathy. SKIN: Patient appears jaundiced Course Course 1236: The patient was evaluated in room A10. A complete history and physical exam was performed Cardiac monitoring: An order was placed for continuous cardiac monitoring. The monitor shows a rate of 80 with atrial fibrilation rhythm On arrival the patient was hypoxic on room air. Patient was placed on 2 L nasal cannula which improved her oxygen saturation. Patient was also found to have a low blood sugar via Accu-Chek. Patient was given 1 amp of D50. EMR reviewed. Patient is on digoxin as well as Eliquis. Patient also has a history of CKD. After receiving the amp of D50 and some p.o. orange juice as well as oxygen via nasal cannula the patient's mental status started to improve. 1350: Vital signs stable on supplemental oxygen via nasal cannula. Patient alert and oriented and tolerating p.o. Labs show a hemoglobin of 9.5. Patient's blood sugar did remain stable after receiving the amp of D50. VBG within normal limits. Potassium 2.8. proBNP is 10,075. Patient's bilirubin is elevated at 5.6, this is elevated from 1.2 on June 26. Imaging shows no acute traumatic injury. Troponin negative. Digoxin level, influenza and Covid screen are negative. [facility]ang [facility] been notified. Dr. Tsang and I discussed the case and we will hold off on Lasix at this time given her low potassium and her not being in respiratory distress on supplemental oxygen via nasal cannula. Patient's potassium repletion was started in the emergency department. Administered Medications Discontinued Medications Acetaminophen (Acetaminophen 500 Mg Tab) 1,000 mg PO NOW STA Stop: 07/05/20 16:10 Last Admin: 07/05/20 16:17 Dose: 1,000 mg Documented by: [id number] Dextrose (Dextrose 50% 50 Ml Syringe) 50 ml IV NOW ONE Stop: 07/05/20 12:39 Last Admin: 07/05/20 12:52 Dose: 50 ml Documented by: [id number] Potassium Chloride (K Zain / Wtr) 10 meq in 100 mls @ 100 mls/hr IV Q1H RODDY Stop: 07/05/20 15:44 Last Infusion: 07/05/20 15:45 Dose: 0 mls/hr Documented by: [id number] Infusion: 07/05/20 14:18 Dose: 100 mls/hr Documented by: [id number] Admin: 07/05/20 14:10 Dose: 100 mls/hr Documented by: [id number] Potassium Chloride (Potassium Chloride 10 Meq Tabcr) 40 meq PO NOW STA Stop: 07/05/20 13:53 Last Admin: 07/05/20 14:11 Dose: 40 meq Documented by: [id number] Critical Care Time Critical Care Time: Yes Total Critical Care Time: 45 I have personally spent greater than 45 minutes of critical care time in the direct management of this patient. This includes bedside care, interpretation of diagnostic studies, and testing, discussion with consultants, patient, and family members, and other required patient management activities. This 45 minutes is in excess of all separately billable procedures. Medical Decision Making Laboratory Data Result diagrams: 07/05/20 12:46 07/05/20 12:46 Lab Results 07/05/20 07/05/20 07/05/20 Range/Units 12:35 12:46 12:46 WBC 10.91 H (4.8-10.8) K/uL RBC 3.19 L (4.2-5.4) M/uL Hgb 10.8 L (12.0-16.0) g/dL POC Hgb (12.0-16.0) g/dl Hct 32.5 L (37-47) % POC Hct (37-47) % MCV 101.9 H (80-100) fL MCH 33.9 (25-34) pg MCHC 33.2 (32-36) g/dL RDW Std Deviation 68.3 H (36.4-46.3) fL RDW Coeff of Talia 19.9 H (11.5-14.5) % Plt Count 343 (130-400) K/uL MPV 12.8 H (7.4-10.4) fL Immature Gran % (Auto) 0.5 % Neut % (Auto) 83.3 % Lymph % (Auto) 6.8 % [place] % (Auto) 7.5 % Eos % (Auto) 1.7 % Baso % (Auto) 0.2 % Neut # (Auto) 9.09 H (1.4-6.5) K/uL Lymph # (Auto) 0.74 L (1.2-3.4) K/uL [place] # (Auto) 0.82 H (0.11-0.59) K/uL Eos # (Auto) 0.19 (0-0.5) K/uL Baso # (Auto) 0.02 (0-0.2) K/uL Immature Gran # (Auto) 0.05 H (0.00-0.02) K/uL Absolute Nucleated RBC 0.05 H (0-0) K/uL Nucleated RBC % (auto) 0.4 % PT (9.0-12.0) Seconds INR (0.9-1.1) APTT (21.0-31.0) Seconds PTT Ratio VBG pH (7.36-7.41) VBG pCO2 (38-50) mmHg VBG pO2 mmHg VBG HCO3 mmol/L VBG O2 Saturation % VBG Base Excess mEq/L Barometric Pressure mm/Hg POC Sodium (135-144) mmol/L Sodium 140 (136-145) mmol/L POC Potassium (3.3-5.0) mmol/L Potassium 2.8 L (3.5-5.1) mmol/L POC Chloride (101-112) mmol/L Chloride 102 (98-107) mmol/L Carbon Dioxide 32 (21-32) mmol/L POC Total CO2 (24-31) mmol/L Anion Gap 6.0 (3-11) POC Anion Gap (16-25) mmol/L POC BUN (7-18) mg/dl BUN 27 H (7-18) mg/dl Creatinine 1.48 H (0.6-1.2) mg/dl POC Creatinine (0.6-1.3) mg/dl Est Cr Clr Drug Dosing Not Reportable Est GFR ( Amer) 37.6 Est GFR (Non-Af Amer) 32.4 BUN/Creatinine Ratio 18.3 (10-20) Glucose 42 L* (70-99) mg/dl POC Glucose 52 L* (70-99) mg/dl POC Glucose (other) (70-99) mg/dl Lactate (0.4-2.0) mmol/L Calcium 9.4 (8.5-10.1) mg/dl POC Ioniz Calcium Denzel (1.12-1.32) mmol/l Magnesium 2.3 (1.8-2.4) mg/dl Total Bilirubin 5.6 H (0.2-1) mg/dl Direct Bilirubin 0.6 H (0-0.2) mg/dl AST 44 H (15-37) U/L ALT 29 (12-78) U/L Alkaline Phosphatase 148 H (45-117) U/L Ammonia (11-32) umol/L Troponin I < 0.015 (0-0.045) ng/ml NT-Pro-B Natriuret Pep 68919 H (0-1800) pg/ml Total Protein 8.5 H (6.4-8.2) gm/dl Albumin 4.3 (3.4-5.0) gm/dl Lipase 49 L (73-393) U/L Urine Color Urine Appearance (Clear) Urine pH (4.5-7.5) Ur Specific [place] (1.000-1.030) Urine Protein (Negative) Urine Glucose (UA) (Negative) Urine Ketones (Negative) Urine Blood (Negative) Urine Nitrite (Negative) Urine Bilirubin (Negative) Urine Urobilinogen (Negative) Ur Leukocyte Esterase (Negative) Urine WBC (Auto) (0-5) /hpf Urine RBC (Auto) (0-4) /hpf U Hyaline Cast (Auto) (0-5) /lpf U Epithel Cells (Auto) (0-5) /lpf Urine Bacteria (Auto) (Negative) Digoxin (0.8-2.0) ng/ml COVID-19 Eval Order SARS-CoV-2 (PCR) (Negative) Influenza Type A (PCR) (Neg) Influenza Type B (PCR) (Neg) RSV (RT-PCR) (Neg) 07/05/20 07/05/20 07/05/20 Range/Units 12:46 12:46 13:09 WBC (4.8-10.8) K/uL RBC (4.2-5.4) M/uL Hgb (12.0-16.0) g/dL POC Hgb (12.0-16.0) g/dl Hct (37-47) % POC Hct (37-47) % MCV (80-100) fL MCH (25-34) pg MCHC (32-36) g/dL RDW Std Deviation (36.4-46.3) fL RDW Coeff of Talia (11.5-14.5) % Plt Count (130-400) K/uL MPV (7.4-10.4) fL Immature Gran % (Auto) % Neut % (Auto) % Lymph % (Auto) % [place] % (Auto) % Eos % (Auto) % Baso % (Auto) % Neut # (Auto) (1.4-6.5) K/uL Lymph # (Auto) (1.2-3.4) K/uL [place] # (Auto) (0.11-0.59) K/uL Eos # (Auto) (0-0.5) K/uL Baso # (Auto) (0-0.2) K/uL Immature Gran # (Auto) (0.00-0.02) K/uL Absolute Nucleated RBC (0-0) K/uL Nucleated RBC % (auto) % PT 12.4 H (9.0-12.0) Seconds INR 1.2 H (0.9-1.1) APTT 28.8 (21.0-31.0) Seconds PTT Ratio 1.1 VBG pH (7.36-7.41) VBG pCO2 (38-50) mmHg VBG pO2 mmHg VBG HCO3 mmol/L VBG O2 Saturation % VBG Base Excess mEq/L Barometric Pressure mm/Hg POC Sodium (135-144) mmol/L Sodium (136-145) mmol/L POC Potassium (3.3-5.0) mmol/L Potassium (3.5-5.1) mmol/L POC Chloride (101-112) mmol/L Chloride (98-107) mmol/L Carbon Dioxide (21-32) mmol/L POC Total CO2 (24-31) mmol/L Anion Gap (3-11) POC Anion Gap (16-25) mmol/L POC BUN (7-18) mg/dl BUN (7-18) mg/dl Creatinine (0.6-1.2) mg/dl POC Creatinine (0.6-1.3) mg/dl Est Cr Clr Drug Dosing Est GFR ( Amer) Est GFR (Non-Af Amer) BUN/Creatinine Ratio (10-20) Glucose (70-99) mg/dl POC Glucose 207 H (70-99) mg/dl POC Glucose (other) (70-99) mg/dl Lactate 1.8 (0.4-2.0) mmol/L Calcium (8.5-10.1) mg/dl POC Ioniz Calcium Denzel (1.12-1.32) mmol/l Magnesium (1.8-2.4) mg/dl Total Bilirubin (0.2-1) mg/dl Direct Bilirubin (0-0.2) mg/dl AST (15-37) U/L ALT (12-78) U/L Alkaline Phosphatase (45-117) U/L Ammonia (11-32) umol/L Troponin I (0-0.045) ng/ml NT-Pro-B Natriuret Pep (0-1800) pg/ml Total Protein (6.4-8.2) gm/dl Albumin (3.4-5.0) gm/dl Lipase (73-393) U/L Urine Color Urine Appearance (Clear) Urine pH (4.5-7.5) Ur Specific [place] (1.000-1.030) Urine Protein (Negative) Urine Glucose (UA) (Negative) Urine Ketones (Negative) Urine Blood (Negative) Urine Nitrite (Negative) Urine Bilirubin (Negative) Urine Urobilinogen (Negative) Ur Leukocyte Esterase (Negative) Urine WBC (Auto) (0-5) /hpf Urine RBC (Auto) (0-4) /hpf U Hyaline Cast (Auto) (0-5) /lpf U Epithel Cells (Auto) (0-5) /lpf Urine Bacteria (Auto) (Negative) Digoxin (0.8-2.0) ng/ml COVID-19 Eval Order SARS-CoV-2 (PCR) (Negative) Influenza Type A (PCR) (Neg) Influenza Type B (PCR) (Neg) RSV (RT-PCR) (Neg) 07/05/20 07/05/20 07/05/20 Range/Units 13:09 13:18 13:18 WBC (4.8-10.8) K/uL RBC (4.2-5.4) M/uL Hgb (12.0-16.0) g/dL POC Hgb (12.0-16.0) g/dl Hct (37-47) % POC Hct (37-47) % MCV (80-100) fL MCH (25-34) pg MCHC (32-36) g/dL RDW Std Deviation (36.4-46.3) fL RDW Coeff of Talia (11.5-14.5) % Plt Count (130-400) K/uL MPV (7.4-10.4) fL Immature Gran % (Auto) % Neut % (Auto) % Lymph % (Auto) % [place] % (Auto) % Eos % (Auto) % Baso % (Auto) % Neut # (Auto) (1.4-6.5) K/uL Lymph # (Auto) (1.2-3.4) K/uL [place] # (Auto) (0.11-0.59) K/uL Eos # (Auto) (0-0.5) K/uL Baso # (Auto) (0-0.2) K/uL Immature Gran # (Auto) (0.00-0.02) K/uL Absolute Nucleated RBC (0-0) K/uL Nucleated RBC % (auto) % PT (9.0-12.0) Seconds INR (0.9-1.1) APTT (21.0-31.0) Seconds PTT Ratio VBG pH (7.36-7.41) VBG pCO2 (38-50) mmHg VBG pO2 mmHg VBG HCO3 mmol/L VBG O2 Saturation % VBG Base Excess mEq/L Barometric Pressure mm/Hg POC Sodium (135-144) mmol/L Sodium (136-145) mmol/L POC Potassium (3.3-5.0) mmol/L Potassium (3.5-5.1) mmol/L POC Chloride (101-112) mmol/L Chloride (98-107) mmol/L Carbon Dioxide (21-32) mmol/L POC Total CO2 (24-31) mmol/L Anion Gap (3-11) POC Anion Gap (16-25) mmol/L POC BUN (7-18) mg/dl BUN (7-18) mg/dl Creatinine (0.6-1.2) mg/dl POC Creatinine (0.6-1.3) mg/dl Est Cr Clr Drug Dosing Est GFR ( Amer) Est GFR (Non-Af Amer) BUN/Creatinine Ratio (10-20) Glucose (70-99) mg/dl POC Glucose (70-99) mg/dl POC Glucose (other) (70-99) mg/dl Lactate (0.4-2.0) mmol/L Calcium (8.5-10.1) mg/dl POC Ioniz Calcium Denzel (1.12-1.32) mmol/l Magnesium (1.8-2.4) mg/dl Total Bilirubin (0.2-1) mg/dl Direct Bilirubin (0-0.2) mg/dl AST (15-37) U/L ALT (12-78) U/L Alkaline Phosphatase (45-117) U/L Ammonia 24.2 (11-32) umol/L Troponin I (0-0.045) ng/ml NT-Pro-B Natriuret Pep (0-1800) pg/ml Total Protein (6.4-8.2) gm/dl Albumin (3.4-5.0) gm/dl Lipase (73-393) U/L Urine Color Yellow Urine Appearance Clear (Clear) Urine pH 8.0 H (4.5-7.5) Ur Specific [place] 1.010 (1.000-1.030) Urine Protein 2+ H (Negative) Urine Glucose (UA) Trace H (Negative) Urine Ketones Negative (Negative) Urine Blood 1+ H (Negative) Urine Nitrite Negative (Negative) Urine Bilirubin Negative (Negative) Urine Urobilinogen Negative (Negative) Ur Leukocyte Esterase Negative (Negative) Urine WBC (Auto) 1-5 (0-5) /hpf Urine RBC (Auto) 0-4 (0-4) /hpf U Hyaline Cast (Auto) 0 (0-5) /lpf U Epithel Cells (Auto) 0-5 (0-5) /lpf Urine Bacteria (Auto) Negative (Negative) Digoxin 0.8 (0.8-2.0) ng/ml COVID-19 Eval Order SARS-CoV-2 (PCR) (Negative) Influenza Type A (PCR) (Neg) Influenza Type B (PCR) (Neg) RSV (RT-PCR) (Neg) 07/05/20 07/05/20 07/05/20 Range/Units 13:18 13:19 13:27 WBC (4.8-10.8) K/uL RBC (4.2-5.4) M/uL Hgb (12.0-16.0) g/dL POC Hgb 9.5 L (12.0-16.0) g/dl Hct (37-47) % POC Hct 28 L (37-47) % MCV (80-100) fL MCH (25-34) pg MCHC (32-36) g/dL RDW Std Deviation (36.4-46.3) fL RDW Coeff of Talia (11.5-14.5) % Plt Count (130-400) K/uL MPV (7.4-10.4) fL Immature Gran % (Auto) % Neut % (Auto) % Lymph % (Auto) % [place] % (Auto) % Eos % (Auto) % Baso % (Auto) % Neut # (Auto) (1.4-6.5) K/uL Lymph # (Auto) (1.2-3.4) K/uL [place] # (Auto) (0.11-0.59) K/uL Eos # (Auto) (0-0.5) K/uL Baso # (Auto) (0-0.2) K/uL Immature Gran # (Auto) (0.00-0.02) K/uL Absolute Nucleated RBC (0-0) K/uL Nucleated RBC % (auto) % PT (9.0-12.0) Seconds INR (0.9-1.1) APTT (21.0-31.0) Seconds PTT Ratio VBG pH 7.43 H (7.36-7.41) VBG pCO2 52 H (38-50) mmHg VBG pO2 24 mmHg VBG HCO3 33 mmol/L VBG O2 Saturation < 60.0 % VBG Base Excess 8.0 mEq/L Barometric Pressure 732.8 mm/Hg POC Sodium 139 (135-144) mmol/L Sodium (136-145) mmol/L POC Potassium 3.9 (3.3-5.0) mmol/L Potassium (3.5-5.1) mmol/L POC Chloride 96 L (101-112) mmol/L Chloride (98-107) mmol/L Carbon Dioxide (21-32) mmol/L POC Total CO2 34 H (24-31) mmol/L Anion Gap (3-11) POC Anion Gap 14.0 L (16-25) mmol/L POC BUN 30 H (7-18) mg/dl BUN (7-18) mg/dl Creatinine (0.6-1.2) mg/dl POC Creatinine 1.4 H (0.6-1.3) mg/dl Est Cr Clr Drug Dosing Est GFR ( Amer) Est GFR (Non-Af Amer) BUN/Creatinine Ratio (10-20) Glucose (70-99) mg/dl POC Glucose 173 H (70-99) mg/dl POC Glucose (other) 169 H (70-99) mg/dl Lactate (0.4-2.0) mmol/L Calcium (8.5-10.1) mg/dl POC Ioniz Calcium Denzel 1.02 L (1.12-1.32) mmol/l Magnesium (1.8-2.4) mg/dl Total Bilirubin (0.2-1) mg/dl Direct Bilirubin (0-0.2) mg/dl AST (15-37) U/L ALT (12-78) U/L Alkaline Phosphatase (45-117) U/L Ammonia (11-32) umol/L Troponin I (0-0.045) ng/ml NT-Pro-B Natriuret Pep (0-1800) pg/ml Total Protein (6.4-8.2) gm/dl Albumin (3.4-5.0) gm/dl Lipase (73-393) U/L Urine Color Urine Appearance (Clear) Urine pH (4.5-7.5) Ur Specific [place] (1.000-1.030) Urine Protein (Negative) Urine Glucose (UA) (Negative) Urine Ketones (Negative) Urine Blood (Negative) Urine Nitrite (Negative) Urine Bilirubin (Negative) Urine Urobilinogen (Negative) Ur Leukocyte Esterase (Negative) Urine WBC (Auto) (0-5) /hpf Urine RBC (Auto) (0-4) /hpf U Hyaline Cast (Auto) (0-5) /lpf U Epithel Cells (Auto) (0-5) /lpf Urine Bacteria (Auto) (Negative) Digoxin (0.8-2.0) ng/ml COVID-19 Eval Order SARS-CoV-2 (PCR) (Negative) Influenza Type A (PCR) (Neg) Influenza Type B (PCR) (Neg) RSV (RT-PCR) (Neg) 07/05/20 07/05/20 Range/Units 15:05 15:05 WBC (4.8-10.8) K/uL RBC (4.2-5.4) M/uL Hgb (12.0-16.0) g/dL POC Hgb (12.0-16.0) g/dl Hct (37-47) % POC Hct (37-47) % MCV (80-100) fL MCH (25-34) pg MCHC (32-36) g/dL RDW Std Deviation (36.4-46.3) fL RDW Coeff of Talia (11.5-14.5) % Plt Count (130-400) K/uL MPV (7.4-10.4) fL Immature Gran % (Auto) % Neut % (Auto) % Lymph % (Auto) % [place] % (Auto) % Eos % (Auto) % Baso % (Auto) % Neut # (Auto) (1.4-6.5) K/uL Lymph # (Auto) (1.2-3.4) K/uL [place] # (Auto) (0.11-0.59) K/uL Eos # (Auto) (0-0.5) K/uL Baso # (Auto) (0-0.2) K/uL Immature Gran # (Auto) (0.00-0.02) K/uL Absolute Nucleated RBC (0-0) K/uL Nucleated RBC % (auto) % PT (9.0-12.0) Seconds INR (0.9-1.1) APTT (21.0-31.0) Seconds PTT Ratio VBG pH (7.36-7.41) VBG pCO2 (38-50) mmHg VBG pO2 mmHg VBG HCO3 mmol/L VBG O2 Saturation % VBG Base Excess mEq/L Barometric Pressure mm/Hg POC Sodium (135-144) mmol/L Sodium (136-145) mmol/L POC Potassium (3.3-5.0) mmol/L Potassium (3.5-5.1) mmol/L POC Chloride (101-112) mmol/L Chloride (98-107) mmol/L Carbon Dioxide (21-32) mmol/L POC Total CO2 (24-31) mmol/L Anion Gap (3-11) POC Anion Gap (16-25) mmol/L POC BUN (7-18) mg/dl BUN (7-18) mg/dl Creatinine (0.6-1.2) mg/dl POC Creatinine (0.6-1.3) mg/dl Est Cr Clr Drug Dosing Est GFR ( Amer) Est GFR (Non-Af Amer) BUN/Creatinine Ratio (10-20) Glucose (70-99) mg/dl POC Glucose (70-99) mg/dl POC Glucose (other) (70-99) mg/dl Lactate (0.4-2.0) mmol/L Calcium (8.5-10.1) mg/dl POC Ioniz Calcium Denzel (1.12-1.32) mmol/l Magnesium (1.8-2.4) mg/dl Total Bilirubin (0.2-1) mg/dl Direct Bilirubin (0-0.2) mg/dl AST (15-37) U/L ALT (12-78) U/L Alkaline Phosphatase (45-117) U/L Ammonia (11-32) umol/L Troponin I (0-0.045) ng/ml NT-Pro-B Natriuret Pep (0-1800) pg/ml Total Protein (6.4-8.2) gm/dl Albumin (3.4-5.0) gm/dl Lipase (73-393) U/L Urine Color Urine Appearance (Clear) Urine pH (4.5-7.5) Ur Specific [place] (1.000-1.030) Urine Protein (Negative) Urine Glucose (UA) (Negative) Urine Ketones (Negative) Urine Blood (Negative) Urine Nitrite (Negative) Urine Bilirubin (Negative) Urine Urobilinogen (Negative) Ur Leukocyte Esterase (Negative) Urine WBC (Auto) (0-5) /hpf Urine RBC (Auto) (0-4) /hpf U Hyaline Cast (Auto) (0-5) /lpf U Epithel Cells (Auto) (0-5) /lpf Urine Bacteria (Auto) (Negative) Digoxin (0.8-2.0) ng/ml COVID-19 Eval Order [facility]FluRsv at [facility] SARS-CoV-2 (PCR) NEGATIVE (Negative) Influenza Type A (PCR) Negative (Neg) Influenza Type B (PCR) Negative (Neg) RSV (RT-PCR) Negative (Neg) Imaging Data Radiologist's Impression: Abdomen/Pelvis CT 07/05/20 12:39 CT SCAN OF THE ABDOMEN AND PELVIS WITHOUT IV CONTRAST CLINICAL HISTORY: Fall. COMPARISON STUDY: Abdominal CT dated 12/23/2018. TECHNIQUE: CT scan of the abdomen and pelvis is performed from the lung bases to the proximal femora. Images are reviewed in the axial, sagittal, and coronal planes. IV contrast was not administered for this examination. Note that the examination was performed in significantly suboptimal fashion without IV cont rast. There is also motion artifact, and streak artifact from the arms which could not be elevated above the abdomen. A dose lowering technique was utilized adhering to the principles of ALARA. FINDINGS: Lung bases: The heart is mildly enlarged and without pericardial effusion. The coronary arteries and mitral annulus are densely calcified. There are small to moderate pleural effusions with bibasilar consolidation. There is no basilar pneumothorax. Liver: The unenhanced liver is normal in size, contour, and attenuation. There is no intrahepatic biliary ductal dilatation. Gallbladder: Unremarkable. Spleen: Normal in size and attenuation. Pancreas: The unenhanced pancreas is moderately atrophic and grossly unremarkable. Adrenal glands: Unremarkable. Kidneys: The unenhanced kidneys are atrophic and without hydronephrosis. There are no renal calculi identified. There is no evidence of contour deforming renal mass lesion. Abdominal vasculature: The abdominal aorta is normal in course and caliber noting moderate to advanced atherosclerotic calcification. Bowel: There is no bowel obstruction. The appendix is well-visualized and normal. Peritoneum: There is no intraperitoneal free air or abdominal ascites. Lymphadenopathy: None. Pelvic viscera: The bladder is distended but otherwise normal in appearance. The uterus is surgically absent. No adnexal lesion is seen. Skeletal structures: The skeletal structures are osteopenic. There is a mild chronic superior endplate compression deformity of L1. Spondylotic changes noted throughout the lumbar spine. The lumbosacral spine, bony pelvis, and proximal femora otherwise appear intact. No lytic or blastic lesions are seen. Soft tissues: A sacral stimulator device is present in the right gluteal soft tissues. Soft tissue contusion is suggested in the right flank. IMPRESSION: 1. Suboptimal examination without IV contrast. There is also streak and motion artifact. 2. There is no evidence of solid organ injury in the abdomen or pelvis on this unenhanced examination. 3. Small to moderate pleural effusions with bibasilar consolidation. This likely represents atelectasis and clinical correlation will be required. 4. Soft tissue contusion is noted in the right flank. 5. Additional findings as above. ACT 112: Negative or not required by law. Electronically signed by: Jorge Cornejo M.D. 07/05/2020 1:[address] 07/05/20 12:40 CT cervical spine wo con CT DOSE: 1427.87 mGy.cm CLINICAL HISTORY: 85 years-old Female with fall. Acute head and neck trauma status post fall COMPARISON: Head CT of same day, CT soft tissue neck 06/26/2020 TECHNIQUE: Multiple axial CT images of the cervical spine were obtained without contrast. A dose lowering technique was utilized adhering to the principles of ALARA. FINDINGS: Demineralized appearance the bones. Moderate intervertebral disc space narrowing at C3-C4 through C6-C7. Mild to moderate facet arthrosis with moderate multilevel spondylitic spurring and posterior disc osteophyte complex formations. There is mild levoscoliosis. No acute fracture or subluxation. Multilevel neural foraminal narrowing. Mild groundglass densities of the lung apices with mosaic attenuation, possibly reflective of air trapping. No prevertebral edema. Calcified plaque of the carotid bulbs. IMPRESSION: No acute fracture or subluxation. ACT 112: Negative or not required by law. The above report was generated using voice recognition software. It may contain grammatical, syntax or spelling errors. Electronically signed by: Manuel Vargas M.D. 07/05/2020 1:16 PM Chest X-Ray 07/05/20 12:40 SINGLE VIEW CHEST CLINICAL HISTORY: Fall. FINDINGS: An AP, portable, upright chest radiograph is compared to chest x-ray and chest CT dated 06/26/2020. The heart is enlarged. The pulmonary vasculature is noncongested. Chronic interstitial thickening is similar to previous. The lungs and pleural spaces are clear. No pneumothorax is seen. The skeletal structures are osteopenic. The bony thorax is grossly intact. IMPRESSION: Cardiomegaly with no active disease in the chest. ACT 112: Negative or not required by law. Electronically signed by: Jorge Cornejo M.D. 07/05/2020 1:[address] 07/05/20 12:40 CT head/brain wo con CLINICAL HISTORY: 85 years-old Female with fall. Acute head and neck trauma status post fall TECHNIQUE: Multiple axial CT images of the head were obtained without contrast. A dose lowering technique was utilized adhering to the principles of ALARA. COMPARISON: Head CT 05/03/2020 FINDINGS: No acute intracranial hemorrhage, midline shift, intracranial mass, hydrocephalus, territorial ischemia or abnormal extra-axial collection. Age- related involutional changes with chronic microvascular ischemic disease. 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 The calvarium is intact. Prior bilateral lens repair. The paranasal sinuses, mastoid air cells, and middle ear cavities are clear. IMPRESSION: No acute intracranial abnormality. ACT 112: Negative or not required by law. The above report was generated using voice recognition software. It may contain grammatical, syntax or spelling errors. Electronically signed by: Manuel Vargas M.D. 07/05/2020 1:09 PM Pelvis X-Ray 07/05/20 12:40 XR pelvis 1-2V routine HISTORY: 85 years-old Female fall acute pelvic pain status post fall COMPARISON: CT abdomen and pelvis of same day TECHNIQUE: Supine AP view of the pelvis FINDINGS: Moderate osteophyte is of the acetabular joints. No acute fracture, dislocation or avascular necrosis. Pelvic basin phlebolith. A stimulator device overlies the right flank with single lead overlying the left mid to inferior sacrum. IMPRESSION: No acute fracture. ACT 112: Negative or not required by law. The above report was generated using voice recognition software. It may contain grammatical, syntax or spelling errors. Electronically signed by: Manuel Vargas M.D. 07/05/2020 1:51 PM ECG Data Indication: + altered mental status Rate (beats per minute): 78 Rhythm: + atrial fibrillation ECG Intervals/blocks: + Normal QRS and + Normal QT-c ECG ST segments: + Normal ST segments MDM Narrative 1236: The patient was evaluated in room A10. A complete history and physical exam was performed Cardiac monitoring: An order was placed for continuous cardiac monitoring. The monitor shows a rate of 80 with atrial fibrilation rhythm On arrival the patient was hypoxic on room air. Patient was placed on 2 L nasal cannula which improved her oxygen saturation. Patient was also found to have a low blood sugar via Accu-Chek. Patient was given 1 amp of D50. EMR reviewed. Patient is on digoxin as well as Eliquis. Patient also has a history of CKD. After receiving the amp of D50 and some p.o. orange juice as well as oxygen via nasal cannula the patient's mental status started to improve. 1350: Vital signs stable on supplemental oxygen via nasal cannula. Patient alert and oriented and tolerating p.o. Labs show a hemoglobin of 9.5. Patient's blood sugar did remain stable after receiving the amp of D50. VBG within normal limits. Potassium 2.8. proBNP is 10,075. Patient's bilirubin is elevated at 5.6, this is elevated from 1.2 on June 26. Imaging shows no acute traumatic injury. Troponin negative. Digoxin level, influenza and Covid screen are negative. Patient will be admitted to the [facility] hospitalist team Dr. Tsang has been notified. Dr. Tsang and I discussed the case and we will hold off on Lasix at this time given her low potassium and her not being in respiratory distress on supplemental oxygen via nasal cannula. Patient's potassium repletion was started in the emergency department. Impression & Plan Hypokalemia, Chronic diastolic congestive heart failure, Hypoxia, Hypoglycemia Discharge Plan Visit Data Chief Complaint: Illness Stated Complaint: TURNING YELLOW & CONFUSED ED Provider: Steve Brar Discharge Problem: Hypokalemia, Chronic diastolic congestive heart failure, Hypoxia, Hypoglycemia Patient Disposition: Admitted As Inpatient Forms Stand Alone Forms: My [facility] Prescriptions Prescriptions: No Action metoprolol succinate 50 mg tablet extended release 24 hr 100 mg PO BID Qty: 360 RF: 3 levothyroxine 50 mcg tablet 50 mcg PO QAM 30 Days Qty: 30 RF: 5 digoxin 125 mcg (0.125 mg) tablet 125 mcg PO QAM Qty: 90 RF: 1 fluticasone propionate 50 mcg/actuation spray,suspension 1 spray intranasal BID PRN (Reason: allergy symptoms) Qty: 16 RF: 1 gabapentin 300 mg capsule 300 mg PO HS PRN (Reason: pain, severe) Qty: 90 RF: 1 clopidogrel [Plavix] 75 mg tablet 75 mg PO DAILY Qty: 90 RF: 1 pantoprazole 40 mg tablet,delayed release (DR/EC) 40 mg PO QAM Qty: 90 RF: 1 allopurinol 100 mg tablet 300 mg PO QAM Qty: 270 RF: 1 diclofenac sodium [Voltaren] 1 % gel 2 g TOPICAL HS PRN (Reason: Pain) Qty: 100 RF: 3 gabapentin 800 mg tablet 800 mg PO TID 90 Days Qty: 270 RF: 1 duloxetine 60 mg capsule,delayed release(DR/EC) 60 mg PO QAM Qty: 90 RF: 1 potassium chloride 20 mEq tablet extended release 20 meq PO BID RF: 0 cholecalciferol (vitamin D3) [Vitamin D3] 25 mcg (1,000 unit) tablet 2,000 unit PO QAM RF: 0 Novolog Flexpen U-100 Insulin 100 unit/mL (3 mL) insulin pen 7 - 10 unit subcut TIDM Qty: 45 RF: 1 Lantus Solostar U-100 Insulin 100 unit/mL (3 mL) insulin pen 42 unit subcut HS Qty: 15 RF: 4 magnesium oxide 400 mg magnesium tablet 400 mg PO BID Qty: 90 RF: 1 lidocaine 4 % gel 1 appln TOP TID PRN (Reason: right lower leg pain) Qty: 30 RF: 0 acetaminophen [Tylenol Arthritis Pain] 650 mg tablet extended release 1,300 mg PO HS RF: 0 isosorbide mononitrate 30 mg tablet extended release 24 hr 30 mg PO QAM Qty: 90 RF: 1 albuterol sulfate [ProAir HFA] 90 mcg/actuation HFA aerosol inhaler 1 - 2 puffs INH Q4H PRN (Reason: shortness of breath or wheezing) Qty: 6.7 RF: 3 levetiracetam 250 mg tablet 250 mg PO HS Qty: 30 RF: 2 furosemide 40 mg tablet 80 mg PO BID Qty: 270 RF: 1 atorvastatin 20 mg tablet 20 mg PO QPM RF: 0 Nucynta 50 mg tablet 100 mg PO BID PRN (Reason: pain) RF: 0 Eliquis 2.5 mg tablet 2.5 mg PO BID RF: 0 Referrals Referrals: Domi Wetzel DO [Primary Care Provider] -
--- NOTE | 2020-07-05 17:09 | Electrocardiogram Report ---
Test Reason : Blood Pressure : / mmHG Vent. Rate : 078 BPM Atrial Rate : 089 BPM P-R Int : 000 ms QRS Dur : 086 ms QT Int : 390 ms P-R-T Axes : 000 -06 214 degrees QTc Int : 444 ms Atrial fibrillation Low voltage QRS Abnormal ECG When compared with ECG of 03-MAY-2020 11:35, Borderline criteria for Anterior infarct are no longer Present ST now depressed in Anterior leads T wave inversion now evident in Anterolateral leads Confirmed by Joseph Azar ([id number]) on 07/05/2020 5:08:48 PM Referred By: REFERRED SELF Confirmed By:Chucky Azar
[2020-07-05 17:29] LABS: Alanine Aminotransferase 25 U/L (12-78); Albumin Level 3.7 gm/dl (3.4-5.0); Alkaline Phosphatase 128 U/L (45-117); Aspartate Aminotransferase 35 U/L (15-37); BUN Creatinine Ratio 17.9 (10-20); Bilirubin,Total 4.4 mg/dl (0.2-1); Blood Urea Nitrogen 26 mg/dl (7-18); Calcium 8.5 mg/dl (8.5-10.1); Carbon Dioxide 31 mmol/L (21-32); Chloride 101 mmol/L (98-107); Est GFR (African American) 38.2; Est GFR (Non-African American) 32.9; Globulin 3.8 gm/dl (2.5-4.0); Glucose 69 mg/dl (70-99); Potassium 3.6 mmol/L (3.5-5.1); Sodium 138 mmol/L (136-145); Total Protein 7.5 gm/dl (6.4-8.2)
[2020-07-05] MEDS ORDERED: GLUCOSE 40% GEL 15 GM TUBE PO PRN (17:53)
[2020-07-05] MEDS ORDERED: DEXTROSE 50% 50 ML SYRINGE IV PRN (17:53)
[2020-07-05] MEDS ORDERED: GLUCOSE 10 TABS/TUBE PO PRN (17:53)
[2020-07-05] MEDS ORDERED: GLUCAGON FOR INJ 1 MG VIAL SQ PRN (17:53)
[2020-07-05] MEDS: CARBOHYDRATES FOR HYPOGLYCEMIA PO PRN ×2 (18:00→18:18)
[2020-07-05] MEDS ORDERED: LIDOCAINE 4% CREAM 15 GM TUBE EXT PRN (18:06)
[2020-07-05] MEDS: INSULIN ASPART 100 UNITS/ML 3 ML PEN SC SCH ×2 (18:45→21:10)
[2020-07-05] MEDS: POTASSIUM CHLORIDE CRTAB 20 MEQ TABCR PO SCH (20:55)
[2020-07-05] MEDS: MAGNESIUM OXIDE 400 MG TAB PO SCH (20:56)
[2020-07-05] MEDS: METOPROLOL SUCC 50MG EXT REL TAB PO SCH (20:56)
[2020-07-05] MEDS: APIXABAN 2.5 MG TAB PO SCH (20:57)
[2020-07-05] MEDS: GABAPENTIN 800 MG TAB PO SCH (20:57)
[2020-07-05] MEDS: ATORVASTATIN 20 MG TAB PO SCH (20:57)
[2020-07-05] MEDS: levETIRAcetam 250 MG TAB PO SCH (20:58)
[2020-07-05] MEDS: INSULIN GLARGINE SOLOSTAR 100 UNITS/ML 3 ML PEN SQ SCH (21:09)
[2020-07-05] MEDS ORDERED: MoRPHine SULFATE 2 MG/ML CARP IV STA (21:19)
[2020-07-05] MEDS: DICLOFENAC SOD 1% GEL 100 GM TUBE EXT PRN (22:28)
[2020-07-05] MEDS: GABAPENTIN 300 MG CAP PO PRN (23:18)
[2020-07-05 23:43] LABS: Albumin Level 3.4 gm/dl (3.4-5.0); Calcium 8.6 mg/dl (8.5-10.1); Creatinine Clr Calc Pharmacy 20.4 ml/min; Est GFR (African American) 26.9; Est GFR (Non-African American) 23.2; Potassium 3.9 mmol/L (3.5-5.1)
[2020-07-05 23:56] LABS: Albumin Globulin Ratio 1.1 (0.9-2); Bilirubin,Total 3.4 mg/dl (0.2-1); Globulin 3.1 gm/dl (2.5-4.0); Total Protein 6.5 gm/dl (6.4-8.2)
[2020-07-06] MEDS: LEVOTHYROXINE SODIUM 50 MCG TABLET PO SCH (06:29)
[2020-07-06 07:52] LABS: Estimated Average Glucose 111 mg/dl; Hemoglobin A1C 5.5 % (4.5-5.6)
[2020-07-06] MEDS: POTASSIUM CHLORIDE CRTAB 20 MEQ TABCR PO SCH ×2 (08:14→20:04)
[2020-07-06] MEDS: APIXABAN 2.5 MG TAB PO SCH ×2 (08:14→20:02)
[2020-07-06 08:15] LABS: Albumin Globulin Ratio 1.1 (0.9-2); Albumin Level 3.2 gm/dl (3.4-5.0); BUN Creatinine Ratio 17.2 (10-20); Bilirubin,Total 2.8 mg/dl (0.2-1); Calcium 8.3 mg/dl (8.5-10.1); Creatinine Clr Calc Pharmacy 21.6 ml/min; Est GFR (African American) 28.7; Est GFR (Non-African American) 24.7; Potassium 4.1 mmol/L (3.5-5.1); Total Protein 6.2 gm/dl (6.4-8.2)
[2020-07-06] MEDS: DULoxetine HCL 60 MG CAP PO SCH (08:15)
[2020-07-06] MEDS: ISOSORBIDE MONO EXTENDED REL 30 MG TABCR PO SCH (08:15)
[2020-07-06] MEDS: CHOLECALCIFEROL 1,000 UNITS 25 MCG TAB PO SCH (08:15)
[2020-07-06] MEDS: allopurinoL 300 MG TAB PO SCH (08:16)
[2020-07-06] MEDS: CLOPIDOGREL BISULFATE 75 MG TAB PO SCH (08:16)
[2020-07-06] MEDS: METOPROLOL SUCC 50MG EXT REL TAB PO SCH ×2 (08:16→20:05)
[2020-07-06] MEDS: GABAPENTIN 800 MG TAB PO SCH ×3 (08:17→20:03)
[2020-07-06] MEDS: PANTOprazole 40 MG TAB PO SCH (08:17)
[2020-07-06] MEDS: MAGNESIUM OXIDE 400 MG TAB PO SCH ×2 (08:17→20:05)
[2020-07-06] MEDS: FUROSEMIDE 40 MG in SYRINGE 0 ML IV SCH ×2 (08:20→16:36)
[2020-07-06] MEDS: INSULIN ASPART 100 UNITS/ML 3 ML PEN SC SCH ×4 (08:21→20:13)
--- NOTE | 2020-07-06 09:16 | Hospitalist Progress Note ---
Date of Service July 06, 2020 Assessment & Plan Admission and Anticipated Discharge Date Admission Date: July 05, 2020 Results & Data Results & Data ([facility]) Vital Signs (Past 12 Hours) Vital Signs Temp Pulse Pulse Resp BP BP Pulse Ox 07/06/20 07:32 36.3 C L 85 18 121/77 121/77 97 07/06/20 02:49 36.6 C 72 20 145/79 H 98 07/06/20 00:11 67 07/05/20 23:18 36.5 C 77 20 141/66 H 99
--- NOTE | 2020-07-06 11:51 | Consultation Report ---
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 HISTORY OF PRESENT ILLNESS: Tiffanie Porter is a pleasant 85-year-old female who was admitted through [facility]'s Emergency Room yesterday on the advice of her primary care physician because of subacute-onset jaundice. The patient apparently had been confused over the past couple of days. She is on a pain medication for her back and apparently took a dose yesterday, and her had noticed increased confusion. This lady is familiar to us at [facility]. She was originally seen by our ice cream dispenser, Dr. Miguel A Tamayo, in mid May for unspecified anemia. She was then seen in followup by Rosalee Tomlinson on 06/27/2020 and recommended a workup for possible autoimmune hemolytic anemia. The patient was scheduled to return to us in 4 weeks. I had audited our blood bank looking for data regarding a direct or indirect Catina or prior transfusion history. She actually has no record in our blood bank in this regard. I did see her hemoglobin at the time of her followup was 8.7 g/dL, which has since improved to her current level of 10.8 g/dL. Her MCV is slightly elevated, which is most likely attributable to reticulocytosis, which was at 8.5% on 06/27. I am not familiar with Tiffanie, but certainly will audit her medical record and make formal recommendations at the conclusion. PAST MEDICAL HISTORY: Includes asthma, chronic anemia, coronary artery disease, chronic diastolic congestive heart failure, chronic kidney disease, COPD, osteoarthritis, gastroesophageal reflux, hyperlipidemia, hypertension, hypothyroidism, macular degeneration, mitral regurgitation, obstructive sleep apnea, conductive hearing loss, spinal stenosis. PAST SURGICAL HISTORY: Includes colonoscopy, breast biopsy, section, cholecystectomy, hysterectomy and implantation of urinary electronic stimulator device. MEDICATIONS: Her current prescription medicines include albuterol inhaler 1-2 puffs inhaled q.4 hours p.r.n., metoprolol 100 mg p.o. b.i.d., levothyroxine 50 mcg p.o. daily, digoxin 125 mcg p.o. daily, Flonase 1 spray intranasal b.i.d., gabapentin 300 mg p.o. at bedtime, clopidogrel 75 mg p.o. daily, Protonix 40 mg p.o. daily, allopurinol 300 mg p.o. daily, gabapentin 800 mg p.o. t.i.d., duloxetine 60 mg p.o. daily, Imdur 30 mg p.o. daily, potassium chloride 20 mEq p.o. b.i.d., furosemide 80 mg p.o. b.i.d., atorvastatin 20 mg p.o. daily, cholecalciferol 2000 units p.o. daily, insulin aspart U-100 at 7-10 units subQ t.i.d. with meals and insulin glargine 42 units subQ at bedtime, Eliquis 2.5 mg p.o. b.i.d., levetiracetam 250 mg p.o. at bedtime, Nucynta 100 mg p.o. b.i.d. p.r.n., and magnesium oxide 400 mg p.o. b.i.d. ALLERGIES: IODINE, SHELLFISH, LISINOPRIL, OXYBUTYNIN, SERTRALINE AND PAROXETINE. SOCIAL HISTORY: The patient lives with her spouse. She is retired. She is a nonsmoker, nondrinker, non-illicit drug user. FAMILY HISTORY: Father of undisclosed cause at age 64. Mother at age 61 for unknown reasons. She has a positive family history of heart disease otherwise. REVIEW OF SYSTEMS: CONSTITUTIONAL: Positive for confusion. The patient denies overt fatigue or weakness. She is not anorexic or losing weight. No fevers, chills or sweats. SKIN: No rashes or lesions. She is mildly jaundiced. HEENT: Negative for headaches, lightheadedness or dizziness. No acute visual or hearing deficits. She suffers from macular degeneration. Negative for sinus symptoms, sore throat or dysphagia. LYMPHATICS: No history of lymphoproliferative disease. CARDIAC: Extensive cardiac history, now admitted for diastolic heart failure. PULMONARY: Positive for COPD. She is not acutely short of breath, dyspneic or orthopneic. No cough or hemoptysis. GASTROINTESTINAL: Negative for abdominal pain, nausea, vomiting, diarrhea or constipation, hematochezia or melena stools. GENITOURINARY: No hematuria, dysuria, or urinary incontinence. PSYCHIATRIC: Positive for depression. ENDOCRINE: Positive for diabetes mellitus and hypothyroidism. MUSCULOSKELETAL: No arthralgias or myalgias. No focal muscle weakness. NEUROLOGIC: Negative for seizure, stroke, or migraine headache. HEMATOLOGIC: Positive for anemia, possibly ongoing hemolysis. PHYSICAL EXAMINATION: GENERAL: A very pleasant 85-year-old elderly female. Awake, alert and appropriate, in no acute distress. VITAL SIGNS: Temperature 36.8, pulse 85, respiratory rate 18, blood pressure 121/77. SKIN: Mildly jaundiced, otherwise no petechiae or excessive ecchymosis noted. HEENT: Atraumatic, normocephalic. Eyes: PERRLA, EOMI. Sclerae nonicteric. No conjunctival injection. Nares are patent without rhinorrhea or discharge. Throat clear. Tongue midline. Mucous membranes are moist. NECK: Supple without JVD or thyromegaly. HEART: Regular rate and rhythm. No clicks, rubs, murmurs or gallops. LUNGS: Clear to auscultation bilaterally. ABDOMEN: Soft, nontender, nondistended. EXTREMITIES: Musculoskeletal strength and pulses are equal in all 4 quadrants. No clubbing, cyanosis or edema. NEUROLOGICAL: She is awake, alert and oriented x3. Cranial nerves are grossly intact. LABORATORY DATA: WBC count 10,910, hemoglobin 10.8, platelet count 343,000. Sodium 139, potassium 3.9, chloride 96, CO2 of 34, creatinine 1.4, BUN 30, glucose 199. BNP 10,075. RADIOGRAPHIC DATA: Pelvic x-ray, no fracture. Head CT, no acute intracranial anomaly. Chest x-ray, cardiomegaly with no active disease in the chest. IMPRESSION: 1. 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 2. Acute diastolic heart failure. 3. Hyperbilirubinemia. 4. Atrial fibrillation. 5. Obstructive sleep apnea. PLAN: I have been asked to visit with Tiffanie at bedside this morning. She seemed to be mentally with it this morning, imparted she actually initially consulted with Dr. Andre Tamayo in mid May. She was more recently seen by our physician trim mechanic, Rosalee Tomlinson, on ___ with laboratories to further workup the possibility of autoimmune hemolytic anemia. She is certainly retic-ing at a pretty high rate, but I have not seen a direct or indirect Catina to verify the presence of warm antibody. That said, I would like the laboratories complete including daily peripheral blood counts, reticulocyte count and a test to be done later on today Include direct, indirect Catina, LDH, retic count and haptoglobin if not done. Her hemoglobin at the present time is relatively stable and we will hold off on initiating steroids until I am convinced that she is actively hemolyzing. In the meantime, however, start folic acid 1 mg p.o. daily. I will continue to follow her periodically during her hospitalization and advise you of treatments to come when necessary. If there are any questions or concerns, please feel free to contact me at any time.
--- NOTE | 2020-07-06 14:00 | Medical Student Progress Note ---
Date of Service July 06, 2020 Assessment & Plan (1) Altered mental status: This has resolved and she is alert and shows no signs of AMS. -Multiple possible etiologies and multifactorial. -We will hold her usual Nucynta. Unlikely culprit for AMS as she takes this regularly. -Found to have a low glucose on admission in the ED. Possible cause of acute AMS. It is unlikely that this would cause an AMS over the 2 days that this patient experienced, as this seems like it would cause episodic AMS. -Will discharge tomorrow if no changes overnight. (2) Acute diastolic heart failure: -Evidenced by increased BNP and pleural edema in ED. -Possible diagnosis. Admitted for same in April with some improvement with diuresis -Low Na, heart healthy, fluid restricted diet. Counseled at bedside on diet changes she can make to prevent fluid retention. (3) Hyperbilirubinemia: -Suspect most likely secondary to her ongoing hemolytic anemia. -Dr. Zavaleta evaluated her and is looking into autoimmune hemolytic anemia. -LDH elevated (613) -No jaundice on exam -Hypervolemia possible causing some liver congestion causing rise but considered less likely given isolated rise in Bilirubin -No excessive acetaminophen use -No obstructive cause seen on CT (4) Hypokalemia: Likely secondary to Lasix use. Unable to tolerate IV replacement in the ER. Increase potassium supplementation to 40 meq BID (5) Obstructive sleep apnea: CPAP HS (6) Atrial fibrillation: Continue anticoagulation with apixaban 2.5 mg p.o. twice daily Rate control with digoxin 125 mcg p.o. daily Atrial fibrillation type: unspecified Qualified Code(s): I48.91 - Unspecified atrial fibrillation (7) Anemia: Unlikely to be contributing to the patient's clinical picture. Hematology consulted. 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 Actively being followed by Dr. Zavaleta with Hematology. Anemia type: unspecified type Qualified Code(s): D64.9 - Anemia, unspecified (8) Diabetes mellitus, type II: HbA1c 5.0 in April 2020, repeat with a.m. labs. Suggests overtreatment with insulin. We will reduce her Lantus from 42 units to 30 units at bedtime NovoLog ACHS: Goal BSG Range: Low 110 mg/dL, High 140 mg/dL Correction Factor: 20 mg/dL/unit INS:CHO Ratio: 1unit per 6 gms CHO consumed BSGs ACHS if eating, q6h if npo (9) COPD (chronic obstructive pulmonary disease): No acute exacerbation suspected Albuterol as needed (10) GERD (gastroesophageal reflux disease): Continue pantoprazole 40 mg p.o. every morning Esophagitis presence: esophagitis presence not specified Qualified Code(s): K21.9 - Gastro-esophageal reflux disease without esophagitis (11) Depression with anxiety: Continue duloxetine delayed release 60 mg p.o. every morning (12) Spinal stenosis: Continue her usual gabapentin regimen Hold Nucynta currently due to acute confusion (13) Hypothyroidism: TSH 0.59 Continue levothyroxine 50 mcg p.o. every morning Hypothyroidism type: unspecified Qualified Code(s): E03.9 - Hypothyroidism, unspecified (14) DVT prophylaxis: Apixaban as above Admission and Anticipated Discharge Date Admission Date: July 05, 2020 Supervising Attestation I personally examined the patient and verified all olivarez points of history and exam, discussed case, and agree with decision making with Ramiro Lopez MS2 Feeling better. Does not really remember much about what happened yesterday. Was at pain management had to give a urine sampleremembers going to the bathroom but then does not really remember much after that, she notes that she was acting confused and they told her to bring her to the ER, she does remember somewhat being in the car and now she feels totally like herself. She relates that lately she has had a lot of difficulty sleeping, it is hard to pin down exactly how long, because at first she notes that it is only been a few mo nths, but then going back it sounds like it has probably been 6 months or more. Foot and leg pain seems to keep her awake. She tries to lay down sometimes but her feet keep her awakeshe denies racing thoughtsand then eventually she gives up and either plays on the computer or walks around the house. Eventually by 5 AM she is able to lay down, then her wakes her around 11 so that she can start her day as far as her insulins. She does note that yesterday she did have a low sugar, around the time of her altered mental status. Typical day she does eat canned soup more days than not for lunch. Again she feels back to her baseline now. Heme-onc input appreciated. Vitals noted, in general she is awake and alert pleasant no distress. HEENT normocephalic atraumatic mucous membranes moist. Lungs are clear to auscultation bilaterally no rales rhonchi or wheezes good effort. Cardio is distant. Abdomen is soft mild nonspecific left upper quadrant tenderness, extremities show bilateral calf tenderness with no erythema no cords. Neuro shows no focal deficits. Skin does show mild icterus Altered mental statusprobable metabolic encephalopathy in setting of acute diastolic chf, hypoglycemia, Hypokalemia, and hyperbilirubinemiaalthough I suspect that the hypoglycemia, and relative degree of hypoxia from the CHF where the major contributors. She seems to be back at baseline now, seems very sharp mentally. Given that is not entirely clear what all the precipitating factors were, I would like to watch her into tomorrow to ensure stability. Acute on chronic diastolic CHFalmost certainly from sodium intake and soup. Educated on how sodium leads to fluid retention. Seems to be back to baseline now. On room air, would not give additional diuretics beyond her home dosing. CKD 4creatinine bumping around but basically in her baseline range, likely relates to fluid shifting. Probable autoimmune hemolytic anemiaappreciate hematology input. Outpatient follow-up, as long as hemoglobin is stable does not appear to have any need for urgent intervention. Neuropathy/leg painongoing outpatient follow-up. Otherwise as above Dispositionwould like to observe into tomorrow to ensure stability, then anticipate she will be able to go home Subjective Patient in laying in bed in no acute distress. She felt as though her confusion has cleared up. She is CAOx3 and does not seem confused. She has no complaints at this time. She was anxious about what caused her to develop confusion. She notes that she does not remember much of yesterday and the events leading up to coming into the ED. She did mention that when she was being transported to the hospital that her blood sugar was low. She report no recent change in bowel habits, no melena, no blood in stool. No urinary changes or UTI symptoms. Review of Systems Constitutional: no fever, no chills and no weakness Eyes: no problem reported Respiratory: no cough and no dyspnea Cardiovascular: no chest pain and no dyspnea Gastrointestinal: no abdominal pain Genitourinary: no dysuria, no urinary frequency and no urinary incontinence Physical Exam Constitutional: well developed and well nourished; no acute distress Eyes: PERRL, conjunctivae normal, anicteric sclerae Neck: normal visual inspection Respiratory: normal respiratory effort Auscultation: + diminished lung sounds (Bibasal); no crackles and no wheezes Cardiovascular: RRR, no murmur, no edema Gastrointestinal (Abdomen): normal bowel sounds, soft, nontender, no hepatosplenomegaly Musculoskeletal: no cyanosis or clubbing, extremities motor strength 5/5 Skin: no rashes, warm and dry no jaundice Neurologic: moves all extremities and awake; no focal motor deficits and not confused Speech / Cognition: normal speech Psychiatric: A+Ox3, euthymic affect Results & Data ([facility]) Vital Signs (Past 12 Hours) Vital Signs Temp Pulse Pulse Resp BP BP Pulse Ox 07/06/20 12:00 36.5 C 83 18 138/69 91 07/06/20 10:18 57 L 07/06/20 07:32 36.3 C L 85 18 121/77 121/77 97 07/06/20 02:49 36.6 C 72 20 145/79 H 98
[2020-07-06] MEDS ORDERED: DIGOXIN 0.125 MG TAB PO SCH (16:00)
--- NOTE | 2020-07-06 17:56 | Billing Data ---
Date of Service July 06, 2020 Coding Level of Care Code 47974 Subseq Hosp Care Lvl 3
[2020-07-06] MEDS: DICLOFENAC SOD 1% GEL 100 GM TUBE EXT PRN (18:14)
[2020-07-06] MEDS: levETIRAcetam 250 MG TAB PO SCH (20:03)
[2020-07-06] MEDS: ATORVASTATIN 20 MG TAB PO SCH (20:04)
[2020-07-06] MEDS: GABAPENTIN 300 MG CAP PO PRN (20:05)
[2020-07-06] MEDS: INSULIN GLARGINE SOLOSTAR 100 UNITS/ML 3 ML PEN SQ SCH (20:13)
[2020-07-07] MEDS: LEVOTHYROXINE SODIUM 50 MCG TABLET PO SCH (05:32)
[2020-07-07] MEDS: METOPROLOL SUCC 50MG EXT REL TAB PO SCH (08:18)
[2020-07-07] MEDS: APIXABAN 2.5 MG TAB PO SCH (08:19)
[2020-07-07] MEDS: POTASSIUM CHLORIDE CRTAB 20 MEQ TABCR PO SCH (08:19)
[2020-07-07] MEDS: MAGNESIUM OXIDE 400 MG TAB PO SCH (08:19)
[2020-07-07] MEDS: GABAPENTIN 800 MG TAB PO SCH (08:20)
[2020-07-07] MEDS: CLOPIDOGREL BISULFATE 75 MG TAB PO SCH (08:20)
[2020-07-07] MEDS: PANTOprazole 40 MG TAB PO SCH (08:21)
[2020-07-07] MEDS: CHOLECALCIFEROL 1,000 UNITS 25 MCG TAB PO SCH (08:21)
[2020-07-07] MEDS: allopurinoL 300 MG TAB PO SCH (08:22)
[2020-07-07] MEDS: FUROSEMIDE 40 MG in SYRINGE 0 ML IV SCH (08:22)
[2020-07-07] MEDS: DULoxetine HCL 60 MG CAP PO SCH (08:22)
[2020-07-07] MEDS: ISOSORBIDE MONO EXTENDED REL 30 MG TABCR PO SCH (08:22)
[2020-07-07] MEDS: INSULIN ASPART 100 UNITS/ML 3 ML PEN SC SCH ×2 (08:28→12:24)
[2020-07-07 09:18] LABS: BUN Creatinine Ratio 20.4 (10-20); Calcium 8.4 mg/dl (8.5-10.1); Creatinine Clr Calc Pharmacy 20.8 ml/min; Est GFR (African American) 27.6; Est GFR (Non-African American) 23.8; Potassium 4.2 mmol/L (3.5-5.1)
--- NOTE | 2020-07-07 10:04 | Discharge Summary ---
Date of Service July 07, 2020 Admission HPI Per Admitting Provider Tiffanie Porter is an 85 yo female who presents to the ER on advice of her PCP due to jaundice. The patient does note increased confusion over the past 2 days. She takes Nucynta as needed for back pain and does note she took this yesterday and today and her agrees that her increased confusion may be due to this however history taking is not clear but this has been a concern in the past. She denies any worsening shortness of breath, weight gain, leg swelling (although notes her legs feel tighter and more painful), presyncope, syncope, orthopnea or PND. She was admitted from May 03-2020 due to similar symptoms and diagnosed with toxic encephalopathy and chronic diastolic congestive heart failure. Her bilirubin however on medication was not elevated. In the ER bilirubin 5.6 from 1.2 on June 26. No obstructive cause was seen on CT. She denies any abdominal pain, nausea, vomiting, fever, chills. She denies any alcohol use. She reports taking acetaminophen 1300 mg p.o. at bedtime but none during the daytime. Of note she does have a history of unspecified hemolytic anemia. Last seen by hematology in May with ongoing workup recommended at that time - I am unclear whether this was performed or if a hemolytic anemia was further clarified. Admission Exam Per Admitting Provider Constitutional: well developed and well nourished; no acute distress Eyes: PERRL, conjunctivae normal, anicteric sclerae ENMT: external ear and nose normal, oropharynx normal Respiratory: normal respiratory effort Auscultation: + diminished lung sounds (Bibasal); no crackles and no wheezes Cardiovascular: RRR, no murmur, no edema Gastrointestinal (Abdomen): normal bowel sounds, soft, nontender, no hepatosplenomegaly Musculoskeletal: no cyanosis or clubbing, extremities motor strength 5/5 Skin: no rashes, warm and dry Neurologic: moves all extremities and awake; no focal motor deficits and not confused Speech / Cognition: normal speech Motor/Sensory: no tremor and no pronator drift Psychiatric: A+Ox3, euthymic affect Principal Diagnosis AMS 2/2 metabolic encephalopathy in setting of acute diastolic chf, hypoglycemia, Hypokalemia, and hyperbilirubinemia Discharge Exam General: No acute distress HEENT: Normocephalic atraumatic Neck: Normal visual inspection, trachea midline Cardiac: Regular rate and rhythm I did not appreciate significant murmurs rubs or gallops normal S1, normal S2, negative pedal edema, negative calf tenderness Respiratory: Clear to auscultation bilaterally with medical chest expansion did not appreciate significant wheezes, rales or rhonchi Neuro: Alert and oriented x4 Psych: Calm cooperative with interview Discharge Data Allergies Allergy/AdvReac Type Severity Reaction Status Date / Time shellfish derived Allergy Severe ANAPHYLAXIS Verified 07/05/20 14:11 iodine Allergy Intermediate ANAPHYLAXIS Verified 07/05/20 14:11 lisinopril Allergy Unknown Verified 07/05/20 14:11 oxybutynin [From Ditropan] Allergy Unknown Verified 07/05/20 14:11 sertraline [From Zoloft] Allergy Unknown Verified 07/05/20 14:11 paroxetine AdvReac Unknown GI UPSET Verified 07/05/20 14:11 Consultations 07/05/20 13:53 ED Decision to Admit Stat 07/05/20 14:51 Consult Hematology Routine Ordered Studies 07/05/20 12:39 CT abd pelvis wo con Stat 07/05/20 12:40 CT cervical spine wo con Stat CT head/brain wo con Stat Hospital Course (1) Altered mental status: Presenting complaint, likely secondary to metabolic encephalopathy in the setting of acute diastolic CHF, hyperglycemia, hypokalemia, and hyperbilirubinemia. Upon admission to the hospital, and stabilization of her various comorbid conditions she improved significantly. At present she seems back to baseline and alert and oriented. On discharge. No signs of no signs of AMS. (2) Acute diastolic heart failure: Increased BNP and signs of pulmonary edema on admission. Diuresed with IV furosemide 40 mg twice daily while hospitalized -Low Na, heart healthy, fluid restricted diet. Counseled at bedside on diet changes she can make to prevent fluid retention. -Resume home furosemide 80 mg p.o. twice daily (3) Hyperbilirubinemia: Suspect most likely secondary to her ongoing hemolytic anemia. Hematology oncology was consulted while she was admitted, recommending further work-up as an outpatient. She had no jaundice on exam, No obstructive cause seen on CT -No excessive acetaminophen use (4) Hypokalemia: Likely secondary to Lasix use. Unable to tolerate IV replacement in the ER. Increase potassium supplementation to 40 meq BID (5) Obstructive sleep apnea: CPAP HS (6) Atrial fibrillation: Continue anticoagulation with apixaban 2.5 mg p.o. twice daily -Rate control with digoxin 125 mcg p.o. daily (7) Anemia: Unlikely to be contributing to the patient's clinical picture. Hematology consulted Possible 2/2 autoimmune hemolytic anemia, has not been completely worked up. -Actively being followed by Dr. Zavaleta with Hematology. (8) Diabetes mellitus, type II: HbA1c 5.0 in April 2020, repeat with a.m. labs. Suggests overtreatment with insulin. We will reduce her Lantus from 42 units to 30 units at bedtime NovoLog ACHS: Goal BSG Range: Low 110 mg/dL, High 140 mg/dL Correction Factor: 20 mg/dL/unit INS:CHO Ratio: 1unit per 6 gms CHO consumed BSGs ACHS if eating, q6h if npo (9) COPD (chronic obstructive pulmonary disease): Not in acute exacerbation suspected (10) GERD (gastroesophageal reflux disease): Continued pantoprazole 40 mg p.o. every morning (11) Depression with anxiety: Continued duloxetine delayed release 60 mg p.o. every morning (12) Spinal stenosis: Continued her usual gabapentin regimen held Nucynta currently due to acute confusion, resumed on d/c (13) Hypothyroidism: TSH 0.59 Continue levothyroxine 50 mcg p.o. every morning (14) DVT prophylaxis: Apixaban as above Total Time Total Time Spent Total Time Spent (In Minutes): <30 Discharge Plan Discharge Items Patient Disposition: Home - Home Health Services Reason For Visit: HYPOXIA, ACUTE CHF, HYPERBILIRUBINEMIA Discharge Diagnosis: AMS 2/2 metabolic encephalopathy in setting of acute diastolic chf, hypoglycemia, Hypokalemia, and hyperbilirubinemia Activity: Resume your previous activity Non-emergency contact: Primary Care Provider Call non-emergency contact if: you have any medication questions, your pain is not controlled and your temperature is above 101 Follow-up/Referrals: Domi Wetzel DO [Primary Care Provider] - Diet: Carb Consistent or DM2, Heart Healthy and Low Sodium (2gm) Addtl Attending Provider Instructions: Care instructions: You were admitted to [facility] for treatment of altered mental status, this was thought to be secondary to low blood sugar. While hospitalized we performed a number of different tests which were all within normal limits with the exception of your known abnormalities related to your evaluations by Dr. Zavaleta. We made some medication adjustments while you were hospitalized we decreased the dose of your long-acting insulin to 30 units in the evening. Please adjust your insulin regimen accordingly -Stop taking 42 units of glargine in the evening, start taking 30 units in the evening. A discharge summary will be sent to your primary care physician to ensure continuity of care. Please bring this discharge summary with you to your next office appointment so that your provider can review it at that time. Follow-up appointments: - Keep all your follow-up appointments as already scheduled. If you cannot make an appointment, notify your provider. - Please call to request a follow-up appointment with your primary care physician within one week of discharge. Please let us know if you are unable to obtain an appointment Follow-up labs: - Please go to a lab nearest you and obtain the requested lab work. Please have this completed at least 3 hours before your doctor's appointment (or the day before your appointment if possible). Medications: - Your medication list has been reviewed and reconciled upon discharge to ensure accuracy and continuity of care. - You are provided with a list of all your current medications at this time. Please review this list closely and make note of any changes. - Please take all of your medications exactly as prescribed. - Tell your primary care provider if you cannot afford your medications. - Call your primary care provider if you are having any side effects or any other problems. - Call your primary care provider before taking any over the counter medications or supplements, including herbals and vitamins, because some of these may interact with your current medications and/or make your symptoms worse. Symptoms: Please call your primary care provider for symptoms including, but not limited to: fevers (temperatures greater than 100.4), chills, intractable nausea or vomiting, diarrhea, rash, shortness of breath, bleeding, pain, or if you experience any worsening of the symptoms that brought you to the hospital. For EMERGENCY and VERY SERIOUS health-related issues, such as chest pain, shortness of breath, or sudden onset of the symptoms that brought you to the hospital, you may need to call 911 or go directly to the Emergency Room It has been our privilege to take care of you during your hospital stay. And Above All Else Feel Better! Best Wishes, Trent Daly MD PGY2 Resident, Family & Community Medicine [facility] FCM Residency at [facility] [place] [id number] [facility], [address] MC: [address] [place] [address] Pending Studies at Discharge: No Stand-Alone Forms: My [facility], Smoking Cessation Medications and DC Order Prescriptions: New Lantus Solostar U-100 Insulin 100 unit/mL (3 mL) Insulin Pen 30 unit subcut HS Qty: 15 RF: 0 Continued metoprolol succinate 50 mg tablet extended release 24 hr 100 mg PO BID Qty: 360 RF: 3 levothyroxine 50 mcg tablet 50 mcg PO QAM 30 Days Qty: 30 RF: 5 digoxin 125 mcg (0.125 mg) tablet 125 mcg PO QAM Qty: 90 RF: 1 fluticasone propionate 50 mcg/actuation spray,suspension 1 spray intranasal BID PRN (Reason: allergy symptoms) Qty: 16 RF: 1 gabapentin 300 mg capsule 300 mg PO HS PRN (Reason: pain, severe) Qty: 90 RF: 1 clopidogrel [Plavix] 75 mg tablet 75 mg PO DAILY Qty: 90 RF: 1 pantoprazole 40 mg tablet,delayed release (DR/EC) 40 mg PO QAM Qty: 90 RF: 1 allopurinol 100 mg tablet 300 mg PO QAM Qty: 270 RF: 1 diclofenac sodium [Voltaren] 1 % gel 2 g TOPICAL HS PRN (Reason: Pain) Qty: 100 RF: 3 gabapentin 800 mg tablet 800 mg PO TID 90 Days Qty: 270 RF: 1 duloxetine 60 mg capsule,delayed release(DR/EC) 60 mg PO QAM Qty: 90 RF: 1 potassium chloride 20 mEq tablet extended release 20 meq PO BID RF: 0 cholecalciferol (vitamin D3) [Vitamin D3] 25 mcg (1,000 unit) tablet 2,000 unit PO QAM RF: 0 Novolog Flexpen U-100 Insulin 100 unit/mL (3 mL) insulin pen 7 - 10 unit subcut TIDM Qty: 45 RF: 1 magnesium oxide 400 mg magnesium tablet 400 mg PO BID Qty: 90 RF: 1 lidocaine 4 % gel 1 appln TOP TID PRN (Reason: right lower leg pain) Qty: 30 RF: 0 acetaminophen [Tylenol Arthritis Pain] 650 mg tablet extended release 1,300 mg PO HS RF: 0 isosorbide mononitrate 30 mg tablet extended release 24 hr 30 mg PO QAM Qty: 90 RF: 1 albuterol sulfate [ProAir HFA] 90 mcg/actuation HFA aerosol inhaler 1 - 2 puffs INH Q4H PRN (Reason: shortness of breath or wheezing) Qty: 6.7 RF: 3 levetiracetam 250 mg tablet 250 mg PO HS Qty: 30 RF: 2 furosemide 40 mg tablet 80 mg PO BID Qty: 270 RF: 1 atorvastatin 20 mg tablet 20 mg PO QPM RF: 0 Nucynta 50 mg tablet 100 mg PO BID PRN (Reason: pain) RF: 0 Eliquis 2.5 mg tablet 2.5 mg PO BID RF: 0 Discontinued Lantus Solostar U-100 Insulin 100 unit/mL (3 mL) insulin pen 42 unit subcut HS Qty: 15 RF: 4 Discharge Orders: Discharge Order (Routine); Ordered 07/07/20 Ordered By: Trent Daly Admission Data Admit Date/Time: 07/05/20 14:44 Attending Provider: Julián Healy Admit Provider: Dm Tsang Primary Care Provider: Domi Wetzel Other Providers: Dm Tsang ; Gary Zavaleta V. ; Jesus Blanco [facility] Other Interventions: Discharge Summary Assessment (RN) Last Done: 07/07/20 12:13 Supervising Physician Co-Signing Physician Notes I personally examined the patient and verified all olivarez points of history and exam, discussed case, and agree with decision making with Dr Daly Feeling better, very much would like to go home. Breathing okay. Notes she would like to go to an Easter dinner tomorrow, but then on directed questioning admits that she should not be eating ham Vitals noted, in general she is awake and alert pleasant no distress. HEENT normocephalic atraumatic mucous membranes moist. Breathing unlabored no accessory muscle use good effort. Skin shows no rashes no pallor or icterus. Altered mental statusprobable metabolic encephalopathy in setting of acute diastolic chf, hypoglycemia, Hypokalemia, and hyperbilirubinemiaalthough I suspect that the hypoglycemia, and relative degree of hypoxia from the CHF where the major contributors. Definitely stable and at baseline Acute on chronic diastolic CHFalmost certainly from sodium intake and soup. Educated on how sodium leads to fluid retention. Continue home dosing of diuretics, although discussed with her that over time if she is more consistent with sodium restriction, it is rationally possible that her dosing might be able to be reduced CKD 4creatinine bumping around but basically in her baseline range, outpatient follow-up in this regard, would recommend a basic metabolic panel in the next week Probable autoimmune hemolytic anemiaappreciate hematology input. Outpatient follow-up, as long as hemoglobin is stable does not appear to have any need for urgent intervention. Outpatient hematology follow-up (already scheduled) Neuropathy/leg painongoing outpatient follow-up. Otherwise as above Dispositionstable for home Resident Activity Tracking Resident Involvement: Resident Care Provided Care Provided: Adult Hospital Medicine
--- NOTE | 2020-07-07 14:54 | Billing Data ---
Date of Service July 07, 2020 Coding Level of Care Code D/C Day Management <30 mins
== END 2020-07-07 13:14 | disposition home health service (06) | DRG 291 ==
LOC: ED 12:23 → SUATTDRO 14:44 → 2N 14:44

== ENCOUNTER 2020-08-03 13:49 | Observation (INO) ==
--- NOTE | 2020-08-03 14:34 | Emergency Department Note ---
History of Present Illness General Chief complaint: Fall Time Seen by Provider: 08/03/20 14:10 Source: patient History of Present Illness Provider complaint: Fall with back pain Onset (ago): hour(s) Location: back Radiation: non-radiation Pain Consistency: + constant Maximum Pain Intensity: 5 Exacerbated By: + movement Associated symptoms: + headaches; no chest pain, no cough, no fever/chills, no nausea/vomiting, no shortness of breath and no syncope This is an 85-year-old female with a history of spinal stenosis and chronic low back pain managed by pain management presenting after a fall today at 10:00. She is complaining of back pain and headache. She states that she has had weakness in her legs bilaterally for the past 6 months. She has had incidents where her legs buckle out from under her. This is what occurred today. She was walking to the kitchen and her leg started buckling. She grabbed a chair but fell and hit her head and back against an appliance. She did not lose consciousness. She does have urinary incontinence but states that this has been chronic and going on for months. She also states that she has tingling in her legs bilaterally which has also been going on for 6 months. She states she has a bruise to the back where she has pain. She rates it a 5 out of 10 in severity. Is worse with movement. She denies any hip pain. She has had no recent illness. She denies fever, cough or cold symptoms, chest pain, shortness of breath, abdominal pain, vomiting, diarrhea or pain with urination. She has had no fecal incontinence. She denies saddle anesthesia. Home Medications Medication Instructions Recorded Confirmed Type lidocaine 4 % topical gel 1 appln TOP TID PRN #30 gm 01/14/19 08/03/20 Rx albuterol sulfate 90 mcg/actuation 1 - 2 puffs INH Q4H PRN #6.7 gm 04/26/19 08/03/20 Rx aerosol inhaler metoprolol succinate 50 mg 100 mg PO BID #360 tab 11/04/19 08/03/20 Rx tablet,extended release 24 hr levothyroxine 50 mcg tablet 50 mcg PO QAM 30 Days #30 tab 01/03/20 08/03/20 Rx digoxin 125 mcg (0.125 mg) tablet 125 mcg PO QAM #90 tab 01/09/20 08/03/20 Rx fluticasone propionate 50 1 spray INTRANASAL BID PRN #16 g 01/11/20 08/03/20 Rx mcg/actuation nasal spray,suspension gabapentin 300 mg capsule 300 mg PO HS PRN #90 cap 01/24/20 08/03/20 Rx pantoprazole 40 mg tablet,delayed 40 mg PO QAM #90 tab 02/01/20 08/03/20 Rx release allopurinol 100 mg tablet 300 mg PO QAM #270 tab 02/15/20 08/03/20 Rx gabapentin 800 mg tablet 800 mg PO TID 90 Days #270 tab 03/21/20 08/03/20 Rx duloxetine 60 mg capsule,delayed 60 mg PO QAM #90 cap 03/27/20 08/03/20 Rx release isosorbide mononitrate 30 mg 30 mg PO QAM #90 tab 04/30/20 08/03/20 Rx tablet,extended release 24 hr acetaminophen 650 mg 1,300 mg PO HS tab 05/11/20 08/03/20 History tablet,extended release atorvastatin 20 mg tablet 20 mg PO QPM tab 05/11/20 08/03/20 History cholecalciferol (vitamin D3) 25 2,000 unit PO QAM tab 05/11/20 08/03/20 History mcg (1,000 unit) tablet insulin aspart U-100 100 unit/mL 7 - 10 unit SUBCUT TIDM #45 ml 06/01/20 08/03/20 Rx (3 mL) subcutaneous pen Nucynta 100 mg PO BID PRN 06/26/20 08/03/20 History levetiracetam 250 mg tablet 250 mg PO HS #30 tab 06/26/20 08/03/20 Rx magnesium oxide 400 mg PO BID #90 tab 07/03/20 08/03/20 Rx diclofenac sodium 1 % topical gel 2 g TOPICAL HS PRN #100 gm 07/10/20 08/03/20 Rx potassium chloride 20 mEq 20 meq PO BID #90 tab 07/11/20 08/03/20 Rx tablet,extended release furosemide 40 mg tablet 40 - 80 mg PO BID tab 07/16/20 08/03/20 History insulin glargine 100 unit/mL (3 35 unit SUBCUT HS #15 ml 07/25/20 08/03/20 Rx mL) subcutaneous pen Eliquis 2.5 mg PO BID 08/03/20 08/03/20 History clopidogrel [Plavix] 75 mg PO BID 08/03/20 08/03/20 History morphine 15 mg PO BID PRN 08/03/20 08/03/20 History Allergies Allergy/AdvReac Type Severity Reaction Status Date / Time shellfish derived Allergy Severe ANAPHYLAXIS Verified 08/03/20 16:39 iodine Allergy Intermediate ANAPHYLAXIS Verified 08/03/20 16:39 lisinopril Allergy Unknown Verified 08/03/20 16:39 oxybutynin [From Ditropan] Allergy Unknown Verified 08/03/20 16:39 sertraline [From Zoloft] Allergy Unknown Verified 08/03/20 16:39 paroxetine AdvReac Unknown GI UPSET Verified 08/03/20 16:39 Past Med/Surg History Medical History Anemia Chronic macrocytic Asthma Atrial fibrillation CAD (coronary artery disease) Cerebrovascular disease Chronic diastolic congestive heart failure Chronic kidney disease (CKD) Stage III, baseline Cr 1.3-1.5mg/dL. Complicated with normocytic anemia and secondary hyperparathyroidism. Followed by nephrology. COPD (chronic obstructive pulmonary disease) Diabetes mellitus, type II Diabetic peripheral neuropathy Elevated troponin Generalized osteoarthritis CT scan lumbar spine (03/16) severe multilevel spinal stenosis. Cannot perform MRI due to bladder implant. Followed by pain management. Epidural steroid injections with improvement of pain. Evaluated by ortho, decided against surgery. Managed with gabapentin 300mg TID + APAP PRN + tapentadol 50mg BID PRN GERD (gastroesophageal reflux disease) History of gout Managed with allopruinol daily. No recent gouty attacks. Uric acid suppressed 3.4 mg/dl (12/22) History of non-ST elevation myocardial infarction (NSTEMI) x2, 2017 and 2018 Hyperlipidemia Secondary prevention with moderate intensity statin (atorvastatin 20mg daily) Hypertension Managed with furosemide + metoprolol Hypothyroidism Managed with levothyroxine supplementation Lichen planus Macular degeneration Macular degeneration Mitral regurgitation Neurologic gait dysfunction Obstructive sleep apnea Long standing. Managed with CPAP nightly. CPAP titration polysomnography (07/14). Secondary hyperparathyroidism 2/2 CKD stage III. Managed with calcitriol. Followed by nephrology Sensorineural hearing loss (SNHL) of both ears Spinal stenosis Venous insufficiency of both lower extremities Venous stasis ulcers of both lower extremities Vitamin D deficiency Weakness Surgical History H/O colonoscopy History of repair of rectocele S/P breast biopsy S/P section S/P cholecystectomy S/P hysterectomy S/P implantation of urinary electronic stimulator device Family History Father , Age 64 No problems noted. Mother , Age 61 No problems noted. Other Coronary heart disease Denies family history of Ovarian cancer Prostate cancer Crohn's disease Breast cancer Lung cancer Colorectal cancer Social History Smoking Status: Never smoker Second Hand Exposure: No; Hx Alcohol Use: No Hx Substance Use: No Preferred Language: [place] Communication Ability: Effective Visual Impairment: No Limitations Hearing Ability: Normal Electric Tool Repairer Required: No Beliefs That Will Affect Care: None marital status: / Current Living Situation: Spouse current occupational status: retired Feels Safe at Home: Yes Childhood Exposure to Second-Hand Smoke: No Dental Care, Regularly: Yes Physical Activity Frequency: 1-2 Times per Week Physical Activity Frequency Comment: physical therapy Seatbelt Use: always Sunscreen Use: Yes Assistive Devices: Walker Review of Systems See HPI for pertinent positives & negatives. and A total of 10 systems reviewed and were otherwise negative Physical Exam Vital Signs Vital Signs - 24 hr 08/03/20 13:59 08/03/20 14:30 08/03/20 15:01 Temperature 36.9 C Temperature Source Oral Pulse Rate 61 79 62 Pulse Rate from SpO2 Sensor 67 Respiratory Rate 20 21 23 Respiratory Effort / Characteristics Non-Labored Spontaneous Respiratory Depth Normal Blood Pressure 158/63 H 131/90 161/74 H Blood Pressure Mean 94 103 103 Pulse Oximetry 94 92 91 Oxygen Delivery Method Room Air Room Air Room Air Sepsis Recent Fever Within 48 Hours No Sepsis New/Unexplained Change in Mental Status N/A Sepsis Action Taken by Nursing No Action Required 08/03/20 15:59 Temperature Temperature Source Pulse Rate Pulse Rate from SpO2 Sensor 68 Respiratory Rate Respiratory Effort / Characteristics Respiratory Depth Blood Pressure 152/60 H Blood Pressure Mean 90 Pulse Oximetry 95 Oxygen Delivery Method Room Air Sepsis Recent Fever Within 48 Hours Sepsis New/Unexplained Change in Mental Status Sepsis Action Taken by Nursing Constitutional: Vital signs reviewed. Eyes: Pupils are equal round reactive to light. Conjunctiva are noninjected. ENT: Pharynx is clear without erythema or exudate. Mucous membranes are moist. Neck supple without meningeal signs. Respiratory: Clear to auscultation bilaterally. Breath sounds are equal diana aterally. Cardiovascular: Regular rate and rhythm. No rubs or gallops. GI: Soft, nondistended and nontender. Bowel sounds are present. Musculoskeletal: Bilateral peripheral edema. No tenderness to the hips or lower extremities. No tenderness to the thoracic or cervical spine. She does have some tenderness to the mid lumbar spine where she has a large bruise toward the left side. No step-off or deformity is noted. No tenderness to her shoulders or upper extremities. Integumentary: No cyanosis. or jaundice. Neurologic: The patient is awake and alert. Cranial nerves II-XII are intact. Motor is 5 out of 5 all extremities. Sensation is intact to light touch all extremities. Normal speech. Psychiatric: Normal affect. Not anxious appearing. Medical Decision Making Differential Diagnosis Concussion, contusion, ICH, vertebral fracture, cervical fracture, cauda equina syndrome Medical Records Attestation: I reviewed the patient's medical records. I did perform a limited focused review of portions of the patient's old chart on the electronic medical record. The patient was admitted earlier this month for metabolic encephalopathy and hyperbilirubinemia. Home Medications Current Medication List: was personally reviewed by me Laboratory Data Attestation: I reviewed the patient's lab results. Result diagrams: 08/03/20 14:39 08/03/20 14:39 Lab Results 08/03/20 08/03/20 08/03/20 Range/Units 14:39 14:39 14:39 WBC 5.96 (4.8-10.8) K/uL RBC 2.53 L (4.2-5.4) M/uL Hgb 8.3 L (12.0-16.0) g/dL Hct 26.5 L (37-47) % MCV 104.7 H (80-100) fL MCH 32.8 (25-34) pg MCHC 31.3 L (32-36) g/dL RDW Std Deviation 71.8 H (36.4-46.3) fL RDW Coeff of Talia 19.6 H (11.5-14.5) % Plt Count 231 (130-400) K/uL MPV 12.0 H (7.4-10.4) fL Immature Gran % (Auto) 0.5 % Neut % (Auto) 74.2 % Lymph % (Auto) 10.7 % [place] % (Auto) 8.4 % Eos % (Auto) 5.9 % Baso % (Auto) 0.3 % Neut # (Auto) 4.42 (1.4-6.5) K/uL Lymph # (Auto) 0.64 L (1.2-3.4) K/uL [place] # (Auto) 0.50 (0.11-0.59) K/uL Eos # (Auto) 0.35 (0-0.5) K/uL Baso # (Auto) 0.02 (0-0.2) K/uL Immature Gran # (Auto) 0.03 H (0.00-0.02) K/uL PT 11.3 (9.0-12.0) Seconds INR 1.1 (0.9-1.1) APTT 22.5 (21.0-31.0) Seconds PTT Ratio 0.9 Sodium 135 L (136-145) mmol/L Potassium 4.1 (3.5-5.1) mmol/L Chloride 95 L (98-107) mmol/L Carbon Dioxide 36 H (21-32) mmol/L Anion Gap 4.0 (3-11) BUN 25 H (7-18) mg/dl Creatinine 1.70 H (0.6-1.2) mg/dl Est Cr Clr Drug Dosing 22.2 ml/min Est GFR ( Amer) 31.8 Est GFR (Non-Af Amer) 27.4 BUN/Creatinine Ratio 14.6 (10-20) Glucose 213 H (70-99) mg/dl Calcium 9.2 (8.5-10.1) mg/dl Total Bilirubin 1.7 H (0.2-1) mg/dl AST 23 (15-37) U/L ALT 18 (12-78) U/L Alkaline Phosphatase 92 (45-117) U/L Total Protein 6.6 (6.4-8.2) gm/dl Albumin 3.4 (3.4-5.0) gm/dl Globulin 3.2 (2.5-4.0) gm/dl Albumin/Globulin Ratio 1.1 (0.9-2) COVID-19 Eval Order SARS-CoV-2 (PCR) (Negative) Influenza Type A (PCR) (Neg) Influenza Type B (PCR) (Neg) RSV (RT-PCR) (Neg) 08/03/20 08/03/20 Range/Units 16:20 16:20 WBC (4.8-10.8) K/uL RBC (4.2-5.4) M/uL Hgb (12.0-16.0) g/dL Hct (37-47) % MCV (80-100) fL MCH (25-34) pg MCHC (32-36) g/dL RDW Std Deviation (36.4-46.3) fL RDW Coeff of Talia (11.5-14.5) % Plt Count (130-400) K/uL MPV (7.4-10.4) fL Immature Gran % (Auto) % Neut % (Auto) % Lymph % (Auto) % [place] % (Auto) % Eos % (Auto) % Baso % (Auto) % Neut # (Auto) (1.4-6.5) K/uL Lymph # (Auto) (1.2-3.4) K/uL [place] # (Auto) (0.11-0.59) K/uL Eos # (Auto) (0-0.5) K/uL Baso # (Auto) (0-0.2) K/uL Immature Gran # (Auto) (0.00-0.02) K/uL PT (9.0-12.0) Seconds INR (0.9-1.1) APTT (21.0-31.0) Seconds PTT Ratio Sodium (136-145) mmol/L Potassium (3.5-5.1) mmol/L Chloride (98-107) mmol/L Carbon Dioxide (21-32) mmol/L Anion Gap (3-11) BUN (7-18) mg/dl Creatinine (0.6-1.2) mg/dl Est Cr Clr Drug Dosing ml/min Est GFR ( Amer) Est GFR (Non-Af Amer) BUN/Creatinine Ratio (10-20) Glucose (70-99) mg/dl Calcium (8.5-10.1) mg/dl Total Bilirubin (0.2-1) mg/dl AST (15-37) U/L ALT (12-78) U/L Alkaline Phosphatase (45-117) U/L Total Protein (6.4-8.2) gm/dl Albumin (3.4-5.0) gm/dl Globulin (2.5-4.0) gm/dl Albumin/Globulin Ratio (0.9-2) COVID-19 Eval Order CovFluRsv at [facility] SARS-CoV-2 (PCR) NEGATIVE (Negative) Influenza Type A (PCR) Negative (Neg) Influenza Type B (PCR) Negative (Neg) RSV (RT-PCR) Negative (Neg) Imaging Data Radiologist's Impression: Cervical Spine CT 08/03/20 14:18 CT OF THE CERVICAL SPINE CLINICAL HISTORY: Neck pain status post trauma COMPARISON STUDY: 07/05/2020 CT DOSE: 1567.67 mGy.cm TECHNIQUE: CT scan of the cervical spine was performed from the skull base to the thoracic inlet. Images are reviewed in the axial, sagittal, and coronal planes. IV contrast was not administered for this examination. A dose lowering technique was utilized adhering to the principles of ALARA. FINDINGS: The visualized portions of the lung apices reveal no evidence of pneumothorax. There is mild apical septal edema. There is a 3 mm right apical pulmonary nodule. The prevertebral soft tissues are normal. No fractures or subluxations are visualized. There are multilevel degenerative changes IMPRESSION: No evidence of acute fracture or traumatic subluxation. ACT 112: Negative or not required by law. Electronically signed by: Yogesh French M.D. 08/03/2020 3:[address] 08/03/20 14:18 CT head/brain wo con CLINICAL HISTORY: 85 years-old Female with fall eval for bleed. Acute head injury status post fall TECHNIQUE: Multiple axial CT images of the head were obtained without contrast. A dose lowering technique was utilized adhering to the principles of ALARA. COMPARISON: CT head 07/05/2020 FINDINGS: No acute intracranial hemorrhage, midline shift, intracranial mass, hydrocephalus, territorial ischemia or abnormal extra-axial collection. Age- related involutional changes with chronic microvascular ischemic disease. 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 The calvarium is intact. Prior bilateral lens repair. The paranasal sinuses, mastoid air cells, and middle ear cavities are clear. IMPRESSION: Chronic findings as above without acute intracranial abnormality or calvarial fracture. ACT 112: Negative or not required by law. The above report was generated using voice recognition software. It may contain grammatical, syntax or spelling errors. Electronically signed by: Manuel Vargas M.D. 08/03/2020 3:[address] 08/03/20 14:[address] DOSE: HISTORY: Back pain. fall eval for fx TECHNIQUE: Multiaxial CT images of the lumbar spine were performed and refo rmatted in the sagittal and coronal plane without the use of contrast. A dose lowering technique was utilized adhering to the principles of ALARA. COMPARISON: Lumbar spine CT 07/22/2017. FINDINGS: There is an old mild superior endplate compression deformity at L1. No acute fracture or subluxation within the lumbar spine. Mild disc space narrowing at L1-L2. There is moderate disc space narrowing at L4-L5 and severe disc space narrowing at L5-S1 with associated vacuum phenomenon. There are moderate facet degenerative changes within the mid to lower lumbar spine. This is similar to the prior study. There are severe central canal narrowing at L3-L4 and L4-L5 due to the broad-based posterior disc bulges and facet hypertrophy. There is mild ce ntral canal narrowing at L5-S1 and L1-L2. IMPRESSION: 1. No acute fractures within the lumbar spine. 2. No change in the old mild superior endplate compression deformity at L1. 3. Degenerative changes as described above most pronounced at the L3-L4 and L4-5 levels which demonstrates severe central canal narrowing. ACT 112: Negative or not required by law. Electronically signed by: Lucius Tate M.D. 08/03/2020 3:51 PM Pelvis X-Ray 08/03/20 14:18 XR pelvis 1-2V routine HISTORY: 85 years-old Female fall eval for fx acute pelvic pain status post fall COMPARISON: Pelvis radiograph 07/05/2020 TECHNIQUE: AP view of the pelvis FINDINGS: Battery pack projects over the right iliac bone with single stimulator lead projecting over the sacrum. Demineralized appearance of the bones. Advanced intervertebral disc space narrowing of the lumbar spine. Moderate osteoarthritis of the bilateral hips. No acute fracture, dislocation or avascular necrosis. IMPRESSION: No acute fracture or dislocation. ACT 112: Negative or not required by law. The above report was generated using voice recognition software. It may contain grammatical, syntax or spelling errors. Electronically signed by: Manuel Vargas M.D. 08/03/2020 3:12 PM Chest X-Ray 08/03/20 16:38 XR chest 1V portable HISTORY: 85 years-old Female Fall acute chest trauma status post fall COMPARISON: Chest radiograph 07/05/2020 TECHNIQUE: Portable AP view of the chest FINDINGS: Cardiac silhouette is enlarged. Calcified plaque the thoracic aorta. No pneumothorax, pleural effusion, airspace consolidation or overt pulmonary edema. Bones of the chest appear grossly intact. IMPRESSION: Cardiomegaly without acute process. ACT 112: Negative or not required by law. The above report was generated using voice recognition software. It may contain grammatical, syntax or spelling errors. Electronically signed by: Manuel Vargas M.D. 08/03/2020 5:06 PM ECG Data Attestation: I personally reviewed and interpreted this ECG as follows: Indication: + weakness Rate (beats per minute): 70 Rhythm: + atrial fibrillation ECG [place]: + Normal ECG ST segments: + Nonspecific ST abnormalities ECG Findings: no PVCs Head Trauma GCS Score: 15 MDM Narrative I did evaluate the patient as noted above. The patient is presenting with a fall today after her legs gave out. She states that she has been having this problem for 6 months. She does have a history of spinal stenosis. She complains of pain mostly to her back and did hit her head. She is neurologically intact on examination. IV access was established. I did place an order for continuous cardiac monitoring. The monitor showed normal sinus rhythm at a rate of 68 bpm. I did order and personally review the patient's 12-lead EKG as described above. She has some nonspecific ST changes. She denies having any c hest pain or shortness of breath. I did order and personally reviewed the images of the patient's x-rays as described above. She has no signs of pneumonia. She has no fracture to her pelvis. I did order a urine analysis. I did order and review the patient's blood work as noted in the electronic medical record. Her white count is not elevated. She has chronic anemia with a hemoglobin 8.3. This is down from 8.7. Her electrolytes show a sodium of 135, chloride of 35 and bicarb of 36. Creatinine is elevated at 1.7. This is about her baseline. I did order a CT of the head, cervical spine and lumbar spine. I did review the images myself as well as the radiology report as described above. There is no evidence of acute intracranial abnormality. No fracture to the lumbar or cervical spine. I did reassess the patient. I did discuss the test results with her. I did try to ambulate the patient but upon standing from the bed the patient's legs started shaking and she could not stand upright. She will be hospitalized for further care and evaluation. I did speak to the case technician as well as Dr. Tsang who will consult Dr. Samson of orthopedic spine. Impression & Plan Bilateral leg weakness, Anemia, CKD (chronic kidney disease), Ambulatory dysfunction, Fall Discharge Plan Visit Data Chief Complaint: Fall ED Provider: Sam Lyles Discharge Problem: Bilateral leg weakness, Anemia, CKD (chronic kidney disease), Ambulatory dysfunction, Fall Patient Disposition: Being Evaluated by Hospitalist Discharge Instructions Interventions: ED Discharge Assessment Last Done: 08/03/20 18:30
[2020-08-03 14:57] LABS: Basophils # (auto) 0.02 K/uL (0-0.2); Basophils % (auto) 0.3 %; Eosinophils # (auto) 0.35 K/uL (0-0.5); Eosinophils % (auto) 5.9 %; Hematocrit (blood only) 26.5 % (37-47); Hemoglobin 8.3 g/dL (12.0-16.0); Immature Granulocytes # (auto) 0.03 K/uL (0.00-0.02); Immature Granulocytes % (auto) 0.5 %; Lymphocytes # (auto) 0.64 K/uL (1.2-3.4); Lymphocytes % (auto) 10.7 %; Mean Corpuscular Hemoglobin 32.8 pg (25-34); Mean Corpuscular Hgb Conc 31.3 g/dL (32-36); Mean Corpuscular Volume 104.7 fL (80-100); Monocytes % (auto) 8.4 %; Neutrophils # (auto) 4.42 K/uL (1.4-6.5); Neutrophils % (auto) 74.2 %; Platelet Count 231 K/uL (130-400); RDW Coefficient of Variation 19.6 % (11.5-14.5); RDW Standard Deviation 71.8 fL (36.4-46.3); Red Blood Count 2.53 M/uL (4.2-5.4); White Blood Count 5.96 K/uL (4.8-10.8)
[2020-08-03 15:09] LABS: INR 1.1 (0.9-1.1); Partial Thromboplastin Ratio 0.9; Partial Thromboplastin Time 22.5 Seconds (21.0-31.0); Prothrombin Time 11.3 Seconds (9.0-12.0)
--- NOTE | 2020-08-03 15:13 | XRay Report ---
XR pelvis 1-2V routine HISTORY: 85 years-old Female fall eval for fx acute pelvic pain status post fall COMPARISON: Pelvis radiograph 07/05/2020 TECHNIQUE: AP view of the pelvis FINDINGS: Battery pack projects over the right iliac bone with single stimulator lead projecting over the sacru m. Demineralized appearance of the bones. Advanced intervertebral disc space narrowing of the lumbar spine. Moderate osteoarthritis of the bilateral hips. No acute fracture, dislocation or avascular nec rosis. IMPRESSION: No acute fracture or dislocation. ACT 112: Negative or not required by law. The above report was generated using voice recognition software. It may contain grammatical, syntax o r spelling errors. Electronically signed by: Manuel Vargas M.D. 08/03/2020 3:12 PM
[2020-08-03 15:14] LABS: Albumin Level 3.4 gm/dl (3.4-5.0); BUN Creatinine Ratio 14.6 (10-20); Calcium 9.2 mg/dl (8.5-10.1); Creatinine Clr Calc Pharmacy 22.2 ml/min; Est GFR (African American) 31.8; Est GFR (Non-African American) 27.4; Potassium 4.1 mmol/L (3.5-5.1)
[2020-08-03 15:17] LABS: Albumin Globulin Ratio 1.1 (0.9-2); Bilirubin,Total 1.7 mg/dl (0.2-1); Globulin 3.2 gm/dl (2.5-4.0); Total Protein 6.6 gm/dl (6.4-8.2)
--- NOTE | 2020-08-03 15:48 | CT Scan Report ---
CT head/brain wo con CLINICAL HISTORY: 85 years-old Female with fall eval for bleed. Acute head injury status post fall TECHNIQUE: Multiple axial CT images of the head were obtained without contrast. A dose lowering tech nique was utilized adhering to the principles of ALARA. COMPARISON: CT head 07/05/2020 FINDINGS: No acute intracranial hemorrhage, midline shift, intracranial mass, hydrocephalus, territorial ischem ia or abnormal extra-axial collection. Age-related involutional changes with chronic microvascular is chemic disease. 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 The calvarium is intact. P rior bilateral lens repair. The paranasal sinuses, mastoid air cells, and middle ear cavities are jorge ar. IMPRESSION: Chronic findings as above without acute intracranial abnormality or calvarial fracture. ACT 112: Negative or not required by law. The above report was generated using voice recognition software. It may contain grammatical, syntax o r spelling errors. Electronically signed by: Manuel Vargas M.D. 08/03/2020 3:47 PM
--- NOTE | 2020-08-03 15:50 | CT Scan Report ---
CT OF THE CERVICAL SPINE CLINICAL HISTORY: Neck pain status post trauma COMPARISON STUDY: 07/05/2020 CT DOSE: 1567.67 mGy.cm TECHNIQUE: CT scan of the cervical spine was performed from the skull base to the thoracic inlet. Natasha ges are reviewed in the axial, sagittal, and coronal planes. IV contrast was not administered for thi s examination. A dose lowering technique was utilized adhering to the principles of ALARA. FINDINGS: The visualized portions of the lung apices reveal no evidence of pneumothorax. There is mild apical s eptal edema. There is a 3 mm right apical pulmonary nodule. The prevertebral soft tissues are normal. No fractures or subluxations are visualized. There are multilevel degenerative changes IMPRESSION: No evidence of acute fracture or traumatic subluxation. ACT 112: Negative or not required by law. Electronically signed by: Yogesh French M.D. 08/03/2020 3:48 PM
--- NOTE | 2020-08-03 15:52 | CT Scan Report ---
LUMBAR SPINE CT CT DOSE: HISTORY: Back pain. fall eval for fx TECHNIQUE: Multiaxial CT images of the lumbar spine were performed and reformatted in the sagittal an d coronal plane without the use of contrast. A dose lowering technique was utilized adhering to the principles of ALARA. COMPARISON: Lumbar spine CT 07/22/2017. FINDINGS: There is an old mild superior endplate compression deformity at L1. No acute fracture or smalls bluxation within the lumbar spine. Mild disc space narrowing at L1-L2. There is moderate disc space n arrowing at L4-L5 and severe disc space narrowing at L5-S1 with associated vacuum phenomenon. There a re moderate facet degenerative changes within the mid to lower lumbar spine. This is similar to the p rior study. There are severe central canal narrowing at L3-L4 and L4-L5 due to the broad-based casing splitter ior disc bulges and facet hypertrophy. There is mild central canal narrowing at L5-S1 and L1-L2. IMPRESSION: 1. No acute fractures within the lumbar spine. 2. No change in the old mild superior endplate compression deformity at L1. 3. Degenerative changes as described above most pronounced at the L3-L4 and L4-5 levels which demonst rates severe central canal narrowing. ACT 112: Negative or not required by law. Electronically signed by: Lucius Tate M.D. 08/03/2020 3:51 PM
--- NOTE | 2020-08-03 16:07 | Electrocardiogram Report ---
Test Reason : Blood Pressure : / mmHG Vent. Rate : 070 BPM Atrial Rate : 063 BPM P-R Int : 000 ms QRS Dur : 076 ms QT Int : 372 ms P-R-T Axes : 000 008 203 degrees QTc Int : 401 ms Atrial fibrillation Poor R wave progression, consider anterior [place] vs. lead placement vs. LVH Abnormal ECG When compared with ECG of 05-JUL-2020 12:36, No significant change was found Confirmed by Nate Roland ([id number]) on 08/03/2020 4:07:23 PM Referred By: REFERRED SELF Confirmed By:Nate Roland
--- NOTE | 2020-08-03 16:30 | History & Physical Report ---
Date of Service August 03, 2020 Assessment & Plan (1) Ambulatory dysfunction: Suspect multi-factorial from deconditioning, Anemia, Arthritis, iatrogenic (high dose of gabapentin) but certainly spinal stenosis appears to be contributing a lot towards her falls. PT/OT (2) Spinal stenosis: Continue gabapentin Consult ortho spine. 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 Repeat Hgb with AM labs (4) Obstructive sleep apnea: CPAP HS (5) Atrial fibrillation: Hold apixaban pending decision regarding surgery for spinal stenosis Rate control with digoxin 125 mcg p.o. daily and metoprolol succinate 100mg PO BID (6) CAD (coronary artery disease): Continue clopidogrel (unclear why she has BID dosing and will change to daily), Eliquis metoprolol succinate and atorvastatin. (7) Chronic diastolic congestive heart failure: No acute exacerbation suspected. Continue her usual furosemide dosing. (8) COPD (chronic obstructive pulmonary disease): No acute exacerbation suspected Albuterol as needed (9) Chronic kidney disease (CKD): Close to baseline. Repeat with AM labs. (10) Depression with anxiety: Continue duloxetine delayed release 60 mg p.o. every morning (11) Diabetes mellitus, type II: HbA1c 5.5 in July. Suggests overtreatment with insulin. We will reduce her Lantus from 35 units to 20 units at bedtime NovoLog ACHS: Goal BSG Range: Low 110 mg/dL, High 140 mg/dL Correction Factor: 25 mg/dL/unit INS:CHO Ratio: 1unit per 8 gms CHO consumed BSGs ACHS if eating, q6h if npo (12) GERD (gastroesophageal reflux disease): Continue pantoprazole 40mg PO daily (13) History of gout: No acute exacerbation. Continue allopurinol 300mg PO daily (14) Hypertension: Continue metoprolol succinate, ISMN (15) Hypothyroidism: TSH 3.51 Continue levothyroxine 50 mcg PO daily (16) Myoclonus: Continue Keppra 250mg PO HS (17) Peripheral neuropathy: Continue gabapentin and venlafaxine (18) DVT prophylaxis: Restart Eliquis if no surgery planned Admission and Anticipated Discharge Date Admission Date: August 03, 2020 History of Present Illness Chief Complaint: Ambulatory dysfunction, recurrent falls Primary Care Provider: Domi Wetzel DO Amanda Porter is an 85-year-old female who presents to the ER via EMS after a fall at home around 10 AM today. She reports her legs giving way this morning which has been happening a lot lately. Post fall patient is having head, back, bilateral knee and leg pain. No loss of consciousness. She does report urinary urge incontinence which is been longstanding and she relates to Lasix use. No bowel incontinence. She has chronic back pain radiating down both legs which she manages with morphine at night. Current pain severity 5/10. She denies any foot dragging on ambulation. The patient has chronic low back pain with known spinal stenosis. She reports discussing her diagnosis with Dr. Samson in the past and possibly recommending surgery but the patient was not keen on that at this time. Her weakness is progressively got worse since this time. She was admitted in April and earlier this month for confusion suspected related to diastolic heart failure, hypoglycemia, opiate medications. 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 She is not currently on any steroids. No acute fractures were found in the ER imaging. However the patient was unable to ambulate with her knees buckling when she tried to stand up in the emergency room. Therefore she was referred to medicine for admission ongoing management of ambulatory dysfunction. Allergies Allergy/AdvReac Type Severity Reaction Status Date / Time shellfish derived Allergy Severe ANAPHYLAXIS Verified 08/03/20 16:39 iodine Allergy Intermediate ANAPHYLAXIS Verified 08/03/20 16:39 lisinopril Allergy Unknown Unknown Verified 08/04/20 07:16 oxybutynin [From Ditropan] Allergy Unknown Unknown Verified 08/04/20 07:16 sertraline [From Zoloft] Allergy Unknown Unknown Verified 08/04/20 07:16 paroxetine AdvReac Mild GI UPSET Verified 08/04/20 07:16 Home Medications Medication Instructions Recorded Confirmed Type lidocaine 4 % topical gel 1 appln TOP TID PRN #30 gm 01/14/19 08/03/20 Rx albuterol sulfate 90 mcg/actuation 1 - 2 puffs INH Q4H PRN #6.7 gm 04/26/19 08/03/20 Rx aerosol inhaler metoprolol succinate 50 mg 100 mg PO BID #360 tab 11/04/19 08/03/20 Rx tablet,extended release 24 hr levothyroxine 50 mcg tablet 50 mcg PO QAM 30 Days #30 tab 09/29/20 04/30/21 Rx digoxin 125 mcg (0.125 mg) tablet 125 mcg PO QAM #90 tab 01/09/20 08/03/20 Rx fluticasone propionate 50 1 spray INTRANASAL BID PRN #16 g 01/11/20 08/03/20 Rx mcg/actuation nasal spray,suspension gabapentin 300 mg capsule 300 mg PO HS PRN #90 cap 01/24/20 08/03/20 Rx pantoprazole 40 mg tablet,delayed 40 mg PO QAM #90 tab 02/01/20 08/03/20 Rx release allopurinol 100 mg tablet 300 mg PO QAM #270 tab 02/15/20 08/03/20 Rx gabapentin 800 mg tablet 800 mg PO TID 90 Days #270 tab 03/21/20 08/03/20 Rx duloxetine 60 mg capsule,delayed 60 mg PO QAM #90 cap 03/27/20 08/03/20 Rx release isosorbide mononitrate 30 mg 30 mg PO QAM #90 tab 04/30/20 08/03/20 Rx tablet,extended release 24 hr acetaminophen 650 mg 1,300 mg PO HS tab 05/11/20 08/03/20 History tablet,extended release atorvastatin 20 mg tablet 20 mg PO QPM tab 05/11/20 08/03/20 History cholecalciferol (vitamin D3) 25 2,000 unit PO QAM tab 05/11/20 08/03/20 History mcg (1,000 unit) tablet insulin aspart U-100 100 unit/mL 7 - 10 unit SUBCUT TIDM #45 ml 06/01/20 08/03/20 Rx (3 mL) subcutaneous pen Nucynta 100 mg PO BID PRN 06/26/20 08/03/20 History levetiracetam 250 mg tablet 250 mg PO HS #30 tab 06/26/20 08/03/20 Rx magnesium oxide 400 mg PO BID #90 tab 07/03/20 08/03/20 Rx diclofenac sodium 1 % topical gel 2 g TOPICAL HS PRN #100 gm 07/10/20 08/03/20 Rx potassium chloride 20 mEq 20 meq PO BID #90 tab 07/11/20 08/03/20 Rx tablet,extended release furosemide 40 mg tablet 40 - 80 mg PO BID tab 07/16/20 08/03/20 History insulin glargine 100 unit/mL (3 35 unit SUBCUT HS #15 ml 07/25/20 08/03/20 Rx mL) subcutaneous pen Eliquis 2.5 mg PO BID 08/03/20 08/03/20 History clopidogrel [Plavix] 75 mg PO BID 08/03/20 08/03/20 History morphine 15 mg PO BID PRN 08/03/20 08/03/20 History Past Med/Surg History Medical History Anemia Chronic macrocytic Asthma Atrial fibrillation CAD (coronary artery disease) Cerebrovascular disease Chronic diastolic congestive heart failure Chronic kidney disease (CKD) Stage III, baseline Cr 1.3-1.5mg/dL. Complicated with normocytic anemia and secondary hyperparathyroidism. Followed by nephrology. COPD (chronic obstructive pulmonary disease) Diabetes mellitus, type II Diabetic peripheral neuropathy Elevated troponin Generalized osteoarthritis CT scan lumbar spine (03/16) severe multilevel spinal stenosis. Cannot perform MRI due to bladder implant. Followed by pain management. Epidural steroid injections with improvement of pain. Evaluated by ortho, decided against surgery. Managed with gabapentin 300mg TID + APAP PRN + tapentadol 50mg BID PRN GERD (gastroesophageal reflux disease) History of gout Managed with allopruinol daily. No recent gouty attacks. Uric acid suppressed 3.4 mg/dl (12/22) History of non-ST elevation myocardial infarction (NSTEMI) x2, 2017 and 2018 Hyperlipidemia Secondary prevention with moderate intensity statin (atorvastatin 20mg daily) Hypertension Managed with furosemide + metoprolol Hypothyroidism Managed with levothyroxine supplementation Lichen planus Macular degeneration Macular degeneration Mitral regurgitation Neurologic gait dysfunction Obstructive sleep apnea Long standing. Managed with CPAP nightly. CPAP titration polysomnography (07/14). Secondary hyperparathyroidism 2/2 CKD stage III. Managed with calcitriol. Followed by nephrology Sensorineural hearing loss (SNHL) of both ears Spinal stenosis Venous insufficiency of both lower extremities Venous stasis ulcers of both lower extremities Vitamin D deficiency Weakness Surgical History H/O colonoscopy History of repair of rectocele S/P breast biopsy S/P section S/P cholecystectomy S/P hysterectomy S/P implantation of urinary electronic stimulator device Family History Father , Age 64 No problems noted. Mother , Age 61 No problems noted. Other Coronary heart disease Denies family history of Ovarian cancer Prostate cancer Crohn's disease Breast cancer Lung cancer Colorectal cancer Social History Smoking Status: Never smoker Second Hand Exposure: No; Do You Dip or Chew Tobacco: No; Hx Alcohol Use: No Hx Substance Use: No Preferred Language: Thai Communication Ability: Effective Visual Impairment: No Limitations Hearing Ability: Normal Reporting Process Consultant Required: No Beliefs That Will Affect Care: None marital status: / Current Living Situation: Spouse current occupational status: retired Other Information That Helps Us Care for You: No Feels Safe at Home: Yes Safety Concerns: Feels Safe At This Time Childhood Exposure to Second-Hand Smoke: No Dental Care, Regularly: Yes Physical Activity Frequency: 1-2 Times per Week Physical Activity Frequency Comment: physical therapy Seatbelt Use: always Sunscreen Use: Yes Assistive Devices: Walker Review of Systems Review of Systems: All systems reviewed & are unremarkable except as noted in HPI & below Physical Exam Constitutional: well developed; no acute distress Eyes: + anicteric sclerae; normal pupil size ENMT: external ear and nose normal, oropharynx normal Respiratory: normal respiratory effort, lungs clear to auscultation Cardiovascular: RRR, no murmur, no edema Gastrointestinal (Abdomen): normal bowel sounds, soft, nontender, no hepatosplenomegaly Musculoskeletal: Spine: + pain with thoraco-lumbar ROM (Radiating down both legs) Neurologic: moves all extremities, + focal motor deficit (Reduced 3/5 dorsiflexion on right ankle, otherwise 4+/5 bilaterally equal) and awake; not confused Speech / Cognition: normal speech Motor/Sensory: + sensory deficit (Numbness to knees bilaterally equal); no tremor Psychiatric: A+Ox3, euthymic affect Results & Data Results & Data ([facility]) Vital Signs (Past 12 Hours) Vital Signs Temp Pulse Resp BP Pulse Ox 08/03/20 15:59 152/60 H 95 08/03/20 15:01 62 23 161/74 H 91 08/03/20 14:30 79 21 131/90 92 04/30/21 13:59 36.9 C 61 20 158/[address] head/brain wo con IMPRESSION: Chronic findings as above without acute intracranial abnormality or calvarial fracture. CT OF THE CERVICAL SPINE IMPRESSION: No evidence of acute fracture or traumatic subluxation. LUMBAR SPINE CT IMPRESSION: 1. No acute fractures within the lumbar spine. 2. No change in the old mild superior endplate compression deformity at L1. 3. Degenerative changes as described above most pronounced at the L3-L4 and L4-5 levels which demonstrates severe central canal narrowing. XR pelvis 1-2V routine IMPRESSION: No acute fracture or dislocation. Medications Administered ER medications given: None ECG Indication: weakness Rate (beats per minute): 70 Rhythm: atrial fibrillation Findings: + other (Poor R wave progression), + nonspecific-ST abn (Inferiorly) and + T-wave inversion (Inferior) Comparison ECG Date: from (July 05, 2020) Change: no significant change Code Status & VTE Plan Code Status Full VTE Prophylaxis Plan VTE Prophylaxis will be ordered: Yes PG Care Time/CCT Total # of Minutes Spent Total Time Spent with Patient: Total time spent is greater than 50% in coordination of care (as documented) at patient's floor/unit and/or counseling patient: Coding Level of Care Code 07068 OBS Care - Level 3 Diagnoses Ambulatory dysfunction R26.2 Spinal stenosis M48.00 Anemia D64.9 Anemia type: unspecified type Obstructive sleep apnea G47.33 Atrial fibrillation I48.91 Atrial fibrillation type: unspecified CAD (coronary artery disease) I25.10 Chronic diastolic congestive heart failure I50.32 COPD (chronic obstructive pulmonary disease) J44.9 Chronic kidney disease (CKD) N18.9 Depression with anxiety F41.8 Diabetes mellitus, type II E11.9 GERD (gastroesophageal reflux disease) K21.9 Esophagitis presence: esophagitis presence not specified History of gout Z87.39 Hypertension I10 Hypothyroidism E03.9 Hypothyroidism type: unspecified Myoclonus G25.3 Peripheral neuropathy G62.9 DVT prophylaxis Z29.9 (1) Anemia Anemia type: unspecified type Qualified Code(s): D64.9 - Anemia, unspecified (2) Atrial fibrillation Atrial fibrillation type: unspecified Qualified Code(s): I48.91 - Unspecified atrial fibrillation (3) Hypothyroidism Hypothyroidism type: unspecified Qualified Code(s): E03.9 - Hypothyroidism, unspecified (4) GERD (gastroesophageal reflux disease) Esophagitis presence: esophagitis presence not specified Qualified Code(s): K21.9 - Gastro-esophageal reflux disease without esophagitis
--- NOTE | 2020-08-03 17:07 | XRay Report ---
XR chest 1V portable HISTORY: 85 years-old Female Fall acute chest trauma status post fall COMPARISON: Chest radiograph 07/05/2020 TECHNIQUE: Portable AP view of the chest FINDINGS: Cardiac silhouette is enlarged. Calcified plaque the thoracic aorta. No pneumothorax, pleural effusio n, airspace consolidation or overt pulmonary edema. Bones of the chest appear grossly intact. IMPRESSION: Cardiomegaly without acute process. ACT 112: Negative or not required by law. The above report was generated using voice recognition software. It may contain grammatical, syntax o r spelling errors. Electronically signed by: Manuel Vargas M.D. 08/03/2020 5:06 PM
[2020-08-03 17:11] LABS: Influenza A virus by PCR Negative (Neg); Influenza B virus by PCR Negative (Neg); RSV by PCR Negative (Neg); SARS CoV2 RNA(COVID-19) InHosp NEGATIVE (Negative)
[2020-08-03] MEDS ORDERED: GLUCOSE 10 TABS/TUBE PO PRN (20:11)
[2020-08-03] MEDS ORDERED: GLUCOSE 40% GEL 15 GM TUBE PO PRN (20:11)
[2020-08-03] MEDS ORDERED: CARBOHYDRATES FOR HYPOGLYCEMIA PO PRN (20:11)
[2020-08-03] MEDS ORDERED: GLUCAGON FOR INJ 1 MG VIAL SQ PRN (20:11)
[2020-08-03] MEDS ORDERED: DEXTROSE 50% 50 ML SYRINGE IV PRN (20:11)
[2020-08-03] MEDS: ACETAMINOPHEN 500 MG TAB PO SCH (21:47)
[2020-08-03] MEDS: ATORVASTATIN 20 MG TAB PO SCH (21:48)
[2020-08-03] MEDS: levETIRAcetam 250 MG TAB PO SCH (21:48)
[2020-08-03] MEDS: FUROSEMIDE 40 MG TAB PO SCH (21:48)
[2020-08-03] MEDS: GABAPENTIN 800 MG TAB PO SCH (21:48)
[2020-08-03] MEDS: MAGNESIUM OXIDE 400 MG TAB PO SCH (21:49)
[2020-08-03] MEDS: POTASSIUM CHLORIDE CRTAB 20 MEQ TABCR PO SCH (21:49)
[2020-08-03] MEDS: METOPROLOL SUCC 50MG EXT REL TAB PO SCH (21:49)
[2020-08-03] MEDS: INSULIN GLARGINE SOLOSTAR 100 UNITS/ML 3 ML PEN SC SCH (21:53)
[2020-08-03] MEDS: INSULIN ASPART 100 UNITS/ML 3 ML PEN SC SCH (21:54)
[2020-08-03] MEDS: DICLOFENAC SOD 1% GEL 100 GM TUBE EXT PRN (22:20)
[2020-08-04] MEDS: LEVOTHYROXINE SODIUM 50 MCG TABLET PO SCH (04:54)
[2020-08-04] MEDS: GABAPENTIN 300 MG CAP PO PRN ×2 (04:54→21:20)
[2020-08-04] MEDS ORDERED: MoRPHine SULFATE IR 15 MG TAB (IMMEDIATE RELEASE) PO PRN (07:12)
[2020-08-04 07:33] LABS: Basophils # (auto) 0.02 K/uL (0-0.2); Basophils % (auto) 0.4 %; Eosinophils # (auto) 0.37 K/uL (0-0.5); Eosinophils % (auto) 6.5 %; Hematocrit (blood only) 24.7 % (37-47); Hemoglobin 7.9 g/dL (12.0-16.0); Immature Granulocytes # (auto) 0.03 K/uL (0.00-0.02); Immature Granulocytes % (auto) 0.5 %; Lymphocytes # (auto) 0.66 K/uL (1.2-3.4); Lymphocytes % (auto) 11.6 %; Mean Corpuscular Hemoglobin 33.6 pg (25-34); Mean Corpuscular Volume 105.1 fL (80-100); Mean Platelet Volume 10.5 fL (7.4-10.4); Monocytes # (auto) 0.53 K/uL (0.11-0.59); Monocytes % (auto) 9.3 %; Neutrophils # (auto) 4.09 K/uL (1.4-6.5); Neutrophils % (auto) 71.7 %; Platelet Count 190 K/uL (130-400); RDW Coefficient of Variation 19.8 % (11.5-14.5); Red Blood Count 2.35 M/uL (4.2-5.4)
[2020-08-04 07:51] LABS: Macrocytosis Present; Ovalocytes 1+
[2020-08-04 08:01] LABS: BUN Creatinine Ratio 15.1 (10-20); Calcium 8.4 mg/dl (8.5-10.1); Creatinine Clr Calc Pharmacy 21.2 ml/min; Est GFR (Non-African American) 25.9; Potassium 3.8 mmol/L (3.5-5.1)
[2020-08-04] MEDS: ACETAMINOPHEN 500 MG TAB PO SCH ×3 (08:01→21:08)
[2020-08-04] MEDS: CLOPIDOGREL BISULFATE 75 MG TAB PO SCH (08:02)
[2020-08-04] MEDS: DULoxetine HCL 60 MG CAP PO SCH (08:02)
[2020-08-04] MEDS: CHOLECALCIFEROL 1,000 UNITS 25 MCG TAB PO SCH (08:02)
[2020-08-04] MEDS: allopurinoL 300 MG TAB PO SCH (08:02)
[2020-08-04] MEDS: MAGNESIUM OXIDE 400 MG TAB PO SCH ×2 (08:03→21:09)
[2020-08-04] MEDS: GABAPENTIN 800 MG TAB PO SCH ×3 (08:03→21:09)
[2020-08-04] MEDS: ISOSORBIDE MONO EXTENDED REL 30 MG TABCR PO SCH (08:03)
[2020-08-04] MEDS: FUROSEMIDE 40 MG TAB PO SCH ×2 (08:03→21:10)
[2020-08-04] MEDS: METOPROLOL SUCC 50MG EXT REL TAB PO SCH ×2 (08:04→21:09)
[2020-08-04] MEDS: PANTOprazole 40 MG TAB PO SCH (08:04)
[2020-08-04] MEDS: POTASSIUM CHLORIDE CRTAB 20 MEQ TABCR PO SCH ×2 (08:04→21:09)
[2020-08-04] MEDS: INSULIN ASPART 100 UNITS/ML 3 ML PEN SC SCH ×4 (08:41→21:17)
--- NOTE | 2020-08-04 08:43 | Consultation ---
Date of Consultation August 04, 2020 Assessment & Plan (1) Bilateral leg weakness: Patient has severe spinal stenosis at the L3-4, L4-[address] This is consistent with her bilateral lower extremity pain and weakness. We have reviewed options including continued conservative treatment versus ultimate surgical fixation. Patient is adamant she does not want to consider surgical intervention at this point in time. She is interested in meeting again with Dr. Lai of whom she is seen in the past for lumbar injections. She understands she might not be an injection candidate due to her Eliquis and Plavix medications. Medication options might be the better treatment option for her. All questions have been answered in detail. Please do not hesitate to contact us if you have any further questions. Supervising Physician Co-Signing Physician Notes Dr. Randy Samson History of Present Illness This is a pleasant 85-year-old female that we are asked to see regarding lumbar spinal stenosis. Patient has known spinal stenosis. She has seen Dr. Lai several years ago for injections which were successful in relieving her pain. She presents over the hospital with multiple falls recently. The reason she is falling is because her legs feel weak and they give out on her. She has both a cane,walker, and wheelchair at home. Denies bowel or bladder dysfunction or changes. Has pain radiating down both legs equally. Has limitations with walking and standing because of the pain. She reports her family physician Dr. Wetzel has recently placed her on oral morphine at home for pain control she is unable to have an MRI due to a bladder implant. Has multiple medical comorbidities. She is on Eliquis and Plavix in addition to multiple other medications. Attending Physician: Donaldo Lopez, Allergies Allergy/AdvReac Type Severity Reaction Status Date / Time shellfish derived Allergy Severe ANAPHYLAXIS Verified 08/03/20 16:39 iodine Allergy Intermediate ANAPHYLAXIS Verified 08/03/20 16:39 lisinopril Allergy Unknown Unknown Verified 08/04/20 07:16 oxybutynin [From Ditropan] Allergy Unknown Unknown Verified 08/04/20 07:16 sertraline [From Zoloft] Allergy Unknown Unknown Verified 08/04/20 07:16 paroxetine AdvReac Mild GI UPSET Verified 08/04/20 07:16 Home Medications Medication Instructions Recorded Confirmed Type lidocaine 4 % topical gel 1 appln TOP TID PRN #30 gm 10/11/19 04/30/21 Rx albuterol sulfate 90 mcg/actuation 1 - 2 puffs INH Q4H PRN #6.7 gm 04/26/19 08/03/20 Rx aerosol inhaler metoprolol succinate 50 mg 100 mg PO BID #360 tab 11/04/19 08/03/20 Rx tablet,extended release 24 hr levothyroxine 50 mcg tablet 50 mcg PO QAM 30 Days #30 tab 01/03/20 08/03/20 Rx digoxin 125 mcg (0.125 mg) tablet 125 mcg PO QAM #90 tab 01/09/20 08/03/20 Rx fluticasone propionate 50 1 spray INTRANASAL BID PRN #16 g 01/11/20 08/03/20 Rx mcg/actuation nasal spray,suspension gabapentin 300 mg capsule 300 mg PO HS PRN #90 cap 01/24/20 08/03/20 Rx pantoprazole 40 mg tablet,delayed 40 mg PO QAM #90 tab 02/01/20 08/03/20 Rx release allopurinol 100 mg tablet 300 mg PO QAM #270 tab 02/15/20 08/03/20 Rx gabapentin 800 mg tablet 800 mg PO TID 90 Days #270 tab 03/21/20 08/03/20 Rx duloxetine 60 mg capsule,delayed 60 mg PO QAM #90 cap 03/27/20 08/03/20 Rx release isosorbide mononitrate 30 mg 30 mg PO QAM #90 tab 04/30/20 08/03/20 Rx tablet,extended release 24 hr acetaminophen 650 mg 1,300 mg PO HS tab 05/11/20 08/03/20 History tablet,extended release atorvastatin 20 mg tablet 20 mg PO QPM tab 05/11/20 08/03/20 History cholecalciferol (vitamin D3) 25 2,000 unit PO QAM tab 05/11/20 08/03/20 History mcg (1,000 unit) tablet insulin aspart U-100 100 unit/mL 7 - 10 unit SUBCUT TIDM #45 ml 06/01/20 08/03/20 Rx (3 mL) subcutaneous pen Nucynta 100 mg PO BID PRN 06/26/20 08/03/20 History levetiracetam 250 mg tablet 250 mg PO HS #30 tab 06/26/20 08/03/20 Rx magnesium oxide 400 mg PO BID #90 tab 07/03/20 08/03/20 Rx diclofenac sodium 1 % topical gel 2 g TOPICAL HS PRN #100 gm 07/10/20 08/03/20 Rx potassium chloride 20 mEq 20 meq PO BID #90 tab 07/11/20 08/03/20 Rx tablet,extended release furosemide 40 mg tablet 40 - 80 mg PO BID tab 07/16/20 08/03/20 History insulin glargine 100 unit/mL (3 35 unit SUBCUT HS #15 ml 07/25/20 08/03/20 Rx mL) subcutaneous pen Eliquis 2.5 mg PO BID 08/03/20 08/03/20 History clopidogrel [Plavix] 75 mg PO BID 08/03/20 08/03/20 History morphine 15 mg PO BID PRN 08/03/20 08/03/20 History Patient History Medical History Anemia Chronic macrocytic Asthma Atrial fibrillation CAD (coronary artery disease) Cerebrovascular disease Chronic diastolic congestive heart failure Chronic kidney disease (CKD) Stage III, baseline Cr 1.3-1.5mg/dL. Complicated with normocytic anemia and secondary hyperparathyroidism. Followed by nephrology. COPD (chronic obstructive pulmonary disease) Diabetes mellitus, type II Diabetic peripheral neuropathy Elevated troponin Generalized osteoarthritis CT scan lumbar spine (03/16) severe multilevel spinal stenosis. Cannot perform MRI due to bladder implant. Followed by pain management. Epidural steroid injections with improvement of pain. Evaluated by ortho, decided against surgery. Managed with gabapentin 300mg TID + APAP PRN + tapentadol 50mg BID PRN GERD (gastroesophageal reflux disease) History of gout Managed with allopruinol daily. No recent gouty attacks. Uric acid suppressed 3.4 mg/dl (12/22) History of non-ST elevation myocardial infarction (NSTEMI) x2, 2017 and 2018 Hyperlipidemia Secondary prevention with moderate intensity statin (atorvastatin 20mg daily) Hypertension Managed with furosemide + metoprolol Hypothyroidism Managed with levothyroxine supplementation Lichen planus Macular degeneration Macular degeneration Mitral regurgitation Neurologic gait dysfunction Obstructive sleep apnea Long standing. Managed with CPAP nightly. CPAP titration polysomnography (07/14). Secondary hyperparathyroidism 2/2 CKD stage III. Managed with calcitriol. Followed by nephrology Sensorineural hearing loss (SNHL) of both ears Spinal stenosis Venous insufficiency of both lower extremities Venous stasis ulcers of both lower extremities Vitamin D deficiency Weakness Surgical History H/O colonoscopy History of repair of rectocele S/P breast biopsy S/P section S/P cholecystectomy S/P hysterectomy S/P implantation of urinary electronic stimulator device Family History Father , Age 64 No problems noted. Mother , Age 61 No problems noted. Other Coronary heart disease Denies family history of Ovarian cancer Prostate cancer Crohn's disease Breast cancer Lung cancer Colorectal cancer Social History Smoking Status: Never smoker Second Hand Exposure: No; Do You Dip or Chew Tobacco: No; Hx Alcohol Use: No Hx Substance Use: No Preferred Language: Emirati Communication Ability: Effective Visual Impairment: No Limitations Hearing Ability: Normal Sap Basis Required: No Beliefs That Will Affect Care: None marital status: / Current Living Situation: Spouse current occupational status: retired Other Information That Helps Us Care for You: No Feels Safe at Home: Yes Safety Concerns: Feels Safe At This Time Childhood Exposure to Second-Hand Smoke: No Dental Care, Regularly: Yes Physical Activity Frequency: 1-2 Times per Week Physical Activity Frequency Comment: physical therapy Seatbelt Use: always Sunscreen Use: Yes Assistive Devices: Cane, Denture - Upper and Glasses Review of Systems Review of Systems: All systems reviewed & are unremarkable except as noted in HPI & below Physical Exam Physical Exam: Patient is seen in room 354 bed 2 Alert and oriented x3 No acute distress Cooperative with exam She has some ecchymotic bruising over the left lower thoracic region. Nontender to palpation and percussion to the midline thoracolumbar spine Duoderm is over the lower lumbar region Negative logrolling bilaterally Other testing is 5/5 bilateral lower extremities Calves are soft and nontender bilaterally Constitutional: WD/WN, vitals as above average body habitus Eyes: normal visual ta by confrontation ENMT: external ear and nose normal, oropharynx normal Neck: normal visual inspection Respiratory: normal respiratory effort Cardiovascular: Rate/Rhythm: regular rate Extremities: normal capillary refill Chest (Breasts): Chest: normal inspection of chest Gastrointestinal (Abdomen): Inspection/Auscultation: abdomen normal to inspection Musculoskeletal: Extremities: strength 5/5 throughout Shoulder: + ecchymosis Skin: no rashes, warm and dry + ecchymosis Neurologic: normal touch/pain/proprioception and moves all extremities Psychiatric: A+Ox3, euthymic affect Eye Contact: good eye contact Results & Data ([facility]) Vital Signs (Past 12 Hours) Vital Signs Temp Pulse Resp BP Pulse Ox 08/04/20 07:13 36.4 C L 54 L 16 127/81 93 08/03/20 22:13 36.4 C L 69 16 136/83 93 Diagnostic Findings [facility], [id number] CT Scan Report Patient: JULIO C FAULKNER Date: 08/03/20MR#: [id number]: [address] ID:[id number]: Date: 1935[facility] Zip: [place], [place] [address]Qio: 85Location: EDSex: FRoom/Bed:Att Phy:Diagnosis: FALLPri Phy: Domi Wetzel, DOService Date: 08/03/20Fa Phy:Interpreting Phy: Lucius Tate MDAdmit Phy: Ordering Phy: Sam Lyles MD cc: ~ LUMBAR SPINE CT CT DOSE: HISTORY: Back pain. fall eval for fx TECHNIQUE: Multiaxial CT images of the lumbar spine were performed and reformatted in the sagittal and coronal plane without the use of contrast. A dose lowering technique was utilized adhering to the principles of ALARA. COMPARISON: Lumbar spine CT 07/22/2017. FINDINGS: There is an old mild superior endplate compression deformity at L1. No acute fracture or subluxation within the lumbar spine. Mild disc space narrowing at L1-L2. There is moderate disc space narrowing at L4-L5 and severe disc space narrowing at L5-S1 with associated vacuum phenomenon. There are moderate facet degenerative changes within the mid to lower lumbar spine. This is similar to the prior study. There are severe central canal narrowing at L3-L4 and L4-L5 due to the broad-based posterior disc bulges and facet hypertrophy. There is mild central canal narrowing at L5-S1 and L1-L2. IMPRESSION: 1. No acute fractures within the lumbar spine. 2. No change in the old mild superior endplate compression deformity at L1. 3. Degenerative changes as described above most pronounced at the L3-L4 and L4-5 levels which demonstrates severe central canal narrowing. ACT 112: Negative or not required by law. Electronically signed by: Lucius Tate M.D. 08/03/2020 3:51 PM Dictated: 08/03/20 1546Transcribed: 08/03/20 1546
--- NOTE | 2020-08-04 14:24 | Hospitalist Progress Note ---
Date of Service August 04, 2020 Assessment & Plan (1) Ambulatory dysfunction: Appreciate orthopedic evaluation, they agree that the pain is likely secondary to her spinal stenosis. Patient refused any surgical intervention at this time, prefer to be treated with possible repeat injection. As this is not an inpatient procedure, patient can likely be discharged. However, I would like her to see PT/OT to ensure that she is safe for discharge. Patient should be more alert discharge as well therefore, we will hold off on discharge today and readdress in the morning if safe. (2) Spinal stenosis: Continue gabapentin Consult ortho spine. (3) Anemia: Anemia slightly worse today with a hemoglobin of 7.9. Patient is macrocytic. Check iron studies, B12, folate, reticulocyte count. As there is consideration for hemolysis, will check LDH, LFTs, and haptoglobin. (4) Obstructive sleep apnea: CPAP HS (5) Atrial fibrillation: Will restart Eliquis at previous dosing as the patient has refused surgery. Rate control with digoxin 125 mcg p.o. daily and metoprolol succinate 100mg PO BID (6) CAD (coronary artery disease): Continue clopidogrel (unclear why she has BID dosing and will change to daily), Eliquis metoprolol succinate and atorvastatin. (7) Chronic diastolic congestive heart failure: No acute exacerbation suspected. Continue her usual furosemide dosing. (8) COPD (chronic obstructive pulmonary disease): No acute exacerbation suspected Albuterol as needed (9) Chronic kidney disease (CKD): Close to baseline. Repeat with AM labs. (10) Depression with anxiety: Continue duloxetine delayed release 60 mg p.o. every morning (11) Diabetes mellitus, type II: HbA1c 5.5 in July. Suggests overtreatment with insulin. We will reduce her Lantus from 35 units to 20 units at bedtime NovoLog ACHS: Goal BSG Range: Low 110 mg/dL, High 140 mg/dL Correction Factor: 25 mg/dL/unit INS:CHO Ratio: 1unit per 8 gms CHO consumed BSGs ACHS if eating, q6h if npo (12) GERD (gastroesophageal reflux disease): Continue pantoprazole 40mg PO daily (13) History of gout: No acute exacerbation. Continue allopurinol 300mg PO daily (14) Hypertension: Continue metoprolol succinate, ISMN (15) Hypothyroidism: TSH 3.51 Continue levothyroxine 50 mcg PO daily (16) Myoclonus: Continue Keppra 250mg PO HS (17) Peripheral neuropathy: Continue gabapentin and venlafaxine (18) DVT prophylaxis: Eliquis as noted above. Admission and Anticipated Discharge Date Admission Date: August 03, 2020 Subjective Patient seen to be very lethargic when I arrived. She was arousable and able to give some answers but fell asleep again quickly. I discussed with nursing who told me that she was only given Tylenol earlier in the evening but no other narcotics other sedating medications. I do she she is ordered MSIR but it does not appear to have been administered. Physical Exam Constitutional: WD/WN, vitals as above + obese and + lethargic; no acute distress Neck: trachea midline, no thyromegaly Thyroid: normal thyroid Respiratory: normal respiratory effort, lungs clear to auscultation Auscultation: lungs clear to auscultation bilaterally Cardiovascular: RRR, no murmur, no edema Gastrointestinal (Abdomen): Inspection/Auscultation: abdomen normal to inspection Results & Data Results & Data ([facility]) Vital Signs (Past 12 Hours) Vital Signs Temp Pulse Resp BP Pulse Ox 08/04/20 13:35 93 08/04/20 07:13 36.4 C L 54 L 16 127/81 93 PG Care Time/CCT Total # of Minutes Spent Total Time Spent with Patient: Total time spent is greater than 50% in coordination of care (as documented) at patient's floor/unit and/or counseling patient: Coding Level of Care Code 60047 Subseq Hosp Care Lvl 2 Diagnoses Ambulatory dysfunction R26.2 Spinal stenosis M48.00 Anemia D64.9 Anemia type: unspecified type Obstructive sleep apnea G47.33 Atrial fibrillation I48.91 Atrial fibrillation type: unspecified CAD (coronary artery disease) I25.10 Chronic diastolic congestive heart failure I50.32 COPD (chronic obstructive pulmonary disease) J44.9 Chronic kidney disease (CKD) N18.9 Depression with anxiety F41.8 Diabetes mellitus, type II E11.9 GERD (gastroesophageal reflux disease) K21.9 Esophagitis presence: esophagitis presence not specified History of gout Z87.39 Hypertension I10 Hypothyroidism E03.9 Hypothyroidism type: unspecified Myoclonus G25.3 Peripheral neuropathy G62.9 DVT prophylaxis Z29.9 (1) Anemia Anemia type: unspecified type Qualified Code(s): D64.9 - Anemia, unspecified (2) Atrial fibrillation Atrial fibrillation type: unspecified Qualified Code(s): I48.91 - Unspecified atrial fibrillation (3) GERD (gastroesophageal reflux disease) Esophagitis presence: esophagitis presence not specified Qualified Code(s): K21.9 - Gastro-esophageal reflux disease without esophagitis (4) Hypothyroidism Hypothyroidism type: unspecified Qualified Code(s): E03.9 - Hypothyroidism, unspecified
[2020-08-04] MEDS ORDERED: DIGOXIN 0.125 MG TAB PO SCH (16:00)
[2020-08-04] MEDS: DICLOFENAC SOD 1% GEL 100 GM TUBE EXT PRN (21:03)
[2020-08-04] MEDS: APIXABAN 2.5 MG TAB PO SCH (21:09)
[2020-08-04] MEDS: levETIRAcetam 250 MG TAB PO SCH (21:09)
[2020-08-04] MEDS: ATORVASTATIN 20 MG TAB PO SCH (21:10)
[2020-08-04] MEDS: INSULIN GLARGINE SOLOSTAR 100 UNITS/ML 3 ML PEN SC SCH (21:18)
[2020-08-05] MEDS: LEVOTHYROXINE SODIUM 50 MCG TABLET PO SCH (06:00)
[2020-08-05 07:14] LABS: Basophils # (auto) 0.01 K/uL (0-0.2); Basophils % (auto) 0.2 %; Eosinophils # (auto) 0.31 K/uL (0-0.5); Eosinophils % (auto) 6.3 %; Hemoglobin 8.2 g/dL (12.0-16.0); Immature Granulocytes # (auto) 0.03 K/uL (0.00-0.02); Immature Granulocytes % (auto) 0.6 %; Lymphocytes # (auto) 0.56 K/uL (1.2-3.4); Lymphocytes % (auto) 11.4 %; Mean Corpuscular Hemoglobin 33.3 pg (25-34); Mean Corpuscular Hgb Conc 31.5 g/dL (32-36); Mean Corpuscular Volume 105.7 fL (80-100); Mean Platelet Volume 12.9 fL (7.4-10.4); Monocytes # (auto) 0.33 K/uL (0.11-0.59); Monocytes % (auto) 6.7 %; Neutrophils # (auto) 3.68 K/uL (1.4-6.5); Neutrophils % (auto) 74.8 %; Platelet Count 154 K/uL (130-400); RDW Coefficient of Variation 19.4 % (11.5-14.5); RDW Standard Deviation 71.4 fL (36.4-46.3); Red Blood Count 2.46 M/uL (4.2-5.4); Reticulocyte % 7.8 % (0.5-2.0); Reticulocytes # 0.19 10^6/uL (0.02-0.10); White Blood Count 4.92 K/uL (4.8-10.8)
[2020-08-05 07:38] LABS: Creatinine Clr Calc Pharmacy 21.8 ml/min; Est GFR (African American) 31.1; Est GFR (Non-African American) 26.8; Potassium 3.6 mmol/L (3.5-5.1)
[2020-08-05 07:44] LABS: Macrocytosis Present; Ovalocytes 1+; Polychromasia 1+
[2020-08-05 08:13] LABS: Folate (Folic Acid) 14.2 ng/ml (>5.38)
[2020-08-05] MEDS: ACETAMINOPHEN 500 MG TAB PO SCH ×2 (08:44→13:20)
[2020-08-05] MEDS: ISOSORBIDE MONO EXTENDED REL 30 MG TABCR PO SCH (08:45)
[2020-08-05] MEDS: MAGNESIUM OXIDE 400 MG TAB PO SCH (08:45)
[2020-08-05] MEDS: METOPROLOL SUCC 50MG EXT REL TAB PO SCH (08:45)
[2020-08-05] MEDS: APIXABAN 2.5 MG TAB PO SCH (08:46)
[2020-08-05] MEDS: DULoxetine HCL 60 MG CAP PO SCH (08:46)
[2020-08-05] MEDS: GABAPENTIN 800 MG TAB PO SCH ×2 (08:46→13:20)
[2020-08-05] MEDS: POTASSIUM CHLORIDE CRTAB 20 MEQ TABCR PO SCH (08:46)
[2020-08-05] MEDS: FUROSEMIDE 40 MG TAB PO SCH (08:47)
[2020-08-05] MEDS: CLOPIDOGREL BISULFATE 75 MG TAB PO SCH (08:48)
[2020-08-05] MEDS: CHOLECALCIFEROL 1,000 UNITS 25 MCG TAB PO SCH (08:48)
[2020-08-05] MEDS: allopurinoL 300 MG TAB PO SCH (08:48)
[2020-08-05] MEDS: PANTOprazole 40 MG TAB PO SCH (08:53)
[2020-08-05] MEDS: INSULIN ASPART 100 UNITS/ML 3 ML PEN SC SCH ×2 (09:01→13:19)
[2020-08-05 09:41] LABS: Calcium 8.6 mg/dl (8.5-10.1)
[2020-08-05 09:43] LABS: BUN Creatinine Ratio 16.2 (10-20)
[2020-08-05 09:45] LABS: Albumin Level 2.8 gm/dl (3.4-5.0); Bilirubin,Total 1.4 mg/dl (0.2-1); Total Protein 6.2 gm/dl (6.4-8.2)
[2020-08-05 09:47] LABS: Globulin 3.4 gm/dl (2.5-4.0)
[2020-08-05 09:49] LABS: Albumin Globulin Ratio 0.8 (0.9-2)
--- NOTE | 2020-08-05 13:23 | Hospitalist Progress Note ---
Date of Service August 05, 2020 Assessment & Plan (1) Ambulatory dysfunction: Appreciate orthopedic evaluation, they agree that the pain is likely secondary to her spinal stenosis. Patient refused any surgical intervention at this time, prefer to be treated with possible repeat injection. As this is not an inpatient procedure, patient can likely be discharged. However, I would like her to see PT/OT to ensure that she is safe for discharge. Patient was hesitant but now agreeable to acute rehab placement. We are waiting for case management to arrange this. Patient expects that she had a preference for [facility], which is close to her home. (2) Spinal stenosis: Continue gabapentin Consult ortho spine. (3) Anemia: Anemia slightly improved. Patient has no clinical bleeding. Labs so far consistent with hemolysis. We will continue to monitor for possible transfusion if under 7 or symptoms, otherwise can follow-up with Dr. Zavaleta after discharge. (4) Obstructive sleep apnea: CPAP HS (5) Atrial fibrillation: Will restart Eliquis at previous dosing as the patient has refused surgery. Rate control with digoxin 125 mcg p.o. daily and metoprolol succinate 100mg PO BID (6) CAD (coronary artery disease): Continue clopidogrel (unclear why she has BID dosing and will change to daily), Eliquis metoprolol succinate and atorvastatin. (7) Chronic diastolic congestive heart failure: No acute exacerbation suspected. Continue her usual furosemide dosing. (8) COPD (chronic obstructive pulmonary disease): No acute exacerbation suspected Albuterol as needed (9) Chronic kidney disease (CKD): Close to baseline. Repeat with AM labs. (10) Depression with anxiety: Continue duloxetine delayed release 60 mg p.o. every morning (11) Diabetes mellitus, type II: HbA1c 5.5 in July. Suggests overtreatment with insulin. We will reduce her Lantus from 35 units to 20 units at bedtime NovoLog ACHS: Goal BSG Range: Low 110 mg/dL, High 140 mg/dL Correction Factor: 25 mg/dL/unit INS:CHO Ratio: 1unit per 8 gms CHO consumed BSGs ACHS if eating, q6h if npo (12) GERD (gastroesophageal reflux disease): Continue pantoprazole 40mg PO daily (13) History of gout: No acute exacerbation. Continue allopurinol 300mg PO daily (14) Hypertension: Continue metoprolol succinate, ISMN (15) Hypothyroidism: TSH 3.51 Continue levothyroxine 50 mcg PO daily (16) Myoclonus: Continue Keppra 250mg PO HS (17) Peripheral neuropathy: Continue gabapentin and venlafaxine (18) DVT prophylaxis: Eliquis as noted above. Admission and Anticipated Discharge Date Admission Date: August 03, 2020 Subjective Patient seen and examined. She is alert today. She is pleasant and has no complaints. She is having no pain, does tell me this worsens if she tries to ambulate. 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 Follows with Dr. Campos as an outpatient. Physical Exam Constitutional: WD/WN, vitals as above Neck: trachea midline, no thyromegaly Respiratory: normal respiratory effort, lungs clear to auscultation Auscultation: lungs clear to auscultation bilaterally Cardiovascular: RRR, no murmur, no edema Rate/Rhythm: regular rate Heart Sounds: normal S1 and normal S2 Gastrointestinal (Abdomen): normal bowel sounds, soft, nontender, no hepatosplenomegaly Inspection/Auscultation: abdomen normal to inspection Musculoskeletal: no cyanosis or clubbing, extremities motor strength 5/5 Neurologic: PERRL, EOMI, accommodation nl, no face palsy, no dysarthria Results & Data Results & Data ([facility]) Vital Signs (Past 12 Hours) Vital Signs Temp Pulse Pulse Resp BP Pulse Ox 08/05/20 12:15 36.9 C 58 L 16 148/62 H 95 08/05/20 07:11 36.4 C L 65 17 144/71 H 94 PG Care Time/CCT Total # of Minutes Spent Total Time Spent with Patient: Total time spent is greater than 50% in coordination of care (as documented) at patient's floor/unit and/or counseling patient: Coding Level of Care Code 12460 Subseq Obs Care Lvl 2 Diagnoses Ambulatory dysfunction R26.2 Spinal stenosis M48.00 Anemia D64.9 Anemia type: unspecified type Obstructive sleep apnea G47.33 Atrial fibrillation I48.91 Atrial fibrillation type: unspecified CAD (coronary artery disease) I25.10 Chronic diastolic congestive heart failure I50.32 COPD (chronic obstructive pulmonary disease) J44.9 Chronic kidney disease (CKD) N18.9 Depression with anxiety F41.8 Diabetes mellitus, type II E11.9 GERD (gastroesophageal reflux disease) K21.9 Esophagitis presence: esophagitis presence not specified History of gout Z87.39 Hypertension I10 Hypothyroidism E03.9 Hypothyroidism type: unspecified Myoclonus G25.3 Peripheral neuropathy G62.9 DVT prophylaxis Z29.9 (1) Anemia Anemia type: unspecified type Qualified Code(s): D64.9 - Anemia, unspecified (2) Atrial fibrillation Atrial fibrillation type: unspecified Qualified Code(s): I48.91 - Unspecified atrial fibrillation (3) GERD (gastroesophageal reflux disease) Esophagitis presence: esophagitis presence not specified Qualified Code(s): K21.9 - Gastro-esophageal reflux disease without esophagitis (4) Hypothyroidism Hypothyroidism type: unspecified Qualified Code(s): E03.9 - Hypothyroidism, unspecified
--- NOTE | 2020-08-05 14:51 | Discharge Summary ---
Date of Service August 05, 2020 Admission HPI Per Admitting Provider Amanda Porter is an 85-year-old female who presents to the ER via EMS after a fall at home around 10 AM today. She reports her legs giving way this morning which has been happening a lot lately. Post fall patient is having head, back, bilateral knee and leg pain. No loss of consciousness. She does report urinary urge incontinence which is been longstanding and she relates to Lasix use. No bowel incontinence. She has chronic back pain radiating down both legs which she manages with morphine at night. Current pain severity 5/10. She denies any foot dragging on ambulation. The patient has chronic low back pain with known spinal stenosis. She reports discussing her diagnosis with Dr. Samson in the past and possibly recommending surgery but the patient was not keen on that at this time. Her weakness is progressively got worse since this time. She was admitted in April and earlier this month for confusion suspected related to diastolic heart failure, hypoglycemia, opiate medications. 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 She is not currently on any steroids. No acute fractures were found in the ER imaging. However the patient was unable to ambulate with her knees buckling when she tried to stand up in the emergency room. Therefore she was referred to medicine for admission ongoing management of ambulatory dysfunction. Admission Exam Per Admitting Provider Constitutional: well developed; no acute distress Eyes: + anicteric sclerae; normal pupil size ENMT: external ear and nose normal, oropharynx normal Respiratory: normal respiratory effort, lungs clear to auscultation Cardiovascular: RRR, no murmur, no edema Gastrointestinal (Abdomen): normal bowel sounds, soft, nontender, no hepatosplenomegaly Musculoskeletal: Spine: + pain with thoraco-lumbar ROM (Radiating down both legs) Neurologic: moves all extremities, + focal motor deficit (Reduced 3/5 dorsiflexion on right ankle, otherwise 4+/5 bilaterally equal) and awake; not confused Speech / Cognition: normal speech Motor/Sensory: + sensory deficit (Numbness to knees bilaterally equal); no tremor Psychiatric: A+Ox3, euthymic affect Principal Diagnosis 1. Amatory dysfunction 2. Severe spinal stenosis, L3-4, L4-5 levels 3. Rate controlled atrial fibrillation on Eliquis 4. Anemia, history of hemolytic anemia 5. Coronary artery disease by history 6. COPD by history 7. Chronic kidney disease by history 8. Depression with anxiety 9. Type 2 diabetes mellitus, last A1c was 5.5 10. Hypertension 11. Hypothyroidism 12. Peripheral neuropathy Discharge Exam Constitutional WD/WN, vitals as above Neck trachea midline, no thyromegaly Respiratory normal respiratory effort, lungs clear to auscultation Auscultation: lungs clear to auscultation bilaterally Cardiovascular RRR, no murmur, no edema Rate/Rhythm: regular rate Heart Sounds: normal S1 and normal S2 Gastrointestinal (Abdomen) normal bowel sounds, soft, nontender, no hepatosplenomegaly Musculoskeletal no cyanosis or clubbing, extremities motor strength 5/5 Neurologic PERRL, EOMI, accommodation nl, no face palsy, no dysarthria Discharge Data Allergies Allergy/AdvReac Type Severity Reaction Status Date / Time shellfish derived Allergy Severe ANAPHYLAXIS Verified 08/03/20 16:39 iodine Allergy Intermediate ANAPHYLAXIS Verified 08/03/20 16:39 lisinopril Allergy Unknown Unknown Verified 08/04/20 07:16 oxybutynin [From Ditropan] Allergy Unknown Unknown Verified 08/04/20 07:16 sertraline [From Zoloft] Allergy Unknown Unknown Verified 08/04/20 07:16 paroxetine AdvReac Mild GI UPSET Verified 08/04/20 07:16 Consultations 08/03/20 16:13 ED Decision to Admit Stat 08/03/20 19:19 Consult Orthopedic Surgery Routine Ordered Studies 08/03/20 14:18 CT cervical spine wo con Stat CT head/brain wo con Stat CT lumbar spine wo con Stat Hospital Course (1) Ambulatory dysfunction: Patient was initially mated with significant pain and ambulatory dysfunction. Patient does have a history of severe spinal stenosis. Patient was placed in observation. She was seen by orthopedics, once again surgery was offered but the patient has refused this in the past. She wanted to explore possibly getting another spinal injection with her outpatient cloth painter. She did not do well with PT/OT, I thought that her "legs gave out on her "which is similar to her chief complaint. We did have multiple conversations with the patient. She was initially willing to go to acute rehab prior to returning home. However, she is now afraid of anh Covid in a rehab facility and is requesting to be discharged home. Plan today will be to discharge the patient, we will try to get her PT/OT on an outpatient basis. The patient should follow-up with her primary care physician. She also follows with who is her cloth painter and she should be seen there as well. (2) Spinal stenosis: Continue gabapentin Consult ortho spine. (3) Anemia: Anemia slightly improved. Patient has no clinical bleeding. Labs so far consistent with hemolysis. We will continue to monitor for possible transfusion if under 7 or symptoms, otherwise can follow-up with Dr. Zavaleta after discharge. (4) Obstructive sleep apnea: CPAP HS (5) Atrial fibrillation: Will restart Eliquis at previous dosing as the patient has refused surgery. Rate control with digoxin 125 mcg p.o. daily and metoprolol succinate 100mg PO BID (6) CAD (coronary artery disease): Continue clopidogrel (unclear why she has BID dosing and will change to daily), Eliquis metoprolol succinate and atorvastatin. (7) Chronic diastolic congestive heart failure: No acute exacerbation suspected. Continue her usual furosemide dosing. (8) COPD (chronic obstructive pulmonary disease): No acute exacerbation suspected Albuterol as needed (9) Chronic kidney disease (CKD): Close to baseline. Repeat with AM labs. (10) Depression with anxiety: Continue duloxetine delayed release 60 mg p.o. every morning (11) Diabetes mellitus, type II: HbA1c 5.5 in July. Suggests overtreatment with insulin. Patient was on 35 units of Lantus. This was decreased to 20 units. Patient will continue at the lower dose until seen by her outpatient physician. (12) GERD (gastroesophageal reflux disease): Continue pantoprazole 40mg PO daily (13) History of gout: No acute exacerbation. Continue allopurinol 300mg PO daily (14) Hypertension: Continue metoprolol succinate, ISMN (15) Hypothyroidism: TSH 3.51 Continue levothyroxine 50 mcg PO daily (16) Myoclonus: Continue Keppra 250mg PO HS (17) Peripheral neuropathy: Continue gabapentin and venlafaxine (18) DVT prophylaxis: Eliquis as noted above. Total Time Total Time Spent Total Time Spent (In Minutes): 42 Discharge Plan Discharge Items Patient Disposition: Home - Home Health Services Reason For Visit: FALL Activity: Per Instructions section Activity Comment: Ambulates slowly, use rolling walker whenever possible Weightbearing: Full weightbearing Non-emergency contact: Primary Care Provider Call non-emergency contact if: you have any medication questions, your pain is unusual for you and you have a fever Follow-up/Referrals: Madelaine Lai DO [Physician] - Domi Wetzel DO [Primary Care Provider] - Diet: Carb Consistent or DM2 Addtl Attending Provider Instructions: None Pending Studies at Discharge: No Stand-Alone Forms: [facility] [employer], Smoking Cessation Medications and DC Order Prescriptions: Continued metoprolol succinate 50 mg tablet extended release 24 hr 100 mg PO BID Qty: 360 RF: 3 levothyroxine 50 mcg tablet 50 mcg PO QAM 30 Days Qty: 30 RF: 5 digoxin 125 mcg (0.125 mg) tablet 125 mcg PO QAM Qty: 90 RF: 1 fluticasone propionate 50 mcg/actuation spray,suspension 1 spray intranasal BID PRN (Reason: allergy symptoms) Qty: 16 RF: 1 gabapentin 300 mg capsule 300 mg PO HS PRN (Reason: pain, severe) Qty: 90 RF: 1 pantoprazole 40 mg tablet,delayed release (DR/EC) 40 mg PO QAM Qty: 90 RF: 1 allopurinol 100 mg tablet 300 mg PO QAM Qty: 270 RF: 1 gabapentin 800 mg tablet 800 mg PO TID 90 Days Qty: 270 RF: 1 duloxetine 60 mg capsule,delayed release(DR/EC) 60 mg PO QAM Qty: 90 RF: 1 cholecalciferol (vitamin D3) [Vitamin D3] 25 mcg (1,000 unit) tablet 2,000 unit PO QAM RF: 0 Novolog Flexpen U-100 Insulin 100 unit/mL (3 mL) insulin pen 7 - 10 unit subcut TIDM Qty: 45 RF: 1 magnesium oxide 400 mg magnesium tablet 400 mg PO BID Qty: 90 RF: 1 diclofenac sodium [Voltaren] 1 % gel 2 g TOPICAL HS PRN (Reason: Pain) Qty: 100 RF: 3 potassium chloride 20 mEq tablet extended release 20 meq PO BID Qty: 90 RF: 1 lidocaine 4 % gel 1 appln TOP TID PRN (Reason: right lower leg pain) Qty: 30 RF: 0 acetaminophen [Tylenol Arthritis Pain] 650 mg tablet extended release 1,300 mg PO HS RF: 0 furosemide 40 mg tablet 40 - 80 mg PO BID RF: 0 isosorbide mononitrate 30 mg tablet extended release 24 hr 30 mg PO QAM Qty: 90 RF: 1 albuterol sulfate [ProAir HFA] 90 mcg/actuation HFA aerosol inhaler 1 - 2 puffs INH Q4H PRN (Reason: shortness of breath or wheezing) Qty: 6.7 RF: 3 levetiracetam 250 mg tablet 250 mg PO HS Qty: 30 RF: 2 atorvastatin 20 mg tablet 20 mg PO QPM RF: 0 Nucynta 50 mg tablet 100 mg PO BID PRN (Reason: pain) RF: 0 morphine 15 mg tablet 15 mg PO BID PRN (Reason: Pain) RF: 0 Eliquis 2.5 mg tablet 2.5 mg PO BID RF: 0 clopidogrel [Plavix] 75 mg tablet 75 mg PO DAILY Qty: 0 RF: 0 Changed Lantus Solostar U-100 Insulin 100 unit/mL (3 mL) insulin pen 20 unit subcut HS Qty: 15 RF: 0 Discharge Orders: Discharge Order (Routine); Ordered 08/05/20 Ordered By: Donaldo Lopez Admission Data Admit Date/Time: 08/05/20 13:32 Attending Provider: Donaldo Lopez Admit Provider: Dm Tsang Primary Care Provider: Domi Wetzel Other Providers: Dm Tsang ; Randy Samson Home [facility] Coding Level of Care Code D/C Day Management >30 mins Diagnoses Ambulatory dysfunction R26.2 Spinal stenosis M48.00 Anemia D64.9 Anemia type: unspecified type Obstructive sleep apnea G47.33 Atrial fibrillation I48.91 Atrial fibrillation type: unspecified CAD (coronary artery disease) I25.10 Chronic diastolic congestive heart failure I50.32 COPD (chronic obstructive pulmonary disease) J44.9 Chronic kidney disease (CKD) N18.9 Depression with anxiety F41.8 Diabetes mellitus, type II E11.9 GERD (gastroesophageal reflux disease) K21.9 Esophagitis presence: esophagitis presence not specified History of gout Z87.39 Hypertension I10 Hypothyroidism E03.9 Hypothyroidism type: unspecified Myoclonus G25.3 Peripheral neuropathy G62.9 DVT prophylaxis Z29.9
== END 2020-08-05 16:15 | disposition home health service (06) ==
LOC: ED 13:49 → 3W 13:49 → SUATTDRO 16:55 → 3W 18:30

== ENCOUNTER 2020-08-13 11:40 | Inpatient (IN) ==
--- NOTE | 2020-08-13 12:47 | XRay Report ---
XR chest 1V portable CLINICAL HISTORY: Atypical chest pain COMPARISON STUDY: 08/03/2020 FINDINGS: The heart is the upper limits of normal in size. There is no failure. There is no focal pul monary consolidation. There are no pleural effusions.[ IMPRESSION: No active disease in the chest. ACT 112: Negative or not required by law. Electronically signed by: Yogesh French M.D. 08/13/2020 12:46 PM
[2020-08-13 13:11] LABS: Basophils # (auto) 0.01 K/uL (0-0.2); Basophils % (auto) 0.2 %; Eosinophils # (auto) 0.41 K/uL (0-0.5); Eosinophils % (auto) 6.7 %; Hematocrit (blood only) 25.2 % (37-47); Hemoglobin 7.7 g/dL (12.0-16.0); Immature Granulocytes # (auto) 0.04 K/uL (0.00-0.02); Immature Granulocytes % (auto) 0.7 %; Lymphocytes # (auto) 0.73 K/uL (1.2-3.4); Lymphocytes % (auto) 11.9 %; Mean Corpuscular Hemoglobin 33.5 pg (25-34); Mean Corpuscular Hgb Conc 30.6 g/dL (32-36); Mean Corpuscular Volume 109.6 fL (80-100); Mean Platelet Volume 12.7 fL (7.4-10.4); Monocytes # (auto) 0.56 K/uL (0.11-0.59); Monocytes % (auto) 9.2 %; Neutrophils # (auto) 4.37 K/uL (1.4-6.5); Neutrophils % (auto) 71.3 %; Platelet Count 244 K/uL (130-400); RDW Coefficient of Variation 20.6 % (11.5-14.5); RDW Standard Deviation 77.2 fL (36.4-46.3); White Blood Count 6.12 K/uL (4.8-10.8)
[2020-08-13] MEDS ORDERED: SODIUM CHLORIDE 0.9% 250 ML IV PRN (13:11)
[2020-08-13] MEDS ORDERED: PANTOPRAZOLE BOLUS/DRIP 1 EACH IV STA (13:22)
[2020-08-13] MEDS ORDERED: PANTOprazole 80 MG in DEXTROSE 5% 100 ML IV ONE (13:22)
[2020-08-13 13:31] LABS: Alanine Aminotransferase 22 U/L (12-78); Albumin Level 3.6 gm/dl (3.4-5.0); Aspartate Aminotransferase 21 U/L (15-37); BUN Creatinine Ratio 15.6 (10-20); Blood Urea Nitrogen 26 mg/dl (7-18); Calcium 8.9 mg/dl (8.5-10.1); Carbon Dioxide 35 mmol/L (21-32); Chloride 98 mmol/L (98-107); Est GFR (Non-African American) 27.6; Glucose 110 mg/dl (70-99); Lipase 70 U/L (73-393); Potassium 3.4 mmol/L (3.5-5.1); Sodium 138 mmol/L (136-145)
[2020-08-13 13:32] LABS: Anisocytosis Present; Ovalocytes 1+; Polychromasia 1+; Tear Drop Cells 1+
[2020-08-13 13:37] LABS: Albumin Globulin Ratio 1.1 (0.9-2); Alkaline Phosphatase 105 U/L (45-117); Bilirubin,Total 1.6 mg/dl (0.2-1); Creatine Kinase 123 U/L (26-192); Creatine Kinase MB 7.7 ng/ml (0.5-3.6); Globulin 3.4 gm/dl (2.5-4.0); NT Pro B Type Natriuretic Pept 7657 pg/ml (0-1800); Troponin I < 0.015 ng/ml (0-0.045)
[2020-08-13 14:28] LABS: Influenza A virus by PCR Negative (Neg); Influenza B virus by PCR Negative (Neg); RSV by PCR Negative (Neg); SARS CoV2 RNA(COVID-19) InHosp NEGATIVE (Negative)
[2020-08-13] MEDS: PANTOprazole 40 MG in DEXTROSE 5% 100 ML IV SCH ×2 (14:50→21:01)
--- NOTE | 2020-08-13 15:39 | CT Scan Report ---
ABDOMEN AND PELVIS CT WITHOUT CONTRAST CT DOSE: 753.40 mGycm HISTORY: Acute generalized abdominal pain with lower extremity edema Pt c/o abd pain TECHNIQUE: Multiaxial CT images of the abdomen and pelvis were performed without contrast. A dose lo wering technique was utilized adhering to the principles of ALARA. COMPARISON STUDY: CT abdomen and pelvis 07/05/2020 FINDINGS: Small layering pleural effusions have decreased in size from comparison. Minimal bibasilar opacities suggestive of atelectasis. Scattered bibasilar calcified granulomata. No pneumatosis or pne umoperitoneum. Cardiomegaly with coronary arterial and mitral annular calcifications. Decreased atten uation of the cardiac blood pool suggests anemia. The unenhanced spleen, pancreas and adrenal glands are unremarkable. The gallbladder is either contracted or surgically absent. Unremarkable liver. Unremarkable kidneys. No urolith or obstructive uropathy. Unremarkable urinary bladder. Hysterectomy. Calcified plaque of the abdominal aorta without aneurysm. There is no adenopathy. Mild nonspecific distal esophageal wall thickening. No bowel obstruction or bowel wall thickening. Mi ld fecal retention. Normal appendix. Tiny fat filled periumbilical hernia. Mild mesenteric and body w all edema. Contusion of the right flank redemonstrated. A spinal stimulator device battery pack is no emmy within the right flank with single lead distal tip terminating within the presacral tissues. [employer] aracelis L1 compression deformity. Degenerative changes of the spine, pelvis and hips. IMPRESSION: 1. No acute intra-abdominal or intrapelvic abnormality. 2. Improved aeration of the lung bases with decreased size of the small pleural effusions. 3. Additional findings as above. ACT 112: Negative or not required by law. The above report was generated using voice recognition software. It may contain grammatical, syntax o r spelling errors. Electronically signed by: Cheo Vargas M.D. 08/13/2020 3:38 PM
[2020-08-13 15:59] LABS: Appearance Urine Clear (Clear); Bacteria Urine Automated 1+ (Negative); Bilirubin Urine Negative (Negative); Blood Urine Negative (Negative); Cast Urine Automated 0 /lpf (0-5); Color Urine Yellow; Epithelial Cell Urine Auto 0-5 /lpf (0-5); Glucose Urine UA Negative (Negative); Ketones Urine Negative (Negative); Leukocyte Esterase Urine Negative (Negative); Nitrite Urine Positive (Negative); Protein Urine Negative (Negative); RBC Urine Automated 0-4 /hpf (0-4); Urobilinogen Urine Negative (Negative)
--- NOTE | 2020-08-13 15:59 | Emergency Department Note ---
Impression & Plan Atrial fibrillation, Anemia ED Provider Note NAME: JULIO C FAULKNER AGE: 85 SEX: F : 1935 ARRIVES VIA: Walk-In INFORMANT: Patient, ED PROVIDER(S): Miquel Trujillo MD CHIEF COMPLAINT: Unable to urinate HPI: This is an 85-year-old female who with a history of congestive heart failure that is on Lasix who presents to the emergency department concerned that she is in acute renal failure. The patient reports she has not been making any urine. Patient and also reports that the patient had a near syncopal episode yesterday. They report that she became very weak and dizzy and had to sit down. She denies hitting her head or any other injury since the episode. She reports rest made this episode better. She has not taken anything for this. ROS: See above HPI for pertinent positives & negatives. A total of 10 systems reviewed and were otherwise negative. PAST MEDICAL HISTORY: See Below PAST SURGICAL HISTORY: See Below FAMILY HISTORY: See Below SOCIAL HISTORY: See Below HOME MEDICATIONS: See Below ALLERGIES: See Below VITALS: See Below PHYSICAL EXAMINATION: VITAL SIGNS - Vital signs and nursing notes were reviewed. GENERAL - 85-year-old female appearing stated age who is in no acute distress. Communicates well with provider and answers questions appropriately. SKIN - Without rashes. HEAD - NC/AT. EYES - PERRL with EOMI bilaterally. Sclera anicteric. Palpebral conjunctiva pink and moist with no injection noted. EARS - No deformities of external structures noted on gross examination bilaterally. NOSE - Midline and without cyanosis. No epistaxis or purulent drainage noted. Septum midline without deviation or septal hematoma noted. MOUTH/OROPHARYNX - Without perioral cyanosis. Buccal mucosa pink and moist and without leukoplakia. Tongue midline with equal elevation of palate bilaterally. No tonsillar hypertrophy, erythema, or exudates noted. NECK - Neck with FROM. Supple to palpation.No nuchal rigidity. LUNGS - Chest wall symmetric without accessory muscle use, intercostals retractions, or central cyanosis. Normal vesicular breath sounds CTA B/L. No wheezes, rales, or rhonchi appreciated. CARDIAC - RRR with S1/S2. No murmur, rubs, or gallops appreciated. ABDOMEN - Abdominal contour without pulsations or visible masses. BS no rmoactive all four quadrants. No tenderness, palpable masses, hepatosplenomegaly, or ascites noted. RECTAL- No masses noted, brown stool, heme positive EXTREMITIES - No clubbing or peripheral cyanosis. No pretibial edema present. +3/5 radial, posterior tibial, and dorsalis pedis pulses palpated throughout. +5/5 strength noted in UE/LE bilaterally. NEUROLOGIC - Cranial nerves II through XII grossly intact. Sensory intact to light touch throughout. Patellar reflexes +2/4. PSYCH - A&Ox3 and cooperates fully with examiner. Pt is very pleasant and interacts well with examiner. MEDICAL DECISION MAKING: Patient was seen and evaluated as above in room A3. Review was performed of nursing notes and vital signs. I did review pertinent previous visits and patient history. After obtaining a thorough history and physical examination the above work up was performed. This is an 85-year-old female who presents emergency department complaining of not able to urinate. The patient's hemoglobin was found to be 7.7. Based on this she was typed and screened and crossed for 1 unit of packed red blood cells. In addition the patient was also started on a Protonix IV bolus and drip as she is heme positive from below. I did discuss the case with the hospitalist service who did agree to meet the patient. Patient and are in agreement with the treatment plan. An order was placed for continuous cardiac monitoring. The monitor shows a rate of 77 with A Fib rhythm. The patient was evaluated during a period of high volume and high acuity during the global COVID-19 pandemic, and that diagnosis was suspected/considered upon their initial presentation. Their evaluation, treatment and testing was consistent with current guidelines for patients who present with complaints or symptoms that may be related to COVID-19. Patient was seen while provider was wearing PPE. Triage Nursing notes reviewed. Prior medical records reviewed Vital Signs: reviewed and remarkable for no significant abnormalities Differential diagnosis: Infection, dehydration, metabolic abnormality, hypo/hyperglycemia, electrolyte disturbance, anemia, hypoxia, cardiac sources, intracerebral event, toxicologic, neurologic, as well as other pathologies. ER treatment provided: See below Diagnostics interpreted by me: ECG: EKG showing A. fib with slow ventricular response no ST elevation or d epression old anterior infarct QTC is 402 ventricular rate is 57 EKG is compared to 08/03/2020 no significant change was found Laboratory studies: As stated above and show below. Imaging studies: See below Consultation(s): Gastro Hospitalist Past Med/Surg History Medical History Anemia Chronic macrocytic Asthma Atrial fibrillation CAD (coronary artery disease) Cerebrovascular disease Chronic diastolic congestive heart failure Chronic kidney disease (CKD) Stage III, baseline Cr 1.3-1.5mg/dL. Complicated with normocytic anemia and secondary hyperparathyroidism. Followed by nephrology. COPD (chronic obstructive pulmonary disease) Diabetes mellitus, type II Diabetic peripheral neuropathy Elevated troponin Generalized osteoarthritis CT scan lumbar spine (03/16) severe multilevel spinal stenosis. Cannot perform MRI due to bladder implant. Followed by pain management. Epidural steroid injections with improvement of pain. Evaluated by ortho, decided against surgery. Managed with gabapentin 300mg TID + APAP PRN + tapentadol 50mg BID PRN GERD (gastroesophageal reflux disease) History of gout Managed with allopruinol daily. No recent gouty attacks. Uric acid suppressed 3.4 mg/dl (12/22) History of non-ST elevation myocardial infarction (NSTEMI) x2, 2017 and 2018 Hyperlipidemia Secondary prevention with moderate intensity statin (atorvastatin 20mg daily) Hypertension Managed with furosemide + metoprolol Hypothyroidism Managed with levothyroxine supplementation Lichen planus Macular degeneration Macular degeneration Mitral regurgitation Neurologic gait dysfunction Obstructive sleep apnea Long standing. Managed with CPAP nightly. CPAP titration polysomnography (07/14). Secondary hyperparathyroidism 2/2 CKD stage III. Managed with calcitriol. Followed by nephrology Sensorineural hearing loss (SNHL) of both ears Spinal stenosis Venous insufficiency of both lower extremities Venous stasis ulcers of both lower extremities Vitamin D deficiency Weakness Surgical History H/O colonoscopy History of repair of rectocele S/P breast biopsy S/P section S/P cholecystectomy S/P hysterectomy S/P implantation of urinary electronic stimulator device Family History Father , Age 64 No problems noted. Mother , Age 61 No problems noted. Other Coronary heart disease Denies family history of Ovarian cancer Prostate cancer Crohn's disease Breast cancer Lung cancer Colorectal cancer Social History Smoking Status: Never smoker Second Hand Exposure: No; Do You Dip or Chew Tobacco: No; Hx Alcohol Use: No Hx Substance Use: No Preferred Language: Kinyarwanda Communication Ability: Effective Visual Impairment: No Limitations Hearing Ability: Normal Health And Safety Inspector Required: No Beliefs That Will Affect Care: None marital status: / Current Living Situation: Spouse current occupational status: retired Other Information That Helps Us Care for You: No Feels Safe at Home: Yes Safety Concerns: Feels Safe At This Time Childhood Exposure to Second-Hand Smoke: No Dental Care, Regularly: Yes Physical Activity Frequency: 1-2 Times per Week Physical Activity Frequency Comment: physical therapy Seatbelt Use: always Sunscreen Use: Yes Assistive Devices: Glasses and Walker Allergies Allergies Allergy/AdvReac Type Severity Reaction Status Date / Time shellfish derived Allergy Severe ANAPHYLAXIS Verified 08/13/20 14:18 iodine Allergy Intermediate ANAPHYLAXIS Verified 08/13/20 14:18 lisinopril Allergy Unknown Unknown Verified 08/13/20 14:18 oxybutynin [From Ditropan] Allergy Unknown Unknown Verified 08/13/20 14:18 sertraline [From Zoloft] Allergy Unknown Unknown Verified 08/13/20 14:18 paroxetine AdvReac Mild GI UPSET Verified 08/13/20 14:18 Home Meds Home Medications Medication Instructions Recorded Confirmed acetaminophen 650 mg 1,300 mg PO HS tab 05/11/20 08/13/20 tablet,extended release atorvastatin 20 mg tablet 20 mg PO QPM tab 05/11/20 08/13/20 cholecalciferol (vitamin D3) 25 2,000 unit PO QAM tab 05/11/20 08/13/20 mcg (1,000 unit) tablet Nucynta 100 mg PO BID PRN 06/26/20 08/13/20 Previous Rx's Medication Instructions Recorded lidocaine 4 % topical gel 1 appln TOP TID PRN #30 gm 01/14/19 albuterol sulfate 90 mcg/actuation 1 - 2 puffs INH Q4H PRN #6.7 gm 04/26/19 aerosol inhaler metoprolol succinate 50 mg 100 mg PO BID #360 tab 11/04/19 tablet,extended release 24 hr levothyroxine 50 mcg tablet 50 mcg PO QAM 30 Days #30 tab 01/03/20 digoxin 125 mcg (0.125 mg) tablet 125 mcg PO QAM #90 tab 01/09/20 fluticasone propionate 50 1 spray INTRANASAL BID PRN #16 g 01/11/20 mcg/actuation nasal spray,suspension gabapentin 300 mg capsule 300 mg PO HS PRN #90 cap 01/24/20 pantoprazole 40 mg tablet,delayed 40 mg PO QAM #90 tab 02/01/20 release allopurinol 100 mg tablet 300 mg PO QAM #270 tab 02/15/20 gabapentin 800 mg tablet 800 mg PO TID 90 Days #270 tab 03/21/20 duloxetine 60 mg capsule,delayed 60 mg PO QAM #90 cap 03/27/20 release isosorbide mononitrate 30 mg 30 mg PO QAM #90 tab 04/30/20 tablet,extended release 24 hr insulin aspart U-100 100 unit/mL 7 - 10 unit SUBCUT TIDM #45 ml 06/01/20 (3 mL) subcutaneous pen levetiracetam 250 mg tablet 250 mg PO HS #30 tab 06/26/20 magnesium oxide 400 mg PO BID #90 tab 07/03/20 diclofenac sodium 1 % topical gel 2 g TOPICAL HS PRN #100 gm 07/10/20 potassium chloride 20 mEq 20 meq PO BID #90 tab 07/11/20 tablet,extended release Lantus Solostar U-100 Insulin 20 unit SUBCUT HS #15 ml 08/05/20 clopidogrel [Plavix] 75 mg PO DAILY #0 tab 08/05/20 apixaban 2.5 mg tablet 2.5 mg PO BID #180 tab 08/06/20 furosemide 40 mg tablet 40 - 80 mg PO BID #270 tab 08/10/20 Results & Data (ED) Vital Signs Vital Signs - 24 hr 08/13/20 12:15 08/13/20 12:30 08/13/20 12:43 Pulse Rate 57 L 55 L 62 Pulse Rate from SpO2 Sensor 62 57 L 56 L Respiratory Rate 12 8 L 11 L Blood Pressure 142/63 H Blood Pressure Mean 89 Pulse Oximetry 96 92 95 Oxygen Delivery Method Room Air 08/13/20 12:46 08/13/20 13:01 08/13/20 13:17 Pulse Rate 51 L 58 L 63 Pulse Rate from SpO2 Sensor 52 L 57 L 63 Respiratory Rate 13 15 18 Blood Pressure 155/58 H 120/58 L 112/64 Blood Pressure Mean 90 78 80 Pulse Oximetry 95 94 95 Oxygen Delivery Method 08/13/20 13:32 08/13/20 13:47 08/13/20 14:02 Pulse Rate 58 L 47 L 53 L Pulse Rate from SpO2 Sensor 57 L 52 L 51 L Respiratory Rate 15 13 14 Blood Pressure 140/63 196/84 H 181/78 H Blood Pressure Mean 88 121 112 Pulse Oximetry 94 96 93 Oxygen Delivery Method 08/13/20 14:17 08/13/20 14:32 08/13/20 14:46 Pulse Rate 63 52 L 57 L Pulse Rate from SpO2 Sensor 60 48 L 59 L Respiratory Rate 22 22 20 Blood Pressure 189/88 H 189/58 H 191/74 H Blood Pressure Mean 121 101 113 Pulse Oximetry 96 95 92 Oxygen Delivery Method 08/13/20 15:30 08/13/20 15:47 08/13/20 16:02 Pulse Rate 59 L 63 53 L Pulse Rate from SpO2 Sensor 60 Respiratory Rate 20 21 26 H Blood Pressure 117/69 104/36 L Blood Pressure Mean 85 58 Pulse Oximetry 96 Oxygen Delivery Method 08/13/20 16:07 08/13/20 16:16 08/13/20 16:45 Pulse Rate 55 L 56 L 53 L Pulse Rate from SpO2 Sensor 53 L Respiratory Rate 27 H 27 H 16 Blood Pressure 102/72 Blood Pressure Mean 82 76 Pulse Oximetry 76 L 97 Oxygen Delivery Method 08/13/20 16:53 08/13/20 17:01 Pulse Rate 51 L 64 Pulse Rate from SpO2 Sensor 62 54 L Respiratory Rate 12 12 Blood Pressure 160/79 H 149/80 H Blood Pressure Mean 106 103 Pulse Oximetry 93 95 Oxygen Delivery Method Laboratory Data Result diagrams: 08/14/20 05:59 08/14/20 05:59 Lab Results 08/13/20 08/13/20 08/13/20 Range/Units 12:58 12:58 13:22 WBC 6.12 (4.8-10.8) K/uL RBC 2.30 L (4.2-5.4) M/uL Hgb 7.7 L (12.0-16.0) g/dL Hct 25.2 L (37-47) % MCV 109.6 H (80-100) fL MCH 33.5 (25-34) pg MCHC 30.6 L (32-36) g/dL RDW Std Deviation 77.2 H (36.4-46.3) fL RDW Coeff of Talia 20.6 H (11.5-14.5) % Plt Count 244 (130-400) K/uL MPV 12.7 H (7.4-10.4) fL Immature Gran % (Auto) 0.7 % Neut % (Auto) 71.3 % Lymph % (Auto) 11.9 % [place] % (Auto) 9.2 % Eos % (Auto) 6.7 % Baso % (Auto) 0.2 % Neut # (Auto) 4.37 (1.4-6.5) K/uL Lymph # (Auto) 0.73 L (1.2-3.4) K/uL [place] # (Auto) 0.56 (0.11-0.59) K/uL Eos # (Auto) 0.41 (0-0.5) K/uL Baso # (Auto) 0.01 (0-0.2) K/uL Immature Gran # (Auto) 0.04 H (0.00-0.02) K/uL Polychromasia 1+ Anisocytosis Present Tear Drop Cells 1+ Ovalocytes 1+ Sodium 138 (136-145) mmol/L Potassium 3.4 L (3.5-5.1) mmol/L Chloride 98 (98-107) mmol/L Carbon Dioxide 35 H (21-32) mmol/L Anion Gap 5.0 (3-11) BUN 26 H (7-18) mg/dl Creatinine 1.69 H (0.6-1.2) mg/dl Est Cr Clr Drug Dosing Not Reportable Est GFR ( Amer) 32.0 Est GFR (Non-Af Amer) 27.6 BUN/Creatinine Ratio 15.6 (10-20) Glucose 110 H (70-99) mg/dl Calcium 8.9 (8.5-10.1) mg/dl Total Bilirubin 1.6 H (0.2-1) mg/dl AST 21 (15-37) U/L ALT 22 (12-78) U/L Alkaline Phosphatase 105 (45-117) U/L Total Creatine Kinase 123 (26-192) U/L CK-MB (CK-2) 7.7 H (0.5-3.6) ng/ml CK/CKMB % Calc 6.3 H (0-3.0) Troponin I < 0.015 (0-0.045) ng/ml NT-Pro-B Natriuret Pep 7657 H (0-1800) pg/ml Total Protein 7.0 (6.4-8.2) gm/dl Albumin 3.6 (3.4-5.0) gm/dl Globulin 3.4 (2.5-4.0) gm/dl Albumin/Globulin Ratio 1.1 (0.9-2) Lipase 70 L (73-393) U/L Urine Color Urine Appearance (Clear) Urine pH (4.5-7.5) Ur Specific [place] (1.000-1.030) Urine Protein (Negative) Urine Glucose (UA) (Negative) Urine Ketones (Negative) Urine Blood (Negative) Urine Nitrite (Negative) Urine Bilirubin (Negative) Urine Urobilinogen (Negative) Ur Leukocyte Esterase (Negative) Urine WBC (Auto) (0-5) /hpf Urine RBC (Auto) (0-4) /hpf U Hyaline Cast (Auto) (0-5) /lpf U Epithel Cells (Auto) (0-5) /lpf Urine Bacteria (Auto) (Negative) COVID-19 Eval Order CovFluRsv at [facility] SARS-CoV-2 (PCR) (Negative) Influenza Type A (PCR) (Neg) Influenza Type B (PCR) (Neg) RSV (RT-PCR) (Neg) Blood Type Antibody Screen Crossmatch 08/13/20 08/13/20 08/13/20 Range/Units 13:22 13:44 15:49 WBC (4.8-10.8) K/uL RBC (4.2-5.4) M/uL Hgb (12.0-16.0) g/dL Hct (37-47) % MCV (80-100) fL MCH (25-34) pg MCHC (32-36) g/dL RDW Std Deviation (36.4-46.3) fL RDW Coeff of Talia (11.5-14.5) % Plt Count (130-400) K/uL MPV (7.4-10.4) fL Immature Gran % (Auto) % Neut % (Auto) % Lymph % (Auto) % [place] % (Auto) % Eos % (Auto) % Baso % (Auto) % Neut # (Auto) (1.4-6.5) K/uL Lymph # (Auto) (1.2-3.4) K/uL [place] # (Auto) (0.11-0.59) K/uL Eos # (Auto) (0-0.5) K/uL Baso # (Auto) (0-0.2) K/uL Immature Gran # (Auto) (0.00-0.02) K/uL Polychromasia Anisocytosis Tear Drop Cells Ovalocytes Sodium (136-145) mmol/L Potassium (3.5-5.1) mmol/L Chloride (98-107) mmol/L Carbon Dioxide (21-32) mmol/L Anion Gap (3-11) BUN (7-18) mg/dl Creatinine (0.6-1.2) mg/dl Est Cr Clr Drug Dosing Est GFR ( Amer) Est GFR (Non-Af Amer) BUN/Creatinine Ratio (10-20) Glucose (70-99) mg/dl Calcium (8.5-10.1) mg/dl Total Bilirubin (0.2-1) mg/dl AST (15-37) U/L ALT (12-78) U/L Alkaline Phosphatase (45-117) U/L Total Creatine Kinase (26-192) U/L CK-MB (CK-2) (0.5-3.6) ng/ml CK/CKMB % Calc (0-3.0) Troponin I (0-0.045) ng/ml NT-Pro-B Natriuret Pep (0-1800) pg/ml Total Protein (6.4-8.2) gm/dl Albumin (3.4-5.0) gm/dl Globulin (2.5-4.0) gm/dl Albumin/Globulin Ratio (0.9-2) Lipase (73-393) U/L Urine Color Yellow Urine Appearance Clear (Clear) Urine pH 7.0 (4.5-7.5) Ur Specific [place] 1.010 (1.000-1.030) Urine Protein Negative (Negative) Urine Glucose (UA) Negative (Negative) Urine Ketones Negative (Negative) Urine Blood Negative (Negative) Urine Nitrite Positive A (Negative) Urine Bilirubin Negative (Negative) Urine Urobilinogen Negative (Negative) Ur Leukocyte Esterase Negative (Negative) Urine WBC (Auto) 1-5 (0-5) /hpf Urine RBC (Auto) 0-4 (0-4) /hpf U Hyaline Cast (Auto) 0 (0-5) /lpf U Epithel Cells (Auto) 0-5 (0-5) /lpf Urine Bacteria (Auto) 1+ H (Negative) COVID-19 Eval Order SARS-CoV-2 (PCR) NEGATIVE (Negative) Influenza Type A (PCR) Negative (Neg) Influenza Type B (PCR) Negative (Neg) RSV (RT-PCR) Negative (Neg) Blood Type A Positive Antibody Screen NEGATIVE Crossmatch See Detail Administered Medications Acetaminophen (Acetaminophen 325 Mg Tab) 1,300 mg PO HS RODDY Stop: 09/12/20 20:59 Last Admin: 08/13/20 22:01 Dose: 1,300 mg Documented by: [id number] Albuterol (Albuterol Hfa 8 Gm Inhaler) 1 - 2 puffs INH Q4H PRN PRN Reason: SOB/WHEEZING Stop: 09/12/20 21:29 Last Admin: 08/14/20 08:46 Dose: 2 puffs Documented by: [id number] Allopurinol (Allopurinol 300 Mg Tab) [facility] [place] Stop: 09/13/20 08:59 Last Admin: 08/14/20 08:19 Dose: 300 mg Documented by: [id number] Atorvastatin Calcium (Atorvastatin 20 Mg Tab) 20 mg PO QPM RODDY Stop: 09/12/20 20:59 Last Admin: 08/13/20 22:03 Dose: 20 mg Documented by: [id number] Diclofenac Sodium (Diclofenac Sod 1% Gel 100 Gm Tube) 2 gm EXT BID PRN PRN Reason: Pain Stop: 09/12/20 20:53 Last Admin: 08/14/20 08:52 Dose: 2 gm Documented by: [id number] Admin: 08/14/20 01:39 Dose: 2 gm Documented by: [id number] Duloxetine HCl (Duloxetine Hcl 60 Mg Cap) 60 [facility] [place] Stop: 09/13/20 08:59 Last Admin: 08/14/20 08:20 Dose: 60 mg Documented by: [id number] Furosemide (Furosemide 80 Mg Tab) 80 [facility] [place] Stop: 09/13/20 08:59 Last Admin: 08/14/20 08:19 Dose: 80 mg Documented by: [id number] Gabapentin (Gabapentin 800 Mg Tab) 800 mg PO TID [facility] Stop: 09/12/20 20:59 Last Admin: 08/14/20 08:22 Dose: 800 mg Documented by: [id number] Admin: 08/13/20 22:02 Dose: 800 mg Documented by: [id number] Pantoprazole Sodium 40 mg/ (Dextrose) 100 mls @ 20 mls/hr IV Q5H [facility] Stop: 09/12/20 13:37 Last Admin: 08/14/20 10:37 Dose: 8 mg/hr, 20 mls/hr Documented by: [id number] Infusion: 08/14/20 10:27 Dose: 8 mg/hr, 20 mls/hr Documented by: [id number] Admin: 08/14/20 05:27 Dose: 8 mg/hr, 20 mls/hr Documented by: [id number] Infusion: 08/14/20 05:27 Dose: 8 mg/hr, 20 mls/hr Documented by: [id number] Admin: 08/14/20 00:29 Dose: 8 mg/hr, 20 mls/hr Documented by: [id number] Infusion: 08/14/20 00:29 Dose: 8 mg/hr, 20 mls/hr Documented by: [id number] Admin: 08/13/20 21:01 Dose: 8 mg/hr, 20 mls/hr Documented by: [id number] Infusion: 08/13/20 19:15 Dose: 0 mg/hr, 0 mls/hr Documented by: [id number] Admin: 08/13/20 14:50 Dose: 8 mg/hr, 20 mls/hr Documented by: [id number] Sodium Chloride (Nss 1000ml) 1,000 mls @ 80 mls/hr IV .[id number] RODDY Stop: 09/12/20 20:53 Last Admin: 08/14/20 10:52 Dose: 80 mls/hr Documented by: [id number] Infusion: 08/14/20 10:39 Dose: 80 mls/hr Documented by: [id number] Admin: 08/13/20 22:09 Dose: 80 mls/hr Documented by: [id number] Insulin Aspart (Insulin Aspart 100 Units/Ml 3 Ml Pen) 0 units SC ACHS RODDY Stop: 09/12/20 20:59 Last Admin: 08/14/20 08:24 Dose: 1 units Documented by: [id number] Cosigned by: [id number] Admin: 08/13/20 22:08 Dose: 1 units Documented by: [id number] Cosigned by: [id number] Insulin Glargine (Insulin Glargine Solostar 100 Units/Ml 3 Ml Pen) 20 units SQ HS [facility] Stop: 09/12/20 20:59 Last Admin: 08/13/20 22:07 Dose: 20 units Documented by: [id number] Cosigned by: [id number] Isosorbide Mononitrate (Isosorbide [place] Extended Rel 30 Mg Tabcr) 30 mg PO QAM [facility] Stop: 09/13/20 08:59 Last Admin: 08/14/20 08:20 Dose: 30 mg Documented by: [id number] Levetiracetam (Levetiracetam 250 Mg Tab) 250 mg PO [facility] Stop: 09/12/20 20:59 Last Admin: 08/13/20 22:02 Dose: 250 mg Documented by: [id number] Levothyroxine Sodium (Levothyroxine Sodium 50 Mcg Tablet) 50 mcg PO DAILYBB [facility] Stop: 09/13/20 06:29 Last Admin: 08/14/20 05:25 Dose: 50 mcg Documented by: [id number] Magnesium Oxide (Magnesium Oxide 400 Mg Tab) 400 mg PO BID [facility] Stop: 09/12/20 20:59 Last Admin: 08/14/20 08:23 Dose: 400 mg Documented by: [id number] Admin: 08/13/20 22:01 Dose: 400 mg Documented by: [id number] Metoprolol Succinate (Metoprolol Succ 50mg Ext Rel Tab) 100 mg PO BID [facility] Stop: 09/12/20 20:59 Last Admin: 08/14/20 08:23 Dose: 100 mg Documented by: [id number] Admin: 08/13/20 22:01 Dose: Not Given Documented by: [id number] Pantoprazole Sodium (Pantoprazole 40 Mg Tab) 40 mg PO QAM [facility] Stop: 09/13/20 08:59 Last Admin: 08/14/20 08:20 Dose: 40 mg Documented by: [id number] Potassium Chloride (Potassium Chloride Crtab 20 Meq Tabcr) 20 meq PO BID17 [facility] Stop: 09/13/20 08:59 Last Admin: 08/14/20 08:19 Dose: 20 meq Documented by: [id number] Tapentadol (Tapentadol Hcl 50 Mg Tab) 100 mg PO BID PRN PRN Reason: pain Stop: 08/27/20 20:53 Last Admin: 08/14/20 10:48 Dose: 100 mg Documented by: [id number] Vitamin D (Cholecalciferol 1,000 Units 25 Mcg Tab) 2,000 units PO QAM RODDY Stop: 09/13/20 08:59 Last Admin: 08/14/20 08:19 Dose: 2,000 units Documented by: [id number] Discontinued Medications Sodium Chloride (Nss) 250 mls @ 15 mls/hr IV .[id number] PRN PRN Reason: For Transfusion Stop: 08/13/20 23:12 Last Infusion: 08/13/20 22:00 Dose: 0 mls/hr Documented by: [id number] Admin: 08/13/20 14:19 Dose: 15 mls/hr Documented by: [id number] Pantoprazole Sodium (Protonix Bolus/Drip) 0 mls @ 1 mls/hr IV ONE STA Stop: 08/13/20 13:23 Last Infusion: 08/13/20 16:37 Dose: 0 mls/hr Documented by: [id number] Admin: 08/13/20 16:36 Dose: 1 mls/hr Documented by: [id number] Pantoprazole Sodium 80 mg/ (Dextrose) 120 mls @ 400 mls/hr IV NOW ONE Stop: 08/13/20 13:39 Last Infusion: 08/13/20 14:37 Dose: 0 mls/hr Documented by: [id number] Admin: 08/13/20 14:19 Dose: 400 mls/hr Documented by: [id number] Imaging Data Radiologist's Impression: Chest X-Ray 08/13/20 12:30 XR chest 1V portable CLINICAL HISTORY: Atypical chest pain COMPARISON STUDY: 08/03/2020 FINDINGS: The heart is the upper limits of normal in size. There is no failure. There is no focal pulmonary consolidation. There are no pleural effusions.[ IMPRESSION: No active disease in the chest. ACT 112: Negative or not required by law. Electronically signed by: Yogesh French M.D. 08/13/2020 12:46 PM Abdomen/Pelvis CT 08/13/20 13:[address] WITHOUT CONTRAST CT DOSE: 753.40 mGycm HISTORY: Acute generalized abdominal pain with lower extremity edema Pt c/o abd pain TECHNIQUE: Multiaxial CT images of the abdomen and pelvis were performed without contrast. A dose lowering technique was utilized adhering to the principles of ALARA. COMPARISON STUDY: CT abdomen and pelvis 07/05/2020 FINDINGS: Small layering pleural effusions have decreased in size from comparison. Minimal bibasilar opacities suggestive of atelectasis. Scattered bibasilar calcified granulomata. No pneumatosis or pneumoperitoneum. Cardiomegaly with coronary arterial and mitral annular calcifications. Decreased attenuation of the cardiac blood pool suggests anemia. The unenhanced spleen, pancreas and adrenal glands are unremarkable. The gallbladder is either contracted or surgically absent. Unremarkable liver. Unremarkable kidneys. No urolith or obstructive uropathy. Unremarkable urinary bladder. Hysterectomy. Calcified plaque of the abdominal aorta without aneurysm. There is no adenopathy. Mild nonspecific distal esophageal wall thickening. No bowel obstruction or bowel wall thickening. Mild fecal retention. Normal appendix. Tiny fat filled periumbilical hernia. Mild mesenteric and body wall edema. Contusion of the right flank redemonstrated. A spinal stimulator device battery pack is noted within the right flank with single lead distal tip terminating within the presacral tissues. Chronic L1 compression deformity. Degenerative changes of the spine, pelvis and hips. IMPRESSION: 1. No acute intra-abdominal or intrapelvic abnormality. 2. Improved aeration of the lung bases with decreased size of the small pleural effusions. 3. Additional findings as above. ACT 112: Negative or not required by law. The above report was generated using voice recognition software. It may contain grammatical, syntax or spelling errors. Electronically signed by: Cheo Vargas M.D. 08/13/2020 3:38 PM Discharge Plan Visit Data Chief Complaint: Unable to Void Stated Complaint: REFERRED BY DR. MOTA ED Provider: Miquel Trujillo Discharge Problem: Atrial fibrillation, Anemia Patient Disposition: Admitted As Inpatient Discharge Instructions Interventions: ED Discharge Assessment Last Done: 08/13/20 19:13 Discharge Problem: Atrial fibrillation Qualifiers: Atrial fibrillation type: unspecified Qualified Code(s): I48.91 - Unspecified atrial fibrillation Anemia Qualifiers: Anemia type: unspecified type Qualified Code(s): D64.9 - Anemia, unspecified
--- NOTE | 2020-08-13 16:52 | History & Physical Report ---
Date of Service August 13, 2020 Assessment & Plan (1) Spinal stenosis: Patient has well-documented severe spinal stenosis which has been considered to the etiology of her ongoing ambulatory dysfunction with falls. Patient has repeatedly refused any surgical intervention and would instead like to try therapy I did once again discussed possible acute rehab placement the patient is refusing and does not want to consider it at this time. I will ask PT/OT to evaluate. Case management to once again discuss possible rehab placement. (2) Urinary retention: Patient had normal bladder scan, unclear if this is legitimate urinary retention. Asked for post void residual performed today. Check UA C&S, already ordered by ER. If continued issues, may need discussed with urology or possibly spinal orthopedics again. (3) Peripheral neuropathy: Continue gabapentin as ordered. Likely etiology of falls as noted above. (4) CKD (chronic kidney disease): Creatinine of 1.69 today, appears to be close to her baseline. May be affected by urinary retention, will continue to monitor. (5) Anemia: RectumSuspect patient's anemia is due to her known hemolytic process. ER physician discussed with GI and did PPI drip with plans for colonoscopy and EGD in the morning. We will hold apixaban and Plavix pending possible study. Patient is unclear of her diet, should be n.p.o. in the morning. 1 unit packed red blood cells consented and ordered by the ER, will recheck hemoglobin posttransfusion. If patient's hemoglobin continues to drop, will consult hematology. Patient may require low-dose steroid treatment. (6) Atrial fibrillation: On apixaban, will discontinue for possible endoscopy as discussed above. Patient is bradycardic at 59 and asymptomatic. (7) Obstructive sleep apnea: Order patient CPAP nightly. (8) Hypothyroidism: Medications as per outpatient dosing. (9) CAD (coronary artery disease): Medications as per outpatient dosing. This includes aspirin, Plavix, metoprolol succinate and atorvastatin. (10) Diabetes mellitus, type II: Patient's long-acting insulin dosing was decreased from 35 to 20 units s econdary to a low hemoglobin A1c. I do see patient's blood sugar today is 110. We will continue to monitor, start sliding scale with before meals at bedtime Accu-Cheks. Continue other medications as per outpatient. (11) Hyperlipidemia: Atorvastatin as noted above. History of Present Illness Primary Care Provider: Domi Wetzel, This is an 85-year-old female with past medical history of severe spinal stenosis with neuropathy, atrial fibrillation, coronary artery disease, and hemolytic anemia that presents today complaining of ambulatory dysfunction urinary retention. Patient is decent story. Of note, patient was here in our hospital on . She at that time was found to be anemic and had issues with spinal stenosis causing ambulatory dysfunction. Patient is initially agreeable to go to acute rehab but subsequently refused and was sent home with services as able. At that time, she had been seen by orthopedics and spinal surgery was offered but the patient refused. Patient tells me that after she returned home, she continued to have issues with her ambulation. She had several "near falls" at Mother's Day dinner yesterday. Likely, son was there to catch her and she did not fall the ground or injure herself in any way. What was more concerning was a sensation of urinary retention. She says she was unable to urinate through most of the day yesterday outside of a small amount. I do see the patient was bladder scanned in the emergency room found to have less than 100 cc in her bladder. Work-up was essentially unchanged outside of her anemia which had worsened slightly. 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 Hemoglobin on discharge was 8.3 but is now down to 7.7. Patient denies any gross bleeding including hematochezia and hematemesis. Allergies Allergy/AdvReac Type Severity Reaction Status Date / Time shellfish derived Allergy Severe ANAPHYLAXIS Verified 08/13/20 14:18 iodine Allergy Intermediate ANAPHYLAXIS Verified 08/13/20 14:18 lisinopril Allergy Unknown Unknown Verified 08/13/20 14:18 oxybutynin [From Ditropan] Allergy Unknown Unknown Verified 08/13/20 14:18 sertraline [From Zoloft] Allergy Unknown Unknown Verified 08/13/20 14:18 paroxetine AdvReac Mild GI UPSET Verified 08/13/20 14:18 Home Medications Medication Instructions Recorded Confirmed Type lidocaine 4 % topical gel 1 appln TOP TID PRN #30 gm 01/14/19 08/13/20 Rx albuterol sulfate 90 mcg/actuation 1 - 2 puffs INH Q4H PRN #6.7 gm 04/26/19 08/13/20 Rx aerosol inhaler metoprolol succinate 50 mg 100 mg PO BID #360 tab 11/04/19 08/13/20 Rx tablet,extended release 24 hr levothyroxine 50 mcg tablet 50 mcg PO QAM 30 Days #30 tab 01/03/20 08/13/20 Rx digoxin 125 mcg (0.125 mg) tablet 125 mcg PO QAM #90 tab 01/09/20 08/13/20 Rx fluticasone propionate 50 1 spray INTRANASAL BID PRN #16 g 01/11/20 08/13/20 Rx mcg/actuation nasal spray,suspension gabapentin 300 mg capsule 300 mg PO HS PRN #90 cap 01/24/20 08/13/20 Rx pantoprazole 40 mg tablet,delayed 40 mg PO QAM #90 tab 02/01/20 08/13/20 Rx release allopurinol 100 mg tablet 300 mg PO QAM #270 tab 02/15/20 08/13/20 Rx gabapentin 800 mg tablet 800 mg PO TID 90 Days #270 tab 03/21/20 08/13/20 Rx duloxetine 60 mg capsule,delayed 60 mg PO QAM #90 cap 03/27/20 08/13/20 Rx release isosorbide mononitrate 30 mg 30 mg PO QAM #90 tab 04/30/20 08/13/20 Rx tablet,extended release 24 hr acetaminophen 650 mg 1,300 mg PO HS tab 05/11/20 08/13/20 History tablet,extended release atorvastatin 20 mg tablet 20 mg PO QPM tab 05/11/20 08/13/20 History cholecalciferol (vitamin D3) 25 2,000 unit PO QAM tab 05/11/20 08/13/20 History mcg (1,000 unit) tablet insulin aspart U-100 100 unit/mL 7 - 10 unit SUBCUT TIDM #45 ml 06/01/20 08/13/20 Rx (3 mL) subcutaneous pen Nucynta 100 mg PO BID PRN 06/26/20 08/13/20 History levetiracetam 250 mg tablet 250 mg PO HS #30 tab 06/26/20 08/13/20 Rx magnesium oxide 400 mg PO BID #90 tab 07/03/20 08/13/20 Rx diclofenac sodium 1 % topical gel 2 g TOPICAL HS PRN #100 gm 07/10/20 08/13/20 Rx potassium chloride 20 mEq 20 meq PO BID #90 tab 07/11/20 08/13/20 Rx tablet,extended release Lantus Solostar U-100 Insulin 20 unit SUBCUT HS #15 ml 08/05/20 08/13/20 Rx clopidogrel [Plavix] 75 mg PO DAILY #0 tab 08/05/20 08/13/20 Rx apixaban 2.5 mg tablet 2.5 mg PO BID #180 tab 08/06/20 08/13/20 Rx furosemide 40 mg tablet 40 - 80 mg PO BID #270 tab 08/10/20 08/13/20 Rx Past Med/Surg History Medical History Anemia Asthma Atrial fibrillation CAD (coronary artery disease) Cerebrovascular disease Chronic diastolic congestive heart failure Chronic kidney disease (CKD) COPD (chronic obstructive pulmonary disease) Diabetes mellitus, type II Diabetic peripheral neuropathy Elevated troponin Generalized osteoarthritis GERD (gastroesophageal reflux disease) History of gout History of non-ST elevation myocardial infarction (NSTEMI) Hyperlipidemia Hypertension Hypothyroidism Lichen planus Macular degeneration Macular degeneration Mitral regurgitation Neurologic gait dysfunction Obstructive sleep apnea Secondary hyperparathyroidism Sensorineural hearing loss (SNHL) of both ears Spinal stenosis Venous insufficiency of both lower extremities Venous stasis ulcers of both lower extremities Vitamin D deficiency Weakness Surgical History H/O colonoscopy History of repair of rectocele S/P breast biopsy S/P section S/P cholecystectomy S/P hysterectomy S/P implantation of urinary electronic stimulator device Family History Father No problems noted. Mother No problems noted. Other Coronary heart disease Denies family history of Ovarian cancer Prostate cancer Crohn's disease Breast cancer Lung cancer Colorectal cancer Social History Smoking Status: Never smoker Second Hand Exposure: No; Hx Alcohol Use: No Hx Substance Use: No Preferred Language: Polish Communication Ability: Effective Visual Impairment: No Limitations Hearing Ability: Normal Filtrose Crusher Required: No Beliefs That Will Affect Care: None marital status: / Current Living Situation: Spouse current occupational status: retired Feels Safe at Home: Yes Childhood Exposure to Second-Hand Smoke: No Dental Care, Regularly: Yes Physical Activity Frequency: 1-2 Times per Week Physical Activity Frequency Comment: physical therapy Seatbelt Use: always Sunscreen Use: Yes Assistive Devices: Denture - Upper and Walker Review of Systems Constitutional: + fatigue and + weakness; no fever, no chills and no anorexia Eyes: as per Subjective / HPI Ear, Nose, Mouth, Throat: as per Subjective / HPI Respiratory: no cough, no chest congestion, no dyspnea, no dyspnea on exertion, no pain on inspiration and no pain with cough Cardiovascular: no chest pain, no chest pain at rest, no radiating jaw, neck or arm pain, no dyspnea, no dyspnea on exertion, no palpitations and no edema Gastrointestinal: no nausea, no vomiting, no coffee ground emesis, no hematemesis, no pain with swallowing, no excessive flatulence, no constipation and no diarrhea/loose stools Genitourinary: + difficulty urinating and + urinary hesitancy; no dysuria, no urinary frequency and no urinary urgency Musculoskeletal: + back pain; no loss of height and no swelling Integumentary: as per Subjective / HPI Neurologic: as per Subjective / HPI Psychiatric: as per Subjective / HPI Physical Exam Constitutional: + obese and cooperative; no acute distress Neck: trachea midline, no thyromegaly Respiratory: normal respiratory effort, lungs clear to auscultation Cardiovascular: RRR, no murmur, no edema Gastrointestinal (Abdomen): normal bowel sounds, soft, nontender, no hepatosplenomegaly Musculoskeletal: no cyanosis or clubbing, extremities motor strength 5/5 Skin: no rashes, warm and dry Psychiatric: Orientation: oriented x 3 Affect: + anxious affect Results & Data Results & Data ([facility]) Vital Signs (Past 12 Hours) Vital Signs Temp Pulse Resp BP Pulse Ox 08/13/20 14:46 57 L 20 191/74 H 92 08/13/20 14:32 52 L 22 189/58 H 95 08/13/20 14:17 63 22 189/88 H 96 08/13/20 14:02 53 L 14 181/78 H 93 08/13/20 13:47 47 L 13 196/84 H 96 08/13/20 13:32 58 L 15 140/63 94 08/13/20 13:17 63 18 112/64 95 08/13/20 13:01 58 L 15 120/58 L 94 08/13/20 12:46 51 L 13 155/58 H 95 08/13/20 12:43 62 11 L 142/63 H 95 08/13/20 12:30 55 L 8 L 92 08/13/20 12:15 57 L 12 96 08/13/20 12:06 57 L 14 94 08/13/20 11:43 36.5 C 80 18 151/59 H 97 PG Care Time/CCT Total # of Minutes Spent Total Time Spent with Patient: Total time spent is greater than 50% in c oordination of care (as documented) at patient's floor/unit and/or counseling patient: Coding Level of Care Code 24585 Initial Inpt Care Lvl 3 Diagnoses Spinal stenosis M48.00 Urinary retention R33.9 Peripheral neuropathy G62.9 CKD (chronic kidney disease) N18.9 Chronic kidney disease stage: unspecified stage Anemia D64.9 Anemia type: unspecified type Atrial fibrillation I48.91 Atrial fibrillation type: unspecified Obstructive sleep apnea G47.33 Hypothyroidism E03.9 Hypothyroidism type: unspecified CAD (coronary artery disease) I25.10 Diabetes mellitus, type II E11.9 Hyperlipidemia E78.5 (1) Anemia Anemia type: unspecified type Qualified Code(s): D64.9 - Anemia, unspecified (2) Atrial fibrillation Atrial fibrillation type: unspecified Qualified Code(s): I48.91 - Unspecified atrial fibrillation (3) Hypothyroidism Hypothyroidism type: unspecified Qualified Code(s): E03.9 - Hypothyroidism, unspecified (4) CKD (chronic kidney disease) Chronic kidney disease stage: unspecified stage Qualified Code(s): N18.9 - Chronic kidney disease, unspecified
[2020-08-13] MEDS ORDERED: LAVAGE SOLUTION 4000ML PO SCH (18:00)
[2020-08-13] MEDS ORDERED: ONDANSETRON INJ 2 MG/ML 2 ML VIAL IV PRN (20:54)
[2020-08-13] MEDS ORDERED: PHARMACY GLYCEMIC MGMT CONSULT STA (20:54)
[2020-08-13] MEDS ORDERED: DICLOFENAC SOD 1% GEL 100 GM TUBE EXT PRN (20:54)
[2020-08-13] MEDS ORDERED: GLUCOSE 10 TAB/TUBE PO PRN (20:54)
[2020-08-13] MEDS ORDERED: GLUCOSE 40% GEL 15 GM TUBE PO PRN (20:54)
[2020-08-13] MEDS ORDERED: FLUTICASONE PROPIONATE NA SPR 16 GM BTL PRN (20:54)
[2020-08-13] MEDS ORDERED: CARBOHYDRATES FOR HYPOGLYCEMIA PO PRN (20:54)
[2020-08-13] MEDS ORDERED: DEXTROSE 50% 50 ML SYRINGE IV PRN (20:54)
[2020-08-13] MEDS ORDERED: GABAPENTIN 300 MG CAP PO PRN (20:54)
[2020-08-13] MEDS ORDERED: ACETAMINOPHEN 325 MG TAB PO PRN (20:54)
[2020-08-13] MEDS ORDERED: GLUCAGON FOR INJ 1 MG VIAL SQ PRN (20:54)
[2020-08-13] MEDS ORDERED: ALBUTEROL HFA 8 GM INHALER INH PRN (21:30)
[2020-08-13] MEDS: MAGNESIUM OXIDE 400 MG TAB PO SCH (22:01)
[2020-08-13] MEDS: METOPROLOL SUCC 50MG EXT REL TAB PO SCH (22:01)
[2020-08-13] MEDS: ACETAMINOPHEN 325 MG TAB PO SCH (22:01)
[2020-08-13] MEDS: levETIRAcetam 250 MG TAB PO SCH (22:02)
[2020-08-13] MEDS: GABAPENTIN 800 MG TAB PO SCH (22:02)
[2020-08-13] MEDS: ATORVASTATIN 20 MG TAB PO SCH (22:03)
[2020-08-13] MEDS: INSULIN GLARGINE SOLOSTAR 100 UNITS/ML 3 ML PEN SQ SCH (22:07)
[2020-08-13] MEDS: INSULIN ASPART 100 UNITS/ML 3 ML PEN SC SCH (22:08)
[2020-08-13] MEDS: SODIUM CHLORIDE 0.9% 1000ML 1,000 ML IV SCH (22:09)
[2020-08-14] MEDS: PANTOprazole 40 MG in DEXTROSE 5% 100 ML IV SCH ×4 (00:29→17:27)
[2020-08-14] MEDS: DICLOFENAC SOD 1% GEL 100 GM TUBE EXT PRN ×3 (01:39→19:58)
[2020-08-14] MEDS: LEVOTHYROXINE SODIUM 50 MCG TABLET PO SCH (05:25)
[2020-08-14 06:35] LABS: Hematocrit (blood only) 31.8 % (37-47); Hemoglobin 9.8 g/dL (12.0-16.0); Mean Corpuscular Hemoglobin 31.9 pg (25-34); Mean Corpuscular Hgb Conc 30.8 g/dL (32-36); Mean Corpuscular Volume 103.6 fL (80-100); Mean Platelet Volume 12.7 fL (7.4-10.4); Platelet Count 232 K/uL (130-400); RDW Coefficient of Variation 23.2 % (11.5-14.5); RDW Standard Deviation 85.1 fL (36.4-46.3); Red Blood Count 3.07 M/uL (4.2-5.4); White Blood Count 5.28 K/uL (4.8-10.8)
[2020-08-14 07:05] LABS: Anisocytosis Present; Basophils # (auto) 0.01 K/uL (0-0.2); Basophils % (auto) 0.2 %; Eosinophils # (auto) 0.37 K/uL (0-0.5); Immature Granulocytes # (auto) 0.02 K/uL (0.00-0.02); Immature Granulocytes % (auto) 0.4 %; Lymphocytes # (auto) 0.64 K/uL (1.2-3.4); Lymphocytes % (auto) 12.1 %; Monocytes # (auto) 0.35 K/uL (0.11-0.59); Monocytes % (auto) 6.6 %; Neutrophils # (auto) 3.89 K/uL (1.4-6.5); Neutrophils % (auto) 73.7 %; Ovalocytes 2+
[2020-08-14 07:20] LABS: BUN Creatinine Ratio 14.4 (10-20); Calcium 8.4 mg/dl (8.5-10.1); Creatinine Clr Calc Pharmacy 24.6 ml/min; Est GFR (African American) 33.7; Est GFR (Non-African American) 29.1; Magnesium 2.3 mg/dl (1.8-2.4); Potassium 3.2 mmol/L (3.5-5.1)
--- NOTE | 2020-08-14 07:22 | Electrocardiogram Report ---
Test Reason : Blood Pressure : / mmHG Vent. Rate : 057 BPM Atrial Rate : 077 BPM P-R Int : 000 ms QRS Dur : 074 ms QT Int : 414 ms P-R-T Axes : 000 005 233 degrees QTc Int : 402 ms Atrial fibrillation with slow ventricular response Low voltage QRS Cannot rule out Anterior infarct (cited on or before 13-AUG-2020) Abnormal ECG When compared with ECG of 03-AUG-2020 14:41, No significant change was found Confirmed by Harvey Rodas ([id number]) on 08/14/2020 7:21:57 AM Referred By: REFERRED SELF Confirmed By:Harvey Rodas
[2020-08-14] MEDS: allopurinoL 300 MG TAB PO SCH (08:19)
[2020-08-14] MEDS: POTASSIUM CHLORIDE CRTAB 20 MEQ TABCR PO SCH ×2 (08:19→17:30)
[2020-08-14] MEDS: FUROSEMIDE 80 MG TAB PO SCH (08:19)
[2020-08-14] MEDS: CHOLECALCIFEROL 1,000 UNITS 25 MCG TAB PO SCH (08:19)
--- NOTE | 2020-08-14 08:19 | Anesthesiology Consultation ---
Date of Service August 14, 2020 Assessment & Plan (1) Encounter for pre-operative examination: Chart Review Chart Review: Acceptable Risk for Surgery and Patient NOT seen in Pre Admission Testing covid neg 08/13/20 Consults Requested none History Surgery Operation Date: 08/14/20 16:30 Proposed Procedures p Colonoscopy EGD Dr. Linda Mckeon MD Height/Weight Height: 5 ft 1 in Weight: 76.5 kg Allergies Allergy/AdvReac Type Severity Reaction Status Date / Time shellfish derived Allergy Severe ANAPHYLAXIS Verified 08/13/20 14:18 iodine Allergy Intermediate ANAPHYLAXIS Verified 08/13/20 14:18 lisinopril Allergy Unknown Unknown Verified 08/13/20 14:18 oxybutynin [From Ditropan] Allergy Unknown Unknown Verified 08/13/20 14:18 sertraline [From Zoloft] Allergy Unknown Unknown Verified 08/13/20 14:18 paroxetine AdvReac Mild GI UPSET Verified 08/13/20 14:18 Medications Home Medications Medication Instructions Recorded Confirmed Last Taken lidocaine 4 % topical gel 1 appln TOP TID PRN #30 gm 01/14/19 08/13/20 07/05/20 albuterol sulfate 90 mcg/actuation 1 - 2 puffs INH Q4H PRN #6.7 gm 04/26/19 08/13/20 07/05/20 aerosol inhaler metoprolol succinate 50 mg 100 mg PO BID #360 tab 11/04/19 08/13/20 08/13/20 tablet,extended release 24 hr levothyroxine 50 mcg tablet 50 mcg PO QAM 30 Days #30 tab 01/03/20 08/13/20 08/13/20 digoxin 125 mcg (0.125 mg) tablet 125 mcg PO QAM #90 tab 01/09/20 08/13/20 08/13/20 fluticasone propionate 50 1 spray INTRANASAL BID PRN #16 g 01/11/20 08/13/20 Unknown mcg/actuation nasal spray,suspension gabapentin 300 mg capsule 300 mg PO HS PRN #90 cap 01/24/20 08/13/20 08/12/20 pantoprazole 40 mg tablet,delayed 40 mg PO QAM #90 tab 02/01/20 08/13/20 08/13/20 release allopurinol 100 mg tablet 300 mg PO QAM #270 tab 02/15/20 08/13/20 08/13/20 gabapentin 800 mg tablet 800 mg PO TID 90 Days #270 tab 03/21/20 08/13/20 08/13/20 duloxetine 60 mg capsule,delayed 60 mg PO QAM #90 cap 03/27/20 08/13/20 08/13/20 release isosorbide mononitrate 30 mg 30 mg PO QAM #90 tab 04/30/20 08/13/20 08/13/20 tablet,extended release 24 hr acetaminophen 650 mg 1,300 mg PO HS tab 05/11/20 08/13/20 08/12/20 tablet,extended release atorvastatin 20 mg tablet 20 mg PO QPM tab 05/11/20 08/13/20 08/12/20 cholecalciferol (vitamin D3) 25 2,000 unit PO QAM tab 05/11/20 08/13/20 08/13/20 mcg (1,000 unit) tablet insulin aspart U-100 100 unit/mL 7 - 10 unit SUBCUT TIDM #45 ml 06/01/20 08/13/20 08/13/20 (3 mL) subcutaneous pen 8 units Nucynta 100 mg PO BID PRN 06/26/20 08/13/20 08/10/20 levetiracetam 250 mg tablet 250 mg PO HS #30 tab 06/26/20 08/13/20 08/12/20 magnesium oxide 400 mg PO BID #90 tab 07/03/20 08/13/20 08/13/20 diclofenac sodium 1 % topical gel 2 g TOPICAL HS PRN #100 gm 07/10/20 08/13/20 Unknown potassium chloride 20 mEq 20 meq PO BID #90 tab 07/11/20 08/13/20 08/13/20 tablet,extended release Lantus Solostar U-100 Insulin 20 unit SUBCUT HS #15 ml 08/05/20 08/13/20 clopidogrel [Plavix] 75 mg PO DAILY #0 tab 08/05/20 08/13/20 08/12/20 apixaban 2.5 mg tablet 2.5 mg PO BID #180 tab 08/06/20 08/13/20 08/13/20 furosemide 40 mg tablet 40 - 80 mg PO BID #270 tab 08/10/20 08/13/20 08/13/20 Active Medications Generic Name Dose Route Start Last Admin Trade Name Freq PRN Reason Stop Dose Admin Acetaminophen 1,300 mg 08/13/20 21:00 08/13/20 22:01 Acetaminophen 325 Mg Tab PO 09/12/20 20:59 1,300 mg HS RODDY Administration Albuterol 1 - 2 puffs 08/13/20 21:30 08/14/20 08:46 Albuterol Hfa 8 Gm Inhaler INH 09/12/20 21:29 2 puffs Q4H PRN Administration SOB/WHEEZING Allopurinol 300 mg 08/14/20 09:00 08/14/20 08:19 Allopurinol 300 Mg Tab PO 09/13/20 08:59 300 mg QAM RODDY Administration Atorvastatin Calcium 20 mg 08/13/20 21:00 08/13/20 22:03 Atorvastatin 20 Mg Tab PO 09/12/20 20:59 20 mg QPM RODDY Administration Diclofenac Sodium 2 gm 08/13/20 23:38 08/14/20 08:52 Diclofenac Sod 1% Gel 100 Gm Tube EXT 09/12/20 20:53 2 gm BID PRN Administration Pain Duloxetine HCl 60 mg 08/14/20 09:00 08/14/20 08:20 Duloxetine Hcl 60 Mg Cap PO 09/13/20 08:59 60 mg QAM RODDY Administration Furosemide 80 mg 08/14/20 09:00 08/14/20 08:19 Furosemide 80 Mg Tab PO 09/13/20 08:59 80 mg QAM RODDY Administration Gabapentin 800 mg 08/13/20 21:00 08/14/20 08:22 Gabapentin 800 Mg Tab PO 09/12/20 20:59 800 mg TID RODDY Administration Pantoprazole Sodium 40 mg/ 100 mls @ 20 mls/hr 08/13/20 13:38 08/14/20 13:51 Dextrose IV 09/12/20 13:37 0 mg/hr Q5H RODDY 0 mls/hr Infusion 8 MG/HR Sodium Chloride 1,000 mls @ 80 mls/hr 08/13/20 20:54 08/14/20 13:51 Nss 1000ml IV 09/12/20 20:53 0 mls/hr .[id number] RODDY Infusion Insulin Aspart 0 units 08/13/20 21:00 08/14/20 12:30 Insulin Aspart 100 Units/Ml 3 Ml Pen SC 09/12/20 20:59 2 units ACHS RODDY Administration Insulin Glargine 20 units 08/13/20 21:00 08/13/20 22:07 Insulin Glargine Solostar 100 Units/Ml 3 Ml Pen SQ 09/12/20 20:59 20 units HS RODDY Administration Isosorbide Mononitrate 30 mg 08/14/20 09:00 08/14/20 08:20 Isosorbide [place] Extended Rel 30 Mg Tabcr PO 09/13/20 08:59 30 mg QAM RODDY Administration Levetiracetam 250 mg 08/13/20 21:00 08/13/20 22:02 Levetiracetam 250 Mg Tab PO 09/12/20 20:59 250 mg HS RODDY Administration Levothyroxine Sodium 50 mcg 08/14/20 06:30 08/14/20 05:25 Levothyroxine Sodium 50 Mcg Tablet PO 09/13/20 06:29 50 mcg DAILYBB RODDY Administration Magnesium Oxide 400 mg 08/13/20 21:00 08/14/20 08:23 Magnesium Oxide 400 Mg Tab PO 09/12/20 20:59 400 mg BID RODDY Administration Metoprolol Succinate 100 mg 08/13/20 21:00 08/14/20 08:23 Metoprolol Succ 50mg Ext Rel Tab PO 09/12/20 20:59 100 mg BID RODDY Administration Pantoprazole Sodium 40 mg 08/14/20 09:00 08/14/20 08:20 Pantoprazole 40 Mg Tab PO 09/13/20 08:59 40 mg QAM RODDY Administration Potassium Chloride 20 meq 08/14/20 09:00 08/14/20 08:19 Potassium Chloride Crtab 20 Meq Tabcr PO 09/13/20 08:59 20 meq BID17 RODDY Administration Tapentadol 100 mg 08/13/20 20:54 08/14/20 10:48 Tapentadol Hcl 50 Mg Tab PO 08/27/20 20:53 100 mg BID PRN Administration pain Vitamin D 2,000 units 08/14/20 09:00 08/14/20 08:19 Cholecalciferol 1,000 Units 25 Mcg Tab PO 09/13/20 08:59 2,000 units QAM RODDY Administration Past Medical History Medical History Anemia Chronic macrocytic Asthma Atrial fibrillation CAD (coronary artery disease) Cerebrovascular disease Chronic diastolic congestive heart failure Chronic kidney disease (CKD) Stage III, baseline Cr 1.3-1.5mg/dL. Complicated with normocytic anemia and secondary hyperparathyroidism. Followed by nephrology. COPD (chronic obstructive pulmonary disease) Diabetes mellitus, type II Diabetic peripheral neuropathy Elevated troponin Generalized osteoarthritis CT scan lumbar spine (03/16) severe multilevel spinal stenosis. Cannot perform MRI due to bladder implant. Followed by pain management. Epidural steroid injections with improvement of pain. Evaluated by ortho, decided against surgery. Managed with gabapentin 300mg TID + APAP PRN + tapentadol 50mg BID PRN GERD (gastroesophageal reflux disease) History of gout Managed with allopruinol daily. No recent gouty attacks. Uric acid suppressed 3.4 mg/dl (12/22) History of non-ST elevation myocardial infarction (NSTEMI) x2, 2017 and 2018 Hyperlipidemia Secondary prevention with moderate intensity statin (atorvastatin 20mg daily) Hypertension Managed with furosemide + metoprolol Hypothyroidism Managed with levothyroxine supplementation Lichen planus Macular degeneration Macular degeneration Mitral regurgitation Neurologic gait dysfunction Obstructive sleep apnea Long standing. Managed with CPAP nightly. CPAP titration polysomnography (07/14). Secondary hyperparathyroidism 2/2 CKD stage III. Managed with calcitriol. Followed by nephrology Sensorineural hearing loss (SNHL) of both ears Spinal stenosis Venous insufficiency of both lower extremities Venous stasis ulcers of both lower extremities Vitamin D deficiency Weakness Past Family History Family History Father , Age 64 No problems noted. Mother , Age 61 No problems noted. Other Coronary heart disease Denies family history of Ovarian cancer Prostate cancer Crohn's disease Breast cancer Lung cancer Colorectal cancer Past Surgical History Surgical History H/O colonoscopy History of repair of rectocele S/P breast biopsy S/P section S/P cholecystectomy S/P hysterectomy S/P implantation of urinary electronic stimulator device Social History Smoking Status: Never smoker Do You Dip or Chew Tobacco: No Hx Alcohol Use: No Alcohol type: beer alcohol intake frequency: holidays/special occasions only Hx Substance Use: No substance use type: does not use Physical Exam Vital Signs Last Vital Signs Temp 36.9 C 08/14/20 13:56 Pulse 78 08/14/20 13:56 Resp 18 08/14/20 13:56 BP 185/93 H 08/14/20 13:56 Pulse Ox 93 08/14/20 13:56 Testing Laboratory Results 08/14/20 05:59 08/14/20 05:59 Urine Color Yellow 08/13/20 15:49 Urine Appearance Clear (Clear) 08/13/20 15:49 Urine pH 7.0 (4.5-7.5) 08/13/20 15:49 Ur Specific [place] 1.010 (1.000-1.030) 08/13/20 15:49 Urine Protein Negative (Negative) 08/13/20 15:49 Urine Glucose (UA) Negative (Negative) 08/13/20 15:49 Urine Ketones Negative (Negative) 08/13/20 15:49 Urine Nitrite Positive (Negative) A 08/13/20 15:49 Ur Leukocyte Esterase Negative (Negative) 08/13/20 15:49 Urine WBC (Auto) 1-5 /hpf (0-5) 08/13/20 15:49 Urine RBC (Auto) 0-4 /hpf (0-4) 08/13/20 15:49 U Hyaline Cast (Auto) 0 /lpf (0-5) 08/13/20 15:49 U Epithel Cells (Auto) 0-5 /lpf (0-5) 08/13/20 15:49 Urine Bacteria (Auto) 1+ (Negative) H 08/13/20 15:49 Blood Type A Positive 08/13/20 13:44 Antibody Screen NEGATIVE 08/13/20 13:44 08/13/20 15:49 Urine Culture - Preliminary Urine,Clean Catch Gram negative bacilli 08/14/20 12:29 POC Glucose 164 H Electrocardiogram Date: 08/13/20 DICTATED BY: Harvey Rodas MD Test Reason : Blood Pressure : / mmHG Vent. Rate : 057 BPM Atrial Rate : 077 BPM P-R Int : 000 ms QRS Dur : 074 ms QT Int : 414 ms P-R-T Axes : 000 005 233 degrees QTc Int : 402 ms Atrial fibrillation with slow ventricular response Low voltage QRS Cannot rule out Anterior infarct (cited on or before 13-AUG-2020) Abnormal ECG When compared with ECG of 03-AUG-2020 14:41, No significant change was found Confirmed by Harvey Rodas ([id number]) on 08/14/2020 7:21:57 AM Chest X-Ray Date: 08/13/20 XR chest 1V portable CLINICAL HISTORY: Atypical chest pain COMPARISON STUDY: 08/03/2020 FINDINGS: The heart is the upper limits of normal in size. There is no failure. There is no focal pulmonary consolidation. There are no pleural effusions.[ IMPRESSION: No active disease in the chest.
[2020-08-14] MEDS: PANTOprazole 40 MG TAB PO SCH (08:20)
[2020-08-14] MEDS: DULoxetine HCL 60 MG CAP PO SCH (08:20)
[2020-08-14] MEDS: ISOSORBIDE MONO EXTENDED REL 30 MG TABCR PO SCH (08:20)
[2020-08-14] MEDS: GABAPENTIN 800 MG TAB PO SCH ×3 (08:22→20:26)
[2020-08-14] MEDS: METOPROLOL SUCC 50MG EXT REL TAB PO SCH ×2 (08:23→20:23)
[2020-08-14] MEDS: MAGNESIUM OXIDE 400 MG TAB PO SCH ×2 (08:23→20:27)
[2020-08-14] MEDS: INSULIN ASPART 100 UNITS/ML 3 ML PEN SC SCH ×4 (08:24→21:11)
--- NOTE | 2020-08-14 09:38 | Gastrointestinal Consultation ---
Date of Consultation August 14, 2020 Assessment & Plan (1) Anemia: 1. Agree with holding anticoagulants for now. 2. Remain NPO. 3. EGD and colonoscopy with Dr. Mckeon today for further evaluation. 4. Additional recommendations pending results of testing. Thank you for allowing us to participate in the care of this patient. If you have any questions or concerns, please do not hesitate to contact us. Supervising Physician Co-Signing Physician Notes I personally evaluated the patient and agree with the findings as documented by STEVEN Hill Exam: abd: soft, nt, nd Proceed with EGD. proceed with colonoscopy. risks/benefits and procedure discussed with patient, who agrees to proceed History of Present Illness Reason for Consultation: GIB Requesting Physician: Dr. Trujillo Attending Physician: Julián Healy DO History of Present Illness Patient is a very pleasant 85 y.o. female with a history of PR, CKD and GIB which she states she was previously hospitalized for ~2 years ago while residing in [place], [place] for the winter. States she did have both an EGD and colonoscopy at that time which were negative for any obvious source of GIB per her report. She denies any overt GIB symptoms. She presented to the ER for ambulation issues and was noted to have a hemoglobin of 7.7. After transfusion of one unit PRBCs, her hemoglobin has rebounded to 9.8 today. She did complete a GoLytely bowel preparation last evening and is currently NPO. Her anticoagulants are being held. Other than fatigue from the bowel preparation, she offers no specific GI complaints at this time. Allergies Allergy/AdvReac Type Severity Reaction Status Date / Time shellfish derived Allergy Severe ANAPHYLAXIS Verified 08/13/20 14:18 iodine Allergy Intermediate ANAPHYLAXIS Verified 08/13/20 14:18 lisinopril Allergy Unknown Unknown Verified 08/13/20 14:18 oxybutynin [From Ditropan] Allergy Unknown Unknown Verified 08/13/20 14:18 sertraline [From Zoloft] Allergy Unknown Unknown Verified 08/13/20 14:18 paroxetine AdvReac Mild GI UPSET Verified 08/13/20 14:18 Home Medications Medication Instructions Recorded Confirmed Type lidocaine 4 % topical gel 1 appln TOP TID PRN #30 gm 01/14/19 08/13/20 Rx albuterol sulfate 90 mcg/actuation 1 - 2 puffs INH Q4H PRN #6.7 gm 04/26/19 08/13/20 Rx aerosol inhaler metoprolol succinate 50 mg 100 mg PO BID #360 tab 11/04/19 08/13/20 Rx tablet,extended release 24 hr levothyroxine 50 mcg tablet 50 mcg PO QAM 30 Days #30 tab 01/03/20 08/13/20 Rx digoxin 125 mcg (0.125 mg) tablet 125 mcg PO QAM #90 tab 01/09/20 08/13/20 Rx fluticasone propionate 50 1 spray INTRANASAL BID PRN #16 g 01/11/20 08/13/20 Rx mcg/actuation nasal spray,suspension gabapentin 300 mg capsule 300 mg PO HS PRN #90 cap 01/24/20 08/13/20 Rx pantoprazole 40 mg tablet,delayed 40 mg PO QAM #90 tab 02/01/20 08/13/20 Rx release allopurinol 100 mg tablet 300 mg PO QAM #270 tab 02/15/20 08/13/20 Rx gabapentin 800 mg tablet 800 mg PO TID 90 Days #270 tab 03/21/20 08/13/20 Rx duloxetine 60 mg capsule,delayed 60 mg PO QAM #90 cap 03/27/20 08/13/20 Rx release isosorbide mononitrate 30 mg 30 mg PO QAM #90 tab 04/30/20 08/13/20 Rx tablet,extended release 24 hr acetaminophen 650 mg 1,300 mg PO HS tab 05/11/20 08/13/20 History tablet,extended release atorvastatin 20 mg tablet 20 mg PO QPM tab 05/11/20 08/13/20 History cholecalciferol (vitamin D3) 25 2,000 unit PO QAM tab 05/11/20 08/13/20 History mcg (1,000 unit) tablet insulin aspart U-100 100 unit/mL 7 - 10 unit SUBCUT TIDM #45 ml 06/01/20 08/13/20 Rx (3 mL) subcutaneous pen Nucynta 100 mg PO BID PRN 06/26/20 08/13/20 History levetiracetam 250 mg tablet 250 mg PO HS #30 tab 06/26/20 08/13/20 Rx magnesium oxide 400 mg PO BID #90 tab 07/03/20 08/13/20 Rx diclofenac sodium 1 % topical gel 2 g TOPICAL HS PRN #100 gm 07/10/20 08/13/20 Rx potassium chloride 20 mEq 20 meq PO BID #90 tab 07/11/20 08/13/20 Rx tablet,extended release Lantus Solostar U-100 Insulin 20 unit SUBCUT HS #15 ml 08/05/20 08/13/20 Rx clopidogrel [Plavix] 75 mg PO DAILY #0 tab 08/05/20 08/13/20 Rx apixaban 2.5 mg tablet 2.5 mg PO BID #180 tab 08/06/20 08/13/20 Rx furosemide 40 mg tablet 40 - 80 mg PO BID #270 tab 08/10/20 08/13/20 Rx Patient History Medical History Anemia Chronic macrocytic Asthma Atrial fibrillation CAD (coronary artery disease) Cerebrovascular disease Chronic diastolic congestive heart failure Chronic kidney disease (CKD) Stage III, baseline Cr 1.3-1.5mg/dL. Complicated with normocytic anemia and secondary hyperparathyroidism. Followed by nephrology. COPD (chronic obstructive pulmonary disease) Diabetes mellitus, type II Diabetic peripheral neuropathy Elevated troponin Generalized osteoarthritis CT scan lumbar spine (03/16) severe multilevel spinal stenosis. Cannot perform MRI due to bladder implant. Followed by pain management. Epidural steroid injections with improvement of pain. Evaluated by ortho, decided against surgery. Managed with gabapentin 300mg TID + APAP PRN + tapentadol 50mg BID PRN GERD (gastroesophageal reflux disease) History of gout Managed with allopruinol daily. No recent gouty attacks. Uric acid suppressed 3.4 mg/dl (12/22) History of non-ST elevation myocardial infarction (NSTEMI) x2, 2017 and 2018 Hyperlipidemia Secondary prevention with moderate intensity statin (atorvastatin 20mg daily) Hypertension Managed with furosemide + metoprolol Hypothyroidism Managed with levothyroxine supplementation Lichen planus Macular degeneration Macular degeneration Mitral regurgitation Neurologic gait dysfunction Obstructive sleep apnea Long standing. Managed with CPAP nightly. CPAP titration polysomnography (07/14). Secondary hyperparathyroidism 2/2 CKD stage III. Managed with calcitriol. Followed by nephrology Sensorineural hearing loss (SNHL) of both ears Spinal stenosis Venous insufficiency of both lower extremities Venous stasis ulcers of both lower extremities Vitamin D deficiency Weakness Surgical History H/O colonoscopy History of repair of rectocele S/P breast biopsy S/P section S/P cholecystectomy S/P hysterectomy S/P implantation of urinary electronic stimulator device Family History Father , Age 64 No problems noted. Mother , Age 61 No problems noted. Other Coronary heart disease Denies family history of Ovarian cancer Prostate cancer Crohn's disease Breast cancer Lung cancer Colorectal cancer Social History Smoking Status: Never smoker Second Hand Exposure: No; Do You Dip or Chew Tobacco: No; Hx Alcohol Use: No Hx Substance Use: No Preferred Language: Urdu Communication Ability: Effective Visual Impairment: No Limitations Hearing Ability: Normal Eyelet Punch Operator Required: No Beliefs That Will Affect Care: None marital status: / Current Living Situation: Spouse current occupational status: retired Other Information That Helps Us Care for You: No Feels Safe at Home: Yes Safety Concerns: Feels Safe At This Time Childhood Exposure to Second-Hand Smoke: No Dental Care, Regularly: Yes Physical Activity Frequency: 1-2 Times per Week Physical Activity Frequency Comment: physical therapy Seatbelt Use: always Sunscreen Use: Yes Assistive Devices: Cane, Denture - Upper and Glasses Review of Systems Constitutional: as per Subjective / HPI; no fever and no chills Respiratory: no cough and no dyspnea Cardiovascular: no chest pain and no palpitations Gastrointestinal: as per Subjective / HPI Musculoskeletal: + swelling Physical Exam Constitutional: WD/WN, vitals as above well developed and well nourished Respiratory: normal respiratory effort, lungs clear to auscultation Cardiovascular: Rate/Rhythm: regular rate and regular rhythm Gastrointestinal (Abdomen): normal bowel sounds, soft, nontender, no hepatosplenomegaly Musculoskeletal: Extremities: + lower leg abnormality Bilateral (trace edema) Psychiatric: A+Ox3, euthymic affect Results & Data ([facility]) Vital Signs (Past 12 Hours) Vital Signs Temp Pulse Pulse Resp BP Pulse Ox 08/14/20 08:47 77 18 93 08/14/20 08:03 36.4 C L 68 20 182/83 H 91 08/14/20 07:50 66 08/14/20 04:51 36.4 C L 66 18 104/71 95 08/13/20 23:00 60 Laboratory Results Abnormal lab results 08/13/20 08/13/20 08/13/20 Range/Units 12:58 12:58 13:44 RBC 2.30 L (4.2-5.4) M/uL Hgb 7.7 L (12.0-16.0) g/dL Hct 25.2 L (37-47) % MCV 109.6 H (80-100) fL MCHC 30.6 L (32-36) g/dL RDW Std Deviation 77.2 H (36.4-46.3) fL RDW Coeff of Talia 20.6 H (11.5-14.5) % MPV 12.7 H (7.4-10.4) fL Lymph # (Auto) 0.73 L (1.2-3.4) K/uL Immature Gran # (Auto) 0.04 H (0.00-0.02) K/uL Potassium 3.4 L (3.5-5.1) mmol/L Carbon Dioxide 35 H (21-32) mmol/L BUN 26 H (7-18) mg/dl Creatinine 1.69 H (0.6-1.2) mg/dl Glucose 110 H (70-99) mg/dl POC Glucose (70-99) mg/dl Calcium (8.5-10.1) mg/dl Total Bilirubin 1.6 H (0.2-1) mg/dl CK-MB (CK-2) 7.7 H (0.5-3.6) ng/ml CK/CKMB % Calc 6.3 H (0-3.0) NT-Pro-B Natriuret Pep 7657 H (0-1800) pg/ml Lipase 70 L (73-393) U/L Urine Nitrite (Negative) Urine Bacteria (Auto) (Negative) Crossmatch See Detail 08/13/20 08/13/20 08/14/20 Range/Units 15:49 20:19 05:59 RBC 3.07 L (4.2-5.4) M/uL Hgb 9.8 L (12.0-16.0) g/dL Hct 31.8 L (37-47) % MCV 103.6 H D (80-100) fL MCHC 30.8 L (32-36) g/dL RDW Std Deviation 85.1 H (36.4-46.3) fL RDW Coeff of Tlaia 23.2 H (11.5-14.5) % MPV 12.7 H (7.4-10.4) fL Lymph # (Auto) 0.64 L (1.2-3.4) K/uL Immature Gran # (Auto) (0.00-0.02) K/uL Potassium (3.5-5.1) mmol/L Carbon Dioxide (21-32) mmol/L BUN (7-18) mg/dl Creatinine (0.6-1.2) mg/dl Glucose (70-99) mg/dl POC Glucose 144 H (70-99) mg/dl Calcium (8.5-10.1) mg/dl Total Bilirubin (0.2-1) mg/dl CK-MB (CK-2) (0.5-3.6) ng/ml CK/CKMB % Calc (0-3.0) NT-Pro-B Natriuret Pep (0-1800) pg/ml Lipase (73-393) U/L Urine Nitrite Positive A (Negative) Urine Bacteria (Auto) 1+ H (Negative) Crossmatch 08/14/20 Range/Units 05:59 RBC (4.2-5.4) M/uL Hgb (12.0-16.0) g/dL Hct (37-47) % MCV (80-100) fL MCHC (32-36) g/dL RDW Std Deviation (36.4-46.3) fL RDW Coeff of Talia (11.5-14.5) % MPV (7.4-10.4) fL Lymph # (Auto) (1.2-3.4) K/uL Immature Gran # (Auto) (0.00-0.02) K/uL Potassium 3.2 L (3.5-5.1) mmol/L Carbon Dioxide 33 H (21-32) mmol/L BUN 23 H (7-18) mg/dl Creatinine 1.62 H (0.6-1.2) mg/dl Glucose 142 H (70-99) mg/dl POC Glucose (70-99) mg/dl Calcium 8.4 L (8.5-10.1) mg/dl Total Bilirubin (0.2-1) mg/dl CK-MB (CK-2) (0.5-3.6) ng/ml CK/CKMB % Calc (0-3.0) NT-Pro-B Natriuret Pep (0-1800) pg/ml Lipase (73-393) U/L Urine Nitrite (Negative) Urine Bacteria (Auto) (Negative) Crossmatch PG Care Time/CCT Total # of Minutes Spent Total Time Spent with Patient: Total time spent is greater than 50% in coordination of care (as documented) at patient's floor/unit and/or counseling patient: Coding Level of Care Code 58643 Initial Inpt Care Lvl 3 Diagnoses Anemia D64.9 Anemia type: unspecified type (1) Anemia Anemia type: unspecified type Qualified Code(s): D64.9 - Anemia, unspecified
[2020-08-14] MEDS: TAPENTADOL HCL 50 MG TAB PO PRN (10:48)
[2020-08-14] MEDS: SODIUM CHLORIDE 0.9% 1000ML 1,000 ML IV SCH (10:52)
[2020-08-14] MEDS ORDERED: POTASSIUM CHLORIDE 20 MEQ/15 ML UDC PO ONE (12:00)
--- NOTE | 2020-08-14 13:11 | Consultation Report ---
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 HISTORY OF PRESENT ILLNESS: Tiffanie Porter is a morbidly obese 85-year-old female patient who was admitted to [facility] yesterday because of frequent falls. 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 I had seen this lady about a month ago when she was in-house and was not quite sure at that time why there was a suspicion for hemolytic anemia. I had visited the blood bank and reviewed all of her prior labs and found no evidence of either a cold or warm antibody with this lady. She had a slight decrease in her hemoglobin from a month ago from 8.3 to 7.7. According to Tiffanie, she has not noticed any visible gastrointestinal or genitourinary bleeding. Before coming to her bedside, I went to the blood bank to review her type and screen, at which time a MARLA performed was negative. Thus, there is no direct evidence she is actively hemolyzing. I looked for a reticulocyte count on admission, for which there was none. The patient received 1 unit of blood. She is in the midst of upper and lower GI workup. She offers no specific complaints during my encounter with her today. PAST MEDICAL HISTORY: Again as listed in the HPI. PAST SURGICAL HISTORY: History of colonoscopy, repair of rectocele, breast biopsy, section, cholecystectomy, hysterectomy. CURRENT MEDICATIONS: Include topical lidocaine 4% gel, albuterol inhaler 1-2 puffs inhaled q. 4 hours p.r.n., metoprolol 100 mg p.o. b.i.d., levothyroxine 50 mcg p.o. every day, digoxin 125 mcg p.o. daily, Flonase 1 spray intranasal b.i.d., gabapentin 300 mg p.o. at bedtime, Protonix 40 mg p.o. daily, allopurinol 300 mg p.o. daily, gabapentin 800 mg p.o. t.i.d., duloxetine 60 mg p.o. daily, isosorbide 30 mg p.o. q.a.m., atorvastatin 20 mg p.o. daily, cholecalciferol 2000 units p.o. daily, insulin aspart U-100 7-10 units subQ t.i.d. with meals, Nucynta 100 mg p.o. b.i.d., levetiracetam 250 mg p.o. at bedtime, magnesium oxide 400 mg p.o. b.i.d., diclofenac sodium topical gel 2 grams topical at bedtime p.r.n., potassium chloride 20 mEq p.o. b.i.d., Lantus SoloSTAR insulin 20 units subQ at bedtime, Plavix 75 mg p.o. daily, apixaban 2.5 mg p.o. b.i.d., furosemide 40-80 mg p.o. b.i.d. p.r.n. ALLERGIES: SHELLFISH, IODINE, LISINOPRIL, OXYBUTYNIN, SERTRALINE, PAROXETINE. FAMILY HISTORY: Coronary artery disease predominantly. SOCIAL HISTORY: The patient is a . She is a nonsmoker, nondrinker, non-illicit drug user. REVIEW OF SYSTEMS: GENERAL: Positive for fatigue, generalized weakness, negative for fevers, chills or sweats. She is morbidly obese. SKIN: No rashes or lesions. HEENT: No headaches, lightheadedness, or dizziness. No dysphagia or sore throat. LYMPH: No history of lymphoproliferative disease. CARDIAC: Negative for angina or palpitations. PULMONARY: She is not acutely short of breath, dyspneic, or orthopneic. No cough or hemoptysis. GASTROINTESTINAL: Negative for abdominal pain, nausea, vomiting, diarrhea or constipation, hematochezia or melena stools. GENITOURINARY: No hematuria, dysuria, urinary incontinence. PSYCHIATRIC: Positive for anxiety/depression. ENDOCRINE: Positive for hypothyroidism and diabetes mellitus. MUSCULOSKELETAL: Positive for generalized weakness. No arthralgias or myalgias. NEUROLOGIC: Negative for seizure, stroke, or migraine headache. HEMATOLOGIC: Positive for unexplained anemia. PHYSICAL EXAMINATION: GENERAL: A very pleasant morbidly obese 85-year-old female in no acute distress. VITAL SIGNS: Temperature 36.4, pulse 77, respiratory rate 20, blood pressure 162/79. SKIN: Without rash or lesion. HEAD: Atraumatic, normocephalic. Eyes: PERRLA, EOMI. Nares are patent without rhinorrhea or discharge. Throat clear. Tongue midline. Mucous membranes are moist. NECK: Supple without JVD or thyromegaly. LYMPHATICS: No cervical or supraclavicular palpable nodes. HEART: Regular rate and rhythm. No clicks, rubs, murmurs or gallops. LUNGS: Clear to auscultation bilaterally. ABDOMEN: Obese, soft, nontender, nondistended. EXTREMITIES: No clubbing, cyanosis. Trace peripheral edema, bilateral lower extremities. NEUROLOGICAL: Grossly intact. LABORATORY DATA: WBC count 5280, hemoglobin 9.8, platelet count 232,000, white cell differential unremarkable. She has got 1+ teardrops, 2+ ovalocytes. Sodium 140, potassium 3.2, chloride 100, carbon dioxide 33, creatinine 1.62, BUN 23, total bilirubin slightly elevated at 1.6. BNP 7657. IMPRESSION: 1. Unexplained anemia. Suspect hemolysis. 2. Spinal stenosis. 3. Urinary retention. 4. Peripheral neuropathy. 5. Chronic kidney disease. 6. Atrial fibrillation. 7. Obstructive sleep apnea. PLAN: Tiffanie is a very pleasant morbidly obese 85-year-old who I saw about a month prior for the same reason. I was not convinced at that time she is actually hemolyzing and definitely not convinced at present. There is no indication by MARLA of either cold or warm antibody. Her change coordinator the past month or so has been subtle. Certainly would update her elemental studies, particularly iron, B12 and folate. Reticulocyte count should be checked, perhaps her LDH. I agree with GI workup. This patient is on 2 antiplatelet agents and certainly at high risk for occult bleeding. From a hematologic perspective, my guess would be more of a hypoproliferative anemia, perhaps chronic disease versus renal insufficiency. I could perhaps at some point entertain the possibility of Procrit, but would like to see the patient in the office for outpatient followup. At present time, I cannot see any outward evidence that there is active hemolysis unless I am missing something, please bring it to my attention. I will continue to follow her periodically during her stay. Ideally, I would like to have her scheduled for outpatient followup with either myself or the physician extenders at [facility]. [facility]
[2020-08-14] MEDS ORDERED: LIDOCAINE 2% 2 ML VIAL/AMP(20MG/ML) INFIL ONE (15:00)
[2020-08-14] MEDS ORDERED: PROPOFOL IV EMULSION 10 MG/ML 20 ML VIAL IV ONE (15:00)
--- NOTE | 2020-08-14 15:00 | GI REPORT ---
Patient Name: Tiffanie Porter Procedure Date: 08/14/2020 2:03 PM Date of : 1935 Admit Type: Inpatient Age: 85 Gender: Female Attending MD: Yasmani Mckeon MD Procedure: Upper GI endoscopy Providers: Yasmani Mckeon MD Referring MD: Julián Healy Indications: Unexplained iron deficiency anemia Medicines: Monitored Anesthesia Care Complications: No immediate complications. Estimated blood loss: None. Estimated Blood Loss: Estimated blood loss: none. Procedure: Pre-Anesthesia Assessment: - Prior Anticoagulants: The patient has taken no previous anticoagulant or antiplatelet agents. - ASA Grade Assessment: II - A patient with mild systemic disease. After obtaining informed consent, the endoscope was passed under direct vision. Throughout the procedure, the patient's blood pressure, pulse, and oxygen saturations were monitored continuously. The Endoscope was introduced through the mouth, and advanced to the second part of duodenum. The upper GI endoscopy was accomplished without difficulty. The patient tolerated the procedure well. Findings: The examined esophagus was normal. The duodenal bulb and second portion of the duodenum were normal. The entire examined stomach was normal. Impression: - Normal esophagus. - Normal duodenal bulb and second portion of the duodenum. - Normal stomach. - No specimens collected. Recommendation: - [facility]. Yasmani Mckeon MD 08/14/2020 3:00:12 PM This report has been signed electronically. Note Initiated On: 08/14/2020 2:03 PM Number of Addenda: 0 I attest to the content of the Intraoperative Record and orders documented therein, exceptions below {[id number]}
--- NOTE | 2020-08-14 15:03 | GI REPORT ---
Patient Name: Tiffanie Porter Procedure Date: 08/14/2020 2:02 PM Date of : 1935 Admit Type: Inpatient Age: 85 Gender: Female Attending MD: Yasmani Mckeon MD Procedure: Colonoscopy Providers: Yasmani Mckeon MD Referring MD: Julián Healy Indications: Unexplained iron deficiency anemia Medicines: Monitored Anesthesia Care Complications: No immediate complications. Estimated blood loss: None. Estimated Blood Loss: Estimated blood loss: none. Procedure: Pre-Anesthesia Assessment: - Prior Anticoagulants: The patient has taken no previous anticoagulant or antiplatelet agents. - ASA Grade Assessment: II - A patient with mild systemic disease. After I obtained informed consent, the scope was passed under direct vision. Throughout the procedure, the patient's blood pressure, pulse, and oxygen saturations were monitored continuously. The Colonoscope was introduced through the anus and advanced to the cecum, identified by appendiceal orifice and ileocecal valve. The colonoscopy was performed without difficulty. The patient tolerated the procedure well. The quality of the bowel preparation was fair. Findings: A 5 mm polyp was found in the transverse colon. The polyp was sessile. The polyp was removed with a hot snare. Resection and retrieval were complete. To repair the defect, the tissue edges were approximated and one hemostatic clip was successfully placed. Closure of the defect was successful. There was no bleeding at the end of the procedure. A 8 mm polyp was found in the descending colon. The polyp was sessile. The polyp was removed with a hot snare. Resection and retrieval were complete. To repair the defect, the tissue edges were approximated and two hemostatic clips were successfully placed. Closure of the defect was successful. There was no bleeding at the end of the procedure. A few small-mouthed diverticula were found in the sigmoid colon. Non-bleeding internal hemorrhoids were found. The hemorrhoids were small. Non-bleeding external hemorrhoids were found. The hemorrhoids were medium-sized. No evidence of blood loss nor active bleeding throughout entire colonoscopy. Impression: - Preparation of the colon was fair. - One 5 mm polyp in the transverse colon, removed with a hot snare. Resected and retrieved. Clip was placed. - One 8 mm polyp in the descending colon, removed with a hot snare. Resected and retrieved. Clips were placed. - Diverticulosis in the sigmoid colon. - Non-bleeding internal hemorrhoids. - Non-bleeding external hemorrhoids. Recommendation: - Return patient to [facility] for [facility] care. - Advance diet as tolerated today. - Await pathology results. Yasmani Mckeon MD 08/14/2020 3:02:47 PM This report has been signed electronically. Note Initiated On: 08/14/2020 2:02 PM Number of Addenda: 0 I attest to the content of the Intraoperative Record and orders documented therein, exceptions below {[id number]}
--- NOTE | 2020-08-14 15:21 | Anesthesiology Progress Note ---
Date of Service August 14, 2020 Anesthesia Post Procedure Vital Signs Vital Signs: Temp Pulse Pulse Pulse Resp BP BP 08/14/20 15:17 63 16 148/67 H 08/14/20 15:02 74 16 177/107 H 08/14/20 13:56 36.9 C 78 18 185/93 H 08/14/20 11:32 36.4 C L 77 20 162/79 H 08/14/20 08:47 77 18 08/14/20 08:03 36.4 C L 68 20 182/83 H 08/14/20 07:50 66 08/14/20 04:51 36.4 C L 66 18 104/71 08/13/20 23:00 60 08/13/20 21:04 36.4 C L 57 L 14 150/88 H 08/13/20 20:08 36.4 C L 60 18 160/69 H 08/13/20 19:12 36.4 C L 61 16 08/13/20 19:08 36.4 C L 61 16 173/96 H 08/13/20 18:53 36.4 C L 59 L 18 172/73 H 08/13/20 18:38 36.4 C L 52 L 12 155/64 H 08/13/20 18:23 36.4 C L 62 16 138/59 L 08/13/20 18:15 57 L 18 08/13/20 18:02 36.4 C L 56 L 14 130/54 L 08/13/20 17:31 51 L 13 142/48 H 08/13/20 17:01 64 12 149/80 H 08/13/20 16:53 51 L 12 160/79 H 08/13/20 16:45 53 L 16 08/13/20 16:16 56 L 27 H 08/13/20 16:07 55 L 27 H 102/72 08/13/20 16:02 53 L 26 H 104/36 L 08/13/20 15:47 63 21 117/69 08/13/20 15:30 59 L 20 BP Pulse Ox 08/14/20 15:17 93 08/14/20 15:02 94 08/14/20 13:56 93 08/14/20 11:32 90 08/14/20 08:47 93 08/14/20 08:03 91 08/14/20 07:50 08/14/20 04:51 95 08/13/20 23:00 08/13/20 21:04 94 08/13/20 20:08 94 08/13/20 19:12 173/96 H 97 08/13/20 19:08 98 08/13/20 18:53 94 08/13/20 18:38 97 08/13/20 18:23 99 08/13/20 18:15 146/68 H 96 08/13/20 18:02 96 08/13/20 17:31 96 08/13/20 17:01 95 08/13/20 16:53 93 08/13/20 16:45 97 08/13/20 16:16 76 L 08/13/20 16:07 08/13/20 16:02 08/13/20 15:47 08/13/20 15:30 96 Pain Intensity Bilateral Leg: Pain Intensity: 5 Transfer of Care Handoff Completed per policy Notes Mental Status: alert / awake / arousable and participated in evaluation Patient Amnestic to Procedure: Yes Nausea / Vomiting: adequately controlled Pain: adequately controlled Airway Patency, RR, SpO2: stable & adequate BP & HR: stable & adequate Hydration State: stable & adequate Anesthetic Complications: no major complications apparent and Pt Satisfied with anesthetic care
[2020-08-14] MEDS: DIGOXIN 0.125 MG TAB PO SCH (15:59)
--- NOTE | 2020-08-14 17:31 | Hospitalist Progress Note ---
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 She remains hemodynamically stable. Severe spinal stenosis Of note, patient was recently hospitalized and discharged on 08/05/2020 for ongoing issues with ambulatory dysfunction secondary to her severe spinal stenosis At this previous hospitalization, she was seen by orthopedics, who did offer he r therapeutic surgery, however she understandably wanted to pursue a nonsurgical routes PT and OT at that time had recommended inpatient rehabilitation; patient had denied Patient represents for ongoing ambulatory dysfunction and several falls that had occurred since her previous discharge Noted that patient is on gabapentin, oversedation does not appear to be a problem at present, but will continue to monitor while here Consult PT, OT; appreciate aiding Breana's recommendations for moving forward, including possible placement options We will discuss with case management regarding Ling Cleaning into COVID-19 case burden, patient is primarily reluctant due to concerns regarding anh COVID-19 Begin therapeutic Solu-Medrol 60 mg IV daily to potentially aid with pain/dysfunction borne of the spinal stenosis Concern for urinary retention Bladder scans in the ER and throughout admission have not revealed evidence of urinary retention On history, patient does report that this may have actually represented dehydration/decreased production of urine BMP demonstrating baseline CKD without significant progression Urinalysis without significant abnormalities Continue to monitor; post void residuals, bladder scans as needed Anemia Patient has notable history of anemia, currently of unclear etiology; she has been followed by hematology both in the outpatient and inpatient settings Hemoglobin on her arrival was low at 7.7; she was hemodynamically stable. She received 1 unit of packed red blood cells Hemoglobin stable this morning, consistently demonstrating macrocytosis with MCV of approximately 104 Given ongoing work-up and previous concern for hemolysis, consult hematology; appreciate insight and recommendations Now gross evidence of hemolysis at present Order LDH, reticulocyte count Ordered B12, folate, thiamine levels Proceed with GI work-up Anemia may represent hypoproliferative disease versus secondary to chronic kidney disease Given that this patient is on 2 antiplatelet agents and has an unknown source of anemia, did undergo colonoscopy as well as EGD todaywhile a few polyps were noted in the bowel, there are otherwise no obvious sources of bleeding within the esophagus or large bowel Hold anticoagulation CBC every morning Chronic kidney disease stage III On review of patient's chart, baseline creatinine does appear to be between 1.47 and low 1.6 range Does appear to be at baseline right now Continue to monitor, daily BMPs Chronic medical conditions Atrial fibrillation: Hold apixaban. Patient has slow ventricular response at present, no need for rate control Hypothyroidism: Continue home medications Coronary artery disease: Hold aspirin, Plavix, continue metoprolol and atorvastatin Type 2 diabetes: AC/at bedtime blood sugar checks, continue Lantus 20 and SSI Peripheral neuropathy: Continue gabapentin Code: Full code Prophylaxis: SCDs Diet: Heart healthy, carb consistent Disposition: MedSurg with telemetry (2) Bilateral leg weakness: (3) Peripheral neuropathy: (4) Ambulatory dysfunction: (5) Atrial fibrillation: (6) Obstructive sleep apnea: (7) Hypothyroidism: (8) COPD (chronic obstructive pulmonary disease): (9) GERD (gastroesophageal reflux disease): (10) CAD (coronary artery disease): (11) Diabetes mellitus, type II: (12) Hypertension: (13) Hyperlipidemia: (14) Secondary hyperparathyroidism: (15) Non-STEMI (non-ST elevated myocardial infarction): (16) History of non-ST elevation myocardial infarction (NSTEMI): (17) Spinal stenosis: (18) Generalized osteoarthritis: (19) Cerebrovascular disease: Admission and Anticipated Discharge Date Admission Date: August 13, 2020 Supervising Physician Co-Signing Physician Notes I personally examined the patient and verified all olivarez points of history and exam, discussed case, and agree with decision making with Dr Marcum. Fairly groggy post scope. Overall feeling okay. Minimal HPI review of systems obtainable from me due to her fatigue after the procedure. Vitals noted, she is groggy but awakens easily no distress. HEENT normocephalic atraumatic mucous membranes moist. Breathing unlabored no accessory muscle use good effort. Skin shows no rashes no pallor or icterus. Neuro shows no focal deficits. Weaknessdeconditioning and spinal stenosis, probably also anemia contributing. PT/OT eval and treat. It sounds like she has been reticent to go to any rehab facility due to risk/concern of Covid. I will discuss with case management, but I am not aware of any active outbreaks going on right now, and I will try to discuss further with patient that since she is vaccinated her risk of anh Covid in any sort of a serious way is almost certainly far, far less than her risk of having serious adverse outcomes due to her weakness that keeps landing her back in the hospital. Further, we will give trial to corticosteroids given that it seems like she would be a surgical candidate, possibly we can improve some nerve root compression that way. Anemiaappears to be acute on chronic possibly blood loss given heme positive stools. Appreciate heme-onc input. Transfused 1 unit. Scope noted. CKD 4noted Otherwise as above Subjective Feeling okay this morning, does report feeling somewhat tired. She does report that her back is aching mildly. We did review her history of present illness, no significant changes or additions to add. She reviews her recent hospitalization with me, does restate that she has no interest in pursuing further surgerywhich is completely understandable. She does, however, want increased functional status. Physical therapy has been helpful in the past, however she is hesitant to go to inpatient rehabilitation, citing COVID-19 concerns. We also did review the initial concern for urinary retentionshe says that over the weekend, she was not urinating as much. However, she is unsure if this is better described as less production of urine. She has been urinating since she has been here. She denies any numbness or tingling in her groin/buttock region. Denies any loss of bowel control. Denies any numbness or tingling that is consistent on the legs; however, she does note that she has occasional, shooting pain down both legs that is sometimes associated with numbness. Otherwise, denies any chest pain, palpitations, shortness of breath. She endorses good appetite, reports being hungry to eat. Eager for the EGD today. No other concerns. Review of Systems Review of Systems: As per HPI Physical Exam Physical Exam: General: 85-year-old female who is alert, oriented, and appears tired, but in NAD. HEENT: NCAT. Eyes - Sclera are white, anicteric, and without injection. PERRL. EOMs display full ROM bilaterally. Mouth - MMM with no tonsillar edema or exudates. Cardiac: Normal rate and irregular rhythm; S1 and S2 present with no murmurs, rubs, or gallops. Pulmonary: Good respiratory effort with symmetric expansion of the chest. No use of accessory muscles. Lungs were clear to auscultation bilaterally with no crackles or wheezes. Abdominal: Normoactive bowel sounds. Abdomen was soft, nondistended, and non- tender to palpation. No hepatomegaly or splenomegaly. Back: Point tenderness appreciated over lumbar spine. No paraspinal tenderness. Lower extremity strength approx. 4/5 bilaterally. Sensation grossly intact. Reflexes 2+ b/l. No clonus. Results & Data Results & Data ([facility]) Vital Signs (Past 12 Hours) Vital Signs Temp Pulse Pulse Resp BP Pulse Ox 08/14/20 15:17 63 16 148/67 H 93 08/14/20 15:02 74 16 177/107 H 94 08/14/20 13:56 36.9 C 78 18 185/93 H 93 08/14/20 11:32 36.4 C L 77 20 162/79 H 90 08/14/20 08:47 77 18 93 08/14/20 08:03 36.4 C L 68 20 182/83 H 91 08/14/20 07:50 66 08/14/20 04:51 36.4 C L 66 18 104/71 95 Resident Activity Tracking Resident Involvement: Resident Care Provided Care Provided: Adult Hospital Medicine (1) Atrial fibrillation Atrial fibrillation type: unspecified Qualified Code(s): I48.91 - Unspecified atrial fibrillation (2) Hypothyroidism Hypothyroidism type: unspecified Qualified Code(s): E03.9 - Hypothyroidism, unspecified (3) GERD (gastroesophageal reflux disease) Esophagitis presence: esophagitis presence not specified Qualified Code(s): K21.9 - Gastro-esophageal reflux disease without esophagitis
[2020-08-14] MEDS: FUROSEMIDE 40 MG TAB PO SCH (17:32)
--- NOTE | 2020-08-14 18:19 | Billing Data ---
Date of Service August 14, 2020 Coding Level of Care Code 73769 Subseq Hosp Care Lvl 3
[2020-08-14] MEDS: ACETAMINOPHEN 325 MG TAB PO SCH (20:24)
[2020-08-14] MEDS: levETIRAcetam 250 MG TAB PO SCH (20:24)
[2020-08-14] MEDS: ATORVASTATIN 20 MG TAB PO SCH (20:24)
[2020-08-14] MEDS: INSULIN GLARGINE SOLOSTAR 100 UNITS/ML 3 ML PEN SQ SCH (21:11)
[2020-08-15] MEDS: LEVOTHYROXINE SODIUM 50 MCG TABLET PO SCH (05:58)
[2020-08-15 06:53] LABS: Basophils # (auto) 0.01 K/uL (0-0.2); Basophils % (auto) 0.2 %; Eosinophils # (auto) 0.43 K/uL (0-0.5); Eosinophils % (auto) 7.8 %; Hemoglobin 8.9 g/dL (12.0-16.0); Immature Granulocytes # (auto) 0.03 K/uL (0.00-0.02); Immature Granulocytes % (auto) 0.5 %; Lymphocytes # (auto) 0.59 K/uL (1.2-3.4); Lymphocytes % (auto) 10.6 %; Mean Corpuscular Hemoglobin 32.1 pg (25-34); Mean Corpuscular Hgb Conc 30.7 g/dL (32-36); Mean Corpuscular Volume 104.7 fL (80-100); Mean Platelet Volume 12.4 fL (7.4-10.4); Monocytes % (auto) 7.2 %; Neutrophils # (auto) 4.08 K/uL (1.4-6.5); Neutrophils % (auto) 73.7 %; Platelet Count 163 K/uL (130-400); RDW Coefficient of Variation 22.4 % (11.5-14.5); Red Blood Count 2.77 M/uL (4.2-5.4); Reticulocyte % 6.1 % (0.5-2.0); Reticulocytes # 0.17 10^6/uL (0.02-0.10); White Blood Count 5.54 K/uL (4.8-10.8)
[2020-08-15 07:13] LABS: Anisocytosis Present; Ovalocytes 1+
[2020-08-15 07:51] LABS: Albumin Level 3.2 gm/dl (3.4-5.0); BUN Creatinine Ratio 14.7 (10-20); Calcium 8.5 mg/dl (8.5-10.1); Creatinine Clr Calc Pharmacy 27.6 ml/min; Est GFR (African American) 38.5; Est GFR (Non-African American) 33.2; Potassium 3.6 mmol/L (3.5-5.1)
[2020-08-15 08:07] LABS: Bilirubin,Total 2.6 mg/dl (0.2-1); Globulin 3.2 gm/dl (2.5-4.0); Total Protein 6.4 gm/dl (6.4-8.2)
[2020-08-15] MEDS: allopurinoL 300 MG TAB PO SCH (08:10)
[2020-08-15] MEDS: POTASSIUM CHLORIDE CRTAB 20 MEQ TABCR PO SCH ×2 (08:10→17:23)
[2020-08-15] MEDS: methylPREDNISolone 60 MG in SYRINGE 0 ML IV SCH (08:10)
[2020-08-15] MEDS: PANTOprazole 40 MG TAB PO SCH (08:11)
[2020-08-15] MEDS: METOPROLOL SUCC 50MG EXT REL TAB PO SCH ×2 (08:11→20:25)
[2020-08-15] MEDS: DULoxetine HCL 60 MG CAP PO SCH (08:11)
[2020-08-15] MEDS: GABAPENTIN 800 MG TAB PO SCH ×3 (08:11→20:26)
[2020-08-15] MEDS: CHOLECALCIFEROL 1,000 UNITS 25 MCG TAB PO SCH (08:12)
[2020-08-15] MEDS: ISOSORBIDE MONO EXTENDED REL 30 MG TABCR PO SCH (08:12)
[2020-08-15] MEDS: FUROSEMIDE 80 MG TAB PO SCH (08:12)
[2020-08-15] MEDS ORDERED: PANTOprazole 40 MG TAB PO SCH (09:00)
--- NOTE | 2020-08-15 09:01 | Progress Notes ---
DATE: 08/15/2020 HEMATOLOGY PROGRESS NOTE DIAGNOSES: 1. Unexplained anemia/reticulocytosis. 2. Spinal stenosis. 3. Urinary retention. 4. Peripheral neuropathy. 5. Chronic kidney disease. 6. Obstructive sleep apnea. 7. Atrial fibrillation. SUBJECTIVE: Tiffanie was seen and examined at bedside. Her spirits appeared to be bright. She underwent both colonoscopy and EGD with a few polyps noted, but no obvious bleeding source is identified within the upper and lower GI tract. Anticoagulation is currently on hold. The patient reports no pain or discomfort. Awaiting anemia panel to result before making recommendations. Nursing voices no overnight concerns. OBJECTIVE: GENERAL: A very pleasant morbidly obese 85-year-old elderly female in no acute distress. VITAL SIGNS: Temperature 36.5, pulse 61, respiratory rate 18, blood pressure 149/82. SKIN: Without rash or lesion. HEENT: Oral mucosa without erythema or ulceration. HEART: Regular rate and rhythm. LUNGS: Clear to auscultation bilaterally. ABDOMEN: Obese, soft, nontender, nondistended. EXTREMITIES: No clubbing, cyanosis, or edema. NEUROLOGICAL: Nonfocal. LABORATORY DATA: Pending. RADIOGRAPHIC DATA: CT scan of the abdomen and pelvis performed on 08/13/2020, no acute intraabdominal or intrapelvic anomalies, decreased size of small bilateral pleural effusions. IMPRESSION: 1. Unexplained anemia/reticulocytosis. 2. Spinal stenosis. 3. Urinary retention. 4. Peripheral neuropathy. 5. Chronic kidney disease. 6. Atrial fibrillation. 7. Obstructive sleep apnea. PLAN: Tiffanie is a very pleasant morbidly obese 85-year-old I saw roughly a month ago for unexplained anemia. Again, I reviewed blood bank data and previous MARLA which did not indicate the presence of either warm or cold antibody. That said, could there be a mechanically induced hemolysis, quite rare, but certainly within the realm of possibilities.. 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 We will wait for those labs to result before making formal recommendation. Continue to monitor her counts on a daily basis. Perhaps camera endoscopy at some point may be in order too to fully evaluate the GI tract for occult bleeding. We will continue to follow periodically during her hospital stay. UT[facility] PSYCHIATRIC CENTERYessica
[2020-08-15 09:18] LABS: Folate (Folic Acid) 16.2 ng/ml (>5.38)
[2020-08-15] MEDS: INSULIN ASPART 100 UNITS/ML 3 ML PEN SC SCH ×4 (09:18→21:22)
--- NOTE | 2020-08-15 09:52 | Gastroenterology Progress Note ---
Date of Service August 15, 2020 Assessment & Plan (1) Anemia: 1. No findings on EGD or colonoscopy to explain anemia. 2. Defer to hematology. 3. Continue supportive care. Will sign off at this time. Thank you for allowing us to participate in the care of this patient. If you have any questions or concerns, please do not hesitate to contact us. Admission and Anticipated Discharge Date Admission Date: August 13, 2020 Subjective Patient reports she is feeling well. Status post EGD and colonoscopy. No source of GIB. Seen by hematology. No GIB symptoms. Tolerating diet. Hemoglobin 8.9 today. Review of Systems Constitutional: no problem reported Gastrointestinal: as per Subjective / HPI Physical Exam Constitutional: well developed and well nourished Eyes: EOM intact bilaterally Neck: normal visual inspection Respiratory: normal respiratory effort Skin: normal color Psychiatric: A+Ox3, euthymic affect Results & Data Results & Data ([facility]) Vital Signs (Past 12 Hours) Vital Signs Temp Pulse Pulse Resp BP BP Pulse Ox 08/15/20 06:41 36.5 C 61 18 149/82 H 94 08/15/20 03:49 36.6 C 87 20 116/52 L 94 08/15/20 03:15 54 L 12 90 08/14/20 23:00 36.6 C 87 20 162/72 H 93 08/14/20 22:20 56 L 08/14/20 22:15 77 13 94 Laboratory Results Abnormal lab results 08/14/20 08/14/20 08/14/20 Range/Units 12:29 17:09 20:19 RBC (4.2-5.4) M/uL Hgb (12.0-16.0) g/dL Hct (37-47) % MCV (80-100) fL MCHC (32-36) g/dL RDW Std Deviation (36.4-46.3) fL RDW Coeff of Talia (11.5-14.5) % MPV (7.4-10.4) fL Reticulocyte % (Auto) (0.5-2.0) % Lymph # (Auto) (1.2-3.4) K/uL Reticulocyte # (0.02-0.10) 10^6/uL Immature Gran # (Auto) (0.00-0.02) K/uL BUN (7-18) mg/dl Creatinine (0.6-1.2) mg/dl POC Glucose 164 H 125 H 177 H (70-99) mg/dl Total Bilirubin (0.2-1) mg/dl Lactate Dehydrogenase (84-246) U/L Albumin (3.4-5.0) gm/dl Vitamin B12 (193-986) pg/ml 08/15/20 08/15/20 08/15/20 Range/Units 06:19 06:19 06:19 RBC 2.77 L (4.2-5.4) M/uL Hgb 8.9 L (12.0-16.0) g/dL Hct 29.0 L (37-47) % MCV 104.7 H (80-100) fL MCHC 30.7 L (32-36) g/dL RDW Std Deviation 83.0 H (36.4-46.3) fL RDW Coeff of Talia 22.4 H (11.5-14.5) % MPV 12.4 H (7.4-10.4) fL Reticulocyte % (Auto) 6.1 H (0.5-2.0) % Lymph # (Auto) 0.59 L (1.2-3.4) K/uL Reticulocyte # 0.17 H (0.02-0.10) 10^6/uL Immature Gran # (Auto) 0.03 H (0.00-0.02) K/uL BUN 21 H (7-18) mg/dl Creatinine 1.45 H (0.6-1.2) mg/dl POC Glucose (70-99) mg/dl Total Bilirubin 2.6 H D (0.2-1) mg/dl Lactate Dehydrogenase 599 H (84-246) U/L Albumin 3.2 L (3.4-5.0) gm/dl Vitamin B12 (193-986) pg/ml 08/15/20 08/15/20 Range/Units 06:19 07:14 RBC (4.2-5.4) M/uL Hgb (12.0-16.0) g/dL Hct (37-47) % MCV (80-100) fL MCHC (32-36) g/dL RDW Std Deviation (36.4-46.3) fL RDW Coeff of Talia (11.5-14.5) % MPV (7.4-10.4) fL Reticulocyte % (Auto) (0.5-2.0) % Lymph # (Auto) (1.2-3.4) K/uL Reticulocyte # (0.02-0.10) 10^6/uL Immature Gran # (Auto) (0.00-0.02) K/uL BUN (7-18) mg/dl Creatinine (0.6-1.2) mg/dl POC Glucose 113 H (70-99) mg/dl Total Bilirubin (0.2-1) mg/dl Lactate Dehydrogenase (84-246) U/L Albumin (3.4-5.0) gm/dl Vitamin B12 1048 H (193-986) pg/ml PG Care Time/CCT Total # of Minutes Spent Total Time Spent with Patient: Total time spent is greater than 50% in coordination of care (as documented) at patient's floor/unit and/or counseling p atient: Coding Level of Care Code 06400 Subseq Hosp Care Lvl 3 Diagnoses Anemia D64.9 Anemia type: unspecified type (1) Anemia Anemia type: unspecified type Qualified Code(s): D64.9 - Anemia, unspecified
[2020-08-15] MEDS: DICLOFENAC SOD 1% GEL 100 GM TUBE EXT PRN ×2 (10:01→21:23)
[2020-08-15] MEDS: MAGNESIUM OXIDE 400 MG TAB PO SCH ×2 (10:55→20:26)
[2020-08-15] MEDS: TAPENTADOL HCL 50 MG TAB PO PRN (13:44)
--- NOTE | 2020-08-15 15:28 | XCELERA ---
[id number]
[2020-08-15] MEDS: DIGOXIN 0.125 MG TAB PO SCH (16:10)
[2020-08-15] MEDS: FUROSEMIDE 40 MG TAB PO SCH (17:23)
--- NOTE | 2020-08-15 19:05 | Hospitalist Progress Note ---
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 She remains hemodynamically stable. Severe spinal stenosis Of note, patient was recently hospitalized and discharged on 08/05/2020 for ongoing issues with ambulatory dysfunction secondary to her severe spinal stenosis At this previous hospitalization, she was seen by orthopedics, who did offer her therapeutic surgery, however she understandably wanted to pursue a nonsurgical routes PT and OT at that time had recommended inpatient rehabilitation; patient had denied Patient represents for ongoing ambulatory dysfunction and several falls that had occurred since her previous discharge Noted that patient is on gabapentin, oversedation does not appear to be a problem at present, but will continue to monitor while here Anemia may be contributing to this too Consult PT, OT; appreciate aiding in recommendations for moving forward, including possible placement options -Recommend skilled inpatient services prior to going back home w/ HH given progressive functional decline, ambulatory dysfunction Patient reluctant to go to inpatient rehab 2/2 COVID-19 concerns -- she is fully vaccinated and case loads she be minimal if not zero at [facility] - amenable to the idea after discussion today. Will discuss w/ patient tomorrow. - Noted to PT that she may be amenable for 1-10 days Begin therapeutic Solu-Medrol 60 mg IV daily to potentially aid with pain/dysfunction borne of the spinal stenosis Anemia Patient has notable history of anemia, currently of unclear etiology; she has been followed by hematology both in the outpatient and inpatient settings Hemoglobin on her arrival was low at 7.7; she was hemodynamically stable. She received 1 unit of packed red blood cells Hemoglobin stable this morning, consistently demonstrating macrocytosis with MCV of approximately 104 Given ongoing work-up and previous concern for hemolysis, consult hematology; appreciate insight and recommendations. Work-up/recs as follows: No gross evidence of hemolysis at present Noted- LDH 599, reticulocytosis to 0.17 No previous evidence of warm/cold antibodies Folate, B12 (high) wnl Scoping without obvious source of bleeding per GI Order echocardiography to r/o mechanical-valve mediated microangiopathy Anemia may represent hypoproliferative disease versus secondary to chronic kidney disease Hold anticoagulation CBC every morning Chronic kidney disease stage III On review of patient's chart, baseline creatinine does appear to be between 1.47 and low 1.6 range Does appear to be at baseline right now Continue to monitor, daily BMPs Concern for urinary retention Bladder scans in the ER and throughout admission have not revealed evidence of urinary retention On history, patient does report that this may have actually represented dehydration/decreased production of urine BMP demonstrating baseline CKD without significant progression Urinalysis without significant abnormalities Continue to monitor -- voiding freely without difficulties at present Chronic medical conditions Atrial fibrillation: Hold apixaban. Patient has slow ventricular response at present, no need for rate control Hypothyroidism: Continue home medications Coronary artery disease: Hold aspirin, Plavix, continue metoprolol and atorvastatin Type 2 diabetes: AC/at bedtime blood sugar checks, continue Lantus 20 and SSI Peripheral neuropathy: Continue gabapentin Code: Full code Prophylaxis: SCDs Diet: Heart healthy, carb consistent Disposition: MedSurg with telemetry (2) Bilateral leg weakness: (3) Peripheral neuropathy: (4) Atrial fibrillation: (5) Obstructive sleep apnea: (6) Hypothyroidism: (7) COPD (chronic obstructive pulmonary disease): (8) GERD (gastroesophageal reflux disease): (9) CAD (coronary artery disease): (10) Diabetes mellitus, type II: (11) Hypertension: (12) Hyperlipidemia: (13) Secondary hyperparathyroidism: (14) Non-STEMI (non-ST elevated myocardial infarction): (15) History of non-ST elevation myocardial infarction (NSTEMI): (16) Spinal stenosis: (17) Generalized osteoarthritis: (18) Cerebrovascular disease: Admission and Anticipated Discharge Date Admission Date: August 13, 2020 Supervising Physician Co-Signing Physician Notes I personally examined the patient and verified all olivarez points of history and exam, discussed case, and agree with decision making with Dr Marcum. feeling ok mostly weak and tired. worried about going to rehab because of covid. has had the vaccine x 2 doses >2wks ago. has BETHANY but does not wear CPAP - when she used to have to take care of she wouldn't wear it so she could hear him, just never got back in the habit. knows that she's weak. Vitals noted, aao pleasant no distress. HEENT normocephalic atraumatic mucous membranes moist. Breathing unlabored no accessory muscle use good effort. Skin shows no rashes no pallor or icterus. Neuro shows no focal deficits. Weaknessdeconditioning and spinal stenosis, possibly also anemia contributing. PT/OT eval and treat. She has been reticent to go to any rehab facility due to risk/concern of Covid. Discussed with her frankly the efficacy of the vaccine, and the much higher likelihood of a relative risk of a bad outcome due to falls at home or further decline from deconditioning leading to a permanently debilitated state compared to her risk of getting seriously ill with Covid at a facility now that she has been vaccinated. Giving trial to corticosteroids given that it seems like she would be a surgical candidate, possibly we can improve some nerve root compression that way. Anemiaappears to be acute on chronic possibly blood loss given heme positive stools. Transfused 1 unit. Scope without a source, consider capsule endoscopy. B12 and folate are okay, check iron studies even though she is macrocytic. Echo for completeness due to hematology noting that mechanical hemolysis while unlikely could still be possible. I suspect more than anything she is probably got some degree of chronic blood loss from something like small bowel AVMs, and an inadequate response either due to CKD, or possibly iron deficiency. Serial CBCs, might need as needed transfusions in the future. CKD 4noted Otherwise as above Subjective Feeling well this AM. Tired, but fully alert/oriented. Minimal pain. Looking forward to PT,OT. She did get COVID vaccinations x 2, Moderna. Review of Systems Review of Systems: as per HPI Physical Exam Physical Exam: General: 85-year-old female who is alert, oriented when conversing. Tired. NAD. HEENT: NCAT. Eyes - Sclera are white, anicteric, and without injection. PERRL. EOMs display full ROM bilaterally. Mouth - MMM with no tonsillar edema or exudates. Cardiac: Normal rate and irregular rhythm; S1 and S2 present with no murmurs, rubs, or gallops. Pulmonary: Good respiratory effort with symmetric expansion of the chest. No use of accessory muscles. Lungs were clear to auscultation bilaterally with no crackles or wheezes. Abdominal: Normoactive bowel sounds. Abdomen was soft, nondistended, and non- tender to palpation. No hepatomegaly or splenomegaly. Extremities: 5/5 strength at the great toe b/l. Minimal peripheral edema. Results & Data Results & Data ([facility]) Vital Signs (Past 12 Hours) Vital Signs Temp Pulse Pulse Resp BP Pulse Ox 08/15/20 16:30 70 08/15/20 16:10 82 08/15/20 11:35 36.7 C 81 20 121/57 L 92 08/15/20 09:00 54 L Resident Activity Tracking Resident Involvement: Resident Care Provided Care Provided: Adult [facility] Medicine (1) Atrial fibrillation Atrial fibrillation type: unspecified Qualified Code(s): I48.91 - Unspecified atrial fibrillation (2) Hypothyroidism Hypothyroidism type: unspecified Qualified Code(s): E03.9 - Hypothyroidism, unspecified (3) GERD (gastroesophageal reflux disease) Esophagitis presence: esophagitis presence not specified Qualified Code(s): K21.9 - Gastro-esophageal reflux disease without esophagitis
--- NOTE | 2020-08-15 19:29 | Billing Data ---
Date of Service August 15, 2020 Coding Level of Care Code 11475 Subseq Hosp Care Lvl 3
[2020-08-15] MEDS: ATORVASTATIN 20 MG TAB PO SCH (20:26)
[2020-08-15] MEDS: ACETAMINOPHEN 325 MG TAB PO SCH (20:26)
[2020-08-15] MEDS: levETIRAcetam 250 MG TAB PO SCH (20:26)
[2020-08-15] MEDS: INSULIN GLARGINE SOLOSTAR 100 UNITS/ML 3 ML PEN SQ SCH (21:22)
[2020-08-16] MEDS: LEVOTHYROXINE SODIUM 50 MCG TABLET PO SCH (06:12)
[2020-08-16 06:38] LABS: Microcytosis Present; Schistocytes 1+
--- NOTE | 2020-08-16 07:05 | Hospitalist Progress Note ---
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 She remains hemodynamically stable. Severe spinal stenosis Of note, patient was recently hospitalized and discharged on 08/05/2020 for ongoing issues with ambulatory dysfunction secondary to her severe spinal stenosis At this previous hospitalization, she was seen by orthopedics, who did offer her therapeutic surgery, however she understandably wanted to pursue a nonsurgical routes PT and OT at that time had recommended inpatient rehabilitation; patient had denied Patient represents for ongoing ambulatory dysfunction and several falls that had occurred since her previous discharge Noted that patient is on gabapentin, oversedation does not appear to be a problem at present will monitor Anemia may be contributing to this too Consult PT, OT; appreciate aiding in recommendations for moving forward, including possible placement options -Recommend skilled inpatient services prior to going back home w/ HH given progressive functional decline, ambulatory dysfunction After extensive discussions with patient and family, will attempt to obtain placement at [facility] -- CM on board and aiding Continue Solu-Medrol 60 mg IV daily to potentially aid with pain/dysfunction borne of the spinal stenosis Macrocytic Anemia -- primary suspicion is that anemia represents chronic GI losses given heme-positive stools, also possible contribution from hypoproliferation Patient has notable history of anemia, currently of unclear etiology; she has been followed by hematology both in the outpatient and inpatient settings Hemoglobin on her arrival was low at 7.7; received 1 unit of packed red blood cells Subsequently stabilized around the ~9 range on daily labs Given ongoing work-up and previous concern for hemolysis, consult hematology; appreciate insight and recommendations. Work-up/recs as follows: No gross evidence of hemolysis at present Noted- LDH elevated to 599, reticulocytosis to 0.17 No previous evidence of warm/cold antibodies Folate, B12 (high) wnl Iron studies normal Scoping without obvious source of bleeding per GI, however heme(+) stools Consider pill endoscopy as outpatient Order echocardiography to r/o mechanical-valve mediated microangiopathy -- no abnormalities Anemia may represent component too of hypoproliferative disease from chronic kidney disease Hold anticoagulation CBC every morning Chronic kidney disease stage IV On review of patient's chart, baseline creatinine does appear to be between 1.47 and low 1.6 range Does appear to be at baseline right now Continue to monitor, daily BMPs Pulmonary Hypertension - Echocardiography on 08/15 notable for new, severe pulmonary hypertension (RVSP 85) - Patient does admit not being very compliant with CPAP and has known h/o BETHANY -- suspect largely 2/2 this - In chart, COPD is noted as a problem but on review, does not appear that she has ever been worked up for this -- no smoking hx - Has h/o CHF as well, but does appear mild overall and do not suspect this is contributing on a major scale - BETHANY control - continue w/ CPAP, may need sleep study / further outpatient w/u to optimize treatment Concern for urinary retention Bladder scans in the ER and throughout admission have not revealed evidence of urinary retention On history, patient does report that this may have actually represented dehydration/decreased production of urine BMP demonstrating baseline CKD without significant progression Urinalysis without significant abnormalities Continue to monitor -- voiding freely without difficulties at present Chronic medical conditions Atrial fibrillation: Hold apixaban. Patient has slow ventricular response at present, no need for rate control Hypothyroidism: Continue home medications Coronary artery disease: Hold aspirin, Plavix, continue metoprolol and atorvastatin Type 2 diabetes: AC/at bedtime blood sugar checks, continue Lantus 20 and SSI Peripheral neuropathy: Continue gabapentin Code: Full code Prophylaxis: SCDs Diet: Heart healthy, carb consistent Disposition: MedSurg with telemetry --> CM currently working on possible placement at inpatient rehab (2) Bilateral leg weakness: (3) Peripheral neuropathy: (4) Atrial fibrillation: (5) Obstructive sleep apnea: (6) Hypothyroidism: (7) COPD (chronic obstructive pulmonary disease): (8) GERD (gastroesophageal reflux disease): (9) CAD (coronary artery disease): (10) Diabetes mellitus, type II: (11) Hypertension: (12) Hyperlipidemia: (13) Secondary hyperparathyroidism: (14) Non-STEMI (non-ST elevated myocardial infarction): (15) History of non-ST elevation myocardial infarction (NSTEMI): (16) Spinal stenosis: (17) Generalized osteoarthritis: (18) Cerebrovascular disease: Admission and Anticipated Discharge Date Admission Date: August 13, 2020 Supervising Physician Co-Signing Physician Notes I personally examined the patient and verified all olivarez points of history and exam, discussed case, and agree with decision making with Dr Marcum. sleeping comfortably - in d/w dr marcum /dr castellanos, pt now ok w rehab - just waiting on insurance process Vitals noted, resting comfortably, no distress. HEENT normocephalic atraumatic mucous membranes moist. Breathing unlabored no accessory muscle use good effort. Skin shows no rashes no pallor or icterus. Neuro shows no focal deficits. Weaknessdeconditioning and spinal stenosis, possibly also anemia contributing. PT/OT eval and treat. She had been reticent to go to any rehab facility due to risk/concern of Covid. after discussion of vaccine efficacy and risk for bad outcomes from deconditioning/weakness/fall risk vs risk of covid now that she's vaccinated, she is now more amenable Giving trial to corticosteroids given that it seems like she would be a surgical candidate, possibly we can improve some nerve root compression that way. Anemiaappears to be acute on chronic possibly blood loss given heme positive stools. Transfused 1 unit. Scope without a source, consider capsule endoscopy. Iron studies pending. I suspect more than anything she is probably got some de gree of chronic blood loss from something like small bowel AVMs, and an inadequate response either due to CKD, or possibly iron deficiency. Serial CBCs, might need as needed transfusions in the future. pulmonary HTN - likely from untreated sleep apnea. amenable to repeat sleep study/CPAP - notes that efforts to take care of her was largely why she fell out of using it in the past CKD 4noted Otherwise as above Subjective Feeling OK. endorses a lot of family stress going on at home that is making being in the hospital more difficult. She says her back pain is noticeable right now, but not terrible -- knee pain the same. No different than yesterday. Did say she had urinary incontinence x 1 yesterday, which is not unusual for her. Says she normally wears Depends for this reason. No numbness in the groin or buttock region. No chest pain, shortness of breath. Review of Systems Review of Systems: as per HPI Physical Exam Physical Exam: General: 85yoF who is awake and sitting in her chair. Freely engaged and interactive - more-so than yesterday. She is intermittently tearful when describing life stressors. NAD. HEENT: NCAT. Eyes - Sclera are white, anicteric, and without injection. PERRL. Neck - no JVD Cardiac: Normal rate and irregular rhythm; S1 and S2 present with 2/6 MEENAKSHI best heard at the RUSB. Pulmonary: Good respiratory effort with symmetric expansion of the chest. No use of accessory muscles. Lungs demonstrating very mild, scattered wheezes throughout the lung ta - nonspecific. Abdominal: Normoactive bowel sounds. Abdomen was soft, nondistended, and non- tender to palpation. No hepatomegaly or splenomegaly. Extremities: 5/5 strength in the LEs b/l. Sensation to light touch grossly in- tact Results & Data Results & Data ([facility]) Vital Signs (Past 12 Hours) Vital Signs Temp Pulse Pulse Resp BP Pulse Ox Pulse Ox 08/16/20 03:23 65 18 92 08/16/20 03:17 37.0 C 88 20 152/80 H 96 08/15/20 23:22 36.8 C 66 91 H 16 184/76 H 97 08/15/20 20:54 92 08/15/20 19:13 36.5 C 76 20 164/67 H 90 Resident Activity Tracking Resident Involvement: Resident Care Provided Care Provided: Adult Hospital Medicine (1) Atrial fibrillation Atrial fibrillation type: unspecified Qualified Code(s): I48.91 - Unspecified atrial fibrillation (2) Hypothyroidism Hypothyroidism type: unspecified Qualified Code(s): E03.9 - Hypothyroidism, unspecified (3) GERD (gastroesophageal reflux disease) Esophagitis presence: esophagitis presence not specified Qualified Code(s): K21.9 - Gastro-esophageal reflux disease without esophagitis
[2020-08-16 07:40] LABS: Basophils # (auto) 0.01 K/uL (0-0.2); Basophils % (auto) 0.1 %; Eosinophils # (auto) 0.18 K/uL (0-0.5); Hematocrit (blood only) 29.6 % (37-47); Immature Granulocytes # (auto) 0.02 K/uL (0.00-0.02); Immature Granulocytes % (auto) 0.2 %; Lymphocytes # (auto) 0.71 K/uL (1.2-3.4); Lymphocytes % (auto) 7.9 %; Mean Corpuscular Hemoglobin 31.8 pg (25-34); Mean Corpuscular Hgb Conc 30.4 g/dL (32-36); Mean Corpuscular Volume 104.6 fL (80-100); Mean Platelet Volume 11.8 fL (7.4-10.4); Monocytes % (auto) 6.7 %; Neutrophils # (auto) 7.46 K/uL (1.4-6.5); Neutrophils % (auto) 83.1 %; Nucleated RBC # (auto) 0.03 K/uL (0-0); Nucleated RBC % (auto) 0.3 %; Platelet Count 221 K/uL (130-400); RDW Coefficient of Variation 21.7 % (11.5-14.5); Red Blood Count 2.83 M/uL (4.2-5.4); White Blood Count 8.98 K/uL (4.8-10.8)
[2020-08-16 08:17] LABS: Ovalocytes 1+
[2020-08-16 08:23] LABS: BUN Creatinine Ratio 17.1 (10-20); Calcium 9.3 mg/dl (8.5-10.1); Est GFR (African American) 30.7 ml/min; Est GFR (Non-African American) 26.5 ml/min; Potassium 3.7 mmol/L (3.5-5.1)
[2020-08-16 08:27] LABS: Ferritin 70.9 ng/ml (8-388)
[2020-08-16] MEDS: INSULIN ASPART 100 UNITS/ML 3 ML PEN SC SCH ×4 (09:19→20:41)
[2020-08-16] MEDS: ISOSORBIDE MONO EXTENDED REL 30 MG TABCR PO SCH (09:23)
[2020-08-16] MEDS: GABAPENTIN 800 MG TAB PO SCH ×3 (09:23→20:18)
[2020-08-16] MEDS: methylPREDNISolone 60 MG in SYRINGE 0 ML IV SCH (09:23)
[2020-08-16] MEDS: allopurinoL 300 MG TAB PO SCH (09:23)
[2020-08-16] MEDS: METOPROLOL SUCC 50MG EXT REL TAB PO SCH ×2 (09:23→20:19)
[2020-08-16] MEDS: POTASSIUM CHLORIDE CRTAB 20 MEQ TABCR PO SCH ×2 (09:23→16:47)
[2020-08-16] MEDS: DULoxetine HCL 60 MG CAP PO SCH (09:23)
[2020-08-16] MEDS: CHOLECALCIFEROL 1,000 UNITS 25 MCG TAB PO SCH (09:23)
[2020-08-16] MEDS: FUROSEMIDE 80 MG TAB PO SCH (09:23)
[2020-08-16] MEDS: MAGNESIUM OXIDE 400 MG TAB PO SCH ×2 (09:23→20:18)
[2020-08-16] MEDS: PANTOprazole 40 MG TAB PO SCH (09:23)
[2020-08-16] MEDS: DICLOFENAC SOD 1% GEL 100 GM TUBE EXT PRN (09:28)
[2020-08-16] MEDS: FUROSEMIDE 40 MG TAB PO SCH (16:47)
[2020-08-16] MEDS: DIGOXIN 0.125 MG TAB PO SCH (16:47)
--- NOTE | 2020-08-16 17:36 | Billing Data ---
Date of Service August 16, 2020 Coding Level of Care Code 51321 Subseq Hosp Care Lvl 1
--- NOTE | 2020-08-16 18:37 | Communication Note ---
Date of Service: August 16, 2020 S/ Called up to patient's bedside to evaluate R foot pain. Patient says that a heavyset individual had stepped on her foot while she was walking approx. 4-5 days ago; pain has been increasing since that time. Describes that it seems like the bruising has gotten worse too. She says that she's still able to walk but it hurts quite significantly. Very tender to palpation. Wondering if she should get an XR O/ Dorsum of right foot demonstrating quite a significant ecchymosis at the distal aspect of the MTPs extending to their proximal portions; this extended just mildly into the toes. Nothing observed on the pad of the foot. Otherwise foot appears well perfused. The gentlest touch to this area caused significant amount of pain causing pt to retract foot. No obvious deformities from what could be appreciated (though objective palpation exam limited by pain). Mild TTP over the lateral malleolus. No pain over the toes. No pain over the tarsal/metatarsal bones via the pad. Capillary refill < 3 seconds. A+P/ R Foot Injury x 5 Days Ago. Ecchymosis over the dorsum of the R foot is quite significant and is +TTP. She reports it is limiting mobility for her, although she can bare weight. Think a good amount of the pain is secondary to soft tissue swelling in the area, however difficult to exclude fracture based on the level of pain she reports and the DEREK. Will order 2-view XR of the right foot. Icing in the interim. f/u based on results. Resident Activity Tracking Resident Involvement: Resident Care Provided Care Provided: Adult [facility]
[2020-08-16] MEDS: ACETAMINOPHEN 325 MG TAB PO SCH (20:16)
[2020-08-16] MEDS: ATORVASTATIN 20 MG TAB PO SCH (20:17)
[2020-08-16] MEDS: levETIRAcetam 250 MG TAB PO SCH (20:18)
[2020-08-16] MEDS: INSULIN GLARGINE SOLOSTAR 100 UNITS/ML 3 ML PEN SQ SCH (20:40)
[2020-08-17 04:18] LABS: Cdiff Antigen Positive; Cdiff Toxin A+B Negative Cdiff Toxin (Negative)
[2020-08-17] MEDS: LEVOTHYROXINE SODIUM 50 MCG TABLET PO SCH (05:37)
[2020-08-17 07:00] LABS: Basophils # (auto) 0.01 K/uL (0-0.2); Basophils % (auto) 0.1 %; Eosinophils # (auto) 0.25 K/uL (0-0.5); Eosinophils % (auto) 2.7 %; Hematocrit (blood only) 30.9 % (37-47); Hemoglobin 9.5 g/dL (12.0-16.0); Immature Granulocytes # (auto) 0.03 K/uL (0.00-0.02); Immature Granulocytes % (auto) 0.3 %; Lymphocytes # (auto) 0.72 K/uL (1.2-3.4); Lymphocytes % (auto) 7.7 %; Mean Corpuscular Hemoglobin 32.2 pg (25-34); Mean Corpuscular Hgb Conc 30.7 g/dL (32-36); Mean Corpuscular Volume 104.7 fL (80-100); Monocytes % (auto) 5.4 %; Neutrophils # (auto) 7.81 K/uL (1.4-6.5); Neutrophils % (auto) 83.8 %; Platelet Count 235 K/uL (130-400); RDW Coefficient of Variation 21.6 % (11.5-14.5); RDW Standard Deviation 76.7 fL (36.4-46.3); Red Blood Count 2.95 M/uL (4.2-5.4); White Blood Count 9.32 K/uL (4.8-10.8)
[2020-08-17 07:32] LABS: BUN Creatinine Ratio 21.1 (10-20); Creatinine Clr Calc Pharmacy 21.6 ml/min; Est GFR (African American) 28.5 ml/min; Est GFR (Non-African American) 24.6 ml/min; Potassium 3.5 mmol/L (3.5-5.1)
[2020-08-17 07:39] LABS: Anisocytosis Present; Ovalocytes 1+
--- NOTE | 2020-08-17 07:48 | XRay Report ---
XR foot RT min 3V routine HISTORY: 85 years-old Female significant R foot pain after trauma chronic right foot pain COMPARISON: Right foot radiographs 08/19/2012 TECHNIQUE: 3 views of the right foot FINDINGS: Demineralized appearance of the bones with mild to moderate multifocal osteoarthritis. Moderate sized enthesophytes of the calcaneus. 7 mm bone fragment dorsal to the cuneiforms on the lateral view is n ew from comparison. Additionally, there is a 5 mm bone fragment lateral to the anterior process of th e calcaneus. Midfoot alignment is anatomic. IMPRESSION: 1. 5 mm bone fragment lateral to the anterior process of the calcaneus with adjacent soft tissue swel ling is suggestive of an acute fracture fragment. 2. Subcentimeter bone fragment dorsal to the midfoot seen on the lateral view may also reflect an acu te fracture. Correlate with point tenderness. ACT 112: Negative or not required by law. The above report was generated using voice recognition software. It may contain grammatical, syntax o r spelling errors. Electronically signed by: Cheo Vargas M.D. 08/17/2020 7:47 AM
[2020-08-17] MEDS: allopurinoL 300 MG TAB PO SCH (08:27)
[2020-08-17] MEDS: GABAPENTIN 800 MG TAB PO SCH ×2 (08:27→14:06)
[2020-08-17] MEDS: PANTOprazole 40 MG TAB PO SCH (08:27)
[2020-08-17] MEDS: METOPROLOL SUCC 50MG EXT REL TAB PO SCH (08:27)
[2020-08-17] MEDS: DULoxetine HCL 60 MG CAP PO SCH (08:27)
[2020-08-17] MEDS: CHOLECALCIFEROL 1,000 UNITS 25 MCG TAB PO SCH (08:27)
[2020-08-17] MEDS: methylPREDNISolone 60 MG in SYRINGE 0 ML IV SCH (08:27)
[2020-08-17] MEDS: POTASSIUM CHLORIDE CRTAB 20 MEQ TABCR PO SCH (08:27)
[2020-08-17] MEDS: MAGNESIUM OXIDE 400 MG TAB PO SCH (08:27)
[2020-08-17] MEDS: ISOSORBIDE MONO EXTENDED REL 30 MG TABCR PO SCH (08:27)
[2020-08-17] MEDS ORDERED: MULTIVITAMIN TAB PO SCH (09:00)
[2020-08-17] MEDS: FUROSEMIDE 80 MG TAB PO SCH (09:27)
[2020-08-17] MEDS: INSULIN ASPART 100 UNITS/ML 3 ML PEN SC SCH ×2 (09:30→12:45)
--- NOTE | 2020-08-17 13:50 | Hospitalist Progress Note ---
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 She remains hemodynamically stable. Severe spinal stenosis Of note, patient was recently hospitalized and discharged on 08/05/2020 for ongoing issues with ambulatory dysfunction secondary to her severe spinal stenosis At this previous hospitalization, she was seen by orthopedics, who did offer her therapeutic surgery, however she understandably wanted to pursue a nonsurgical routes Patient represents for ongoing ambulatory dysfunction and several falls that had occurred since her previous discharge Noted that patient is on gabapentin, oversedation does not appear to be a problem at present will monitor Anemia may be contributing to this too PT/OT following; appreciate aiding in recommendations for moving forward, including possible placement options -Recommend skilled inpatient services prior to going back home w/ HH given progressive functional decline, ambulatory dysfunction After extensive discussions with patient and family, patient amenable to [facility] -- CM on board and aiding Continue Solu-Medrol 60 mg IV daily while here R Foot Fracture - Patient reporting getting stepped on on Thursday, 08/12 with subsequent increase in pain over last few days - Physical exam revealing of extensive ecchymoses, soft tissue swelling -- no c/f compartment syndrome - XR revealing of acute fracture lateral to the anterior process of the calcaneus - CAM boot x 6-8 weeks - RICE therapy - Continue PT Macrocytic Anemia -- primary suspicion is that anemia represents chronic GI losses given heme-positive stools, also possible contribution from hypoproliferation Patient has notable history of anemia, currently of unclear etiology; she has been followed by hematology both in the outpatient and inpatient settings Hemoglobin on her arrival was low at 7.7; received 1 unit of packed red blood cells Subsequently stabilized around the ~9 range on daily labs Given ongoing work-up and previous concern for hemolysis, consult hematology; appreciate insight and recommendations. Work-up/recs as follows: No gross evidence of hemolysis at present Noted- LDH elevated to 599, reticulocytosis to 0.17 No previous evidence of warm/cold antibodies Folate, B12 (high) wnl Iron studies normal Scoping without obvious source of bleeding per GI, however heme(+) stools Consider pill endoscopy as outpatient Order echocardiography to r/o mechanical-valve mediated microangiopathy -- no abnormalities Anemia may represent component too of hypoproliferative disease from chronic kidney disease Hold anticoagulation CBC every morning Chronic kidney disease stage IV On review of patient's chart, baseline creatinine does appear to be between 1.47 and low 1.6 range Does appear to be at baseline right now Continue to monitor, daily BMPs Pulmonary Hypertension - Echocardiography on 08/15 notable for new, severe pulmonary hypertension (RVSP 85) - Patient does admit not being very compliant with CPAP and has known h/o BETHANY -- suspect largely 2/2 this - In chart, COPD is noted as a problem but on review, does not appear that she has ever been worked up for this -- no smoking hx - Has h/o CHF as well, but does appear mild overall and do not suspect this is contributing on a major scale - BETHANY control - continue w/ CPAP, may need sleep study / further outpatient w/u to optimize treatment Concern for urinary retention Bladder scans in the ER and throughout admission have not revealed evidence of urinary retention On history, patient does report that this may have actually represented dehydration/decreased production of urine BMP demonstrating baseline CKD without significant progression Urinalysis without significant abnormalities Continue to monitor -- voiding freely without difficulties at present Chronic medical conditions Atrial fibrillation: Hold apixaban. Patient has slow ventricular response at present, no need for rate control Hypothyroidism: Continue home medications Coronary artery disease: Hold aspirin, Plavix, continue metoprolol and atorvastatin Type 2 diabetes: AC/at bedtime blood sugar checks, continue Lantus 20 and SSI Peripheral neuropathy: Continue gabapentin Code: Full code Prophylaxis: SCDs Diet: Heart healthy, carb consistent Disposition: [facility] with telemetry --> CM assisting, to [facility] when able (2) Bilateral leg weakness: (3) Peripheral neuropathy: (4) Atrial fibrillation: (5) Obstructive sleep apnea: (6) Hypothyroidism: (7) COPD (chronic obstructive pulmonary disease): (8) GERD (gastroesophageal reflux disease): (9) CAD (coronary artery disease): (10) Diabetes mellitus, type II: (11) Hypertension: (12) Hyperlipidemia: (13) Secondary hyperparathyroidism: (14) Non-STEMI (non-ST elevated myocardial infarction): (15) History of non-ST elevation myocardial infarction (NSTEMI): (16) Spinal stenosis: (17) Generalized osteoarthritis: (18) Cerebrovascular disease: Admission and Anticipated Discharge Date Admission Date: August 13, 2020 Subjective Says she feels quite well this morning. Still says pain in back is at baseline. No new numbness. Says foot continues to hurt, but really only with moving / when it is touched. No other concerns. Still anxious about familial situation. Eager to go to [facility] Review of Systems Review of Systems: as per HPI Physical Exam Physical Exam: General: 85yoF who is awake and sitting in her chair. Appears in good spirits this AM. NAD. HEENT: NCAT. Eyes - Sclera are white, anicteric, and without injection. PERRL. Cardiac: Normal rate and irregular rhythm; S1 and S2 present with 2/6 MEENAKSHI best heard at the RUSB. Pulmonary: Good respiratory effort with symmetric expansion of the chest. No use of accessory muscles. Lungs demonstrating very mild, scattered wheezes throughout the lung ta - nonspecific. Unchanged from yesterday. Abdominal: Normoactive bowel sounds. Abdomen was soft, nondistended, and non-tender to palpation. No hepatomegaly or splenomegaly. Extremities: Unchanged from yesterday -- Dorsum of right foot demonstrating quite a significant ecchymosis at the distal aspect of the MTPs extending to their proximal portions; this extended just mildly into the toes. Nothing observed on the pad of the foot. Otherwise foot appears well perfused. The gentlest touch to this area caused significant amount of pain causing pt to retract foot. No obvious deformities from what could be appreciated (though objective palpation exam limited by pain). No pain over the toes. No pain over the tarsal/metatarsal bones via the pad. Capillary refill < 3 seconds. 5/5 strength in the great toes b/l. || otherwise no peripheral edema b/l Results & Data Results & Data ([facility]) Vital Signs (Past 12 Hours) Vital Signs Temp Pulse Pulse Resp BP Pulse Ox 08/17/20 11:34 36.4 C L 65 168/75 H 94 08/17/20 07:33 36.4 C L 70 18 169/77 H 92 08/17/20 07:19 63 08/17/20 03:19 36.4 C L 78 20 153/79 H 95 08/17/20 03:18 67 11 L 92 Resident Activity Tracking Resident Involvement: Resident Care Provided Care Provided: Adult Hospital Medicine (1) Atrial fibrillation Atrial fibrillation type: unspecified Qualified Code(s): I48.91 - Unspecified atrial fibrillation (2) Hypothyroidism Hypothyroidism type: unspecified Qualified Code(s): E03.9 - Hypothyroidism, unspecified (3) GERD (gastroesophageal reflux disease) Esophagitis presence: esophagitis presence not specified Qualified Code(s): K21.9 - Gastro-esophageal reflux disease without esophagitis"
--- NOTE | 2020-08-17 15:47 | Discharge Summary ---
Date of Service August 17, 2020 Admission HPI Per Admitting Provider This is an 85-year-old female with past medical history of severe spinal stenosis with neuropathy, atrial fibrillation, coronary artery disease, and hemolytic anemia that presents today complaining of ambulatory dysfunction urinary retention. Patient is decent story. Of note, patient was here in our hospital on . She at that time was found to be anemic and had issues with spinal stenosis causing ambulatory dysfunction. Patient is initially agreeable to go to acute rehab but subsequently refused and was sent home with services as able. At that time, she had been seen by orthopedics and spinal surgery was offered but the patient refused. Patient tells me that after she returned home, she continued to have issues with her ambulation. She had several "near falls" at Mother's Day dinner yesterday. Likely, son was there to catch her and she did not fall the ground or injure herself in any way. What was more concerning was a sensation of urinary retention. She says she was unable to urinate through most of the day yesterday outside of a small amount. I do see the patient was bladder scanned in the emergency room found to have less than 100 cc in her bladder. Work-up was essentially unchanged outside of her anemia which had worsened slightly. 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 Hemoglobin on discharge was 8.3 but is now down to 7.7. Patient denies any gross bleeding including hematochezia and hematemesis. Admission Exam Per Admitting Provider Constitutional: + obese and cooperative; no acute distress Neck: trachea midline, no thyromegaly Respiratory: normal respiratory effort, lungs clear to auscultation Cardiovascular: RRR, no murmur, no edema Gastrointestinal (Abdomen): normal bowel sounds, soft, nontender, no hepatosplenomegaly Musculoskeletal: no cyanosis or clubbing, extremities motor strength 5/5 Skin: no rashes, warm and dry Psychiatric: Orientation: oriented x 3 Affect: + anxious affect Principal Diagnosis ambulatory dysfunction severe spinal stenosis macrocytic anemia pulmonary hypertension R foot fracture Discharge Exam General: 85yoF who is awake and sitting in her chair. Appears in good spirits this AM. NAD. HEENT: NCAT. Eyes - Sclera are white, anicteric, and without injection. PERRL. Cardiac: Normal rate and irregular rhythm; S1 and S2 present with 2/6 MEENAKSHI best heard at the RUSB. Pulmonary: Good respiratory effort with symmetric expansion of the chest. No use of accessory muscles. Lungs demonstrating very mild, scattered wheezes throughout the lung ta - nonspecific. Unchanged from yesterday. Abdominal: Normoactive bowel sounds. Abdomen was soft, nondistended, and non- tender to palpation. No hepatomegaly or splenomegaly. Extremities: Unchanged from yesterday -- Dorsum of right foot demonstrating quite a significant ecchymosis at the distal aspect of the MTPs extending to their proximal portions; this extended just mildly into the toes. Nothing observed on the pad of the foot. Otherwise foot appears well perfused. The gentlest touch to this area caused significant amount of pain causing pt to retract foot. No obvious deformities from what could be appreciated (though objective palpation exam limited by pain). No pain over the toes. No pain over the tarsal/metatarsal bones via the pad. Capillary refill < 3 seconds. 5/5 strength in the great toes b/l. || otherwise no peripheral edema b/l Discharge Data Allergies Allergy/AdvReac Type Severity Reaction Status Date / Time shellfish derived Allergy Severe ANAPHYLAXIS Verified 08/13/20 14:18 iodine Allergy Intermediate ANAPHYLAXIS Verified 08/13/20 14:18 lisinopril Allergy Unknown Unknown Verified 08/13/20 14:18 oxybutynin [From Ditropan] Allergy Unknown Unknown Verified 08/13/20 14:18 sertraline [From Zoloft] Allergy Unknown Unknown Verified 08/13/20 14:18 paroxetine AdvReac Mild GI UPSET Verified 08/13/20 14:18 Consultations 08/13/20 13:46 Consult Gastroenterology Stat 08/13/20 15:51 ED Decision to Admit Stat 08/14/20 08:08 Consult Hematology Routine Procedures Performed Operation Date: 08/14/20 16:30 Actual Procedures p Esophagogastroduodenoscopy - Yasmani Mckeon MD s Colonoscopy Polypectomy - Yasmani Mckeon MD Ordered Studies 08/13/20 13:13 CT abd pelvis wo con Stat Hospital Course (1) Ambulatory dysfunction: Tiffanie is an 85-year-old female with a notable history of severe spinal stenosis with neuropathy, atrial fibrillation, coronary artery disease, CKD 3, and ongoing work-up for hemolytic anemia who presented to [facility] for ongoing ambulatory dysfunction and complications from her spinal stenosis. She remains hemodynamically stable. Severe spinal stenosis Of note, patient was recently hospitalized and discharged on 08/05/2020 for ongoing issues with ambulatory dysfunction secondary to her severe spinal stenosis At this previous hospitalization, she was seen by orthopedics, who did offer her therapeutic surgery, however she understandably wanted to pursue a nonsu rgical routes Patient represents for ongoing ambulatory dysfunction and several falls that had occurred since her previous discharge Noted that patient is on gabapentin, oversedation does not appear to be a problem at present will monitor Anemia may be contributing to this too - IV SoluMedrol was given while here to aid with pain, edema PT/OT following; appreciate aiding in recommendations for moving forward, including possible placement options -Recommend skilled inpatient services prior to going back home w/ HH given progressive functional decline, ambulatory dysfunction To [facility] R Foot Fracture - Patient reporting getting stepped on on Thursday, 08/12 with subsequent increase in pain over last few days - Physical exam revealing of extensive ecchymoses, soft tissue swelling -- no c/f compartment syndrome - XR revealing of acute fracture lateral to the anterior process of the calcaneus - Utilize CAM boot x 6-8 weeks with close f/u with PCP thereafter - Aggressive RICE therapy - Continue PT Macrocytic Anemia -- primary suspicion is that anemia represents chronic GI losses given heme-positive stools, also possible contribution from hypoproliferation Patient has notable history of anemia, currently of unclear etiology; she has been followed by hematology both in the outpatient and inpatient settings Hemoglobin on her arrival was low at 7.7; received 1 unit of packed red blood cells Subsequently stabilized around the ~9 range on daily labs Given ongoing work-up and previous concern for hemolysis, consult hematology; appreciate insight and recommendations. Work-up/recs as follows: No gross evidence of hemolysis at present Noted- LDH elevated to 599, reticulocytosis to 0.17 No previous evidence of warm/cold antibodies Folate, B12 (high) wnl Iron studies normal Scoping without obvious source of bleeding per GI, however heme(+) stools Consider pill endoscopy as outpatient Order echocardiography to r/o mechanical-valve mediated microangiopathy -- no abnormalities Anemia may represent component too of hypoproliferative disease from chronic kidney disease -Antiplatelet and anticoagulant held while here given c/f chronic GIB. Can consider restarting in a few days as appropriate with frequent CBCs, risk/benef it discussions CBC in 1 week to see H&H (at d/c, 9.5/30.9) Chronic kidney disease stage IV On review of patient's chart, baseline creatinine does appear to be between 1.47 and low 1.6 range - On day of discharge, BUN/Cr at 39/1.86 - Would hold home Lasix for an additional day or two - Repeat BMP in 2 days to reassess kidney function Pulmonary Hypertension - Echocardiography on 08/15 notable for new, severe pulmonary hypertension (RVSP 85) - Patient does admit not being very compliant with CPAP and has known h/o BETHANY -- suspect largely / this - In chart, COPD is noted as a problem but on review, does not appear that she has ever been worked up for this -- no smoking hx - Has h/o CHF as well, but does appear mild overall and do not suspect this is contributing on a major scale - BETHANY control - continue w/ CPAP, may need sleep study / further outpatient w/u to optimize treatment Concern for urinary retention -- resolved Bladder scans in the ER and throughout admission have not revealed evidence of urinary retention On history, patient does report that this may have actually represented dehydration/decreased production of urine Urinalysis without significant abnormalities Continue to monitor -- voiding freely without difficulties at present Chronic medical conditions Atrial fibrillation: Held apixaban. Patient has slow ventricular response at present, no need for rate control Hypothyroidism: Continue home medications Coronary artery disease: Hold aspirin, Plavix, continue metoprolol and atorvastatin Type 2 diabetes: AC/at bedtime blood sugar checks, continue Lantus 20 and SSI Peripheral neuropathy: Continue gabapentin Code: Full code (2) Bilateral leg weakness: (3) Peripheral neuropathy: (4) Atrial fibrillation: (5) Obstructive sleep apnea: (6) Hypothyroidism: (7) COPD (chronic obstructive pulmonary disease): (8) GERD (gastroesophageal reflux disease): (9) CAD (coronary artery disease): (10) Diabetes mellitus, type II: (11) Hypertension: (12) Hyperlipidemia: (13) Secondary hyperparathyroidism: (14) Non-STEMI (non-ST elevated myocardial infarction): (15) History of non-ST elevation myocardial infarction (NSTEMI): (16) Spinal stenosis: (17) Generalized osteoarthritis: (18) Cerebrovascular disease: Total Time Total Time Spent Total Time Spent (In Minutes): <30 Discharge Plan Discharge Items Patient Disposition: Transfer Inpatient Rehab Fac Reason For Visit: CONTRAINDICATED Discharge Diagnosis: ambulatory dysfunction severe spinal stenosis anemia R foot fracture pulmonary hypertension Activity: Per Instructions section Non-emergency contact: Primary Care Provider Call non-emergency contact if: you have any medication questions, your pain is not controlled, your pain is worsening and your temperature is above 101 Follow-up/Referrals: Domi Wetzel DO [Primary Care Provider] - Diet: Regular Addtl Attending Provider Instructions: Tiffanie is an 85-year-old female with a notable history of severe spinal stenosis with neuropathy, atrial fibrillation, coronary artery disease, CKD 3, and ongoing work-up for hemolytic anemia who presented to [facility] for ongoing ambulatory dysfunction and complications from her spinal stenosis. She remains hemodynamically stable. Severe spinal stenosis Of note, patient was recently hospitalized and discharged on 08/05/2020 for ongoing issues with ambulatory dysfunction secondary to her severe spinal stenosis At this previous hospitalization, she was seen by orthopedics, who did offer her therapeutic surgery, however she understandably wanted to pursue a nonsurgical routes Patient represents for ongoing ambulatory dysfunction and several falls that had occurred since her previous discharge Noted that patient is on gabapentin, oversedation does not appear to be a problem at present will monitor Anemia may be contributing to this too - IV SoluMedrol was given while here to aid with pain, edema PT/OT following; appreciate aiding in recommendations for moving forward, including possible placement options -Recommend skilled inpatient services prior to going back home w/ HH given progressive functional decline, ambulatory dysfunction To [facility] R Foot Fracture - Patient reporting getting stepped on on Thursday, 08/12 with subsequent increase in pain over last few days - Physical exam revealing of extensive ecchymoses, soft tissue swelling -- no c/f compartment syndrome - XR revealing of acute fracture lateral to the anterior process of the calcaneus - Utilize CAM boot x 6-8 weeks with close f/u with PCP thereafter - Aggressive RICE therapy - Continue PT Macrocytic Anemia -- primary suspicion is that anemia represents chronic GI losses given heme-positive stools, also possible contribution from hypoproliferation Patient has notable history of anemia, currently of unclear etiology; she has been followed by hematology both in the outpatient and inpatient settings Hemoglobin on her arrival was low at 7.7; received 1 unit of packed red blood cells Subsequently stabilized around the ~9 range on daily labs Given ongoing work-up and previous concern for hemolysis, consult hematology; appreciate insight and recommendations. Work-up/recs as follows: No gross evidence of hemolysis at present Noted- LDH elevated to 599, reticulocytosis to 0.17 No previous evidence of warm/cold antibodies Folate, B12 (high) wnl Iron studies normal Scoping without obvious source of bleeding per GI, however heme(+) stools Consider pill endoscopy as outpatient Order echocardiography to r/o mechanical-valve mediated microangiopathy -- no abnormalities Anemia may represent component too of hypoproliferative disease from chronic kidney disease -Antiplatelet and anticoagulant held while here given c/f chronic GIB. Can consider restarting in a few days as appropriate with frequent CBCs, risk/benefit discussions CBC in 1 week to see H&H (at d/c, 9.5/30.9) Chronic kidney disease stage IV On review of patient's chart, baseline creatinine does appear to be between 1.47 and low 1.6 range - On day of discharge, BUN/Cr at 39/1.86 - Would hold home Lasix for an additional day or two - Repeat BMP in 2 days to reassess kidney function Pulmonary Hypertension - Echocardiography on 08/15 notable for new, severe pulmonary hypertension (RVSP 85) - Patient does admit not being very compliant with CPAP and has known h/o BETHANY -- suspect largely 2/2 this - In chart, COPD is noted as a problem but on review, does not appear that she has ever been worked up for this -- no smoking hx - Has h/o CHF as well, but does appear mild overall and do not suspect this is contributing on a major scale - BETHANY control - continue w/ CPAP, may need sleep study / further outpatient w/u to optimize treatment Concern for urinary retention -- resolved Bladder scans in the ER and throughout admission have not revealed evidence of urinary retention On history, patient does report that this may have actually represented dehydration/decreased production of urine Urinalysis without significant abnormalities Continue to monitor -- voiding freely without difficulties at present Chronic medical conditions Atrial fibrillation: Held apixaban. Patient has slow ventricular response at present, no need for rate control Hypothyroidism: Continue home medications Coronary artery disease: Hold aspirin, Plavix, continue metoprolol and atorvastatin Type 2 diabetes: AC/at bedtime blood sugar checks, continue Lantus 20 and SSI Peripheral neuropathy: Continue gabapentin Code: Full code Pending Studies at Discharge: No Stand-Alone Forms: My [facility] Skilled Items Patient informed of condition?: Yes DNR: No Discharge Level of Care: Acute rehab Communicable Disease: No Discharge Prognosis: Improving Lines: None Urinary Catheter: No Medications and DC Order Prescriptions: Continued metoprolol succinate 50 mg tablet extended release 24 hr 100 mg PO BID Qty: 360 RF: 3 levothyroxine 50 mcg tablet 50 mcg PO QAM 30 Days Qty: 30 RF: 5 digoxin 125 mcg (0.125 mg) tablet 125 mcg PO QAM Qty: 90 RF: 1 fluticasone propionate 50 mcg/actuation spray,suspension 1 spray intranasal BID PRN (Reason: allergy symptoms) Qty: 16 RF: 1 gabapentin 300 mg capsule 300 mg PO HS PRN (Reason: pain, severe) Qty: 90 RF: 1 pantoprazole 40 mg tablet,delayed release (DR/EC) 40 mg PO QAM Qty: 90 RF: 1 allopurinol 100 mg tablet 300 mg PO QAM Qty: 270 RF: 1 gabapentin 800 mg tablet 800 mg PO TID 90 Days Qty: 270 RF: 1 duloxetine 60 mg capsule,delayed release(DR/EC) 60 mg PO QAM Qty: 90 RF: 1 cholecalciferol (vitamin D3) [Vitamin D3] 25 mcg (1,000 unit) tablet 2,000 unit PO QAM RF: 0 Novolog Flexpen U-100 Insulin 100 unit/mL (3 mL) insulin pen 7 - 10 unit subcut TIDM Qty: 45 RF: 1 magnesium oxide 400 mg magnesium tablet 400 mg PO BID Qty: 90 RF: 1 diclofenac sodium [Voltaren] 1 % gel 2 g TOPICAL HS PRN (Reason: Pain) Qty: 100 RF: 3 potassium chloride 20 mEq tablet extended release 20 meq PO BID Qty: 90 RF: 1 Eliquis 2.5 mg tablet 2.5 mg PO BID Qty: 180 RF: 1 furosemide 40 mg tablet 40 - 80 mg PO BID Qty: 270 RF: 1 lidocaine 4 % gel 1 appln TOP TID PRN (Reason: right lower leg pain) Qty: 30 RF: 0 acetaminophen [Tylenol Arthritis Pain] 650 mg tablet extended release 1,300 mg PO HS RF: 0 isosorbide mononitrate 30 mg tablet extended release 24 hr 30 mg PO QAM Qty: 90 RF: 1 albuterol sulfate [ProAir HFA] 90 mcg/actuation HFA aerosol inhaler 1 - 2 puffs INH Q4H PRN (Reason: shortness of breath or wheezing) Qty: 6.7 RF: 3 levetiracetam 250 mg tablet 250 mg PO HS Qty: 30 RF: 2 atorvastatin 20 mg tablet 20 mg PO QPM RF: 0 Nucynta 50 mg tablet 100 mg PO BID PRN (Reason: pain) RF: 0 clopidogrel [Plavix] 75 mg tablet 75 mg PO DAILY Qty: 0 RF: 0 Lantus Solostar U-100 Insulin 100 unit/mL (3 mL) insulin pen 20 unit subcut HS Qty: 15 RF: 0 Discharge Orders: Discharge Order (Routine); Ordered 08/17/20 Ordered By: Julián Marcum Admission Data Admit Date/Time: 08/13/20 17:16 Attending Provider: Julián Healy Admit Provider: Donaldo Lopez Primary Care Provider: Domi Wetzel Other Providers: Viridiana Gonzalez ; Donaldo Lopez ; Gary Zavaleta V. ; Jesus Blanco [facility] ; [facility] Other Interventions: Discharge Summary Assessment (RN) Last Done: 08/17/20 16:14 Supervising Physician Co-Signing Physician Notes I personally examined the patient and verified all olivarez points of history and exam, discussed case, and agree with decision making with Dr Marcum. feels up to going to rehab. discussed foot fracture. Vitals noted, resting comfortably, no distress. HEENT normocephalic atraumatic mucous membranes moist. Breathing unlabored no accessory muscle use good ef fort. Skin shows no rashes no pallor or icterus. Neuro shows no focal deficits. foot eccymosis noted. Weaknessdeconditioning and spinal stenosis, possibly also anemia contributing. PT/OT eval and treat. for rehab. Anemiaappears to be acute on chronic possibly blood loss given heme positive stools. Transfused 1 unit. Scope without a source, consider capsule endoscopy. Iron reasonable. I suspect more than anything she is probably got some degree of chronic blood loss from something like small bowel AVMs, and an inadequate response either due to CKD, or possibly iron deficiency. Serial CBCs, might need as needed transfusions in the future. Close outpatient follow-up in this regard pulmonary HTN - likely from untreated sleep apnea. amenable to repeat sleep study/CPAP - notes that efforts to take care of her was largely why she fell out of using it in the past CKD 4noted Foot fractureboot for 6 weeks, repeat x-rays Ortho follow-up in 4 weeks, sooner as needed. Otherwise as above stable for rehab Resident Activity Tracking Resident Involvement: Resident Care Provided Care Provided: Adult Hospital Medicine
[2020-08-17] MEDS: DIGOXIN 0.125 MG TAB PO SCH (16:14)
--- NOTE | 2020-08-17 17:55 | Billing Data ---
Date of Service August 17, 2020 Coding Level of Care Code D/C Day Management <30 mins
== END 2020-08-17 18:03 ==
LOC: ED 11:40 → 2N 17:16 → SUATTDRO 17:16 → 2N 19:13

== ENCOUNTER 2020-10-03 12:15 | Observation (INO) ==
[2020-10-03 12:55] LABS: Basophils # (auto) 0.02 K/uL (0-0.2); Basophils % (auto) 0.3 %; Eosinophils # (auto) 0.59 K/uL (0-0.5); Eosinophils % (auto) 8.4 %; Hematocrit (blood only) 25.6 % (37-47); Hemoglobin 7.7 g/dL (12.0-16.0); Immature Granulocytes # (auto) 0.06 K/uL (0.00-0.02); Immature Granulocytes % (auto) 0.9 %; Lymphocytes # (auto) 0.39 K/uL (1.2-3.4); Lymphocytes % (auto) 5.5 %; Mean Corpuscular Hemoglobin 32.9 pg (25-34); Mean Corpuscular Hgb Conc 30.1 g/dL (32-36); Mean Corpuscular Volume 109.4 fL (80-100); Mean Platelet Volume 11.3 fL (7.4-10.4); Monocytes # (auto) 0.68 K/uL (0.11-0.59); Monocytes % (auto) 9.7 %; Neutrophils # (auto) 5.29 K/uL (1.4-6.5); Neutrophils % (auto) 75.2 %; Platelet Count 229 K/uL (130-400); RDW Coefficient of Variation 22.4 % (11.5-14.5); Red Blood Count 2.34 M/uL (4.2-5.4); White Blood Count 7.03 K/uL (4.8-10.8)
--- NOTE | 2020-10-03 12:58 | CT Scan Report ---
CT head/brain wo con CLINICAL HISTORY: Stroke Like Symptoms COMPARISON STUDY: 08/03/2020 TECHNIQUE: Axial CT of the brain is performed from the vertex to the skull base. IV contrast was not administered for this examination. A dose lowering technique was utilized adhering to the principles of ALARA. CT DOSE: 1007.40 mGy.cm FINDINGS: No intra or extra-axial mass lesions are visualized. There is no CT evidence of acute cortical infarc tion. There is no evidence of midline shift. There is no acute hemorrhage. No calvarial fractures ar e visualized. There are patchy white matter hypodensities likely on a small vessel basis. There is an old right par ietal lobe infarct. There is no evidence of pathologic ventricular dilatation. There is no evidence of acute sinusitis IMPRESSION: 1. 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 No acute intracranial findings ACT 112: Negative or not required by law. Electronically signed by: Yogesh French M.D. 10/03/2020 12:56 PM
[2020-10-03 13:06] LABS: INR 1.2 (0.9-1.1); Partial Thromboplastin Time 26.1 Seconds (21.0-31.0); Prothrombin Time 12.3 Seconds (9.0-12.0)
--- NOTE | 2020-10-03 13:06 | XRay Report ---
XR chest 1V portable CLINICAL HISTORY: Stroke Like Symptoms COMPARISON STUDY: 08/13/2020 FINDINGS: The heart is mildly enlarged. There is no failure. There is no focal pulmonary consolidatio n. There are no pleural effusions.[Mild left hilar prominence remains unchanged. This is felt to repr esent prominent central vessels. IMPRESSION: No active disease in the chest. ACT 112: Negative or not required by law. Electronically signed by: Yogesh French M.D. 10/03/2020 1:05 PM
--- NOTE | 2020-10-03 13:10 | Emergency Department Note ---
Impression & Plan AMS (altered mental status), Anemia, Atrial fibrillation, Chronic kidney disease (CKD), Elevated digoxin level ED Provider Note NAME: JULIO C FAULKNER AGE: 85 SEX: F : 1935 ARRIVES VIA: Ambulance INFORMANT: Patient, prehospital personnel and the patient's ED PROVIDER(S): Nate Roy DO CHIEF COMPLAINT: Altered mental status the patient is an 85-year-old female who presented to the emergency department for an evaluation of altered mental status. HPI: The patient came to the emergency department by ambulance. The ambulance was called by the patient's significant other. We talked the patient's significant other via telephone and apparently he noticed an alteration in her mental status at approximate 1115 this morning. She was on her way to the pain clinic. The patient states that she has been compliant with all of her outpatient medications. She does take anticoagulation for chronic atrial fibrillation. There is also a history of the patient striking her head but there is no loss of consciousness. The patient does not complain of headache at this time. She has had no nausea or vomiting. She denies having any chest or abdominal pain. The patient symptoms were moderate and unchanged at the time of her arrival. I was asked to evaluate the patient acutely for possible strokelike symptoms. The patient was made a stroke alert. ROS: See above HPI for pertinent positives & negatives. A total of 10 systems reviewed and were otherwise negative. PAST MEDICAL HISTORY: See Below PAST SURGICAL HISTORY: See Below FAMILY HISTORY: See Below SOCIAL HISTORY: See Below HOME MEDICATIONS: See Below ALLERGIES: See Below VITALS: See Below PHYSICAL EXAMINATION: GENERAL: The patient is awake and alert. She is somewhat anxious appearing. EYES: The conjunctivae are clear. The pupils are round and reactive. EARS, NOSE, MOUTH AND THROAT: The nose is without any evidence of any deformity. Mucous membranes are dry. NECK: The neck is nontender and supple. RESPIRATORY: Normal respiratory effort is noted there is no evidence of wheezing rhonchi or rales CARDIOVASCULAR: Irregular rhythm was noted to auscultation. There was no definite murmur. GASTROINTESTINAL: The abdomen is soft. Abdomen is nontender. MUSCULOSKELETAL/EXTREMITIES: There is no evidence of gross deformity full range of motion is noted in the hips and shoulders. SKIN: Pedal edema was noted bilaterally. NEUROLOGIC: Patient is awake to verbal commands. She does follow commands slowly. She was able to hold each leg off of the bed for just about 5 seconds. Clinical Advisor strength was diminished in the left upper extremity compared to the right. There is a drift in the left upper extremity. The patient is oriented to person place but not time. MEDICAL DECISION MAKING: The patient is an 85-year-old female who presented to the emergency department for an evaluation of altered mental status. The patient was found to be somewhat obtunded upon arrival to the emergency department. She also had episodes of hypoxia while she was initially being evaluated. Initial history was very confusing given the patient's presentation but once her arrived at the emergency department he was able to help with her history somewhat. The patient took some of her medications recently which could have caused some of the symptoms as well. I discussed the patient's laboratory and radiographic studies with her and her . Ultimately I also discussed her case with the telestroke neurologist as well as the on-call [facility] hospitalist. They have agreed to evaluate the patient in the emergency department for further management and disposition. The patient's condition continued to improve while she is in the emergency department. We will attempt to get MRIs of the patient however she has a bladder stimulator which may preclude her from being able to have an MRI. Her is going to get us information about this stimulator. Triage Nursing notes reviewed. Prior medical records reviewed Vital Signs: reviewed and remarkable for elevated blood pressure and bradycardia. Differential diagnosis: Infection, hypoglycemia, electrolyte abnormalities, overdose, toxicologic, cardiac sources, intracerebral event, neurologic, trauma, as well as other path ologies. ER treatment provided: See below Diagnostics interpreted by me: ECG: EKG was obtained in the emergency department. My interpretation is atrial fibrillation at 72 bpm. There were no PVCs. Diffuse T wave and ST segment abnormalities were noted. This was compared to a tracing from August 132020. No significant changes were noted. Cardiac Monitoring: An order was placed for continuous cardiac monitoring. The monitor shows a rate of 59 bpm with atrial fibrillation with bradycardia rhythm. Laboratory studies: As stated above and show below. Imaging studies: See below Consultation(s): 1300: I discussed this case with Dr. David who is on-call for the stroke neurology group. At this time he does recommend further studies such as MRI and MRA to evaluate for large vessel occlusion but continued monitoring for toxic metabolic causes. 1445: I discussed this case with Dr. Spicer who is on-call for the [facility] hospitalist group. Past Med/Surg History Medical History Anemia Chronic macrocytic Asthma Atrial fibrillation CAD (coronary artery disease) Cerebrovascular disease Chronic diastolic congestive heart failure Chronic kidney disease (CKD) Stage III, baseline Cr 1.3-1.5mg/dL. Complicated with normocytic anemia and secondary hyperparathyroidism. Followed by nephrology. COPD (chronic obstructive pulmonary disease) Diabetes mellitus, type II Diabetic peripheral neuropathy Elevated troponin Generalized osteoarthritis CT scan lumbar spine (03/16) severe multilevel spinal stenosis. Cannot perform MRI due to bladder implant. Followed by pain management. Epidural steroid injections with improvement of pain. Evaluated by ortho, decided against surgery. Managed with gabapentin 300mg TID + APAP PRN + tapentadol 50mg BID PRN GERD (gastroesophageal reflux disease) History of gout Managed with allopruinol daily. No recent gouty attacks. Uric acid suppressed 3.4 mg/dl (12/22) History of non-ST elevation myocardial infarction (NSTEMI) x2, 2017 and 2018 Hyperlipidemia Secondary prevention with moderate intensity statin (atorvastatin 20mg daily) Hypertension Managed with furosemide + metoprolol Hypothyroidism Managed with levothyroxine supplementation Lichen planus Macular degeneration Macular degeneration Mitral regurgitation Neurologic gait dysfunction Obstructive sleep apnea Long standing. Managed with CPAP nightly. CPAP titration polysomnography (07/14). 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 Managed with calcitriol. Followed by nephrology Sensorineural hearing loss (SNHL) of both ears Spinal stenosis of lumbar region Venous insufficiency of both lower extremities Venous stasis ulcers of both lower extremities Vitamin D deficiency Weakness Surgical History H/O colonoscopy History of repair of rectocele S/P breast biopsy S/P section S/P cholecystectomy S/P hysterectomy S/P implantation of urinary electronic stimulator device Family History Father , Age 64 No problems noted. Mother , Age 61 No problems noted. Other Coronary heart disease Denies family history of Ovarian cancer Prostate cancer Crohn's disease Breast cancer Lung cancer Colorectal cancer Social History Smoking Status: Never smoker Second Hand Exposure: No; Hx Alcohol Use: No Hx Substance Use: No Preferred Language: Persian Communication Ability: Effective Visual Impairment: No Limitations Hearing Ability: Normal Aromatherapist Required: No Beliefs That Will Affect Care: None marital status: / Current Living Situation: Spouse current occupational status: retired Feels Safe at Home: Yes Childhood Exposure to Second-Hand Smoke: No Dental Care, Regularly: Yes Physical Activity Frequency: 1-2 Times per Week Physical Activity Frequency Comment: physical therapy Seatbelt Use: always Sunscreen Use: Yes Assistive Devices: Glasses and Walker Allergies Allergies Allergy/AdvReac Type Severity Reaction Status Date / Time shellfish derived Allergy Severe ANAPHYLAXIS Verified 10/03/20 15:06 iodine Allergy Intermediate ANAPHYLAXIS Verified 10/03/20 15:06 lisinopril Allergy Unknown Unknown Verified 10/03/20 15:06 oxybutynin [From Ditropan] Allergy Unknown Unknown Verified 10/03/20 15:06 sertraline [From Zoloft] Allergy Unknown Unknown Verified 10/03/20 15:06 paroxetine AdvReac Mild GI UPSET Verified 10/03/20 15:06 Home Meds Home Medications Medication Instructions Recorded Confirmed acetaminophen 650 mg 1,300 mg PO HS tab 05/11/20 10/03/20 tablet,extended release atorvastatin 20 mg tablet 20 mg PO QPM tab 05/11/20 10/03/20 cholecalciferol (vitamin D3) 25 2,000 unit PO QAM tab 05/11/20 10/03/20 mcg (1,000 unit) tablet Nucynta 100 mg PO BID PRN 06/26/20 10/03/20 insulin glargine 100 unit/mL (3 40 unit SUBCUT HS ml 09/07/20 10/03/20 mL) subcutaneous pen Previous Rx's Medication Instructions Recorded lidocaine 4 % topical gel 1 appln TOP TID PRN #30 gm 01/14/19 albuterol sulfate 90 mcg/actuation 1 - 2 puffs INH Q4H PRN #6.7 gm 04/26/19 aerosol inhaler metoprolol succinate 50 mg 100 mg PO BID #360 tab 11/04/19 tablet,extended release 24 hr levothyroxine 50 mcg tablet 50 mcg PO QAM 30 Days #30 tab 01/03/20 digoxin 125 mcg (0.125 mg) tablet 125 mcg PO QAM #90 tab 01/09/20 fluticasone propionate 50 1 spray INTRANASAL BID PRN #16 g 01/11/20 mcg/actuation nasal spray,suspension pantoprazole 40 mg tablet,delayed 40 mg PO QAM #90 tab 02/01/20 release allopurinol 100 mg tablet 300 mg PO QAM #270 tab 02/15/20 isosorbide mononitrate 30 mg 30 mg PO QAM #90 tab 04/30/20 tablet,extended release 24 hr insulin aspart U-100 100 unit/mL 7 - 10 unit SUBCUT TIDM #45 ml 06/01/20 (3 mL) subcutaneous pen diclofenac sodium 1 % topical gel 2 g TOPICAL HS PRN #100 gm 07/10/20 clopidogrel [Plavix] 75 mg PO DAILY #0 tab 08/05/20 apixaban 2.5 mg tablet 2.5 mg PO BID #180 tab 08/06/20 furosemide 40 mg tablet 40 - 80 mg PO BID #270 tab 08/10/20 duloxetine 60 mg capsule,delayed 60 mg PO QAM #90 cap 09/26/20 release gabapentin 300 mg capsule 300 mg PO HS PRN #90 cap 09/26/20 gabapentin 800 mg tablet 800 mg PO TID 90 Days #270 tab 09/26/20 mirtazapine 15 mg tablet 15 mg PO HS #30 tab 09/26/20 potassium chloride 20 mEq 20 meq PO BID #90 tab 09/28/20 tablet,extended release magnesium oxide 400 mg PO BID #90 tab 10/02/20 Results & Data (ED) Vital Signs Vital Signs - 24 hr 10/03/20 12:20 10/03/20 13:01 10/03/20 13:02 Temperature 36.5 C Temperature Source Oral Pulse Rate 68 48 L Pulse Rate [Finger] Pulse Rate from SpO2 Sensor 54 L Respiratory Rate 18 20 Respiratory Depth Blood Pressure 140/65 139/59 L Blood Pressure [Right Arm] Blood Pressure Mean 90 85 Blood Pressure Mean [Right Arm] Blood Pressure Position Sitting Pulse Oximetry 88 L 100 88 L Oxygen Delivery Method Room Air Room Air Oxygen Flow Rate Sepsis Recent Fever Within 48 Hours No Sepsis New/Unexplained Change in Mental Status No Sepsis Action Taken by Nursing No Action Required Oxygen Flow Rate - Titration 2 Pulse Oximetry Post Tiitration 95 10/03/20 13:29 10/03/20 14:30 10/03/20 14:34 Temperature Temperature Source Pulse Rate 58 L 59 L Pulse Rate [Finger] 58 L Pulse Rate from SpO2 Sensor 57 L Respiratory Rate 16 18 15 Respiratory Depth Normal Blood Pressure 117/80 Blood Pressure [Right Arm] 139/59 L Blood Pressure Mean 92 Blood Pressure Mean [Right Arm] 85 Blood Pressure Position Pulse Oximetry 97 100 Oxygen Delivery Method Nasal Cannula Nasal Cannula Oxygen Flow Rate 2 2 Sepsis Recent Fever Within 48 Hours Sepsis New/Unexplained Change in Mental Status Sepsis Action Taken by Nursing Oxygen Flow Rate - Titration Pulse Oximetry Post Tiitration 10/03/20 14:35 10/03/20 15:00 10/03/20 15:02 Temperature Temperature Source Pulse Rate 51 L 60 69 Pulse Rate [Finger] Pulse Rate from SpO2 Sensor 48 L 60 63 Respiratory Rate 21 20 13 Respiratory Depth Blood Pressure 172/82 H Blood Pressure [Right Arm] Blood Pressure Mean 112 Blood Pressure Mean [Right Arm] Blood Pressure Position Pulse Oximetry 100 100 99 Oxygen Delivery Method Oxygen Flow Rate Sepsis Recent Fever Within 48 Hours Sepsis New/Unexplained Change in Mental Status Sepsis Action Taken by Nursing Oxygen Flow Rate - Titration Pulse Oximetry Post Tiitration 10/03/20 15:30 10/03/20 15:31 10/03/20 16:00 Temperature Temperature Source Pulse Rate 59 L 51 L 53 L Pulse Rate [Finger] Pulse Rate from SpO2 Sensor Respiratory Rate 13 12 14 Respiratory Depth Blood Pressure 174/93 H Blood Pressure [Right Arm] Blood Pressure Mean 120 Blood Pressure Mean [Right Arm] Blood Pressure Position Pulse Oximetry Oxygen Delivery Method Oxygen Flow Rate Sepsis Recent Fever Within 48 Hours Sepsis New/Unexplained Change in Mental Status Sepsis Action Taken by Nursing Oxygen Flow Rate - Titration Pulse Oximetry Post Tiitration 10/03/20 16:01 10/03/20 16:30 10/03/20 16:31 Temperature Temperature Source Pulse Rate 60 56 L Pulse Rate [Finger] Pulse Rate from SpO2 Sensor Respiratory Rate 13 15 16 Respiratory Depth Blood Pressure 150/105 H 145/80 H Blood Pressure [Right Arm] Blood Pressure Mean 120 101 Blood Pressure Mean [Right Arm] Blood Pressure Position Pulse Oximetry Oxygen Delivery Method Oxygen Flow Rate Sepsis Recent Fever Within 48 Hours Sepsis New/Unexplained Change in Mental Status Sepsis Action Taken by Nursing Oxygen Flow Rate - Titration Pulse Oximetry Post Tiitration 10/03/20 16:32 10/03/20 17:01 10/03/20 17:31 Temperature Temperature Source Pulse Rate 58 L Pulse Rate [Finger] Pulse Rate from SpO2 Sensor Respiratory Rate Respiratory Depth Blood Pressure 143/84 H 178/69 H Blood Pressure [Right Arm] Blood Pressure Mean 103 105 Blood Pressure Mean [Right Arm] Blood Pressure Position Pulse Oximetry 92 92 Oxygen Delivery Method Room Air Room Air Oxygen Flow Rate Sepsis Recent Fever Within 48 Hours Sepsis New/Unexplained Change in Mental Status Sepsis Action Taken by Nursing Oxygen Flow Rate - Titration Pulse Oximetry Post Tiitration 10/03/20 17:42 10/03/20 18:00 10/03/20 18:11 Temperature Temperature Source Pulse Rate 59 L 59 L Pulse Rate [Finger] Pulse Rate from SpO2 Sensor Respiratory Rate 12 15 Respiratory Depth Blood Pressure 168/90 H Blood Pressure [Right Arm] Blood Pressure Mean 116 Blood Pressure Mean [Right Arm] Blood Pressure Position Pulse Oximetry 92 92 Oxygen Delivery Method Room Air Room Air Room Air Oxygen Flow Rate Sepsis Recent Fever Within 48 Hours Sepsis New/Unexplained Change in Mental Status Sepsis Action Taken by Nursing Oxygen Flow Rate - Titration Pulse Oximetry Post Tiitration Home Medications Current Medication List: was personally reviewed by me Laboratory Data Attestation: I reviewed the patient's lab results. Result diagrams: 10/03/20 18:11 10/03/20 12:38 Lab Results 10/03/20 10/03/20 10/03/20 Range/Units 12:38 12:38 12:38 WBC 7.03 (4.8-10.8) K/uL RBC 2.34 L (4.2-5.4) M/uL Hgb 7.7 L (12.0-16.0) g/dL Hct 25.6 L (37-47) % MCV 109.4 H (80-100) fL MCH 32.9 (25-34) pg MCHC 30.1 L (32-36) g/dL RDW Std Deviation 82.0 H (36.4-46.3) fL RDW Coeff of Talia 22.4 H (11.5-14.5) % Plt Count 229 (130-400) K/uL MPV 11.3 H (7.4-10.4) fL Immature Gran % (Auto) 0.9 % Neut % (Auto) 75.2 % Lymph % (Auto) 5.5 % [place] % (Auto) 9.7 % Eos % (Auto) 8.4 % Baso % (Auto) 0.3 % Reticulocyte % (Auto) (0.5-2.0) % Neut # (Auto) 5.29 (1.4-6.5) K/uL Lymph # (Auto) 0.39 L (1.2-3.4) K/uL [place] # (Auto) 0.68 H (0.11-0.59) K/uL Eos # (Auto) 0.59 H (0-0.5) K/uL Baso # (Auto) 0.02 (0-0.2) K/uL Reticulocyte # (0.02-0.10) 10^6/uL Immature Gran # (Auto) 0.06 H (0.00-0.02) K/uL Giant Platelets 1+ Anisocytosis Present Macrocytosis Present Ovalocytes 1+ PT 12.3 H (9.0-12.0) Seconds INR 1.2 H (0.9-1.1) APTT 26.1 (21.0-31.0) Seconds PTT Ratio 1.0 VBG pH (7.36-7.41) VBG pCO2 (38-50) mmHg VBG pO2 mmHg VBG HCO3 mmol/L VBG O2 Saturation % VBG Base Excess mEq/L Barometric Pressure mm/Hg Sodium 137 (136-145) mmol/L Potassium 5.6 H (3.5-5.1) mmol/L Chloride 105 (98-107) mmol/L Carbon Dioxide 30 (21-32) mmol/L Anion Gap 2.0 L (3-11) BUN 19 H (7-18) mg/dl Creatinine 1.83 H (0.6-1.2) mg/dl Est Cr Clr Drug Dosing Not Reportable Est GFR ( Amer) 29.1 ml/min Est GFR (Non-Af Amer) 25.1 ml/min BUN/Creatinine Ratio 10.4 (10-20) Glucose 122 H (70-99) mg/dl Calcium 8.5 (8.5-10.1) mg/dl Magnesium 2.8 H (1.8-2.4) mg/dl Total Bilirubin 2.0 H (0.2-1) mg/dl AST 37 (15-37) U/L ALT 29 (12-78) U/L Alkaline Phosphatase 115 (45-117) U/L Ammonia (11-32) umol/L Troponin I 0.095 H* (0-0.045) ng/ml Total Protein 6.8 (6.4-8.2) gm/dl Albumin 3.3 L (3.4-5.0) gm/dl Globulin 3.5 (2.5-4.0) gm/dl Albumin/Globulin Ratio 0.9 (0.9-2) Digoxin (0.8-2.0) ng/ml COVID-19 Eval Order SARS-CoV-2 (PCR) (Negative) 10/03/20 10/03/20 10/03/20 Range/Units 12:38 13:07 14:32 WBC (4.8-10.8) K/uL RBC (4.2-5.4) M/uL Hgb (12.0-16.0) g/dL Hct (37-47) % MCV (80-100) fL MCH (25-34) pg MCHC (32-36) g/dL RDW Std Deviation (36.4-46.3) fL RDW Coeff of Talia (11.5-14.5) % Plt Count (130-400) K/uL MPV (7.4-10.4) fL Immature Gran % (Auto) % Neut % (Auto) % Lymph % (Auto) % [place] % (Auto) % Eos % (Auto) % Baso % (Auto) % Reticulocyte % (Auto) (0.5-2.0) % Neut # (Auto) (1.4-6.5) K/uL Lymph # (Auto) (1.2-3.4) K/uL [place] # (Auto) (0.11-0.59) K/uL Eos # (Auto) (0-0.5) K/uL Baso # (Auto) (0-0.2) K/uL Reticulocyte # (0.02-0.10) 10^6/uL Immature Gran # (Auto) (0.00-0.02) K/uL Giant Platelets Anisocytosis Macrocytosis Ovalocytes PT (9.0-12.0) Seconds INR (0.9-1.1) APTT (21.0-31.0) Seconds PTT Ratio VBG pH 7.36 (7.36-7.41) VBG pCO2 52 H (38-50) mmHg VBG pO2 27 mmHg VBG HCO3 29 mmol/L VBG O2 Saturation < 60.0 % VBG Base Excess 3.2 mEq/L Barometric Pressure 733.0 mm/Hg Sodium (136-145) mmol/L Potassium (3.5-5.1) mmol/L Chloride (98-107) mmol/L Carbon Dioxide (21-32) mmol/L Anion Gap (3-11) BUN (7-18) mg/dl Creatinine (0.6-1.2) mg/dl Est Cr Clr Drug Dosing Est GFR ( Amer) ml/min Est GFR (Non-Af Amer) ml/min BUN/Creatinine Ratio (10-20) Glucose (70-99) mg/dl Calcium (8.5-10.1) mg/dl Magnesium (1.8-2.4) mg/dl Total Bilirubin (0.2-1) mg/dl AST (15-37) U/L ALT (12-78) U/L Alkaline Phosphatase (45-117) U/L Ammonia 27.0 (11-32) umol/L Troponin I (0-0.045) ng/ml Total Protein (6.4-8.2) gm/dl Albumin (3.4-5.0) gm/dl Globulin (2.5-4.0) gm/dl Albumin/Globulin Ratio (0.9-2) Digoxin 2.2 H (0.8-2.0) ng/ml COVID-19 Eval Order SARS-CoV-2 (PCR) (Negative) 10/03/20 10/03/20 10/03/20 Range/Units 14:48 14:48 18:11 WBC 6.29 (4.8-10.8) K/uL RBC 2.27 L (4.2-5.4) M/uL Hgb 7.5 L (12.0-16.0) g/dL Hct 24.7 L (37-47) % MCV 108.8 H (80-100) fL MCH 33.0 (25-34) pg MCHC 30.4 L (32-36) g/dL RDW Std Deviation 81.1 H (36.4-46.3) fL RDW Coeff of Talia 22.3 H (11.5-14.5) % Plt Count 214 (130-400) K/uL MPV 10.6 H (7.4-10.4) fL Immature Gran % (Auto) 0.8 % Neut % (Auto) 68.9 % Lymph % (Auto) 12.1 % [place] % (Auto) 8.4 % Eos % (Auto) 9.5 % Baso % (Auto) 0.3 % Reticulocyte % (Auto) 6.9 H (0.5-2.0) % Neut # (Auto) 4.33 (1.4-6.5) K/uL Lymph # (Auto) 0.76 L (1.2-3.4) K/uL [place] # (Auto) 0.53 (0.11-0.59) K/uL Eos # (Auto) 0.60 H (0-0.5) K/uL Baso # (Auto) 0.02 (0-0.2) K/uL Reticulocyte # 0.16 H (0.02-0.10) 10^6/uL Immature Gran # (Auto) 0.05 H (0.00-0.02) K/uL Giant Platelets Anisocytosis Macrocytosis Ovalocytes PT (9.0-12.0) Seconds INR (0.9-1.1) APTT (21.0-31.0) Seconds PTT Ratio VBG pH (7.36-7.41) VBG pCO2 (38-50) mmHg VBG pO2 mmHg VBG HCO3 mmol/L VBG O2 Saturation % VBG Base Excess mEq/L Barometric Pressure mm/Hg Sodium (136-145) mmol/L Potassium (3.5-5.1) mmol/L Chloride (98-107) mmol/L Carbon Dioxide (21-32) mmol/L Anion Gap (3-11) BUN (7-18) mg/dl Creatinine (0.6-1.2) mg/dl Est Cr Clr Drug Dosing Est GFR ( Amer) ml/min Est GFR (Non-Af Amer) ml/min BUN/Creatinine Ratio (10-20) Glucose (70-99) mg/dl Calcium (8.5-10.1) mg/dl Magnesium (1.8-2.4) mg/dl Total Bilirubin (0.2-1) mg/dl AST (15-37) U/L ALT (12-78) U/L Alkaline Phosphatase (45-117) U/L Ammonia (11-32) umol/L Troponin I (0-0.045) ng/ml Total Protein (6.4-8.2) gm/dl Albumin (3.4-5.0) gm/dl Globulin (2.5-4.0) gm/dl Albumin/Globulin Ratio (0.9-2) Digoxin (0.8-2.0) ng/ml COVID-19 Eval Order Covid19 at [facility] SARS-CoV-2 (PCR) NEGATIVE (Negative) Administered Medications Discontinued Medications Sodium Chloride (Nss 1000ml) 500 mls @ 999 mls/hr IV .Q31M ONE Stop: 10/03/20 14:59 Last Infusion: 10/03/20 15:37 Dose: 0 mls/hr Documented by: [id number] Admin: 10/03/20 14:49 Dose: 999 mls/hr Documented by: [id number] Imaging Data Radiologist's Impression: Chest X-Ray 10/03/20 12:45 XR chest 1V portable CLINICAL HISTORY: Stroke Like Symptoms COMPARISON STUDY: 08/13/2020 FINDINGS: The heart is mildly enlarged. There is no failure. There is no focal pulmonary consolidation. There are no pleural effusions.[Mild left hilar prominence remains unchanged. This is felt to represent prominent central vessels. IMPRESSION: No active disease in the chest. ACT 112: Negative or not required by law. Electronically signed by: Yogesh French M.D. 10/03/2020 1:[address] 10/03/20 12:45 CT head/brain wo con CLINICAL HISTORY: Stroke Like Symptoms COMPARISON STUDY: 08/03/2020 TECHNIQUE: Axial CT of the brain is performed from the vertex to the skull base. IV contrast was not administered for this examination. A dose lowering technique was utilized adhering to the principles of ALARA. CT DOSE: 1007.40 mGy.cm FINDINGS: No intra or extra-axial mass lesions are visualized. There is no CT evidence of acute cortical infarction. There is no evidence of midline shift. There is no acute hemorrhage. No calvarial fractures are visualized. There are patchy white matter hypodensities likely on a small vessel basis. There is an old right parietal lobe infarct. There is no evidence of pathologic ventricular dilatation. There is no evidence of acute sinusitis IMPRESSION: 1. 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 No acute intracranial findings ACT 112: Negative or not required by law. Electronically signed by: Yogesh Frecnh M.D. 10/03/2020 12:56 PM Discharge Plan Visit Data Chief Complaint: Weakness Stated Complaint: WEAKNESS ED Provider: Nate Roy Discharge Problem: AMS (altered mental status), Anemia, Atrial fibrillation, Chronic kidney disease (CKD), Elevated digoxin level Discharge Instructions Interventions: ED Discharge Assessment Last Done: 10/03/20 18:11 Forms Stand Alone Forms: [employer] Prescriptions Prescriptions: No Action metoprolol succinate 50 mg tablet extended release 24 hr 100 mg PO BID Qty: 360 RF: 3 levothyroxine 50 mcg tablet 50 mcg PO QAM 30 Days Qty: 30 RF: 5 digoxin 125 mcg (0.125 mg) tablet 125 mcg PO QAM Qty: 90 RF: 1 fluticasone propionate 50 mcg/actuation spray,suspension 1 spray intranasal BID PRN (Reason: allergy symptoms) Qty: 16 RF: 1 pantoprazole 40 mg tablet,delayed release (DR/EC) 40 mg PO QAM Qty: 90 RF: 1 allopurinol 100 mg tablet 300 mg PO QAM Qty: 270 RF: 1 cholecalciferol (vitamin D3) [Vitamin D3] 25 mcg (1,000 unit) tablet 2,000 unit PO QAM RF: 0 Novolog Flexpen U-100 Insulin 100 unit/mL (3 mL) insulin pen 7 - 10 unit subcut TIDM Qty: 45 RF: 1 diclofenac sodium [Voltaren] 1 % gel 2 g TOPICAL HS PRN (Reason: Pain) Qty: 100 RF: 3 Eliquis 2.5 mg tablet 2.5 mg PO BID Qty: 180 RF: 1 furosemide 40 mg tablet 40 - 80 mg PO BID Qty: 270 RF: 1 potassium chloride 20 mEq tablet extended release 20 meq PO BID Qty: 90 RF: 1 magnesium oxide 400 mg magnesium tablet 400 mg PO BID Qty: 90 RF: 1 lidocaine 4 % gel 1 appln TOP TID PRN (Reason: right lower leg pain) Qty: 30 RF: 0 acetaminophen [Tylenol Arthritis Pain] 650 mg tablet extended release 1,300 mg PO HS RF: 0 isosorbide mononitrate 30 mg tablet extended release 24 hr 30 mg PO QAM Qty: 90 RF: 1 Lantus Solostar U-100 Insulin 100 unit/mL (3 mL) insulin pen 40 unit subcut HS RF: 0 mirtazapine 15 mg tablet 15 mg PO HS Qty: 30 RF: 3 gabapentin 800 mg tablet 800 mg PO TID 90 Days Qty: 270 RF: 1 gabapentin 300 mg capsule 300 mg PO HS PRN (Reason: pain, severe) Qty: 90 RF: 1 duloxetine 60 mg capsule,delayed release(DR/EC) 60 mg PO QAM Qty: 90 RF: 1 albuterol sulfate [ProAir HFA] 90 mcg/actuation HFA aerosol inhaler 1 - 2 puffs INH Q4H PRN (Reason: shortness of breath or wheezing) Qty: 6.7 RF: 3 atorvastatin 20 mg tablet 20 mg PO QPM RF: 0 Nucynta 50 mg tablet 100 mg PO BID PRN (Reason: pain) RF: 0 clopidogrel [Plavix] 75 mg tablet 75 mg PO DAILY Qty: 0 RF: 0 Referrals Referrals: Domi Wetzel DO [Primary Care Provider] - Discharge Problem: AMS (altered mental status) Qualifiers: Altered mental status type: unspecified Qualified Code(s): R41.82 - Altered mental status, unspecified Anemia Qualifiers: Anemia type: unspecified type Qualified Code(s): D64.9 - Anemia, unspecified Atrial fibrillation Qualifiers: Atrial fibrillation type: unspecified Qualified Code(s): I48.91 - Unspecified atrial fibrillation Chronic kidney disease (CKD) Qualifiers: Chronic kidney disease stage: unspecified stage Qualified Code(s): N18.9 - Chronic kidney disease, unspecified
[2020-10-03 13:21] LABS: Base Excess VBG 3.2 mEq/L; HCO3 VBG 29 mmol/L; PCO2 VBG 52 mmHg (38-50); PO2 VBG 27 mmHg; pH VBG 7.36 (7.36-7.41)
[2020-10-03 13:24] LABS: Alanine Aminotransferase 29 U/L (12-78); Albumin Level 3.3 gm/dl (3.4-5.0); BUN Creatinine Ratio 10.4 (10-20); Blood Urea Nitrogen 19 mg/dl (7-18); Calcium 8.5 mg/dl (8.5-10.1); Carbon Dioxide 30 mmol/L (21-32); Chloride 105 mmol/L (98-107); Est GFR (African American) 29.1 ml/min; Est GFR (Non-African American) 25.1 ml/min; Glucose 122 mg/dl (70-99); Magnesium 2.8 mg/dl (1.8-2.4); Potassium 5.6 mmol/L (3.5-5.1); Sodium 137 mmol/L (136-145)
[2020-10-03 13:25] LABS: Oxygen Saturation VBG < 60.0 %
[2020-10-03 13:30] LABS: Anisocytosis Present; Giant Platelets 1+; Macrocytosis Present; Ovalocytes 1+
[2020-10-03 13:39] LABS: Albumin Globulin Ratio 0.9 (0.9-2); Alkaline Phosphatase 115 U/L (45-117); Aspartate Aminotransferase 37 U/L (15-37); Globulin 3.5 gm/dl (2.5-4.0); Total Protein 6.8 gm/dl (6.4-8.2); Troponin I 0.095 ng/ml (0-0.045)
[2020-10-03] MEDS ORDERED: SODIUM CHLORIDE 0.9% 1000ML 500 ML IV ONE (14:29)
--- NOTE | 2020-10-03 16:58 | History & Physical Report ---
Date of Service October 03, 2020 Assessment & Plan (1) Weakness: Patient is a pleasant 85 year old female with PMHx Afib on Eliquis, CAD with NSTEMI x2, CKD III-IV, DM2, HTN, Hypothyroidism, Gout, Asthma, Hx CVA, BETHANY, Hemolytic Anemia, that presents with 4 day history of worsening weakness and falls x2 at home in addition to AMS on day of admission. Toxic encephalopathy in the setting of AMS possibly secondary to polypharmacy of Remeron, Nucynta, and Gabapentin -Suspect secondary to polypharmacy as patient on multiple sedating medications - Remeron, Nucynta, Gabapentin vs stroke -Improved and resolved while in the ED and upon admission evaluation -CT Head noting previous R parietal stroke -MRI/MRA head and neck pending (awaiting compatibility card for patients bladder stimulator) -Continue Neuro checks q4h -Patient does have Nitrate + urine, though no urinary symptoms. Will hold on antibiotic treatment at this time with low suspicion of complicated UTI as cause of AMS Acute on Chronic Weakness and Ambulatory Dysfunction with Hx CVA -Suspect that patient with polypharmacy -Would hold Remeron and Nucynta at this time -PT/OT ordered -May have to consider other forms of pain control as Gabapentin 800mg TID in addition to Nucynta may be contributing to patient's weakness Acute exacerbation of chronic Hemolytic Anemia -Being worked up outpatient with Dr. Zavaleta -Hemoglobin 7.7 in ED, will repeat CBC now -Ferritin, Fibrinogen, Haptoglobin, Lactate Dehydrogenase, Reticulocyte count ordered -FOB ordered -Type and Screen Hypoxemic Respiratory Failure -Saturating well on 2L O2 NC -Will titrate to >90% and wean as possible -?secondary to anemia vs narcotic use vs overload -Will hold Nucynta as above -Possible overload with elevated BNP, though clinically without crackles or worsening edema per patient -Will give 1x dose IV Lasix 40mg now in lieu of nightly PO dose -May require transfusion if symptoms worsen, but will hold at this time PATY -Creatinine mildly elevated at 1.83 with base ~1.2-1.6 -Will monitor BMP in AM with lasix use Acute on chronic HFpEF -Will give 1x dose IV lasix -Continue home Lasix 80mg qAM, 40mg qHS (start qHS on 10/04/20) -Most recent echo 08/15/20 with EF 60-65% though noting severe pulmonary hypertension, suspect secondary to BETHANY and poor cpap compliance -Daily weights -Monitor i/o's Chronic Pain secondary to Lumbar Stenosis and Peripheral Neuropathy -Hold Nucynta -Continue Gabapentin 800mg TID -Continue Cymbalta Atrial Fibrillation -Continue home eliquis -Continue home Digoxin - level slightly elevated on admission, repeat in AM -Continue metoprolol CAD -With history of NSTEMI x2 -Troponin elevated 0.095 on admission, will trend at q6h -Patient not endorsing angina -Continue Plavix -Continue Atorvastatin BETHANY -CPAP qHS HTN -Continue home metoprolol -Continue home Isosorbide mononitrate -Continue Lasix Hypothyroidism -Continue home Synthroid -TSH check in AM Hx Gout -Continue home allopurinol DM2 -Continue home Lantus -SSI GERD -Continue home pantoprazole Dispo: Med/Surg Telemetry FEN: HH, DM2 diet DVT: Eliquis Code: Full (2) AMS (altered mental status): (3) Ambulatory dysfunction: (4) Hyperbilirubinemia: (5) Hypoxia: (6) Spinal stenosis of lumbar region: (7) Atrial fibrillation: (8) CAD (coronary artery disease): (9) GERD (gastroesophageal reflux disease): History of Present Illness Chief Complaint: Weakness, AMS Primary Care Provider: Domi Wetzel DO Patient is a pleasant 85 year old female with PMHx Afib on Eliquis, CAD with NSTEMI x2, CKD III-IV, DM2, HTN, Hypothyroidism, Gout, Asthma, Hx CVA, BETHANY, Hemolytic Anemia, that presents with 4 day history of worsening weakness and falls x2 at home in addition to concern for AMS on day of admission. Per history from the ED provider patient was going to a pain clinic appointment around 11:15AM today whenever she started being more altered. There were concerns that she was seeing things in addition to confusion. There were also concerns she may have taken some of her medications inappropriately and that it contributed to her AMS at the time. She was brought to the ED via EMS and a stroke alert was called to evaluate her for concerns of stroke-like symptoms. A head CT was negative and recommendation was made for MRI and MRA of the head and neck, though this had to be delayed as the patient has a history of a bladder stimulator and did not have her MRI compatibility card with her. Upon my evaluation of the patient, she was found to be alert and oriented to person, time, and place. She states that she has been having ongoing and worsening weakness for the past 4 days. She notes that she had similar symptoms 1 month ago when she was admitted for ambulatory dysfunction, and had only been discharged from inpatient rehab 2 weeks ago. She states that this past week she was started on Remeron for her insomnia which she has been taking at night. She is unsure of whether or not this has necessarily worsened her weakness, though she does note falling 2x in the past 4 days. She states her initial fall she rolled out of bed and fell onto her arms and knees and that the second fall she fell and hit the R side of her head. She does note that she chronically weakness on her L side as well since her previous stroke and that her L knee tends to "gives out on me" leading to a majority of her falls. She also notes that she has a history of hemolytic anemia that she is currently working up with Dr. Zavaleta. She has not noticed any chest pain, chest pressure, headache, visual changes, shortness of breath, abdominal pain, dysuria, increased urinary frequency, hematuria, bloody or dark/tarry stools. Med Hx: Afib on Eliquis, CAD with NSTEMI x2, CKD III-IV, DM2, HTN, Hypothyroidism, Gout, Asthma, Hx CVA, BETHANY, Hemolytic Anemia Surg Hx: Rectocele repair, Cholecystectomy, Bladder Stimulator placement Soc Hx: No tobacco, alcohol, illicit drug use. Allergies Allergy/AdvReac Type Severity Reaction Status Date / Time shellfish derived Allergy Severe ANAPHYLAXIS Verified 10/03/20 15:06 iodine Allergy Intermediate ANAPHYLAXIS Verified 10/03/20 15:06 lisinopril Allergy Unknown Unknown Verified 10/03/20 15:06 oxybutynin [From Ditropan] Allergy Unknown Unknown Verified 10/03/20 15:06 sertraline [From Zoloft] Allergy Unknown Unknown Verified 10/03/20 15:06 paroxetine AdvReac Mild GI UPSET Verified 10/03/20 15:06 Home Medications Medication Instructions Recorded Confirmed Type lidocaine 4 % topical gel 1 appln TOP TID PRN #30 gm 01/14/19 10/03/20 Rx albuterol sulfate 90 mcg/actuation 1 - 2 puffs INH Q4H PRN #6.7 gm 04/26/19 10/03/20 Rx aerosol inhaler metoprolol succinate 50 mg 100 mg PO BID #360 tab 11/04/19 10/03/20 Rx tablet,extended release 24 hr levothyroxine 50 mcg tablet 50 mcg PO QAM 30 Days #30 tab 01/03/20 10/03/20 Rx digoxin 125 mcg (0.125 mg) tablet 125 mcg PO QAM #90 tab 01/09/20 10/03/20 Rx fluticasone propionate 50 1 spray INTRANASAL BID PRN #16 g 01/11/20 10/03/20 Rx mcg/actuation nasal spray,suspension pantoprazole 40 mg tablet,delayed 40 mg PO QAM #90 tab 02/01/20 10/03/20 Rx release allopurinol 100 mg tablet 300 mg PO QAM #270 tab 02/15/20 10/03/20 Rx isosorbide mononitrate 30 mg 30 mg PO QAM #90 tab 04/30/20 10/03/20 Rx tablet,extended release 24 hr acetaminophen 650 mg 1,300 mg PO HS tab 05/11/20 10/03/20 History tablet,extended release atorvastatin 20 mg tablet 20 mg PO QPM tab 05/11/20 10/03/20 History cholecalciferol (vitamin D3) 25 2,000 unit PO QAM tab 05/11/20 10/03/20 History mcg (1,000 unit) tablet insulin aspart U-100 100 unit/mL 7 - 10 unit SUBCUT TIDM #45 ml 06/01/20 10/03/20 Rx (3 mL) subcutaneous pen Nucynta 100 mg PO BID PRN 06/26/20 10/03/20 History diclofenac sodium 1 % topical gel 2 g TOPICAL HS PRN #100 gm 07/10/20 10/03/20 Rx clopidogrel [Plavix] 75 mg PO DAILY #0 tab 08/05/20 10/03/20 Rx apixaban 2.5 mg tablet 2.5 mg PO BID #180 tab 08/06/20 10/03/20 Rx furosemide 40 mg tablet 40 - 80 mg PO BID #270 tab 08/10/20 10/03/20 Rx insulin glargine 100 unit/mL (3 40 unit SUBCUT HS ml 09/07/20 10/03/20 History mL) subcutaneous pen duloxetine 60 mg capsule,delayed 60 mg PO QAM #90 cap 09/26/20 10/03/20 Rx release gabapentin 300 mg capsule 300 mg PO HS PRN #90 cap 09/26/20 10/03/20 Rx gabapentin 800 mg tablet 800 mg PO TID 90 Days #270 tab 09/26/20 10/03/20 Rx mirtazapine 15 mg tablet 15 mg PO HS #30 tab 09/26/20 10/03/20 Rx potassium chloride 20 mEq 20 meq PO BID #90 tab 09/28/20 10/03/20 Rx tablet,extended release magnesium oxide 400 mg PO BID #90 tab 10/02/20 10/03/20 Rx Past Med/Surg History Medical History Anemia Chronic macrocytic Asthma Atrial fibrillation CAD (coronary artery disease) Cerebrovascular disease Chronic diastolic congestive heart failure Chronic kidney disease (CKD) Stage III, baseline Cr 1.3-1.5mg/dL. Complicated with normocytic anemia and secondary hyperparathyroidism. Followed by nephrology. COPD (chronic obstructive pulmonary disease) Diabetes mellitus, type II Diabetic peripheral neuropathy Elevated troponin Generalized osteoarthritis CT scan lumbar spine (03/16) severe multilevel spinal stenosis. Cannot perform MRI due to bladder implant. Followed by pain management. Epidural steroid injections with improvement of pain. Evaluated by ortho, decided against surgery. Managed with gabapentin 300mg TID + APAP PRN + tapentadol 50mg BID PRN GERD (gastroesophageal reflux disease) History of gout Managed with allopruinol daily. No recent gouty attacks. Uric acid suppressed 3.4 mg/dl (12/22) History of non-ST elevation myocardial infarction (NSTEMI) x2, 2017 and 2018 Hyperlipidemia Secondary prevention with moderate intensity statin (atorvastatin 20mg daily) Hypertension Managed with furosemide + metoprolol Hypothyroidism Managed with levothyroxine supplementation Lichen planus Macular degeneration Macular degeneration Mitral regurgitation Neurologic gait dysfunction Obstructive sleep apnea Long standing. Managed with CPAP nightly. CPAP titration polysomnography (07/14). 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 Managed with calcitriol. Followed by nephrology Sensorineural hearing loss (SNHL) of both ears Spinal stenosis of lumbar region Venous insufficiency of both lower extremities Venous stasis ulcers of both lower extremities Vitamin D deficiency Weakness Surgical History H/O colonoscopy History of repair of rectocele S/P breast biopsy S/P section S/P cholecystectomy S/P hysterectomy S/P implantation of urinary electronic stimulator device Family History Father , Age 64 No problems noted. Mother , Age 61 No problems noted. Other Coronary heart disease Denies family history of Ovarian cancer Prostate cancer Crohn's disease Breast cancer Lung cancer Colorectal cancer Social History Smoking Status: Never smoker Second Hand Exposure: No; Do You Dip or Chew Tobacco: No; Tobacco Cessation Education Requested by Patient: No Hx Alcohol Use: No Hx Substance Use: No Preferred Language: Serbian Communication Ability: Effective Visual Impairment: No Limitations Hearing Ability: Normal Community Fundraiser Required: No Beliefs That Will Affect Care: None marital status: / Current Living Situation: Significant Other Current Living Situation Comment: Lives with Calderon current occupational status: retired Other Information That Helps Us Care for You: No Feels Safe at Home: Yes Safety Concerns: Feels Safe At This Time Childhood Exposure to Second-Hand Smoke: No Dental Care, Regularly: Yes Physical Activity Frequency: 1-2 Times per Week Physical Activity Frequency Comment: physical therapy Seatbelt Use: always Sunscreen Use: Yes Assistive Devices: Cane Review of Systems Review of Systems: All systems reviewed & are unremarkable except as noted in Subjective Physical Exam Constitutional: no acute distress Tired appearing Eyes: PERRL, conjunctivae normal, anicteric sclerae normal visual ta by confrontation ENMT: external ear and nose normal, oropharynx normal Neck: trachea midline, no thyromegaly Respiratory: normal respiratory effort, lungs clear to auscultation Cardiovascular: Rate/Rhythm: + irregularly irregular Heart Sounds: normal S1 and normal S2; no murmur Vessels: no JVD Extremities: + edema (1+ b/l ); no calf tenderness Gastrointestinal (Abdomen): normal bowel sounds, soft, nontender, no hepatosplenomegaly Musculoskeletal: Head/Neck/Chest: normocephalic and neck supple; + evidence of head trauma (Ecchymosis of the R temporal region ) and full ROM of neck Spine: normal cervical ROM No cervical, thoracic, or lumbar spinal tende rness. Muscle strength testing of RUE and RLE 5/5 Testing of LUE and LLE 4/5 Neurologic: PERRL, EOMI, accommodation nl, no face palsy, no dysarthria awake; not confused Coordination: normal [id number] test and normal [id number] test Psychiatric: Orientation: alert and oriented x 3 Eye Contact: + fair eye contact Results & Data Results & Data ([facility]) Vital Signs (Past 12 Hours) Vital Signs Temp Pulse Pulse Resp BP BP Pulse Ox 10/03/20 16:31 16 145/80 H 10/03/20 16:30 56 L 15 10/03/20 16:01 60 13 150/105 H 10/03/20 16:00 53 L 14 10/03/20 15:31 51 L 12 174/93 H 10/03/20 15:30 59 L 13 10/03/20 15:02 69 13 172/82 H 99 10/03/20 15:00 60 20 100 10/03/20 14:35 51 L 21 100 10/03/20 14:34 59 L 15 117/80 100 10/03/20 14:30 58 L 18 10/03/20 13:29 58 L 16 139/59 L 97 10/03/20 13:02 88 L 10/03/20 13:01 48 L 20 139/59 L 100 10/03/20 12:20 36.5 C 68 18 140/65 88 L Supervising Physician Co-Signing Physician Notes Resident Physician Supervision Note: I independently interviewed and examined the patient and verified the olivarez history and physical, reviewed labs and image studies and agree with resident Dr. Cai findings and care plan. Resident Activity Tracking Resident Involvement: Resident Care Provided Care Provided: Adult Hospital Medicine (1) Atrial fibrillation Atrial fibrillation type: unspecified Qualified Code(s): I48.91 - Unspecified atrial fibrillation (2) AMS (altered mental status) Altered mental status type: unspecified Qualified Code(s): R41.82 - Altered mental status, unspecified (3) GERD (gastroesophageal reflux disease) Esophagitis presence: esophagitis presence not specified Qualified Code(s): K21.9 - Gastro-esophageal reflux disease without esophagitis
[2020-10-03 18:27] LABS: Basophils # (auto) 0.02 K/uL (0-0.2); Basophils % (auto) 0.3 %; Eosinophils % (auto) 9.5 %; Hematocrit (blood only) 24.7 % (37-47); Hemoglobin 7.5 g/dL (12.0-16.0); Immature Granulocytes # (auto) 0.05 K/uL (0.00-0.02); Immature Granulocytes % (auto) 0.8 %; Lymphocytes # (auto) 0.76 K/uL (1.2-3.4); Lymphocytes % (auto) 12.1 %; Mean Corpuscular Hgb Conc 30.4 g/dL (32-36); Mean Corpuscular Volume 108.8 fL (80-100); Mean Platelet Volume 10.6 fL (7.4-10.4); Monocytes # (auto) 0.53 K/uL (0.11-0.59); Monocytes % (auto) 8.4 %; Neutrophils # (auto) 4.33 K/uL (1.4-6.5); Neutrophils % (auto) 68.9 %; Platelet Count 214 K/uL (130-400); RDW Coefficient of Variation 22.3 % (11.5-14.5); RDW Standard Deviation 81.1 fL (36.4-46.3); Red Blood Count 2.27 M/uL (4.2-5.4); Reticulocyte % 6.9 % (0.5-2.0); Reticulocytes # 0.16 10^6/uL (0.02-0.10); White Blood Count 6.29 K/uL (4.8-10.8)
[2020-10-03 18:34] LABS: Fibrinogen 371 mg/dl (184-400)
[2020-10-03 18:52] LABS: Ferritin 98.8 ng/ml (8-388); Troponin I 0.098 ng/ml (0-0.045)
[2020-10-03 18:53] LABS: Anisocytosis Present; Ovalocytes 2+; Schistocytes Occasional
[2020-10-03] MEDS ORDERED: FUROSEMIDE 40 MG/4 ML VIAL IV STA (19:01)
[2020-10-03] MEDS ORDERED: ACETAMINOPHEN 325 MG TAB PO PRN (19:08)
[2020-10-03] MEDS ORDERED: DEXTROSE 50% 50 ML SYRINGE IV PRN (19:08)
[2020-10-03] MEDS ORDERED: GLUCOSE 40% GEL 15 GM TUBE PO PRN (19:08)
[2020-10-03] MEDS ORDERED: CARBOHYDRATES FOR HYPOGLYCEMIA PO PRN (19:08)
[2020-10-03] MEDS ORDERED: GLUCOSE 10 TABS/TUBE PO PRN (19:08)
[2020-10-03] MEDS ORDERED: ONDANSETRON INJ 2 MG/ML 2 ML VIAL IV PRN (19:08)
[2020-10-03] MEDS ORDERED: GLUCAGON FOR INJ 1 MG VIAL SQ PRN (19:08)
[2020-10-03] MEDS ORDERED: PATIENT'S HEIGHT AND/OR WEIGHT NEEDED SCH (19:15)
[2020-10-03] MEDS: APIXABAN 2.5 MG TAB PO SCH (20:50)
[2020-10-03] MEDS: ATORVASTATIN 20 MG TAB PO SCH (20:50)
[2020-10-03] MEDS: METOPROLOL SUCC 50MG EXT REL TAB PO SCH (20:50)
[2020-10-03] MEDS: INSULIN ASPART 100 UNITS/ML 3 ML PEN SC SCH (20:51)
[2020-10-03] MEDS: INSULIN GLARGINE SOLOSTAR 100 UNITS/ML 3 ML PEN SQ SCH (20:52)
[2020-10-04] MEDS: LEVOTHYROXINE SODIUM 50 MCG TABLET PO SCH (05:54)
--- NOTE | 2020-10-04 07:53 | XRay Report ---
XR chest 1V portable CLINICAL HISTORY: hypoxia COMPARISON STUDY: 10/03/2020 FINDINGS: The heart is enlarged. There is mild central vascular prominence without evidence of overt failure. There is no lobar consolidation. There are no significant pleural effusions. Left hilar prom inence remains stable and likely secondary to a prominent pulmonary artery[ IMPRESSION: 1. Mild cardiomegaly 2. Mild central vascular prominence without evidence of overt failure 3. No evidence of focal pulmonary consolidation ACT 112: Negative or not required by law. Electronically signed by: Yogesh French M.D. 10/04/2020 7:52 AM
[2020-10-04] MEDS: INSULIN ASPART 100 UNITS/ML 3 ML PEN SC SCH ×4 (08:00→20:48)
[2020-10-04 08:22] LABS: Estimated Average Glucose 103 mg/dl; Hemoglobin A1C 5.2 % (4.5-5.6)
[2020-10-04 08:37] LABS: Hematocrit (blood only) 24.8 % (37-47); Hemoglobin 7.4 g/dL (12.0-16.0); Mean Corpuscular Hemoglobin 33.2 pg (25-34); Mean Corpuscular Hgb Conc 29.8 g/dL (32-36); Mean Corpuscular Volume 111.2 fL (80-100); Mean Platelet Volume 12.4 fL (7.4-10.4); Platelet Count 225 K/uL (130-400); Red Blood Count 2.23 M/uL (4.2-5.4); White Blood Count 6.23 K/uL (4.8-10.8)
[2020-10-04 08:58] LABS: Albumin Level 3.3 gm/dl (3.4-5.0); BUN Creatinine Ratio 12.7 (10-20); Calcium 8.6 mg/dl (8.5-10.1); Creatinine Clr Calc Pharmacy 23.6 ml/min; Est GFR (African American) 33.4 ml/min; Est GFR (Non-African American) 28.8 ml/min; Potassium 3.9 mmol/L (3.5-5.1)
[2020-10-04] MEDS ORDERED: ISOSORBIDE MONO EXTENDED REL 30 MG TABCR PO SCH (09:00)
[2020-10-04 09:08] LABS: Bilirubin,Total 2.3 mg/dl (0.2-1); Globulin 3.4 gm/dl (2.5-4.0); Thyroid Stimulating Hormone 0.607 uIu/ml (0.300-4.500); Total Protein 6.7 gm/dl (6.4-8.2)
[2020-10-04 09:46] LABS: Anisocytosis Present; Basophils # (auto) 0.02 K/uL (0-0.2); Basophils % (auto) 0.3 %; Eosinophils # (auto) 0.33 K/uL (0-0.5); Eosinophils % (auto) 5.3 %; Hypochromasia Present; Immature Granulocytes # (auto) 0.03 K/uL (0.00-0.02); Immature Granulocytes % (auto) 0.5 %; Lymphocytes # (auto) 0.45 K/uL (1.2-3.4); Lymphocytes % (auto) 7.2 %; Microcytosis Present; Monocytes # (auto) 0.41 K/uL (0.11-0.59); Monocytes % (auto) 6.6 %; Neutrophils # (auto) 4.99 K/uL (1.4-6.5); Neutrophils % (auto) 80.1 %; Ovalocytes 2+
[2020-10-04 09:53] LABS: iSTAT Allen Test Pass; iSTAT Art Bld Gas pCO2 Correct 40 mmHg (35-46); iSTAT Art Bld Gas pH Corrected 7.502 (7.35-7.45); iSTAT Arterial Blood Gas HCO3 31 meg/L (19-24); iSTAT Arterial Blood Gas pCO2 40 mmHg (35-46); iSTAT Arterial Blood Gas pO2 57 mmHg (80-95); iSTAT Arterial Blood Gas pO2 C 57; iSTAT Carbon Dioxide 33 mmol/L (24-31); iSTAT Hematocrit 23 % (37-47); iSTAT Hemoglobin 7.8 g/dl (12.0-16.0); iSTAT Potassium 4.1 mmol/L (3.3-5.0); iSTAT Site L Radial; iSTAT Sodium 142 mmol/L (135-144)
[2020-10-04] MEDS: METOPROLOL SUCC 50MG EXT REL TAB PO SCH (13:46)
--- NOTE | 2020-10-04 14:06 | Electrocardiogram Report ---
Test Reason : Blood Pressure : / mmHG Vent. Rate : 072 BPM Atrial Rate : 250 BPM P-R Int : 000 ms QRS Dur : 076 ms QT Int : 364 ms P-R-T Axes : 000 -03 166 degrees QTc Int : 398 ms Atrial fibrillation Low voltage QRS Nonspecific ST and T wave abnormality Abnormal ECG When compared with ECG of 13-AUG-2020 12:31, Nonspecific T wave abnormality, improved in Inferior leads Confirmed by Adrien Arechiga ([id number]) on 10/04/2020 2:05:52 PM Referred By: REFERRED SELF Confirmed By:Adrien Arechiga
--- NOTE | 2020-10-04 15:07 | Electrocardiogram Report ---
Test Reason : Blood Pressure : / mmHG Vent. Rate : 052 BPM Atrial Rate : 057 BPM P-R Int : 000 ms QRS Dur : 080 ms QT Int : 384 ms P-R-T Axes : 000 -15 194 degrees QTc Int : 357 ms Atrial fibrillation with slow ventricular response Nonspecific T wave abnormality Abnormal ECG When compared with ECG of 03-OCT-2020 12:27, (unconfirmed) No significant change was found Confirmed by Adrien Arechiga ([id number]) on 10/04/2020 3:06:39 PM Referred By: REFERRED SELF Confirmed By:Adrien Arechiga
[2020-10-04] MEDS ORDERED: DIGOXIN 0.125 MG TAB PO SCH (16:00)
[2020-10-04 16:12] LABS: Allen Test Pos (Pos); Base Excess ABG 5.8 mEq/L (-9-1.8); HCO3 ABG 30 mmol/L (19-24); Oxygen Saturation ABG 93.3 % (90-95); PCO2 ABG 42 mmHg (35-46); PO2 ABG 66 mmHg (80-95); pH ABG 7.47 (7.35-7.45)
[2020-10-04] MEDS: APIXABAN 2.5 MG TAB PO SCH ×2 (16:25→20:46)
[2020-10-04] MEDS: CLOPIDOGREL BISULFATE 75 MG TAB PO SCH (16:25)
[2020-10-04] MEDS: allopurinoL 100 MG TAB PO SCH (16:25)
[2020-10-04] MEDS: PANTOprazole 40 MG TAB PO SCH (16:26)
[2020-10-04] MEDS: DULoxetine HCL 60 MG CAP PO SCH (16:26)
[2020-10-04] MEDS: FUROSEMIDE 80 MG TAB PO SCH (16:26)
[2020-10-04] MEDS ORDERED: FUROSEMIDE 40 MG TAB PO SCH (17:00)
--- NOTE | 2020-10-04 19:40 | Hospitalist Progress Note ---
Date of Service October 04, 2020 Assessment & Plan (1) Weakness: 85 year old female with PMHx Afib on Eliquis, CAD with NSTEMI x2, CKD III- IV, DM2, HTN, Hypothyroidism, Gout, Asthma, Hx CVA, BETHANY, Hemolytic Anemia, that presents with 4 day history of worsening weakness and falls x2 at home in add ition to AMS on day of admission. She is somnolent and bradycardic down to low 50s AM of 10/04, since resolved. Toxic encephalopathy in the setting of AMS possibly secondary to polypharmacy of Remeron, Nucynta, and Gabapentin - CT Head noting previous R parietal stroke - excessive somnolence AM of 10/04. bsg wnl. vitals stable, w/ exception of bradycardia to low 50s. pacer pads placed. HR later returns to normal range. transient a flutter - cardiology consulted 10/04 - mentation back to baseline as of PM of 10/04 after starting cpap Hypoxia -Saturating well on 2L O2 NC -No acidosis or hypercapnea on ABG -likely sec to poor resp drive due to sedation/atelactasis/?fluid overload -continue NC O2 Acute exacerbation of chronic Hemolytic Anemia -Being worked up outpatient with Dr. Zavaleta -Hemoglobin 7.7 in ED, ~stable at mid 7 -Ferritin, Fibrinogen, Haptoglobin, Lactate Dehydrogenase, Reticulocyte count ordered Acute on chronic HFpEF -Possible fluid overload with elevated BNP, though clinically without crackles or worsening edema per patient -10/04 cxr w/o evidence of failure -1x dose IV lasix given. -Continue home Lasix 80mg qAM, 40mg qHS (evening dose on hold) -Most recent echo 08/15/20 with EF 60-65% though noting severe pulmonary hypertension, suspect secondary to BETHANY and poor cpap compliance -Daily weights -Monitor i/o's. cumulative 700mL in 600mL out PATY on stage 4 ckd -last creat before admission 1.49. on admission - 1.8 - likely sec to poor oral intake. -Improving -Monitor clinically asymptomatic bacteruria -Patient does have 1+ bacteruria Nitrate + urine, though no urinary symptoms. Will hold on antibiotic treatment at this time with low suspicion of complicated UTI as cause of AMS Acute on Chronic Weakness and Ambulatory Dysfunction -PT/OT ordered Chronic Pain secondary to Lumbar Stenosis and Peripheral Neuropathy -Hold Nucynta -Continue Gabapentin 800mg TID -Continue Cymbalta Atrial Fibrillation -Continue home eliquis -Continue home Digoxin - level slightly elevated on admission, repeat in AM -Continue metoprolol CAD -With history of NSTEMI x2 -Troponin elevated 0.095 on admission, will trend at q6h -Patient not endorsing angina -Continue Plavix -Continue Atorvastatin BETHANY -CPAP as above HTN -Continue home metoprolol -Continue home Isosorbide mononitrate -Continue Lasix. held qhs dose on 10/04 because of late administration of 80mg PO lasix dose from earlier in day Hypothyroidism -Continue home Synthroid -TSH check in AM Hx Gout -Continue home allopurinol DM2 -Continue home Lantus -SSI GERD -Continue home pantoprazole Dispo: Med/Surg Telemetry FEN: HH, DM2 diet DVT: Eliquis Code: Full (2) AMS (altered mental status): (3) Ambulatory dysfunction: (4) Hyperbilirubinemia: (5) Hypoxia: (6) Spinal stenosis of lumbar region: (7) Atrial fibrillation: (8) CAD (coronary artery disease): (9) GERD (gastroesophageal reflux disease): Admission and Anticipated Discharge Date Admission Date: October 03, 2020 Supervising Physician Co-Signing Physician Notes Resident Physician Supervision Note: I independently interviewed and examined the patient and verified the olivarez histor y and physical, reviewed labs and image studies and agree with resident Dr. Alaniz findings and care plan. Subjective Hx was limited by patient's somnolence. PM update: per handoff from covering resident, patient awake and back to mental baseline in afternoon. Review of Systems Review of Systems: ROS limited by patient's somnolence. Physical Exam Physical Exam: General: Somnolent. Will respond verbally to repeated sternal rub, but will barely open eyes. In afternoon, somnolence resolves and becomes A&Ox3. HEENT: Atraumatic, normocephalic. EOMI Pulm: Faint crackles at right anterior and left posterior lung ta. No respiratory distress. Cardiac: Bradcardic rate, regular rhythm, -mrg. Abdominal: Nontender, nondistended, soft. Results & Data Results & Data ([facility]) Vital Signs (Past 12 Hours) Vital Signs Temp Pulse Pulse Resp BP Pulse Ox 10/04/20 19:24 36.8 C 76 18 149/75 H 94 10/04/20 16:00 54 L 10/04/20 14:59 36.4 C L 50 L 20 158/62 H 100 10/04/20 13:38 59 L 16 95 10/04/20 12:04 36.7 C 58 L 19 172/80 H 94 10/04/20 08:37 36.8 C 74 19 169/80 H 90 10/04/20 07:44 61 Resident Activity Tracking Resident Involvement: Resident Care Provided Care Provided: Adult Hospital Medicine (1) Atrial fibrillation Atrial fibrillation type: unspecified Qualified Code(s): I48.91 - Unspecified atrial fibrillation (2) AMS (altered mental status) Altered mental status type: unspecified Qualified Code(s): R41.82 - Altered mental status, unspecified (3) GERD (gastroesophageal reflux disease) Esophagitis presence: esophagitis presence not specified Qualified Code(s): K21.9 - Gastro-esophageal reflux disease without esophagitis
[2020-10-04 19:54] LABS: Appearance Urine Clear (Clear); Bacteria Urine Automated 1+ (Negative); Bilirubin Urine Negative (Negative); Blood Urine Negative (Negative); Color Urine Yellow; Epithelial Cell Urine Auto 0-5 /lpf (0-5); Glucose Urine UA Negative (Negative); Ketones Urine Negative (Negative); Leukocyte Esterase Urine 1+ (Negative); Nitrite Urine Positive (Negative); Protein Urine Negative (Negative); RBC Urine Automated 0-4 /hpf (0-4); Specific Gravity Urine 1.006 (1.000-1.030); Urobilinogen Urine Negative (Negative); WBC Urine Automated >30 /hpf (0-5); pH Urine 7.5 (4.5-7.5)
[2020-10-04] MEDS: ATORVASTATIN 20 MG TAB PO SCH (20:47)
[2020-10-04] MEDS: INSULIN GLARGINE SOLOSTAR 100 UNITS/ML 3 ML PEN SQ SCH (20:48)
[2020-10-04 20:52] LABS: Amphetamines+Metham, Urine Neg (Neg); Barbiturates, Urine Neg (Neg); Benzodiazepine, Urine Neg (Neg); Cocaine, Urine Neg (Neg); MDMA (Ecstacy), Urine Neg (Neg); Methadone, Urine Neg (Neg); Opiate, Urine Neg (Neg); Phencyclidine, Urine Neg (Neg)
[2020-10-04] MEDS ORDERED: DICLOFENAC SOD 1% GEL 100 GM TUBE EXT PRN (22:47)
[2020-10-05] MEDS: LEVOTHYROXINE SODIUM 50 MCG TABLET PO SCH (06:16)
[2020-10-05 07:42] LABS: Hematocrit (blood only) 25.4 % (37-47); Hemoglobin 7.8 g/dL (12.0-16.0)
[2020-10-05] MEDS: allopurinoL 100 MG TAB PO SCH (07:53)
[2020-10-05] MEDS: CLOPIDOGREL BISULFATE 75 MG TAB PO SCH (07:53)
[2020-10-05] MEDS: DULoxetine HCL 60 MG CAP PO SCH (07:53)
[2020-10-05] MEDS: APIXABAN 2.5 MG TAB PO SCH (07:53)
[2020-10-05] MEDS: FUROSEMIDE 80 MG TAB PO SCH (07:53)
[2020-10-05] MEDS: PANTOprazole 40 MG TAB PO SCH (07:54)
[2020-10-05] MEDS: INSULIN ASPART 100 UNITS/ML 3 ML PEN SC SCH ×2 (07:56→11:59)
--- NOTE | 2020-10-05 08:20 | Hospitalist Progress Note ---
Date of Service October 05, 2020 Assessment & Plan (1) Weakness: 85 year old female with PMHx Afib on Eliquis, CAD with NSTEMI x2, CKD III- IV, DM2, HTN, Hypothyroidism, Gout, Asthma, Hx CVA, BETHANY, Hemolytic Anemia, that presents with 4 day history of worsening weakness and falls x2 at home in add ition to AMS on day of admission. She was somnolent and bradycardic down to low 50s AM of 10/04, since resolved. Mentation at baseline 10/05. euvolemic vs slightly hyper. potential dispo. needs cpap Toxic encephalopathy in the setting of AMS possibly secondary to polypharmacy of Remeron, Nucynta, and Gabapentin - CT Head noting previous R parietal stroke - excessive somnolence AM of 10/04. bsg wnl. vitals stable, w/ exception of bradycardia to low 50s. pacer pads placed. HR later returns to normal range. transient a flutter - cardiology consulted 10/04 - mentation back to baseline as of PM of 10/04 after starting cpap Hypoxia -Saturating well on 2L O2 NC -No acidosis or hypercapnea on ABG -likely sec to poor resp drive due to sedation/atelactasis/?fluid overload -continue NC O2 Acute exacerbation of chronic Hemolytic Anemia -Being worked up outpatient with Dr. Zavaleta -Hemoglobin 7.7 in ED, ~stable at mid 7 -Ferritin, Fibrinogen, Haptoglobin, Lactate Dehydrogenase, Reticulocyte count ordered Acute on chronic HFpEF -Possible fluid overload with elevated BNP, though clinically without crackles or worsening edema per patient -10/04 cxr w/o evidence of failure -1x dose IV lasix given. -Continue home Lasix 80mg qAM, 40mg qHS (evening dose on hold) -Most recent echo 08/15/20 with EF 60-65% though noting severe pulmonary hypertension, suspect secondary to BETHANY and poor cpap compliance -Daily weights -Monitor i/o's. cumulative 700mL in 600mL out PATY on stage 4 ckd -last creat before admission 1.49. on admission - 1.8 - likely sec to poor oral intake. -Improving -Monitor clinically asymptomatic bacteruria -Patient does have 1+ bacteruria Nitrate + urine, though no urinary symptoms. Will hold on antibiotic treatment at this time with low suspicion of complicated UTI as cause of AMS Acute on Chronic Weakness and Ambulatory Dysfunction -PT/OT ordered Chronic Pain secondary to Lumbar Stenosis and Peripheral Neuropathy -Hold Nucynta -Continue Gabapentin 800mg TID -Continue Cymbalta Atrial Fibrillation -Continue home eliquis -Continue home Digoxin - level slightly elevated on admission, repeat in AM -Continue metoprolol CAD -With history of NSTEMI x2 -Troponin elevated 0.095 on admission, will trend at q6h -Patient not endorsing angina -Continue Plavix -Continue Atorvastatin BETHANY -CPAP as above HTN -Continue home metoprolol -Continue home Isosorbide mononitrate -Continue Lasix. held qhs dose on 10/04 because of late administration of 80mg PO lasix dose from earlier in day Hypothyroidism -Continue home Synthroid -TSH check in AM Hx Gout -Continue home allopurinol DM2 -Continue home Lantus -SSI GERD -Continue home pantoprazole Dispo: Med/Surg Telemetry FEN: HH, DM2 diet DVT: Eliquis Code: Full (2) AMS (altered mental status): (3) Ambulatory dysfunction: (4) Hyperbilirubinemia: (5) Hypoxia: (6) Spinal stenosis of lumbar region: (7) Atrial fibrillation: (8) CAD (coronary artery disease): (9) GERD (gastroesophageal reflux disease): Admission and Anticipated Discharge Date Admission Date: October 03, 2020 Subjective Has [facility] home health and PT/OT 2x/week. Feels at baseline. No SOB. Feels ready for home. Ate breakfast w/o problems. Review of Systems Review of Systems: Constitutional: Denies fever, chills Eyes: Denies blurry vision, vision changes Cardiovascular: Denies chest pain, palpitations Respiratory: Denies shortness of breath Gastrointestinal: Denies abdominal pain, nausea, vomiting, constipation, diarrhea Genitourinary: Denies urinary symptoms including dysuria Musculoskeletal: Denies weakness, muscle aches/pain, joint aches/pain Neurological: Denies headache, focal weakness. chronic peripheral neuropathy. Physical Exam Physical Exam: General: Grossly A&O. NAD. Cooperative. HEENT: Atraumatic, normocephalic. EOMI Pulm: Faint fine rales at RLW, otherwise clear to auscultation. No respiratory distress. Cardiac: RRR, -mrg. DP pulses 2+. Ankles have puffy appearance, but no pitting appreciated. Abdominal: Nontender, nondistended, soft. Results & Data Results & Data ([facility]) Vital Signs (Past 12 Hours) Vital Signs Temp Pulse Resp BP Pulse Ox 10/05/20 03:12 37.0 C 74 18 134/68 99 10/04/20 22:56 36.6 C 77 18 149/61 H 96 (1) Atrial fibrillation Atrial fibrillation type: unspecified Qualified Code(s): I48.91 - Unspecified atrial fibrillation (2) AMS (altered mental status) Altered mental status type: unspecified Qualified Code(s): R41.82 - Altered mental status, unspecified (3) GERD (gastroesophageal reflux disease) Esophagitis presence: esophagitis presence not specified Qualified Code(s): K21.9 - Gastro-esophageal reflux disease without esophagitis
--- NOTE | 2020-10-05 09:36 | Cardiology Consultation ---
Date of Consultation October 05, 2020 Assessment & Plan (1) Atrial fibrillation: She was bradycardic on telemetry monitoring yesterday afternoon. Metoprolol and digoxin have since been held, and her rate is currently in the 70s. Recommend resuming metoprolol at a lower dose of 50 mg BID so that she does not become tachycardic. Would refrain from using digoxin moving forward given her elevated level noted on admission. Continue to monitor her rate on telemetry while admitted. Will also order a 1 week monitor that she can wear as an outpatient to further monitor her rate. Continue anticoagulation for stroke risk reduction as long as there are no contraindications. (2) CAD (coronary artery disease): Troponin has been minimally elevated, but has also been minimally elevated in the past. ECG shows no acute ischemic changes, and she is not experiencing angina. Her presentation is not consistent with an ACS. Continue antiplatelet and statin therapy. Recommend resuming beta abilio at a lower dose. (3) Chronic diastolic congestive heart failure: She appears well compensated and euvolemic currently. Continue PO Lasix. Low sodium diet. (4) Hypertension: BP has been elevated. Recommend resuming metoprolol at a lower dose, which should help with blood pressure control. Patient discussed with Dr. Roland, and the plan was made in collaboration with him. History of Present Illness Reason for Consultation: Bradycardia Requesting Physician: Dr. Cai History of Present Illness Ms. Porter is an 85-year-old female with a past medical history significant for diastolic CHF, coronary artery disease, atrial fibrillation, CAD, mitral regurgitation, type 2 diabetes mellitus, dyslipidemia, hypertension, BETHANY, CKD, hypothyroidism, anemia, GERD, gout, and macular degeneration. Most recent cardiovascular studies: 1. Cardiac catheterization 12/06/18- Severe single vessel coronary artery disease - 50% ostial LAD stenosis. - 90+% acute appearing proximal LAD in-stent restenosis. 50 to 60% earlymid segment after prior stent - diffuse 60% late- mid LAD disease. Borderline intracardiac filling pressure. Successful PCI of proximal to mid LAD with single drug-eluting stent overlapping prior stent (2.5 x 18 mm Xience Aditi; postdilated with 2.75 NC 2. Echocardiogram 08/15/18- Normal left ventricular systolic function 55-60%. RV mildly dilated. LA severely dilated. RA mod dilated. Moderate to severe MR. RVSP elevated at 30-40 mmHg. 3. Echo 04/14/19: LV size, wall motion, and systolic function are normal. EF 65- 70%. Mild MR. Mild TR. She was admitted on 10/03/20 with progressive weakness and confusion. She states that over the last 3 weeks or so, she has had progressive weakness and increased confusion. She also had a recent fall out of bed. In addition, she ran into a door causing a bruise on the right side of her face. The admitting service suspects her presentation is secondary to polypharmacy as patient is taking Remeron, Nucynta, and Gabapentin. She was also noted to have an elevated digoxin level of 2.2 on arrival. Her rate decreased down to the upper 30s-50s yesterday afternoon, and her metoprolol as well as digoxin have therefore been placed on hold. Her rate is currently in the 70s. She denies any chest discomfort or shortness of breath. She has not noted any significant lower extremity edema. Her weight was stable at home. She denies palpitations, lightheadedness, syncope, or presyncope. She denies abnormal bleeding such as melena, hematochezia, or hematuria. She denies cerebrovascular symptoms. Family history: Noncontributory given her advanced age. Social history: No alcohol, tobacco, or illicit drug use. Allergies Allergy/AdvReac Type Severity Reaction Status Date / Time shellfish derived Allergy Severe ANAPHYLAXIS Verified 10/03/20 15:06 iodine Allergy Intermediate ANAPHYLAXIS Verified 10/03/20 15:06 lisinopril Allergy Unknown Unknown Verified 10/03/20 15:06 oxybutynin [From Ditropan] Allergy Unknown Unknown Verified 10/03/20 15:06 sertraline [From Zoloft] Allergy Unknown Unknown Verified 10/03/20 15:06 paroxetine AdvReac Mild GI UPSET Verified 10/03/20 15:06 Home Medications Medication Instructions Recorded Confirmed Type lidocaine 4 % topical gel 1 appln TOP TID PRN #30 gm 01/14/19 10/03/20 Rx albuterol sulfate 90 mcg/actuation 1 - 2 puffs INH Q4H PRN #6.7 gm 04/26/19 10/03/20 Rx aerosol inhaler metoprolol succinate 50 mg 100 mg PO BID #360 tab 11/04/19 10/03/20 Rx tablet,extended release 24 hr levothyroxine 50 mcg tablet 50 mcg PO QAM 30 Days #30 tab 01/03/20 10/03/20 Rx digoxin 125 mcg (0.125 mg) tablet 125 mcg PO QAM #90 tab 01/09/20 10/03/20 Rx fluticasone propionate 50 1 spray INTRANASAL BID PRN #16 g 01/11/20 10/03/20 Rx mcg/actuation nasal spray,suspension pantoprazole 40 mg tablet,delayed 40 mg PO QAM #90 tab 02/01/20 10/03/20 Rx release allopurinol 100 mg tablet 300 mg PO QAM #270 tab 02/15/20 10/03/20 Rx isosorbide mononitrate 30 mg 30 mg PO QAM #90 tab 04/30/20 10/03/20 Rx tablet,extended release 24 hr acetaminophen 650 mg 1,300 mg PO HS tab 05/11/20 10/03/20 History tablet,extended release atorvastatin 20 mg tablet 20 mg PO QPM tab 05/11/20 10/03/20 History cholecalciferol (vitamin D3) 25 2,000 unit PO QAM tab 05/11/20 10/03/20 History mcg (1,000 unit) tablet insulin aspart U-100 100 unit/mL 7 - 10 unit SUBCUT TIDM #45 ml 06/01/20 10/03/20 Rx (3 mL) subcutaneous pen Nucynta 100 mg PO BID PRN 06/26/20 10/03/20 History diclofenac sodium 1 % topical gel 2 g TOPICAL HS PRN #100 gm 07/10/20 10/03/20 Rx clopidogrel [Plavix] 75 mg PO DAILY #0 tab 08/05/20 10/03/20 Rx apixaban 2.5 mg tablet 2.5 mg PO BID #180 tab 08/06/20 10/03/20 Rx furosemide 40 mg tablet 40 - 80 mg PO BID #270 tab 08/10/20 10/03/20 Rx insulin glargine 100 unit/mL (3 40 unit SUBCUT HS ml 09/07/20 10/03/20 History mL) subcutaneous pen duloxetine 60 mg capsule,delayed 60 mg PO QAM #90 cap 09/26/20 10/03/20 Rx release gabapentin 300 mg capsule 300 mg PO HS PRN #90 cap 09/26/20 10/03/20 Rx gabapentin 800 mg tablet 800 mg PO TID 90 Days #270 tab 09/26/20 10/03/20 Rx mirtazapine 15 mg tablet 15 mg PO HS #30 tab 09/26/20 10/03/20 Rx potassium chloride 20 mEq 20 meq PO BID #90 tab 09/28/20 10/03/20 Rx tablet,extended release magnesium oxide 400 mg PO BID #90 tab 10/02/20 10/03/20 Rx Patient History Medical History Anemia Chronic macrocytic Asthma Atrial fibrillation CAD (coronary artery disease) Cerebrovascular disease Chronic diastolic congestive heart failure Chronic kidney disease (CKD) Stage III, baseline Cr 1.3-1.5mg/dL. Complicated with normocytic anemia and secondary hyperparathyroidism. Followed by nephrology. COPD (chronic obstructive pulmonary disease) Diabetes mellitus, type II Diabetic peripheral neuropathy Elevated troponin Generalized osteoarthritis CT scan lumbar spine (03/16) severe multilevel spinal stenosis. Cannot perform MRI due to bladder implant. Followed by pain management. Epidural steroid injections with improvement of pain. Evaluated by ortho, decided against surgery. Managed with gabapentin 300mg TID + APAP PRN + tapentadol 50mg BID PRN GERD (gastroesophageal reflux disease) History of gout Managed with allopruinol daily. No recent gouty attacks. Uric acid suppressed 3.4 mg/dl (12/22) History of non-ST elevation myocardial infarction (NSTEMI) x2, 2017 and 2018 Hyperlipidemia Secondary prevention with moderate intensity statin (atorvastatin 20mg daily) Hypertension Managed with furosemide + metoprolol Hypothyroidism Managed with levothyroxine supplementation Lichen planus Macular degeneration Macular degeneration Mitral regurgitation Neurologic gait dysfunction Obstructive sleep apnea Long standing. Managed with CPAP nightly. CPAP titration polysomnography (07/14). 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 Managed with calcitriol. Followed by nephrology Sensorineural hearing loss (SNHL) of both ears Spinal stenosis of lumbar region Venous insufficiency of both lower extremities Venous stasis ulcers of both lower extremities Vitamin D deficiency Weakness Surgical History H/O colonoscopy History of repair of rectocele S/P breast biopsy S/P section S/P cholecystectomy S/P hysterectomy S/P implantation of urinary electronic stimulator device Family History Father , Age 64 No problems noted. Mother , Age 61 No problems noted. Other Coronary heart disease Denies family history of Ovarian cancer Prostate cancer Crohn's disease Breast cancer Lung cancer Colorectal cancer Social History Smoking Status: Never smoker Second Hand Exposure: No; Do You Dip or Chew Tobacco: No; Tobacco Cessation Education Requested by Patient: No Hx Alcohol Use: No Hx Substance Use: No Preferred Language: Azeri Communication Ability: Impaired Visual Impairment: No Limitations Hearing Ability: Normal Refining Engineer Required: No Beliefs That Will Affect Care: None marital status: / Current Living Situation: Significant Other Current Living Situation Comment: Lives with Calderon current occupational status: retired Other Information That Helps Us Care for You: No Feels Safe at Home: Yes Safety Concerns: Feels Safe At This Time Childhood Exposure to Second-Hand Smoke: No Dental Care, Regularly: Yes Physical Activity Frequency: 1-2 Times per Week Physical Activity Frequency Comment: physical therapy Seatbelt Use: always Sunscreen Use: Yes Assistive Devices: Cane Review of Systems Review of Systems: All systems reviewed & are unremarkable except as noted in Subjective Physical Exam Physical Exam: Constitutional: Alert, oriented, in no acute distress HEENT: Head is atraumatic and normocephalic. EOMs intact. Sclera non-icteric. Wearing a mask Neck: Supple, no JVD Pulmonary: Normal respiratory effort, clear to auscultation throughout Cardiac: Irregularly irregular, normal S1 and S2, no gallops, no rubs, 1/6 systolic murmur heard best at the right upper sternal border Extremities: No edema. No clubbing or cyanosis. 2+ radial pulses bilaterally Abdomen: Normal bowel sounds, soft, non-tender, no abdominal masses palpated Skin: Normal skin color, turgor, and pigmentation. No rash or skin lesions Neurological: Oriented to person, place, and time Results & Data ([facility]) Vital Signs (Past 12 Hours) Vital Signs Temp Pulse Resp BP Pulse Ox 10/05/20 08:34 97.5 F L 68 16 156/76 H 92 10/05/20 03:12 98.6 F 74 18 134/68 99 10/04/20 22:56 97.9 F 77 18 149/61 H 96 Diagnostic Findings ECG 10/03: Atrial fibrillation at [address] and T wave abnormality. ECG 10/04: Atrial fibrillation at [address] and T wave abnormality. ECT 10/05: Atrial fibrillation at [address] and T wave abnormality. Telemetry: Atrial fibrillation with a rate in the upper 30s to 50s yesterday afternoon. Rate was in the 60s overnight and is currently in the 70s. PG Care Time/CCT Total # of Minutes Spent Total Time Spent with Patient: Total time spent is greater than 50% in coordination of care (as documented) at patient's floor/unit and/or counseling patient: Coding Level of Care Code 53133 Initial Inpt Care Lvl 2 Diagnoses Atrial fibrillation I48.91 Atrial fibrillation type: unspecified CAD (coronary artery disease) I25.10 Chronic diastolic congestive heart failure I50.32 Hypertension I10 (1) Atrial fibrillation Atrial fibrillation type: unspecified Qualified Code(s): I48.91 - Unspecified atrial fibrillation
[2020-10-05] MEDS ORDERED: cefTRIAXone SODIUM 1,000 MG in DEXTROSE 5% 50 ML IV SCH (13:00)
--- NOTE | 2020-10-05 15:50 | Electrocardiogram Report ---
Test Reason : Blood Pressure : / mmHG Vent. Rate : 069 BPM Atrial Rate : 073 BPM P-R Int : 000 ms QRS Dur : 078 ms QT Int : 410 ms P-R-T Axes : 000 -14 201 degrees QTc Int : 439 ms Atrial fibrillation Nonspecific ST and T wave abnormality Abnormal ECG When compared with ECG of 04-OCT-2020 06:00, No significant change Confirmed by Adrien Arechiga ([id number]) on 10/05/2020 3:49:57 PM Referred By: REFERRED SELF Confirmed By:Adrien Arechiga
--- NOTE | 2020-10-05 16:17 | Discharge Summary ---
Date of Service October 05, 2020 Admission HPI Per Admitting Provider Patient is a pleasant 85 year old female with PMHx Afib on Eliquis, CAD with NSTEMI x2, CKD III-IV, DM2, HTN, Hypothyroidism, Gout, Asthma, Hx CVA, BETHANY, Hemolytic Anemia, that presents with 4 day history of worsening weakness and falls x2 at home in addition to concern for AMS on day of admission. Per history from the ED provider patient was going to a pain clinic appointment around 11:15AM today whenever she started being more altered. There were concerns that she was seeing things in addition to confusion. There were also concerns she may have taken some of her medications inappropriately and that it contributed to her AMS at the time. She was brought to the ED via EMS and a stroke alert was called to evaluate her for concerns of stroke-like symptoms. A head CT was negative and recommendation was made for MRI and MRA of the head and neck, though this had to be delayed as the patient has a history of a bladder stimulator and did not have her MRI compatibility card with her. Upon my evaluation of the patient, she was found to be alert and oriented to person, time, and place. She states that she has been having ongoing and worsening weakness for the past 4 days. She notes that she had similar symptoms 1 month ago when she was admitted for ambulatory dysfunction, and had only been discharged from inpatient rehab 2 weeks ago. She states that this past week she was started on Remeron for her insomnia which she has been taking at night. She is unsure of whether or not this has necessarily worsened her weakness, though she does note falling 2x in the past 4 days. She states her initial fall she rolled out of bed and fell onto her arms and knees and that the second fall she fell and hit the R side of her head. She does note that she chronically weakness on her L side as well since her previous stroke and that her L knee tends to "gives out on me" leading to a majority of her falls. She also notes that she has a history of hemolytic anemia that she is currently working up with Dr. Zavaleta. She has not noticed any chest pain, chest pressure, headache, visual changes, shortness of breath, abdominal pain, dysuria, increased urinary frequency, hematuria, bloody or dark/tarry stools. Med Hx: Afib on Eliquis, CAD with NSTEMI x2, CKD III-IV, DM2, HTN, Hypothyroidism, Gout, Asthma, Hx CVA, BETHANY, Hemolytic Anemia Surg Hx: Rectocele repair, Cholecystectomy, Bladder Stimulator placement Soc Hx: No tobacco, alcohol, illicit drug use. Admission Exam Per Admitting Provider Constitutional: no acute distress Tired appearing Eyes: PERRL, conjunctivae normal, anicteric sclerae normal visual ta by confrontation ENMT: external ear and nose normal, oropharynx normal Neck: trachea midline, no thyromegaly Respiratory: normal respiratory effort, lungs clear to auscultation Cardiovascular: Rate/Rhythm: + irregularly irregular Heart Sounds: normal S1 and normal S2; no murmur Vessels: no JVD Extremities: + edema (1+ b/l ); no calf tenderness Gastrointestinal (Abdomen): normal bowel sounds, soft, nontender, no hepatosplenomegaly Musculoskeletal: Head/Neck/Chest: normocephalic and neck supple; + evidence of head trauma (Ecchymosis of the R temporal region ) and full ROM of neck Spine: normal cervical ROM No cervical, thoracic, or lumbar spinal tenderness. Muscle strength testing of RUE and RLE 5/5 Testing of LUE and LLE 4/5 Neurologic: PERRL, EOMI, accommodation nl, no face palsy, no dysarthria awake; not confused Coordination: normal ciqyat-jo-habs test and normal fsmf-jp-[id number] test Psychiatric: Orientation: alert and oriented x 3 Eye Contact: + fair eye contact Principal Diagnosis generalized weakness, altered mental status Discharge Exam General: Grossly A&O. NAD. Cooperative. HEENT: Atraumatic, normocephalic. EOMI Pulm: Faint fine rales at RLW, otherwise clear to auscultation. No respiratory distress. Cardiac: RRR, -mrg. DP pulses 2+. Ankles have puffy appearance, but no pitting appreciated. Abdominal: Nontender, nondistended, soft. Discharge Data Allergies Allergy/AdvReac Type Severity Reaction Status Date / Time shellfish derived Allergy Severe ANAPHYLAXIS Verified 10/03/20 15:06 iodine Allergy Intermediate ANAPHYLAXIS Verified 10/03/20 15:06 lisinopril Allergy Unknown Unknown Verified 10/03/20 15:06 oxybutynin [From Ditropan] Allergy Unknown Unknown Verified 10/03/20 15:06 sertraline [From Zoloft] Allergy Unknown Unknown Verified 10/03/20 15:06 paroxetine AdvReac Mild GI UPSET Verified 10/03/20 15:06 Consultations 10/03/20 14:46 ED Decision to Admit Stat 10/04/20 16:37 Consult Cardiology Routine Ordered Studies 10/03/20 CT head/brain wo con Stat IMPRESSION: 1. 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 No acute intracranial findings 10/04/20 cxr IMPRESSION: 1. Mild cardiomegaly 2. Mild central vascular prominence without evidence of overt failure 3. No evidence of focal pulmonary consolidation Hospital Course (1) Weakness: 85 year old female with PMHx Afib on Eliquis, CAD with NSTEMI x2, CKD III- IV, DM2, HTN, Hypothyroidism, Gout, Asthma, Hx CVA, BETHANY, Hemolytic Anemia, who presented w/ generalized weakness, fallsx2, and AMS. Lethargy with delirium The generalized weakness, fallsx2 and altered mental status may possibly be secondary to oversedation from polypharmacy w/ Remeron, Nucynta, and Gabapentin vs hypoxia/apneic episodes from BETHANY. Contribution from UTI is also possible. Patient had some symptoms suggestive of delirium on admission a she endorsed visual hallucinations. The subsequent day (10/04), patient had bradycardia down to low 50s and was minimally arousable w/ sternal rub. She appeared somnolent and verbalized answers but was too tired to open her eyes. The symptoms resolved completely that evening and she returned to mental baseline, w/ the only changes being cpap for sleep apnea and continued holding of sedating medications and beta blockers. CT head did not suggest new stroke. BSG was normal. todo: Follow up w/ PCP on 10/09/20. Recommend CPAP/sleep study referral. Please perform 2 step to assess for need for home O2. Folow up w/ outpatient Meghann routinely (no specific discharge appointment made). Discontinued Remeron, Gabapentin (both the TID and qhs), and Nucynta Patient has preexisting home health. This will be continued. bradycardia - cardiology consulted 10/04 for the bradycardia to low 50s and transient a flutter. discontinued digoxin. held metoprolol. can restart metoprolol as outpatient at half dose if if needed for rate control of afib. Hypoxia in the setting of obstructive sleep apnea -No acidosis or hypercapnia on ABG. +hypoxemia to 50s. -likely 2/[address] due to sedation/atelactasis/?fluid overload -was provided 2L NC during the hospitalization, but is not on home O2. CPAP eval recommended. -Not needing oxygen on discharge. Chronic HFpEF -10/04 cxr w/o evidence of failure -Continued home lasix -Most recent echo 08/15/20 with EF 60-65% though noting severe pulmonary hypertension, suspect secondary to BETHANY and poor cpap compliance -LOW sodium diet as outpatient Chronic Hemolytic Anemia -Being worked up outpatient with Dr. Zvaaleta -Hemoglobin 7.7 in ED, ~stable at mid 7 -Ferritin (98.8), Fibrinogen, Haptoglobin (low at <8), Lactate Dehydrogenase (elevated at 600, chronic), Reticulocyte count (0.16H) ordered PATY on stage 4 ckd -last creat before admission 1.49. on admission - 1.8 - likely sec to poor oral intake. -Improved asymptomatic bacteruria -Patient does have 1+ bacteruria Nitrate + urine, though no urinary symptoms. - update: urine culture pos for 100k+ CFU ecoli. 1 dose of IV rocephin provided. Treating w/ 7 additional days of BID PO Keflex because patient presented w/ confusion/AMS at admission. - f/u urine culture sensitivities Acute on Chronic Weakness and Ambulatory Dysfunction -PT/OT ordered Chronic Pain secondary to Lumbar Stenosis and Peripheral Neuropathy -d/imelda nucynta and gabapentin. to discuss resuming these meds as outpatient with -Continue Cymbalta Atrial Fibrillation -Continue home eliquis -Digoxin discontinued per cardiology -Metoprolol held. Can restart at half dose in future if needed CAD -With history of NSTEMI x2 -Troponin elevated 0.095 on admission, ->0.098->0.079 -Patient not endorsing angina -Continue Plavix -Continue Atorvastatin HTN -Continue home metoprolol -Continue home Isosorbide mononitrate Hypothyroidism -Continue home Synthroid -TSH check in AM Hx Gout -Continue home allopurinol DM2 -Continue home Lantus GERD -Continue home pantoprazole code status this admission: full (2) AMS (altered mental status): (3) Ambulatory dysfunction: (4) Hyperbilirubinemia: (5) Hypoxia: (6) Spinal stenosis of lumbar region: (7) Atrial fibrillation: (8) CAD (coronary artery disease): (9) GERD (gastroesophageal reflux disease): Total Time Total Time Spent Total Time Spent (In Minutes): See attending documentation. Discharge Plan Discharge Items Patient Disposition: Home - Home Health Services Reason For Visit: HYPOXIA, AMS, WEAKNESS Discharge Diagnosis: hypoxia, lethargy Activity: Per Instructions section Non-emergency contact: Primary Care Provider Call non-emergency contact if: you have any medication questions, your symptoms worsen and you have a fever Follow-up/Referrals: Domi Wetzel, [Primary Care Provider] - 10/09/20 10:20 am Diet: Regular Addtl Attending Provider Instructions: Mrs. Porter, You were admitted to [facility] for generalized weakness and severe fatigue. During this admission, your heart rate dropped to low 50s and you had difficulty staying awake. Home medications that may cause drowsiness were held. You were given some supplemental oxygen and cpap while here. Your symptoms resolved and you returned to your normal self. The cause of your severe fatigue may have been a combination of too many sedating medications plus sleep apnea causing periods of not breathing. Please follow up with your PCP Dr. Wetzel or one of her partners in 3-4 days. Ask your PCP to refer to sleep study to evaluate for a cpap machine. Also, ask your PCP to prescribe a cardiac event monitor. New antibiotic (Your urine grew bacteria. You did not have symptoms, but there is possibility it contributed to your admission symptoms.) cephalexin (Keflex) 500 mg twice a day for 7 days. Start on 10/06/20. Medication changes explained Digoxin stopped per labor specialist recommendation. Stopped metoprolol succinate 100 mg twice a day. PCP can restart the metoprolol succinate at half dose (50 mg twice a day) at a later time if fast heart rate becomes an issue. I have stopped the gabapentin, mirtazapine, and Nucynta because those can all cause drowsiness. Standard return precautions If you develop any new or worsening symptoms including fever, chills, sweats, chest pain, chest pressure, difficulty breathing, uncontrolled nausea/vomiting, rash, wheezing, passing out or nearly passing out, bleeding, black/bloody bowel movements, or other new or concerning symptoms please call your primary care physician, or call 911 for re-evaluation in the emergency department if you are very concerned. Pending Studies at Discharge: No Stand-Alone Forms: [facility], Smoking Cessation Medications and DC Order Prescriptions: New cephalexin 500 mg capsule 500 mg PO BID 7 Days Qty: 14 RF: 0 Continued levothyroxine 50 mcg tablet 50 mcg PO QAM 30 Days Qty: 30 RF: 5 fluticasone propionate 50 mcg/actuation spray,suspension 1 spray intranasal BID PRN (Reason: allergy symptoms) Qty: 16 RF: 1 pantoprazole 40 mg tablet,delayed release (DR/EC) 40 mg PO QAM Qty: 90 RF: 1 allopurinol 100 mg tablet 300 mg PO QAM Qty: 270 RF: 1 cholecalciferol (vitamin D3) [Vitamin D3] 25 mcg (1,000 unit) tablet 2,000 unit PO QAM RF: 0 Novolog Flexpen U-100 Insulin 100 unit/mL (3 mL) insulin pen 7 - 10 unit subcut TIDM Qty: 45 RF: 1 Eliquis 2.5 mg tablet 2.5 mg PO BID Qty: 180 RF: 1 furosemide 40 mg tablet 40 - 80 mg PO BID Qty: 270 RF: 1 potassium chloride 20 mEq tablet extended release 20 meq PO BID Qty: 90 RF: 1 magnesium oxide 400 mg magnesium tablet 400 mg PO BID Qty: 90 RF: 1 lidocaine 4 % gel 1 appln TOP TID PRN (Reason: right lower leg pain) Qty: 30 RF: 0 acetaminophen [Tylenol Arthritis Pain] 650 mg tablet extended release 1,300 mg PO HS RF: 0 isosorbide mononitrate 30 mg tablet extended release 24 hr 30 mg PO QAM Qty: 90 RF: 1 Lantus Solostar U-100 Insulin 100 unit/mL (3 mL) insulin pen 40 unit subcut HS RF: 0 duloxetine 60 mg capsule,delayed release(DR/EC) 60 mg PO QAM Qty: 90 RF: 1 albuterol sulfate [ProAir HFA] 90 mcg/actuation HFA aerosol inhaler 1 - 2 puffs INH Q4H PRN (Reason: shortness of breath or wheezing) Qty: 6.7 RF : 3 atorvastatin 20 mg tablet 20 mg PO QPM RF: 0 clopidogrel [Plavix] 75 mg tablet 75 mg PO DAILY Qty: 0 RF: 0 Discontinued metoprolol succinate 50 mg tablet extended release 24 hr 100 mg PO BID Qty: 360 RF: 3 digoxin 125 mcg (0.125 mg) tablet 125 mcg PO QAM Qty: 90 RF: 1 diclofenac sodium [Voltaren] 1 % gel 2 g TOPICAL HS PRN (Reason: Pain) Qty: 100 RF: 3 mirtazapine 15 mg tablet 15 mg PO HS Qty: 30 RF: 3 gabapentin 800 mg tablet 800 mg PO TID 90 Days Qty: 270 RF: 1 gabapentin 300 mg capsule 300 mg PO HS PRN (Reason: pain, severe) Qty: 90 RF: 1 Nucynta 50 mg tablet 100 mg PO BID PRN (Reason: pain) RF: 0 Discharge Orders: Discharge Order (Routine); Ordered 10/05/20 Ordered By: Tyrone Alaniz Admission Data Admit Date/Time: 10/03/20 17:10 Attending Provider: Julisa Palmoino Admit Provider: Sam Cai Primary Care Provider: Domi Wetzel Other Providers: Roz Spicer ; Jesus Blanco [facility] ; Adrien Arechiga Other Interventions: Discharge Summary Assessment (RN) Last Done: 10/05/20 16:03 Supervising Physician Co-Signing Physician Notes Resident Physician Supervision Note: I independently interviewed and examined the patient and verified the olivarez history and physical, reviewed labs and image studies and agree with resident Dr. Alaniz findings and care plan. Stop remeron stop digoxin per cardio. to arrange sleep study as outpatient Resident Activity Tracking Resident Involvement: Resident Care Provided Care Provided: Adult [facility] Medicine Home Health Attestation I certify that this patient is under my care and that I, or a physicians dental chairside assistant working with me, had a face to-face encounter that meets the home health [id number] encounter requirements with this patient. The encounter with the patient was in whole, or in part, for the following medical condition, which is the primary reason for home health care (list medical condition): I certify that, based on my findings, the following services are medically necessary home health services: My clinical findings support the need for the above services because: PT Assessment for Endurance / Balance / Strength PT Eval for Safety and Mobility PT Eval for Safety, Gait Training, Assistive Devices PT Gait and Balance Training, Strengthening and Safety Skilled Nsg Assessment Further, I certify that my clinical findings support that this patient is homebound (i.e. absences from home require considerable and taxing effort and are for medical reasons or protestant services or infrequently or of short duration when for other reasons) because: Assistance of 1 Person for Ambulation/Activities Certification for Home Health Services: Based on the above findings, I certify that this patient is confined to the home and needs intermittent residential care, physical therapy and/or speech therapy or continues to need occupational therapy. The patient is under my care, and I have initiated the establishment of the plan of care. This patient will be followed by a physician who will periodically review the plan of care.
== END 2020-10-05 16:56 | disposition home health service (06) ==
LOC: ED 12:15 → INTOOBSV 17:10 → 2W 17:10

== ENCOUNTER 2020-11-24 04:57 | Inpatient (IN) ==
[2020-11-24] MEDS ORDERED: ACETAMINOPHEN 325 MG TAB PO STA (05:44)
[2020-11-24 06:18] LABS: Hematocrit (blood only) 27.2 % (37-47); Mean Corpuscular Hemoglobin 33.2 pg (25-34); Mean Corpuscular Hgb Conc 29.4 g/dL (32-36); Mean Corpuscular Volume 112.9 fL (80-100); Mean Platelet Volume 12.1 fL (7.4-10.4); Platelet Count 302 K/uL (130-400); RDW Coefficient of Variation 23.8 % (11.5-14.5); RDW Standard Deviation 89.1 fL (36.4-46.3); Red Blood Count 2.41 M/uL (4.2-5.4); White Blood Count 7.15 K/uL (4.8-10.8)
[2020-11-24 06:23] LABS: Albumin Level 3.4 gm/dl (3.4-5.0); BUN Creatinine Ratio 18.2 (10-20); Basophils # (auto) 0.01 K/uL (0-0.2); Basophils % (auto) 0.1 %; Bilirubin,Total 1.8 mg/dl (0.2-1); Calcium 8.3 mg/dl (8.5-10.1); Eosinophils # (auto) 0.27 K/uL (0-0.5); Eosinophils % (auto) 3.8 %; Est GFR (African American) 26.7 ml/min; Est GFR (Non-African American) 23.1 ml/min; Globulin 3.5 gm/dl (2.5-4.0); Immature Granulocytes # (auto) 0.03 K/uL (0.00-0.02); Immature Granulocytes % (auto) 0.4 %; Lymphocytes # (auto) 0.69 K/uL (1.2-3.4); Lymphocytes % (auto) 9.7 %; Macrocytosis Present; Monocytes # (auto) 0.62 K/uL (0.11-0.59); Monocytes % (auto) 8.7 %; Neutrophils # (auto) 5.53 K/uL (1.4-6.5); Neutrophils % (auto) 77.3 %; Ovalocytes 1+; Polychromasia 1+; Total Protein 6.9 gm/dl (6.4-8.2); Troponin I 0.018 ng/ml (0-0.045)
[2020-11-24 07:03] LABS: Appearance Urine Clear (Clear); Bacteria Urine Automated 3+ (Negative); Bilirubin Urine Negative (Negative); Blood Urine Negative (Negative); Color Urine Yellow; Glucose Urine UA Negative (Negative); Ketones Urine Negative (Negative); Leukocyte Esterase Urine Trace (Negative); Nitrite Urine Positive (Negative); Protein Urine Negative (Negative); RBC Urine Automated 0-4 /hpf (0-4); Specific Gravity Urine 1.013 (1.000-1.030); Urobilinogen Urine Negative (Negative)
--- NOTE | 2020-11-24 07:13 | XRay Report ---
XR chest 1V portable CLINICAL HISTORY: Dyspnea COMPARISON STUDY: Chest CT June 26, 2020. Chest radiograph November 07, 2020. FINDINGS: Lung volumes are normal. Lungs are clear. There is no pneumothorax or pleural effusion. Car diac size is stable. Mediastinal contours are normal. There is no evidence for pulmonary edema. IMPRESSION: No acute cardiopulmonary findings. ACT 112: Negative or not required by law. Electronically signed by: Jeremy Gabriel M.D. 11/24/2020 7:12 AM
[2020-11-24] MEDS ORDERED: fentaNYL citrate 100 MCG/2 ML VIAL IV STA (07:58)
--- NOTE | 2020-11-24 09:28 | History & Physical Report ---
Date of Service November 24, 2020 Assessment & Plan (1) Acute on chronic heart failure with preserved ejection fraction: Plan: Usual dose Lasix total 120mg PO daily. Will treat with 80mg IV BID here and monitor response of BNP, Cr and leg swelling. Mainly right sided heart failure with severe pulmonary hypertension on prior Echocardiogram which explains her lack of pulmonary edema. Strict I&Os Daily weight Low Na, Fluid restricted diet 1500ml Leg swelling may also be some venous insufficiency in addition given prior history of this (2) Venous insufficiency of both lower extremities: Plan: see above (3) Diabetes mellitus with renal complications: Plan: HbA1C 5.2. 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 ?contributing towards right heart failure Albuterol PRN for shortness of breath. (10) GERD (gastroesophageal reflux disease): Plan: Continue pantoprazole 40mg PO daily (11) CAD (coronary artery disease): Plan: Continue clopidogrel, Eliquis, Metoprolol succinate,. Unknown why she is not on statin. Admission and Anticipated Discharge Date Admission Date: November 24, 2020 History of Present Illness Chief Complaint: Leg swelling Primary Care Provider: DO Ezio Hurtadodarren Porter is an 85 year old female with known severe pulmonary hypertension who presents to the ER with leg swelling. She reports this has been getting worse for the last 3-4 days. She has been complaint with her medications and daily weights. She follows with the [facility] [place] heart failure clinic. Usually takes 80mg Lasix QAM and 40mg QPM; she has not increased this with her current leg swelling. She reports weighing herself every morning and weight stable around 262 lb. No shortness of breath, chest pain, orthopnea (although gets nauseous on lying flat), paroxysmal nocturnal dyspnea or palpations. No fever or chills. Started to notice some weeping from her legs today and the pain from the swelling prompted her to come to the ER. Allergies Allergy/AdvReac Type Severity Reaction Status Date / Time shellfish derived Allergy Severe ANAPHYLAXIS Verified 11/24/20 09:09 iodine Allergy Intermediate ANAPHYLAXIS Verified 11/24/20 09:09 lisinopril Allergy Unknown Unknown Verified 11/24/20 09:09 oxybutynin [From Ditropan] Allergy Unknown Unknown Verified 11/24/20 09:09 sertraline [From Zoloft] Allergy Unknown Unknown Verified 11/24/20 09:09 paroxetine AdvReac Mild GI UPSET Verified 11/24/20 09:09 Home Medications Medication Instructions Recorded Confirmed Type albuterol sulfate 90 mcg/actuation 1 - 2 puffs INH Q4H PRN #6.7 gm 04/26/19 11/24/20 Rx aerosol inhaler (ProAir HFA) isosorbide mononitrate 30 mg 30 mg PO QAM #90 tab 04/30/20 11/24/20 Rx tablet,extended release 24 hr acetaminophen 650 mg 1,300 mg PO HS tab 05/11/20 11/24/20 History tablet,extended release (Tylenol Arthritis Pain) cholecalciferol (vitamin D3) 25 2,000 unit PO QAM tab 05/11/20 11/24/20 History mcg (1,000 unit) tablet (Vitamin D3) insulin aspart U-100 100 unit/mL 7 - 10 unit SUBCUT TIDM #45 ml 06/01/20 11/24/20 Rx (3 mL) subcutaneous pen (Novolog Flexpen U-100 Insulin aspart) apixaban 2.5 mg tablet (Eliquis) 2.5 mg PO BID #180 tab 08/06/20 11/24/20 Rx insulin glargine 100 unit/mL (3 30 unit SUBCUT HS ml 09/07/20 11/24/20 History mL) subcutaneous pen (Lantus Solostar U-100 Insulin) magnesium oxide 400 mg PO BID #90 tab 10/02/20 11/24/20 Rx allopurinol 100 mg tablet 300 mg PO QAM 11/07/20 11/24/20 History (Zyloprim) clopidogrel 75 mg tablet (Plavix) 75 mg PO QAM 11/07/20 11/24/20 History duloxetine 60 mg capsule,delayed 60 mg PO QAM 11/07/20 11/24/20 History release (Cymbalta) fluticasone propionate 50 1 spray INTRANASAL BID PRN 11/07/20 11/24/20 History mcg/actuation nasal spray,suspension (Flonase Allergy Relief) levothyroxine 50 mcg tablet 50 mcg PO DAILYBB 11/07/20 11/24/20 History (Synthroid) metoprolol succinate 50 mg 100 mg PO BID 11/07/20 11/24/20 History tablet,extended release 24 hr (Toprol XL) mirtazapine 15 mg tablet (Remeron) 15 mg PO QAM 11/07/20 11/24/20 History pantoprazole 40 mg tablet,delayed 40 mg PO QAM 11/07/20 11/24/20 History release (Protonix) permethrin 5 % topical cream 1 applic TOPICAL Q14D 11/07/20 11/24/20 History (Elimite) potassium chloride 20 mEq 10 meq PO BID 11/07/20 11/24/20 History tablet,extended release (K-Tab) furosemide 40 mg tablet (Lasix) 80 mg PO .COMPLEX tab 11/15/20 11/24/20 History clindamycin phosphate 1 % topical 1 applic TOPICAL UD 11/24/20 11/24/20 History gel Past Med/Surg History Medical History Anemia Chronic macrocytic Asthma Atrial fibrillation CAD (coronary artery disease) Cerebrovascular disease Chronic diastolic congestive heart failure Chronic kidney disease (CKD) Stage III, baseline Cr 1.3-1.5mg/dL. Complicated with normocytic anemia and secondary hyperparathyroidism. Followed by nephrology. 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 Cannot perform MRI due to bladder implant. Followed by pain management. Epidural steroid injections with improvement of pain. Evaluated by ortho, decided against surgery. Managed with gabapentin 300mg TID + APAP PRN + tapentadol 50mg BID PRN GERD (gastroesophageal reflux disease) History of gout Managed with allopruinol daily. No recent gouty attacks. Uric acid suppressed 3.4 mg/dl (12/22) Hyperlipidemia Secondary prevention with moderate intensity statin (atorvastatin 20mg daily) Hypertension Hypothyroidism Lichen planus Macular degeneration Mitral regurgitation Neurologic gait dysfunction Obstructive sleep apnea Long standing. Managed with CPAP nightly. CPAP titration polysomnography (07/14). Sensorineural hearing loss (SNHL) of both ears Venous insufficiency of both lower extremities Surgical History H/O colonoscopy History of repair of rectocele S/P breast biopsy S/P section S/P cholecystectomy S/P hysterectomy S/P implantation of urinary electronic stimulator device Family History Father , Age 64 No problems noted. Mother , Age 61 No problems noted. Other Coronary heart disease Denies family history of Ovarian cancer Prostate cancer Crohn's disease Breast cancer Lung cancer Colorectal cancer Social History Smoking Status: Never smoker Second Hand Exposure: No; Do You Dip or Chew Tobacco: No; Tobacco Cessation Education Requested by Patient: No Hx Alcohol Use: No Hx Substance Use: No Preferred Language: Citizen Of [place] Communication Ability: Effective Visual Impairment: No Limitations Hearing Ability: Normal Business Development Manager Required: No Beliefs That Will Affect Care: None marital status: / Current Living Situation: Spouse Current Living Situation Comment: lives with Calderon Cordoba life partner current occupational status: retired Other Information That Helps Us Care for You: No Feels Safe at Home: Yes Safety Concerns: Feels Safe At This Time Childhood Exposure to Second-Hand Smoke: No Dental Care, Regularly: Yes Physical Activity Frequency: 1-2 Times per Week Physical Activity Frequency Comment: physical therapy Seatbelt Use: always Sunscreen Use: Yes Assistive Devices: Denture - Upper Review of Systems Review of Systems: All systems reviewed & are unremarkable except as noted in HPI & below Physical Exam Constitutional: WD/WN, vitals as above Respiratory: normal respiratory effort, lungs clear to auscultation Cardiovascular: Rate/Rhythm: regular rate and + irregularly irregular Heart Sounds: no murmur Vessels: + JVD Extremities: normal capillary refill, + calf tenderness (b/l equal) and + pedal edema (3+ equal b/l pitting edema to mid thighs) Gastrointestinal (Abdomen): Inspection/Auscultation: normal bowel sounds; abdomen not distended Percussion/Palpation: abdomen soft; abdomen nontender Musculoskeletal: no cyanosis or clubbing, extremities motor strength 5/5 Skin: no rashes, warm and dry Neurologic: moves all extremities and awake; not confused Psychiatric: A+Ox3, euthymic affect Results & Data Results & Data ([facility]) Vital Signs (Past 12 Hours) Vital Signs Temp Pulse Resp BP Pulse Ox 11/24/20 06:32 105 H 18 120/68 100 11/24/20 05:40 100 11/24/20 05:39 95 H 15 132/69 100 11/24/20 05:01 36.6 C 91 H 16 136/56 L 98 Diagnostic Findings XR chest 1V portable CLINICAL HISTORY: Dyspnea COMPARISON STUDY: Chest CT June 26, 2020. Chest radiograph November 07, 2020. FINDINGS: Lung volumes are normal. Lungs are clear. There is no pneumothorax or pleural effusion. Cardiac size is stable. Mediastinal contours are normal. There is no evidence for pulmonary edema. IMPRESSION: No acute cardiopulmonary findings. Medications Administered ER Medications given: Acetaminophen 650mg PO Fentanyl 50 mcg IV ECG Indication: other Rate (beats per minute): 110 Rhythm: atrial fibrillation Findings: no acute ischemic change Comparison ECG Date: from (November 07, 2020) Change: no significant change Code Status & VTE Plan Code Status Full VTE Prophylaxis Plan VTE Prophylaxis will be ordered: Yes PG Care Time/CCT Total # of Minutes Spent Total Time Spent with Patient: Total time spent is greater than 50% in coordination of care (as documented) at patient's floor/unit and/or counseling patient: Coding Level of Care Code 19597 Initial Inpt Care Lvl 3 Diagnoses Acute on chronic heart failure with preserved ejection fraction I50.33 Diabetes mellitus with renal complications E11.29 Anemia D64.9 Anemia type: unspecified type Obstructive sleep apnea G47.33 Atrial fibrillation I48.91 Atrial fibrillation type: unspecified Chronic kidney disease (CKD) N18.9 Hypothyroidism E03.9 Hypothyroidism type: unspecified COPD (chronic obstructive pulmonary disease) J44.9 GERD (gastroesophageal reflux disease) K21.9 Esophagitis presence: esophagitis presence not specified CAD (coronary artery disease) I25.10 Venous insufficiency of both lower extremities I87.2 (1) Anemia Anemia type: unspecified type Qualified Code(s): D64.9 - Anemia, unspecified (2) Atrial fibrillation Atrial fibrillation type: unspecified Qualified Code(s): I48.91 - Unspecified atrial fibrillation (3) Hypothyroidism Hypothyroidism type: unspecified Qualified Code(s): E03.9 - Hypothyroidism, unspecified (4) GERD (gastroesophageal reflux disease) Esophagitis presence: esophagitis presence not specified Qualified Code(s): K21.9 - Gastro-esophageal reflux disease without esophagitis
[2020-11-24] MEDS ORDERED: FUROSEMIDE 40 MG/4 ML VIAL IV STA (09:31)
[2020-11-24] MEDS ORDERED: ONDANSETRON INJ 2 MG/ML 2 ML VIAL IV PRN (10:41)
[2020-11-24] MEDS ORDERED: FLUTICASONE PROPIONATE NA SPR 16 GM BTL NAE PRN (10:41)
[2020-11-24] MEDS ORDERED: PHARMACY GLYCEMIC MGMT CONSULT PRN (10:41)
[2020-11-24] MEDS ORDERED: ACETAMINOPHEN 325 MG TAB ONE (10:46)
[2020-11-24] MEDS: ACETAMINOPHEN 325 MG TAB PO PRN ×2 (10:47→17:03)
[2020-11-24] MEDS ORDERED: DEXTROSE 50% 50 ML SYRINGE IV PRN (11:30)
[2020-11-24] MEDS ORDERED: GLUCOSE 10 TABS/TUBE PO PRN (11:30)
[2020-11-24] MEDS ORDERED: CARBOHYDRATES FOR HYPOGLYCEMIA PO PRN (11:30)
[2020-11-24] MEDS ORDERED: GLUCAGON FOR INJ 1 MG VIAL SQ PRN (11:30)
[2020-11-24] MEDS ORDERED: GLUCOSE 40% GEL 15 GM TUBE PO PRN (11:30)
[2020-11-24] MEDS: INSULIN ASPART 100 UNITS/ML 3 ML PEN SC SCH ×3 (12:12→21:09)
[2020-11-24] MEDS ORDERED: ALBUTEROL HFA 8 GM INHALER INH PRN (12:48)
[2020-11-24] MEDS: oxyCODONE HCL IR 5 MG TAB (IMMEDIATE RELEASE) PO PRN ×2 (12:50→21:05)
--- NOTE | 2020-11-24 14:45 | Pharmacy Report ---
Pharmacy Glycemic Short Note 2 - Date of Service November 24, 2020 - Glycemic Short BSG Results (Last 24 hours): 11/24/20 11/24/20 05:36 11:50 Glucose 134 H POC Glucose 115 H OUTPATIENT ANTIDIABETIC REGIMEN: * Lantus 30 units HS * Novolog 7-10 units TID with meals * A1c 5.2% 10/04/20 ASSESSMENT: * 85 year old female admitted for worsening of leg swelling, type 2 DM, well controlled (unless having hypoglycemia at home?) * Will use basal bolus insulin similar to home doses as inpatient and titrate to goal blood sugar PLAN FOR INPATIENT GLYCEMIC CONTROL: * Basal insulin * Lantus 30 units SQ HS * Bolus insulin * NovoLog per scale ACHS or Q6hrs while NPO * Goal Range: Low 110 mg/dL - High 140 mg/dL * Correction Factor: 25 mg/dL/unit * Nutritional / Prandial insulin per carb ratio of 1 unit per 9 grams CHO consumed PLAN FOR DISCHARGE: * A1c 5.2%, continue home regimen, unless experiencing hypoglycemia.
--- NOTE | 2020-11-24 16:06 | Emergency Department Note ---
Impression & Plan Bilateral edema of lower extremity, Chronic CHF Admit to [facility] service ED Provider Note NAME: JULIO C FAULKNER AGE: 85 SEX: F ARRIVES VIA: Walk-In INFORMANT: Patient and her ED PROVIDER(S): Mary Lira DO CHIEF COMPLAINT: " My right leg is leaking" PLAN: Disposition: Admit to the [facility] Condition: Fair MEDICAL DECISION MAKING: This is an 85-year-old female patient with history of heart failure who presents to the emergency department with increased lower extremity swelling that significantly worsened tonight to the point that she has open wounds that are leaking. Patient seems to have no respiratory complications but has a history of chronic heart failure and now has significant lower extremity edema despite being on a fairly large dose of Lasix. Patient has venous insufficiency in her lower extremities and history of renal insufficiency. I have discussed the case with Dr. Tsang from the [facility] group and they will evaluate for further management. Triage Nursing notes reviewed and agree with them. Additional history obtained from the who is at the bedside Prior medical records reviewed Vital Signs: reviewed and remarkable for tachycardia Differential diagnosis: Congestive heart failure, peripheral vascular disease, infected wounds, superficial thrombophlebitis, DVTs, cellulitis Diagnostics interpreted by me: ECG: Atrial fibrillation with rapid ventricular response at a rate of 110. There is no ST segment elevation or signs of ischemia. There is no ectopy. Cardiac Monitoring: Atrial fibrillation at a rate of 106 Laboratory studies: See below Imaging studies: As per my interpretation Portable chest x-ray: No acute pulmonary infiltrates or fluid overload. HPI: 85/F arrives for evaluation of drainage from lower extremities. This is an 85-year-old female patient with a history of CHF who presents to the emergency department with lower extremity swelling and leaking wounds on the right leg. The explained that she has had increasing swelling to both legs but mostly the right leg over the past 3 to 4 days. Patient denies any increasing shortness of breath or respiratory distress. She states that she has had home health, occupational therapy and physical therapy coming to the house for the past 1 month and she has been doing really well with this. She describes taking Lasix 80 mg in the morning and 40 mg at night. She describes this dose as a good dose for her. However, in the past 3 to 4 days, the swelling has dramatically increased. ROS: See above HPI for pertinent positives & negatives. A total of 10 systems reviewed and were otherwise negative. PAST MEDICAL HISTORY:See Below PAST SURGICAL HISTORY:See Below FAMILY HISTORY:See Below SOCIAL HISTORY:See Below HOME MEDICATIONS:See list ALLERGIES:See list VITALS:See Below PHYSICAL EXAMINATION: HEENT: Head - normocephalic and atraumatic Pupils are equal, round, and reactive to light. Extraocular eye muscles are intact, and sclera are anicteric. Nose - moist nasal mucosa without discharge. Mouth - moist buccal mucosa. Oropharynx is nonerythematous and there is no tonsillar exudate or edema noted. Neck: Supple; no JVD, nuchal rigidity, cervical lymphadenopathy, or auscultated bruits. Heart: Irregularly irregular rhythm with a tachycardic rate. There is a normal S1 and S2 with no murmurs, clicks, or gallops appreciated. Lungs: Clear to auscultation bilaterally with no wheezes, rales, or rhonchi. Abdomen: Soft, completely nontender, nondistended, with good bowel sounds. There are no palpable pulsatile masses or hepatosplenomegaly. There is no guarding, rigidity, or rebound noted. Extremities: 3+ pitting edema in both lower extremities with open wounds in the right tib-fib region of the right leg. There is no significant erythema noted about the lower extremities. Skin: warm and dry with good turgor and no rashes. ED COURSE: Times/Reassessments: 0520: The patient was evaluated in room a 11. A complete history and physical was performed. Previous electronic medical records were reviewed. An IV lock was initiated and labs were drawn as above. A twelve-lead EKG was obtained. Order was placed for continuous cardiac monitoring. The patient was in atrial fibrillation at a rate of 110. A portable chest x-ray was performed. I reevaluated the patient at this time. She was sleeping. I woke her and reviewed the results of the labs and the x-ray with her. I discussed the case with the [facility] hospitalist and they will evaluate for further management. Mary Lira DO Past Med/Surg History Medical History Anemia Chronic macrocytic Asthma Atrial fibrillation CAD (coronary artery disease) Cerebrovascular disease Chronic diastolic congestive heart failure Chronic kidney disease (CKD) Stage III, baseline Cr 1.3-1.5mg/dL. Complicated with normocytic anemia and secondary hyperparathyroidism. Followed by nephrology. 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 Cannot perform MRI due to bladder implant. Followed by pain management. Epidural steroid injections with improvement of pain. Evaluated by ortho, decided against surgery. Managed with gabapentin 300mg TID + APAP PRN + tapentadol 50mg BID PRN GERD (gastroesophageal reflux disease) History of gout Managed with allopruinol daily. No recent gouty attacks. Uric acid suppressed 3.4 mg/dl (12/22) Hyperlipidemia Secondary prevention with moderate intensity statin (atorvastatin 20mg daily) Hypertension Hypothyroidism Lichen planus Macular degeneration Mitral regurgitation Neurologic gait dysfunction Obstructive sleep apnea Long standing. Managed with CPAP nightly. CPAP titration polysomnography (07/14). Sensorineural hearing loss (SNHL) of both ears Venous insufficiency of both lower extremities Surgical History H/O colonoscopy History of repair of rectocele S/P breast biopsy S/P section S/P cholecystectomy S/P hysterectomy S/P implantation of urinary electronic stimulator device Family History Father , Age 64 No problems noted. Mother , Age 61 No problems noted. Other Coronary heart disease Denies family history of Ovarian cancer Prostate cancer Crohn's disease Breast cancer Lung cancer Colorectal cancer Social History Smoking Status: Never smoker Second Hand Exposure: No; Do You Dip or Chew Tobacco: No; Tobacco Cessation Education Requested by Patient: No Hx Alcohol Use: No Hx Substance Use: No Preferred Language: Latvian Communication Ability: Effective Visual Impairment: No Limitations Hearing Ability: Normal Etl Lead Required: No Beliefs That Will Affect Care: None marital status: / Current Living Situation: Spouse Current Living Situation Comment: lives with Calderon [employer]ondragon partner current occupational status: retired Other Information That Helps Us Care for You: No Feels Safe at Home: Yes Safety Concerns: Feels Safe At This Time Childhood Exposure to Second-Hand Smoke: No Dental Care, Regularly: Yes Physical Activity Frequency: 1-2 Times per Week Physical Activity Frequency Comment: physical therapy Seatbelt Use: always Sunscreen Use: Yes Assistive Devices: Denture - Lower Allergies Allergies Allergy/AdvReac Type Severity Reaction Status Date / Time shellfish derived Allergy Severe ANAPHYLAXIS Verified 11/24/20 09:09 iodine Allergy Intermediate ANAPHYLAXIS Verified 11/24/20 09:09 lisinopril Allergy Unknown Unknown Verified 11/24/20 09:09 oxybutynin [From Ditropan] Allergy Unknown Unknown Verified 11/24/20 09:09 sertraline [From Zoloft] Allergy Unknown Unknown Verified 11/24/20 09:09 paroxetine AdvReac Mild GI UPSET Verified 11/24/20 09:09 Home Meds Home Medications Medication Instructions Recorded Confirmed acetaminophen 650 mg 1,300 mg PO HS tab 05/11/20 11/24/20 tablet,extended release (Tylenol Arthritis Pain) cholecalciferol (vitamin D3) 25 2,000 unit PO QAM tab 05/11/20 11/24/20 mcg (1,000 unit) tablet (Vitamin D3) insulin glargine 100 unit/mL (3 30 unit SUBCUT HS ml 09/07/20 11/24/20 mL) subcutaneous pen (Lantus Solostar U-100 Insulin) allopurinol 100 mg tablet 300 mg PO QAM 11/07/20 11/24/20 (Zyloprim) clopidogrel 75 mg tablet (Plavix) 75 mg PO QAM 11/07/20 11/24/20 duloxetine 60 mg capsule,delayed 60 mg PO QAM 11/07/20 11/24/20 release (Cymbalta) fluticasone propionate 50 1 spray INTRANASAL BID PRN 11/07/20 11/24/20 mcg/actuation nasal spray,suspension (Flonase Allergy Relief) levothyroxine 50 mcg tablet 50 mcg PO DAILYBB 11/07/20 11/24/20 (Synthroid) metoprolol succinate 50 mg 100 mg PO BID 11/07/20 11/24/20 tablet,extended release 24 hr (Toprol XL) mirtazapine 15 mg tablet (Remeron) 15 mg PO QAM 11/07/20 11/24/20 pantoprazole 40 mg tablet,delayed 40 mg PO QAM 11/07/20 11/24/20 release (Protonix) permethrin 5 % topical cream 1 applic TOPICAL Q14D 11/07/20 11/24/20 (Elimite) potassium chloride 20 mEq 10 meq PO BID 11/07/20 11/24/20 tablet,extended release (K-Tab) furosemide 40 mg tablet (Lasix) 80 mg PO .COMPLEX tab 11/15/20 11/24/20 clindamycin phosphate 1 % topical 1 applic TOPICAL UD 11/24/20 11/24/20 gel Previous Rx's Medication Instructions Recorded albuterol sulfate 90 mcg/actuation 1 - 2 puffs INH Q4H PRN #6.7 gm 04/26/19 aerosol inhaler (ProAir HFA) isosorbide mononitrate 30 mg 30 mg PO QAM #90 tab 04/30/20 tablet,extended release 24 hr insulin aspart U-100 100 unit/mL 7 - 10 unit SUBCUT TIDM #45 ml 06/01/20 (3 mL) subcutaneous pen (Novolog Flexpen U-100 Insulin aspart) apixaban 2.5 mg tablet (Eliquis) 2.5 mg PO BID #180 tab 08/06/20 magnesium oxide 400 mg PO BID #90 tab 10/02/20 Results & Data (ED) Vital Signs Vital Signs - 24 hr 11/24/20 05:01 11/24/20 05:39 11/24/20 05:40 Temperature 36.6 C Temperature Source Temporal Artery Scan Pulse Rate 91 H 95 H Pulse Rate from SpO2 Sensor Respiratory Rate 16 15 Respiratory Depth Normal Blood Pressure 136/56 L 132/69 Blood Pressure Mean 82 90 Blood Pressure Position Sitting Pulse Oximetry 98 100 100 Oxygen Delivery Method Room Air Room Air Room Air Sepsis Recent Fever Within 48 Hours No Sepsis New/Unexplained Change in Mental Status No Sepsis Action Taken by Nursing No Action Required 11/24/20 06:32 11/24/20 07:00 11/24/20 07:30 Temperature Temperature Source Pulse Rate 105 H 127 H 108 H Pulse Rate from SpO2 Sensor 112 H 100 H Respiratory Rate 18 10 L 17 Respiratory Depth Blood Pressure 120/68 117/97 120/65 Blood Pressure Mean 85 103 83 Blood Pressure Position Pulse Oximetry 100 100 100 Oxygen Delivery Method Room Air Sepsis Recent Fever Within 48 Hours Sepsis New/Unexplained Change in Mental Status Sepsis Action Taken by Nursing 11/24/20 08:01 11/24/20 08:31 11/24/20 09:00 Temperature Temperature Source Pulse Rate 113 H 102 H 96 H Pulse Rate from SpO2 Sensor 95 H 95 H 102 H Respiratory Rate 16 19 11 L Respiratory Depth Blood Pressure 81/48 L 137/70 140/80 Blood Pressure Mean 59 92 100 Blood Pressure Position Pulse Oximetry 98 97 97 Oxygen Delivery Method Sepsis Recent Fever Within 48 Hours Sepsis New/Unexplained Change in Mental Status Sepsis Action Taken by Nursing 11/24/20 09:30 Temperature Temperature Source Pulse Rate 100 H Pulse Rate from SpO2 Sensor 97 H Respiratory Rate 10 L Respiratory Depth Blood Pressure 133/59 L Blood Pressure Mean 83 Blood Pressure Position Pulse Oximetry 97 Oxygen Delivery Method Sepsis Recent Fever Within 48 Hours Sepsis New/Unexplained Change in Mental Status Sepsis Action Taken by Nursing Laboratory Data Result diagrams: 11/25/20 07:24 11/25/20 07:24 Lab Results 11/24/20 11/24/20 11/24/20 Range/Units 05:36 05:36 05:36 WBC 7.15 (4.8-10.8) K/uL RBC 2.41 L (4.2-5.4) M/uL Hgb 8.0 L (12.0-16.0) g/dL Hct 27.2 L (37-47) % MCV 112.9 H (80-100) fL MCH 33.2 (25-34) pg MCHC 29.4 L (32-36) g/dL RDW Std Deviation 89.1 H (36.4-46.3) fL RDW Coeff of Talia 23.8 H (11.5-14.5) % Plt Count 302 (130-400) K/uL MPV 12.1 H (7.4-10.4) fL Immature Gran % (Auto) 0.4 % Neut % (Auto) 77.3 % Lymph % (Auto) 9.7 % Walker % (Auto) 8.7 % Eos % (Auto) 3.8 % Baso % (Auto) 0.1 % Neut # (Auto) 5.53 (1.4-6.5) K/uL Lymph # (Auto) 0.69 L (1.2-3.4) K/uL Walker # (Auto) 0.62 H (0.11-0.59) K/uL Eos # (Auto) 0.27 (0-0.5) K/uL Baso # (Auto) 0.01 (0-0.2) K/uL Immature Gran # (Auto) 0.03 H (0.00-0.02) K/uL Polychromasia 1+ Macrocytosis Present Ovalocytes 1+ Sodium 140 (136-145) mmol/L Potassium (3.5-5.1) mmol/L Chloride 105 (98-107) mmol/L Carbon Dioxide 29 (21-32) mmol/L Anion Gap 6.0 (3-11) BUN 36 H (7-18) mg/dl Creatinine 1.96 H (0.6-1.2) mg/dl Est Cr Clr Drug Dosing 20.0 ml/min Est GFR ( Amer) 26.7 ml/min Est GFR (Non-Af Amer) 23.1 ml/min BUN/Creatinine Ratio 18.2 (10-20) Glucose 134 H (70-99) mg/dl Calcium 8.3 L (8.5-10.1) mg/dl Total Bilirubin 1.8 H (0.2-1) mg/dl AST (15-37) U/L ALT 39 (12-78) U/L Alkaline Phosphatase 119 H (45-117) U/L Troponin I 0.018 (0-0.045) ng/ml NT-Pro-B Natriuret Pep 9004 H (0-1800) pg/ml Total Protein 6.9 (6.4-8.2) gm/dl Albumin 3.4 (3.4-5.0) gm/dl Globulin 3.5 (2.5-4.0) gm/dl Albumin/Globulin Ratio 1.0 (0.9-2) Urine Color Urine Appearance (Clear) Urine pH (4.5-7.5) Ur Specific [place] (1.000-1.030) Urine Protein (Negative) Urine Glucose (UA) (Negative) Urine Ketones (Negative) Urine Blood (Negative) Urine Nitrite (Negative) Urine Bilirubin (Negative) Urine Urobilinogen (Negative) Ur Leukocyte Esterase (Negative) Urine WBC (Auto) (0-5) /hpf Urine RBC (Auto) (0-4) /hpf U Hyaline Cast (Auto) (0-5) /lpf U Epithel Cells (Auto) (0-5) /lpf Urine Bacteria (Auto) (Negative) COVID-19 Eval Order SARS-CoV-2 (PCR) (Negative) 11/24/20 11/24/20 11/24/20 Range/Units 05:59 06:55 08:33 WBC (4.8-10.8) K/uL RBC (4.2-5.4) M/uL Hgb (12.0-16.0) g/dL Hct (37-47) % MCV (80-100) fL MCH (25-34) pg MCHC (32-36) g/dL RDW Std Deviation (36.4-46.3) fL RDW Coeff of Talia (11.5-14.5) % Plt Count (130-400) K/uL MPV (7.4-10.4) fL Immature Gran % (Auto) % Neut % (Auto) % Lymph % (Auto) % Walker % (Auto) % Eos % (Auto) % Baso % (Auto) % Neut # (Auto) (1.4-6.5) K/uL Lymph # (Auto) (1.2-3.4) K/uL Walker # (Auto) (0.11-0.59) K/uL Eos # (Auto) (0-0.5) K/uL Baso # (Auto) (0-0.2) K/uL Immature Gran # (Auto) (0.00-0.02) K/uL Polychromasia Macrocytosis Ovalocytes Sodium (136-145) mmol/L Potassium 3.9 (3.5-5.1) mmol/L Chloride (98-107) mmol/L Carbon Dioxide (21-32) mmol/L Anion Gap (3-11) BUN (7-18) mg/dl Creatinine (0.6-1.2) mg/dl Est Cr Clr Drug Dosing ml/min Est GFR ( Amer) ml/min Est GFR (Non-Af Amer) ml/min BUN/Creatinine Ratio (10-20) Glucose (70-99) mg/dl Calcium (8.5-10.1) mg/dl Total Bilirubin (0.2-1) mg/dl AST (15-37) U/L ALT (12-78) U/L Alkaline Phosphatase (45-117) U/L Troponin I (0-0.045) ng/ml NT-Pro-B Natriuret Pep (0-1800) pg/ml Total Protein (6.4-8.2) gm/dl Albumin (3.4-5.0) gm/dl Globulin (2.5-4.0) gm/dl Albumin/Globulin Ratio (0.9-2) Urine Color Yellow Urine Appearance Clear (Clear) Urine pH 6.0 (4.5-7.5) Ur Specific [place] 1.013 (1.000-1.030) Urine Protein Negative (Negative) Urine Glucose (UA) Negative (Negative) Urine Ketones Negative (Negative) Urine Blood Negative (Negative) Urine Nitrite Positive A (Negative) Urine Bilirubin Negative (Negative) Urine Urobilinogen Negative (Negative) Ur Leukocyte Esterase Trace H (Negative) Urine WBC (Auto) 5-10 H (0-5) /hpf Urine RBC (Auto) 0-4 (0-4) /hpf U Hyaline Cast (Auto) 1-5 (0-5) /lpf U Epithel Cells (Auto) 5-10 H (0-5) /lpf Urine Bacteria (Auto) 3+ H (Negative) COVID-19 Eval Order Covid19 at [facility] SARS-CoV-2 (PCR) (Negative) 11/24/20 Range/Units 08:33 WBC (4.8-10.8) K/uL RBC (4.2-5.4) M/uL Hgb (12.0-16.0) g/dL Hct (37-47) % MCV (80-100) fL MCH (25-34) pg MCHC (32-36) g/dL RDW Std Deviation (36.4-46.3) fL RDW Coeff of Talia (11.5-14.5) % Plt Count (130-400) K/uL MPV (7.4-10.4) fL Immature Gran % (Auto) % Neut % (Auto) % Lymph % (Auto) % Walker % (Auto) % Eos % (Auto) % Baso % (Auto) % Neut # (Auto) (1.4-6.5) K/uL Lymph # (Auto) (1.2-3.4) K/uL Walker # (Auto) (0.11-0.59) K/uL Eos # (Auto) (0-0.5) K/uL Baso # (Auto) (0-0.2) K/uL Immature Gran # (Auto) (0.00-0.02) K/uL Polychromasia Macrocytosis Ovalocytes Sodium (136-145) mmol/L Potassium (3.5-5.1) mmol/L Chloride (98-107) mmol/L Carbon Dioxide (21-32) mmol/L Anion Gap (3-11) BUN (7-18) mg/dl Creatinine (0.6-1.2) mg/dl Est Cr Clr Drug Dosing ml/min Est GFR ( Amer) ml/min Est GFR (Non-Af Amer) ml/min BUN/Creatinine Ratio (10-20) Glucose (70-99) mg/dl Calcium (8.5-10.1) mg/dl Total Bilirubin (0.2-1) mg/dl AST (15-37) U/L ALT (12-78) U/L Alkaline Phosphatase (45-117) U/L Troponin I (0-0.045) ng/ml NT-Pro-B Natriuret Pep (0-1800) pg/ml Total Protein (6.4-8.2) gm/dl Albumin (3.4-5.0) gm/dl Globulin (2.5-4.0) gm/dl Albumin/Globulin Ratio (0.9-2) Urine Color Urine Appearance (Clear) Urine pH (4.5-7.5) Ur Specific [place] (1.000-1.030) Urine Protein (Negative) Urine Glucose (UA) (Negative) Urine Ketones (Negative) Urine Blood (Negative) Urine Nitrite (Negative) Urine Bilirubin (Negative) Urine Urobilinogen (Negative) Ur Leukocyte Esterase (Negative) Urine WBC (Auto) (0-5) /hpf Urine RBC (Auto) (0-4) /hpf U Hyaline Cast (Auto) (0-5) /lpf U Epithel Cells (Auto) (0-5) /lpf Urine Bacteria (Auto) (Negative) COVID-19 Eval Order SARS-CoV-2 (PCR) NEGATIVE (Negative) Administered Medications Acetaminophen (Acetaminophen 325 Mg Tab) 1,300 mg PO HS RODDY Stop: 12/24/20 20:59 Last Admin: 11/24/20 21:06 Dose: 1,300 mg Documented by: [id number] Acetaminophen (Acetaminophen 325 Mg Tab) 650 mg PO Q4H PRN PRN Reason: Pain or Fever Stop: 12/24/20 10:40 Last Admin: 11/25/20 08:31 Dose: 650 mg Documented by: [id number] Admin: 11/24/20 17:03 Dose: 650 mg Documented by: [id number] Admin: 11/24/20 10:47 Dose: 650 mg Documented by: [id number] Allopurinol (Allopurinol 300 Mg Tab) [facility] [place] Stop: 12/25/20 08:59 Last Admin: 11/25/20 08:32 Dose: 300 mg Documented by: [id number] Apixaban (Apixaban 2.5 Mg Tab) 2.5 mg PO BID [facility] Stop: 12/24/20 20:59 Last Admin: 11/25/20 08:33 Dose: 2.5 mg Documented by: [id number] Admin: 11/24/20 21:08 Dose: 2.5 mg Documented by: [id number] Cephalexin HCl (Cephalexin 250 Mg Cap) 250 mg PO TID [facility]; Protocol Stop: 12/02/20 14:59 Last Admin: 11/25/20 15:30 Dose: 250 mg Documented by: [id number] Clopidogrel Bisulfate (Clopidogrel Bisulfate 75 Mg Tab) 75 mg PO [facility] Stop: 12/25/20 08:59 Last Admin: 11/25/20 08:32 Dose: 75 mg Documented by: [id number] Dextrose (Dextrose 50% 50 Ml Syringe) 25 - 50 ml IV UD PRN; Protocol PRN Reason: Hypoglycemia Protocol Stop: 12/24/20 11:29 Last Admin: 11/25/20 07:41 Dose: 50 ml Documented by: [id number] Duloxetine HCl (Duloxetine Hcl 60 Mg Cap) [facility] [place] Stop: 12/25/20 08:59 Last Admin: 11/25/20 08:33 Dose: 60 mg Documented by: [id number] Furosemide 80 mg/ Syringe 8 mls @ 4 mls/min IV [id number] [facility] Stop: 12/24/20 16:59 Last Admin: 11/25/20 16:53 Dose: 4 mls/min Documented by: [id number] Admin: 11/25/20 08:33 Dose: 4 mls/min Documented by: [id number] Admin: 11/24/20 17:04 Dose: 4 mls/min Documented by: [id number] Insulin Aspart (Insulin Aspart 100 Units/Ml 3 Ml Pen) 0 units SC ACHS [facility]; Protocol Stop: 12/24/20 11:29 Last Admin: 11/25/20 16:52 Dose: 2 units Documented by: [id number] Cosigned by: [id number] Admin: 11/25/20 12:03 Dose: 3 units Documented by: [id number] Cosigned by: [id number] Admin: 11/25/20 08:34 Dose: 3 units Documented by: [id number] Cosigned by: [id number] Admin: 11/24/20 21:09 Dose: Not Given Documented by: [id number] Admin: 11/24/20 17:04 Dose: 7 units Documented by: [id number] Cosigned by: [id number] Admin: 11/24/20 12:12 Dose: 3 units Documented by: [id number] Cosigned by: [id number] Isosorbide Mononitrate (Isosorbide Walker Extended Rel 30 Mg Tabcr) 30 mg PO [facility] Stop: 12/25/20 08:59 Last Admin: 11/25/20 08:35 Dose: 30 mg Documented by: [id number] Levothyroxine Sodium (Levothyroxine Sodium 50 Mcg Tablet) 50 mcg PO DAILYBB [facility] Stop: 12/25/20 06:29 Last Admin: 11/25/20 06:29 Dose: 50 mcg Documented by: [id number] Magnesium Oxide (Magnesium Oxide 400 Mg Tab) 400 mg PO BID [facility] Stop: 12/24/20 20:59 Last Admin: 11/25/20 08:31 Dose: 400 mg Documented by: [id number] Admin: 11/24/20 21:09 Dose: 400 mg Documented by: [id number] Metoprolol Succinate (Metoprolol Succ 50mg Ext Rel Tab) 100 mg PO BID [facility] Stop: 12/24/20 20:59 Last Admin: 11/25/20 08:31 Dose: 100 mg Documented by: [id number] Admin: 11/24/20 21:07 Dose: 100 mg Documented by: [id number] Mirtazapine (Mirtazapine Tab 15 Mg Tab) 15 mg PO QAM [facility] Stop: 12/25/20 08:59 Last Admin: 11/25/20 08:32 Dose: 15 mg Documented by: [id number] Miscellaneous (Clindamycin Phosphate 1 % Gel - Order Awaiting Action) 1 ea N/A QS [facility] Stop: 12/24/20 15:59 Last Admin: 11/25/20 16:12 Dose: Not Given Documented by: [id number] Admin: 11/25/20 08:33 Dose: Not Given Documented by: [id number] Admin: 11/24/20 21:43 Dose: Not Given Documented by: [id number] Admin: 11/24/20 16:07 Dose: Not Given Documented by: [id number] Oxycodone HCl (Oxycodone Hcl Ir 5 Mg Tab (Immediate Release)) 5 mg PO Q4H PRN PRN Reason: Pain Stop: 12/08/20 12:22 Last Admin: 11/25/20 13:53 Dose: 5 mg Documented by: [id number] Admin: 11/25/20 02:39 Dose: 5 mg Documented by: [id number] Admin: 11/24/20 21:05 Dose: 5 mg Documented by: [id number] Admin: 11/24/20 12:50 Dose: 5 mg Documented by: [id number] Pantoprazole Sodium (Pantoprazole 40 Mg Tab) 40 mg PO QAM [facility] Stop: 12/25/20 08:59 Last Admin: 11/25/20 08:31 Dose: 40 mg Documented by: [id number] Potassium Chloride (Potassium Chloride 10 Meq Tabcr) 10 meq PO BID [facility] Stop: 12/24/20 20:59 Last Admin: 11/25/20 08:32 Dose: 10 meq Documented by: [id number] Admin: 11/24/20 21:07 Dose: 10 meq Documented by: [id number] Potassium Chloride (Potassium Chloride Crtab 20 Meq Tabcr) 20 meq PO BID [facility] Stop: 11/25/20 21:01 Last Admin: 11/25/20 10:13 Dose: 20 meq Documented by: [id number] Vitamin D (Cholecalciferol 1,000 Units 25 Mcg Tab) 2,000 units PO QAM [facility] Stop: 12/25/20 08:59 Last Admin: 11/25/20 08:30 Dose: 2,000 units Documented by: [id number] Discontinued Medications Acetaminophen (Acetaminophen 325 Mg Tab) 650 mg PO NOW STA Stop: 11/24/20 05:45 Last Admin: 11/24/20 06:01 Dose: 650 mg Documented by: [id number] Acetaminophen (Acetaminophen 325 Mg Tab) Confirm Administered Dose 650 mg .ROUTE .STK-MED ONE Stop: 11/24/20 10:47 Last Admin: 11/24/20 11:53 Dose: Not Given Documented by: [id number] Fentanyl Citrate (Fentanyl Citrate 100 Mcg/2 Ml Vial) 50 mcg IV NOW STA Stop: 11/24/20 07:59 Last Admin: 11/24/20 08:04 Dose: 50 mcg Documented by: [id number] Furosemide (Furosemide 40 Mg/4 Ml Vial) 80 mg IV NOW STA Stop: 11/24/20 09:32 Last Admin: 11/24/20 09:43 Dose: 80 mg Documented by: [id number] Insulin Glargine (Insulin Glargine Solostar 100 Units/Ml 3 Ml Pen) 30 units SC HS [facility]; Protocol Stop: 12/24/20 20:59 Last Admin: 11/24/20 21:10 Dose: 30 units Documented by: [id number] Cosigned by: [id number] Imaging Data Radiologist's Impression: Chest X-Ray 11/24/20 05:44 XR chest 1V portable CLINICAL HISTORY: Dyspnea COMPARISON STUDY: Chest CT June 26, 2020. Chest radiograph November 07, 2020. FINDINGS: Lung volumes are normal. Lungs are clear. There is no pneumothorax or pleural effusion. Cardiac size is stable. Mediastinal contours are normal. There is no evidence for pulmonary edema. IMPRESSION: No acute cardiopulmonary findings. ACT 112: Negative or not required by law. Electronically signed by: Jeremy Gabriel M.D. 11/24/2020 7:12 AM Discharge Plan Visit Data Chief Complaint: Swelling/Edema to Extremity Stated Complaint: SWELLING OF RIGHT LEG Discharge Problem: Bilateral edema of lower extremity, Chronic CHF Patient Disposition: Admitted As Inpatient Discharge Instructions Interventions: ED Discharge Assessment Last Done: 11/24/20 10:27 Discharge Problem: Chronic CHF Qualifiers: Heart failure type: right-sided Qualified Code(s): I50.812 - Chronic right heart failure
[2020-11-24] MEDS ORDERED: FUROSEMIDE 40 MG/4 ML VIAL IV SCH (17:00)
[2020-11-24] MEDS: FUROSEMIDE 80 MG in SYRINGE 0 ML IV SCH (17:04)
[2020-11-24] MEDS ORDERED: INSULIN GLARGINE SOLOSTAR 100 UNITS/ML 3 ML PEN SC SCH (21:00)
[2020-11-24] MEDS: ACETAMINOPHEN 325 MG TAB PO SCH (21:06)
[2020-11-24] MEDS: POTASSIUM CHLORIDE 10 MEQ TABCR PO SCH (21:07)
[2020-11-24] MEDS: METOPROLOL SUCC 50MG EXT REL TAB PO SCH (21:07)
[2020-11-24] MEDS: APIXABAN 2.5 MG TAB PO SCH (21:08)
[2020-11-24] MEDS: MAGNESIUM OXIDE 400 MG TAB PO SCH (21:09)
[2020-11-25] MEDS: oxyCODONE HCL IR 5 MG TAB (IMMEDIATE RELEASE) PO PRN ×3 (02:39→20:44)
[2020-11-25] MEDS: LEVOTHYROXINE SODIUM 50 MCG TABLET PO SCH (06:29)
[2020-11-25 07:43] LABS: Basophils # (auto) 0.03 K/uL (0-0.2); Basophils % (auto) 0.4 %; Eosinophils # (auto) 0.34 K/uL (0-0.5); Eosinophils % (auto) 4.9 %; Hematocrit (blood only) 28.6 % (37-47); Hemoglobin 8.6 g/dL (12.0-16.0); Immature Granulocytes # (auto) 0.02 K/uL (0.00-0.02); Immature Granulocytes % (auto) 0.3 %; Lymphocytes # (auto) 0.94 K/uL (1.2-3.4); Lymphocytes % (auto) 13.4 %; Mean Corpuscular Hemoglobin 33.2 pg (25-34); Mean Corpuscular Hgb Conc 30.1 g/dL (32-36); Mean Corpuscular Volume 110.4 fL (80-100); Mean Platelet Volume 12.9 fL (7.4-10.4); Monocytes # (auto) 0.92 K/uL (0.11-0.59); Monocytes % (auto) 13.1 %; Neutrophils # (auto) 4.76 K/uL (1.4-6.5); Neutrophils % (auto) 67.9 %; Nucleated RBC # (auto) 0.03 K/uL (0-0); Nucleated RBC % (auto) 0.4 %; Platelet Count 292 K/uL (130-400); Red Blood Count 2.59 M/uL (4.2-5.4); White Blood Count 7.01 K/uL (4.8-10.8)
[2020-11-25 08:04] LABS: BUN Creatinine Ratio 22.7 (10-20); Calcium 8.4 mg/dl (8.5-10.1); Creatinine Clr Calc Pharmacy 19.6 ml/min; Est GFR (African American) 26.7 ml/min; Est GFR (Non-African American) 23.1 ml/min; Potassium 3.4 mmol/L (3.5-5.1)
[2020-11-25 08:11] LABS: Hypochromasia Present; Ovalocytes 1+; Polychromasia 1+
[2020-11-25] MEDS: CHOLECALCIFEROL 1,000 UNITS 25 MCG TAB PO SCH (08:30)
[2020-11-25] MEDS: MAGNESIUM OXIDE 400 MG TAB PO SCH ×2 (08:31→20:57)
[2020-11-25] MEDS: ACETAMINOPHEN 325 MG TAB PO PRN (08:31)
[2020-11-25] MEDS: PANTOprazole 40 MG TAB PO SCH (08:31)
[2020-11-25] MEDS: METOPROLOL SUCC 50MG EXT REL TAB PO SCH ×2 (08:31→20:56)
[2020-11-25] MEDS: MIRTAZAPINE TAB 15 MG TAB PO SCH (08:32)
[2020-11-25] MEDS: CLOPIDOGREL BISULFATE 75 MG TAB PO SCH (08:32)
[2020-11-25] MEDS: POTASSIUM CHLORIDE 10 MEQ TABCR PO SCH ×2 (08:32→20:58)
[2020-11-25] MEDS: allopurinoL 300 MG TAB PO SCH (08:32)
[2020-11-25] MEDS: APIXABAN 2.5 MG TAB PO SCH ×2 (08:33→20:56)
[2020-11-25] MEDS: DULoxetine HCL 60 MG CAP PO SCH (08:33)
[2020-11-25] MEDS: FUROSEMIDE 80 MG in SYRINGE 0 ML IV SCH ×2 (08:33→16:53)
[2020-11-25] MEDS: INSULIN ASPART 100 UNITS/ML 3 ML PEN SC SCH ×4 (08:34→20:59)
[2020-11-25] MEDS: ISOSORBIDE MONO EXTENDED REL 30 MG TABCR PO SCH (08:35)
[2020-11-25] MEDS: POTASSIUM CHLORIDE CRTAB 20 MEQ TABCR PO SCH ×2 (10:13→20:55)
--- NOTE | 2020-11-25 11:15 | Pharmacy Report ---
Pharmacy Glycemic Short Note 2 - Date of Service November 25, 2020 - Glycemic Short BSG Results (Last 24 hours): 11/24/20 11/24/20 11/24/20 11:50 16:47 21:02 Glucose POC Glucose 115 H 116 H 120 H 11/25/20 11/25/20 11/25/20 07:24 07:35 07:36 Glucose 39 L* POC Glucose 49 L* 48 L* 11/25/20 08:06 Glucose POC Glucose 178 H OUTPATIENT ANTIDIABETIC REGIMEN: * Lantus 30 units HS * Novolog 7-10 units TID with meals * A1c 5.2% 10/04/20 ASSESSMENT: 11/25 * Pt has received 40 units of insulin over the past 24hrs * 30 units of basal with Lantus * 10 units of bolus with NovoLog * BSGs [id number]/78 mg/dl * Pt with LOW BSG this AM - likely too much basal insulin on board. Outpatient dose of Lantus continued last night at 30 units. A1c is quite low at 5.2% so likely patient experiences hypo with this dosing as an outpatient as well. CHO intake can be less inpatient as compared to outpatient so dose decrease warranted. 11/24 * 85 year old female admitted for worsening of leg swelling, type 2 DM, well controlled (unless having hypoglycemia at home?) * Will use basal bolus insulin similar to home doses as inpatient and titrate to goal blood sugar PLAN FOR INPATIENT GLYCEMIC CONTROL: * Basal insulin * decrease Lantus from 30 to 25 units SQ HS * Bolus insulin: no change * NovoLog per scale ACHS or Q6hrs while NPO * Goal Range: Low 110 mg/dL - High 140 mg/dL * Correction Factor: 25 mg/dL/unit * Nutritional / Prandial insulin per carb ratio of 1 unit per 9 grams CHO consumed PLAN FOR DISCHARGE: * A1c 5.2%, continue home regimen, unless experiencing hypoglycemia.
[2020-11-25] MEDS ORDERED: PERMETHRIN 5% CR 60 GM TUBE EXT ONE (14:00)
[2020-11-25] MEDS: cephALEXin 250 MG CAP PO SCH ×2 (15:30→20:58)
[2020-11-25] MEDS: DOXYCYCLINE HYCLATE 100 MG CAP PO SCH (18:31)
--- NOTE | 2020-11-25 19:05 | Hospitalist Progress Note ---
Date of Service November 25, 2020 Assessment & Plan (1) Acute on chronic heart failure with preserved ejection fraction: Plan: Usual dose Lasix total 120mg PO daily. Will treat with 80mg IV BID here and monitor response of BNP, Cr and leg swelling. Mainly right sided heart failure with severe pulmonary hypertension on prior Echocardiogram which explains her lack of pulmonary edema. Strict I&Os - negative 580ml Daily weight Low Na, Fluid restricted diet 1500ml BUN increasing therefore may just be venous insufficiency in setting of cellulitis and venous insufficiency however edema has somewhat improved overnight with diuretics therefore will keep them going for now. (2) Cellulitis: Plan: Right lower extremity. Since she is not septic will treat with oral antibiotics Doxycycline (prior history of MRSA infections) + Keflex Consult wound care nurse (3) Bilateral edema of lower extremity: Plan: Suspect combination of CHF, cellulitis, venous insufficiency as above. (4) H/O scabies: Plan: No active mites seen. Recently cleared by dermatology last week in addition. Triamcinolone cream on leg BID on non open areas (recently prescribed by her harpooner but missed on home med list) (5) Venous insufficiency of both lower extremities: Plan: see above. (6) Asymptomatic bacteriuria: Plan: Appears to be colonized with E. coli. No symptoms to suggest acute UTI at this time. (7) Diabetes mellitus with renal complications: Plan: HbA1C 5.2. May be inaccurate given diagnosis of hemolytic anemia Consult pharmacy for glycemic control while here, T2DM diet - discussed reducing Lantus to 20 units HS to avoid hypoglycemia this morning. Consider reduction on discharge. 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 ?contributing towards right heart failure Albuterol PRN for shortness of breath. (14) GERD (gastroesophageal reflux disease): Plan: Continue pantoprazole 40mg PO daily (15) CAD (coronary artery disease): Plan: Continue clopidogrel, Eliquis, Metoprolol succinate,. Unknown why she is not on statin. Admission and Anticipated Discharge Date Admission Date: November 24, 2020 Subjective Main complaint is intense itching of lower extremities. No shortness of breath or chest pain. Pain mostly from itching. Leg swelling improved. Revisited history with her son at bedside. Scabies diagnosed 10/19 treated with ivermectin. Retreated with permethrin. Cleared by dermatology sometime last week. On review of outside pharmacy prescriptions she was prescribed triamcinolone cream by [facility] dermatology which I suspect is the cream she talks about helping with her itching. Son worried about MRSA infection of her lower extremities as she has had this before in the past. Review of Systems Review of Systems: All systems reviewed & are unremarkable except as noted in HPI & below Physical Exam Constitutional: WD/WN, vitals as above Respiratory: normal respiratory effort, lungs clear to auscultation Cardiovascular: Rate/Rhythm: regular rate and + irregularly irregular Heart Sounds: no murmur Vessels: + JVD Extremities: normal capillary refill, + calf tenderness (b/l equal) and + pedal edema (3+ equal b/l pitting edema to mid thighs) Gastrointestinal (Abdomen): Inspection/Auscultation: normal bowel sounds; abdomen not distended Percussion/Palpation: abdomen soft; abdomen nontender Musculoskeletal: no cyanosis or clubbing, extremities motor strength 5/5 Skin: 10cm length band erythema surrounding scabs on RLE. Does not extend beyond ankle. x3 1mm pustules. Multiple scabbed areas at various stages of healing. No mites or burrows seen. Neurologic: moves all extremities and awake; not confused Psychiatric: A+Ox3, euthymic affect Results & Data Results & [facility] ([facility]) Vital Signs (Past 12 Hours) Vital Signs Temp Pulse Resp BP BP Pulse Ox 11/25/20 18:39 36.5 C 106 H 20 131/99 98 11/25/20 15:28 36.4 C L 104 H 18 136/76 93 11/25/20 11:32 36.6 C 100 H 20 106/66 92 11/25/20 07:56 36.4 C L 84 20 140/81 94 PG Care Time/CCT Total # of Minutes Spent Total Time Spent with Patient: Total time spent is greater than 50% in coordination of care (as documented) at patient's floor/unit and/or counseling patient: Coding Level of Care Code 72305 Subseq Obs Care Lvl 3 Diagnoses Acute on chronic heart failure with preserved ejection fraction I50.33 Venous insufficiency of both lower extremities I87.2 Diabetes mellitus with renal complications E11.29 Anemia D64.9 Anemia type: unspecified type Obstructive sleep apnea G47.33 Atrial fibrillation I48.91 Atrial fibrillation type: unspecified Chronic kidney disease (CKD) N18.9 Hypothyroidism E03.9 Hypothyroidism type: unspecified COPD (chronic obstructive pulmonary disease) J44.9 GERD (gastroesophageal reflux disease) K21.9 Esophagitis presence: esophagitis presence not specified CAD (coronary artery disease) I25.10 Bilateral edema of lower extremity R60.0 Cellulitis L03.90 H/O scabies Z86.19 Asymptomatic bacteriuria R82.71 (1) Anemia Anemia type: unspecified type Qualified Code(s): D64.9 - Anemia, unspecified (2) Atrial fibrillation Atrial fibrillation type: unspecified Qualified Code(s): I48.91 - Unspecified atrial fibrillation (3) Hypothyroidism Hypothyroidism type: unspecified Qualified Code(s): E03.9 - Hypothyroidism, unspecified (4) GERD (gastroesophageal reflux disease) Esophagitis presence: esophagitis presence not specified Qualified Code(s): K21.9 - Gastro-esophageal reflux disease without esophagitis
[2020-11-25] MEDS: ACETAMINOPHEN 325 MG TAB PO SCH (20:45)
[2020-11-25] MEDS ORDERED: INSULIN GLARGINE SOLOSTAR 100 UNITS/ML 3 ML PEN SC SCH ×2 (21:00)
[2020-11-25] MEDS: TRIAMCINOLONE ACET 0.1% CR 80 GM TUBE EXT SCH (21:02)
[2020-11-26] MEDS: LEVOTHYROXINE SODIUM 50 MCG TABLET PO SCH (05:18)
[2020-11-26] MEDS: oxyCODONE HCL IR 5 MG TAB (IMMEDIATE RELEASE) PO PRN (05:18)
[2020-11-26] MEDS: DOXYCYCLINE HYCLATE 100 MG CAP PO SCH ×2 (06:34→20:09)
[2020-11-26] MEDS: FUROSEMIDE 80 MG in SYRINGE 0 ML IV SCH ×2 (08:33→17:06)
[2020-11-26] MEDS: METOPROLOL SUCC 50MG EXT REL TAB PO SCH ×2 (08:33→20:08)
[2020-11-26] MEDS: PANTOprazole 40 MG TAB PO SCH (08:33)
[2020-11-26] MEDS: CHOLECALCIFEROL 1,000 UNITS 25 MCG TAB PO SCH (08:33)
[2020-11-26] MEDS: CLOPIDOGREL BISULFATE 75 MG TAB PO SCH (08:33)
[2020-11-26] MEDS: MIRTAZAPINE TAB 15 MG TAB PO SCH (08:33)
[2020-11-26 08:34] LABS: Hematocrit (blood only) 27.8 % (37-47); Hemoglobin 8.1 g/dL (12.0-16.0); Mean Corpuscular Hemoglobin 33.3 pg (25-34); Mean Corpuscular Hgb Conc 29.1 g/dL (32-36); Mean Corpuscular Volume 114.4 fL (80-100); Mean Platelet Volume 11.9 fL (7.4-10.4); Nucleated RBC # (auto) 0.05 K/uL (0-0); Nucleated RBC % (auto) 0.8 %; Platelet Count 264 K/uL (130-400); RDW Coefficient of Variation 23.8 % (11.5-14.5); RDW Standard Deviation 93.1 fL (36.4-46.3); Red Blood Count 2.43 M/uL (4.2-5.4); White Blood Count 6.18 K/uL (4.8-10.8)
[2020-11-26] MEDS: ISOSORBIDE MONO EXTENDED REL 30 MG TABCR PO SCH (08:34)
[2020-11-26] MEDS: cephALEXin 250 MG CAP PO SCH ×3 (08:34→20:09)
[2020-11-26] MEDS: allopurinoL 300 MG TAB PO SCH (08:34)
[2020-11-26] MEDS: DULoxetine HCL 60 MG CAP PO SCH (08:34)
[2020-11-26] MEDS: MAGNESIUM OXIDE 400 MG TAB PO SCH ×2 (08:34→20:08)
[2020-11-26] MEDS: POTASSIUM CHLORIDE 10 MEQ TABCR PO SCH ×2 (08:34→20:08)
[2020-11-26] MEDS: APIXABAN 2.5 MG TAB PO SCH ×2 (08:34→21:42)
[2020-11-26] MEDS: TRIAMCINOLONE ACET 0.1% CR 80 GM TUBE EXT SCH ×2 (08:35→20:11)
[2020-11-26] MEDS: INSULIN ASPART 100 UNITS/ML 3 ML PEN SC SCH ×4 (08:35→20:14)
[2020-11-26 08:51] LABS: Anisocytosis Present; Basophils # (auto) 0.01 K/uL (0-0.2); Basophils % (auto) 0.2 %; Eosinophils # (auto) 0.25 K/uL (0-0.5); Immature Granulocytes # (auto) 0.02 K/uL (0.00-0.02); Immature Granulocytes % (auto) 0.3 %; Lymphocytes # (auto) 0.74 K/uL (1.2-3.4); Macrocytosis Present; Monocytes # (auto) 0.49 K/uL (0.11-0.59); Monocytes % (auto) 7.9 %; Neutrophils # (auto) 4.67 K/uL (1.4-6.5); Neutrophils % (auto) 75.6 %; Ovalocytes 2+; Polychromasia 1+
[2020-11-26 09:02] LABS: BUN Creatinine Ratio 22.9 (10-20); Calcium 8.3 mg/dl (8.5-10.1); Creatinine Clr Calc Pharmacy 20.2 ml/min; Est GFR (African American) 28.1 ml/min; Est GFR (Non-African American) 24.3 ml/min; Potassium 3.8 mmol/L (3.5-5.1)
[2020-11-26] MEDS: ACETAMINOPHEN 325 MG TAB PO PRN (09:28)
--- NOTE | 2020-11-26 10:23 | Pharmacy Report ---
Pharmacy Glycemic Short Note 2 - Date of Service November 26, 2020 - Glycemic Short BSG Results (Last 24 hours): 11/25/20 11/25/20 11/25/20 11:23 16:31 20:48 Glucose POC Glucose 114 H 84 163 H 11/26/20 11/26/20 07:59 08:09 Glucose 79 POC Glucose 76 OUTPATIENT ANTIDIABETIC REGIMEN: * Lantus 30 units HS * Novolog 7-10 units TID with meals * A1c 5.2% 10/04/20 ASSESSMENT: 11/26 * BSGs yesterday of 48, 178, 84, and 163 mg/dL * Received 29 units of insulin (20 units of which was basal) * Fasting BSG of 76 mg/dL this morning * reduced Lantus dose given yesterday evening, will utilize scale this evening * Continues on cephalexin/doxycycline for cellulitis 11/25 * Pt has received 40 units of insulin over the past 24hrs * 30 units of basal with Lantus * 10 units of bolus with NovoLog * BSGs [id number]/78 mg/dl * Pt with LOW BSG this AM - likely too much basal insulin on board. Outpatient dose of Lantus continued last night at 30 units. A1c is quite low at 5.2% so likely patient experiences hypo with this dosing as an outpatient as well. CHO intake can be less inpatient as compared to outpatient so dose decrease warranted. 11/24 * 85 year old female admitted for worsening of leg swelling, type 2 DM, well controlled (unless having hypoglycemia at home?) * Will use basal bolus insulin similar to home doses as inpatient and titrate to goal blood sugar PLAN FOR INPATIENT GLYCEMIC CONTROL: * Basal insulin * Lantus scale to provide 15-20 units SC HS (see EHR for details) * Bolus insulin: no change * NovoLog per scale ACHS or Q6hrs while NPO * Goal Range: Low 110 mg/dL - High 140 mg/dL * Correction Factor: 25 mg/dL/unit * Nutritional / Prandial insulin per carb ratio of 1 unit per 9 grams CHO consumed PLAN FOR DISCHARGE: * HbA1c of 5.2% suggests excellent outpatient glycemic control * Given that a reasonable goal for this patient would be HbA1c less than 7 or 8%, seems reasonable to loosen outpatient regimen to reduce risk of hypoglycemia * Will follow inpatient insulin needs and make recs accordingly
--- NOTE | 2020-11-26 12:33 | Hospitalist Progress Note ---
Date of Service November 26, 2020 Assessment & Plan (1) Acute on chronic heart failure with preserved ejection fraction: Plan: Improving, lower extremity edema is down, she is -5 kg of body weight although I's and O's reflect -728 elevators Usual dose Lasix total 120mg PO daily. Will treat with 80mg IV BID here and monitor response of BNP, Cr and leg swelling. Mainly right sided heart failure with severe pulmonary hypertension on prior Echocardiogram which explains her lack of pulmonary edema. Strict I&Os Daily weight Low Na, Fluid restricted diet 1500ml Follow BUN/creatinine-improved today (2) Cellulitis: Plan: Right lower extremity and some mild in the left lower extremity. Since she is not septic will treat with oral antibiotics-improved as per patient Continue doxycycline (prior history of MRSA infections) + Keflex Consult wound care nurse (3) Bilateral edema of lower extremity: Plan: Suspect combination of CHF, cellulitis, venous insufficiency as above. (4) H/O scabies: Plan: No active mites seen. Recently cleared by dermatology last week in addition. 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 (6) Asymptomatic bacteriuria: Plan: Appears to be colonized with E. coli. No symptoms to suggest acute UTI at this time. (7) Diabetes mellitus with renal complications: Plan: HbA1C 5.2. May be inaccurate given diagnosis of hemolytic anemia Consult pharmacy for glycemic control while here, T2DM diet - discussed reducing Lantus to 20 units HS to avoid hypoglycemia this morning. Consider reduction on discharge. 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 ?contributing towards right heart failure Albuterol PRN for shortness of breath. (14) GERD (gastroesophageal reflux disease): Plan: Continue pantoprazole 40mg PO daily (15) CAD (coronary artery disease): Plan: No acute issues Continue clopidogrel, Eliquis, Metoprolol succinate, isosorbide Unknown why she is not on statin. Plan: DVT prophylaxis-Eliquis Disposition-continued stay, admit as inpatient PT/OT consults pending Admission and Anticipated Discharge Date Admission Date: November 24, 2020 Subjective Patient feels improved, leg swelling is down and feels the redness in her legs is also improving. She is awaiting wound care nurse consultation. Still has itching of the legs. Denies chest pain or shortness of breath. Telemetry with atrial fibrillation with rates in the 90s to 130s at times. Review of Systems Review of Systems: All systems reviewed & are unremarkable except as noted in HPI & below Physical Exam Constitutional: WD/WN, vitals as above Eyes: + anicteric sclerae Neck: trachea midline, no thyromegaly Respiratory: normal respiratory effort, lungs clear to auscultation Cardiovascular: Rate/Rhythm: regular rate and + irregularly irregular Heart Sounds: no murmur Extremities: + edema (1+ pitting edema to the mid tibia bilaterally) Chest (Breasts): Chest: normal inspection of chest Gastrointestinal (Abdomen): normal bowel sounds, soft, nontender, no hepatosplenomegaly Musculoskeletal: Extremities: extremities normal to inspection; no cyanosis and no clubbing Skin: + rash (Multiple small scabs right greater than left legs) and + erythema (Erythema surrounding scabs on anterior legs regarding left) Neurologic: moves all extremities and awake; no focal motor deficits Psychiatric: A+Ox3, euthymic affect Lymphatic: no lymphedema Results & Data Results & Data ([facility]) Vital Signs (Past 12 Hours) Vital Signs Temp Pulse Resp BP Pulse Ox 11/26/20 12:03 36.5 C 90 18 144/85 H 97 11/26/20 07:47 36.9 C 86 18 127/81 96 11/26/20 04:00 36.4 C L 101 H 18 124/65 99 Laboratory Results 11/26/20 11/26/20 11/26/20 Range/Units 11:37 08:09 08:09 WBC 6.18 (4.8-10.8) K/uL RBC 2.43 L (4.2-5.4) M/uL Hgb 8.1 L (12.0-16.0) g/dL Hct 27.8 L (37-47) % MCV 114.4 H (80-100) fL MCH 33.3 (25-34) pg MCHC 29.1 L (32-36) g/dL RDW Std Deviation 93.1 H (36.4-46.3) fL RDW Coeff of Talia 23.8 H (11.5-14.5) % Plt Count 264 (130-400) K/uL MPV 11.9 H (7.4-10.4) fL Immature Gran % (Auto) 0.3 % Neut % (Auto) 75.6 % Lymph % (Auto) 12.0 % [place] % (Auto) 7.9 % Eos % (Auto) 4.0 % Baso % (Auto) 0.2 % Neut # (Auto) 4.67 (1.4-6.5) K/uL Lymph # (Auto) 0.74 L (1.2-3.4) K/uL [place] # (Auto) 0.49 (0.11-0.59) K/uL Eos # (Auto) 0.25 (0-0.5) K/uL Baso # (Auto) 0.01 (0-0.2) K/uL Immature Gran # (Auto) 0.02 (0.00-0.02) K/uL Absolute Nucleated RBC 0.05 H (0-0) K/uL Nucleated RBC % (auto) 0.8 % Polychromasia 1+ Anisocytosis Present Macrocytosis Present Ovalocytes 2+ Sodium 144 (136-145) mmol/L Potassium 3.8 (3.5-5.1) mmol/L Chloride 104 (98-107) mmol/L Carbon Dioxide 33 H (21-32) mmol/L Anion Gap 7.0 (3-11) BUN 43 H (7-18) mg/dl Creatinine 1.88 H (0.6-1.2) mg/dl Est Cr Clr Drug Dosing 20.2 ml/min Est GFR ( Amer) 28.1 ml/min Est GFR (Non-Af Amer) 24.3 ml/min BUN/Creatinine Ratio 22.9 H (10-20) Glucose 79 (70-99) mg/dl POC Glucose 148 H (70-99) mg/dl Calcium 8.3 L (8.5-10.1) mg/dl 11/26/20 11/25/20 11/25/20 Range/Units 07:59 20:48 16:31 WBC (4.8-10.8) K/uL RBC (4.2-5.4) M/uL Hgb (12.0-16.0) g/dL Hct (37-47) % MCV (80-100) fL MCH (25-34) pg MCHC (32-36) g/dL RDW Std Deviation (36.4-46.3) fL RDW Coeff of Talia (11.5-14.5) % Plt Count (130-400) K/uL MPV (7.4-10.4) fL Immature Gran % (Auto) % Neut % (Auto) % Lymph % (Auto) % [place] % (Auto) % Eos % (Auto) % Baso % (Auto) % Neut # (Auto) (1.4-6.5) K/uL Lymph # (Auto) (1.2-3.4) K/uL [place] # (Auto) (0.11-0.59) K/uL Eos # (Auto) (0-0.5) K/uL Baso # (Auto) (0-0.2) K/uL Immature Gran # (Auto) (0.00-0.02) K/uL Absolute Nucleated RBC (0-0) K/uL Nucleated RBC % (auto) % Polychromasia Anisocytosis Macrocytosis Ovalocytes Sodium (136-145) mmol/L Potassium (3.5-5.1) mmol/L Chloride (98-107) mmol/L Carbon Dioxide (21-32) mmol/L Anion Gap (3-11) BUN (7-18) mg/dl Creatinine (0.6-1.2) mg/dl Est Cr Clr Drug Dosing ml/min Est GFR ( Amer) ml/min Est GFR (Non-Af Amer) ml/min BUN/Creatinine Ratio (10-20) Glucose (70-99) mg/dl POC Glucose 76 163 H 84 (70-99) mg/dl Calcium (8.5-10.1) mg/dl PG Care Time/CCT Total # of Minutes Spent Total Time Spent with Patient: Total time spent is greater than 50% in coordination of care (as documented) at patient's floor/unit and/or counseling patient: Coding Level of Care Code 41413 Subseq Hosp Care Lvl 2 Diagnoses Acute on chronic heart failure with preserved ejection fraction I50.33 Cellulitis L03.90 Bilateral edema of lower extremity R60.0 H/O scabies Z86.19 Venous insufficiency of both lower extremities I87.2 Asymptomatic bacteriuria R82.71 Diabetes mellitus with renal complications E11.29 Anemia D64.9 Anemia type: unspecified type Obstructive sleep apnea G47.33 Atrial fibrillation I48.91 Atrial fibrillation type: unspecified Chronic kidney disease (CKD) N18.9 Hypothyroidism E03.9 Hypothyroidism type: unspecified COPD (chronic obstructive pulmonary disease) J44.9 GERD (gastroesophageal reflux disease) K21.9 Esophagitis presence: esophagitis presence not specified CAD (coronary artery disease) I25.10 (1) Anemia Anemia type: unspecified type Qualified Code(s): D64.9 - Anemia, unspecified (2) Atrial fibrillation Atrial fibrillation type: unspecified Qualified Code(s): I48.91 - Unspecified atrial fibrillation (3) Hypothyroidism Hypothyroidism type: unspecified Qualified Code(s): E03.9 - Hypothyroidism, unspecified (4) GERD (gastroesophageal reflux disease) Esophagitis presence: esophagitis presence not specified Qualified Code(s): K21.9 - Gastro-esophageal reflux disease without esophagitis
--- NOTE | 2020-11-26 16:02 | Electrocardiogram Report ---
Test Reason : Blood Pressure : / mmHG Vent. Rate : 110 BPM Atrial Rate : 111 BPM P-R Int : 000 ms QRS Dur : 072 ms QT Int : 366 ms P-R-T Axes : 000 015 148 degrees QTc Int : 495 ms Atrial fibrillation with rapid ventricular response Low voltage QRS Nonspecific T wave abnormality Abnormal ECG When compared with ECG of 07-NOV-2020 09:20, No significant change was found Confirmed by Adrien Arechiga ([id number]) on 11/26/2020 4:01:47 PM Referred By: REFERRED SELF Confirmed By:Adrien Arechiga
[2020-11-26] MEDS: ACETAMINOPHEN 325 MG TAB PO SCH (20:09)
[2020-11-26] MEDS ORDERED: INSULIN GLARGINE SOLOSTAR 100 UNITS/ML 3 ML PEN SC SCH (21:00)
[2020-11-27] MEDS: oxyCODONE HCL IR 5 MG TAB (IMMEDIATE RELEASE) PO PRN (03:38)
[2020-11-27] MEDS: ACETAMINOPHEN 325 MG TAB PO PRN ×2 (03:39→08:55)
[2020-11-27] MEDS: LEVOTHYROXINE SODIUM 50 MCG TABLET PO SCH (06:39)
[2020-11-27] MEDS: APIXABAN 2.5 MG TAB PO SCH (08:43)
[2020-11-27] MEDS: FUROSEMIDE 80 MG in SYRINGE 0 ML IV SCH (08:43)
[2020-11-27] MEDS: METOPROLOL SUCC 50MG EXT REL TAB PO SCH (08:44)
[2020-11-27] MEDS: CHOLECALCIFEROL 1,000 UNITS 25 MCG TAB PO SCH (08:44)
[2020-11-27] MEDS: MIRTAZAPINE TAB 15 MG TAB PO SCH (08:44)
[2020-11-27] MEDS: POTASSIUM CHLORIDE 10 MEQ TABCR PO SCH (08:44)
[2020-11-27] MEDS: ISOSORBIDE MONO EXTENDED REL 30 MG TABCR PO SCH (08:44)
[2020-11-27] MEDS: DULoxetine HCL 60 MG CAP PO SCH (08:44)
[2020-11-27] MEDS: CLOPIDOGREL BISULFATE 75 MG TAB PO SCH (08:44)
[2020-11-27] MEDS: PANTOprazole 40 MG TAB PO SCH (08:44)
[2020-11-27] MEDS: DOXYCYCLINE HYCLATE 100 MG CAP PO SCH (08:45)
[2020-11-27] MEDS: allopurinoL 300 MG TAB PO SCH (08:45)
[2020-11-27] MEDS: cephALEXin 250 MG CAP PO SCH ×2 (08:45→14:12)
[2020-11-27] MEDS: INSULIN ASPART 100 UNITS/ML 3 ML PEN SC SCH ×2 (08:46→12:25)
[2020-11-27] MEDS: MAGNESIUM OXIDE 400 MG TAB PO SCH (08:47)
[2020-11-27] MEDS: TRIAMCINOLONE ACET 0.1% CR 80 GM TUBE EXT SCH (08:47)
[2020-11-27 09:37] LABS: BUN Creatinine Ratio 22.5 (10-20); Calcium 8.6 mg/dl (8.5-10.1); Creatinine Clr Calc Pharmacy 18.1 ml/min; Est GFR (African American) 24.9 ml/min; Est GFR (Non-African American) 21.5 ml/min; Magnesium 2.3 mg/dl (1.8-2.4); Potassium 3.5 mmol/L (3.5-5.1)
[2020-11-27 09:40] LABS: Hematocrit (blood only) 27.1 % (37-47); Mean Corpuscular Hemoglobin 33.3 pg (25-34); Mean Corpuscular Hgb Conc 29.5 g/dL (32-36); Mean Corpuscular Volume 112.9 fL (80-100); Mean Platelet Volume 12.4 fL (7.4-10.4); Platelet Count 261 K/uL (130-400); RDW Coefficient of Variation 24.1 % (11.5-14.5); White Blood Count 5.27 K/uL (4.8-10.8)
[2020-11-27 09:48] LABS: Anisocytosis Present; Basophils # (auto) 0.01 K/uL (0-0.2); Basophils % (auto) 0.2 %; Eosinophils # (auto) 0.29 K/uL (0-0.5); Eosinophils % (auto) 5.5 %; Immature Granulocytes # (auto) 0.01 K/uL (0.00-0.02); Immature Granulocytes % (auto) 0.2 %; Lymphocytes # (auto) 0.77 K/uL (1.2-3.4); Lymphocytes % (auto) 14.6 %; Monocytes % (auto) 9.5 %; Neutrophils # (auto) 3.69 K/uL (1.4-6.5); Ovalocytes 1+; Schistocytes 1+
--- NOTE | 2020-11-27 11:42 | Discharge Summary ---
Date of Service November 27, 2020 Admission HPI Per Admitting Provider Tiffanie Porter is an 85 year old female with known severe pulmonary hypertension who presents to the ER with leg swelling. She reports this has been getting worse for the last 3-4 days. She has been complaint with her medications and daily weights. She follows with the [facility] heart [place] [facility]. Usually takes 80mg Lasix QAM and 40mg QPM; she has not increased this with her current leg swelling. She reports weighing herself every morning and weight stable around 262 lb. No shortness of breath, chest pain, orthopnea (although gets nauseous on lying flat), paroxysmal nocturnal dyspnea or palpations. No fever or chills. Started to notice some weeping from her legs today and the pain from the swelling prompted her to come to the ER. Principal Diagnosis Acute on chronic diastolic CHF, Leg cellulitis Discharge Exam Constitutional WD/WN, vitals as above Eyes + anicteric sclerae Neck trachea midline, no thyromegaly Respiratory normal respiratory effort, lungs clear to auscultation Cardiovascular Rate/Rhythm: regular rate and + irregularly irregular Heart Sounds: no murmur Extremities: + edema (1+ pitting edema to the mid tibia bilaterally) Chest (Breasts) Chest: normal inspection of chest Gastrointestinal (Abdomen) normal bowel sounds, soft, nontender, no hepatosplenomegaly Musculoskeletal Extremities: extremities normal to inspection; no cyanosis and no clubbing Skin no rashes, warm and dry + rash (Multiple small scabs right greater than left legs) and + erythema (Erythema surrounding scabs on anterior legs regarding left) Neurologic moves all extremities and awake; no focal motor deficits Psychiatric A+Ox3, euthymic affect Lymphatic no lymphedema Discharge Data Allergies Allergy/AdvReac Type Severity Reaction Status Date / Time shellfish derived Allergy Severe ANAPHYLAXIS Verified 11/24/20 09:09 iodine Allergy Intermediate ANAPHYLAXIS Verified 11/24/20 09:09 lisinopril Allergy Unknown Unknown Verified 11/24/20 09:09 oxybutynin [From Ditropan] Allergy Unknown Unknown Verified 11/24/20 09:09 sertraline [From Zoloft] Allergy Unknown Unknown Verified 11/24/20 09:09 paroxetine AdvReac Mild GI UPSET Verified 11/24/20 09:09 Consultations 11/24/20 08:40 ED Decision to Admit Stat Hospital Course (1) Acute on chronic heart failure with preserved ejection fraction: Improving, lower extremity edema is significantly improved, she is -6 kg of body weight Usual dose Lasix80/40mg. 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 Daily weights at home Low Na+ diet, Fluid restricted 1800mL on discharge Follow BMP as outpt (2) Cellulitis: Right lower extremity and some mild in the left lower extremity. Since she is not septic will treat with oral antibiotics-improved as per patient Continue doxycycline (prior history of MRSA infections) + Keflex x 7 more days after discharge Consult wound care nurse appreciated (3) Bilateral edema of lower extremity: Suspect combination of CHF, cellulitis, venous insufficiency as above. (4) H/O scabies: No active mites seen. Recently cleared by dermatology last week in addition. Triamcinolone cream on leg BID on non open areas (recently prescribed by her solutions sales executive but missed on home med list) (5) Venous insufficiency of both lower extremities: see above. (6) Asymptomatic bacteriuria: Appears to be colonized with E. coli. No symptoms to suggest acute UTI at this time. (7) Diabetes mellitus with renal complications: HbA1C 5.2. May be inaccurate given diagnosis of hemolytic anemia Consult pharmacy for glycemic control while here, T2DM diet - discussed reducing Lantus to 20 units HS to avoid hypoglycemia Will continue this reduction on discharge. 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 ?contributing towards right heart failure Albuterol PRN for shortness of breath. (14) GERD (gastroesophageal reflux disease): Continue pantoprazole 40mg PO daily (15) CAD (coronary artery disease): No acute issues Continue clopidogrel, Eliquis, Metoprolol succinate, isosorbide Unknown why she is not on statin. DVT prophylaxis-Eliquis Disposition-dc to home with home health Total Time Total Time Spent Total Time Spent (In Minutes): 35 min Discharge Plan Discharge Items Patient Disposition: Home - Home Health Services Reason For Visit: ACUTE ON CHRONIC DIASTOLIC CHF Discharge Diagnosis: Acute on chronic diastolic CHF, Leg cellulitis Condition on Discharge: Good Activity: Resume your previous activity Non-emergency contact: Primary Care Provider and Beauty Culture Teacher Call non-emergency contact if: you have any medication questions, your symptoms worsen, you have a fever and your wound has increased redness Follow-up/Referrals: Domi Wetzel DO [Primary Care Provider] - (Follow up within 1-2 weeks.) Madelaine Rothman PA-C [Physician Chute Loader] - 12/03/20 10:30 am (Congestive Heart Failure Program Appointment Information Early follow up is essential to managing your heart failure. An appointment has been scheduled for you with the [facility] within 7 days of discharge. Anticipate this visit to be 30-60 minutes long. Please expect a stitcher operator phone call from one of our nurses approximately 48 hours from discharge. They will also be placing an order for lab work to be completed 1-2 days prior to your heart failure follow up appointment. Please be sure to have this done so we can go over the results when you come in. Office Location The cardiology office building is located in front of the hospital at [address] [facility]. Bring the following with you to your follow-up doctor appointments: Please bring your daily weight log any discharge paperwork all of your medication bottles with you to this visit. ) Diet: Carb Consistent or DM2, Heart Healthy and Low Sodium (2gm) Fluids: 1800ml (7 cups) Addtl Attending Provider Instructions: You were admitted for congestive heart failure and swollen legs. You were given lasix through the IV and had improvement. You were also treated for a skin infection of the legs called cellulitis. Please continue on the two antibiotics for this for one more week. Your lasix dose was increased to 80mg twice a day and you will follow up with Ms. Rothman of the CHF Clinic as scheduled. Your insulin dose was lowered to Lantus 20 units in the evening as your blood sugar is almost too low. Addtl Tag And Label Cutter Provider Instructions: Call your Primary Care doctor if any of the following symptoms or problems start or get worse: * Shortness of breath or difficulty breathing * Wake up at night short of breath * Chest pain * Cough * Swelling of your hands, feet, or legs * More fatigued or tired with your normal activity * Palpitations - sudden fast heart beats WEIGHT * Weigh yourself every morning after using the bathroom. * Use the same scale. * Wear the same amount of clothing. * Write your weight down on a chart. * Call your Primary Care doctor if you gain more than 2-3 pounds in 1-2 days. MEDICATIONS * Use this discharge instruction sheet for medication instructions. * Take your medications at the time your doctor ordered. * Do not skip a dose of your medicines. * If you miss a dose of medicine, take it as soon as possible, but DO NOT DOUBLE A DOSE. * Read your medicine information when you get home. * Know all of the side effects of your medicine. If in doubt, ask your pharmacist * Call your Primary Care doctor's office if you have any side effects. * Be sure all of your doctors know what medicine and herbs you take (including cold, flu, and herbal medicine). Take the following with you to your follow-up doctor appointments: * Weight Chart * Medication List * List of questions Do not drink excessive alcohol, beer or wine. Pending Studies at Discharge: No Stand-Alone Forms: My [employer], Smoking Cessation Medications and DC Order Prescriptions: New cephalexin 250 mg Capsule 250 mg PO TID Qty: 21 RF: 0 doxycycline hyclate 100 mg Capsule 100 mg PO BID@0700,1900 Qty: 14 RF: 0 triamcinolone acetonide 0.1 % Cream 1 applic EXT BID 14 Days Qty: 30 RF: 0 Continued cholecalciferol (vitamin D3) [Vitamin D3] 25 mcg (1,000 unit) tablet 2,000 unit PO QAM RF: 0 Novolog Flexpen U-100 Insulin 100 unit/mL (3 mL) insulin pen 7 - 10 unit subcut TIDM Qty: 45 RF: 1 Eliquis 2.5 mg tablet 2.5 mg PO BID Qty: 180 RF: 1 magnesium oxide 400 mg magnesium tablet 400 mg PO BID Qty: 90 RF: 1 acetaminophen [Tylenol Arthritis Pain] 650 mg tablet extended release 1,300 mg PO HS RF: 0 isosorbide mononitrate 30 mg tablet extended release 24 hr 30 mg PO QAM Qty: 90 RF: 1 albuterol sulfate [ProAir HFA] 90 mcg/actuation HFA aerosol inhaler 1 - 2 puffs INH Q4H PRN (Reason: shortness of breath or wheezing) Qty: 6.7 RF: 3 clindamycin phosphate 1 % gel 1 applic TOPICAL UD RF: 0 mirtazapine [Remeron] 15 mg tablet 15 mg PO QAM RF: 0 metoprolol succinate [Toprol XL] 50 mg tablet extended release 24 hr 100 mg PO BID RF: 0 permethrin [Elimite] 5 % cream 1 applic topical Q14D RF: 0 clopidogrel [Plavix] 75 mg tablet 75 mg PO QAM RF: 0 allopurinol [Zyloprim] 100 mg tablet 300 mg PO QAM RF: 0 levothyroxine [Synthroid] 50 mcg tablet 50 mcg PO DAILYBB RF: 0 pantoprazole [Protonix] 40 mg tablet,delayed release (DR/EC) 40 mg PO QAM RF: 0 fluticasone propionate [Flonase Allergy Relief] 50 mcg/actuation spray,suspension 1 spray intranasal BID PRN (Reason: allergy symptoms) RF: 0 duloxetine [Cymbalta] 60 mg capsule,delayed release(DR/EC) 60 mg PO QAM RF: 0 potassium chloride [K-Tab] 20 mEq tablet extended release 10 meq PO BID RF: 0 Changed furosemide [Lasix] 40 mg tablet 80 mg PO BID Qty: 60 RF: 0 Lantus Solostar U-100 Insulin 100 unit/mL (3 mL) insulin pen 20 unit subcut HS Qty: 0 RF: 0 Discharge Orders: Discharge Order (Routine); Ordered 11/27/20 Ordered By: Roz Spicer Admission Data Admit Date/Time: 11/26/20 12:33 Attending Provider: Roz Spicer Admit Provider: Dm Tsang Primary Care Provider: Domi Wetzel Other Providers: Dm Tsang ; Jesus Blanco [facility] Coding Level of Care Code D/C DAY MANAGEMENT >30 MINS Diagnoses Acute on chronic heart failure with preserved ejection fraction I50.33 Cellulitis L03.90 Bilateral edema of lower extremity R60.0 H/O scabies Z86.19 Venous insufficiency of both lower extremities I87.2 Asymptomatic bacteriuria R82.71 Diabetes mellitus with renal complications E11.29 Anemia D64.9 Anemia type: unspecified type Obstructive sleep apnea G47.33 Atrial fibrillation I48.91 Atrial fibrillation type: unspecified Chronic kidney disease (CKD) N18.9 Hypothyroidism E03.9 Hypothyroidism type: unspecified COPD (chronic obstructive pulmonary disease) J44.9 GERD (gastroesophageal reflux disease) K21.9 Esophagitis presence: esophagitis presence not specified CAD (coronary artery disease) I25.10
[2020-11-27] MEDS ORDERED: FUROSEMIDE 80 MG TAB PO SCH (17:00)
[2020-11-27] MEDS ORDERED: INSULIN GLARGINE SOLOSTAR 100 UNITS/ML 3 ML PEN SC SCH (21:00)
== END 2020-11-27 15:21 | disposition home health service (06) | DRG 291 ==
LOC: ED 04:57 → 2W 04:57 → SUATTDRO 09:44 → 2W 10:27

== ENCOUNTER 2020-12-04 12:07 | Inpatient (IN) ==
[2020-12-04 13:34] LABS: Appearance Urine Clear (Clear); Bilirubin Urine Negative (Negative); Blood Urine Negative (Negative); Color Urine Yellow; Glucose Urine UA Negative (Negative); Ketones Urine Negative (Negative); Leukocyte Esterase Urine Negative (Negative); Nitrite Urine Negative (Negative); Protein Urine Negative (Negative); Specific Gravity Urine 1.009 (1.000-1.030); Urobilinogen Urine Negative (Negative)
--- NOTE | 2020-12-04 15:33 | XRay Report ---
XR chest 1V portable CLINICAL HISTORY: Shortness of breath. COMPARISON STUDY: Chest radiograph November 24, 2020. FINDINGS: Lung volumes are normal. Lungs are clear. There is no pneumothorax or pleural effusion. Car diomegaly is unchanged. Mediastinal contours are normal. There is no evidence for pulmonary edema. IMPRESSION: No acute cardiopulmonary findings. No change in appearance of the chest. ACT 112: Negative or not required by law. Electronically signed by: Jeremy Gabriel M.D. 12/04/2020 3:32 PM
[2020-12-04 15:45] LABS: INR 1.4 (0.9-1.1); Partial Thromboplastin Ratio 1.2; Partial Thromboplastin Time 30.8 Seconds (21.0-31.0); Prothrombin Time 13.7 Seconds (9.0-12.0)
[2020-12-04 15:51] LABS: Alanine Aminotransferase 62 U/L (12-78); Albumin Level 3.6 gm/dl (3.4-5.0); Aspartate Aminotransferase 57 U/L (15-37); BUN Creatinine Ratio 21.3 (10-20); Blood Urea Nitrogen 44 mg/dl (7-18); Carbon Dioxide 30 mmol/L (21-32); Chloride 100 mmol/L (98-107); Est GFR (African American) 24.9 ml/min; Est GFR (Non-African American) 21.5 ml/min; Glucose 163 mg/dl (70-99); Magnesium 2.5 mg/dl (1.8-2.4); Potassium 4.4 mmol/L (3.5-5.1); Sodium 137 mmol/L (136-145)
[2020-12-04] MEDS ORDERED: METOPROLOL TARTRATE 1 MG/ML VIAL IV STA ×2 (15:55→17:10)
--- NOTE | 2020-12-04 15:55 | Emergency Department Note ---
Impression & Plan A-fib, Edema, CHF (congestive heart failure) ED Provider Note NAME: JULIO C FAULKNER AGE: 85 SEX: F : 1935 ARRIVES VIA: Ambulance INFORMANT: Patient ED PROVIDER(S): Julián Adames DO CHIEF COMPLAINT: swelling of the legs HPI: Patient is an 85-year-old female who presents to the ER for swelling in her legs. This has been going on for the past 3 days. She was seen by cardiology and given IV Lasix and placed on Bumex but it has been worsening. She has had a 5 pound weight gain recently. She relates that she does have some shortness of breath last night she had a little bit of a cough. Denies any belly pain, nausea, vomiting, or diarrhea. No dysuria, urgency, or frequency. She notes that she will intermittently get spasms in the legs. She was recently admitted and discharged. She has not missed any doses of her NOAC. ROS: See above HPI for pertinent positives & negatives. A total of 10 systems reviewed and were otherwise negative. PAST MEDICAL HISTORY:See Below PAST SURGICAL HISTORY:See Below FAMILY HISTORY:See Below SOCIAL HISTORY:See Below HOME MEDICATIONS:See Below ALLERGIES:See Below VITALS:See Below PHYSICAL EXAMINATION: GENERAL: Sitting up in bed, alert, well appearing, well nourished, no distress, non-toxic EYE EXAM: normal conjunctiva. PERRL and EOM's grossly intact. OROPHARYNX: no exudate, no erythema, lips, buccal mucosa, and tongue normal and mucous membranes are moist NECK: supple, no nuchal rigidity, no adenopathy, non-tender LUNGS: Clear to auscultation. Normal chest wall mechanics HEART: no murmurs, S1 normal and S2 normal ABDOMEN: abdomen soft, non-tender, normo-active bowel sounds, no masses, no rebound or guarding. UPPER EXTREMITIES: upper extremities are grossly normal. LOWER EXTREMITIES: Calves are equal bilateral with pitting edema in bilateral lower extremities NEURO EXAM: Normal sensorium, cranial nerves II-XII grossly intact, normal speech, no gross weakness of arms, no gross weakness of legs. MEDICAL DECISION MAKING: Patient is an 85-year-old female that presents the ER for swelling of the legs as well as a 5 pound weight gain. IV was established blood was obtained. Labs show no significant leukocytosis but a mild anemia 8.5. INR at 1.4. BMP with a creatinine of 2 slightly up from baseline of 1.8. T bili was up at 3 which is fairly consistent with previous. proBNP was elevated at 8000. UA was clean. Covid was negative. Chest x-ray was fairly unremarkable. Pitting edema in the lower extremities. Patient was given 2 dose of Lopressor for A. fib RVR. Heart rate trended down slightly. EKG was unchanged from previous. She was updated bedside discussed with hospitalist admitted for further work-up. Triage Nursing notes reviewed. Limited review of prior medical records performed Vital Signs: reviewed and remarkable for tachy Differential diagnosis: Differential diagnoses includes but is not limited to pneumonia, bronchitis, COPD/Asthma exacerbation, pneumothorax, pulmonary embolism, congestive heart failure, acute coronary syndrome ER treatment provided: See below Diagnostics interpreted by me: ECG: A. fib RVR rate of 119 Normal axis No PVCs Low voltage QTC 506 Cardiac Monitoring: An order was placed for continuous cardiac monitoring. The monitor shows a rate of 121 with Afib rhythm. Laboratory studies: As stated above and show below. Imaging studies: Portable AP upright 1 view of the chest was unremarkable Consultation(s): Discussed with hospitalist for further evaluation Procedures: none Critical Care: None Past Med/Surg History Medical History Anemia Chronic macrocytic Asthma Atrial fibrillation CAD (coronary artery disease) Cerebrovascular disease Chronic diastolic congestive heart failure Chronic kidney disease (CKD) Stage III, baseline Cr 1.3-1.5mg/dL. Complicated with normocytic anemia and secondary hyperparathyroidism. Followed by nephrology. 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 Cannot perform MRI due to bladder implant. Followed by pain management. Epidural steroid injections with improvement of pain. Evaluated by ortho, decided against surgery. Managed with gabapentin 300mg TID + APAP PRN + tapentadol 50mg BID PRN GERD (gastroesophageal reflux disease) History of gout Managed with allopruinol daily. No recent gouty attacks. Uric acid suppressed 3.4 mg/dl (12/22) Hyperlipidemia Secondary prevention with moderate intensity statin (atorvastatin 20mg daily) Hypertension Hypothyroidism Lichen planus Macular degeneration Mitral regurgitation Neurologic gait dysfunction Obstructive sleep apnea Long standing. Managed with CPAP nightly. CPAP titration polysomnography (07/14). Sensorineural hearing loss (SNHL) of both ears Venous insufficiency of both lower extremities Surgical History H/O colonoscopy History of repair of rectocele S/P breast biopsy S/P section S/P cholecystectomy S/P hysterectomy S/P implantation of urinary electronic stimulator device Family History Father , Age 64 No problems noted. Mother , Age 61 No problems noted. 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 current occupational status: retired Feels Safe at Home: Yes Childhood Exposure to Second-Hand Smoke: No Dental Care, Regularly: Yes Physical Activity Frequency: 1-2 Times per Week Physical Activity Frequency Comment: physical therapy Seatbelt Use: always Sunscreen Use: Yes Assistive Devices: Denture - Upper and Denture - Lower Allergies Allergies Allergy/AdvReac Type Severity Reaction Status Date / Time shellfish derived Allergy Severe ANAPHYLAXIS Verified 12/04/20 17:27 iodine Allergy Intermediate ANAPHYLAXIS Verified 12/04/20 17:27 lisinopril Allergy Unknown Unknown Verified 12/04/20 17:27 oxybutynin [From Ditropan] Allergy Unknown Unknown Verified 12/04/20 17:27 sertraline [From Zoloft] Allergy Unknown Unknown Verified 12/04/20 17:27 paroxetine AdvReac Mild GI UPSET Verified 12/04/20 17:27 Home Meds Home Medications Medication Instructions Recorded Confirmed acetaminophen 650 mg 1,300 mg PO HS tab 05/11/20 12/04/20 tablet,extended release (Tylenol Arthritis Pain) cholecalciferol (vitamin D3) 25 2,000 unit PO QAM tab 05/11/20 12/04/20 mcg (1,000 unit) tablet (Vitamin D3) allopurinol 100 mg tablet 300 mg PO QAM 11/07/20 12/04/20 (Zyloprim) clopidogrel 75 mg tablet (Plavix) 75 mg PO QAM 11/07/20 12/04/20 duloxetine 60 mg capsule,delayed 60 mg PO QAM 11/07/20 12/04/20 release (Cymbalta) fluticasone propionate 50 1 spray INTRANASAL BID PRN 11/07/20 12/04/20 mcg/actuation nasal spray,suspension (Flonase Allergy Relief) levothyroxine 50 mcg tablet 50 mcg PO DAILYBB 11/07/20 12/04/20 (Synthroid) mirtazapine 15 mg tablet (Remeron) 15 mg PO QAM 11/07/20 12/04/20 pantoprazole 40 mg tablet,delayed 40 mg PO QAM 11/07/20 12/04/20 release (Protonix) potassium chloride 20 mEq 10 meq PO BID 11/07/20 12/04/20 tablet,extended release (K-Tab) metoprolol succinate 50 mg 150 mg PO TID tab 12/03/20 12/04/20 tablet,extended release 24 hr (Toprol XL) Previous Rx's Medication Instructions Recorded albuterol sulfate 90 mcg/actuation 1 - 2 puffs INH Q4H PRN #6.7 gm 04/26/19 aerosol inhaler (ProAir HFA) isosorbide mononitrate 30 mg 30 mg PO QAM #90 tab 04/30/20 tablet,extended release 24 hr insulin aspart U-100 100 unit/mL 7 - 10 unit SUBCUT TIDM #45 ml 06/01/20 (3 mL) subcutaneous pen (Novolog Flexpen U-100 Insulin aspart) apixaban 2.5 mg tablet (Eliquis) 2.5 mg PO BID #180 tab 08/06/20 magnesium oxide 400 mg PO BID #90 tab 10/02/20 cephalexin 250 mg capsule 250 mg PO TID #21 cap 11/27/20 doxycycline hyclate 100 mg capsule 100 mg PO BID@0700,1900 #14 cap 11/27/20 insulin glargine 100 unit/mL (3 20 unit SUBCUT HS #0 ml 11/27/20 mL) subcutaneous pen (Lantus Solostar U-100 Insulin) triamcinolone acetonide 0.1 % 1 applic EXT BID 14 Days #30 g 11/27/20 topical cream bumetanide 2 mg tablet 2 mg PO BID #60 tab 12/03/20 Results & Data (ED) Vital Signs Vital Signs - 24 hr 12/04/20 12:34 12/04/20 15:11 12/04/20 15:12 Temperature 35.8 C L Temperature Source Temporal Artery Scan Pulse Rate 106 H 102 H Pulse Rate [Right Finger] Pulse Rhythm [Right Finger] Pulse Strength [Right Finger] Respiratory Rate 20 20 Respiratory Effort / Characteristics Non-Labored Non-Labored Respiratory Depth Normal Respiratory Pattern Blood Pressure 127/78 Blood Pressure [Right Arm] Blood Pressure Mean 94 Blood Pressure Mean [Right Arm] Pulse Oximetry 98 98 100 Oxygen Delivery Method Room Air Room Air Room Air Sepsis Recent Fever Within 48 Hours No Sepsis New/Unexplained Change in Mental Status No Sepsis Action Taken by Nursing No Action Required 12/04/20 15:14 12/04/20 16:14 12/04/20 17:28 Temperature Temperature Source Pulse Rate 118 H 105 H Pulse Rate [Right Finger] 102 H 118 H Pulse Rhythm [Right Finger] Pulse Strength [Right Finger] Respiratory Rate 18 16 Respiratory Effort / Characteristics Non-Labored Non-Labored Respiratory Depth Normal Normal Respiratory Pattern Blood Pressure 121/76 Blood Pressure [Right Arm] 103/63 120/87 Blood Pressure Mean Blood Pressure Mean [Right Arm] 76 98 Pulse Oximetry 98 99 Oxygen Delivery Method Room Air Room Air Sepsis Recent Fever Within 48 Hours Sepsis New/Unexplained Change in Mental Status Sepsis Action Taken by Nursing 12/04/20 18:44 Temperature Temperature Source Pulse Rate Pulse Rate [Right Finger] 111 H Pulse Rhythm [Right Finger] Irregular Pulse Strength [Right Finger] Normal Respiratory Rate 16 Respiratory Effort / Characteristics Non-Labored Respiratory Depth Normal Respiratory Pattern Regular Blood Pressure Blood Pressure [Right Arm] 126/82 Blood Pressure Mean Blood Pressure Mean [Right Arm] 96 Pulse Oximetry 99 Oxygen Delivery Method Room Air Sepsis Recent Fever Within 48 Hours Sepsis New/Unexplained Change in Mental Status Sepsis Action Taken by Nursing Laboratory Data Result diagrams: 12/04/20 15:23 12/04/20 15:23 Lab Results 12/04/20 12/04/20 12/04/20 Range/Units 13:15 15:23 15:23 WBC 6.05 (4.8-10.8) K/uL RBC 2.54 L (4.2-5.4) M/uL Hgb 8.5 L (12.0-16.0) g/dL Hct 28.5 L (37-47) % MCV 112.2 H (80-100) fL MCH 33.5 (25-34) pg MCHC 29.8 L (32-36) g/dL RDW Std Deviation 95.1 H (36.4-46.3) fL RDW Coeff of Talia 25.5 H (11.5-14.5) % Plt Count 333 (130-400) K/uL Immature Gran % (Auto) 0.8 % Neut % (Auto) 73.0 % Lymph % (Auto) 12.7 % Marathon % (Auto) 9.6 % Eos % (Auto) 3.6 % Baso % (Auto) 0.3 % Neut # (Auto) 4.41 (1.4-6.5) K/uL Lymph # (Auto) 0.77 L (1.2-3.4) K/uL Marathon # (Auto) 0.58 (0.11-0.59) K/uL Eos # (Auto) 0.22 (0-0.5) K/uL Baso # (Auto) 0.02 (0-0.2) K/uL Immature Gran # (Auto) 0.05 H (0.00-0.02) K/uL Absolute Nucleated RBC 0.14 H (0-0) K/uL Nucleated RBC % (auto) 2.3 % Platelet Estimate Normal (Normal) Giant Platelets 1+ Polychromasia 2+ Poikilocytosis Present Anisocytosis Present Microcytosis Present Macrocytosis Present Ovalocytes 2+ Schistocytes Occasional PT 13.7 H (9.0-12.0) Seconds INR 1.4 H (0.9-1.1) APTT 30.8 (21.0-31.0) Seconds PTT Ratio 1.2 Sodium (136-145) mmol/L Potassium (3.5-5.1) mmol/L Chloride (98-107) mmol/L Carbon Dioxide (21-32) mmol/L Anion Gap (3-11) BUN (7-18) mg/dl Creatinine (0.6-1.2) mg/dl Est Cr Clr Drug Dosing Est GFR ( Amer) ml/min Est GFR (Non-Af Amer) ml/min BUN/Creatinine Ratio (10-20) Glucose (70-99) mg/dl Calcium (8.5-10.1) mg/dl Magnesium (1.8-2.4) mg/dl Total Bilirubin (0.2-1) mg/dl AST (15-37) U/L ALT (12-78) U/L Alkaline Phosphatase (45-117) U/L Troponin I (0-0.045) ng/ml NT-Pro-B Natriuret Pep (0-1800) pg/ml Total Protein (6.4-8.2) gm/dl Albumin (3.4-5.0) gm/dl Globulin (2.5-4.0) gm/dl Albumin/Globulin Ratio (0.9-2) Urine Color Yellow Urine Appearance Clear (Clear) Urine pH 7.0 (4.5-7.5) Ur Specific Pala 1.009 (1.000-1.030) Urine Protein Negative (Negative) Urine Glucose (UA) Negative (Negative) Urine Ketones Negative (Negative) Urine Blood Negative (Negative) Urine Nitrite Negative (Negative) Urine Bilirubin Negative (Negative) Urine Urobilinogen Negative (Negative) Ur Leukocyte Esterase Negative (Negative) COVID-19 Eval Order SARS-CoV-2 (PCR) (Negative) 12/04/20 12/04/20 12/04/20 Range/Units 15:23 15:23 17:40 WBC (4.8-10.8) K/uL RBC (4.2-5.4) M/uL Hgb (12.0-16.0) g/dL Hct (37-47) % MCV (80-100) fL MCH (25-34) pg MCHC (32-36) g/dL RDW Std Deviation (36.4-46.3) fL RDW Coeff of Talia (11.5-14.5) % Plt Count (130-400) K/uL Immature Gran % (Auto) % Neut % (Auto) % Lymph % (Auto) % Marathon % (Auto) % Eos % (Auto) % Baso % (Auto) % Neut # (Auto) (1.4-6.5) K/uL Lymph # (Auto) (1.2-3.4) K/uL Marathon # (Auto) (0.11-0.59) K/uL Eos # (Auto) (0-0.5) K/uL Baso # (Auto) (0-0.2) K/uL Immature Gran # (Auto) (0.00-0.02) K/uL Absolute Nucleated RBC (0-0) K/uL Nucleated RBC % (auto) % Platelet Estimate (Normal) Giant Platelets Polychromasia Poikilocytosis Anisocytosis Microcytosis Macrocytosis Ovalocytes Schistocytes PT (9.0-12.0) Seconds INR (0.9-1.1) APTT (21.0-31.0) Seconds PTT Ratio Sodium 137 (136-145) mmol/L Potassium 4.4 (3.5-5.1) mmol/L Chloride 100 (98-107) mmol/L Carbon Dioxide 30 (21-32) mmol/L Anion Gap 8.0 (3-11) BUN 44 H (7-18) mg/dl Creatinine 2.08 H (0.6-1.2) mg/dl Est Cr Clr Drug Dosing Not Reportable Est GFR ( Amer) 24.9 ml/min Est GFR (Non-Af Amer) 21.5 ml/min BUN/Creatinine Ratio 21.3 H (10-20) Glucose 163 H (70-99) mg/dl Calcium 9.0 (8.5-10.1) mg/dl Magnesium 2.5 H (1.8-2.4) mg/dl Total Bilirubin 3.3 H (0.2-1) mg/dl AST 57 H (15-37) U/L ALT 62 (12-78) U/L Alkaline Phosphatase 254 H (45-117) U/L Troponin I < 0.015 (0-0.045) ng/ml NT-Pro-B Natriuret Pep 8311 H (0-1800) pg/ml Total Protein 7.1 (6.4-8.2) gm/dl Albumin 3.6 (3.4-5.0) gm/dl Globulin 3.5 (2.5-4.0) gm/dl Albumin/Globulin Ratio 1.0 (0.9-2) Urine Color Urine Appearance (Clear) Urine pH (4.5-7.5) Ur Specific Pala (1.000-1.030) Urine Protein (Negative) Urine Glucose (UA) (Negative) Urine Ketones (Negative) Urine Blood (Negative) Urine Nitrite (Negative) Urine Bilirubin (Negative) Urine Urobilinogen (Negative) Ur Leukocyte Esterase (Negative) COVID-19 Eval Order Covid19 at [facility] SARS-CoV-2 (PCR) (Negative) 12/04/20 Range/Units 17:40 WBC (4.8-10.8) K/uL RBC (4.2-5.4) M/uL Hgb (12.0-16.0) g/dL Hct (37-47) % MCV (80-100) fL MCH (25-34) pg MCHC (32-36) g/dL RDW Std Deviation (36.4-46.3) fL RDW Coeff of Talia (11.5-14.5) % Plt Count (130-400) K/uL Immature Gran % (Auto) % Neut % (Auto) % Lymph % (Auto) % Marathon % (Auto) % Eos % (Auto) % Baso % (Auto) % Neut # (Auto) (1.4-6.5) K/uL Lymph # (Auto) (1.2-3.4) K/uL Marathon # (Auto) (0.11-0.59) K/uL Eos # (Auto) (0-0.5) K/uL Baso # (Auto) (0-0.2) K/uL Immature Gran # (Auto) (0.00-0.02) K/uL Absolute Nucleated RBC (0-0) K/uL Nucleated RBC % (auto) % Platelet Estimate (Normal) Giant Platelets Polychromasia Poikilocytosis Anisocytosis Microcytosis Macrocytosis Ovalocytes Schistocytes PT (9.0-12.0) Seconds INR (0.9-1.1) APTT (21.0-31.0) Seconds PTT Ratio Sodium (136-145) mmol/L Potassium (3.5-5.1) mmol/L Chloride (98-107) mmol/L Carbon Dioxide (21-32) mmol/L Anion Gap (3-11) BUN (7-18) mg/dl Creatinine (0.6-1.2) mg/dl Est Cr Clr Drug Dosing Est GFR ( Amer) ml/min Est GFR (Non-Af Amer) ml/min BUN/Creatinine Ratio (10-20) Glucose (70-99) mg/dl Calcium (8.5-10.1) mg/dl Magnesium (1.8-2.4) mg/dl Total Bilirubin (0.2-1) mg/dl AST (15-37) U/L ALT (12-78) U/L Alkaline Phosphatase (45-117) U/L Troponin I (0-0.045) ng/ml NT-Pro-B Natriuret Pep (0-1800) pg/ml Total Protein (6.4-8.2) gm/dl Albumin (3.4-5.0) gm/dl Globulin (2.5-4.0) gm/dl Albumin/Globulin Ratio (0.9-2) Urine Color Urine Appearance (Clear) Urine pH (4.5-7.5) Ur Specific Pala (1.000-1.030) Urine Protein (Negative) Urine Glucose (UA) (Negative) Urine Ketones (Negative) Urine Blood (Negative) Urine Nitrite (Negative) Urine Bilirubin (Negative) Urine Urobilinogen (Negative) Ur Leukocyte Esterase (Negative) COVID-19 Eval Order SARS-CoV-2 (PCR) NEGATIVE (Negative) Administered Medications Discontinued Medications Metoprolol Tartrate (Metoprolol Tartrate 1 Mg/Ml Vial) 2.5 mg IV NOW STA Stop: 12/04/20 15:56 Last Admin: 12/04/20 16:14 Dose: 2.5 mg Documented by: [id number] Metoprolol Tartrate (Metoprolol Tartrate 1 Mg/Ml Vial) 5 mg IV NOW STA Stop: 12/04/20 17:11 Last Admin: 12/04/20 17:28 Dose: 5 mg Documented by: [id number] Imaging Data Radiologist's Impression: Chest X-Ray 12/04/20 15:03 XR chest 1V portable CLINICAL HISTORY: Shortness of breath. COMPARISON STUDY: Chest radiograph November 24, 2020. FINDINGS: Lung volumes are normal. Lungs are clear. There is no pneumothorax or pleural effusion. Cardiomegaly is unchanged. Mediastinal contours are normal. There is no evidence for pulmonary edema. IMPRESSION: No acute cardiopulmonary findings. No change in appearance of the chest. ACT 112: Negative or not required by law. Electronically signed by: Jeremy Gabriel M.D. 12/04/2020 3:32 PM Discharge Plan Visit Data Chief Complaint: Swelling/Edema to Extremity Stated Complaint: EDEMA TO LEG & FEET, SORE ON LEG ED Provider: Julián Adames Discharge Problem: A-fib, Edema, CHF (congestive heart failure) Forms Stand Alone Forms: [facility] DoubleRecall Prescriptions Prescriptions: No Action cholecalciferol (vitamin D3) [Vitamin D3] 25 mcg (1,000 unit) tablet 2,000 unit PO QAM RF: 0 Novolog Flexpen U-100 Insulin 100 unit/mL (3 mL) insulin pen 7 - 10 unit subcut TIDM Qty: 45 RF: 1 Eliquis 2.5 mg tablet 2.5 mg PO BID Qty: 180 RF: 1 magnesium oxide 400 mg magnesium tablet 400 mg PO BID Qty: 90 RF: 1 bumetanide 2 mg tablet 2 mg PO BID Qty: 60 RF: 2 acetaminophen [Tylenol Arthritis Pain] 650 mg tablet extended release 1,300 mg PO HS RF: 0 isosorbide mononitrate 30 mg tablet extended release 24 hr 30 mg PO QAM Qty: 90 RF: 1 metoprolol succinate [Toprol XL] 50 mg tablet extended release 24 hr 150 mg PO TID RF: 0 albuterol sulfate [ProAir HFA] 90 mcg/actuation HFA aerosol inhaler 1 - 2 puffs INH Q4H PRN (Reason: shortness of breath or wheezing) Qty: 6.7 RF: 3 cephalexin 250 mg Capsule 250 mg PO TID Qty: 21 RF: 0 doxycycline hyclate 100 mg Capsule 100 mg PO BID@0700,1900 Qty: 14 RF: 0 triamcinolone acetonide 0.1 % Cream 1 applic EXT BID 14 Days Qty: 30 RF: 0 Lantus Solostar U-100 Insulin 100 unit/mL (3 mL) insulin pen 20 unit subcut HS Qty: 0 RF: 0 mirtazapine [Remeron] 15 mg tablet 15 mg PO QAM RF: 0 clopidogrel [Plavix] 75 mg tablet 75 mg PO QAM RF: 0 allopurinol [Zyloprim] 100 mg tablet 300 mg PO QAM RF: 0 levothyroxine [Synthroid] 50 mcg tablet 50 mcg PO DAILYBB RF: 0 pantoprazole [Protonix] 40 mg tablet,delayed release (DR/EC) 40 mg PO QAM RF: 0 fluticasone propionate [Flonase Allergy Relief] 50 mcg/actuation spray,suspension 1 spray intranasal BID PRN (Reason: allergy symptoms) RF: 0 duloxetine [Cymbalta] 60 mg capsule,delayed release(DR/EC) 60 mg PO QAM RF: 0 potassium chloride [K-Tab] 20 mEq tablet extended release 10 meq PO BID RF: 0 Referrals Referrals: Domi Wetzel DO [Primary Care Provider] - Discharge Problem: A-fib Qualifiers: Atrial fibrillation type: unspecified Qualified Code(s): I48.91 - Unspecified atrial fibrillation Edema Qualifiers: Edema type: unspecified Qualified Code(s): R60.9 - Edema, unspecified CHF (congestive heart failure) Qualifiers: Heart failure type: unspecified Heart failure chronicity: unspecified Qualified Code(s): I50.9 - Heart failure, unspecified
[2020-12-04 15:56] LABS: Alkaline Phosphatase 254 U/L (45-117); Bilirubin,Total 3.3 mg/dl (0.2-1); Globulin 3.5 gm/dl (2.5-4.0); Total Protein 7.1 gm/dl (6.4-8.2); Troponin I < 0.015 ng/ml (0-0.045)
[2020-12-04 16:29] LABS: Anisocytosis Present; Basophils # (auto) 0.02 K/uL (0-0.2); Basophils % (auto) 0.3 %; Eosinophils # (auto) 0.22 K/uL (0-0.5); Eosinophils % (auto) 3.6 %; Giant Platelets 1+; Hematocrit (blood only) 28.5 % (37-47); Hemoglobin 8.5 g/dL (12.0-16.0); Immature Granulocytes # (auto) 0.05 K/uL (0.00-0.02); Immature Granulocytes % (auto) 0.8 %; Lymphocytes # (auto) 0.77 K/uL (1.2-3.4); Lymphocytes % (auto) 12.7 %; Macrocytosis Present; Mean Corpuscular Hemoglobin 33.5 pg (25-34); Mean Corpuscular Hgb Conc 29.8 g/dL (32-36); Mean Corpuscular Volume 112.2 fL (80-100); Microcytosis Present; Monocytes # (auto) 0.58 K/uL (0.11-0.59); Monocytes % (auto) 9.6 %; Neutrophils # (auto) 4.41 K/uL (1.4-6.5); Nucleated RBC # (auto) 0.14 K/uL (0-0); Nucleated RBC % (auto) 2.3 %; Ovalocytes 2+; Platelet Count 333 K/uL (130-400); Platelet Estimate Normal (Normal); Poikilocytosis Present; Polychromasia 2+; RDW Coefficient of Variation 25.5 % (11.5-14.5); RDW Standard Deviation 95.1 fL (36.4-46.3); Red Blood Count 2.54 M/uL (4.2-5.4); Schistocytes Occasional; White Blood Count 6.05 K/uL (4.8-10.8)
--- NOTE | 2020-12-04 19:08 | History & Physical Report ---
Date of Service December 04, 2020 Assessment & Plan (1) Atrial fibrillation: Plan: Attending: Dr. Dm Tsang Patient with atrial fibrillation with rapid ventricular rate of 119 bpm on admission confirmed by EKG Patient is asymptomatic other than description of shortness of breath Patient received metoprolol tartrate 5 mg IV x1 and metoprolol tartrate 2.5 mg IV x1 in the emergency department At the time of my examination she continued in atrial fibrillation but had a rate of approximately 105 bpm. We will admit her to PCU telemetry and monitor Continue metoprolol succinate (Toprol-XL) at 150 mg p.o. twice daily. It should be noted that this was an increased dose as of yesterday and was previously 100 mg p.o. twice daily when the patient was discharged on 11/27/2020 Continue with anticoagulation with apixaban 2.5 mg p.o. twice daily Inasmuch as patient follows regularly with cardiology, we will ask for cardiology consult so the patient can be managed for both her atrial fibrillation as well as her uncontrolled congestive heart failure. (2) Bilateral edema of lower extremity: Plan: Patient was previously thought to have cellulitis of bilateral lower extremities She is currently afebrile and has no leukocytosis We will check procalcitonin with a.m. labs At this time hold outpatient doxycycline and Keflex Continue to diurese. * Patient converted from furosemide to Bumex yesterday by heart failure clinic * Will continue with outpatient dose of Bumex 2 mg but will give IV while inpatient * Follow daily weights * Doubt deep vein thrombosis as patient is anticoagulated with therapeutic doses of apixaban 2.5 mg p.o. twice daily (3) Venous insufficiency of both lower extremities: Plan: Patient with ongoing lower extremity edema from chronic congestive heart failure No apparent evidence of cellulitis today Continue to follow (4) Chronic CHF: Plan: Follows with the [facility] cardiology heart failure clinic * Was seen yesterday and changed from Lasix to Bumex 2 mg p.o. twice daily * proBNP yesterday was greater than ten thousand * proBNP today is eighty-three hundred * Continue diuresis with Bumex 2 mg IV twice daily and follow daily weights (5) Diabetes mellitus, type II: Plan: Laboratory Tests 10/04/20 07:43 Hemoglobin A1c 5.2 Patient on Lantus as well as NovoLog at home We will continue with basal rate of Lantus at 20 units HS NovoLog sliding scale insulin Repeat hemoglobin A1c in the morning Appreciate glycemic consult from pharmacy (6) Chronic kidney disease (CKD): Plan: Creatinine 2.08 Baseline creatinine appears to be 1.9-2.0 We are currently increasing diuretics to Bumex 2 mg IV twice daily Follow daily creatinine Follow urine output We will hold off on urinary catheter at this time (7) H/O scabies: Plan: No evidence of mites at this time No indication for isolation at this time Continue triamcinolone topical application twice daily (8) History of gout: Plan: No current acute complaints Continue with maintenance doses of allopurinol (9) CAD (coronary artery disease): Plan: No chest pain or tightness Troponin is negative Continue metoprolol, Imdur, Plavix Follow electrolytes Patient is not on aspirin or other antiplatelet agents Monitor on telemetry (10) GERD (gastroesophageal reflux disease): Plan: Continue home dose of pantoprazole (11) COPD (chronic obstructive pulmonary disease): Plan: No formal diagnosis and patient has not done any the bronchodilators, ICS, or AC Saturating 99% on room air (12) Hypothyroidism: Plan: Continue levothyroxine TSH 0.607 (13) Obstructive sleep apnea: Plan: Patient with polysomnography exam in 2009 revealed sleep apnea. At that time CPAP titration study was completed and it was recommended the patient be placed on 13 cm of H2O. Patient reports that she has not used CPAP At this time will order CPAP while inpatient at 13 cm of water to be used as tolerated Recommend outpatient polysomnography exam to requalify This is especially important with patient's cardiac history. (14) Anemia: Plan: Chronic anemia with macrocytosis Hemoglobin 8.5 with hematocrit of 28% No indication for transfusion at this time Check repeat CBC in the morning No current bleeding or evidence of blood loss (15) Ambulatory dysfunction: Plan: Patient uses a wheelchair and a cane at home as well as a walker Patient states that she is able to ambulate Will admit with ambulation with assistance and fall precautions on the floor (16) Diabetic peripheral neuropathy: Plan: Patient states that she had been on Neurontin in the past but currently is not receiving any Would recommend managing this as an outpatient. (17) Macular degeneration: Plan: Currently not on any outpatient eyedrops Patient reports that she gets injections in her eyes from ophthalmology Further management as an outpatient (18) DVT prophylaxis: Plan: Chronic anticoagulation with apixaban 2.5 mg p.o. twice daily Out of bed as tolerated Ambulate as tolerated Plan: Patient admitted for observation for atrial fibrillation with RVR. Admit to telemetry unit Please refer to Dr. Tsang's addendum for further recommendations and corrections History of Present Illness Chief Complaint: Shortness of breath, atrial fibrillation with RVR Primary Care Provider: Domi Wetzel DO Attending: Dr. Dm Tsang This is an 85-year-old female with history of severe pulmonary hypertension, congestive heart failure, atrial fibrillation, chronic anticoagulation with Eliquis, diabetes mellitus type 2 on long-term insulin, scabies, bilateral lower extremity cellulitis mitral regurgitation, hyperlipidemia, gout, severe diabetic peripheral neuropathy, depression with anxiety, history of cerebrovascular disease, obstructive sleep apnea not on CPAP, hypothyroidism, COPD without pulmonary function testing, GERD, CAD, hypertension, macular degeneration, and sensorineural hearing loss of both ears. Patient presented with weakness and shortness of breath. She was found to be in atrial fibrillation with RVR with a external heart rate of 118 bpm. Patient is hemodynamically stable. Patient has no hypoxia and is currently saturating 99% on room air. Patient denies any chest pain or tightness. No pleuritic pain. No hemoptysis. She states that she is taking all of her medications not missed any doses. Patient denies any awareness of palpitations or tachyarrhythmia. She has a chief complaint on her side of lower extremity edema. She saw Madelaine Rothman PA-C at the heart failure clinic yesterday. She was converted from furosemide to Bumex 2 mg p.o. twice daily but states that she has no significant change in urine output. She reports her legs continue to be extremely edematous. She states that she does have some urine output but not as she would expect with a change in diuretics. Patient has chronic anemia and currently has a hemoglobin of 8.5 with a hematocrit of 28.5%. She denies any active bleeding. No awareness of GI complication. Patient does complain of peripheral neuropathy of the lower legs. She is extremely sensitive to touch. I was able to palpate pedal pulses but she complained of pain with light palpation. Patient was discharged on 11/27/2020 with doxycycline 100 mg p.o. twice daily as well as Keflex for her lower ex tremity cellulitis. At this time, she does not appear to have any significant cellulitis. She denies fever, chills, sweats, rigors. She has no nausea or vomiting. She has no other acute complaints. Patient does not have any history of Covid. She does report that she is vaccinated with Moderna x2 with her second vaccination being July 2020. Allergies Allergy/AdvReac Type Severity Reaction Status Date / Time shellfish derived Allergy Severe ANAPHYLAXIS Verified 12/04/20 17:27 iodine Allergy Intermediate ANAPHYLAXIS Verified 12/04/20 17:27 lisinopril Allergy Unknown Unknown Verified 12/04/20 17:27 oxybutynin [From Ditropan] Allergy Unknown Unknown Verified 12/04/20 17:27 sertraline [From Zoloft] Allergy Unknown Unknown Verified 12/04/20 17:27 paroxetine AdvReac Mild GI UPSET Verified 12/04/20 17:27 Home Medications Medication Instructions Recorded Confirmed Type albuterol sulfate 90 mcg/actuation 1 - 2 puffs INH Q4H PRN #6.7 gm 04/26/19 12/04/20 Rx aerosol inhaler (ProAir HFA) isosorbide mononitrate 30 mg 30 mg PO QAM #90 tab 04/30/20 12/04/20 Rx tablet,extended release 24 hr acetaminophen 650 mg 1,300 mg PO HS tab 05/11/20 12/04/20 History tablet,extended release (Tylenol Arthritis Pain) cholecalciferol (vitamin D3) 25 2,000 unit PO QAM tab 05/11/20 12/04/20 History mcg (1,000 unit) tablet (Vitamin D3) insulin aspart U-100 100 unit/mL 7 - 10 unit SUBCUT TIDM #45 ml 06/01/20 12/04/20 Rx (3 mL) subcutaneous pen (Novolog Flexpen U-100 Insulin aspart) apixaban 2.5 mg tablet (Eliquis) 2.5 mg PO BID #180 tab 08/06/20 12/04/20 Rx magnesium oxide 400 mg PO BID #90 tab 10/02/20 12/04/20 Rx allopurinol 100 mg tablet 300 mg PO QAM 11/07/20 12/04/20 History (Zyloprim) clopidogrel 75 mg tablet (Plavix) 75 mg PO QAM 11/07/20 12/04/20 History duloxetine 60 mg capsule,delayed 60 mg PO QAM 11/07/20 12/04/20 History release (Cymbalta) fluticasone propionate 50 1 spray INTRANASAL BID PRN 11/07/20 12/04/20 History mcg/actuation nasal spray,suspension (Flonase Allergy Relief) levothyroxine 50 mcg tablet 50 mcg PO DAILYBB 11/07/20 12/04/20 History (Synthroid) mirtazapine 15 mg tablet (Remeron) 15 mg PO QAM 11/07/20 12/04/20 History pantoprazole 40 mg tablet,delayed 40 mg PO QAM 11/07/20 12/04/20 History release (Protonix) potassium chloride 20 mEq 10 meq PO BID 11/07/20 12/04/20 History tablet,extended release (K-Tab) cephalexin 250 mg capsule 250 mg PO TID #21 cap 11/27/20 12/04/20 Rx doxycycline hyclate 100 mg capsule 100 mg PO BID@0700,1900 #14 cap 11/27/20 12/04/20 Rx insulin glargine 100 unit/mL (3 20 unit SUBCUT HS #0 ml 11/27/20 12/04/20 Rx mL) subcutaneous pen (Lantus Solostar U-100 Insulin) triamcinolone acetonide 0.1 % 1 applic EXT BID 14 Days #30 g 11/27/20 12/04/20 Rx topical cream bumetanide 2 mg tablet 2 mg PO BID #60 tab 12/03/20 12/04/20 Rx metoprolol succinate 50 mg 150 mg PO TID tab 12/03/20 12/04/20 History tablet,extended release 24 hr (Toprol XL) Past Med/Surg History Medical History Anemia Chronic macrocytic Asthma Atrial fibrillation CAD (coronary artery disease) Cerebrovascular disease Chronic diastolic congestive heart failure Chronic kidney disease (CKD) Stage III, baseline Cr 1.3-1.5mg/dL. Complicated with normocytic anemia and secondary hyperparathyroidism. Followed by nephrology. 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 Cannot perform MRI due to bladder implant. Followed by pain management. Epidural steroid injections with improvement of pain. Evaluated by ortho, decided against surgery. Managed with gabapentin 300mg TID + APAP PRN + tapentadol 50mg BID PRN GERD (gastroesophageal reflux disease) History of gout Managed with allopruinol daily. No recent gouty attacks. Uric acid suppressed 3.4 mg/dl (12/22) Hyperlipidemia Secondary prevention with moderate intensity statin (atorvastatin 20mg daily) Hypertension Hypothyroidism Lichen planus Macular degeneration Mitral regurgitation Neurologic gait dysfunction Obstructive sleep apnea Long standing. Managed with CPAP nightly. CPAP titration polysomnography (07/14). Sensorineural hearing loss (SNHL) of both ears Venous insufficiency of both lower extremities Surgical History H/O colonoscopy History of repair of rectocele S/P breast biopsy S/P section S/P cholecystectomy S/P hysterectomy S/P implantation of urinary electronic stimulator device Family History Father , Age 64 No problems noted. Mother , Age 61 No problems noted. Other Coronary heart disease Denies family history of Ovarian cancer Prostate cancer Crohn's disease Breast cancer Lung cancer Colorectal cancer Social History Smoking Status: Never smoker Second Hand Exposure: No; Hx Alcohol Use: No Hx Substance Use: No Preferred Language: Lithuanian Communication Ability: Effective Visual Impairment: No Limitations Hearing Ability: Normal Editing Computer Publisher Required: No Beliefs That Will Affect Care: None marital status: / Current Living Situation: Significant Other Current Living Situation Comment: lives with Calderon Cordoba life partner current occupational status: retired Feels Safe at Home: Yes Safety Concerns: Feels Safe At This Time Childhood Exposure to Second-Hand Smoke: No Dental Care, Regularly: Yes Physical Activity Frequency: 1-2 Times per Week Physical Activity Frequency Comment: physical therapy Seatbelt Use: always Sunscreen Use: Yes Assistive Devices: Cane, Denture - Upper, Glasses and Walker Review of Systems Review of Systems: All systems reviewed & are unremarkable except as noted in Subjective Physical Exam Physical Exam: GENERAL : No acute distress EYES: No icterus, gaze conjugate NOSE: No evidence of epistaxis MOUTH: No lesions or candidiasis NECK: Supple LUNGS: CTA B/L, no wheezes, rales or rhonchi HEART: Irregular, irregular rate is at 105 bpm ABDOMEN: Soft, NT, ND, BS Present EXTREMITIES: +2 bilateral LE edema, pedal pulses intact and equal bilaterally, lower extremity lesions are healing on both legs. H/O scabies. No evidence NEURO: A&OX3 Results & Data Results & Data ([facility]) Vital Signs (Past 12 Hours) Vital Signs Temp Pulse Pulse Resp BP BP Pulse Ox 12/04/20 17:28 105 H 121/76 12/04/20 16:14 118 H 118 H 16 120/87 99 12/04/20 15:14 102 H 18 103/63 98 12/04/20 15:12 20 100 12/04/20 15:11 102 H 98 12/04/20 12:34 35.8 C L 106 H 20 127/78 98 Laboratory Results 12/04/20 15:23 12/04/20 15:23 Diagnostic Findings Chest X-Ray 12/04/20 15:03 XR chest 1V portable CLINICAL HISTORY: Shortness of breath. COMPARISON STUDY: Chest radiograph November 24, 2020. FINDINGS: Lung volumes are normal. Lungs are clear. There is no pneumothorax or pleural effusion. Cardiomegaly is unchanged. Mediastinal contours are normal. There is no evidence for pulmonary edema. IMPRESSION: No acute cardiopulmonary findings. No change in appearance of the chest. ACT 112: Negative or not required by law. Electronically signed by: Jeremy Gabriel M.D. 12/04/2020 3:32 PM Medications Administered Metoprolol tartrate 5 mg IV x1 Metoprolol tartrate 2.5 mg IV x1 ECG Additional Comments: EKG from 12/04/2020 at 15: 24 Impression: Reviewed by me. Appears to be atrial fibrillation with rapid ventricular response with a rate of 119 bpm. Patient has a QT of 360 ms and a QTC of 506 ms. EKG from 11/24/2020 appears to be similar with no significant ST changes. Code Status & VTE Plan Code Status CODE STATUS reviewed extensively with patient. She desires to be a level I full resuscitation including cardiac compressions and intubation with mechanical ventilation if needed. VTE Prophylaxis Plan VTE Prophylaxis will be ordered: Yes Supervising Physician Co-Signing Physician Notes I personally saw and examined the patient. I verified all olivarez points and agree with Jorge Tobar PA-C with the following exceptions and/or additions: 85 year old female admission for worsening shortness of breath and leg swelling O/E HS - tachycardia, irregular, CTAB - bibasal reduced breath sounds, 1+ b/l pedal edema, leg erythema improved from when I saw her on prior admission. A/P Acute on chronic heart failure with preserved ejection fraction - mostly right sided, switch Lasix to Bumex 2g IV BID, consult cardiology Atrial fibrillation with RVR - continue metoprolol succinate 150mg PO BID, anticoagulation with apixaban PG Care Time/CCT Total # of Minutes Spent Total Time Spent with Patient: Total time spent is greater than 50% in coordination of care (as documented) at patient's floor/unit and/or counseling patient: 60 minutes Coding Level of Care Code INT OBSERVATION CARE 70M LVL 3 Diagnoses Atrial fibrillation I48.91 Atrial fibrillation type: unspecified Chronic CHF I50.812 Heart failure type: right-sided Chronic kidney disease (CKD) N18.9 H/O scabies Z86.19 Bilateral edema of lower extremity R60.0 History of gout Z87.39 Venous insufficiency of both lower extremities I87.2 CAD (coronary artery disease) I25.10 GERD (gastroesophageal reflux disease) K21.9 Esophagitis presence: esophagitis presence not specified COPD (chronic obstructive pulmonary disease) J44.9 Hypothyroidism E03.9 Hypothyroidism type: unspecified Obstructive sleep apnea G47.33 Anemia D64.9 Anemia type: unspecified type Ambulatory dysfunction R26.2 Diabetic peripheral neuropathy E11.42 Macular degeneration H35.30 DVT prophylaxis Z29.9 Diabetes mellitus, type II E11.9 Time Spent (min) 60 (1) Chronic CHF Heart failure type: right-sided Qualified Code(s): I50.812 - Chronic right heart failure (2) Anemia Anemia type: unspecified type Qualified Code(s): D64.9 - Anemia, unspecified (3) Atrial fibrillation Atrial fibrillation type: unspecified Qualified Code(s): I48.91 - Unspecified atrial fibrillation (4) Hypothyroidism Hypothyroidism type: unspecified Qualified Code(s): E03.9 - Hypothyroidism, unspecified (5) GERD (gastroesophageal reflux disease) Esophagitis presence: esophagitis presence not specified Qualified Code(s): K21.9 - Gastro-esophageal reflux disease without esophagitis
[2020-12-04] MEDS ORDERED: ONDANSETRON INJ 2 MG/ML 2 ML VIAL IV PRN (20:28)
[2020-12-04] MEDS ORDERED: GLUCOSE 10 TABS/TUBE PO PRN (20:28)
[2020-12-04] MEDS ORDERED: MAGNESIUM HYDROXIDE SUSP 30 ML UDC PO PRN (20:28)
[2020-12-04] MEDS ORDERED: CARBOHYDRATES FOR HYPOGLYCEMIA PO PRN (20:28)
[2020-12-04] MEDS ORDERED: POLYETHYLENE (MIRALAX) 17 GM PACK PO PRN (20:28)
[2020-12-04] MEDS ORDERED: GLUCOSE 40% GEL 15 GM TUBE PO PRN (20:28)
[2020-12-04] MEDS ORDERED: DEXTROSE 50% 50 ML SYRINGE IV PRN (20:28)
[2020-12-04] MEDS ORDERED: GLUCAGON FOR INJ 1 MG VIAL SQ PRN (20:28)
[2020-12-04] MEDS ORDERED: FLUTICASONE PROPIONATE NA SPR 16 GM BTL NAE PRN (20:28)
[2020-12-04] MEDS ORDERED: PHARMACY GLYCEMIC MGMT CONSULT PRN (20:28)
[2020-12-04] MEDS ORDERED: ALBUTEROL HFA 8 GM INHALER INH PRN (20:43)
[2020-12-04] MEDS ORDERED: MAGNESIUM OXIDE 400 MG TAB PO SCH (21:00)
[2020-12-04] MEDS: INSULIN ASPART 100 UNITS/ML 3 ML PEN SC SCH (21:27)
[2020-12-04] MEDS: ACETAMINOPHEN 500 MG TAB PO SCH (22:39)
[2020-12-04] MEDS: BUMETANIDE 2 MG in SYRINGE 0 ML IV SCH (22:41)
[2020-12-04] MEDS: METOPROLOL SUCC 50MG EXT REL TAB PO SCH (22:45)
[2020-12-04] MEDS: TRIAMCINOLONE ACET 0.1% CR 15 GM TUBE EXT SCH (22:45)
[2020-12-04] MEDS: APIXABAN 2.5 MG TAB PO SCH (22:46)
[2020-12-04] MEDS: INSULIN GLARGINE SOLOSTAR 100 UNITS/ML 3 ML PEN SQ SCH (22:47)
[2020-12-04] MEDS: POTASSIUM CHLORIDE 10 MEQ TABCR PO SCH (22:47)
[2020-12-05] MEDS: DICLOFENAC SOD 1% GEL 100 GM TUBE EXT PRN ×2 (03:02→09:08)
[2020-12-05] MEDS: LEVOTHYROXINE SODIUM 50 MCG TABLET PO SCH (05:52)
--- NOTE | 2020-12-05 06:03 | Electrocardiogram Report ---
Test Reason : Blood Pressure : / mmHG Vent. Rate : 119 BPM Atrial Rate : 187 BPM P-R Int : 000 ms QRS Dur : 078 ms QT Int : 360 ms P-R-T Axes : 000 029 181 degrees QTc Int : 506 ms Atrial fibrillation with rapid ventricular response Low voltage QRS T wave abnormality, consider lateral ischemia Abnormal ECG When compared with ECG of 24-NOV-2020 05:18, No significant change was found Confirmed by Harvey Rodas ([id number]) on 12/05/2020 6:03:40 AM Referred By: REFERRED SELF Confirmed By:Harvey Rodas
[2020-12-05 07:08] LABS: Hematocrit (blood only) 26.8 % (37-47); Mean Corpuscular Hemoglobin 33.5 pg (25-34); Mean Corpuscular Hgb Conc 29.9 g/dL (32-36); Mean Corpuscular Volume 112.1 fL (80-100); RDW Coefficient of Variation 25.1 % (11.5-14.5); RDW Standard Deviation 93.2 fL (36.4-46.3); Red Blood Count 2.39 M/uL (4.2-5.4); White Blood Count 5.45 K/uL (4.8-10.8)
[2020-12-05 07:38] LABS: Anisocytosis Present; Basophils # (auto) 0.02 K/uL (0-0.2); Basophils % (auto) 0.4 %; Eosinophils # (auto) 0.21 K/uL (0-0.5); Eosinophils % (auto) 3.9 %; Immature Granulocytes # (auto) 0.02 K/uL (0.00-0.02); Immature Granulocytes % (auto) 0.4 %; Lymphocytes # (auto) 0.94 K/uL (1.2-3.4); Lymphocytes % (auto) 17.2 %; Microcytosis Present; Monocytes # (auto) 0.55 K/uL (0.11-0.59); Monocytes % (auto) 10.1 %; Neutrophils # (auto) 3.71 K/uL (1.4-6.5); Ovalocytes 1+; Platelet Count 282 K/uL (130-400); Polychromasia 1+; Schistocytes 1+; Tear Drop Cells 1+
[2020-12-05 07:43] LABS: BUN Creatinine Ratio 24.6 (10-20); Calcium 8.6 mg/dl (8.5-10.1); Creatinine Clr Calc Pharmacy 19.5 ml/min; Est GFR (African American) 26.9 ml/min; Est GFR (Non-African American) 23.2 ml/min; Potassium 3.9 mmol/L (3.5-5.1)
[2020-12-05] MEDS ORDERED: DICLOFENAC SOD 1% GEL 100 GM TUBE EXT SCH (09:00)
[2020-12-05] MEDS: POTASSIUM CHLORIDE 10 MEQ TABCR PO SCH ×2 (09:06→21:09)
[2020-12-05] MEDS: APIXABAN 2.5 MG TAB PO SCH ×2 (09:06→21:08)
[2020-12-05] MEDS: METOPROLOL SUCC 50MG EXT REL TAB PO SCH ×2 (09:06→21:08)
[2020-12-05] MEDS: PANTOprazole 40 MG TAB PO SCH (09:07)
[2020-12-05] MEDS: allopurinoL 100 MG TAB PO SCH (09:07)
[2020-12-05] MEDS: CHOLECALCIFEROL 1,000 UNITS 25 MCG TAB PO SCH (09:07)
[2020-12-05] MEDS: DULoxetine HCL 60 MG CAP PO SCH (09:07)
[2020-12-05] MEDS: CLOPIDOGREL BISULFATE 75 MG TAB PO SCH (09:07)
[2020-12-05] MEDS: ISOSORBIDE MONO EXTENDED REL 30 MG TABCR PO SCH (09:07)
[2020-12-05] MEDS: TRIAMCINOLONE ACET 0.1% CR 15 GM TUBE EXT SCH ×2 (09:08→23:03)
[2020-12-05] MEDS: BUMETANIDE 2 MG in SYRINGE 0 ML IV SCH ×2 (09:08→17:41)
[2020-12-05 09:09] LABS: Estimated Average Glucose 100 mg/dl; Hemoglobin A1C 5.1 % (4.5-5.6)
[2020-12-05] MEDS: INSULIN ASPART 100 UNITS/ML 3 ML PEN SC SCH ×4 (09:09→20:18)
--- NOTE | 2020-12-05 10:04 | Cardiology Consultation ---
Date of Consultation December 05, 2020 Assessment & Plan (1) Permanent atrial fibrillation with rapid ventricular response: Mrs. Porter is an 85 year old female with a history of Chronic Diastolic CHF, Severe Pulmonary Hypertension, CAD s/p LAD Stent, Permanent Atrial Fibrillation, CAD, Mild to Moderate Mitral Regurgitation, Moderate to Severe Tricuspid Regurgitation, Type 2 Diabetes Mellitus, Dyslipidemia, Hypertension, Untreated BETHANY, COPD, CKD, Hypothyroidism, GERD, Gout, Hemolytic Anemia, and Macular Degeneration who was admitted 12/04/20 after presenting to [facility] ER with SOB, weakness, worsening leg edema, and a 5.5 pound weight gain over the preceding 24 hours. Her edematous legs are painful to the degree that she could not sleep. In the ER -- EKG showed A-Fib at 119 bpm, and her Pro-BNP was elevated at 8311 pg/mL. CXR showed cardiomegaly but no pulmonary edema. She is markedly anemic as well with a Hgb of 8.5 g/dL and a Hgb of 8.0 g/dL on this morning's labs. Cardiac enzymes are negative. Patient admitted to Telemetry with diagnoses of Rapid A-Fib and Acute on Chronic Diastolic CHF. At this point, she has a negative fluid balance of 625 mL. Her heart rate has improved, she remains in atrial fibrillation with heart rates in the 80s and 90s currently. Patient continues to complain painful sensitive legs along with the edema. Still feels mildly short of breath, and cannot lie flat to sleep. Her general weakness may have improved as well. No angina pectoris or anginal equivalent symptoms. 1. Continue Metoprolol Succinate ER 150 mg b.i.d.. 2. Add Digoxin 125 mcg every other day. 3. Continue Eliquis 2.5 mg b.i.d.. (2) Chronic diastolic congestive heart failure: She does not appear to be grossly hypervolemic. -- Monitor daily I&O's, body weights. -- Continue Bumex 2 mg b.i.d.. -- Continue KCl 10 mEq b.i.d.. -- Continue Magnesium Oxide 400 mg b.i.d.. -- Low sodium diet. (3) CAD (coronary artery disease): Asymptomatic despite faster HR's -- Continue beta abilio, Imdur ER, and Plavix. (4) Severe pulmonary hypertension: Patient was previously on CPAP, but has not used her CPAP unit in over 20 years. She is supposed to have a sleep study performed in order to qualify for CPAP. This is likely contributing to her pulmonary hypertension. (5) Obstructive sleep apnea: Repeat sleep study to see if qualifies for CPAP. History of Present Illness Reason for Consultation: -- Permanent Atrial Fibrillation with Elevated V-Rate. -- Diastolic CHF. Requesting Physician: Dm Tsang MD Attending Physician: Nate Roland MD History of Present Illness Mrs. Porter is an 85 year old female with a history of Chronic Diastolic CHF, Severe Pulmonary Hypertension, CAD s/p LAD Stent, Permanent Atrial Fibrillation, CAD, Mild to Moderate Mitral Regurgitation, Moderate to Severe Tricuspid Regurgitation, Type 2 Diabetes Mellitus, Dyslipidemia, Hypertension, Untreated BETHANY, COPD, CKD, Hypothyroidism, GERD, Gout, Hemolytic Anemia, and Macular Degeneration who was admitted 12/04/20 after presenting to [facility] ER with SOB, weakness, worsening leg edema, and a 5.5 pound weight gain over the preceding 24 hours. Her edematous legs are painful to the degree that she could not sleep. In the ER -- EKG showed A-Fib at 119 bpm, and her Pro-BNP was elevated at 8311 pg/mL. CXR showed cardiomegaly but no pulmonary edema. She is markedly anemic as well with a Hgb of 8.5 g/dL and a Hgb of 8.0 g/dL on this morning's labs. Cardiac enzymes are negative. Patient admitted to Telemetry. Patient is followed in [facility] and was seen there on 12/03/20. She was given IV Lasix 80 mg during that office visit, and she subsequently was taken off of oral Lasix and started on oral Bumex. Unfortunately, her weight continued to climb. Since being admitted she has a negative fluid balance of 625 mL. Her heart rate has improved, she remains in atrial fibrillation with heart rates in the 80s and 90s currently. Patient continues to complain painful sensitive legs along with the edema. Still feels mildly short of breath, and cannot lie flat to sleep. Her general weakness may have improved as well. Patient specifically denies any chest pain, heaviness, tightness, pressure, or discomfort. She denies any exertional neck, jaw, back, or arm pain. She denies any palpitations, syncope, or near syncope. Patient was previously on CPAP, but has not used her CPAP unit in over 20 years. She is supposed to have a sleep study performed in order to qualify for CPAP. This is likely contributing to her pulmonary hypertension. ECHOCARDIOGRAM 08/15/20: -- Normal LV size and systolic function. -- LVEF 60% to 65%, no wall motion abnormalities. -- Mild AI. -- Mild to moderate MR. -- Moderate to severe TR. -- Severe pulmonary hypertension, estimated RVSP 85 mmHg. -- Compared to Echo 04/14/19: Severe pulmonary hypertension is now present. Patient has also had the following recent studies: 1. Cardiac Catheterization 12/06/18: Severe single vessel coronary artery disease - 50% ostial LAD stenosis. - 90+% acute appearing proximal LAD in-stent restenosis. 50% to 60% earlymid segment after prior stent - diffuse 60% late- mid LAD disease. Borderline intracardiac filling pressure. Successful PCI of proximal to mid LAD with single drug-eluting stent overlapping prior stent (2.5 x 18 mm Xience Aditi; postdilated with 2.75 NC 2. Echocardiogram 08/15/18- Normal left ventricular systolic function 55-60%. RV mildly dilated. LA severely dilated. RA mod dilated. Moderate to severe MR. RVSP elevated at 30-40 mmHg. 3. Echo 04/14/19: LV size, wall motion, and systolic function are normal. EF 65- 70%. Mild MR. Mild TR. HISTORICAL BACKGROUND: Patient was admitted in [facility] in March 2018 with atrial fibrillation with RVR, elevated troponin, pneumonia, UTI, and septic shock requiring intubation and pressors. She underwent an echo during admission which showed severely reduced LV systolic function with an estimated EF of 20-25% and findings consistent with Takotsubo's cardiomyopathy. Repeat echo during admission showed normalization of her LV systolic function. She was admitted to [facility] from 08/14/2018 through 08/21/2018 with increased lower extremity edema and ulcerations. She was diuresed with IV Lasix with net loss of 6 L, and she was also treated with antibiotic therapy for her ulcerations. Echo during admission noted normal LV systolic function and moderate to severe MR. She was admitted from 12/06/18 through 12/10/18 for atrial fibrillation with RVR and NSTEMI now s/p PCI. Cardiac catheterization at the time of presentation demonstrated a 90% restenosis. Troponin peaked at 1.86. Intervention was required with URBANO to an in-stent restenoses within the LAD. She was initially given IVF for PATY and then developed congestive heart failure. She was diuresed with IV Lasix for 4 L. She was transitioned to oral Lasix and discharged her home dose of 80 mg BID. She was then re-admitted 12/23/18 through 12/29/18 for UTI with bacteremia. Upon admission she did not appear significantly volume overloaded and with a creatinine of 2.0 her Lasix was held. She developed shortness of breath later in the stay and her Lasix was restarted. Creatinine improved with diuresis. She was discharged home on Lasix 40 mg BID. She was hospitalized from 05/03/20 through 05/05/20 for toxic encephalopathy due to medications. Patient recently started taking Morphine in the setting of CKD. She improved significantly after stopping Morphine. She was hospitalized from 07/05/20 through 07/07/20 for metabolic encephalopathy with acute diastolic CHF, hypoglycemia, hypokalemia, and hyperbilirubinemia. She was referred to the ED from her PCP for jaundice and increased confusion. She denied SOB, weight gain, or edema. Billirubin was elevated at 5.2. Her BNP was elevated and + pulmonary edema on CXR therefore she was diuresed with Lasix 40 mg IV. Hematology was consulted, recommended ongoing outpatient follow up. Avoid Tylenol. She was discharged on her home dose of Lasix 80 mg BID. She was also admitted from 08/13/20 through 08/17/20 for ambulatory dysfunction due to severe spinal stenosis and macrocytic anemia. Patient presented with leg weakness, low urine output, and several recent falls. Patient was offered spinal surgery but has decided to pursue a non surgical approach. She was also found to have a right calcaneal fracture. She was placed a walking boot for 6-8 weeks. Hgb was 7.7 on arrival and she received 1 unit PRBCs. Stools heme +. Creatinine was slightly elevated so Lasix was held x 2 days on discharge. She was discharged to [facility]. She was evaluated on 09/07/20 with the heart failure program. She was euvolemic. She continued Lasix 80 mg in am/40 mg in pm. She was then admitted from 10/03/20 through 10/05/20 for altered mental status. This is likely secondary to polypharmacy. She was bradycardic. Digoxin was discontinued. Metoprolol was held during admission and then on discharge as well. She was well compensated from a volume standpoint. Outpatient sleep study was recommended on discharge. She was admitted from 11/24/20 through 11/27/20 for acute on chronic diastolic CHF and cellulitis. She presented with leg swelling. Her weight was stable at 162 lb. She denied shortness of breath and orthopnea. She had a right lower extremity wound. She was treated with Lasix 80 mg IV BID and was discharged on Lasix 80 mg PO BID. She was also treated with Doxycycline and Keflex x 7 days. Wound care did evaluate her during hospitalization. Allergies Allergy/AdvReac Type Severity Reaction Status Date / Time shellfish derived Allergy Severe ANAPHYLAXIS Verified 12/14/20 10:15 iodine Allergy Intermediate ANAPHYLAXIS Verified 12/14/20 10:15 lisinopril Allergy Unknown Unknown Verified 12/14/20 10:15 oxybutynin [From Ditropan] Allergy Unknown Unknown Verified 12/14/20 10:15 sertraline [From Zoloft] Allergy Unknown Unknown Verified 12/14/20 10:15 paroxetine AdvReac Mild GI UPSET Verified 12/14/20 10:15 Home Medications Medication Instructions Recorded Confirmed Type albuterol sulfate 90 mcg/actuation 1 - 2 puffs INH Q4H PRN #6.7 gm 04/26/19 0 12/14/20 Rx aerosol inhaler (ProAir HFA) isosorbide mononitrate 30 mg 30 mg PO QAM #90 tab 04/30/20 12/14/20 Rx tablet,extended release 24 hr acetaminophen 650 mg 1,300 mg PO HS tab 05/11/20 12/14/20 History tablet,extended release (Tylenol Arthritis Pain) cholecalciferol (vitamin D3) 25 2,000 unit PO QAM tab 05/11/20 12/14/20 History mcg (1,000 unit) tablet (Vitamin D3) insulin aspart U-100 100 unit/mL 7 - 10 unit SUBCUT TIDM #45 ml 06/01/20 12/14/20 Rx (3 mL) subcutaneous pen (Novolog Flexpen U-100 Insulin aspart) apixaban 2.5 mg tablet (Eliquis) 2.5 mg PO BID #180 tab 08/06/20 12/14/20 Rx magnesium oxide 400 mg PO BID #90 tab 10/02/20 12/14/20 Rx allopurinol 100 mg tablet 300 mg PO QAM 11/07/20 12/14/20 History (Zyloprim) clopidogrel 75 mg tablet (Plavix) 75 mg PO QAM 11/07/20 12/14/20 History duloxetine 60 mg capsule,delayed 60 mg PO QAM 11/07/20 12/14/20 History release (Cymbalta) fluticasone propionate 50 1 spray INTRANASAL BID PRN 11/07/20 12/14/20 History mcg/actuation nasal spray,suspension (Flonase Allergy Relief) levothyroxine 50 mcg tablet 50 mcg PO DAILYBB 11/07/20 12/14/20 History (Synthroid) mirtazapine 15 mg tablet (Remeron) 15 mg PO QAM 11/07/20 12/14/20 History pantoprazole 40 mg tablet,delayed 40 mg PO QAM 11/07/20 12/14/20 History release (Protonix) potassium chloride 20 mEq 10 meq PO BID 11/07/20 12/14/20 History tablet,extended release (K-Tab) insulin glargine 100 unit/mL (3 20 unit SUBCUT HS #0 ml 11/27/20 12/14/20 Rx mL) subcutaneous pen (Lantus Solostar U-100 Insulin) bumetanide 2 mg tablet 2 mg PO BID #60 tab 12/03/20 12/14/20 Rx capsaicin 0.033 % topical cream 1 applic EXT TID PRN #56.6 g 12/07/20 12/14/20 Rx (Zostrix) digoxin 125 mcg (0.125 mg) tablet 125 mcg PO Q2D@1600 #15 tab 12/07/20 12/14/20 Rx (Digitek) metoprolol succinate 50 mg 150 mg PO BID tab 12/14/20 12/14/20 History tablet,extended release 24 hr (Toprol XL) Patient History Medical History Anemia Chronic macrocytic Asthma Atrial fibrillation CAD (coronary artery disease) Cerebrovascular disease Chronic diastolic congestive heart failure Chronic kidney disease (CKD) Stage III, baseline Cr 1.3-1.5mg/dL. Complicated with normocytic anemia and secondary hyperparathyroidism. Followed by nephrology. 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 Cannot perform MRI due to bladder implant. Followed by pain management. Epidural steroid injections with improvement of pain. Evaluated by ortho, decided against surgery. Managed with gabapentin 300mg TID + APAP PRN + tapentadol 50mg BID PRN GERD (gastroesophageal reflux disease) History of gout Managed with allopruinol daily. No recent gouty attacks. Uric acid suppressed 3.4 mg/dl (12/22) Hyperlipidemia Secondary prevention with moderate intensity statin (atorvastatin 20mg daily) Hypertension Hypothyroidism Lichen planus Macular degeneration Mitral regurgitation Neurologic gait dysfunction Obstructive sleep apnea Long standing. Managed with CPAP nightly. CPAP titration polysomnography (07/14). Sensorineural hearing loss (SNHL) of both ears Venous insufficiency of both lower extremities Surgical History H/O colonoscopy History of repair of rectocele S/P breast biopsy S/P section S/P cholecystectomy S/P hysterectomy S/P implantation of urinary electronic stimulator device Family History Father , Age 64 No problems noted. Mother , Age 61 No problems noted. Other Coronary heart disease Denies family history of Ovarian cancer Prostate cancer Crohn's disease Breast cancer Lung cancer Colorectal cancer Social History Smoking Status: Never smoker Second Hand Exposure: No; Hx Alcohol Use: No Hx Substance Use: No Preferred Language: Bangladeshi Communication Ability: Effective Visual Impairment: No Limitations Hearing Ability: Normal Permit Technician Required: No Beliefs That Will Affect Care: None marital status: Life Partner Current Living Situation: Significant Other Current Living Situation Comment: lives with Calderon Cordoba life partner current occupational status: retired Feels Safe at Home: Yes Childhood Exposure to Second-Hand Smoke: No Dental Care, Regularly: Yes Physical Activity Frequency: 1-2 Times per Week Physical Activity Frequency Comment: physical therapy Seatbelt Use: always Sunscreen Use: Yes Assistive Devices: Glasses Physical Exam Physical Exam: GENERAL: Patient in no acute distress. She has a pale complexion. HEENT: Head is atraumatic, normocephalic. EOM's intact. Facies symmetric. No perioral cyanosis. NECK: JVD is present. JVP is elevated. Carotid upstrokes are + 2 bilaterally. No bruits are noted. CHEST/LUNGS: Clear to auscultation throughout all lung ta. No wheezes, rales, or crackles. CVS: S1 and S2 are irregularly irregular at 88 bpm without obvious murmurs, gallops, or rubs. PMI is nondisplaced. No lifts, heaves, or thrills. No abdominal aortic or renal bruits. ABDOMINAL EXAM: Bowel sounds are present. No masses, organomegaly, or tenderness. EXTREMITIES: No clubbing or cyanosis. +2 to 3 BL LE edema. Intact radial pulses bilaterally. NEUROLOGIC EXAM: Patient is awake, alert, and oriented. Pleasant and cooperative. Answers questions appropriately. Speech is clear. Telemetry shows atrial fibrillation with rates in the 80s and 90s overnight and so far today. EKG 12/05/20: -- Atrial fibrillation at 94 bpm with T-wave inversion in the lateral leads. -- Prolonged corrected QT interval. Results & Data ([facility]) Vital Signs (Past 12 Hours) Vital Signs Temp Pulse Resp BP Pulse Ox 12/05/20 07:17 36.4 C L 82 19 131/85 95 12/05/20 03:47 36.6 C 101 H 18 118/83 99 12/04/20 23:35 36.4 C L 73 18 124/77 97 Laboratory Results Laboratory Results - last 24 hr 12/04/20 12/04/20 12/04/20 13:15 15:23 15:23 WBC 6.05 RBC 2.54 L Hgb 8.5 L Hct 28.5 L MCV 112.2 H MCH 33.5 MCHC 29.8 L RDW Std Deviation 95.1 H RDW Coeff of Talia 25.5 H Plt Count 333 Immature Gran % (Auto) 0.8 Neut % (Auto) 73.0 Lymph % (Auto) 12.7 [place] % (Auto) 9.6 Eos % (Auto) 3.6 Baso % (Auto) 0.3 Neut # (Auto) 4.41 Lymph # (Auto) 0.77 L [place] # (Auto) 0.58 Eos # (Auto) 0.22 Baso # (Auto) 0.02 Immature Gran # (Auto) 0.05 H Absolute Nucleated RBC 0.14 H Nucleated RBC % (auto) 2.3 Platelet Estimate Normal Giant Platelets 1+ Polychromasia 2+ Poikilocytosis Present Anisocytosis Present Microcytosis Present Macrocytosis Present Tear Drop Cells Ovalocytes 2+ Schistocytes Occasional PT 13.7 H INR 1.4 H APTT 30.8 PTT Ratio 1.2 Sodium Potassium Chloride Carbon Dioxide Anion Gap BUN Creatinine Est Cr Clr Drug Dosing Est GFR ( Amer) Est GFR (Non-Af Amer) BUN/Creatinine Ratio Glucose POC Glucose Estimat Average Glucose Hemoglobin A1c Calcium Magnesium Total Bilirubin AST ALT Alkaline Phosphatase Troponin I NT-Pro-B Natriuret Pep Total Protein Albumin Globulin Albumin/Globulin Ratio Procalcitonin Urine Color Yellow Urine Appearance Clear Urine pH 7.0 Ur Specific [place] 1.009 Urine Protein Negative Urine Glucose (UA) Negative Urine Ketones Negative Urine Blood Negative Urine Nitrite Negative Urine Bilirubin Negative Urine Urobilinogen Negative Ur Leukocyte Esterase Negative COVID-19 Eval Order SARS-CoV-2 (PCR) 12/04/20 12/04/20 12/04/20 15:23 15:23 17:40 WBC RBC Hgb Hct MCV MCH MCHC RDW Std Deviation RDW Coeff of Talia Plt Count Immature Gran % (Auto) Neut % (Auto) Lymph % (Auto) [place] % (Auto) Eos % (Auto) Baso % (Auto) Neut # (Auto) Lymph # (Auto) [place] # (Auto) Eos # (Auto) Baso # (Auto) Immature Gran # (Auto) Absolute Nucleated RBC Nucleated RBC % (auto) Platelet Estimate Giant Platelets Polychromasia Poikilocytosis Anisocytosis Microcytosis Macrocytosis Tear Drop Cells Ovalocytes Schistocytes PT INR APTT PTT Ratio Sodium 137 Potassium 4.4 Chloride 100 Carbon Dioxide 30 Anion Gap 8.0 BUN 44 H Creatinine 2.08 H Est Cr Clr Drug Dosing Not Reportable Est GFR ( Amer) 24.9 Est GFR (Non-Af Amer) 21.5 BUN/Creatinine Ratio 21.3 H Glucose 163 H POC Glucose Estimat Average Glucose Hemoglobin A1c Calcium 9.0 Magnesium 2.5 H Total Bilirubin 3.3 H AST 57 H ALT 62 Alkaline Phosphatase 254 H Troponin I < 0.015 NT-Pro-B Natriuret Pep 8311 H Total Protein 7.1 Albumin 3.6 Globulin 3.5 Albumin/Globulin Ratio 1.0 Procalcitonin Urine Color Urine Appearance Urine pH Ur Specific [place] Urine Protein Urine Glucose (UA) Urine Ketones Urine Blood Urine Nitrite Urine Bilirubin Urine Urobilinogen Ur Leukocyte Esterase COVID-19 Eval Order Covid19 at [facility] SARS-CoV-2 (PCR) 12/04/20 12/04/20 12/05/20 17:40 20:14 06:27 WBC 5.45 RBC 2.39 L Hgb 8.0 L Hct 26.8 L MCV 112.1 H MCH 33.5 MCHC 29.9 L RDW Std Deviation 93.2 H RDW Coeff of Talia 25.1 H Plt Count 282 Immature Gran % (Auto) 0.4 Neut % (Auto) 68.0 Lymph % (Auto) 17.2 [place] % (Auto) 10.1 Eos % (Auto) 3.9 Baso % (Auto) 0.4 Neut # (Auto) 3.71 Lymph # (Auto) 0.94 L [place] # (Auto) 0.55 Eos # (Auto) 0.21 Baso # (Auto) 0.02 Immature Gran # (Auto) 0.02 Absolute Nucleated RBC Nucleated RBC % (auto) Platelet Estimate Giant Platelets Polychromasia 1+ Poikilocytosis Anisocytosis Present Microcytosis Present Macrocytosis Tear Drop Cells 1+ Ovalocytes 1+ Schistocytes 1+ PT INR APTT PTT Ratio Sodium Potassium Chloride Carbon Dioxide Anion Gap BUN Creatinine Est Cr Clr Drug Dosing Est GFR ( Amer) Est GFR (Non-Af Amer) BUN/Creatinine Ratio Glucose POC Glucose 137 H Estimat Average Glucose Hemoglobin A1c Calcium Magnesium Total Bilirubin AST ALT Alkaline Phosphatase Troponin I NT-Pro-B Natriuret Pep Total Protein Albumin Globulin Albumin/Globulin Ratio Procalcitonin Urine Color Urine Appearance Urine pH Ur Specific [place] Urine Protein Urine Glucose (UA) Urine Ketones Urine Blood Urine Nitrite Urine Bilirubin Urine Urobilinogen Ur Leukocyte Esterase COVID-19 Eval Order SARS-CoV-2 (PCR) NEGATIVE 12/05/20 12/05/20 12/05/20 06:27 06:27 06:27 WBC RBC Hgb Hct MCV MCH MCHC RDW Std Deviation RDW Coeff of Talia Plt Count Immature Gran % (Auto) Neut % (Auto) Lymph % (Auto) [place] % (Auto) Eos % (Auto) Baso % (Auto) Neut # (Auto) Lymph # (Auto) [place] # (Auto) Eos # (Auto) Baso # (Auto) Immature Gran # (Auto) Absolute Nucleated RBC Nucleated RBC % (auto) Platelet Estimate Giant Platelets Polychromasia Poikilocytosis Anisocytosis Microcytosis Macrocytosis Tear Drop Cells Ovalocytes Schistocytes PT INR APTT PTT Ratio Sodium 139 Potassium 3.9 Chloride 103 Carbon Dioxide 31 Anion Gap 5.0 BUN 48 H Creatinine 1.95 H Est Cr Clr Drug Dosing 19.5 Est GFR ( Amer) 26.9 Est GFR (Non-Af Amer) 23.2 BUN/Creatinine Ratio 24.6 H Glucose 72 POC Glucose Estimat Average Glucose 100 Hemoglobin A1c 5.1 Calcium 8.6 Magnesium Total Bilirubin AST ALT Alkaline Phosphatase Troponin I NT-Pro-B Natriuret Pep Total Protein Albumin Globulin Albumin/Globulin Ratio Procalcitonin 0.23 Urine Color Urine Appearance Urine pH Ur Specific [place] Urine Protein Urine Glucose (UA) Urine Ketones Urine Blood Urine Nitrite Urine Bilirubin Urine Urobilinogen Ur Leukocyte Esterase COVID-19 Eval Order SARS-CoV-2 (PCR) Diagnostic Findings CXR 12/04/20: Lung volumes are normal. Lungs are clear. There is no pneumothorax or pleural effusion. Cardiomegaly is unchanged. Mediastinal contours are normal. There is no evidence for pulmonary edema. IMPRESSION: No acute cardiopulmonary findings. No change in appearance of the chest. Medications Administered Medications albuterol sulfate 90 mcg/actuation aerosol inhaler (ProAir HFA) 1 - 2 puffs INH Q4H PRN #6.7 gm 04/26/19 [Rx Confirmed 12/04/20] isosorbide mononitrate 30 mg tablet,extended release 24 hr 30 mg PO QAM #90 tab 04/30/20 [Rx Confirmed 12/04/20] acetaminophen 650 mg tablet,extended release (Tylenol Arthritis Pain) 1,300 mg PO HS tab 05/11/20 [History Confirmed 12/04/20] cholecalciferol (vitamin D3) 25 mcg (1,000 unit) tablet (Vitamin D3) 2,000 unit PO QAM tab 05/11/20 [History Confirmed 12/04/20] insulin aspart U-100 100 unit/mL (3 mL) subcutaneous pen (Novolog Flexpen U-100 Insulin aspart) 7 - 10 unit SUBCUT TIDM #45 ml 06/01/20 [Rx Confirmed 12/04/20] apixaban 2.5 mg tablet (Eliquis) 2.5 mg PO BID #180 tab 08/06/20 [Rx Confirmed 12/04/20] magnesium oxide 400 mg PO BID #90 tab 10/02/20 [Rx Confirmed 12/04/20] allopurinol 100 mg tablet (Zyloprim) 300 mg PO QAM 11/07/20 [History Confirmed 12/04/20] clopidogrel 75 mg tablet (Plavix) 75 mg PO QAM 11/07/20 [History Confirmed 12/04/20] duloxetine 60 mg capsule,delayed release (Cymbalta) 60 mg PO QAM 11/07/20 [History Confirmed 12/04/20] fluticasone propionate 50 mcg/actuation nasal spray,suspension (Flonase Allergy Relief) 1 spray INTRANASAL BID PRN 11/07/20 [History Confirmed 12/04/20] levothyroxine 50 mcg tablet (Synthroid) 50 mcg PO DAILYBB 11/07/20 [History Confirmed 12/04/20] mirtazapine 15 mg tablet (Remeron) 15 mg PO QAM 11/07/20 [History Confirmed 12/04/20] pantoprazole 40 mg tablet,delayed release (Protonix) 40 mg PO QAM 11/07/20 [History Confirmed 12/04/20] potassium chloride 20 mEq tablet,extended release (K-Tab) 10 meq PO BID 11/07/20 [History Confirmed 12/04/20] cephalexin 250 mg capsule 250 mg PO TID #21 cap 11/27/20 [Rx Confirmed 12/04/20] doxycycline hyclate 100 mg capsule 100 mg PO BID@0700,1900 #14 cap 11/27/20 [Rx Confirmed 12/04/20] insulin glargine 100 unit/mL (3 mL) subcutaneous pen (Lantus Solostar U-100 Insulin) 20 unit SUBCUT HS #0 ml 11/27/20 [Rx Confirmed 12/04/20] triamcinolone acetonide 0.1 % topical cream 1 applic EXT BID 14 Days #30 g 11/27/20 [Rx Confirmed 12/04/20] bumetanide 2 mg tablet 2 mg PO BID #60 tab 12/03/20 [Rx Confirmed 12/04/20] metoprolol succinate 50 mg tablet,extended release 24 hr (Toprol XL) 150 mg PO TID tab 12/03/20 [History Confirmed 12/04/20] Home Medications Acetaminophen (Acetaminophen 500 Mg Tab) 1,000 mg PO HS [facility] Stop: 01/03/21 20:59 Last Admin: 12/04/20 22:39 Dose: 1,000 mg Documented by: Acetaminophen (Acetaminophen 325 Mg Tab) 650 mg PO Q4H PRN PRN Reason: Pain or Fever Stop: 01/03/21 20:27 Albuterol (Albuterol Hfa 8 Gm Inhaler) 1 - 2 puffs INH Q4H PRN PRN Reason: shortness of breath or wheezin Stop: 01/03/21 20:42 Allopurinol (Allopurinol 100 Mg Tab) 100 mg PO [facility] Stop: 01/04/21 08:59 Last Admin: 12/05/20 09:07 Dose: 100 mg Documented by: Apixaban (Apixaban 2.5 Mg Tab) 2.5 mg PO BID [facility] Stop: 01/03/21 20:59 Last Admin: 12/05/20 09:06 Dose: 2.5 mg Documented by: Clopidogrel Bisulfate (Clopidogrel Bisulfate 75 Mg Tab) [facility] [place]: 01/04/21 08:59 Last Admin: 12/05/20 09:07 Dose: 75 mg Documented by: Dextrose (Dextrose 50% 50 Ml Syringe) 25 - 50 ml IV UD PRN; Protocol PRN Reason: Hypoglycemia Protocol Stop: 01/03/21 20:27 Diclofenac Sodium (Diclofenac Sod 1% Gel 100 Gm Tube) 4 gm EXT BID PRN PRN Reason: pain Stop: 01/04/21 02:24 Last Admin: 12/05/20 09:08 Dose: 4 gm Documented by: Digoxin (Digoxin 0.125 Mg Tab) 0.125 mg PO Q2D@1600 [facility] Stop: 01/04/21 15:59 Duloxetine HCl (Duloxetine Hcl 60 Mg Cap) [facility] [place] Stop: 01/04/21 08:59 Last Admin: 12/05/20 09:07 Dose: 60 mg Documented by: Fluticasone Propionate (Fluticasone Propionate Na Spr 16 Gm Btl) 1 sprays SYDNIE BID PRN PRN Reason: Allergic Symptoms Stop: 01/03/21 20:27 Glucagon (Glucagon For Inj 1 Mg Vial) 1 mg SQ UD PRN; Protocol PRN Reason: Hypoglycemia Protocol Stop: 01/03/21 20:27 Glucose (Glucose 10 Tabs/Tube) 4 - 8 tabs PO UD PRN; Protocol PRN Reason: Hypoglycemia Protocol Stop: 01/03/21 20:27 Glucose (Glucose 40% Gel 15 Gm Tube) 15 - 30 gm PO UD PRN; Protocol PRN Reason: Hypoglycemia Protocol Stop: 01/03/21 20:27 Bumetanide 2 mg/ Syringe 8 mls @ 4 mls/min IV BID@0900,1700 [facility] Stop: 01/03/21 20:59 Last Admin: 12/05/20 09:08 Dose: 4 mls/min Documented by: Insulin Aspart (Insulin Aspart 100 Units/Ml 3 Ml Pen) 0 units SC [facility]; Protocol Stop: 01/03/21 20:59 Last Admin: 12/05/20 09:09 Dose: 4 units Documented by: Insulin Glargine (Insulin Glargine Solostar 100 Units/Ml 3 Ml Pen) 15 units SQ [facility]; Protocol Stop: 01/03/21 20:59 Last Admin: 12/04/20 22:47 Dose: 15 units Documented by: Isosorbide Mononitrate (Isosorbide [place] Extended Rel 30 Mg Tabcr) 30 mg PO QAM [facility] Stop: 01/04/21 08:59 Last Admin: 12/05/20 09:07 Dose: 30 mg Documented by: Levothyroxine Sodium (Levothyroxine Sodium 50 Mcg Tablet) 50 mcg PO DAILYBB [facility] Stop: 01/04/21 06:29 Last Admin: 12/05/20 05:52 Dose: 50 mcg Documented by: Magnesium Hydroxide (Magnesium Hydroxide Susp 30 Ml Udc) 30 ml PO Q12H PRN PRN Reason: Constipation Stop: 01/03/21 20:27 Metoprolol Succinate (Metoprolol Succ 50mg Ext Rel Tab) 150 mg PO BID [facility] Stop: 01/03/21 20:59 Last Admin: 12/05/20 09:06 Dose: 150 mg Documented by: Mirtazapine (Mirtazapine Tab 15 Mg Tab) 15 mg PO HS [facility] Stop: 01/04/21 20:59 Miscellaneous (Carbohydrates For Hypoglycemia ) 15 - 30 gm PO UD PRN PRN Reason: Hypoglycemia Protocol Stop: 01/03/21 20:27 Miscellaneous Information (Pharmacy Glycemic Mgmt Consult) 1 ea N/A UD PRN; Protocol PRN Reason: Consult Stop: 01/03/21 20:27 Ondansetron HCl (Ondansetron Inj 2 Mg/Ml 2 Ml Vial) 4 mg IV Q6H PRN PRN Reason: Nausea Stop: 01/03/21 20:27 Pantoprazole Sodium (Pantoprazole 40 Mg Tab) 40 mg PO QAM [facility] Stop: 01/04/21 08:59 Last Admin: 12/05/20 09:07 Dose: 40 mg Documented by: Polyethylene Glycol (Polyethylene (Miralax) 17 Gm Pack) 17 gm PO DAILY PRN PRN Reason: Constipation Stop: 01/03/21 20:27 Potassium Chloride (Potassium Chloride 10 Meq Tabcr) 10 meq PO BID [facility] Stop: 01/03/21 20:59 Last Admin: 12/05/20 09:06 Dose: 10 meq Documented by: Triamcinolone Acetonide (Triamcinolone Acet 0.1% Cr 15 Gm Tube) 1 appln EXT BID [facility] Stop: 01/03/21 20:59 Last Admin: 12/05/20 09:08 Dose: 1 appln Documented by: Vitamin D (Cholecalciferol 1,000 Units 25 Mcg Tab) 2,000 units PO QAM [facility] Stop: 01/04/21 08:59 Last Admin: 12/05/20 09:07 Dose: 2,000 units Documented by: PG Care Time/CCT Total # of Minutes Spent Total Time Spent with Patient: Total time spent is greater than 50% in coordination of care (as documented) at patient's floor/unit and/or counseling patient:45 Coding Level of Care Code 59947 Initial Inpt Care Lvl 3 Diagnoses Permanent atrial fibrillation with rapid ventricular response I48.21 Chronic diastolic congestive heart failure I50.32 CAD (coronary artery disease) I25.10 Severe pulmonary hypertension I27.20 Obstructive sleep apnea G47.33 Time Spent (min) 65
--- NOTE | 2020-12-05 10:31 | Pharmacy Report ---
Pharmacy Glycemic Short Note 2 - Date of Service December 05, 2020 - Glycemic Short BSG Results (Last 24 hours): 12/04/20 12/04/20 12/05/20 15:23 20:14 06:27 Glucose 163 H 72 POC Glucose 137 H OUTPATIENT ANTIDIABETIC REGIMEN: * Novolog 7-10 units with meals * Lantus 20 units HS * A1c 5.2% 10/04/20 ASSESSMENT: * 85 year old female admitted with Afib, type 2 diabetic on basal bolus insulin as outpatient. Will continue basal bolus insulin as inpatient. * Reduced dose of Lantus given last night, fasting BSG 72mg/dl today, continue reduced dose. * Blood sugars at goal, no further changes in CF/CR at this time. PLAN FOR INPATIENT GLYCEMIC CONTROL: * Basal insulin * Lantus 15 units SQ HS * Bolus insulin * NovoLog per scale ACHS or Q6hrs while NPO * Goal Range: Low 110 mg/dL - High 140 mg/dL * Correction Factor: 30 mg/dL/unit * Nutritional / Prandial insulin per carb ratio of 1 unit per 10 grams CHO consumed PLAN FOR DISCHARGE: * to be determined
--- NOTE | 2020-12-05 13:20 | XRay Report ---
XR chest 1V portable CLINICAL HISTORY: CHF with elevated proBNP COMPARISON STUDY: November 27, 2020 FINDINGS: No pneumothorax. No pleural effusion. No large infiltrates or consolidative lesions are seen. Minimal atelectasis is seen at the left base. Cardiomediastinal silhouette is slightly prominent and unchanged since prior. Aorta is calcified. No significant pulmonary vascular congestion.. Osseous structures: unremarkable IMPRESSION: 1. Stable slightly prominent cardiomediastinal silhouette without significant pulmonary vascular con gestion. 2. Minimal atelectasis at the left base ACT 112: Negative or not required by law. The above report was generated using voice recognition software. It may contain grammatical, syntax o r spelling errors. Electronically signed by: Shweta Villanueva DO 12/05/2020 1:18 PM
--- NOTE | 2020-12-05 15:28 | Hospitalist Progress Note ---
Date of Service December 05, 2020 Assessment & Plan (1) Atrial fibrillation: Plan: Rapid rate on admission. Better today with recently increased metoprolol dosing Stable for transfer to med/tele Further management per cardiology Anticoagulation with apixaban (2) Bilateral edema of lower extremity: Plan: Procalcitonin negative. Prior cellulitis I diagnosed on last admission appears resolved. Current erythema consistent with venous stasis Cr improved slightly overnight. Continue Bumex 2mg IV BID. Consult cardiology (3) Venous insufficiency of both lower extremities: Plan: Patient with ongoing lower extremity edema from chronic congestive heart failure No apparent evidence of cellulitis today Continue to follow (4) Chronic CHF: Plan: Acute on chronic. Mostly right sided per my prior notes (5) Diabetes mellitus, type II: Plan: HbA1C 5.1 Appreciate pharmacy management for glycemic control (6) Chronic kidney disease (CKD): Plan: Creatinine 2.08 Baseline creatinine appears to be 1.9-2.0 We are currently increasing diuretics to Bumex 2 mg IV twice daily Follow daily creatinine Follow urine output We will hold off on urinary catheter at this time (7) H/O scabies: Plan: No evidence of mites at this time No indication for isolation at this time Continue triamcinolone topical application twice daily (8) History of gout: Plan: No current acute complaints Continue with maintenance doses of allopurinol (9) CAD (coronary artery disease): Plan: No chest pain or tightness Troponin is negative Continue metoprolol, Imdur, Plavix, Eliquis Follow electrolytes Monitor on telemetry (10) GERD (gastroesophageal reflux disease): Plan: Continue home dose of pantoprazole (11) COPD (chronic obstructive pulmonary disease): Plan: No formal diagnosis and patient has not done any the bronchodilators, ICS, or AC Saturating 99% on room air (12) Hypothyroidism: Plan: Continue levothyroxine TSH 0.607 (13) Obstructive sleep apnea: Plan: Patient with polysomnography exam in 2009 revealed sleep apnea. At that time CPAP titration study was completed and it was recommended the patient be placed on 13 cm of H2O. Patient reports that she has not used CPAP At this time will order CPAP while inpatient at 13 cm of water to be used as tolerated Recommend outpatient polysomnography exam to requalify This is especially important with patient's cardiac history. (14) Anemia: Plan: Chronic hemolytic anemia with macrocytosis Hemoglobin 8.5 with hematocrit of 28% No indication for transfusion at this time Check repeat CBC in the morning No current bleeding or evidence of blood loss (15) Ambulatory dysfunction: Plan: Patient uses a wheelchair and a cane at home as well as a walker Patient states that she is able to ambulate Will admit with ambulation with assistance and fall precautions on the floor (16) Diabetic peripheral neuropathy: Plan: Patient states that she had been on Neurontin in the past but currently is not receiving any Would recommend managing this as an outpatient. (17) Macular degeneration: Plan: Currently not on any outpatient eyedrops Patient reports that she gets injections in her eyes from ophthalmology Further management as an outpatient (18) DVT prophylaxis: Plan: Chronic anticoagulation with apixaban 2.5 mg p.o. twice daily Out of bed as tolerated Ambulate as tolerated Plan: Stable for transfer to [facility]/tele Admission and Anticipated Discharge Date Admission Date: December 04, 2020 Subjective Reports gabapentin was previously helpful but unsure why this was stopped. Main complaint is still pain in her b/l lower extremities that occurred after scabies previously. Shortness of breath back to her baseline. No chest pain or palpitations. Review of Systems Review of Systems: All systems reviewed & are unremarkable except as noted in HPI & below Physical Exam Constitutional: WD/WN, vitals as above Respiratory: normal respiratory effort Auscultation: + diminished lung sounds (bibasal); no crackles and no wheezes Cardiovascular: Rate/Rhythm: regular rate and + irregularly irregular Extremities: + calf tenderness and + pedal edema (2+ b/l LE equal) Gastrointestinal (Abdomen): Inspection/Auscultation: abdomen normal to ins pection Percussion/Palpation: abdomen soft; abdomen nontender Skin: no rashes, warm and dry (venous dermatitis changes only) Neurologic: moves all extremities and awake; not confused Psychiatric: A+Ox3, euthymic affect Results & Data Results & Data ([facility]) Vital Signs (Past 12 Hours) Vital Signs Temp Pulse Resp BP Pulse Ox 12/05/20 15:23 36.4 C L 84 17 114/69 99 12/05/20 11:33 36.6 C 81 19 112/50 L 98 12/05/20 07:17 36.4 C L 82 19 131/85 95 12/05/20 03:47 36.6 C 101 H 18 118/83 99 PG Care Time/CCT Total # of Minutes Spent Total Time Spent with Patient: Total time spent is greater than 50% in coordination of care (as documented) at patient's floor/unit and/or counseling patient: Coding Level of Care Code 78226 Subseq Hosp Care Lvl 2 Diagnoses Atrial fibrillation I48.91 Atrial fibrillation type: unspecified Bilateral edema of lower extremity R60.0 Venous insufficiency of both lower extremities I87.2 Chronic CHF I50.812 Heart failure type: right-sided Diabetes mellitus, type II E11.9 Chronic kidney disease (CKD) N18.9 H/O scabies Z86.19 History of gout Z87.39 CAD (coronary artery disease) I25.10 GERD (gastroesophageal reflux disease) K21.9 Esophagitis presence: esophagitis presence not specified COPD (chronic obstructive pulmonary disease) J44.9 Hypothyroidism E03.9 Hypothyroidism type: unspecified Obstructive sleep apnea G47.33 Anemia D64.9 Anemia type: unspecified type Ambulatory dysfunction R26.2 Diabetic peripheral neuropathy E11.42 Macular degeneration H35.30 DVT prophylaxis Z29.9 (1) Chronic CHF Heart failure type: right-sided Qualified Code(s): I50.812 - Chronic right heart failure (2) Anemia Anemia type: unspecified type Qualified Code(s): D64.9 - Anemia, unspecified (3) Atrial fibrillation Atrial fibrillation type: unspecified Qualified Code(s): I48.91 - Unspecified atrial fibrillation (4) Hypothyroidism Hypothyroidism type: unspecified Qualified Code(s): E03.9 - Hypothyroidism, unspecified (5) GERD (gastroesophageal reflux disease) Esophagitis presence: esophagitis presence not specified Qualified Code(s): K21.9 - Gastro-esophageal reflux disease without esophagitis
[2020-12-05] MEDS ORDERED: DIGOXIN 0.125 MG TAB PO SCH (16:00)
[2020-12-05] MEDS: ACETAMINOPHEN 325 MG TAB PO PRN (19:27)
[2020-12-05] MEDS: MIRTAZAPINE TAB 15 MG TAB PO SCH (21:08)
[2020-12-05] MEDS: ACETAMINOPHEN 500 MG TAB PO SCH (21:09)
[2020-12-05] MEDS: INSULIN GLARGINE SOLOSTAR 100 UNITS/ML 3 ML PEN SQ SCH (21:10)
[2020-12-06] MEDS: ACETAMINOPHEN 325 MG TAB PO PRN ×2 (00:41→14:02)
[2020-12-06] MEDS: DICLOFENAC SOD 1% GEL 100 GM TUBE EXT PRN (00:42)
--- NOTE | 2020-12-06 05:44 | Electrocardiogram Report ---
Test Reason : Blood Pressure : / mmHG Vent. Rate : 094 BPM Atrial Rate : 073 BPM P-R Int : 000 ms QRS Dur : 082 ms QT Int : 406 ms P-R-T Axes : 000 015 173 degrees QTc Int : 507 ms Atrial fibrillation Low voltage QRS T wave abnormality, consider lateral ischemia Prolonged QT Abnormal ECG When compared with ECG of 04-DEC-2020 15:24, T wave inversion more evident in Lateral leads Confirmed by Harvey Rodas ([id number]) on 12/06/2020 5:44:05 AM Referred By: REFERRED SELF Confirmed By:Harvey Rodas
[2020-12-06] MEDS: LEVOTHYROXINE SODIUM 50 MCG TABLET PO SCH (05:46)
[2020-12-06 06:21] LABS: BUN Creatinine Ratio 24.2 (10-20); Calcium 8.4 mg/dl (8.5-10.1); Creatinine Clr Calc Pharmacy 16.4 ml/min; Est GFR (African American) 21.7 ml/min; Est GFR (Non-African American) 18.7 ml/min; Potassium 3.6 mmol/L (3.5-5.1)
[2020-12-06] MEDS: PANTOprazole 40 MG TAB PO SCH (08:33)
[2020-12-06] MEDS: METOPROLOL SUCC 50MG EXT REL TAB PO SCH ×2 (08:33→20:25)
[2020-12-06] MEDS: POTASSIUM CHLORIDE 10 MEQ TABCR PO SCH ×2 (08:33→20:37)
[2020-12-06] MEDS: ISOSORBIDE MONO EXTENDED REL 30 MG TABCR PO SCH (08:34)
[2020-12-06] MEDS: DULoxetine HCL 60 MG CAP PO SCH (08:34)
[2020-12-06] MEDS: CHOLECALCIFEROL 1,000 UNITS 25 MCG TAB PO SCH (08:34)
[2020-12-06] MEDS: CLOPIDOGREL BISULFATE 75 MG TAB PO SCH (08:34)
[2020-12-06] MEDS: APIXABAN 2.5 MG TAB PO SCH ×2 (08:35→20:25)
[2020-12-06] MEDS: allopurinoL 100 MG TAB PO SCH (08:35)
[2020-12-06] MEDS: INSULIN ASPART 100 UNITS/ML 3 ML PEN SC SCH ×4 (09:12→20:26)
--- NOTE | 2020-12-06 09:34 | Pharmacy Report ---
Pharmacy Glycemic Short Note 2 - Date of Service December 06, 2020 - Glycemic Short BSG Results (Last 24 hours): 12/05/20 12/05/20 12/06/20 17:38 19:57 05:31 Glucose 58 L POC Glucose 142 H 137 H 12/06/20 07:20 Glucose POC Glucose 73 OUTPATIENT ANTIDIABETIC REGIMEN: * Novolog 7-10 units with meals * Lantus 20 units HS * A1c 5.2% 10/04/20 ASSESSMENT: 12/06/20 * Blood sugars at goal except for fasting blood sugar 58, 73mg/dl, will reduce Lantus further to prevent hypoglycemia 12/05/20 * 85 year old female admitted with Afib, type 2 diabetic on basal bolus insulin as outpatient. Will continue basal bolus insulin as inpatient. * Reduced dose of Lantus given last night, fasting BSG 72mg/dl today, continue reduced dose. * Blood sugars at goal, no further changes in CF/CR at this time. PLAN FOR INPATIENT GLYCEMIC CONTROL: * Basal insulin -decrease * Lantus 10 units SQ HS * Bolus insulin * NovoLog per scale ACHS or Q6hrs while NPO * Goal Range: Low 110 mg/dL - High 140 mg/dL * Correction Factor: 30 mg/dL/unit * Nutritional / Prandial insulin per carb ratio of 1 unit per 10 grams CHO consumed PLAN FOR DISCHARGE: * to be determined
--- NOTE | 2020-12-06 09:54 | Cardiology Progress Note ---
Date of Service December 06, 2020 Assessment & Plan (1) Chronic diastolic congestive heart failure: (2) Venous insufficiency of both lower extremities: (3) Chronic kidney disease (CKD): (4) Obstructive sleep apnea: (5) Atrial fibrillation: (6) Severe pulmonary hypertension: (7) Severe tricuspid regurgitation: Plan: 1. Chronic diastolic CHF: She does not examine excessively hypervolemic on exam. Systemic symptoms are improving. She continues to have lower leg pain/edema which is likely multifactorial. Heart rate is improved with increased Metoprolol and Digoxin. Renal function worsening today. Stop IV Bumex. Can resume oral diuretic regimen tomorrow. Diuretic recently converted from Lasix to Bumex earlier this week as an outpatient. Now that she appears near euvolemic would recommend trial Bumex 2 mg once daily. Would consider Spironolactone 25 mg in addition. She can take an additional 2 mg of Bumex as needed for weight gain, worsening edema or dyspnea. Will likely need to accept some degree of edema and some degree of renal insufficiency for adequate symptom management. Low sodium diet, <2,000 mg daily. Daily weights. She was instructed to call for weight gain of 2-3 lb overnight or more than 5 lb in 1 week. 2. Atrial fibrillation: She is asymptomatic. Continue rate control strategy with metoprolol and Digoxin. During her September hospitalization she was actually bradycardic so her Metoprolol and Digoxin were held. Metoprolol has been res tarted and has been titrated- mostly recently to 150 mg BID earlier in the week. Would continue this dose. Digoxin added yesterday. Patient self discontinued her Diltiazem in February. Continue Eliquis for thromboembolic prophylaxis. Her dose was lowered to 2.5 mg BID. For now, continue Eliquis at current dosing. Continue to monitor PRP as well as CBC. 3. Coronary artery disease: She is s/p PCI of the proximal LAD on 12/06/[address] Miller. She denies angina. Her LV systolic function is normal. Continue Plavix, Eliquis, atorvastatin, metoprolol, and Imdur. 4. Mitral regurgitation/tricuspid regurgitation: Previously noted to have moderate MR, mild on most recent echo. TR is severe on recent echo. 5. Hypertension: BP well controlled. Continue current therapy. 6. Pulmonary hypertension: Severe on August 2020 echo. Continue to optimize volume status. Would agree with repeat outpatient sleep study. Consider outpatient pulmonology referral for ongoing management. 7. Chronic pain: Patient was previously admitted for toxic encephalopathy with Morphine in the setting of CKD. She was advised to stop taking it. Patient also hospitalized more recently and Nucynta felt to be contributing factor. She stopped this after her most recent hospitalization. Also advised to avoid Tylenol but is currently using this. Would recommend follow up with pain management to discuss alternative options. 8. BETHANY: Untreated. Likely contributing factor to her symptoms. Patient had previous sleep study in 2009. CPAP recommended at that time. Repeat study recommended as outpatient. Disposition: Follow up with heart failure within 7 days of discharge. Admission and Anticipated Discharge Date Admission Date: December 04, 2020 Subjective Ms. Porter is an 85-year-old female with a past medical history significant for diastolic CHF, coronary artery disease, atrial fibrillation, CAD, mitral regurgitation, type 2 diabetes mellitus, dyslipidemia, hypertension, severe tricuspid regurgitation, and pulmonary hypertension, BETHANY, CKD, hypothyroidism, GERD, gout, and macular degeneration. Dr. Roland is her primary chainstitch zipper setter. Recent studies: 1. Cardiac catheterization 12/06/18- Severe single vessel coronary artery disease - 50% ostial LAD stenosis. - 90+% acute appearing proximal LAD in-stent restenosis. 50 to 60% earlymid segment after prior stent - diffuse 60% late- mid LAD disease. Borderline intracardiac filling pressure. Successful PCI of proximal to mid LAD with single drug-eluting stent overlapping prior stent (2.5 x 18 mm Xience Aditi; postdilated with 2.75 NC 2. Echocardiogram 08/15/18- Normal left ventricular systolic function 55-60%. RV mildly dilated. LA severely dilated. RA mod dilated. Moderate to severe MR. RVSP elevated at 30-40 mmHg. 3. Echo 04/14/19: LV size, wall motion, and systolic function are normal. EF 65- 70%. Mild MR. Mild TR. 4. 08/15/20 Echo: Normal LV size and systolic function. EF 60-65%. No RWMA. No LVH. Mild AR. Mild-mod MR. Moderate-severe TR. Severe pulmonary hypertension. RVSP 85 mmHg. She was hospitalized from 05/03/20 through 05/05/20 for toxic encephalopathy due to medications. Patient recently started taking Morphine in the setting of CKD. She improved significantly after stopping Morphine. She was hospitalized from 07/05/20 through 07/07/20 for metabolic encephalopathy with acute diastolic CHF, hypoglycemia, hypokalemia, and hyperbilirubinemia. She was referred to the ED from her PCP for jaundice and increased confusion. She denied SOB, weight gain, or edema. Billirubin was elevated at 5.2. Her BNP was elevated and + pulmonary edema on CXR therefore she was diuresed with Lasix 40 mg IV. Hematology was consulted, recommended ongoing outpatient follow up. Avoid Tylenol. She was discharged on her home dose of Lasix 80 mg BID. She was also admitted from 08/13/20 through 08/17/20 for ambulatory dysfunction due to severe spinal stenosis and macrocytic anemia. Patient presented with leg weakness, low urine output, and several recent falls. Patient was offered spinal surgery but has decided to pursue a non surgical approach. She was also found to have a right calcaneal fracture. She was placed a walking boot for 6-8 weeks. Hgb was 7.7 on arrival and she received 1 unit PRBCs. Stools heme +. Creatinine was slightly elevated so Lasix was held x 2 days on discharge. She was discharged to [facility]. She was then admitted from 10/03/20 through 10/05/20 for altered mental status. This is likely secondary to polypharmacy. She was bradycardic. Digoxin was discontinued. Metoprolol was held during admission and then on discharge as well. She was well compensated from a volume standpoint. Outpatient sleep study was recommended on discharge. She was admitted from 11/24/20 through 11/27/20 for acute on chronic diastolic CHF and cellulitis. She presented with leg swelling. Her weight was stable at 162 lb. She denied shortness of breath and orthopnea. She had a right lower extremity wound. She was treated with Lasix 80 mg IV BID and was discharged on Lasix 80 mg PO BID. She was also treated with Doxycycline and Keflex x 7 days. Wound care did evaluate her during hospitalization. She was most recently evaluated by the heart failure program on 12/03/20. She was hypervolemic with weight gain, edema, and dyspnea. She was treated with Lasix 80 mg IV in the office. She had minimal response. We decided to switch her Lasix to Bumex for better bioavailability. She was also noted to be tachycardic with rates in the 100s-110s for several weeks. Metoprolol was further increased to 150 mg BID. She then presented to the ED on 12/04/20 for increased leg pain and swelling. EKG consistent with afib with rate of 119. She was treated with IV metoprolol in the ED. She was initiated on Bumex 2 mg IV BID. Digoxin was restarted yesterday. She is feeling better today. Breathing is at baseline. She continues to have some slight edema and leg discomfort. She denies orthopnea or PND. Heart rate has been well controlled. She denies chest pain, palpitations, cough. Fluid balance is essentially negative. Weight is consistent with her typical baseline- 161 lb on the standing scale. She is fully vaccinated for COVID19. Physical Exam Physical Exam: Constitutional: Alert, oriented, in no acute distress HEENT: Head is atraumatic and normocephalic. EOMs intact. Sclera anicteric. Face is symmetric. No perioral cyanosis. Mucous membranes moist. Neck: Supple, no JVD, no carotid bruits Pulmonary: Normal respiratory effort. Clear to auscultation. No wheezes, rales, or crackles. Cardiac: Irregularly irregular, normal S1 and S2, no gallops, no rubs, no obvious murmurs Extremities: 1-2+ BL lower extremity edema to the knees. No clubbing or cyanosis. Pulses intact. No evidence of cellulitis. No active drainage. Abdomen: Obese. Normal bowel sounds, soft, non-tender, no abdominal mass palpated Skin: No rash, lesions. Neurological: Oriented to person, place, and time Results & Data ([facility]) Vital Signs (Past 12 Hours) Vital Signs Temp Pulse Pulse Resp BP Pulse Ox 12/06/20 07:54 97.5 F L 76 119/76 94 12/06/20 03:00 97.5 F L 74 20 121/77 96 12/06/20 00:50 81 12/05/20 22:53 97.5 F L 77 18 124/61 96 PG Care Time/CCT Total # of Minutes Spent Total Time Spent with Patient: Total time spent is greater than 50% in coordination of care (as documented) at patient's floor/unit and/or counseling patient: Coding Level of Care Code 18778 Subseq Hosp Care Lvl 3 Diagnoses Chronic diastolic congestive heart failure I50.32 Venous insufficiency of both lower extremities I87.2 Chronic kidney disease (CKD) N18.9 Obstructive sleep apnea G47.33 Atrial fibrillation I48.91 Atrial fibrillation type: unspecified Severe pulmonary hypertension I27.20 Severe tricuspid regurgitation I07.1 (1) Atrial fibrillation Atrial fibrillation type: unspecified Qualified Code(s): I48.91 - Unspecified atrial fibrillation
[2020-12-06] MEDS: TRIAMCINOLONE ACET 0.1% CR 15 GM TUBE EXT SCH ×2 (11:40→20:37)
--- NOTE | 2020-12-06 13:47 | Fluoroscopy Report ---
FL barium swallow CLINICAL HISTORY: Globus sensation. COMPARISON STUDY: None. FINDINGS: Total fluoroscopy time 0.9 minutes. 7 fluoroscopic spot images were submitted. There is asp iration with the initial swallows of barium. Therefore, the examination was terminated early. The eso phagus appears normal in course and caliber. No hiatus hernia. No gastroesophageal reflux demonstrate during the shortened examination. IMPRESSION: 1. Aspiration was identified with the initial swallows of barium. Therefore, the examination was term inated early. Follow-up video swallow is recommended for further evaluation. 2. The esophagus appears to be normal in course and caliber. ACT 112: Negative or not required by law. Electronically signed by: Lucius Tate M.D. 12/06/2020 1:46 PM
--- NOTE | 2020-12-06 17:17 | Hospitalist Progress Note ---
Date of Service December 06, 2020 Assessment & Plan (1) Aspiration into airway: Plan: -Patient had a sensation of globus hystericus without any significant clinical bedside indication of aspiration. Thought to have potentially been related to recent course of doxycycline (which can be hard on the GI tract) -An esophagram was ordered and attempted to rule out contractures, stricture, and severe presbyesophagus; however, had to be aborted due to aspiration -At this time, will initiate aspiration precautions -Consult speech therapy--> appreciate recommendations (2) Atrial fibrillation: Plan: -Heart rate of 118 upon admission. -Heart rate currently controlled at 82 with up titration of metoprolol succinate 150 mg twice a day -Cardiology has evaluated this patient. Appreciate recommendations. -Is on Eliquis. In setting of anemia, may need to rethink this. Will obtain stool for occult blood and potentially discontinue this medication (3) Bilateral edema of lower extremity: Plan: -Admitting procalcitonin level was negative -Patient recently diagnosed with cellulitis. No clinical indication at this point of continued cellulitic changes. -Patient has completed a full 10 days of Keflex and doxycycline. We will stop both of these antibiotics -Likely at baseline and related to venous insufficiency/right-sided CHF (4) Venous insufficiency of both lower extremities: Plan: -See above. (5) Chronic CHF: Plan: -Currently, goal is symptom management -Patient with CKD (creatinine clearance 21) -She walks a very fine line between uncompensated CHF and uncompensated renal dysfunction. Unfortunately, a degree of renal dysfunction is needed to keep her CHF compensated. -Because of after mentioned, main goal should be focusing on symptom management. Patient is not short of breath or hypoxic. She has no rales on exam. And overall she does not have significant peripheral edema but more adiposity/vascular changes noted. -Spoke with Madelaine Rothman PA-C (who knows this patient well and follows her in the CHF clinic) and she reports this is actually an improvement from when she saw her last. -Continue Bumex 2 mg p.o. twice daily as ordered -Patient is on disease modifying medications including beta-blockade, Imdur, and digoxin -Echocardiogram done 08/24 shows preserved EF of 60 to 65% with no regional wall motion abnormalities. Mild AR. Mild to moderate MR. Moderate to severe TR and severe pulmonary hypertension (6) Diabetes mellitus, type II: Plan: HbA1C 5.1 Appreciate pharmacy management for glycemic control (7) Chronic kidney disease (CKD): Plan: Creatinine 2.3--> not far from baseline. As previously mentioned, a degree of renal dysfunction is likely needed to keep her CHF compensated Baseline creatinine appears to be 1.9-2.0 Avoid other nephrotoxic agents and when necessary, renally adjust meds (8) H/O scabies: Plan: No evidence of mites at this time No indication for isolation at this time Continue triamcinolone topical application twice daily (9) History of gout: Plan: No current acute complaints Continue with maintenance doses of allopurinol (10) CAD (coronary artery disease): Plan: No chest pain or tightness Troponin is negative Continue metoprolol, Imdur, Plavix, Eliquis Follow electrolytes Monitor on telemetry (11) GERD (gastroesophageal reflux disease): Plan: Continue home dose of pantoprazole (12) COPD (chronic obstructive pulmonary disease): Plan: No formal diagnosis and patient has not done any the bronchodilators, ICS, or AC Saturating 99% on room air (13) Hypothyroidism: Plan: Continue levothyroxine TSH 0.607 (14) Obstructive sleep apnea: Plan: Patient with polysomnography exam in 2009 revealed sleep apnea. At that time CPAP titration study was completed and it was recommended the patient be placed on 13 cm of H2O. Patient reports that she has not used CPAP At this time will order CPAP while inpatient at 13 cm of water to be used as tolerated Recommend outpatient polysomnography exam to requalify This is especially important with patient's cardiac history. (15) Anemia: Plan: -Chronic. Hemoglobin stable and at baseline at 8.0. (Has been 7-8 since July 2020) -Suspect anemia of chronic disease although patient is on anticoagulation therapy. Will add stool for occult blood along with iron studies, reticulocyte count, and stool for occult blood. -May need to consider Procrit pending etiology (16) Ambulatory dysfunction: Plan: Patient uses a wheelchair and a cane at home as well as a walker Patient states that she is able to ambulate Will admit with ambulation with assistance and fall precautions on the floor (17) Diabetic peripheral neuropathy: Plan: -Patient states that she had been on Neurontin in the past but currently is not receiving any. -Suspect this was discontinued given her worsening renal dysfunction and current creatinine clearance of 21 (should not use Neurontin with creatinine clearance less than 30) -Will add topical capsaicin (18) Macular degeneration: Plan: Currently not on any outpatient eyedrops Patient reports that she gets injections in her eyes from ophthalmology Further management as an outpatient (19) DVT prophylaxis: Plan: Chronic anticoagulation with apixaban 2.5 mg p.o. twice daily may need Out of bed as tolerated Ambulate as tolerated Consult PT/OT Hemodynamically stable for transition to nonmonitored bed Plan of care discussed with Dr. Estevez Plan: Stable for transfer to med/tele Admission and Anticipated Discharge Date Admission Date: December 06, 2020 Subjective Patient seen on daily rounds today. She is an 85 y/o WF with a PMHx of Severe Pulm HTN, A.Fib, CHF, IDDM, Mitral Regurg, Diabetic neuorpathy, BETHANY, COPD. CVD, CAD. and hypothyroidism. Hospitalized 11/24/20 -11/27/20 for Cellulitis of her leg and acute uncompensated CHF. D/C'ed on doxy and keflex and her lasix increased from 80/40mg to 80mg BID. Has since followed up in the CHF clinic and felt to have a lack of response for which her lasix was changed to Bumex 2mg BID Readmitted on 12/04 for increased edema of her B/L LE and weakness. She was diuresed with IV Bumex with favorable response. (her fluid balance is documented but not accurate d/t missing the hat and some incontinence) She denies SOB, orthopnea, PND, CP. Her only complaint is swelling of her legs but reports that is overall improved (as legs were weeping upon presentation per patient) Her Renal function has bumped slightly with diuresis (baseline 1.9-2.0 and is 2.3 today) The only issue noted today (and mentioned to me by other staff) is dysphagia. When patient asked specifically, she reports that she isn't necessarily having trouble swallowing but feels as "if something is stuck in her throat" Uncertain as to exact start day of this symptom but believes it may have been ongoing X 3 days. Denies excessive eructation, abdominal bloating, dyspepsia Is not coughing or choking when eating. Denies trouble swallowing her food. Simply describes it as "I swallow and it feels like the food hits a brick". Denies any vomiting. Is not vomiting undigested food. An esophagram was ordered but with ingestion of barium, patient immediately aspirated and test was aborted. Review of Systems Review of Systems: All systems reviewed and are unremarkable except as noted in HPI and below Denies fevers, chills, headache, nasal congestion, sore throat, cough, chest pain, shortness of breath, orthopnea, PND, abdominal pain, nausea, vomiting, dysuria, hematuria, frequency, skin lesions or rashes. Physical Exam Physical Exam: General: Resting comfortably in her hospital bed. NAD. Neck: No JVD. Negative hepatojugular reflex Cardiac: Irregularly irregular with controlled ventricular rate Lungs: CTA without W/R/R Abdomen: Normoactive X4. Soft and nontender in all quadrants. Negative hepatojugular reflex Extremities: Adiposity noted without true pitting edema. Patient does have vascular changes of the bilateral lower extremities. Scabbed over lesion on the right lateral lower extremity. No evidence of cellulitis. Neuro: A&O X4 cranial nerves II through XII are grossly intact no focal neuro deficits Skin: See above Results & Data Results & Data ([facility]) Vital Signs (Past 12 Hours) Vital Signs Temp Pulse Pulse Resp BP Pulse Ox 12/06/20 16:00 36.3 C L 82 20 109/55 L 95 12/06/20 11:48 36.5 C 76 115/75 98 12/06/20 07:54 36.4 C L 76 119/76 94 12/06/20 07:00 73 Laboratory Results 12/05/20 06:27 12/06/20 05:31 Diagnostic Findings IMPRESSION: 1. Aspiration was identified with the initial swallows of barium. Therefore, the examination was terminated early. Follow-up video swallow is recommended for further evaluation. 2. The esophagus appears to be normal in course and caliber PG Care Time/CCT Total # of Minutes Spent Total Time Spent with Patient: Total time spent is greater than 50% in coordination of care (as documented) at patient's floor/unit and/or counseling patient: [place] [address] Subseq Hosp Care Lvl 3 Patient Type Established History Comprehensive Exam Comprehensive Medical Decision Making High Complexity Diagnoses Atrial fibrillation I48.91 Atrial fibrillation type: unspecified Bilateral edema of lower extremity R60.0 Venous insufficiency of both lower extremities I87.2 Chronic CHF I50.812 Heart failure type: right-sided Diabetes mellitus, type II E11.9 Chronic kidney disease (CKD) N18.9 H/O scabies Z86.19 History of gout Z87.39 CAD (coronary artery disease) I25.10 GERD (gastroesophageal reflux disease) K21.9 Esophagitis presence: esophagitis presence not specified COPD (chronic obstructive pulmonary disease) J44.9 Hypothyroidism E03.9 Hypothyroidism type: unspecified Obstructive sleep apnea G47.33 Anemia D64.9 Anemia type: unspecified type Ambulatory dysfunction R26.2 Diabetic peripheral neuropathy E11.42 Macular degeneration H35.30 DVT prophylaxis Z29.9 Aspiration into airway T17.908A (1) Chronic CHF Heart failure type: right-sided Qualified Code(s): I50.812 - Chronic right heart failure (2) Anemia Anemia type: unspecified type Qualified Code(s): D64.9 - Anemia, unspecified (3) Atrial fibrillation Atrial fibrillation type: unspecified Qualified Code(s): I48.91 - Unspecified atrial fibrillation (4) Hypothyroidism Hypothyroidism type: unspecified Qualified Code(s): E03.9 - Hypothyroidism, unspecified (5) GERD (gastroesophageal reflux disease) Esophagitis presence: esophagitis presence not specified Qualified Code(s): K21.9 - Gastro-esophageal reflux disease without esophagitis
[2020-12-06] MEDS ORDERED: CAPSAICIN CR 0.075% 60 GM TUBE EXT PRN (17:37)
[2020-12-06 18:33] LABS: Immature Retic Fraction 9.7 % (3.0-15.9); Reticulated Hemoglobin 27.8 pg (28.2-36.6); Reticulocyte % 5.8 % (0.5-2.0); Reticulocytes # 0.13 10^6/uL (0.02-0.10)
[2020-12-06 18:50] LABS: Ferritin 63.1 ng/ml (8-388)
[2020-12-06] MEDS: MIRTAZAPINE TAB 15 MG TAB PO SCH (20:25)
[2020-12-06] MEDS ORDERED: INSULIN GLARGINE SOLOSTAR 100 UNITS/ML 3 ML PEN SQ SCH (21:00)
[2020-12-06] MEDS: ACETAMINOPHEN 500 MG TAB PO SCH (21:25)
[2020-12-07] MEDS: ACETAMINOPHEN 325 MG TAB PO PRN (01:05)
[2020-12-07] MEDS: LEVOTHYROXINE SODIUM 50 MCG TABLET PO SCH (05:47)
--- NOTE | 2020-12-07 06:08 | Electrocardiogram Report ---
Test Reason : Blood Pressure : / mmHG Vent. Rate : 088 BPM Atrial Rate : 312 BPM P-R Int : 000 ms QRS Dur : 074 ms QT Int : 414 ms P-R-T Axes : 000 002 209 degrees QTc Int : 500 ms Atrial fibrillation Low voltage QRS Cannot rule out Anterior infarct , age undetermined T wave abnormality, consider lateral ischemia Prolonged QT Abnormal ECG When compared with ECG of 05-DEC-2020 05:45, No significant change Confirmed by Harvey Rodas ([id number]) on 12/07/2020 6:07:29 AM Referred By: REFERRED SELF Confirmed By:Harvey Rodas
[2020-12-07 07:29] LABS: Hematocrit (blood only) 26.1 % (37-47); Hemoglobin 7.7 g/dL (12.0-16.0); Mean Corpuscular Hemoglobin 33.5 pg (25-34); Mean Corpuscular Hgb Conc 29.5 g/dL (32-36); Mean Corpuscular Volume 113.5 fL (80-100); Platelet Count 272 K/uL (130-400); RDW Coefficient of Variation 24.8 % (11.5-14.5); White Blood Count 5.08 K/uL (4.8-10.8)
[2020-12-07 07:54] LABS: Anisocytosis Present; Basophils # (auto) 0.02 K/uL (0-0.2); Basophils % (auto) 0.4 %; Eosinophils # (auto) 0.22 K/uL (0-0.5); Eosinophils % (auto) 4.3 %; Immature Granulocytes # (auto) 0.02 K/uL (0.00-0.02); Immature Granulocytes % (auto) 0.4 %; Lymphocytes # (auto) 0.93 K/uL (1.2-3.4); Lymphocytes % (auto) 18.3 %; Macrocytosis Present; Monocytes # (auto) 0.48 K/uL (0.11-0.59); Monocytes % (auto) 9.4 %; Neutrophils # (auto) 3.41 K/uL (1.4-6.5); Neutrophils % (auto) 67.2 %; Ovalocytes 2+; Tear Drop Cells 1+
[2020-12-07 07:56] LABS: BUN Creatinine Ratio 25.1 (10-20); Calcium 8.7 mg/dl (8.5-10.1); Creatinine Clr Calc Pharmacy 15.2 ml/min; Est GFR (African American) 19.7 ml/min; Magnesium 2.5 mg/dl (1.8-2.4); Potassium 3.9 mmol/L (3.5-5.1)
--- NOTE | 2020-12-07 08:22 | Pharmacy Report ---
Pharmacy Glycemic Short Note 2 - Date of Service December 07, 2020 - Glycemic Short BSG Results (Last 24 hours): 12/06/20 12/06/20 12/06/20 11:49 16:45 20:20 Glucose POC Glucose 159 H 169 H 167 H 12/07/20 12/07/20 06:36 08:04 Glucose 102 H POC Glucose 121 H OUTPATIENT ANTIDIABETIC REGIMEN: * Novolog 7-10 units with meals * Lantus 20 units HS * A1c 5.2% 10/04/20 ASSESSMENT: 12/07/20 * Pt has received 23 units of insulin over the past 24hrs * 10 units of basal with Lantus * 13 units of bolus with NovoLog * BSGs [id number] mg/dl * All BSGs in goal range - no changes needed today 12/06/20 * Blood sugars at goal except for fasting blood sugar 58, 73mg/dl, will reduce Lantus further to prevent hypoglycemia 12/05/20 * 85 year old female admitted with Afib, type 2 diabetic on basal bolus insulin as outpatient. Will continue basal bolus insulin as inpatient. * Reduced dose of Lantus given last night, fasting BSG 72mg/dl today, continue reduced dose. * Blood sugars at goal, no further changes in CF/CR at this time. PLAN FOR INPATIENT GLYCEMIC CONTROL: * Basal insulin -no change * Lantus 10 units SQ HS * Bolus insulin- no change * NovoLog per scale ACHS or Q6hrs while NPO * Goal Range: Low 110 mg/dL - High 140 mg/dL * Correction Factor: 30 mg/dL/unit * Nutritional / Prandial insulin per carb ratio of 1 unit per 10 grams CHO consumed PLAN FOR DISCHARGE: * A1c is somewhat unreliable secondary to CKD and anemia. Recommending decreasing outpatient insulin dosing if patient is experiencing hypoglycemia. Pt is only requiring ~50% of outpatient dosing while inpatient but PO intake may be less in house.
[2020-12-07] MEDS ORDERED: BUMETANIDE 1 MG TAB PO SCH (09:00)
[2020-12-07] MEDS: PANTOprazole 40 MG TAB PO SCH (09:07)
[2020-12-07] MEDS: POTASSIUM CHLORIDE 10 MEQ TABCR PO SCH (09:07)
[2020-12-07] MEDS: allopurinoL 100 MG TAB PO SCH (09:08)
[2020-12-07] MEDS: DULoxetine HCL 60 MG CAP PO SCH (09:08)
[2020-12-07] MEDS: CHOLECALCIFEROL 1,000 UNITS 25 MCG TAB PO SCH (09:08)
[2020-12-07] MEDS: CLOPIDOGREL BISULFATE 75 MG TAB PO SCH (09:08)
[2020-12-07] MEDS: ISOSORBIDE MONO EXTENDED REL 30 MG TABCR PO SCH (09:08)
[2020-12-07] MEDS: INSULIN ASPART 100 UNITS/ML 3 ML PEN SC SCH (09:09)
[2020-12-07] MEDS: METOPROLOL SUCC 50MG EXT REL TAB PO SCH (09:09)
[2020-12-07] MEDS: APIXABAN 2.5 MG TAB PO SCH (09:09)
[2020-12-07] MEDS: TRIAMCINOLONE ACET 0.1% CR 15 GM TUBE EXT SCH (09:10)
--- NOTE | 2020-12-07 12:00 | Fluoroscopy Report ---
FL video swallow HISTORY: f/u s/p aspiration on Barium Swallow TECHNIQUE: Video fluoroscopic evaluation of swallowing was performed in the AP and lateral projection s by the speech pathology staff. The patient is fed nectar-thick and thin liquid barium, a barium coa emmy wafer, and barium pudding. FLUOROSCOPY TIME: 2.7 minutes. NUMBER OF FLUOROSCOPY IMAGES: [id number] COMPARISON STUDY: None. FINDINGS: There is normal hyoid excursion and epiglottic deflection. No significant penetration or as piration identified. Swallowing function is within normal limits. IMPRESSION: 1. No aspiration identified. 2. Please see the speech pathologist report for detailed findings and recommendations. ACT 112: Negative or not required by law. The above report was generated using voice recognition software. It may contain grammatical, syntax o r spelling errors. Electronically signed by: Shweta Villanueva DO 12/07/2020 11:59 AM
--- NOTE | 2020-12-07 16:58 | Discharge Summary ---
Date of Service December 07, 2020 Admission HPI Per Admitting Provider Attending: Dr. Dm Tsang This is an 85-year-old female with history of severe pulmonary hypertension, congestive heart failure, atrial fibrillation, chronic anticoagulation with Eliquis, diabetes mellitus type 2 on long-term insulin, scabies, bilateral lower extremity cellulitis mitral regurgitation, hyperlipidemia, gout, severe diabetic peripheral neuropathy, depression with anxiety, history of cerebrovascular disease, obstructive sleep apnea not on CPAP, hypothyroidism, COPD without pulmonary function testing, GERD, CAD, hypertension, macular degeneration, and sensorineural hearing loss of both ears. Patient presented with weakness and shortness of breath. She was found to be in atrial fibrillation with RVR with a external heart rate of 118 bpm. Patient is hemodynamically stable. Patient has no hypoxia and is currently saturating 99% on room air. Patient denies any chest pain or tightness. No pleuritic pain. No hemoptysis. She states that she is taking all of her medications not missed any doses. Patient denies any awareness of palpitations or tachyarrhythmia. She has a chief complaint on her side of lower extremity edema. She saw Madelaine Rothman PA-C at the heart failure clinic yesterday. She was converted from furosemide to Bumex 2 mg p.o. twice daily but states that she has no significant change in urine output. She reports her legs continue to be extremely edematous. She states that she does have some urine output but not as she would expect with a change in diuretics. Patient has chronic anemia and currently has a hemoglobin of 8.5 with a hematocrit of 28.5%. She denies any active bleeding. No awareness of GI complication. Patient does complain of peripheral neuropathy of the lower legs. She is extremely sensitive to touch. I was able to palpate pedal pulses but she complained of pain with light palpation. Patient was discharged on 11/27/2020 with doxycycline 100 mg p.o. twice daily as well as Keflex for her lower extremity cellulitis. At this time, she does not appear to have any significant cellulitis. She denies fever, chills, sweats, rigors. She has no nausea or vomiting. She has no other acute complaints. Patient does not have any history of Covid. She does report that she is vaccinated with Moderna x2 with her second vaccination being July 2020. Principal Diagnosis 1. A. fib with RVRrate now controlled 2. Mildly uncompensated CHFclinically compensated at present 3. Globus hystericuslikely related to recent doxycycline use 4. A/CKDclose to baseline 5. Anemiachronic Discharge Exam General: Resting comfortably in her hospital bed. NAD. Neck: No JVD. Negative hepatojugular reflex Cardiac: Irregularly irregular with controlled ventricular rate Lungs: CTA without W/R/R Abdomen: Normoactive X4. Soft and nontender in all quadrants. Negative hepatojugular reflex Extremities: Adiposity noted without true pitting edema. Patient does have vascular changes of the bilateral lower extremities. Scabbed over lesion on the right lateral lower extremity. No evidence of cellulitis. Neuro: A&O X4 cranial nerves II through XII are grossly intact no focal neuro deficits Skin: See above Discharge Data Allergies Allergy/AdvReac Type Severity Reaction Status Date / Time shellfish derived Allergy Severe ANAPHYLAXIS Verified 12/04/20 17:27 iodine Allergy Intermediate ANAPHYLAXIS Verified 12/04/20 17:27 lisinopril Allergy Unknown Unknown Verified 12/04/20 17:27 oxybutynin [From Ditropan] Allergy Unknown Unknown Verified 12/04/20 17:27 sertraline [From Zoloft] Allergy Unknown Unknown Verified 12/04/20 17:27 paroxetine AdvReac Mild GI UPSET Verified 12/04/20 17:27 Consultations 12/04/20 17:10 ED Decision to Admit Stat 12/04/20 20:28 Consult Cardiology Routine Assessment & Plan (1) Chronic diastolic congestive heart failure: (2) Venous insufficiency of both lower extremities: (3) Chronic kidney disease (CKD): (4) Obstructive sleep apnea: (5) Atrial fibrillation: (6) Severe pulmonary hypertension: (7) Severe tricuspid regurgitation: Plan: 1. Chronic diastolic CHF: She does not examine excessively hypervolemic on exam. Systemic symptoms are improving. She continues to have lower leg pain/edema which is likely multifactorial. Heart rate is improved with increased Metoprolol and Digoxin. Renal function worsening today. Stop IV Bumex. Can resume oral diuretic regimen tomorrow. Diuretic recently converted from Lasix to Bumex earlier this week as an outpatient. Now that she appears near euvolemic would recommend trial Bumex 2 mg once daily. Would consider Spironolactone 25 mg in addition. She can take an additional 2 mg of Bumex as needed for weight gain, worsening edema or dyspnea. Will likely need to accept some degree of edema and some degree of renal insufficiency for adequate symptom management. Low sodium diet, <2,000 mg daily. Daily weights. She was instructed to call for weight gain of 2-3 lb overnight or more than 5 lb in 1 week. 2. Atrial fibrillation: She is asymptomatic. Continue rate control strategy with metoprolol and Digoxin. During her September hospitalization she was actually bradycardic so her Metoprolol and Digoxin were held. Metoprolol has been restarted and has been titrated- mostly recently to 150 mg BID earlier in the week. Digoxin added yesterday. Patient self discontinued her Diltiazem in February. Continue Eliquis for thromboembolic prophylaxis. Her dose was lowered to 2.5 mg BID. For now, continue Eliquis at current dosing. Continue to monitor PRP as well as CBC. 3. Coronary artery disease: She is s/p PCI of the proximal LAD on 12/06/[address] Miller. She denies angina. Her LV systolic function is normal. Continue Plavix, Eliquis, atorvastatin, metoprolol, and Imdur. 4. Mitral regurgitation/tricuspid regurgitation: Previously noted to have moderate MR, mild on most recent echo. TR is severe on recent echo. 5. Hypertension: BP well controlled. Continue current therapy. 6. Pulmonary hypertension: Severe on August 2020 echo. Continue to optimize volume status. Would agree with repeat outpatient sleep study. Consider outpatient pulmonology referral for ongoing management. 7. Chronic pain: Patient was previously admitted for toxic encephalopathy with Morphine in the setting of CKD. She was advised to stop taking it. Patient also hospitalized more recently and Nucynta felt to be contributing factor. She stopped this after her most recent hospitalization. Also advised to avoid Tylenol but is currently using this. Would recommend follow up with hussein dukes to discuss alternative options. 8. BETHANY: Untreated. Likely contributing factor to her symptoms. Patient had previous sleep study in 2009. CPAP recommended at that time. Repeat study recommended as outpatient. Ordered Studies 12/06/20 11:30 Esophagram: IMPRESSION: 1. Aspiration was identified with the initial swallows of barium. Therefore, the examination was terminated early. Follow-up video swallow is recommended for further evaluation. 2. The esophagus appears to be normal in course and caliber. 12/07/20 11:00 FL video swallow Routine IMPRESSION: 1. No aspiration identified. 2. Please see the speech pathologist report for detailed findings and recommendations. Hospital Course (1) Aspiration into airway: -Patient had a sensation of globus hystericus without any significant clinical bedside indication of aspiration. Thought to have potentially been related to recent course of doxycycline (which can be hard on the GI tract) -An esophagram was ordered and attempted to rule out contractures, stricture, and severe presbyesophagus; however, had to be aborted due to aspiration -Was empirically placed on mechanical soft with nectar thick liquids - speech pathology consulted and had videofluoroscopy done showing no evidence of aspiration or need for modified dietsee above as outlined -Globus likely from recent doxycycline (2) Atrial fibrillation: -Heart rate of 118 upon admission. -Prior hospitalizations, patient was on metoprolol succinate 150 mg 3 times daily (This is a strange regimen but Rx managed by EP) in addition to daily digoxin. This was decreased due to some mild bradycardia -On the day prior to admission, her metoprolol succinate was increased back to 3 times daily -With presenting heart rate of 118, she was placed back on digoxin but every other day (being cautious given her underlying renal dysfunction) -Dig level monitored and was not toxic throughout this hospital course (3) Bilateral edema of lower extremity: -Admitting procalcitonin level was negative -Patient recently diagnosed with cellulitis. No clinical indication at this point of continued cellulitic changes. -Patient has completed a full 10 days of Keflex and doxycycline. -Likely at baseline and related to venous insufficiency/right-sided CHF (4) Venous insufficiency of both lower extremities: -See above. (5) Chronic CHF: -Currently, goal is symptom management -Patient with CKD (creatinine clearance 21) -She walks a very fine line between uncompensated CHF and uncompensated renal dysfunction. Unfortunately, a degree of renal dysfunction is needed to keep her CHF compensated. -Because of aforementioned, main goal should be focusing on symptom management. Patient is not short of breath or hypoxic. She has no rales on exam. And overall she does not have significant peripheral edema but more adiposity/vascular changes noted. -Spoke with Madelaine Rothman PA-C (who knows this patient well and follows her in the CHF clinic) and she reports this is actually an improvement from when she saw her last. -Continue Bumex 2 mg p.o. twice daily as ordered -Patient is on disease modifying medications including beta-blockade, Imdur, and digoxin -Echocardiogram done 08/24 shows preserved EF of 60 to 65% with no regional wall motion abnormalities. Mild AR. Mild to moderate MR. Moderate to severe TR and severe pulmonary hypertension (6) Diabetes mellitus, type II: HbA1C 5.1 Appreciate pharmacy management for glycemic control (7) Chronic kidney disease (CKD): Creatinine 2.5--> not far from baseline. As previously mentioned, a degree of renal dysfunction is likely needed to keep her CHF compensated Baseline creatinine appears to be 1.9-2.0 Avoid other nephrotoxic agents and when necessary, renally adjust meds (8) H/O scabies: No evidence of mites at this time No indication for isolation at this time Continue triamcinolone topical application twice daily (9) History of gout: No current acute complaints Continue with maintenance doses of allopurinol (10) CAD (coronary artery disease): No chest pain or tightness Troponin is negative Continue metoprolol, Imdur, Plavix, Eliquis Follow electrolytes Monitor on telemetry (11) GERD (gastroesophageal reflux disease): Continue home dose of pantoprazole (12) COPD (chronic obstructive pulmonary disease): No formal diagnosis and patient has not done any the bronchodilators, ICS, or AC Saturating 99% on room air (13) Hypothyroidism: Continue levothyroxine TSH 0.607 (14) Obstructive sleep apnea: Patient with polysomnography exam in 2009 revealed sleep apnea. At that time CPAP titration study was completed and it was recommended the patient be placed on 13 cm of H2O. Patient reports that she has not used CPAP At this time will order CPAP while inpatient at 13 cm of water to be used as tolerated Recommend outpatient polysomnography exam to requalify This is especially important with patient's cardiac history. (15) Anemia: -Chronic. -Lengthy review of old records and patient has hemolytic anemia following hematology -She has had an EGD/colon allergy that were both within normal limits. Normal upper and lower endoscopy, I feel comfortable her continuing her Eliquis and Plavix -Erythropoietin level ordered and pending. May have component of anemia of chronic disease (16) Ambulatory dysfunction: Patient uses a wheelchair and a cane at home as well as a walker Patient states that she is able to ambulate Therapy recommending some type of rehab but patient adamantly refuses DC with PT/OT (17) Diabetic peripheral neuropathy: -Patient states that she had been on Neurontin in the past but currently is not receiving any. -Suspect this was discontinued given her worsening renal dysfunction and current creatinine clearance of 21 (should not use Neurontin with creatinine clearance less than 30) -Topical capsaicin ordered and discomfort improved. (18) Macular degeneration: Currently not on any outpatient eyedrops Patient reports that she gets injections in her eyes from ophthalmology Further management as an outpatient (19) DVT prophylaxis: Plan of care discussed with Dr. Estevez. Discharged home after seen and agreed upon by him Stable for transfer to med/tele Total Time Total Time Spent Total Time Spent (In Minutes): 60 Discharge Plan Discharge Items Patient Disposition: Home - Home Health Services Reason For Visit: ATRIAL FIBRILLATION WITH RAPID VENTRICULAR RESPONS Discharge Diagnosis: 1. Congestive Heart Failure- goal is symptoms management and symptoms are currently managed 2. Atrial Fibrillation (chronic) with Rapid Ventricular Response (heart rate was too fast--> now controlled) Activity: Resume your previous activity Activity Comment: keep legs elevated Non-emergency contact: Primary Care Provider and Hot Wire Glass Tube Cutter Call non-emergency contact if: you have any medication questions and your symptoms worsen Follow-up/Referrals: Domi Wetzel DO [Primary Care Provider] - Madelaine Rothman PA-C [Physician Acid Crane Operator] - 12/14/20 10:00 am Diet: Low Sodium (2gm) Fluids: 1800ml (7 cups) Addtl Attending Provider Instructions: -You were hospitalized with swelling of your legs (CHF) and a heart rate that was too fast (A.Fib with RVR) -The fast heart rate was likely contributing to the fluid accumulation (which is an ongoing problem for you) -Your metoprolol was increased on the day prior to this hospitalization. In addition, you have been started on Digoxin (NOTE THAT THIS IS TO BE GIVEN EVERY OTHER DAY AND NOT DAILY ON ACCOUNT OF YOUR KIDNEY DISEASE) -your Diuretic therapy (Bumex) has not been changed. We need to be very careful with regards to how much and/or how little diuretic therapy that we give you on account of your kidney disease (which is an ongoing problem as well). -Our main focus at this point should be symptoms management: meaning that you will likely always have some degree of swelling in your legs (also, because of your known vascular disease) but if you notice a significant increase in the swelling or that your legs are weeping, OR that you have become short of breath/you have an increased cough/you're waking up in the middle of the night gasping for air/or you have to sleep with the head of you bed MORE inclined than it already is OR you noticed swelling in your abdomen/your pants are fitting tight or a significant jump in your weight. We will never have all of the swelling in your legs resolved. -Again, it was likely the uncontrolled heart rate that led to the CHF exacerbation (flare up) this time around -please be sure to take all medications as outlined -follow up with Madelaine Rothman PA-C in the heart failure clinic as scheduled -Recommend Follow up labs (BMP, CBC and Dig level-- at discretion of cardiology/PCP) -follow up with hematology as scheduled -return to the ED for new or worsening symptoms Pending Studies at Discharge: No Stand-Alone Forms: My [facility] Medications and DC Order Prescriptions: New digoxin [Digitek] 125 mcg (0.125 mg) Tablet 125 mcg PO Q2D@1600 Qty: 15 RF: 0 Zostrix 0.033 % Cream 1 applic EXT TID PRN (Reason: neuropathy) Qty: 56.6 RF: 0 Continued cholecalciferol (vitamin D3) [Vitamin D3] 25 mcg (1,000 unit) tablet 2,000 unit PO QAM RF: 0 Novolog Flexpen U-100 Insulin 100 unit/mL (3 mL) insulin pen 7 - 10 unit subcut TIDM Qty: 45 RF: 1 Eliquis 2.5 mg tablet 2.5 mg PO BID Qty: 180 RF: 1 magnesium oxide 400 mg magnesium tablet 400 mg PO BID Qty: 90 RF: 1 bumetanide 2 mg tablet 2 mg PO BID Qty: 60 RF: 2 acetaminophen [Tylenol Arthritis Pain] 650 mg tablet extended release 1,300 mg PO HS RF: 0 isosorbide mononitrate 30 mg tablet extended release 24 hr 30 mg PO QAM Qty: 90 RF: 1 metoprolol succinate [Toprol XL] 50 mg tablet extended release 24 hr 150 mg PO TID RF: 0 albuterol sulfate [ProAir HFA] 90 mcg/actuation HFA aerosol inhaler 1 - 2 puffs INH Q4H PRN (Reason: shortness of breath or wheezing) Qty: 6.7 RF: 3 triamcinolone acetonide 0.1 % Cream 1 applic EXT BID 14 Days Qty: 30 RF: 0 Lantus Solostar U-100 Insulin 100 unit/mL (3 mL) insulin pen 20 unit subcut HS Qty: 0 RF: 0 mirtazapine [Remeron] 15 mg tablet 15 mg PO QAM RF: 0 clopidogrel [Plavix] 75 mg tablet 75 mg PO QAM RF: 0 allopurinol [Zyloprim] 100 mg tablet 300 mg PO QAM RF: 0 levothyroxine [Synthroid] 50 mcg tablet 50 mcg PO DAILYBB RF: 0 pantoprazole [Protonix] 40 mg tablet,delayed release (DR/EC) 40 mg PO QAM RF: 0 fluticasone propionate [Flonase Allergy Relief] 50 mcg/actuation spray,suspension 1 spray intranasal BID PRN (Reason: allergy symptoms) RF: 0 duloxetine [Cymbalta] 60 mg capsule,delayed release(DR/EC) 60 mg PO QAM RF: 0 potassium chloride [K-Tab] 20 mEq tablet extended release 10 meq PO BID RF: 0 Discontinued cephalexin 250 mg Capsule 250 mg PO TID Qty: 21 RF: 0 doxycycline hyclate 100 mg Capsule 100 mg PO BID@0700,1900 Qty: 14 RF: 0 Discharge Orders: Discharge Order (Routine); Ordered 12/07/20 Ordered By: Madelaine Verduzco/Other Patient Handouts: Digoxin Medicine Level, Taking Digoxin Admission Data Admit Date/Time: 12/06/20 16:41 Attending Provider: Luis Estevez Admit Provider: Dm Tsang Primary Care Provider: Domi Wetzel Other Providers: Donaldo Lopez ; Lon Schwartz ; Almas Reyes ; Nate Roland ; Adrien Arechiga ; Vick Luna Jr ; Harvey Rodas ; Valerie Lopez ; Lana Mc ; Guille Miller ; Guille Azar ; Luis Kraus ; Hayder Ayoub ; Madelaine Rothman ; Jorge L Butcher ; Addy Bravo ; Phillip Maynard Other Interventions: Discharge Summary Assessment (RN) Last Done: 12/07/20 12:34 Supervising Physician Co-Signing Physician Notes I supervised Madelaine Palma PA-C on the care of this patient. I interviewed and examined the patient independently of her. The plan is as written in her note except for any following changes/exceptions: None Doing well today. Minimal swelling that is probably chronic and must be tolerated to avoid further decline in kidney function. She is feeling well today. Will follow closely with Beba Rothman. Coding Level of Care Code D/C DAY MANAGEMENT >30 MINS Diagnoses Aspiration into airway T17.908A Atrial fibrillation I48.91 Atrial fibrillation type: unspecified Bilateral edema of lower extremity R60.0 Venous insufficiency of both lower extremities I87.2 Chronic CHF I50.812 Heart failure type: right-sided Diabetes mellitus, type II E11.9 Chronic kidney disease (CKD) N18.9 H/O scabies Z86.19 History of gout Z87.39 CAD (coronary artery disease) I25.10 GERD (gastroesophageal reflux disease) K21.9 Esophagitis presence: esophagitis presence not specified COPD (chronic obstructive pulmonary disease) J44.9 Hypothyroidism E03.9 Hypothyroidism type: unspecified Obstructive sleep apnea G47.33 Anemia D64.9 Anemia type: unspecified type Ambulatory dysfunction R26.2 Diabetic peripheral neuropathy E11.42 Macular degeneration H35.30 DVT prophylaxis Z29.9 Time Spent (min) 60
== END 2020-12-07 12:55 | disposition home health service (06) | DRG 291 ==
LOC: ED 12:07 → 2S 12:18 → SUATTDRO 18:28 → 2S 19:49 → 2W 12-05 15:30 → 1E 12-06 19:19 → 3W 12-06 21:10

== ENCOUNTER 2021-01-02 22:59 | Inpatient (IN) ==
[2021-01-02] MEDS ORDERED: ONDANSETRON INJ 2 MG/ML 2 ML VIAL IV STA (23:13)
[2021-01-02] MEDS ORDERED: SODIUM CHLORIDE 0.9% 1000ML 1,000 ML IV SCH (23:15)
[2021-01-02 23:51] LABS: Albumin Level 2.4 gm/dl (3.4-5.0); BUN Creatinine Ratio 28.8 (10-20); Calcium 7.3 mg/dl (8.5-10.1); Creatinine Clr Calc Pharmacy 25.4 ml/min; Est GFR (African American) 36.4 ml/min; Est GFR (Non-African American) 31.4 ml/min; Magnesium 1.5 mg/dl (1.8-2.4); Potassium 3.1 mmol/L (3.5-5.1)
[2021-01-02 23:58] LABS: Albumin Globulin Ratio 0.8 (0.9-2); Globulin 3.2 gm/dl (2.5-4.0); Thyroid Stimulating Hormone 0.983 uIu/ml (0.300-4.500); Total Protein 5.6 gm/dl (6.4-8.2)
[2021-01-03 00:02] LABS: Hematocrit (blood only) 21.4 % (37-47); Hemoglobin 6.5 g/dL (12.0-16.0); Mean Corpuscular Hemoglobin 34.8 pg (25-34); Mean Corpuscular Hgb Conc 30.4 g/dL (32-36); Mean Corpuscular Volume 114.4 fL (80-100); Mean Platelet Volume 13.1 fL (7.4-10.4); Nucleated RBC # (auto) 0.17 K/uL (0-0); Nucleated RBC % (auto) 1.2 %; Platelet Count 242 K/uL (130-400); RDW Standard Deviation 98.3 fL (36.4-46.3); Red Blood Count 1.87 M/uL (4.2-5.4); White Blood Count 14.36 K/uL (4.8-10.8)
[2021-01-03 00:26] LABS: Anisocytosis Present; Basophils # (auto) 0.02 K/uL (0-0.2); Basophils % (auto) 0.1 %; Eosinophils # (auto) 0.03 K/uL (0-0.5); Eosinophils % (auto) 0.2 %; Immature Granulocytes # (auto) 0.18 K/uL (0.00-0.02); Immature Granulocytes % (auto) 1.3 %; Lymphocytes # (auto) 0.23 K/uL (1.2-3.4); Lymphocytes % (auto) 1.6 %; Monocytes # (auto) 0.85 K/uL (0.11-0.59); Monocytes % (auto) 5.9 %; Neutrophils # (auto) 13.05 K/uL (1.4-6.5); Neutrophils % (auto) 90.9 %; Ovalocytes 2+; Polychromasia 1+
[2021-01-03] MEDS ORDERED: SODIUM CHLORIDE 0.9% 250 ML IV PRN (00:30)
[2021-01-03 00:38] LABS: Appearance Urine Clear (Clear); Bilirubin Urine Negative (Negative); Blood Urine Negative (Negative); Color Urine Yellow; Glucose Urine UA Negative (Negative); Ketones Urine Negative (Negative); Leukocyte Esterase Urine Negative (Negative); Nitrite Urine Negative (Negative); Protein Urine Negative (Negative); Specific Gravity Urine 1.013 (1.000-1.030); Urobilinogen Urine Negative (Negative); pH Urine 6.5 (4.5-7.5)
[2021-01-03] MEDS ORDERED: PANTOPRAZOLE BOLUS/DRIP 1 EA IV STA (01:45)
[2021-01-03] MEDS ORDERED: PANTOprazole 80 MG in DEXTROSE 5% 100 ML IV ONE (01:45)
[2021-01-03] MEDS ORDERED: ACETAMINOPHEN 325 MG TAB ONE (02:55)
[2021-01-03] MEDS: PANTOprazole 40 MG in DEXTROSE 5% 100 ML IV SCH ×4 (04:00→19:12)
--- NOTE | 2021-01-03 04:26 | History & Physical Report ---
Date of Service January 03, 2021 Assessment & Plan (1) Anemia due to blood loss, acute: Plan: Anemia due to acute blood loss/nausea vomiting/hematemesis/GERD- NPO Continue Protonix bolus then drip begun in ED Hold clopidogrel and apixaban H&H every 6 hours Receiving 2 units PRBCs from the ED. NSS at 80 mils per hour, can be held during transfusion. Consult gastroenterology (2) Hematemesis: Plan: See above (3) Nausea & vomiting: Plan: Zofran 4 mg IV every 6 hours as needed (4) Diabetes mellitus, type II: Plan: Hold insulin glargine and 3 times daily meal coverage Place on Accu-Cheks before meals and at bedtime with NovoLog coverage per scale (5) CAD (coronary artery disease): Plan: CAD/hypertension/atrial fibrillation/hypokalemia- Hold apixaban and clopidogrel due to GI bleed Hold all other medications: Bumetanide, digoxin, isosorbide mononitrate, Klor- Con and metoprolol succinate Lopressor 5 mg IV every 4 hours as needed systolic blood pressure greater than 160 KCl 10 mEq IV riders x2 (6) Atrial fibrillation: Plan: See above (7) GERD (gastroesophageal reflux disease): Plan: See above (8) COPD (chronic obstructive pulmonary disease): Plan: Hold albuterol HFA DuoNebs every 2 hours as needed (9) Hypothyroidism: Plan: Hold levothyroxine 50 mcg until able to take p.o. (10) Diabetic peripheral neuropathy: Plan: Diabetic peripheral neuropathy/RLS type symptoms hold gabapentin while n.p.o. Morphine 2 mg IV every 4 hours as needed (11) Depression with anxiety: Plan: Hold oral medications Lorazepam 0.5 mg IV every 6 hours as needed (12) Hypertension: Plan: See above (13) Obstructive sleep apnea: Plan: CPAP at bedtime History of Present Illness Chief Complaint: The patient presents to the emergency department with 3 days of persistent and worsening abdominal discomfort and vomiting. Primary Care Provider: Domi Wetzel DO Patient is a an 85-year-old female with a past medical history including severe tricuspid regurgitation, severe pulmonary hypertension, SNHL of both ears, mitral regurgitation, hyperlipidemia, gout, diabetic peripheral neuropathy, depression with anxiety, atrial fibrillation, BETHANY, CKD, hypothyroidism, status post implantation of urinary electric stimulator device, COPD, CAD, chronic venous insufficiency and chronic diastolic CHF. Patient presents with 3 days of persistent nausea, vomiting abdominal discomfort. She only presented to the ED today because her son insisted that she come here. Allergies Allergy/AdvReac Type Severity Reaction Status Date / Time shellfish derived Allergy Severe ANAPHYLAXIS Verified 01/03/21 00:39 iodine Allergy Intermediate ANAPHYLAXIS Verified 01/03/21 00:39 lisinopril Allergy Unknown Unknown Verified 01/03/21 00:39 oxybutynin [From Ditropan] Allergy Unknown Unknown Verified 01/03/21 00:39 sertraline [From Zoloft] Allergy Unknown Unknown Verified 01/03/21 00:39 paroxetine AdvReac Mild GI UPSET Verified 01/03/21 00:39 Home Medications Medication Instructions Recorded Confirmed Type albuterol sulfate 90 mcg/actuation 1 - 2 puffs INH Q4H PRN #6.7 gm 04/26/19 01/03/21 Rx aerosol inhaler (ProAir HFA) isosorbide mononitrate 30 mg 30 mg PO QAM #90 tab 04/30/20 01/03/21 Rx tablet,extended release 24 hr acetaminophen 650 mg 1,300 mg PO HS tab 05/11/20 01/03/21 History tablet,extended release (Tylenol Arthritis Pain) cholecalciferol (vitamin D3) 25 2,000 unit PO QAM tab 05/11/20 01/03/21 History mcg (1,000 unit) tablet (Vitamin D3) apixaban 2.5 mg tablet (Eliquis) 2.5 mg PO BID #180 tab 08/06/20 01/03/21 Rx magnesium oxide 400 mg PO BID #90 tab 10/02/20 01/03/21 Rx allopurinol 100 mg tablet 300 mg PO QAM 11/07/20 01/03/21 History (Zyloprim) clopidogrel 75 mg tablet (Plavix) 75 mg PO QAM 11/07/20 01/03/21 History duloxetine 60 mg capsule,delayed 60 mg PO QAM 11/07/20 01/03/21 History release (Cymbalta) fluticasone propionate 50 1 spray INTRANASAL BID PRN 11/07/20 01/03/21 History mcg/actuation nasal spray,suspension (Flonase Allergy Relief) mirtazapine 15 mg tablet (Remeron) 15 mg PO QAM 11/07/20 01/03/21 History potassium chloride 20 mEq 10 meq PO BID 11/07/20 01/03/21 History tablet,extended release (K-Tab) bumetanide 2 mg tablet 2 mg PO BID #60 tab 12/03/20 01/03/21 Rx capsaicin 0.033 % topical cream 1 applic EXT TID PRN #56.6 g 12/07/20 01/03/21 Rx (Zostrix) digoxin 125 mcg (0.125 mg) tablet 125 mcg PO Q2D@1600 #15 tab 12/07/20 01/03/21 Rx (Digitek) metoprolol succinate 50 mg 150 mg PO BID tab 12/14/20 01/03/21 History tablet,extended release 24 hr (Toprol XL) insulin aspart U-100 100 unit/mL 7 - 10 unit SUBCUT TIDM #45 ml 12/17/20 01/03/21 Rx (3 mL) subcutaneous pen (Novolog Flexpen U-100 Insulin aspart) insulin glargine 100 unit/mL (3 20 unit SUBCUT HS #15 ml 12/17/20 01/03/21 Rx mL) subcutaneous pen (Lantus Solostar U-100 Insulin) levothyroxine 50 mcg tablet 50 mcg PO DAILYBB #30 tab 12/19/20 01/03/21 Rx (Synthroid) pantoprazole 40 mg tablet,delayed 40 mg PO QAM #90 tab 12/19/20 01/03/21 Rx release (Protonix) gabapentin 800 mg tablet 800 mg PO DAILY 12/24/20 01/03/21 History mupirocin 2 % topical ointment 1 applic TOPICAL BID #30 g 12/26/20 01/03/21 Rx Past Med/Surg History Medical History Anemia Asthma Atrial fibrillation CAD (coronary artery disease) Cerebrovascular disease Chronic diastolic congestive heart failure Chronic kidney disease (CKD) COPD (chronic obstructive pulmonary disease) Depression with anxiety Diabetes mellitus with renal complications Diabetes mellitus, type II Diabetic peripheral neuropathy Generalized osteoarthritis GERD (gastroesophageal reflux disease) History of gout Hyperlipidemia Hypertension Hypothyroidism Lichen planus Macular degeneration Mitral regurgitation Neurologic gait dysfunction Obstructive sleep apnea Sensorineural hearing loss (SNHL) of both ears Venous insufficiency of both lower extremities Surgical History H/O colonoscopy History of repair of rectocele S/P breast biopsy S/P section S/P cholecystectomy S/P hysterectomy S/P implantation of urinary electronic stimulator device Family History Father No problems noted. Mother No problems noted. Other Coronary heart disease Denies family history of Ovarian cancer Prostate cancer Crohn's disease Breast cancer Lung cancer Colorectal cancer Social History Smoking Status: Never smoker Second Hand Exposure: No; Hx Alcohol Use: No Hx Substance Use: No Preferred Language: Upper Sorbian Communication Ability: Effective Visual Impairment: No Limitations Hearing Ability: Normal Cisco Administrator Required: No Beliefs That Will Affect Care: None marital status: Life Partner Current Living Situation: Significant Other Current Living Situation Comment: lives with Calderon Cordoba life partner current occupational status: retired Feels Safe at Home: Yes Childhood Exposure to Second-Hand Smoke: No Dental Care, Regularly: Yes Physical Activity Frequency: 1-2 Times per Week Physical Activity Frequency Comment: physical therapy Seatbelt Use: always Sunscreen Use: Yes Assistive Devices: Glasses Review of Systems Review of Systems: The patient denies chest pain, palpitations, lower extremity swelling, sore throat, fevers, chills, sweats, diarrhea , constipation, blood in urine or stool, dysuria, urinary frequency or urgency, lightheadedness, dizziness, headache, memory loss, loss of consciousness, rash, imbalance, focal weakness, numbness or tingling in arms or legs, back or neck pain, or night sweats. The review of systems is otherwise negative other than for that already noted above, and at least 10 systems have been reviewed. Physical Exam Physical Exam: The patient is awake, alert and oriented 3, well developed and well nourished, normocephalic and atraumatic, lying in bed and in intermittent distress secondary to abdominal pelvic pain and RLS type symptoms HEENT--PERRL, EOMI, mucous membranes and oropharynx dry. Neck--supple. No JVD. No bruits. Thyroid normal, trachea midline, no adenopathy. Heart--normal S1 and S2. No murmurs, rubs or gallops. Lungs--clear bilaterally, no respiratory distress, no accessory muscle use. Abdomen--decreased bowel sounds, soft. Generalized tenderness. Nondistended, no hernias or masses, no organomegaly. Extremities--no cyanosis or clubbing. No edema. Dermatologic--normal skin turgor, normal color, no abnormal lymph nodes, no rash. Neurologic--cranial nerves II through XII grossly intact. Rheumatologic--normal range of motion. Psychiatric--normal affect. Results & Data Results & Data ([facility]) Vital Signs (Past 12 Hours) Vital Signs Temp Pulse Pulse Resp BP BP Pulse Ox 01/03/21 04:17 98.6 F 91 H 14 146/70 H 93 01/03/21 03:55 98.6 F 102 H 16 152/74 H 97 01/03/21 03:25 98.2 F 100 H 17 109/52 L 95 01/03/21 01:54 98.1 F 85 23 150/81 H 96 01/03/21 01:00 94 H 137/73 94 01/03/21 00:48 78 16 154/70 H 96 01/02/21 23:37 95 01/02/21 23:02 98.7 F 88 14 169/97 H 96 Laboratory Results Laboratory Results WBC 14.36 K/uL (4.8-10.8) H 01/02/21 23:18 RBC 1.87 M/uL (4.2-5.4) L 01/02/21 23:18 Hgb 6.5 g/dL (12.0-16.0) L* 01/02/21 23:18 Hct 21.4 % (37-47) L 01/02/21 23:18 MCV 114.4 fL (80-100) H 01/02/21 23:18 MCH 34.8 pg (25-34) H 01/02/21 23:18 MCHC 30.4 g/dL (32-36) L 01/02/21 23:18 RDW Std Deviation 98.3 fL (36.4-46.3) H 01/02/21 23:18 RDW Coeff of Talia 26.0 % (11.5-14.5) H 01/02/21 23:18 Plt Count 242 K/uL (130-400) 01/02/21 23:18 MPV 13.1 fL (7.4-10.4) H 01/02/21 23:18 Immature Gran % (Auto) 1.3 % 01/02/21 23:18 Neut % (Auto) 90.9 % 01/02/21 23:18 Lymph % (Auto) 1.6 % 01/02/21 23:18 [place] % (Auto) 5.9 % 01/02/21 23:18 Eos % (Auto) 0.2 % 01/02/21 23:18 Baso % (Auto) 0.1 % 01/02/21 23:18 Neut # (Auto) 13.05 K/uL (1.4-6.5) H 01/02/21 23:18 Lymph # (Auto) 0.23 K/uL (1.2-3.4) L 01/02/21 23:18 [place] # (Auto) 0.85 K/uL (0.11-0.59) H 01/02/21 23:18 Eos # (Auto) 0.03 K/uL (0-0.5) 01/02/21 23:18 Baso # (Auto) 0.02 K/uL (0-0.2) 01/02/21 23:18 Immature Gran # (Auto) 0.18 K/uL (0.00-0.02) H 01/02/21 23:18 Absolute Nucleated RBC 0.17 K/uL (0-0) H 01/02/21 23:18 Nucleated RBC % (auto) 1.2 % 01/02/21 23:18 Polychromasia 1+ 01/02/21 23:18 Anisocytosis Present 01/02/21 23:18 Ovalocytes 2+ 01/02/21 23:18 Sodium 141 mmol/L (136-145) 01/02/21 23:18 Potassium 3.1 mmol/L (3.5-5.1) L 01/02/21 23:18 Chloride 106 mmol/L (98-107) 01/02/21 23:18 Carbon Dioxide 26 mmol/L (21-32) 01/02/21 23:18 Anion Gap 9.0 (3-11) 01/02/21 23:18 BUN 44 mg/dl (7-18) H 01/02/21 23:18 Creatinine 1.52 mg/dl (0.6-1.2) H 01/02/21 23:18 Est Cr Clr Drug Dosing 25.4 ml/min 01/02/21 23:18 Est GFR ( Amer) 36.4 ml/min 01/02/21 23:18 Est GFR (Non-Af Amer) 31.4 ml/min 01/02/21 23:18 BUN/Creatinine Ratio 28.8 (10-20) H 01/02/21 23:18 Glucose 165 mg/dl (70-99) H 01/02/21 23:18 Lactate 3.2 mmol/L (0.4-2.0) H* 01/03/21 01:00 Calcium 7.3 mg/dl (8.5-10.1) L 01/02/21 23:18 Magnesium 1.5 mg/dl (1.8-2.4) L 01/02/21 23:18 Total Bilirubin 3.0 mg/dl (0.2-1) H 01/02/21 23:18 AST 39 U/L (15-37) H 01/02/21 23:18 ALT 30 U/L (12-78) 01/02/21 23:18 Alkaline Phosphatase 195 U/L (45-117) H 01/02/21 23:18 Total Protein 5.6 gm/dl (6.4-8.2) L 01/02/21 23:18 Albumin 2.4 gm/dl (3.4-5.0) L 01/02/21 23:18 Globulin 3.2 gm/dl (2.5-4.0) 01/02/21 23:18 Albumin/Globulin Ratio 0.8 (0.9-2) L 01/02/21 23:18 TSH 0.983 uIu/ml (0.300-4.500) 01/02/21 23:18 Specimen Hemolysis 01/02/21 23:18 Urine Color Yellow 01/03/21 00:19 Urine Appearance Clear (Clear) 01/03/21 00:19 Urine pH 6.5 (4.5-7.5) 01/03/21 00:19 Ur Specific [place] 1.013 (1.000-1.030) 01/03/21 00:19 Urine Protein Negative (Negative) 01/03/21 00:19 Urine Glucose (UA) Negative (Negative) 01/03/21 00:19 Urine Ketones Negative (Negative) 01/03/21 00:19 Urine Blood Negative (Negative) 01/03/21 00:19 Urine Nitrite Negative (Negative) 01/03/21 00:19 Urine Bilirubin Negative (Negative) 01/03/21 00:19 Urine Urobilinogen Negative (Negative) 01/03/21 00:19 Ur Leukocyte Esterase Negative (Negative) 01/03/21 00:19 COVID-19 Eval Order Cov[facility]19 at [facility] 01/02/21 23:35 SARS-CoV-2 (PCR) NEGATIVE (Negative) 01/02/21 23:35 Blood Type A Positive 01/03/21 00:49 Antibody Screen NEGATIVE 01/03/21 00:49 Crossmatch See Detail 01/03/21 00:49 Code Status & VTE Plan Code Status Full code VTE Prophylaxis Plan VTE Prophylaxis will be ordered: Yes PG Care Time/CCT Total # of Minutes Spent Total Time Spent with Patient: Total time spent is greater than 50% in coordination of care (as documented) at patient's floor/unit and/or counseling patient: Coding Level of Care Code 37870 Initial Inpt Care Lvl 3 Diagnoses Hematemesis K92.0 Nausea & vomiting R11.2 Vomiting Intractability: non-intractable Vomiting type: unspecified Diabetic peripheral neuropathy E11.42 Depression with anxiety F41.8 Atrial fibrillation I48.91 Atrial fibrillation type: unspecified Obstructive sleep apnea G47.33 GERD (gastroesophageal reflux disease) K21.9 Esophagitis presence: esophagitis presence not specified CAD (coronary artery disease) I25.10 COPD (chronic obstructive pulmonary disease) J44.9 Hypothyroidism E03.9 Hypothyroidism type: unspecified Hypertension I10 Diabetes mellitus, type II E11.9 Anemia due to blood loss, acute D62 (1) Nausea & vomiting Vomiting Intractability: non-intractable Vomiting type: unspecified Qualified Code(s): R11.2 - Nausea with vomiting, unspecified (2) Atrial fibrillation Atrial fibrillation type: unspecified Qualified Code(s): I48.91 - Unspecified atrial fibrillation (3) GERD (gastroesophageal reflux disease) Esophagitis presence: esophagitis presence not specified Qualified Code(s): K21.9 - Gastro-esophageal reflux disease without esophagitis (4) Hypothyroidism Hypothyroidism type: unspecified Qualified Code(s): E03.9 - Hypothyroidism, unspecified
[2021-01-03] MEDS ORDERED: MoRPHine SULFATE 2 MG/ML CARP IV PRN (04:54)
[2021-01-03] MEDS ORDERED: ALBUT/IPRATROP 3MG/0.5MG NEB 3 ML VIAL NEB PRN (06:16)
[2021-01-03] MEDS ORDERED: LORazepam 0.5 MG/1 ML VIAL IV PRN (06:18)
[2021-01-03] MEDS ORDERED: METOPROLOL TARTRATE 1 MG/ML VIAL IV PRN (06:23)
[2021-01-03] MEDS ORDERED: ONDANSETRON INJ 2 MG/ML 2 ML VIAL IV PRN (06:26)
[2021-01-03] MEDS ORDERED: DEXTROSE 50% 50 ML SYRINGE IV PRN (06:26)
[2021-01-03] MEDS ORDERED: GLUCOSE 40% GEL 15 GM TUBE PO PRN (06:26)
[2021-01-03] MEDS ORDERED: GLUCAGON FOR INJ 1 MG VIAL SQ PRN (06:26)
[2021-01-03] MEDS ORDERED: GLUCOSE 10 TABS/TUBE PO PRN (06:26)
[2021-01-03] MEDS ORDERED: CARBOHYDRATES FOR HYPOGLYCEMIA PO PRN (06:26)
--- NOTE | 2021-01-03 06:44 | Emergency Department Note ---
Impression & Plan GIB (gastrointestinal bleeding), Anemia ED Provider Note CHIEF COMPLAINT: Vomiting HISTORY OF PRESENT ILLNESS: This patient presents to the emergency department with complaints of vomiting for the last 5 days. Patient states she has mid abdominal pain that radiates to the lower abdomen. She denies any blood in the emesis. She has not been able to keep any fluids down. Patient denies diarrhea but states she was incontinent of a formed stool just prior to arrival. She denies any difficulty with urination, fevers, chest pain or shortness of breath. She does have a history of cardiac disease and states she has received several blood transfusions in [place] the last of which was 2 years ago. She states she does take aspirin and Eliquis. REVIEW OF SYSTEMS: Please refer to HPI, at least 10 systems reviewed and otherwise negative. MEDICATIONS: See below PMH: CAD status post VT, anemia, PRBC transfusion SOCIAL HISTORY: Patient lives with her boyfriend, retired PHYSICAL EXAM: Vital signs reviewed. General: Chronically ill appearing 85 yo female, in no significant distress. HEENT: No scleral icterus, PERRLA, neck supple. Atraumatic. Cardiovascular: Regular rate and rhythm, no extra sounds. Pulmonary: Clear to auscultation bilaterally, normal work of breathing. Abdomen: Soft, tender to palpation over the epigastric region and periumbilical region. Minimal tenderness to the left lower quadrant. Mild tympany to percussion over the epigastrium. Nondistended, positive bowel sounds. Rectal:Guaiac positive brown stool, no gross blood. Normal mucosa. Musculoskeletal: Atraumatic, no peripheral edema. Neurologic: Patient awake alert and oriented x 3 Skin: Warm, dry, no rash VITALS: Vitals are noted on the nurse's note and reviewed by myself. Vital signs stable. EMERGENCY DEPARTMENT COURSE: This patient was evaluated and appeared to be in some discomfort. IV access was obtained and laboratory work was drawn. An order for cardiac monitoring was placed and the patient was noted to be in atrial fibrillation at 78 bpm. Patient was hydrated with normal saline so lution, given IV Zofran 4 mg. Laboratory work reveals hemoglobin of 6.8. The patient was typed and crossed for 2 units of PRBCs. Blood consent was signed. Rectal exam was performed and reveals a soft medium brown guaiac positive stool. Patient was placed on a Protonix bolus and drip. Patient was medicated with magnesium 2 g IV for repletion. CT scan of the abdomen pelvis was performed due to a leukocytosis. Patient's case was discussed with the hospitalist service who will evaluate the patient for admission and further management. Patient was made aware of the plan and agreed. EKG: atrial fibrillation at 90 bpm. QTc normal, ST and T wave abnl. no PVC, no PAC. I have personally spent 45 minutes of critical care time in the direct management of this patient. This was a life threatening event. This 45 minutes is in excess of all separately billable procedures. DIAGNOSIS: Vomiting, anemia, GI bleed, dehydration, hypomagnesemia Disposition: Hospitalist evaluation and admission. Past Med/Surg History Medical History Anemia Chronic macrocytic Asthma Atrial fibrillation CAD (coronary artery disease) Cerebrovascular disease Chronic diastolic congestive heart failure Chronic kidney disease (CKD) Stage III, baseline Cr 1.3-1.5mg/dL. Complicated with normocytic anemia and secondary hyperparathyroidism. Followed by nephrology. 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 Cannot perform MRI due to bladder implant. Followed by pain management. Epidural steroid injections with improvement of pain. Evaluated by ortho, decided against surgery. Managed with gabapentin 300mg TID + APAP PRN + tapentadol 50mg BID PRN GERD (gastroesophageal reflux disease) History of gout Managed with allopruinol daily. No recent gouty attacks. Uric acid suppressed 3.4 mg/dl (12/22) Hyperlipidemia Secondary prevention with moderate intensity statin (atorvastatin 20mg daily) Hypertension Hypothyroidism Lichen planus Macular degeneration Mitral regurgitation Neurologic gait dysfunction Obstructive sleep apnea Long standing. Managed with CPAP nightly. CPAP titration polysomnography (07/14). Sensorineural hearing loss (SNHL) of both ears Venous insufficiency of both lower extremities Surgical History H/O colonoscopy History of repair of rectocele S/P breast biopsy S/P section S/P cholecystectomy S/P hysterectomy S/P implantation of urinary electronic stimulator device Family History Father , Age 64 No problems noted. Mother , Age 61 No problems noted. Other Coronary heart disease Denies family history of Ovarian cancer Prostate cancer Crohn's disease Breast cancer Lung cancer Colorectal cancer Social History Smoking Status: Never smoker Second Hand Exposure: No; Hx Alcohol Use: No Hx Substance Use: No Preferred Language: Bermudian Communication Ability: Effective Visual Impairment: No Limitations Hearing Ability: Normal Public Service Representative Required: No Beliefs That Will Affect Care: None marital status: / Current Living Situation: Significant Other Current Living Situation Comment: lives with Calderon mondragon partner current occupational status: retired Feels Safe at Home: Yes Childhood Exposure to Second-Hand Smoke: No Dental Care, Regularly: Yes Physical Activity Frequency: 1-2 Times per Week Physical Activity Frequency Comment: physical therapy Seatbelt Use: always Sunscreen Use: Yes Assistive Devices: None Allergies Allergies Allergy/AdvReac Type Severity Reaction Status Date / Time shellfish derived Allergy Severe ANAPHYLAXIS Verified 01/03/21 00:39 iodine Allergy Intermediate ANAPHYLAXIS Verified 01/03/21 00:39 lisinopril Allergy Unknown Unknown Verified 01/03/21 00:39 oxybutynin [From Ditropan] Allergy Unknown Unknown Verified 01/03/21 00:39 sertraline [From Zoloft] Allergy Unknown Unknown Verified 01/03/21 00:39 paroxetine AdvReac Mild GI UPSET Verified 01/03/21 00:39 Home Meds Home Medications Medication Instructions Recorded Confirmed acetaminophen 650 mg 1,300 mg PO HS tab 05/11/20 01/03/21 tablet,extended release (Tylenol Arthritis Pain) cholecalciferol (vitamin D3) 25 2,000 unit PO QAM tab 05/11/20 01/03/21 mcg (1,000 unit) tablet (Vitamin D3) allopurinol 100 mg tablet 300 mg PO QAM 11/07/20 01/03/21 (Zyloprim) clopidogrel 75 mg tablet (Plavix) 75 mg PO QAM 11/07/20 01/03/21 duloxetine 60 mg capsule,delayed 60 mg PO QAM 11/07/20 01/03/21 release (Cymbalta) fluticasone propionate 50 1 spray INTRANASAL BID PRN 11/07/20 01/03/21 mcg/actuation nasal spray,suspension (Flonase Allergy Relief) mirtazapine 15 mg tablet (Remeron) 15 mg PO QAM 11/07/20 01/03/21 potassium chloride 20 mEq 10 meq PO BID 11/07/20 01/03/21 tablet,extended release (K-Tab) metoprolol succinate 50 mg 150 mg PO BID tab 12/14/20 01/03/21 tablet,extended release 24 hr (Toprol XL) gabapentin 800 mg tablet 800 mg PO DAILY 12/24/20 01/03/21 Previous Rx's Medication Instructions Recorded albuterol sulfate 90 mcg/actuation 1 - 2 puffs INH Q4H PRN #6.7 gm 04/26/19 aerosol inhaler (ProAir HFA) isosorbide mononitrate 30 mg 30 mg PO QAM #90 tab 04/30/20 tablet,extended release 24 hr apixaban 2.5 mg tablet (Eliquis) 2.5 mg PO BID #180 tab 08/06/20 magnesium oxide 400 mg PO BID #90 tab 10/02/20 bumetanide 2 mg tablet 2 mg PO BID #60 tab 12/03/20 capsaicin 0.033 % topical cream 1 applic EXT TID PRN #56.6 g 12/07/20 (Zostrix) digoxin 125 mcg (0.125 mg) tablet 125 mcg PO Q2D@1600 #15 tab 12/07/20 (Digitek) insulin aspart U-100 100 unit/mL 7 - 10 unit SUBCUT TIDM #45 ml 12/17/20 (3 mL) subcutaneous pen (Novolog Flexpen U-100 Insulin aspart) insulin glargine 100 unit/mL (3 20 unit SUBCUT HS #15 ml 12/17/20 mL) subcutaneous pen (Lantus Solostar U-100 Insulin) levothyroxine 50 mcg tablet 50 mcg PO DAILYBB #30 tab 12/19/20 (Synthroid) pantoprazole 40 mg tablet,delayed 40 mg PO QAM #90 tab 12/19/20 release (Protonix) mupirocin 2 % topical ointment 1 applic TOPICAL BID #30 g 12/26/20 cephalexin 750 mg capsule (Keflex) 750 mg PO BID #6 cap 01/10/21 hydrocortisone 1 % topical cream 1 applic TOPICAL BID #28.4 g 01/10/21 (Ala-Kushal) multivitamin-ferrous 1 tab PO QAM #30 tab 01/10/21 fumarate-folic acid 18 mg-400 mcg tablet (Certavite-Antioxidant) polysaccharide iron complex 150 mg 150 mg PO DAILY #30 cap 01/10/21 iron capsule (Ferrex) Results & Data (ED) Vital Signs Vital Signs - 24 hr 01/02/21 23:02 01/02/21 23:37 01/03/21 00:48 Temperature 37.1 C Temperature Source Oral Pulse Rate 88 Pulse Rate [Left Apical] 78 Respiratory Rate 14 16 Respiratory Effort / Characteristics Non-Labored Spontaneous Non-Labored Spontaneous Respiratory Depth Normal Normal Blood Pressure 169/97 H Blood Pressure [Right Arm] 154/70 H Blood Pressure Mean 121 Blood Pressure Mean [Right Arm] 98 Blood Pressure Position Lying Blood Pressure Position [Right Arm] Lying Pulse Oximetry 96 95 96 Oxygen Delivery Method Room Air Room Air Room Air Sepsis Recent Fever Within 48 Hours No Sepsis New/Unexplained Change in Mental Status No Sepsis Action Taken by Nursing No Action Required 01/03/21 01:00 01/03/21 01:54 01/03/21 03:25 Temperature 36.7 C 36.8 C Temperature Source Oral Oral Pulse Rate 94 H 85 Pulse Rate [Left Apical] 100 H Respiratory Rate 23 17 Respiratory Effort / Characteristics Non-Labored Spontaneous Respiratory Depth Normal Blood Pressure 137/73 150/81 H Blood Pressure [Right Arm] 109/52 L Blood Pressure Mean 94 104 Blood Pressure Mean [Right Arm] 71 Blood Pressure Position Blood Pressure Position [Right Arm] Lying Pulse Oximetry 94 96 95 Oxygen Delivery Method Room Air Room Air Sepsis Recent Fever Within 48 Hours Sepsis New/Unexplained Change in Mental Status Sepsis Action Taken by Nursing 01/03/21 03:55 01/03/21 04:17 Temperature 37 C 37 C Temperature Source Oral Oral Pulse Rate Pulse Rate [Left Apical] 102 H 91 H Respiratory Rate 16 14 Respiratory Effort / Characteristics Non-Labored Spontaneous Non-Labored Spontaneous Respiratory Depth Normal Normal Blood Pressure Blood Pressure [Right Arm] 152/74 H 146/70 H Blood Pressure Mean Blood Pressure Mean [Right Arm] 100 95 Blood Pressure Position Blood Pressure Position [Right Arm] Lying Lying Pulse Oximetry 97 93 Oxygen Delivery Method Room Air Room Air Sepsis Recent Fever Within 48 Hours Sepsis New/Unexplained Change in Mental Status Sepsis Action Taken by Nursing Laboratory Data Attestation: I reviewed the patient's lab results. Result diagrams: 01/10/21 05:28 01/10/21 05:28 Lab Results 01/02/21 01/02/21 01/02/21 Range/Units 23:18 23:18 23:18 WBC 14.36 H (4.8-10.8) K/uL RBC 1.87 L (4.2-5.4) M/uL Hgb 6.5 L* (12.0-16.0) g/dL Hct 21.4 L (37-47) % MCV 114.4 H (80-100) fL MCH 34.8 H (25-34) pg MCHC 30.4 L (32-36) g/dL RDW Std Deviation 98.3 H (36.4-46.3) fL RDW Coeff of Talia 26.0 H (11.5-14.5) % Plt Count 242 (130-400) K/uL MPV 13.1 H (7.4-10.4) fL Immature Gran % (Auto) 1.3 % Neut % (Auto) 90.9 % Lymph % (Auto) 1.6 % Gregg % (Auto) 5.9 % Eos % (Auto) 0.2 % Baso % (Auto) 0.1 % Neut # (Auto) 13.05 H (1.4-6.5) K/uL Lymph # (Auto) 0.23 L (1.2-3.4) K/uL Gregg # (Auto) 0.85 H (0.11-0.59) K/uL Eos # (Auto) 0.03 (0-0.5) K/uL Baso # (Auto) 0.02 (0-0.2) K/uL Immature Gran # (Auto) 0.18 H (0.00-0.02) K/uL Absolute Nucleated RBC 0.17 H (0-0) K/uL Nucleated RBC % (auto) 1.2 % Polychromasia 1+ Anisocytosis Present Ovalocytes 2+ Sodium 141 (136-145) mmol/L Potassium 3.1 L (3.5-5.1) mmol/L Chloride 106 (98-107) mmol/L Carbon Dioxide 26 (21-32) mmol/L Anion Gap 9.0 (3-11) BUN 44 H (7-18) mg/dl Creatinine 1.52 H (0.6-1.2) mg/dl Est Cr Clr Drug Dosing 25.4 ml/min Est GFR ( Amer) 36.4 ml/min Est GFR (Non-Af Amer) 31.4 ml/min BUN/Creatinine Ratio 28.8 H (10-20) Glucose 165 H (70-99) mg/dl Lactate 2.6 H* (0.4-2.0) mmol/L Calcium 7.3 L (8.5-10.1) mg/dl Magnesium 1.5 L (1.8-2.4) mg/dl Total Bilirubin 3.0 H (0.2-1) mg/dl AST 39 H (15-37) U/L ALT 30 (12-78) U/L Alkaline Phosphatase 195 H (45-117) U/L Total Protein 5.6 L (6.4-8.2) gm/dl Albumin 2.4 L (3.4-5.0) gm/dl Globulin 3.2 (2.5-4.0) gm/dl Albumin/Globulin Ratio 0.8 L (0.9-2) TSH 0.983 (0.300-4.500) uIu/ml Specimen Hemolysis Urine Color Urine Appearance (Clear) Urine pH (4.5-7.5) Ur Specific Superior (1.000-1.030) Urine Protein (Negative) Urine Glucose (UA) (Negative) Urine Ketones (Negative) Urine Blood (Negative) Urine Nitrite (Negative) Urine Bilirubin (Negative) Urine Urobilinogen (Negative) Ur Leukocyte Esterase (Negative) COVID-19 Eval Order SARS-CoV-2 (PCR) (Negative) Blood Type Antibody Screen Crossmatch 01/02/21 01/02/21 01/03/21 Range/Units 23:35 23:35 00:19 WBC (4.8-10.8) K/uL RBC (4.2-5.4) M/uL Hgb (12.0-16.0) g/dL Hct (37-47) % MCV (80-100) fL MCH (25-34) pg MCHC (32-36) g/dL RDW Std Deviation (36.4-46.3) fL RDW Coeff of Talia (11.5-14.5) % Plt Count (130-400) K/uL MPV (7.4-10.4) fL Immature Gran % (Auto) % Neut % (Auto) % Lymph % (Auto) % Gregg % (Auto) % Eos % (Auto) % Baso % (Auto) % Neut # (Auto) (1.4-6.5) K/uL Lymph # (Auto) (1.2-3.4) K/uL Gregg # (Auto) (0.11-0.59) K/uL Eos # (Auto) (0-0.5) K/uL Baso # (Auto) (0-0.2) K/uL Immature Gran # (Auto) (0.00-0.02) K/uL Absolute Nucleated RBC (0-0) K/uL Nucleated RBC % (auto) % Polychromasia Anisocytosis Ovalocytes Sodium (136-145) mmol/L Potassium (3.5-5.1) mmol/L Chloride (98-107) mmol/L Carbon Dioxide (21-32) mmol/L Anion Gap (3-11) BUN (7-18) mg/dl Creatinine (0.6-1.2) mg/dl Est Cr Clr Drug Dosing ml/min Est GFR ( Amer) ml/min Est GFR (Non-Af Amer) ml/min BUN/Creatinine Ratio (10-20) Glucose (70-99) mg/dl Lactate (0.4-2.0) mmol/L Calcium (8.5-10.1) mg/dl Magnesium (1.8-2.4) mg/dl Total Bilirubin (0.2-1) mg/dl AST (15-37) U/L ALT (12-78) U/L Alkaline Phosphatase (45-117) U/L Total Protein (6.4-8.2) gm/dl Albumin (3.4-5.0) gm/dl Globulin (2.5-4.0) gm/dl Albumin/Globulin Ratio (0.9-2) TSH (0.300-4.500) uIu/ml Specimen Hemolysis Urine Color Yellow Urine Appearance Clear (Clear) Urine pH 6.5 (4.5-7.5) Ur Specific Superior 1.013 (1.000-1.030) Urine Protein Negative (Negative) Urine Glucose (UA) Negative (Negative) Urine Ketones Negative (Negative) Urine Blood Negative (Negative) Urine Nitrite Negative (Negative) Urine Bilirubin Negative (Negative) Urine Urobilinogen Negative (Negative) Ur Leukocyte Esterase Negative (Negative) COVID-19 Eval Order Covid19 at [facility] SARS-CoV-2 (PCR) NEGATIVE (Negative) Blood Type Antibody Screen Crossmatch 01/03/21 01/03/21 Range/Units 00:49 01:00 WBC (4.8-10.8) K/uL RBC (4.2-5.4) M/uL Hgb (12.0-16.0) g/dL Hct (37-47) % MCV (80-100) fL MCH (25-34) pg MCHC (32-36) g/dL RDW Std Deviation (36.4-46.3) fL RDW Coeff of Talia (11.5-14.5) % Plt Count (130-400) K/uL MPV (7.4-10.4) fL Immature Gran % (Auto) % Neut % (Auto) % Lymph % (Auto) % Gregg % (Auto) % Eos % (Auto) % Baso % (Auto) % Neut # (Auto) (1.4-6.5) K/uL Lymph # (Auto) (1.2-3.4) K/uL Gregg # (Auto) (0.11-0.59) K/uL Eos # (Auto) (0-0.5) K/uL Baso # (Auto) (0-0.2) K/uL Immature Gran # (Auto) (0.00-0.02) K/uL Absolute Nucleated RBC (0-0) K/uL Nucleated RBC % (auto) % Polychromasia Anisocytosis Ovalocytes Sodium (136-145) mmol/L Potassium (3.5-5.1) mmol/L Chloride (98-107) mmol/L Carbon Dioxide (21-32) mmol/L Anion Gap (3-11) BUN (7-18) mg/dl Creatinine (0.6-1.2) mg/dl Est Cr Clr Drug Dosing ml/min Est GFR ( Amer) ml/min Est GFR (Non-Af Amer) ml/min BUN/Creatinine Ratio (10-20) Glucose (70-99) mg/dl Lactate 3.2 H* (0.4-2.0) mmol/L Calcium (8.5-10.1) mg/dl Magnesium (1.8-2.4) mg/dl Total Bilirubin (0.2-1) mg/dl AST (15-37) U/L ALT (12-78) U/L Alkaline Phosphatase (45-117) U/L Total Protein (6.4-8.2) gm/dl Albumin (3.4-5.0) gm/dl Globulin (2.5-4.0) gm/dl Albumin/Globulin Ratio (0.9-2) TSH (0.300-4.500) uIu/ml Specimen Hemolysis Urine Color Urine Appearance (Clear) Urine pH (4.5-7.5) Ur Specific Superior (1.000-1.030) Urine Protein (Negative) Urine Glucose (UA) (Negative) Urine Ketones (Negative) Urine Blood (Negative) Urine Nitrite (Negative) Urine Bilirubin (Negative) Urine Urobilinogen (Negative) Ur Leukocyte Esterase (Negative) COVID-19 Eval Order SARS-CoV-2 (PCR) (Negative) Blood Type A Positive Antibody Screen NEGATIVE Crossmatch See Detail Administered Medications Discontinued Medications Acetaminophen (Acetaminophen 325 Mg Tab) Confirm Administered Dose 650 mg .ROUTE .STK-MED ONE Stop: 01/03/21 02:56 Last Admin: 01/03/21 06:25 Dose: Not Given Documented by: [id number] Acetaminophen (Acetaminophen 325 Mg Tab) 325 mg PO TID PRN PRN Reason: Pain Stop: 02/07/21 09:02 Last Admin: 01/10/21 16:23 Dose: 325 mg Documented by: [id number] Admin: 01/09/21 10:33 Dose: 325 mg Documented by: [id number] Albuterol (Albut/Ipratrop 3mg/0.5mg Neb 3 Ml Vial) 3 ml NEB Q2H PRN PRN Reason: dyspnea Stop: 02/02/21 06:15 Last Admin: 01/08/21 13:33 Dose: 3 ml Documented by: [id number] Allopurinol (Allopurinol 300 Mg Tab) 300 mg PO QAM RODDY Stop: 02/03/21 13:59 Last Admin: 01/10/21 09:13 Dose: 300 mg Documented by: [id number] Admin: 01/09/21 09:36 Dose: 300 mg Documented by: [id number] Admin: 01/08/21 08:17 Dose: 300 mg Documented by: [id number] Admin: 01/07/21 08:04 Dose: 300 mg Documented by: [id number] Admin: 01/06/21 08:42 Dose: 300 mg Documented by: [id number] Admin: 01/05/21 08:18 Dose: 300 mg Documented by: [id number] Admin: 01/04/21 15:32 Dose: 300 mg Documented by: [id number] Apixaban (Apixaban 2.5 Mg Tab) 2.5 mg PO BID RODDY Stop: 02/07/21 20:59 Last Admin: 01/10/21 09:13 Dose: 2.5 mg Documented by: [id number] Admin: 01/09/21 21:59 Dose: 2.5 mg Documented by: [id number] Admin: 01/09/21 09:34 Dose: 2.5 mg Documented by: [id number] Admin: 01/08/21 21:15 Dose: 2.5 mg Documented by: [id number] Bumetanide (Bumetanide 1 Mg Tab) 2 mg PO [id number] RODDY Stop: 02/06/21 16:59 Last Admin: 01/10/21 17:51 Dose: 2 mg Documented by: [id number] Admin: 01/10/21 09:13 Dose: 2 mg Documented by: [id number] Admin: 01/09/21 17:48 Dose: 2 mg Documented by: [id number] Admin: 01/09/21 09:35 Dose: 2 mg Documented by: [id number] Admin: 01/08/21 16:33 Dose: 2 mg Documented by: [id number] Admin: 01/08/21 08:18 Dose: 2 mg Documented by: [id number] Admin: 01/07/21 17:10 Dose: 2 mg Documented by: [id number] Clopidogrel Bisulfate (Clopidogrel Bisulfate 75 Mg Tab) 75 mg PO QAM RODDY Stop: 02/07/21 08:59 Last Admin: 01/10/21 09:13 Dose: 75 mg Documented by: [id number] Admin: 01/09/21 09:32 Dose: 75 mg Documented by: [id number] Admin: 01/08/21 08:18 Dose: 75 mg Documented by: [id number] Diclofenac Sodium (Diclofenac Sod 1% Gel 100 Gm Tube) 4 gm EXT QID RODDY Stop: 02/07/21 08:59 Last Admin: 01/10/21 17:50 Dose: 4 gm Documented by: [id number] Admin: 01/10/21 13:09 Dose: 4 gm Documented by: [id number] Admin: 01/10/21 09:14 Dose: 4 gm Documented by: [id number] Admin: 01/09/21 21:59 Dose: 4 gm Documented by: [id number] Admin: 01/09/21 17:44 Dose: 4 gm Documented by: [id number] Admin: 01/09/21 12:55 Dose: 4 gm Documented by: [id number] Admin: 01/09/21 09:40 Dose: 4 gm Documented by: [id number] Admin: 01/08/21 21:17 Dose: 4 gm Documented by: [id number] Admin: 01/08/21 16:34 Dose: 4 gm Documented by: [id number] Admin: 01/08/21 12:30 Dose: 4 gm Documented by: [id number] Admin: 01/08/21 09:39 Dose: 4 gm Documented by: [id number] Digoxin (Digoxin 0.125 Mg Tab) 0.125 mg PO Q2D@1600 RODDY Stop: 02/03/21 15:59 Last Admin: 01/10/21 16:24 Dose: 0.125 mg Documented by: [id number] Admin: 01/08/21 16:33 Dose: 0.125 mg Documented by: [id number] Admin: 01/06/21 17:07 Dose: 0.125 mg Documented by: [id number] Admin: 01/04/21 15:31 Dose: 0.125 mg Documented by: [id number] Docusate Sodium (Docusate Sodium 100 Mg Cap) 100 mg PO BID RODDY Stop: 02/08/21 11:44 Last Admin: 01/10/21 09:12 Dose: 100 mg Documented by: [id number] Admin: 01/09/21 21:59 Dose: 100 mg Documented by: [id number] Admin: 01/09/21 12:50 Dose: 100 mg Documented by: [id number] Duloxetine HCl (Duloxetine Hcl 60 Mg Cap) 60 mg PO QAM RODDY Stop: 02/03/21 13:59 Last Admin: 01/10/21 09:12 Dose: 60 mg Documented by: [id number] Admin: 01/09/21 09:37 Dose: 60 mg Documented by: [id number] Admin: 01/08/21 08:21 Dose: 60 mg Documented by: [id number] Admin: 01/07/21 08:04 Dose: 60 mg Documented by: [id number] Admin: 01/06/21 08:42 Dose: 60 mg Documented by: [id number] Admin: 01/05/21 08:17 Dose: 60 mg Documented by: [id number] Admin: 01/04/21 15:31 Dose: 60 mg Documented by: [id number] Gabapentin (Gabapentin 800 Mg Tab) 800 mg PO DAILY RODDY Stop: 02/03/21 13:59 Last Admin: 01/10/21 09:12 Dose: 800 mg Documented by: [id number] Admin: 01/09/21 09:37 Dose: 800 mg Documented by: [id number] Admin: 01/08/21 08:17 Dose: 800 mg Documented by: [id number] Admin: 01/07/21 08:04 Dose: 800 mg Documented by: [id number] Admin: 01/06/21 08:42 Dose: 800 mg Documented by: [id number] Admin: 01/05/21 08:18 Dose: 800 mg Documented by: [id number] Admin: 01/04/21 15:32 Dose: 800 mg Documented by: [id number] Hydromorphone HCl (Hydromorphone Inj 0.5 Mg/0.5 Ml Syr) 0.5 mg IV NOW STA Stop: 01/07/21 15:43 Last Admin: 01/07/21 15:52 Dose: 0.5 mg Documented by: [id number] Hydromorphone HCl (Hydromorphone Inj 0.5 Mg/0.5 Ml Syr) 0.5 mg IV NOW STA Stop: 01/07/21 23:00 Last Admin: 01/07/21 23:11 Dose: 0.5 mg Documented by: [id number] Sodium Chloride (Nss 1000ml) 1,000 mls @ 100 mls/hr IV .Q10H RODDY Stop: 01/03/21 09:14 Last Infusion: 01/03/21 09:25 Dose: 0 mls/hr Documented by: [id number] Admin: 01/02/21 23:25 Dose: 100 mls/hr Documented by: [id number] Pantoprazole Sodium (Protonix Bolus/Drip) 0 mls @ 1 mls/hr IV ONE STA Stop: 01/03/21 01:46 Last Admin: 01/03/21 03:28 Dose: Not Given Documented by: [id number] Pantoprazole Sodium 40 mg/ (Dextrose) 100 mls @ 20 mls/hr IV Q5H [facility] Stop: 01/04/21 02:15 Last Admin: 01/03/21 19:12 Dose: Not Given Documented by: [id number] Infusion: 01/03/21 19:08 Dose: 0 mg/hr, 0 mls/hr Documented by: [id number] Admin: 01/03/21 12:58 Dose: 8 mg/hr, 20 mls/hr Documented by: [id number] Infusion: 01/03/21 12:58 Dose: 8 mg/hr, 20 mls/hr Documented by: [id number] Admin: 01/03/21 10:32 Dose: 8 mg/hr, 20 mls/hr Documented by: [id number] Infusion: 01/03/21 08:37 Dose: 0 mg/hr, 0 mls/hr Documented by: [id number] Admin: 01/03/21 04:00 Dose: 8 mg/hr, 20 mls/hr Documented by: [id number] Pantoprazole Sodium 80 mg/ (Dextrose) 120 mls @ 400 mls/hr IV NOW ONE Stop: 01/03/21 02:02 Last Infusion: 01/03/21 14:20 Dose: 0 mls/hr Documented by: [id number] Infusion: 01/03/21 03:27 Dose: 0 mls/hr Documented by: [id number] Admin: 01/03/21 03:12 Dose: 400 mls/hr Documented by: [id number] Magnesium Sulfate/Dextrose (Magnesium Sulfate / D5w) 1 gm in 100 mls @ 200 mls/hr IV Q30M RODDY Stop: 01/03/21 04:11 Last Infusion: 01/03/21 11:02 Dose: 0 mls/hr Documented by: [id number] Admin: 01/03/21 10:32 Dose: 200 mls/hr Documented by: [id number] Infusion: 01/03/21 09:08 Dose: 200 mls/hr Documented by: [id number] Admin: 01/03/21 08:38 Dose: 200 mls/hr Documented by: [id number] Sodium Chloride (Nss 1000ml) 1,000 mls @ 80 mls/hr IV [id number] RODDY Stop: 02/02/21 06:25 Last Admin: 01/04/21 22:06 Dose: Not Given Documented by: [id number] Infusion: 01/04/21 05:47 Dose: 0 mls/hr Documented by: [id number] Infusion: 01/03/21 19:08 Dose: 0 mls/hr Documented by: [id number] Admin: 01/03/21 08:39 Dose: 100 mls/hr Documented by: [id number] Potassium Chloride (K Zain / Wtr) 10 meq in 100 mls @ 100 mls/hr IV Q1H RODDY Stop: 01/03/21 08:44 Last Infusion: 01/03/21 11:33 Dose: 0 mls/hr Documented by: [id number] Admin: 01/03/21 10:33 Dose: 100 mls/hr Documented by: [id number] Infusion: 01/03/21 09:39 Dose: 100 mls/hr Documented by: [id number] Admin: 01/03/21 08:39 Dose: 100 mls/hr Documented by: [id number] Iron Sucrose 200 mg/ Sodium (Chloride) 110 mls @ 220 mls/hr IV ONE ONE Stop: 01/05/21 17:29 Last Infusion: 01/05/21 18:01 Dose: 0 mls/hr Documented by: [id number] Admin: 01/05/21 17:31 Dose: 220 mls/hr Documented by: [id number] Ceftriaxone Sodium 1,000 mg/ (Dextrose) 50 mls @ 100 mls/hr IV Q24H RODDY; Protocol Stop: 01/13/21 13:59 Last Infusion: 01/10/21 15:41 Dose: 0 mls/hr Documented by: [id number] Admin: 01/10/21 15:01 Dose: 100 mls/hr Documented by: [id number] Infusion: 01/09/21 15:32 Dose: 0 mls/hr Documented by: [id number] Admin: 01/09/21 14:59 Dose: 100 mls/hr Documented by: [id number] Infusion: 01/08/21 19:14 Dose: 0 mls/hr Documented by: [id number] Admin: 01/08/21 13:02 Dose: 100 mls/hr Documented by: [id number] Infusion: 01/07/21 13:37 Dose: 0 mls/hr Documented by: [id number] Admin: 01/07/21 12:58 Dose: 100 mls/hr Documented by: [id number] Infusion: 01/06/21 16:04 Dose: 0 mls/hr Documented by: [id number] Admin: 01/06/21 15:34 Dose: 100 mls/hr Documented by: [id number] Daptomycin 200 mg/ Syringe 4 mls @ 2 mls/min IV Q2D@1200 RODDY; Protocol Stop: 01/13/21 14:59 Last Admin: 01/10/21 13:37 Dose: 2 mls/min Documented by: [id number] Admin: 01/08/21 13:55 Dose: 2 mls/min Documented by: [id number] Admin: 01/06/21 17:07 Dose: 2 mls/min Documented by: [id number] Potassium Chloride (K Zain / Wtr) 10 meq in 100 mls @ 100 mls/hr IV Q1H RODDY Stop: 01/09/21 17:29 Last Infusion: 01/09/21 19:43 Dose: 0 mls/hr Documented by: [id number] Admin: 01/09/21 17:43 Dose: 100 mls/hr Documented by: [id number] Infusion: 01/09/21 17:38 Dose: 100 mls/hr Documented by: [id number] Admin: 01/09/21 16:38 Dose: 100 mls/hr Documented by: [id number] Infusion: 01/09/21 16:30 Dose: 100 mls/hr Documented by: [id number] Admin: 01/09/21 15:30 Dose: 100 mls/hr Documented by: [id number] Magnesium Sulfate/Dextrose (Magnesium Sulfate / D5w) 1 gm in 100 mls @ 50 mls/hr IV Q2H RODDY Stop: 01/09/21 18:29 Last Infusion: 01/09/21 19:43 Dose: 0 mls/hr Documented by: [id number] Admin: 01/09/21 17:18 Dose: 50 mls/hr Documented by: [id number] Infusion: 01/09/21 17:18 Dose: 50 mls/hr Documented by: [id number] Admin: 01/09/21 15:28 Dose: 50 mls/hr Documented by: [id number] Potassium Chloride (K Zain / Wtr) 10 meq in 100 mls @ 100 mls/hr IV Q1H RODDY Stop: 01/10/21 10:59 Last Infusion: 01/10/21 13:36 Dose: 0 mls/hr Documented by: [id number] Admin: 01/10/21 12:07 Dose: 100 mls/hr Documented by: [id number] Infusion: 01/10/21 11:56 Dose: 100 mls/hr Documented by: [id number] Admin: 01/10/21 10:56 Dose: 100 mls/hr Documented by: [id number] Infusion: 01/10/21 10:13 Dose: 100 mls/hr Documented by: [id number] Admin: 01/10/21 09:13 Dose: 100 mls/hr Documented by: [id number] Insulin Aspart (Insulin Aspart 100 Units/Ml 3 Ml Pen) 0 units SC ACHS RODDY Stop: 02/02/21 07:29 Last Admin: 01/10/21 17:49 Dose: 7 units Documented by: [id number] Cosigned by: [id number] Admin: 01/10/21 13:08 Dose: 9 units Documented by: [id number] Cosigned by: [id number] Admin: 01/10/21 09:16 Dose: 7 units Documented by: [id number] Cosigned by: [id number] Admin: 01/09/21 21:38 Dose: 3 units Documented by: [id number] Cosigned by: [id number] Admin: 01/09/21 17:46 Dose: 5 units Documented by: [id number] Cosigned by: [id number] Admin: 01/09/21 12:49 Dose: 8 units Documented by: [id number] Cosigned by: [id number] Admin: 01/09/21 09:42 Dose: 2 units Documented by: [id number] Cosigned by: [id number] Admin: 01/08/21 21:21 Dose: 4 units Documented by: [id number] Cosigned by: [id number] Admin: 01/08/21 16:54 Dose: 8 units Documented by: [id number] Cosigned by: [id number] Admin: 01/08/21 12:51 Dose: 8 units Documented by: [id number] Cosigned by: [id number] Admin: 01/08/21 08:24 Dose: 6 units Documented by: [id number] Cosigned by: [id number] Admin: 01/07/21 20:08 Dose: 1 units Documented by: [id number] Cosigned by: [id number] Admin: 01/07/21 17:10 Dose: 3 units Documented by: [id number] Cosigned by: [id number] Admin: 01/07/21 12:57 Dose: 10 units Documented by: [id number] Cosigned by: [id number] Admin: 01/07/21 08:03 Dose: 6 units Documented by: [id number] Cosigned by: [id number] Admin: 01/06/21 20:40 Dose: Not Given Documented by: [id number] Cosigned by: [id number] Admin: 01/06/21 17:08 Dose: 8 units Documented by: [id number] Cosigned by: [id number] Admin: 01/06/21 11:53 Dose: 8 units Documented by: [id number] Cosigned by: [id number] Admin: 01/06/21 08:40 Dose: 6 units Documented by: [id number] Cosigned by: [id number] Admin: 01/05/21 20:20 Dose: 4 units Documented by: [id number] Cosigned by: [id number] Admin: 01/05/21 17:32 Dose: 8 units Documented by: [id number] Cosigned by: [id number] Admin: 01/05/21 12:16 Dose: 9 units Documented by: [id number] Cosigned by: [id number] Admin: 01/05/21 08:20 Dose: 5 units Documented by: [id number] Cosigned by: [id number] Admin: 01/04/21 20:49 Dose: 4 units Documented by: [id number] Cosigned by: [id number] Admin: 01/04/21 17:20 Dose: 8 units Documented by: [id number] Cosigned by: [id number] Admin: 01/04/21 12:23 Dose: 15 units Documented by: [id number] Cosigned by: [id number] Admin: 01/04/21 09:16 Dose: 1 units Documented by: [id number] Cosigned by: [id number] Admin: 01/03/21 21:09 Dose: 3 units Documented by: [id number] Cosigned by: [id number] Admin: 01/03/21 16:56 Dose: 6 units Documented by: [id number] Cosigned by: [id number] Admin: 01/03/21 12:56 Dose: 2 units Documented by: [id number] Cosigned by: [id number] Admin: 01/03/21 10:32 Dose: Not Given Documented by: [id number] Insulin Glargine (Insulin Glargine Solostar 100 Units/Ml 3 Ml Pen) 20 units SC HS RODDY Stop: 02/03/21 15:59 Last Admin: 01/09/21 21:39 Dose: 20 units Documented by: [id number] Cosigned by: [id number] Admin: 01/08/21 21:20 Dose: 20 units Documented by: [id number] Cosigned by: [id number] Admin: 01/07/21 20:07 Dose: 20 units Documented by: [id number] Cosigned by: [id number] Admin: 01/06/21 20:40 Dose: 20 units Documented by: [id number] Cosigned by: [id number] Admin: 01/05/21 20:21 Dose: 20 units Documented by: [id number] Cosigned by: [id number] Admin: 01/04/21 17:19 Dose: 20 units Documented by: [id number] Cosigned by: [id number] Isosorbide Mononitrate (Isosorbide Gregg Extended Rel 30 Mg Tabcr) 30 mg PO QAM RODDY Stop: 02/02/21 18:29 Last Admin: 01/10/21 09:12 Dose: 30 mg Documented by: [id number] Admin: 01/09/21 09:34 Dose: 30 mg Documented by: [id number] Admin: 01/08/21 08:18 Dose: 30 mg Documented by: [id number] Admin: 01/07/21 08:04 Dose: 30 mg Documented by: [id number] Admin: 01/06/21 08:42 Dose: 30 mg Documented by: [id number] Admin: 01/05/21 08:18 Dose: 30 mg Documented by: [id number] Admin: 01/04/21 09:17 Dose: 30 mg Documented by: [id number] Admin: 01/03/21 19:40 Dose: 30 mg Documented by: [id number] Levothyroxine Sodium (Levothyroxine Sodium 50 Mcg Tablet) 50 mcg PO DAILYBB RODDY Stop: 02/03/21 06:29 Last Admin: 01/10/21 06:04 Dose: 50 mcg Documented by: [id number] Admin: 01/09/21 06:23 Dose: 50 mcg Documented by: [id number] Admin: 01/08/21 04:13 Dose: 50 mcg Documented by: [id number] Admin: 01/07/21 08:04 Dose: 50 mcg Documented by: [id number] Admin: 01/06/21 06:10 Dose: 50 mcg Documented by: [id number] Admin: 01/05/21 06:17 Dose: 50 mcg Documented by: [id number] Admin: 01/04/21 05:48 Dose: 50 mcg Documented by: [id number] Lidocaine (Lidocaine 5% 1 Patch) 1 patch TD QAM [facility] Stop: 02/07/21 08:59 Last Admin: 01/10/21 09:14 Dose: 1 patch Documented by: [id number] Admin: 01/09/21 09:38 Dose: 1 patch Documented by: [id number] Admin: 01/08/21 09:39 Dose: 1 patch Documented by: [id number] Lidocaine HCl (Lidocaine 2% 2 Ml Vial/Amp(20mg/Ml)) Confirm Administered Dose 4 ml INFIL .STK-MED ONE Stop: 01/03/21 13:48 Last Admin: 01/03/21 14:19 Dose: Not Given Documented by: [id number] Magnesium Sulfate/Dextrose (Magnesium Sulfate 1gm / D5w Bag) Confirm Administered Dose 2 gm IV .STK-MED ONE Stop: 01/03/21 08:11 Last Admin: 01/03/21 09:25 Dose: Not Given Documented by: [id number] Metoprolol Succinate (Metoprolol Succ 50mg Ext Rel Tab) 150 mg PO BID [facility] Stop: 02/02/21 20:59 Last Admin: 01/10/21 09:12 Dose: 150 mg Documented by: [id number] Admin: 01/09/21 21:58 Dose: 150 mg Documented by: [id number] Admin: 01/09/21 09:33 Dose: 150 mg Documented by: [id number] Admin: 01/08/21 21:15 Dose: 150 mg Documented by: [id number] Admin: 01/08/21 08:16 Dose: 150 mg Documented by: [id number] Admin: 01/07/21 20:06 Dose: 150 mg Documented by: [id number] Admin: 01/07/21 08:04 Dose: 150 mg Documented by: [id number] Admin: 01/06/21 20:42 Dose: 150 mg Documented by: [id number] Admin: 01/06/21 08:42 Dose: 150 mg Documented by: [id number] Admin: 01/05/21 20:21 Dose: 150 mg Documented by: [id number] Admin: 01/05/21 08:17 Dose: 150 mg Documented by: [id number] Admin: 01/04/21 20:51 Dose: 150 mg Documented by: [id number] Admin: 01/04/21 09:17 Dose: 150 mg Documented by: [id number] Admin: 01/03/21 21:08 Dose: 150 mg Documented by: [id number] Mirtazapine (Mirtazapine Tab 15 Mg Tab) 15 mg PO QAM RODDY Stop: 02/03/21 08:59 Last Admin: 01/10/21 09:12 Dose: 15 mg Documented by: [id number] Admin: 01/09/21 09:36 Dose: 15 mg Documented by: [id number] Admin: 01/08/21 08:17 Dose: 15 mg Documented by: [id number] Admin: 01/07/21 08:04 Dose: 15 mg Documented by: [id number] Admin: 01/06/21 08:42 Dose: 15 mg Documented by: [id number] Admin: 01/05/21 08:17 Dose: 15 mg Documented by: [id number] Admin: 01/04/21 09:17 Dose: 15 mg Documented by: [id number] Miscellaneous (Remove Lidoderm Patch) 1 ea N/A DAILY@2100 [facility] Stop: 02/07/21 20:59 Last Admin: 01/09/21 22:00 Dose: 1 ea Documented by: [id number] Admin: 01/08/21 21:21 Dose: 1 ea Documented by: [id number] Morphine Sulfate (Morphine Sulfate 2 Mg/Ml Carp) 2 mg IV Q4H PRN PRN Reason: Pain Stop: 01/17/21 04:53 Last Admin: 01/03/21 04:59 Dose: 2 mg Documented by: [id number] Multivitamins/Minerals (Cerovite Adv Formula Tab) 1 tab PO QAM [facility] Stop: 02/09/21 08:59 Last Admin: 01/10/21 09:12 Dose: 1 tab Documented by: [id number] Ondansetron HCl (Ondansetron Inj 2 Mg/Ml 2 Ml Vial) 4 mg IV NOW STA Stop: 01/02/21 23:14 Last Admin: 01/02/21 23:25 Dose: 4 mg Documented by: [id number] Pantoprazole Sodium (Pantoprazole 40 Mg Tab) 40 mg PO BID RODDY Stop: 02/02/21 20:59 Last Admin: 01/10/21 09:12 Dose: 40 mg Documented by: [id number] Admin: 01/09/21 21:59 Dose: 40 mg Documented by: [id number] Admin: 01/09/21 09:35 Dose: 40 mg Documented by: [id number] Admin: 01/08/21 21:14 Dose: 40 mg Documented by: [id number] Admin: 01/08/21 08:19 Dose: 40 mg Documented by: [id number] Admin: 01/07/21 20:06 Dose: 40 mg Documented by: [id number] Admin: 01/07/21 08:04 Dose: 40 mg Documented by: [id number] Admin: 01/06/21 20:41 Dose: 40 mg Documented by: [id number] Admin: 01/06/21 08:41 Dose: 40 mg Documented by: [id number] Admin: 01/05/21 20:22 Dose: 40 mg Documented by: [id number] Admin: 01/05/21 08:17 Dose: 40 mg Documented by: [id number] Admin: 01/04/21 20:52 Dose: 40 mg Documented by: [id number] Admin: 01/04/21 09:17 Dose: 40 mg Documented by: [id number] Admin: 01/03/21 21:09 Dose: 40 mg Documented by: [id number] Permethrin (Permethrin 5% Cr 60 Gm Tube) 1 appln EXT ONCE ONE Stop: 01/03/21 12:53 Last Admin: 01/03/21 14:51 Dose: 1 appln Documented by: [id number] Polyethylene Glycol (Polyethylene (Miralax) 17 Gm Pack) 17 gm PO DAILY PRN PRN Reason: Constipation Stop: 02/08/21 11:30 Last Admin: 01/09/21 12:53 Dose: 17 gm Documented by: [id number] Polysaccharide Iron Complex (Iron Polysaccharide Complex 150 Mg Capsule) 150 mg PO DAILY [facility] Stop: 02/04/21 08:59 Last Admin: 01/10/21 09:12 Dose: 150 mg Documented by: [id number] Admin: 01/09/21 09:38 Dose: 150 mg Documented by: [id number] Admin: 01/08/21 08:17 Dose: 150 mg Documented by: [id number] Admin: 01/07/21 08:04 Dose: 150 mg Documented by: [id number] Admin: 01/06/21 08:42 Dose: 150 mg Documented by: [id number] Admin: 01/05/21 08:17 Dose: 150 mg Documented by: [id number] Potassium Chloride (Potassium Chloride 10 Meq Tabcr) 10 meq PO BID RODDY Stop: 02/02/21 20:59 Last Admin: 01/10/21 09:19 Dose: 10 meq Documented by: [id number] Admin: 01/09/21 22:06 Dose: 10 meq Documented by: [id number] Admin: 01/09/21 09:36 Dose: 10 meq Documented by: [id number] Admin: 01/08/21 21:15 Dose: 10 meq Documented by: [id number] Admin: 01/08/21 08:18 Dose: 10 meq Documented by: [id number] Admin: 01/07/21 20:06 Dose: 10 meq Documented by: [id number] Admin: 01/07/21 08:04 Dose: 10 meq Documented by: [id number] Admin: 01/06/21 20:42 Dose: 10 meq Documented by: [id number] Admin: 01/06/21 08:41 Dose: 10 meq Documented by: [id number] Admin: 01/05/21 20:21 Dose: 10 meq Documented by: [id number] Admin: 01/05/21 08:17 Dose: 10 meq Documented by: [id number] Admin: 01/04/21 20:52 Dose: 10 meq Documented by: [id number] Admin: 01/04/21 09:16 Dose: 10 meq Documented by: [id number] Admin: 01/03/21 21:09 Dose: 10 meq Documented by: [id number] Propofol (Propofol Iv Emulsion 10 Mg/Ml 20 Ml Vial) Confirm Administered Dose 200 mg IV .STK-MED ONE Stop: 01/03/21 13:48 Last Admin: 01/03/21 14:19 Dose: Not Given Documented by: [id number] Sennosides (Senna 8.6 Mg Tab) 8.6 mg PO QAM [facility] Stop: 02/09/21 08:59 Last Admin: 01/10/21 09:12 Dose: 8.6 mg Documented by: [id number] Tramadol HCl (Tramadol Hcl 50 Mg Tablet) 50 mg PO TID PRN PRN Reason: Pain Stop: 02/07/21 08:56 Last Admin: 01/10/21 16:28 Dose: 50 mg Documented by: [id number] Admin: 01/10/21 02:53 Dose: 50 mg Documented by: [id number] Admin: 01/09/21 10:30 Dose: 50 mg Documented by: [id number] Admin: 01/08/21 16:31 Dose: 50 mg Documented by: [id number] Triamcinolone Acetonide (Triamcinolone Acet 0.1% Oint 15 Gm Tube) 1 appln EXT BID RODDY Stop: 02/03/21 22:29 Last Admin: 01/10/21 09:13 Dose: 1 appln Documented by: [id number] Admin: 01/09/21 22:00 Dose: 1 appln Documented by: [id number] Admin: 01/09/21 09:39 Dose: 1 appln Documented by: [id number] Admin: 01/08/21 21:17 Dose: 1 appln Documented by: [id number] Admin: 01/08/21 08:22 Dose: 1 appln Documented by: [id number] Admin: 01/07/21 20:07 Dose: 1 appln Documented by: [id number] Admin: 01/07/21 08:05 Dose: 1 appln Documented by: [id number] Admin: 01/06/21 20:43 Dose: 1 appln Documented by: [id number] Admin: 01/06/21 08:42 Dose: 1 appln Documented by: [id number] Admin: 01/05/21 20:22 Dose: 1 appln Documented by: [id number] Admin: 01/05/21 08:17 Dose: 1 appln Documented by: [id number] Admin: 01/04/21 22:17 Dose: 1 appln Documented by: [id number] Imaging Data Radiologist's Impression: Chest X-Ray 01/02/21 23:14 XR chest 1V portable HISTORY: 85 years-old Female weakness . Acute weakness COMPARISON: Chest radiograph 12/24/2020, CT abdomen and pelvis 01/03/2021. TECHNIQUE: Portable AP view of the chest FINDINGS: Cardiac silhouette is enlarged. Calcified plaque of the thoracic aorta. No pneumothorax, or overt pulmonary edema. Trace pleural effusions. Mild chronic interstitial coarsening. Degenerative changes of the shoulders and spine. IMPRESSION: Cardiomegaly with trace pleural effusions. ACT 112: Negative or not required by law. The above report was generated using voice recognition software. It may contain grammatical, syntax or spelling errors. Electronically signed by: Cheo Vargas M.D. 01/03/2021 7:04 AM Abdomen/Pelvis CT 01/03/21 04:10 CT SCAN OF THE ABDOMEN AND PELVIS WITHOUT CONTRAST CLINICAL HISTORY: GIB, vomiting COMPARISON STUDY: December 24, 2020 TECHNIQUE: CT scan of the abdomen and pelvis was performed from the lung bases to the proximal femurs. Images are reviewed in the axial, sagittal, and coronal planes. IV contrast was not administered for this examination. A dose lowering technique was utilized adhering to the principles of ALARA. CT DOSE: 396.26 mGy.cm FINDINGS: Lower chest: Interval near resolution of the recently seen right pleural effusion. Nodular pleural thickening and associated compressive atelectasis of adjacent lung parenchyma are seen at the dependent portions of bilateral lower lobes. Mild septal thickening at subpleural aspect of the right middle lobe might represent interstitial fibrosis. Liver: The unenhanced liver is normal in size, contour, and attenuation. There is no intrahepatic biliary ductal dilatation. Gallbladder: Is not well seen, could be surgically absent or significantly contracted. Evaluation is unchanged since multiple prior studies back to December 23, 2018. Spleen: Normal in size and attenuation. Pancreas: Unremarkable. Adrenal glands: Unremarkable. Kidneys: The unenhanced kidneys are normal in size without hydronephrosis. There is no contour deforming renal mass lesion. No renal calculi are identified. Bowel: The small bowel and colon are normal in course and caliber. Appendix shows normal morphology and gas filled. Descending portion of the colon is collapsed. Peritoneum: There is no intraperitoneal free air or abdominal ascites. There is diffuse mesenteric edema is seen which is new since prior study. Interval development of the free fluid collection within cul-de-sac. Presacral fat stranding is seen and associated with mild concentric thickening of rectal wall which might represent developing proctitis. Vasculature: Abdominal aorta is normal in caliber with scattered calcifications of its wall. Adenopathy: Multiple retroperitoneal lymph nodes are seen, measuring less than 1 cm in short axis which is considered nonpathological by CT size criteria. Pelvic viscera: Urinary bladder is partially decompressed which limits evaluation. Mild diffuse thickening of urinary bladder wall is seen and could represent cystitis in appropriate clinical settings. Uterus is surgically absent. Skeletal structures: Osteopenia and multilevel degenerative changes of the spine. Findings are not significantly changed since recent prior. An electronic device is again seen within posterior right pelvic wall with wire extending to the pelvic region. IMPRESSION: 1. Interval development of diffuse mesenteric edema and small amount of fluid collection within cul-de-sac which could be sign of ongoing inflammatory intra- abdominal process. 2. Minimal thickening of the rectal wall and presacral edema could be seen in proctitis. 3. Partially decompressed urinary bladder with slightly thickened wall. Above- mentioned findings likely represent cystitis. Please correlate above-mentioned findings with results of urinalysis. 4. Nondilated loops of bowel. Normal appendix. Suboptimal exam due to lack of IV contrast. 5. The rest of findings as above. ACT 112: Negative or not required by law. The above report was generated using voice recognition software. It may contain grammatical, syntax or spelling errors. Electronically signed by: Shweta Villanueva DO 01/03/2021 10:11 AM Discharge Plan Visit Data Chief Complaint: Illness ED Provider: Charlette Wiseman Discharge Problem: GIB (gastrointestinal bleeding), Anemia Patient Disposition: Admitted As Inpatient Discharge Instructions Interventions: ED Discharge Assessment Last Done: 01/03/21 06:20 Discharge Problem: GIB (gastrointestinal bleeding) Qualifiers: GI bleed type/associated pathology: unspecified gastrointestinal hemorrhage type Qualified Code(s): K92.2 - Gastrointestinal hemorrhage, unspecified Anemia Qualifiers: Anemia type: iron deficiency Iron deficiency anemia type: chronic blood loss Qualified Code(s): D50.0 - Iron deficiency anemia secondary to blood loss (chronic)
--- NOTE | 2021-01-03 07:05 | XRay Report ---
XR chest 1V portable HISTORY: 85 years-old Female weakness . Acute weakness COMPARISON: Chest radiograph 12/24/2020, CT abdomen and pelvis 01/03/2021. TECHNIQUE: Portable AP view of the chest FINDINGS: Cardiac silhouette is enlarged. Calcified plaque of the thoracic aorta. No pneumothorax, or overt pul monary edema. Trace pleural effusions. Mild chronic interstitial coarsening. Degenerative changes of the shoulders and spine. IMPRESSION: Cardiomegaly with trace pleural effusions. ACT 112: Negative or not required by law. The above report was generated using voice recognition software. It may contain grammatical, syntax o r spelling errors. Electronically signed by: Cheo Vargas M.D. 01/03/2021 7:04 AM
[2021-01-03] MEDS ORDERED: MAGNESIUM SULFATE 1GM / D5W BAG IV ONE (08:10)
[2021-01-03 08:20] LABS: Hematocrit (blood only) 32.5 % (37-47); Hemoglobin 10.2 g/dL (12.0-16.0)
[2021-01-03] MEDS: MAGNESIUM SULFATE / D5W 1 GM/100 ML BAG IV SCH ×2 (08:38→10:32)
[2021-01-03] MEDS: SODIUM CHLORIDE 0.9% 1000ML 1,000 ML IV SCH (08:39)
[2021-01-03] MEDS: POTASSIUM CHLORIDE / WTR 10 MEQ/100 ML PLCT IV SCH ×2 (08:39→10:33)
--- NOTE | 2021-01-03 09:57 | Gastrointestinal Consultation ---
Date of Consultation January 03, 2021 Assessment & Plan (1) Nausea & vomiting: (2) Anemia due to blood loss, acute: DDX: Norma-Iraheta tear vs PUD vs AVM vs other. 1. NPO for now. 2. Push enteroscopy by Dr. Mckeon today for further evaluation. 3. Agree with holding Eliquis and Plavix. 4. Continue Pantoprazole IV at 8 mg/hr. 5. Further recommendations will be made pending results of testing. Thank you for allowing us to participate in the care of this pleasant patient. If you have questions or concerns, please do not hesitate to contact us. Supervising Physician Co-Signing Physician Notes I personally evaluated the patient and agree with the findings as documented by STEVEN Hill Exam: abd: soft, nt, nd History of Present Illness Reason for Consultation: N/V, GIB Requesting Physician: Dr. Hankins Attending Physician: Surjit Villafuerte MD History of Present Illness Patient is a very pleasant 85 y.o. female with a history of NM, CKD and GIB which she states she was previously hospitalized for acute blood loss anemia in August of this year. At that time, Dr. Mckeon had performed both upper and lower endoscopy for further evaluation with no source of bleeding identified. Due to macrocytic indices, recommended hematology evaluation and she was evaluated by Dr. Zavaleta at that time. Patient was resumed on her oral anticoagulant and antiplatelet therapy. She was transported to the ER via EMS last evening after a reported 5 day history of n/v. She was heme positive and found to have a profoundly low hemoglobin of 6.5. She was transfused with 2 units of PRBCs and hemoglobin this morning was noted to be 10.2. Patient is a limited historian as she is lethargic this am after receiving IV Morphine for abdominal pain. Per nursing, no episodes of vomiting or hematemesis since arrival. No gross melena or rectal bleeding. She is NPO and has been initiated on a PPI ggt. Allergies Allergy/AdvReac Type Severity Reaction Status Date / Time shellfish derived Allergy Severe ANAPHYLAXIS Verified 01/03/21 00:39 iodine Allergy Intermediate ANAPHYLAXIS Verified 01/03/21 00:39 lisinopril Allergy Unknown Unknown Verified 01/03/21 00:39 oxybutynin [From Ditropan] Allergy Unknown Unknown Verified 01/03/21 00:39 sertraline [From Zoloft] Allergy Unknown Unknown Verified 01/03/21 00:39 paroxetine AdvReac Mild GI UPSET Verified 01/03/21 00:39 Home Medications Medication Instructions Recorded Confirmed Type albuterol sulfate 90 mcg/actuation 1 - 2 puffs INH Q4H PRN #6.7 gm 04/26/19 01/03/21 Rx aerosol inhaler (ProAir HFA) isosorbide mononitrate 30 mg 30 mg PO QAM #90 tab 04/30/20 01/03/21 Rx tablet,extended release 24 hr acetaminophen 650 mg 1,300 mg PO HS tab 05/11/20 01/03/21 History tablet,extended release (Tylenol Arthritis Pain) cholecalciferol (vitamin D3) 25 2,000 unit PO QAM tab 05/11/20 01/03/21 History mcg (1,000 unit) tablet (Vitamin D3) apixaban 2.5 mg tablet (Eliquis) 2.5 mg PO BID #180 tab 08/06/20 01/03/21 Rx magnesium oxide 400 mg PO BID #90 tab 10/02/20 01/03/21 Rx allopurinol 100 mg tablet 300 mg PO QAM 11/07/20 01/03/21 History (Zyloprim) clopidogrel 75 mg tablet (Plavix) 75 mg PO QAM 11/07/20 01/03/21 History duloxetine 60 mg capsule,delayed 60 mg PO QAM 11/07/20 01/03/21 History release (Cymbalta) fluticasone propionate 50 1 spray INTRANASAL BID PRN 11/07/20 01/03/21 History mcg/actuation nasal spray,suspension (Flonase Allergy Relief) mirtazapine 15 mg tablet (Remeron) 15 mg PO QAM 11/07/20 01/03/21 History potassium chloride 20 mEq 10 meq PO BID 11/07/20 01/03/21 History tablet,extended release (K-Tab) bumetanide 2 mg tablet 2 mg PO BID #60 tab 12/03/20 01/03/21 Rx capsaicin 0.033 % topical cream 1 applic EXT TID PRN #56.6 g 12/07/20 01/03/21 Rx (Zostrix) digoxin 125 mcg (0.125 mg) tablet 125 mcg PO Q2D@1600 #15 tab 12/07/20 01/03/21 Rx (Digitek) metoprolol succinate 50 mg 150 mg PO BID tab 12/14/20 01/03/21 History tablet,extended release 24 hr (Toprol XL) insulin aspart U-100 100 unit/mL 7 - 10 unit SUBCUT TIDM #45 ml 12/17/20 01/03/21 Rx (3 mL) subcutaneous pen (Novolog Flexpen U-100 Insulin aspart) insulin glargine 100 unit/mL (3 20 unit SUBCUT HS #15 ml 12/17/20 01/03/21 Rx mL) subcutaneous pen (Lantus Solostar U-100 Insulin) levothyroxine 50 mcg tablet 50 mcg PO DAILYBB #30 tab 12/19/20 01/03/21 Rx (Synthroid) pantoprazole 40 mg tablet,delayed 40 mg PO QAM #90 tab 12/19/20 01/03/21 Rx release (Protonix) gabapentin 800 mg tablet 800 mg PO DAILY 12/24/20 01/03/21 History mupirocin 2 % topical ointment 1 applic TOPICAL BID #30 g 12/26/20 01/03/21 Rx Patient History Medical History Anemia Chronic macrocytic Asthma Atrial fibrillation CAD (coronary artery disease) Cerebrovascular disease Chronic diastolic congestive heart failure Chronic kidney disease (CKD) Stage III, baseline Cr 1.3-1.5mg/dL. Complicated with normocytic anemia and secondary hyperparathyroidism. Followed by nephrology. 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 Cannot perform MRI due to bladder implant. Followed by pain management. Epidural steroid injections with improvement of pain. Evaluated by ortho, decided against surgery. Managed with gabapentin 300mg TID + APAP PRN + tapentadol 50mg BID PRN GERD (gastroesophageal reflux disease) History of gout Managed with allopruinol daily. No recent gouty attacks. Uric acid suppressed 3.4 mg/dl (12/22) Hyperlipidemia Secondary prevention with moderate intensity statin (atorvastatin 20mg daily) Hypertension Hypothyroidism Lichen planus Macular degeneration Mitral regurgitation Neurologic gait dysfunction Obstructive sleep apnea Long standing. Managed with CPAP nightly. CPAP titration polysomnography (4/10). Sensorineural hearing loss (SNHL) of both ears Venous insufficiency of both lower extremities Surgical History H/O colonoscopy History of repair of rectocele S/P breast biopsy S/P section S/P cholecystectomy S/P hysterectomy S/P implantation of urinary electronic stimulator device Family History Father , Age 64 No problems noted. Mother , Age 61 No problems noted. Other Coronary heart disease Denies family history of Ovarian cancer Prostate cancer Crohn's disease Breast cancer Lung cancer Colorectal cancer Social History Smoking Status: Never smoker Second Hand Exposure: No; Hx Alcohol Use: No Hx Substance Use: No Preferred Language: Yoruba Communication Ability: Effective Visual Impairment: No Limitations Hearing Ability: Normal Can Runner Required: No Beliefs That Will Affect Care: None marital status: Life Partner Current Living Situation: Significant Other Current Living Situation Comment: lives with Calderon Cordoba life partner current occupational status: retired Feels Safe at Home: Yes Childhood Exposure to Second-Hand Smoke: No Dental Care, Regularly: Yes Physical Activity Frequency: 1-2 Times per Week Physical Activity Frequency Comment: physical therapy Seatbelt Use: always Sunscreen Use: Yes Assistive Devices: Glasses Review of Systems Constitutional: + fatigue; no fever and no chills Respiratory: no dyspnea Cardiovascular: no chest pain Gastrointestinal: as per Subjective / HPI Physical Exam Constitutional: WD/WN, vitals as above Eyes: + anicteric sclerae Respiratory: normal respiratory effort, lungs clear to auscultation Cardiovascular: Rate/Rhythm: + irregularly irregular Heart Sounds: no murmur Gastrointestinal (Abdomen): Inspection/Auscultation: normal bowel sounds Percussion/Palpation: abdomen soft; abdomen nontender Skin: + pallor Psychiatric: Drowsy. Oriented to person, place, time and event. Results & Data ([facility]) Vital Signs (Past 12 Hours) Vital Signs Temp Pulse Pulse Resp BP BP Pulse Ox 01/03/21 07:02 37.1 C 95 H 16 154/78 H 98 01/03/21 06:11 37.1 C 95 H 16 163/77 H 01/03/21 05:41 37.1 C 93 H 16 143/81 H 95 01/03/21 05:11 37.0 C 105 H 16 164/135 H 98 01/03/21 04:55 37.0 C 91 H 18 143/85 H 100 01/03/21 04:36 36.9 C 88 16 145/73 H 98 01/03/21 04:17 37 C 91 H 14 146/70 H 93 01/03/21 03:55 37 C 102 H 16 152/74 H 97 01/03/21 03:25 36.8 C 100 H 17 109/52 L 95 01/03/21 01:54 36.7 C 85 23 150/81 H 96 01/03/21 01:00 94 H 137/73 94 01/03/21 00:48 78 16 154/70 H 96 01/02/21 23:37 95 01/02/21 23:02 37.1 C 88 14 169/97 H 96 Laboratory Results Abnormal lab results 01/02/21 01/02/21 01/02/21 Range/Units 23:18 23:18 23:18 WBC 14.36 H (4.8-10.8) K/uL RBC 1.87 L (4.2-5.4) M/uL Hgb 6.5 L* (12.0-16.0) g/dL Hct 21.4 L (37-47) % MCV 114.4 H (80-100) fL MCH 34.8 H (25-34) pg MCHC 30.4 L (32-36) g/dL RDW Std Deviation 98.3 H (36.4-46.3) fL RDW Coeff of Talia 26.0 H (11.5-14.5) % MPV 13.1 H (7.4-10.4) fL Neut # (Auto) 13.05 H (1.4-6.5) K/uL Lymph # (Auto) 0.23 L (1.2-3.4) K/uL [place] # (Auto) 0.85 H (0.11-0.59) K/uL Immature Gran # (Auto) 0.18 H (0.00-0.02) K/uL Absolute Nucleated RBC 0.17 H (0-0) K/uL Potassium 3.1 L (3.5-5.1) mmol/L BUN 44 H (7-18) mg/dl Creatinine 1.52 H (0.6-1.2) mg/dl BUN/Creatinine Ratio 28.8 H (10-20) Glucose 165 H (70-99) mg/dl POC Glucose (70-99) mg/dl Lactate 2.6 H* (0.4-2.0) mmol/L Calcium 7.3 L (8.5-10.1) mg/dl Magnesium 1.5 L (1.8-2.4) mg/dl Total Bilirubin 3.0 H (0.2-1) mg/dl AST 39 H (15-37) U/L Alkaline Phosphatase 195 H (45-117) U/L Total Protein 5.6 L (6.4-8.2) gm/dl Albumin 2.4 L (3.4-5.0) gm/dl Albumin/Globulin Ratio 0.8 L (0.9-2) Crossmatch 01/03/21 01/03/21 01/03/21 Range/Units 00:49 01:00 07:55 WBC (4.8-10.8) K/uL RBC (4.2-5.4) M/uL Hgb 10.2 L D (12.0-16.0) g/dL Hct 32.5 L (37-47) % MCV (80-100) fL MCH (25-34) pg MCHC (32-36) g/dL RDW Std Deviation (36.4-46.3) fL RDW Coeff of Talia (11.5-14.5) % MPV (7.4-10.4) fL Neut # (Auto) (1.4-6.5) K/uL Lymph # (Auto) (1.2-3.4) K/uL Searcy # (Auto) (0.11-0.59) K/uL Immature Gran # (Auto) (0.00-0.02) K/uL Absolute Nucleated RBC (0-0) K/uL Potassium (3.5-5.1) mmol/L BUN (7-18) mg/dl Creatinine (0.6-1.2) mg/dl BUN/Creatinine Ratio (10-20) Glucose (70-99) mg/dl POC Glucose (70-99) mg/dl Lactate 3.2 H* (0.4-2.0) mmol/L Calcium (8.5-10.1) mg/dl Magnesium (1.8-2.4) mg/dl Total Bilirubin (0.2-1) mg/dl AST (15-37) U/L Alkaline Phosphatase (45-117) U/L Total Protein (6.4-8.2) gm/dl Albumin (3.4-5.0) gm/dl Albumin/Globulin Ratio (0.9-2) Crossmatch See Detail 01/03/21 Range/Units 09:47 WBC (4.8-10.8) K/uL RBC (4.2-5.4) M/uL Hgb (12.0-16.0) g/dL Hct (37-47) % MCV (80-100) fL MCH (25-34) pg MCHC (32-36) g/dL RDW Std Deviation (36.4-46.3) fL RDW Coeff of Talia (11.5-14.5) % MPV (7.4-10.4) fL Neut # (Auto) (1.4-6.5) K/uL Lymph # (Auto) (1.2-3.4) K/uL [place] # (Auto) (0.11-0.59) K/uL Immature Gran # (Auto) (0.00-0.02) K/uL Absolute Nucleated RBC (0-0) K/uL Potassium (3.5-5.1) mmol/L BUN (7-18) mg/dl Creatinine (0.6-1.2) mg/dl BUN/Creatinine Ratio (10-20) Glucose (70-99) mg/dl POC Glucose 188 H (70-99) mg/dl Lactate (0.4-2.0) mmol/L Calcium (8.5-10.1) mg/dl Magnesium (1.8-2.4) mg/dl Total Bilirubin (0.2-1) mg/dl AST (15-37) U/L Alkaline Phosphatase (45-117) U/L Total Protein (6.4-8.2) gm/dl Albumin (3.4-5.0) gm/dl Albumin/Globulin Ratio (0.9-2) Crossmatch PG Care Time/CCT Total # of Minutes Spent Total Time Spent with Patient: Total time spent is greater than 50% in coordination of care (as documented) at patient's floor/unit and/or counseling patient: Coding Level of Care Code 25235 Initial Inpt Care Lvl 3 Diagnoses Nausea & vomiting R11.2 Vomiting Intractability: non-intractable Vomiting type: unspecified Anemia due to blood loss, acute D62 (1) Nausea & vomiting Vomiting Intractability: non-intractable Vomiting type: unspecified Qualifi ed Code(s): R11.2 - Nausea with vomiting, unspecified
--- NOTE | 2021-01-03 10:12 | CT Scan Report ---
CT SCAN OF THE ABDOMEN AND PELVIS WITHOUT CONTRAST CLINICAL HISTORY: GIB, vomiting COMPARISON STUDY: December 24, 2020 TECHNIQUE: CT scan of the abdomen and pelvis was performed from the lung bases to the proximal femurs . Images are reviewed in the axial, sagittal, and coronal planes. IV contrast was not administered fo r this examination. A dose lowering technique was utilized adhering to the principles of ALARA. CT DOSE: 396.26 mGy.cm FINDINGS: Lower chest: Interval near resolution of the recently seen right pleural effusion. Nodular pleural th ickening and associated compressive atelectasis of adjacent lung parenchyma are seen at the dependent portions of bilateral lower lobes. Mild septal thickening at subpleural aspect of the right middle l obe might represent interstitial fibrosis. Liver: The unenhanced liver is normal in size, contour, and attenuation. There is no intrahepatic diana iary ductal dilatation. Gallbladder: Is not well seen, could be surgically absent or significantly contracted. Evaluation is unchanged since multiple prior studies back to December 23, 2018. Spleen: Normal in size and attenuation. Pancreas: Unremarkable. Adrenal glands: Unremarkable. Kidneys: The unenhanced kidneys are normal in size without hydronephrosis. There is no contour deform ing renal mass lesion. No renal calculi are identified. Bowel: The small bowel and colon are normal in course and caliber. Appendix shows normal morphology a nd gas filled. Descending portion of the colon is collapsed. Peritoneum: There is no intraperitoneal free air or abdominal ascites. There is diffuse mesenteric ed cheryl is seen which is new since prior study. Interval development of the free fluid collection within cul-de-sac. Presacral fat stranding is seen and associated with mild concentric thickening of rectal wall which might represent developing proctitis. Vasculature: Abdominal aorta is normal in caliber with scattered calcifications of its wall. Adenopathy: Multiple retroperitoneal lymph nodes are seen, measuring less than 1 cm in short axis whi ch is considered nonpathological by CT size criteria. Pelvic viscera: Urinary bladder is partially decompressed which limits evaluation. Mild diffuse thick ening of urinary bladder wall is seen and could represent cystitis in appropriate clinical settings. Uterus is surgically absent. Skeletal structures: Osteopenia and multilevel degenerative changes of the spine. Findings are not si gnificantly changed since recent prior. An electronic device is again seen within posterior right pel jyoti wall with wire extending to the pelvic region. IMPRESSION: 1. Interval development of diffuse mesenteric edema and small amount of fluid collection within cul- de-sac which could be sign of ongoing inflammatory intra-abdominal process. 2. Minimal thickening of the rectal wall and presacral edema could be seen in proctitis. 3. Partially decompressed urinary bladder with slightly thickened wall. Above-mentioned findings lik sylvester represent cystitis. Please correlate above-mentioned findings with results of urinalysis. 4. Nondilated loops of bowel. Normal appendix. Suboptimal exam due to lack of IV contrast. 5. The rest of findings as above. ACT 112: Negative or not required by law. The above report was generated using voice recognition software. It may contain grammatical, syntax o r spelling errors. Electronically signed by: Shweta Villanueva DO 01/03/2021 10:11 AM
[2021-01-03] MEDS: INSULIN ASPART 100 UNITS/ML 3 ML PEN SC SCH ×4 (10:32→21:09)
--- NOTE | 2021-01-03 10:55 | Anesthesiology Consultation ---
Date of Service January 03, 2021 Assessment & Plan (1) Encounter for pre-operative examination: Chart Review Chart Review: Acceptable Risk for Surgery and Patient NOT seen in Pre Admission Testing Consults Requested none History Surgery Operation Date: 01/03/21 16:30 Proposed Procedures p Esophagogastroduodenoscopy Dr. Linda Mckeon MD Height/Weight Height: 5 ft Weight: 75.1 kg Allergies Allergy/AdvReac Type Severity Reaction Status Date / Time shellfish derived Allergy Severe ANAPHYLAXIS Verified 01/03/21 00:39 iodine Allergy Intermediate ANAPHYLAXIS Verified 01/03/21 00:39 lisinopril Allergy Unknown Unknown Verified 01/03/21 00:39 oxybutynin [From Ditropan] Allergy Unknown Unknown Verified 01/03/21 00:39 sertraline [From Zoloft] Allergy Unknown Unknown Verified 01/03/21 00:39 paroxetine AdvReac Mild GI UPSET Verified 01/03/21 00:39 Medications Home Medications Medication Instructions Recorded Confirmed Last Taken albuterol sulfate 90 mcg/actuation 1 - 2 puffs INH Q4H PRN #6.7 gm 04/26/19 01/03/21 10/03/20 aerosol inhaler (ProAir HFA) isosorbide mononitrate 30 mg 30 mg PO QAM #90 tab 04/30/20 01/03/21 12/04/20 tablet,extended release 24 hr acetaminophen 650 mg 1,300 mg PO HS tab 05/11/20 01/03/21 12/03/20 tablet,extended release (Tylenol Arthritis Pain) cholecalciferol (vitamin D3) 25 2,000 unit PO QAM tab 05/11/20 01/03/21 12/04/20 mcg (1,000 unit) tablet (Vitamin D3) apixaban 2.5 mg tablet (Eliquis) 2.5 mg PO BID #180 tab 08/06/20 01/03/21 12/04/20 08:00 magnesium oxide 400 mg PO BID #90 tab 10/02/20 01/03/21 12/04/20 08:00 allopurinol 100 mg tablet 300 mg PO QAM 11/07/20 01/03/21 12/04/20 (Zyloprim) clopidogrel 75 mg tablet (Plavix) 75 mg PO QAM 11/07/20 01/03/21 12/04/20 duloxetine 60 mg capsule,delayed 60 mg PO QAM 11/07/20 01/03/21 12/04/20 release (Cymbalta) fluticasone propionate 50 1 spray INTRANASAL BID PRN 11/07/20 01/03/21 Unknown mcg/actuation nasal spray,suspension (Flonase Allergy Relief) mirtazapine 15 mg tablet (Remeron) 15 mg PO QAM 11/07/20 01/03/21 12/04/20 potassium chloride 20 mEq 10 meq PO BID 11/07/20 01/03/21 12/04/20 08:00 tablet,extended release (K-Tab) bumetanide 2 mg tablet 2 mg PO BID #60 tab 12/03/20 01/03/21 12/04/20 08:00 capsaicin 0.033 % topical cream 1 applic EXT TID PRN #56.6 g 12/07/20 01/03/21 Unknown (Zostrix) digoxin 125 mcg (0.125 mg) tablet 125 mcg PO Q2D@1600 #15 tab 12/07/20 01/03/21 Unknown (Digitek) metoprolol succinate 50 mg 150 mg PO BID tab 12/14/20 01/03/21 Unknown tablet,extended release 24 hr (Toprol XL) insulin aspart U-100 100 unit/mL 7 - 10 unit SUBCUT TIDM #45 ml 12/17/20 01/03/21 Unknown (3 mL) subcutaneous pen (Novolog Flexpen U-100 Insulin aspart) insulin glargine 100 unit/mL (3 20 unit SUBCUT HS #15 ml 12/17/20 01/03/21 Unknown mL) subcutaneous pen (Lantus Solostar U-100 Insulin) levothyroxine 50 mcg tablet 50 mcg PO DAILYBB #30 tab 12/19/20 01/03/21 Unknown (Synthroid) pantoprazole 40 mg tablet,delayed 40 mg PO QAM #90 tab 12/19/20 01/03/21 Unknown release (Protonix) gabapentin 800 mg tablet 800 mg PO DAILY 12/24/20 01/03/21 Unknown mupirocin 2 % topical ointment 1 applic TOPICAL BID #30 g 12/26/20 01/03/21 Unknown Active Medications Generic Name Dose Route Start Last Admin Trade Name Freq PRN Reason Stop Dose Admin Pantoprazole Sodium 40 mg/ 100 mls @ 20 mls/hr 01/03/21 02:15 01/03/21 10:32 Dextrose IV 02/02/21 02:14 8 mg/hr Q5H RODDY 20 mls/hr Administration 8 MG/HR Sodium Chloride 1,000 mls @ 80 mls/hr 01/03/21 06:26 01/03/21 08:39 Nss 1000ml IV 02/02/21 06:25 100 mls/hr .[id number] RODDY Administration Insulin Aspart 0 units 01/03/21 07:30 01/03/21 10:32 Insulin Aspart 100 Units/Ml 3 Ml Pen SC 02/02/21 07:29 Not Given ACHS RODDY Morphine Sulfate 2 mg 01/03/21 04:54 01/03/21 04:59 Morphine Sulfate 2 Mg/Ml Carp IV 01/17/21 04:53 2 mg Q4H PRN Administration Pain Past Medical History Medical History Anemia Chronic macrocytic Asthma Atrial fibrillation CAD (coronary artery disease) Cerebrovascular disease Chronic diastolic congestive heart failure Chronic kidney disease (CKD) Stage III, baseline Cr 1.3-1.5mg/dL. Complicated with normocytic anemia and secondary hyperparathyroidism. Followed by nephrology. 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 Cannot perform MRI due to bladder implant. Followed by pain management. Epidural steroid injections with improvement of pain. Evaluated by ortho, decided against surgery. Managed with gabapentin 300mg TID + APAP PRN + tapentadol 50mg BID PRN GERD (gastroesophageal reflux disease) History of gout Managed with allopruinol daily. No recent gouty attacks. Uric acid suppressed 3.4 mg/dl (12/22) Hyperlipidemia Secondary prevention with moderate intensity statin (atorvastatin 20mg daily) Hypertension Hypothyroidism Lichen planus Macular degeneration Mitral regurgitation Neurologic gait dysfunction Obstructive sleep apnea Long standing. Managed with CPAP nightly. CPAP titration polysomnography (07/14). Sensorineural hearing loss (SNHL) of both ears Venous insufficiency of both lower extremities Past Family History Family History Father , Age 64 No problems noted. Mother , Age 61 No problems noted. Other Coronary heart disease Denies family history of Ovarian cancer Prostate cancer Crohn's disease Breast cancer Lung cancer Colorectal cancer Past Surgical History Surgical History H/O colonoscopy History of repair of rectocele S/P breast biopsy S/P section S/P cholecystectomy S/P hysterectomy S/P implantation of urinary electronic stimulator device Social History Smoking Status: Never smoker Hx Alcohol Use: No Alcohol type: beer alcohol intake frequency: holidays/special occasions only Hx Substance Use: No substance use type: does not use Physical Exam Vital Signs Last Vital Signs Temp 98.8 F 01/03/21 07:02 Pulse 95 H 01/03/21 07:02 Resp 16 01/03/21 07:02 BP 154/78 H 01/03/21 07:02 Pulse Ox 98 01/03/21 07:02 Testing Laboratory Results 01/03/21 07:55 01/02/21 23:18 Urine Color Yellow 01/03/21 00:19 Urine Appearance Clear (Clear) 01/03/21 00:19 Urine pH 6.5 (4.5-7.5) 01/03/21 00:19 Ur Specific [place] 1.013 (1.000-1.030) 01/03/21 00:19 Urine Protein Negative (Negative) 01/03/21 00:19 Urine Glucose (UA) Negative (Negative) 01/03/21 00:19 Urine Ketones Negative (Negative) 01/03/21 00:19 Urine Nitrite Negative (Negative) 01/03/21 00:19 Ur Leukocyte Esterase Negative (Negative) 01/03/21 00:19 Blood Type A Positive 01/03/21 00:49 Antibody Screen NEGATIVE 01/03/21 00:49 01/03/21 09:47 POC Glucose 188 H Electrocardiogram Date: 01/02/21 Findings: + AFIB @ (90) Chest X-Ray Date: 01/02/21 Findings: + NAD Echocardiogram Date: 08/15/20 EF: 60-65 LV Function: normal Valvular Disease: + AI, + MR and + pertinent finding (pulm HTN)
--- NOTE | 2021-01-03 11:21 | Hospitalist Progress Note ---
Date of Service January 03, 2021 Assessment & Plan (1) Anemia due to blood loss, acute: Plan: Patient with nausea, vomiting, hematemesis prior to admission Hemoglobin baseline 11.52/21 and approximately 8 through 11/24 acutely decreased to 6.5 on admission Received 2 units packed red blood cells in ER, hemoglobin rise to 10.2 N.p.o. Continue Protonix drip Hold clopidogrel and apixaban H&H every 6 hours GI consulted, anticipate EGD NSS 80 cc/h Home meds held while n.p.o., anticipate resume except for the coagulants/antiplatelets following procedure (2) Hematemesis: Plan: See above (3) Nausea & vomiting: Plan: Zofran 4 mg IV every 6 hours as needed (4) Diabetes mellitus, type II: Plan: Glucose checks AC/at bedtime or every 6 hours while n.p.o. 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 (10) Diabetic peripheral neuropathy: Plan: Diabetic peripheral neuropathy/RLS type symptoms hold gabapentin while n.p.o. Morphine 2 mg IV every 4 hours as needed (11) Depression with anxiety: Plan: Hold oral medications Lorazepam 0.5 mg IV every 6 hours as needed (12) Hypertension: Plan: See above (13) Obstructive sleep apnea: Plan: CPAP at bedtime (14) Eschar of lower leg: Plan: Patient previously known to wound care, clustered eschars of right lower legs. Dressings currently in place, wound care consulted (15) Rash of back: Plan: Clustered scabbed itchy red lesions of right mid back Patient with history of scabies Pending scabies prep, Contact precautions (16) Scabies: Plan: - Numerous small, dry, excoriated papules with intermittent crust and red linear streaks at left upper back. No excoriations or lesions in the webspaces of the fingers. Scattered papular excoriated papules of the right - Treated a couple of months ago for scabies. Feels like it improved somewhat, but has been itchy and worse in the last 2 weeks. Lives at home with family, no one else with a rash at home. - No mites seen on scraping, but high clinical suspicion given appearance and hx - Pt reports good help at home, and has laundered sheets extensively after recent episode. Will discuss with case mngmt. - Tx with permethrin topical 5% - Admission and Anticipated Discharge Date Admission Date: January 03, 2021 Subjective Tiffanie arouses easily to voice. She reports she feels tired, but is without chest pain, lightheadedness, dizziness at time of visit. Denies abdominal pain. Denies recent bowel movement. She endorses some chronic pain in her legs and wounds for which she has seen wound care. She endorses an intensely itchy rash on her back, notes that she was treated a couple of months ago for scabies. Feels like it improved somewhat, but has been itchy and worse in the last 2 weeks. Lives at home with family, no one else with a rash at home. Review of Systems Review of Systems: Constitutional: Denies fever, chills, malaise Eyes: Denies vision change ENT: Denies ear pain, sore throat, sinus pain Cardiovascular: Denies Chest pain, chest pressure, palpitations, extremity swelling Respiratory: Denies shortness of breath, cough, sputum production, difficulty breathing Gastrointestinal: Denies abdominal pain, nausea, vomiting Genitourinary: Denies dysuria, urinary frequency Musculoskeletal: Endorses global fatigue, intermittent bilateral lower extremity pain minimal at time of assessment. Integumentary: Endorses itchy rash of back x2 weeks, bilateral lower extremity wounds as noted in subjective, otherwise denies skin changes Neurological: Denies headache, numbness, tingling, focal weakness Physical Exam Physical Exam: General: Somnolent, arouses to voice, no acute distress, A&Ox3. NAD. Cooperative. Skin: Numerous small, dry, excoriated papules with intermittent crust and red linear streaks at left upper back. No excoriations or lesions in the webspaces of the fingers. Scattered papular excoriated papules of the right cheek. Pruritic. HEENT: Atraumatic, normocephalic. Pupils equal and reactive to light. Visual acuity and hearing grossly intact. Pulm: CTAB A&P. -wheezes, -rales, -rhonchi. Symmetrical chest rise. No increase work of breathing. No respiratory distress. Cardiac: RRR, -mrg. Radial pulses intact and symmetrical. Abdominal: Trace epigastric tenderness, no rebound, abdomen nonrigid. Bowel sounds intact Extremities: Lower extremities with stockings and compression dressing bilaterally, some serous drainage into wound dressing on right lower extremity. No expanding erythema, 1+ edema. Sensation to soft touch intact in feet and fingertips. Results & Data Results & Data ([facility]) Vital Signs (Past 12 Hours) Vital Signs Temp Pulse Pulse Resp BP BP Pulse Ox 01/03/21 11:00 85 15 01/03/21 10:50 91 H 17 01/03/21 10:40 84 17 01/03/21 10:30 87 21 01/03/21 10:20 84 17 01/03/21 10:12 83 23 88 L 01/03/21 08:50 84 18 01/03/21 08:40 86 23 01/03/21 08:30 145/79 H 01/03/21 08:00 131/102 H 01/03/21 07:40 97 01/03/21 07:30 95 01/03/21 07:20 50 L 95 01/03/21 07:10 96 01/03/21 07:02 37.1 C 95 H 16 154/78 H 98 01/03/21 07:00 91 01/03/21 06:51 91 01/03/21 06:40 94 01/03/21 06:30 95 01/03/21 06:20 93 01/03/21 06:18 96 01/03/21 06:11 37.1 C 95 H 16 163/77 H 01/03/21 06:00 121/104 H 01/03/21 05:50 98 H 25 H 95 01/03/21 05:41 37.1 C 93 H 16 143/81 H 95 01/03/21 05:40 96 H 21 95 09/30/21 05:30 91 H 19 97 01/03/21 05:20 101 H 17 01/03/21 05:11 37.0 C 105 H 16 164/135 H 98 01/03/21 05:10 93 H 28 H 94 01/03/21 05:00 90 20 93 01/03/21 04:55 37.0 C 91 H 18 143/85 H 100 01/03/21 04:50 87 26 H 91 01/03/21 04:41 80 19 95 01/03/21 04:36 36.9 C 88 16 145/73 H 98 01/03/21 04:30 93 H 15 85 L 01/03/21 04:20 84 20 96 01/03/21 04:17 37 C 91 H 14 146/70 H 93 01/03/21 04:12 88 28 H 92 01/03/21 04:08 95 H 30 H 99 01/03/21 03:55 37 C 102 H 16 152/74 H 97 01/03/21 03:51 89 18 98 01/03/21 03:40 92 H 26 H 98 01/03/21 03:30 89 28 H 84 L 01/03/21 03:25 36.8 C 100 H 17 109/52 L 95 01/03/21 03:20 89 20 96 01/03/21 03:10 89 28 H 79 L 01/03/21 03:00 91 H 25 H 98 01/03/21 02:50 92 H 13 93 01/03/21 02:42 87 20 90 01/03/21 02:27 151/82 H 01/03/21 02:00 146/54 H 01/03/21 01:54 36.7 C 85 23 150/81 H 96 01/03/21 01:52 91 H 18 93 01/03/21 01:40 90 13 85 L 01/03/21 01:30 94 H 24 91 01/03/21 01:00 94 H 137/73 94 01/03/21 00:48 78 16 154/70 H 96 01/02/21 23:37 95 PG Care Time/CCT Total # of Minutes Spent Total Time Spent with Patient: Total time spent is greater than 50% in coordin ation of care (as documented) at patient's floor/unit and/or counseling patient: Coding Level of Care Code 52995 Subseq Hosp Care Lvl 3 Diagnoses Anemia due to blood loss, acute D62 Hematemesis K92.0 Nausea & vomiting R11.2 Vomiting Intractability: non-intractable Vomiting type: unspecified Diabetes mellitus, type II E11.9 CAD (coronary artery disease) I25.10 Atrial fibrillation I48.91 Atrial fibrillation type: unspecified GERD (gastroesophageal reflux disease) K21.9 Esophagitis presence: esophagitis presence not specified COPD (chronic obstructive pulmonary disease) J44.9 Hypothyroidism E03.9 Hypothyroidism type: unspecified Diabetic peripheral neuropathy E11.42 Depression with anxiety F41.8 Hypertension I10 Obstructive sleep apnea G47.33 Eschar of lower leg R23.4 Rash of back R21 Scabies B86 (1) Atrial fibrillation Atrial fibrillation type: unspecified Qualified Code(s): I48.91 - Unspecified atrial fibrillation (2) Hypothyroidism Hypothyroidism type: unspecified Qualified Code(s): E03.9 - Hypothyroidism, unspecified (3) GERD (gastroesophageal reflux disease) Esophagitis presence: esophagitis presence not specified Qualified Code(s): K21.9 - Gastro-esophageal reflux disease without esophagitis (4) Nausea & vomiting Vomiting Intractability: non-intractable Vomiting type: unspecified Qualified Code(s): R11.2 - Nausea with vomiting, unspecified
[2021-01-03] MEDS ORDERED: PERMETHRIN 5% CR 60 GM TUBE EXT ONE (12:52)
[2021-01-03 13:28] LABS: Hematocrit (blood only) 31.5 % (37-47); Hemoglobin 10.3 g/dL (12.0-16.0)
[2021-01-03] MEDS ORDERED: PROPOFOL IV EMULSION 10 MG/ML 20 ML VIAL IV ONE (13:47)
[2021-01-03] MEDS ORDERED: LIDOCAINE 2% 2 ML VIAL/AMP(20MG/ML) INFIL ONE (13:47)
--- NOTE | 2021-01-03 13:58 | GI REPORT ---
Patient Name: Tiffanie Porter Procedure Date: 01/03/2021 1:05 PM Date of : 1935 Admit Type: Inpatient Age: 85 Gender: Female Attending MD: Yasmani Mckeon MD Procedure: Small bowel enteroscopy Providers: Yasmani Mckeon MD Referring MD: Surjit Villafuerte Md Indications: Unexplained iron deficiency anemia, Obscure gastrointestinal bleeding Medicines: Monitored Anesthesia Care Complications: No immediate complications. Estimated blood loss: None. Estimated Blood Loss: Estimated blood loss: none. Procedure: Pre-Anesthesia Assessment: - Prior Anticoagulants: The patient has taken no previous anticoagulant or antiplatelet agents. - ASA Grade Assessment: III - A patient with severe systemic disease. After obtaining informed consent, the endoscope was passed under direct vision. Throughout the procedure, the patient's blood pressure, pulse, and oxygen saturations were monitored continuously. The Colonoscope was introduced through the mouth and advanced to the fourth part of duodenum. The small bowel enteroscopy was accomplished without difficulty. The patient tolerated the procedure well. Findings: The esophagus was normal. The stomach was normal. There was no evidence of significant pathology in the duodenal bulb, in the first portion of the duodenum, in the second portion of the duodenum, in the third portion of the duodenum and in the fourth portion of the duodenum. Impression: - Normal esophagus. - Normal stomach. - Normal duodenal bulb, first portion of the duodenum, second portion of the duodenum, third portion of the duodenum and fourth portion of the duodenum. - No specimens collected. Recommendation: - [facility]. - Advance diet as tolerated today. -check celiac serologies and serum igA levels -suspect her anemia is caused by a malabsorptive disorder or other disorder of production, do not suspect GI bleeding at this point Yasmani Mckeon MD 01/03/2021 1:57:43 PM This report has been signed electronically. Note Initiated On: 01/03/2021 1:05 PM Number of Addenda: 0 I attest to the content of the Intraoperative Record and orders documented therein, exceptions below {[id number]}
--- NOTE | 2021-01-03 14:09 | Anesthesiology Progress Note ---
Date of Service January 03, 2021 Anesthesia Post Procedure Vital Signs Vital Signs: Temp Pulse Pulse Pulse Resp BP BP 01/03/21 14:01 87 16 134/91 01/03/21 13:47 86 16 151/80 H 01/03/21 13:30 98.6 F 86 18 138/104 H 01/03/21 12:00 99.0 F 75 20 162/77 H 01/03/21 11:00 85 15 01/03/21 10:50 91 H 17 01/03/21 10:40 84 17 01/03/21 10:30 87 21 01/03/21 10:20 84 17 01/03/21 10:12 83 23 01/03/21 08:50 84 18 01/03/21 08:40 86 23 01/03/21 08:30 145/79 H 01/03/21 08:00 131/102 H 01/03/21 07:40 01/03/21 07:30 01/03/21 07:20 50 L 01/03/21 07:10 01/03/21 07:02 98.8 F 95 H 16 154/78 H 01/03/21 07:00 01/03/21 06:51 01/03/21 06:40 01/03/21 06:30 01/03/21 06:20 01/03/21 06:18 01/03/21 06:11 98.8 F 95 H 16 163/77 H 01/03/21 06:00 121/104 H 01/03/21 05:50 98 H 25 H 01/03/21 05:41 98.8 F 93 H 16 143/81 H 01/03/21 05:40 96 H 21 01/03/21 05:30 91 H 19 01/03/21 05:20 101 H 17 01/03/21 05:11 98.6 F 105 H 16 164/135 H 01/03/21 05:10 93 H 28 H 01/03/21 05:00 90 20 01/03/21 04:55 98.6 F 91 H 18 143/85 H 01/03/21 04:50 87 26 H 01/03/21 04:41 80 19 01/03/21 04:36 98.4 F 88 16 145/73 H 01/03/21 04:30 93 H 15 01/03/21 04:20 84 20 09/30/21 04:17 98.6 F 91 H 14 146/70 H 01/03/21 04:12 88 28 H 01/03/21 04:08 95 H 30 H 01/03/21 03:55 98.6 F 102 H 16 152/74 H 01/03/21 03:51 89 18 01/03/21 03:40 92 H 26 H 01/03/21 03:30 89 28 H 01/03/21 03:25 98.2 F 100 H 17 109/52 L 01/03/21 03:20 89 20 01/03/21 03:10 89 28 H 01/03/21 03:00 91 H 25 H 01/03/21 02:50 92 H 13 01/03/21 02:42 87 20 01/03/21 02:27 151/82 H 01/03/21 02:00 146/54 H 01/03/21 01:54 98.1 F 85 23 150/81 H 01/03/21 01:52 91 H 18 01/03/21 01:40 90 13 01/03/21 01:30 94 H 24 01/03/21 01:00 94 H 137/73 01/03/21 00:48 78 16 154/70 H 01/02/21 23:37 01/02/21 23:02 98.7 F 88 14 169/97 H Pulse Ox 01/03/21 14:01 97 01/03/21 13:47 97 01/03/21 13:30 97 01/03/21 12:00 98 01/03/21 11:00 01/03/21 10:50 01/03/21 10:40 01/03/21 10:30 01/03/21 10:20 01/03/21 10:12 88 L 01/03/21 08:50 01/03/21 08:40 01/03/21 08:30 01/03/21 08:00 01/03/21 07:40 97 01/03/21 07:30 95 01/03/21 07:20 95 01/03/21 07:10 96 01/03/21 07:02 98 01/03/21 07:00 91 01/03/21 06:51 91 01/03/21 06:40 94 01/03/21 06:30 95 01/03/21 06:20 93 01/03/21 06:18 96 01/03/21 06:11 01/03/21 06:00 01/03/21 05:50 95 01/03/21 05:41 95 01/03/21 05:40 95 01/03/21 05:30 97 01/03/21 05:20 01/03/21 05:11 98 01/03/21 05:10 94 01/03/21 05:00 93 01/03/21 04:55 100 01/03/21 04:50 91 01/03/21 04:41 95 01/03/21 04:36 98 01/03/21 04:30 85 L 01/03/21 04:20 96 01/03/21 04:17 93 01/03/21 04:12 92 01/03/21 04:08 99 01/03/21 03:55 97 01/03/21 03:51 98 01/03/21 03:40 98 01/03/21 03:30 84 L 01/03/21 03:25 95 01/03/21 03:20 96 01/03/21 03:10 79 L 01/03/21 03:00 98 01/03/21 02:50 93 01/03/21 02:42 90 01/03/21 02:27 01/03/21 02:00 01/03/21 01:54 96 01/03/21 01:52 93 01/03/21 01:40 85 L 01/03/21 01:30 91 01/03/21 01:00 94 01/03/21 00:48 96 01/02/21 23:37 95 01/02/21 23:02 96 Pain Intensity Abdomen: Pain Intensity: 7 Transfer of Care Handoff Completed per policy Notes Mental Status: alert / awake / arousable and participated in evaluation Patient Amnestic to Procedure: Yes Nausea / Vomiting: adequately controlled Pain: adequately controlled Airway Patency, RR, SpO2: stable & adequate BP & HR: stable & adequate Hydration State: stable & adequate Anesthetic Complications: no major complications apparent and Pt Satisfied with anesthetic care
[2021-01-03] MEDS: ISOSORBIDE MONO EXTENDED REL 30 MG TABCR PO SCH (19:40)
[2021-01-03 19:59] LABS: Hematocrit (blood only) 31.2 % (37-47); Hemoglobin 9.8 g/dL (12.0-16.0)
[2021-01-03 20:10] LABS: INR 1.1 (0.9-1.1); Prothrombin Time 11.5 Seconds (9.0-12.0)
[2021-01-03] MEDS: METOPROLOL SUCC 50MG EXT REL TAB PO SCH (21:08)
[2021-01-03] MEDS: PANTOprazole 40 MG TAB PO SCH (21:09)
[2021-01-03] MEDS: POTASSIUM CHLORIDE 10 MEQ TABCR PO SCH (21:09)
[2021-01-04 01:04] LABS: Hematocrit (blood only) 29.9 % (37-47); Hemoglobin 9.5 g/dL (12.0-16.0)
[2021-01-04 05:11] LABS: Hematocrit (blood only) 28.7 % (37-47); Mean Corpuscular Hemoglobin 31.4 pg (25-34); Mean Corpuscular Hgb Conc 31.4 g/dL (32-36); Nucleated RBC # (auto) 0.07 K/uL (0-0); Nucleated RBC % (auto) 0.6 %; Platelet Count 190 K/uL (130-400); RDW Coefficient of Variation 30.7 % (11.5-14.5); RDW Standard Deviation 100.8 fL (36.4-46.3); Red Blood Count 2.87 M/uL (4.2-5.4); White Blood Count 11.28 K/uL (4.8-10.8)
[2021-01-04 05:31] LABS: BUN Creatinine Ratio 25.5 (10-20); Calcium 8.4 mg/dl (8.5-10.1); Creatinine Clr Calc Pharmacy 25.1 ml/min; Est GFR (Non-African American) 31.9 ml/min; Potassium 3.9 mmol/L (3.5-5.1)
[2021-01-04] MEDS: LEVOTHYROXINE SODIUM 50 MCG TABLET PO SCH (05:48)
[2021-01-04 05:54] LABS: ALC (manual) 0.38 K/uL (1.2-3.4); ANC (manual) 10.51 K/uL (1.4-6.5); Anisocytosis Present; Dohle Bodies 1+; Lymphocytes # (manual) 0.38 K/uL (1.2-3.4); Lymphocytes % (manual) 3.4 %; Monocytes # (manual) 0.38 K/uL (0.11-0.59); Monocytes % (manual) 3.4 %; Neutrophils # (manual) 10.51 K/uL (1.4-6.5); Neutrophils % (manual) 93.2 %; Ovalocytes 1+; Polychromasia 1+
--- NOTE | 2021-01-04 06:06 | Electrocardiogram Report ---
Test Reason : Blood Pressure : / mmHG Vent. Rate : 090 BPM Atrial Rate : 072 BPM P-R Int : 000 ms QRS Dur : 082 ms QT Int : 370 ms P-R-T Axes : 000 -20 176 degrees QTc Int : 452 ms Atrial fibrillation Abnormal ECG When compared with ECG of 24-DEC-2020 11:10, No significant change was found Confirmed by Harvey Rodas ([id number]) on 01/04/2021 6:06:08 AM Referred By: REFERRED SELF Confirmed By:Harvey Rodas
--- NOTE | 2021-01-04 07:03 | Ultrasound Report ---
BILATERAL LOWER EXTREMITY VENOUS DOPPLER HISTORY: Leg swelling, pain COMPARISON STUDY: None. FINDINGS: Suboptimal evaluation due to patient positioning and patient movement during the examinatio n. There is normal compressibility, flow, and augmentation within the bilateral lower extremity deep venous systems. IMPRESSION: No definite DVT within the right or left lower extremity. ACT 112: Negative or not required by law. Electronically signed by: Lucius Tate M.D. 01/04/2021 7:01 AM
[2021-01-04 07:53] LABS: Estimated Average Glucose 103 mg/dl; Hemoglobin A1C 5.2 % (4.5-5.6)
[2021-01-04] MEDS ORDERED: PANTOprazole 40 MG TAB PO SCH (09:00)
[2021-01-04] MEDS: POTASSIUM CHLORIDE 10 MEQ TABCR PO SCH ×2 (09:16→20:52)
[2021-01-04] MEDS: INSULIN ASPART 100 UNITS/ML 3 ML PEN SC SCH ×4 (09:16→20:49)
[2021-01-04] MEDS: PANTOprazole 40 MG TAB PO SCH ×2 (09:17→20:52)
[2021-01-04] MEDS: MIRTAZAPINE TAB 15 MG TAB PO SCH (09:17)
[2021-01-04] MEDS: ISOSORBIDE MONO EXTENDED REL 30 MG TABCR PO SCH (09:17)
[2021-01-04] MEDS: METOPROLOL SUCC 50MG EXT REL TAB PO SCH ×2 (09:17→20:51)
--- NOTE | 2021-01-04 10:32 | Gastroenterology Progress Note ---
Date of Service January 04, 2021 Assessment & Plan (1) Nausea & vomiting: (2) Anemia due to blood loss, acute: Plan: 1. Clinically improved despite drop in H&H. 2. If overt GIB returning or significant drop in H&H, can consider GI bleeding scan. 3. Continue Pantoprazole 40 mg BID. 4. Continue supportive care. Thank you for allowing us to participate in the care of this pleasant patient. If you have questions or concerns, please do not hesitate to contact us. Admission and Anticipated Discharge Date Admission Date: January 03, 2021 Subjective Patient reports feeling better today. She is tolerating her diet. S/P small bowel endoscopy yesterday with no GIB noted. H&H did drop slightly but she denies any overt GIB sx. Continues Pantoprazole 40 mg BID. Review of Systems Constitutional: as per Subjective / HPI; no fever and no chills Gastrointestinal: no abdominal pain, no nausea, no vomiting, no blood in stools and no melena Physical Exam Constitutional: WD/WN, vitals as above Eyes: EOM intact bilaterally Respiratory: normal respiratory effort Skin: + pallor Psychiatric: A+Ox3, euthymic affect Results & Data Results & Data ([facility]) Vital Signs (Past 12 Hours) Vital Signs Temp Pulse Pulse Resp BP Pulse Ox 01/04/21 08:00 36.7 C 90 16 110/83 94 01/04/21 05:08 36.6 C 97 H 16 140/74 93 01/04/21 03:20 97 H 01/04/21 03:16 36.6 C 93 H 18 139/82 94 01/03/21 23:48 98 H 18 149/97 H 93 Laboratory Results Abnormal lab results 01/03/21 01/03/21 01/03/21 Range/Units 00:49 11:20 13:20 WBC (4.8-10.8) K/uL RBC (4.2-5.4) M/uL Hgb 10.3 L (12.0-16.0) g/dL Hct 31.5 L (37-47) % MCHC (32-36) g/dL RDW Std Deviation (36.4-46.3) fL RDW Coeff of Talia (11.5-14.5) % MPV (7.4-10.4) fL Absolute Nucleated RBC (0-0) K/uL Neutrophils # (Manual) (1.4-6.5) K/uL Total Absolute Neuts (1.4-6.5) K/uL Lymphocytes # (Manual) (1.2-3.4) K/uL Total Abs Lymphocytes (1.2-3.4) K/uL BUN (7-18) mg/dl Creatinine (0.6-1.2) mg/dl BUN/Creatinine Ratio (10-20) Glucose (70-99) mg/dl POC Glucose 213 H (70-99) mg/dl Calcium (8.5-10.1) mg/dl Crossmatch See Detail 01/03/21 01/03/21 01/03/21 Range/Units 16:03 16:05 19:51 WBC (4.8-10.8) K/uL RBC (4.2-5.4) M/uL Hgb 9.8 L (12.0-16.0) g/dL Hct 31.2 L (37-47) % MCHC (32-36) g/dL RDW Std Deviation (36.4-46.3) fL RDW Coeff of Talia (11.5-14.5) % MPV (7.4-10.4) fL Absolute Nucleated RBC (0-0) K/uL Neutrophils # (Manual) (1.4-6.5) K/uL Total Absolute Neuts (1.4-6.5) K/uL Lymphocytes # (Manual) (1.2-3.4) K/uL Total Abs Lymphocytes (1.2-3.4) K/uL BUN (7-18) mg/dl Creatinine (0.6-1.2) mg/dl BUN/Creatinine Ratio (10-20) Glucose (70-99) mg/dl POC Glucose 202 H 206 H (70-99) mg/dl Calcium (8.5-10.1) mg/dl Crossmatch 01/03/21 01/04/21 01/04/21 Range/Units 20:58 00:54 04:46 WBC 11.28 H (4.8-10.8) K/uL RBC 2.87 L (4.2-5.4) M/uL Hgb 9.5 L 9.0 L (12.0-16.0) g/dL Hct 29.9 L 28.7 L (37-47) % MCHC 31.4 L (32-36) g/dL RDW Std Deviation 100.8 H (36.4-46.3) fL RDW Coeff of Talia 30.7 H (11.5-14.5) % MPV 12.0 H (7.4-10.4) fL Absolute Nucleated RBC 0.07 H (0-0) K/uL Neutrophils # (Manual) 10.51 H (1.4-6.5) K/uL Total Absolute Neuts 10.51 H (1.4-6.5) K/uL Lymphocytes # (Manual) 0.38 L (1.2-3.4) K/uL Total Abs Lymphocytes 0.38 L (1.2-3.4) K/uL BUN (7-18) mg/dl Creatinine (0.6-1.2) mg/dl BUN/Creatinine Ratio (10-20) Glucose (70-99) mg/dl POC Glucose 244 H (70-99) mg/dl Calcium (8.5-10.1) mg/dl Crossmatch 01/04/21 01/04/21 Range/Units 04:46 07:33 WBC (4.8-10.8) K/uL RBC (4.2-5.4) M/uL Hgb (12.0-16.0) g/dL Hct (37-47) % MCHC (32-36) g/dL RDW Std Deviation (36.4-46.3) fL RDW Coeff of Talia (11.5-14.5) % MPV (7.4-10.4) fL Absolute Nucleated RBC (0-0) K/uL Neutrophils # (Manual) (1.4-6.5) K/uL Total Absolute Neuts (1.4-6.5) K/uL Lymphocytes # (Manual) (1.2-3.4) K/uL Total Abs Lymphocytes (1.2-3.4) K/uL BUN 38 H (7-18) mg/dl Creatinine 1.50 H (0.6-1.2) mg/dl BUN/Creatinine Ratio 25.5 H (10-20) Glucose 169 H (70-99) mg/dl POC Glucose 172 H (70-99) mg/dl Calcium 8.4 L D (8.5-10.1) mg/dl Crossmatch PG Care Time/CCT Total # of Minutes Spent Total Time Spent with Patient: Total time spent is greater than 50% in coordination of care (as documented) at patient's floor/unit and/or counseling patient: Coding Level of Care Code 47095 Subseq Hosp Care Lvl 3 Diagnoses Nausea & vomiting R11.2 Vomiting Intractability: non-intractable Vomiting type: unspecified Anemia due to blood loss, acute D62 (1) Nausea & vomiting Vomiting Intractability: non-intractable Vomiting type: unspecified Qualified Code(s): R11.2 - Nausea with vomiting, unspecified
--- NOTE | 2021-01-04 13:25 | Hospitalist Progress Note ---
Date of Service January 04, 2021 Assessment & Plan (1) Anemia due to blood loss, acute: Plan: Patient with nausea, vomiting, hematemesis prior to admission Hemoglobin baseline 11.52/21 and approximately 8 through 11/24 acutely decreased to 6.5 on admission Received 2 units packed red blood cells in ER, hemoglobin rise to 10.2 EGD: Normal esophagus. Normal stomach. Normal duodenal bulb, first portion of the duodenum, second portion of the duodenum, third portion of the duodenum and fourth portion of the duodenum. No specimens collected. Overall no signs of bleeding on EGD. Patient converted to Protonix oral Hemoglobin down trended to 9 this morning despite no signs of active bleeding and normal EGD We will repeat afternoon hemoglobin. If continuing will likely pursue tagged RBC scan DC fluids, tolerating oral intake at this time Continue to hold anticoagulant/antiplatelet with downtrending hemoglobin Resume other home p.o. meds Repeat hemoglobin pending (2) Hematemesis: Plan: See above, no recurrent episodes (3) Nausea & vomiting: Plan: Zofran 4 mg IV every 6 hours as needed (4) Diabetes mellitus, type II: Plan: Glucose checks AC/at bedtime or every 6 hours while n.p.o. Insulin SSI correction factor 25 ratio 10 Home glargine held on admit (5) CAD (coronary artery disease): Plan: Plavix and apixaban held in the setting of acute GI bleed Resume Bumex, digoxin, isosorbide, potassium, and metoprolol - Lopressor 5 mg IV every 4 hours as needed systolic blood pressure greater than 160 (6) Atrial fibrillation: Plan: See above (7) GERD (gastroesophageal reflux disease): Plan: See above (8) COPD (chronic obstructive pulmonary disease): Plan: Hold albuterol HFA DuoNebs every 2 hours as needed (9) Hypothyroidism: Plan: Hold levothyroxine 50 mcg until able to take p.o. (10) Diabetic peripheral neuropathy: Plan: Diabetic peripheral neuropathy/RLS type symptoms hold gabapentin while n.p.o. Morphine 2 mg IV every 4 hours as needed (11) Depression with anxiety: Plan: Hold oral medications Lorazepam 0.5 mg IV every 6 hours as needed (12) Hypertension: Plan: See above (13) Obstructive sleep apnea: Plan: CPAP at bedtime (14) Eschar of lower leg: Plan: Patient previously known to wound care, clustered eschars of right lower legs. Dressings currently in place, wound care consulted (15) Rash of back: Plan: Clustered scabbed itchy red lesions of right mid back Patient with history of scabies No mites seen on oil prep. Discussed with patient's partner, reports that the rash was treated and slightly improved and then has leveled out and been persistent, with no known recurrence. No other family members with rash, have been applying salve with gradual improvement at home. Contact precautions, trial triamcinolone for post treatment residual/persistent dermatitis (16) Scabies: Plan: - Numerous small, dry, excoriated papules with intermittent crust and red linear streaks at left upper back. No excoriations or lesions in the webspaces of the fingers. Scattered papular excoriated papules of the right - Treated a couple of months ago for scabies. Feels like it improved somewhat, but has been itchy and worse in the last 2 weeks. Lives at home with family, no one else with a rash at home. - No mites seen on scraping, but high clinical suspicion given appearance and hx - Pt reports good help at home, and has laundered sheets extensively after recent episode. - Txed with permethrin topical 5% -Per discussion with patient's family as above patient had had a rash which was treated at home and slightly improved before a persistent itchy rash continued suspicious for surgical dermatitis. Will trial TRiAM as above and follow clinically. Admission and Anticipated Discharge Date Admission Date: January 03, 2021 Subjective You are seen at the bedside today. She is alert and well-oriented, reports she feels well. Continues to feel fatigued, but better than prior. She denies abdominal pain, nausea, vomiting today. 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 She denies melena/bright red blood per rectum, denies other signs of bleeding. She does not have lightheadedness/dizziness/chest pain/shortness of breath at time of evaluation. Review of Systems Review of Systems: 10 point review of systems negative except as noted in HPI Physical Exam Physical Exam: General: A&Ox3. NAD. Cooperative. Skin: Numerous small, dry, excoriated papules with intermittent crust and red linear streaks at left upper back. No excoriations or lesions in the webspaces of the fingers. Scattered papular excoriated papules of the right cheek. Pruritic. HEENT: Atraumatic, normocephalic. Pupils equal and reactive to light. Visual acuity and hearing grossly intact. Pulm: CTAB A&P. -wheezes, -rales, -rhonchi. Symmetrical chest rise. No increase work of breathing. No respiratory distress. Cardiac: RRR, -mrg. Radial pulses intact and symmetrical. Abdominal: Trace epigastric tenderness, no rebound, abdomen nonrigid. Bowel sounds intact Extremities: Lower extremities with stockings and compression dressing bilaterally, some serous drainage into wound dressing on right lower extremity. No expanding erythema, 1+ edema. Sensation to soft touch intact in feet and fingertips. Results & Data Results & Data ([facility]) Vital Signs (Past 12 Hours) Vital Signs Temp Pulse Pulse Resp BP Pulse Ox 01/04/21 08:00 36.7 C 90 16 110/83 94 01/04/21 05:08 36.6 C 97 H 16 140/74 93 01/04/21 03:20 97 H 01/04/21 03:16 36.6 C 93 H 18 139/82 94 PG Care Time/CCT Total # of Minutes Spent Total Time Spent with Patient: Total time spent is greater than 50% in coordination of care (as documented) at patient's floor/unit and/or counseling patient: Coding Level of Care Code 75811 Subseq Hosp Care Lvl 3 Diagnoses Anemia due to blood loss, acute D62 Hematemesis K92.0 Nausea & vomiting R11.2 Vomiting Intractability: non-intractable Vomiting type: unspecified Diabetes mellitus, type II E11.9 CAD (coronary artery disease) I25.10 Atrial fibrillation I48.91 Atrial fibrillation type: unspecified GERD (gastroesophageal reflux disease) K21.9 Esophagitis presence: esophagitis presence not specified COPD (chronic obstructive pulmonary disease) J44.9 Hypothyroidism E03.9 Hypothyroidism type: unspecified Diabetic peripheral neuropathy E11.42 Depression with anxiety F41.8 Hypertension I10 Obstructive sleep apnea G47.33 Eschar of lower leg R23.4 Rash of back R21 Scabies B86 (1) Atrial fibrillation Atrial fibrillation type: unspecified Qualified Code(s): I48.91 - Unspecified atrial fibrillation (2) Hypothyroidism Hypothyroidism type: unspecified Qualified Code(s): E03.9 - Hypothyroidism, unspecified (3) GERD (gastroesophageal reflux disease) Esophagitis presence: esophagitis presence not specified Qualified Code(s): K21.9 - Gastro-esophageal reflux disease without esophagitis (4) Nausea & vomiting Vomiting Intractability: non-intractable Vomiting type: unspecified Qualified Code(s): R11.2 - Nausea with vomiting, unspecified
[2021-01-04 13:59] LABS: Hematocrit (blood only) 29.6 % (37-47); Hemoglobin 9.3 g/dL (12.0-16.0)
[2021-01-04] MEDS: DULoxetine HCL 60 MG CAP PO SCH (15:31)
[2021-01-04] MEDS: DIGOXIN 0.125 MG TAB PO SCH (15:31)
[2021-01-04] MEDS: GABAPENTIN 800 MG TAB PO SCH (15:32)
[2021-01-04] MEDS: allopurinoL 300 MG TAB PO SCH (15:32)
[2021-01-04] MEDS: INSULIN GLARGINE SOLOSTAR 100 UNITS/ML 3 ML PEN SC SCH (17:19)
[2021-01-04] MEDS ORDERED: TRIAMCINOLONE ACET 0.1% OINT 454 GM EXT SCH (21:00)
[2021-01-04] MEDS: SODIUM CHLORIDE 0.9% 1000ML 1,000 ML IV SCH (22:06)
[2021-01-04] MEDS: TRIAMCINOLONE ACET 0.1% OINT 15 GM TUBE EXT SCH (22:17)
[2021-01-05 05:15] LABS: Hematocrit (blood only) 29.6 % (37-47); Hemoglobin 9.1 g/dL (12.0-16.0); Mean Corpuscular Hemoglobin 31.4 pg (25-34); Mean Corpuscular Hgb Conc 30.7 g/dL (32-36); Mean Corpuscular Volume 102.1 fL (80-100); Nucleated RBC # (auto) 0.06 K/uL (0-0); Nucleated RBC % (auto) 0.8 %; Platelet Count 176 K/uL (130-400); RDW Coefficient of Variation 29.9 % (11.5-14.5); RDW Standard Deviation 102.5 fL (36.4-46.3); White Blood Count 7.59 K/uL (4.8-10.8)
[2021-01-05 05:34] LABS: Calcium 8.4 mg/dl (8.5-10.1); Creatinine Clr Calc Pharmacy 22.9 ml/min; Est GFR (African American) 32.7 ml/min; Est GFR (Non-African American) 28.2 ml/min
[2021-01-05 05:40] LABS: Ferritin 249.6 ng/ml (8-388)
[2021-01-05 06:11] LABS: ALC (manual) 0.73 K/uL (1.2-3.4); Anisocytosis Present; Eosinophils # (manual) 0.07 K/uL (0-0.5); Eosinophils % (manual) 0.9 %; Lymphocytes # (manual) 0.73 K/uL (1.2-3.4); Lymphocytes % (manual) 9.6 %; Metamyelocytes # (manual) 0.13 K/uL (0-0); Metamyelocytes % (manual) 1.7 %; Monocytes # (manual) 0.46 K/uL (0.11-0.59); Monocytes % (manual) 6.1 %; Neutrophils % (manual) 81.7 %; Ovalocytes 2+; Polychromasia 1+
[2021-01-05] MEDS: LEVOTHYROXINE SODIUM 50 MCG TABLET PO SCH (06:17)
[2021-01-05] MEDS: DULoxetine HCL 60 MG CAP PO SCH (08:17)
[2021-01-05] MEDS: TRIAMCINOLONE ACET 0.1% OINT 15 GM TUBE EXT SCH ×2 (08:17→20:22)
[2021-01-05] MEDS: PANTOprazole 40 MG TAB PO SCH ×2 (08:17→20:22)
[2021-01-05] MEDS: IRON POLYSACCHARIDE COMPLEX 150 MG CAPSULE PO SCH (08:17)
[2021-01-05] MEDS: POTASSIUM CHLORIDE 10 MEQ TABCR PO SCH ×2 (08:17→20:21)
[2021-01-05] MEDS: METOPROLOL SUCC 50MG EXT REL TAB PO SCH ×2 (08:17→20:21)
[2021-01-05] MEDS: MIRTAZAPINE TAB 15 MG TAB PO SCH (08:17)
[2021-01-05] MEDS: allopurinoL 300 MG TAB PO SCH (08:18)
[2021-01-05] MEDS: ISOSORBIDE MONO EXTENDED REL 30 MG TABCR PO SCH (08:18)
[2021-01-05] MEDS: GABAPENTIN 800 MG TAB PO SCH (08:18)
[2021-01-05] MEDS: INSULIN ASPART 100 UNITS/ML 3 ML PEN SC SCH ×4 (08:20→20:20)
--- NOTE | 2021-01-05 16:51 | Hospitalist Progress Note ---
Date of Service January 05, 2021 Assessment & Plan (1) Anemia due to blood loss, acute: Plan: Patient with nausea, vomiting, hematemesis prior to admission Hemoglobin baseline 11.52/21 and approximately 8 through 11/24 acutely decreased to 6.5 on admission Received 2 units packed red blood cells in ER, hemoglobin rise to 10.2 EGD: Normal esophagus. Normal stomach. Normal duodenal bulb, first portion of the duodenum, second portion of the duodenum, third portion of the duodenum and fourth portion of the duodenum. No specimens collected. Overall no signs of bleeding on EGD. Patient converted to Protonix oral Hemoglobin down trended to 9 this morning despite no signs of active bleeding and normal EGD Gradual downtrending hemoglobin, Iron studies with borderline low transferrin saturation, high RDW. Iron transfusion x1 Tolerating p.o. Continue to hold anticoagulant/antiplatelet with downtrending hemoglobin Resume other home p.o. meds If hemoglobin continues to downtrend anticipate tagged RBC scan Thursday (2) Hematemesis: Plan: See above, no recurrent episodes (3) Nausea & vomiting: Plan: Zofran 4 mg IV every 6 hours as needed (4) Diabetes mellitus, type II: Plan: Glucose checks AC/at bedtime or every 6 hours while n.p.o. Insulin SSI correction factor 25 ratio 10 Home glargine held on admit (5) CAD (coronary artery disease): Plan: Plavix and apixaban held in the setting of acute GI bleed Resume Bumex, digoxin, isosorbide, potassium, and metoprolol - Lopressor 5 mg IV every 4 hours as needed systolic blood pressure greater than 160 (6) Atrial fibrillation: Plan: See above (7) GERD (gastroesophageal reflux disease): Plan: See above (8) COPD (chronic obstructive pulmonary disease): Plan: Hold albuterol HFA DuoNebs every 2 hours as needed (9) Hypothyroidism: Plan: Hold levothyroxine 50 mcg until able to take p.o. (10) Diabetic peripheral neuropathy: Plan: Diabetic peripheral neuropathy/RLS type symptoms hold gabapentin while n.p.o. Morphine 2 mg IV every 4 hours as needed (11) Depression with anxiety: Plan: Hold oral medications Lorazepam 0.5 mg IV every 6 hours as needed (12) Hypertension: Plan: See above (13) Obstructive sleep apnea: Plan: CPAP at bedtime (14) Eschar of lower leg: Plan: Patient previously known to wound care, clustered eschars of right lower legs. Dressings currently in place, wound care consulted (15) Rash of back: Plan: Clustered scabbed itchy red lesions of right mid back Patient with history of scabies No mites seen on oil prep. Discussed with patient's partner, reports that the rash was treated and slightly improved and then has leveled out and been persistent, with no known recurrence. No other family members with rash, have been applying salve with gradual improvement at home. Contact precautions, trial triamcinolone for post treatment residual/persistent dermatitis (16) Scabies: Plan: - Numerous small, dry, excoriated papules with intermittent crust and red linear streaks at left upper back. No excoriations or lesions in the webspaces of the fingers. Scattered papular excoriated papules of the right - Treated a couple of months ago for scabies. Feels like it improved somewhat, but has been itchy and worse in the last 2 weeks. Lives at home with family, no one else with a rash at home. - No mites seen on scraping Suspect possible prior infection treated with residual dermatitis - Pt reports good help at home, and has laundered sheets extensively after recent episode. - Txed with permethrin topical 5% -Per discussion with patient's family as above patient had had a rash which was treated at home and slightly improved before a persistent itchy rash continued suspicious for surgical dermatitis. Continue triamcinolone twice daily as needed Admission and Anticipated Discharge Date Admission Date: January 03, 2021 Lolis Moreno is seen at the bedside this morning, she is sitting up eating breakfast co mfortably. She reports she feels slightly weak, but overall well. Denies lightheadedness, dizziness, chest pain, chest pressure, shortness of breath, syncope, presyncope today. She reports her back continues to hurt chronically from known spinal disease, itching on her back improved somewhat with creams today. No additional questions or concerns at time of bedside evaluation. She reports she has not had a bowel movement yet today, but denies melena/bright blood per rectum or any vomiting overnight. Review of Systems Review of Systems: 10 point review of systems negative except as noted in HPI Physical Exam Physical Exam: General: A&Ox3. NAD. Cooperative. Skin: Numerous small, dry, excoriated papules with intermittent crust and red linear streaks at left upper back. No excoriations or lesions in the webspaces of the fingers. Scattered papular excoriated papules of the right cheek. Pruritic, less than prior HEENT: Atraumatic, normocephalic. Pupils equal and reactive to light. Visual acuity and hearing grossly intact. Pulm: CTAB A&P. -wheezes, -rales, -rhonchi. Symmetrical chest rise. No increase work of breathing. No respiratory distress. Cardiac: RRR, -mrg. Radial pulses intact and symmetrical. Abdominal: No epigastric tenderness today, no rebound, abdomen nonrigid. Bowel sounds intact Extremities: No expanding erythema, 1+ edema. Sensation to soft touch intact in feet and fingertips. Results & Data Results & Data ([facility]) Vital Signs (Past 12 Hours) Vital Signs Temp Pulse Pulse Resp BP BP Pulse Ox 01/05/21 16:11 37.0 C 82 18 151/74 H 94 01/05/21 16:00 01/05/21 13:11 36.8 C 01/05/21 13:01 85 24 139/59 L 01/05/21 12:02 89 15 137/63 01/05/21 11:02 93 H 15 145/72 H 01/05/21 10:02 85 13 122/76 01/05/21 09:02 88 16 98/70 L 01/05/21 08:02 88 19 144/56 H 01/05/21 08:00 36.6 C 01/05/21 07:02 84 16 136/78 96 01/05/21 06:01 82 14 125/80 92 01/05/21 05:01 81 17 143/93 H 95 Pulse Ox 01/05/21 16:11 01/05/21 16:00 95 01/05/21 13:11 01/05/21 13:01 01/05/21 12:02 01/05/21 11:02 01/05/21 10:02 01/05/21 09:02 01/05/21 08:02 01/05/21 08:00 01/05/21 07:02 01/05/21 06:01 01/05/21 05:01 PG Care Time/CCT Total # of Minutes Spent Total Time Spent with Patient: Total time spent is greater than 50% in coordination of care (as documented) at patient's floor/unit and/or counseling patient: Coding Level of Care Code 68740 Subseq Hosp Care Lvl 3 Diagnoses Anemia due to blood loss, acute D62 Hematemesis K92.0 Nausea & vomiting R11.2 Vomiting Intractability: non-intractable Vomiting type: unspecified Diabetes mellitus, type II E11.9 CAD (coronary artery disease) I25.10 Atrial fibrillation I48.91 Atrial fibrillation type: unspecified GERD (gastroesophageal reflux disease) K21.9 Esophagitis presence: esophagitis presence not specified COPD (chronic obstructive pulmonary disease) J44.9 Hypothyroidism E03.9 Hypothyroidism type: unspecified Diabetic peripheral neuropathy E11.42 Depression with anxiety F41.8 Hypertension I10 Obstructive sleep apnea G47.33 Eschar of lower leg R23.4 Rash of back R21 Scabies B86 (1) Nausea & vomiting Vomiting Intractability: non-intractable Vomiting type: unspecified Qualified Code(s): R11.2 - Nausea with vomiting, unspecified (2) Atrial fibrillation Atrial fibrillation type: unspecified Qualified Code(s): I48.91 - Unspecified atrial fibrillation (3) GERD (gastroesophageal reflux disease) Esophagitis presence: esophagitis presence not specified Qualified Code(s): K21.9 - Gastro-esophageal reflux disease without esophagitis (4) Hypothyroidism Hypothyroidism type: unspecified Qualified Code(s): E03.9 - Hypothyroidism, unspecified
[2021-01-05] MEDS ORDERED: IRON SUCROSE 200 MG in 0.9 % SODIUM CHLORIDE 100 ML IV ONE (17:00)
[2021-01-05] MEDS: INSULIN GLARGINE SOLOSTAR 100 UNITS/ML 3 ML PEN SC SCH (20:21)
[2021-01-06 05:30] LABS: Basophils # (auto) 0.01 K/uL (0-0.2); Basophils % (auto) 0.2 %; Eosinophils # (auto) 0.25 K/uL (0-0.5); Eosinophils % (auto) 4.5 %; Hematocrit (blood only) 29.5 % (37-47); Hemoglobin 8.9 g/dL (12.0-16.0); Immature Granulocytes # (auto) 0.07 K/uL (0.00-0.02); Immature Granulocytes % (auto) 1.3 %; Lymphocytes # (auto) 0.45 K/uL (1.2-3.4); Lymphocytes % (auto) 8.1 %; Mean Corpuscular Hemoglobin 30.9 pg (25-34); Mean Corpuscular Hgb Conc 30.2 g/dL (32-36); Mean Corpuscular Volume 102.4 fL (80-100); Monocytes # (auto) 0.56 K/uL (0.11-0.59); Neutrophils # (auto) 4.25 K/uL (1.4-6.5); Neutrophils % (auto) 75.9 %; Nucleated RBC # (auto) 0.06 K/uL (0-0); Platelet Count 168 K/uL (130-400); RDW Standard Deviation 100.9 fL (36.4-46.3); Red Blood Count 2.88 M/uL (4.2-5.4); White Blood Count 5.59 K/uL (4.8-10.8)
[2021-01-06 05:59] LABS: Calcium 8.4 mg/dl (8.5-10.1); Creatinine Clr Calc Pharmacy 24.5 ml/min; Est GFR (African American) 36.1 ml/min; Est GFR (Non-African American) 31.1 ml/min
[2021-01-06 06:06] LABS: Anisocytosis Present; Ovalocytes 1+; Polychromasia 1+
[2021-01-06] MEDS: LEVOTHYROXINE SODIUM 50 MCG TABLET PO SCH (06:10)
--- NOTE | 2021-01-06 07:05 | Hospitalist Progress Note ---
Date of Service January 06, 2021 Assessment & Plan (1) Anemia due to blood loss, acute: Plan: Tiffanie is an 85-year-old female who presented with nausea/vomiting/hematemesis and who was treated for acute anemia with no signs of upper GI bleeding on EGD but with continually downtrending hemoglobin pending red blood cell scan anticipated 01/07 and his hospital course is complicated by development of right lower extremity (foot) cellulitis on 01/06. Patient with nausea, vomiting, hematemesis prior to admission Hemoglobin baseline 11.52/21 and approximately 8 through 11/24 acutely decreased to 6.5 on admission Received 2 units packed red blood cells in ER, hemoglobin rise to 10.2 EGD: Normal esophagus. Normal stomach. Normal duodenal bulb, first portion of the duodenum, second portion of the duodenum, third portion of the duodenum and fourth portion of the duodenum. No specimens collected. Overall no signs of bleeding on EGD. Patient converted to Protonix oral Hemoglobin down trended to 9 this morning despite no signs of active bleeding and normal EGD Iron studies with borderline low transferrin saturation, high RDW. Iron transfusion x1 Tolerating p.o. Continue to hold anticoagulant/antiplatelet with downtrending hemoglobin Resume other home p.o. meds Steady downtrending hemoglobin, avoid every 6/every 8 checks as concern for iatrogenic anemia in the setting of impaired production. Given rapid drop on admission from known prior and continued downtrend of hemoglobin despite iron infusion and nutritional supplementation anticipate proceeding with tagged red blood cell scan 01/07. (2) Hematemesis: Plan: See above, no recurrent episodes (3) Cellulitis in diabetic foot: Plan: - No leukocytosis - Clinically with R foot cellulitis today, increased swelling/redness/erythema compared to yesterday - Jonoepbellan daily - Remote MRSA, 6 years ago - Will cover w/ dapto at this time (4) Closed fracture of phalanx of fourth toe: Plan: - FootXR: Nondisplaced fracture within the mid shaft of the right fourth toe proximal phalanx. No change in the old small avulsion injury at the lateral aspect of the anterior calcaneus. The bones are osteopenic. The Lisfranc joint is intact. Mild soft tissue swelling within the foot most pronounced within the forefoot. Small plantar heel spur is noted. Nondisplaced fracture within the mid shaft of the right fourth toe proximal phalanx. No erosive changes. Suspect soft effusion following due to superimposed cellulitis managed as above Josiah taping performed, may consider toe plate shoe if persistent pain (5) Nausea & vomiting: Plan: Zofran 4 mg IV every 6 hours as needed (6) Diabetes mellitus, type II: Plan: Glucose checks AC/at bedtime or every 6 hours while n.p.o. Insulin SSI correction factor 25 ratio 10 Home glargine held on admit (7) CAD (coronary artery disease): Plan: Plavix and apixaban held in the setting of acute GI bleed Resume Bumex, digoxin, isosorbide, potassium, and metoprolol - Lopressor 5 mg IV every 4 hours as needed systolic blood pressure greater than 160 (8) Atrial fibrillation: Plan: See above (9) GERD (gastroesophageal reflux disease): Plan: See above (10) COPD (chronic obstructive pulmonary disease): Plan: Hold albuterol HFA DuoNebs every 2 hours as needed (11) Hypothyroidism: Plan: Hold levothyroxine 50 mcg until able to take p.o. (12) Diabetic peripheral neuropathy: Plan: Diabetic peripheral neuropathy/RLS type symptoms hold gabapentin while n.p.o. Morphine 2 mg IV every 4 hours as needed (13) Depression with anxiety: Plan: Hold oral medications Lorazepam 0.5 mg IV every 6 hours as needed (14) Hypertension: Plan: See above (15) Obstructive sleep apnea: Plan: CPAP at bedtime (16) Eschar of lower leg: Plan: Patient previously known to wound care, clustered eschars of right lower legs. Dressings currently in place, wound care consulted (17) Rash of back: Plan: Clustered scabbed itchy red lesions of right mid back Patient with history of scabies No mites seen on oil prep. Discussed with patient's partner, reports that the rash was treated and slightly improved and then has leveled out and been persistent, with no known recurrence. No other family members with rash, have been applying salve with gradual improvement at home. Contact precautions, trial triamcinolone for post treatment residual/persistent dermatitis (18) Scabies: Plan: - Numerous small, dry, excoriated papules with intermittent crust and red linear streaks at left upper back. No excoriations or lesions in the webspaces of the fingers. Scattered papular excoriated papules of the right - Treated a couple of months ago for scabies. Feels like it improved somewhat, but has been itchy and worse in the last 2 weeks. Lives at home with family, no one else with a rash at home. - No mites seen on scraping Suspect possible prior infection treated with residual dermatitis - Pt reports good help at home, and has laundered sheets extensively after recent episode. - Txed with permethrin topical 5% -Per discussion with patient's family as above patient had had a rash which was treated at home and slightly improved before a persistent itchy rash continued suspicious for residual dermatitis without active scabies infection. Continue triamcinolone twice daily as needed (19) Intestinal malabsorption: Plan: - ? cause of anemia per GI - Pt iron deficient, normal diet Admission and Anticipated Discharge Date Admission Date: January 03, 2021 Subjective Tiffanie is seen at the bedside this morning. She reports her foot hurts more than previous, reports had some pain in her toes on admission, but pain has greatly increased compared to yesterday. Skin is very sensitive to the touch. Her back continues to hurt chronically with no change, "okay "at time of assessment. Itching of her back improved with topical steroid. Denies fever, chills, sweats. Reports that she feels "weak and tired "without any focal strength loss. Denies chest pain, chest pressure, shortness of breath, difficulty breathing, cough. Denies nausea/vomiting/hematemesis, bloody/black bowel movements. Review of Systems Review of Systems: 10 point review of systems negative except as noted in HPI Physical Exam Physical Exam: General: A&Ox3. NAD. Cooperative. Skin: Numerous small, dry, excoriated papules with intermittent crust and red linear streaks at left upper back. No excoriations or lesions in the webspaces of the fingers. Scattered papular excoriated papules of the right cheek. Pruritus improved, erythema improved. HEENT: Atraumatic, normocephalic. Pupils equal and reactive to light. Visual acuity and hearing grossly intact. Pulm: CTAB A&P. -wheezes, -rales, -rhonchi. Symmetrical chest rise. No increase work of breathing. No respiratory distress. Cardiac: RRR, -mrg. Radial pulses intact and symmetrical. Abdominal: No epigastric tenderness today, no rebound, abdomen nonrigid. Bowel sounds intact Extremities: R foot with increased tenderness, moderate swelling, erythema, and warmth. Tenderness of the right forefoot and midfoot, no malleoli or tenderness. No purulence. Posterior calf skin ulceration appreciated, Nontender without warmth/swelling. PT pulses intact bilaterally. Results & Data Results & Data ([facility]) Vital Signs (Past 12 Hours) Vital Signs Temp Pulse Pulse Resp BP Pulse Ox 01/06/21 04:00 36.6 C 81 20 153/76 H 97 01/05/21 23:33 145/67 H 01/05/21 23:21 36.8 C 85 16 96 01/05/21 22:55 91 H 01/05/21 19:10 36.7 C 88 19 134/70 96 PG Care Time/CCT Total # of Minutes Spent Total Time Spent with Patient: Total time spent is greater than 50% in coordination of care (as documented) at patient's floor/unit and/or counseling patient: Coding Level of Care Code 29160 Subseq Hosp Care Lvl 3 Diagnoses Anemia due to blood loss, acute D62 Hematemesis K92.0 Nausea & vomiting R11.2 Vomiting Intractability: non-intractable Vomiting type: unspecified Diabetes mellitus, type II E11.9 CAD (coronary artery disease) I25.10 Atrial fibrillation I48.91 Atrial fibrillation type: unspecified GERD (gastroesophageal reflux disease) K21.9 Esophagitis presence: esophagitis presence not specified COPD (chronic obstructive pulmonary disease) J44.9 Hypothyroidism E03.9 Hypothyroidism type: unspecified Diabetic peripheral neuropathy E11.42 Depression with anxiety F41.8 Hypertension I10 Obstructive sleep apnea G47.33 Eschar of lower leg R23.4 Rash of back R21 Scabies B86 Intestinal malabsorption K90.9 Cellulitis in diabetic foot E11.628; L03.119 Closed fracture of phalanx of fourth toe S92.503A (1) Atrial fibrillation Atrial fibrillation type: unspecified Qualified Code(s): I48.91 - Unspecified atrial fibrillation (2) Hypothyroidism Hypothyroidism type: unspecified Qualified Code(s): E03.9 - Hypothyroidism, unspecified (3) GERD (gastroesophageal reflux disease) Esophagitis presence: esophagitis presence not specified Qualified Code(s): K21.9 - Gastro-esophageal reflux disease without esophagitis (4) Nausea & vomiting Vomiting Intractability: non-intractable Vomiting type: unspecified Qualified Code(s): R11.2 - Nausea with vomiting, unspecified
[2021-01-06] MEDS: INSULIN ASPART 100 UNITS/ML 3 ML PEN SC SCH ×4 (08:40→20:40)
[2021-01-06] MEDS: PANTOprazole 40 MG TAB PO SCH ×2 (08:41→20:41)
[2021-01-06] MEDS: POTASSIUM CHLORIDE 10 MEQ TABCR PO SCH ×2 (08:41→20:42)
[2021-01-06] MEDS: GABAPENTIN 800 MG TAB PO SCH (08:42)
[2021-01-06] MEDS: DULoxetine HCL 60 MG CAP PO SCH (08:42)
[2021-01-06] MEDS: METOPROLOL SUCC 50MG EXT REL TAB PO SCH ×2 (08:42→20:42)
[2021-01-06] MEDS: MIRTAZAPINE TAB 15 MG TAB PO SCH (08:42)
[2021-01-06] MEDS: TRIAMCINOLONE ACET 0.1% OINT 15 GM TUBE EXT SCH ×2 (08:42→20:43)
[2021-01-06] MEDS: ISOSORBIDE MONO EXTENDED REL 30 MG TABCR PO SCH (08:42)
[2021-01-06] MEDS: IRON POLYSACCHARIDE COMPLEX 150 MG CAPSULE PO SCH (08:42)
[2021-01-06] MEDS: allopurinoL 300 MG TAB PO SCH (08:42)
--- NOTE | 2021-01-06 14:46 | XRay Report ---
XR foot RT min 3V routine CLINICAL HISTORY: R foot pain, swelling. COMPARISON STUDY: Right foot 08/17/2020. FINDINGS: No change in the old small avulsion injury at the lateral aspect of the anterior calcaneus. The bones are osteopenic. The Lisfranc joint is intact. Mild soft tissue swelling within the foot mo st pronounced within the forefoot. Small plantar heel spur is noted. Nondisplaced fracture within the mid shaft of the right fourth toe proximal phalanx. No erosive changes. IMPRESSION: Nondisplaced fracture within the mid shaft of the right fourth toe proximal phalanx. ACT 112: Negative or not required by law. Electronically signed by: Lucius Tate M.D. 01/06/2021 2:45 PM
[2021-01-06] MEDS: cefTRIAXone SODIUM 1,000 MG in DEXTROSE 5% 50 ML IV SCH (15:34)
[2021-01-06] MEDS: DIGOXIN 0.125 MG TAB PO SCH (17:07)
[2021-01-06] MEDS: DAPTOmycin 200 MG in SYRINGE 0 ML IV SCH (17:07)
[2021-01-06] MEDS: INSULIN GLARGINE SOLOSTAR 100 UNITS/ML 3 ML PEN SC SCH (20:40)
[2021-01-07 05:41] LABS: Basophils # (auto) 0.03 K/uL (0-0.2); Basophils % (auto) 0.5 %; Eosinophils # (auto) 0.33 K/uL (0-0.5); Hematocrit (blood only) 29.6 % (37-47); Immature Granulocytes # (auto) 0.19 K/uL (0.00-0.02); Immature Granulocytes % (auto) 2.9 %; Lymphocytes # (auto) 0.49 K/uL (1.2-3.4); Lymphocytes % (auto) 7.4 %; Mean Corpuscular Hemoglobin 31.1 pg (25-34); Mean Corpuscular Hgb Conc 30.4 g/dL (32-36); Mean Corpuscular Volume 102.4 fL (80-100); Monocytes % (auto) 10.6 %; Neutrophils # (auto) 4.89 K/uL (1.4-6.5); Neutrophils % (auto) 73.6 %; Platelet Count 188 K/uL (130-400); RDW Coefficient of Variation 28.6 % (11.5-14.5); Red Blood Count 2.89 M/uL (4.2-5.4); White Blood Count 6.63 K/uL (4.8-10.8)
[2021-01-07 05:50] LABS: BUN Creatinine Ratio 24.7 (10-20); Calcium 8.2 mg/dl (8.5-10.1); Creatinine Clr Calc Pharmacy 27.2 ml/min; Est GFR (African American) 40.9 ml/min; Est GFR (Non-African American) 35.3 ml/min; Potassium 4.3 mmol/L (3.5-5.1)
[2021-01-07 06:41] LABS: Anisocytosis Present; Polychromasia 1+
[2021-01-07] MEDS: INSULIN ASPART 100 UNITS/ML 3 ML PEN SC SCH ×4 (08:03→20:08)
[2021-01-07] MEDS: ISOSORBIDE MONO EXTENDED REL 30 MG TABCR PO SCH (08:04)
[2021-01-07] MEDS: MIRTAZAPINE TAB 15 MG TAB PO SCH (08:04)
[2021-01-07] MEDS: POTASSIUM CHLORIDE 10 MEQ TABCR PO SCH ×2 (08:04→20:06)
[2021-01-07] MEDS: GABAPENTIN 800 MG TAB PO SCH (08:04)
[2021-01-07] MEDS: IRON POLYSACCHARIDE COMPLEX 150 MG CAPSULE PO SCH (08:04)
[2021-01-07] MEDS: allopurinoL 300 MG TAB PO SCH (08:04)
[2021-01-07] MEDS: DULoxetine HCL 60 MG CAP PO SCH (08:04)
[2021-01-07] MEDS: METOPROLOL SUCC 50MG EXT REL TAB PO SCH ×2 (08:04→20:06)
[2021-01-07] MEDS: LEVOTHYROXINE SODIUM 50 MCG TABLET PO SCH (08:04)
[2021-01-07] MEDS: PANTOprazole 40 MG TAB PO SCH ×2 (08:04→20:06)
[2021-01-07] MEDS: TRIAMCINOLONE ACET 0.1% OINT 15 GM TUBE EXT SCH ×2 (08:05→20:07)
--- NOTE | 2021-01-07 11:12 | Nuclear Medicine Report ---
NM GI bleeding CLINICAL HISTORY: 85 years-old Female with clear EGD, downtrending HGb, no clear source of bl. Acute anemia. Possible acute GI bleed TECHNIQUE: Following the intravenous administration of red cells labeled with 26.2 mCi of technetium -99m Ultratag, sequential abdominal images were obtained for 60 minutes. COMPARISON: CT abdomen and pelvis 01/03/2021 FINDINGS: There is no abnormal focus of labeled red cell accumulation or extravasation. There is expected acti vity in the blood pool. The liver and heart appear enlarged. IMPRESSION: No scintigraphic evidence for active gastro intestinal bleeding. ACT 112: Negative or not required by law. The above report was generated using voice recognition software. It may contain grammatical, syntax o r spelling errors. Electronically signed by: Cheo Vargsa M.D. 01/07/2021 11:10 AM
[2021-01-07] MEDS: cefTRIAXone SODIUM 1,000 MG in DEXTROSE 5% 50 ML IV SCH (12:58)
[2021-01-07] MEDS ORDERED: ACETAMINOPHEN 325 MG TAB PO PRN (14:52)
--- NOTE | 2021-01-07 15:01 | Hospitalist Progress Note ---
Date of Service January 07, 2021 Assessment & Plan (1) Anemia due to blood loss, acute: Plan: Tiffanie is an 85-year-old female who presented with nausea/vomiting/hematemesis and who was treated for acute anemia with no signs of upper GI bleeding on EGD but with continually downtrending hemoglobin pending red blood cell scan anticipated 01/07 and his hospital course is complicated by development of right lower extremity (foot) cellulitis on 01/06. Acute blood loss anemia ? Resolved GI bleed, impaired production Patient with nausea, vomiting, hematemesis prior to admission Hemoglobin baseline 11.52/21 and approximately 8 through 11/24 acutely decreased to 6.5 on admission Received 2 units packed red blood cells in ER, hemoglobin rise to 10.2 EGD: Normal esophagus. Normal stomach. Normal duodenal bulb, first portion of the duodenum, second portion of the duodenum, third portion of the duodenum and fourth portion of the duodenum. No specimens collected. Overall no signs of bleeding on EGD. Patient converted to Protonix oral Iron studies with borderline low transferrin saturation, high RDW. Iron transfusion x1 Tolerating p.o. Continue to hold anticoagulant/antiplatelet with downtrending hemoglobin Resume other home p.o. meds GI bleeding scan negative, hemoglobin uptrending 01/07 Discussed with patient's son who is her medical power of retail client manager. Per his report she is anticoagulated due to a occluded cardiac stent which occurred shortly after placement and while on dual antiplatelet therapy. Reports that she is supposed to be on both Plavix and apixaban. Discussed risk/benefits of resuming anticoagulation in the setting of admission for acute blood loss anemia. Given no signs of bleed on tach study, normal EGD, and uptrending hemoglobin will resume antiplatelet/anticoagulation with repeat CBC. Currently remaining pending PT/placement and treatment of cellulitis (2) Hematemesis: Plan: See above, no recurrent episodes (3) Cellulitis in diabetic foot: Plan: - No leukocytosis -Clinically improved - Rocephin daily - Remote MRSA, 6 years ago -Continue Dapto/Rocephin, anticipate conversion to early cephalosporin/doxy (4) Closed fracture of phalanx of fourth toe: Plan: - FootXR: Nondisplaced fracture within the mid shaft of the right fourth toe proximal phalanx. No change in the old small avulsion injury at the lateral aspect of the anterior calcaneus. The bones are osteopenic. The Lisfranc joint is intact. Mild soft tissue swelling within the foot most pronounced within the forefoot. Small plantar heel spur is noted. Nondisplaced fracture within the mid shaft of the right fourth toe proximal phalanx. No erosive changes. Suspect soft effusion following due to superimposed cellulitis managed as above Christen taping performed, may consider toe plate shoe if persistent pain (5) Nausea & vomiting: Plan: Zofran 4 mg IV every 6 hours as needed (6) Diabetes mellitus, type II: Plan: Glucose checks AC/at bedtime or every 6 hours while n.p.o. Insulin SSI correction factor 25 ratio 10 Home glargine held on admit (7) CAD (coronary artery disease): Plan: Plavix and apixaban held in the setting of acute GI bleed Resume Bumex, digoxin, isosorbide, potassium, and metoprolol - Lopressor 5 mg IV every 4 hours as needed systolic blood pressure greater than 160 (8) Atrial fibrillation: Plan: See above (9) GERD (gastroesophageal reflux disease): Plan: See above (10) COPD (chronic obstructive pulmonary disease): Plan: Hold albuterol HFA DuoNebs every 2 hours as needed (11) Hypothyroidism: Plan: Hold levothyroxine 50 mcg until able to take p.o. (12) Diabetic peripheral neuropathy: Plan: Diabetic peripheral neuropathy/RLS type symptoms hold gabapentin while n.p.o. Morphine 2 mg IV every 4 hours as needed (13) Depression with anxiety: Plan: Hold oral medications Lorazepam 0.5 mg IV every 6 hours as needed (14) Hypertension: Plan: See above (15) Obstructive sleep apnea: Plan: CPAP at bedtime (16) Eschar of lower leg: Plan: Patient previously known to wound care, clustered eschars of right lower legs. Dressings currently in place, wound care consulted (17) Rash of back: Plan: Clustered scabbed itchy red lesions of right mid back Patient with history of scabies No mites seen on oil prep. Discussed with patient's partner, reports that the rash was treated and slightly improved and then has leveled out and been pe rsistent, with no known recurrence. No other family members with rash, have been applying salve with gradual improvement at home. Contact precautions, trial triamcinolone for post treatment residual/persistent dermatitis (18) Scabies: Plan: - Numerous small, dry, excoriated papules with intermittent crust and red linear streaks at left upper back. No excoriations or lesions in the webspaces of the fingers. Scattered papular excoriated papules of the right - Treated a couple of months ago for scabies. Feels like it improved somewhat, but has been itchy and worse in the last 2 weeks. Lives at home with family, no one else with a rash at home. - No mites seen on scraping Suspect possible prior infection treated with residual dermatitis - Pt reports good help at home, and has laundered sheets extensively after recent episode. - Txed with permethrin topical 5% -Per discussion with patient's family as above patient had had a rash which was treated at home and slightly improved before a persistent itchy rash continued suspicious for residual dermatitis without active scabies infection. Continue triamcinolone twice daily as needed (19) Intestinal malabsorption: Plan: - ? cause of anemia per GI - Pt iron deficient, normal diet Admission and Anticipated Discharge Date Admission Date: January 03, 2021 Subjective Seen at the bedside this morning. Reports that her foot feels better to the touch, but still hurts. Christen taping has improved the pain in her right toe. Feels "very tired "and reports she feels achy. Right shoulder and hips hurt after working with PT/OT and moving around. She continues to report chronic back pain improved with gabapentin. Denies fever/chills. Denies chest pain, chest pressure, palpitations, shortness of breath, difficulty breathing, cough. Review of Systems Review of Systems: Constitutional: See above Eyes: Denies vision change ENT: Denies ear pain, sore throat, sinus pain Cardiovascular: Denies Chest pain, chest pressure, palpitations, extremity swelling Respiratory: Denies shortness of breath, cough, sputum production, difficulty breathing Gastrointestinal: Denies abdominal pain, nausea, vomiting, Genitourinary: Denies dysuria, urinary frequency Musculoskeletal: Endorses MSK pain as noted in HPI. Integumentary:Denies acute rash, lesions, bruising. Itching on back improved, but not resolved. Neurological: Denies numbness, tingling, focal weakness Physical Exam Physical Exam: General: A&Ox3. Nontoxic. Skin: Numerous small, dry, excoriated papules with intermittent crust and red linear streaks at left upper back. No excoriations or lesions in the webspaces of the fingers. Scattered papular excoriated papules of the right cheek. Pruritus improved, erythema improved. HEENT: Atraumatic, normocephalic. Pupils equal and reactive to light. Visual acuity and hearing grossly intact. Pulm: CTAB A&P. -wheezes, -rales, -rhonchi. Symmetrical chest rise. No increase work of breathing. No respiratory distress. Cardiac: RRR, -mrg. Radial pulses intact and symmetrical. Abdominal: No epigastric tenderness today, no rebound, abdomen nonrigid. Bowel sounds intact Extremities: R foot with increased tenderness, moderate swelling, erythema, and warmth, improved from prior. Right fourth toe christen taped, minimal tenderness to palpation. PT pulses intact bilaterally. Results & Data Results & Data ([facility]) Vital Signs (Past 12 Hours) Vital Signs Temp Pulse Pulse Resp BP BP Pulse Ox 01/07/21 11:10 36.5 C 87 22 151/78 H 96 01/07/21 07:02 36.5 C 77 20 135/94 97 01/07/21 04:00 36.6 C 82 20 160/85 H 97 01/07/21 03:04 84 16 PG Care Time/CCT Total # of Minutes Spent Total Time Spent with Patient: Total time spent is greater than 50% in coordination of care (as documented) at patient's floor/unit and/or counseling patient: Coding Level of Care Code 18022 Subseq Hosp Care Lvl 2 Diagnoses Anemia due to blood loss, acute D62 Hematemesis K92.0 Cellulitis in diabetic foot E11.628; L03.119 Closed fracture of phalanx of fourth toe S92.503A Nausea & vomiting R11.2 Vomiting Intractability: non-intractable Vomiting type: unspecified Diabetes mellitus, type II E11.9 CAD (coronary artery disease) I25.10 Atrial fibrillation I48.91 Atrial fibrillation type: unspecified GERD (gastroesophageal reflux disease) K21.9 Esophagitis presence: esophagitis presence not specified COPD (chronic obstructive pulmonary disease) J44.9 Hypothyroidism E03.9 Hypothyroidism type: unspecified Diabetic peripheral neuropathy E11.42 Depression with anxiety F41.8 Hypertension I10 Obstructive sleep apnea G47.33 Eschar of lower leg R23.4 Rash of back R21 Scabies B86 Intestinal malabsorption K90.9 (1) Nausea & vomiting Vomiting Intractability: non-intractable Vomiting type: unspecified Qualified Code(s): R11.2 - Nausea with vomiting, unspecified (2) Atrial fibrillation Atrial fibrillation type: unspecified Qualified Code(s): I48.91 - Unspecified atrial fibrillation (3) GERD (gastroesophageal reflux disease) Esophagitis presence: esophagitis presence not specified Qualified Code(s): K21.9 - Gastro-esophageal reflux disease without esophagitis (4) Hypothyroidism Hypothyroidism type: unspecified Qualified Code(s): E03.9 - Hypothyroidism, unspecified
[2021-01-07] MEDS ORDERED: HYDROmorphone INJ 0.5 MG/0.5 ML SYR IV STA ×2 (15:42→22:59)
[2021-01-07] MEDS: BUMETANIDE 1 MG TAB PO SCH (17:10)
--- NOTE | 2021-01-07 17:57 | XRay Report ---
LEFT SHOULDER 3 VIEWS HISTORY: Left shoulder pain. pt reports twisting injury, increased pain COMPARISON: Left shoulder 09/23/2020. FINDINGS: There is no fracture or dislocation. Soft tissues are unremarkable. The left clavicle is in tact. IMPRESSION: No fracture or dislocation within the left shoulder. ACT 112: Negative or not required by law. Electronically signed by: Lucius Tate M.D. 01/07/2021 5:56 PM
--- NOTE | 2021-01-07 18:01 | XRay Report ---
CERVICAL SPINE 3 VIEWS HISTORY: neck/shoulder pain COMPARISON: Cervical spine radiograph 03/06/2008. FINDINGS: The cervical spine is visualized from C1 through C7 on the lateral view. The lower cervical spine is partially obscured by the patient's overlapping shoulders. No definite fracture or subluxa tion. Mild disc space narrowing at C3-C4 with moderate disc space narrowing at C4-C5, C5-C6, and C6-C 7. This remains unchanged. Mild facet degenerative changes seen throughout the cervical spine. Prever tebral soft tissues and the atlantodens interval are intact. IMPRESSION: 1. No definite fracture or subluxation within the visualized cervical spine. 2. [id number] degenerative changes as described above. This is similar to the prior study. ACT 112: Negative or not required by law. Electronically signed by: Lucius Tate M.D. 01/07/2021 5:59 PM
[2021-01-07] MEDS: INSULIN GLARGINE SOLOSTAR 100 UNITS/ML 3 ML PEN SC SCH (20:07)
[2021-01-08] MEDS: LEVOTHYROXINE SODIUM 50 MCG TABLET PO SCH (04:13)
[2021-01-08 06:14] LABS: BUN Creatinine Ratio 24.8 (10-20); Calcium 8.5 mg/dl (8.5-10.1); Creatinine Clr Calc Pharmacy 25.7 ml/min; Est GFR (African American) 37.3 ml/min; Est GFR (Non-African American) 32.1 ml/min; Potassium 3.6 mmol/L (3.5-5.1)
[2021-01-08 06:15] LABS: Hemoglobin 9.1 g/dL (12.0-16.0); Mean Corpuscular Hemoglobin 31.1 pg (25-34); Mean Corpuscular Hgb Conc 30.3 g/dL (32-36); Mean Corpuscular Volume 102.4 fL (80-100); Nucleated RBC # (auto) 0.02 K/uL (0-0); Nucleated RBC % (auto) 0.3 %; Platelet Count 138 K/uL (130-400); RDW Standard Deviation 95.8 fL (36.4-46.3); Red Blood Count 2.93 M/uL (4.2-5.4); White Blood Count 5.85 K/uL (4.8-10.8)
[2021-01-08 06:16] LABS: ALC (manual) 0.56 K/uL (1.2-3.4); ANC (manual) 4.53 K/uL (1.4-6.5); Basophils # (manual) 0.05 K/uL (0-0.2); Basophils % (manual) 0.9 %; Eosinophils # (manual) 0.15 K/uL (0-0.5); Eosinophils % (manual) 2.6 %; Giant Platelets 1+; Lymphocytes # (manual) 0.56 K/uL (1.2-3.4); Lymphocytes % (manual) 9.6 %; Metamyelocytes # (manual) 0.15 K/uL (0-0); Metamyelocytes % (manual) 2.6 %; Monocytes % (manual) 5.2 %; Myelocytes % (manual) 1.7 %; Neutrophils # (manual) 4.53 K/uL (1.4-6.5); Neutrophils % (manual) 77.4 %; Ovalocytes 1+
[2021-01-08] MEDS: METOPROLOL SUCC 50MG EXT REL TAB PO SCH ×2 (08:16→21:15)
[2021-01-08] MEDS: allopurinoL 300 MG TAB PO SCH (08:17)
[2021-01-08] MEDS: IRON POLYSACCHARIDE COMPLEX 150 MG CAPSULE PO SCH (08:17)
[2021-01-08] MEDS: GABAPENTIN 800 MG TAB PO SCH (08:17)
[2021-01-08] MEDS: MIRTAZAPINE TAB 15 MG TAB PO SCH (08:17)
[2021-01-08] MEDS: CLOPIDOGREL BISULFATE 75 MG TAB PO SCH (08:18)
[2021-01-08] MEDS: BUMETANIDE 1 MG TAB PO SCH ×2 (08:18→16:33)
[2021-01-08] MEDS: ISOSORBIDE MONO EXTENDED REL 30 MG TABCR PO SCH (08:18)
[2021-01-08] MEDS: POTASSIUM CHLORIDE 10 MEQ TABCR PO SCH ×2 (08:18→21:15)
[2021-01-08] MEDS: PANTOprazole 40 MG TAB PO SCH ×2 (08:19→21:14)
[2021-01-08] MEDS: DULoxetine HCL 60 MG CAP PO SCH (08:21)
[2021-01-08] MEDS: TRIAMCINOLONE ACET 0.1% OINT 15 GM TUBE EXT SCH ×2 (08:22→21:17)
[2021-01-08] MEDS: INSULIN ASPART 100 UNITS/ML 3 ML PEN SC SCH ×4 (08:24→21:21)
[2021-01-08] MEDS: LIDOCAINE 5% 1 PATCH TD SCH (09:39)
[2021-01-08] MEDS: DICLOFENAC SOD 1% GEL 100 GM TUBE EXT SCH ×4 (09:39→21:17)
[2021-01-08] MEDS: cefTRIAXone SODIUM 1,000 MG in DEXTROSE 5% 50 ML IV SCH (13:02)
[2021-01-08] MEDS: DAPTOmycin 200 MG in SYRINGE 0 ML IV SCH (13:55)
--- NOTE | 2021-01-08 15:00 | Hospitalist Progress Note ---
Date of Service January 08, 2021 Assessment & Plan (1) Anemia due to blood loss, acute: Plan: Tiffanie is an 85-year-old female who presented with nausea/vomiting/hematemesis and who was treated for acute anemia with no signs of upper GI bleeding on EGD but with continually downtrending hemoglobin pending red blood cell scan anticipated 01/07 and his hospital course is complicated by development of right lower extremity (foot) cellulitis on 01/06. Acute blood loss anemia ? Resolved GI bleed, impaired production Patient with nausea, vomiting, hematemesis prior to admission Hemoglobin baseline 11.52/21 and approximately 8 through 11/24 acutely decreased to 6.5 on admission Received 2 units packed red blood cells in ER, hemoglobin rise to 10.2 EGD: Normal esophagus. Normal stomach. Normal duodenal bulb, first portion of the duodenum, second portion of the duodenum, third portion of the duodenum and fourth portion of the duodenum. No specimens collected. Overall no signs of bleeding on EGD. Patient converted to Protonix oral Iron studies with borderline low transferrin saturation, high RDW. Iron transfusion x1 Tolerating p.o. Continue to hold anticoagulant/antiplatelet with downtrending hemoglobin Resume other home p.o. meds GI bleeding scan negative, hemoglobin uptrending 01/07 Discussed with patient's son who is her medical power of civil attorney. Per his report she is anticoagulated due to a occluded cardiac stent which occurred shortly after placement and while on dual antiplatelet therapy. Reports that she is supposed to be on both Plavix and apixaban. Discussed risk/benefits of resuming anticoagulation in the setting of admission for acute blood loss anemia. Given no signs of bleed on tach study, normal EGD, and uptrending hemoglobin will resume antiplatelet/anticoagulation with repeat CBC. Currently remaining pending PT/placement and treatment of cellulitis. -> Doing well today. Hgb stable x 4 days. Received Plavix this AM and apixaban starting tonight. If no evidence of rebleed and hgb stable, likely discharge. [facility] may have bed tomorrow or . (2) Hematemesis: Plan: See above, no recurrent episodes (3) Cellulitis in diabetic foot: Plan: - No leukocytosis -Clinically improved - Rocephin daily - Remote MRSA, 6 years ago -Continue Dapto/Rocephin, anticipate conversion to cephalosporin/doxy on discharge. (4) Closed fracture of phalanx of fourth toe: Plan: - FootXR: Nondisplaced fracture within the mid shaft of the right fourth toe proximal phalanx. No change in the old small avulsion injury at the lateral aspect of the anterior calcaneus. The bones are osteopenic. The Lisfranc joint is intact. Mild soft tissue swelling within the foot most pronounced within the forefoot. Small plantar heel spur is noted. Nondisplaced fracture within the mid shaft of the right fourth toe proximal phalanx. No erosive changes. Suspect soft effusion following due to superimposed cellulitis managed as above Josiah taping performed, may consider toe plate shoe if persistent pain (5) Nausea & vomiting: Plan: Zofran 4 mg IV every 6 hours as needed (6) Diabetes mellitus, type II: Plan: Glucose checks AC/at bedtime or every 6 hours while n.p.o. Insulin SSI correction factor 25 ratio 10 Home glargine held on admit (7) CAD (coronary artery disease): Plan: Plavix and apixaban held in the setting of acute GI bleed -> Now restarted. Resume Bumex, digoxin, isosorbide, potassium, and metoprolol - Lopressor 5 mg IV every 4 hours as needed systolic blood pressure greater than 160 (8) Atrial fibrillation: Plan: See above (9) GERD (gastroesophageal reflux disease): Plan: See above (10) COPD (chronic obstructive pulmonary disease): Plan: Hold albuterol HFA DuoNebs every 2 hours as needed (11) Hypothyroidism: Plan: Hold levothyroxine 50 mcg until able to take p.o. (12) Diabetic peripheral neuropathy: Plan: Diabetic peripheral neuropathy/RLS type symptoms hold gabapentin while n.p.o. Morphine 2 mg IV every 4 hours as needed (13) Depression with anxiety: Plan: Hold oral medications Lorazepam 0.5 mg IV every 6 hours as needed (14) Hypertension: Plan: See above (15) Obstructive sleep apnea: Plan: CPAP at bedtime (16) Eschar of lower leg: Plan: Patient previously known to wound care, clustered eschars of right lower legs. Dressings currently in place, wound care consulted (17) Rash of back: Plan: Clustered scabbed itchy red lesions of right mid back Patient with history of scabies No mites seen on oil prep. Discussed with patient's partner, reports that the rash was treated and slightly improved and then has leveled out and been persistent, with no known recurrence. No other family members with rash, have been applying salve with gradual improvement at home. Contact precautions, trial triamcinolone for post treatment residual/persistent dermatitis (18) Scabies: Plan: - Numerous small, dry, excoriated papules with intermittent crust and red linear streaks at left upper back. No excoriations or lesions in the webspaces of the fingers. Scattered papular excoriated papules of the right - Treated a couple of months ago for scabies. Feels like it improved somewhat, but has been itchy and worse in the last 2 weeks. Lives at home with family, no one else with a rash at home. - No mites seen on scraping Suspect possible prior infection treated with residual dermatitis - Pt reports good help at home, and has laundered sheets extensively after recent episode. - Txed with permethrin topical 5% -Per discussion with patient's family as above patient had had a rash which was treated at home and slightly improved before a persistent itchy rash continued suspicious for residual dermatitis without active scabies infection. Continue triamcinolone twice daily as needed (19) Intestinal malabsorption: Plan: - ? cause of anemia per GI - Pt iron deficient, normal diet Admission and Anticipated Discharge Date Admission Date: January 03, 2021 Subjective Doing well overall today except for pain. She has pain in her shoulder from PT helping move her. She has chronic pain in her lower back and reports some pain in the legs as well that is chronic. Reports no fevers/chills, chest pain, shortness of breath, abdominal pain, nausea, or vomiting. Physical Exam Constitutional: WD/WN, vitals as above Eyes: EOM intact bilaterally; no conjunctival abnormality ENMT: external ear and nose normal, oropharynx normal Neck: trachea midline, no thyromegaly normal visual inspection Respiratory: normal respiratory effort, lungs clear to auscultation no respiratory distress Cardiovascular: RRR, no murmur, no edema Gastrointestinal (Abdomen): Inspection/Auscultation: abdomen normal to inspection; abdomen not distended Musculoskeletal: no cyanosis or clubbing, extremities motor strength 5/5 Skin: no rashes, warm and dry Neurologic: moves all extremities and awake Psychiatric: Orientation: alert, oriented to person and cooperative Results & Data Results & Data ([facility]) Vital Signs (Past 12 Hours) Vital Signs Temp Pulse Pulse Pulse Resp BP BP 01/08/21 13:33 82 16 01/08/21 13:13 01/08/21 12:00 86 18 157/91 H 01/08/21 07:30 36.7 C 01/08/21 07:29 76 20 150/59 H 01/08/21 04:12 36.7 C 72 20 141/74 H Pulse Ox 01/08/21 13:33 96 01/08/21 13:13 97 01/08/21 12:00 98 01/08/21 07:30 01/08/21 07:29 90 01/08/21 04:12 96 PG Care Time/CCT Total # of Minutes Spent Total Time Spent with Patient: Total time spent is greater than 50% in coordination of care (as documented) at patient's floor/unit and/or counseling patient: Coding Level of Care Code 71791 Subseq Hosp Care Lvl 2 Diagnoses Anemia due to blood loss, acute D62 Hematemesis K92.0 Cellulitis in diabetic foot E11.628; L03.119 Closed fracture of phalanx of fourth toe S92.503A Nausea & vomiting R11.2 Vomiting Intractability: non-intractable Vomiting type: unspecified Diabetes mellitus, type II E11.9 CAD (coronary artery disease) I25.10 Atrial fibrillation I48.91 Atrial fibrillation type: unspecified GERD (gastroesophageal reflux disease) K21.9 Esophagitis presence: esophagitis presence not specified COPD (chronic obstructive pulmonary disease) J44.9 Hypothyroidism E03.9 Hypothyroidism type: unspecified Diabetic peripheral neuropathy E11.42 Depression with anxiety F41.8 Hypertension I10 Obstructive sleep apnea G47.33 Eschar of lower leg R23.4 Rash of back R21 Scabies B86 Intestinal malabsorption K90.9 (1) Nausea & vomiting Vomiting Intractability: non-intractable Vomiting type: unspecified Qualified Code(s): R11.2 - Nausea with vomiting, unspecified (2) Atrial fibrillation Atrial fibrillation type: unspecified Qualified Code(s): I48.91 - Unspecified atrial fibrillation (3) GERD (gastroesophageal reflux disease) Esophagitis presence: esophagitis presence not specified Qualified Code(s): K21.9 - Gastro-esophageal reflux disease without esophagitis (4) Hypothyroidism Hypothyroidism type: unspecified Qualified Code(s): E03.9 - Hypothyroidism, unspecified
[2021-01-08] MEDS: traMADol HCL 50 MG TABLET PO PRN (16:31)
[2021-01-08] MEDS: DIGOXIN 0.125 MG TAB PO SCH (16:33)
--- NOTE | 2021-01-08 20:59 | XRay Report ---
XR shoulder LT min 2V routine INDICATION: MN ^Shoulder pain. TECHNIQUE: 3 views of the left shoulder were obtained. Comparison: Comparison is made to shoulder radiographs 01/07/2021 FINDINGS: There is no evidence of acute fracture, subluxation, or dislocation. The overlying soft tissues are u nremarkable. The visualized portions of the lungs are clear. IMPRESSION: No evidence of acute bony injury. ACT 112: Negative or not required by law. Electronically signed by: Jhoan Cox M.D. 01/08/2021 8:58 PM
[2021-01-08] MEDS: APIXABAN 2.5 MG TAB PO SCH (21:15)
[2021-01-08] MEDS: INSULIN GLARGINE SOLOSTAR 100 UNITS/ML 3 ML PEN SC SCH (21:20)
[2021-01-09 05:58] LABS: Hematocrit (blood only) 27.9 % (37-47); Hemoglobin 8.7 g/dL (12.0-16.0); Mean Corpuscular Hemoglobin 31.4 pg (25-34); Mean Corpuscular Hgb Conc 31.2 g/dL (32-36); Mean Corpuscular Volume 100.7 fL (80-100); Platelet Count 178 K/uL (130-400); RDW Coefficient of Variation 27.7 % (11.5-14.5); RDW Standard Deviation 95.6 fL (36.4-46.3); Red Blood Count 2.77 M/uL (4.2-5.4); White Blood Count 4.23 K/uL (4.8-10.8)
[2021-01-09] MEDS: LEVOTHYROXINE SODIUM 50 MCG TABLET PO SCH (06:23)
[2021-01-09 06:39] LABS: BUN Creatinine Ratio 25.2 (10-20); Calcium 8.1 mg/dl (8.5-10.1); Creatinine Clr Calc Pharmacy 26.8 ml/min; Est GFR (African American) 39.2 ml/min; Est GFR (Non-African American) 33.8 ml/min; Magnesium 1.7 mg/dl (1.8-2.4); Potassium 2.9 mmol/L (3.5-5.1)
[2021-01-09] MEDS: CLOPIDOGREL BISULFATE 75 MG TAB PO SCH (09:32)
[2021-01-09] MEDS: METOPROLOL SUCC 50MG EXT REL TAB PO SCH ×2 (09:33→21:58)
[2021-01-09] MEDS: APIXABAN 2.5 MG TAB PO SCH ×2 (09:34→21:59)
[2021-01-09] MEDS: ISOSORBIDE MONO EXTENDED REL 30 MG TABCR PO SCH (09:34)
[2021-01-09] MEDS: PANTOprazole 40 MG TAB PO SCH ×2 (09:35→21:59)
[2021-01-09] MEDS: BUMETANIDE 1 MG TAB PO SCH ×2 (09:35→17:48)
[2021-01-09] MEDS: allopurinoL 300 MG TAB PO SCH (09:36)
[2021-01-09] MEDS: POTASSIUM CHLORIDE 10 MEQ TABCR PO SCH ×2 (09:36→22:06)
[2021-01-09] MEDS: MIRTAZAPINE TAB 15 MG TAB PO SCH (09:36)
[2021-01-09] MEDS: DULoxetine HCL 60 MG CAP PO SCH (09:37)
[2021-01-09] MEDS: GABAPENTIN 800 MG TAB PO SCH (09:37)
[2021-01-09] MEDS: IRON POLYSACCHARIDE COMPLEX 150 MG CAPSULE PO SCH (09:38)
[2021-01-09] MEDS: LIDOCAINE 5% 1 PATCH TD SCH (09:38)
[2021-01-09] MEDS: TRIAMCINOLONE ACET 0.1% OINT 15 GM TUBE EXT SCH ×2 (09:39→22:00)
[2021-01-09] MEDS: DICLOFENAC SOD 1% GEL 100 GM TUBE EXT SCH ×4 (09:40→21:59)
[2021-01-09] MEDS: INSULIN ASPART 100 UNITS/ML 3 ML PEN SC SCH ×4 (09:42→21:38)
[2021-01-09] MEDS: traMADol HCL 50 MG TABLET PO PRN (10:30)
[2021-01-09] MEDS: ACETAMINOPHEN 325 MG TAB PO PRN (10:33)
[2021-01-09] MEDS ORDERED: POLYETHYLENE (MIRALAX) 17 GM PACK PO PRN (11:31)
[2021-01-09] MEDS: DOCUSATE SODIUM 100 MG CAP PO SCH ×2 (12:50→21:59)
--- NOTE | 2021-01-09 14:08 | Hospitalist Progress Note ---
Date of Service January 09, 2021 Assessment & Plan (1) Anemia due to blood loss, acute: Plan: Attending: Dr. Lopez Impression: Tiffanie is an 85-year-old female who presented with nausea/vomiting/hematemesis and who was treated for acute anemia with no signs of upper GI bleeding on EGD but with continually downtrending hemoglobin pending red blood cell scan anticipated 01/07 and his hospital course is complicated by development of right lower extremity (foot) cellulitis on 01/06. Acute blood loss anemia ? Resolved GI bleed, impaired production Patient with nausea, vomiting, hematemesis prior to admission Hemoglobin baseline 11.52/21 and approximately 8 through 11/24 acutely decreased to 6.5 on admission * No further apparent blood loss. Hemoglobin 8.7 today Received 2 units packed red blood cells in ER, hemoglobin rise to 10.2 EGD: Normal esophagus. Normal stomach. Normal duodenal bulb, first portion of the duodenum, second portion of the duodenum, third portion of the duodenum and fourth portion of the duodenum. No specimens collected. Overall no signs of bleeding on EGD. Patient converted to Protonix oral Iron studies with borderline low transferrin saturation, high RDW. Iron transfusion x1 Tolerating p.o. Continue to hold anticoagulant/antiplatelet with downtrending hemoglobin - resume on discharge Other home p.o. meds resumed GI bleeding scan negative, hemoglobin uptrending 01/07 Dr. Estevez discussed with patient's son who is her medical power of trademark attorney. Per his report she is anticoagulated due to a occluded cardiac stent which occurred shortly after placement and while on dual antiplatelet therapy. Reports that she is supposed to be on both Plavix and apixaban. Discussed risk/benefits of resuming anticoagulation in the setting of admission for acute blood loss anemia. Given no signs of bleed on tach study, normal EGD, and uptrending hemoglobin will resume antiplatelet/anticoagulation with repeat CBC. (2) Hematemesis: Plan: Resolved See above, no recurrent episodes (3) Cellulitis in diabetic foot: Plan: - No leukocytosis or fever -Clinically improved - Rocephin daily - Remote MRSA, 6 years ago -Continue Dapto/Rocephin, anticipate conversion to early cephalosporin/doxy on discharge (4) Closed fracture of phalanx of fourth toe: Plan: - FootXR: Nondisplaced fracture within the mid shaft of the right fourth toe proximal phalanx. No change in the old small avulsion injury at the lateral aspect of the anterior calcaneus. The bones are osteopenic. The Lisfranc joint is intact. Mild soft tissue swelling within the foot most pronounced within the forefoot. Small plantar heel spur is noted. Nondisplaced fracture within the mid shaft of the right fourth toe proximal phalanx. No erosive changes. Suspect soft effusion following due to superimposed cellulitis managed as above Josiah taping performed, may consider toe plate shoe if persistent pain (5) Nausea & vomiting: Plan: Resolved Zofran 4 mg IV every 6 hours as needed (6) Diabetes mellitus, type II: Plan: Glucose checks AC/at bedtime Insulin SSI correction factor 25 ratio 10 Home glargine held on admit -restarted on discharge tomorrow (7) CAD (coronary artery disease): Plan: Plavix and apixaban held in the setting of acute GI bleed but restarted 01/08/2021 Resume Bumex, digoxin, isosorbide, potassium, and metoprolol - Lopressor 5 mg IV every 4 hours as needed systolic blood pressure greater than 160 (8) Atrial fibrillation: Plan: See above (9) GERD (gastroesophageal reflux disease): Plan: See above (10) COPD (chronic obstructive pulmonary disease): Plan: Hold home albuterol HFA DuoNebs every 2 hours as needed (11) Hypothyroidism: Plan: Hold levothyroxine 50 mcg until able to take p.o. (12) Diabetic peripheral neuropathy: Plan: Diabetic peripheral neuropathy/RLS type symptoms Restart gabapentin while n.p.o. Morphine 2 mg IV every 4 hours as needed (13) Depression with anxiety: Plan: Oral medications restarted Lorazepam 0.5 mg IV every 6 hours as needed (14) Hypertension: Plan: See above (15) Obstructive sleep apnea: Plan: CPAP at bedtime (16) Eschar of lower leg: Plan: Patient previously known to wound care, clustered eschars of right lower legs. Dressings currently in place, wound care consulted (17) Rash of back: Plan: Clustered scabbed itchy red lesions of right mid back Patient with history of scabies No mites seen on oil prep. Discussed with patient's partner, reports that the rash was treated and slightly improved and then has leveled out and been persistent, with no known recurrence. No other family members with rash, have been applying salve with gradual improvement at home. Contact precautions, trial triamcinolone for post treatment residual/persistent dermatitis (18) Scabies: Plan: - Numerous small, dry, excoriated papules with intermittent crust and red linear streaks at left upper back. No excoriations or lesions in the webspaces of the fingers. Scattered papular excoriated papules of the right - Treated a couple of months ago for scabies. Feels like it improved somewhat, but has been itchy and worse in the last 2 weeks. Lives at home with family, no one else with a rash at home. - No mites seen on scraping Suspect possible prior infection treated with residual dermatitis - Pt reports good help at home, and has laundered sheets extensively after recent episode. - Txed with permethrin topical 5%. We will continue on discharge -Per discussion with patient's family as above patient had had a rash which was treated at home and slightly improved before a persistent itchy rash continued suspicious for residual dermatitis without active scabies infection. Continue triamcinolone twice daily as needed (19) Intestinal malabsorption: Plan: - ? cause of anemia per GI - Pt iron deficient, normal diet -Add multivitamin Admission and Anticipated Discharge Date Admission Date: January 03, 2021 Anticipated date of discharge: 01/10/21 Subjective Attending: Dr. Lopez Patient seen and examined at bedside. She is awake and alert. She is pleasant. She denies any further vomiting. No diarrhea. She denies any abdominal pain. She is unaware of any tachyarrhythmias. She has no cramping. She has no other acute complaints at this time. Review of Systems Review of Systems: All systems reviewed & are unremarkable except as noted in Subjective Physical Exam Physical Exam: GENERAL : No acute distress EYES: No icterus, gaze conjugate NOSE: No evidence of epistaxis MOUTH: No lesions or candidiasis NECK: Supple LUNGS: CTA B/L, no wheezes, rales or rhonchi HEART: Regular, rate controlled ABDOMEN: Soft, NT, ND, BS Present BACK: Red scabby rash over majority of back. No evidence of bleeding or irritation. Patient denies awareness. No rash on belly chest or thighs EXTREMITIES: No LE edema, pedal pulses intact NEURO: A&OX3 Results & Data Results & Data ([facility]) Vital Signs (Past 12 Hours) Vital Signs Temp Pulse Resp BP Pulse Ox 01/09/21 09:31 77 124/74 01/09/21 07:09 36.4 C L 75 16 128/70 95 Laboratory Results 01/09/21 05:20 01/09/21 05:20 Diagnostic Findings No further diagnostic imaging PG Care Time/CCT Total # of Minutes Spent Total Time Spent with Patient: Total time spent is greater than 50% in co ordination of care (as documented) at patient's floor/unit and/or counseling patient: Coding Level of Care Code 65549 Subseq Hosp Care Lvl 2 Diagnoses Anemia due to blood loss, acute D62 Hematemesis K92.0 Cellulitis in diabetic foot E11.628; L03.119 Closed fracture of phalanx of fourth toe S92.503A Nausea & vomiting R11.2 Vomiting Intractability: non-intractable Vomiting type: unspecified Diabetes mellitus, type II E11.9 CAD (coronary artery disease) I25.10 Atrial fibrillation I48.91 Atrial fibrillation type: unspecified GERD (gastroesophageal reflux disease) K21.9 Esophagitis presence: esophagitis presence not specified COPD (chronic obstructive pulmonary disease) J44.9 Hypothyroidism E03.9 Hypothyroidism type: unspecified Diabetic peripheral neuropathy E11.42 Depression with anxiety F41.8 Hypertension I10 Obstructive sleep apnea G47.33 Eschar of lower leg R23.4 Rash of back R21 Scabies B86 Intestinal malabsorption K90.9 Time Spent (min) 30 (1) Nausea & vomiting Vomiting Intractability: non-intractable Vomiting type: unspecified Qualified Code(s): R11.2 - Nausea with vomiting, unspecified (2) Atrial fibrillation Atrial fibrillation type: unspecified Qualified Code(s): I48.91 - Unspecified atrial fibrillation (3) GERD (gastroesophageal reflux disease) Esophagitis presence: esophagitis presence not specified Qualified Code(s): K21.9 - Gastro-esophageal reflux disease without esophagitis (4) Hypothyroidism Hypothyroidism type: unspecified Qualified Code(s): E03.9 - Hypothyroidism, unspecified
[2021-01-09] MEDS: cefTRIAXone SODIUM 1,000 MG in DEXTROSE 5% 50 ML IV SCH (14:59)
[2021-01-09] MEDS: MAGNESIUM SULFATE / D5W 1 GM/100 ML BAG IV SCH ×2 (15:28→17:18)
[2021-01-09] MEDS: POTASSIUM CHLORIDE / WTR 10 MEQ/100 ML PLCT IV SCH ×3 (15:30→17:43)
[2021-01-09] MEDS: INSULIN GLARGINE SOLOSTAR 100 UNITS/ML 3 ML PEN SC SCH (21:39)
[2021-01-10] MEDS: traMADol HCL 50 MG TABLET PO PRN ×2 (02:53→16:28)
[2021-01-10] MEDS: LEVOTHYROXINE SODIUM 50 MCG TABLET PO SCH (06:04)
[2021-01-10 06:05] LABS: Hematocrit (blood only) 30.3 % (37-47); Hemoglobin 9.4 g/dL (12.0-16.0); Mean Corpuscular Hemoglobin 31.5 pg (25-34); Mean Corpuscular Volume 101.7 fL (80-100); Mean Platelet Volume 11.2 fL (7.4-10.4); Platelet Count 191 K/uL (130-400); RDW Coefficient of Variation 27.6 % (11.5-14.5); RDW Standard Deviation 94.6 fL (36.4-46.3); Red Blood Count 2.98 M/uL (4.2-5.4); White Blood Count 4.12 K/uL (4.8-10.8)
[2021-01-10 06:37] LABS: BUN Creatinine Ratio 24.4 (10-20); Calcium 8.2 mg/dl (8.5-10.1); Creatinine Clr Calc Pharmacy 26.9 ml/min; Est GFR (African American) 39.5 ml/min; Est GFR (Non-African American) 34.1 ml/min; Potassium 3.2 mmol/L (3.5-5.1)
[2021-01-10] MEDS ORDERED: SENNA 8.6 MG TAB PO SCH (09:00)
[2021-01-10] MEDS ORDERED: CEROVITE ADV FORMULA TAB PO SCH (09:00)
[2021-01-10] MEDS: DOCUSATE SODIUM 100 MG CAP PO SCH (09:12)
[2021-01-10] MEDS: DULoxetine HCL 60 MG CAP PO SCH (09:12)
[2021-01-10] MEDS: ISOSORBIDE MONO EXTENDED REL 30 MG TABCR PO SCH (09:12)
[2021-01-10] MEDS: GABAPENTIN 800 MG TAB PO SCH (09:12)
[2021-01-10] MEDS: PANTOprazole 40 MG TAB PO SCH (09:12)
[2021-01-10] MEDS: METOPROLOL SUCC 50MG EXT REL TAB PO SCH (09:12)
[2021-01-10] MEDS: IRON POLYSACCHARIDE COMPLEX 150 MG CAPSULE PO SCH (09:12)
[2021-01-10] MEDS: MIRTAZAPINE TAB 15 MG TAB PO SCH (09:12)
[2021-01-10] MEDS: BUMETANIDE 1 MG TAB PO SCH ×2 (09:13→17:51)
[2021-01-10] MEDS: POTASSIUM CHLORIDE / WTR 10 MEQ/100 ML PLCT IV SCH ×3 (09:13→12:07)
[2021-01-10] MEDS: APIXABAN 2.5 MG TAB PO SCH (09:13)
[2021-01-10] MEDS: TRIAMCINOLONE ACET 0.1% OINT 15 GM TUBE EXT SCH (09:13)
[2021-01-10] MEDS: CLOPIDOGREL BISULFATE 75 MG TAB PO SCH (09:13)
[2021-01-10] MEDS: allopurinoL 300 MG TAB PO SCH (09:13)
[2021-01-10] MEDS: DICLOFENAC SOD 1% GEL 100 GM TUBE EXT SCH ×3 (09:14→17:50)
[2021-01-10] MEDS: LIDOCAINE 5% 1 PATCH TD SCH (09:14)
[2021-01-10] MEDS: INSULIN ASPART 100 UNITS/ML 3 ML PEN SC SCH ×3 (09:16→17:49)
[2021-01-10] MEDS: POTASSIUM CHLORIDE 10 MEQ TABCR PO SCH (09:19)
[2021-01-10] MEDS: DAPTOmycin 200 MG in SYRINGE 0 ML IV SCH (13:37)
[2021-01-10] MEDS: cefTRIAXone SODIUM 1,000 MG in DEXTROSE 5% 50 ML IV SCH (15:01)
--- NOTE | 2021-01-10 15:13 | Discharge Summary ---
Date of Service January 10, 2021 Admission HPI Per Admitting Provider Patient is a an 85-year-old female with a past medical history including severe tricuspid regurgitation, severe pulmonary hypertension, SNHL of both ears, mitral regurgitation, hyperlipidemia, gout, diabetic peripheral neuropathy, depression with anxiety, atrial fibrillation, BETHANY, CKD, hypothyroidism, status post implantation of urinary electric stimulator device, COPD, CAD, chronic venous insufficiency and chronic diastolic CHF. Patient presents with 3 days of persistent nausea, vomiting abdominal discomfort. She only presented to the ED today because her son insisted that she come here. Admission Exam Per Admitting Provider The patient is awake, alert and oriented 3, well developed and well nourished, normocephalic and atraumatic, lying in bed and in intermittent distress secondary to abdominal pelvic pain and RLS type symptoms HEENT--PERRL, EOMI, mucous membranes and oropharynx dry. Neck--supple. No JVD. No bruits. Thyroid normal, trachea midline, no adenopathy. Heart--normal S1 and S2. No murmurs, rubs or gallops. Lungs--clear bilaterally, no respiratory distress, no accessory muscle use. Abdomen--decreased bowel sounds, soft. Generalized tenderness. Nondistended, no hernias or masses, no organomegaly. Extremities--no cyanosis or clubbing. No edema. Dermatologic--normal skin turgor, normal color, no abnormal lymph nodes, no rash. Neurologic--cranial nerves II through XII grossly intact. Rheumatologic--normal range of motion. Psychiatric--normal affect. Principal Diagnosis Anemia, hematemesis, lower extremity wounds Discharge Exam GENERAL : No acute distress EYES: No icterus, gaze conjugate NOSE: No evidence of epistaxis MOUTH: No lesions or candidiasis NECK: Supple LUNGS: CTA B/L, no wheezes, rales or rhonchi HEART: Regular, rate controlled ABDOMEN: Soft, NT, ND, BS Present BACK: Red scabby rash over majority of back. No evidence of bleeding or irritation. Patient denies awareness. No rash on belly chest or thighs EXTREMITIES: No LE edema, pedal pulses intact Discharge Data Allergies Allergy/AdvReac Type Severity Reaction Status Date / Time shellfish derived Allergy Severe ANAPHYLAXIS Verified 01/03/21 00:39 iodine Allergy Intermediate ANAPHYLAXIS Verified 01/03/21 00:39 lisinopril Allergy Unknown Unknown Verified 01/03/21 00:39 oxybutynin [From Ditropan] Allergy Unknown Unknown Verified 01/03/21 00:39 sertraline [From Zoloft] Allergy Unknown Unknown Verified 01/03/21 00:39 paroxetine AdvReac Mild GI UPSET Verified 01/03/21 00:39 Consultations 01/03/21 01:44 ED Decision to Admit Stat 01/03/21 04:25 Consult Gastroenterology Routine Procedures Performed Operation Date: 01/03/21 16:30 Actual Procedures p Esophagogastroduodenoscopy(Not Applicable) - Yasmani Mckeon MD Ordered Studies 01/03/21 04:10 CT abd pelvis wo con Urgent 01/03/21 15:38 US venous doppler LE Urgent Hospital Course (1) Anemia due to blood loss, acute: Attending: Dr. Lopez Impression: Tiffanie is an 85-year-old female who presented with nausea/vomiting/hematemesis and who was treated for acute anemia with no signs of upper GI bleeding on EGD but with continually downtrending hemoglobin pending red blood cell scan anticipated 01/07 and his hospital course is complicated by development of right lower extremity (foot) cellulitis on 01/06. Acute blood loss anemia ? Resolved GI bleed, impaired production Patient with nausea, vomiting, hematemesis prior to admission Hemoglobin baseline 11.52/21 and approximately 8 through 11/24 acutely decreased to 6.5 on admission * No further apparent blood loss. Hemoglobin 8.7 today Received 2 units packed red blood cells in ER, hemoglobin rise to 10.2 EGD: Normal esophagus. Normal stomach. Normal duodenal bulb, first portion of the duodenum, second portion of the duodenum, third portion of the duodenum and fourth portion of the duodenum. No specimens collected. Overall no signs of bleeding on EGD. Patient converted to Protonix oral Iron studies with borderline low transferrin saturation, high RDW. Iron transfusion x1 Tolerating p.o. Continue to hold anticoagulant/antiplatelet with downtrending hemoglobin - resume on discharge Other home p.o. meds resumed GI bleeding scan negative, hemoglobin uptrending 01/07 Dr. Estevez discussed with patient's son who is her medical power of concrete inspector. Per his report she is anticoagulated due to a occluded cardiac stent which occurred shortly after placement and while on dual antiplatelet therapy. Reports that she is supposed to be on both Plavix and apixaban. Discussed risk/benefits of resuming anticoagulation in the setting of admission for acute blood loss anemia. Given no signs of bleed on tach study, normal EGD, and uptrending hemoglobin will resume antiplatelet/anticoagulation with repeat CBC. (2) Hematemesis: Resolved See above, no recurrent episodes (3) Cellulitis in diabetic foot: - No leukocytosis or fever -Clinically improved - Rocephin daily while inpatient - Remote MRSA, 6 years ago -Discharge home on Keflex and doxycycline (4) Closed fracture of phalanx of fourth toe: - FootXR: Nondisplaced fracture within the mid shaft of the right fourth toe proximal phalanx. No change in the old small avulsion injury at the lateral aspect of the anterior calcaneus. The bones are osteopenic. The Lisfranc joint is intact. Mild soft tissue swelling within the foot most pronounced within the forefoot. Small plantar heel spur is noted. Nondisplaced fracture within the mid shaft of the right fourth toe proximal phalanx. No erosive changes. Suspect soft effusion following due to superimposed cellulitis managed as above Josiah taping performed, may consider toe plate shoe if persistent pain (5) Diabetes mellitus, type II: Glucose checks AC/at bedtime Insulin SSI correction factor 25 ratio 10 Home glargine held on admit -restarted on discharge home (6) CAD (coronary artery disease): Plavix and apixaban held in the setting of acute GI bleed but restarted 01/08/2021 Resume Bumex, digoxin, isosorbide, potassium, and metoprolol - Lopressor 5 mg IV every 4 hours as needed systolic blood pressure greater than 160 (7) Atrial fibrillation: See above (8) GERD (gastroesophageal reflux disease): See above (9) COPD (chronic obstructive pulmonary disease): Hold home albuterol HFA DuoNebs every 2 hours as needed (10) Hypothyroidism: Hold levothyroxine 50 mcg until able to take p.o. (11) Diabetic peripheral neuropathy: Diabetic peripheral neuropathy/RLS type symptoms Restart gabapentin on discharge (12) Depression with anxiety: Continue usual home medications (13) Hypertension: See above (14) Obstructive sleep apnea: CPAP at bedtime (15) Eschar of lower leg: Patient previously known to wound care, clustered eschars of right lower legs. Dressings currently in place, wound care consulted (16) Rash of back: Clustered scabbed itchy red lesions of right mid back Patient with history of scabies No mites seen on oil prep. Discussed with patient's partner, reports that the rash was treated and slightly improved and then has leveled out and been persistent, with no known recurrence. No other family members with rash, have been applying salve with gradual improvement at home. Contact precautions, trial triamcinolone for post treatment residual/persistent dermatitis -Follow status at home with home health (17) Scabies: - Numerous small, dry, excoriated papules with intermittent crust and red linear streaks at left upper back. No excoriations or lesions in the webspaces of the fingers. Scattered papular excoriated papules of the right - Treated a couple of months ago for scabies. Feels like it improved somewhat, but has been itchy and worse in the last 2 weeks. Lives at home with family, no one else with a rash at home. - No mites seen on scraping Suspect possible prior infection treated with residual dermatitis - Pt reports good help at home, and has laundered sheets extensively after recent episode. - Txed with permethrin topical 5%. We will continue on discharge -Per discussion with patient's family as above patient had had a rash which was treated at home and slightly improved before a persistent itchy rash continued suspicious for residual dermatitis without active scabies infection. Continue triamcinolone twice daily as needed (18) Intestinal malabsorption: - ? cause of anemia per GI - Pt iron deficient, normal diet -Add multivitamin on discharge -Continue iron supplement on discharge Total Time Total Time Spent Total Time Spent (In Minutes): 35 Discharge Plan Discharge Items Patient Disposition: Home - Home Health Services Reason For Visit: ANEMIA, HEMATEMESIS Discharge Diagnosis: Anemia, hematemesis, lower extremity wounds Activity: Resume your previous activity Lifting: Gradually increase as tolerated Bathing: No limitations Exercise/Sports: Gradually increase as tolerated Weightbearing: Full weightbearing Non-emergency contact: Primary Care Provider Call non-emergency contact if: your symptoms worsen and you have a fever Follow-up/Referrals: Domi Wetzel DO [Primary Care Provider] - 01/28/21 9:20 am ( ) Diet: Carb Consistent or DM2 and Heart Healthy Addtl Attending Provider Instructions: You were admitted with nausea and vomiting with blood in your vomit as well as low blood counts. He received transfusions of packed red blood cells which he t olerated well. You had an endoscopy and there is no evidence of any bleeding or ulcer in your stomach or in your esophagus. You can continue your pantoprazole (antacid pill). Is also recommended that you start a multivitamin for nutrients. You should take all your medications as prescribed and follow-up with your family doctor within the next 7 to 10 days. Home health is being set up for you so that you have help with your wound care dressings. You should change her Optifoam and refresh the antibiotic ointment every other day with the help of home health. Pending Studies at Discharge: No Stand-Alone Forms: My [facility] Medications and DC Order Prescriptions: New hydrocortisone [Ala-Kushal] 1 % cream 1 applic topical BID Qty: 28.4 RF: 0 Certavite-Antioxidant 18-400 mg-mcg Tablet 1 tab PO QAM Qty: 30 RF: 0 polysaccharide iron complex [Ferrex 150] 150 mg iron Capsule 150 mg PO DAILY Qty: 30 RF: 0 cephalexin [Keflex] 750 mg capsule 750 mg PO BID Qty: 6 RF: 0 Continued cholecalciferol (vitamin D3) [Vitamin D3] 25 mcg (1,000 unit) tablet 2,000 unit PO QAM RF: 0 Eliquis 2.5 mg tablet 2.5 mg PO BID Qty: 180 RF: 1 magnesium oxide 400 mg magnesium tablet 400 mg PO BID Qty: 90 RF: 1 bumetanide 2 mg tablet 2 mg PO BID Qty: 60 RF: 2 Novolog Flexpen U-100 Insulin 100 unit/mL (3 mL) insulin pen 7 - 10 unit subcut TIDM Qty: 45 RF: 1 Lantus Solostar U-100 Insulin 100 unit/mL (3 mL) insulin pen 20 unit subcut HS Qty: 15 RF: 3 pantoprazole [Protonix] 40 mg tablet,delayed release (DR/EC) 40 mg PO QAM Qty: 90 RF: 1 levothyroxine [Synthroid] 50 mcg tablet 50 mcg PO DAILYBB Qty: 30 RF: 5 acetaminophen [Tylenol Arthritis Pain] 650 mg tablet extended release 1,300 mg PO HS RF: 0 metoprolol succinate [Toprol XL] 50 mg tablet extended release 24 hr 150 mg PO BID RF: 0 mupirocin 2 % ointment 1 applic topical BID Qty: 30 RF: 3 isosorbide mononitrate 30 mg tablet extended release 24 hr 30 mg PO QAM Qty: 90 RF: 1 albuterol sulfate [ProAir HFA] 90 mcg/actuation HFA aerosol inhaler 1 - 2 puffs INH Q4H PRN (Reason: shortness of breath or wheezing) Qty: 6.7 RF: 3 gabapentin 800 mg tablet 800 mg PO DAILY RF: 0 mirtazapine [Remeron] 15 mg tablet 15 mg PO QAM RF: 0 clopidogrel [Plavix] 75 mg tablet 75 mg PO QAM RF: 0 allopurinol [Zyloprim] 100 mg tablet 300 mg PO QAM RF: 0 fluticasone propionate [Flonase Allergy Relief] 50 mcg/actuation spray,suspension 1 spray intranasal BID PRN (Reason: allergy symptoms) RF: 0 duloxetine [Cymbalta] 60 mg capsule,delayed release(DR/EC) 60 mg PO QAM RF: 0 potassium chloride [K-Tab] 20 mEq tablet extended release 10 meq PO BID RF: 0 digoxin [Digitek] 125 mcg (0.125 mg) Tablet 125 mcg PO Q2D@1600 Qty: 15 RF: 0 Zostrix 0.033 % Cream 1 applic EXT TID PRN (Reason: neuropathy) Qty: 56.6 RF: 0 Discharge Orders: Discharge Order (Routine); Ordered 01/10/21 Ordered By: Jorge Verduzco/Other Patient Handouts: ED Diabetes- Overview Admission Data Admit Date/Time: 01/03/21 04:25 Attending Provider: Marquis Lopez Admit Provider: Stefan Hankins Primary Care Provider: Domi Wetzel Other Providers: Luis Estevez ; [facility] ; [facility] ; [facility], ; [place] ; Stefan Hankins ; Timur Roberson ; [facility] Other Interventions: Discharge Summary Assessment (RN) Last Done: 01/10/21 15:42 Supervising Physician Co-Signing Physician Notes Patient seen and examined at bedside. I discussed discharge planning with APC and patient. Obtained and reviewed hospital course with patient and obtained a physical exam. I reviewed above note and agree with it. Patient admitted with acute blood loss anemia given improvement of hemoglobin and normal EGD. will resume anticoagulation. recommend monitor levels as an outpatient. Coding Level of Care Code D/C DAY MANAGEMENT >30 MINS Diagnoses Anemia due to blood loss, acute D62 Hematemesis K92.0 Cellulitis in diabetic foot E11.628; L03.119 Closed fracture of phalanx of fourth toe S92.503A Diabetes mellitus, type II E11.9 CAD (coronary artery disease) I25.10 Atrial fibrillation I48.91 Atrial fibrillation type: unspecified GERD (gastroesophageal reflux disease) K21.9 Esophagitis presence: esophagitis presence not specified COPD (chronic obstructive pulmonary disease) J44.9 Hypothyroidism E03.9 Hypothyroidism type: unspecified Diabetic peripheral neuropathy E11.42 Depression with anxiety F41.8 Hypertension I10 Obstructive sleep apnea G47.33 Eschar of lower leg R23.4 Rash of back R21 Scabies B86 Intestinal malabsorption K90.9 Time Spent (min) 35 Home Health Attestation I certify that this patient is under my care and that I, or a physicians library serials assistant working with me, had a face to-face encounter that meets the home health [id number] encounter requirements with this patient. The encounter with the patient was in whole, or in part, for the following med ical condition, which is the primary reason for home health care (list medical condition): NSG/Wound Care I certify that, based on my findings, the following services are medically necessary home health services: My clinical findings support the need for the above services because: Skilled Nsg Assessment Surgical Incision / Wound S/S to Report to Provider Teach on Disease Management and Interventions Vital Signs Further, I certify that my clinical findings support that this patient is homebound (i.e. absences from home require considerable and taxing effort and are for medical reasons or rastafarian services or infrequently or of short duration when for other reasons) because: Assistance of 1 Person for Ambulation/Activities Certification for Home Health Services: Based on the above findings, I certify that this patient is confined to the home and needs intermittent [facility] care, physical therapy and/or speech therapy or continues to need occupational therapy. The patient is under my care, and I have initiated the establishment of the plan of care. This patient will be followed by a physician who will periodically review the plan of care.
[2021-01-10] MEDS: ACETAMINOPHEN 325 MG TAB PO PRN (16:23)
[2021-01-10] MEDS: DIGOXIN 0.125 MG TAB PO SCH (16:24)
== END 2021-01-10 20:39 | disposition home health service (06) | DRG 392 ==
LOC: ED 22:59 → EDINP 01-03 04:25 → SUATTDRO 01-03 04:25 → 1E 01-03 06:20 → 2S 01-08 09:08 → 3E 01-08 17:56
DX: F41.8 Other specified anxiety disorders; I25.10 Atherosclerotic heart disease of native coronary artery without angina pectoris; I13.0 Hypertensive heart and chronic kidney disease with heart failure and stage 1 through stage 4 chronic kidney disease, or unspecified chronic kidney disease; R21 Rash and other nonspecific skin eruption; D62 Acute posthemorrhagic anemia; G47.33 Obstructive sleep apnea (adult) (pediatric); E11.22 Type 2 diabetes mellitus with diabetic chronic kidney disease; K21.9 Gastro-esophageal reflux disease without esophagitis; R23.4 Changes in skin texture; B86 Scabies; L03.115 Cellulitis of right lower limb; J45.909 Unspecified asthma, uncomplicated; I50.32 Chronic diastolic (congestive) heart failure; J44.9 Chronic obstructive pulmonary disease, unspecified; I48.91 Unspecified atrial fibrillation; K92.0 Hematemesis; N18.30 Chronic kidney disease, stage 3 unspecified; I25.2 Old myocardial infarction; K90.9 Intestinal malabsorption, unspecified; E78.5 Hyperlipidemia, unspecified; E03.9 Hypothyroidism, unspecified

== ENCOUNTER 2021-04-16 09:01 | Observation (INO) ==
[2021-04-16] MEDS ORDERED: fentaNYL citrate 100 MCG/2 ML VIAL IV STA (09:12)
--- NOTE | 2021-04-16 09:21 | Emergency Department Note ---
History of Present Illness General Chief complaint: Chest Pain Time Seen by Provider: 04/16/21 09:04 Source: patient History of Present Illness Maximum Pain Intensity: 9 86-year-old female presents emergency department with substernal chest pain radiating to the bilateral shoulders that started approximately 1 hour to 1-1/2 hours ago. Patient took 2 Tylenol this morning. Patient has a prior history of cardiac stents [address] Roland, patient has a history of A. fib she is on Eliquis, patient called EMS she was given 2 nitro and 4 baby aspirin prior to emergency department arrival. Patient currently rates the pain as moderate radiating to bilateral shoulders. There is no shortness of breath there is no nausea vomiting diaphoresis. There are no other mitigating or alleviating factors Home Medications Medication Instructions Recorded Confirmed Type albuterol sulfate 90 mcg/actuation 1 - 2 puffs INH Q4H PRN #6.7 gm 04/26/19 04/16/21 Rx aerosol inhaler (ProAir HFA) cholecalciferol (vitamin D3) 25 2,000 unit PO QAM tab 05/11/20 04/16/21 History mcg (1,000 unit) tablet (Vitamin D3) allopurinol 100 mg tablet 300 mg PO QAM 11/07/20 04/16/21 History (Zyloprim) clopidogrel 75 mg tablet (Plavix) 75 mg PO QAM 11/07/20 04/16/21 History fluticasone propionate 50 1 spray INTRANASAL BID PRN 11/07/20 04/16/21 History mcg/actuation nasal spray,suspension (Flonase Allergy Relief) insulin aspart U-100 100 unit/mL 7 - 10 unit SUBCUT TIDM #45 ml 12/17/20 04/16/21 Rx (3 mL) subcutaneous pen (Novolog Flexpen U-100 Insulin aspart) insulin glargine 100 unit/mL (3 20 unit SUBCUT HS #15 ml 12/17/20 04/16/21 Rx mL) subcutaneous pen (Lantus Solostar U-100 Insulin) levothyroxine 50 mcg tablet 50 mcg PO DAILYBB #30 tab 12/19/20 04/16/21 Rx (Synthroid) pantoprazole 40 mg tablet,delayed 40 mg PO QAM #90 tab 12/19/20 04/16/21 Rx release (Protonix) multivitamin-ferrous 1 tab PO QAM #30 tab 01/10/21 04/16/21 Rx fumarate-folic acid 18 mg-400 mcg tablet (Certavite-Antioxidant) mirtazapine 15 mg tablet (Remeron) 15 mg PO QAM #30 tab 01/14/21 04/16/21 Rx magnesium oxide 400 mg PO BID #90 tab 01/21/21 04/16/21 Rx clobetasol 0.05 % topical cream 1 applic TOPICAL BID 01/28/21 04/16/21 History polyethylene glycol 3350 17 8.5 g PO DAILY PRN 01/28/21 04/16/21 History gram/dose oral powder (Miralax) vit C-vit T-[id number]-jwzk ox-lutein 1 cap PO BID 02/01/21 04/16/21 History 226 mg-200 unit-5 mg-0.8 mg capsule (PreserVision Lutein) bumetanide 2 mg tablet 2 mg PO BID #60 tab 02/04/21 04/16/21 Rx metoprolol succinate 50 mg 150 mg PO BID #540 tab 02/25/21 04/16/21 Rx tablet,extended release 24 hr (Toprol XL) potassium chloride 20 mEq 10 meq PO BID #180 tab 02/25/21 04/16/21 Rx tablet,extended release (K-Tab) digoxin 125 mcg (0.125 mg) tablet 125 mcg PO Q2D@1600 #15 tab 04/10/21 04/16/21 Rx (Digitek) isosorbide mononitrate 30 mg 30 mg PO QAM #90 tab 04/12/21 04/16/21 Rx tablet,extended release 24 hr acetaminophen 500 mg tablet 1,000 mg PO HS tab 04/15/21 04/16/21 History apixaban 2.5 mg tablet (Eliquis) 2.5 mg PO BID #180 tab 04/15/21 04/16/21 Rx duloxetine 30 mg capsule,delayed 30 mg PO QAM 04/16/21 04/16/21 History release (Cymbalta) duloxetine 60 mg capsule,delayed 60 mg PO QAM 04/16/21 04/16/21 History release (Cymbalta) polysaccharide iron complex 150 mg 150 mg PO QAM 04/16/21 04/16/21 History iron capsule (Ferrex) Allergies Allergy/AdvReac Type Severity Reaction Status Date / Time shellfish derived Allergy Severe ANAPHYLAXIS Verified 04/16/21 10:28 iodine Allergy Intermediate ANAPHYLAXIS Verified 04/16/21 10:28 lisinopril Allergy Unknown Unknown Verified 04/16/21 10:28 oxybutynin [From Ditropan] Allergy Unknown Unknown Verified 04/16/21 10:28 sertraline [From Zoloft] Allergy Unknown Unknown Verified 04/16/21 10:28 paroxetine AdvReac Mild GI UPSET Verified 04/16/21 10:28 Past Med/Surg History Medical History Anemia Asthma Atrial fibrillation CAD (coronary artery disease) Cerebrovascular disease Chronic diastolic congestive heart failure Chronic kidney disease (CKD) Stage III, baseline Cr 1.3-1.5mg/dL. Complicated with normocytic anemia and secondary hyperparathyroidism. Followed by nephrology. 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 Cannot perform MRI due to bladder implant. Followed by pain management. Epidural steroid injections with improvement of pain. Evaluated by ortho, decided against surgery. Managed with gabapentin 300mg TID + APAP PRN + tapentadol 50mg BID PRN GERD (gastroesophageal reflux disease) GIB (gastrointestinal bleeding) History of gout Managed with allopruinol daily. No recent gouty attacks. Uric acid suppressed 3.4 mg/dl (12/22) Hyperlipidemia Secondary prevention with moderate intensity statin (atorvastatin 20mg daily) Hypertension Hypothyroidism Lichen planus Macular degeneration Mitral regurgitation Neurologic gait dysfunction Obstructive sleep apnea Long standing. Managed with CPAP nightly. CPAP titration polysomnography (07/14). Sensorineural hearing loss (SNHL) of both ears Venous insufficiency of both lower extremities Surgical History H/O colonoscopy History of repair of rectocele S/P breast biopsy S/P section S/P cholecystectomy S/P hysterectomy S/P implantation of urinary electronic stimulator device Family History Father , Age 64 No problems noted. Mother , Age 61 No problems noted. Other Coronary heart disease Denies family history of Ovarian cancer Prostate cancer Crohn's disease Breast cancer Lung cancer Colorectal cancer Social History Smoking Status: Never smoker Second Hand Exposure: No; Hx Alcohol Use: No Hx Substance Use: No Preferred Language: Malay Communication Ability: Effective Visual Impairment: No Limitations Hearing Ability: Normal Assisted Living Assistant Required: No Beliefs That Will Affect Care: None marital status: / Current Living Situation: Significant Other Current Living Situation Comment: lives with Calderon mondragon partner current occupational status: retired Feels Safe at Home: Yes Childhood Exposure to Second-Hand Smoke: No Dental Care, Regularly: Yes Physical Activity Frequency: 1-2 Times per Week Physical Activity Frequency Comment: physical therapy Seatbelt Use: always Sunscreen Use: Yes Assistive Devices: None Review of Systems A total of 10 systems reviewed and were otherwise negative Respiratory: no cough Cardiovascular: + chest pain and + radiating jaw, neck or arm pain Musculoskeletal: + back pain Physical Exam Vital Signs Vital Signs - 24 hr 04/16/21 09:05 04/16/21 09:30 04/16/21 10:00 Temperature 36.8 C Temperature Source Oral Pulse Rate 77 80 75 Pulse Rate from SpO2 Sensor 80 75 Pulse Rhythm Irregular Respiratory Rate 19 21 21 Respiratory Effort / Characteristics Non-Labored Spontaneous Respiratory Depth Normal Respiratory Pattern Regular Blood Pressure 122/64 126/71 131/69 Blood Pressure Mean 83 89 89 Blood Pressure Position Lying Pulse Oximetry 97 95 96 Oxygen Delivery Method Room Air Room Air Sepsis Recent Fever Within 48 Hours No Sepsis New/Unexplained Change in Mental Status N/A Sepsis Action Taken by Nursing No Action Required 04/16/21 10:30 Temperature Temperature Source Pulse Rate 75 Pulse Rate from SpO2 Sensor 75 Pulse Rhythm Respiratory Rate 19 Respiratory Effort / Characteristics Respiratory Depth Respiratory Pattern Blood Pressure 114/62 Blood Pressure Mean 79 Blood Pressure Position Pulse Oximetry 99 Oxygen Delivery Method Sepsis Recent Fever Within 48 Hours Sepsis New/Unexplained Change in Mental Status Sepsis Action Taken by Nursing VITAL SIGNS - Vital signs and nursing notes were reviewed. GENERAL -86-year-old female appearing her stated age who is in no acute distress. Communicates well with provider and answers questions appropriately. SKIN -positive areas of ecchymosis in different stages of healing in the upper and lower extremities HEAD - NC/AT. EYES - PERRL with EOMI bilaterally. Sclera anicteric. Palpebral conjunctiva pink and moist with no injection noted. EARS - No deformities of external structures noted on gross examination diana aterally. NOSE - Midline and without cyanosis. No epistaxis or purulent drainage noted. Septum midline without deviation or septal hematoma noted. MOUTH/OROPHARYNX - Without perioral cyanosis. B NECK - Neck with FROM. Supple to palpation. [] lymphadenopathy noted. No nuchal rigidity. LUNGS - Chest wall symmetric without accessory muscle use, intercostals retractions, or central cyanosis. Normal vesicular breath sounds CTA B/L. No wheezes, rales, or rhonchi appreciated. CARDIAC -irregularly irregular No murmur, rubs, or gallops appreciated. ABDOMEN - Abdominal contour soft without pulsations or visible masses. BS normoactive all four quadrants. No tenderness, palpable masses, hepatosplenom egaly, or ascites noted. EXTREMITIES - No clubbing or peripheral cyanosis. Bilateral lower extremity pedal edema, ecchymosis in the upper and lower extremities NEUROLOGIC - Cranial nerves II through XII grossly intact. PSYCH - A&Ox3 and cooperates fully with examiner. Pt is very pleasant and inter acts well with examiner. Course Reevaluation(s) Reevaluation #1: 10:25 AM, repeat examination the patient has decreased chest pain and feels much improved. Patient's vital signs are stable she is hemodynamically stable. The patient's son was at bedside I discussed the evaluation with the patient and the patient's son. Reevaluation #2: 10:55 AM, case was discussed with the hospitalist physician assistant secretary for admission to Dr Agosto Administered Medications Discontinued Medications Fentanyl Citrate (Fentanyl Citrate 100 Mcg/2 Ml Vial) 50 mcg IV NOW STA Stop: 04/16/21 09:13 Last Admin: 04/16/21 09:21 Dose: 50 mcg Documented by: [id number] Medical Decision Making Laboratory Data Result diagrams: 04/16/21 09:10 04/16/21 10:50 Lab Results 04/16/21 04/16/21 04/16/21 Range/Units 09:10 09:10 09:10 WBC 7.88 (4.8-10.8) K/uL RBC 3.07 L (4.2-5.4) M/uL Hgb 10.3 L (12.0-16.0) g/dL Hct 32.7 L (37-47) % MCV 106.5 H (80-100) fL MCH 33.6 (25-34) pg MCHC 31.5 L (32-36) g/dL RDW Std Deviation 69.2 H (36.4-46.3) fL RDW Coeff of Talia 17.9 H (11.5-14.5) % Plt Count 245 (130-400) K/uL MPV 12.6 H (7.4-10.4) fL Immature Gran % (Auto) 0.6 % Neut % (Auto) 78.8 % Lymph % (Auto) 8.5 % Foster % (Auto) 9.3 % Eos % (Auto) 2.7 % Baso % (Auto) 0.1 % Neut # (Auto) 6.21 (1.4-6.5) K/uL Lymph # (Auto) 0.67 L (1.2-3.4) K/uL Foster # (Auto) 0.73 H (0.11-0.59) K/uL Eos # (Auto) 0.21 (0-0.5) K/uL Baso # (Auto) 0.01 (0-0.2) K/uL Immature Gran # (Auto) 0.05 H (0.00-0.02) K/uL PT 10.1 (9.0-12.0) Seconds INR 1.0 (0.9-1.1) APTT 25.6 (21.0-31.0) Seconds PTT Ratio 1.0 Sodium 137 (136-145) mmol/L Potassium (3.5-5.1) mmol/L Chloride 98 (98-107) mmol/L Carbon Dioxide 34 H (21-32) mmol/L Anion Gap 5.0 (3-11) BUN 44 H (7-18) mg/dl Creatinine 1.49 H (0.6-1.2) mg/dl Est Cr Clr Drug Dosing 24.1 ml/min Est GFR ( Amer) 37.0 ml/min Est GFR (Non-Af Amer) 31.9 ml/min BUN/Creatinine Ratio 29.6 H (10-20) Glucose 170 H (70-99) mg/dl Calcium 9.0 (8.5-10.1) mg/dl Total Bilirubin 1.1 H (0.2-1) mg/dl AST (15-37) U/L ALT 24 (12-78) Alkaline Phosphatase 114 (45-117) U/L Troponin I 0.03 (0-0.04) ng/ml Total Protein 6.5 (6.4-8.2) gm/dl Albumin 3.3 L (3.4-5.0) gm/dl Globulin 3.2 (2.5-4.0) gm/dl Albumin/Globulin Ratio 1.0 (0.9-2) SARS-CoV-2, RNA, NAAT (NEGATIVE) 04/16/21 04/16/21 Range/Units 09:55 10:50 WBC (4.8-10.8) K/uL RBC (4.2-5.4) M/uL Hgb (12.0-16.0) g/dL Hct (37-47) % MCV (80-100) fL MCH (25-34) pg MCHC (32-36) g/dL RDW Std Deviation (36.4-46.3) fL RDW Coeff of Talia (11.5-14.5) % Plt Count (130-400) K/uL MPV (7.4-10.4) fL Immature Gran % (Auto) % Neut % (Auto) % Lymph % (Auto) % Foster % (Auto) % Eos % (Auto) % Baso % (Auto) % Neut # (Auto) (1.4-6.5) K/uL Lymph # (Auto) (1.2-3.4) K/uL Foster # (Auto) (0.11-0.59) K/uL Eos # (Auto) (0-0.5) K/uL Baso # (Auto) (0-0.2) K/uL Immature Gran # (Auto) (0.00-0.02) K/uL PT (9.0-12.0) Seconds INR (0.9-1.1) APTT (21.0-31.0) Seconds PTT Ratio Sodium (136-145) mmol/L Potassium 3.3 L (3.5-5.1) mmol/L Chloride (98-107) mmol/L Carbon Dioxide (21-32) mmol/L Anion Gap (3-11) BUN (7-18) mg/dl Creatinine (0.6-1.2) mg/dl Est Cr Clr Drug Dosing ml/min Est GFR ( Amer) ml/min Est GFR (Non-Af Amer) ml/min BUN/Creatinine Ratio (10-20) Glucose (70-99) mg/dl Calcium (8.5-10.1) mg/dl Total Bilirubin (0.2-1) mg/dl AST 22 (15-37) U/L ALT (12-78) Alkaline Phosphatase (45-117) U/L Troponin I (0-0.04) ng/ml Total Protein (6.4-8.2) gm/dl Albumin (3.4-5.0) gm/dl Globulin (2.5-4.0) gm/dl Albumin/Globulin Ratio (0.9-2) SARS-CoV-2, RNA, NAAT NEGATIVE (NEGATIVE) Imaging Data Radiologist's Impression: Chest X-Ray 04/16/21 09:12 XR chest 1V portable CLINICAL HISTORY: Chest Pain. COMPARISON STUDY: 02/01/2021 TECHNIQUE: 1 view of the chest FINDINGS: Single frontal view of the chest demonstrates the heart size to be at the upper limits of normal to mildly enlarged. This is accentuated by decreased inspiratory effort and elevation of the hemidiaphragms. The lungs are clear of alveolar opacities. There is no evidence for pleural effusion. There is no evidence for vascular congestion. There is no acute osseous pathology. IMPRESSION: There is a decreased inspiratory effort with otherwise no acute chest disease. ACT 112: Negative or not required by law. Electronically signed by: Venkat Hall M.D. 04/16/2021 9:25 AM ECG Data Attestation: I personally reviewed and interpreted this ECG as follows: Additional Comments: EKG interpreted by me atrial fibrillation rate of 77 left axis deviation poor R wave progression the precordium nonspecific ST-T globally no obvious ST segment elevation or depression MDM Narrative Medical decision making differential diagnosis angina, unstable angina, acute [place], anxiety, GERD; plan is to check cardiac evaluation Impression & Plan Chest pain, Atrial fibrillation Discharge Plan Visit Data Chief Complaint: Chest Pain ED Provider: Dave Owen Discharge Problem: Chest pain, Atrial fibrillation Patient Disposition: Being Evaluated by Hospitalist Forms Stand Alone Forms: [facility] Prescriptions Prescriptions: No Action cholecalciferol (vitamin D3) [Vitamin D3] 25 mcg (1,000 unit) tablet 2,000 unit PO QAM RF: 0 Novolog Flexpen U-100 Insulin 100 unit/mL (3 mL) insulin pen 7 - 10 unit subcut TIDM Qty: 45 RF: 1 Lantus Solostar U-100 Insulin 100 unit/mL (3 mL) insulin pen 20 unit subcut HS Qty: 15 RF: 3 pantoprazole [Protonix] 40 mg tablet,delayed release (DR/EC) 40 mg PO QAM Qty: 90 RF: 1 levothyroxine [Synthroid] 50 mcg tablet 50 mcg PO DAILYBB Qty: 30 RF: 5 mirtazapine [Remeron] 15 mg tablet 15 mg PO QAM Qty: 30 RF: 5 magnesium oxide 400 mg magnesium tablet 400 mg PO BID Qty: 90 RF: 1 bumetanide 2 mg tablet 2 mg PO BID Qty: 60 RF: 5 potassium chloride [K-Tab] 20 mEq tablet extended release 10 meq PO BID Qty: 180 RF: 1 metoprolol succinate [Toprol XL] 50 mg tablet extended release 24 hr 150 mg PO BID Qty: 540 RF: 3 isosorbide mononitrate 30 mg tablet extended release 24 hr 30 mg PO QAM Qty: 90 RF: 1 Eliquis 2.5 mg tablet 2.5 mg PO BID Qty: 180 RF: 1 digoxin [Digitek] 125 mcg (0.125 mg) tablet 125 mcg PO Q2D@1600 Qty: 15 RF: 3 clobetasol 0.05 % cream 1 applic topical BID RF: 0 polyethylene glycol 3350 [Miralax] 17 gram/dose powder 8.5 g PO DAILY PRN (Reason: Constipation) RF: 0 albuterol sulfate [ProAir HFA] 90 mcg/actuation HFA aerosol inhaler 1 - 2 puffs INH Q4H PRN (Reason: shortness of breath or wheezing) Qty: 6.7 RF: 3 acetaminophen 500 mg tablet 1,000 mg PO HS RF: 0 polysaccharide iron complex [Ferrex 150] 150 mg iron capsule 150 mg PO QAM RF: 0 duloxetine [Cymbalta] 30 mg capsule,delayed release(DR/EC) 30 mg PO QAM RF: 0 duloxetine [Cymbalta] 60 mg capsule,delayed release(DR/EC) 60 mg PO QAM RF: 0 clopidogrel [Plavix] 75 mg tablet 75 mg PO QAM RF: 0 allopurinol [Zyloprim] 100 mg tablet 300 mg PO QAM RF: 0 fluticasone propionate [Flonase Allergy Relief] 50 mcg/actuation spray,suspension 1 spray intranasal BID PRN (Reason: allergy symptoms) RF: 0 Certavite-Antioxidant 18-400 mg-mcg Tablet 1 tab PO QAM Qty: 30 RF: 0 PreserVision Lutein 226 mg-200 unit -5 mg-0.8 mg Capsule 1 cap PO BID RF: 0 Referrals Referrals: Domi Wetzel DO [Primary Care Provider] -
[2021-04-16 09:22] LABS: Basophils # (auto) 0.01 K/uL (0-0.2); Basophils % (auto) 0.1 %; Eosinophils # (auto) 0.21 K/uL (0-0.5); Eosinophils % (auto) 2.7 %; Hematocrit (blood only) 32.7 % (37-47); Hemoglobin 10.3 g/dL (12.0-16.0); Immature Granulocytes # (auto) 0.05 K/uL (0.00-0.02); Immature Granulocytes % (auto) 0.6 %; Lymphocytes # (auto) 0.67 K/uL (1.2-3.4); Lymphocytes % (auto) 8.5 %; Mean Corpuscular Hemoglobin 33.6 pg (25-34); Mean Corpuscular Hgb Conc 31.5 g/dL (32-36); Mean Corpuscular Volume 106.5 fL (80-100); Mean Platelet Volume 12.6 fL (7.4-10.4); Monocytes # (auto) 0.73 K/uL (0.11-0.59); Monocytes % (auto) 9.3 %; Neutrophils # (auto) 6.21 K/uL (1.4-6.5); Neutrophils % (auto) 78.8 %; Platelet Count 245 K/uL (130-400); RDW Coefficient of Variation 17.9 % (11.5-14.5); RDW Standard Deviation 69.2 fL (36.4-46.3); Red Blood Count 3.07 M/uL (4.2-5.4); White Blood Count 7.88 K/uL (4.8-10.8)
--- NOTE | 2021-04-16 09:27 | XRay Report ---
XR chest 1V portable CLINICAL HISTORY: Chest Pain. COMPARISON STUDY: 02/01/2021 TECHNIQUE: 1 view of the chest FINDINGS: Single frontal view of the chest demonstrates the heart size to be at the upper limits of normal to m ildly enlarged. This is accentuated by decreased inspiratory effort and elevation of the hemidiaphrag ms. The lungs are clear of alveolar opacities. There is no evidence for pleural effusion. There is no evidence for vascular congestion. There is no acute osseous pathology. IMPRESSION: There is a decreased inspiratory effort with otherwise no acute chest disease. ACT 112: Negative or not required by law. Electronically signed by: Venkat Hall M.D. 04/16/2021 9:25 AM
[2021-04-16 09:41] LABS: Partial Thromboplastin Time 25.6 Seconds (21.0-31.0); Prothrombin Time 10.1 Seconds (9.0-12.0)
[2021-04-16 09:49] LABS: Troponin I 0.03 ng/ml (0-0.04)
[2021-04-16 10:20] LABS: Albumin Level 3.3 gm/dl (3.4-5.0); BUN Creatinine Ratio 29.6 (10-20); Bilirubin,Total 1.1 mg/dl (0.2-1); Creatinine Clr Calc Pharmacy 24.1 ml/min; Est GFR (Non-African American) 31.9 ml/min; Globulin 3.2 gm/dl (2.5-4.0); Total Protein 6.5 gm/dl (6.4-8.2)
--- NOTE | 2021-04-16 11:16 | History & Physical Report ---
Date of Service April 16, 2021 Assessment & Plan (1) Chest pain: Plan: Due to the patient's chest pain and known history of coronary artery disease she will be admitted to the hospital proceeding as follows: She will be placed on telemetry for serial cardiac enzymes and EKGs We will maintain the patient on her regimen of cardiac medications including Eliquis and Plavix. We will also maintain her on her home doses of metoprolol, Imdur, isosorbide, and digoxin We requested cardiology consultation with her induction brazer Dr. Roland for further risk stratification and determination if any further diagnostic tests are warranted As patient takes Eliquis no further DVT prevention will be required I discussed CODE STATUS with the patient and she notes in the event of cardiopulmonary arrest CPR is an acceptable modality. The above was discussed with her son Hayder who is also her power of research attorney. He can be reached at [phone] History of Present Illness Chief Complaint: Chest pain Primary Care Provider: Domi Wetzel DO This is an 86-year-old woman with a known history of cardiovascular disease. Patient says that she has had a cardiac catheterization in 2018 while she was in [place]. At this time she had a drug-eluting stent placed to her left anterior sending artery. She has since returned to the [facility] and in 2018 she was noted to have in-stent stenosis of the previously mentioned stent and she underwent an additional drug-eluting stent in December 2018. Patient notes that at the time of her second stent she did suffer a myocardial infarction. The patient presented the emergency department today at [facility] secondary to chest pain that was in her shoulders and back with no radiation to her arms. She said the pain began shortly after using the restroom this morning and felt similar to what she experienced when she had a prior myocardial infarction. Patient denied any shortness of breath but did have some nausea without vomiting. Upon arrival to the emergency department she said the only thing that relieves her pain was the administration of some fentanyl. In the emergency department the patient had labs and diagnostics which independently reviewed. Chest x-ray showed no evidence of widening of the mediastinum, pneumonia, or congestive heart failure. Cardiac enzymes were checked and were not elevated. A COVID test was performed and was negative. CBC revealed her hemoglobin and hematocrit were 10.3 and 32.7. The values of her hemoglobin and hematocrit today demonstrate stability over the past 1 to 2 months. White blood cell count and platelet count were noted to be normal. Patient's BUN and creatinine were noted to be 44 and 1.4. Her sodium and potassium are both noted to be normal. An EKG showed rate controlled atrial fibrillation without any changes indicative of acute ischemia. Patient's outpatient records were reviewed and she has been seen by cardiology in March 2021 and again at the heart failure clinic earlier this month where patient was noted to be doing well from a cardiac standpoint. The patient does report that she takes Eliquis and Plavix and due to her chest pain this morning has not taken these medications this morning but has otherwise been compliant with these medications. At the time of my interview the patient was resting comfortably in bed and she was in no distress. Allergies Allergy/AdvReac Type Severity Reaction Status Date / Time shellfish derived Allergy Severe ANAPHYLAXIS Verified 04/16/21 10:28 iodine Allergy Intermediate ANAPHYLAXIS Verified 04/16/21 10:28 lisinopril Allergy Unknown Unknown Verified 04/16/21 10:28 oxybutynin [From Ditropan] Allergy Unknown Unknown Verified 04/16/21 10:28 sertraline [From Zoloft] Allergy Unknown Unknown Verified 04/16/21 10:28 paroxetine AdvReac Mild GI UPSET Verified 04/16/21 10:28 Home Medications Medication Instructions Recorded Confirmed Type albuterol sulfate 90 mcg/actuation 1 - 2 puffs INH Q4H PRN #6.7 gm 04/26/19 04/16/21 Rx aerosol inhaler (ProAir HFA) cholecalciferol (vitamin D3) 25 2,000 unit PO QAM tab 05/11/20 04/16/21 History mcg (1,000 unit) tablet (Vitamin D3) allopurinol 100 mg tablet 300 mg PO QAM 11/07/20 04/16/21 History (Zyloprim) clopidogrel 75 mg tablet (Plavix) 75 mg PO QAM 11/07/20 04/16/21 History fluticasone propionate 50 1 spray INTRANASAL BID PRN 11/07/20 04/16/21 History mcg/actuation nasal spray,suspension (Flonase Allergy Relief) insulin aspart U-100 100 unit/mL 7 - 10 unit SUBCUT TIDM #45 ml 12/17/20 04/16/21 Rx (3 mL) subcutaneous pen (Novolog Flexpen U-100 Insulin aspart) insulin glargine 100 unit/mL (3 20 unit SUBCUT HS #15 ml 12/17/20 04/16/21 Rx mL) subcutaneous pen (Lantus Solostar U-100 Insulin) levothyroxine 50 mcg tablet 50 mcg PO DAILYBB #30 tab 12/19/20 04/16/21 Rx (Synthroid) pantoprazole 40 mg tablet,delayed 40 mg PO QAM #90 tab 12/19/20 04/16/21 Rx release (Protonix) multivitamin-ferrous 1 tab PO QAM #30 tab 01/10/21 04/16/21 Rx fumarate-folic acid 18 mg-400 mcg tablet (Certavite-Antioxidant) mirtazapine 15 mg tablet (Remeron) 15 mg PO QAM #30 tab 01/14/21 04/16/21 Rx magnesium oxide 400 mg PO BID #90 tab 01/21/21 04/16/21 Rx clobetasol 0.05 % topical cream 1 applic TOPICAL BID 01/28/21 04/16/21 History polyethylene glycol 3350 17 8.5 g PO DAILY PRN 01/28/21 04/16/21 History gram/dose oral powder (Miralax) vit C-vit O-[id number]-[id number] ox-lutein 1 cap PO BID 02/01/21 04/16/21 History 226 mg-200 unit-5 mg-0.8 mg capsule (PreserVision Lutein) bumetanide 2 mg tablet 2 mg PO BID #60 tab 02/04/21 04/16/21 Rx metoprolol succinate 50 mg 150 mg PO BID #540 tab 02/25/21 04/16/21 Rx tablet,extended release 24 hr (Toprol XL) potassium chloride 20 mEq 10 meq PO BID #180 tab 02/25/21 04/16/21 Rx tablet,extended release (K-Tab) digoxin 125 mcg (0.125 mg) tablet 125 mcg PO Q2D@1600 #15 tab 04/10/21 04/16/21 Rx (Digitek) isosorbide mononitrate 30 mg 30 mg PO QAM #90 tab 04/12/21 04/16/21 Rx tablet,extended release 24 hr acetaminophen 500 mg tablet 1,000 mg PO HS tab 04/15/21 04/16/21 History apixaban 2.5 mg tablet (Eliquis) 2.5 mg PO BID #180 tab 04/15/21 04/16/21 Rx duloxetine 30 mg capsule,delayed 30 mg PO QAM 04/16/21 04/16/21 History release (Cymbalta) duloxetine 60 mg capsule,delayed 60 mg PO QAM 04/16/21 04/16/21 History release (Cymbalta) polysaccharide iron complex 150 mg 150 mg PO QAM 04/16/21 04/16/21 History iron capsule (Ferrex) Past Med/Surg History Medical History Anemia Asthma Atrial fibrillation CAD (coronary artery disease) Cerebrovascular disease Chronic diastolic congestive heart failure Chronic kidney disease (CKD) Stage III, baseline Cr 1.3-1.5mg/dL. Complicated with normocytic anemia and secondary hyperparathyroidism. Followed by nephrology. 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 Cannot perform MRI due to bladder implant. Followed by pain management. Epidural steroid injections with improvement of pain. Evaluated by ortho, decided against surgery. Managed with gabapentin 300mg TID + APAP PRN + tapentadol 50mg BID PRN GERD (gastroesophageal reflux disease) GIB (gastrointestinal bleeding) History of gout Managed with allopruinol daily. No recent gouty attacks. Uric acid suppressed 3.4 mg/dl (12/22) Hyperlipidemia Secondary prevention with moderate intensity statin (atorvastatin 20mg daily) Hypertension Hypothyroidism Lichen planus Macular degeneration Mitral regurgitation Neurologic gait dysfunction Obstructive sleep apnea Long standing. Managed with CPAP nightly. CPAP titration polysomnography (07/14). Sensorineural hearing loss (SNHL) of both ears Venous insufficiency of both lower extremities Surgical History H/O colonoscopy History of repair of rectocele S/P breast biopsy S/P section S/P cholecystectomy S/P hysterectomy S/P implantation of urinary electronic stimulator device Family History Father , Age 64 No problems noted. Mother , Age 61 No problems noted. Other Coronary heart disease Denies family history of Ovarian cancer Prostate cancer Crohn's disease Breast cancer Lung cancer Colorectal cancer Social History Smoking Status: Never smoker Second Hand Exposure: No; Hx Alcohol Use: No Hx Substance Use: No Preferred Language: Thai Communication Ability: Effective Visual Impairment: No Limitations Hearing Ability: Normal Strawhat Blocking Operator Required: No Beliefs That Will Affect Care: None marital status: / Current Living Situation: Significant Other Current Living Situation Comment: lives with Calderon mondragon partner current occupational status: retired Feels Safe at Home: Yes Childhood Exposure to Second-Hand Smoke: No Dental Care, Regularly: Yes Physical Activity Frequency: 1-2 Times per Week Physical Activity Frequency Comment: physical therapy Seatbelt Use: always Sunscreen Use: Yes Assistive Devices: None Review of Systems Constitutional: no fever and no chills Eyes: no diplopia Ear, Nose, Mouth, Throat: no ear pain Respiratory: no cough and no dyspnea Cardiovascular: + chest pain Gastrointestinal: no abdominal pain Genitourinary: no dysuria Musculoskeletal: + back pain Integumentary: no rash Neurologic: no localized weakness Physical Exam Constitutional: well developed and well nourished; no acute distress Eyes: Wears glasses ENMT: Ears: no hearing impairment Neck: trachea midline Respiratory: normal respiratory effort, lungs clear to auscultation Cardiovascular: Rate/Rhythm: + irregularly irregular Vessels: dorsalis pedis pulses present and radial pulses present Gastrointestinal (Abdomen): Soft, nontender, nondistended Musculoskeletal: No calf tenderness Skin: no rashes Neurologic: moves all extremities Psychiatric: A+Ox3, euthymic affect Results & Data Results & Data ([facility]) Vital Signs (Past 12 Hours) Vital Signs Temp Pulse Resp BP Pulse Ox 04/16/21 10:30 75 19 114/62 99 04/16/21 10:00 75 21 131/69 96 04/16/21 09:30 80 21 126/71 95 04/16/21 09:05 36.8 C 77 19 122/64 97 Supervising Physician Co-Signing Physician Notes Patient was seen and examined independently I discussed the case with Damian Cast PAC I reviewed pertinent past medical social family history and also the plan of care and agree with the plan of care. Patient has been fairly unremitting mid scapular back pain mostly around C7. Patient has risk factors of osteoporosis but also has history of lumbar spinal stenosis. Initial biomarkers and EKG unremarkable for acute coronary syndrome. Patient will have serial biomarkers checked we will continue antiplatelet and anticoagulation. Pain control with parenteral opioids and once pain is controlled we will eventually evaluate her cervical and thoracic spine for compression fractures. Examination finds her to be laying on her right side she is writhing in some pain her cardiac exam is regular there is no reproducible anterior chest wall pain. There is reproducible C7-T1 area pain. Her lungs are clear. Patient will have typical rule out however we will pay some attention to her musculoskeletal pain complex Any exceptions will be noted below PG Care Time/CCT Total # of Minutes Spent Total Time Spent with Patient: Total time spent is greater than 50% in coordination of care (as documented) at patient's floor/unit and/or counseling patient: Coding Level of Care Code INT OBSERVATION CARE 70M LVL 3 Diagnoses Chest pain R07.9
[2021-04-16 11:33] LABS: Potassium 3.3 mmol/L (3.5-5.1)
--- NOTE | 2021-04-16 12:43 | Electrocardiogram Report ---
Test Reason : Blood Pressure : / mmHG Vent. Rate : 077 BPM Atrial Rate : 394 BPM P-R Int : 000 ms QRS Dur : 070 ms QT Int : 390 ms P-R-T Axes : 000 -31 -36 degrees QTc Int : 441 ms Poor data quality, interpretation may be adversely affected Atrial fibrillation Left axis deviation Poor R wave progression, consider anterior MN vs. lead placement vs. LVH Diffuse Nonspecific T wave abnormality Abnormal ECG When compared with ECG of 01-FEB-2021 16:09, No significant change Confirmed by Almas Reyes ([id number]) on 04/16/2021 12:42:35 PM Referred By: ED Confirmed By:Almas Reyes
[2021-04-16] MEDS ORDERED: ACETAMINOPHEN 500 MG TAB ONE (12:52)
[2021-04-16] MEDS ORDERED: POLYETHYLENE (MIRALAX) 17 GM PACK PO PRN (15:22)
[2021-04-16] MEDS ORDERED: FLUTICASONE PROPIONATE NA SPR 16 GM BTL PRN (15:22)
[2021-04-16] MEDS: ACETAMINOPHEN 500 MG TAB PO SCH ×2 (15:42→20:15)
[2021-04-16] MEDS: ONDANSETRON INJ 2 MG/ML 2 ML VIAL IV PRN (15:43)
[2021-04-16] MEDS: HYDROmorphone INJ 0.5 MG/0.5 ML SYR IV PRN ×2 (16:05→20:08)
[2021-04-16] MEDS: CLOBETASOL- ORDER AWAITING ACTION SCH (16:08)
[2021-04-16] MEDS: LIDOCAINE 5% 1 PATCH TD SCH (16:12)
--- NOTE | 2021-04-16 18:56 | XRay Report ---
XR thoracic spine 3V routine CLINICAL HISTORY: eval for compression fractures high t spine TECHNIQUE: 3 views of the thoracic spine were obtained. Comparison: None available at the time of this dictation. FINDINGS: No fractures or subluxations are identified, although evaluation of the upper thoracic spine is limit ed by overlying ribs. Vertebral body heights and disc spaces are well maintained. Alignment appears u nremarkable. Prevertebral soft tissues are within normal limits. IMPRESSION: No compression fractures are seen. Evaluation of the superiormost thoracic vertebral bodies is limite d due to overlying ribs. ACT 112: Negative or not required by law. Electronically signed by: Jhoan Cox M.D. 04/16/2021 6:55 PM
[2021-04-16] MEDS: APIXABAN 2.5 MG TAB PO SCH (20:15)
[2021-04-16] MEDS: METOPROLOL SUCC 50MG EXT REL TAB PO SCH (20:17)
[2021-04-16] MEDS: POTASSIUM CHLORIDE 10 MEQ TABCR PO SCH (20:17)
[2021-04-16] MEDS: MAGNESIUM OXIDE 400 MG TAB PO SCH (20:17)
[2021-04-16] MEDS: INSULIN GLARGINE SOLOSTAR 100 UNITS/ML 3 ML PEN SQ SCH (20:28)
[2021-04-16] MEDS ORDERED: POTASSIUM CHLORIDE CRTAB 20 MEQ TABCR PO SCH (21:00)
[2021-04-16] MEDS ORDERED: ACETAMINOPHEN 500 MG TAB PO SCH (21:00)
[2021-04-16] MEDS: BUMETANIDE 1 MG TAB PO SCH (21:41)
[2021-04-17] MEDS: CLOBETASOL- ORDER AWAITING ACTION SCH ×3 (00:05→15:48)
[2021-04-17] MEDS: LEVOTHYROXINE SODIUM 50 MCG TABLET PO SCH (05:33)
[2021-04-17] MEDS: HYDROmorphone INJ 0.5 MG/0.5 ML SYR IV PRN (05:33)
[2021-04-17] MEDS: ACETAMINOPHEN 500 MG TAB PO SCH ×3 (08:00→21:03)
[2021-04-17] MEDS: IRON POLYSACCHARIDE COMPLEX 150 MG CAPSULE PO SCH (08:00)
[2021-04-17] MEDS: MULTIVITAMIN TAB PO SCH (08:00)
[2021-04-17] MEDS: CHOLECALCIFEROL 1,000 UNITS 25 MCG TAB PO SCH (08:00)
[2021-04-17] MEDS: DULoxetine HCL 60 MG CAP PO SCH (08:01)
[2021-04-17] MEDS: CLOPIDOGREL BISULFATE 75 MG TAB PO SCH (08:01)
[2021-04-17] MEDS: LIDOCAINE 5% 1 PATCH TD SCH (08:01)
[2021-04-17] MEDS: PANTOprazole 40 MG TAB PO SCH (08:01)
[2021-04-17] MEDS: BUMETANIDE 1 MG TAB PO SCH (08:01)
[2021-04-17] MEDS: APIXABAN 2.5 MG TAB PO SCH ×2 (08:02→21:03)
[2021-04-17] MEDS: allopurinoL 100 MG TAB PO SCH (08:02)
[2021-04-17] MEDS: DULoxetine HCL 30 MG CAP PO SCH (08:02)
[2021-04-17] MEDS: METOPROLOL SUCC 50MG EXT REL TAB PO SCH ×2 (08:02→21:03)
[2021-04-17] MEDS: POTASSIUM CHLORIDE 10 MEQ TABCR PO SCH (08:02)
[2021-04-17] MEDS: ISOSORBIDE MONO EXTENDED REL 30 MG TABCR PO SCH (08:02)
[2021-04-17] MEDS: MAGNESIUM OXIDE 400 MG TAB PO SCH ×2 (08:02→21:04)
--- NOTE | 2021-04-17 08:30 | Electrocardiogram Report ---
Test Reason : Blood Pressure : / mmHG Vent. Rate : 092 BPM Atrial Rate : 375 BPM P-R Int : 000 ms QRS Dur : 068 ms QT Int : 372 ms P-R-T Axes : 000 -16 217 degrees QTc Int : 460 ms Poor data quality, interpretation may be adversely affected Artifact Atrial fibrillation Low voltage QRS Poor R wave progression, consider anterior NM vs. lead placement vs. LVH Abnormal ECG When compared with ECG of 16-APR-2021 09:08, No significant change Confirmed by Almas Reyes ([id number]) on 04/17/2021 8:29:27 AM Referred By: REFERRED SELF Confirmed By:Almas Reyes
[2021-04-17] MEDS ORDERED: CARBOHYDRATES FOR HYPOGLYCEMIA PO PRN (08:51)
[2021-04-17] MEDS ORDERED: GLUCOSE 40% GEL 15 GM TUBE PO PRN (08:51)
[2021-04-17] MEDS ORDERED: GLUCAGON FOR INJ 1 MG VIAL SQ PRN (08:51)
[2021-04-17] MEDS ORDERED: GLUCOSE 10 TABS/TUBE PO PRN (08:51)
[2021-04-17] MEDS ORDERED: DEXTROSE 50% 50 ML SYRINGE IV PRN (08:51)
[2021-04-17] MEDS ORDERED: MIRTAZAPINE TAB 15 MG TAB PO SCH (09:00)
[2021-04-17 09:27] LABS: Basophils # (auto) 0.02 K/uL (0-0.2); Basophils % (auto) 0.2 %; Eosinophils # (auto) 0.07 K/uL (0-0.5); Eosinophils % (auto) 0.5 %; Hematocrit (blood only) 32.9 % (37-47); Hemoglobin 10.4 g/dL (12.0-16.0); Immature Granulocytes # (auto) 0.04 K/uL (0.00-0.02); Immature Granulocytes % (auto) 0.3 %; Lymphocytes # (auto) 0.87 K/uL (1.2-3.4); Lymphocytes % (auto) 6.8 %; Mean Corpuscular Hemoglobin 34.1 pg (25-34); Mean Corpuscular Hgb Conc 31.6 g/dL (32-36); Mean Corpuscular Volume 107.9 fL (80-100); Mean Platelet Volume 12.5 fL (7.4-10.4); Monocytes # (auto) 0.38 K/uL (0.11-0.59); Neutrophils # (auto) 11.39 K/uL (1.4-6.5); Neutrophils % (auto) 89.2 %; Platelet Count 215 K/uL (130-400); RDW Coefficient of Variation 17.8 % (11.5-14.5); RDW Standard Deviation 70.6 fL (36.4-46.3); Red Blood Count 3.05 M/uL (4.2-5.4); White Blood Count 12.77 K/uL (4.8-10.8)
[2021-04-17 09:59] LABS: Troponin I 0.03 ng/ml (0-0.04)
[2021-04-17 10:07] LABS: Albumin Globulin Ratio 1.2 (0.9-2); Albumin Level 3.6 gm/dl (3.4-5.0); BUN Creatinine Ratio 26.7 (10-20); Bilirubin,Total 2.9 mg/dl (0.2-1.0); Creatinine Clr Calc Pharmacy 22.4 ml/min; Est GFR (African American) 33.7 ml/min; Est GFR (Non-African American) 29.1 ml/min; Globulin 2.9 gm/dl (2.5-4.0); Potassium 4.2 mmol/L (3.5-5.1); Total Protein 6.5 gm/dl (6.0-8.3)
[2021-04-17 10:08] LABS: Magnesium 2.1 mg/dl (1.7-2.4)
[2021-04-17 10:40] LABS: Folate (Folic Acid) 15.3 ng/ml (>5.38)
[2021-04-17] MEDS: INSULIN ASPART PER UNIT SC SCH ×3 (11:41→21:30)
[2021-04-17] MEDS ORDERED: SODIUM CHLORIDE 0.9% 1000ML 250 ML IV ONE (12:26)
--- NOTE | 2021-04-17 12:43 | Cardiology Consultation ---
Date of Consultation April 17, 2021 Assessment & Plan (1) Musculoskeletal chest pain: (2) Trapezius muscle spasm: (3) CAD (coronary artery disease): (4) Hypertension: Patient with significant thoracic musculoskeletal pain. Given unremarkable ECG and negative serial troponins as well as the highly reproducible nature and unchanging severity of her discomfort overnight, her primary discomfort does not seem to represent angina/myocardial ischemia. Given her known coronary artery disease, she could in fact develop some degree of angina secondary to the increased adrenergic state/discomfort of her musculoskeletal pain, but at this point there does not seem to be an anginal component to her pain. Recommend analgesics and local measures (heating pad to trapezius etc.) for her thoracic discomfort. Had considered stress study, but given the clearly noncardiac nature of her presenting symptoms the results would not likely be illuminating, since she well may have an abnormal stress test due to underlying coronary disease which is not currently symptomatic. In particular, she walks with a walker and could not do a treadmill test, a dobutamine stress echocardiogram would be likely to elicit a supraphysiologic hemodynamic response which is unrepresentative of her day-to-day physiology. Almost she has more characteristic symptoms, ECG changes, or future enzyme elevations, would not pursue further cardiac work-up at this time. Will convey this information to her primary leak detection engineer, Dr. Rafael Roland, further evaluation as outpatient could then be pursued as necessary. History of Present Illness Reason for Consultation: CP, known CAD Requesting Physician: Roz Spicer MD Attending Physician: Roz Spicer MD History of Present Illness 86-year-old woman with history of CAD (URBANO LAD 2018, URBANO LAD for restenosis 2018), chronic diastolic CHF, permanent atrial fibrillation, hypertension, and mild mitral regurgitation who was admitted yesterday with chest discomfort. Serial ECG showed no ischemic or dynamic changes, peak high-sensitivity troponin level of 0.03 was below the new threshold of 0.04, and on examination she has chest wall and trapezius tenderness with chest fairly pronounced. She is still noting moderate chest/trapezius discomfort, this has been unchanged overnight. She denies any dyspnea, diaphoresis, nausea, palpitations, presyncope, or syncope. Telemetry monitoring showed atrial fibrillation with ventricular rate 90-100 bpm. Allergies Allergy/AdvReac Type Severity Reaction Status Date / Time shellfish derived Allergy Severe ANAPHYLAXIS Verified 04/16/21 10:28 iodine Allergy Intermediate ANAPHYLAXIS Verified 04/16/21 10:28 lisinopril Allergy Unknown Unknown Verified 04/16/21 10:28 oxybutynin [From Ditropan] Allergy Unknown Unknown Verified 04/16/21 10:28 sertraline [From Zoloft] Allergy Unknown Unknown Verified 04/16/21 10:28 paroxetine AdvReac Mild GI UPSET Verified 04/16/21 10:28 Home Medications Medication Instructions Recorded Confirmed Type albuterol sulfate 90 mcg/actuation 1 - 2 puffs INH Q4H PRN #6.7 gm 04/26/19 04/16/21 Rx aerosol inhaler (ProAir HFA) cholecalciferol (vitamin D3) 25 2,000 unit PO QAM tab 05/11/20 04/16/21 History mcg (1,000 unit) tablet (Vitamin D3) allopurinol 100 mg tablet 300 mg PO QAM 11/07/20 04/16/21 History (Zyloprim) clopidogrel 75 mg tablet (Plavix) 75 mg PO QAM 11/07/20 04/16/21 History fluticasone propionate 50 1 spray INTRANASAL BID PRN 11/07/20 04/16/21 History mcg/actuation nasal spray,suspension (Flonase Allergy Relief) insulin aspart U-100 100 unit/mL 7 - 10 unit SUBCUT TIDM #45 ml 12/17/20 04/16/21 Rx (3 mL) subcutaneous pen (Novolog Flexpen U-100 Insulin aspart) insulin glargine 100 unit/mL (3 20 unit SUBCUT HS #15 ml 12/17/20 04/16/21 Rx mL) subcutaneous pen (Lantus Solostar U-100 Insulin) levothyroxine 50 mcg tablet 50 mcg PO DAILYBB #30 tab 12/19/20 04/16/21 Rx (Synthroid) pantoprazole 40 mg tablet,delayed 40 mg PO QAM #90 tab 12/19/20 04/16/21 Rx release (Protonix) multivitamin-ferrous 1 tab PO QAM #30 tab 01/10/21 04/16/21 Rx fumarate-folic acid 18 mg-400 mcg tablet (Certavite-Antioxidant) mirtazapine 15 mg tablet (Remeron) 15 mg PO QAM #30 tab 01/14/21 04/16/21 Rx magnesium oxide 400 mg PO BID #90 tab 01/21/21 04/16/21 Rx clobetasol 0.05 % topical cream 1 applic TOPICAL BID 01/28/21 04/16/21 History polyethylene glycol 3350 17 8.5 g PO DAILY PRN 01/28/21 04/16/21 History gram/dose oral powder (Miralax) vit C-vit C-ylsvxz-iqjl ox-lutein 1 cap PO BID 02/01/21 04/16/21 History 226 mg-200 unit-5 mg-0.8 mg capsule (PreserVision Lutein) bumetanide 2 mg tablet 2 mg PO BID #60 tab 02/04/21 04/16/21 Rx metoprolol succinate 50 mg 150 mg PO BID #540 tab 02/25/21 04/16/21 Rx tablet,extended release 24 hr (Toprol XL) potassium chloride 20 mEq 10 meq PO BID #180 tab 02/25/21 04/16/21 Rx tablet,extended release (K-Tab) digoxin 125 mcg (0.125 mg) tablet 125 mcg PO Q2D@1600 #15 tab 04/10/21 04/16/21 Rx (Digitek) isosorbide mononitrate 30 mg 30 mg PO QAM #90 tab 04/12/21 04/16/21 Rx tablet,extended release 24 hr acetaminophen 500 mg tablet 1,000 mg PO HS tab 04/15/21 04/16/21 History apixaban 2.5 mg tablet (Eliquis) 2.5 mg PO BID #180 tab 04/15/21 04/16/21 Rx duloxetine 30 mg capsule,delayed 30 mg PO QAM 04/16/21 04/16/21 History release (Cymbalta) duloxetine 60 mg capsule,delayed 60 mg PO QAM 04/16/21 04/16/21 History release (Cymbalta) polysaccharide iron complex 150 mg 150 mg PO QAM 04/16/21 04/16/21 History iron capsule (Ferrex) Patient History Medical History Anemia Asthma Atrial fibrillation CAD (coronary artery disease) Cerebrovascular disease Chronic diastolic congestive heart failure Chronic kidney disease (CKD) Stage III, baseline Cr 1.3-1.5mg/dL. Complicated with normocytic anemia and secondary hyperparathyroidism. Followed by nephrology. 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 Cannot perform MRI due to bladder implant. Followed by pain management. Epidural steroid injections with improvement of pain. Evaluated by ortho, decided against surgery. Managed with gabapentin 300mg TID + APAP PRN + tapentadol 50mg BID PRN GERD (gastroesophageal reflux disease) GIB (gastrointestinal bleeding) History of gout Managed with allopruinol daily. No recent gouty attacks. Uric acid suppressed 3.4 mg/dl (12/22) Hyperlipidemia Secondary prevention with moderate intensity statin (atorvastatin 20mg daily) Hypertension Hypothyroidism Lichen planus Macular degeneration Mitral regurgitation Neurologic gait dysfunction Obstructive sleep apnea Long standing. Managed with CPAP nightly. CPAP titration polysomnography (07/14). Sensorineural hearing loss (SNHL) of both ears Venous insufficiency of both lower extremities Surgical History H/O colonoscopy History of repair of rectocele S/P breast biopsy S/P section S/P cholecystectomy S/P hysterectomy S/P implantation of urinary electronic stimulator device Family History Father , Age 64 No problems noted. Mother , Age 61 No problems noted. Other Coronary heart disease Denies family history of Ovarian cancer Prostate cancer Crohn's disease Breast cancer Lung cancer Colorectal cancer Social History Smoking Status: Never smoker Second Hand Exposure: No; Hx Alcohol Use: No Hx Substance Use: No Preferred Language: Libyan Communication Ability: Effective Visual Impairment: No Limitations Hearing Ability: Normal Crew Scheduler Required: No Beliefs That Will Affect Care: None marital status: [employer] Current Living Situation: Significant Other Current Living Situation Comment: lives with Calderon Cordoba life partner current occupational status: retired How many Children do You have: 3 Feels Safe at Home: Yes Safety Concerns: Feels Safe At This Time Childhood Exposure to Second-Hand Smoke: No Dental Care, Regularly: Yes Physical Activity Frequency: 1-2 Times per Week Physical Activity Frequency Comment: physical therapy Seatbelt Use: always Sunscreen Use: Yes Assistive Devices: Cane and Walker Physical Exam Physical Exam: Normal habitus elderly white female who appears reasonably comfortable, currently eating lunch. Afebrile. Normotensive. Pulse 86 bpm and irregular. Skin: no ecchymoses or generalized lesions. HEENT: unremarkable. Neck: no JVD or carotid bruits. Lungs: Mildly decreased breath sounds but generally clear. Thorax: Significant anterior chest wall tenderness, even more marked bilateral trapezius tenderness (palpation caused her to jump). Cardiac: irregular rhythm, no obvious murmur or gallop. Abdomen: benign. Extremities: Trace pretibial edema, pulses intact. Neurologic: normal affect, nonfocal. Results & Data ([facility]) Vital Signs (Past 12 Hours) Vital Signs Temp Pulse Pulse Resp BP Pulse Ox 04/17/21 11:30 98.6 F 87 18 138/88 98 04/17/21 08:47 100 H 04/17/21 07:51 98.1 F 72 18 144/63 H 96 04/17/21 03:04 98.2 F 84 17 136/81 92 Laboratory Results Serial troponin levels were 0.03, less than 0.03, and 0.03. Hemoglobin 10.4. Sodium 133, chloride 89, potassium 4.2, BUN 43, creatinine 1.61. Diagnostic Findings Initial ECG showed atrial fibrillation with ventricular rate of 77 bpm, poor R wave progression and diffuse nonspecific T wave flattening. Unchanged compared with 02/01/2021 ECG. ECG this morning had significant overlying artifact but again showed atrial fibrillation with ventricular rate of 92 bpm and was unchanged. Chest x-ray showed decreased inspiratory effort, otherwise unremarkable. Chest spine film showed no compression fractures. PG Care Time/CCT Total # of Minutes Spent Total Time Spent with Patient: Total time spent is greater than 50% in coordination of care (as documented) at patient's floor/unit and/or counseling patient: Coding Level of Care Code 57479 Inpt Consult Level 4 Diagnoses Musculoskeletal chest pain R07.89 Trapezius muscle spasm M62.838 CAD (coronary artery disease) I25.10 Hypertension I10
[2021-04-17] MEDS ORDERED: CYANOCOBALAMIN 1000 MCG/ML VIAL IM ONE (14:15)
--- NOTE | 2021-04-17 14:23 | Hospitalist Progress Note ---
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: (11) Depression with anxiety: Plan: continue mirtazapine and duloxetine (12) Atrial fibrillation: Plan: rate controlled continue apixaban, Toprol (13) Obstructive sleep apnea: (14) Anemia: Plan: chronic, macrocytic, improved from previous at 10 B12 low in 2001--> give IM B12 daily today and tomorrow, then f/u outpt folate normal (15) Chronic kidney disease (CKD): 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 1.4 gave 250mL NS and follow bMP tomorrow hold Bumex (16) Hypothyroidism: Plan: continue LT4 TSH normal 12/2020 (17) COPD (chronic obstructive pulmonary disease): Plan: stable (18) GERD (gastroesophageal reflux disease): Plan: continue PPI (19) CAD (coronary artery disease): Plan: h/o LAD stents no ACS continue home meds seen by Cardiology (20) Diabetes mellitus, type II: Plan: continue insulin A1C 5.8% (21) Hypertension: Plan: controlled continue home meds (22) Chronic diastolic congestive heart failure: Plan: hold bumex as above Plan: Dispo-continued stay for pain control Admission and Anticipated Discharge Date Admission Date: April 16, 2021 Subjective Pt was being turned for cleaning in bed after urinating and was screaming out in pain with any movement. Reports severe pain in through her upper back, shoulders, and anterior chest. SHe is quite anxious. Reports she has been cleaning her whole house daily for weeks and almost has it completed. She woke up yesterday and in walking to the bathroom had sudden onset of severe, cramping pain through her entire torso.She reports pain with any touch on exam. She really thought the IV dilaudid helped her. Discussed her care with Cardiology who agrees that this is not cardiac related. Pain has been constant for over 24 hours and cardiac markers negative. Tele with rate controlled Afib Review of Systems Review of Systems: All systems reviewed & are unremarkable except as noted in HPI & below Physical Exam Constitutional: WD/WN, vitals as above Eyes: PERRL, conjunctivae normal, anicteric sclerae ENMT: external ear and nose normal, oropharynx normal Neck: trachea midline, no thyromegaly Respiratory: normal respiratory effort, lungs clear to auscultation Cardiovascular: RRR, no murmur, no edema Chest (Breasts): Chest: normal inspection of chest Gastrointestinal (Abdomen): normal bowel sounds, soft, nontender, no hepatosplenomegaly Musculoskeletal: Extremities: extremities normal to inspection; no cyanosis and no clubbing +significant TTP with any touch on body including especially trapezius and shoulders, anterior chest wall bilat Skin: no rashes, warm and dry Neurologic: moves all extremities and awake; no focal motor deficits Psychiatric: Orientation: alert and oriented x 3 Affect: + anxious affect and + tearful affect Lymphatic: no lymphedema Results & Data Results & Data ([facility]) Vital Signs (Past 12 Hours) Vital Signs Temp Pulse Pulse Resp BP Pulse Ox 04/17/21 11:30 37.0 C 87 18 138/88 98 04/17/21 08:47 100 H 04/17/21 07:51 36.7 C 72 18 144/63 H 96 04/17/21 03:04 36.8 C 84 17 136/81 92 Laboratory Results reviewed PG Care Time/CCT Total # of Minutes Spent Total Time Spent with Patient: Total time spent is greater than 50% in coordination of care (as documented) at patient's floor/unit and/or counseling patient: Coding Level of Care Code 37310 Subseq Hosp Care Lvl 3 Diagnoses Chest pain R07.9 Trapezius muscle spasm M62.838 Musculoskeletal chest pain R07.89 Mild cognitive impairment G31.84 Severe pulmonary hypertension I27.20 Mitral regurgitation I34.0 Hyperlipidemia E78.5 History of gout Z87.39 Diabetic peripheral neuropathy E11.42 Diabetes mellitus with renal complications E11.29 Depression with anxiety F41.8 Atrial fibrillation I48.91 Atrial fibrillation type: unspecified Obstructive sleep apnea G47.33 Anemia D64.9 Anemia type: unspecified type Chronic kidney disease (CKD) N18.9 Hypothyroidism E03.9 Hypothyroidism type: unspecified COPD (chronic obstructive pulmonary disease) J44.9 GERD (gastroesophageal reflux disease) K21.9 Esophagitis presence: esophagitis presence not specified CAD (coronary artery disease) I25.10 Diabetes mellitus, type II E11.9 Hypertension I10 Chronic diastolic congestive heart failure I50.32 (1) Anemia Anemia type: unspecified type Qualified Code(s): D64.9 - Anemia, unspecified (2) Atrial fibrillation Atrial fibrillation type: unspecified Qualified Code(s): I48.91 - Unspecified atrial fibrillation (3) Hypothyroidism Hypothyroidism type: unspecified Qualified Code(s): E03.9 - Hypothyroidism, unspecified (4) GERD (gastroesophageal reflux disease) Esophagitis presence: esophagitis presence not specified Qualified Code(s): K21.9 - Gastro-esophageal reflux disease without esophagitis
[2021-04-17] MEDS ORDERED: CYCLOBENZAPRINE HCL 5 MG TAB PO PRN (14:30)
[2021-04-17] MEDS: DICLOFENAC SOD 1% GEL 100 GM TUBE EXT SCH ×3 (14:45→21:05)
[2021-04-17] MEDS ORDERED: DIGOXIN 0.125 MG TAB PO SCH (16:00)
[2021-04-17] MEDS: NITROGLYCERIN SL 0.4 MG/TAB TAB SL PRN ×2 (20:13→20:20)
[2021-04-17] MEDS ORDERED: MoRPHine SULFATE 2 MG/ML CARP IV PRN (20:31)
[2021-04-17] MEDS ORDERED: MoRPHine SULFATE 2 MG/ML CARP ONE (20:36)
[2021-04-17] MEDS: INSULIN GLARGINE SOLOSTAR 100 UNITS/ML 3 ML PEN SQ SCH (21:30)
[2021-04-18] MEDS: CLOBETASOL- ORDER AWAITING ACTION SCH ×2 (01:41→09:40)
[2021-04-18] MEDS ORDERED: oxyCODONE HCL IR 5 MG TAB (IMMEDIATE RELEASE) PO STA (02:07)
[2021-04-18] MEDS: ONDANSETRON INJ 2 MG/ML 2 ML VIAL IV PRN (02:32)
[2021-04-18 05:35] LABS: Estimated Average Glucose 120 mg/dl; Hemoglobin A1C 5.8 % (4.5-5.6)
[2021-04-18] MEDS: LEVOTHYROXINE SODIUM 50 MCG TABLET PO SCH (05:50)
[2021-04-18] MEDS: PANTOprazole 40 MG TAB PO SCH (08:50)
[2021-04-18] MEDS: CLOPIDOGREL BISULFATE 75 MG TAB PO SCH (08:50)
[2021-04-18] MEDS: CHOLECALCIFEROL 1,000 UNITS 25 MCG TAB PO SCH (08:50)
[2021-04-18] MEDS: MAGNESIUM OXIDE 400 MG TAB PO SCH (08:50)
[2021-04-18] MEDS: DULoxetine HCL 60 MG CAP PO SCH (08:51)
[2021-04-18] MEDS: MULTIVITAMIN TAB PO SCH (08:51)
[2021-04-18] MEDS: allopurinoL 100 MG TAB PO SCH (08:51)
[2021-04-18] MEDS: DULoxetine HCL 30 MG CAP PO SCH (08:51)
[2021-04-18] MEDS: ISOSORBIDE MONO EXTENDED REL 30 MG TABCR PO SCH (08:51)
[2021-04-18] MEDS: IRON POLYSACCHARIDE COMPLEX 150 MG CAPSULE PO SCH (08:51)
[2021-04-18] MEDS: ACETAMINOPHEN 500 MG TAB PO SCH (08:52)
[2021-04-18] MEDS: APIXABAN 2.5 MG TAB PO SCH (08:52)
[2021-04-18] MEDS: DICLOFENAC SOD 1% GEL 100 GM TUBE EXT SCH ×2 (08:52→12:35)
[2021-04-18] MEDS: LIDOCAINE 5% 1 PATCH TD SCH (08:54)
[2021-04-18] MEDS: INSULIN ASPART PER UNIT SC SCH ×2 (08:57→12:31)
[2021-04-18] MEDS: METOPROLOL SUCC 50MG EXT REL TAB PO SCH (10:03)
[2021-04-18] MEDS ORDERED: CYANOCOBALAMIN 1000 MCG/ML VIAL IM ONE (10:30)
[2021-04-18 11:29] LABS: BUN Creatinine Ratio 24.4 (10-20); Calcium 8.8 mg/dl (8.5-10.1); Creatinine Clr Calc Pharmacy 21.9 ml/min; Est GFR (African American) 32.9 ml/min; Est GFR (Non-African American) 28.4 ml/min; Potassium 3.5 mmol/L (3.5-5.1)
[2021-04-18] MEDS ORDERED: POTASSIUM CHLORIDE CRTAB 20 MEQ TABCR PO STA (11:40)
--- NOTE | 2021-04-18 14:19 | Electrocardiogram Report ---
Test Reason : Blood Pressure : / mmHG Vent. Rate : 089 BPM Atrial Rate : 277 BPM P-R Int : 000 ms QRS Dur : 086 ms QT Int : 384 ms P-R-T Axes : 000 -09 -35 degrees QTc Int : 467 ms Atrial fibrillation Poor R wave progression, consider anterior ID vs. lead placement vs. LVH Diffuse Nonspecific T wave abnormality Abnormal ECG When compared with ECG of 17-APR-2021 05:25, No significant change Confirmed by Almas Reyes ([id number]) on 04/18/2021 2:19:23 PM Referred By: REFERRED SELF Confirmed By:Almas Reyes
--- NOTE | 2021-04-18 14:28 | Electrocardiogram Report ---
Test Reason : Blood Pressure : / mmHG Vent. Rate : 089 BPM Atrial Rate : 110 BPM P-R Int : 000 ms QRS Dur : 084 ms QT Int : 352 ms P-R-T Axes : 000 -15 -24 degrees QTc Int : 428 ms Atrial fibrillation Low voltage QRS Poor R wave progression, consider anterior DE vs. lead placement vs. LVH Diffuse Nonspecific T wave abnormality Abnormal ECG When compared with ECG of 17-APR-2021 20:15, No significant change was found Confirmed by Almas Reyes ([id number]) on 04/18/2021 2:28:25 PM Referred By: REFERRED SELF Confirmed By:Almas Reyes
--- NOTE | 2021-04-18 14:28 | Discharge Summary ---
Date of Service April 18, 2021 Admission HPI Per Admitting Provider This is an 86-year-old woman with a known history of cardiovascular disease. Patient says that she has had a cardiac catheterization in 2018 while she was in [place]. At this time she had a drug-eluting stent placed to her left anterior sending artery. She has since returned to the [facility] and in 2018 she was noted to have in-stent stenosis of the previously mentioned stent and she underwent an additional drug-eluting stent in December 2018. Patient notes that at the time of her second stent she did suffer a myocardial infarction. The patient presented the emergency department today at [facility] secondary to chest pain that was in her shoulders and back with no radiation to her arms. She said the pain began shortly after using the restroom this morning and felt similar to what she experienced when she had a prior myocardial infarction. Patient denied any shortness of breath but did have some nausea without vomiting. Upon arrival to the emergency department she said the only thing that relieves her pain was the administration of some fentanyl. In the emergency department the patient had labs and diagnostics which independently reviewed. Chest x-ray showed no evidence of widening of the mediastinum, pneumonia, or congestive heart failure. Cardiac enzymes were checked and were not elevated. A COVID test was performed and was negative. CBC revealed her hemoglobin and hematocrit were 10.3 and 32.7. The values of her hemoglobin and hematocrit today demonstrate stability over the past 1 to 2 months. White blood cell count and platelet count were noted to be normal. Patient's BUN and creatinine were noted to be 44 and 1.4. Her sodium and potassium are both noted to be normal. An EKG showed rate controlled atrial fibrillation without any changes indicative of acute ischemia. Patient's outpatient records were reviewed and she has been seen by cardiology in March 2021 and again at the heart failure clinic earlier this month where patient was noted to be doing well from a cardiac standpoint. The patient does report that she takes Eliquis and Plavix and due to her chest pain this morning has not taken these medications this morning but has otherwise been compliant with these medications. At the time of my interview the patient was resting comfortably in bed and she was in no distress. Principal Diagnosis MSK Chest and upper back pain Discharge Exam Constitutional WD/WN, vitals as above Eyes + anicteric sclerae ENMT external ear and nose normal, oropharynx normal Neck trachea midline, no thyromegaly Respiratory normal respiratory effort, lungs clear to auscultation Cardiovascular RRR, no murmur, no edema Chest (Breasts) Chest: normal inspection of chest Gastrointestinal (Abdomen) normal bowel sounds, soft, nontender, no hepatosplenomegaly Musculoskeletal Extremities: extremities normal to inspection; no cyanosis and no clubbing +TTP over trapezius bilat, shoulders, anterior chest wall but not as much as previously Skin no rashes, warm and dry Neurologic moves all extremities and awake; no focal motor deficits Psychiatric Orientation: alert and oriented x 3 Affect: + anxious affect Lymphatic no lymphedema Discharge Data Allergies Allergy/AdvReac Type Severity Reaction Status Date / Time shellfish derived Allergy Severe ANAPHYLAXIS Verified 04/16/21 10:28 iodine Allergy Intermediate ANAPHYLAXIS Verified 04/16/21 10:28 lisinopril Allergy Unknown Unknown Verified 04/16/21 10:28 oxybutynin [From Ditropan] Allergy Unknown Unknown Verified 04/16/21 10:28 sertraline [From Zoloft] Allergy Unknown Unknown Verified 04/16/21 10:28 paroxetine AdvReac Mild GI UPSET Verified 04/16/21 10:28 Consultations 04/16/21 10:55 ED Decision to Admit Stat 04/16/21 15:22 Consult Cardiology Routine Hospital Course (1) Chest pain: Noncardiac, all clearly MSK pain troponin serially negative, no events on tele Pain somewhat improved now with Voltaren gel, lidocaine patch, and Flexeril prn- continue all upon discharge needs home PT/OT arranged (2) Trapezius muscle spasm: as above (3) Musculoskeletal chest pain: as above (4) Mild cognitive impairment: (5) Severe pulmonary hypertension: hold home bumex due to mild dehydration give 250mL x 1 of NS (6) Mitral regurgitation: moderate (7) Hyperlipidemia: (8) History of gout: continue allopurinol (9) Diabetic peripheral neuropathy: noted, continue duloxetine (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: (11) Depression with anxiety: continue mirtazapine and duloxetine (12) Atrial fibrillation: rate controlled continue apixaban, Toprol (13) Obstructive sleep apnea: (14) Anemia: chronic, macrocytic, improved from previous at 10 B12 low in 2001--> gave IM B12 daily x 2 days--> then f/u outpt for continued IM B12 injections once monthly as she has failed po B12 she takes regularly folate normal (15) Chronic kidney disease (CKD): 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 1.4 gave 250mL NS and held Bumex software 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 on day of dc stable at 1.6 ok to resume Bumex on discharge (16) Hypothyroidism: continue LT4 TSH normal 12/2020 (17) COPD (chronic obstructive pulmonary disease): stable (18) GERD (gastroesophageal reflux disease): continue PPI (19) CAD (coronary artery disease): h/o LAD stents no ACS continue home meds seen by Cardiology (20) Diabetes mellitus, type II: continue insulin A1C 5.8% (21) Hypertension: controlled continue home meds (22) Chronic diastolic congestive heart failure: euvolemic Dispo-dc to home I certify that this patient is under my care and that I, or a physicians professional nursing assistant working with me, had a face to-face encounter that meets the home health [id number] encounter requirements with this patient. The encounter with the patient was in whole, or in part, for the following medical condition, which is the primary reason for home health care (list medical condition): I certify that, based on my findings, the following services are medically necessary home health services: My clinical findings support the need for the above services because: Home Safety Assessment OT Assess ADL Status and Restore Function w ADLs PT Assessment for Endurance / Balance / Strength PT Eval for Safety and Mobility PT Eval for Safety, Gait Training, Assistive Devices PT Gait and Balance Training, Strengthening and Safety Safety Skilled Nsg Assessment Vital Signs Further, I certify that my clinical findings support that this patient is homebound (i.e. absences from home require considerable and taxing effort and are for medical reasons or voodoo services or infrequently or of short duration when for other reasons) because: Supportive Aid - Walker Supportive Aid - Wheelchair Certification for Home Health Services: Based on the above findings, I certify that this patient is confined to the home and needs intermittent residential care, physical therapy and/or speech therapy or continues to need occupational therapy. The patient is under my care, and I have initiated the establishment of the plan of care. This patient will be followed by a physician who will periodically review the plan of care. Total Time Total Time Spent Total Time Spent (In Minutes): 40 min Discharge Plan Discharge Items Patient Disposition: Home - Home Health Services Reason For Visit: CHEST PAIN Discharge Diagnosis: Musculoskeletal back and chest pain-muscle spasm Condition on Discharge: Fair Activity: As commented below Lifting: No more than 5 pounds Bathing: No limitations Exercise/Sports: Gradually increase as tolerated Exercise Comment: with home PT/OT Non-emergency contact: Primary Care Provider Call non-emergency contact if: you have any medication questions, your symptoms worsen and your pain is not controlled Follow-up/Referrals: Domi Wetzel, [Primary Care Provider] - (Follow up within 1-2 weeks.) Diet: Carb Consistent or DM2 and Heart Healthy Addtl Attending Provider Instructions: You were admitted with chest and back pain that is from muscle spasms from overuse. Please limit yourself from excessive activity for at least 2 weeks until your pain is resolved. You can take the Flexeril (cyclobenzaprine) as needed for muscle spasm, and use the lidocaine patch for pain. You will have physical and occupational therapy coming to the house to help you with some stretching exercises to help with your pain. You were seen by the Puncher here and had testing which showed that this pain is not coming from your heart. Follow up with Dr. Wetzel within 1-2 weeks. Pending Studies at Discharge: No Stand-Alone Forms: My [facility] Medications and DC Order Prescriptions: New cyclobenzaprine 5 mg Tablet 5 mg PO TID PRN (Reason: muscle spasm) Qty: 20 RF: 0 diclofenac sodium [Voltaren Arthritis Pain] 1 % Gel 2 g EXT QID Qty: 100 RF: 0 lidocaine 5 % Adhesive Patch,Medicated 1 patch transdermal QAM Qty: 15 RF: 0 Continued cholecalciferol (vitamin D3) [Vitamin D3] 25 mcg (1,000 unit) tablet 2,000 unit PO QAM RF: 0 Novolog Flexpen U-100 Insulin 100 unit/mL (3 mL) insulin pen 7 - 10 unit subcut TIDM Qty: 45 RF: 1 Lantus Solostar U-100 Insulin 100 unit/mL (3 mL) insulin pen 20 unit subcut HS Qty: 15 RF: 3 pantoprazole [Protonix] 40 mg tablet,delayed release (DR/EC) 40 mg PO QAM Qty: 90 RF: 1 levothyroxine [Synthroid] 50 mcg tablet 50 mcg PO DAILYBB Qty: 30 RF: 5 magnesium oxide 400 mg magnesium tablet 400 mg PO BID Qty: 90 RF: 1 bumetanide 2 mg tablet 2 mg PO BID Qty: 60 RF: 5 potassium chloride [K-Tab] 20 mEq tablet extended release 10 meq PO BID Qty: 180 RF: 1 metoprolol succinate [Toprol XL] 50 mg tablet extended release 24 hr 150 mg PO BID Qty: 540 RF: 3 isosorbide mononitrate 30 mg tablet extended release 24 hr 30 mg PO QAM Qty: 90 RF: 1 Eliquis 2.5 mg tablet 2.5 mg PO BID Qty: 180 RF: 1 allopurinol [Zyloprim] 100 mg tablet 300 mg PO QAM Qty: 90 RF: 1 clopidogrel [Plavix] 75 mg tablet 75 mg PO QAM Qty: 90 RF: 1 digoxin [Digitek] 125 mcg (0.125 mg) tablet 125 mcg PO Q2D@1600 Qty: 15 RF: 3 clobetasol 0.05 % cream 1 applic topical BID RF: 0 polyethylene glycol 3350 [Miralax] 17 gram/dose powder 8.5 g PO DAILY PRN (Reason: Constipation) RF: 0 albuterol sulfate [ProAir HFA] 90 mcg/actuation HFA aerosol inhaler 1 - 2 puffs INH Q4H PRN (Reason: shortness of breath or wheezing) Qty: 6.7 RF: 3 polysaccharide iron complex [Ferrex 150] 150 mg iron capsule 150 mg PO QAM RF: 0 duloxetine [Cymbalta] 30 mg capsule,delayed release(DR/EC) 30 mg PO QAM RF: 0 duloxetine [Cymbalta] 60 mg capsule,delayed release(DR/EC) 60 mg PO QAM RF: 0 fluticasone propionate [Flonase Allergy Relief] 50 mcg/actuation spray,suspension 1 spray intranasal BID PRN (Reason: allergy symptoms) RF: 0 Certavite-Antioxidant 18-400 mg-mcg Tablet 1 tab PO QAM Qty: 30 RF: 0 PreserVision Lutein 226 mg-200 unit -5 mg-0.8 mg Capsule 1 cap PO BID RF: 0 Changed acetaminophen 500 mg tablet 1,000 mg PO TID Qty: 0 RF: 0 mirtazapine [Remeron] 15 mg tablet 15 mg PO HS Qty: 30 RF: 5 Discharge Orders: Discharge Order (Routine); Ordered 04/18/21 Ordered By: Roz Spicer Admission Data Admit Date/Time: 04/16/21 11:29 Attending Provider: Roz Spicer Admit Provider: Sam Agosto Primary Care Provider: Domi Wetzel Other Providers: Sam Agosto ; Nate Roland [facility] Coding Level of Care Code 29978 OBS Care - Discharge Diagnoses Chest pain R07.9 Trapezius muscle spasm M62.838 Musculoskeletal chest pain R07.89 Mild cognitive impairment G31.84 Severe pulmonary hypertension I27.20 Mitral regurgitation I34.0 Hyperlipidemia E78.5 History of gout Z87.39 Diabetic peripheral neuropathy E11.42 Diabetes mellitus with renal complications E11.29 Depression with anxiety F41.8 Atrial fibrillation I48.91 Atrial fibrillation type: unspecified Obstructive sleep apnea G47.33 Anemia D64.9 Anemia type: unspecified type Chronic kidney disease (CKD) N18.9 Hypothyroidism E03.9 Hypothyroidism type: unspecified COPD (chronic obstructive pulmonary disease) J44.9 GERD (gastroesophageal reflux disease) K21.9 Esophagitis presence: esophagitis presence not specified CAD (coronary artery disease) I25.10 Diabetes mellitus, type II E11.9 Hypertension I10 Chronic diastolic congestive heart failure I50.32
[2021-04-18] MEDS ORDERED: MIRTAZAPINE TAB 15 MG TAB PO SCH (21:00)
== END 2021-04-18 15:45 | disposition home health service (06) ==
LOC: ED 09:01 → EDINP 09:01 → SUATTDRO 11:29 → EDINP 14:40 → 2S 15:13

== ENCOUNTER 2022-02-12 08:37 | Inpatient (IN) ==
--- NOTE | 2022-02-12 08:40 | Emergency Department Note ---
Impression & Plan Acute exacerbation of CHF (congestive heart failure), Acute leg pain, Bilateral lower leg cellulitis ED Provider Note NAME: JULIO C FAULKNER AGE: 86 SEX: F : 1935 ARRIVES VIA: Ambulance INFORMANT: Patient, ED PROVIDER(S): Elliot Villasenor MD Chief Complaint: Leg swelling, leg pain HPI: Patient presents from [facility] due to concern for worsening leg swelling which been ongoing since Thursday. Patient states she is been compliant with her medications that she receives while at the [facility]. The patient's had worsening pain in the left leg but no falls or trauma. The patient denies any chest pains or shortness of breath at rest. Patient denies any abdominal pain nausea or vomiting. The patient states that she has been having normal bowel movements but has had decreased urine output. No fevers or chills. Patient denies any significant shortness of breath while laying flat. Patient states that the pain is actually in both legs and that is from the knees down. Patient had noticed some weeping from the legs as well. ROS: See HPI for pertinent positives and negatives. A total of 10 systems were reviewed and otherwise negative. Past medical history: See below Surgical history: See below Social history: See below Physical Exam: GENERAL: NAD, wearing a mask, non-toxic. EYE EXAM: Normal conjunctiva. PERRL, no anisocoria and EOM's grossly intact w/o pain. NECK: Supple, no nuchal rigidity, no adenopathy, non-tender. No signs of meningismus. FROM of the neck with good chin to chest and neck extension. No stridor. LUNGS: Clear to auscultation. Normal chest wall mechanics. HEART: Irregular irregular, no MRG. ABDOMEN: Abdomen soft, non-tender, normo-active bowel sounds, no masses, no rebound or guarding. BACK: No CVA TTP. SKIN: No rashes and no bruising. UPPER EXTREMITIES: Upper extremities are grossly normal. LOWER EXTREMITIES: Grossly normal, 1-2+ bilateral symmetric lower extremity edema, good palpable pulses, no asymmetry to the bilateral lower extremities. NEURO EXAM: A&O x3, cranial nerves II-XII grossly intact, normal speech, moves all 4 extremities. Differential diagnoses: Reactive airway disease, pneumonia, pneumothorax, COPD, CHF, infections, cardiac ischemia, pulmonary embolism, musculoskeletal, gastrointestinal, as well as other pathologies. Course: Patient was seen and evaluated the bedside. Full history physical exam was performed. EKG interpreted by me Boris busby, rate of 74, left axis deviation no ST elevations T wave inversion in lateral leads. Patient's EKG looks grossly unchanged from comparison April 23, 2021. Imaging Studies: See Below Cardiac monitoring: An order was placed for continuous cardiac monitoring. The monitor shows a rate of 77 with regular regular rhythm. MDM: Patient did present due to concern for leg swelling and left leg pain. The patient does have palpable pulses and no obvious asymmetry of the bilateral lower extremities. Patient did have blood work completed along with an EKG troponin BNP mag and dig level. The patient is on Plavix Bumex and apixaban. Do not believe the patient requires an arterial or venous Doppler at this time. The patient denies any trauma and has no obvious deformity on exam. The patient does have some cellulitic change to IV Rocephin was ordered. Patient was given 2 mg IV morphine to help with the pain. Shows a normal white count with anemia hemoglobin 10. Platelet count is unremarkable. Kidney function with a creatinine 1.5.Patient's blood work patient's creatinine is at virtual baseline. Bilirubin at 2.1. The patient has no right upper quadrant pain. The patient has had hyperbilirubinemia in the past. Initial troponin 26. BNP is elevated 833 do believe the patient is suffering from volume overload. The patient did receive 2 of IV Bumex. I did speak with the on-call hospitalist Felisa Hayes PA-C and the patient was admitted by Dr. Villafuerte. Dig level normal chest x-ray no obvious pneumonia. COVID-negative. Past Med/Surg History Medical History Anemia Asthma Atrial fibrillation CAD (coronary artery disease) Cerebrovascular disease Chronic diastolic congestive heart failure Chronic kidney disease (CKD) Stage III, baseline Cr 1.3-1.5mg/dL. Complicated with normocytic anemia and secondary hyperparathyroidism. Followed by nephrology. 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 Cannot perform MRI due to bladder implant. Followed by pain management. Epidural steroid injections with improvement of pain. Evaluated by ortho, decided against surgery. Managed with gabapentin 300mg TID + APAP PRN + tapentadol 50mg BID PRN GERD (gastroesophageal reflux disease) GIB (gastrointestinal bleeding) History of gout Managed with allopruinol daily. No recent gouty attacks. Uric acid suppressed 3.4 mg/dl (12/22) Hyperlipidemia Secondary prevention with moderate intensity statin (atorvastatin 20mg daily) Hypertension Hypothyroidism Lichen planus Macular degeneration Mitral regurgitation Neurologic gait dysfunction Obstructive sleep apnea Long standing. Managed with CPAP nightly. CPAP titration polysomnography (07/14). Sensorineural hearing loss (SNHL) of both ears Venous insufficiency of both lower extremities Surgical History H/O colonoscopy History of repair of rectocele S/P breast biopsy S/P section S/P cholecystectomy S/P hysterectomy S/P implantation of urinary electronic stimulator device Family History Father , Age 64 No problems noted. Mother , Age 61 No problems noted. Other Coronary heart disease Denies family history of Ovarian cancer Prostate cancer Crohn's disease Breast cancer Lung cancer Colorectal cancer Social History Smoking Status: Never smoker Second Hand Exposure: No; Hx Alcohol Use: No Hx Substance Use: No Preferred Language: Bulgarian Communication Ability: Effective Visual Impairment: No Limitations Hearing Ability: Normal [employer] Work[employer] Required: No Beliefs That Will Affect Care: None marital status: Single Current Living Situation: Personal Care Facility Current Living Situation Comment: [facility] current occupational status: retired How many Children do You have: 3 Feels Safe at Home: Yes Childhood Exposure to Second-Hand Smoke: No Diet Comment: DIABETIC caffeine: No during the past year weight has: remained stable Dental Care, Regularly: No Physical Activity Frequency: 1-2 Times per Week Seatbelt Use: always Sunscreen Use: Yes Assistive Devices: Walker Allergies Allergies Allergy/AdvReac Type Severity Reaction Status Date / Time shellfish derived Allergy Severe ANAPHYLAXIS Verified 01/17/22 09:05 iodine Allergy Intermediate ANAPHYLAXIS Verified 01/17/22 09:05 lisinopril Allergy Unknown Unknown Verified 01/17/22 09:05 oxybutynin [From Ditropan] Allergy Unknown Unknown Verified 01/17/22 09:05 sertraline [From Zoloft] Allergy Unknown Unknown Verified 01/17/22 09:05 paroxetine AdvReac Mild GI UPSET Verified 01/17/22 09:05 Home Meds Home Medications Medication Instructions Recorded Confirmed cholecalciferol (vitamin D3) 25 2,000 unit PO QAM 05/11/20 01/17/22 mcg (1,000 unit) tablet (Vitamin D3) polyethylene glycol 3350 17 8.5 g PO DAILY PRN Constipation 01/28/21 01/17/22 gram/dose oral powder (Miralax) vit C 226 mg-vit E 90 mg-copper 1 cap PO BID 02/01/21 01/17/22 0.8 mg-zinc oxide-lutein 5 mg capsule (PreserVision Lutein) acetaminophen 500 mg tablet 1,000 mg PO .QHS 12/06/21 01/17/22 clobetasol 0.05 % topical cream 1 applic topical BID 12/06/21 01/17/22 nitroglycerin 0.3 mg sublingual 0.3 mg sublingual Q5M PRN 01/17/22 01/17/22 tablet Previous Rx's Medication Instructions Recorded allopurinol 100 mg tablet 300 mg PO QAM #90 tabs 12/16/21 (Zyloprim) apixaban 2.5 mg tablet (Eliquis) 2.5 mg PO BID #180 tabs 12/16/21 bumetanide 2 mg tablet 2 mg PO BID #60 tabs 12/16/21 clopidogrel 75 mg tablet (Plavix) 75 mg PO QAM #90 tabs 12/16/21 digoxin 125 mcg (0.125 mg) tablet 125 mcg PO Q2D #15 tabs 12/16/21 (Digitek) duloxetine 30 mg capsule,delayed 30 mg PO QAM #90 caps 12/16/21 release (Cymbalta) duloxetine 60 mg capsule,delayed 60 mg PO QAM #90 caps 12/16/21 release (Cymbalta) isosorbide mononitrate 30 mg 30 mg PO QAM #90 tabs 12/16/21 tablet,extended release 24 hr levothyroxine 50 mcg tablet 50 mcg PO DAILYBB #30 tabs 12/16/21 (Synthroid) magnesium oxide 400 mg PO BID #180 tabs 12/16/21 metoprolol succinate 50 mg 150 mg PO BID #540 tabs 12/16/21 tablet,extended release 24 hr (Toprol XL) mirtazapine 15 mg tablet (Remeron) 15 mg PO HS #30 tabs 12/16/21 pantoprazole 40 mg tablet,delayed 40 mg PO QAM #90 tabs 12/16/21 release (Protonix) polysaccharide iron complex 150 mg 150 mg PO QAM #90 caps 12/16/21 iron capsule (Ferrex) potassium chloride 20 mEq 10 meq PO BID #180 tabs 12/16/21 tablet,extended release (K-Tab) insulin glargine 100 unit/mL (3 28 unit (0.28 mL) subcut HS #15 mL 12/18/21 mL) subcutaneous pen (Lantus Solostar U-100 Insulin) glucagon 1 mg solution for 1 mg subcut Q20M PRN hypoglycemia 01/02/22 injection (Glucagon Emergency Kit) #1 ea nystatin 100,000 unit/gram topical 1 applic topical TID 2 weeks #30 01/21/22 cream grams insulin aspart U-100 100 unit/mL 7 - 10 unit (0.07 - 0.1 mL) subcut 02/04/22 (3 mL) subcutaneous pen (Novolog TIDM #45 mL Flexpen U-100 Insulin aspart) Results & Data (ED) Vital Signs Vital Signs - 24 hr 02/12/22 08:44 02/12/22 08:50 02/12/22 09:23 Temperature 36.6 C Temperature Source Oral Pulse Rate 79 75 Pulse Rate from SpO2 Sensor 81 Respiratory Rate 22 17 Respiratory Effort / Characteristics Non-Labored Spontaneous Respiratory Depth Normal Blood Pressure 136/69 Blood Pressure Mean 91 Pulse Oximetry 98 96 Oxygen Delivery Method Room Air Room Air Sepsis Recent Fever Within 48 Hours No Sepsis New/Unexplained Change in Mental Status No Sepsis Action Taken by Nursing No Action Required 02/12/22 09:30 02/12/22 09:30 02/12/22 10:00 Temperature Temperature Source Pulse Rate 84 Pulse Rate from SpO2 Sensor 79 Respiratory Rate 19 Respiratory Effort / Characteristics Respiratory Depth Blood Pressure 150/78 H 167/65 H Blood Pressure Mean 102 99 Pulse Oximetry 97 Oxygen Delivery Method Sepsis Recent Fever Within 48 Hours Sepsis New/Unexplained Change in Mental Status Sepsis Action Taken by Nursing 02/12/22 10:00 02/12/22 10:30 02/12/22 10:30 Temperature Temperature Source Pulse Rate 80 67 Pulse Rate from SpO2 Sensor 78 66 Respiratory Rate 14 Respiratory Effort / Characteristics Respiratory Depth Blood Pressure 161/82 H Blood Pressure Mean 108 Pulse Oximetry 95 95 Oxygen Delivery Method Sepsis Recent Fever Within 48 Hours Sepsis New/Unexplained Change in Mental Status Sepsis Action Taken by [facility] Medications Current Medication List: was personally reviewed by me Laboratory Data Attestation: I reviewed the patient's lab results. Result diagrams: 02/12/22 08:53 02/12/22 08:53 Lab Results 02/12/22 02/12/22 02/12/22 Range/Units 08:53 08:53 08:53 WBC 5.50 (4.8-10.8) K/ul RBC 3.09 L (3.93-5.22) M/uL Hgb 10.3 L (12.0-16.0) g/dl Hct 33.7 L (34.1-44.9) % MCV 109.1 H (80.0-100.0) fL MCH 33.3 (25.0-34.0) pg MCHC 30.6 L (32.0-36.0) g/dL RDW Std Deviation 85.1 H (36.4-46.3) fL RDW Coeff of Talia 22.1 H (11.5-14.5) % Plt Count 177 (130-400) K/uL MPV 13.4 H (9.4-12.3) fL Immature Gran % (Auto) 0.7 % Neut % (Auto) 76.8 % Lymph % (Auto) 8.0 % Hubbard % (Auto) 6.9 % Eos % (Auto) 7.1 % Baso % (Auto) 0.5 % Neut # (Auto) 4.22 (1.4-6.5) K/uL Lymph # (Auto) 0.44 L (1.2-3.4) K/uL Hubbard # (Auto) 0.38 (0.24-0.82) K/uL Eos # (Auto) 0.39 (0-0.50) K/uL Baso # (Auto) 0.03 (0-0.2) K/uL Immature Gran # (Auto) 0.04 H (0.00-0.02) K/uL Absolute Nucleated RBC 0.02 H (0-0) K/uL Nucleated RBC % (auto) 0.4 % Polychromasia 1+ Anisocytosis Present Ovalocytes 2+ PT Cancelled INR Cancelled APTT Cancelled PTT Ratio Cancelled Sodium (136-145) mmol/L Potassium (3.5-5.1) mmol/L Chloride (98-107) mmol/L Carbon Dioxide (21-32) mmol/L Anion Gap (3-11) BUN (6-23) mg/dl Creatinine (0.6-1.2) mg/dl Est Cr Clr Drug Dosing ml/min Est GFR ( Amer) ml/min Est GFR (Non-Af Amer) ml/min BUN/Creatinine Ratio (10-20) Glucose (70-99(Fasting)) mg/dl Calcium (8.5-10.1) mg/dl Magnesium (1.7-2.4) mg/dl Total Bilirubin (0.2-1.0) mg/dl AST (13-39) U/L ALT (7-52) U/L Alkaline Phosphatase (34-104) U/L Troponin I High Sens (0-14) pg/ml B-Natriuretic Peptide 833 H (0-100) pg/ml Total Protein (6.0-8.3) gm/dl Albumin (3.4-5.0) gm/dl Globulin (2.5-4.0) gm/dl Albumin/Globulin Ratio (0.9-2) Urine Color Urine Appearance (Clear) Urine pH (4.5-7.5) Ur Specific Spickard (1.000-1.030) Urine Protein (Negative) Urine Glucose (UA) (Negative) Urine Ketones (Negative) Urine Blood (Negative) Urine Nitrite (Negative) Urine Bilirubin (Negative) Urine Urobilinogen (Negative) Ur Leukocyte Esterase (Negative) Urine WBC (Auto) (0-5) /hpf Urine RBC (Auto) (0-4) /hpf U Hyaline Cast (Auto) (0-5) /lpf U Epithel Cells (Auto) (0-5) /lpf Urine Bacteria (Auto) (Negative) Digoxin (0.8-2.0) ng/ml 02/12/22 02/12/22 02/12/22 Range/Units 08:53 08:53 09:20 WBC (4.8-10.8) K/ul RBC (3.93-5.22) M/uL Hgb (12.0-16.0) g/dl Hct (34.1-44.9) % MCV (80.0-100.0) fL MCH (25.0-34.0) pg MCHC (32.0-36.0) g/dL RDW Std Deviation (36.4-46.3) fL RDW Coeff of Talia (11.5-14.5) % Plt Count (130-400) K/uL MPV (9.4-12.3) fL Immature Gran % (Auto) % Neut % (Auto) % Lymph % (Auto) % Hubbard % (Auto) % Eos % (Auto) % Baso % (Auto) % Neut # (Auto) (1.4-6.5) K/uL Lymph # (Auto) (1.2-3.4) K/uL Hubbard # (Auto) (0.24-0.82) K/uL Eos # (Auto) (0-0.50) K/uL Baso # (Auto) (0-0.2) K/uL Immature Gran # (Auto) (0.00-0.02) K/uL Absolute Nucleated RBC (0-0) K/uL Nucleated RBC % (auto) % Polychromasia Anisocytosis Ovalocytes PT INR APTT PTT Ratio Sodium 142 (136-145) mmol/L Potassium 3.8 (3.5-5.1) mmol/L Chloride 100 (98-107) mmol/L Carbon Dioxide 34 H (21-32) mmol/L Anion Gap 8 (3-11) BUN 38 H (6-23) mg/dl Creatinine 1.55 H (0.6-1.2) mg/dl Est Cr Clr Drug Dosing 21.6 ml/min Est GFR ( Amer) 35.3 ml/min Est GFR (Non-Af Amer) 30.4 ml/min BUN/Creatinine Ratio 24.5 H (10-20) Glucose 125 H (70-99(Fasting)) mg/dl Calcium 8.9 (8.5-10.1) mg/dl Magnesium 2.2 (1.7-2.4) mg/dl Total Bilirubin 2.1 H (0.2-1.0) mg/dl AST 39 (13-39) U/L ALT 23 (7-52) U/L Alkaline Phosphatase 199 H (34-104) U/L Troponin I High Sens 26.1 H (0-14) pg/ml B-Natriuretic Peptide (0-100) pg/ml Total Protein 6.9 (6.0-8.3) gm/dl Albumin 4.0 (3.4-5.0) gm/dl Globulin 2.9 (2.5-4.0) gm/dl Albumin/Globulin Ratio 1.4 (0.9-2) Urine Color Yellow Urine Appearance Cloudy A (Clear) Urine pH 6.0 (4.5-7.5) Ur Specific Spickard 1.015 (1.000-1.030) Urine Protein Trace H (Negative) Urine Glucose (UA) Negative (Negative) Urine Ketones Negative (Negative) Urine Blood Negative (Negative) Urine Nitrite Negative (Negative) Urine Bilirubin Negative (Negative) Urine Urobilinogen Negative (Negative) Ur Leukocyte Esterase 1+ H (Negative) Urine WBC (Auto) 10-30 H (0-5) /hpf Urine RBC (Auto) 0-4 (0-4) /hpf U Hyaline Cast (Auto) 1-5 (0-5) /lpf U Epithel Cells (Auto) >30 H (0-5) /lpf Urine Bacteria (Auto) 4+ H (Negative) Digoxin 0.8 (0.8-2.0) ng/ml 02/12/22 Range/Units 09:24 WBC (4.8-10.8) K/ul RBC (3.93-5.22) M/uL Hgb (12.0-16.0) g/dl Hct (34.1-44.9) % MCV (80.0-100.0) fL MCH (25.0-34.0) pg MCHC (32.0-36.0) g/dL RDW Std Deviation (36.4-46.3) fL RDW Coeff of Talia (11.5-14.5) % Plt Count (130-400) K/uL MPV (9.4-12.3) fL Immature Gran % (Auto) % Neut % (Auto) % Lymph % (Auto) % Hubbard % (Auto) % Eos % (Auto) % Baso % (Auto) % Neut # (Auto) (1.4-6.5) K/uL Lymph # (Auto) (1.2-3.4) K/uL Hubbard # (Auto) (0.24-0.82) K/uL Eos # (Auto) (0-0.50) K/uL Baso # (Auto) (0-0.2) K/uL Immature Gran # (Auto) (0.00-0.02) K/uL Absolute Nucleated RBC (0-0) K/uL Nucleated RBC % (auto) % Polychromasia Anisocytosis Ovalocytes PT 11.8 INR 1.1 APTT 28.3 PTT Ratio 1.0 Sodium (136-145) mmol/L Potassium (3.5-5.1) mmol/L Chloride (98-107) mmol/L Carbon Dioxide (21-32) mmol/L Anion Gap (3-11) BUN (6-23) mg/dl Creatinine (0.6-1.2) mg/dl Est Cr Clr Drug Dosing ml/min Est GFR ( Amer) ml/min Est GFR (Non-Af Amer) ml/min BUN/Creatinine Ratio (10-20) Glucose (70-99(Fasting)) mg/dl Calcium (8.5-10.1) mg/dl Magnesium (1.7-2.4) mg/dl Total Bilirubin (0.2-1.0) mg/dl AST (13-39) U/L ALT (7-52) U/L Alkaline Phosphatase (34-104) U/L Troponin I High Sens (0-14) pg/ml B-Natriuretic Peptide (0-100) pg/ml Total Protein (6.0-8.3) gm/dl Albumin (3.4-5.0) gm/dl Globulin (2.5-4.0) gm/dl Albumin/Globulin Ratio (0.9-2) Urine Color Urine Appearance (Clear) Urine pH (4.5-7.5) Ur Specific Spickard (1.000-1.030) Urine Protein (Negative) Urine Glucose (UA) (Negative) Urine Ketones (Negative) Urine Blood (Negative) Urine Nitrite (Negative) Urine Bilirubin (Negative) Urine Urobilinogen (Negative) Ur Leukocyte Esterase (Negative) Urine WBC (Auto) (0-5) /hpf Urine RBC (Auto) (0-4) /hpf U Hyaline Cast (Auto) (0-5) /lpf U Epithel Cells (Auto) (0-5) /lpf Urine Bacteria (Auto) (Negative) Digoxin (0.8-2.0) ng/ml Administered Medications Acetaminophen (Acetaminophen 325 Mg Tab) 650 mg PO Q4H PRN PRN Reason: Pain or Fever Stop: 03/14/22 12:14 Last Admin: 02/12/22 14:34 Dose: 650 mg Documented By: MTM Insulin Aspart (Insulin Aspart Per Unit) 0 units SC ACHS RODDY Stop: 03/14/22 12:59 Last Admin: 02/12/22 13:50 Dose: Not Given Documented By: MTM Nystatin (Nystatin Cr 15 Gm Tube) 1 appln EXT TID [facility] Stop: 03/14/22 13:59 Last Admin: 02/12/22 14:31 Dose: 1 appln Documented By: MTM Discontinued Medications Ceftriaxone Sodium (Rocephin) 2,000 mg in 70 mls @ 140 mls/hr IV NOW STA Stop: 02/12/22 09:18 Last Infusion: 02/12/22 10:02 Dose: 0 mls/hr Documented By: Admin: 02/12/22 09:32 Dose: 140 mls/hr Documented By: TNB Bumetanide 2 mg/ Syringe 8 mls @ 4 mls/min IV ONE ONE Stop: 02/12/22 10:22 Last Admin: 02/12/22 10:50 Dose: 4 mls/min Documented By: TNB Morphine Sulfate (Morphine Sulfate 2 Mg/Ml Carp) 2 mg IV NOW STA Stop: 02/12/22 09:30 Last Admin: 02/12/22 09:32 Dose: 2 mg Documented By: TNB Imaging Data Radiologist's Impression: Chest X-Ray 02/12/22 08:50 SINGLE VIEW CHEST CLINICAL HISTORY: Dyspnea FINDINGS: An AP, portable, upright chest radiograph is compared to study dated 04/23/2021 and correlated with chest CT dated 06/26/2020. The examination is degra ded by portable technique and patient rotation. The heart is enlarged noting atherosclerotic calcification of the thoracic aorta. The pulmonary vasculature is noncongested. Chronic interstitial thickening is similar previous. There is bibasilar scarring/atelectasis. The lungs and pleural spaces are otherwise clear. No pneumothorax is seen. The skeletal structures are osteopenic. The bony thorax is grossly intact. IMPRESSION: Cardiomegaly with no active disease in the chest. ACT 112: Negative or not required by law. Electronically signed by: Jorge Cornejo M.D. 02/12/2022 10:10 AM Discharge Plan Visit Data Chief Complaint: Swelling/Edema to Extremity Stated Complaint: BILAT. LEG PAIN & EDEMA ED Provider: Elliot Villasenor Discharge Problem: Acute exacerbation of CHF (congestive heart failure), Acute leg pain, Bilateral lower leg cellulitis Patient Disposition: Admitted As Inpatient Discharge Instructions Interventions: ED Discharge Assessment Last Done: 02/12/22 11:08
[2022-02-12] MEDS ORDERED: cefTRIAXone SODIUM 2,000 MG/70 ML BAG IV STA (08:49)
[2022-02-12 09:15] LABS: Hematocrit (blood only) 33.7 % (34.1-44.9); Hemoglobin 10.3 g/dl (12.0-16.0); Mean Corpuscular Hemoglobin 33.3 pg (25.0-34.0); Mean Corpuscular Hgb Conc 30.6 g/dL (32.0-36.0); Mean Corpuscular Volume 109.1 fL (80.0-100.0); Nucleated RBC # (auto) 0.02 K/uL (0-0); Nucleated RBC % (auto) 0.4 %; RDW Coefficient of Variation 22.1 % (11.5-14.5); RDW Standard Deviation 85.1 fL (36.4-46.3); Red Blood Count 3.09 M/uL (3.93-5.22)
[2022-02-12] MEDS ORDERED: MoRPHine SULFATE 2 MG/ML CARP IV STA ×2 (09:29→22:43)
[2022-02-12 09:42] LABS: Troponin I High Sensitivity 26.1 pg/ml (0-14)
[2022-02-12 09:43] LABS: Albumin Globulin Ratio 1.4 (0.9-2); BUN Creatinine Ratio 24.5 (10-20); Bilirubin,Total 2.1 mg/dl (0.2-1.0); Calcium 8.9 mg/dl (8.5-10.1); Creatinine Clr Calc Pharmacy 21.6 ml/min; Est GFR (African American) 35.3 ml/min; Est GFR (Non-African American) 30.4 ml/min; Globulin 2.9 gm/dl (2.5-4.0); Magnesium 2.2 mg/dl (1.7-2.4); Potassium 3.8 mmol/L (3.5-5.1); Total Protein 6.9 gm/dl (6.0-8.3)
[2022-02-12 09:48] LABS: Anisocytosis Present; Basophils # (auto) 0.03 K/uL (0-0.2); Basophils % (auto) 0.5 %; Eosinophils # (auto) 0.39 K/uL (0-0.50); Eosinophils % (auto) 7.1 %; Immature Granulocytes # (auto) 0.04 K/uL (0.00-0.02); Immature Granulocytes % (auto) 0.7 %; Lymphocytes # (auto) 0.44 K/uL (1.2-3.4); Mean Platelet Volume 13.4 fL (9.4-12.3); Monocytes # (auto) 0.38 K/uL (0.24-0.82); Monocytes % (auto) 6.9 %; Neutrophils # (auto) 4.22 K/uL (1.4-6.5); Neutrophils % (auto) 76.8 %; Ovalocytes 2+; Platelet Count 177 K/uL (130-400); Polychromasia 1+
[2022-02-12 09:49] LABS: Appearance Urine Cloudy (Clear); Bacteria Urine Automated 4+ (Negative); Bilirubin Urine Negative (Negative); Blood Urine Negative (Negative); Color Urine Yellow; Epithelial Cell Urine Auto >30 /lpf (0-5); Glucose Urine UA Negative (Negative); Ketones Urine Negative (Negative); Leukocyte Esterase Urine 1+ (Negative); Nitrite Urine Negative (Negative); Protein Urine Trace (Negative); RBC Urine Automated 0-4 /hpf (0-4); Specific Gravity Urine 1.015 (1.000-1.030); Urobilinogen Urine Negative (Negative)
[2022-02-12 10:03] LABS: INR 1.1 (0.9-1.1); Partial Thromboplastin Time 28.3 Seconds (21.0-31.0); Prothrombin Time 11.8 Seconds (9.0-12.0)
--- NOTE | 2022-02-12 10:12 | XRay Report ---
SINGLE VIEW CHEST CLINICAL HISTORY: Dyspnea FINDINGS: An AP, portable, upright chest radiograph is compared to study dated 04/23/2021 and correlat ed with chest CT dated 06/26/2020. The examination is degraded by portable technique and patient rotat ion. The heart is enlarged noting atherosclerotic calcification of the thoracic aorta. The pulmonary vasculature is noncongested. Chronic interstitial thickening is similar previous. There is bibasilar scarring/atelectasis. The lungs and pleural spaces are otherwise clear. No pneumothorax is seen. The skeletal structures are osteopenic. The bony thorax is grossly intact. IMPRESSION: Cardiomegaly with no active disease in the chest. ACT 112: Negative or not required by law. Electronically signed by: Jorge Cornejo M.D. 02/12/2022 10:10 AM
[2022-02-12] MEDS ORDERED: BUMETANIDE 2 MG in SYRINGE 0 ML IV ONE (10:21)
--- NOTE | 2022-02-12 10:36 | History & Physical Report ---
Date of Service February 12, 2022 Assessment & Plan (1) Acute on chronic heart failure with preserved ejection fraction: Plan: - 4 days of bilateral lower extremity swelling, pain, redness. - No SOB, chest pain/heaviness, palpitations, productive cough. - CXR: Cardiomegaly with no active disease in the chest. - DDx: Acute on chronic heart failure exacerbation most likely given her history, w/ concomitant venous insufficiency, DM related neuropathy. VTE less likely as she is on Eliquis chronically for a fib. 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 Reports compliance that she lives at assisted living and they watch her take her medications. Did report a check visit last month skipping evening dose due to being up all night urinating. - Echo August 2020: EF 60-65%, normal LV size and systolic function, no wall abnormalities or LVH. Severe pulmonary hypertension estimated RVSP 85 w/ moderate-severe tricuspid regurg, mild-moderate mitral regurg, mild aortic regurg. - Received 2 mg IV Bumex in ED, will continue IV mg Bumex BID. - Update echo. - Dry weight ~144-145 pounds, patient weight in ED 151 pounds. - Strict I&Os, daily weights, low sodium/DM diet with 1.5 L fluid restriction. (2) UTI (urinary tract infection): Plan: - UA contaminated with epithelial cells, but positive for bacteria, leuk esterase, WBCs. Patient also calling dysuria and urinary retention of the past several days. - Urine culture obtained, will start patient on Rocephin. (3) Severe pulmonary hypertension: Plan: - Noted on prior echo. Repeating echo as above. (4) CAD (coronary artery disease): Plan: - s/p PCI of the proximal LAD on 12/06/[address] Miller. - Stable, without chest pain/palpitations/pressure, shortness of breath. - Continue Imdur, metoprolol, statin, nitroglycerin as needed, Plavix. (5) Atrial fibrillation: Plan: - Permanent, asymptomatic, continue metoprolol and digoxin, Eliquis. - Dig level checked in ED, 0.8 low-normal but therapeutic. (6) Diabetes mellitus, type II: Plan: - Continue insulin glargine 28 units at night with Accu-Cheks/sliding scale insulin. - Low-sodium/diabetic diet. - Continue Cymbalta for depression/neuropathy pain. (7) Chronic kidney disease (CKD): Plan: - Renal function at/about baseline. - Renally dose medications as able and avoid nephrotoxins. (8) Anemia: Plan: - Hgb 10.3, at baseline. Likely multifactorial from CKD, hemolysis (elevated t bili, LDH, retic count, low haptoglobin in 2020). ? early MDS. - Follows with CCP, last seen by Dr. Carter in December. - Deferring further workup, i.e bone marrow biopsy given age and stability. - For now, as long as Hgb remains stable, will follow up as outpt q3 months. - Continue oral iron supplementation. (9) Hypothyroidism: Plan: - Continue levothyroxine 50 mcg daily. (10) COPD (chronic obstructive pulmonary disease): Plan: - Continue albuterol as needed. - No evidence of exacerbation today. Plan - Admit to med telemetry. - SCDs ordered and encouraged, continue Eliquis for VTE PPx. - DNR/DNI. History of Present Illness Primary Care Provider: DO Tiffanie Hurtado German is an 86-year-old female with past medical history significant for CAD, diastolic heart failure, a fib, asthma, COPD, diabetes, CKD, GERD, GI bleed, anemia, hypothyroidism, BETHANY who presents today with leg swelling x 4 days. She noticed prior to Thursday they had gradually become larger until Thursday when they were very large and heavy, making ambulation difficult. They are more red than usual and have been weeping fluids, left more than right. At baseline they are very painful, which is unchanged today. No recent falls or injuries to the legs or elsewhere. No fever/chills, myalgias, fatigue, or weakness, shortness of breath, chest pain, palpitations, or cough. She has noted decreased urination and some mild dysuria over the past few days. She lives at [facility] where staff administers medications, so she stated compliance with her Bumex and all other mediations. Reports her dry weight is 144-145 lbs, unsure when she was last weighed. Upon presentation, patient's vital signs within normal limits, stable. Labs remarkable for BNP of 833, otherwise largely unrevealing, her anemia is at baseline, renal function at baseline, troponin mildly elevated to 26, total bilirubin 2.1, which is chronically elevated. UA with >30 epithelial cells, with WBCs, bacteria, leuk esterase. Chest x-ray with cardiomegaly, no active chest disease. Allergies Allergy/AdvReac Type Severity Reaction Status Date / Time shellfish derived Allergy Severe ANAPHYLAXIS Verified 01/17/22 09:05 iodine Allergy Intermediate ANAPHYLAXIS Verified 01/17/22 09:05 lisinopril Allergy Unknown Unknown Verified 01/17/22 09:05 oxybutynin [From Ditropan] Allergy Unknown Unknown Verified 01/17/22 09:05 sertraline [From Zoloft] Allergy Unknown Unknown Verified 01/17/22 09:05 paroxetine AdvReac Mild GI UPSET Verified 01/17/22 09:05 Home Medications Medication Instructions Recorded Confirmed Type cholecalciferol (vitamin D3) 25 2,000 unit PO QAM 05/11/20 01/17/22 History mcg (1,000 unit) tablet (Vitamin D3) polyethylene glycol 3350 17 8.5 g PO DAILY PRN Constipation 01/28/21 01/17/22 History gram/dose oral powder (Miralax) vit C 226 mg-vit E 90 mg-copper 1 cap PO BID 02/01/21 01/17/22 History 0.8 mg-zinc oxide-lutein 5 mg capsule (PreserVision Lutein) acetaminophen 500 mg tablet 1,000 mg PO .QHS 12/06/21 01/17/22 History clobetasol 0.05 % topical cream 1 applic topical BID 12/06/21 01/17/22 History allopurinol 100 mg tablet 300 mg PO QAM #90 tabs 12/16/21 01/17/22 Rx (Zyloprim) apixaban 2.5 mg tablet (Eliquis) 2.5 mg PO BID #180 tabs 12/16/21 01/17/22 Rx bumetanide 2 mg tablet 2 mg PO BID #60 tabs 12/16/21 01/17/22 Rx clopidogrel 75 mg tablet (Plavix) 75 mg PO QAM #90 tabs 12/16/21 01/17/22 Rx digoxin 125 mcg (0.125 mg) tablet 125 mcg PO Q2D #15 tabs 12/16/21 01/17/22 Rx (Digitek) duloxetine 30 mg capsule,delayed 30 mg PO QAM #90 caps 12/16/21 01/17/22 Rx release (Cymbalta) duloxetine 60 mg capsule,delayed 60 mg PO QAM #90 caps 12/16/21 01/17/22 Rx release (Cymbalta) isosorbide mononitrate 30 mg 30 mg PO QAM #90 tabs 12/16/21 01/17/22 Rx tablet,extended release 24 hr levothyroxine 50 mcg tablet 50 mcg PO DAILYBB #30 tabs 12/16/21 01/17/22 Rx (Synthroid) magnesium oxide 400 mg PO BID #180 tabs 12/16/21 01/17/22 Rx metoprolol succinate 50 mg 150 mg PO BID #540 tabs 12/16/21 01/17/22 Rx tablet,extended release 24 hr (Toprol XL) mirtazapine 15 mg tablet (Remeron) 15 mg PO HS #30 tabs 12/16/21 01/17/22 Rx pantoprazole 40 mg tablet,delayed 40 mg PO QAM #90 tabs 12/16/21 01/17/22 Rx release (Protonix) polysaccharide iron complex 150 mg 150 mg PO QAM #90 caps 12/16/21 01/17/22 Rx iron capsule (Ferrex) potassium chloride 20 mEq 10 meq PO BID #180 tabs 12/16/21 01/17/22 Rx tablet,extended release (K-Tab) insulin glargine 100 unit/mL (3 28 unit (0.28 mL) subcut HS #15 mL 12/18/21 01/17/22 Rx mL) subcutaneous pen (Lantus Solostar U-100 Insulin) glucagon 1 mg solution for 1 mg subcut Q20M PRN hypoglycemia 01/02/22 01/17/22 Rx injection (Glucagon Emergency Kit) #1 ea nitroglycerin 0.3 mg sublingual 0.3 mg sublingual Q5M PRN 01/17/22 01/17/22 History tablet nystatin 100,000 unit/gram topical 1 applic topical TID 2 weeks #30 01/21/22 Rx cream grams insulin aspart U-100 100 unit/mL 7 - 10 unit (0.07 - 0.1 mL) subcut 02/04/22 Rx (3 mL) subcutaneous pen (Novolog TIDM #45 mL Flexpen U-100 Insulin aspart) Past Med/Surg History Medical History Anemia Asthma Atrial fibrillation CAD (coronary artery disease) Cerebrovascular disease Chronic diastolic congestive heart failure Chronic kidney disease (CKD) Stage III, baseline Cr 1.3-1.5mg/dL. Complicated with normocytic anemia and secondary hyperparathyroidism. Followed by nephrology. 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 Cannot perform MRI due to bladder implant. Followed by pain management. Epidural steroid injections with improvement of pain. Evaluated by ortho, decided against surgery. Managed with gabapentin 300mg TID + APAP PRN + tapentadol 50mg BID PRN GERD (gastroesophageal reflux disease) GIB (gastrointestinal bleeding) History of gout Managed with allopruinol daily. No recent gouty attacks. Uric acid suppressed 3.4 mg/dl (12/22) Hyperlipidemia Secondary prevention with moderate intensity statin (atorvastatin 20mg daily) Hypertension Hypothyroidism Lichen planus Macular degeneration Mitral regurgitation Neurologic gait dysfunction Obstructive sleep apnea Long standing. Managed with CPAP nightly. CPAP titration polysomnography (07/14). Sensorineural hearing loss (SNHL) of both ears Venous insufficiency of both lower extremities Surgical History H/O colonoscopy History of repair of rectocele S/P breast biopsy S/P section S/P cholecystectomy S/P hysterectomy S/P implantation of urinary electronic stimulator device Family History Father , Age 64 No problems noted. Mother , Age 61 No problems noted. Other Coronary heart disease Denies family history of Ovarian cancer Prostate cancer Crohn's disease Breast cancer Lung cancer Colorectal cancer Social History Smoking Status: Never smoker Second Hand Exposure: No; Hx Alcohol Use: No Hx Substance Use: No Preferred Language: Albanian Communication Ability: Effective Visual Impairment: No Limitations Hearing Ability: Normal Journal Entry Audit Clerk Required: No Beliefs That Will Affect Care: None marital status: Single Current Living Situation: Shelter Current Living Situation Comment: [facility] current occupational status: retired How many Children do You have: 3 Other Information That Helps Us Care for You: No Feels Safe at Home: Yes Safety Concerns: Feels Safe At This Time Childhood Exposure to Second-Hand Smoke: No Diet Comment: DIABETIC caffeine: No during the past year weight has: remained stable Dental Care, Regularly: No Physical Activity Frequency: 1-2 Times per Week Seatbelt Use: always Sunscreen Use: Yes Assistive Devices: Walker Review of Systems Review of Systems: Constitutional: No fever/chills, weakness, fatigue, myalgias, anorexia, night sweats Eyes: No diplopia, no worsening or blurred vision ENT: normal hearing, no trouble swallowing Respiratory: No cough, sputum, dyspnea at rest or on exertion Cardiovascular: No chest pain, tightness or palpitations Abdomen: No pain, nausea, vomiting, diarrhea or constipation : decreased urination with occasional burning x several days; denies hematuria, urinary retention Musculoskeletal: b/l lower leg swelling, pain, and redness x4 days Neurologic: No weakness, numbness/tingling, or balance problems Psychiatric: No anxiety or depression Skin: No rash or itch Physical Exam Physical Exam: General: awake, alert, no apparent distress Head: Normocephalic, atraumatic ENT: PERRL, EOMI, no pharyngeal exudate, mucous membranes moist Chest: Clear to auscultation, on room air, no adventitious breath sounds Cardiac: Regular rate and rhythm, no murmur, no JVD, normal peripheral pulses, good capillary refill Abdominal: mildly TTP in upper/middle abdomen without rebound, NABS x 4 quadrants, soft, nontender to palpation, no rebound, guarding or tenderness Extremities: b/l LE erythema, edema, legs very TTP moreso in the front of legs and feet; there are several wounds on legs without active drainage Psych: Normal mood and affect Neuro: AAO x 3, strength intact bilaterally and rated 5/5, no motor deficits, speech is clear, no peripheral sensory deficits Skin: no rash or erythema Results & Data Results & Data ([facility]) Vital Signs (Past 12 Hours) Vital Signs Temp Pulse Resp BP Pulse Ox O2 Del Method 02/12/22 08:50 Room Air 02/12/22 08:44 36.6 C 79 22 136/69 98 Room Air Laboratory Results Abnormal lab results 02/12/22 02/12/22 02/12/22 Range/Units 08:53 08:53 08:53 RBC 3.09 L (3.93-5.22) M/uL Hgb 10.3 L (12.0-16.0) g/dl Hct 33.7 L (34.1-44.9) % MCV 109.1 H (80.0-100.0) fL MCHC 30.6 L (32.0-36.0) g/dL RDW Std Deviation 85.1 H (36.4-46.3) fL RDW Coeff of Talia 22.1 H (11.5-14.5) % MPV 13.4 H (9.4-12.3) fL Lymph # (Auto) 0.44 L (1.2-3.4) K/uL Immature Gran # (Auto) 0.04 H (0.00-0.02) K/uL Absolute Nucleated RBC 0.02 H (0-0) K/uL Carbon Dioxide 34 H (21-32) mmol/L BUN 38 H (6-23) mg/dl Creatinine 1.55 H (0.6-1.2) mg/dl BUN/Creatinine Ratio 24.5 H (10-20) Glucose 125 H (70-99(Fasting)) mg/dl Total Bilirubin 2.1 H (0.2-1.0) mg/dl Alkaline Phosphatase 199 H (34-104) U/L Troponin I High Sens 26.1 H (0-14) pg/ml B-Natriuretic Peptide 833 H (0-100) pg/ml Urine Appearance (Clear) Urine Protein (Negative) Ur Leukocyte Esterase (Negative) Urine WBC (Auto) (0-5) /hpf U Epithel Cells (Auto) (0-5) /lpf Urine Bacteria (Auto) (Negative) 02/12/22 Range/Units 09:20 RBC (3.93-5.22) M/uL Hgb (12.0-16.0) g/dl Hct (34.1-44.9) % MCV (80.0-100.0) fL MCHC (32.0-36.0) g/dL RDW Std Deviation (36.4-46.3) fL RDW Coeff of Talia (11.5-14.5) % MPV (9.4-12.3) fL Lymph # (Auto) (1.2-3.4) K/uL Immature Gran # (Auto) (0.00-0.02) K/uL Absolute Nucleated RBC (0-0) K/uL Carbon Dioxide (21-32) mmol/L BUN (6-23) mg/dl Creatinine (0.6-1.2) mg/dl BUN/Creatinine Ratio (10-20) Glucose (70-99(Fasting)) mg/dl Total Bilirubin (0.2-1.0) mg/dl Alkaline Phosphatase (34-104) U/L Troponin I High Sens (0-14) pg/ml B-Natriuretic Peptide (0-100) pg/ml Urine Appearance Cloudy A (Clear) Urine Protein Trace H (Negative) Ur Leukocyte Esterase 1+ H (Negative) Urine WBC (Auto) 10-30 H (0-5) /hpf U Epithel Cells (Auto) >30 H (0-5) /lpf Urine Bacteria (Auto) 4+ H (Negative) Diagnostic Findings Chest X-Ray 02/12/22 08:50 SINGLE VIEW CHEST CLINICAL HISTORY: Dyspnea FINDINGS: An AP, portable, upright chest radiograph is compared to study dated 04/23/2021 and correlated with chest CT dated 06/26/2020. The examination is degraded by portable technique and patient rotation. The heart is enlarged noting atherosclerotic calcification of the thoracic aorta. The pulmonary vascu lature is noncongested. Chronic interstitial thickening is similar previous. There is bibasilar scarring/atelectasis. The lungs and pleural spaces are otherwise clear. No pneumothorax is seen. The skeletal structures are osteopenic. The bony thorax is grossly intact. IMPRESSION: Cardiomegaly with no active disease in the chest. ACT 112: Negative or not required by law. Electronically signed by: Jorge Cornejo M.D. 02/12/2022 10:10 AM ECG Additional Comments: Poor data quality, interpretation may be adversely affected Atrial fibrillation Left axis deviation Inferior infarct , age undetermined Abnormal ECG When compared with ECG of 23-APR-2021 14:55, QRS axis Shifted left Inferior infarct is now Present. Code Status & VTE Plan Code Status DNR/DNI. Supervising Physician Co-Signing Physician Notes Patient seen and examined, chart reviewed, case discussed with Rosalind Hayes PA-C and I agree with the assessment and plan as above except as otherwise noted Labs and images reviewed Tiffanie is an 86-year-old female with a past medical history of CHF, lower extremity cellulitis, DM with neuropathy, OA, A. fib, CKD, GERD, COPD who presented with progressive lower extremity swelling bilaterally which have become very painful and asymmetrically tender on the anterior aspects. On exam is with bilateral symmetrical erythema and tenderness, pitting edema. Afebrile, heart rate is regular. Suspect acute on chronic heart failure, lower suspicion for cellulitis given bilateral involvement suspect that this is likely superimposed venous insufficiency. Agree with diuretic management above. Trend CBC/BMP. No chest pain on admission, continue home Imdur/MTP/nitro/Plavix and statin. PG Care Time/CCT Total # of Minutes Spent Total Time Spent with Patient: Total time spent is greater than 50% in coordination of care (as documented) at patient's floor/unit and/or counseling patient: Coding Level of Care Code 03546 Initial Inpt Care Lvl 3 Diagnoses Acute on chronic heart failure with preserved ejection fraction I50.33 UTI (urinary tract infection) N39.0 Severe pulmonary hypertension I27.20 CAD (coronary artery disease) I25.10 Atrial fibrillation I48.91 Atrial fibrillation type: unspecified Diabetes mellitus, type II E11.9 Chronic kidney disease (CKD) N18.9 Anemia D64.9 Anemia type: unspecified type Hypothyroidism E03.9 Hypothyroidism type: unspecified COPD (chronic obstructive pulmonary disease) J44.9 (1) Anemia Anemia type: unspecified type Qualified Code(s): D64.9 - Anemia, unspecified (2) Atrial fibrillation Atrial fibrillation type: unspecified Qualified Code(s): I48.91 - Unspecified atrial fibrillation (3) Hypothyroidism Hypothyroidism type: unspecified Qualified Code(s): E03.9 - Hypothyroidism, unspecified
[2022-02-12] MEDS ORDERED: ALUMINUM/MAGNESIUM SUSP 30 ML UDC PO PRN (12:15)
[2022-02-12] MEDS ORDERED: DEXTROSE 50% 50 ML SYRINGE IV PRN (12:15)
[2022-02-12] MEDS ORDERED: POLYETHYLENE (MIRALAX) 17 GM PACK PO PRN (12:15)
[2022-02-12] MEDS ORDERED: ONDANSETRON INJ 2 MG/ML 2 ML VIAL IV PRN (12:15)
[2022-02-12] MEDS ORDERED: GLUCOSE 40% GEL 15 GM TUBE PO PRN (12:15)
[2022-02-12] MEDS ORDERED: GLUCAGON FOR INJ 1 MG VIAL SQ PRN (12:15)
[2022-02-12] MEDS ORDERED: CARBOHYDRATES FOR HYPOGLYCEMIA PO PRN (12:15)
[2022-02-12] MEDS ORDERED: GLUCOSE 10 TAB/TUBE PO PRN (12:15)
[2022-02-12] MEDS ORDERED: NITROGLYCERIN SL 0.4 MG/TAB TAB SL PRN (12:37)
[2022-02-12] MEDS: INSULIN ASPART PER UNIT SC SCH ×3 (13:50→21:25)
[2022-02-12] MEDS: NYSTATIN CR 15 GM TUBE EXT SCH ×2 (14:31→21:27)
[2022-02-12] MEDS: ACETAMINOPHEN 325 MG TAB PO PRN (14:34)
--- NOTE | 2022-02-12 16:14 | XCELERA ---
[id number]
[2022-02-12] MEDS: *CLOBETASOL*ORDER AWAITING ACTION SCH (16:26)
--- NOTE | 2022-02-12 16:52 | Electrocardiogram Report ---
Test Reason : Blood Pressure : / mmHG Vent. Rate : 074 BPM Atrial Rate : 072 BPM P-R Int : 000 ms QRS Dur : 076 ms QT Int : 402 ms P-R-T Axes : 000 -49 193 degrees QTc Int : 446 ms Poor data quality, interpretation may be adversely affected Atrial fibrillation Left axis deviation Inferior infarct , age undetermined Abnormal ECG When compared with ECG of 23-APR-2021 14:55, QRS axis Shifted left Inferior infarct is now Present Confirmed by Nate Roland ([id number]) on 02/12/2022 4:51:50 PM Referred By: REFERRED SELF Confirmed By:Nate Roland
[2022-02-12] MEDS: BUMETANIDE 2 MG in SYRINGE 0 ML IV SCH (17:41)
[2022-02-12] MEDS ORDERED: traMADol HCL 50 MG TABLET PO STA (19:46)
[2022-02-12] MEDS: APIXABAN 2.5 MG TAB PO SCH (21:25)
[2022-02-12] MEDS: MAGNESIUM OXIDE 400 MG TAB PO SCH (21:26)
[2022-02-12] MEDS: METOPROLOL SUCC 50MG EXT REL TAB PO SCH (21:26)
[2022-02-12] MEDS: LANTUS PER UNIT CHARGE SQ SCH (21:26)
[2022-02-12] MEDS: MIRTAZAPINE TAB 15 MG TAB PO SCH (21:27)
[2022-02-12] MEDS: POTASSIUM CHLORIDE 10 MEQ TABCR PO SCH (21:27)
[2022-02-13] MEDS: *CLOBETASOL*ORDER AWAITING ACTION SCH ×3 (00:34→15:45)
[2022-02-13] MEDS: LEVOTHYROXINE SODIUM 50 MCG TABLET PO SCH (06:07)
[2022-02-13] MEDS ORDERED: PHARMACY GLYCEMIC MGMT CONSULT PRN (07:32)
[2022-02-13 08:06] LABS: Creatinine Clr Calc Pharmacy 24.8 ml/min; Est GFR (African American) 37.9 ml/min; Est GFR (Non-African American) 32.7 ml/min; Magnesium 2.3 mg/dl (1.7-2.4); Potassium 3.5 mmol/L (3.5-5.1)
[2022-02-13] MEDS: allopurinoL 300 MG TAB PO SCH (08:32)
[2022-02-13] MEDS: CHOLECALCIFEROL 1,000 UNITS 25 MCG TAB PO SCH (08:32)
[2022-02-13] MEDS: POTASSIUM CHLORIDE 10 MEQ TABCR PO SCH ×2 (08:32→21:26)
[2022-02-13] MEDS: ISOSORBIDE MONO EXTENDED REL 30 MG TABCR PO SCH (08:32)
[2022-02-13] MEDS: CEROVITE ADV FORMULA TAB PO SCH (08:33)
[2022-02-13] MEDS: DULoxetine HCL 30 MG CAP PO SCH (08:33)
[2022-02-13] MEDS: CLOPIDOGREL BISULFATE 75 MG TAB PO SCH (08:33)
[2022-02-13] MEDS: PANTOprazole 40 MG TAB PO SCH (08:33)
[2022-02-13] MEDS: DIGOXIN 0.125 MG TAB PO SCH (08:33)
[2022-02-13] MEDS: MAGNESIUM OXIDE 400 MG TAB PO SCH ×2 (08:34→21:26)
[2022-02-13] MEDS: APIXABAN 2.5 MG TAB PO SCH ×2 (08:34→21:26)
[2022-02-13] MEDS: IRON POLYSACCHARIDE COMPLEX 150 MG CAPSULE PO SCH (08:34)
[2022-02-13] MEDS: DULoxetine HCL 60 MG CAP PO SCH (08:34)
[2022-02-13] MEDS: METOPROLOL SUCC 50MG EXT REL TAB PO SCH ×2 (08:34→21:26)
[2022-02-13] MEDS: BUMETANIDE 2 MG in SYRINGE 0 ML IV SCH (08:35)
[2022-02-13] MEDS: NYSTATIN CR 15 GM TUBE EXT SCH ×3 (08:35→21:27)
[2022-02-13] MEDS: cefTRIAXone SODIUM 1,000 MG in DEXTROSE 5% 50 ML IV SCH (08:48)
[2022-02-13] MEDS: INSULIN ASPART PER UNIT SC SCH ×4 (08:49→21:29)
--- NOTE | 2022-02-13 13:18 | Hospitalist Progress Note ---
Date of Service February 13, 2022 Assessment & Plan (1) Acute on chronic heart failure with preserved ejection fraction: Plan: - 4 days of bilateral lower extremity swelling, pain, redness. - No SOB, chest pain/heaviness, palpitations, productive cough. - CXR: Cardiomegaly with no active disease in the chest. - DDx: Acute on chronic heart failure exacerbation most likely given her history, w/ concomitant venous insufficiency, DM related neuropathy. VTE less likely as she is on Eliquis chronically for a fib. 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 Reports compliance that she lives at assisted living and they watch her take her medications. Did report a check visit last month skipping evening dose due to being up all night urinating. - Echo August 2020: EF 60-65%, normal LV size and systolic function, no wall abnormalities or LVH. Severe pulmonary hypertension estimated RVSP 85 w/ moderate-severe tricuspid regurg, mild-moderate mitral regurg, mild aortic regurg. - Increase her usual Bumex dosing to 3 mg IV twice daily - TTE -LVEF 60 to 65%, moderate to severe tricuspid regurgitation, mild to moderate mitral regurgitation, no significant change to August 2020. - Dry weight ~144-145 pounds, patient weight in ED 151 pounds. - Strict I&Os, daily weights, low sodium/DM diet with 1.5 L fluid restriction. Unclear reason for her acute exacerbation at this time. She denies any change in dose, diet, no concern for CT, LFTs unremarkable compared to baseline, trace protein in urine. ?UTI contributing. (2) UTI (urinary tract infection): Plan: - UA contaminated with epithelial cells, but positive for bacteria, leuk esterase, WBCs. Patient also calling dysuria and urinary retention of the past several days. - Urine culture with gram-negative bacilli. Continue ceftriaxone 1 g IV. No blood cultures taken on admission however given no fever or white blood count will defer at this stage -notably has been bacteremic with E. coli in the past. (3) Severe pulmonary hypertension: Plan: - Noted on prior echo. Repeating echo as above. (4) CAD (coronary artery disease): Plan: - s/p PCI of the proximal LAD on 12/06/[address] Miller. - Stable, without chest pain/palpitations/pressure, shortness of breath. - Continue Imdur, metoprolol, statin, nitroglycerin as needed, Plavix. (5) Atrial fibrillation: Plan: - Permanent, asymptomatic, continue metoprolol and digoxin, Eliquis. - Dig level checked in ED, 0.8 low-normal but therapeutic. (6) Diabetes mellitus, type II: Plan: - Continue insulin glargine 28 units at night with Accu-Cheks/sliding scale insulin. - Low-sodium/diabetic diet. - Continue Cymbalta for depression/neuropathy pain. Will consult pharmacy for glycemic control during her inpatient admission (7) Chronic kidney disease (CKD): Plan: - Renal function at/about baseline. - Renally dose medications as able and avoid nephrotoxins. (8) Anemia: Plan: - Hgb 10.3, at baseline. Likely multifactorial from CKD, hemolysis (elevated t bili, LDH, retic count, low haptoglobin in 2020). ? early MDS. - Follows with CCP, last seen by Dr. Carter in December. - Deferring further workup, i.e bone marrow biopsy given age and stability. - For now, as long as Hgb remains stable, will follow up as outpt q3 months. - Continue oral iron supplementation. (9) Hypothyroidism: Plan: - Continue levothyroxine 50 mcg daily. (10) COPD (chronic obstructive pulmonary disease): Plan: - Continue albuterol as needed. - No evidence of exacerbation today. Plan - Admit to med telemetry. - SCDs ordered and encouraged, continue Eliquis for VTE PPx. - DNR/DNI. Admission and Anticipated Discharge Date Admission Date: February 12, 2022 Subjective No shortness of breath or chest pain. No significant change in leg swelling since admission. No current dysuria, fever or chills -however she reports dysuria for a week prior to admission. Review of Systems Review of Systems: All systems reviewed & are unremarkable except as noted in Subjective Physical Exam Constitutional: WD/WN, vitals as above Eyes: + anicteric sclerae; normal pupil size Respiratory: normal respiratory effort, lungs clear to auscultation Cardiovascular: Rate/Rhythm: regular rate and + irregularly irregular Heart Sounds: + murmur Extremities: + pedal edema (3+ bilateral equal pitting edema up to abdomen) Gastrointestinal (Abdomen): normal bowel sounds, soft, nontender, no hepatosplenomegaly Musculoskeletal: no cyanosis or clubbing, extremities motor strength 5/5 Skin: Venous stasis dermatitis changes bilaterally not involving the foot without significant cellulitic changes Neurologic: moves all extremities and awake; not confused Psychiatric: A+Ox3, euthymic affect Results & Data Results & Data ([facility]) Vital Signs (Past 12 Hours) Vital Signs Temp Pulse Pulse Resp BP Pulse Ox O2 Del Method 02/13/22 11:25 36.6 C 80 18 182/79 H 95 02/13/22 09:00 Room Air 02/13/22 08:33 77 02/13/22 07:48 36.3 C L 74 18 170/83 H 92 Room Air 02/13/22 07:03 66 02/13/22 04:00 36.3 C L 75 18 157/81 H 97 Room Air PG Care Time/CCT Total # of Minutes Spent Total Time Spent with Patient: Total time spent is greater than 50% in coordination of care (as documented) at patient's floor/unit and/or counseling patient: Coding Level of Care Code 90145 Subseq Hosp Care Lvl 2 Diagnoses Acute on chronic heart failure with preserved ejection fraction I50.33 UTI (urinary tract infection) N39.0 Severe pulmonary hypertension I27.20 CAD (coronary artery disease) I25.10 Atrial fibrillation I48.91 Atrial fibrillation type: unspecified Diabetes mellitus, type II E11.9 Chronic kidney disease (CKD) N18.9 Anemia D64.9 Anemia type: unspecified type Hypothyroidism E03.9 Hypothyroidism type: unspecified COPD (chronic obstructive pulmonary disease) J44.9 (1) Anemia Anemia type: unspecified type Qualified Code(s): D64.9 - Anemia, unspecified (2) Atrial fibrillation Atrial fibrillation type: unspecified Qualified Code(s): I48.91 - Unspecified atrial fibrillation (3) Hypothyroidism Hypothyroidism type: unspecified Qualified Code(s): E03.9 - Hypothyroidism, unspecified
--- NOTE | 2022-02-13 13:54 | Pharmacy Report ---
Pharmacy Glycemic Short Note 2 - Date of Service February 13, 2022 - Glycemic Short BSG Results (Last 24 hours): 02/12/22 02/12/22 02/13/22 17:01 21:18 06:37 Glucose 81 POC Glucose 136 H 196 H 02/13/22 02/13/22 07:52 11:39 Glucose POC Glucose 98 175 H OUTPATIENT ANTIDIABETIC REGIMEN: * Lantus 28 units SQ qHS * Novolog 7-10 units SQ TID with meals * HbA1c: 9.0% (12/06/21) ASSESSMENT: * Ms Porter is an 86yo diabetic F admitted with CHF exacerbation, UTI. * Pt's BSGs trended up throughout the day yesterday with hyperglycemia in the evening (BSG 196mg/dL at HS). Suspect that this is due to insufficient Novolog coverage. * Novolog parameters tightened this morning to better match outpt usage. * Will continue to monitor and adjust regimen as indicated. PLAN FOR INPATIENT GLYCEMIC CONTROL: * Hold outpatient oral diabetes medications * Basal insulin * Lantus 22 units SQ qHS * Bolus insulin * NovoLog per scale ACHS or Q6hrs while NPO * Goal Range: Low 110 mg/dL - High 140 mg/dL * Correction Factor: 25 mg/dL/unit * Nutritional / Prandial insulin per carb ratio of 1 unit per 8 grams CHO consumed
[2022-02-13] MEDS: BUMETANIDE 3 MG in SYRINGE 0 ML IV SCH (17:03)
[2022-02-13] MEDS: MIRTAZAPINE TAB 15 MG TAB PO SCH (21:26)
[2022-02-13] MEDS: LANTUS PER UNIT CHARGE SQ SCH (21:30)
[2022-02-14] MEDS: *CLOBETASOL*ORDER AWAITING ACTION SCH ×2 (01:38→08:07)
[2022-02-14] MEDS: LEVOTHYROXINE SODIUM 50 MCG TABLET PO SCH (06:00)
[2022-02-14] MEDS: CEROVITE ADV FORMULA TAB PO SCH (07:55)
[2022-02-14] MEDS: allopurinoL 300 MG TAB PO SCH (07:55)
[2022-02-14] MEDS: DULoxetine HCL 30 MG CAP PO SCH (07:55)
[2022-02-14] MEDS: ISOSORBIDE MONO EXTENDED REL 30 MG TABCR PO SCH (07:55)
[2022-02-14] MEDS: CLOPIDOGREL BISULFATE 75 MG TAB PO SCH (07:55)
[2022-02-14] MEDS: IRON POLYSACCHARIDE COMPLEX 150 MG CAPSULE PO SCH (07:55)
[2022-02-14] MEDS: PANTOprazole 40 MG TAB PO SCH (07:56)
[2022-02-14] MEDS: METOPROLOL SUCC 50MG EXT REL TAB PO SCH ×2 (07:56→21:15)
[2022-02-14] MEDS: POTASSIUM CHLORIDE 10 MEQ TABCR PO SCH ×2 (07:56→21:14)
[2022-02-14] MEDS: MAGNESIUM OXIDE 400 MG TAB PO SCH ×2 (07:56→21:16)
[2022-02-14] MEDS: CHOLECALCIFEROL 1,000 UNITS 25 MCG TAB PO SCH (07:56)
[2022-02-14] MEDS: APIXABAN 2.5 MG TAB PO SCH ×2 (07:56→21:14)
[2022-02-14] MEDS: DULoxetine HCL 60 MG CAP PO SCH (07:56)
[2022-02-14] MEDS: BUMETANIDE 3 MG in SYRINGE 0 ML IV SCH ×2 (08:03→17:22)
[2022-02-14] MEDS: cefTRIAXone SODIUM 1,000 MG in DEXTROSE 5% 50 ML IV SCH (08:04)
[2022-02-14] MEDS: NYSTATIN CR 15 GM TUBE EXT SCH ×3 (08:07→21:13)
[2022-02-14] MEDS: INSULIN ASPART PER UNIT SC SCH ×4 (08:08→21:08)
--- NOTE | 2022-02-14 11:40 | Pharmacy Report ---
Pharmacy Glycemic Short Note 2 - Date of Service February 14, 2022 - Glycemic Short BSG Results (Last 24 hours): 02/13/22 02/13/22 02/13/22 11:39 16:51 16:55 POC Glucose 175 H 129 H 126 H 02/13/22 02/14/22 02/14/22 20:20 07:39 11:31 POC Glucose 189 H 75 201 H OUTPATIENT ANTIDIABETIC REGIMEN: * Lantus 28 units SQ qHS * Novolog 7-10 units SQ TID with meals * HbA1c: 9.0% (12/06/21) ASSESSMENT: 02/14: * Fasting BSG below goal this morning and trending down -- Lantus adjusted * Pre-lunch BSG elevated today, likely because pt did not receive any carb coverage with breakfast d/t fasting BSG of 75. No changes at this time. 02/13 * Ms Porter is an 86yo diabetic F admitted with CHF exacerbation, UTI. * Pt's BSGs trended up throughout the day yesterday with hyperglycemia in the evening (BSG 196mg/dL at HS). Suspect that this is due to insufficient Novolog coverage. * Novolog parameters tightened this morning to better match outpt usage. * Will continue to monitor and adjust regimen as indicated. PLAN FOR INPATIENT GLYCEMIC CONTROL: * Hold outpatient oral diabetes medications * Basal insulin * Lantus 18 units SQ qHS * Bolus insulin * NovoLog per scale ACHS or Q6hrs while NPO * Goal Range: Low 110 mg/dL - High 140 mg/dL * Correction Factor: 25 mg/dL/unit * Nutritional / Prandial insulin per carb ratio of 1 unit per 8 grams CHO consumed
[2022-02-14 11:46] LABS: Calcium 8.9 mg/dl (8.5-10.1); Creatinine Clr Calc Pharmacy 22.5 ml/min; Est GFR (African American) 36.7 ml/min; Est GFR (Non-African American) 31.7 ml/min; Potassium 3.8 mmol/L (3.5-5.1)
--- NOTE | 2022-02-14 15:44 | Hospitalist Progress Note ---
Date of Service February 14, 2022 Assessment & Plan (1) Acute on chronic heart failure with preserved ejection fraction: Plan: - 4 days of bilateral lower extremity swelling, pain, redness. - No SOB, chest pain/heaviness, palpitations, productive cough. - CXR: Cardiomegaly with no active disease in the chest. - DDx: Acute on chronic heart failure exacerbation most likely given her history, w/ concomitant venous insufficiency, DM related neuropathy. VTE less likely as she is on Eliquis chronically for a fib. Arterial dopplers ordered in December w/o significant arterial occlusive disease, - [employer]EST [employer] Bumex 2 mg BID w/ potassium supplement. Reports compliance that she lives at assisted living and they watch her take her medications. Did report a check visit last month skipping evening dose due to being up all night urinating. - Echo August 2020: EF 60-65%, normal LV size and systolic function, no wall abnormalities or LVH. Severe pulmonary hypertension estimated RVSP 85 w/ moderate-severe tricuspid regurg, mild-moderate mitral regurg, mild aortic regurg. - Continue Bumex 3 mg IV twice daily, -ve 1196ml in last 24 hours - TTE -LVEF 60 to 65%, moderate to severe tricuspid regurgitation, mild to moderate mitral regurgitation, no significant change to August 2020. - Dry weight ~144-145 pounds, patient weight in ED 151 pounds. - Strict I&Os, daily weights, low sodium/DM diet with 1.5 L fluid restriction. Unclear reason for her acute exacerbation at this time. She denies any change in dose, diet, no concern for MN, LFTs unremarkable compared to baseline, trace protein in urine. ?UTI contributing. (2) UTI (urinary tract infection): Plan: - UA contaminated with epithelial cells, but positive for bacteria, leuk esterase, WBCs. Patient also calling dysuria and urinary retention of the past several days. - Urine culture E. coli resistant to Unasyn, ampicillin, ciprofloxacin and levofloxacin. Continue ceftriaxone 1 g IV. (3) Severe pulmonary hypertension: Plan: - Noted on prior echo. Moderate to severe tricuspid regurgitation noted on current echocardiogram with right ventricular systolic pressure elevated at greater than 60 mmHg. (4) CAD (coronary artery disease): Plan: - s/p PCI of the proximal LAD on 12/06/[address] Miller. - Stable, without chest pain/palpitations/pressure, shortness of breath. - Continue Imdur, metoprolol, statin, nitroglycerin as needed, Plavix. (5) Atrial fibrillation: Plan: - Permanent, asymptomatic, continue metoprolol and digoxin, Eliquis. - Dig level checked in ED, 0.8 low-normal but therapeutic. (6) Diabetes mellitus, type II: Plan: - Continue insulin glargine 28 units at night with Accu-Cheks/sliding scale insulin. - Low-sodium/diabetic diet. - Continue Cymbalta for depression/neuropathy pain. Appreciate pharmacy consult for glycemic control during her inpatient admission (7) Chronic kidney disease (CKD): Plan: - Renal function at/about baseline. - Renally dose medications as able and avoid nephrotoxins. (8) Anemia: Plan: - Hgb 10.3, at baseline. Likely multifactorial from CKD, hemolysis (elevated t bili, LDH, retic count, low haptoglobin in 2020). ? early MDS. - Follows with CCP, last seen by Dr. Carter in December. - Deferring further workup, i.e bone marrow biopsy given age and stability. - For now, as long as Hgb remains stable, will follow up as outpt q3 months. - Continue oral iron supplementation. (9) Hypothyroidism: Plan: - Continue levothyroxine 50 mcg daily. (10) COPD (chronic obstructive pulmonary disease): Plan: - Continue albuterol as needed. - No evidence of exacerbation today. Plan - Continued admission on med telemetry. - SCDs ordered and encouraged, continue Eliquis for VTE PPx. - DNR/DNI. Admission and Anticipated Discharge Date Admission Date: February 12, 2022 Subjective No shortness of breath or chest pain. No significant change in leg swelling since admission. No current dysuria, CVA tenderness, fever or chills. Review of Systems Review of Systems: All systems reviewed & are unremarkable except as noted in Subjective Physical Exam Constitutional: WD/WN, vitals as above Eyes: + anicteric sclerae; normal pupil size Respiratory: normal respiratory effort, lungs clear to auscultation Cardiovascular: Rate/Rhythm: regular rate and + irregularly irregular Heart Sounds: + murmur Extremities: + pedal edema (3+ bilateral equal pitting edema up to abdomen, mild wrinkling present) Gastrointestinal (Abdomen): normal bowel sounds, soft, nontender, no hepatosplenomegaly Musculoskeletal: no cyanosis or clubbing, extremities motor strength 5/5 Neurologic: moves all extremities and awake; not confused Psychiatric: A+Ox3, euthymic affect Results & Data Results & Data ([facility]) Vital Signs (Past 12 Hours) Vital Signs Temp Pulse Pulse Resp BP Pulse Ox Pulse Ox 02/14/22 14:52 82 02/14/22 12:15 36.4 C L 78 20 163/85 H 95 02/14/22 12:00 95 02/14/22 09:51 02/14/22 07:49 36.4 C L 80 20 150/75 H 93 02/14/22 07:49 66 02/14/22 04:00 36.4 C L 80 20 145/73 H 93 O2 Del Method O2 Del Method 02/14/22 14:52 02/14/22 12:15 Room Air 02/14/22 12:00 Room Air 02/14/22 09:51 Room Air 02/14/22 07:49 Room Air 02/14/22 07:49 02/14/22 04:00 Room Air PG Care Time/CCT Total # of Minutes Spent Total Time Spent with Patient: Total time spent is greater than 50% in coordination of care (as documented) at patient's floor/unit and/or counseling patient: Coding Level of Care Code 99809 Subseq Hosp Care Lvl 2 Diagnoses Acute on chronic heart failure with preserved ejection fraction I50.33 UTI (urinary tract infection) N39.0 Severe pulmonary hypertension I27.20 CAD (coronary artery disease) I25.10 Atrial fibrillation I48.91 Atrial fibrillation type: unspecified Diabetes mellitus, type II E11.9 Chronic kidney disease (CKD) N18.9 Anemia D64.9 Anemia type: unspecified type Hypothyroidism E03.9 Hypothyroidism type: unspecified COPD (chronic obstructive pulmonary disease) J44.9 (1) Anemia Anemia type: unspecified type Qualified Code(s): D64.9 - Anemia, unspecified (2) Atrial fibrillation Atrial fibrillation type: unspecified Qualified Code(s): I48.91 - Unspecified atrial fibrillation (3) Hypothyroidism Hypothyroidism type: unspecified Qualified Code(s): E03.9 - Hypothyroidism, unspecified
[2022-02-14] MEDS: LANTUS PER UNIT CHARGE SQ SCH (21:08)
[2022-02-14] MEDS: MIRTAZAPINE TAB 15 MG TAB PO SCH (21:13)
[2022-02-15] MEDS: ACETAMINOPHEN 325 MG TAB PO PRN (00:57)
--- NOTE | 2022-02-15 01:03 | Communication Note ---
Date of Service: February 15, 2022 assisted fall while walking to bathroom. L hip pain, 5-6/10 after tylenol. + some L hip ttp. neg gustavo ordered lidocaine cream. defer xr L hip for now
[2022-02-15] MEDS: LIDOCAINE 5% OINT 30 GM TUBE EXT PRN ×3 (02:46→19:41)
[2022-02-15] MEDS: LEVOTHYROXINE SODIUM 50 MCG TABLET PO SCH (05:37)
[2022-02-15 06:33] LABS: BUN Creatinine Ratio 23.3 (10-20); Creatinine Clr Calc Pharmacy 17.1 ml/min; Est GFR (African American) 27.8 ml/min; Est GFR (Non-African American) 23.9 ml/min; Potassium 3.6 mmol/L (3.5-5.1)
[2022-02-15] MEDS: NYSTATIN CR 15 GM TUBE EXT SCH ×3 (08:22→21:07)
[2022-02-15] MEDS: MAGNESIUM OXIDE 400 MG TAB PO SCH ×2 (08:23→21:06)
[2022-02-15] MEDS: METOPROLOL SUCC 50MG EXT REL TAB PO SCH ×2 (08:23→21:06)
[2022-02-15] MEDS: CHOLECALCIFEROL 1,000 UNITS 25 MCG TAB PO SCH (08:23)
[2022-02-15] MEDS: DULoxetine HCL 60 MG CAP PO SCH (08:23)
[2022-02-15] MEDS: DULoxetine HCL 30 MG CAP PO SCH (08:23)
[2022-02-15] MEDS: POTASSIUM CHLORIDE 10 MEQ TABCR PO SCH ×2 (08:24→21:07)
[2022-02-15] MEDS: APIXABAN 2.5 MG TAB PO SCH ×2 (08:24→21:06)
[2022-02-15] MEDS: allopurinoL 300 MG TAB PO SCH (08:24)
[2022-02-15] MEDS: IRON POLYSACCHARIDE COMPLEX 150 MG CAPSULE PO SCH (08:24)
[2022-02-15] MEDS: CLOPIDOGREL BISULFATE 75 MG TAB PO SCH (08:24)
[2022-02-15] MEDS: PANTOprazole 40 MG TAB PO SCH (08:24)
[2022-02-15] MEDS: DIGOXIN 0.125 MG TAB PO SCH (08:24)
[2022-02-15] MEDS: CEROVITE ADV FORMULA TAB PO SCH (08:24)
[2022-02-15] MEDS: cefTRIAXone SODIUM 1,000 MG in DEXTROSE 5% 50 ML IV SCH (08:25)
[2022-02-15] MEDS: INSULIN ASPART PER UNIT SC SCH ×4 (08:25→21:07)
[2022-02-15] MEDS: ISOSORBIDE MONO EXTENDED REL 30 MG TABCR PO SCH (09:08)
--- NOTE | 2022-02-15 17:44 | XRay Report ---
XR hip LT 2V w pelvis CLINICAL HISTORY: left hip pain following fall COMPARISON STUDY: Pelvis 08/03/2020. FINDINGS: No fracture or dislocation within the pelvis or hips. A sacral stimulator device is again n oted. Soft tissues are unremarkable. Mild degenerative changes within the bilateral hips. IMPRESSION: No fracture or dislocation within the pelvis or hips. ACT 112: Negative or not required by law. Electronically signed by: Lucius Tate M.D. 02/15/2022 5:42 PM
--- NOTE | 2022-02-15 19:19 | Hospitalist Progress Note ---
Date of Service February 15, 2022 Assessment & Plan (1) Acute on chronic heart failure with preserved ejection fraction: Plan: - 4 days of bilateral lower extremity swelling, pain, redness. - No SOB, chest pain/heaviness, palpitations, productive cough. - CXR: Cardiomegaly with no active disease in the chest. - DDx: Acute on chronic heart failure exacerbation most likely given her history, w/ concomitant venous insufficiency, DM related neuropathy. VTE less likely as she is on Eliquis chronically for a fib. Arterial dopplers ordered in December w/o significant arterial occlusive disease, - [employer] Bumex 2 mg BID w/ potassium supplement. Reports compliance that she lives at assisted living and they watch her take her medications. Did report a check visit last month skipping evening dose due to being up all night urinating. - Echo August 2020: EF 60-65%, normal LV size and systolic function, no wall abnormalities or LVH. Severe pulmonary hypertension estimated RVSP 85 w/ moderate-severe tricuspid regurg, mild-moderate mitral regurg, mild aortic regurg. - Given increase in Cr will hold her Bumex today and repeat tomorrow. I suspect because her heart failure is mainly right sided we have reached her limit on diuresis. - TTE -LVEF 60 to 65%, moderate to severe tricuspid regurgitation, mild to moderate mitral regurgitation, no significant change to August 2020. - Dry weight ~144-145 pounds, patient weight in ED 151 pounds. - Strict I&Os, daily weights, low sodium/DM diet with 1.5 L fluid restriction. Unclear reason for her acute exacerbation at this time. She denies any change in dose, diet, no concern for ME, LFTs unremarkable compared to baseline, trace protein in urine. ?UTI contributing. (2) UTI (urinary tract infection): Plan: - UA contaminated with epithelial cells, but positive for bacteria, leuk esterase, WBCs. Patient also calling dysuria and urinary retention of the past several days. - Urine culture E. coli resistant to Unasyn, ampicillin, ciprofloxacin and levo floxacin. Continue ceftriaxone 1 g IV. (3) Severe pulmonary hypertension: Plan: - Noted on prior echo. Moderate to severe tricuspid regurgitation noted on current echocardiogram with right ventricular systolic pressure elevated at greater than 60 mmHg. (4) CAD (coronary artery disease): Plan: - s/p PCI of the proximal LAD on 12/06/[address] Miller. - Stable, without chest pain/palpitations/pressure, shortness of breath. - Continue Imdur, metoprolol, statin, nitroglycerin as needed, Plavix. (5) Atrial fibrillation: Plan: - Permanent, asymptomatic, continue metoprolol and digoxin, Eliquis. - Dig level checked in ED, 0.8 low-normal but therapeutic. (6) Diabetes mellitus, type II: Plan: - Continue insulin glargine 28 units at night with Accu-Cheks/sliding scale insulin. - Low-sodium/diabetic diet. - Continue Cymbalta for depression/neuropathy pain. Appreciate pharmacy consult for glycemic control during her inpatient admission (7) Chronic kidney disease (CKD): Plan: - Renal function at/about baseline. - Renally dose medications as able and avoid nephrotoxins. (8) Anemia: Plan: - Hgb 10.3, at baseline. Likely multifactorial from CKD, hemolysis (elevated t bili, LDH, retic count, low haptoglobin in 2020). ? early MDS. - Follows with CCP, last seen by Dr. Carter in December. - Deferring further workup, i.e bone marrow biopsy given age and stability. - For now, as long as Hgb remains stable, will follow up as outpt q3 months. - Continue oral iron supplementation. (9) Hypothyroidism: Plan: - Continue levothyroxine 50 mcg daily. (10) COPD (chronic obstructive pulmonary disease): Plan: - Continue albuterol as needed. - No evidence of exacerbation today. (11) Left hip pain: Plan: No pain on int/ext rotation of her hip. Appear to be more lateral than groin. L ow suspicion of hip fracture but will get XR to assess for pelvic/hip #. Plan - Continued admission on med telemetry. - SCDs ordered and encouraged, continue Eliquis for VTE PPx. - DNR/DNI. Admission and Anticipated Discharge Date Admission Date: February 12, 2022 Subjective No shortness of breath or chest pain. No significant change in leg swelling since admission. No current dysuria, CVA tenderness, fever or chills. Main concern today is lateral hip pain. Worse on palpation. No worse on hip internal/external rotation. Started after assisted fall while walking to the bathroom. Review of Systems Review of Systems: All systems reviewed & are unremarkable except as noted in Subjective Physical Exam Constitutional: WD/WN, vitals as above Eyes: + anicteric sclerae; normal pupil size Respiratory: normal respiratory effort, lungs clear to auscultation Cardiovascular: Rate/Rhythm: regular rate and + irregularly irregular Heart Sounds: + murmur Extremities: + pedal edema (2+ bilateral equal pitting pre- tibial, mild wrinkling present) Gastrointestinal (Abdomen): normal bowel sounds, soft, nontender, no hepatosplenomegaly Musculoskeletal: no cyanosis or clubbing, extremities motor strength 5/5 No hip pain on int/ext rotation of left hip. Tender to palpation over the lateral left hip. Neurologic: moves all extremities and awake; not confused Psychiatric: A+Ox3, euthymic affect Results & Data Results & Data ([facility]) Vital Signs (Past 12 Hours) Vital Signs Temp Pulse Pulse Resp BP BP Pulse Ox 02/15/22 14:17 73 02/15/22 15:25 36.4 C L 79 20 130/69 97 02/15/22 11:24 36.5 C 72 20 144/62 H 94 02/15/22 07:35 02/15/22 08:24 74 02/15/22 07:53 36.5 C 74 20 169/93 H 97 O2 Del Method 02/15/22 14:17 02/15/22 15:25 Room Air 02/15/22 11:24 Room Air 02/15/22 07:35 Room Air 02/15/22 08:24 02/15/22 07:53 Room Air PG Care Time/CCT Total # of Minutes Spent Total Time Spent with Patient: Total time spent is greater than 50% in coordination of care (as documented) at patient's floor/unit and/or counseling patient: Coding Level of Care Code 88451 Subseq Hosp Care Lvl 2 Diagnoses Acute on chronic heart failure with preserved ejection fraction I50.33 UTI (urinary tract infection) N39.0 Severe pulmonary hypertension I27.20 CAD (coronary artery disease) I25.10 Atrial fibrillation I48.91 Atrial fibrillation type: unspecified Diabetes mellitus, type II E11.9 Chronic kidney disease (CKD) N18.9 Anemia D64.9 Anemia type: unspecified type Hypothyroidism E03.9 Hypothyroidism type: unspecified COPD (chronic obstructive pulmonary disease) J44.9 Left hip pain M25.552 (1) Anemia Anemia type: unspecified type Qualified Code(s): D64.9 - Anemia, unspecified (2) Atrial fibrillation Atrial fibrillation type: unspecified Qualified Code(s): I48.91 - Unspecified atrial fibrillation (3) Hypothyroidism Hypothyroidism type: unspecified Qualified Code(s): E03.9 - Hypothyroidism, unspecified
[2022-02-15] MEDS ORDERED: diphenhydrAMINE Capsule 25 MG CAP PO ONE (19:31)
[2022-02-15] MEDS: MIRTAZAPINE TAB 15 MG TAB PO SCH (21:06)
[2022-02-15] MEDS: LANTUS PER UNIT CHARGE SQ SCH (21:08)
[2022-02-16] MEDS: LEVOTHYROXINE SODIUM 50 MCG TABLET PO SCH (05:43)
[2022-02-16 07:26] LABS: BUN Creatinine Ratio 31.6 (10-20); Calcium 9.1 mg/dl (8.5-10.1); Creatinine Clr Calc Pharmacy 18.6 ml/min; Est GFR (African American) 30.7 ml/min; Est GFR (Non-African American) 26.5 ml/min; Potassium 4.5 mmol/L (3.5-5.1)
[2022-02-16] MEDS: INSULIN ASPART PER UNIT SC SCH ×4 (08:24→21:38)
[2022-02-16] MEDS: cefTRIAXone SODIUM 1,000 MG in DEXTROSE 5% 50 ML IV SCH (08:25)
[2022-02-16] MEDS: ISOSORBIDE MONO EXTENDED REL 30 MG TABCR PO SCH (08:27)
[2022-02-16] MEDS: CLOPIDOGREL BISULFATE 75 MG TAB PO SCH (08:27)
[2022-02-16] MEDS: DULoxetine HCL 60 MG CAP PO SCH (08:28)
[2022-02-16] MEDS: CEROVITE ADV FORMULA TAB PO SCH (08:28)
[2022-02-16] MEDS: IRON POLYSACCHARIDE COMPLEX 150 MG CAPSULE PO SCH (08:28)
[2022-02-16] MEDS: APIXABAN 2.5 MG TAB PO SCH ×2 (08:28→21:39)
[2022-02-16] MEDS: allopurinoL 300 MG TAB PO SCH (08:28)
[2022-02-16] MEDS: POTASSIUM CHLORIDE 10 MEQ TABCR PO SCH ×2 (08:28→21:38)
[2022-02-16] MEDS: CHOLECALCIFEROL 1,000 UNITS 25 MCG TAB PO SCH (08:28)
[2022-02-16] MEDS: MAGNESIUM OXIDE 400 MG TAB PO SCH ×2 (08:28→21:39)
[2022-02-16] MEDS: NYSTATIN CR 15 GM TUBE EXT SCH ×3 (08:28→21:40)
[2022-02-16] MEDS: DULoxetine HCL 30 MG CAP PO SCH (08:28)
[2022-02-16] MEDS: PANTOprazole 40 MG TAB PO SCH (08:28)
[2022-02-16] MEDS: METOPROLOL SUCC 50MG EXT REL TAB PO SCH ×2 (08:28→21:39)
[2022-02-16] MEDS: LIDOCAINE 5% OINT 30 GM TUBE EXT PRN ×2 (08:29→21:42)
--- NOTE | 2022-02-16 19:53 | Hospitalist Progress Note ---
Date of Service February 16, 2022 Assessment & Plan (1) Acute on chronic heart failure with preserved ejection fraction: Plan: - 4 days of bilateral lower extremity swelling, pain, redness. - No SOB, chest pain/heaviness, palpitations, productive cough. - CXR: Cardiomegaly with no active disease in the chest. - DDx: Acute on chronic heart failure exacerbation most likely given her history, w/ concomitant venous insufficiency, DM related neuropathy. VTE less likely as she is on Eliquis chronically for a fib. 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 Reports compliance that she lives at assisted living and they watch her take her medications. Did report a check visit last month skipping evening dose due to being up all night urinating. - Echo August 2020: EF 60-65%, normal LV size and systolic function, no wall abnormalities or LVH. Severe pulmonary hypertension estimated RVSP 85 w/ moderate-severe tricuspid regurg, mild-moderate mitral regurg, mild aortic regurg. - Will continue to hold off diuretics and watch Cr - TTE -LVEF 60 to 65%, moderate to severe tricuspid regurgitation, mild to moderate mitral regurgitation, no significant change to August 2020. - Dry weight ~144-145 pounds, patient weight in ED 151 pounds. - Strict I&Os, daily weights, low sodium/DM diet with 1.5 L fluid restriction. Unclear reason for her acute exacerbation at this time. She denies any change in dose, diet, no concern for MA, LFTs unremarkable compared to baseline, trace protein in urine. ?UTI contributing. (2) UTI (urinary tract infection): Plan: - UA contaminated with epithelial cells, but positive for bacteria, leuk esterase, WBCs. Patient also calling dysuria and urinary retention of the past several days. - Urine culture E. coli resistant to Unasyn, ampicillin, ciprofloxacin and levofloxacin. Continue ceftriaxone 1 g IV. (3) Severe pulmonary hypertension: Plan: - Noted on prior echo. Moderate to severe tricuspid regurgitation noted on current echocardiogram with right ventricular systolic pressure elevated at greater than 60 mmHg. (4) CAD (coronary artery disease): Plan: - s/p PCI of the proximal LAD on 12/06/[address] Miller. - Stable, without chest pain/palpitations/pressure, shortness of breath. - Continue Imdur, metoprolol, statin, nitroglycerin as needed, Plavix. (5) Atrial fibrillation: Plan: - Permanent, asymptomatic, continue metoprolol and digoxin, Eliquis. - Dig level checked in ED, 0.8 low-normal but therapeutic. (6) Diabetes mellitus, type II: Plan: - Continue insulin glargine 28 units at night with Accu-Cheks/sliding scale insulin. - Low-sodium/diabetic diet. - Continue Cymbalta for depression/neuropathy pain. Appreciate pharmacy consult for glycemic control during her inpatient admission (7) Chronic kidney disease (CKD): Plan: - Renal function at/about baseline. - Renally dose medications as able and avoid nephrotoxins. (8) Anemia: Plan: - Hgb 10.3, at baseline. Likely multifactorial from CKD, hemolysis (elevated t bili, LDH, retic count, low haptoglobin in 2020). ? early MDS. - Follows with CCP, last seen by Dr. Carter in December. - Deferring further workup, i.e bone marrow biopsy given age and stability. - For now, as long as Hgb remains stable, will follow up as outpt q3 months. - Continue oral iron supplementation. (9) Hypothyroidism: Plan: - Continue levothyroxine 50 mcg daily. (10) COPD (chronic obstructive pulmonary disease): Plan: - Continue albuterol as needed. - No evidence of exacerbation today. (11) Left hip pain: Plan: No pain on int/ext rotation of her hip. Appear to be more lateral than groin. Low suspicion of hip fracture but will get XR to assess for pelvic/hip #. Plan - Continued admission on med telemetry. - SCDs ordered and encouraged, continue Eliquis for VTE PPx. - DNR/DNI. Admission and Anticipated Discharge Date Admission Date: February 12, 2022 Subjective Improvement in hip pain. No worsening leg swelling with holding her diuretics. No shortness of breath or chest pain. Review of Systems Review of Systems: All systems reviewed & are unremarkable except as noted in Subjective Physical Exam Constitutional: WD/WN, vitals as above Eyes: + anicteric sclerae; normal pupil size Respiratory: normal respiratory effort, lungs clear to auscultation Cardiovascular: Rate/Rhythm: regular rate and + irregularly irregular Heart Sounds: + murmur Extremities: + pedal edema (2+ bilateral equal pitting pre-tibial, mild wrinkling present) Gastrointestinal (Abdomen): normal bowel sounds, soft, nontender, no hepatosplenomegaly Musculoskeletal: no cyanosis or clubbing, extremities motor strength 5/5 No hip pain on int/ext rotation of left hip. Tender to palpation over the lateral left hip. Neurologic: moves all extremities and awake; not confused Psychiatric: A+Ox3, euthymic affect Results & Data Results & Data ([facility]) Vital Signs (Past 12 Hours) Vital Signs Temp Pulse Pulse Pulse Resp BP BP 02/16/22 16:00 70 02/16/22 15:03 36.6 C 73 18 138/82 02/16/22 12:00 36.4 C L 68 17 140/72 02/16/22 08:00 36.5 C 74 17 139/84 Pulse Ox O2 Del Method 02/16/22 16:00 02/16/22 15:03 93 Room Air 02/16/22 12:00 99 Room Air 02/16/22 08:00 92 Room Air PG Care Time/CCT Total # of Minutes Spent Total Time Spent with Patient: Total time spent is greater than 50% in coordination of care (as documented) at patient's floor/unit and/or counseling patient: Coding Level of Care Code 59945 Subseq Hosp Care Lvl 1 Diagnoses Acute on chronic heart failure with preserved ejection fraction I50.33 UTI (urinary tract infection) N39.0 Severe pulmonary hypertension I27.20 CAD (coronary artery disease) I25.10 Atrial fibrillation I48.91 Atrial fibrillation type: unspecified Diabetes mellitus, type II E11.9 Chronic kidney disease (CKD) N18.9 Anemia D64.9 Anemia type: unspecified type Hypothyroidism E03.9 Hypothyroidism type: unspecified COPD (chronic obstructive pulmonary disease) J44.9 Left hip pain M25.552 (1) Anemia Anemia type: unspecified type Qualified Code(s): D64.9 - Anemia, unspecified (2) Atrial fibrillation Atrial fibrillation type: unspecified Qualified Code(s): I48.91 - Unspecified atrial fibrillation (3) Hypothyroidism Hypothyroidism type: unspecified Qualified Code(s): E03.9 - Hypothyroidism, unspecified
[2022-02-16] MEDS ORDERED: LANTUS PER UNIT CHARGE SQ SCH (21:00)
[2022-02-16] MEDS: MIRTAZAPINE TAB 15 MG TAB PO SCH (21:39)
[2022-02-17] MEDS: LEVOTHYROXINE SODIUM 50 MCG TABLET PO SCH (05:39)
[2022-02-17 08:26] LABS: BUN Creatinine Ratio 31.5 (10-20); Calcium 9.2 mg/dl (8.5-10.1); Creatinine Clr Calc Pharmacy 19.6 ml/min; Est GFR (African American) 32.7 ml/min; Est GFR (Non-African American) 28.2 ml/min; Potassium 4.5 mmol/L (3.5-5.1)
[2022-02-17] MEDS: CHOLECALCIFEROL 1,000 UNITS 25 MCG TAB PO SCH (08:44)
[2022-02-17] MEDS: CEROVITE ADV FORMULA TAB PO SCH (08:44)
[2022-02-17] MEDS: CLOPIDOGREL BISULFATE 75 MG TAB PO SCH (08:44)
[2022-02-17] MEDS: DULoxetine HCL 60 MG CAP PO SCH (08:44)
[2022-02-17] MEDS: DULoxetine HCL 30 MG CAP PO SCH (08:45)
[2022-02-17] MEDS: ISOSORBIDE MONO EXTENDED REL 30 MG TABCR PO SCH (08:45)
[2022-02-17] MEDS: PANTOprazole 40 MG TAB PO SCH (08:45)
[2022-02-17] MEDS: DIGOXIN 0.125 MG TAB PO SCH (08:45)
[2022-02-17] MEDS: APIXABAN 2.5 MG TAB PO SCH (08:46)
[2022-02-17] MEDS: allopurinoL 300 MG TAB PO SCH (08:46)
[2022-02-17] MEDS: POTASSIUM CHLORIDE 10 MEQ TABCR PO SCH (08:46)
[2022-02-17] MEDS: METOPROLOL SUCC 50MG EXT REL TAB PO SCH (08:46)
[2022-02-17] MEDS: IRON POLYSACCHARIDE COMPLEX 150 MG CAPSULE PO SCH (08:47)
[2022-02-17] MEDS: MAGNESIUM OXIDE 400 MG TAB PO SCH (08:47)
[2022-02-17] MEDS: NYSTATIN CR 15 GM TUBE EXT SCH ×2 (08:47→13:24)
[2022-02-17] MEDS: cefTRIAXone SODIUM 1,000 MG in DEXTROSE 5% 50 ML IV SCH (08:54)
[2022-02-17] MEDS: INSULIN ASPART PER UNIT SC SCH ×2 (08:54→12:36)
--- NOTE | 2022-02-17 14:07 | Pharmacy Report ---
Pharmacy Glycemic Short Note 2 - Date of Service February 17, 2022 - Glycemic Short BSG Results (Last 24 hours): 02/16/22 02/16/22 02/17/22 16:28 20:50 06:39 Glucose 84 POC Glucose 80 126 H 02/17/22 02/17/22 07:39 11:34 Glucose POC Glucose 104 H 154 H OUTPATIENT ANTIDIABETIC REGIMEN: * Lantus 28 units SQ qHS * Novolog 7-10 units SQ TID with meals * HbA1c: 9.0% (12/06/21) ASSESSMENT: 02/17/22 * BSGs yesterday were 471-530-11-126 mg/dL. Patient received 40 units of insulin (20 units of basal and 20 units of bolus). * Fasting today is 104 mg/dL which is appropriate. Continue 20 units of Lantus HS. * Loosen CF of Novolog because patient's overcorrected from lunch to dinner. Otherwise continue Novolog. 02/14: * Fasting BSG below goal this morning and trending down -- Lantus adjusted * Pre-lunch BSG elevated today, likely because pt did not receive any carb coverage with breakfast d/t fasting BSG of 75. No changes at this time. 02/13 * Ms Porter is an 86yo diabetic F admitted with CHF exacerbation, UTI. * Pt's BSGs trended up throughout the day yesterday with hyperglycemia in the evening (BSG 196mg/dL at HS). Suspect that this is due to insufficient Novolog coverage. * Novolog parameters tightened this morning to better match outpt usage. * Will continue to monitor and adjust regimen as indicated. PLAN FOR INPATIENT GLYCEMIC CONTROL: * Hold outpatient oral diabetes medications * Basal insulin * Lantus 20 units SQ qHS * Bolus insulin * NovoLog per scale ACHS or Q6hrs while NPO * Goal Range: Low 110 mg/dL - High 140 mg/dL * Correction Factor: 35 mg/dL/unit * Nutritional / Prandial insulin per carb ratio of 1 unit per 8 grams CHO consumed
[2022-02-17 15:18] LABS: Hematocrit (blood only) 31.2 % (34.1-44.9); Hemoglobin 9.5 g/dl (12.0-16.0); Mean Corpuscular Hemoglobin 33.7 pg (25.0-34.0); Mean Corpuscular Hgb Conc 30.4 g/dL (32.0-36.0); Mean Corpuscular Volume 110.6 fL (80.0-100.0); RDW Coefficient of Variation 21.4 % (11.5-14.5); RDW Standard Deviation 83.4 fL (36.4-46.3); Red Blood Count 2.82 M/uL (3.93-5.22); White Blood Count 5.78 K/ul (4.8-10.8)
--- NOTE | 2022-02-17 16:14 | Discharge Summary ---
Date of Service February 17, 2022 Admission HPI Per Admitting Provider Tiffanie Porter is an 86-year-old female with past medical history significant for CAD, diastolic heart failure, a fib, asthma, COPD, diabetes, CKD, GERD, GI bleed, anemia, hypothyroidism, BETHANY who presents today with leg swelling x 4 days. She noticed prior to Thursday they had gradually become larger until Thursday when they were very large and heavy, making ambulation difficult. They are more red than usual and have been weeping fluids, left more than right. At baseline they are very painful, which is unchanged today. No recent falls or injuries to the legs or elsewhere. No fever/chills, myalgias, fatigue, or weakness, shortness of breath, chest pain, palpitations, or cough. She has noted decreased urination and some mild dysuria over the past few days. She lives at [facility] where staff administers medications, so she stated compliance with her Bumex and all other mediations. Reports her dry weight is 144-145 lbs, unsure when she was last weighed. Upon presentation, patient's vital signs within normal limits, stable. Labs remarkable for BNP of 833, otherwise largely unrevealing, her anemia is at baseline, renal function at baseline, troponin mildly elevated to 26, total bilirubin 2.1, which is chronically elevated. UA with >30 epithelial cells, with WBCs, bacteria, leuk esterase. Chest x-ray with cardiomegaly, no active chest disease. Principal Diagnosis Urine tract infection Acute on chronic heart failure with preserved ejection fraction Discharge Exam Constitutional WD/WN, vitals as above Eyes + anicteric sclerae; normal pupil size Respiratory normal respiratory effort, lungs clear to auscultation Cardiovascular Rate/Rhythm: regular rate and + irregularly irregular Heart Sounds: + murmur Extremities: + pedal edema (2+ bilateral equal pitting pre-tibial, mild wrinkling present) Gastrointestinal (Abdomen) normal bowel sounds, soft, nontender, no hepatosplenomegaly Musculoskeletal no cyanosis or clubbing, extremities motor strength 5/5 Neurologic moves all extremities and awake; not confused Psychiatric A+Ox3, euthymic affect Discharge Data Allergies Allergy/AdvReac Type Severity Reaction Status Date / Time shellfish derived Allergy Severe ANAPHYLAXIS Verified 02/24/22 13:18 iodine Allergy Intermediate ANAPHYLAXIS Verified 02/24/22 13:18 lisinopril Allergy Unknown Unknown Verified 02/24/22 13:18 oxybutynin [From Ditropan] Allergy Unknown Unknown Verified 02/24/22 13:18 sertraline [From Zoloft] Allergy Unknown Unknown Verified 02/24/22 13:18 paroxetine AdvReac Mild GI UPSET Verified 02/24/22 13:18 Consultations 02/12/22 10:28 ED Decision to Admit Stat Hospital Course (1) Acute on chronic heart failure with preserved ejection fraction: Tiffanie Porter is an 86 year old female admitted to [facility] from February 12 to 2021 due to leg swelling and painful urination. She was diagnosed with acute on chronic heart failure and a urine tract infection. She was treated with an increased dose and her diuretics and was over diuresed causing worsening renal function. On discussion with her heart failure nurse practitioner she will return to her usual diuretic dosing on discharge of Bumex 2 mg twice daily. Her remaining leg swelling is suspected to be venous insufficiency. Urine culture grew E. coli treated with ceftriaxone during her inpatient stay. No blood cultures were taken. Recommend continuing on cefdinir for total 14-day course (8 further days) given recurrent infections and previous bacteremia. (2) UTI (urinary tract infection): (3) Severe pulmonary hypertension: (4) CAD (coronary artery disease): (5) Atrial fibrillation: (6) Diabetes mellitus, type II: (7) Chronic kidney disease (CKD): (8) Anemia: (9) Hypothyroidism: (10) COPD (chronic obstructive pulmonary disease): (11) Left hip pain: Total Time Total Time Spent Total Time Spent (In Minutes): 35 Discharge Plan Discharge Items Patient Disposition: Personal Fdc Reason For Visit: CHF Discharge Diagnosis: Urine tract infection Acute on chronic heart failure with preserved ejection fraction Activity: Resume your previous activity Non-emergency contact: Primary Care Provider Call non-emergency contact if: you have any medication questions and your symptoms worsen Follow-up/Referrals: Domi Wetzel DO [Primary Care Provider] - Madelaine Rothman PA-C [Physician Food And Beverage Checker] - 02/24/22 2:00 pm Diet: Carb Consistent or DM2 and Low Sodium (2gm) Fluids: 1500ml (6 cups) Addtl Attending Provider Instructions: You were admitted to [facility] from February 12 to 2021 due to leg swelling and painful urination. You were diagnosed with acute on chronic heart failure and urine tract infection. You were treated with an incre ased dose and your diuretics and was over diuresed causing worsening renal function. Recommend returning on your usual diuretic dosing on discharge of Bumex 2 mg twice daily. Urine culture grew E. coli. Recommend continuing on cefdinir for total 14-day course (8 further days) given recurrent infections and previous bacteremia. Pending Studies at Discharge: No Stand-Alone Forms: My [facility], Smoking Cessation Skilled Items Patient informed of condition?: Yes DNR: Yes Discharge Level of Care: Other Communicable Disease: No Discharge Prognosis: Stable Lines: None Urinary Catheter: No Medications and DC Order Prescriptions: Continued cholecalciferol (vitamin D3) [Vitamin D3] 25 mcg (1,000 unit) tablet 2,000 unit PO QAM allopurinol [Zyloprim] 100 mg tablet 300 mg PO QAM Qty: 90 1RF Eliquis 2.5 mg tablet 2.5 mg PO BID Qty: 180 1RF bumetanide 2 mg tablet 2 mg PO BID Qty: 60 5RF clopidogrel [Plavix] 75 mg tablet 75 mg PO QAM Qty: 90 1RF digoxin [Digitek] 125 mcg (0.125 mg) tablet 125 mcg PO Q2D Qty: 15 3RF duloxetine [Cymbalta] 30 mg capsule,delayed release(DR/EC) 30 mg PO QAM Qty: 90 1RF Rx Instructions: take in addition to 60 mg cap for total dose of 90 mg per day duloxetine [Cymbalta] 60 mg capsule,delayed release(DR/EC) 60 mg PO QAM Qty: 90 1RF Rx Instructions: take in addition to 30 mg cap for total daily dose of 90 mg per day isosorbide mononitrate 30 mg tablet extended release 24 hr 30 mg PO QAM Qty: 90 1RF levothyroxine [Synthroid] 50 mcg tablet 50 mcg PO DAILYBB Qty: 30 5RF magnesium oxide 400 mg magnesium tablet 400 mg PO BID Qty: 180 1RF metoprolol succinate [Toprol XL] 50 mg tablet extended release 24 hr 150 mg PO BID Qty: 540 3RF mirtazapine [Remeron] 15 mg tablet 15 mg PO HS Qty: 30 5RF pantoprazole [Protonix] 40 mg tablet,delayed release (DR/EC) 40 mg PO QAM Qty: 90 1RF polysaccharide iron complex [Ferrex 150] 150 mg iron capsule 150 mg PO QAM Qty: 90 1RF potassium chloride [K-Tab] 20 mEq tablet extended release 10 meq PO BID Qty: 180 1RF insulin glargine [Lantus Solostar U-100 Insulin] 100 unit/mL (3 mL) insulin pen 28 unit subcut HS Qty: 15 3RF Glucagon Emergency Kit (human) 1 mg recon soln 1 mg subcut Q20M PRN (Reason: hypoglycemia) Qty: 1 5RF Rx Instructions: until target blood sugar attained nystatin 100,000 unit/gram cream 1 applic topical TID 14 Days Qty: 30 0RF Rx Instructions: until area healed insulin aspart U-100 [Novolog Flexpen U-100 Insulin] 100 unit/mL (3 mL) insulin pen 7 - 10 unit subcut TIDM Qty: 45 1RF nitroglycerin 0.3 mg tablet, sublingual 0.3 mg sublingual Q5M PRN (Reason: Chest Pain) Rx Instructions: do not exceed 3 doses per episode polyethylene glycol 3350 [Miralax] 17 gram/dose powder 8.5 g PO DAILY PRN (Reason: Constipation) acetaminophen 500 mg tablet 1,000 mg PO .QHS PreserVision Lutein 226 mg-200 unit -5 mg-0.8 mg Capsule 1 cap PO BID No Action clobetasol 0.05 % cream 1 applic topical BID Qty: 30 1RF Discharge Orders: Discharge Order (Routine); Ordered 02/17/22 Ordered By: Dm Tsang Admission Data Admit Date/Time: 02/12/22 10:48 Attending Provider: Dm Tsang Admit Provider: Surjit Villafuerte Primary Care Provider: Domi Wetzel Other Providers: Surjit Villafuerte Other Interventions: Discharge Summary Assessment (RN) Last Done: 02/17/22 16:24 Coding Level of Care Code D/C DAY MANAGEMENT >30 MINS Diagnoses Acute on chronic heart failure with preserved ejection fraction I50.33 UTI (urinary tract infection) N39.0 Severe pulmonary hypertension I27.20 CAD (coronary artery disease) I25.10 Atrial fibrillation I48.91 Atrial fibrillation type: unspecified Diabetes mellitus, type II E11.9 Chronic kidney disease (CKD) N18.9 Anemia D64.9 Anemia type: unspecified type Hypothyroidism E03.9 Hypothyroidism type: unspecified COPD (chronic obstructive pulmonary disease) J44.9 Left hip pain M25.552
[2022-02-17 16:19] LABS: Basophils # (auto) 0.03 K/uL (0-0.2); Basophils % (auto) 0.5 %; Eosinophils # (auto) 0.34 K/uL (0-0.50); Eosinophils % (auto) 5.9 %; Immature Granulocytes # (auto) 0.03 K/uL (0.00-0.02); Immature Granulocytes % (auto) 0.5 %; Lymphocytes # (auto) 0.63 K/uL (1.2-3.4); Lymphocytes % (auto) 10.9 %; Mean Platelet Volume 13.1 fL (9.4-12.3); Monocytes # (auto) 0.56 K/uL (0.24-0.82); Monocytes % (auto) 9.7 %; Neutrophils # (auto) 4.19 K/uL (1.4-6.5); Neutrophils % (auto) 72.5 %; Ovalocytes 2+; Platelet Count 192 K/uL (130-400); Schistocytes 1+; Tear Drop Cells 1+
== END 2022-02-17 17:51 | disposition home or self-care (01) | DRG 689 ==
LOC: ED 08:37 → SUATTDRO 10:48 → 2N 10:48

== ENCOUNTER 2022-03-02 15:37 | Inpatient (IN) ==
--- NOTE | 2022-03-02 16:03 | Emergency Department Note ---
Impression & Plan Cardiac volume overload, CKD (chronic kidney disease), Anemia, A-fib, Acute leg pain ED Provider Note NAME: JULIO C FAULKNER AGE: 86 SEX: F : 1935 ARRIVES VIA: Ambulance INFORMANT: Patient, ED PROVIDER(S): Elliot Villasenor MD Chief Complaint: Leg swelling and pain HPI: Patient presents due to concern for leg swelling and pain. The patient does have a known history of CHF for which she has been treated with Melanimauro Rothman in the heart failure clinic. The patient is had some issues with her diuretics and symptoms as it has caused worsening kidney dysfunction. Patient has noticed increasing leg swelling and worsening pain which seems to be more prominent in the left lower extremity but it is bilateral nature with associated weeping. Patient denies any falls or trauma. Patient reports that she has taken the medications that she has been given at her living facility. No chest pains or shortness of breath. The patient does have worsening leg swelling. The patient is also put on approximate 7 pounds in several days. ROS: See HPI for pertinent positives and negatives. A total of 10 systems were reviewed and otherwise negative. Past medical history: See below Surgical history: See below Social history: See below Physical Exam: GENERAL: In pain, wearing a mask, non-toxic. Wearing glasses. EYE EXAM: Normal conjunctiva. PERRL, no anisocoria and EOM's grossly intact w/o pain. NECK: Supple, no nuchal rigidity, no adenopathy, non-tender. No signs of meningismus. FROM of the neck with good chin to chest and neck extension. No stridor. LUNGS: Clear to auscultation. Normal chest wall mechanics. HEART: Irregularly irregular, no MRG. ABDOMEN: Abdomen soft, non-tender, normo-active bowel sounds, no masses, no rebound or guarding. BACK: No CVA TTP. SKIN: No rashes and no bruising. UPPER EXTREMITIES: Upper extremities are grossly normal. LOWER EXTREMITIES: Grossly normal, 3-4+ pitting edema, good DP pulses bilaterally, several small open areas bilaterally but without any surrounding er ythema no fluctuance or drainage. NEURO EXAM: A&O x3, cranial nerves II-XII grossly intact, normal speech, moves all 4 extremities. Differential diagnoses: Reactive airway disease, pneumonia, pneumothorax, COPD, CHF, infections, cardiac ischemia, pulmonary embolism, musculoskeletal, gastrointestinal, as well as other pathologies. Course: Patient was seen and evaluated the bedside. Full history physical exam was performed. EKG interpreted by me A fib, rate of 73, normal intervals, normal axis, no significant change Imaging Studies: See Below Cardiac monitoring: An order was placed for continuous cardiac monitoring. The monitor shows a rate of 77 with irregularly irregular rhythm. MDM: Patient presents with leg pain in setting of likely volume overload from CHF. Do believe leg pain 2/2 to swelling. No assymetry or cellulitis, no crepitus. Good DP pulses. Do not believe she requires imaging of b/l LEs at this time. Patient was ordered blood work pain medication and Bumex IV 2 mg. Patient is a normal white count with anemia which is chronic and stable. Creatinine 1.7. Troponin borderline elevated. Patient's BNP is significantly elevated. Given the patient's significant pain weight gain and leg swelling not amenable to outpatient treatment at this time I did speak with the on-call hospitalist Dr. Villafuerte and the patient was admitted to the medicine service. Past Med/Surg History Medical History Anemia Asthma Atrial fibrillation CAD (coronary artery disease) Cerebrovascular disease Chronic diastolic congestive heart failure Chronic kidney disease (CKD) Stage III, baseline Cr 1.3-1.5mg/dL. Complicated with normocytic anemia and secondary hyperparathyroidism. Followed by nephrology. 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 Cannot perform MRI due to bladder implant. Followed by pain management. Epidural steroid injections with improvement of pain. Evaluated by ortho, decided against surgery. Managed with gabapentin 300mg TID + APAP PRN + tapentadol 50mg BID PRN GERD (gastroesophageal reflux disease) GIB (gastrointestinal bleeding) History of gout Managed with allopruinol daily. No recent gouty attacks. Uric acid suppressed 3.4 mg/dl (12/22) Hyperlipidemia Secondary prevention with moderate intensity statin (atorvastatin 20mg daily) Hypertension Hypothyroidism Lichen planus Macular degeneration Mitral regurgitation Neurologic gait dysfunction Obstructive sleep apnea Long standing. Managed with CPAP nightly. CPAP titration polysomnography (07/14). Sensorineural hearing loss (SNHL) of both ears Venous insufficiency of both lower extremities Surgical History H/O colonoscopy History of repair of rectocele S/P breast biopsy S/P section S/P cholecystectomy S/P hysterectomy S/P implantation of urinary electronic stimulator device Family History Father , Age 64 No problems noted. Mother , Age 61 No problems noted. Other Coronary heart disease Denies family history of Ovarian cancer Prostate cancer Crohn's disease Breast cancer Lung cancer Colorectal cancer Social History Smoking Status: Never smoker Second Hand Exposure: No; Hx Alcohol Use: No Hx Substance Use: No Preferred Language: Chinese Communication Ability: Effective Visual Impairment: No Limitations Hearing Ability: Normal Claims Collector Required: No Beliefs That Will Affect Care: None marital status: Single Current Living Situation: [facility] Current Living Situation Comment: [facility] current occupational status: retired How many Children do You have: 3 Feels Safe at Home: Yes Childhood Exposure to Second-Hand Smoke: No Diet Comment: DIABETIC caffeine: No during the past year weight has: remained stable Dental Care, Regularly: No Physical Activity Frequency: 1-2 Times per Week Seatbelt Use: always Sunscreen Use: Yes Assistive Devices: Cane and Walker Allergies Allergies Allergy/AdvReac Type Severity Reaction Status Date / Time shellfish derived Allergy Severe ANAPHYLAXIS Verified 02/24/22 13:18 iodine Allergy Intermediate ANAPHYLAXIS Verified 02/24/22 13:18 lisinopril Allergy Unknown Unknown Verified 02/24/22 13:18 oxybutynin [From Ditropan] Allergy Unknown Unknown Verified 02/24/22 13:18 sertraline [From Zoloft] Allergy Unknown Unknown Verified 02/24/22 13:18 paroxetine AdvReac Mild GI UPSET Verified 02/24/22 13:18 Home Meds Home Medications Medication Instructions Recorded Confirmed cholecalciferol (vitamin D3) 25 2,000 unit PO QAM 05/11/20 03/02/22 mcg (1,000 unit) tablet (Vitamin D3) polyethylene glycol 3350 17 8.5 g PO DAILY PRN Constipation 01/28/21 03/02/22 gram/dose oral powder (Miralax) vit C 226 mg-vit E 90 mg-copper 1 cap PO BID 02/01/21 03/02/22 0.8 mg-zinc oxide-lutein 5 mg capsule (PreserVision Lutein) acetaminophen 500 mg tablet 1,000 mg PO .QHS 12/06/21 03/02/22 nitroglycerin 0.3 mg sublingual 0.3 mg sublingual Q5M PRN Chest 01/17/22 03/02/22 tablet Pain Previous Rx's Medication Instructions Recorded allopurinol 100 mg tablet 300 mg PO QAM #90 tabs 12/16/21 (Zyloprim) apixaban 2.5 mg tablet (Eliquis) 2.5 mg PO BID #180 tabs 12/16/21 bumetanide 2 mg tablet 2 mg PO BID #60 tabs 12/16/21 clopidogrel 75 mg tablet (Plavix) 75 mg PO QAM #90 tabs 12/16/21 digoxin 125 mcg (0.125 mg) tablet 125 mcg PO Q2D #15 tabs 12/16/21 (Digitek) duloxetine 30 mg capsule,delayed 30 mg PO QAM #90 caps 12/16/21 release (Cymbalta) duloxetine 60 mg capsule,delayed 60 mg PO QAM #90 caps 12/16/21 release (Cymbalta) isosorbide mononitrate 30 mg 30 mg PO QAM #90 tabs 12/16/21 tablet,extended release 24 hr levothyroxine 50 mcg tablet 50 mcg PO DAILYBB #30 tabs 12/16/21 (Synthroid) magnesium oxide 400 mg PO BID #180 tabs 12/16/21 metoprolol succinate 50 mg 150 mg PO BID #540 tabs 12/16/21 tablet,extended release 24 hr (Toprol XL) mirtazapine 15 mg tablet (Remeron) 15 mg PO HS #30 tabs 12/16/21 pantoprazole 40 mg tablet,delayed 40 mg PO QAM #90 tabs 12/16/21 release (Protonix) polysaccharide iron complex 150 mg 150 mg PO QAM #90 caps 12/16/21 iron capsule (Ferrex) potassium chloride 20 mEq 10 meq PO BID #180 tabs 12/16/21 tablet,extended release (K-Tab) insulin glargine 100 unit/mL (3 28 unit (0.28 mL) subcut HS #15 mL 12/18/21 mL) subcutaneous pen (Lantus Solostar U-100 Insulin) glucagon 1 mg solution for 1 mg subcut Q20M PRN hypoglycemia 01/02/22 injection (Glucagon Emergency Kit) #1 ea nystatin 100,000 unit/gram topical 1 applic topical TID 2 weeks #30 01/21/22 cream grams insulin aspart U-100 100 unit/mL 7 - 10 unit (0.07 - 0.1 mL) subcut 02/04/22 (3 mL) subcutaneous pen (Novolog TIDM #45 mL Flexpen U-100 Insulin aspart) clobetasol 0.05 % topical cream 1 applic topical BID #30 grams 02/19/22 Results & Data (ED) Vital Signs Vital Signs - 24 hr 03/02/22 15:57 Temperature 36.5 C Temperature Source Oral Pulse Rate 81 Pulse Rhythm Regular Pulse Strength Normal Respiratory Rate 20 Respiratory Effort / Characteristics Non-Labored Spontaneous Respiratory Depth Normal Respiratory Pattern Regular Blood Pressure 98/65 L Blood Pressure Mean 76 Pulse Oximetry 96 Oxygen Delivery Method Room Air Sepsis Recent Fever Within 48 Hours No Sepsis New/Unexplained Change in Mental Status N/A Sepsis Action Taken by Nursing No Action Required Home Medications Current Medication List: was personally reviewed by me Laboratory Data Attestation: I reviewed the patient's lab results. Result diagrams: 03/04/22 08:59 03/04/22 08:59 Lab Results 03/02/22 03/02/22 03/02/22 Range/Units 16:00 16:00 16:00 WBC 6.87 (4.8-10.8) K/ul RBC 2.56 L (3.93-5.22) M/uL Hgb 9.0 L (12.0-16.0) g/dl Hct 29.2 L (34.1-44.9) % MCV 114.1 H (80.0-100.0) fL MCH 35.2 H (25.0-34.0) pg MCHC 30.8 L (32.0-36.0) g/dL RDW Std Deviation 89.3 H (36.4-46.3) fL RDW Coeff of Talia 22.5 H (11.5-14.5) % Plt Count 243 (130-400) K/uL MPV 12.8 H (9.4-12.3) fL Immature Gran % (Auto) 1.2 % Neut % (Auto) 70.8 % Lymph % (Auto) 10.9 % [place] % (Auto) 10.0 % Eos % (Auto) 6.7 % Baso % (Auto) 0.4 % Neut # (Auto) 4.86 (1.4-6.5) K/uL Lymph # (Auto) 0.75 L (1.2-3.4) K/uL [place] # (Auto) 0.69 (0.24-0.82) K/uL Eos # (Auto) 0.46 (0-0.50) K/uL Baso # (Auto) 0.03 (0-0.2) K/uL Immature Gran # (Auto) 0.08 H (0.00-0.02) K/uL Absolute Nucleated RBC 0.15 H (0-0) K/uL Nucleated RBC % (auto) 2.2 % Polychromasia 1+ Ovalocytes 3+ Schistocytes 1+ Sodium 140 (136-145) mmol/L Potassium 3.7 (3.5-5.1) mmol/L Chloride 101 (98-107) mmol/L Carbon Dioxide 31 (21-32) mmol/L Anion Gap 8 (3-11) BUN 48 H (6-23) mg/dl Creatinine 1.77 H (0.6-1.2) mg/dl Est Cr Clr Drug Dosing 19.1 ml/min Est GFR ( Amer) 30.0 ml/min Est GFR (Non-Af Amer) 25.9 ml/min BUN/Creatinine Ratio 27.1 H (10-20) Glucose 123 H (70-99(Fasting)) mg/dl Calcium 9.0 (8.5-10.1) mg/dl Total Bilirubin 2.0 H (0.2-1.0) mg/dl AST 33 (13-39) U/L ALT 30 (7-52) U/L Alkaline Phosphatase 243 H (34-104) U/L Troponin I High Sens 27.1 H (0-14) pg/ml B-Natriuretic Peptide (0-100) pg/ml Total Protein 6.7 (6.0-8.3) gm/dl Albumin 3.9 (3.4-5.0) gm/dl Globulin 2.8 (2.5-4.0) gm/dl Albumin/Globulin Ratio 1.4 (0.9-2) TSH 2.042 (0.300-4.500) uIu/ml 03/02/22 Range/Units 16:00 WBC (4.8-10.8) K/ul RBC (3.93-5.22) M/uL Hgb (12.0-16.0) g/dl Hct (34.1-44.9) % MCV (80.0-100.0) fL MCH (25.0-34.0) pg MCHC (32.0-36.0) g/dL RDW Std Deviation (36.4-46.3) fL RDW Coeff of Talia (11.5-14.5) % Plt Count (130-400) K/uL MPV (9.4-12.3) fL Immature Gran % (Auto) % Neut % (Auto) % Lymph % (Auto) % [place] % (Auto) % Eos % (Auto) % Baso % (Auto) % Neut # (Auto) (1.4-6.5) K/uL Lymph # (Auto) (1.2-3.4) K/uL [place] # (Auto) (0.24-0.82) K/uL Eos # (Auto) (0-0.50) K/uL Baso # (Auto) (0-0.2) K/uL Immature Gran # (Auto) (0.00-0.02) K/uL Absolute Nucleated RBC (0-0) K/uL Nucleated RBC % (auto) % Polychromasia Ovalocytes Schistocytes Sodium (136-145) mmol/L Potassium (3.5-5.1) mmol/L Chloride (98-107) mmol/L Carbon Dioxide (21-32) mmol/L Anion Gap (3-11) BUN (6-23) mg/dl Creatinine (0.6-1.2) mg/dl Est Cr Clr Drug Dosing ml/min Est GFR ( Amer) ml/min Est GFR (Non-Af Amer) ml/min BUN/Creatinine Ratio (10-20) Glucose (70-99(Fasting)) mg/dl Calcium (8.5-10.1) mg/dl Total Bilirubin (0.2-1.0) mg/dl AST (13-39) U/L ALT (7-52) U/L Alkaline Phosphatase (34-104) U/L Troponin I High Sens (0-14) pg/ml B-Natriuretic Peptide 1534 H (0-100) pg/ml Total Protein (6.0-8.3) gm/dl Albumin (3.4-5.0) gm/dl Globulin (2.5-4.0) gm/dl Albumin/Globulin Ratio (0.9-2) TSH (0.300-4.500) uIu/ml Administered Medications Acetaminophen (Acetaminophen 325 Mg Tab) 650 mg PO Q4H PRN PRN Reason: Pain or Fever Stop: 04/01/22 21:25 Last Admin: 03/04/22 04:26 Dose: 650 mg Documented By: Admin: 03/03/22 13:13 Dose: 650 mg Documented By: Admin: 03/03/22 04:16 Dose: 650 mg Documented By: CASEY Allopurinol (Allopurinol 300 Mg Tab) 300 mg PO QAM [facility] Stop: 04/02/22 08:59 Last Admin: 03/04/22 07:49 Dose: 300 mg Documented By: Admin: 03/03/22 07:22 Dose: 300 mg Documented By: SAMANTHA Apixaban (Apixaban 2.5 Mg Tab) 2.5 mg PO BID [facility] Stop: 04/01/22 21:25 Last Admin: 03/04/22 07:47 Dose: 2.5 mg Documented By: Admin: 03/03/22 21:42 Dose: 2.5 mg Documented By: Admin: 03/03/22 07:22 Dose: 2.5 mg Documented By: Admin: 03/02/22 22:20 Dose: 2.5 mg Documented By: CASEY Bumetanide (Bumetanide 1 Mg Tab) 2 mg PO BID17 [facility] Stop: 04/03/22 16:59 Last Admin: 03/04/22 17:07 Dose: 2 mg Documented By: CC Clobetasol Propionate (Clobetasol Propionate 0.05% Oint 15 Gm Tube) 1 appln EXT BID [facility] Stop: 04/01/22 21:25 Last Admin: 03/04/22 08:39 Dose: 1 appln Documented By: Admin: 03/03/22 21:43 Dose: 1 appln Documented By: Admin: 03/03/22 07:21 Dose: 1 appln Documented By: Admin: 03/02/22 22:19 Dose: 1 appln Documented By: CASEY Clopidogrel Bisulfate (Clopidogrel Bisulfate 75 Mg Tab) [facility] Stop: 04/02/22 08:59 Last Admin: 03/04/22 07:48 Dose: 75 mg Documented By: Admin: 03/03/22 07:22 Dose: 75 mg Documented By: SAMANTHA Digoxin (Digoxin 0.125 Mg Tab) 0.125 mg PO Q48H [facility] Stop: 04/02/22 15:59 Last Admin: 03/03/22 18:26 Dose: 0.125 mg Documented By: MINA Duloxetine HCl (Duloxetine Hcl 30 Mg Cap) 30 [facility] Stop: 04/02/22 08:59 Last Admin: 03/04/22 07:48 Dose: 30 mg Documented By: Admin: 03/03/22 07:22 Dose: 30 mg Documented By: SAMANTHA Duloxetine HCl (Duloxetine Hcl 60 Mg Cap) 60 [facility] Stop: 04/02/22 08:59 Last Admin: 03/04/22 07:48 Dose: 60 mg Documented By: Admin: 03/03/22 07:23 Dose: 60 mg Documented By: SAMANTHA Insulin Aspart (Insulin Aspart Per Unit) 0 units SC [facility] Stop: 04/01/22 21:25 Last Admin: 03/04/22 17:09 Dose: 4 units Documented By: CC Co-signed By: [id number] Admin: 03/04/22 11:57 Dose: 12 units Documented By: CC Co-signed By: [id number] Admin: 03/04/22 08:38 Dose: 7 units Documented By: CC Co-signed By: [id number] Admin: 03/03/22 22:37 Dose: 1 units Documented By: ED Co-signed By: LUISA Admin: 03/03/22 18:29 Dose: 5 units Documented By: MINA Co-signed By: [id number] Admin: 03/03/22 12:16 Dose: 5 units Documented By: SAMANTHA Co-signed By: BEVERLEY Admin: 03/03/22 08:04 Dose: Not Given Documented By: SAMANTHA Co-signed By: DAVID Admin: 03/02/22 21:59 Dose: Not Given Documented By: CASEY Insulin Glargine (Lantus Per Unit Charge) 10 units SQ BID RODDY Stop: 04/01/22 21:25 Last Admin: 03/04/22 08:40 Dose: 10 units Documented By: CC Co-signed By: [id number] Admin: 03/03/22 22:36 Dose: 10 units Documented By: ED Co-signed By: LAT Admin: 03/03/22 08:05 Dose: 10 units Documented By: SAMANTHA Co-signed By: DAVID Admin: 03/02/22 22:04 Dose: 10 units Documented By: CASEY Co-signed By: JAYA Isosorbide Mononitrate (Isosorbide [place] Extended Rel 30 Mg Tabcr) 30 mg PO QAM [facility] Stop: 04/02/22 08:59 Last Admin: 03/04/22 07:49 Dose: 30 mg Documented By: Admin: 03/03/22 07:22 Dose: 30 mg Documented By: SAMANTHA Levothyroxine Sodium (Levothyroxine Sodium 50 Mcg Tablet) 50 mcg PO DAILYBB [facility] Stop: 04/02/22 06:29 Last Admin: 03/04/22 05:57 Dose: 50 mcg Documented By: Admin: 03/03/22 05:19 Dose: 50 mcg Documented By: CASEY Magnesium Oxide (Magnesium Oxide 400 Mg Tab) 400 mg PO BID RODDY Stop: 04/01/22 21:25 Last Admin: 03/04/22 07:47 Dose: 400 mg Documented By: Admin: 03/03/22 21:42 Dose: 400 mg Documented By: Admin: 03/03/22 07:22 Dose: 400 mg Documented By: Admin: 03/02/22 22:21 Dose: 400 mg Documented By: CASEY Metoprolol Succinate (Metoprolol Succ 50mg Ext Rel Tab) 150 mg PO BID RODDY Stop: 04/01/22 21:25 Last Admin: 03/04/22 07:47 Dose: 150 mg Documented By: Admin: 03/03/22 22:39 Dose: 150 mg Documented By: Admin: 03/03/22 07:22 Dose: 150 mg Documented By: Admin: 11/27/22 22:22 Dose: 150 mg Documented By: CASEY Mirtazapine (Mirtazapine Tab 15 Mg Tab) 15 mg PO HS RODDY Stop: 04/01/22 21:25 Last Admin: 03/03/22 21:42 Dose: 15 mg Documented By: Admin: 03/02/22 22:21 Dose: 15 mg Documented By: CASEY Multivitamins/Minerals (Cerovite Adv Formula Tab) 1 tab PO DAILY RODDY Stop: 04/01/22 21:25 Last Admin: 03/04/22 07:48 Dose: 1 tab Documented By: Admin: 03/03/22 07:22 Dose: 1 tab Documented By: Admin: 03/02/22 22:21 Dose: 1 tab Documented By: CASEY Nystatin (Nystatin Cr 15 Gm Tube) 1 appln EXT TID RODDY Stop: 04/01/22 21:25 Last Admin: 03/04/22 13:11 Dose: Not Given Documented By: Admin: 03/04/22 08:40 Dose: 1 appln Documented By: Admin: 03/03/22 21:43 Dose: 1 appln Documented By: Admin: 03/03/22 13:13 Dose: 1 appln Documented By: Admin: 03/03/22 07:21 Dose: 1 appln Documented By: Admin: 03/02/22 22:19 Dose: 1 appln Documented By: CASEY Pantoprazole Sodium (Pantoprazole 40 Mg Tab) 40 mg PO QAM RODDY Stop: 04/02/22 08:59 Last Admin: 03/04/22 07:48 Dose: 40 mg Documented By: Admin: 03/03/22 07:21 Dose: 40 mg Documented By: SAMANTHA Polysaccharide Iron Complex (Iron Polysaccharide Complex 150 Mg Capsule) 150 mg PO QAM RODDY Stop: 04/02/22 08:59 Last Admin: 03/04/22 07:49 Dose: 150 mg Documented By: Admin: 03/03/22 07:22 Dose: 150 mg Documented By: SAMANTHA Potassium Chloride (Potassium Chloride 10 Meq Tabcr) 10 meq PO BID RODDY Stop: 04/01/22 21:25 Last Admin: 03/04/22 07:47 Dose: 10 meq Documented By: Admin: 03/03/22 21:42 Dose: 10 meq Documented By: Admin: 03/03/22 07:21 Dose: 10 meq Documented By: Admin: 03/02/22 22:21 Dose: 10 meq Documented By: CASEY Vitamin D (Cholecalciferol 1,000 Units 25 Mcg Tab) 2,000 units PO QAM RODDY Stop: 04/02/22 08:59 Last Admin: 03/04/22 07:47 Dose: 2,000 units Documented By: Admin: 03/03/22 07:22 Dose: 2,000 units Documented By: SAMANTHA Discontinued Medications Fentanyl Citrate (Fentanyl Citrate 100 Mcg/2 Ml Vial) 25 mcg IV NOW ONE Stop: 03/02/22 16:34 Last Admin: 03/02/22 16:42 Dose: 25 mcg Documented By: [id number] Bumetanide 2 mg/ Syringe 8 mls @ 4 mls/min IV ONE ONE Stop: 03/02/22 16:25 Last Admin: 03/02/22 17:12 Dose: 4 mls/min Documented By: [id number] Bumetanide 2 mg/ Syringe 8 mls @ 4 mls/min IV BID@0900,1700 RODDY Stop: 04/02/22 08:59 Last Admin: 03/03/22 18:43 Dose: 4 mls/min Documented By: Admin: 03/03/22 07:21 Dose: 4 mls/min Documented By: SAMANTHA Oxycodone HCl (Oxycodone Hcl Ir 5 Mg Tab (Immediate Release)) 5 mg PO NOW STA Stop: 03/02/22 22:11 Last Admin: 03/02/22 22:20 Dose: 5 mg Documented By: CASEY Imaging Data Radiologist's Impression: Chest X-Ray 03/02/22 17:41 XR chest 1V portable HISTORY: 86 years-old Female ?pulm edema acute shortness of breath COMPARISON: Chest radiograph 02/12/2022 TECHNIQUE: AP view of the chest FINDINGS: Cardiac silhouette is enlarged. Atherosclerosis of the aorta. No pneumothorax, pleural effusion, airspace consolidation or overt pulmonary edema. Unchanged blunting of the costophrenic angles. Degenerative changes of the shoulders and spine. IMPRESSION: Cardiomegaly without acute process. ACT 112: Negative or not required by law. The above report was generated using voice recognition software. It may contain grammatical, syntax or spelling errors. Electronically signed by: Cheo Vargas M.D. 03/02/2022 5:54 PM Discharge Plan Visit Data Chief Complaint: Edema To Extremity Stated Complaint: LEG EDEMA ED Provider: Elliot Villasenor Discharge Problem: Cardiac volume overload, CKD (chronic kidney disease), Anemia, A-fib, Acute leg pain Patient Disposition: Admitted As Inpatient Discharge Instructions Interventions: ED Discharge Assessment Last Done: 03/02/22 19:59
[2022-03-02] MEDS ORDERED: BUMETANIDE 2 MG in SYRINGE 0 ML IV ONE (16:24)
[2022-03-02] MEDS ORDERED: fentaNYL citrate 100 MCG/2 ML VIAL IV ONE (16:33)
[2022-03-02 16:41] LABS: Basophils # (auto) 0.03 K/uL (0-0.2); Basophils % (auto) 0.4 %; Eosinophils # (auto) 0.46 K/uL (0-0.50); Eosinophils % (auto) 6.7 %; Hematocrit (blood only) 29.2 % (34.1-44.9); Immature Granulocytes # (auto) 0.08 K/uL (0.00-0.02); Immature Granulocytes % (auto) 1.2 %; Lymphocytes # (auto) 0.75 K/uL (1.2-3.4); Lymphocytes % (auto) 10.9 %; Mean Corpuscular Hemoglobin 35.2 pg (25.0-34.0); Mean Corpuscular Hgb Conc 30.8 g/dL (32.0-36.0); Mean Corpuscular Volume 114.1 fL (80.0-100.0); Mean Platelet Volume 12.8 fL (9.4-12.3); Monocytes # (auto) 0.69 K/uL (0.24-0.82); Neutrophils # (auto) 4.86 K/uL (1.4-6.5); Neutrophils % (auto) 70.8 %; Nucleated RBC # (auto) 0.15 K/uL (0-0); Nucleated RBC % (auto) 2.2 %; Platelet Count 243 K/uL (130-400); RDW Coefficient of Variation 22.5 % (11.5-14.5); RDW Standard Deviation 89.3 fL (36.4-46.3); Red Blood Count 2.56 M/uL (3.93-5.22); White Blood Count 6.87 K/ul (4.8-10.8)
[2022-03-02 17:02] LABS: Ovalocytes 3+; Polychromasia 1+; Schistocytes 1+
[2022-03-02 17:06] LABS: Troponin I High Sensitivity 27.1 pg/ml (0-14)
[2022-03-02 17:07] LABS: Albumin Globulin Ratio 1.4 (0.9-2); Albumin Level 3.9 gm/dl (3.4-5.0); BUN Creatinine Ratio 27.1 (10-20); Creatinine Clr Calc Pharmacy 19.1 ml/min; Est GFR (Non-African American) 25.9 ml/min; Globulin 2.8 gm/dl (2.5-4.0); Potassium 3.7 mmol/L (3.5-5.1); Total Protein 6.7 gm/dl (6.0-8.3)
--- NOTE | 2022-03-02 17:55 | History & Physical Report ---
Date of Service March 02, 2022 Assessment & Plan (1) Acute on chronic heart failure with preserved ejection fraction: Plan: - 1 days of bilateral lower extremity with baseline pain, minimal weeping. - No SOB, chest pain/heaviness, palpitations, productive cough. - CXR: Cardiomegaly with no active disease in the chest. - ROOFING SUPERVISOR Bumex 2 mg BID w/ potassium supplement. Reports compliance. - Echo this month: Normal LV function, no wall motion abnormalities, EF 60-65%, mod/severe TR, mild/mod MR. RVSP > 60 mmHg, - Received 2 mg IV Bumex in ED, will continue IV mg Bumex BID. - Dry weight ~144-145 pounds, patient weight in ED 155 pounds. - Strict I&Os, daily weights, low sodium/DM diet with 1.5 L fluid restriction. - Monitor renal function. Cr slightly elevated at baseline, d/c'd at 1.65, 1.77 today. Suspect similarly to last admission, more aggresive diuresis would only worse renal function and not be beneficial. (2) CAD (coronary artery disease): Plan: - s/p PCI of the proximal LAD on 12/06/[address] Miller. - Stable, without chest pain/palpitations/pressure, shortness of breath. - Continue Imdur, metoprolol, statin, nitroglycerin as needed, Plavix. (3) Diabetes mellitus, type II: Plan: - ROOFING SUPERVISOR--> insulin glargine 28 units. - Glycemic consult placed on last admission, recommended Lantus 20 units in evening with SSI, goal range 110-140, CF 35, CR 8 - Will order Lantus 10 units BID with SSI as above. - Low-sodium/diabetic diet. - Continue Cymbalta for depression/neuropathy pain. (4) Chronic kidney disease (CKD): Plan: - Renal function at/about baseline. - Renally dose medications as able and avoid nephrotoxins. (5) Atrial fibrillation: Plan: - Permanent, asymptomatic, continue metoprolol and digoxin, Eliquis. (6) Anemia: Plan: - Hgb 19.0, at/near baseline. Likely multifactorial from CKD, hemolysis (elevated t bili, LDH, retic count, low haptoglobin in 2020). ? early MDS. - Follows with CCP, last seen by Dr. Carter in December. - Deferring further workup, i.e bone marrow biopsy given age and stability. - For now, as long as Hgb remains stable, will follow up as outpt q3 months. - Continue oral iron supplementation. (7) COPD (chronic obstructive pulmonary disease): Plan: - Continue albuterol as needed. - No evidence of exacerbation today. (8) GERD (gastroesophageal reflux disease): Plan: - Continue Protonix. (9) Venous insufficiency of both lower extremities: Plan: - Elevated legs, encourage compression stockings use. (10) Depression with anxiety: Plan: - Continue Cymbalta. (11) Hypothyroidism: Plan: - Continue levothyroxine 50 mcg daily. Plan - Admit to med/telemetry. - SCDs, DOAC continued for VTE ppx. - DNR/DNI. History of Present Illness Chief Complaint: LE edema, pain x1 day Primary Care Provider: Domi Wetzel DO Tiffanie Porter is an 86-year-old female with a past medical history significant for CAD, diastolic heart failure, A. fib, asthma, COPD, diabetes, CAD, GERD, GI bleed, anemia, there is some, BETHANY who is presenting today with bilateral leg swelling and pain. She resided at [facility], where staff noticed today worsening b/l swelling in her legs and recommend she come to the ED for evaluation. Her dry weight is 144 to 145 pounds, today she weighs 154. She has her usual pain in the legs and minimal weeping, and some mild edema, she states it is a bit worse than her usual baseline. Trouble laying flat due to nausea but does not have any orthopnea, worsening of her chronic nonproductive cough, chest pain or palpitations. She has been compliant with her home diuretics and low-sodium diet. She has a longstanding history of CHF and was recently admitted from our facility from 02/12-02/17 for similar presentation of lower leg swelling with pain, weeping. Her home dose is 2 mg Bumex p.o. twice daily, this was transitioned to 2 mg IV twice daily, and then increase to 3 mg twice daily, however her renal function was placed back on 2 mg IV BID and discharged on her usual 2 mg PO BID. An echo was ordered at that time which did not show significant changes over the past year. Ultimately, no cause of heart failure was identified. Prior to admission there is no change in dose, diet, and no concern for HI, elevated LFTs, or trace protein in urine. Only possible exacerbation at the time may have been her UTI. It was also felt that because her heart failure is mainly right-sided, limit on diuresis has been met. Labs significant for BNP of 1500, troponin 27.1 which is her usual baseline, renal function slightly increased at , was 1.65 on d/c 02/17, 1.55 on last admit. No leukocytosis, she has a chronic microcytic anemia, no electrolyte abnormalities, or elevated LFTs. Allergies Allergy/AdvReac Type Severity Reaction Status Date / Time shellfish derived Allergy Severe ANAPHYLAXIS Verified 02/24/22 13:18 iodine Allergy Intermediate ANAPHYLAXIS Verified 02/24/22 13:18 lisinopril Allergy Unknown Unknown Verified 02/24/22 13:18 oxybutynin [From Ditropan] Allergy Unknown Unknown Verified 02/24/22 13:18 sertraline [From Zoloft] Allergy Unknown Unknown Verified 02/24/22 13:18 paroxetine AdvReac Mild GI UPSET Verified 02/24/22 13:18 Home Medications Medication Instructions Recorded Confirmed Type cholecalciferol (vitamin D3) 25 2,000 unit PO QAM 05/11/20 03/02/22 History mcg (1,000 unit) tablet (Vitamin D3) polyethylene glycol 3350 17 8.5 g PO DAILY PRN Constipation 01/28/21 03/02/22 History gram/dose oral powder (Miralax) vit C 226 mg-vit E 90 mg-copper 1 cap PO BID 02/01/21 03/02/22 History 0.8 mg-zinc oxide-lutein 5 mg capsule (PreserVision Lutein) acetaminophen 500 mg tablet 1,000 mg PO .QHS 12/06/21 03/02/22 History allopurinol 100 mg tablet 300 mg PO QAM #90 tabs 12/16/21 03/02/22 Rx (Zyloprim) apixaban 2.5 mg tablet (Eliquis) 2.5 mg PO BID #180 tabs 12/16/21 03/02/22 Rx bumetanide 2 mg tablet 2 mg PO BID #60 tabs 12/16/21 03/02/22 Rx clopidogrel 75 mg tablet (Plavix) 75 mg PO QAM #90 tabs 12/16/21 03/02/22 Rx digoxin 125 mcg (0.125 mg) tablet 125 mcg PO Q2D #15 tabs 12/16/21 03/02/22 Rx (Digitek) duloxetine 30 mg capsule,delayed 30 mg PO QAM #90 caps 12/16/21 03/02/22 Rx release (Cymbalta) duloxetine 60 mg capsule,delayed 60 mg PO QAM #90 caps 12/16/21 03/02/22 Rx release (Cymbalta) isosorbide mononitrate 30 mg 30 mg PO QAM #90 tabs 12/16/21 03/02/22 Rx tablet,extended release 24 hr levothyroxine 50 mcg tablet 50 mcg PO DAILYBB #30 tabs 12/16/21 03/02/22 Rx (Synthroid) magnesium oxide 400 mg PO BID #180 tabs 12/16/21 03/02/22 Rx metoprolol succinate 50 mg 150 mg PO BID #540 tabs 12/16/21 03/02/22 Rx tablet,extended release 24 hr (Toprol XL) mirtazapine 15 mg tablet (Remeron) 15 mg PO HS #30 tabs 12/16/21 03/02/22 Rx pantoprazole 40 mg tablet,delayed 40 mg PO QAM #90 tabs 12/16/21 03/02/22 Rx release (Protonix) polysaccharide iron complex 150 mg 150 mg PO QAM #90 caps 12/16/21 03/02/22 Rx iron capsule (Ferrex) potassium chloride 20 mEq 10 meq PO BID #180 tabs 12/16/21 03/02/22 Rx tablet,extended release (K-Tab) insulin glargine 100 unit/mL (3 28 unit (0.28 mL) subcut HS #15 mL 12/18/21 03/02/22 Rx mL) subcutaneous pen (Lantus Solostar U-100 Insulin) glucagon 1 mg solution for 1 mg subcut Q20M PRN hypoglycemia 01/02/22 03/02/22 Rx injection (Glucagon Emergency Kit) #1 ea nitroglycerin 0.3 mg sublingual 0.3 mg sublingual Q5M PRN Chest 01/17/22 History tablet Pain nystatin 100,000 unit/gram topical 1 applic topical TID 2 weeks #30 01/21/22 03/02/22 Rx cream grams insulin aspart U-100 100 unit/mL 7 - 10 unit (0.07 - 0.1 mL) subcut 02/04/22 03/02/22 Rx (3 mL) subcutaneous pen (Novolog TIDM #45 mL Flexpen U-100 Insulin aspart) clobetasol 0.05 % topical cream 1 applic topical BID #30 grams 02/19/22 03/02/22 Rx Past Med/Surg History Medical History Anemia Asthma Atrial fibrillation CAD (coronary artery disease) Cerebrovascular disease Chronic diastolic congestive heart failure Chronic kidney disease (CKD) Stage III, baseline Cr 1.3-1.5mg/dL. Complicated with normocytic anemia and secondary hyperparathyroidism. Followed by nephrology. 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 Cannot perform MRI due to bladder implant. Followed by pain management. Epidural steroid injections with improvement of pain. Evaluated by ortho, decided against surgery. Managed with gabapentin 300mg TID + APAP PRN + tapentadol 50mg BID PRN GERD (gastroesophageal reflux disease) GIB (gastrointestinal bleeding) History of gout Managed with allopruinol daily. No recent gouty attacks. Uric acid suppressed 3.4 mg/dl (12/22) Hyperlipidemia Secondary prevention with moderate intensity statin (atorvastatin 20mg daily) Hypertension Hypothyroidism Lichen planus Macular degeneration Mitral regurgitation Neurologic gait dysfunction Obstructive sleep apnea Long standing. Managed with CPAP nightly. CPAP titration polysomnography (07/14). Sensorineural hearing loss (SNHL) of both ears Venous insufficiency of both lower extremities Surgical History H/O colonoscopy History of repair of rectocele S/P breast biopsy S/P section S/P cholecystectomy S/P hysterectomy S/P implantation of urinary electronic stimulator device Family History Father , Age 64 No problems noted. Mother , Age 61 No problems noted. Other Coronary heart disease Denies family history of Ovarian cancer Prostate cancer Crohn's disease Breast cancer Lung cancer Colorectal cancer Social History Smoking Status: Never smoker Second Hand Exposure: No; Do You Dip or Chew Tobacco: No; Tobacco Cessation Education Requested by Patient: No Hx Alcohol Use: No Hx Substance Use: No Preferred Language: Liberian Communication Ability: Effective Visual Impairment: No Limitations Hearing Ability: Normal Bulb Grower Required: No Beliefs That Will Affect Care: None marital status: Single Current Living Situation: Prison Current Living Situation Comment: NATHEN current occupational status: retired How many Children do You have: 3 Other Information That Helps Us Care for You: No Feels Safe at Home: Yes Childhood Exposure to Second-Hand Smoke: No Diet Comment: DIABETIC caffeine: No during the past year weight has: remained stable Dental Care, Regularly: No Physical Activity Frequency: 1-2 Times per Week Seatbelt Use: always Sunscreen Use: Yes Assistive Devices: Cane, Glasses and Walker Review of Systems Review of Systems: Constitutional: No fever/chills, weakness, fatigue, myalgias, anorexia, night sweats Eyes: No diplopia, no worsening or blurred vision ENT: normal hearing, no trouble swallowing Respiratory: No cough, sputum, dyspnea at rest or on exertion Cardiovascular: No chest pain, tightness or palpitations Abdomen: No pain, nausea, vomiting, diarrhea or constipation : Denies dysuria, hematuria, increased urgency/frequency, urinary retention Musculoskeletal: Bilateral lower extremity swelling, pain, weeping x1 day Neurologic: No weakness, numbness/tingling, or balance problems Psychiatric: No anxiety or depression Skin: No rash or itch Physical Exam Physical Exam: General: awake, alert, no apparent distress Head: Normocephalic, atraumatic ENT: PERRL, EOMI, no pharyngeal exudate, mucous membranes moist Chest: Clear to auscultation, on room air, no adventitious breath sounds Cardiac: Regular rate and rhythm, no murmur, no JVD, normal peripheral pulses, good capillary refill Abdominal: NABS x 4 quadrants, soft, nontender to palpation, no rebound, guarding or tenderness Extremities: 1+ bilateral pedal edema, pulses intact bilaterally and equal, sensation intact, feet cool to the touch, but capillary refill intact Psych: Normal mood and affect Neuro: AAO x 3, strength intact bilaterally and rated 5/5, no motor deficits, speech is clear, no peripheral sensory deficits Skin: no rash or erythema Results & Data Results & Data ([facility]) Vital Signs (Past 12 Hours) Vital Signs Temp Pulse Resp BP Pulse Ox O2 Del Method 03/02/22 17:00 80 19 94 03/02/22 17:00 146/73 H 03/02/22 16:58 137/93 03/02/22 16:58 76 12 03/02/22 16:56 156/63 H 03/02/22 16:56 68 13 95 03/02/22 16:30 81 27 H 96 03/02/22 16:17 71 15 94 03/02/22 15:57 36.5 C 81 20 98/65 L 96 Room Air Laboratory Results Abnormal lab results 03/02/22 03/02/22 03/02/22 Range/Units 16:00 16:00 16:00 RBC 2.56 L (3.93-5.22) M/uL Hgb 9.0 L (12.0-16.0) g/dl Hct 29.2 L (34.1-44.9) % MCV 114.1 H (80.0-100.0) fL MCH 35.2 H (25.0-34.0) pg MCHC 30.8 L (32.0-36.0) g/dL RDW Std Deviation 89.3 H (36.4-46.3) fL RDW Coeff of Talia 22.5 H (11.5-14.5) % MPV 12.8 H (9.4-12.3) fL Lymph # (Auto) 0.75 L (1.2-3.4) K/uL Immature Gran # (Auto) 0.08 H (0.00-0.02) K/uL Absolute Nucleated RBC 0.15 H (0-0) K/uL BUN 48 H (6-23) mg/dl Creatinine 1.77 H (0.6-1.2) mg/dl BUN/Creatinine Ratio 27.1 H (10-20) Glucose 123 H (70-99(Fasting)) mg/dl Total Bilirubin 2.0 H (0.2-1.0) mg/dl Alkaline Phosphatase 243 H (34-104) U/L Troponin I High Sens 27.1 H (0-14) pg/ml B-Natriuretic Peptide 1534 H (0-100) pg/ml Diagnostic Findings Chest X-Ray 03/02/22 17:41 XR chest 1V portable HISTORY: 86 years-old Female ?pulm edema acute shortness of breath COMPARISON: Chest radiograph 02/12/2022 TECHNIQUE: AP view of the chest FINDINGS: Cardiac silhouette is enlarged. Atherosclerosis of the aorta. No pneumothorax, pleural effusion, airspace consolidation or overt pulmonary edema. Unchanged blunting of the costophrenic angles. Degenerative changes of the shoulders and spine. IMPRESSION: Cardiomegaly without acute process. ACT 112: Negative or not required by law. The above report was generated using voice recognition software. It may contain grammatical, syntax or spelling errors. Electronically signed by: Cheo Vargas M.D. 03/02/2022 5:54 PM ECG Additional Comments: Atrial fibrillation Low voltage QRS Inferior infarct (cited on or before 12-FEB-2022) Abnormal ECG When compared with ECG of 12-FEB-2022 08:53, No si gnificant change was found. Code Status & VTE Plan Code Status DNR/DNI. Supervising Physician Co-Signing Physician Notes Patient seen and examined, chart reviewed, case discussed with Rosalind Hayes PA-C and I agree with the assessment and plan as above except as otherwise noted Labs and images reviewed 86-year-old female with history of diastolic heart failure, A. fib, asthma, COPD, DM, CAD, GERD, anemia who presented with bilateral leg swelling and pain from . Has had worsened swelling in her legs for the last 3 days and reportedly with 10 pounds of rapid weight gain and increased pain. On assessment she is not significantly hypoxic, but has an increase in swelling and pain. No orthopnea. Lungs are diminished but clear. Pedal edema is present. No wheezing. Heart rate is regular. Due to a significant increase in her lower extremity swelling and pain she does feel comfortable with outpatient management/adjustment of diuretics with close outpatient follow-up and has been recommended for intensification of diuresis and observation. No overt heart failure is appreciated. We will increase diuretics as above, admit for observation and CHF treatment. Creatinine is at/slightly above normal baseline. Recommend adding venous stasis support including soft compression/wraps, elevation for at least 20 minutes 3 times a day, otherwise agree with management of chronic issues above. PG Care Time/CCT Total # of Minutes Spent Total Time Spent with Patient: Total time spent is greater than 50% in coordination of care (as documented) at patient's floor/unit and/or counseling patient: Coding Level of Care Code 19405 Initial Inpt Care Lvl 3 Diagnoses Acute on chronic heart failure with preserved ejection fraction I50.33 CAD (coronary artery disease) I25.10 Diabetes mellitus, type II E11.9 Chronic kidney disease (CKD) N18.9 Atrial fibrillation I48.91 Atrial fibrillation type: unspecified Anemia D64.9 Anemia type: unspecified type COPD (chronic obstructive pulmonary disease) J44.9 GERD (gastroesophageal reflux disease) K21.9 Esophagitis presence: esophagitis presence not specified Venous insufficiency of both lower extremities I87.2 Depression with anxiety F41.8 Hypothyroidism E03.9 Hypothyroidism type: unspecified (1) Anemia Anemia type: unspecified type Qualified Code(s): D64.9 - Anemia, unspecified (2) Atrial fibrillation Atrial fibrillation type: unspecified Qualified Code(s): I48.91 - Unspecified atrial fibrillation (3) Hypothyroidism Hypothyroidism type: unspecified Qualified Code(s): E03.9 - Hypothyroidism, unspecified (4) GERD (gastroesophageal reflux disease) Esophagitis presence: esophagitis presence not specified Qualified Code(s): K21.9 - Gastro-esophageal reflux disease without esophagitis
--- NOTE | 2022-03-02 17:57 | XRay Report ---
XR chest 1V portable HISTORY: 86 years-old Female ?pulm edema acute shortness of breath COMPARISON: Chest radiograph 02/12/2022 TECHNIQUE: AP view of the chest FINDINGS: Cardiac silhouette is enlarged. Atherosclerosis of the aorta. No pneumothorax, pleural effusion, airs pace consolidation or overt pulmonary edema. Unchanged blunting of the costophrenic angles. Degenerat major changes of the shoulders and spine. IMPRESSION: Cardiomegaly without acute process. ACT 112: Negative or not required by law. The above report was generated using voice recognition software. It may contain grammatical, syntax o r spelling errors. Electronically signed by: Cheo Vargas M.D. 03/02/2022 5:54 PM
[2022-03-02] MEDS ORDERED: ONDANSETRON INJ 2 MG/ML 2 ML VIAL IV PRN (21:26)
[2022-03-02] MEDS ORDERED: ALUMINUM/MAGNESIUM SUSP 30 ML UDC PO PRN (21:26)
[2022-03-02] MEDS ORDERED: NITROGLYCERIN 0.3 MG/1 TAB 100 TAB BTL SL PRN (21:26)
[2022-03-02] MEDS ORDERED: GLUCOSE 40% GEL 15 GM TUBE PO PRN (21:26)
[2022-03-02] MEDS ORDERED: CARBOHYDRATES FOR HYPOGLYCEMIA PO PRN (21:26)
[2022-03-02] MEDS ORDERED: POLYETHYLENE (MIRALAX) 17 GM PACK PO PRN (21:26)
[2022-03-02] MEDS ORDERED: DEXTROSE 50% 50 ML SYRINGE IV PRN (21:26)
[2022-03-02] MEDS ORDERED: GLUCAGON FOR INJ 1 MG VIAL SQ PRN (21:26)
[2022-03-02] MEDS ORDERED: GLUCOSE 10 TAB/TUBE PO PRN (21:26)
[2022-03-02] MEDS: INSULIN ASPART PER UNIT SC SCH (21:59)
[2022-03-02] MEDS: LANTUS PER UNIT CHARGE SQ SCH (22:04)
[2022-03-02] MEDS ORDERED: oxyCODONE HCL IR 5 MG TAB (IMMEDIATE RELEASE) PO STA (22:10)
[2022-03-02] MEDS: NYSTATIN CR 15 GM TUBE EXT SCH (22:19)
[2022-03-02] MEDS: CLOBETASOL PROPIONATE 0.05% OINT 15 GM TUBE EXT SCH (22:19)
[2022-03-02] MEDS: APIXABAN 2.5 MG TAB PO SCH (22:20)
[2022-03-02] MEDS: MIRTAZAPINE TAB 15 MG TAB PO SCH (22:21)
[2022-03-02] MEDS: MAGNESIUM OXIDE 400 MG TAB PO SCH (22:21)
[2022-03-02] MEDS: CEROVITE ADV FORMULA TAB PO SCH (22:21)
[2022-03-02] MEDS: POTASSIUM CHLORIDE 10 MEQ TABCR PO SCH (22:21)
[2022-03-02] MEDS: METOPROLOL SUCC 50MG EXT REL TAB PO SCH (22:22)
[2022-03-03] MEDS: ACETAMINOPHEN 325 MG TAB PO PRN ×2 (04:16→13:13)
[2022-03-03] MEDS: LEVOTHYROXINE SODIUM 50 MCG TABLET PO SCH (05:19)
--- NOTE | 2022-03-03 07:14 | Hospitalist Progress Note ---
Date of Service March 03, 2022 Assessment & Plan (1) Acute on chronic heart failure with preserved ejection fraction: Plan: - CXR: Cardiomegaly with no active disease in the chest. - Home regimen: Bumex 2 mg BID w/ potassium supplement. Reports compliance. - Echo this month: Normal LV function, no wall motion abnormalities, EF 60-65%, mod/severe TR, mild/mod MR. RVSP > 60 mmHg, - Dry weight ~144-145 pounds, patient weight in ED 155 pounds; down to 151 today - Strict I&Os, daily weights, low sodium/DM diet with 1.5 L fluid restriction. - Monitor renal function. Cr slightly elevated at baseline, d/c'd at 1.65, 1.77 today, 1.91 this afternoon. Plan: Continue 2mg Bumex IV BID today and hold morning dose pending morning labs per cardiology. (2) Cirrhosis: Plan: - Noted on outpatient US - Cause unclear - Has been having itching - Chronically elevated total bilirubin and alkaline phosphatase - Will need OP f/u for further workup (3) CAD (coronary artery disease): Plan: - s/p PCI of the proximal LAD on 12/06/[address] Miller. - Stable, without chest pain/palpitations/pressure, shortness of breath. - Continue Imdur, metoprolol, statin, nitroglycerin as needed, Plavix. 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 - Glycemic consult placed on last admission, recommended Lantus 20 units in evening with SSI, goal range 110-140, CF 35, CR 8 - Will order Lantus 10 units BID with SSI as above. - Low-sodium/diabetic diet. - Continue Cymbalta for depression/neuropathy pain. - Hemoglobin A1c= 9.0 12/26; will repeat with am labs (5) Chronic kidney disease (CKD): Plan: - Stage 4 CKD - Renal function at/about baseline. - Renally dose medications as able and avoid nephrotoxins. (6) Atrial fibrillation: Plan: - Permanent, asymptomatic, continue metoprolol and digoxin, Eliquis. (7) Anemia: Plan: - Hgb 9.0, at/near baseline. Likely multifactorial from CKD, hemolysis (elevated t bili, LDH, retic count, low haptoglobin in 2020). - Follows with CCP, last seen by Dr. Carter in December. - Deferring further workup, i.e bone marrow biopsy given age and stability. - For now, as long as Hgb remains stable, will follow up as outpt q3 months. - Continue oral iron supplementation. (8) COPD (chronic obstructive pulmonary disease): Plan: - Continue albuterol as needed. - No evidence of exacerbation today. (9) GERD (gastroesophageal reflux disease): Plan: - Continue Protonix. (10) Venous insufficiency of both lower extremities: Plan: - Elevated legs, encourage compression stockings use. (11) Depression with anxiety: Plan: - Continue Cymbalta. (12) Hypothyroidism: Plan: - Continue levothyroxine 50 mcg daily. Plan - Admit to med/telemetry. - SCDs, DOAC continued for VTE ppx. - DNR/DNI. Admission and Anticipated Discharge Date Admission Date: March 02, 2022 Supervising Physician Co-Signing Physician Notes Attending attestation Pt seen and examined in concert with Dr. Mg. In agreement with the documented findings as noted in the resident documentation with any exceptions or additions as noted here. Resting comfortably with some reduced discomfort of the bilateral lower extremities, though still present. Ongoing pruritis, mostly bilateral upper extremities. VS, nursing notes, labs and imaging reviewed. HFpEF with acute exacerbation in the setting of CAD - significant weight gain but responding to baseline diuretic dosing via IV. Monitor I/O/weight/Cr and adjust as needed with goal of dry weight. CKD IV - trend BMP and diuresis as noted above DMII - check A1c. Continue regimen as noted. New diagnosis of early cirrhotic changes on outpatient imaging - counseling re: utility and timing of hepatology, symptom control and further evaluation. Elevated troponin - likely mild demand ischemia in the setting of fluid overload. Else see resident documentation as noted. Subjective 86 year old female with a past medical history of CAD, HFpEF, a fib, asthma, COPD, DM 2, GERD, BETHANY, chronic venous stasis presented with B/L leg swelling. Increased dry weight from 144 to 154. States she also noticed weeping in right leg. States that she is feeling alright this morning. Still having some pain in her LE B/L, but is uncharged from the past month. Denies chest pain, dyspnea, fever, chills. Also notes that she has been having some itching for the past couple of months, worse in extremities. Review of Systems Review of Systems: As per HPI Physical Exam Physical Exam: Constitutional: well-appearing, no acute distress HEENT: NCAT, no conjunctival injection CV: regular rhythm, no murmur appreciated, extremities well-perfused, +1 pitting edema to mid swanson Resp: CTABL, no wheezes/rales/rhonchi appreciated, no increased work of breathing GI: soft, nondistended, nontender, BS normoactive MSK: no gross deformities appreciated Skin: chronic venous stasis in LE B/L Neuro: alert, oriented, no focal neurologic deficit appreciated Results & Data Results & Data ([facility]) Vital Signs (Past 12 Hours) Vital Signs Temp Pulse Pulse Resp BP BP Pulse Ox 03/03/22 02:54 36.5 C 68 17 139/69 98 03/02/22 23:43 03/02/22 22:45 36.5 C 78 18 138/57 L 99 03/02/22 21:36 36.7 C 74 18 142/82 H 96 03/02/22 19:59 82 20 163/85 H 97 O2 Del Method 03/03/22 02:54 Room Air 03/02/22 23:43 Room Air 03/02/22 22:45 Room Air 03/02/22 21:36 Room Air 03/02/22 19:59 Room Air Resident Activity Tracking Resident Involvement: Resident Care Provided Care Provided: Adult Hospital Medicine (1) Anemia Anemia type: unspecified type Qualified Code(s): D64.9 - Anemia, unspecified (2) Atrial fibrillation Atrial fibrillation type: unspecified Qualified Code(s): I48.91 - Unspecified atrial fibrillation (3) Hypothyroidism Hypothyroidism type: unspecified Qualified Code(s): E03.9 - Hypothyroidism, unspecified (4) GERD (gastroesophageal reflux disease) Esophagitis presence: esophagitis presence not specified Qualified Code(s): K21.9 - Gastro-esophageal reflux disease without esophagitis
[2022-03-03] MEDS: POTASSIUM CHLORIDE 10 MEQ TABCR PO SCH ×2 (07:21→21:42)
[2022-03-03] MEDS: NYSTATIN CR 15 GM TUBE EXT SCH ×3 (07:21→21:43)
[2022-03-03] MEDS: BUMETANIDE 2 MG in SYRINGE 0 ML IV SCH ×2 (07:21→18:43)
[2022-03-03] MEDS: PANTOprazole 40 MG TAB PO SCH (07:21)
[2022-03-03] MEDS: CLOBETASOL PROPIONATE 0.05% OINT 15 GM TUBE EXT SCH ×2 (07:21→21:43)
[2022-03-03] MEDS: MAGNESIUM OXIDE 400 MG TAB PO SCH ×2 (07:22→21:42)
[2022-03-03] MEDS: APIXABAN 2.5 MG TAB PO SCH ×2 (07:22→21:42)
[2022-03-03] MEDS: METOPROLOL SUCC 50MG EXT REL TAB PO SCH ×2 (07:22→22:39)
[2022-03-03] MEDS: CEROVITE ADV FORMULA TAB PO SCH (07:22)
[2022-03-03] MEDS: CLOPIDOGREL BISULFATE 75 MG TAB PO SCH (07:22)
[2022-03-03] MEDS: allopurinoL 300 MG TAB PO SCH (07:22)
[2022-03-03] MEDS: IRON POLYSACCHARIDE COMPLEX 150 MG CAPSULE PO SCH (07:22)
[2022-03-03] MEDS: DULoxetine HCL 30 MG CAP PO SCH (07:22)
[2022-03-03] MEDS: ISOSORBIDE MONO EXTENDED REL 30 MG TABCR PO SCH (07:22)
[2022-03-03] MEDS: CHOLECALCIFEROL 1,000 UNITS 25 MCG TAB PO SCH (07:22)
[2022-03-03] MEDS: DULoxetine HCL 60 MG CAP PO SCH (07:23)
[2022-03-03] MEDS: INSULIN ASPART PER UNIT SC SCH ×4 (08:04→22:37)
[2022-03-03] MEDS: LANTUS PER UNIT CHARGE SQ SCH ×2 (08:05→22:36)
--- NOTE | 2022-03-03 10:43 | Electrocardiogram Report ---
Test Reason : Blood Pressure : / mmHG Vent. Rate : 073 BPM Atrial Rate : 068 BPM P-R Int : 000 ms QRS Dur : 082 ms QT Int : 388 ms P-R-T Axes : 000 -23 172 degrees QTc Int : 427 ms Atrial fibrillation Low voltage QRS Inferior infarct (cited on or before 12-FEB-2022) Abnormal ECG When compared with ECG of 12-FEB-2022 08:53, No significant change was found Confirmed by Joseph Azar ([id number]) on 03/03/2022 10:42:37 AM Referred By: REFERRED SELF Confirmed By:Chucky Azar
--- NOTE | 2022-03-03 14:52 | Heart Failure Consultation ---
Date of Consultation March 03, 2022 Assessment & Plan (1) Lower extremity edema: (2) Mitral regurgitation: (3) Atrial fibrillation: (4) Obstructive sleep apnea: (5) Venous insufficiency of both lower extremities: (6) Chronic heart failure with preserved ejection fraction (HFpEF): Plan 1. Chronic HFpEF: She does not examine excessively hypervolemic on exam today. Symptoms seem to be localized to the lower extremities. She is not having any pulmonary symptoms at this time. CXR without pleural effusion or pulmonary edema. Previous attempts at volume optimization resulted in azotemia. Labs today demonstrate slight bump in creatinine. Would continue with IV diuretics today. Would hold am dose until labs reviewed tomorrow. May need to accept some degree of edema to preserve kidney function. Would continue elevation and compression as tolerated. 2. Atrial fibrillation: She is asymptomatic. Continue rate control strategy with metoprolol. Continue Digoxin. Patient self discontinued her Diltiazem in February. Continue Eliquis for thromboembolic prophylaxis. Her dose was lowered to 2.5 mg BID. For now, continue Eliquis at current dosing. 3. Coronary artery disease: No angina. She is s/p PCI of the proximal LAD on 12/06/[address] Miller. She denies angina. Her LV systolic function is normal. Continue Plavix, Eliquis, atorvastatin, metoprolol, and Imdur. 4. Mitral regurgitation: Previously noted to have moderate MR. Mild on echo when euvolemic. 5. Hypertension: BP well controlled. Continue current therapy. 6. Dyslipidemia: Continue high intensity statin therapy. Monitor liver transaminase levels periodically. 7. Goals of care: Patient has had 9 hospitalizations this year. Her health has definitely declined throughout that timeframe. Her has several health issues (pneumonia, liver CA, failed chemo). She is now in assisted living. Discussed code status as outpatient- she has a living will and her son is her POA. Code status is now DNR/DNI. POLST completed as outpatient. 8. Lower extremity edema: Patient had venous reflux studies in 02/2021- no evidence of reflux or DVT. She had arterial studies 12/2021 with normal ABIs- no evidence of arterial occlusive disease. Continue to optimize volume status but may be limited by renal function. Wound care as needed. Continue elevation and compression. Disposition: Will continue to follow during hospitalization. Recommend outpatient follow up with the heart failure program. 03/13/22 at 1130am History of Present Illness Attending Physician: Guille Doty MD History of Present Illness Ms. Porter is an 86-year-old female with a past medical history significant for HFpEF, coronary artery disease, atrial fibrillation, CAD, mitral regurgitation, type 2 diabetes mellitus, dyslipidemia, hypertension, BETHANY, CKD, hypothyroidism, GERD, gout, and macular degeneration.. Dr. Roland is her primary speech correction assistant. Recent studies: 1. Cardiac catheterization 12/06/18- Severe single vessel coronary artery disease - 50% ostial LAD stenosis. - 90+% acute appearing proximal LAD in-stent restenosis. 50 to 60% earlymid segment after prior stent - diffuse 60% late-mid LAD disease. Borderline intracardiac filling pressure. Successful PCI of proximal to mid LAD with single drug-eluting stent overlapping prior stent (2.5 x 18 mm Xience Aditi; postdilated with 2.75 NC 2. Echocardiogram 08/15/18- Normal left ventricular systolic function 55-60%. RV mildly dilated. LA severely dilated. RA mod dilated. Moderate to severe MR. RVSP elevated at 30-40 mmHg. 3. Echo 04/14/19: LV size, wall motion, and systolic function are normal. EF 65- 70%. Mild MR. Mild TR. 4. 02/12/22 Echo: LV systolic function normal. No RMWA. EF 60-65%. Moderate to severe TR. Mild to moderate MR. Patient has history of multiple hospitalizations and is well known to the heart failure program. Her last outpatient eval was 01/17/22. She was euvolemic at that time. She continued Bumex 2 mg BID. Dry weight 144 lb. She was recently hospitalized from 02/12/22 through 02/17/22 for UTI and HFpEF/cellulitis. She presented with increased edema and weeping from her lower extremities. She denied any pulmonary symptoms. Increased diuretics resulted in azotemia. Patient re-admitted yesterday with similar complaints. She also notes weight gain over the past few days at her facility. She denies shortness of breath. Her only complaint today is leg discomfort. She's had two doses of Bumex 2 mg IV so far. I&Os not well documented. Weight is down 4 lb but is a bed weight. There are no labs today. She denies cough, chest pain, or palpitations. She denies dietary indiscretion prior to admission. Allergies Allergy/AdvReac Type Severity Reaction Status Date / Time shellfish derived Allergy Severe ANAPHYLAXIS Verified 02/24/22 13:18 iodine Allergy Intermediate ANAPHYLAXIS Verified 02/24/22 13:18 lisinopril Allergy Unknown Unknown Verified 02/24/22 13:18 oxybutynin [From Ditropan] Allergy Unknown Unknown Verified 02/24/22 13:18 sertraline [From Zoloft] Allergy Unknown Unknown Verified 02/24/22 13:18 paroxetine AdvReac Mild GI UPSET Verified 02/24/22 13:18 Home Medications Medication Instructions Recorded Confirmed Type cholecalciferol (vitamin D3) 25 2,000 unit PO QAM 05/11/20 03/02/22 History mcg (1,000 unit) tablet (Vitamin D3) polyethylene glycol 3350 17 8.5 g PO DAILY PRN Constipation 01/28/21 03/02/22 History gram/dose oral powder (Miralax) vit C 226 mg-vit E 90 mg-copper 1 cap PO BID 02/01/21 03/02/22 History 0.8 mg-zinc oxide-lutein 5 mg capsule (PreserVision Lutein) acetaminophen 500 mg tablet 1,000 mg PO .QHS 12/06/21 03/02/22 History allopurinol 100 mg tablet 300 mg PO QAM #90 tabs 12/16/21 03/02/22 Rx (Zyloprim) apixaban 2.5 mg tablet (Eliquis) 2.5 mg PO BID #180 tabs 12/16/21 03/02/22 Rx bumetanide 2 mg tablet 2 mg PO BID #60 tabs 12/16/21 03/02/22 Rx clopidogrel 75 mg tablet (Plavix) 75 mg PO QAM #90 tabs 12/16/21 03/02/22 Rx digoxin 125 mcg (0.125 mg) tablet 125 mcg PO Q2D #15 tabs 12/16/21 03/02/22 Rx (Digitek) duloxetine 30 mg capsule,delayed 30 mg PO QAM #90 caps 12/16/21 03/02/22 Rx release (Cymbalta) duloxetine 60 mg capsule,delayed 60 mg PO QAM #90 caps 12/16/21 03/02/22 Rx release (Cymbalta) isosorbide mononitrate 30 mg 30 mg PO QAM #90 tabs 12/16/21 03/02/22 Rx tablet,extended release 24 hr levothyroxine 50 mcg tablet 50 mcg PO DAILYBB #30 tabs 12/16/21 03/02/22 Rx (Synthroid) magnesium oxide 400 mg PO BID #180 tabs 12/16/21 03/02/22 Rx metoprolol succinate 50 mg 150 mg PO BID #540 tabs 12/16/21 03/02/22 Rx tablet,extended release 24 hr (Toprol XL) mirtazapine 15 mg tablet (Remeron) 15 mg PO HS #30 tabs 12/16/21 03/02/22 Rx pantoprazole 40 mg tablet,delayed 40 mg PO QAM #90 tabs 12/16/21 03/02/22 Rx release (Protonix) polysaccharide iron complex 150 mg 150 mg PO QAM #90 caps 12/16/21 03/02/22 Rx iron capsule (Ferrex) potassium chloride 20 mEq 10 meq PO BID #180 tabs 12/16/21 03/02/22 Rx tablet,extended release (K-Tab) insulin glargine 100 unit/mL (3 28 unit (0.28 mL) subcut HS #15 mL 12/18/21 03/02/22 Rx mL) subcutaneous pen (Lantus Solostar U-100 Insulin) glucagon 1 mg solution for 1 mg subcut Q20M PRN hypoglycemia 01/02/22 03/02/22 Rx injection (Glucagon Emergency Kit) #1 ea nitroglycerin 0.3 mg sublingual 0.3 mg sublingual Q5M PRN Chest 01/17/22 03/02/22 History tablet Pain nystatin 100,000 unit/gram topical 1 applic topical TID 2 weeks #30 01/21/22 03/02/22 Rx cream grams insulin aspart U-100 100 unit/mL 7 - 10 unit (0.07 - 0.1 mL) subcut 02/04/22 03/02/22 Rx (3 mL) subcutaneous pen (Novolog TIDM #45 mL Flexpen U-100 Insulin aspart) clobetasol 0.05 % topical cream 1 applic topical BID #30 grams 02/19/22 03/02/22 Rx Patient History Medical History Anemia Asthma Atrial fibrillation CAD (coronary artery disease) Cerebrovascular disease Chronic diastolic congestive heart failure Chronic kidney disease (CKD) Stage III, baseline Cr 1.3-1.5mg/dL. Complicated with normocytic anemia and secondary hyperparathyroidism. Followed by nephrology. 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 Cannot perform MRI due to bladder implant. Followed by pain management. Epidural steroid injections with improvement of pain. Evaluated by ortho, decided against surgery. Managed with gabapentin 300mg TID + APAP PRN + tapentadol 50mg BID PRN GERD (gastroesophageal reflux disease) GIB (gastrointestinal bleeding) History of gout Managed with allopruinol daily. No recent gouty attacks. Uric acid suppressed 3.4 mg/dl (12/22) Hyperlipidemia Secondary prevention with moderate intensity statin (atorvastatin 20mg daily) Hypertension Hypothyroidism Lichen planus Macular degeneration Mitral regurgitation Neurologic gait dysfunction Obstructive sleep apnea Long standing. Managed with CPAP nightly. CPAP titration polysomnography (07/14). Sensorineural hearing loss (SNHL) of both ears Venous insufficiency of both lower extremities Surgical History H/O colonoscopy History of repair of rectocele S/P breast biopsy S/P section S/P cholecystectomy S/P hysterectomy S/P implantation of urinary electronic stimulator device Family History Father , Age 64 No problems noted. Mother , Age 61 No problems noted. Other Coronary heart disease Denies family history of Ovarian cancer Prostate cancer Crohn's disease Breast cancer Lung cancer Colorectal cancer Social History Smoking Status: Never smoker Second Hand Exposure: No; Do You Dip or Chew Tobacco: No; Tobacco Cessation Education Requested by Patient: No Hx Alcohol Use: No Hx Substance Use: No Preferred Language: Bahraini Communication Ability: Effective Visual Impairment: No Limitations Hearing Ability: Normal Cupola Liner Required: No Beliefs That Will Affect Care: None marital status: Single Current Living Situation: Longterm Current Living Situation Comment: [facility] current occupational status: retired How many Children do You have: 3 Other Information That Helps Us Care for You: No Feels Safe at Home: Yes Childhood Exposure to Second-Hand Smoke: No Diet Comment: DIABETIC caffeine: No during the past year weight has: remained stable Dental Care, Regularly: No Physical Activity Frequency: 1-2 Times per Week Seatbelt Use: always Sunscreen Use: Yes Assistive Devices: Cane and Walker Physical Exam Physical Exam: Constitutional: Alert, oriented, in no acute distress HEENT: Head is atraumatic and normocephalic. EOMs intact. Sclera anicteric. Face is symmetric. No perioral cyanosis. Mucous membranes moist. Neck: Supple, no JVD, no carotid bruits Pulmonary: Normal respiratory effort. Clear to auscultation. No wheezes, rales, or crackles. Cardiac: Irregularly irregular, normal S1 and S2, no gallops, no rubs, no obvious murmurs Extremities: 1-2+ BL lower extremity edema. No clubbing or cyanosis. Pulses intact. No evidence of cellulitis. No active drainage. Scabbed lesions BL. Mild patchy erythema. Abdomen: Obese. Normal bowel sounds, soft, non-tender, no abdominal mass palpated Skin: No rash, lesions. Neurological: Oriented to person, place, and time Results & Data ([facility]) Vital Signs (Past 12 Hours) Vital Signs Temp Pulse Resp BP Pulse Ox O2 Del Method 03/03/22 08:15 Room Air 03/03/22 07:57 97.3 F L 69 18 148/62 H 98 Room Air 03/03/22 02:54 97.7 F 68 17 139/69 98 Room Air 03/02/22 23:43 Room Air Coding Level of Care Code 18129 Initial Inpt Care Lvl 3 Diagnoses Lower extremity edema R60.0 Mitral regurgitation I34.0 Atrial fibrillation I48.91 Atrial fibrillation type: unspecified Obstructive sleep apnea G47.33 Venous insufficiency of both lower extremities I87.2 Chronic heart failure with preserved ejection fraction (HFpEF) I50.32 (1) Atrial fibrillation Atrial fibrillation type: unspecified Qualified Code(s): I48.91 - Unspecified atrial fibrillation
[2022-03-03 15:46] LABS: BUN Creatinine Ratio 26.2 (10-20); Calcium 9.1 mg/dl (8.5-10.1); Creatinine Clr Calc Pharmacy 17.5 ml/min; Est GFR (African American) 27.4 ml/min; Est GFR (Non-African American) 23.6 ml/min; Potassium 3.9 mmol/L (3.5-5.1)
[2022-03-03] MEDS ORDERED: DIGOXIN 0.125 MG TAB PO SCH (16:00)
[2022-03-03] MEDS: MIRTAZAPINE TAB 15 MG TAB PO SCH (21:42)
[2022-03-04] MEDS: ACETAMINOPHEN 325 MG TAB PO PRN ×2 (04:26→19:57)
[2022-03-04] MEDS: LEVOTHYROXINE SODIUM 50 MCG TABLET PO SCH (05:57)
--- NOTE | 2022-03-04 07:02 | Hospitalist Progress Note ---
Date of Service March 04, 2022 Assessment & Plan (1) Acute on chronic heart failure with preserved ejection fraction: Plan: - CXR: Cardiomegaly with no active disease in the chest. - Home regimen: Bumex 2 mg BID w/ potassium supplement. Reports compliance. - Echo this month: Normal LV function, no wall motion abnormalities, EF 60-65%, mod/severe TR, mild/mod MR. RVSP > 60 mmHg, - Dry weight ~144-145 pounds, patient weight in ED 155 pounds; down to 145 today - Strict I&Os, daily weights, low sodium/DM diet with 1.5 L fluid restriction. - Monitor renal function. Cr slightly elevated at baseline, d/c'd at 1.65, 1.77 today, 1.91 this afternoon. Plan: Appears euvolemic on exam. Will transition to home dose of Bumex 2mg BID. (2) Cirrhosis: Plan: - Noted on outpatient US - Cause unclear - Has been having itching - Chronically elevated total bilirubin and alkaline phosphatase - Will need OP f/u for further workup (3) CAD (coronary artery disease): Plan: - s/p PCI of the proximal LAD on 12/06/[address] Miller. - Stable, without chest pain/palpitations/pressure, shortness of breath. - Continue Imdur, metoprolol, statin, nitroglycerin as needed, Plavix. 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 - Glycemic consult placed on last admission, recommended Lantus 20 units in evening with SSI, goal range 110-140, CF 35, CR 8 - Will order Lantus 10 units BID with SSI as above. - Low-sodium/diabetic diet. - Continue Cymbalta for depression/neuropathy pain. - Hemoglobin A1c= 5.1 today, down down from 9.0 12/26 (5) Chronic kidney disease (CKD): Plan: - Stage 4 CKD - Renal function at/about baseline. - Renally dose medications as able and avoid nephrotoxins. (6) Atrial fibrillation: Plan: - Permanent, asymptomatic, continue metoprolol and digoxin, Eliquis. (7) Anemia: Plan: - Hgb 9.0, at/near baseline. Likely multifactorial from CKD, hemolysis (elevated t bili, LDH, retic count, low haptoglobin in 2020). - Follows with CCP, last seen by Dr. Carter in December. - Deferring further workup, i.e bone marrow biopsy given age and stability. - For now, as long as Hgb remains stable, will follow up as outpt q3 months. - Continue oral iron supplementation. (8) COPD (chronic obstructive pulmonary disease): Plan: - Continue albuterol as needed. - No evidence of exacerbation today. (9) GERD (gastroesophageal reflux disease): Plan: - Continue Protonix. (10) Venous insufficiency of both lower extremities: Plan: - Elevated legs, encourage compression stockings use. (11) Depression with anxiety: Plan: - Continue Cymbalta. (12) Hypothyroidism: Plan: - Continue levothyroxine 50 mcg daily. Plan - Admit to med/telemetry. - SCDs, DOAC continued for VTE ppx. - DNR/DNI. Admission and Anticipated Discharge Date Admission Date: March 02, 2022 Supervising Physician Co-Signing Physician Notes Attending attestation Pt seen and examined in concert with Dr. Mg. In agreement with the documented findings as noted in the resident documentation with any exceptions or additions as noted here. Still complaining of ongoing chronic LE discomfort and pruritis but unchanged. Subjective improvement in swelling. VS, nursing notes, labs and imaging reviewed. On examination, S1/S2 nl RRR no MCG. CTAB. Abd NT/ND BS+ve. 1+ pitting edema bilaterally to the mid swanson worse on the right. HFpEF with acute exacerbation in the setting of CAD - transition to PO bumetanide and monitor Cr/I/O/weight. Counseled again re: low sodium diet and the importance of same. CKD IV - returned to admitting level. trend BMP and diuresis as noted above DMII - A1c pending. Continue regimen as noted. New diagnosis of early cirrhotic changes on outpatient imaging - counseling re: utility and timing of hepatology, symptom control and further evaluation. LFTs stable. Else see resident documentation as noted. Subjective 86 year old female with a past medical history of CAD, HFpEF, a fib, asthma, COPD, DM 2, GERD, BETHANY, chronic venous stasis presented with B/L leg swelling. Increased dry weight from 144 to 154. States she also noticed weeping in right leg. Tiffanie states that she is feeling well this morning. Still having pain in LE, same from past few months. Denies fever, chills, dyspnea, chest pain. States she was able to ambulate with PT. Review of Systems Review of Systems: As per HPI Physical Exam Physical Exam: Constitutional: well-appearing, no acute distress HEENT: NCAT, no conjunctival injection CV: regular rhythm, no murmur appreciated, extremities well-perfused, pitting edema to mid swanson Resp: CTABL, no wheezes/rales/rhonchi appreciated, no increased work of breathing GI: soft, nondistended, nontender, BS normoactive MSK: no gross deformities appreciated Skin: chronic venous stasis in LE B/L Neuro: alert, oriented, no focal neurologic deficit appreciated Results & Data Results & Data ([facility]) Vital Signs (Past 12 Hours) Vital Signs Temp Pulse Pulse Resp BP BP Pulse Ox 03/04/22 04:18 36.6 C 72 18 170/80 H 98 03/03/22 22:15 65 03/04/22 00:47 149/79 H 03/03/22 21:30 03/04/22 00:21 36.4 C L 68 18 181/93 H 92 03/03/22 19:56 36.5 C 70 18 144/78 H 95 O2 Del Method 03/04/22 04:18 Room Air 03/03/22 22:15 03/04/22 00:47 03/03/22 21:30 Room Air 03/04/22 00:21 Room Air 03/03/22 19:56 Room Air (1) Anemia Anemia type: unspecified type Qualified Code(s): D64.9 - Anemia, unspecified (2) Atrial fibrillation Atrial fibrillation type: unspecified Qualified Code(s): I48.91 - Unspecified atrial fibrillation (3) Hypothyroidism Hypothyroidism type: unspecified Qualified Code(s): E03.9 - Hypothyroidism, unspecified (4) GERD (gastroesophageal reflux disease) Esophagitis presence: esophagitis presence not specified Qualified Code(s): K21.9 - Gastro-esophageal reflux disease without esophagitis
[2022-03-04] MEDS: APIXABAN 2.5 MG TAB PO SCH ×2 (07:47→20:01)
[2022-03-04] MEDS: METOPROLOL SUCC 50MG EXT REL TAB PO SCH ×2 (07:47→20:00)
[2022-03-04] MEDS: MAGNESIUM OXIDE 400 MG TAB PO SCH ×2 (07:47→20:01)
[2022-03-04] MEDS: CHOLECALCIFEROL 1,000 UNITS 25 MCG TAB PO SCH (07:47)
[2022-03-04] MEDS: POTASSIUM CHLORIDE 10 MEQ TABCR PO SCH ×2 (07:47→20:00)
[2022-03-04] MEDS: DULoxetine HCL 30 MG CAP PO SCH (07:48)
[2022-03-04] MEDS: PANTOprazole 40 MG TAB PO SCH (07:48)
[2022-03-04] MEDS: DULoxetine HCL 60 MG CAP PO SCH (07:48)
[2022-03-04] MEDS: CEROVITE ADV FORMULA TAB PO SCH (07:48)
[2022-03-04] MEDS: CLOPIDOGREL BISULFATE 75 MG TAB PO SCH (07:48)
[2022-03-04] MEDS: IRON POLYSACCHARIDE COMPLEX 150 MG CAPSULE PO SCH (07:49)
[2022-03-04] MEDS: ISOSORBIDE MONO EXTENDED REL 30 MG TABCR PO SCH (07:49)
[2022-03-04] MEDS: allopurinoL 300 MG TAB PO SCH (07:49)
[2022-03-04] MEDS: INSULIN ASPART PER UNIT SC SCH ×4 (08:38→21:24)
[2022-03-04] MEDS: CLOBETASOL PROPIONATE 0.05% OINT 15 GM TUBE EXT SCH ×2 (08:39→20:01)
[2022-03-04] MEDS: NYSTATIN CR 15 GM TUBE EXT SCH ×3 (08:40→20:02)
[2022-03-04] MEDS: LANTUS PER UNIT CHARGE SQ SCH ×2 (08:40→21:23)
[2022-03-04 09:17] LABS: Hematocrit (blood only) 30.2 % (34.1-44.9); Hemoglobin 9.2 g/dl (12.0-16.0); Mean Corpuscular Hemoglobin 34.1 pg (25.0-34.0); Mean Corpuscular Hgb Conc 30.5 g/dL (32.0-36.0); Mean Corpuscular Volume 111.9 fL (80.0-100.0); Nucleated RBC # (auto) 0.04 K/uL (0-0); Nucleated RBC % (auto) 0.4 %; RDW Coefficient of Variation 22.4 % (11.5-14.5); RDW Standard Deviation 88.6 fL (36.4-46.3)
[2022-03-04 09:46] LABS: Albumin Globulin Ratio 1.3 (0.9-2); Albumin Level 3.7 gm/dl (3.4-5.0); BUN Creatinine Ratio 27.2 (10-20); Bilirubin,Total 2.8 mg/dl (0.2-1.0); Creatinine Clr Calc Pharmacy 19.4 ml/min; Est GFR (African American) 31.8 ml/min; Est GFR (Non-African American) 27.4 ml/min; Globulin 2.8 gm/dl (2.5-4.0); Potassium 3.7 mmol/L (3.5-5.1); Total Protein 6.5 gm/dl (6.0-8.3)
[2022-03-04 09:58] LABS: Mean Platelet Volume 13.7 fL (9.4-12.3); Platelet Count 185 K/uL (130-400)
[2022-03-04 10:21] LABS: Estimated Average Glucose 100 mg/dl; Hemoglobin A1C 5.1 % (4.5-5.6)
--- NOTE | 2022-03-04 16:43 | Heart Failure Progress Note ---
Date of Service March 04, 2022 Assessment & Plan (1) Lower extremity edema: (2) Mitral regurgitation: (3) Atrial fibrillation: (4) Obstructive sleep apnea: (5) Venous insufficiency of both lower extremities: (6) Chronic heart failure with preserved ejection fraction (HFpEF): Plan 1. Chronic HFpEF: She does not examine excessively hypervolemic on exam today. Symptoms seem to be localized to the lower extremities. She is not having any pulmonary symptoms at this time. CXR without pleural effusion or pulmonary edema. Previous attempts at volume optimization resulted in azotemia. Labs today demonstrate improvement in kidney function. She has been transitioned to her home oral regimen of Bumex 2 mg BID. May need to accept some degree of edema to preserve kidney function. Would continue elevation and compression as tolerated. 2. Atrial fibrillation: She is asymptomatic. Continue rate control strategy with metoprolol. Continue Digoxin. Patient self discontinued her Diltiazem in February. Continue Eliquis for thromboembolic prophylaxis. Her dose was lowered to 2.5 mg BID. For now, continue Eliquis at current dosing. 3. Coronary artery disease: No angina. She is s/p PCI of the proximal LAD on 12/06/[address] Miller. She denies angina. Her LV systolic function is normal. Continue Plavix, Eliquis, atorvastatin, metoprolol, and Imdur. 4. Mitral regurgitation: Previously noted to have moderate MR. Mild on echo when euvolemic. 5. Hypertension: BP well controlled. Continue current therapy. 6. Dyslipidemia: Continue high intensity statin therapy. Monitor liver transaminase levels periodically. 7. Goals of care: Patient has had 9 hospitalizations this year. Her health has definitely declined throughout that timeframe. Her has several health issues (pneumonia, liver CA, failed chemo). She is now in assisted living. Discussed code status as outpatient- she has a living will and her son is her POA. Code status is now DNR/DNI. POLST completed as outpatient. 8. Lower extremity edema: Patient had venous reflux studies in 02/2021- no evidence of reflux or DVT. She had arterial studies 12/2021 with normal ABIs- no evidence of arterial occlusive disease. Continue to optimize volume status but may be limited by renal function. Wound care as needed. Continue elevation and compression. Disposition: Will continue to follow during hospitalization. Recommend outpatient follow up with the heart failure program. 03/13/22 at 1130am Admission and Anticipated Discharge Date Admission Date: March 02, 2022 Subjective Patient resting comfortably in bed. No breathing complaints today. Did not sleep well due to interruptions. Legs feeling improved. She's net negative 1.3L and weight is 145 lb standing. Kidney function improved today. Physical Exam Physical Exam: Constitutional: Alert, oriented, in no acute distress HEENT: Head is atraumatic and normocephalic. EOMs intact. Sclera anicteric. Face is symmetric. No perioral cyanosis. Mucous membranes moist. Neck: Supple, no JVD, no carotid bruits Pulmonary: Normal respiratory effort. Clear to auscultation. No wheezes, rales, or crackles. Cardiac: Irregularly irregular, normal S1 and S2, no gallops, no rubs, no obvious murmurs Extremities: 1-2+ BL lower extremity edema. No clubbing or cyanosis. Pulses intact. No evidence of cellulitis. No active drainage. Scabbed lesions BL. Mild patchy erythema. Abdomen: Obese. Normal bowel sounds, soft, non-tender, no abdominal mass palpated Skin: No rash, lesions. Neurological: Oriented to person, place, and time Results & Data ([facility]) Vital Signs (Past 12 Hours) Vital Signs Temp Pulse Resp BP Pulse Ox O2 Del Method 03/04/22 14:48 97.3 F L 75 16 158/78 H 94 Room Air 03/04/22 11:17 97.5 F L 86 20 133/71 96 Room Air 03/04/22 08:00 Room Air 03/04/22 07:50 98.2 F 76 20 124/72 92 Room Air PG Care Time/CCT Total # of Minutes Spent Total Time Spent with Patient: Total time spent is greater than 50% in coordination of care (as documented) at patient's floor/unit and/or counseling patient: Coding Level of Care Code 06397 Subseq Hosp Care Lvl 3 Diagnoses Lower extremity edema R60.0 Mitral regurgitation I34.0 Atrial fibrillation I48.91 Atrial fibrillation type: unspecified Obstructive sleep apnea G47.33 Venous insufficiency of both lower extremities I87.2 Chronic heart failure with preserved ejection fraction (HFpEF) I50.32 (1) Atrial fibrillation Atrial fibrillation type: unspecified Qualified Code(s): I48.91 - Unspecified atrial fibrillation
[2022-03-04] MEDS: BUMETANIDE 1 MG TAB PO SCH (17:07)
[2022-03-04] MEDS: MIRTAZAPINE TAB 15 MG TAB PO SCH (19:59)
[2022-03-05] MEDS: LEVOTHYROXINE SODIUM 50 MCG TABLET PO SCH (05:28)
[2022-03-05] MEDS: CEROVITE ADV FORMULA TAB PO SCH (07:35)
[2022-03-05] MEDS: IRON POLYSACCHARIDE COMPLEX 150 MG CAPSULE PO SCH (07:35)
[2022-03-05] MEDS: APIXABAN 2.5 MG TAB PO SCH (07:35)
[2022-03-05] MEDS: ISOSORBIDE MONO EXTENDED REL 30 MG TABCR PO SCH (07:35)
[2022-03-05] MEDS: DULoxetine HCL 60 MG CAP PO SCH (07:36)
[2022-03-05] MEDS: PANTOprazole 40 MG TAB PO SCH (07:36)
[2022-03-05] MEDS: MAGNESIUM OXIDE 400 MG TAB PO SCH (07:36)
[2022-03-05] MEDS: METOPROLOL SUCC 50MG EXT REL TAB PO SCH (07:36)
[2022-03-05] MEDS: BUMETANIDE 1 MG TAB PO SCH (07:36)
[2022-03-05] MEDS: DULoxetine HCL 30 MG CAP PO SCH (07:36)
[2022-03-05] MEDS: CLOPIDOGREL BISULFATE 75 MG TAB PO SCH (07:37)
[2022-03-05] MEDS: CHOLECALCIFEROL 1,000 UNITS 25 MCG TAB PO SCH (07:37)
[2022-03-05] MEDS: allopurinoL 300 MG TAB PO SCH (07:37)
[2022-03-05] MEDS: CLOBETASOL PROPIONATE 0.05% OINT 15 GM TUBE EXT SCH (07:37)
[2022-03-05] MEDS: NYSTATIN CR 15 GM TUBE EXT SCH ×2 (07:38→12:09)
--- NOTE | 2022-03-05 07:38 | Hospitalist Progress Note ---
Date of Service March 05, 2022 Assessment & Plan (1) Acute on chronic heart failure with preserved ejection fraction: Plan: - CXR: Cardiomegaly with no active disease in the chest. - Home regimen: Bumex 2 mg BID w/ potassium supplement. Reports compliance. - Echo this month: Normal LV function, no wall motion abnormalities, EF 60-65%, mod/severe TR, mild/mod MR. RVSP > 60 mmHg, - Dry weight ~144-145 pounds, patient weight in ED 155 pounds; down to 145 today - Strict I&Os, daily weights, low sodium/DM diet with 1.5 L fluid restriction. - Monitor renal function. Cr slightly elevated at baseline, d/c'd at 1.65, 1.77 today, 1.91 this afternoon. Plan: Appears euvolemic on exam. Will transition to home dose of Bumex 2mg BID. (2) Cirrhosis: Plan: - Noted on outpatient US - Cause unclear - Has been having itching - Chronically elevated total bilirubin and alkaline phosphatase - Will need OP f/u for further workup (3) CAD (coronary artery disease): Plan: - s/p PCI of the proximal LAD on 12/06/[address] Miller. - Stable, without chest pain/palpitations/pressure, shortness of breath. - Continue Imdur, metoprolol, statin, nitroglycerin as needed, Plavix. 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 - Glycemic consult placed on last admission, recommended Lantus 20 units in evening with SSI, goal range 110-140, CF 35, CR 8 - Will order Lantus 10 units BID with SSI as above. - Low-sodium/diabetic diet. - Continue Cymbalta for depression/neuropathy pain. - Hemoglobin A1c= 5.1 today, down down from 9.0 12/26 (5) Chronic kidney disease (CKD): Plan: - Stage 4 CKD - Renal function at/about baseline. - Renally dose medications as able and avoid nephrotoxins. (6) Atrial fibrillation: Plan: - Permanent, asymptomatic, continue metoprolol and digoxin, Eliquis. (7) Anemia: Plan: - Hgb 9.0, at/near baseline. Likely multifactorial from CKD, hemolysis (elevated t bili, LDH, retic count, low haptoglobin in 2020). - Follows with CCP, last seen by Dr. Carter in December. - Deferring further workup, i.e bone marrow biopsy given age and stability. - For now, as long as Hgb remains stable, will follow up as outpt q3 months. - Continue oral iron supplementation. (8) COPD (chronic obstructive pulmonary disease): Plan: - Continue albuterol as needed. - No evidence of exacerbation today. (9) GERD (gastroesophageal reflux disease): Plan: - Continue Protonix. (10) Venous insufficiency of both lower extremities: Plan: - Elevated legs, encourage compression stockings use. (11) Depression with anxiety: Plan: - Continue Cymbalta. (12) Hypothyroidism: Plan: - Continue levothyroxine 50 mcg daily. Plan - Admit to med/telemetry. - SCDs, DOAC continued for VTE ppx. - DNR/DNI. Admission and Anticipated Discharge Date Admission Date: March 02, 2022 Subjective 86 year old female with a past medical history of CAD, HFpEF, a fib, asthma, COPD, DM 2, GERD, BETHANY, chronic venous stasis presented with B/L leg swelling. Increased dry weight from 144 to 154. States she also noticed weeping in right leg. Tiffanie states that she is feeling well this morning. Still having pain in LE, same from past few months. Denies fever, chills, dyspnea, chest pain. States she was able to ambulate with PT. Review of Systems Review of Systems: As per HPI Physical Exam Physical Exam: Constitutional: well-appearing, no acute distress HEENT: NCAT, no conjunctival injection CV: regular rhythm, no murmur appreciated, extremities well-perfused, pitting edema to mid swanson Resp: CTABL, no wheezes/rales/rhonchi appreciated, no increased work of breathing GI: soft, nondistended, nontender, BS normoactive MSK: no gross deformities appreciated Skin: chronic venous stasis in LE B/L Neuro: alert, oriented, no focal neurologic deficit appreciated Results & Data Results & Data ([facility]) Vital Signs (Past 12 Hours) Vital Signs Temp Pulse Pulse Resp BP BP Pulse Ox 03/05/22 07:13 73 18 154/62 H 96 03/05/22 04:32 36.3 C L 73 18 130/78 96 03/04/22 22:20 76 03/04/22 20:00 03/04/22 23:54 36.6 C 76 20 150/74 H 94 O2 Del Method 03/05/22 07:13 Room Air 03/05/22 04:32 Room Air 03/04/22 22:20 03/04/22 20:00 Room Air 03/04/22 23:54 Room Air (1) Atrial fibrillation Atrial fibrillation type: unspecified Qualified Code(s): I48.91 - Unspecified atrial fibrillation (2) Anemia Anemia type: unspecified type Qualified Code(s): D64.9 - Anemia, unspecified (3) GERD (gastroesophageal reflux disease) Esophagitis presence: esophagitis presence not specified Qualified Code(s): K21.9 - Gastro-esophageal reflux disease without esophagitis (4) Hypothyroidism Hypothyroidism type: unspecified Qualified Code(s): E03.9 - Hypothyroidism, unspecified
[2022-03-05] MEDS: POTASSIUM CHLORIDE 10 MEQ TABCR PO SCH (07:39)
[2022-03-05] MEDS: ACETAMINOPHEN 325 MG TAB PO PRN (08:05)
[2022-03-05] MEDS: INSULIN ASPART PER UNIT SC SCH ×2 (08:13→12:13)
[2022-03-05] MEDS: LANTUS PER UNIT CHARGE SQ SCH (08:38)
[2022-03-05 10:34] LABS: Hematocrit (blood only) 30.2 % (34.1-44.9); Hemoglobin 9.4 g/dl (12.0-16.0); Mean Corpuscular Hemoglobin 34.8 pg (25.0-34.0); Mean Corpuscular Hgb Conc 31.1 g/dL (32.0-36.0); Mean Corpuscular Volume 111.9 fL (80.0-100.0); Nucleated RBC # (auto) 0.04 K/uL (0-0); Nucleated RBC % (auto) 0.6 %; RDW Coefficient of Variation 23.1 % (11.5-14.5); RDW Standard Deviation 90.7 fL (36.4-46.3); White Blood Count 6.42 K/ul (4.8-10.8)
[2022-03-05 11:02] LABS: Mean Platelet Volume 13.7 fL (9.4-12.3); Platelet Count 168 K/uL (130-400)
[2022-03-05 11:03] LABS: Albumin Globulin Ratio 1.3 (0.9-2); Albumin Level 3.7 gm/dl (3.4-5.0); BUN Creatinine Ratio 26.7 (10-20); Bilirubin,Total 3.4 mg/dl (0.2-1.0); Creatinine Clr Calc Pharmacy 18.5 ml/min; Est GFR (African American) 30.2 ml/min; Est GFR (Non-African American) 26.1 ml/min; Globulin 2.9 gm/dl (2.5-4.0); Total Protein 6.6 gm/dl (6.0-8.3)
--- NOTE | 2022-03-05 12:18 | Discharge Summary ---
Date of Service March 05, 2022 Admission HPI Per Admitting Provider Tiffanie Porter is an 86-year-old female with a past medical history significant for CAD, diastolic heart failure, A. fib, asthma, COPD, diabetes, CAD, GERD, GI bleed, anemia, there is some, BETHANY who is presenting today with bilateral leg swelling and pain. She resided at [facility], where staff noticed today worsening b/l swelling in her legs and recommend she come to the ED for evaluation. Her dry weight is 144 to 145 pounds, today she weighs 154. She has her usual pain in the legs and minimal weeping, and some mild edema, she states it is a bit worse than her usual baseline. Trouble laying flat due to nausea but does not have any orthopnea, worsening of her chronic nonproductive cough, chest pain or palpitations. She has been compliant with her home diuretics and low-sodium diet. She has a longstanding history of CHF and was recently admitted from our facility from 02/12-02/17 for similar presentation of lower leg swelling with pain, weeping. Her home dose is 2 mg Bumex p.o. twice daily, this was transitioned to 2 mg IV twice daily, and then increase to 3 mg twice daily, however her renal function was placed back on 2 mg IV BID and discharged on her usual 2 mg PO BID. An echo was ordered at that time which did not show significant changes over the past year. Ultimately, no cause of heart failure was identified. Prior to admission there is no change in dose, diet, and no concern for MD, elevated LFTs, or trace protein in urine. Only possible exacerbation at the time may have been her UTI. It was also felt that because her heart failure is mainly right-sided, limit on diuresis has been met. Labs significant for BNP of 1500, troponin 27.1 which is her usual baseline, renal function slightly increased at , was 1.65 on d/c 02/17, 1.55 on last admit. No leukocytosis, she has a chronic microcytic anemia, no electrolyte abnormalities, or elevated LFTs. Principal Diagnosis Acute on Chronic CHF Discharge Exam Constitutional: well-appearing, no acute distress HEENT: NCAT, no conjunctival injection CV: regular rhythm, no murmur appreciated, extremities well-perfused, trace LE edema Resp: CTABL, no wheezes/rales/rhonchi appreciated, no increased work of breathing GI: soft, nondistended, nontender, BS normoactive MSK: no gross deformities appreciated Skin: chronic venous stasis in LE B/L Neuro: alert, oriented, no focal neurologic deficit appreciated Discharge Data Allergies Allergy/AdvReac Type Severity Reaction Status Date / Time shellfish derived Allergy Severe ANAPHYLAXIS Verified 02/24/22 13:18 iodine Allergy Intermediate ANAPHYLAXIS Verified 02/24/22 13:18 lisinopril Allergy Unknown Unknown Verified 02/24/22 13:18 oxybutynin [From Ditropan] Allergy Unknown Unknown Verified 02/24/22 13:18 sertraline [From Zoloft] Allergy Unknown Unknown Verified 02/24/22 13:18 paroxetine AdvReac Mild GI UPSET Verified 02/24/22 13:18 Consultations 03/02/22 18:59 ED Decision to Admit Stat 03/02/22 21:26 [facility] CHF Program Referral Routine Ordered Studies Laboratory Results WBC 6.42 K/ul (4.8-10.8) 03/05/22 09:47 RBC 2.70 M/uL (3.93-5.22) L 03/05/22 09:47 Hgb 9.4 g/dl (12.0-16.0) L 03/05/22 09:47 Hct 30.2 % (34.1-44.9) L 03/05/22 09:47 MCV 111.9 fL (80.0-100.0) H 03/05/22 09:47 MCH 34.8 pg (25.0-34.0) H 03/05/22 09:47 MCHC 31.1 g/dL (32.0-36.0) L 03/05/22 09:47 RDW Std Deviation 90.7 fL (36.4-46.3) H 03/05/22 09:47 RDW Coeff of Talia 23.1 % (11.5-14.5) H 03/05/22 09:47 Plt Count 168 K/uL (130-400) 03/05/22 09:47 MPV 13.7 fL (9.4-12.3) H 03/05/22 09:47 Immature Gran % (Auto) 1.2 % 03/02/22 16:00 Neut % (Auto) 70.8 % 03/02/22 16:00 Lymph % (Auto) 10.9 % 03/02/22 16:00 [place] % (Auto) 10.0 % 03/02/22 16:00 Eos % (Auto) 6.7 % 03/02/22 16:00 Baso % (Auto) 0.4 % 03/02/22 16:00 Neut # (Auto) 4.86 K/uL (1.4-6.5) 03/02/22 16:00 Lymph # (Auto) 0.75 K/uL (1.2-3.4) L 03/02/22 16:00 [place] # (Auto) 0.69 K/uL (0.24-0.82) 03/02/22 16:00 Eos # (Auto) 0.46 K/uL (0-0.50) 03/02/22 16:00 Baso # (Auto) 0.03 K/uL (0-0.2) 03/02/22 16:00 Immature Gran # (Auto) 0.08 K/uL (0.00-0.02) H 03/02/22 16:00 Absolute Nucleated RBC 0.04 K/uL (0-0) H 03/05/22 09:47 Nucleated RBC % (auto) 0.6 % 03/05/22 09:47 Polychromasia 1+ 03/02/22 16:00 Ovalocytes 3+ 03/02/22 16:00 Schistocytes 1+ 03/02/22 16:00 Sodium 141 mmol/L (136-145) 03/05/22 09:47 Potassium 4.0 mmol/L (3.5-5.1) 03/05/22 09:47 Chloride 99 mmol/L (98-107) 03/05/22 09:47 Carbon Dioxide 34 mmol/L (21-32) H 03/05/22 09:47 Anion Gap 8 (3-11) 03/05/22 09:47 BUN 47 mg/dl (6-23) H 03/05/22 09:47 Creatinine 1.76 mg/dl (0.6-1.2) H 03/05/22 09:47 Est Cr Clr Drug Dosing 18.5 ml/min 03/05/22 09:47 Est GFR ( Amer) 30.2 ml/min 03/05/22 09:47 Est GFR (Non-Af Amer) 26.1 ml/min 03/05/22 09:47 BUN/Creatinine Ratio 26.7 (10-20) H 03/05/22 09:47 Glucose 162 mg/dl (70-99(Fasting)) H 03/05/22 09:47 POC Glucose 121 mg/dl (70-99) H 03/05/22 11:46 Estimat Average Glucose 100 mg/dl 03/04/22 08:59 Hemoglobin A1c 5.1 % (4.5-5.6) 03/04/22 08:59 Calcium 9.0 mg/dl (8.5-10.1) 03/05/22 09:47 Magnesium 2.0 mg/dl (1.7-2.4) 03/04/22 08:59 Total Bilirubin 3.4 mg/dl (0.2-1.0) H 03/05/22 09:47 AST 30 U/L (13-39) 03/05/22 09:47 ALT 22 U/L (7-52) 03/05/22 09:47 Alkaline Phosphatase 232 U/L (34-104) H 03/05/22 09:47 Troponin I High Sens 27.1 pg/ml (0-14) H 03/02/22 16:00 B-Natriuretic Peptide 1303 pg/ml (0-100) H 03/03/22 15:12 Total Protein 6.6 gm/dl (6.0-8.3) 03/05/22 09:47 Albumin 3.7 gm/dl (3.4-5.0) 03/05/22 09:47 Globulin 2.9 gm/dl (2.5-4.0) 03/05/22 09:47 Albumin/Globulin Ratio 1.3 (0.9-2) 03/05/22 09:47 TSH 2.042 uIu/ml (0.300-4.500) 03/02/22 16:00 SARS-CoV-2, RNA, NAAT NEGATIVE (NEGATIVE) 03/02/22 18:41 Impressions Chest X-Ray 03/02/22 17:41 XR chest 1V portable HISTORY: 86 years-old Female ?pulm edema acute shortness of breath COMPARISON: Chest radiograph 02/12/2022 TECHNIQUE: AP view of the chest FINDINGS: Cardiac silhouette is enlarged. Atherosclerosis of the aorta. No pneumothorax, pleural effusion, airspace consolidation or overt pulmonary edema. Unchanged blunting of the costophrenic angles. Degenerative changes of the shoulders and spine. IMPRESSION: Cardiomegaly without acute process. ACT 112: Negative or not required by law. The above report was generated using voice recognition software. It may contain grammatical, syntax or spelling errors. Electronically signed by: Cheo Vargas M.D. 03/02/2022 5:54 PM Hospital Course (1) Acute on chronic heart failure with preserved ejection fraction: (1) Acute on chronic heart failure with preserved ejection fraction: - CXR: Cardiomegaly with no active disease in the chest. - Home regimen: Bumex 2 mg BID w/ potassium supplement. Reports compliance. - Echo this month: Normal LV function, no wall motion abnormalities, EF 60-65%, mod/severe TR, mild/mod MR. RVSP > 60 mmHg, - Dry weight ~144-145 pounds, patient weight in ED 155 pounds; pt down to dry weight upon d/c. Improvement in LE edema. - Treated with low sodium diet, fluid restriction, IV Bumex 2mg BID transitioned to home dose Bumex PO 2mg BID - Does have chronic venous stasis. No new erythema or signs of infectious/cellulitis. (2) Cirrhosis: - Noted on outpatient US - Cause unclear - Has been having itching - Chronically elevated total bilirubin and alkaline phosphatase - Will need OP f/u for further workup (3) CAD (coronary artery disease): - s/p PCI of the proximal LAD on 12/06/[address] Miller. - Stable, without chest pain/palpitations/pressure, shortness of breath. - Continue Imdur, metoprolol, statin, nitroglycerin as needed, Plavix. 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 - Glycemic consult placed on last admission, recommended Lantus 20 units in evening with SSI, goal range 110-140, CF 35, CR 8 - Will order Lantus 10 units BID with SSI as above. - Low-sodium/diabetic diet. - Continue Cymbalta for depression/neuropathy pain. - Hemoglobin A1c= 5.1 today, down down from 9.0 12/26. Will likely need adjust of insulin dosing per PCP (5) Chronic kidney disease (CKD): - Stage 4 CKD - Renal function at/about baseline. - Renally dose medications as able and avoid nephrotoxins. - Did have a slight bump in creatine initially, but returned to baseline prior to d/c. With diuresis (6) Atrial fibrillation: - Permanent, asymptomatic, continue metoprolol and digoxin, Eliquis. (7) Anemia: - Hgb 9.0, at/near baseline. Likely multifactorial from CKD, hemolysis (elevated t bili, LDH, retic count, low haptoglobin in 2020). - Follows with CCP, last seen by Dr. Carter in December. - Deferring further workup, i.e bone marrow biopsy given age and stability. - For now, as long as Hgb remains stable, will follow up as outpt q3 months. - Continue oral iron supplementation. (8) COPD (chronic obstructive pulmonary disease): - Continue albuterol as needed. - No evidence of exacerbation today. (9) GERD (gastroesophageal reflux disease): - Continue Protonix. (10) Venous insufficiency of both lower extremities: - Elevated legs, encourage compression stockings use. (11) Depression with anxiety: - Continue Cymbalta. (12) Hypothyroidism: - Continue levothyroxine 50 mcg daily. (2) Cirrhosis: (3) CAD (coronary artery disease): (4) Diabetes mellitus, type II: (5) Chronic kidney disease (CKD): (6) Atrial fibrillation: (7) Anemia: (8) COPD (chronic obstructive pulmonary disease): (9) GERD (gastroesophageal reflux disease): (10) Venous insufficiency of both lower extremities: (11) Depression with anxiety: (12) Hypothyroidism: Total Time Total Time Spent Total Time Spent (In Minutes): 30 Discharge Plan Discharge Items Patient Disposition: Home - Home Health Services Reason For Visit: CHF Discharge Diagnosis: Acute of Chronic CHF Activity: Resume your previous activity Non-emergency contact: Primary Care Provider Call non-emergency contact if: you have any medication questions, your pain is not controlled and you have a fever Follow-up/Referrals: Domi Wetzel DO [Primary Care Provider] - Madelaine Rothman PAAna LauraC [Physician Administrative Office Clerk] - 03/13/22 11:30 am Diet: Regular Addtl Attending Provider Instructions: You were admitted to the hospital for swelling in your legs. You were treated with IV diuretics and then transitioned back to your oral dose. Your swelling has improved. Your creatine; an indicator of your kidney function: was initially a little elevated with the diuretics, but went back down to your baseline. Your should follow up with your PCP and Heart Failure doctors. It was also noticed on your outpatient US that you have cirrhosis of your liver. Your liver enzymes have been stable here. You should follow up with your PCP for further work up. A discharge summary will be sent to your primary care physician to ensure continuity of care. Please bring this discharge summary with you to your next office appointment so that your provider can review it at that time. Follow-up appointments: We have requested a follow-up appointment with your primary care physician within one week of discharge. Please call their office if you do not hear from them. 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 Please call their office if you do not hear from them. CONTACT YOUR PRIMARY CARE PROVIDER if you experience any of the following: increased swelling in your legs fever, increased redness/swelling in your legs Difficulty following your treatment plan, or difficulty taking medications CALL 911 OR GO TO THE EMERGENCY DEPARTMENT if you experience any of the following: Sudden, severe abdominal pain or nausea/vomiting Severe chest pain, or chest pain that radiates (moves) to your jaw or arm Sudden, severe shortness of breath or difficulty breathing Thank you for allowing us to participate in your care. Pending Studies at Discharge: No Stand-Alone Forms: My [facility], Smoking Cessation Medications and DC Order Prescriptions: Continued cholecalciferol (vitamin D3) [Vitamin D3] 25 mcg (1,000 unit) tablet 2,000 unit PO QAM allopurinol [Zyloprim] 100 mg tablet 300 mg PO QAM Qty: 90 1RF Eliquis 2.5 mg tablet 2.5 mg PO BID Qty: 180 1RF bumetanide 2 mg tablet 2 mg PO BID Qty: 60 5RF clopidogrel [Plavix] 75 mg tablet 75 mg PO QAM Qty: 90 1RF digoxin [Digitek] 125 mcg (0.125 mg) tablet 125 mcg PO Q2D Qty: 15 3RF duloxetine [Cymbalta] 30 mg capsule,delayed release(DR/EC) 30 mg PO QAM Qty: 90 1RF Rx Instructions: take in addition to 60 mg cap for total dose of 90 mg per day duloxetine [Cymbalta] 60 mg capsule,delayed release(DR/EC) 60 mg PO QAM Qty: 90 1RF Rx Instructions: take in addition to 30 mg cap for total daily dose of 90 mg per day isosorbide mononitrate 30 mg tablet extended release 24 hr 30 mg PO QAM Qty: 90 1RF levothyroxine [Synthroid] 50 mcg tablet 50 mcg PO DAILYBB Qty: 30 5RF magnesium oxide 400 mg magnesium tablet 400 mg PO BID Qty: 180 1RF metoprolol succinate [Toprol XL] 50 mg tablet extended release 24 hr 150 mg PO BID Qty: 540 3RF mirtazapine [Remeron] 15 mg tablet 15 mg PO HS Qty: 30 5RF pantoprazole [Protonix] 40 mg tablet,delayed release (DR/EC) 40 mg PO QAM Qty: 90 1RF polysaccharide iron complex [Ferrex 150] 150 mg iron capsule 150 mg PO QAM Qty: 90 1RF potassium chloride [K-Tab] 20 mEq tablet extended release 10 meq PO BID Qty: 180 1RF insulin glargine [Lantus Solostar U-100 Insulin] 100 unit/mL (3 mL) insulin pen 28 unit subcut HS Qty: 15 3RF Glucagon Emergency Kit (human) 1 mg recon soln 1 mg subcut Q20M PRN (Reason: hypoglycemia) Qty: 1 5RF Rx Instructions: until target blood sugar attained nystatin 100,000 unit/gram cream 1 applic topical TID 14 Days Qty: 30 0RF Rx Instructions: until area healed insulin aspart U-100 [Novolog Flexpen U-100 Insulin] 100 unit/mL (3 mL) insulin pen 7 - 10 unit subcut TIDM Qty: 45 1RF clobetasol 0.05 % cream 1 applic topical BID Qty: 30 1RF nitroglycerin 0.3 mg tablet, sublingual 0.3 mg sublingual Q5M PRN (Reason: Chest Pain) Rx Instructions: do not exceed 3 doses per episode polyethylene glycol 3350 [Miralax] 17 gram/dose powder 8.5 g PO DAILY PRN (Reason: Constipation) PreserVision Lutein 226 mg-200 unit -5 mg-0.8 mg Capsule 1 cap PO BID Discontinued acetaminophen 500 mg tablet 1,000 mg PO .HS Discharge Orders: Discharge Order (Routine); Ordered 03/05/22 Ordered By: Alexa Mg Admission Data Admit Date/Time: 03/02/22 18:03 Attending Provider: Guille Doty Admit Provider: Surjit Villafuerte Primary Care Provider: Domi Wetzel Other Providers: Surjit Villafuerte ; Madelaine Rothman ; Jesus Blanco [facility] Other Interventions: Discharge Summary Assessment (RN) Last Done: 03/05/22 12:43 Supervising Physician Co-Signing Physician Notes Attending attestation Pt seen and examined in concert with Dr. Mg. In agreement with the documented findings as noted in the resident documentation with any exceptions or additions as noted here. Chronic LE discomfort returning to baseline and continued chronic pruritis. VS, nursing notes, labs and imaging reviewed. On examination, S1/S2 nl RRR no MCG. CTAB. Abd NT/ND BS+ve. trace pitting edema bilaterally to the mid swanson worse on the right. HFpEF with acute exacerbation in the setting of CAD - tolerating baseline bumetanide dose with stable Cr. Repeat counseled again re: low sodium diet and the importance of same. CKD IV - returned to admitting level. Would monitor closely outpatient to avoid worsening. DMII - tightly controlled at 5.1%. Would consider loosening of glycemic control on outpatient basis. New diagnosis of early cirrhotic changes on outpatient imaging - counseling re: utility and timing of hepatology, symptom control and further evaluation. LFTs stable. Else see resident documentation as noted. Total attending physician time spent with this patient's care on the day of discharge: 35 minutes.
== END 2022-03-05 15:31 | disposition home health service (06) | DRG 291 ==
LOC: ED 15:37 → 2N 18:03 → SUATTDRO 18:03 → 2N 19:59 → ED 19:59 → 2W 03-03 12:56

== ENCOUNTER 2022-03-17 13:16 | Inpatient (IN) ==
[2022-03-17] MEDS ORDERED: dexAMETHasone**PF** 10 MG/ML VIAL IV ONE (13:31)
[2022-03-17] MEDS ORDERED: fentaNYL citrate 100 MCG/2 ML VIAL IV STA (13:31)
[2022-03-17] MEDS ORDERED: ALBUT/IPRATROP 3MG/0.5MG NEB 3 ML VIAL NEB ONE (13:32)
--- NOTE | 2022-03-17 13:40 | Emergency Department Note ---
Impression & Plan Acute respiratory failure, COPD exacerbation ED Provider Note Name: JULIO C FAULKNER Age: 87 Sex: F Arrives Via: Ambulance Informant: Patient, EMS ED Provider: Andre Cowan MD Chief Complaint: Shortness of breath Impression: As per impressions above Medical Decision Makin-year-old female with extensive past medical history including CHF, COPD, CKD, A. fib, CAD, GERD, type 2 diabetes, hypertension amongst others who is anticoagulated arrives for evaluation of acute shortness of breath. Patient with frequent hospitalizations recently. Patient arrives in severe distress having significant about of difficulty breathing despite CPAP use. She was s witched to BiPAP with significant improvement. Patient is complaining of significant pain throughout her right leg and in this area there is a large rash which appears to be scabbed over small vesicles versus just excoriated skin. She was given a small dose of fentanyl with vast improvement in the pain she is breathing much more comfortably on BiPAP and is oxygenating well. No clear evidence of significant fluid overload at this time and she is improving with BiPAP and DuoNeb dose also given some Decadron. No clear infectious etiology and COVID/flu/RSV testing are negative at this time. Laboratory work-up stable for patient. Given her significant respiratory difficulty I do feel hospit alization is indicated and hospitalist was consulted for further management. As she is anticoagulated I feel PE is unlikely. Her right leg pain is likely just dry skin much like the other areas that she has been itching and I think DVT while on anticoagulation would be unlikely as well. Initially there was some concern that maybe this is an isolated zoster however on further review and finding no other areas along the dermatome I suspect this may just be excoriated skin and discussed this with hospitalist. Prior Medical Record and Triage/Nursing Notes reviewed by Me Additional history obtained from chart and EMS Differentials:Reactive airway disease, pneumonia, pneumothorax, COPD, CHF, infections, cardiac ischemia, pulmonary embolism, musculoskeletal, gastrointestinal, as well as other pathologies. Vital Signs: reviewed and remarkable for tachypnea on arrival Interventions: BiPAP, DuoNeb, Decadron, fentanyl 50 mcg IV Labs:Reviewed and remarkable for stable for patient Imagin view chest x-ray mild congestive findings but no overt failure appreciated nor lobar infiltrate. EKG:As per my interpretation. Indication shortness of breath. Atrial fibrillation at 88 bpm with QTC of 450. There is no ischemia appreciated. When compared to EKG from March 02, 2022 there is no significant changes Consults:Dr Christo BENITEZ Hospitalist Plan: Disposition:Hospitalization. Condition Fair History of Present Illness:87-year-old female arrives for evaluation of shortness of breath. Patient with 2 days worsening shortness of breath. States she was having trouble even catching her breath at rest now. Worse with laying flat or any exertion. Using nebs at home with minimal improvement. EMS was called found to be hypoxic in respiratory distress. She was started on CPAP and brought to ER for further evaluation. Patient denies any specific chest pain, syncope, nausea, vomiting, headache, neck pain, fevers, chills or other specific symptoms besides leg pain. Patient notes right posterior leg pain for the last few days. She is on a blood thinner. She notes that she has developed a rash and it hurts to touch her leg. Pain radiates up the back of her leg. She does have some mild left leg pain as well. Denies pain in the right leg is similar to the mild left leg pain. No falls, trauma, injuries. CPAP prior to arrival mildly improved her breathing. Nebs at home minimally effective. Rest makes better movement and laying flat made worse. ROS: See above HPI for pertinent positives & negatives. A total of 10 systems reviewed and were otherwise negative. Past Medical History:See Below Past Surgical History:See Below Family History:See Below Social History:See Below Home Medications:See Below Allergies:See Below Vitals:Blood Pressure: 155/70, Pulse 89, RR 40, T 39.7C, O2 100% on CPAP Physical Exam: GENERAL: Patient is unwell appearing and in moderate distress. EYES: No scleral icterus, unremarkable pupils. ENT: Mucous membranes moist, no nasal congestion. NECK: No masses appreciated, nomeningismus, trachea is midline. RESPIRATORY: Tachypnea with dyspnea and diffuse wheezing and tight lung sounds throughout. CARDIOVASCULAR: Irregular.No murmurs, rubs, gallops appreciated. GASTROINTESTINAL: Abdomen soft, non-tender, no peritonitis.Bowel sounds positive.No masses appreciated. BACK: No midline tenderness, no CVA tenderness EXTREMITIES: Normal motion all extremities, no cyanosis, no edema. NEUROLOGIC: Alert and oriented, no acute motor or sensory deficits, no focal weakness, cranial nerves grossly intact. SKIN: Multiple areas of scabbed and abraded skin on arms and legs. She has a patch of scabbed open vesicles of the right calf extending to just below right knee. These are severely tender to palpation without surrounding erythema. No rash, no jaundice, no diaphoresis. PSYCH: Appropriate GCS: 15 ED Course: Times/Reassessments: Patient vastly improved after some pain control which I think is partly due to the improvement in her anxiety as well. She is breathing comfortably satting well on BiPAP now. Her tight lung sounds have improved significantly as well. Patient agreeable to hospitalization Critical Care: I have personally spent 40 minutes of critical care time in the direct management of this patient. Acute COPD exacerbation requiring BiPAP and rapid stabilization. This was a life/limb threatening event. This 40 minutes is in excess of all separately billable procedures. Andre Cowan MD Past Med/Surg History Medical History Anemia Asthma Atrial fibrillation CAD (coronary artery disease) Cerebrovascular disease Chronic diastolic congestive heart failure Chronic kidney disease (CKD) Stage III, baseline Cr 1.3-1.5mg/dL. Complicated with normocytic anemia and secondary hyperparathyroidism. Followed by nephrology. 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 Cannot perform MRI due to bladder implant. Followed by pain management. Epidural steroid injections with improvement of pain. Evaluated by ortho, decided against surgery. Managed with gabapentin 300mg TID + APAP PRN + tapentadol 50mg BID PRN GERD (gastroesophageal reflux disease) GIB (gastrointestinal bleeding) History of gout Managed with allopruinol daily. No recent gouty attacks. Uric acid suppressed 3.4 mg/dl (12/22) Hyperlipidemia Secondary prevention with moderate intensity statin (atorvastatin 20mg daily) Hypertension Hypothyroidism Lichen planus Macular degeneration Mitral regurgitation Neurologic gait dysfunction Obstructive sleep apnea Long standing. Managed with CPAP nightly. CPAP titration polysomnography (07/14). Sensorineural hearing loss (SNHL) of both ears Venous insufficiency of both lower extremities Surgical History H/O colonoscopy History of repair of rectocele S/P breast biopsy S/P section S/P cholecystectomy S/P hysterectomy S/P implantation of urinary electronic stimulator device Family History Father , Age 64 No problems noted. Mother , Age 61 No problems noted. Other Coronary heart disease Denies family history of Ovarian cancer Prostate cancer Crohn's disease Breast cancer Lung cancer Colorectal cancer Social History Smoking Status: Never smoker Second Hand Exposure: No; Hx Alcohol Use: No Hx Substance Use: No Preferred Language: Latvian Communication Ability: Effective Visual Impairment: No Limitations Hearing Ability: Normal [employer] Required: No Beliefs That Will Affect Care: None marital status: Single Current Living Situation: Shelter Current Living Situation Comment: [facility] current occupational status: retired How many Children do You have: 3 Feels Safe at Home: Yes Childhood Exposure to Second-Hand Smoke: No Diet Comment: DIABETIC caffeine: No during the past year weight has: remained stable Dental Care, Regularly: No Physical Activity Frequency: 1-2 Times per Week Seatbelt Use: always Sunscreen Use: Yes Assistive Devices: Cane and Walker Allergies Allergies Allergy/AdvReac Type Severity Reaction Status Date / Time shellfish derived Allergy Severe ANAPHYLAXIS Verified 03/13/22 11:20 iodine Allergy Intermediate ANAPHYLAXIS Verified 03/13/22 11:20 lisinopril Allergy Unknown Unknown Verified 03/13/22 11:20 oxybutynin [From Ditropan] Allergy Unknown Unknown Verified 03/13/22 11:20 sertraline [From Zoloft] Allergy Unknown Unknown Verified 03/13/22 11:20 paroxetine AdvReac Mild GI UPSET Verified 03/13/22 11:20 Home Meds Home Medications Medication Instructions Recorded Confirmed cholecalciferol (vitamin D3) 25 2,000 unit PO QAM 05/11/20 03/17/22 mcg (1,000 unit) tablet (Vitamin D3) polyethylene glycol 3350 17 8.5 g PO DAILY PRN Constipation 01/28/21 03/17/22 gram/dose oral powder (Miralax) vit C 226 mg-vit E 90 mg-copper 1 cap PO BID 02/01/21 03/17/22 0.8 mg-zinc oxide-lutein 5 mg capsule (PreserVision Lutein) nitroglycerin 0.3 mg sublingual 0.3 mg sublingual Q5M PRN Chest 01/17/22 03/17/22 tablet Pain Previous Rx's Medication Instructions Recorded allopurinol 100 mg tablet 300 mg PO QAM #90 tabs 12/16/21 (Zyloprim) apixaban 2.5 mg tablet (Eliquis) 2.5 mg PO BID #180 tabs 12/16/21 bumetanide 2 mg tablet 2 mg PO BID #60 tabs 12/16/21 clopidogrel 75 mg tablet (Plavix) 75 mg PO QAM #90 tabs 12/16/21 digoxin 125 mcg (0.125 mg) tablet 125 mcg PO Q2D #15 tabs 12/16/21 (Digitek) duloxetine 30 mg capsule,delayed 30 mg PO QAM #90 caps 12/16/21 release (Cymbalta) duloxetine 60 mg capsule,delayed 60 mg PO QAM #90 caps 12/16/21 release (Cymbalta) isosorbide mononitrate 30 mg 30 mg PO QAM #90 tabs 12/16/21 tablet,extended release 24 hr levothyroxine 50 mcg tablet 50 mcg PO DAILYBB #30 tabs 12/16/21 (Synthroid) magnesium oxide 400 mg PO BID #180 tabs 12/16/21 metoprolol succinate 50 mg 150 mg PO BID #540 tabs 12/16/21 tablet,extended release 24 hr (Toprol XL) mirtazapine 15 mg tablet (Remeron) 15 mg PO HS #30 tabs 12/16/21 pantoprazole 40 mg tablet,delayed 40 mg PO QAM #90 tabs 12/16/21 release (Protonix) polysaccharide iron complex 150 mg 150 mg PO QAM #90 caps 12/16/21 iron capsule (Ferrex) potassium chloride 20 mEq 10 meq PO BID #180 tabs 12/16/21 tablet,extended release (K-Tab) insulin glargine 100 unit/mL (3 28 unit (0.28 mL) subcut HS #15 mL 12/18/21 mL) subcutaneous pen (Lantus Solostar U-100 Insulin) glucagon 1 mg solution for 1 mg subcut Q20M PRN hypoglycemia 01/02/22 injection (Glucagon Emergency Kit) #1 ea nystatin 100,000 unit/gram topical 1 applic topical TID 2 weeks #30 01/21/22 cream grams insulin aspart U-100 100 unit/mL 7 - 10 unit (0.07 - 0.1 mL) subcut 02/04/22 (3 mL) subcutaneous pen (Novolog TIDM #45 mL Flexpen U-100 Insulin aspart) clobetasol 0.05 % topical cream 1 applic topical BID #30 grams 02/19/22 guaifenesin 600 mg tablet, 600 mg PO BID PRN cough #60 tabs 03/13/22 extended release 12 hr Results & Data (ED) Vital Signs Vital Signs - 24 hr 03/17/22 13:29 03/17/22 13:19 03/17/22 13:41 Pulse Rate 89 86 Pulse Rate [Right Finger] 83 Pulse Rate from SpO2 Sensor Respiratory Rate 40 H 16 40 H Respiratory Effort / Characteristics Spontaneous Short of Breath Non-Labored Spontaneous Spontaneous Moaning Short of Breath SOB on Exertion Respiratory Depth Normal Normal Respiratory Pattern Tachypnea Blood Pressure 153/78 H Blood Pressure [Right Arm] Blood Pressure Mean 103 Blood Pressure Mean [Right Arm] Pulse Oximetry 100 100 100 Oxygen Delivery Method CPAP BiPAP Oxygen Flow Rate Fraction of Inspired Oxygen 30 30 Sepsis Recent Fever Within 48 Hours No Sepsis New/Unexplained Change in Mental Status No Sepsis Action Taken by Nursing No Action Required Oxygen Flow Rate - Titration Pulse Oximetry Post Tiitration 03/17/22 14:00 03/17/22 14:04 03/17/22 13:44 Pulse Rate 81 Pulse Rate [Right Finger] 83 Pulse Rate from SpO2 Sensor 81 Respiratory Rate 19 20 Respiratory Effort / Characteristics Non-Labored Spontaneous Respiratory Depth Normal Respiratory Pattern Blood Pressure Blood Pressure [Right Arm] 160/91 H Blood Pressure Mean Blood Pressure Mean [Right Arm] 114 Pulse Oximetry 100 100 Oxygen Delivery Method BiPAP BiPAP Oxygen Flow Rate Fraction of Inspired Oxygen Sepsis Recent Fever Within 48 Hours Sepsis New/Unexplained Change in Mental Status Sepsis Action Taken by Nursing Oxygen Flow Rate - Titration Pulse Oximetry Post Tiitration 03/17/22 13:59 03/17/22 13:59 03/17/22 14:00 Pulse Rate 80 Pulse Rate [Right Finger] Pulse Rate from SpO2 Sensor 78 Respiratory Rate 22 Respiratory Effort / Characteristics Respiratory Depth Respiratory Pattern Blood Pressure 161/80 H 160/91 H Blood Pressure [Right Arm] Blood Pressure Mean 107 114 Blood Pressure Mean [Right Arm] Pulse Oximetry 100 Oxygen Delivery Method Oxygen Flow Rate Fraction of Inspired Oxygen Sepsis Recent Fever Within 48 Hours Sepsis New/Unexplained Change in Mental Status Sepsis Action Taken by Nursing Oxygen Flow Rate - Titration Pulse Oximetry Post Tiitration 03/17/22 14:00 03/17/22 14:30 03/17/22 15:00 Pulse Rate 75 79 Pulse Rate [Right Finger] Pulse Rate from SpO2 Sensor 78 Respiratory Rate 18 22 Respiratory Effort / Characteristics Respiratory Depth Respiratory Pattern Blood Pressure 149/96 H Blood Pressure [Right Arm] Blood Pressure Mean 113 Blood Pressure Mean [Right Arm] Pulse Oximetry 100 Oxygen Delivery Method Oxygen Flow Rate Fraction of Inspired Oxygen Sepsis Recent Fever Within 48 Hours Sepsis New/Unexplained Change in Mental Status Sepsis Action Taken by Nursing Oxygen Flow Rate - Titration Pulse Oximetry Post Tiitration 03/17/22 15:00 03/17/22 15:30 03/17/22 16:00 Pulse Rate 76 79 Pulse Rate [Right Finger] Pulse Rate from SpO2 Sensor 80 Respiratory Rate 21 18 Respiratory Effort / Characteristics Respiratory Depth Respiratory Pattern Blood Pressure 166/86 H Blood Pressure [Right Arm] Blood Pressure Mean 112 Blood Pressure Mean [Right Arm] Pulse Oximetry 100 Oxygen Delivery Method Oxygen Flow Rate Fraction of Inspired Oxygen Sepsis Recent Fever Within 48 Hours Sepsis New/Unexplained Change in Mental Status Sepsis Action Taken by Nursing Oxygen Flow Rate - Titration Pulse Oximetry Post Tiitration 03/17/22 16:00 03/17/22 16:30 03/17/22 17:35 Pulse Rate 74 68 79 Pulse Rate [Right Finger] Pulse Rate from SpO2 Sensor 81 74 Respiratory Rate 22 20 23 Respiratory Effort / Characteristics Respiratory Depth Respiratory Pattern Blood Pressure Blood Pressure [Right Arm] Blood Pressure Mean Blood Pressure Mean [Right Arm] Pulse Oximetry 100 100 Oxygen Delivery Method Oxygen Flow Rate Fraction of Inspired Oxygen Sepsis Recent Fever Within 48 Hours Sepsis New/Unexplained Change in Mental Status Sepsis Action Taken by Nursing Oxygen Flow Rate - Titration Pulse Oximetry Post Tiitration 03/17/22 17:41 Pulse Rate Pulse Rate [Right Finger] Pulse Rate from SpO2 Sensor Respiratory Rate Respiratory Effort / Characteristics Respiratory Depth Respiratory Pattern Blood Pressure Blood Pressure [Right Arm] Blood Pressure Mean Blood Pressure Mean [Right Arm] Pulse Oximetry 100 Oxygen Delivery Method Nasal Cannula Oxygen Flow Rate 4 Fraction of Inspired Oxygen Sepsis Recent Fever Within 48 Hours Sepsis New/Unexplained Change in Mental Status Sepsis Action Taken by Nursing Oxygen Flow Rate - Titration 0 Pulse Oximetry Post Tiitration 94 Laboratory Data Result diagrams: 03/17/22 13:45 03/17/22 13:45 Lab Results 03/17/22 03/17/22 03/17/22 Range/Units 13:45 13:45 13:45 WBC 9.99 (4.8-10.8) K/ul RBC 2.44 L (3.93-5.22) M/uL Hgb 8.7 L (12.0-16.0) g/dl Hct 27.7 L (34.1-44.9) % MCV 113.5 H (80.0-100.0) fL MCH 35.7 H (25.0-34.0) pg MCHC 31.4 L (32.0-36.0) g/dL RDW Std Deviation 94.5 H (36.4-46.3) fL RDW Coeff of Talia 23.5 H (11.5-14.5) % Plt Count 283 (130-400) K/uL MPV 13.0 H (9.4-12.3) fL Immature Gran % (Auto) 0.7 % Neut % (Auto) 83.4 % Lymph % (Auto) 6.1 % [place] % (Auto) 6.6 % Eos % (Auto) 2.7 % Baso % (Auto) 0.5 % Neut # (Auto) 8.33 H (1.4-6.5) K/uL Lymph # (Auto) 0.61 L (1.2-3.4) K/uL [place] # (Auto) 0.66 (0.24-0.82) K/uL Eos # (Auto) 0.27 (0-0.50) K/uL Baso # (Auto) 0.05 (0-0.2) K/uL Immature Gran # (Auto) 0.07 H (0.00-0.02) K/uL Polychromasia 1+ Tear Drop Cells 1+ Ovalocytes 2+ Schistocytes 1+ PT 11.8 (9.0-12.0) Seconds INR 1.1 (0.9-1.1) VBG pH (7.36-7.41) VBG pCO2 (38-50) mmHg VBG pO2 mmHg VBG HCO3 mmol/L VBG O2 Saturation % VBG Base Excess mEq/L Sodium 138 (136-145) mmol/L Potassium 3.4 L (3.5-5.1) mmol/L Chloride 96 L (98-107) mmol/L Carbon Dioxide 34 H (21-32) mmol/L Anion Gap 8 (3-11) BUN 42 H (6-23) mg/dl Creatinine 1.50 H (0.6-1.2) mg/dl Est Cr Clr Drug Dosing 21.4 ml/min Est GFR ( Amer) 36.4 ml/min Est GFR (Non-Af Amer) 31.4 ml/min BUN/Creatinine Ratio 28.0 H (10-20) Glucose 116 H (70-99(Fasting)) mg/dl Lactate (0.4-2.0) mmol/L Calcium 8.2 L (8.5-10.1) mg/dl Magnesium 2.1 (1.7-2.4) mg/dl Total Bilirubin 2.8 H (0.2-1.0) mg/dl Direct Bilirubin 0.6 H (0-0.2) mg/dl AST 28 (13-39) U/L ALT 22 (7-52) U/L Alkaline Phosphatase 222 H (34-104) U/L Troponin I High Sens 30.7 H (0-14) pg/ml B-Natriuretic Peptide (0-100) pg/ml Total Protein 6.7 (6.0-8.3) gm/dl Albumin 3.7 (3.4-5.0) gm/dl Procalcitonin (0-0.5) ng/ml Urine Color Urine Appearance (Clear) Urine pH (4.5-7.5) Ur Specific [place] (1.000-1.030) Urine Protein (Negative) Urine Glucose (UA) (Negative) Urine Ketones (Negative) Urine Blood (Negative) Urine Nitrite (Negative) Urine Bilirubin (Negative) Urine Urobilinogen (Negative) Ur Leukocyte Esterase (Negative) Urine WBC (Auto) (0-5) /hpf Urine RBC (Auto) (0-4) /hpf U Hyaline Cast (Auto) (0-5) /lpf U Epithel Cells (Auto) (0-5) /lpf Urine Bacteria (Auto) (Negative) SARS-CoV-2 (PCR) (Negative) Influenza Type A (PCR) (Neg) Influenza Type B (PCR) (Neg) RSV (RT-PCR) (Neg) 03/17/22 03/17/22 03/17/22 Range/Units 13:45 14:15 14:57 WBC (4.8-10.8) K/ul RBC (3.93-5.22) M/uL Hgb (12.0-16.0) g/dl Hct (34.1-44.9) % MCV (80.0-100.0) fL MCH (25.0-34.0) pg MCHC (32.0-36.0) g/dL RDW Std Deviation (36.4-46.3) fL RDW Coeff of Talia (11.5-14.5) % Plt Count (130-400) K/uL MPV (9.4-12.3) fL Immature Gran % (Auto) % Neut % (Auto) % Lymph % (Auto) % [place] % (Auto) % Eos % (Auto) % Baso % (Auto) % Neut # (Auto) (1.4-6.5) K/uL Lymph # (Auto) (1.2-3.4) K/uL [place] # (Auto) (0.24-0.82) K/uL Eos # (Auto) (0-0.50) K/uL Baso # (Auto) (0-0.2) K/uL Immature Gran # (Auto) (0.00-0.02) K/uL Polychromasia Tear Drop Cells Ovalocytes Schistocytes PT (9.0-12.0) Seconds INR (0.9-1.1) VBG pH (7.36-7.41) VBG pCO2 (38-50) mmHg VBG pO2 mmHg VBG HCO3 mmol/L VBG O2 Saturation % VBG Base Excess mEq/L Sodium (136-145) mmol/L Potassium (3.5-5.1) mmol/L Chloride (98-107) mmol/L Carbon Dioxide (21-32) mmol/L Anion Gap (3-11) BUN (6-23) mg/dl Creatinine (0.6-1.2) mg/dl Est Cr Clr Drug Dosing ml/min Est GFR ( Amer) ml/min Est GFR (Non-Af Amer) ml/min BUN/Creatinine Ratio (10-20) Glucose (70-99(Fasting)) mg/dl Lactate 1.2 (0.4-2.0) mmol/L Calcium (8.5-10.1) mg/dl Magnesium (1.7-2.4) mg/dl Total Bilirubin (0.2-1.0) mg/dl Direct Bilirubin (0-0.2) mg/dl AST (13-39) U/L ALT (7-52) U/L Alkaline Phosphatase (34-104) U/L Troponin I High Sens (0-14) pg/ml B-Natriuretic Peptide (0-100) pg/ml Total Protein (6.0-8.3) gm/dl Albumin (3.4-5.0) gm/dl Procalcitonin 0.09 (0-0.5) ng/ml Urine Color Urine Appearance (Clear) Urine pH (4.5-7.5) Ur Specific [place] (1.000-1.030) Urine Protein (Negative) Urine Glucose (UA) (Negative) Urine Ketones (Negative) Urine Blood (Negative) Urine Nitrite (Negative) Urine Bilirubin (Negative) Urine Urobilinogen (Negative) Ur Leukocyte Esterase (Negative) Urine WBC (Auto) (0-5) /hpf Urine RBC (Auto) (0-4) /hpf U Hyaline Cast (Auto) (0-5) /lpf U Epithel Cells (Auto) (0-5) /lpf Urine Bacteria (Auto) (Negative) SARS-CoV-2 (PCR) NEGATIVE (Negative) Influenza Type A (PCR) Negative (Neg) Influenza Type B (PCR) Negative (Neg) RSV (RT-PCR) Negative (Neg) 03/17/22 03/17/22 03/17/22 Range/Units 14:57 16:25 18:31 WBC (4.8-10.8) K/ul RBC (3.93-5.22) M/uL Hgb (12.0-16.0) g/dl Hct (34.1-44.9) % MCV (80.0-100.0) fL MCH (25.0-34.0) pg MCHC (32.0-36.0) g/dL RDW Std Deviation (36.4-46.3) fL RDW Coeff of Talia (11.5-14.5) % Plt Count (130-400) K/uL MPV (9.4-12.3) fL Immature Gran % (Auto) % Neut % (Auto) % Lymph % (Auto) % [place] % (Auto) % Eos % (Auto) % Baso % (Auto) % Neut # (Auto) (1.4-6.5) K/uL Lymph # (Auto) (1.2-3.4) K/uL [place] # (Auto) (0.24-0.82) K/uL Eos # (Auto) (0-0.50) K/uL Baso # (Auto) (0-0.2) K/uL Immature Gran # (Auto) (0.00-0.02) K/uL Polychromasia Tear Drop Cells Ovalocytes Schistocytes PT (9.0-12.0) Seconds INR (0.9-1.1) VBG pH 7.45 H (7.36-7.41) VBG pCO2 50 (38-50) mmHg VBG pO2 31 mmHg VBG HCO3 35 mmol/L VBG O2 Saturation < 60.0 % VBG Base Excess 9.2 mEq/L Sodium (136-145) mmol/L Potassium (3.5-5.1) mmol/L Chloride (98-107) mmol/L Carbon Dioxide (21-32) mmol/L Anion Gap (3-11) BUN (6-23) mg/dl Creatinine (0.6-1.2) mg/dl Est Cr Clr Drug Dosing ml/min Est GFR ( Amer) ml/min Est GFR (Non-Af Amer) ml/min BUN/Creatinine Ratio (10-20) Glucose (70-99(Fasting)) mg/dl Lactate (0.4-2.0) mmol/L Calcium (8.5-10.1) mg/dl Magnesium (1.7-2.4) mg/dl Total Bilirubin (0.2-1.0) mg/dl Direct Bilirubin (0-0.2) mg/dl AST (13-39) U/L ALT (7-52) U/L Alkaline Phosphatase (34-104) U/L Troponin I High Sens (0-14) pg/ml B-Natriuretic Peptide 1299 H (0-100) pg/ml Total Protein (6.0-8.3) gm/dl Albumin (3.4-5.0) gm/dl Procalcitonin (0-0.5) ng/ml Urine Color Yellow Urine Appearance Cloudy A (Clear) Urine pH 8.0 H (4.5-7.5) Ur Specific [place] 1.009 (1.000-1.030) Urine Protein Negative (Negative) Urine Glucose (UA) Negative (Negative) Urine Ketones Negative (Negative) Urine Blood Negative (Negative) Urine Nitrite Negative (Negative) Urine Bilirubin Negative (Negative) Urine Urobilinogen Negative (Negative) Ur Leukocyte Esterase Negative (Negative) Urine WBC (Auto) 1-5 (0-5) /hpf Urine RBC (Auto) 0-4 (0-4) /hpf U Hyaline Cast (Auto) 0 (0-5) /lpf U Epithel Cells (Auto) 0-5 (0-5) /lpf Urine Bacteria (Auto) Negative (Negative) SARS-CoV-2 (PCR) (Negative) Influenza Type A (PCR) (Neg) Influenza Type B (PCR) (Neg) RSV (RT-PCR) (Neg) Administered Medications Azithromycin 500 mg/ Dextrose 255 mls @ 125 mls/hr IV ONE ONE Stop: 03/17/22 19:02 Last Admin: 03/17/22 18:28 Dose: 125 mls/hr Documented By: CHRISTY Discontinued Medications Albuterol (Albut/Ipratrop 3mg/0.5mg Neb 3 Ml Vial) 12 ml NEB ONE ONE; Protocol Stop: 03/17/22 13:33 Last Admin: 03/17/22 13:40 Dose: 12 ml Documented By: ADEOLA Dexamethasone Sodium Phosphate (DexamethasonePf 10 Mg/Ml Vial) 10 mg IV NOW ONE Stop: 03/17/22 13:32 Last Admin: 03/17/22 14:15 Dose: 10 mg Documented By: GOYO Fentanyl Citrate (Fentanyl Citrate 100 Mcg/2 Ml Vial) 50 mcg IV NOW STA Stop: 03/17/22 13:32 Last Admin: 03/17/22 14:15 Dose: 50 mcg Documented By: Imaging Data Radiologist's Impression: Chest X-Ray 03/17/22 13:30 XR chest 1V portable HISTORY: Shortness of breath. COMPARISON: Chest 03/02/2022. FINDINGS: No pneumothorax. No pleural effusions. The cardiac silhouette remains mildly enlarged. This mild central pulmonary vascular congestion without overt e pepe. No new focal lung consolidations to suggest a pneumonia. There are low lung volumes. Calcifications again noted within the aortic knob. IMPRESSION: Mild central pulmonary vascular congestion without overt edema. ACT 112: Negative or not required by law. Electronically signed by: Lucius Tate M.D. 03/17/2022 1:52 PM Femur X-Ray 03/17/22 16:24 XR femur RT 2V routine HISTORY: 87 years-old Female acute right leg pain . Acute pain of the right hip and thigh COMPARISON: Pelvis and hip radiographs 02/15/2022 TECHNIQUE: 2 views the right femur FINDINGS: A battery pack projects over the right hemipelvis. Is mild to moderate osteoarthritis of the right hip. Demineralized appearance of the bones. No acute fracture, dislocation or avascular necrosis. Pelvic basin phleboliths. Nonspecific lateral soft tissue swelling of the thigh and knee. Osteoarthritis of the right knee without large joint effusion. IMPRESSION: No acute fracture or dislocation. ACT 112: Negative or not required by law. The above report was generated using voice recognition software. It may contain grammatical, syntax or spelling errors. Electronically signed by: Cheo Vargas M.D. 03/17/2022 5:40 PM Discharge Plan Visit Data Chief Complaint: Shortness of Breath/Dyspnea ED Provider: Andre Cowan Discharge Problem: Acute respiratory failure, COPD exacerbation Forms Stand Alone Forms: [facility] [employer] Prescriptions Prescriptions: No Action cholecalciferol (vitamin D3) [Vitamin D3] 25 mcg (1,000 unit) tablet 2,000 unit PO QAM allopurinol [Zyloprim] 100 mg tablet 300 mg PO QAM Qty: 90 1RF Eliquis 2.5 mg tablet 2.5 mg PO BID Qty: 180 1RF bumetanide 2 mg tablet 2 mg PO BID Qty: 60 5RF clopidogrel [Plavix] 75 mg tablet 75 mg PO QAM Qty: 90 1RF digoxin [Digitek] 125 mcg (0.125 mg) tablet 125 mcg PO Q2D Qty: 15 3RF duloxetine [Cymbalta] 30 mg capsule,delayed release(DR/EC) 30 mg PO QAM Qty: 90 1RF Rx Instructions: take in addition to 60 mg cap for total dose of 90 mg per day duloxetine [Cymbalta] 60 mg capsule,delayed release(DR/EC) 60 mg PO QAM Qty: 90 1RF Rx Instructions: take in addition to 30 mg cap for total daily dose of 90 mg per day isosorbide mononitrate 30 mg tablet extended release 24 hr 30 mg PO QAM Qty: 90 1RF levothyroxine [Synthroid] 50 mcg tablet 50 mcg PO DAILYBB Qty: 30 5RF magnesium oxide 400 mg magnesium tablet 400 mg PO BID Qty: 180 1RF metoprolol succinate [Toprol XL] 50 mg tablet extended release 24 hr 150 mg PO BID Qty: 540 3RF mirtazapine [Remeron] 15 mg tablet 15 mg PO HS Qty: 30 5RF pantoprazole [Protonix] 40 mg tablet,delayed release (DR/EC) 40 mg PO QAM Qty: 90 1RF polysaccharide iron complex [Ferrex 150] 150 mg iron capsule 150 mg PO QAM Qty: 90 1RF potassium chloride [K-Tab] 20 mEq tablet extended release 10 meq PO BID Qty: 180 1RF insulin glargine [Lantus Solostar U-100 Insulin] 100 unit/mL (3 mL) insulin pen 28 unit subcut HS Qty: 15 3RF Glucagon Emergency Kit (human) 1 mg recon soln 1 mg subcut Q20M PRN (Reason: hypoglycemia) Qty: 1 5RF Rx Instructions: until target blood sugar attained nystatin 100,000 unit/gram cream 1 applic topical TID 14 Days Qty: 30 0RF Rx Instructions: until area healed insulin aspart U-100 [Novolog Flexpen U-100 Insulin] 100 unit/mL (3 mL) insulin pen 7 - 10 unit subcut TIDM Qty: 45 1RF clobetasol 0.05 % cream 1 applic topical BID Qty: 30 1RF guaifenesin 600 mg tablet extended release 12hr 600 mg PO BID PRN (Reason: cough) Qty: 60 0RF nitroglycerin 0.3 mg tablet, sublingual 0.3 mg sublingual Q5M PRN (Reason: Chest Pain) Rx Instructions: do not exceed 3 doses per episode polyethylene glycol 3350 [Miralax] 17 gram/dose powder 8.5 g PO DAILY PRN (Reason: Constipation) PreserVision Lutein 226 mg-200 unit -5 mg-0.8 mg Capsule 1 cap PO BID Referrals Referrals: Domi Wetzel DO [Primary Care Provider] -
--- NOTE | 2022-03-17 13:54 | XRay Report ---
XR chest 1V portable HISTORY: Shortness of breath. COMPARISON: Chest 03/02/2022. FINDINGS: No pneumothorax. No pleural effusions. The cardiac silhouette remains mildly enlarged. This mild central pulmonary vascular congestion without overt edema. No new focal lung consolidations to suggest a pneumonia. There are low lung volumes. Calcifications again noted within the aortic knob. IMPRESSION: Mild central pulmonary vascular congestion without overt edema. ACT 112: Negative or not required by law. Electronically signed by: Lucius Tate M.D. 03/17/2022 1:52 PM
[2022-03-17] MEDS ORDERED: DEXTROSE 50% 50 ML SYRINGE IV ONE (14:13)
[2022-03-17 14:23] LABS: Basophils # (auto) 0.05 K/uL (0-0.2); Basophils % (auto) 0.5 %; Eosinophils # (auto) 0.27 K/uL (0-0.50); Eosinophils % (auto) 2.7 %; Hematocrit (blood only) 27.7 % (34.1-44.9); Hemoglobin 8.7 g/dl (12.0-16.0); Immature Granulocytes # (auto) 0.07 K/uL (0.00-0.02); Immature Granulocytes % (auto) 0.7 %; Lymphocytes # (auto) 0.61 K/uL (1.2-3.4); Lymphocytes % (auto) 6.1 %; Mean Corpuscular Hemoglobin 35.7 pg (25.0-34.0); Mean Corpuscular Hgb Conc 31.4 g/dL (32.0-36.0); Mean Corpuscular Volume 113.5 fL (80.0-100.0); Monocytes # (auto) 0.66 K/uL (0.24-0.82); Monocytes % (auto) 6.6 %; Neutrophils # (auto) 8.33 K/uL (1.4-6.5); Neutrophils % (auto) 83.4 %; Platelet Count 283 K/uL (130-400); RDW Coefficient of Variation 23.5 % (11.5-14.5); RDW Standard Deviation 94.5 fL (36.4-46.3); Red Blood Count 2.44 M/uL (3.93-5.22); White Blood Count 9.99 K/ul (4.8-10.8)
[2022-03-17 14:36] LABS: INR 1.1 (0.9-1.1); Prothrombin Time 11.8 Seconds (9.0-12.0)
[2022-03-17 14:45] LABS: Ovalocytes 2+; Polychromasia 1+; Schistocytes 1+; Tear Drop Cells 1+
[2022-03-17 14:48] LABS: Albumin Level 3.7 gm/dl (3.4-5.0); Bilirubin Direct 0.6 mg/dl (0-0.2); Bilirubin,Total 2.8 mg/dl (0.2-1.0); Calcium 8.2 mg/dl (8.5-10.1); Creatinine Clr Calc Pharmacy 21.4 ml/min; Est GFR (African American) 36.4 ml/min; Est GFR (Non-African American) 31.4 ml/min; Magnesium 2.1 mg/dl (1.7-2.4); Potassium 3.4 mmol/L (3.5-5.1); Total Protein 6.7 gm/dl (6.0-8.3)
[2022-03-17 14:50] LABS: Troponin I High Sensitivity 30.7 pg/ml (0-14)
--- NOTE | 2022-03-17 15:19 | Electrocardiogram Report ---
Test Reason : Blood Pressure : / mmHG Vent. Rate : 088 BPM Atrial Rate : 227 BPM P-R Int : 000 ms QRS Dur : 084 ms QT Int : 372 ms P-R-T Axes : 000 -42 193 degrees QTc Int : 450 ms Atrial fibrillation Left axis deviation Low voltage QRS Abnormal ECG When compared with ECG of 02-MAR-2022 17:05, Criteria for Inferior infarct are no longer Present Confirmed by Alams Reyes ([id number]) on 03/17/2022 3:19:47 PM Referred By: REFERRED SELF Confirmed By:Almas Reyes
[2022-03-17 15:54] LABS: Influenza A virus by PCR Negative (Neg); Influenza B virus by PCR Negative (Neg); RSV by PCR Negative (Neg); SARS CoV2 RNA(COVID-19) Ceph NEGATIVE (Negative)
--- NOTE | 2022-03-17 16:09 | History & Physical Report ---
Date of Service March 17, 2022 Assessment & Plan (1) Hypoxia: Plan: -Admit to me/tele -Patient is currently afebrile, hemodynamically stable, and now stable on 4L NC -At this time the patient's acute hypoxic respiratory failure is more consistent with COPD exacerbation with possible element of CHF exacerbation as well. Patient is noted to have her chronic BL LE venous stasis, no significant pulmonary edema, JVD, no consolidation noted on CXR and procal is negative. BNP today noted to be 1299, which about where she was at on last admission. While the patient is on Eliquis and Plavix, PE cannot be ruled out at this time. The patient has a CT contrast and iodine allergy, will hold off on CTA for now and will obtain right LE venous doppler to evaluate for DVT. -Patient was initially switched from Cpap to bipap on arrival to the ED, was noted to be much more comfortbale and stable on admission, was transitioned to 4L NC by respiratory shortly after admission -Will obtain VBG now to monitor her respiratory status, continue pulmonary hygiene and prn DuoNebs for support -Continue to monitor on pulse oximetry and tele -For now will treat this as COPD exacerbation, patient was given 10 mg IV dexamethasone in the ED, will continue with 5 days of 40 mg PO prednisone tomorrow -Will start Azithromycin x 5 days for COPD exacerbation -PRN O2 to keep SpO2 between 88-92% with her hx of COPD -Will obtain respiratory biofire for continued workup -Monitor AM CBC, CMP, and dig levels -Continue BL SCDs and Elqiuis for DVT PPX (2) Elevated troponin: Plan: -Initial high sensitivity trop noted to be 30.7, likely due to demand as she is without chest pain and acute ECG changes -Will repeat another on admission -Continue to monitor on tele (3) Acute leg pain: Plan: -Patient noting right leg pain in the posterior knee and anterior tibia -No acute trauma or significant swelling compared to the LLE -Patient denies recent trauma and is also on Eliquis and Plavix -Will obtain venous doppler of the RLE to monitor for DVT and will obtain xrays of the right femur and knee to monitor for trauma -Patient has a history of BL LE venous stasis, exam today is consistent with medical erythema associated with venous stasis. No signs fo cellulitis such as circumferential erythema, tenderness, and warmth. Will hold antibiotics for now -Fall precautions ordered (4) Anemia: Plan: -Noted to be multifactorial on previous admissions -Continue Vit D -Will obtain folate and B12 levels with her elevated MCV (5) Cirrhosis: Plan: -Noted on previous admission and outpatient workup -No cause found at this time -Was scheduled for follow-up with her PCP tomorrow for her last admission -Liver function is currently stable and improved compared to last admission -Continue to monitor for now with AM CMP (6) Chronic heart failure with preserved ejection fraction (HFpEF): Plan: -BNP noted to be 1299 today -Does not examine significantly volume overloaded -Sergio continue with her PO Bumex at 2mg BID as she is close to her dry weight as per the last DC summary -Continue to monitor intake/output -Continue imdur (7) Hyperlipidemia: Plan: -Continue statin (8) History of gout: Plan: -Contihnue allopurinol (9) Depression with anxiety: Plan: -Continue duloxetine and HS remeron (10) Cerebrovascular disease: Plan: -Continue plavix (11) Atrial fibrillation: Plan: -Rate controlled -Continue Eliquis, metoprolol, Dig (12) Obstructive sleep apnea: Plan: -HS CPAP ordered (13) Hypothyroidism: Plan: -Continue levothyroxine (14) COPD (chronic obstructive pulmonary disease): Plan: -See hypoxia -Not on outpatient breathing treatments (15) GERD (gastroesophageal reflux disease): Plan: -Continue pantoprazole (16) Diabetes mellitus, type II: Plan: -As per last admission, will start with 10 units BID -Correction factor of 35, carb ratio of 8 -BSG checks ACHS -Carb controlled diet with 2L fluid restriction for now (17) Hypertension: Plan: -Continue antihypertensives Plan The patient was discussed with Dr. Villafuerte at the time of the admission History of Present Illness Chief Complaint: SOB Primary Care Provider: DO Ezio Hurtadodarren Porter is an 86-year-old female with a past medical history significant for CAD, diastolic heart failure (Normal LV function, no wall motion abnormalities, EF 60-65%, mod/severe TR, mild/mod MR. RVSP > 60 mmHg as of 02/2022), A. fib (on eliquis), hypothyroidism, asthma, COPD, diabetes, CAD, Cirrhosis with severe skin itching, GERD, GI bleed, anemia, BETHANY, depression, anxiety, and BL venous insufficiency who presented to the [facility] ED on 03/17/22 with a chief complaint of SOB. She was brought in by EMS who initially found her to be hypoxic and in respiratory distress. In the ED the patient was found to be afebrile, hemodynamically stable, stable on CPAP but still tachypneic. Labs were remarkable for a WBC WNL, stable Hgb at 8.7 (was 8.7 as of 03/13), stable platelets, stable renal function with potassium of 3.4, calcium of 8.2, stable total bili of 2.8, ATS of 28, ALT of 22, improving alk phos of 222 (was 251 as of 03/13/22), initial high sensitivity trop of 30.7, BNP of 1299 (was 1303 as of 03/03/22), procal of 0.09, and negative covid, Influenza, and RSV negative. Chest xray shows "Mild central pulmonary vascular congestion without overt edema". Prior to admission the patient was given DueNebs, 10 mg IV dexamethasone, and 50 mcg of fentanyl. Per the ED staff, she was transitioned to Bipap on arrival to help with her work of breathing. Per chart review, the patient was recently admitted to [facility] from 03/02/22- 03/05/22 for Acute on chronic CHF exacerbation and Cirrhosis noted on outpatient workup. For her CHF exacerbation the patient was started on IV bumex at 2mg BID with transition back to PO regimen of 2 mg BID on discharge. Her dry weight was listed as 144-145. Per the discharge summary, the patient was found to have cirrhosis on outpatient workup and had been having itching with many scabs. At that time the cause of the cirrhosis was unknown and outpatient workup was recommended. At the time of the exam the patient was sitting comfortably in bed in no acute distress with her Bipap in place. She states that she was in her normal state of health until yesterday when she developed progressive SOB and right lower extremity pain. Her SOB is noted to be worse with exertion and improved with rest. She has a dry, non-productive cough and does not feel as though she has been retaining more fluid since her last discharge. She has still been taking her Bumex as prescribed on last discharge. She is unsure if she has been around sick contacts as she is in an assisted living community. Regarding her right lower extremity pain, she notes pain noted in the posterior aspect of the right knee with some pain that radiates distally, both are exacerbated with movement. She denies recent trauma and notes that she has had to use her walker more than her cane due to the pain. She does not note more swelling in her right legt compared to her left. When asked, she confirms that she has been taking her Eliquis as prescribed. She denies any recent fevers, chills, chest pain, abdominal pain, nausea, vomiting, diarrhea, dysuria, hematuria, and recent falls. She feels as though her breathing is somewhat improved compared to her arrival to the ED and placement of Bipap. I spoke to her regarding code status, she is a DNR/DNI. Please refer to Dr. Villafuerte's attestation for any changes to the treatment plan. Allergies Allergy/AdvReac Type Severity Reaction Status Date / Time shellfish derived Allergy Severe ANAPHYLAXIS Verified 03/13/22 11:20 iodine Allergy Intermediate ANAPHYLAXIS Verified 03/13/22 11:20 lisinopril Allergy Unknown Unknown Verified 03/13/22 11:20 oxybutynin [From Ditropan] Allergy Unknown Unknown Verified 03/13/22 11:20 sertraline [From Zoloft] Allergy Unknown Unknown Verified 03/13/22 11:20 paroxetine AdvReac Mild GI UPSET Verified 03/13/22 11:20 Home Medications Medication Instructions Recorded Confirmed Type cholecalciferol (vitamin D3) 25 2,000 unit PO QAM 05/11/20 03/17/22 History mcg (1,000 unit) tablet (Vitamin D3) polyethylene glycol 3350 17 8.5 g PO DAILY PRN Constipation 01/28/21 03/17/22 History gram/dose oral powder (Miralax) vit C 226 mg-vit E 90 mg-copper 1 cap PO BID 02/01/21 03/17/22 History 0.8 mg-zinc oxide-lutein 5 mg capsule (PreserVision Lutein) allopurinol 100 mg tablet 300 mg PO QAM #90 tabs 12/16/21 03/17/22 Rx (Zyloprim) apixaban 2.5 mg tablet (Eliquis) 2.5 mg PO BID #180 tabs 12/16/21 03/17/22 Rx bumetanide 2 mg tablet 2 mg PO BID #60 tabs 12/16/21 03/17/22 Rx clopidogrel 75 mg tablet (Plavix) 75 mg PO QAM #90 tabs 22 03/17/22 Rx digoxin 125 mcg (0.125 mg) tablet 125 mcg PO Q2D #15 tabs 12/16/21 03/17/22 Rx (Digitek) duloxetine 30 mg capsule,delayed 30 mg PO QAM #90 caps 12/16/21 03/17/22 Rx release (Cymbalta) duloxetine 60 mg capsule,delayed 60 mg PO QAM #90 caps 12/16/21 03/17/22 Rx release (Cymbalta) isosorbide mononitrate 30 mg 30 mg PO QAM #90 tabs 12/16/21 03/17/22 Rx tablet,extended release 24 hr levothyroxine 50 mcg tablet 50 mcg PO DAILYBB #30 tabs 12/16/21 03/17/22 Rx (Synthroid) magnesium oxide 400 mg PO BID #180 tabs 12/16/21 03/17/22 Rx metoprolol succinate 50 mg 150 mg PO BID #540 tabs 12/16/21 03/17/22 Rx tablet,extended release 24 hr (Toprol XL) mirtazapine 15 mg tablet (Remeron) 15 mg PO HS #30 tabs 12/16/21 03/17/22 Rx pantoprazole 40 mg tablet,delayed 40 mg PO QAM #90 tabs 12/16/21 03/17/22 Rx release (Protonix) polysaccharide iron complex 150 mg 150 mg PO QAM #90 caps 12/16/21 03/17/22 Rx iron capsule (Ferrex) potassium chloride 20 mEq 10 meq PO BID #180 tabs 12/16/21 03/17/22 Rx tablet,extended release (K-Tab) insulin glargine 100 unit/mL (3 28 unit (0.28 mL) subcut HS #15 mL 12/18/21 03/17/22 Rx mL) subcutaneous pen (Lantus Solostar U-100 Insulin) glucagon 1 mg solution for 1 mg subcut Q20M PRN hypoglycemia 01/02/22 03/17/22 Rx injection (Glucagon Emergency Kit) #1 ea nitroglycerin 0.3 mg sublingual 0.3 mg sublingual Q5M PRN Chest 01/17/22 03/17/22 History tablet Pain nystatin 100,000 unit/gram topical 1 applic topical TID 2 weeks #30 01/21/22 03/17/22 Rx cream grams insulin aspart U-100 100 unit/mL 7 - 10 unit (0.07 - 0.1 mL) subcut 02/04/22 Rx (3 mL) subcutaneous pen (Novolog TIDM #45 mL Flexpen U-100 Insulin aspart) clobetasol 0.05 % topical cream 1 applic topical BID #30 grams 02/19/22 03/17/22 Rx guaifenesin 600 mg tablet, 600 mg PO BID PRN cough #60 tabs 03/13/22 03/17/22 Rx extended release 12 hr Past Med/Surg History Medical History Anemia Asthma Atrial fibrillation CAD (coronary artery disease) Cerebrovascular disease Chronic diastolic congestive heart failure Chronic kidney disease (CKD) Stage III, baseline Cr 1.3-1.5mg/dL. Complicated with normocytic anemia and secondary hyperparathyroidism. Followed by nephrology. 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 Cannot perform MRI due to bladder implant. Followed by pain management. Epidural steroid injections with improvement of pain. Evaluated by ortho, decided against surgery. Managed with gabapentin 300mg TID + APAP PRN + tapentadol 50mg BID PRN GERD (gastroesophageal reflux disease) GIB (gastrointestinal bleeding) History of gout Managed with allopruinol daily. No recent gouty attacks. Uric acid suppressed 3.4 mg/dl (12/22) Hyperlipidemia Secondary prevention with moderate intensity statin (atorvastatin 20mg daily) Hypertension Hypothyroidism Lichen planus Macular degeneration Mitral regurgitation Neurologic gait dysfunction Obstructive sleep apnea Long standing. Managed with CPAP nightly. CPAP titration polysomnography (07/14). Sensorineural hearing loss (SNHL) of both ears Venous insufficiency of both lower extremities Surgical History H/O colonoscopy History of repair of rectocele S/P breast biopsy S/P section S/P cholecystectomy S/P hysterectomy S/P implantation of urinary electronic stimulator device Family History Father , Age 64 No problems noted. Mother , Age 61 No problems noted. Other Coronary heart disease Denies family history of Ovarian cancer Prostate cancer Crohn's disease Breast cancer Lung cancer Colorectal cancer Social History Smoking Status: Never smoker Second Hand Exposure: No; Hx Alcohol Use: No Hx Substance Use: No Preferred Language: Bulgarian Communication Ability: Effective Visual Impairment: No Limitations Hearing Ability: Normal Laundrette Owner Required: No Beliefs That Will Affect Care: None marital status: Single Current Living Situation: Senior Care Current Living Situation Comment: [facility] current occupational status: retired How many Children do You have: 3 Feels Safe at Home: Yes Childhood Exposure to Second-Hand Smoke: No Diet Comment: DIABETIC caffeine: No during the past year weight has: remained stable Dental Care, Regularly: No Physical Activity Frequency: 1-2 Times per Week Seatbelt Use: always Sunscreen Use: Yes Assistive Devices: Cane and Walker Review of Systems Review of Systems: Denies current fever, chills, headache, changes in vision, hearing, taste, and smell, chest pain, abdominal pain, nausea, vomiting, diarrhea, hematemesis, melena, dysuria, hematuria, and recent falls. All systems have been reviewed and are otherwise negative. Physical Exam Physical Exam: Physical Exam: General: In no acute distress, stated age, chronically ill-appearing, non- toxic appearing HEENT: Normocephalic, atraumatic, patient currently with Bipap in place without leaking, no scleral icterus, pupils around round, symmetrical, and reactive to light,trachea midline, no thyromegaly Chest/Pulm: No respiratory distress, symmetrical chest expansion, scattered expiratory wheezing noted throughout but no other adventitious breath sounds noted Cardiac: Irregular rate and rhythm, no murmurs noted Abdomen: Negative for ascites and bruising, normoactive bowel sounds, soft, non-tender to palpation throughout Musculoskeletal: Patient without acute trauma of the BL upper extremities and LLE. Patient without obvious trauma on visualization of the RLE, pain to palpation of the right posterior knee and right tibia, patient with intact ROM of the right hip/knee and without significant edema Extremities: Radial, dorsalis pedis, and posterior tibial pulses are intact and symmetrical, 1-2+ pitting edema noted in the BL LE's Skin: Patient with numerous scabbed lesions on the upper/lower extremities, face, and trunk. Confirmed these lesions were noted on her last admission. Patient with confluence of lesions on the medial aspect of the right lower extremity with erythema on the medial aspect only, no circumferential erythema noted, no discharge noted from any of her scabs Neuro: Alert and oriented to person, place, month, year, and president, no focal defects, CN II-XII tested and intact, finger to nose test negative, no tremors noted Psych: No acute distress, calm and cooperative during the exam Results & Data Results & Data ([facility]) Vital Signs (Past 12 Hours) Vital Signs Pulse Pulse Resp BP BP Pulse Ox O2 Del Method 03/17/22 15:30 79 18 100 03/17/22 15:00 76 21 03/17/22 15:00 149/96 H 03/17/22 14:30 79 22 100 03/17/22 14:00 75 18 03/17/22 14:00 160/91 H 03/17/22 13:59 80 22 100 03/17/22 13:59 161/80 H 03/17/22 13:44 81 20 100 03/17/22 14:04 BiPAP 03/17/22 14:00 83 19 160/91 H 100 BiPAP 03/17/22 13:41 83 40 H 100 BiPAP 03/17/22 13:19 86 16 153/78 H 100 CPAP 03/17/22 13:29 89 40 H 100 FiO2 03/17/22 15:30 03/17/22 15:00 03/17/22 15:00 03/17/22 14:30 03/17/22 14:00 03/17/22 14:00 03/17/22 13:59 03/17/22 13:59 03/17/22 13:44 03/17/22 14:04 03/17/22 14:00 03/17/22 13:41 30 03/17/22 13:19 03/17/22 13:29 30 Laboratory Results Abnormal lab results 03/17/22 03/17/22 03/17/22 Range/Units 13:45 13:45 14:57 RBC 2.44 L (3.93-5.22) M/uL Hgb 8.7 L (12.0-16.0) g/dl Hct 27.7 L (34.1-44.9) % MCV 113.5 H (80.0-100.0) fL MCH 35.7 H (25.0-34.0) pg MCHC 31.4 L (32.0-36.0) g/dL RDW Std Deviation 94.5 H (36.4-46.3) fL RDW Coeff of Talia 23.5 H (11.5-14.5) % MPV 13.0 H (9.4-12.3) fL Neut # (Auto) 8.33 H (1.4-6.5) K/uL Lymph # (Auto) 0.61 L (1.2-3.4) K/uL Immature Gran # (Auto) 0.07 H (0.00-0.02) K/uL Potassium 3.4 L (3.5-5.1) mmol/L Chloride 96 L (98-107) mmol/L Carbon Dioxide 34 H (21-32) mmol/L BUN 42 H (6-23) mg/dl Creatinine 1.50 H (0.6-1.2) mg/dl BUN/Creatinine Ratio 28.0 H (10-20) Glucose 116 H (70-99(Fasting)) mg/dl Calcium 8.2 L (8.5-10.1) mg/dl Total Bilirubin 2.8 H (0.2-1.0) mg/dl Direct Bilirubin 0.6 H (0-0.2) mg/dl Alkaline Phosphatase 222 H (34-104) U/L Troponin I High Sens 30.7 H (0-14) pg/ml B-Natriuretic Peptide 1299 H (0-100) pg/ml Diagnostic Findings Chest X-Ray 03/17/22 13:30 XR chest 1V portable HISTORY: Shortness of breath. COMPARISON: Chest 03/02/2022. FINDINGS: No pneumothorax. No pleural effusions. The cardiac silhouette remains mildly enlarged. This mild central pulmonary vascular congestion without overt edema. No new focal lung consolidations to suggest a pneumonia. There are low lung volumes. Calcifications again noted within the aortic knob. IMPRESSION: Mild central pulmonary vascular congestion without overt edema. ACT 112: Negative or not required by law. Electronically signed by: Lucius Tate M.D. 03/17/2022 1:52 PM ECG Additional Comments: Atrial fibrillation Left axis deviation Low voltage QRS Abnormal ECG When compared with ECG of 02-MAR-2022 17:05, Criteria for Inferior infarct are no longer Present Confirmed by Almas Reyes ([id number]) on 03/17/2022 3:19:47 PM Code Status & VTE Plan Code Status DNR/DNI VTE Prophylaxis Plan VTE Prophylaxis will be ordered: Yes Supervising Physician Co-Signing Physician Notes Patient seen and examined, chart reviewed, case discussed with Miquel Mackenzie PA-C and I agree with the assessment and plan as above except as otherwise noted Labs and images reviewed 87yo F with recurrent admissions and AoC RF suspect 2/2 COPD exacerbation. Patient currently stable on 4 L nasal cannula, no home oxygen requirement. At assessment heart rate is regular, lungs are with moderate air movement with scattered wheezes on both inspiration and expirationHypoxic respiratory failure: DDx includes CHF versus COPD, patient is with elevated BNP at baseline relatively near her baseline. No significant pulmonary edema on imaging and has bilateral venous stasis but not significantly worsened from her baseline and without significant weight change. Continue home Bumex if not clinically improving COPD treatment consider increasing for better treatment of CHF. Leg pain: Anticoagulated, lower suspicion for PE but agree with follow-up with Doppler as above. PG Care Time/CCT Total # of Minutes Spent Total Time Spent with Patient: Total time spent is greater than 50% in coordination of care (as documented) at patient's floor/unit and/or counseling patient: C[place] [address] Initial Inpt Care Lvl 3 Patient Type Established Medical Decision Making High Complexity Diagnoses Hypoxia R09.02 Elevated troponin R77.8 Acute leg pain M79.606 Laterality: unspecified laterality Anemia D64.9 Anemia type: unspecified type Cirrhosis K74.60 Chronic heart failure with preserved ejection fraction (HFpEF) I50.32 Hyperlipidemia E78.5 History of gout Z87.39 Depression with anxiety F41.8 Cerebrovascular disease I67.9 Atrial fibrillation I48.91 Atrial fibrillation type: unspecified Obstructive sleep apnea G47.33 Hypothyroidism E03.9 Hypothyroidism type: unspecified COPD (chronic obstructive pulmonary disease) J44.9 GERD (gastroesophageal reflux disease) K21.9 Esophagitis presence: esophagitis presence not specified Diabetes mellitus, type II E11.9 Hypertension I10 (1) Acute leg pain Laterality: unspecified laterality Qualified Code(s): M79.606 - Pain in leg, unspecified (2) Anemia Anemia type: unspecified type Qualified Code(s): D64.9 - Anemia, unspecified (3) Atrial fibrillation Atrial fibrillation type: unspecified Qualified Code(s): I48.91 - Unspecified atrial fibrillation (4) Hypothyroidism Hypothyroidism type: unspecified Qualified Code(s): E03.9 - Hypothyroidism, unspecified (5) GERD (gastroesophageal reflux disease) Esophagitis presence: esophagitis presence not specified Qualified Code(s): K21.9 - Gastro-esophageal reflux disease without esophagitis
[2022-03-17] MEDS ORDERED: DEXTROSE 50% 50 ML SYRINGE IV PRN (16:37)
[2022-03-17] MEDS ORDERED: CARBOHYDRATES FOR HYPOGLYCEMIA PO PRN (16:37)
[2022-03-17] MEDS ORDERED: GLUCAGON FOR INJ 1 MG VIAL SQ PRN (16:37)
[2022-03-17] MEDS ORDERED: GLUCOSE 10 TAB/TUBE PO PRN (16:37)
[2022-03-17] MEDS ORDERED: AZITHROMYCIN 500 MG in DEXTROSE 5% 250 ML IV ONE (17:00)
--- NOTE | 2022-03-17 17:42 | XRay Report ---
XR femur RT 2V routine HISTORY: 87 years-old Female acute right leg pain . Acute pain of the right hip and thigh COMPARISON: Pelvis and hip radiographs 02/15/2022 TECHNIQUE: 2 views the right femur FINDINGS: A battery pack projects over the right hemipelvis. Is mild to moderate osteoarthritis of the right hi p. Demineralized appearance of the bones. No acute fracture, dislocation or avascular necrosis. Pelvi c basin phleboliths. Nonspecific lateral soft tissue swelling of the thigh and knee. Osteoarthritis o f the right knee without large joint effusion. IMPRESSION: No acute fracture or dislocation. ACT 112: Negative or not required by law. The above report was generated using voice recognition software. It may contain grammatical, syntax o r spelling errors. Electronically signed by: Cheo Vargas M.D. 03/17/2022 5:40 PM
[2022-03-17 18:07] LABS: Appearance Urine Cloudy (Clear); Bacteria Urine Automated Negative (Negative); Bilirubin Urine Negative (Negative); Blood Urine Negative (Negative); Cast Urine Automated 0 /lpf (0-5); Color Urine Yellow; Epithelial Cell Urine Auto 0-5 /lpf (0-5); Glucose Urine UA Negative (Negative); Ketones Urine Negative (Negative); Leukocyte Esterase Urine Negative (Negative); Nitrite Urine Negative (Negative); Protein Urine Negative (Negative); RBC Urine Automated 0-4 /hpf (0-4); Specific Gravity Urine 1.009 (1.000-1.030); Urobilinogen Urine Negative (Negative)
[2022-03-17 18:42] LABS: Adenovirus PCR Not Detected (NotDetected); Bordetella parapertussis PCR Not Detected (NotDetected); Bordetella pertussis PCR Not Detected (NotDetected); Chlamydia pneumoniae PCR Not Detected (NotDetected); Coronavirus 229E PCR Not Detected (NotDetected); Coronavirus CoV-2 (COVID19)PCR Not Detected (NotDetected); Coronavirus HKU1 PCR Not Detected (NotDetected); Coronavirus NL63 PCR Not Detected (NotDetected); Coronavirus OC43PCR Not Detected (NotDetected); Human Metapneumovirus PCR Not Detected (NotDetected); Influenza A PCR Not Detected (NotDetected); Influenza B PCR Not Detected (NotDetected); Mycoplasma pneumoniae PCR Not Detected (NotDetected); Parainfluenza Virus 1 PCR Not Detected (NotDetected); Parainfluenza Virus 2 PCR Not Detected (NotDetected); Parainfluenza Virus 3 PCR Not Detected (NotDetected); Parainfluenza Virus 4 PCR Not Detected (NotDetected); Rhinovirus/Enterovirus PCR Not Detected (NotDetected)
[2022-03-17 18:46] LABS: Base Excess VBG 9.2 mEq/L; HCO3 VBG 35 mmol/L; Oxygen Saturation VBG < 60.0 %; PCO2 VBG 50 mmHg (38-50); PO2 VBG 31 mmHg; pH VBG 7.45 (7.36-7.41)
[2022-03-17 19:13] LABS: Respiratory Syncytial VirusPCR DETECTED (NotDetected)
[2022-03-17] MEDS ORDERED: POLYETHYLENE (MIRALAX) 17 GM PACK PO PRN (19:19)
[2022-03-17] MEDS: ALBUT/IPRATROP 3MG/0.5MG NEB 3 ML VIAL NEB SCH ×2 (20:45→23:18)
[2022-03-17] MEDS ORDERED: VIT C E CUPRIC ZINC LUTEIN PO SCH (21:00)
[2022-03-17] MEDS: POTASSIUM CHLORIDE 10 MEQ TABCR PO SCH (21:31)
[2022-03-17] MEDS: METOPROLOL SUCC 50MG EXT REL TAB PO SCH (21:32)
[2022-03-17] MEDS: APIXABAN 2.5 MG TAB PO SCH (21:32)
[2022-03-17] MEDS: MIRTAZAPINE TAB 15 MG TAB PO SCH (21:32)
[2022-03-17] MEDS: MAGNESIUM OXIDE 400 MG TAB PO SCH (21:32)
[2022-03-17] MEDS: BUMETANIDE 1 MG TAB PO SCH (21:33)
[2022-03-17] MEDS: INSULIN ASPART PER UNIT SC SCH (21:33)
[2022-03-17] MEDS: LANTUS PER UNIT CHARGE SQ SCH (21:33)
[2022-03-18] MEDS: ACETAMINOPHEN 325 MG TAB PO PRN (02:00)
[2022-03-18] MEDS: ALBUT/IPRATROP 3MG/0.5MG NEB 3 ML VIAL NEB SCH ×2 (04:01→07:48)
[2022-03-18] MEDS: LEVOTHYROXINE SODIUM 50 MCG TABLET PO SCH (05:57)
[2022-03-18 07:01] LABS: Hematocrit (blood only) 27.1 % (34.1-44.9); Hemoglobin 8.5 g/dl (12.0-16.0); Mean Corpuscular Hemoglobin 34.8 pg (25.0-34.0); Mean Corpuscular Hgb Conc 31.4 g/dL (32.0-36.0); Mean Corpuscular Volume 111.1 fL (80.0-100.0); Mean Platelet Volume 12.7 fL (9.4-12.3); Nucleated RBC # (auto) 0.03 K/uL (0-0); Nucleated RBC % (auto) 0.3 %; Platelet Count 264 K/uL (130-400); RDW Coefficient of Variation 23.1 % (11.5-14.5); RDW Standard Deviation 90.6 fL (36.4-46.3); Red Blood Count 2.44 M/uL (3.93-5.22)
[2022-03-18 07:28] LABS: Albumin Globulin Ratio 1.2 (0.9-2); Albumin Level 3.7 gm/dl (3.4-5.0); BUN Creatinine Ratio 29.5 (10-20); Bilirubin,Total 2.7 mg/dl (0.2-1.0); Calcium 8.6 mg/dl (8.5-10.1); Creatinine Clr Calc Pharmacy 18.4 ml/min; Est GFR (African American) 30.7 ml/min; Est GFR (Non-African American) 26.5 ml/min; Potassium 4.1 mmol/L (3.5-5.1); Total Protein 6.7 gm/dl (6.0-8.3)
[2022-03-18] MEDS: LANTUS PER UNIT CHARGE SQ SCH (08:44)
[2022-03-18] MEDS: INSULIN ASPART PER UNIT SC SCH ×4 (08:44→21:59)
[2022-03-18] MEDS: POTASSIUM CHLORIDE 10 MEQ TABCR PO SCH ×2 (08:45→21:57)
[2022-03-18] MEDS: CLOPIDOGREL BISULFATE 75 MG TAB PO SCH (08:45)
[2022-03-18] MEDS: allopurinoL 300 MG TAB PO SCH (08:45)
[2022-03-18] MEDS: CHOLECALCIFEROL 1,000 UNITS 25 MCG TAB PO SCH (08:45)
[2022-03-18] MEDS: DULoxetine HCL 60 MG CAP PO SCH (08:45)
[2022-03-18] MEDS: ISOSORBIDE MONO EXTENDED REL 30 MG TABCR PO SCH (08:45)
[2022-03-18] MEDS: guaiFENesin 600 MG TABCR PO PRN ×2 (08:45→21:58)
[2022-03-18] MEDS: PANTOprazole 40 MG TAB PO SCH (08:46)
[2022-03-18] MEDS: predniSONE 20 MG TAB PO SCH (08:46)
[2022-03-18] MEDS: APIXABAN 2.5 MG TAB PO SCH ×2 (08:46→21:58)
[2022-03-18] MEDS: DULoxetine HCL 30 MG CAP PO SCH (08:46)
[2022-03-18] MEDS: IRON POLYSACCHARIDE COMPLEX 150 MG CAPSULE PO SCH (08:46)
[2022-03-18] MEDS: BUMETANIDE 1 MG TAB PO SCH ×2 (08:46→18:15)
[2022-03-18] MEDS: AZITHROMYCIN 250 MG TAB PO SCH (08:46)
[2022-03-18] MEDS: METOPROLOL SUCC 50MG EXT REL TAB PO SCH ×2 (08:47→21:58)
[2022-03-18] MEDS: MAGNESIUM OXIDE 400 MG TAB PO SCH ×2 (08:47→21:58)
--- NOTE | 2022-03-18 09:05 | Ultrasound Report ---
US venous doppler LE RT CLINICAL HISTORY: acute right leg pain/swelling TECHNIQUE: Right lower extremity real-time compression venous ultrasound with Color Doppler imaging. Utilizing real-time ultrasonic imaging multiple real time high-resolution ultrasonic images with comp ression and noncompression maneuvers of the deep venous system in addition to color doppler imaging w ere performed from the common femoral vein through the proximal calf veins. COMPARISON: Comparison is made to venous Doppler ultrasound 12/07/2020 FINDINGS: Currently there is normal compressibility of the deep venous system from the common femoral vein thro ugh the proximal calf veins. No superficial venous thrombosis is identified. Impression: No evidence of deep venous thrombus. ACT 112: Negative or not required by law. Electronically signed by: Jhoan Cox M.D. 03/18/2022 9:04 AM
[2022-03-18] MEDS ORDERED: LANTUS PER UNIT CHARGE SQ ONE (09:30)
[2022-03-18] MEDS: diphenhydrAMINE Capsule 25 MG CAP PO PRN ×2 (13:47→21:59)
--- NOTE | 2022-03-18 16:37 | Hospitalist Progress Note ---
Date of Service March 18, 2022 Assessment & Plan (1) Hypoxia: Plan: Acute hypoxic respiratory failure has now resolved. She is stable on room air. (2) Elevated troponin: Plan: No evidence of acute coronary syndrome. Telemetry. We will follow (3) Acute leg pain: Plan: Patient noting right leg pain in the posterior knee and anterior tibia. No acute trauma or significant swelling compared to the LLE. Right leg venous Doppler negative for DVT. Pain control measures. -Fall precautions ordered (4) Anemia: Plan: Noted to be multifactorial on previous admissions. No overt GI bleeding. Will follow (5) Cirrhosis: Plan: Currently stable. Continue current management (6) Chronic heart failure with preserved ejection fraction (HFpEF): Plan: BNP chronically elevated. This is chronic with no acute exacerbation at this time. Continue current medical management. Monitor intake and output. (7) Hyperlipidemia: Plan: Continue statin . Low-cholesterol diet (8) History of gout: Plan: Contihnue allopurinol (9) Depression with anxiety: Plan: Continue duloxetine and HS remeron (10) Cerebrovascular disease: Plan: Continue plavix (11) Atrial fibrillation: Plan: Rate controlled with current medical management. Continue Eliquis, metoprolol, Digoxin (12) Obstructive sleep apnea: Plan: HS CPAP ordered. Stable (13) Hypothyroidism: Plan: Continue levothyroxine . Stable (14) COPD (chronic obstructive pulmonary disease): Plan: Admitted with acute exacerbation. Now approaching baseline. Continue current medical management. (15) GERD (gastroesophageal reflux disease): Plan: Continue pantoprazole (16) Diabetes mellitus, type II: Plan: Lantus dosage uptitrated today, March 18. ADA diet. Sliding scale coverage as needed. (17) Hypertension: Plan: Stable with current medical management (18) Pruritus: Plan: No apparent rash. Will use Benadryl as needed Plan Anticipate discharge to home tomorrow, March 19 Admission and Anticipated Discharge Date Admission Date: March 17, 2022 Subjective Alert and oriented. She has diffuse itching without rash. Lantus dosage uptitrated due to hyperglycemia. Mild hypokalemia corrected. Right leg venous Doppler study negative for DVT. Hopefully she can go home tomorrow, March 19 Review of Systems Review of Systems: Constitutional-no fever or chills ENT-no blurred vision, no double vision, no epistaxis, no sore throat Respiratory-no cough, no wheezing, no shortness of breath Cardiac-no palpitations, no chest pain, no syncope GI-no nausea, vomiting, diarrhea, melena, hematochezia -no urinary retention, no urinary incontinence, no dysuria, no hematuria Musculoskeletal-no joint pain, no muscle tenderness Skin-no bruising, no rashes. Diffuse pruritus Neuro-no isolated weakness, no paresthesia, no weakness Psych-no depression, no anxiety Physical Exam Physical Exam: General-alert and oriented x3, no fevers, no chills HEENT-head atraumatic and normocephalic, pupils equal and reactive to light, extraocular muscles intact Neck-no lymphadenopathy or thyromegaly, trachea midline Chest-diminished breath sounds bilaterally. No rales, wheezing or rhonchi Cardiac-regular rate and rhythm, normal S1 and S2, no murmurs Abdomen-normal bowel sounds, nontender, no hepatosplenomegaly Extremities-no cyanosis, clubbing, or edema Neuro-cranial nerves II through XII intact, motor and sensory function within normal limits, strength symmetrical , no focal deficits Psych-normal affect, normal mood Results & Data Results & Data ([facility]) Vital Signs (Past 12 Hours) Vital Signs Temp Pulse Resp BP Pulse Ox O2 Del Method O2 Flow Rate 03/18/22 11:40 36.6 C 83 20 144/80 H 95 Room Air 03/18/22 08:45 Room Air 03/18/22 07:58 36.3 C L 98 H 16 149/80 H 100 Nasal Cannula 1 03/18/22 07:48 82 18 100 Nasal Cannula 1 Laboratory Results 03/18/22 06:21 03/18/22 06:21 PG Care Time/CCT Total # of Minutes Spent Total Time Spent with Patient: Total time spent is greater than 50% in coordination of care (as documented) at patient's floor/unit and/or counseling patient: Coding Level of Care Code 85342 Subseq Hosp Care Lvl 3 Diagnoses Hypoxia R09.02 Elevated troponin R77.8 Acute leg pain M79.606 Laterality: unspecified laterality Anemia D64.9 Anemia type: unspecified type Cirrhosis K74.60 Chronic heart failure with preserved ejection fraction (HFpEF) I50.32 Hyperlipidemia E78.5 History of gout Z87.39 Depression with anxiety F41.8 Cerebrovascular disease I67.9 Atrial fibrillation I48.91 Atrial fibrillation type: unspecified Obstructive sleep apnea G47.33 Hypothyroidism E03.9 Hypothyroidism type: unspecified COPD (chronic obstructive pulmonary disease) J44.9 GERD (gastroesophageal reflux disease) K21.9 Esophagitis presence: esophagitis presence not specified Diabetes mellitus, type II E11.9 Hypertension I10 Pruritus L29.9 (1) Acute leg pain Laterality: unspecified laterality Qualified Code(s): M79.606 - Pain in leg, unspecified (2) Anemia Anemia type: unspecified type Qualified Code(s): D64.9 - Anemia, unspecified (3) Atrial fibrillation Atrial fibrillation type: unspecified Qualified Code(s): I48.91 - Unspecified atrial fibrillation (4) Hypothyroidism Hypothyroidism type: unspecified Qualified Code(s): E03.9 - Hypothyroidism, unspecified (5) GERD (gastroesophageal reflux disease) Esophagitis presence: esophagitis presence not specified Qualified Code(s): K21.9 - Gastro-esophageal reflux disease without esophagitis
[2022-03-18] MEDS: DIGOXIN 0.125 MG TAB PO SCH (18:15)
[2022-03-18] MEDS ORDERED: LANTUS PER UNIT CHARGE SQ SCH (21:00)
[2022-03-18] MEDS: MIRTAZAPINE TAB 15 MG TAB PO SCH (21:57)
[2022-03-19] MEDS: BENZONATATE 100 MG CAPSULE PO PRN ×3 (00:41→22:09)
[2022-03-19] MEDS: LEVOTHYROXINE SODIUM 50 MCG TABLET PO SCH (06:47)
[2022-03-19] MEDS: GLUCOSE 40% GEL 15 GM TUBE PO PRN ×2 (07:52→08:12)
[2022-03-19] MEDS: INSULIN ASPART PER UNIT SC SCH ×3 (08:20→17:11)
[2022-03-19 08:34] LABS: Hematocrit (blood only) 28.7 % (34.1-44.9); Hemoglobin 8.9 g/dl (12.0-16.0); Mean Corpuscular Hemoglobin 35.3 pg (25.0-34.0); Mean Corpuscular Volume 113.9 fL (80.0-100.0); Mean Platelet Volume 13.2 fL (9.4-12.3); Nucleated RBC # (auto) 0.03 K/uL (0-0); Nucleated RBC % (auto) 0.2 %; Platelet Count 262 K/uL (130-400); RDW Coefficient of Variation 22.2 % (11.5-14.5); RDW Standard Deviation 89.9 fL (36.4-46.3); Red Blood Count 2.52 M/uL (3.93-5.22); White Blood Count 12.21 K/ul (4.8-10.8)
[2022-03-19 08:46] LABS: A calco-baum cmplx NotReported Not Detected (NotDetected); Bact fragilis Not Reported Not Detected (NotDetected); C auris Not Reported Not Detected (NotDetected); Calbicans Not Reported Not Detected (NotDetected); Candida glabrata Not Reported Not Detected (NotDetected); Candida krusei Not Reported Not Detected (NotDetected); Cneoformans/gatti Not Reported Not Detected (NotDetected); Cparapsilosis Not Reported Not Detected (NotDetected); Ctropicalis Not Reported Not Detected (NotDetected); E cloacae compx Not Reported Not Detected (NotDetected); Efaecalis Not Reported Not Detected (NotDetected); Efaecium Not Reported Not Detected (NotDetected); Enterobacterales Not Reported Not Detected (NotDetected); Escherichia coli Not Reported Not Detected (NotDetected); H influenzae Not Reported Not Detected (NotDetected); K aerogenes Not Reported Not Detected (NotDetected); Koxytoca Not Reported Not Detected (NotDetected); Kpneumoniae grp Not Reported Not Detected (NotDetected); Lmonocyt Not Reported Not Detected (NotDetected); N meningitidis Not Reported Not Detected (NotDetected); P aeruginosa Not Reported Not Detected (NotDetected); Proteus spp Not Reported Not Detected (NotDetected); Salmonella spp Not Reported Not Detected (NotDetected); Smarcescens Not Reported Not Detected (NotDetected); Staph lugdunensis Not Reported Not Detected (NotDetected); Staph spp. Not Reported DETECTED (NotDetected); Staphaureus Not Reported DETECTED (NotDetected); Staphepi Not Reported Not Detected (NotDetected); Staphylococcus spp. DETECTED (NotDetected); Stenmaltophilia Not Reported Not Detected (NotDetected); Strep agal(GrpB) Not Reported Not Detected (NotDetected); Strep pneum Not Reported Not Detected (NotDetected); Strep pyog (GrpA) Not Reported Not Detected (NotDetected); Strep spp Not Reported Not Detected (NotDetected); mecAC+MREJ Resistant Gene MRSA DETECTED (NotDetected)
[2022-03-19] MEDS: BUMETANIDE 1 MG TAB PO SCH ×2 (08:50→17:11)
[2022-03-19] MEDS: POTASSIUM CHLORIDE 10 MEQ TABCR PO SCH (08:50)
[2022-03-19] MEDS: MAGNESIUM OXIDE 400 MG TAB PO SCH ×2 (08:51→22:00)
[2022-03-19] MEDS: predniSONE 20 MG TAB PO SCH (08:51)
[2022-03-19] MEDS: IRON POLYSACCHARIDE COMPLEX 150 MG CAPSULE PO SCH (08:51)
[2022-03-19] MEDS: APIXABAN 2.5 MG TAB PO SCH ×2 (08:51→22:00)
[2022-03-19] MEDS: METOPROLOL SUCC 50MG EXT REL TAB PO SCH ×2 (08:51→22:02)
[2022-03-19] MEDS: ISOSORBIDE MONO EXTENDED REL 30 MG TABCR PO SCH (08:51)
[2022-03-19] MEDS: AZITHROMYCIN 250 MG TAB PO SCH (08:51)
[2022-03-19] MEDS: DULoxetine HCL 60 MG CAP PO SCH (08:51)
[2022-03-19] MEDS: DULoxetine HCL 30 MG CAP PO SCH (08:51)
[2022-03-19] MEDS: CHOLECALCIFEROL 1,000 UNITS 25 MCG TAB PO SCH (08:52)
[2022-03-19] MEDS: allopurinoL 300 MG TAB PO SCH (08:52)
[2022-03-19] MEDS: CLOPIDOGREL BISULFATE 75 MG TAB PO SCH (08:52)
[2022-03-19] MEDS: PANTOprazole 40 MG TAB PO SCH (08:52)
[2022-03-19 08:53] LABS: Albumin Globulin Ratio 1.2 (0.9-2); Albumin Level 3.7 gm/dl (3.4-5.0); BUN Creatinine Ratio 37.7 (10-20); Bilirubin,Total 2.9 mg/dl (0.2-1.0); Calcium 8.7 mg/dl (8.5-10.1); Creatinine Clr Calc Pharmacy 18.8 ml/min; Est GFR (Non-African American) 27.6 ml/min; Potassium 3.4 mmol/L (3.5-5.1); Total Protein 6.7 gm/dl (6.0-8.3)
[2022-03-19] MEDS ORDERED: VANCOMYCIN CONSULT ACTIVE PRN (09:07)
[2022-03-19] MEDS ORDERED: VANCOMYCIN HCL 1,000 MG in SODIUM CHLORIDE 0.9% 250 ML IV SCH ×2 (09:15→22:00)
[2022-03-19] MEDS ORDERED: VANCOMYCIN HCL 1,250 MG in SODIUM CHLORIDE 0.9% 250 ML IV STA (09:24)
[2022-03-19] MEDS ORDERED: POTASSIUM CHLORIDE 10 MEQ TABCR PO ONE (09:45)
--- NOTE | 2022-03-19 10:37 | Pharmacy Report ---
Pharmacy PK ABX Note - Date of Service March 19, 2022 - Assessment and Plan Assessment 87 year old F receiving vancomycin for treatment of MRSA bacteremia. Pertinent microbiologic data includes: Blood culture positive for staph in clusters with subsequent BioFire confirming detection of MRSA. SCr of 1.6 today, stable in regards to previous values. Day # 1/? of antimicrobial therapy. Plan Vancomycin * Loading dose: 1250 mg IV x 1 * Maintenance dose: To be determined based on random level drawn tonight. * Selected regimen will be predicted to achieve target AUC/NATASHA of 400-600 mg/L.hr * Random level ordered for: 03/19/22 @ 1999. Pharmacy will continue to follow and will adjust dose/frequency as necessary. Thank you. Pharmacy has transitioned to AUC monitoring for vancomycin. AUC/NATASHA is the preferred PK/PD target and is associated with decreased risk of nephrotoxicity compared to traditional trough targets.
--- NOTE | 2022-03-19 12:30 | Hospitalist Progress Note ---
Date of Service March 19, 2022 Assessment & Plan (1) Hypoxia: Plan: Acute hypoxic respiratory failure has now resolved. She is stable on room air. (2) Elevated troponin: Plan: No evidence of acute coronary syndrome. Telemetry. We will follow (3) Acute leg pain: Plan: Patient noting right leg pain in the posterior knee and anterior tibia. No acute trauma or significant swelling compared to the LLE. Right leg venous Doppler negative for DVT. Pain control measures. -Fall precautions ordered (4) Anemia: Plan: Noted to be multifactorial on previous admissions. No overt GI bleeding. Will follow (5) Cirrhosis: Plan: Currently stable. Continue current management (6) Chronic heart failure with preserved ejection fraction (HFpEF): Plan: BNP chronically elevated. This is chronic with no acute exacerbation at this time. Continue current medical management. Monitor intake and output. (7) Hyperlipidemia: Plan: Continue statin . Low-cholesterol diet (8) History of gout: Plan: Contihnue allopurinol (9) Depression with anxiety: Plan: Continue duloxetine and HS remeron (10) Cerebrovascular disease: Plan: Continue plavix (11) Atrial fibrillation: Plan: Rate controlled with current medical management. Continue Eliquis, metoprolol, Digoxin (12) Obstructive sleep apnea: Plan: HS CPAP ordered. Stable (13) Hypothyroidism: Plan: Continue levothyroxine . Stable (14) COPD (chronic obstructive pulmonary disease): Plan: Admitted with acute exacerbation. Now approaching baseline. Continue current medical management. (15) GERD (gastroesophageal reflux disease): Plan: Continue pantoprazole (16) Diabetes mellitus, type II: Plan: She has developed hypoglycemia. Lantus has been discontinued. Sliding scale only for now. ADA diet. (17) Hypertension: Plan: Stable with current medical management (18) Pruritus: Plan: No apparent rash. Improved with Benadryl as needed (19) Blood bacterial culture positive: Plan: Gram-positive cocci in clusters isolated. Hopefully this is just a contaminant. Vancomycin started until final ID available. Plan Anticipate eventual discharge to home. Hopefully tomorrow, March 20, if the positive blood culture proves to be a contaminant. Admission and Anticipated Discharge Date Admission Date: March 17, 2022 Subjective Awake and alert. Medically stable. Unfortunately, one of the blood cultures is growing gram-positive cocci in clusters. Hopefully this is just a contaminant. But, until we know for sure she has been started on intravenous vancomycin. Potassium replacement continues. Lantus discontinued due to recurrent hypoglycemia. Will recheck portable chest x-ray today, March 19 Review of Systems Review of Systems: Constitutional-no fever or chills ENT-no blurred vision, no double vision, no epistaxis, no sore throat Respiratory-no cough, no wheezing, no shortness of breath Cardiac-no palpitations, no chest pain, no syncope GI-no nausea, vomiting, diarrhea, melena, hematochezia -no urinary retention, no urinary incontinence, no dysuria, no hematuria Musculoskeletal-no joint pain, no muscle tenderness Skin-no bruising, no rashes. Diffuse pruritus Neuro-no isolated weakness, no paresthesia, no weakness Psych-no depression, no anxiety Physical Exam Physical Exam: General-alert and oriented x3, no fevers, no chills HEENT-head atraumatic and normocephalic, pupils equal and reactive to light, extraocular muscles intact Neck-no lymphadenopathy or thyromegaly, trachea midline Chest-diminished breath sounds bilaterally. No rales, wheezing or rhonchi Cardiac-regular rate and rhythm, normal S1 and S2, no murmurs Abdomen-normal bowel sounds, nontender, no hepatosplenomegaly Extremities-no cyanosis, clubbing, or edema Neuro-cranial nerves II through XII intact, motor and sensory function within normal limits, strength symmetrical , no focal deficits Psych-normal affect, normal mood Results & Data Results & Data ([facility]) Vital Signs (Past 12 Hours) Vital Signs Temp Pulse Pulse Resp BP Pulse Ox O2 Del Method 03/19/22 11:16 36.5 C 63 16 158/85 H 96 Room Air 03/19/22 08:50 Room Air 03/19/22 07:45 80 03/19/22 07:44 36.4 C L 77 16 155/91 H 93 Room Air 03/19/22 03:32 36.4 C L 99 H 20 135/91 96 Room Air Laboratory Results 03/19/22 07:39 03/19/22 07:39 PG Care Time/CCT Total # of Minutes Spent Total Time Spent with Patient: Total time spent is greater than 50% in coordination of care (as documented) at patient's floor/unit and/or counseling patient: Coding Level of Care Code 54261 Subseq Hosp Care Lvl 3 Diagnoses Hypoxia R09.02 Elevated troponin R77.8 Acute leg pain M79.606 Laterality: unspecified laterality Anemia D64.9 Anemia type: unspecified type Cirrhosis K74.60 Chronic heart failure with preserved ejection fraction (HFpEF) I50.32 Hyperlipidemia E78.5 History of gout Z87.39 Depression with anxiety F41.8 Cerebrovascular disease I67.9 Atrial fibrillation I48.91 Atrial fibrillation type: unspecified Obstructive sleep apnea G47.33 Hypothyroidism E03.9 Hypothyroidism type: unspecified COPD (chronic obstructive pulmonary disease) J44.9 GERD (gastroesophageal reflux disease) K21.9 Esophagitis presence: esophagitis presence not specified Diabetes mellitus, type II E11.9 Hypertension I10 Pruritus L29.9 Blood bacterial culture positive R78.81 (1) Acute leg pain Laterality: unspecified laterality Qualified Code(s): M79.606 - Pain in leg, unspecified (2) Anemia Anemia type: unspecified type Qualified Code(s): D64.9 - Anemia, unspecified (3) Atrial fibrillation Atrial fibrillation type: unspecified Qualified Code(s): I48.91 - Unspecified atrial fibrillation (4) Hypothyroidism Hypothyroidism type: unspecified Qualified Code(s): E03.9 - Hypothyroidism, unspecified (5) GERD (gastroesophageal reflux disease) Esophagitis presence: esophagitis presence not specified Qualified Code(s): K21.9 - Gastro-esophageal reflux disease without esophagitis
--- NOTE | 2022-03-19 13:17 | XRay Report ---
XR chest 1V portable CLINICAL HISTORY: COPD exacerbation. COMPARISON STUDY: Chest radiograph March 17, 2022. FINDINGS: Lung volumes are normal. Lungs are clear. There is no pneumothorax or pleural effusion. Min imal right basilar opacity may reflect atelectasis. Cardiomegaly is unchanged. Mediastinal contours a re normal. There is no evidence for pulmonary edema. IMPRESSION: No acute cardiopulmonary findings. ACT 112: Negative or not required by law. Electronically signed by: Jeremy Gabriel M.D. 03/19/2022 1:15 PM
[2022-03-19] MEDS: POTASSIUM CHLORIDE CRTAB 20 MEQ TABCR PO SCH (22:00)
[2022-03-19] MEDS: MIRTAZAPINE TAB 15 MG TAB PO SCH (23:38)
[2022-03-19] MEDS: diphenhydrAMINE Capsule 25 MG CAP PO PRN (23:38)
[2022-03-20] MEDS: ACETAMINOPHEN 325 MG TAB PO PRN ×2 (00:28→07:59)
[2022-03-20] MEDS: INSULIN ASPART PER UNIT SC SCH ×5 (00:48→21:46)
[2022-03-20] MEDS: guaiFENesin 600 MG TABCR PO PRN ×2 (03:06→08:03)
[2022-03-20] MEDS: HYDROCORTISONE 1% CRM 30 GM TUBE EXT PRN ×2 (04:02→08:05)
[2022-03-20] MEDS: diphenhydrAMINE Capsule 25 MG CAP PO PRN (05:46)
[2022-03-20] MEDS: LEVOTHYROXINE SODIUM 50 MCG TABLET PO SCH (05:46)
[2022-03-20] MEDS: BENZONATATE 100 MG CAPSULE PO PRN ×2 (07:59→21:38)
[2022-03-20] MEDS: APIXABAN 2.5 MG TAB PO SCH ×2 (08:00→21:38)
[2022-03-20] MEDS: AZITHROMYCIN 250 MG TAB PO SCH (08:00)
[2022-03-20] MEDS: IRON POLYSACCHARIDE COMPLEX 150 MG CAPSULE PO SCH (08:00)
[2022-03-20] MEDS: BUMETANIDE 1 MG TAB PO SCH ×2 (08:00→17:25)
[2022-03-20] MEDS: allopurinoL 300 MG TAB PO SCH (08:01)
[2022-03-20] MEDS: CLOPIDOGREL BISULFATE 75 MG TAB PO SCH (08:01)
[2022-03-20] MEDS: PANTOprazole 40 MG TAB PO SCH (08:01)
[2022-03-20] MEDS: ISOSORBIDE MONO EXTENDED REL 30 MG TABCR PO SCH (08:02)
[2022-03-20] MEDS: METOPROLOL SUCC 50MG EXT REL TAB PO SCH ×2 (08:03→21:37)
[2022-03-20] MEDS: MAGNESIUM OXIDE 400 MG TAB PO SCH ×2 (08:03→21:39)
[2022-03-20] MEDS: POTASSIUM CHLORIDE CRTAB 20 MEQ TABCR PO SCH ×2 (08:03→21:47)
[2022-03-20] MEDS: DULoxetine HCL 30 MG CAP PO SCH (08:04)
[2022-03-20] MEDS: DULoxetine HCL 60 MG CAP PO SCH (08:04)
[2022-03-20] MEDS: CHOLECALCIFEROL 1,000 UNITS 25 MCG TAB PO SCH (08:04)
[2022-03-20] MEDS: predniSONE 20 MG TAB PO SCH (08:04)
[2022-03-20 09:06] LABS: Hematocrit (blood only) 28.4 % (34.1-44.9); Hemoglobin 8.8 g/dl (12.0-16.0); Mean Corpuscular Hemoglobin 35.2 pg (25.0-34.0); Mean Corpuscular Volume 113.6 fL (80.0-100.0); Mean Platelet Volume 12.7 fL (9.4-12.3); Nucleated RBC # (auto) 0.12 K/uL (0-0); Platelet Count 277 K/uL (130-400); RDW Coefficient of Variation 22.9 % (11.5-14.5); RDW Standard Deviation 92.8 fL (36.4-46.3)
[2022-03-20 09:35] LABS: Albumin Globulin Ratio 1.2 (0.9-2); Albumin Level 3.7 gm/dl (3.4-5.0); Bilirubin,Total 3.5 mg/dl (0.2-1.0); Calcium 8.4 mg/dl (8.5-10.1); Creatinine Clr Calc Pharmacy 16.4 ml/min; Est GFR (Non-African American) 23.3 ml/min; Globulin 3.2 gm/dl (2.5-4.0); Potassium 4.1 mmol/L (3.5-5.1); Total Protein 6.9 gm/dl (6.0-8.3)
[2022-03-20] MEDS ORDERED: VANCOMYCIN HCL 750 MG in SODIUM CHLORIDE 0.9% 250 ML IV ONE (10:30)
--- NOTE | 2022-03-20 10:31 | Pharmacy Report ---
Pharmacy PK ABX Note - Date of Service March 20, 2022 - Assessment and Plan Assessment 87 year old F receiving vancomycin for treatment of MRSA bacteremia. Pertinent microbiologic data includes: Blood culture X1 positive for staph in clusters with subsequent BioFire confirming detection of MRSA. SCr of 1.92 today, increased from previous values Day # 2/? of antimicrobial therapy. Plan Vancomycin * Will continue to dose based on levels due to unstable serum creatinine. Give 750mg now based on level of 21.2. * Random level ordered for: 03/20/22 @ 1999. Pharmacy will continue to follow and will adjust dose/frequency as necessary. Thank you.
[2022-03-20] MEDS: EUCERIN CR 120 GM JAR EXT PRN ×2 (11:38→21:46)
[2022-03-20] MEDS: DIGOXIN 0.125 MG TAB PO SCH (17:25)
--- NOTE | 2022-03-20 20:10 | Hospitalist Progress Note ---
Date of Service March 20, 2022 Assessment & Plan (1) Hypoxia: Plan: Acute hypoxic respiratory failure has now resolved. She is stable on room air. Was felt to be COPD exacerbation. Today is my first encounter with the patient (2) Pruritus: Plan: No rash. 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 It is causing significant distress and anxiety. Antihistamines like Benadryl are not effective for chronic pruritus because it is not histamine release mediated. Advised to stop using Dial soap and use something mild like Dove. Given instructions to use only creams out of jars which are more effective and to buy Eucerin to apply immediately after shower and repeat during the day. Avoid hot showers.. After applying Eucerin to her arms and legs and back the patient improved her pruritus through the day. (3) Elevated troponin: Plan: No evidence of acute coronary syndrome. Telemetry atrial fibrillation with controlled rate. Telemetry discontinued. We will follow (4) Acute leg pain: Plan: Patient noting right leg pain in the posterior knee and anterior tibia. No acute trauma or significant swelling compared to the LLE. Right leg venous Doppler negative for DVT. Pain control measures. -Fall precautions ordered No pain reported to me today (5) Anemia: Plan: Noted to be multifactorial on previous admissions. No overt GI bleeding. Will follow (6) Cirrhosis: Plan: Currently stable. Continue current management (7) Chronic heart failure with preserved ejection fraction (HFpEF): Plan: BNP chronically elevated. This is chronic with no acute exacerbation at this time. Continue current medical management. Monitor intake and output. (8) Hyperlipidemia: Plan: Continue statin . Low-cholesterol diet (9) History of gout: Plan: [place]nue allopurinol (10) Depression with anxiety: Plan: Continue duloxetine and HS remeron (11) Cerebrovascular disease: Plan: Continue plavix (12) Atrial fibrillation: Plan: Rate controlled with current medical management. Continue Eliquis, metoprolol, Digoxin (13) Obstructive sleep apnea: Plan: HS CPAP ordered. Stable (14) Hypothyroidism: Plan: Continue levothyroxine . Stable (15) COPD (chronic obstructive pulmonary disease): Plan: Admitted with acute exacerbation. Now approaching baseline. Continue current medical management. (16) GERD (gastroesophageal reflux disease): Plan: Continue pantoprazole (17) Diabetes mellitus, type II: Plan: She has developed hypoglycemia. Lantus has been discontinued. Sliding scale only for now. ADA diet. (18) Hypertension: Plan: Stable with current medical management (19) Blood bacterial culture positive: Plan: Gram-positive cocci in clusters isolated. Only 1 of 4 bottles plus positive. ID still pending Vanco day 1 Plan Was ready for discharge today but there was no ride available to pick her up. Expect discharge tomorrow with final ID of stapalexy in clusters 1/4 available Admission and Anticipated Discharge Date Admission Date: March 17, 2022 Subjective at 0945 h today, complained of itching of her arms and legs. That prevents her from sleeping for the last 6 months. Uses Dial soaps during shower and a bottle of aloe vera moisturizer which was lying at her bedside. Also has itching of her back. No shortness of breath. Able to walk with one- person assist. Willing to be discharged. Eating well per nursing. No confusion Does have significant 2-3 pillow orthopnea at home. Denied any cough or shortness of breath Physical Exam Physical Exam: Alert pleasant overweight lady, sitting on side of the bed, lucid historian in no acute distress scratching her legs Head and neck JVD to jaw angle at 30 degrees, Normal insight and judgment Chest clear to auscultation Abdomen slightly distended nontender Results & Data Results & Data ([facility]) Vital Signs (Past 12 Hours) Vital Signs Temp Pulse Pulse Resp BP Pulse Ox O2 Del Method 03/20/22 17:25 84 03/20/22 14:13 85 03/20/22 15:32 36.6 C 84 18 148/85 H 96 Room Air 03/20/22 15:14 36.6 C 84 18 148/85 H 96 Room Air 03/20/22 12:19 36.9 C 79 20 124/91 93 Room Air Laboratory Results Abnormal lab results 03/19/22 03/20/22 03/20/22 Range/Units 20:45 05:54 07:45 WBC (4.8-10.8) K/ul RBC (3.93-5.22) M/uL Hgb (12.0-16.0) g/dl Hct (34.1-44.9) % MCV (80.0-100.0) fL MCH (25.0-34.0) pg MCHC (32.0-36.0) g/dL RDW Std Deviation (36.4-46.3) fL RDW Coeff of Talia (11.5-14.5) % MPV (9.4-12.3) fL Absolute Nucleated RBC (0-0) K/uL Anion Gap (3-11) BUN (6-23) mg/dl Creatinine (0.6-1.2) mg/dl BUN/Creatinine Ratio (10-20) Glucose (70-99(Fasting)) mg/dl POC Glucose 111 H 199 H 201 H (70-99) mg/dl Calcium (8.5-10.1) mg/dl Total Bilirubin (0.2-1.0) mg/dl AST (13-39) U/L ALT (7-52) U/L Alkaline Phosphatase (34-104) U/L Random Vancomycin (10-20) mcg/ml 03/20/22 03/20/22 03/20/22 Range/Units 08:28 08:28 09:04 WBC 11.60 H (4.8-10.8) K/ul RBC 2.50 L (3.93-5.22) M/uL Hgb 8.8 L (12.0-16.0) g/dl Hct 28.4 L (34.1-44.9) % MCV 113.6 H (80.0-100.0) fL MCH 35.2 H (25.0-34.0) pg MCHC 31.0 L (32.0-36.0) g/dL RDW Std Deviation 92.8 H (36.4-46.3) fL RDW Coeff of Talia 22.9 H (11.5-14.5) % MPV 12.7 H (9.4-12.3) fL Absolute Nucleated RBC 0.12 H (0-0) K/uL Anion Gap 12 H (3-11) BUN 73 H (6-23) mg/dl Creatinine 1.92 H (0.6-1.2) mg/dl BUN/Creatinine Ratio 38.0 H (10-20) Glucose 205 H (70-99(Fasting)) mg/dl POC Glucose (70-99) mg/dl Calcium 8.4 L (8.5-10.1) mg/dl Total Bilirubin 3.5 H (0.2-1.0) mg/dl AST 50 H (13-39) U/L ALT 55 H (7-52) U/L Alkaline Phosphatase 244 H (34-104) U/L Random Vancomycin 21.2 H (10-20) mcg/ml 03/20/22 03/20/22 Range/Units 11:52 16:50 WBC (4.8-10.8) K/ul RBC (3.93-5.22) M/uL Hgb (12.0-16.0) g/dl Hct (34.1-44.9) % MCV (80.0-100.0) fL MCH (25.0-34.0) pg MCHC (32.0-36.0) g/dL RDW Std Deviation (36.4-46.3) fL RDW Coeff of Talia (11.5-14.5) % MPV (9.4-12.3) fL Absolute Nucleated RBC (0-0) K/uL Anion Gap (3-11) BUN (6-23) mg/dl Creatinine (0.6-1.2) mg/dl BUN/Creatinine Ratio (10-20) Glucose (70-99(Fasting)) mg/dl POC Glucose 235 H 100 H (70-99) mg/dl Calcium (8.5-10.1) mg/dl Total Bilirubin (0.2-1.0) mg/dl AST (13-39) U/L ALT (7-52) U/L Alkaline Phosphatase (34-104) U/L Random Vancomycin (10-20) mcg/ml Medications Administered Home Medications Medication Instructions Recorded Confirmed Last Taken cholecalciferol (vitamin D3) 25 2,000 unit PO QAM 05/11/20 03/17/22 04/22/21 mcg (1,000 unit) tablet (Vitamin D3) polyethylene glycol 3350 17 8.5 g PO DAILY PRN Constipation 01/28/21 03/17/22 Unknown gram/dose oral powder (Miralax) vit C 226 mg-vit E 90 mg-copper 1 cap PO BID 02/01/21 03/17/22 04/22/21 0.8 mg-zinc oxide-lutein 5 mg capsule (PreserVision Lutein) allopurinol 100 mg tablet 300 mg PO QAM #90 tabs 12/16/21 03/17/22 Unknown (Zyloprim) apixaban 2.5 mg tablet (Eliquis) 2.5 mg PO BID #180 tabs 12/16/21 03/17/22 Unknown bumetanide 2 mg tablet 2 mg PO BID #60 tabs 12/16/21 03/17/22 Unknown clopidogrel 75 mg tablet (Plavix) 75 mg PO QAM #90 tabs 12/16/21 03/17/22 Unknown digoxin 125 mcg (0.125 mg) tablet 125 mcg PO Q2D #15 tabs 12/16/21 03/17/22 Unknown (Digitek) duloxetine 30 mg capsule,delayed 30 mg PO QAM #90 caps 12/16/21 03/17/22 Unknown release (Cymbalta) duloxetine 60 mg capsule,delayed 60 mg PO QAM #90 caps 12/16/21 03/17/22 Unknown release (Cymbalta) isosorbide mononitrate 30 mg 30 mg PO QAM #90 tabs 12/16/21 03/17/22 Unknown tablet,extended release 24 hr levothyroxine 50 mcg tablet 50 mcg PO DAILYBB #30 tabs 12/16/21 03/17/22 Unknown (Synthroid) magnesium oxide 400 mg PO BID #180 tabs 12/16/21 03/17/22 Unknown metoprolol succinate 50 mg 150 mg PO BID #540 tabs 12/16/21 03/17/22 Unknown tablet,extended release 24 hr (Toprol XL) mirtazapine 15 mg tablet (Remeron) 15 mg PO HS #30 tabs 12/16/21 03/17/22 Unknown pantoprazole 40 mg tablet,delayed 40 mg PO QAM #90 tabs 12/16/21 03/17/22 Unknown release (Protonix) polysaccharide iron complex 150 mg 150 mg PO QAM #90 caps 12/16/21 03/17/22 Unknown iron capsule (Ferrex) potassium chloride 20 mEq 10 meq PO BID #180 tabs 12/16/21 03/17/22 Unknown tablet,extended release (K-Tab) insulin glargine 100 unit/mL (3 28 unit (0.28 mL) subcut HS #15 mL 12/18/21 03/17/22 Unknown mL) subcutaneous pen (Lantus Solostar U-100 Insulin) glucagon 1 mg solution for 1 mg subcut Q20M PRN hypoglycemia 01/02/22 03/17/22 Unknown injection (Glucagon Emergency Kit) #1 ea nitroglycerin 0.3 mg sublingual 0.3 mg sublingual Q5M PRN Chest 01/17/22 03/17/22 Unknown tablet Pain nystatin 100,000 unit/gram topical 1 applic topical TID 2 weeks #30 01/21/22 03/17/22 Unknown cream grams insulin aspart U-100 100 unit/mL 7 - 10 unit (0.07 - 0.1 mL) subcut 02/04/22 03/17/22 Unknown (3 mL) subcutaneous pen (Novolog TIDM #45 mL Flexpen U-100 Insulin aspart) clobetasol 0.05 % topical cream 1 applic topical BID #30 grams 02/19/22 03/17/22 Unknown guaifenesin 600 mg tablet, 600 mg PO BID PRN cough #60 tabs 03/13/22 03/17/22 Unknown extended release 12 hr Active Medications Generic Name Dose Route Start Last Admin Trade Name Freq PRN Reason Stop Dose Admin Acetaminophen 650 mg 03/17/22 19:19 03/20/22 07:59 Acetaminophen 325 Mg Tab PO 04/16/22 19:18 650 mg Q4H PRN Administration Pain (1,2,3) Or Fever Allopurinol 300 mg 03/18/22 09:00 03/20/22 08:01 Allopurinol 300 Mg Tab PO 04/17/22 08:59 300 mg QAM RODDY Administration Apixaban 2.5 mg 03/17/22 21:00 03/20/22 08:00 Apixaban 2.5 Mg Tab PO 04/16/22 20:59 2.5 mg BID RODDY Administration Azithromycin 250 mg 03/18/22 09:00 03/20/22 08:00 Azithromycin 250 Mg Tab PO 03/21/22 09:01 250 mg QAM RODDY Administration Benzonatate 100 mg 03/19/22 00:26 03/20/22 07:59 Benzonatate 100 Mg Capsule PO 04/18/22 00:25 100 mg TID PRN Administration Cough Bumetanide 2 mg 03/17/22 19:45 03/20/22 17:25 Bumetanide 1 Mg Tab PO 04/16/22 19:44 2 mg BID17 RODDY Administration Clopidogrel Bisulfate 75 mg 03/18/22 09:00 03/20/22 08:01 Clopidogrel Bisulfate 75 Mg Tab PO 04/17/22 08:59 75 mg QAM RODDY Administration Digoxin 0.125 mg 03/18/22 16:00 03/20/22 17:25 Digoxin 0.125 Mg Tab PO 04/17/22 15:59 0.125 mg Q2D@1600 RODDY Administration Diphenhydramine HCl 50 mg 03/18/22 12:34 03/20/22 05:46 Diphenhydramine Capsule 25 Mg Cap PO 04/17/22 12:33 50 mg Q6H PRN Administration Itching Duloxetine HCl 60 mg 03/18/22 09:00 03/20/22 08:04 Duloxetine Hcl 60 Mg Cap PO 04/17/22 08:59 60 mg QAM RODDY Administration Duloxetine HCl 30 mg 03/18/22 09:00 03/20/22 08:04 Duloxetine Hcl 30 Mg Cap PO 04/17/22 08:59 30 mg QAM RODDY Administration Glucose 15 - 30 gm 03/17/22 16:37 03/19/22 08:12 Glucose 40% Gel 15 Gm Tube PO 04/16/22 16:36 30 gm UD PRN Administration Hypoglycemia Protocol Protocol Guaifenesin 600 mg 03/17/22 19:19 03/20/22 08:03 Guaifenesin 600 Mg Tabcr PO 04/16/22 19:18 600 mg BID PRN Administration cough Hydrocortisone 1 appln 03/20/22 03:10 03/20/22 08:05 Hydrocortisone 1% Crm 30 Gm Tube EXT 04/19/22 03:09 1 appln BID PRN Administration rash or itching Insulin Aspart 0 units 03/17/22 21:00 03/20/22 17:25 Insulin Aspart Per Unit SC 04/16/22 20:59 Not Given ACHS RODDY Isosorbide Mononitrate 30 mg 03/18/22 09:00 03/20/22 08:02 Isosorbide [place] Extended Rel 30 Mg Tabcr PO 04/17/22 08:59 30 mg QAM RODDY Administration Levothyroxine Sodium 50 mcg 03/18/22 06:30 03/20/22 05:46 Levothyroxine Sodium 50 Mcg Tablet PO 04/17/22 06:29 50 mcg DAILYBB RODDY Administration Magnesium Oxide 400 mg 03/17/22 21:00 03/20/22 08:03 Magnesium Oxide 400 Mg Tab PO 04/16/22 20:59 400 mg BID RODDY Administration Metoprolol Succinate 150 mg 03/17/22 21:00 03/20/22 08:03 Metoprolol Succ 50mg Ext Rel Tab PO 04/16/22 20:59 150 mg BID RODDY Administration Mirtazapine 15 mg 03/17/22 21:00 03/19/22 23:38 Mirtazapine Tab 15 Mg Tab PO 04/16/22 20:59 15 mg HS RODDY Administration Miscellaneous 15 - 30 gm 03/17/22 16:37 03/19/22 07:49 Carbohydrates For Hypoglycemia PO 04/16/22 16:36 30 gm UD PRN Administration Hypoglycemia Protocol Multi-Ingredient Cream 1 appln 03/20/22 10:14 03/20/22 11:38 Eucerin Cr 120 Gm Jar EXT 04/19/22 10:13 1 appln [id number] PRN Administration Itching Pantoprazole Sodium 40 mg 03/18/22 09:00 03/20/22 08:01 Pantoprazole 40 Mg Tab PO 04/17/22 08:59 40 mg QAM RODDY Administration Polysaccharide Iron Complex 150 mg 03/18/22 09:00 03/20/22 08:00 Iron Polysaccharide Complex 150 Mg Capsule PO 04/17/22 08:59 150 mg QAM RODDY Administration Potassium Chloride 20 meq 03/19/22 21:00 03/20/22 08:03 Potassium Chloride Crtab 20 Meq Tabcr PO 04/18/22 20:59 20 meq BID RODDY Administration Prednisone 40 mg 03/18/22 09:00 03/20/22 08:04 Prednisone 20 Mg Tab PO 03/22/22 09:01 40 mg DAILY RODDY Administration Vitamin D 2,000 units 03/18/22 09:00 03/20/22 08:04 Cholecalciferol 1,000 Units 25 Mcg Tab PO 04/17/22 08:59 2,000 units QAM RODDY Administration PG Care Time/CCT Total # of Minutes Spent Total Time Spent with Patient: Total time spent is greater than 50% in coordination of care (as documented) at patient's floor/unit and/or counseling patient: Coding Level of Care Code 49995 Subseq Hosp Care Lvl 2 Diagnoses Hypoxia R09.02 Pruritus L29.9 Elevated troponin R77.8 Acute leg pain M79.606 Laterality: unspecified laterality Anemia D64.9 Anemia type: unspecified type Cirrhosis K74.60 Chronic heart failure with preserved ejection fraction (HFpEF) I50.32 Hyperlipidemia E78.5 History of gout Z87.39 Depression with anxiety F41.8 Cerebrovascular disease I67.9 Atrial fibrillation I48.91 Atrial fibrillation type: unspecified Obstructive sleep apnea G47.33 Hypothyroidism E03.9 Hypothyroidism type: unspecified COPD (chronic obstructive pulmonary disease) J44.9 GERD (gastroesophageal reflux disease) K21.9 Esophagitis presence: esophagitis presence not specified Diabetes mellitus, type II E11.9 Hypertension I10 Blood bacterial culture positive R78.81 (1) Acute leg pain Laterality: unspecified laterality Qualified Code(s): M79.606 - Pain in leg, unspecified (2) Anemia Anemia type: unspecified type Qualified Code(s): D64.9 - Anemia, unspecified (3) Atrial fibrillation Atrial fibrillation type: unspecified Qualified Code(s): I48.91 - Unspecified atrial fibrillation (4) Hypothyroidism Hypothyroidism type: unspecified Qualified Code(s): E03.9 - Hypothyroidism, unspecified (5) GERD (gastroesophageal reflux disease) Esophagitis presence: esophagitis presence not specified Qualified Code(s): K21.9 - Gastro-esophageal reflux disease without esophagitis
[2022-03-20] MEDS: MIRTAZAPINE TAB 15 MG TAB PO SCH (21:36)
[2022-03-21] MEDS ORDERED: VANCOMYCIN HCL 500 MG in DEXTROSE 5% 100 ML IV ONE
[2022-03-21] MEDS: LEVOTHYROXINE SODIUM 50 MCG TABLET PO SCH (04:36)
[2022-03-21] MEDS: CLOPIDOGREL BISULFATE 75 MG TAB PO SCH (08:34)
[2022-03-21] MEDS: IRON POLYSACCHARIDE COMPLEX 150 MG CAPSULE PO SCH (08:35)
[2022-03-21] MEDS: DULoxetine HCL 60 MG CAP PO SCH (08:35)
[2022-03-21] MEDS: allopurinoL 300 MG TAB PO SCH (08:35)
[2022-03-21] MEDS: PANTOprazole 40 MG TAB PO SCH (08:35)
[2022-03-21] MEDS: AZITHROMYCIN 250 MG TAB PO SCH (08:35)
[2022-03-21] MEDS: predniSONE 20 MG TAB PO SCH (08:35)
[2022-03-21] MEDS: METOPROLOL SUCC 50MG EXT REL TAB PO SCH ×2 (08:35→20:20)
[2022-03-21] MEDS: POTASSIUM CHLORIDE CRTAB 20 MEQ TABCR PO SCH ×2 (08:36→20:21)
[2022-03-21] MEDS: CHOLECALCIFEROL 1,000 UNITS 25 MCG TAB PO SCH (08:36)
[2022-03-21] MEDS: ISOSORBIDE MONO EXTENDED REL 30 MG TABCR PO SCH (08:36)
[2022-03-21] MEDS: BUMETANIDE 1 MG TAB PO SCH ×2 (08:36→16:30)
[2022-03-21] MEDS: MAGNESIUM OXIDE 400 MG TAB PO SCH ×2 (08:36→20:20)
[2022-03-21] MEDS: DULoxetine HCL 30 MG CAP PO SCH (08:37)
[2022-03-21] MEDS: APIXABAN 2.5 MG TAB PO SCH ×2 (08:37→20:20)
[2022-03-21] MEDS: INSULIN ASPART PER UNIT SC SCH ×4 (08:45→22:38)
[2022-03-21 11:36] LABS: Creatinine Clr Calc Pharmacy 16.5 ml/min; Est GFR (African American) 27.4 ml/min; Est GFR (Non-African American) 23.6 ml/min
--- NOTE | 2022-03-21 12:07 | Pharmacy Report ---
Pharmacy PK ABX Note - Date of Service March 21, 2022 - Assessment and Plan Assessment 87 year old F receiving vancomycin for treatment of MRSA bacteremia. Pertinent microbiologic data includes: Blood culture X1 positive for staph in clusters with subsequent BioFire confirming detection of MRSA. SCr of 1.92 today, increased from previous values Day # 3/? of antimicrobial therapy. Plan Vancomycin * Creatinine stable, will begin maintenance dosing of 750mg Q24H * Random level ordered for: 03/22/22 with AM labs. Pharmacy will continue to follow and will adjust dose/frequency as necessary. Thank you.
[2022-03-21] MEDS: VANCOMYCIN HCL 750 MG in SODIUM CHLORIDE 0.9% 250 ML IV SCH (12:37)
[2022-03-21] MEDS: ACETAMINOPHEN 325 MG TAB PO PRN (13:41)
--- NOTE | 2022-03-21 16:03 | XCELERA ---
[id number]
[2022-03-21] MEDS: EUCERIN CR 120 GM JAR EXT PRN (17:21)
--- NOTE | 2022-03-21 19:25 | Hospitalist Progress Note ---
Date of Service March 21, 2022 Assessment & Plan (1) MRSA bacteremia: Plan: On vancomycin and blood cultures repeated today. Only 1 of 4 blood cultures were initially positive for MRSA Echocardiogram report pending No hardware in her body. Discussed with ID Dr Richards-kathleen the current course May needTEE Patient has never had hip replacement or any cardiac procedures except for coronary stenting post [place] (2) Hypoxia: Plan: Acute hypoxic respiratory failure has now resolved. She is stable on room air. Was felt to be COPD exacerbation. Now resolved and baseline (3) Chronic kidney disease (CKD): Plan: ARF on CKD stage IIIon home dose of Bumex but p.o. intake probably not as good. Check CMP in the morning. Home lisinopril being held. Metoprolol 150 twice daily ongoing. Add amlodipine for improving blood pressure. 5 mg hs. Vanco dosing being adjusted by pharmacy and that is appreciated (4) Pruritus: Plan: No rash. 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 It is causing significant distress and anxiety. Antihistamines like Benadryl are not effective for chronic pruritus because it is not histamine release mediated. Advised to stop using Dial soap and use something mild like Dove. Given instructions to use only creams out of jars which are more effective and to buy Eucerin to apply immediately after shower and repeat during the day. Avoid hot showers. After applying Eucerin to her arms and legs and back the patient 's symptoms improved . (5) Elevated troponin: Plan: No evidence of acute coronary syndrome. Telemetry atrial fibrillation with cont rolled rate. Telemetry discontinued. We will follow (6) Acute leg pain: Plan: Not mentioned last 2 days (7) Anemia: Plan: Noted to be multifactorial on previous admissions. No overt GI bleeding. Will follow (8) Cirrhosis: Plan: Currently stable. Continue current management Etiology unclear-and a diagnosis before admission (9) Chronic heart failure with preserved ejection fraction (HFpEF): Plan: BNP chronically elevated. This is chronic with no acute exacerbation at this time. Continue current medical management. Monitor intake and output. History of CAD stash on isosorbide (10) Hyperlipidemia: Plan: Continue statin . Low-cholesterol diet (11) History of gout: Plan: Contihnue allopurinol (12) Depression with anxiety: Plan: Continue duloxetine and HS remeron (13) Cerebrovascular disease: Plan: Continue plavix (14) Atrial fibrillation: Plan: Rate controlled with current medical management. Continue Eliquis, metoprolol, Digoxin (15) Obstructive sleep apnea: Plan: HS CPAP ordered. Stable (16) Hypothyroidism: Plan: Continue levothyroxine . Stable (17) COPD (chronic obstructive pulmonary disease): Plan: Admitted with acute exacerbation. Now approaching baseline. Continue current medical management. (18) GERD (gastroesophageal reflux disease): Plan: Continue pantoprazole (19) Diabetes mellitus, type II: Plan: She had developed hypoglycemia. Lantus has been discontinued. (20) Hypertension: Plan: Stable with current medical management Plan Was ready for discharge today but there was no ride available to pick her up. Expect discharge tomorrow with final ID of ana in clusters 04/09 available Admission and Anticipated Discharge Date Admission Date: March 17, 2022 Subjective seen around 1630 h I want to go home. Itching much improved. The edges of. She is not able to sleep at night for other reasons. Orthopnea 3 pillow baseline, occasional cough which she attributes to heart failure and is chronic Physical Exam Physical Exam: Alert pleasant overweight lady, lying in bed lucid historian , watching television Head and neck moist tongue Normal insight and judgment Chest clear to auscultation CVS S1-S2 systolic ejection murmur grade 2 Abdomen slightly distended nontender Results & Data Results & Data ([facility]) Vital Signs (Past 12 Hours) Vital Signs Temp Pulse Resp BP Pulse Ox O2 Del Method 03/21/22 15:47 36.7 C 82 18 146/84 H 96 Room Air 03/21/22 10:38 Room Air Laboratory Results 03/21/22 15:20 Aerobic Blood Culture - Pending Blood Anaerobic Blood Culture - Pending 03/21/22 15:16 Aerobic Blood Culture - Pending Blood Anaerobic Blood Culture - Pending 03/17/22 14:57 Aerobic Blood Culture - Preliminary Blood Staph aureus MRSA Anaerobic Blood Culture - Preliminary No growth in Anaerobic bottle after 48 hours. 03/21/22 03/21/22 03/21/22 Unknown 17:10 12:15 Creatinine Est Cr Clr Drug Dosing Est GFR ( Amer) Est GFR (Non-Af Amer) POC Glucose 180 H 247 H Nasal Screen MRSA (PCR) Positive A Vancomycin Trough Random Vancomycin 03/21/22 03/21/22 03/21/22 10:33 10:33 08:12 Creatinine 1.90 H Est Cr Clr Drug Dosing 16.5 Est GFR ( Amer) 27.4 Est GFR (Non-Af Amer) 23.6 POC Glucose 190 H Nasal Screen MRSA (PCR) Vancomycin Trough Random Vancomycin 20.5 H 03/20/22 03/20/22 20:29 19:45 Creatinine Est Cr Clr Drug Dosing Est GFR ( Amer) Est GFR (Non-Af Amer) POC Glucose 169 H Nasal Screen MRSA (PCR) Vancomycin Trough 24.2 H Random Vancomycin Medications Administered Home Medications Medication Instructions Recorded Confirmed Last Taken cholecalciferol (vitamin D3) 25 2,000 unit PO QAM 05/11/20 03/17/22 04/22/21 mcg (1,000 unit) tablet (Vitamin D3) polyethylene glycol 3350 17 8.5 g PO DAILY PRN Constipation 01/28/21 03/17/22 Unknown gram/dose oral powder (Miralax) vit C 226 mg-vit E 90 mg-copper 1 cap PO BID 02/01/21 03/17/22 04/22/21 0.8 mg-zinc oxide-lutein 5 mg capsule (PreserVision Lutein) allopurinol 100 mg tablet 300 mg PO QAM #90 tabs 12/16/21 03/17/22 Unknown (Zyloprim) apixaban 2.5 mg tablet (Eliquis) 2.5 mg PO BID #180 tabs 12/16/21 03/17/22 Unknown bumetanide 2 mg tablet 2 mg PO BID #60 tabs 12/16/21 03/17/22 Unknown clopidogrel 75 mg tablet (Plavix) 75 mg PO QAM #90 tabs 12/16/21 03/17/22 Unknown digoxin 125 mcg (0.125 mg) tablet 125 mcg PO Q2D #15 tabs 12/16/21 03/17/22 Unknown (Digitek) duloxetine 30 mg capsule,delayed 30 mg PO QAM #90 caps 12/16/21 03/17/22 Unknown release (Cymbalta) duloxetine 60 mg capsule,delayed 60 mg PO QAM #90 caps 12/16/21 03/17/22 Unknown release (Cymbalta) isosorbide mononitrate 30 mg 30 mg PO QAM #90 tabs 09/03/2703/17/22 Unknown tablet,extended release 24 hr levothyroxine 50 mcg tablet 50 mcg PO DAILYBB #30 tabs 12/16/21 03/17/22 Unknown (Synthroid) magnesium oxide 400 mg PO BID #180 tabs 12/16/21 03/17/22 Unknown metoprolol succinate 50 mg 150 mg PO BID #540 tabs 12/16/21 03/17/22 Unknown tablet,extended release 24 hr (Toprol XL) mirtazapine 15 mg tablet (Remeron) 15 mg PO HS #30 tabs 12/16/21 03/17/22 Unknown pantoprazole 40 mg tablet,delayed 40 mg PO QAM #90 tabs 12/16/21 03/17/22 Unknown release (Protonix) polysaccharide iron complex 150 mg 150 mg PO QAM #90 caps 12/16/21 03/17/22 Unknown iron capsule (Ferrex) potassium chloride 20 mEq 10 meq PO BID #180 tabs 12/16/21 03/17/22 Unknown tablet,extended release (K-Tab) insulin glargine 100 unit/mL (3 28 unit (0.28 mL) subcut HS #15 mL 12/18/21 03/17/22 Unknown mL) subcutaneous pen (Lantus Solostar U-100 Insulin) glucagon 1 mg solution for 1 mg subcut Q20M PRN hypoglycemia 01/02/22 03/17/22 Unknown injection (Glucagon Emergency Kit) #1 ea nitroglycerin 0.3 mg sublingual 0.3 mg sublingual Q5M PRN Chest 01/17/22 03/17/22 Unknown tablet Pain nystatin 100,000 unit/gram topical 1 applic topical TID 2 weeks #30 01/21/22 03/17/22 Unknown cream grams insulin aspart U-100 100 unit/mL 7 - 10 unit (0.07 - 0.1 mL) subcut 02/04/22 03/17/22 Unknown (3 mL) subcutaneous pen (Novolog TIDM #45 mL Flexpen U-100 Insulin aspart) clobetasol 0.05 % topical cream 1 applic topical BID #30 grams 02/19/22 03/17/22 Unknown guaifenesin 600 mg tablet, 600 mg PO BID PRN cough #60 tabs 03/13/22 03/17/22 Unknown extended release 12 hr Active Medications Generic Name Dose Route Start Last Admin Trade Name Freq PRN Reason Stop Dose Admin Acetaminophen 650 mg 03/17/22 19:19 03/21/22 13:41 Acetaminophen 325 Mg Tab PO 04/16/22 19:18 650 mg Q4H PRN Administration Pain (1,2,3) Or Fever Allopurinol 300 mg 03/18/22 09:00 03/21/22 08:35 Allopurinol 300 Mg Tab PO 04/17/22 08:59 300 mg QAM RODDY Administration Apixaban 2.5 mg 03/17/22 21:00 03/21/22 08:37 Apixaban 2.5 Mg Tab PO 04/16/22 20:59 2.5 mg BID RODDY Administration Benzonatate 100 mg 03/19/22 00:26 03/20/22 21:38 Benzonatate 100 Mg Capsule PO 04/18/22 00:25 100 mg TID PRN Administration Cough Bumetanide 2 mg 03/17/22 19:45 03/21/22 16:30 Bumetanide 1 Mg Tab PO 04/16/22 19:44 2 mg BID17 RODDY Administration Clopidogrel Bisulfate 75 mg 03/18/22 09:00 03/21/22 08:34 Clopidogrel Bisulfate 75 Mg Tab PO 04/17/22 08:59 75 mg QAM RODDY Administration Digoxin 0.125 mg 03/18/22 16:00 03/20/22 17:25 Digoxin 0.125 Mg Tab PO 04/17/22 15:59 0.125 mg Q2D@1600 RODDY Administration Diphenhydramine HCl 50 mg 03/18/22 12:34 03/20/22 05:46 Diphenhydramine Capsule 25 Mg Cap PO 04/17/22 12:33 50 mg Q6H PRN Administration Itching Duloxetine HCl 60 mg 03/18/22 09:00 03/21/22 08:35 Duloxetine Hcl 60 Mg Cap PO 04/17/22 08:59 60 mg QAM RODDY Administration Duloxetine HCl 30 mg 03/18/22 09:00 03/21/22 08:37 Duloxetine Hcl 30 Mg Cap PO 04/17/22 08:59 30 mg QAM RODDY Administration Glucose 15 - 30 gm 03/17/22 16:37 03/19/22 08:12 Glucose 40% Gel 15 Gm Tube PO 04/16/22 16:36 30 gm UD PRN Administration Hypoglycemia Protocol Protocol Guaifenesin 600 mg 03/17/22 19:19 03/20/22 08:03 Guaifenesin 600 Mg Tabcr PO 04/16/22 19:18 600 mg BID PRN Administration cough Hydrocortisone 1 appln 03/20/22 03:10 03/20/22 08:05 Hydrocortisone 1% Crm 30 Gm Tube EXT 04/19/22 03:09 1 appln BID PRN Administration rash or itching Vancomycin HCl 750 mg/ Sodium 265 mls @ 200 mls/hr 03/21/22 12:00 03/21/22 14:01 Chloride IV 04/02/22 11:59 Infused Q24H RODDY Infusion Protocol Insulin Aspart 0 units 03/17/22 21:00 03/21/22 18:03 Insulin Aspart Per Unit SC 04/16/22 20:59 7 units ACHS RODDY Administration Isosorbide Mononitrate 30 mg 03/18/22 09:00 03/21/22 08:36 Isosorbide Emanuel Extended Rel 30 Mg Tabcr PO 04/17/22 08:59 30 mg QAM RODDY Administration Levothyroxine Sodium 50 mcg 03/18/22 06:30 03/21/22 04:36 Levothyroxine Sodium 50 Mcg Tablet PO 04/17/22 06:29 50 mcg DAILYBB RODDY Administration Magnesium Oxide 400 mg 03/17/22 21:00 03/21/22 08:36 Magnesium Oxide 400 Mg Tab PO 04/16/22 20:59 400 mg BID RODDY Administration Metoprolol Succinate 150 mg 03/17/22 21:00 03/21/22 08:35 Metoprolol Succ 50mg Ext Rel Tab PO 04/16/22 20:59 150 mg BID RODDY Administration Mirtazapine 15 mg 03/17/22 21:00 03/20/22 21:36 Mirtazapine Tab 15 Mg Tab PO 04/16/22 20:59 15 mg HS RODDY Administration Miscellaneous 15 - 30 gm 03/17/22 16:37 03/19/22 07:49 Carbohydrates For Hypoglycemia PO 04/16/22 16:36 30 gm UD PRN Administration Hypoglycemia Protocol Multi-Ingredient Cream 1 appln 03/20/22 10:14 03/21/22 17:21 Eucerin Cr 120 Gm Jar EXT 04/19/22 10:13 1 appln [id number] PRN Administration Itching Pantoprazole Sodium 40 mg 03/18/22 09:00 03/21/22 08:35 Pantoprazole 40 Mg Tab PO 04/17/22 08:59 40 mg QAM RODDY Administration Polysaccharide Iron Complex 150 mg 03/18/22 09:00 03/21/22 08:35 Iron Polysaccharide Complex 150 Mg Capsule PO 04/17/22 08:59 150 mg QAM RODDY Administration Potassium Chloride 20 meq 03/19/22 21:00 03/21/22 08:36 Potassium Chloride Crtab 20 Meq Tabcr PO 04/18/22 20:59 20 meq BID RODDY Administration Prednisone 40 mg 03/18/22 09:00 03/21/22 08:35 Prednisone 20 Mg Tab PO 03/22/22 09:01 40 mg DAILY RODDY Administration Vitamin D 2,000 units 03/18/22 09:00 03/21/22 08:36 Cholecalciferol 1,000 Units 25 Mcg Tab PO 04/17/22 08:59 2,000 units QAM RODDY Administration PG Care Time/CCT Total # of Minutes Spent Total Time Spent with Patient: Total time spent is greater than 50% in coordination of care (as documented) at patient's floor/unit and/or counseling patient: Coding Level of Care Code 08596 Subseq Hosp Care Lvl 3 Diagnoses MRSA bacteremia R78.81; B95.62 Hypoxia R09.02 Chronic kidney disease (CKD) N18.9 Pruritus L29.9 Elevated troponin R77.8 Acute leg pain M79.606 Laterality: unspecified laterality Anemia D64.9 Anemia type: unspecified type Cirrhosis K74.60 Chronic heart failure with preserved ejection fraction (HFpEF) I50.32 Hyperlipidemia E78.5 History of gout Z87.39 Depression with anxiety F41.8 Cerebrovascular disease I67.9 Atrial fibrillation I48.91 Atrial fibrillation type: unspecified Obstructive sleep apnea G47.33 Hypothyroidism E03.9 Hypothyroidism type: unspecified COPD (chronic obstructive pulmonary disease) J44.9 GERD (gastroesophageal reflux disease) K21.9 Esophagitis presence: esophagitis presence not specified Diabetes mellitus, type II E11.9 Hypertension I10 (1) Acute leg pain Laterality: unspecified laterality Qualified Code(s): M79.606 - Pain in leg, unspecified (2) Anemia Anemia type: unspecified type Qualified Code(s): D64.9 - Anemia, unspecified (3) Atrial fibrillation Atrial fibrillation type: unspecified Qualified Code(s): I48.91 - Unspecified atrial fibrillation (4) Hypothyroidism Hypothyroidism type: unspecified Qualified Code(s): E03.9 - Hypothyroidism, unspecified (5) GERD (gastroesophageal reflux disease) Esophagitis presence: esophagitis presence not specified Qualified Code(s): K21.9 - Gastro-esophageal reflux disease without esophagitis
[2022-03-21] MEDS: MIRTAZAPINE TAB 15 MG TAB PO SCH (20:20)
[2022-03-21] MEDS: amLODIPine BESYLATE 5 MG TAB PO SCH (21:05)
[2022-03-21] MEDS: BENZONATATE 100 MG CAPSULE PO PRN (21:05)
[2022-03-22] MEDS: LEVOTHYROXINE SODIUM 50 MCG TABLET PO SCH (06:42)
[2022-03-22] MEDS: CHOLECALCIFEROL 1,000 UNITS 25 MCG TAB PO SCH (08:02)
[2022-03-22] MEDS: IRON POLYSACCHARIDE COMPLEX 150 MG CAPSULE PO SCH (08:02)
[2022-03-22] MEDS: DULoxetine HCL 60 MG CAP PO SCH (08:02)
[2022-03-22] MEDS: CLOPIDOGREL BISULFATE 75 MG TAB PO SCH (08:02)
[2022-03-22] MEDS: POTASSIUM CHLORIDE CRTAB 20 MEQ TABCR PO SCH ×2 (08:02→21:34)
[2022-03-22] MEDS: ISOSORBIDE MONO EXTENDED REL 30 MG TABCR PO SCH (08:02)
[2022-03-22] MEDS: DULoxetine HCL 30 MG CAP PO SCH (08:02)
[2022-03-22] MEDS: METOPROLOL SUCC 50MG EXT REL TAB PO SCH ×2 (08:02→21:32)
[2022-03-22] MEDS: APIXABAN 2.5 MG TAB PO SCH ×2 (08:02→21:34)
[2022-03-22] MEDS: predniSONE 20 MG TAB PO SCH (08:02)
[2022-03-22] MEDS: allopurinoL 300 MG TAB PO SCH (08:03)
[2022-03-22] MEDS: PANTOprazole 40 MG TAB PO SCH (08:03)
[2022-03-22] MEDS: MAGNESIUM OXIDE 400 MG TAB PO SCH ×2 (08:03→21:33)
[2022-03-22] MEDS: BUMETANIDE 1 MG TAB PO SCH ×2 (08:03→16:34)
[2022-03-22 08:40] LABS: Creatinine Clr Calc Pharmacy 18.6 ml/min; Est GFR (African American) 31.5 ml/min; Est GFR (Non-African American) 27.2 ml/min
[2022-03-22] MEDS: INSULIN ASPART PER UNIT SC SCH ×2 (09:01→13:34)
--- NOTE | 2022-03-22 10:32 | Pharmacy Report ---
Pharmacy PK ABX Note - Date of Service March 22, 2022 - Assessment and Plan Assessment 87 year old F receiving vancomycin for treatment of MRSA bacteremia. Pertinent microbiologic data includes: Blood culture X1 positive for staph in clusters with subsequent [employer] confirming detection of MRSA. Repeat cultures (03/21) pending. SCr 1.9 -->1.69mg/dL. Day # 4/? of antimicrobial therapy. Plan Vancomycin * Random level this AM, 19.6mcg/mL (19hr level) predicted to achieve a steady state AUC of 500mg/L/hr - therapeutic. * Continue vancomycin 750mg IV q24h * Will repeat a level in 48h or sooner if clinically indicated. Pharmacy will continue to follow and will adjust dose/frequency as necessary. Thank you.
[2022-03-22] MEDS: VANCOMYCIN HCL 750 MG in SODIUM CHLORIDE 0.9% 250 ML IV SCH (11:14)
[2022-03-22] MEDS: DIGOXIN 0.125 MG TAB PO SCH (16:12)
--- NOTE | 2022-03-22 16:25 | Hospitalist Progress Note ---
Date of Service March 22, 2022 Assessment & Plan (1) Hypoxia: Plan: Mrs. Porter is an 87 yo woman with a PMHx of COPD who was admitted for hypoxic respiratory failure. - now resolved - Was felt to be COPD exacerbation (2) MRSA bacteremia: Plan: - Blood cultures 03/17/22: 1 of 4 growing MRSA - patient was started on renally dosed vancomycin - Repeat blood cultures 03/21/22 showing no growth through 24 hours (these were drawn after the vanoc was initiated) - As for a possible source: CXR showed no evidence of focal consolidations which would be consistent with a PNA. UA negative. No diarrhea. Furthermore, her WBC on admission was normal, as was the procal. - No hardware in her body; has never had hip replacement or any cardiac procedures except for coronary stenting post [place] - TTE showing no vegetations on valves - This case was discussed with ID Dr Richards by Dr. Styles; ID recommended keep the current course- she is planning to formally consult ID on Thursday03/24/22 - May need LUNA; I did discuss with Dr. Reveles on 03/22/22 - these procedures can only be done M-F (not over the weekend). However, I am strongly suspicious this one positive blood culture is a contaminant. TEEs are not indicated simply for gram + blood cultures - they are only indicated when there is clinical suspicion for endocarditis. 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 Careful consideration should be used before pursuing LUNA in this case. With regard to the Cardona criteria, there are no pathologic criteria or major criteria for endocarditis. Only one minor criteria is met. (3) Chronic kidney disease (CKD): Plan: - ARF on CKD stage III on home dose of Bumex but p.o. intake probably not as good. - Cr today at 1.69., down from 1.90. approximately back to baseline. - BMP check in am, if stable or further improvement, may resume home JOY (mark da silva on hold) - Metoprolol 150 twice daily ongoing; amlodipine was added as well earlier in hospital course for HTN (4) Pruritus: Plan: No rash. 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 It is causing significant distress and anxiety. Antihistamines like Benadryl are not effective for chronic pruritus because it is not histamine release mediated. Advised to stop using Dial soap and use something mild like Dove. Given instructions to use only creams out of jars which are more effective and to buy Eucerin to apply immediately after shower and repeat during the day. Avoid hot showers. After applying Eucerin to her arms and legs and back the patient 's symptoms improved . (5) Elevated troponin: Plan: No evidence of acute coronary syndrome. Telemetry atrial fibrillation with controlled rate. Telemetry discontinued. We will follow (6) Acute leg pain: Plan: - Patient noting right leg pain in the posterior knee and anterior tibia. - No acute trauma or significant swelling compared to the LLE. - Right leg venous Doppler negative for DVT. - Fall precautions ordered - PO Tylenol, Topical Voltaren gel ordered prn - Recommend PO NSAID use given concurrent Eliquis and Plavix use. Could try IV Tylenol overnight if pain escalates in an effort to avoid tramadol or narcotic. (7) Anemia: Plan: Noted to be multifactorial on previous admissions. No overt GI bleeding. Will follow (8) Cirrhosis: Plan: Currently stable. Continue current management Etiology unclear-and a diagnosis before admission (9) Chronic heart failure with preserved ejection fraction (HFpEF): Plan: BNP chronically elevated. This is chronic with no acute exacerbation at this time. Continue current medical management. Monitor intake and output. (10) Hyperlipidemia: Plan: - Continue statin. Low-cholesterol diet (11) History of gout: Plan: - Continue allopurinol (12) Depression with anxiety: Plan: - Continue duloxetine and HS remeron (13) Cerebrovascular disease: Plan: - Continue plavix in addition to Eliquis, which certainly places her at an elevated bleeding risk (14) Atrial fibrillation: Plan: - Rate controlled with current medical management. Continue Eliquis, metoprolol, Digoxin (15) Obstructive sleep apnea: Plan: - HS CPAP ordered. Stable (16) Hypothyroidism: Plan: - Continue levothyroxine . Stable (17) COPD (chronic obstructive pulmonary disease): Plan: - Admitted with acute exacerbation. Now approaching baseline. Continue current medical management. (18) GERD (gastroesophageal reflux disease): Plan: - Continue pantoprazole (19) Diabetes mellitus, type II: Plan: - A1c was > 9 in 12/2021 - Most recent A1c was 5.1, well below goal - her home Lantus has been discontinued - we can stop her Novolog as well - She tenzin needs a oral medication to go home with - consider metformin (not listed as an allergy) vs. SGLT2i for additional CAD benefit (20) Hypertension: Plan: - Stable with current medical management of bumex, amlodipine and metoprolol Diet: Heart Healthy, Carb Consistent DVT ppx: On Eliquis Dispo: Med/Surg -- she is currently at a [facility] prison. Code: DNR/DNI Admission and Anticipated Discharge Date Admission Date: March 17, 2022 Subjective No acute events overnight. Patient is discouraged about having to remain in hospital Review of Systems Review of Systems: All systems reviewed & are unremarkable except as noted in HPI & below Physical Exam Constitutional: WD/WN, vitals as above Eyes: PERRL, conjunctivae normal, anicteric sclerae ENMT: external ear and nose normal, oropharynx normal Neck: trachea midline, no thyromegaly Respiratory: normal respiratory effort, lungs clear to auscultation Cardiovascular: Rate/Rhythm: + irregularly irregular Heart Sounds: + murmur (systolic ejection murmur ) Musculoskeletal: Head/Neck/Chest: normocephalic and head atraumatic Skin: no rashes, warm and dry Neurologic: moves all extremities Psychiatric: A+Ox3, euthymic affect Results & Data Results & Data ([facility]) Vital Signs (Past 12 Hours) Vital Signs Temp Pulse Pulse Resp BP Pulse Ox O2 Del Method 03/22/22 16:12 58 L 03/22/22 15:35 36.6 C 83 18 153/78 H 98 Room Air 03/22/22 08:15 Room Air 03/22/22 07:10 36.9 C 75 18 144/84 H 97 Room Air PG Care Time/CCT Total # of Minutes Spent Total Time Spent with Patient: Total time spent is greater than 50% in coordination of care (as documented) at patient's floor/unit and/or counseling patient: Coding Level of Care Code 81040 Subseq Hosp Care Lvl 2 Diagnoses Hypoxia R09.02 MRSA bacteremia R78.81; B95.62 Chronic kidney disease (CKD) N18.9 Pruritus L29.9 Elevated troponin R77.8 Acute leg pain M79.606 Laterality: unspecified laterality Anemia D64.9 Anemia type: unspecified type Cirrhosis K74.60 Chronic heart failure with preserved ejection fraction (HFpEF) I50.32 Hyperlipidemia E78.5 History of gout Z87.39 Depression with anxiety F41.8 Cerebrovascular disease I67.9 Atrial fibrillation I48.91 Atrial fibrillation type: unspecified Obstructive sleep apnea G47.33 Hypothyroidism E03.9 Hypothyroidism type: unspecified COPD (chronic obstructive pulmonary disease) J44.9 GERD (gastroesophageal reflux disease) K21.9 Esophagitis presence: esophagitis presence not specified Diabetes mellitus, type II E11.9 Hypertension I10 (1) Acute leg pain Laterality: unspecified laterality Qualified Code(s): M79.606 - Pain in leg, unspecified (2) Anemia Anemia type: unspecified type Qualified Code(s): D64.9 - Anemia, unspecified (3) Atrial fibrillation Atrial fibrillation type: unspecified Qualified Code(s): I48.91 - Unspecified atrial fibrillation (4) Hypothyroidism Hypothyroidism type: unspecified Qualified Code(s): E03.9 - Hypothyroidism, unspecified (5) GERD (gastroesophageal reflux disease) Esophagitis presence: esophagitis presence not specified Qualified Code(s): K21.9 - Gastro-esophageal reflux disease without esophagitis
[2022-03-22] MEDS: EUCERIN CR 120 GM JAR EXT PRN (16:35)
[2022-03-22] MEDS: ACETAMINOPHEN 325 MG TAB PO PRN (17:54)
[2022-03-22] MEDS: HYDROCORTISONE 1% CRM 30 GM TUBE EXT PRN (17:55)
[2022-03-22] MEDS: MIRTAZAPINE TAB 15 MG TAB PO SCH (21:32)
[2022-03-22] MEDS: amLODIPine BESYLATE 5 MG TAB PO SCH (21:33)
[2022-03-23] MEDS: LEVOTHYROXINE SODIUM 50 MCG TABLET PO SCH (05:31)
[2022-03-23 08:45] LABS: BUN Creatinine Ratio 41.8 (10-20); Calcium 8.5 mg/dl (8.5-10.1); Creatinine Clr Calc Pharmacy 18.5 ml/min; Est GFR (African American) 31.3 ml/min
[2022-03-23] MEDS: BUMETANIDE 1 MG TAB PO SCH ×2 (09:40→15:39)
[2022-03-23] MEDS: allopurinoL 300 MG TAB PO SCH (09:40)
[2022-03-23] MEDS: APIXABAN 2.5 MG TAB PO SCH ×2 (09:40→20:22)
[2022-03-23] MEDS: MAGNESIUM OXIDE 400 MG TAB PO SCH ×2 (09:43→20:22)
[2022-03-23] MEDS: ISOSORBIDE MONO EXTENDED REL 30 MG TABCR PO SCH (09:43)
[2022-03-23] MEDS: CLOPIDOGREL BISULFATE 75 MG TAB PO SCH (09:43)
[2022-03-23] MEDS: DULoxetine HCL 30 MG CAP PO SCH (09:43)
[2022-03-23] MEDS: METOPROLOL SUCC 50MG EXT REL TAB PO SCH ×2 (09:43→20:22)
[2022-03-23] MEDS: PANTOprazole 40 MG TAB PO SCH (09:43)
[2022-03-23] MEDS: POTASSIUM CHLORIDE CRTAB 20 MEQ TABCR PO SCH ×2 (09:43→20:21)
[2022-03-23] MEDS: IRON POLYSACCHARIDE COMPLEX 150 MG CAPSULE PO SCH (09:43)
[2022-03-23] MEDS: CHOLECALCIFEROL 1,000 UNITS 25 MCG TAB PO SCH (09:44)
[2022-03-23] MEDS: DULoxetine HCL 60 MG CAP PO SCH (09:44)
--- NOTE | 2022-03-23 10:24 | Hospitalist Progress Note ---
Date of Service March 23, 2022 Assessment & Plan (1) Hypoxia: Plan: Mrs. Porter is an 87 yo woman with a PMHx of COPD who was admitted for hypoxic respiratory failure. - now resolved - Was felt to be COPD exacerbation (2) MRSA bacteremia: Plan: - Blood cultures 03/17/22: 1 of 4 growing MRSA - patient was started on renally dosed vancomycin - Repeat blood cultures 03/21/22 showing no growth through 24 hours (these were drawn after the vanco was initiated) - As for a possible source: CXR showed no evidence of focal consolidations which would be consistent with a PNA. UA negative. No diarrhea. Furthermore, her WBC on admission was normal, as was the procal. - No hardware in her body; has never had hip replacement or any cardiac procedures except for coronary stenting post MA - TTE showing no vegetations on valves - This case was discussed with ID Dr Richards by Dr. Styles; ID recommended keep the current course- Dr. Styles is planning to formally consult ID on Thursday03/24/22 - May need LUNA; I did discuss with Dr. Reveles on 03/22/22 - these procedures can only be done M-F (not over the weekend). However, I am strongly suspicious this one positive blood culture is a contaminant. TEEs are not indicated simply for gram + blood cultures - they are only indicated when there is clinical suspicion for endocarditis. 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 Careful consideration should be used before pursuing LUNA in this case. With regard to the Cardona criteria, there are no pathologic criteria or major criteria for endocarditis. Only one minor criteria is met. (3) Chronic kidney disease (CKD): Plan: - ARF on CKD stage III on home dose of Bumex but p.o. intake probably not as good. - Cr today at 1.70, down from 1.90. approximately back to baseline. - Metoprolol 150 twice daily ongoing; amlodipine was added as well earlier in hospital course for HTN - previous documentation noted that home lisinopril dose was being held due to ARF on CKD - however upon my review of her home medication list, lisinopril is not on it; furthermore it is listed as an allergy (4) Pruritus: Plan: No rash. 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 It is causing significant distress and anxiety. Antihistamines like Benadryl are not effective for chronic pruritus because it is not histamine release mediated. Advised to stop using Dial soap and use something mild like Dove. Given instructions to use only creams out of jars which are more effective and to buy Eucerin to apply immediately after shower and repeat during the day. Avoid hot showers. After applying Eucerin to her arms and legs and back the patient 's symptoms improved . (5) Elevated troponin: Plan: No evidence of acute coronary syndrome. Telemetry atrial fibrillation with controlled rate. Telemetry discontinued. We will follow (6) Acute leg pain: Plan: - Patient noting right leg pain in the posterior knee and anterior tibia. - No acute trauma or significant swelling compared to the LLE. - Right leg venous Doppler negative for DVT. - Fall precautions ordered - PO Tylenol, Topical Voltaren gel ordered prn - Recommend PO NSAID use given concurrent Eliquis and Plavix use. Could try IV Tylenol overnight if pain escalates in an effort to avoid tramadol or narcotic. (7) Anemia: Plan: Noted to be multifactorial on previous admissions. No overt GI bleeding. Will follow (8) Cirrhosis: Plan: Currently stable. Continue current management Etiology unclear-and a diagnosis before admission (9) Chronic heart failure with preserved ejection fraction (HFpEF): Plan: BNP chronically elevated. This is chronic with no acute exacerbation at this time. Continue current medical management. Monitor intake and output. (10) Hyperlipidemia: Plan: - Continue statin. Low-cholesterol diet (11) History of gout: Plan: - Continue allopurinol (12) Depression with anxiety: Plan: - Continue duloxetine and HS remeron (13) Cerebrovascular disease: Plan: - Continue plavix in addition to Eliquis, which certainly places her at an elevated bleeding risk (14) Atrial fibrillation: Plan: - Rate controlled with current medical management. Continue Eliquis, metoprolol, Digoxin (15) Obstructive sleep apnea: Plan: - HS CPAP ordered. Stable (16) Hypothyroidism: Plan: - Continue levothyroxine . Stable (17) COPD (chronic obstructive pulmonary disease): Plan: - Admitted with acute exacerbation. Now approaching baseline. Continue current medical management. (18) GERD (gastroesophageal reflux disease): Plan: - Continue pantoprazole (19) Diabetes mellitus, type II: Plan: - A1c was > 9 in 12/2021 - Most recent A1c was 5.1, well below goal - her home Lantus has been discontinued - we can stop her Novolog as well - She likley needs a oral medication to go home with - consider metformin (not listed as an allergy) vs. SGLT2i for additional CAD benefit (20) Hypertension: Plan: - Stable with current medical management of bumex, amlodipine and metoprolol Diet: Heart Healthy, Carb Consistent DVT ppx: On Eliquis Dispo: Med/Surg -- she is currently at a personal custodial. Code: DNR/DNI Admission and Anticipated Discharge Date Admission Date: March 17, 2022 Subjective no acute events overnight. Patient feeling much better today compared to yesterday Review of Systems Review of Systems: All systems reviewed & are unremarkable except as noted in HPI & below Physical Exam Constitutional: WD/WN, vitals as above Eyes: PERRL, conjunctivae normal, anicteric sclerae ENMT: external ear and nose normal, oropharynx normal Neck: trachea midline, no thyromegaly Respiratory: normal respiratory effort, lungs clear to auscultation Cardiovascular: Rate/Rhythm: + irregularly irregular Heart Sounds: + murmur (systolic ejection murmur ) Musculoskeletal: Head/Neck/Chest: normocephalic and head atraumatic Skin: no rashes, warm and dry Neurologic: moves all extremities Psychiatric: A+Ox3, euthymic affect Results & Data Results & Data ([facility]) Vital Signs (Past 12 Hours) Vital Signs Temp Pulse Resp BP Pulse Ox O2 Del Method 03/23/22 07:37 36.3 C L 64 16 170/88 H 93 Room Air PG Care Time/CCT Total # of Minutes Spent Total Time Spent with Patient: Total time spent is greater than 50% in coordination of care (as documented) at patient's floor/unit and/or counseling patient: Coding Level of Care Code 34188 Subseq Hosp Care Lvl 1 Diagnoses Hypoxia R09.02 MRSA bacteremia R78.81; B95.62 Chronic kidney disease (CKD) N18.9 Pruritus L29.9 Elevated troponin R77.8 Acute leg pain M79.606 Laterality: unspecified laterality Anemia D64.9 Anemia type: unspecified type Cirrhosis K74.60 Chronic heart failure with preserved ejection fraction (HFpEF) I50.32 Hyperlipidemia E78.5 History of gout Z87.39 Depression with anxiety F41.8 Cerebrovascular disease I67.9 Atrial fibrillation I48.91 Atrial fibrillation type: unspecified Obstructive sleep apnea G47.33 Hypothyroidism E03.9 Hypothyroidism type: unspecified COPD (chronic obstructive pulmonary disease) J44.9 GERD (gastroesophageal reflux disease) K21.9 Esophagitis presence: esophagitis presence not specified Diabetes mellitus, type II E11.9 Hypertension I10 (1) Acute leg pain Laterality: unspecified laterality Qualified Code(s): M79.606 - Pain in leg, unspecified (2) Anemia Anemia type: unspecified type Qualified Code(s): D64.9 - Anemia, unspecified (3) Atrial fibrillation Atrial fibrillation type: unspecified Qualified Code(s): I48.91 - Unspecified atrial fibrillation (4) Hypothyroidism Hypothyroidism type: unspecified Qualified Code(s): E03.9 - Hypothyroidism, unspecified (5) GERD (gastroesophageal reflux disease) Esophagitis presence: esophagitis presence not specified Qualified Code(s): K21.9 - Gastro-esophageal reflux disease without esophagitis
[2022-03-23] MEDS: VANCOMYCIN HCL 750 MG in SODIUM CHLORIDE 0.9% 250 ML IV SCH (12:23)
[2022-03-23] MEDS: BENZONATATE 100 MG CAPSULE PO PRN (15:36)
[2022-03-23] MEDS: INSULIN ASPART PER UNIT SC SCH (16:30)
[2022-03-23] MEDS: MIRTAZAPINE TAB 15 MG TAB PO SCH (20:22)
[2022-03-23] MEDS: amLODIPine BESYLATE 5 MG TAB PO SCH (20:23)
[2022-03-23] MEDS: ACETAMINOPHEN 325 MG TAB PO PRN (20:23)
[2022-03-23] MEDS: DICLOFENAC SOD 1% GEL 100 GM TUBE EXT PRN (20:26)
[2022-03-24] MEDS: BENZONATATE 100 MG CAPSULE PO PRN ×3 (02:09→20:21)
[2022-03-24] MEDS: ACETAMINOPHEN 325 MG TAB PO PRN (02:09)
[2022-03-24] MEDS: DICLOFENAC SOD 1% GEL 100 GM TUBE EXT PRN (02:11)
[2022-03-24] MEDS: LEVOTHYROXINE SODIUM 50 MCG TABLET PO SCH (05:36)
[2022-03-24] MEDS: IRON POLYSACCHARIDE COMPLEX 150 MG CAPSULE PO SCH (07:27)
[2022-03-24] MEDS: CLOPIDOGREL BISULFATE 75 MG TAB PO SCH (07:27)
[2022-03-24] MEDS: DULoxetine HCL 30 MG CAP PO SCH (07:27)
[2022-03-24] MEDS: CHOLECALCIFEROL 1,000 UNITS 25 MCG TAB PO SCH (07:27)
[2022-03-24] MEDS: ISOSORBIDE MONO EXTENDED REL 30 MG TABCR PO SCH (07:27)
[2022-03-24] MEDS: DULoxetine HCL 60 MG CAP PO SCH (07:27)
[2022-03-24] MEDS: POTASSIUM CHLORIDE CRTAB 20 MEQ TABCR PO SCH ×2 (07:27→20:21)
[2022-03-24] MEDS: allopurinoL 300 MG TAB PO SCH (07:27)
[2022-03-24] MEDS: BUMETANIDE 1 MG TAB PO SCH ×2 (07:27→17:25)
[2022-03-24] MEDS: MAGNESIUM OXIDE 400 MG TAB PO SCH ×2 (07:28→20:13)
[2022-03-24] MEDS: PANTOprazole 40 MG TAB PO SCH (07:28)
[2022-03-24] MEDS: METOPROLOL SUCC 50MG EXT REL TAB PO SCH ×2 (07:28→20:14)
[2022-03-24] MEDS: APIXABAN 2.5 MG TAB PO SCH ×2 (07:29→20:14)
[2022-03-24 09:19] LABS: Creatinine Clr Calc Pharmacy 18.8 ml/min; Est GFR (Non-African American) 27.6 ml/min
[2022-03-24] MEDS: VANCOMYCIN HCL 750 MG in SODIUM CHLORIDE 0.9% 250 ML IV SCH (11:35)
--- NOTE | 2022-03-24 13:24 | Infectious Disease Consult ---
Date of Consultation March 24, 2022 Assessment & Plan (1) MRSA bacteremia: (2) CKD (chronic kidney disease): (3) Pruritus: (4) COPD exacerbation: Plan This is an 86 year old female with pmh of cad, diastolic HF, Atrial fibrillation on Eliquis, CKD, hypothyroidism, dm2, cirrhosis with severe skin itching , vascular insufficiency who presents to the ED on 03/17/22 with increased shortness of breath adn RLE pain. Shortness of breath is worse with exertion and associated with a dry cough. She lives in assisted living but denies any known sick contacts. She denies productive cough, fever, chills, nausea, vomiting, chest pain, joint pain, change in urine or bowel habits. recent falls or trauma to skin. She endorses itching her skin and has some scabs secondary to this She was initially found to be in respiratory distress and hypoxic by EMS and placed on cpap. In the Ed, she was afebrile with BP 155/70, RR 40, HR 89 and 100 % 02 sat on CPAP. She was switched to Bipap for comfort and than 4 LNC Labs were noted for a WBc of 9.9 , Cr 1.5, procal 0.09, and negative covid, Influenza, and RSV testing . CXr showed mild central pulmonary vascular congestion. R femur Xray was unremarkable and LE doppler was negative for DVt. She was started on azithromycin/ steroids for possible COPD exacerbation with mild chf component. She was continued on home dose of Bumex. Her respiratory status improved and she was weaned to room air. Her hospital course was c/b 1/ MRSA bacteremia on 03/17. Repeat blood cultures from 03/21 are sterile. She denies hardware, prosthetics but has a sacral stimulator on imaging. A TTE done 03/21 is without valve vegetations Id consulted for evaluation of MRSA bacteremia Micro: BC 03/17 1/ + mrsa MRSA RX M.I.C. --- --------- Clindamycin R >4 Daptomycin S 1 Erythromycin R >4 Oxacillin R >2 Rifampin S <=1 Tetracycline S <=4 Trimeth/Sulfa S <=0.5/9.5 Vancomycin S 2 S = SENSITIVE I = INTERMEDIATE R = Mrsa screen 03/17 and 03/21 positive Bc 03/21 Sterile ABx: azithromycin 03/17-03/21 vancomycin 03/19- current vanco trough 03/20-24.2, random level 03/22 19.6 1. Mrsa bacteremia of unknown etiology possible sources: skin vs endocarditis ( has ? embolic phenomena on right 4th toe) - denies hardware, or prosthetics. However per review of chart she has history of urinary electronic stimulator in place- sacral stimulator seen on pelvis xray done on 02/15/22 - multiple skin disruptions:abrasions, scratched skin, dried wounds, excessive finger nail bitting with dystrophic damaged finger nail beds - left anterior swanson with open wound - mild foul drainage, tender - nicks on toes , but one area with ? splinter hemorrhage - TTE on 03/21 is negative for vegetation,mod- severe TR , mild - mod MR - no joint pain or effusions on exam - no central lines 2. Chronic skin wounds, abrasions 3. Severe finger nail biting 4. Acute hypoxic respiratory failure- resolved cpap-->Bipap---> 4l NC ---> now on RA thought to be 2/2 COPD exacerbation Covid,flu, rsv negative No infiltrated on cxr to suggest bacterial pna Discussion .A possible source for the 04/09 MRSA bacteremia is the skin Staph aureus is part of skin nuha an. 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 She excessively bites her finger nails and has uneven, dsytrophic, uneven nail beds with loosened and missing nails on some fingers. She has multiple dried lesions on lower extremity. There is an area of mild TTP and slight drainage from area of abraded skin on the left anterior calf. There is a bluish discoloration that is blanchable on the plantar side of R great toe, the Left 3rd toe is mildly red and tender to touch. However on the R 4th toe, there is what appears to be a splinter hemorrhage on the nail bed ? indicating possible embolic phenomena. Recommendations Given bacteremia and ? splinter hemorrhage, would pursue LORENA to rule out endocarditis. Discussed with patient Would change IV vancomycin to Daptomycin 8 mg/kg IV daily given renal function and ease of dosing, check CPK Continue wound care, BC cleared as of 03/21 If lorena unremarkable, can consider exploring the sacral stimulator seen on earle retana from 02/15/22. Recommendation d/w team Thank you for allowing me to participate in the care of your patient. ID will continue to follow the patient with you. Rabia Dupont MD, MPH [facility] Consultation Information Consultation was provided via telemedicine using two-way real-time interactive telecommunication between the patient and the telemedicine provider. For the duration of the visit, the provider was performing the assessment from a different facility than the patient. This includesuse of bluetooth stethoscope forauscultationperformed by the telepresenter that the telemedicine provider can hear if described in the physical exam. Tutorial Laboratory Supervisor contact information: Please call [facility] Center . (Phone Number For Physician Use Only) After establishing a telemedicine visit, patient was: Patient/authorized rep acknowledged consent and understanding and Gave permission to continue telehealth session History of Present Illness Reason for Consultation: MRSA bactermia Requesting Physician: Robert Styles MD Attending Physician: Robert Styles MD History of Present Illness This is an 86 year old female with pmh of cad, diastolic HF, Atrial fibrillation on Eliquis, CKD, hypothyroidism, dm2, cirrhosis with severe skin itching , vascular insufficiency who presents to the ED on 03/17/22 with increased shortness of breath adn RLE pain. Shortness of breath is worse with exertion and associated with a dry cough. She lives in assisted living but denies any known sick contacts. She denies productive cough, fever, chills, nausea, vomiting, chest pain, joint pain, change in urine or bowel habits. recent falls or trauma to skin. She endorses itching her skin and has some scabs secondary to this She was initially found to be in respiratory distress and hypoxic by EMS and placed on cpap. In the Ed, she was afebrile with BP 155/70, RR 40, HR 89 and 100 % 02 sat on CPAP. She was switched to Bipap for comfort and than 4 LNC Labs were noted for a WBc of 9.9 , Cr 1.5, procal 0.09, and negative covid, In fluenza, and RSV testing . CXr showed mild central pulmonary vascular congestion. R femur Xray was unremarkable and LE doppler was negative for DVt. She was started on azithromycin/ steroids for possible COPD exacerbation with mild chf component. She was continued on home dose of Bumex. Her respiratory status improved and she was weaned to room air. Her hospital course was c/b 1/ MRSA bacteremia on 03/17. Repeat blood cultures from 03/21 are sterile. She denies hardware, prosthetics but has a sacral stimulator on imaging. A TTE done 03/21 is without valve vegetations Id consulted for evaluation of MRSA bacteremia. Allergies Allergy/AdvReac Type Severity Reaction Status Date / Time shellfish derived Allergy Severe ANAPHYLAXIS Verified 03/13/22 11:20 iodine Allergy Intermediate ANAPHYLAXIS Verified 03/13/22 11:20 lisinopril Allergy Unknown Unknown Verified 03/13/22 11:20 oxybutynin [From Ditropan] Allergy Unknown Unknown Verified 03/13/22 11:20 sertraline [From Zoloft] Allergy Unknown Unknown Verified 03/13/22 11:20 paroxetine AdvReac Mild GI UPSET Verified 03/13/22 11:20 Home Medications Medication Instructions Recorded Confirmed Type cholecalciferol (vitamin D3) 25 2,000 unit PO QAM 05/11/20 03/17/22 History mcg (1,000 unit) tablet (Vitamin D3) polyethylene glycol 3350 17 8.5 g PO DAILY PRN Constipation 01/28/21 03/17/22 History gram/dose oral powder (Miralax) vit C 226 mg-vit E 90 mg-copper 1 cap PO BID 02/01/21 03/17/22 History 0.8 mg-zinc oxide-lutein 5 mg capsule (PreserVision Lutein) allopurinol 100 mg tablet 300 mg PO QAM #90 tabs 12/16/21 03/17/22 Rx (Zyloprim) apixaban 2.5 mg tablet (Eliquis) 2.5 mg PO BID #180 tabs 12/16/21 03/17/22 Rx bumetanide 2 mg tablet 2 mg PO BID #60 tabs 12/16/21 03/17/22 Rx clopidogrel 75 mg tablet (Plavix) 75 mg PO QAM #90 tabs 12/16/21 03/17/22 Rx digoxin 125 mcg (0.125 mg) tablet 125 mcg PO Q2D #15 tabs 12/16/21 03/17/22 Rx (Digitek) duloxetine 30 mg capsule,delayed 30 mg PO QAM #90 caps 12/16/21 03/17/22 Rx release (Cymbalta) duloxetine 60 mg capsule,delayed 60 mg PO QAM #90 caps 12/16/21 03/17/22 Rx release (Cymbalta) isosorbide mononitrate 30 mg 30 mg PO QAM #90 tabs 12/16/21 03/17/22 Rx tablet,extended release 24 hr levothyroxine 50 mcg tablet 50 mcg PO DAILYBB #30 tabs 12/16/21 03/17/22 Rx (Synthroid) magnesium oxide 400 mg PO BID #180 tabs 12/16/21 03/17/22 Rx metoprolol succinate 50 mg 150 mg PO BID #540 tabs 12/16/21 03/17/22 Rx tablet,extended release 24 hr (Toprol XL) mirtazapine 15 mg tablet (Remeron) 15 mg PO HS #30 tabs 12/16/21 03/17/22 Rx pantoprazole 40 mg tablet,delayed 40 mg PO QAM #90 tabs 12/16/21 03/17/22 Rx release (Protonix) polysaccharide iron complex 150 mg 150 mg PO QAM #90 caps 12/16/21 03/17/22 Rx iron capsule (Ferrex) potassium chloride 20 mEq 10 meq PO BID #180 tabs 12/16/21 03/17/22 Rx tablet,extended release (K-Tab) insulin glargine 100 unit/mL (3 28 unit (0.28 mL) subcut HS #15 mL 12/18/21 03/17/22 Rx mL) subcutaneous pen (Lantus Solostar U-100 Insulin) glucagon 1 mg solution for 1 mg subcut Q20M PRN hypoglycemia 01/02/22 03/17/22 Rx injection (Glucagon Emergency Kit) #1 ea nitroglycerin 0.3 mg sublingual 0.3 mg sublingual Q5M PRN Chest 01/17/22 03/17/22 History tablet Pain nystatin 100,000 unit/gram topical 1 applic topical TID 2 weeks #30 01/21/22 03/17/22 Rx cream grams insulin aspart U-100 100 unit/mL 7 - 10 unit (0.07 - 0.1 mL) subcut 02/04/22 03/17/22 Rx (3 mL) subcutaneous pen (Novolog TIDM #45 mL Flexpen U-100 Insulin aspart) clobetasol 0.05 % topical cream 1 applic topical BID #30 grams 02/19/22 03/17/22 Rx guaifenesin 600 mg tablet, 600 mg PO BID PRN cough #60 tabs 03/13/22 03/17/22 Rx extended release 12 hr Patient History Medical History Anemia Asthma Atrial fibrillation CAD (coronary artery disease) Cerebrovascular disease Chronic diastolic congestive heart failure Chronic kidney disease (CKD) Stage III, baseline Cr 1.3-1.5mg/dL. Complicated with normocytic anemia and secondary hyperparathyroidism. Followed by nephrology. 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 Cannot perform MRI due to bladder implant. Followed by pain management. Epidural steroid injections with improvement of pain. Evaluated by ortho, decided against surgery. Managed with gabapentin 300mg TID + APAP PRN + tapentadol 50mg BID PRN GERD (gastroesophageal reflux disease) GIB (gastrointestinal bleeding) History of gout Managed with allopruinol daily. No recent gouty attacks. Uric acid suppressed 3.4 mg/dl (12/22) Hyperlipidemia Secondary prevention with moderate intensity statin (atorvastatin 20mg daily) Hypertension Hypothyroidism Lichen planus Macular degeneration Mitral regurgitation Neurologic gait dysfunction Obstructive sleep apnea Long standing. Managed with CPAP nightly. CPAP titration polysomnography (07/14). Sensorineural hearing loss (SNHL) of both ears Venous insufficiency of both lower extremities Surgical History H/O colonoscopy History of repair of rectocele S/P breast biopsy S/P section S/P cholecystectomy S/P hysterectomy S/P implantation of urinary electronic stimulator device Family History Father , Age 64 No problems noted. Mother , Age 61 No problems noted. Other Coronary heart disease Denies family history of Ovarian cancer Prostate cancer Crohn's disease Breast cancer Lung cancer Colorectal cancer Social History Smoking Status: Never smoker Second Hand Exposure: No; Do You Dip or Chew Tobacco: No; Tobacco Cessation Education Requested by Patient: No Hx Alcohol Use: No Hx Substance Use: No Preferred Language: Urdu Communication Ability: Effective Visual Impairment: No Limitations Hearing Ability: Normal Manufacturing Planner Required: No Beliefs That Will Affect Care: None marital status: Single Current Living Situation: [facility] Current Living Situation Comment: [facility] current occupational status: retired How many Children do You have: 3 Other Information That Helps Us Care for You: No Feels Safe at Home: Yes Safety Concerns: Feels Safe At This Time Childhood Exposure to Second-Hand Smoke: No Diet Comment: DIABETIC caffeine: No during the past year weight has: remained stable Dental Care, Regularly: No Physical Activity Frequency: 1-2 Times per Week Seatbelt Use: always Sunscreen Use: Yes Assistive Devices: Glasses and Walker Review of System .A 14 point ROS was obtained. Pertinent positives as per HPI Physical Exam Constitutional: Awake and alert. No acute distress. Chronically ill appearing, Dry cough. Eyes: PERRL, EOMI ENMT: oral mucosa moist Fair dentition, throat clear Neck: supple Respiratory: Course BS at LL base, diminished BS at right base Cardiovascular: S1 S2 heard, RRR Gastrointestinal (Abdomen): soft, Non tender, not distended, No guarding Musculoskeletal: Moves all extremities. No joint effusions. No spinal tenderness. Skin: scabbed lesion on BL UE BL LE venous stasis changes, , LE chronic dried crusted wounds. RLE crusted wound with surrounding blanchable erythema. Not tender or warm. Left anterior swanson with area of abraded skin , tender to touch, not warm. Mild foul odor , serous drainage. right great toe plantar surface with faint bruise. Several scabs on right toes. R 4th toenail with what appears to be a splinter hemorrhages. Left 3rd toe is mildly red and tender to touch, fingernail on both hands severely bitten , dystrophic appearing nails and dry appeaing cuticles - no evidene of active infection . 2 peripheral line, clean appearing. Neurologic: awake, alert and oriented times 3. Psychiatric: Appropriate, cooperative Results & Data ([place]) Vital Signs (Past 12 Hours) Vital Signs Temp Pulse Resp BP Pulse Ox O2 Del Method 03/24/22 07:31 Room Air 03/24/22 07:23 36.8 C 79 18 154/74 H 94 Room Air Laboratory Results Laboratory Results - last 48 hr 03/23/22 03/24/22 07:11 07:43 Sodium 140 Potassium 4.0 Chloride 97 L Carbon Dioxide 36 H Anion Gap 7 BUN 71 H Creatinine 1.70 H 1.67 H Est Cr Clr Drug Dosing 18.5 18.8 Est GFR ( Amer) 31.3 32.0 Est GFR (Non-Af Amer) 27.0 27.6 BUN/Creatinine Ratio 41.8 H Glucose 231 H Calcium 8.5 03/17/22 14:57 Aerobic Blood Culture - Final Blood Staph aureus MRSA Anaerobic Blood Culture - Final No growth in Anaerobic bottle after 5 days. 03/21/22 15:20 Aerobic Blood Culture - Preliminary Blood No growth in Aerobic bottle after 48 hours. Anaerobic Blood Culture - Final 03/21/22 15:16 Aerobic Blood Culture - Preliminary Blood No growth in Aerobic bottle after 48 hours. Anaerobic Blood Culture - Final Diagnostic Findings Microbiology 03/17/22 14:57 Blood Aerobic Blood Culture - Final Staph aureus MRSA 03/17/22 14:57 Blood Anaerobic Blood Culture - Final No growth in Anaerobic bottle after 5 days. 03/21/22 15:20 Blood Aerobic Blood Culture - Preliminary No growth in Aerobic bottle after 48 hours. 03/21/22 15:20 Blood Anaerobic Blood Culture - Final 03/21/22 15:16 Blood Aerobic Blood Culture - Preliminary No growth in Aerobic bottle after 48 hours. 03/21/22 15:16 Blood Anaerobic Blood Culture - Final 03/17/22 14:59 Blood Aerobic Blood Culture - Final No growth in Aerobic bottle after 5 days. 03/17/22 14:59 Blood Anaerobic Blood Culture - Final left Hip/ Pelvic xray 02/15/22 FINDINGS: No fracture or dislocation within the pelvis or hips. A sacral stimulator device is again noted. Soft tissues are unremarkable. Mild degenerative changes within the bilateral hips. IMPRESSION: No fracture or dislocation within the pelvis or hips. Right Femur xray 03/17/22 - right FINDINGS: A battery pack projects over the right hemipelvis. Is mild to moderate osteoarthritis of the right hip. Demineralized appearance of the bones. No acute fracture, dislocation or avascular necrosis. Pelvic basin phleboliths. Nonspecific lateral soft tissue swelling of the thigh and knee. Osteoarthritis of the right knee without large joint effusion. IMPRESSION: No acute fracture or dislocation. Right LE doppler- 03/17/22 Impression: No evidence of deep venous thrombus CXr MPRESSION: Mild central pulmonary vascular congestion without overt edema. cxr 03/19/22 FINDINGS: Lung volumes are normal. Lungs are clear. There is no pneumothorax or pleural effusion. Minimal right basilar opacity may reflect atelectasis. Cardiomegaly is unchanged. Mediastinal contours are normal. There is no evidence for pulmonary edema. IMPRESSION: No acute cardiopulmonary findings. Medications Administered Home Medications Medication Instructions Recorded Confirmed Last Taken cholecalciferol (vitamin D3) 25 2,000 unit PO QAM 05/11/20 03/17/22 04/22/21 mcg (1,000 unit) tablet (Vitamin D3) polyethylene glycol 3350 17 8.5 g PO DAILY PRN Constipation 01/28/21 03/17/22 Unknown gram/dose oral powder (Miralax) vit C 226 mg-vit E 90 mg-copper 1 cap PO BID 02/01/21 03/17/22 04/22/21 0.8 mg-zinc oxide-lutein 5 mg capsule (PreserVision Lutein) allopurinol 100 mg tablet 300 mg PO QAM #90 tabs 12/16/21 03/17/22 Unknown (Zyloprim) apixaban 2.5 mg tablet (Eliquis) 2.5 mg PO BID #180 tabs 12/16/21 03/17/22 Unknown bumetanide 2 mg tablet 2 mg PO BID #60 tabs 12/16/21 03/17/22 Unknown clopidogrel 75 mg tablet (Plavix) 75 mg PO QAM #90 tabs 12/16/21 03/17/22 Unknown digoxin 125 mcg (0.125 mg) tablet 125 mcg PO Q2D #15 tabs 12/16/21 03/17/22 Unknown (Digitek) duloxetine 30 mg capsule,delayed 30 mg PO QAM #90 caps 12/16/21 03/17/22 Unknown release (Cymbalta) duloxetine 60 mg capsule,delayed 60 mg PO QAM #90 caps 12/16/21 03/17/22 Unknown release (Cymbalta) isosorbide mononitrate 30 mg 30 mg PO QAM #90 tabs 12/16/21 03/17/22 Unknown tablet,extended release 24 hr levothyroxine 50 mcg tablet 50 mcg PO DAILYBB #30 tabs 12/16/21 03/17/22 Unknown (Synthroid) magnesium oxide 400 mg PO BID #180 tabs 12/16/21 03/17/22 Unknown metoprolol succinate 50 mg 150 mg PO BID #540 tabs 12/16/21 03/17/22 Unknown tablet,extended release 24 hr (Toprol XL) mirtazapine 15 mg tablet (Remeron) 15 mg PO HS #30 tabs 12/16/21 03/17/22 Unknown pantoprazole 40 mg tablet,delayed 40 mg PO QAM #90 tabs 12/16/21 03/17/22 Unknown release (Protonix) polysaccharide iron complex 150 mg 150 mg PO QAM #90 caps 12/16/21 03/17/22 Unknown iron capsule (Ferrex) potassium chloride 20 mEq 10 meq PO BID #180 tabs 12/16/21 03/17/22 Unknown tablet,extended release (K-Tab) insulin glargine 100 unit/mL (3 28 unit (0.28 mL) subcut HS #15 mL 12/18/21 03/17/22 Unknown mL) subcutaneous pen (Lantus Solostar U-100 Insulin) glucagon 1 mg solution for 1 mg subcut Q20M PRN hypoglycemia 01/02/22 03/17/22 Unknown injection (Glucagon Emergency Kit) #1 ea nitroglycerin 0.3 mg sublingual 0.3 mg sublingual Q5M PRN Chest 01/17/22 03/17/22 Unknown tablet Pain nystatin 100,000 unit/gram topical 1 applic topical TID 2 weeks #30 01/21/22 03/17/22 Unknown cream grams insulin aspart U-100 100 unit/mL 7 - 10 unit (0.07 - 0.1 mL) subcut 02/04/22 03/17/22 Unknown (3 mL) subcutaneous pen (Novolog TIDM #45 mL Flexpen U-100 Insulin aspart) clobetasol 0.05 % topical cream 1 applic topical BID #30 grams 02/19/22 03/17/22 Unknown guaifenesin 600 mg tablet, 600 mg PO BID PRN cough #60 tabs 03/13/22 03/17/22 Unknown extended release 12 hr Active Medications Generic Name Dose Route Start Last Admin Trade Name Freq PRN Reason Stop Dose Admin Acetaminophen 650 mg 03/17/22 19:19 03/24/22 02:09 Acetaminophen 325 Mg Tab PO 04/16/22 19:18 650 mg Q4H PRN Administration Pain (1,2,3) Or Fever Allopurinol 300 mg 03/18/22 09:00 03/24/22 07:27 Allopurinol 300 Mg Tab PO 04/17/22 08:59 300 mg QAM RODDY Administration Apixaban 2.5 mg 03/17/22 21:00 03/24/22 07:29 Apixaban 2.5 Mg Tab PO 04/16/22 20:59 2.5 mg BID RODDY Administration Benzonatate 100 mg 03/19/22 00:26 03/24/22 07:27 Benzonatate 100 Mg Capsule PO 04/18/22 00:25 100 mg TID PRN Administration Cough Bumetanide 2 mg 03/17/22 19:45 03/24/22 17:25 Bumetanide 1 Mg Tab PO 04/16/22 19:44 2 mg BID17 RODDY Administration Clopidogrel Bisulfate 75 mg 03/18/22 09:00 03/24/22 07:27 Clopidogrel Bisulfate 75 Mg Tab PO 04/17/22 08:59 75 mg QAM RODDY Administration Diclofenac Sodium 2 gm 03/22/22 17:26 03/24/22 02:11 Diclofenac Sod 1% Gel 100 Gm Tube EXT 04/21/22 17:25 2 gm Q4H PRN Administration Pain Protocol Digoxin 0.125 mg 03/18/22 16:00 03/24/22 17:25 Digoxin 0.125 Mg Tab PO 04/17/22 15:59 0.125 mg Q2D@1600 RODDY Administration Diphenhydramine HCl 50 mg 03/18/22 12:34 03/20/22 05:46 Diphenhydramine Capsule 25 Mg Cap PO 04/17/22 12:33 50 mg Q6H PRN Administration Itching Duloxetine HCl 60 mg 03/18/22 09:00 03/24/22 07:27 Duloxetine Hcl 60 Mg Cap PO 04/17/22 08:59 60 mg QAM RODDY Administration Duloxetine HCl 30 mg 03/18/22 09:00 03/24/22 07:27 Duloxetine Hcl 30 Mg Cap PO 04/17/22 08:59 30 mg QAM RODDY Administration Guaifenesin 600 mg 03/17/22 19:19 03/20/22 08:03 Guaifenesin 600 Mg Tabcr PO 04/16/22 19:18 600 mg BID PRN Administration cough Hydrocortisone 1 appln 03/20/22 03:10 03/22/22 17:55 Hydrocortisone 1% Crm 30 Gm Tube EXT 04/19/22 03:09 1 appln BID PRN Administration rash or itching Vancomycin HCl 750 mg/ Sodium 265 mls @ 200 mls/hr 03/21/22 12:00 03/24/22 13:03 Chloride IV 04/02/22 11:59 Infused Q24H RODDY Infusion Protocol Isosorbide Mononitrate 30 mg 03/18/22 09:00 03/24/22 07:27 Isosorbide Hill Extended Rel 30 Mg Tabcr PO 04/17/22 08:59 30 mg QAM RODDY Administration Levothyroxine Sodium 50 mcg 03/18/22 06:30 03/24/22 05:36 Levothyroxine Sodium 50 Mcg Tablet PO 04/17/22 06:29 50 mcg DAILYBB RODDY Administration Magnesium Oxide 400 mg 03/17/22 21:00 03/24/22 07:28 Magnesium Oxide 400 Mg Tab PO 04/16/22 20:59 400 mg BID RODDY Administration Metoprolol Succinate 150 mg 03/17/22 21:00 03/24/22 07:28 Metoprolol Succ 50mg Ext Rel Tab PO 04/16/22 20:59 150 mg BID RODDY Administration Mirtazapine 15 mg 03/17/22 21:00 03/23/22 20:22 Mirtazapine Tab 15 Mg Tab PO 04/16/22 20:59 15 mg HS RODDY Administration Multi-Ingredient Cream 1 appln 03/20/22 10:14 03/22/22 16:35 Eucerin Cr 120 Gm Jar EXT 04/19/22 10:13 1 appln [id number] PRN Administration Itching Pantoprazole Sodium 40 mg 03/18/22 09:00 03/24/22 07:28 Pantoprazole 40 Mg Tab PO 04/17/22 08:59 40 mg QAM RODDY Administration Polysaccharide Iron Complex 150 mg 03/18/22 09:00 03/24/22 07:27 Iron Polysaccharide Complex 150 Mg Capsule PO 04/17/22 08:59 150 mg QAM RODDY Administration Potassium Chloride 20 meq 03/19/22 21:00 03/24/22 07:27 Potassium Chloride Crtab 20 Meq Tabcr PO 04/18/22 20:59 20 meq BID RODDY Administration Vitamin D 2,000 units 03/18/22 09:00 03/24/22 07:27 Cholecalciferol 1,000 Units 25 Mcg Tab PO 04/17/22 08:59 2,000 units QAM RODDY Administration (1) CKD (chronic kidney disease) Chronic kidney disease stage: unspecified stage Qualified Code(s): N18.9 - Chronic kidney disease, unspecified
[2022-03-24] MEDS: DIGOXIN 0.125 MG TAB PO SCH (17:25)
[2022-03-24] MEDS: MIRTAZAPINE TAB 15 MG TAB PO SCH (20:13)
[2022-03-24] MEDS: amLODIPine BESYLATE 5 MG TAB PO SCH (20:14)
--- NOTE | 2022-03-24 20:25 | Hospitalist Progress Note ---
Date of Service March 24, 2022 Assessment & Plan (1) MRSA bacteremia: Plan: On vancomycin and blood cultures repeated today. Only 1 of 8 blood cultures positive for MRSA tte -no vegetations No hardware in her body. Discussed with ID Dr Dupont-he suspects possible skin source because the patient scratches himself continually LUNA planned in the morning Patient has never had hip replacement or any cardiac procedures except for coronary stenting post MS (2) Hypoxia: Plan: Acute hypoxic respiratory failure has now resolved. She is stable on room air. Was felt to be COPD exacerbation. Now resolved and baseline (3) Chronic kidney disease (CKD): Plan: ARF on CKD stage IIIon home dose of Bumex but p.o. intake probably not as good. Check CMP in the morning. Home lisinopril being held. Metoprolol 150 twice daily ongoing. Amlodipine 10 mg at bedtime started here. Creatinine 36 yesterday. Check BMP morning Vanco dosing being adjusted by pharmacy and that is appreciated (4) Pruritus: Plan: No rash. 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 It is causing significant distress and anxiety. Antihistamines like Benadryl are not effective for chronic pruritus because it is not histamine release mediated. Advised to stop using Dial soap and use something mild like Dove. Given instructions to use only creams out of jars which are more effective and to buy Eucerin to apply immediately after shower and repeat during the day. Jose id hot showers. After applying Eucerin to her arms and legs and back the patient 's symptoms improved . (5) Elevated troponin: Plan: No evidence of acute coronary syndrome. Telemetry atrial fibrillation with controlled rate. Telemetry discontinued. We will follow (6) Acute leg pain: Plan: Not mentioned last 2 days (7) Anemia: Plan: Noted to be multifactorial on previous admissions. No overt GI bleeding. Will follow am (8) Cirrhosis: Plan: Currently stable. Continue current management Etiology unclear-and a diagnosis before admission (9) Chronic heart failure with preserved ejection fraction (HFpEF): Plan: BNP chronically elevated. This is chronic with no acute exacerbation at this time. Continue current medical management. Monitor intake and output. History of CAD stash on isosorbide (10) Hyperlipidemia: Plan: Continue statin . Low-cholesterol diet (11) History of gout: Plan: Contihnue allopurinol (12) Depression with anxiety: Plan: Continue duloxetine and HS remeron (13) Cerebrovascular disease: Plan: Continue plavix (14) Atrial fibrillation: Plan: Rate controlled with current medical management. Continue Eliquis, metoprolol, Digoxin (15) Obstructive sleep apnea: Plan: HS CPAP ordered. Stable (16) Hypothyroidism: Plan: Continue levothyroxine . Stable (17) COPD (chronic obstructive pulmonary disease): Plan: Admitted with acute exacerbation. Now approaching baseline. Continue current medical management. (18) GERD (gastroesophageal reflux disease): Plan: Continue pantoprazole (19) Diabetes mellitus, type II: Plan: She had developed hypoglycemia. Lantus has been discontinued. (20) Hypertension: Plan: Stable with current medical management Plan Was ready for discharge today but there was no ride available to pick her up. Expect discharge tomorrow with final ID of ana in clusters 04/09 available Admission and Anticipated Discharge Date Admission Date: March 17, 2022 Subjective at 1650 h, patient was almost tearful about not being discharged. Chronic cough. No new complaints. Says she is itching a lot. Nursing reports she gets very anxious and walking to the bathroom and her oxygen saturations remain fine and she hyperventilates Eating well feels weak. No chest pain or shortness of breath Physical Exam Physical Exam: Alert pleasant overweight lady, sitting in bed, lucid historian , tells me she is getting in a echocardiogram tomorrow to look for the source ofMRSA Head and neck moist tongue Normal insight and judgment Chest clear to auscultation CVS S1-S2 systolic ejection murmur grade 2 [employer] gait not observed, able to sit up on the side of the bed quite rapidly on her own Skin dry lower extremities, multiple scabs over arms and legs, both hands nails are very short with ragged edges (I bite my nails) No petechiae over nails Abdomen slightly distended nontender Results & Data Results & Data ([facility]) Vital Signs (Past 12 Hours) Vital Signs Temp Pulse Pulse Resp BP Pulse Ox O2 Del Method 03/24/22 17:25 81 03/24/22 15:29 36.6 C 90 16 120/59 L 94 Room Air 03/24/22 13:53 93 Laboratory Results 03/17/22 14:57 Aerobic Blood Culture - Final Blood Staph aureus MRSA Anaerobic Blood Culture - Final No growth in Anaerobic bottle after 5 days. 03/21/22 15:20 Aerobic Blood Culture - Preliminary Blood No growth in Aerobic bottle after 48 hours. Anaerobic Blood Culture - Final 03/21/22 15:16 Aerobic Blood Culture - Preliminary Blood No growth in Aerobic bottle after 48 hours. Anaerobic Blood Culture - Final 03/24/22 07:43 Creatinine 1.67 H Est Cr Clr Drug Dosing 18.8 Est GFR ( Amer) 32.0 Est GFR (Non-Af Amer) 27.6 Medications Administered Home Medications Medication Instructions Recorded Confirmed Last Taken cholecalciferol (vitamin D3) 25 2,000 unit PO QAM 05/11/20 03/17/22 04/22/21 mcg (1,000 unit) tablet (Vitamin D3) polyethylene glycol 3350 17 8.5 g PO DAILY PRN Constipation 01/28/21 03/17/22 Unknown gram/dose oral powder (Miralax) vit C 226 mg-vit E 90 mg-copper 1 cap PO BID 02/01/21 03/17/22 04/22/21 0.8 mg-zinc oxide-lutein 5 mg capsule (PreserVision Lutein) allopurinol 100 mg tablet 300 mg PO QAM #90 tabs 12/16/21 03/17/22 Unknown (Zyloprim) apixaban 2.5 mg tablet (Eliquis) 2.5 mg PO BID #180 tabs 12/16/21 03/17/22 Unknown bumetanide 2 mg tablet 2 mg PO BID #60 tabs 12/16/21 03/17/22 Unknown clopidogrel 75 mg tablet (Plavix) 75 mg PO QAM #90 tabs 12/16/21 03/17/22 Unknown digoxin 125 mcg (0.125 mg) tablet 125 mcg PO Q2D #15 tabs 12/16/21 03/17/22 Unknown (Digitek) duloxetine 30 mg capsule,delayed 30 mg PO QAM #90 caps 12/16/21 03/17/22 Unknown release (Cymbalta) duloxetine 60 mg capsule,delayed 60 mg PO QAM #90 caps 12/16/21 03/17/22 Unknown release (Cymbalta) isosorbide mononitrate 30 mg 30 mg PO QAM #90 tabs 22 03/17/22 Unknown tablet,extended release 24 hr levothyroxine 50 mcg tablet 50 mcg PO DAILYBB #30 tabs 12/16/21 03/17/22 Unknown (Synthroid) magnesium oxide 400 mg PO BID #180 tabs 12/16/21 03/17/22 Unknown metoprolol succinate 50 mg 150 mg PO BID #540 tabs 12/16/21 03/17/22 Unknown tablet,extended release 24 hr (Toprol XL) mirtazapine 15 mg tablet (Remeron) 15 mg PO HS #30 tabs 12/16/21 03/17/22 Unknown pantoprazole 40 mg tablet,delayed 40 mg PO QAM #90 tabs 12/16/21 03/17/22 Unknown release (Protonix) polysaccharide iron complex 150 mg 150 mg PO QAM #90 caps 12/16/21 03/17/22 Unknown iron capsule (Ferrex) potassium chloride 20 mEq 10 meq PO BID #180 tabs 12/16/21 03/17/22 Unknown tablet,extended release (K-Tab) insulin glargine 100 unit/mL (3 28 unit (0.28 mL) subcut HS #15 mL 12/18/21 03/17/22 Unknown mL) subcutaneous pen (Lantus Solostar U-100 Insulin) glucagon 1 mg solution for 1 mg subcut Q20M PRN hypoglycemia 01/02/22 03/17/22 Unknown injection (Glucagon Emergency Kit) #1 ea nitroglycerin 0.3 mg sublingual 0.3 mg sublingual Q5M PRN Chest 01/17/22 03/17/22 Unknown tablet Pain nystatin 100,000 unit/gram topical 1 applic topical TID 2 weeks #30 01/21/22 03/17/22 Unknown cream grams insulin aspart U-100 100 unit/mL 7 - 10 unit (0.07 - 0.1 mL) subcut 02/04/22 03/17/22 Unknown (3 mL) subcutaneous pen (Novolog TIDM #45 mL Flexpen U-100 Insulin aspart) clobetasol 0.05 % topical cream 1 applic topical BID #30 grams 02/19/22 03/17/22 Unknown guaifenesin 600 mg tablet, 600 mg PO BID PRN cough #60 tabs 03/13/22 03/17/22 Unknown extended release 12 hr Active Medications Generic Name Dose Route Start Last Admin Trade Name Freq PRN Reason Stop Dose Admin Acetaminophen 650 mg 03/17/22 19:19 03/24/22 02:09 Acetaminophen 325 Mg Tab PO 04/16/22 19:18 650 mg Q4H PRN Administration Pain (1,2,3) Or Fever Allopurinol 300 mg 03/18/22 09:00 03/24/22 07:27 Allopurinol 300 Mg Tab PO 04/17/22 08:59 300 mg QAM RODDY Administration Amlodipine Besylate 10 mg 03/24/22 21:00 03/24/22 20:14 Amlodipine Besylate 5 Mg Tab PO 04/23/22 20:59 10 mg HS RODDY Administration Apixaban 2.5 mg 03/17/22 21:00 03/24/22 20:14 Apixaban 2.5 Mg Tab PO 04/16/22 20:59 2.5 mg BID RODDY Administration Benzonatate 100 mg 03/19/22 00:26 03/24/22 07:27 Benzonatate 100 Mg Capsule PO 04/18/22 00:25 100 mg TID PRN Administration Cough Bumetanide 2 mg 03/17/22 19:45 03/24/22 17:25 Bumetanide 1 Mg Tab PO 04/16/22 19:44 2 mg BID17 RODDY Administration Clopidogrel Bisulfate 75 mg 03/18/22 09:00 03/24/22 07:27 Clopidogrel Bisulfate 75 Mg Tab PO 04/17/22 08:59 75 mg QAM RODDY Administration Diclofenac Sodium 2 gm 03/22/22 17:26 03/24/22 02:11 Diclofenac Sod 1% Gel 100 Gm Tube EXT 04/21/22 17:25 2 gm Q4H PRN Administration Pain Protocol Digoxin 0.125 mg 03/18/22 16:00 03/24/22 17:25 Digoxin 0.125 Mg Tab PO 04/17/22 15:59 0.125 mg Q2D@1600 RODDY Administration Diphenhydramine HCl 50 mg 03/18/22 12:34 03/20/22 05:46 Diphenhydramine Capsule 25 Mg Cap PO 04/17/22 12:33 50 mg Q6H PRN Administration Itching Duloxetine HCl 60 mg 03/18/22 09:00 03/24/22 07:27 Duloxetine Hcl 60 Mg Cap PO 04/17/22 08:59 60 mg QAM RODDY Administration Duloxetine HCl 30 mg 03/18/22 09:00 03/24/22 07:27 Duloxetine Hcl 30 Mg Cap PO 04/17/22 08:59 30 mg QAM RODDY Administration Guaifenesin 600 mg 03/17/22 19:19 03/20/22 08:03 Guaifenesin 600 Mg Tabcr PO 04/16/22 19:18 600 mg BID PRN Administration cough Hydrocortisone 1 appln 03/20/22 03:10 03/22/22 17:55 Hydrocortisone 1% Crm 30 Gm Tube EXT 04/19/22 03:09 1 appln BID PRN Administration rash or itching Vancomycin HCl 750 mg/ Sodium 265 mls @ 200 mls/hr 03/21/22 12:00 03/24/22 13:03 Chloride IV 04/02/22 11:59 Infused Q24H RODDY Infusion Protocol Isosorbide Mononitrate 30 mg 03/18/22 09:00 03/24/22 07:27 Isosorbide [place]lin Extended Rel 30 Mg Tabcr PO 04/17/22 08:59 30 mg QAM RODDY Administration Levothyroxine Sodium 50 mcg 03/18/22 06:30 03/24/22 05:36 Levothyroxine Sodium 50 Mcg Tablet PO 04/17/22 06:29 50 mcg DAILYBB RODDY Administration Magnesium Oxide 400 mg 03/17/22 21:00 03/24/22 20:13 Magnesium Oxide 400 Mg Tab PO 04/16/22 20:59 400 mg BID RODDY Administration Metoprolol Succinate 150 mg 03/17/22 21:00 03/24/22 20:14 Metoprolol Succ 50mg Ext Rel Tab PO 04/16/22 20:59 150 mg BID RODDY Administration Mirtazapine 15 mg 03/17/22 21:00 03/24/22 20:13 Mirtazapine Tab 15 Mg Tab PO 04/16/22 20:59 15 mg HS RODDY Administration Multi-Ingredient Cream 1 appln 03/20/22 10:14 03/22/22 16:35 Eucerin Cr 120 Gm Jar EXT 04/19/22 10:13 1 appln [id number] PRN Administration Itching Pantoprazole Sodium 40 mg 03/18/22 09:00 03/24/22 07:28 Pantoprazole 40 Mg Tab PO 04/17/22 08:59 40 mg QAM RODDY Administration Polysaccharide Iron Complex 150 mg 03/18/22 09:00 03/24/22 07:27 Iron Polysaccharide Complex 150 Mg Capsule PO 04/17/22 08:59 150 mg QAM RODDY Administration Potassium Chloride 20 meq 03/19/22 21:00 03/24/22 07:27 Potassium Chloride Crtab 20 Meq Tabcr PO 04/18/22 20:59 20 meq BID RODDY Administration Vitamin D 2,000 units 03/18/22 09:00 03/24/22 07:27 Cholecalciferol 1,000 Units 25 Mcg Tab PO 04/17/22 08:59 2,000 units QAM RODDY Administration PG Care Time/CCT Total # of Minutes Spent Total Time Spent with Patient: Total time spent is greater than 50% in coordination of care (as documented) at patient's floor/unit and/or counseling patient: Coding Level of Care Code 80146 Subseq Hosp Care Lvl 2 Diagnoses MRSA bacteremia R78.81; B95.62 Hypoxia R09.02 Chronic kidney disease (CKD) N18.9 Pruritus L29.9 Elevated troponin R77.8 Acute leg pain M79.606 Laterality: unspecified laterality Anemia D64.9 Anemia type: unspecified type Cirrhosis K74.60 Chronic heart failure with preserved ejection fraction (HFpEF) I50.32 Hyperlipidemia E78.5 History of gout Z87.39 Depression with anxiety F41.8 Cerebrovascular disease I67.9 Atrial fibrillation I48.91 Atrial fibrillation type: unspecified Obstructive sleep apnea G47.33 Hypothyroidism E03.9 Hypothyroidism type: unspecified COPD (chronic obstructive pulmonary disease) J44.9 GERD (gastroesophageal reflux disease) K21.9 Esophagitis presence: esophagitis presence not specified Diabetes mellitus, type II E11.9 Hypertension I10 (1) Acute leg pain Laterality: unspecified laterality Qualified Code(s): M79.606 - Pain in leg, unspecified (2) Anemia Anemia type: unspecified type Qualified Code(s): D64.9 - Anemia, unspecified (3) Atrial fibrillation Atrial fibrillation type: unspecified Qualified Code(s): I48.91 - Unspecified atrial fibrillation (4) Hypothyroidism Hypothyroidism type: unspecified Qualified Code(s): E03.9 - Hypothyroidism, unspecified (5) GERD (gastroesophageal reflux disease) Esophagitis presence: esophagitis presence not specified Qualified Code(s): K21.9 - Gastro-esophageal reflux disease without esophagitis
[2022-03-25] MEDS: LEVOTHYROXINE SODIUM 50 MCG TABLET PO SCH (05:57)
[2022-03-25] MEDS: BUMETANIDE 1 MG TAB PO SCH ×2 (07:39→16:10)
[2022-03-25] MEDS: METOPROLOL SUCC 50MG EXT REL TAB PO SCH ×2 (07:39→20:18)
[2022-03-25] MEDS: APIXABAN 2.5 MG TAB PO SCH ×2 (07:40→20:20)
[2022-03-25] MEDS: DULoxetine HCL 30 MG CAP PO SCH (07:40)
[2022-03-25] MEDS: allopurinoL 300 MG TAB PO SCH (07:40)
[2022-03-25] MEDS: DULoxetine HCL 60 MG CAP PO SCH (07:40)
[2022-03-25] MEDS: ISOSORBIDE MONO EXTENDED REL 30 MG TABCR PO SCH (07:41)
[2022-03-25] MEDS: PANTOprazole 40 MG TAB PO SCH (07:41)
[2022-03-25] MEDS: CHOLECALCIFEROL 1,000 UNITS 25 MCG TAB PO SCH (07:41)
[2022-03-25] MEDS: CLOPIDOGREL BISULFATE 75 MG TAB PO SCH (07:41)
[2022-03-25] MEDS: IRON POLYSACCHARIDE COMPLEX 150 MG CAPSULE PO SCH (07:41)
[2022-03-25] MEDS: MAGNESIUM OXIDE 400 MG TAB PO SCH ×2 (07:41→20:20)
[2022-03-25] MEDS: BENZONATATE 100 MG CAPSULE PO PRN ×2 (08:50→16:10)
[2022-03-25] MEDS: POTASSIUM CHLORIDE CRTAB 20 MEQ TABCR PO SCH ×2 (08:50→20:25)
--- NOTE | 2022-03-25 10:12 | Cardiology Consultation ---
Date of Consultation March 25, 2022 Assessment & Plan (1) Blood bacterial culture positive: -MRSA noted in 1 of 4 original blood cultures. Follow-up cultures have been negative (therefore 1/8 positive blood cultures). -the patient has not been febrile during this hospitalization. -transthoracic echocardiogram without evidence of a valvular vegetation. -suspect positive blood culture from a contaminant. -do not feel a transesophageal echocardiogram is indicated at this time. (2) CAD (coronary artery disease): -LAD URBANO 2018 -overlapping LAD URBANO in 2019 for an in stent restenosis. -quiescent on current medical regimen. (3) Chronic diastolic congestive heart failure: -compensated at this time. -she follows daily weights and sliding-scale diuretics as an outpatient. -continue follow-up in our CHF clinic. History of Present Illness Attending Physician: Robert Styles MD History of Present Illness Mrs. Porter 87-year-old female admitted March 17 with acute respiratory failure felt secondary to a COPD exacerbation. She had 1 positive blood culture with MRSA, therefore, a transesophageal echocardiogram is being considered. Of note, patient is well known to me from the outpatient setting. The patient was in her usual state of health she began to note progressive dyspnea. On the day of presentation, she called 911 and was found to be hypoxic and in respiratory distress when the ambulance crew arrived. She was afebrile and hemodynamically stable. She was started on CPAP and given intravenous steroids and antibiotics for COPD exacerbation. BNP was 1299, however, was 1303 on March 03 during a hospitalization for acute on chronic diastolic CHF. The patient denies any recent fevers. She does carry history of coronary artery disease having an LAD URBANO placed in 2017. She had overlapping stents placed in 2019 for an in stent restenosis. She has been stable from a cardiac perspective since that time. She also carries a history of chronic diastolic CHF and is followed in our CHF clinic. She follows daily weights and sliding-scale diuretics. She was hospitalized from March 02 through the with an acute on chronic CHF episode. Currently, patient is resting comfortably in bed without complaints. Past medical and surgical history 1. Coronary artery disease 2. LAD URBANO-2017 3. LAD URBANO, overlapping-2018 4. Chronic diastolic CHF 5. Permanent atrial fibrillation 6. Hypertension 7. Hypercholesterolemia 8. Diabetes mellitus 9. COPD 10. Hypothyroidism 11. GERD 12. Cirrhosis 13. Anemia of chronic disease 14. Chronic renal failure 15. Gout 16. Obstructive sleep apnea 17. Anxiety/depression Social history Single, lives in a personal residential No tobacco alcohol Family history Noncontributory Review of systems A 10 review systems was undertaken and negative except for that described above. Allergies Allergy/AdvReac Type Severity Reaction Status Date / Time shellfish derived Allergy Severe ANAPHYLAXIS Verified 03/13/22 11:20 iodine Allergy Intermediate ANAPHYLAXIS Verified 03/13/22 11:20 lisinopril Allergy Unknown Unknown Verified 03/13/22 11:20 oxybutynin [From Ditropan] Allergy Unknown Unknown Verified 03/13/22 11:20 sertraline [From Zoloft] Allergy Unknown Unknown Verified 03/13/22 11:20 paroxetine AdvReac Mild GI UPSET Verified 03/13/22 11:20 Home Medications Medication Instructions Recorded Confirmed Type cholecalciferol (vitamin D3) 25 2,000 unit PO QAM 05/11/20 03/17/22 History mcg (1,000 unit) tablet (Vitamin D3) polyethylene glycol 3350 17 8.5 g PO DAILY PRN Constipation 01/28/21 03/17/22 History gram/dose oral powder (Miralax) vit C 226 mg-vit E 90 mg-copper 1 cap PO BID 02/01/21 03/17/22 History 0.8 mg-zinc oxide-lutein 5 mg capsule (PreserVision Lutein) allopurinol 100 mg tablet 300 mg PO QAM #90 tabs 12/16/21 03/17/22 Rx (Zyloprim) apixaban 2.5 mg tablet (Eliquis) 2.5 mg PO BID #180 tabs 12/16/21 03/17/22 Rx bumetanide 2 mg tablet 2 mg PO BID #60 tabs 12/16/21 03/17/22 Rx clopidogrel 75 mg tablet (Plavix) 75 mg PO QAM #90 tabs 12/16/21 03/17/22 Rx digoxin 125 mcg (0.125 mg) tablet 125 mcg PO Q2D #15 tabs 12/16/21 03/17/22 Rx (Digitek) duloxetine 30 mg capsule,delayed 30 mg PO QAM #90 caps 12/16/21 03/17/22 Rx release (Cymbalta) duloxetine 60 mg capsule,delayed 60 mg PO QAM #90 caps 22 03/17/22 Rx release (Cymbalta) isosorbide mononitrate 30 mg 30 mg PO QAM #90 tabs 22 03/17/22 Rx tablet,extended release 24 hr levothyroxine 50 mcg tablet 50 mcg PO DAILYBB #30 tabs 12/16/21 03/17/22 Rx (Synthroid) magnesium oxide 400 mg PO BID #180 tabs 12/16/21 03/17/22 Rx metoprolol succinate 50 mg 150 mg PO BID #540 tabs 12/16/21 03/17/22 Rx tablet,extended release 24 hr (Toprol XL) mirtazapine 15 mg tablet (Remeron) 15 mg PO HS #30 tabs 12/16/21 03/17/22 Rx pantoprazole 40 mg tablet,delayed 40 mg PO QAM #90 tabs 12/16/21 03/17/22 Rx release (Protonix) polysaccharide iron complex 150 mg 150 mg PO QAM #90 caps 12/16/21 03/17/22 Rx iron capsule (Ferrex) potassium chloride 20 mEq 10 meq PO BID #180 tabs 12/16/21 03/17/22 Rx tablet,extended release (K-Tab) insulin glargine 100 unit/mL (3 28 unit (0.28 mL) subcut HS #15 mL 12/18/21 03/17/22 Rx mL) subcutaneous pen (Lantus Solostar U-100 Insulin) glucagon 1 mg solution for 1 mg subcut Q20M PRN hypoglycemia 01/02/22 03/17/22 Rx injection (Glucagon Emergency Kit) #1 ea nitroglycerin 0.3 mg sublingual 0.3 mg sublingual Q5M PRN Chest 01/17/22 03/17/22 History tablet Pain nystatin 100,000 unit/gram topical 1 applic topical TID 2 weeks #30 01/21/22 03/17/22 Rx cream grams insulin aspart U-100 100 unit/mL 7 - 10 unit (0.07 - 0.1 mL) subcut 02/04/22 03/17/22 Rx (3 mL) subcutaneous pen (Novolog TIDM #45 mL Flexpen U-100 Insulin aspart) clobetasol 0.05 % topical cream 1 applic topical BID #30 grams 02/19/22 03/17/22 Rx guaifenesin 600 mg tablet, 600 mg PO BID PRN cough #60 tabs 03/13/22 03/17/22 Rx extended release 12 hr Patient History Medical History Anemia Asthma Atrial fibrillation CAD (coronary artery disease) Cerebrovascular disease Chronic diastolic congestive heart failure Chronic kidney disease (CKD) Stage III, baseline Cr 1.3-1.5mg/dL. Complicated with normocytic anemia and secondary hyperparathyroidism. Followed by nephrology. 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 Cannot perform MRI due to bladder implant. Followed by pain management. Epidural steroid injections with improvement of pain. Evaluated by ortho, decided against surgery. Managed with gabapentin 300mg TID + APAP PRN + tapentadol 50mg BID PRN GERD (gastroesophageal reflux disease) GIB (gastrointestinal bleeding) History of gout Managed with allopruinol daily. No recent gouty attacks. Uric acid suppressed 3.4 mg/dl (12/22) Hyperlipidemia Secondary prevention with moderate intensity statin (atorvastatin 20mg daily) Hypertension Hypothyroidism Lichen planus Macular degeneration Mitral regurgitation Neurologic gait dysfunction Obstructive sleep apnea Long standing. Managed with CPAP nightly. CPAP titration polysomnography (07/14). Sensorineural hearing loss (SNHL) of both ears Venous insufficiency of both lower extremities Surgical History H/O colonoscopy History of repair of rectocele S/P breast biopsy S/P section S/P cholecystectomy S/P hysterectomy S/P implantation of urinary electronic stimulator device Family History Father , Age 64 No problems noted. Mother , Age 61 No problems noted. Other Coronary heart disease Denies family history of Ovarian cancer Prostate cancer Crohn's disease Breast cancer Lung cancer Colorectal cancer Social History Smoking Status: Never smoker Second Hand Exposure: No; Do You Dip or Chew Tobacco: No; Tobacco Cessation Education Requested by Patient: No Hx Alcohol Use: No Hx Substance Use: No Preferred Language: [place] Communication Ability: Effective Visual Impairment: No Limitations Hearing Ability: Normal Optical Advisor Required: No Beliefs That Will Affect Care: None marital status: Single Current Living Situation: [facility] Current Living Situation Comment: [facility] current occupational status: retired How many Children do You have: 3 Other Information That Helps Us Care for You: No Feels Safe at Home: Yes Safety Concerns: Feels Safe At This Time Childhood Exposure to Second-Hand Smoke: No Diet Comment: DIABETIC caffeine: No during the past year weight has: remained stable Dental Care, Regularly: No Physical Activity Frequency: 1-2 Times per Week Seatbelt Use: always Sunscreen Use: Yes Assistive Devices: Glasses and Walker Physical Exam Physical Exam: In general this is an obese white female seated in a chair without complaints. HEENT is negative. Neck is supple with full carotid upstrokes. No carotid bruits. No JVD. There is no thyromegaly. Cardiovascular exam reveals an irregular regular rhythm with distant heart sounds. No obvious murmurs. Lungs are clear without rales, rhonchi or wheezes. Abdomen is obese without bruits. Extremities reveal intact radial artery pulses bilaterally. There is trace pretibial edema bilaterally. Fingernail beds are excoriated with scabbing noted. Toenail beds also excoriated. Results & Data ([facility]) Vital Signs (Past 12 Hours) Vital Signs Temp Pulse Resp BP Pulse Ox O2 Del Method 03/25/22 07:33 36.7 C 68 16 148/78 H 94 Room Air Laboratory Results CBC notes hemoglobin 8.8, hematocrit 20.4, white count 11.6, platelet count 260115. Electrolytes note a sodium of 140, potassium 4.0, chloride 97, bicarb 36, BUN 71, creatinine 1.7, and glucose of 231. High sensitivity troponin was 30.7 on admission, follow-up value of 25.2. BNP was elevated 1299 on admission. 04/13 blood cultures has an MRSA species. Diagnostic Findings EKG notes atrial fibrillation with a left axis deviation and low voltage throughout. Echocardiogram notes normal left ventricular systolic function with ejection fraction of 60-65%. There was mild to moderate mitral regurgitation and moderate to severe tricuspid regurgitation. No vegetations were identified. Compared with the study done February 2022, no significant change. PG Care Time/CCT Total # of Minutes Spent Total Time Spent with Patient: Total time spent is greater than 50% in coordination of care (as documented) at patient's floor/unit and/or counseling patient: Coding Level of Care Code 40476 Initial Inpt Care Lvl 3 Diagnoses Blood bacterial culture positive R78.81 CAD (coronary artery disease) I25.10 Chronic diastolic congestive heart failure I50.32
[2022-03-25 10:45] LABS: BUN Creatinine Ratio 31.2 (10-20); Calcium 8.3 mg/dl (8.5-10.1); Creatinine Clr Calc Pharmacy 20.4 ml/min; Est GFR (African American) 35.3 ml/min; Est GFR (Non-African American) 30.5 ml/min; Potassium 3.3 mmol/L (3.5-5.1)
[2022-03-25] MEDS ORDERED: VANCOMYCIN LEVEL ONE (11:00)
[2022-03-25 11:04] LABS: Anisocytosis Present; Basophils # (auto) 0.06 K/uL (0-0.2); Basophils % (auto) 0.6 %; Eosinophils # (auto) 0.17 K/uL (0-0.50); Eosinophils % (auto) 1.8 %; Hematocrit (blood only) 27.3 % (34.1-44.9); Hemoglobin 8.5 g/dl (12.0-16.0); Immature Granulocytes # (auto) 0.41 K/uL (0.00-0.02); Immature Granulocytes % (auto) 4.4 %; Lymphocytes # (auto) 0.59 K/uL (1.2-3.4); Lymphocytes % (auto) 6.3 %; Mean Corpuscular Hemoglobin 34.8 pg (25.0-34.0); Mean Corpuscular Hgb Conc 31.1 g/dL (32.0-36.0); Mean Corpuscular Volume 111.9 fL (80.0-100.0); Monocytes # (auto) 0.78 K/uL (0.24-0.82); Monocytes % (auto) 8.4 %; Neutrophils # (auto) 7.31 K/uL (1.4-6.5); Neutrophils % (auto) 78.5 %; Nucleated RBC # (auto) 0.32 K/uL (0-0); Nucleated RBC % (auto) 3.4 %; Ovalocytes 3+; Platelet Count 244 K/uL (130-400); Poikilocytosis Present; Polychromasia 1+; RDW Coefficient of Variation 23.6 % (11.5-14.5); RDW Standard Deviation 89.9 fL (36.4-46.3); Red Blood Count 2.44 M/uL (3.93-5.22); Tear Drop Cells 1+; White Blood Count 9.32 K/ul (4.8-10.8)
[2022-03-25] MEDS: VANCOMYCIN HCL 750 MG in SODIUM CHLORIDE 0.9% 250 ML IV SCH (13:43)
--- NOTE | 2022-03-25 14:11 | Infectious Disease Progress Nt ---
Date of Service March 25, 2022 Assessment & Plan (1) MRSA bacteremia: (2) CKD (chronic kidney disease): (3) Pruritus: (4) COPD exacerbation: Plan This is an 86 year old female with pmh of cad, diastolic HF, Atrial fibrillation on Eliquis, CKD, hypothyroidism, dm2, cirrhosis with severe skin itching , vascular insufficiency who presents to the ED on 03/17/22 with increased shortness of breath adn RLE pain. Shortness of breath is worse with exertion and associated with a dry cough. She lives in assisted living but denies any known sick contacts. She denies productive cough, fever, chills, nausea, vomiting, chest pain, joint pain, change in urine or bowel habits. recent falls or trauma to skin. She endorses itching her skin and has some scabs secondary to this She was initially found to be in respiratory distress and hypoxic by EMS and placed on cpap. In the Ed, she was afebrile with BP 155/70, RR 40, HR 89 and 100 % 02 sat on CPAP. She was switched to Bipap for comfort and than 4 LNC Labs were noted for a WBc of 9.9 , Cr 1.5, procal 0.09, and negative covid, Influenza, and RSV testing . CXr showed mild central pulmonary vascular congestion. R femur Xray was unremarkable and LE doppler was negative for DVt. She was started on azithromycin/ steroids for possible COPD exacerbation with mild chf component. She was continued on home dose of Bumex. Her respiratory status improved and she was weaned to room air. Resp PCr finalized + as RSV. Her hospital coursewas c/b 1/ MRSA bacteremia on 03/17. Repeat blood cultures from 03/21 are sterile. She denies hardware, prosthetics but has a sacral stimulator on imaging. A TTE done 03/21 is without valve vegetations Id consulted for evaluation of MRSA bacteremia Micro: BC 03/17 04/09 + mrsa MRSA RX M.I.C. --- --------- Clindamycin R >4 Daptomycin S 1 Erythromycin R >4 Oxacillin R >2 Rifampin S <=1 Tetracycline S <=4 Trimeth/Sulfa S <=0.5/9.5 Vancomycin S 2 S = SENSITIVE I = INTERMEDIATE R = Mrsa screen 03/17 and 12/16 positive Bc 03/21 Sterile Respiratory PCR panel + RSV ABx: azithromycin 03/17-03/21 vancomycin 03/19- current vanco trough 03/20-24.2, random level 03/22 19.6 1. Mrsa bacteremia of unknown etiology possible sources: skin vs endocarditis ( has ? embolic phenomena on right 4th toe) - denies hardware, or prosthetics. However per review of chart she has history of urinary electronic stimulator in place- sacral stimulator seen on pelvis xray done on 02/15/22 - multiple skin disruptions:abrasions, scratched skin, dried wounds, excessive finger nail bitting with dystrophic damaged finger nail beds - left anterior swanson with open wound - mild foul drainage, tender - nicks on toes , but one area with ? splinter hemorrhage - TTE on 03/21 is negative for vegetation,mod- severe TR , mild - mod MR - no joint pain or effusions on exam - no central lines 2. Chronic skin wounds, abrasions - per review of micro data has had+ MRSA wound cultures ( wc + 12/27/20 and 08/19/18) 3. Severe finger nail biting 4. Acute hypoxic respiratory failure- resolved cpap-->Bipap---> 4l NC ---> now on RA thought to be 2/2 COPD exacerbation Covid,flu, rsv negative RSV+ on pcr No infiltrate on cxr to suggest bacterial pna 5. Sacral stimulator seen on imaging from 02/15/22. 6. ckd Discussion .A possible source for the 04/09 MRSA bacteremia is the skin Staph aureus is part of skin nuha She has pruritis 2/2 cirrhosis and repeatedly scratches her skin. She excessively bites her finger nails and has uneven, dystrophic, uneven nail beds with loosened and missing nails on some fingers. She has multiple dried lesions on lower extremity. There is an area of mild TTP and slight drainage from area of abraded skin on the left anterior calf. There is a bluish discoloration that is blanchable on the plantar side of R great toe, the Left 3rd toe is mildly red and tender to touch. However on the R 4th toe, there is what appears to be a ?splinter hemorrhage on the nail bed ? c/f possible embolic phenomena. Recommendations Given bacteremia and ? splinter hemorrhage, would pursue LUNA to rule out endocarditis. However per d/w with her locomotive switch operator, Dr Roland( also follows her outpt) , he feels her fragile state and comorbidities put her at high risk for LUNA and does not recommend. Additionally, patient does want to pursue LUNA at the time and wants to go home . TTE did not reveal valve vegetation. Would change IV vancomycin to Daptomycin 8 mg/kg IV 48 given renal function and ease of dosing, check CPK, ( cl 20. 4, gfr 30.5, cr 1.54 today ) Dapto risk for myopathy, eosinophilia. Continue wound care, BC cleared as of 03/21 plan to treat for minimum 4 weeks of Daptomycin from sterile BC as we can not rule out endovascular infection, and she has hardware in place ( stimulator). Since only 04/13 bottles , cleared quickly. it seem less likely and possibly secondary to skin as she presented with pain at abraded skin site. But i cant explain lesions on her toe nail and she has a stimulator in place would check ct abdomen to further evaluate to see if the stimulator involved in ifnfection can place picc or midline as BC now sterile FINAL recs will depend on CTAB result Recommendation d/w hospitalist Dr Styles for start of Dapto , No LUNA per cards, and investigate stimulator-- would order CTAB tocheck stimulator D/w cardiology Dr Roland, and does not want to purse LUNA as per above . Thank you for allowing me to participate in the care of your patient. ID will continue to follow the patient with you. Rabia Dupont MD, MPH [facility] Admission and Anticipated Discharge Date Admission Date: March 17, 2022 Subjective Subsequent visit was provided via telemedicine using two-way real-time interactive telecommunication between the patient and the telemedicine provider. For the duration of the visit, the provider was performing the assessment from a different facility than the patient. This includesuse of bluetooth stethoscope forauscultationperformed by the telepresenter that the te lemedicine provider can hear if described in the physical exam. Conveyor Weigher Operator contact information: Please call [facility] Call Center [phone]. (Phone Number For Physician Use Only) After establishing a telemedicine visit, patient was: Patient/authorized rep acknowledged consent and understanding and Gave permission to continue telehealth session She has less RLE pain as skin abrasion near rmedial upper calf. She was seen by her locomotive switch operator today. Review of System Denies fever, chills Physical Exam Constitutional: NAD Eyes: PERRL, EOMI ENMT: oral mucosa moist Fair dentition, throat clear Neck: supple Respiratory: No increased work of breathing Cardiovascular: s1s2 RRR Gastrointestinal (Abdomen): soft, Non tender, not distended, No guarding Musculoskeletal: Moves all extremities. No joint effusions. No spinal tenderness. Skin: scabbed lesion on BL UE BL LE venous stasis changes, , LE chronic dried crusted wounds. RLE crusted wound with surrounding blanchable erythema. Not tender or warm. Left anterior swanson with area of abraded skin , tender to touch, not warm. No drainage today right great toe plantar surface with faint bruise. Several scabs on right toes. R 4th toenail with what appears to be a splinter hemorrhages. Left 3rd toe is mildly red and tender to touch, Also nail with cori bed change fingernail on both hands severely bitten , dystrophic appearing nails and dry appeaing cuticles - no evidene of active infection . 2 peripheral line, clean appearing Neurologic: awake, alert and oriented times 3. Psychiatric: Appropriate, cooperative Results & Data ([facility]) Vital Signs (Past 12 Hours) Vital Signs Temp Pulse Resp BP Pulse Ox O2 Del Method 03/25/22 07:00 Room Air 03/25/22 07:33 36.7 C 68 16 148/78 H 94 Room Air Laboratory Results Laboratory Results - last 48 hr 03/24/22 03/25/22 03/25/22 07:43 09:27 09:27 WBC 9.32 RBC 2.44 L Hgb 8.5 L Hct 27.3 L MCV 111.9 H MCH 34.8 H MCHC 31.1 L RDW Std Deviation 89.9 H RDW Coeff of Talia 23.6 H Plt Count 244 Immature Gran % (Auto) 4.4 Neut % (Auto) 78.5 Lymph % (Auto) 6.3 [place] % (Auto) 8.4 Eos % (Auto) 1.8 Baso % (Auto) 0.6 Neut # (Auto) 7.31 H Lymph # (Auto) 0.59 L [place] # (Auto) 0.78 Eos # (Auto) 0.17 Baso # (Auto) 0.06 Immature Gran # (Auto) 0.41 H Absolute Nucleated RBC 0.32 H Nucleated RBC % (auto) 3.4 Polychromasia 1+ Poikilocytosis Present Anisocytosis Present Tear Drop Cells 1+ Ovalocytes 3+ ESR 14 Sodium Potassium Chloride Carbon Dioxide Anion Gap BUN Creatinine 1.67 H Est Cr Clr Drug Dosing 18.8 Est GFR ( Amer) 32.0 Est GFR (Non-Af Amer) 27.6 BUN/Creatinine Ratio Glucose Calcium Vancomycin Trough 03/25/22 03/25/22 09:27 11:34 WBC RBC Hgb Hct MCV MCH MCHC RDW Std Deviation RDW Coeff of Talia Plt Count Immature Gran % (Auto) Neut % (Auto) Lymph % (Auto) [place] % (Auto) Eos % (Auto) Baso % (Auto) Neut # (Auto) Lymph # (Auto) [place] # (Auto) Eos # (Auto) Baso # (Auto) Immature Gran # (Auto) Absolute Nucleated RBC Nucleated RBC % (auto) Polychromasia Poikilocytosis Anisocytosis Tear Drop Cells Ovalocytes ESR Sodium 136 Potassium 3.3 L Chloride 92 L Carbon Dioxide 39 H Anion Gap 5 BUN 48 H Creatinine 1.54 H Est Cr Clr Drug Dosing 20.4 Est GFR ( Amer) 35.3 Est GFR (Non-Af Amer) 30.5 BUN/Creatinine Ratio 31.2 H Glucose 279 H Calcium 8.3 L Vancomycin Trough 19.2 Diagnostic Findings Microbiology 03/17/22 14:57 Blood Aerobic Blood Culture - Final Staph aureus MRSA 03/17/22 14:57 Blood Anaerobic Blood Culture - Final No growth in Anaerobic bottle after 5 days. 03/21/22 15:20 Blood Aerobic Blood Culture - Preliminary No growth in Aerobic bottle after 48 hours. 03/21/22 15:20 Blood Anaerobic Blood Culture - Final 03/21/22 15:16 Blood Aerobic Blood Culture - Preliminary No growth in Aerobic bottle after 48 hours. 03/21/22 15:16 Blood Anaerobic Blood Culture - Final 03/17/22 14:59 Blood Aerobic Blood Culture - Final No growth in Aerobic bottle after 5 days. 03/17/22 14:59 Blood Anaerobic Blood Culture - Final (1) CKD (chronic kidney disease) Chronic kidney disease stage: unspecified stage Qualified Code(s): N18.9 - Chronic kidney disease, unspecified
--- NOTE | 2022-03-25 14:15 | Pharmacy Report ---
Pharmacy PK ABX Note - Date of Service March 25, 2022 - Assessment and Plan Assessment 87 year old F receiving vancomycin for treatment of MRSA bacteremia. Pertinent microbiologic data includes: Blood culture X1 positive for staph in clusters with subsequent [employer] confirming detection of MRSA. Repeat cultures (03/21) pending. SCr 1.9 -->1.69mg/dL. Today is day #7 of antimicrobial therapy. Serum creat improved to 1.54 mg/dl today. Plan Vancomycin * Trough level this AM, 19.2 mcg/mL predicted to achieve a steady state AUC of 500mg/L/hr - therapeutic. * Continue vancomycin 750mg IV q24h Pharmacy will continue to follow and will adjust dose/frequency as necessary. Thank you.
[2022-03-25] MEDS: ALBUT/IPRATROP 3MG/0.5MG NEB 3 ML VIAL NEB PRN (18:34)
--- NOTE | 2022-03-25 19:36 | Hospitalist Progress Note ---
Date of Service March 25, 2022 Assessment & Plan (1) MRSA bacteremia: Plan: On vancomycin and blood cultures: Only 1 of 8 blood cultures positive for MRSA tte -no vegetations Has a sacral stimulator in place per ID Discussed with ID Dr Dupont who suspects possible skin source because the patient scratches himself continually LUNA not being done because the patient's comorbiditiesID discussed with cardiology Plan now to give 4 weeks of vancomycin repeat blood cultures. PICC line order placed. Consent obtained. (2) Hypoxia: Plan: Acute hypoxic respiratory failure has now resolved. She is stable on room air. Was felt to be COPD exacerbation. Now resolved and baseline (3) Chronic kidney disease (CKD): Plan: ARF on CKD stage IIIon home dose of Bumex. Baseline creatinine Home lisinopril being held. Metoprolol 150 twice daily ongoing. Vanco dosing being adjusted by pharmacy and that is appreciated (4) Pruritus: Plan: No rash. 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 It is causing significant distress and anxiety. Antihistamines like Benadryl are not effective for chronic pruritus because it is not histamine release mediated. Advised to stop using Dial soap and use something mild like Dove. Given instructions to use only creams out of jars which are more effective and to buy Eucerin to apply immediately after shower and repeat during the day. Avoid hot showers. After applying Eucerin to her arms and legs and back the patient 's symptoms improved . (5) Elevated troponin: Plan: No evidence of acute coronary syndrome. Telemetry atrial fibrillation with controlled rate. Telemetry discontinued. We will follow (6) Acute leg pain: Plan: Not mentioned last 2 days (7) Anemia: Plan: Macrocytic in the presence of normal B12 and folate as recently as 03/18 1 g drop in the last 4-month (8) Cirrhosis: Plan: Currently stable. Continue current management Etiology unclear-and is a diagnosis before this admission (9) Chronic heart failure with preserved ejection fraction (HFpEF): Plan: BNP chronically elevated. This is chronic with no acute exacerbation this admission continue current medical management. Monitor intake and output. Bumex 2 mg twice daily with potassium added. Potassium low intermittently and being replaced. High K foods recommended- will ask dietary to educate . History of CAD on isosorbide (10) Hyperlipidemia: Plan: Continue statin . Low-cholesterol diet (11) History of gout: Plan: Contihnue allopurinol (12) Depression with anxiety: Plan: Continue duloxetine and HS remeron (13) Cerebrovascular disease: Plan: Continue plavix (14) Atrial fibrillation: Plan: Rate controlled with current medical management. Not on telemetry. Continue Eliquis, metoprolol, Digoxin (15) Obstructive sleep apnea: Plan: HS CPAP ordered. Stable (16) Hypothyroidism: Plan: Continue levothyroxine . Stable (17) COPD (chronic obstructive pulmonary disease): Plan: Admitted with acute exacerbation. Now approaching baseline. Continue current medical management. Only on nebulizer as needed. We will start albuterol HFA twice daily seem to cough more in the last few days (18) GERD (gastroesophageal reflux disease): Plan: Continue pantoprazole (19) Diabetes mellitus, type II: Plan: She had developed hypoglycemia. Lantus has been discontinued. (20) Hypertension: Plan: Stable with current medical management Metoprolol 150 twice daily home dose: Amlodipine 10 mg at bedtime started here. Plan Patient was upset but understood that a PICC line is being placed and IV antibiotics for 4 weeks will be arranged as an outpatient. This is unlikely to happen in her [facility] per case management. SNF choices given by son today. Admission and Anticipated Discharge Date Admission Date: March 17, 2022 Subjective at 1530 h, patient was dressed in her street clothes saying she is being discharged today and a doctor had come in and told her that this morning. She had called her daughter to pick her up Chronic cough not changed. Denies shortness of breath. Is quite independent and walking on her own.Does not have the prescribed Eucerin cream by her, and arms skin is dry Was upset most of the day because could not find her upper dentures which she says she had come into the hospital with Physical Exam Physical Exam: Alert pleasant overweight lady, sitting in bed, lucid historian , oriented to person and place Head and neck moist tongue Normal insight and judgment Chest: diffuse expiratory wheezing CVS S1-S2 systolic ejection murmur grade 2 FACILITY ATTENDANT gait not observed, Skin dry upper extremities, was in jeans so her lower extremities not examined today except for feet, ecchymosis on the left third nailbed, also petechiae over the right first third and fifth digit nailbeds Abdomen slightly distended nontender Results & Data Results & Data ([facility]) Vital Signs (Past 12 Hours) Vital Signs Temp Pulse Pulse Resp BP Pulse Ox O2 Del Method 03/25/22 18:34 79 20 96 Room Air 03/25/22 15:00 36.3 C L 76 16 123/59 L 97 Room Air 03/25/22 07:33 36.7 C 68 16 148/78 H 94 Room Air Laboratory Results 03/25/22 03/25/22 03/25/22 11:34 09:27 09:27 WBC RBC Hgb Hct MCV MCH MCHC RDW Std Deviation RDW Coeff of Talia Plt Count Immature Gran % (Auto) Neut % (Auto) Lymph % (Auto) [place] % (Auto) Eos % (Auto) Baso % (Auto) Neut # (Auto) Lymph # (Auto) [place] # (Auto) Eos # (Auto) Baso # (Auto) Immature Gran # (Auto) Absolute Nucleated RBC Nucleated RBC % (auto) Polychromasia Poikilocytosis Anisocytosis Tear Drop Cells Ovalocytes ESR 14 Sodium 136 Potassium 3.3 L Chloride 92 L Carbon Dioxide 39 H Anion Gap 5 BUN 48 H Creatinine 1.54 H Est Cr Clr Drug Dosing 20.4 Est GFR ( Amer) 35.3 Est GFR (Non-Af Amer) 30.5 BUN/Creatinine Ratio 31.2 H Glucose 279 H Calcium 8.3 L Vancomycin Trough 19.2 03/25/22 09:27 WBC 9.32 RBC 2.44 L Hgb 8.5 L Hct 27.3 L MCV 111.9 H MCH 34.8 H MCHC 31.1 L RDW Std Deviation 89.9 H RDW Coeff of Talia 23.6 H Plt Count 244 Immature Gran % (Auto) 4.4 Neut % (Auto) 78.5 Lymph % (Auto) 6.3 [place] % (Auto) 8.4 Eos % (Auto) 1.8 Baso % (Auto) 0.6 Neut # (Auto) 7.31 H Lymph # (Auto) 0.59 L [place] # (Auto) 0.78 Eos # (Auto) 0.17 Baso # (Auto) 0.06 Immature Gran # (Auto) 0.41 H Absolute Nucleated RBC 0.32 H Nucleated RBC % (auto) 3.4 Polychromasia 1+ Poikilocytosis Present Anisocytosis Present Tear Drop Cells 1+ Ovalocytes 3+ ESR Sodium Potassium Chloride Carbon Dioxide Anion Gap BUN Creatinine Est Cr Clr Drug Dosing Est GFR ( Amer) Est GFR (Non-Af Amer) BUN/Creatinine Ratio Glucose Calcium Vancomycin Trough Medications Administered Home Medications Medication Instructions Recorded Confirmed Last Taken cholecalciferol (vitamin D3) 25 2,000 unit PO QAM 05/11/20 03/17/22 04/22/21 mcg (1,000 unit) tablet (Vitamin D3) polyethylene glycol 3350 17 8.5 g PO DAILY PRN Constipation 01/28/21 03/17/22 Unknown gram/dose oral powder (Miralax) vit C 226 mg-vit E 90 mg-copper 1 cap PO BID 02/01/21 03/17/22 04/22/21 0.8 mg-zinc oxide-lutein 5 mg capsule (PreserVision Lutein) allopurinol 100 mg tablet 300 mg PO QAM #90 tabs 12/16/21 03/17/22 Unknown (Zyloprim) apixaban 2.5 mg tablet (Eliquis) 2.5 mg PO BID #180 tabs 12/16/21 03/17/22 Unknown bumetanide 2 mg tablet 2 mg PO BID #60 tabs 12/16/21 03/17/22 Unknown clopidogrel 75 mg tablet (Plavix) 75 mg PO QAM #90 tabs 12/16/21 03/17/22 Unknown digoxin 125 mcg (0.125 mg) tablet 125 mcg PO Q2D #15 tabs 12/16/21 03/17/22 Unknown (Digitek) duloxetine 30 mg capsule,delayed 30 mg PO QAM #90 caps 12/16/21 03/17/22 Unknown release (Cymbalta) duloxetine 60 mg capsule,delayed 60 mg PO QAM #90 caps 12/16/21 03/17/22 Unknown release (Cymbalta) isosorbide mononitrate 30 mg 30 mg PO QAM #90 tabs 12/16/21 03/17/22 Unknown tablet,extended release 24 hr levothyroxine 50 mcg tablet 50 mcg PO DAILYBB #30 tabs 12/16/21 03/17/22 Unknown (Synthroid) magnesium oxide 400 mg PO BID #180 tabs 22 03/17/22 Unknown metoprolol succinate 50 mg 150 mg PO BID #540 tabs 12/16/21 03/17/22 Unknown tablet,extended release 24 hr (Toprol XL) mirtazapine 15 mg tablet (Remeron) 15 mg PO HS #30 tabs 12/16/21 03/17/22 Unknown pantoprazole 40 mg tablet,delayed 40 mg PO QAM #90 tabs 12/16/21 03/17/22 Unknown release (Protonix) polysaccharide iron complex 150 mg 150 mg PO QAM #90 caps 12/16/21 03/17/22 Unknown iron capsule (Ferrex) potassium chloride 20 mEq 10 meq PO BID #180 tabs 12/16/21 03/17/22 Unknown tablet,extended release (K-Tab) insulin glargine 100 unit/mL (3 28 unit (0.28 mL) subcut HS #15 mL 12/18/21 03/17/22 Unknown mL) subcutaneous pen (Lantus Solostar U-100 Insulin) glucagon 1 mg solution for 1 mg subcut Q20M PRN hypoglycemia 01/02/22 03/17/22 Unknown injection (Glucagon Emergency Kit) #1 ea nitroglycerin 0.3 mg sublingual 0.3 mg sublingual Q5M PRN Chest 01/17/22 03/17/22 Unknown tablet Pain nystatin 100,000 unit/gram topical 1 applic topical TID 2 weeks #30 01/21/22 03/17/22 Unknown cream grams insulin aspart U-100 100 unit/mL 7 - 10 unit (0.07 - 0.1 mL) subcut 02/04/22 03/17/22 Unknown (3 mL) subcutaneous pen (Novolog TIDM #45 mL Flexpen U-100 Insulin aspart) clobetasol 0.05 % topical cream 1 applic topical BID #30 grams 02/19/22 03/17/22 Unknown guaifenesin 600 mg tablet, 600 mg PO BID PRN cough #60 tabs 03/13/22 03/17/22 Unknown extended release 12 hr Active Medications Generic Name Dose Route Start Last Admin Trade Name Freq PRN Reason Stop Dose Admin Acetaminophen 650 mg 03/17/22 19:19 03/24/22 02:09 Acetaminophen 325 Mg Tab PO 04/16/22 19:18 650 mg Q4H PRN Administration Pain (1,2,3) Or Fever Albuterol 3 ml 03/18/22 09:24 03/25/22 18:34 Albut/Ipratrop 3mg/0.5mg Neb 3 Ml Vial NEB 04/16/22 18:59 3 ml Q4R PRN Administration Shortness Of Breath Or Wheezing Protocol Allopurinol 300 mg 03/18/22 09:00 03/25/22 07:40 Allopurinol 300 Mg Tab PO 04/17/22 08:59 300 mg QAM RODDY Administration Amlodipine Besylate 10 mg 03/24/22 21:00 03/24/22 20:14 Amlodipine Besylate 5 Mg Tab PO 04/23/22 20:59 10 mg HS RODDY Administration Apixaban 2.5 mg 03/17/22 21:00 03/25/22 07:40 Apixaban 2.5 Mg Tab PO 04/16/22 20:59 2.5 mg BID RODDY Administration Benzonatate 100 mg 03/19/22 00:26 03/25/22 16:10 Benzonatate 100 Mg Capsule PO 04/18/22 00:25 100 mg TID PRN Administration Cough Bumetanide 2 mg 03/17/22 19:45 03/25/22 16:10 Bumetanide 1 Mg Tab PO 04/16/22 19:44 2 mg BID17 RODDY Administration Clopidogrel Bisulfate 75 mg 03/18/22 09:00 03/25/22 07:41 Clopidogrel Bisulfate 75 Mg Tab PO 04/17/22 08:59 75 mg QAM RODDY Administration Diclofenac Sodium 2 gm 03/22/22 17:26 03/24/22 02:11 Diclofenac Sod 1% Gel 100 Gm Tube EXT 04/21/22 17:25 2 gm Q4H PRN Administration Pain Protocol Digoxin 0.125 mg 03/18/22 16:00 03/24/22 17:25 Digoxin 0.125 Mg Tab PO 04/17/22 15:59 0.125 mg Q2D@1600 RODDY Administration Diphenhydramine HCl 50 mg 03/18/22 12:34 03/20/22 05:46 Diphenhydramine Capsule 25 Mg Cap PO 04/17/22 12:33 50 mg Q6H PRN Administration Itching Duloxetine HCl 60 mg 03/18/22 09:00 03/25/22 07:40 Duloxetine Hcl 60 Mg Cap PO 04/17/22 08:59 60 mg QAM RODDY Administration Duloxetine HCl 30 mg 03/18/22 09:00 03/25/22 07:40 Duloxetine Hcl 30 Mg Cap PO 04/17/22 08:59 30 mg QAM RODDY Administration Guaifenesin 600 mg 03/17/22 19:19 03/20/22 08:03 Guaifenesin 600 Mg Tabcr PO 04/16/22 19:18 600 mg BID PRN Administration cough Hydrocortisone 1 appln 03/20/22 03:10 03/22/22 17:55 Hydrocortisone 1% Crm 30 Gm Tube EXT 04/19/22 03:09 1 appln BID PRN Administration rash or itching Vancomycin HCl 750 mg/ Sodium 265 mls @ 200 mls/hr 03/21/22 12:00 03/25/22 15:56 Chloride IV 04/02/22 11:59 Infused Q24H RODDY Infusion Protocol Isosorbide Mononitrate 30 mg 03/18/22 09:00 03/25/22 07:41 Isosorbide [place] Extended Rel 30 Mg Tabcr PO 04/17/22 08:59 30 mg QAM RODDY Administration Levothyroxine Sodium 50 mcg 03/18/22 06:30 03/25/22 05:57 Levothyroxine Sodium 50 Mcg Tablet PO 04/17/22 06:29 50 mcg DAILYBB RODDY Administration Magnesium Oxide 400 mg 03/17/22 21:00 03/25/22 07:41 Magnesium Oxide 400 Mg Tab PO 04/16/22 20:59 400 mg BID RODDY Administration Metoprolol Succinate 150 mg 03/17/22 21:00 03/25/22 07:39 Metoprolol Succ 50mg Ext Rel Tab PO 04/16/22 20:59 150 mg BID RODDY Administration Mirtazapine 15 mg 03/17/22 21:00 03/24/22 20:13 Mirtazapine Tab 15 Mg Tab PO 04/16/22 20:59 15 mg HS RODDY Administration Multi-Ingredient Cream 1 appln 03/20/22 10:14 03/22/22 16:35 Eucerin Cr 120 Gm Jar EXT 04/19/22 10:13 1 appln [id number] PRN Administration Itching Pantoprazole Sodium 40 mg 03/18/22 09:00 03/25/22 07:41 Pantoprazole 40 Mg Tab PO 04/17/22 08:59 40 mg QAM RODDY Administration Polyethylene Glycol 8.5 gm 03/17/22 19:19 03/25/22 07:40 Polyethylene (Miralax) 17 Gm Pack PO 04/16/22 19:18 8.5 gm DAILY PRN Administration Constipation Polysaccharide Iron Complex 150 mg 03/18/22 09:00 03/25/22 07:41 Iron Polysaccharide Complex 150 Mg Capsule PO 04/17/22 08:59 150 mg QAM RODDY Administration Potassium Chloride 20 meq 03/19/22 21:00 03/25/22 08:50 Potassium Chloride Crtab 20 Meq Tabcr PO 04/18/22 20:59 20 meq BID RODDY Administration Vitamin D 2,000 units 03/18/22 09:00 03/25/22 07:41 Cholecalciferol 1,000 Units 25 Mcg Tab PO 04/17/22 08:59 2,000 units QAM RODDY Administration PG Care Time/CCT Total # of Minutes Spent Total Time Spent with Patient: Total time spent is greater than 50% in coordination of care (as documented) at patient's floor/unit and/or counseling patient: Coding Level of Care Code 05575 Subseq Hosp Care Lvl 2 Diagnoses MRSA bacteremia R78.81; B95.62 Hypoxia R09.02 Chronic kidney disease (CKD) N18.9 Pruritus L29.9 Elevated troponin R77.8 Acute leg pain M79.606 Laterality: unspecified laterality Anemia D64.9 Anemia type: unspecified type Cirrhosis K74.60 Chronic heart failure with preserved ejection fraction (HFpEF) I50.32 Hyperlipidemia E78.5 History of gout Z87.39 Depression with anxiety F41.8 Cerebrovascular disease I67.9 Atrial fibrillation I48.91 Atrial fibrillation type: unspecified Obstructive sleep apnea G47.33 Hypothyroidism E03.9 Hypothyroidism type: unspecified COPD (chronic obstructive pulmonary disease) J44.9 GERD (gastroesophageal reflux disease) K21.9 Esophagitis presence: esophagitis presence not specified Diabetes mellitus, type II E11.9 Hypertension I10 (1) Acute leg pain Laterality: unspecified laterality Qualified Code(s): M79.606 - Pain in leg, unspecified (2) Anemia Anemia type: unspecified type Qualified Code(s): D64.9 - Anemia, unspecified (3) Atrial fibrillation Atrial fibrillation type: unspecified Qualified Code(s): I48.91 - Unspecified atrial fibrillation (4) Hypothyroidism Hypothyroidism type: unspecified Qualified Code(s): E03.9 - Hypothyroidism, unspecified (5) GERD (gastroesophageal reflux disease) Esophagitis presence: esophagitis presence not specified Qualified Code(s): K21.9 - Gastro-esophageal reflux disease without esophagitis
[2022-03-25] MEDS: amLODIPine BESYLATE 5 MG TAB PO SCH (20:19)
[2022-03-25] MEDS: MIRTAZAPINE TAB 15 MG TAB PO SCH (20:19)
[2022-03-25] MEDS: EUCERIN CR 120 GM JAR EXT PRN (20:21)
[2022-03-25] MEDS: ALBUTEROL HFA 8 GM INHALER INH SCH (20:40)
[2022-03-26] MEDS: ACETAMINOPHEN 325 MG TAB PO PRN (01:51)
[2022-03-26] MEDS: LEVOTHYROXINE SODIUM 50 MCG TABLET PO SCH (05:45)
[2022-03-26] MEDS: ALBUTEROL HFA 8 GM INHALER INH SCH ×2 (08:27→20:54)
[2022-03-26] MEDS: allopurinoL 300 MG TAB PO SCH (09:10)
[2022-03-26] MEDS: BUMETANIDE 1 MG TAB PO SCH ×2 (09:10→16:27)
[2022-03-26] MEDS: APIXABAN 2.5 MG TAB PO SCH ×2 (09:11→20:33)
[2022-03-26] MEDS: DULoxetine HCL 30 MG CAP PO SCH (09:11)
[2022-03-26] MEDS: CHOLECALCIFEROL 1,000 UNITS 25 MCG TAB PO SCH (09:11)
[2022-03-26] MEDS: CLOPIDOGREL BISULFATE 75 MG TAB PO SCH (09:11)
[2022-03-26] MEDS: PANTOprazole 40 MG TAB PO SCH (09:11)
[2022-03-26] MEDS: DULoxetine HCL 60 MG CAP PO SCH (09:11)
[2022-03-26] MEDS: MAGNESIUM OXIDE 400 MG TAB PO SCH ×2 (09:11→20:30)
[2022-03-26] MEDS: IRON POLYSACCHARIDE COMPLEX 150 MG CAPSULE PO SCH (09:11)
[2022-03-26] MEDS: ISOSORBIDE MONO EXTENDED REL 30 MG TABCR PO SCH (09:11)
[2022-03-26] MEDS: METOPROLOL SUCC 50MG EXT REL TAB PO SCH ×2 (09:11→20:32)
[2022-03-26] MEDS: POTASSIUM CHLORIDE CRTAB 20 MEQ TABCR PO SCH ×3 (09:17→20:30)
--- NOTE | 2022-03-26 11:23 | CT Scan Report ---
CT OF THE LUMBAR SPINE CLINICAL HISTORY: Lower back pain. Bacteremia. Rule out stimulator infection. COMPARISON STUDY: Lumbar spine CT August 03, 2020. TECHNIQUE: Helical axial images of the lumbar spine were obtained. Sagittal and coronal reconstruct ions were viewed. Automated exposure control was utilized for the study. A dose lowering technique was utilized adhering to the principles of ALARA. FINDINGS: For purposes of numbering on this exam, the L5-S1 disc space is assigned to axial image 302 of 402. Mild dextroscoliosis of the lumbar spine has progressed. A mild compression fracture of the superior endplate of L3 is new since CT of August 03, 2020. However, this appears chronic. There is an old L1 compression fracture. There is no acute lumbar spine fracture. Irregularity along the superio r endplate of L3 is noted. However, there is associated sclerosis and vacuum disc phenomenon. Therefo re, this is unlikely to be infectious. Paravertebral soft tissues are unremarkable by CT. There is no evidence for discitis or osteomyelitis by CT. Sacral bladder stimulator lead is noted. The battery p ack is not entirely imaged. There is no fluid along the stimulator lead. Bilateral pleural effusions, right larger left, are partially imaged. Severe multilevel degenerative changes are again noted with multilevel disc space narrowing, facet arthrosis and osteophytosis. These are most pronounced at the L4-L5 level. IMPRESSION: 1. Sacral bladder stimulator lead in place. No fluid along the stimulator lead or other CT findings t o suggest associated infection. Battery pack partially imaged. Visualized soft tissues unremarkable. 2. L3 compression fracture which is new since CT of August 03, 2020 but likely chronic. Irregularity o f the superior endplate of L3. This is likely degenerative/posttraumatic. An infectious etiology is considered less likely given the CT appearance. 3. Severe multilevel degenerative changes within the lumbar spine. 4. Bilateral pleural effusions, right larger than left. ACT 112: Negative or not required by law. Electronically signed by: Jeremy Gabriel M.D. 03/26/2022 11:21 AM
--- NOTE | 2022-03-26 11:48 | Infectious Disease Progress Nt ---
Date of Service March 26, 2022 Assessment & Plan (1) MRSA bacteremia: (2) CKD (chronic kidney disease): (3) Pruritus: (4) COPD exacerbation: Plan This is an 87 year old female with pmh of cad, diastolic HF, Atrial fibrillation on Eliquis, CKD, hypothyroidism, dm2, cirrhosis, severe skin itching , vascular insufficiency who presents to the ED on 03/17/22 with increased shortness of breath and RLE pain. Shortness of breath is worse with exertion and associated with a dry cough. She lives in assisted living but denies any known sick contacts. She denies productive cough, fever, chills, nausea, vomiting, chest pain, joint pain, change in urine or bowel habits. recent falls or trauma to skin. She endorses itching her skin and has some scabs secondary to this. She was initially found to be in respiratory distress and hypoxic by EMS and placed on cpap. In the Ed, she was afebrile with BP 155/70, RR 40, HR 89 and 100 % 02 sat on CPAP. She was switched to Bipap for comfort and than 4 LNC Labs were noted for a WBc of 9.9 , Cr 1.5, procal 0.09, and negative covid, Influenza, and RSV testing . Repeat Viral respiratory panal + for RSV. CXr showed mild central pulmonary vascular congestion. R femur Xray was unremarkable and LE doppler was negative for DVt. She was started on azithromycin/ steroids for possible COPD exacerbation with mild chf component. She was continued on home dose of Bumex. Her respiratory status improved and she was weaned to room air. Her hospital course was c/b 1/4 MRSA bacteremia on 03/17. Repeat blood cultures from 03/21 are sterile. She denies hardware, prosthetics but has a sacral stimulator on imaging. A TTE done 03/21 is without valve vegetations Id consulted for evaluation of MRSA bacteremia Micro: BC 03/17 1/4+ mrsa Mrsa screen 03/17 and 03/21 positive Bc 03/21 Sterile MRSA RX M.I.C. --- --------- Clindamycin R >4 Daptomycin S 1 Erythromycin R >4 Oxacillin R >2 Rifampin S<=1 Tetracycline S<=4 Trimeth/Sulfa S<=0.5/9.5 Vancomycin S 2 S = SENSITIVE I = INTERMEDIATE R = Respiratory PCR panel+ RSV ABx: azithromycin 03/17-03/21 vancomycin 03/19- 03/26 vanco trough 03/20-24.2, random level 03/22 19.6 Daptomycin 03/26 - ongoing 1. Mrsa bacteremia of unknown etiology possible sources: skin vs endocarditis ( has ? embolic phenomena on right 4th toe nail bed vs toe nail trauma) - denies hardware, or prosthetics. However per review of chart she has history of urinary electronic stimulator in place- sacral stimulator seen on pelvis xray done on 02/15/22. She has no prosthetic joints or heart valves - multiple skin disruptions:abrasions, scratched skin, dried wounds, excessive finger nail bitting with dystrophic damaged finger nail beds - left anterior swanson with open wound - mild drainage, tender - nicks on toes , but one area with ? splinter hemorrhage vs nail bed trauma - TTE on 03/21 is negative for vegetation,mod- severe TR , mild - mod MR - no joint pain or effusions on exam - no central lines prior to pICC placed 03/26 - esr 14 - cards and patient do not want to pursue Jorge Luis 2. Chronic skin wounds, abrasions, history of MRSA positive WC -per review of micro data has had+ MRSA wound cultures in past ( wc + MRSA, 12/27/20 and 08/19/18) - no deep wounds or probing to bone. 3. Severe finger nail biting 4. Acute hypoxic respiratory failure- resolved cpap-->Bipap---> 4l NC ---> now on RA thought to be 2/2 COPD exacerbation triggered by rsv infection Covid,flu, rsv negativeRSV+ on pcr No infiltrate on cxr to suggest bacterial pna 5. Sacral stimulator seen on imaging from 02/15/22. - urinary electronic stimulator in place- pt unclear why she has it.Denies ab pain,urinary symptoms or back pain. -Ct lumbar spine from 03/26/22 reviewed. Sacral bladder stimulator lead is noted. The battery pack is not entirely imaged. There is no fluid along the stimulator lead to suggest infection - per d/w son at bedside on 03/26 - stimulator has been in place for "years"- no longer working. Pt has refused removal 6. Ckd 7. mild bl inguinal candidiasis 8. Chronic pruritus - per son her pcp believes this may from ? cirrhosis. 9. leukocytosis- resolved Discussion A possible source for the 04/09 MRSA bacteremia on 03/17 is the skin. Staph aureus is part of skin floraShe has a history of MRSA + wound cultures in past ( 2018 and 2020). She has chronic pruritus and repeatedly scratches her skin, which has led to chronic wounds. She excessively bites her finger nails and has uneven, dystrophic, uneven nail beds with loosened and missing nails on some fingers. She has multiple dried lesions on lower extremity. There is an area of mild TTP and slight drainage from area of abraded skin on the left anterior calf. There is a bluish discoloration that is blanchable on the plantar side of R great toe, the Left 3rd toe is mildly red and tender to touch. However on the R 4th toe, there is what appears to be a ?splinter hemorrhage on the nail bed ? c/f possible embolic phenomena vs nail trauma Recommendations Given bacteremia and ? splinter hemorrhage, would pursue JORGE LUIS to rule out endocarditis. However per d/w with her director of veterans affairs, Dr Roland( also follows her outpt) on 03/25, he feels her fragile state and comorbidities put her at high risk if JORGE LUIS done and does not recommend it. He follows her outpatient and feels that endocarditis is not likely Additionally, patient does want to pursue JORGE LUIS for definitive rule out of endocarditis . TTE done 03/21 did not reveal valve vegetation. BC cleared as of 03/21 IV vancomycin changed to Daptomycin change from 6mg iv q24 to 8 mg/kg IV 48given renal function and ease of dosing,( crcl 20.4, gfr 30.5, cr 1.54 on 03/25 ) I discussed dapto dosing with pharmacy today and they agree with this dose. BASELINE CPK 38 -Continue wound care inpatient and outpatient for control of possible source of introduction of MRSA - Address pruritus, as discussed above. -miconazole powder bid ( alteratives; nystatin or clotrimazole) to bl inguinal area. plan to treat forprolonged period--minimum of 4 weeks of Daptomycin 8 mg kg IV q48 ( based on renal function) from sterile BCas we can not rule out endovascular infection, and she has hardware in place ( stimulator). Since only / total bottles +, bacteremia cleared quickly, it seems less likely an endovascular infection and possibly secondary to skin as she presented with pain at abraded skin site and has multiple skin abrasions, chronic wounds, skin nicks However i cant completely explain the lesion on her toe nail bed ( ?splinter hemorrhage or just trauma to toe nail?--admits to stubbing and nicking her toe). Ct lumbar spine done today shows no [place] evidence of infection. She has no physical exam findings to suggest infection or involvement of device . Based on the above a longer duration of abx recommended. Pruritis should be addressed ( etiology not completely elucidated). The chronic disruption of skin puts her at risk for continued introduction of bacteria into soft tissue--> blood--> sepsis , seeding her stimulator, deep seeded infections. I discussed the need to control scratching of the skin , aggressive wound care and sequela of continued process with pt and son. Both verbalized understanding and agree with extended course of IV abx. She is s/p PiCC placement. -tentative end date for Daptomycin is 04/18/22 ( 4 weeks)-- maximum 6 weeks ( 05/02/22) . Baseline CK is 38. -At 3 weeks, prior to abx completion , should follow up with PCP to evaluate wounds for healing. if still open complete maximum duration of 6 weeks of abx and end on 05/02/22. If all closed and dry can stop abx at 4 weeks on 04/18/22. -Repeat BC one week post completion of antibiotics to ensure BC clearance. -WEEKLY safety labs--cbc with diff, BMP, LFt AND CPK while on IV daptomycin -labs should be reviewed and monitored by PCP. Daptomycin adverse effects include myopathy, peripheral neuropathy, and eosinophilic pneumonia. Monitor closely. Recommendation d/w son and pt at bedside Also communicated recs to primary te am,Dr. Arce. Thank you for allowing me to participate in the care of your patient. ID will continue to follow the patient with you. Rabia Dupont MD, MPH [facility] Admission and Anticipated Discharge Date Admission Date: March 17, 2022 Subjective Subsequent visit was provided via telemedicine using two-way real-time interactive telecommunication between the patient and the telemedicine provider. For the duration of the visit, the provider was performing the assessment from a different facility than the patient. This includesuse of bluetooth stethoscope forauscultationperformed by the telepresenter that the telemedicine provider can hear if described in the physical exam. Property Claims Adjuster contact information: Please call [facility] Center . (Phone Number For Physician Use Only) After establishing a telemedicine visit, patient was: Patient/authorized rep acknowledged consent and understanding and Gave permission to continue telehealth session Subsequent Time Spent w Inpatient: 35 minutes She offers no new complaint. She denies chest pain, SOB, fever, abd pain, back pain or change in urine habits. Picc line just placed. No pain at site, but has some bleeding. Peports less LE pain Has dry cough . Her son is at bedside and provides additional history; reports she has had chronic itching for several years. has devloped MRSa skin infections in the past. Her sacral stimulator was placed many years ago but no longer works. Pt has refused removal. She was recently diagnosed with cirrhosis and her pcp believes it may be the the reason for the pruritus. Review of System LE pain improving, dry cough Physical Exam Constitutional: NAD Eyes: EOMI Neck: supple Respiratory: No increased work of breathing Gastrointestinal (Abdomen): soft, Non tender, not distended, No guarding, no CVA tenderness, No suprapubic tenderness Musculoskeletal: Moves all extremities. No joint effusions. No spinal tenderness, 1-2 + LE edema Skin: scabbed lesion on BL UE BL LE venous stasis changes, LE chronic dried crusted wounds. RLE crusted wound with surrounding blanchable erythema. Not tender or warm. Left anterior swanson with area of abraded skin , less tender to touch, not warm. No drainage right great toe plantar surface with faint bruise. Several scabs on right toes. R 4th toenail with what appears to be a splinter hemorrhages vs nail ed trauma. Left 3rd toe is mildly red and tender to touch, fingernail on both hands severely bitten , dystrophic appearing nails and dry appeaing cuticles - no evidene of active infection . Left UE picc recently placed. No insertion site ttp. + frank insertion bleeding Neurologic: awake, alert and oriented times 3. Psychiatric: Appropriate, cooperative Results & Data ([facility]) Vital Signs (Past 12 Hours) Vital Signs Temp Pulse Resp BP Pulse Ox O2 Del Method 03/26/22 08:28 65 16 90 Room Air 03/26/22 07:44 Room Air 03/26/22 07:26 36.7 C 67 16 137/82 94 Room Air Laboratory Results Laboratory Results - last 48 hr 03/25/22 03/25/22 03/25/22 09:27 09:27 09:27 WBC 9.32 RBC 2.44 L Hgb 8.5 L Hct 27.3 L MCV 111.9 H MCH 34.8 H MCHC 31.1 L RDW Std Deviation 89.9 H RDW Coeff of Talia 23.6 H Plt Count 244 Immature Gran % (Auto) 4.4 Neut % (Auto) 78.5 Lymph % (Auto) 6.3 [place] % (Auto) 8.4 Eos % (Auto) 1.8 Baso % (Auto) 0.6 Neut # (Auto) 7.31 H Lymph # (Auto) 0.59 L [place] # (Auto) 0.78 Eos # (Auto) 0.17 Baso # (Auto) 0.06 Immature Gran # (Auto) 0.41 H Absolute Nucleated RBC 0.32 H Nucleated RBC % (auto) 3.4 Polychromasia 1+ Poikilocytosis Present Anisocytosis Present Tear Drop Cells 1+ Ovalocytes 3+ ESR 14 Sodium 136 Potassium 3.3 L Chloride 92 L Carbon Dioxide 39 H Anion Gap 5 BUN 48 H Creatinine 1.54 H Est Cr Clr Drug Dosing 20.4 Est GFR ( Amer) 35.3 Est GFR (Non-Af Amer) 30.5 BUN/Creatinine Ratio 31.2 H Glucose 279 H Calcium 8.3 L Vancomycin Trough 03/25/22 11:34 WBC RBC Hgb Hct MCV MCH MCHC RDW Std Deviation RDW Coeff of Talia Plt Count Immature Gran % (Auto) Neut % (Auto) Lymph % (Auto) [place] % (Auto) Eos % (Auto) Baso % (Auto) Neut # (Auto) Lymph # (Auto) [place] # (Auto) Eos # (Auto) Baso # (Auto) Immature Gran # (Auto) Absolute Nucleated RBC Nucleated RBC % (auto) Polychromasia Poikilocytosis Anisocytosis Tear Drop Cells Ovalocytes ESR Sodium Potassium Chloride Carbon Dioxide Anion Gap BUN Creatinine Est Cr Clr Drug Dosing Est GFR ( Amer) Est GFR (Non-Af Amer) BUN/Creatinine Ratio Glucose Calcium Vancomycin Trough 19.2 Diagnostic Findings Lumbar Spine CT 03/26/22 09:57 CT OF THE LUMBAR SPINE CLINICAL HISTORY: Lower back pain. Bacteremia. Rule out stimulator infection. COMPARISON STUDY: Lumbar spine CT August 03, 2020. TECHNIQUE: Helical axial images of the lumbar spine were obtained. Sagittal and coronal reconstructions were viewed. Automated exposure control was utilized for the study. A dose lowering technique was utilized adhering to the principles of ALARA. FINDINGS: For purposes of numbering on this exam, the L5-S1 disc space is assigned to axial image 302 of 402. Mild dextroscoliosis of the lumbar spine has progressed. A mild compression fracture of the superior endplate of L3 is new since CT of August 03, 2020. However, this appears chronic. There is an old L1 compression fracture. There is no acute lumbar spine fracture. Irregularity along the superior endplate of L3 is noted. However, there is associated sclerosis and vacuum disc phenomenon. Therefore, this is unlikely to be infectious. Paravertebral soft tissues are unremarkable by CT. There is no evidence for discitis or osteomyelitis by CT. Sacral bladder stimulator lead is noted. The battery pack is not entirely imaged. There is no fluid along the stimulator lead. Bilateral pleural effusions, right larger left, are partially imaged. Severe multilevel degenerative changes are again noted with multilevel disc space narrowing, facet arthrosis and osteophytosis. These are most pronounced at the L4-L5 level. IMPRESSION: 1. Sacral bladder stimulator lead in place. No fluid along the stimulator lead or other CT findings to suggest associated infection. Battery pack partially imaged. Visualized soft tissues unremarkable. 2. L3 compression fracture which is new since CT of August 03, 2020 but likely chronic. Irregularity of the superior endplate of L3. This is likely degenerative/posttraumatic. An infectious etiology is considered less likely given the CT appearance. 3. Severe multilevel degenerative changes within the lumbar spine. 4. Bilateral pleural effusions, right larger than left. ACT 112: Negative or not required by law. Electronically signed by: Jeremy Gabriel M.D. 03/26/2022 11:21 AM Microbiology 03/17/22 14:57 Blood Aerobic Blood Culture - Final Staph aureus MRSA 03/17/22 14:57 Blood Anaerobic Blood Culture - Final No growth in Anaerobic bottle after 5 days. 03/21/22 15:20 Blood Aerobic Blood Culture - Preliminary No growth in Aerobic bottle after 48 hours. 03/21/22 15:20 Blood Anaerobic Blood Culture - Final 03/21/22 15:16 Blood Aerobic Blood Culture - Preliminary No growth in Aerobic bottle after 48 hours. 03/21/22 15:16 Blood Anaerobic Blood Culture - Final 03/17/22 14:59 Blood Aerobic Blood Culture - Final No growth in Aerobic bottle after 5 days. 03/17/22 14:59 Blood Anaerobic Blood Culture - Final Medications Administered Home Medications Medication Instructions Recorded Confirmed Last Taken cholecalciferol (vitamin D3) 25 2,000 unit PO QAM 05/11/20 03/17/22 04/22/21 mcg (1,000 unit) tablet (Vitamin D3) polyethylene glycol 3350 17 8.5 g PO DAILY PRN Constipation 01/28/21 03/17/22 Unknown gram/dose oral powder (Miralax) vit C 226 mg-vit E 90 mg-copper 1 cap PO BID 02/01/21 03/17/22 04/22/21 0.8 mg-zinc oxide-lutein 5 mg capsule (PreserVision Lutein) allopurinol 100 mg tablet 300 mg PO QAM #90 tabs 12/16/21 03/17/22 Unknown (Zyloprim) apixaban 2.5 mg tablet (Eliquis) 2.5 mg PO BID #180 tabs 12/16/21 03/17/22 Unknown bumetanide 2 mg tablet 2 mg PO BID #60 tabs 12/16/21 03/17/22 Unknown clopidogrel 75 mg tablet (Plavix) 75 mg PO QAM #90 tabs 12/16/21 03/17/22 Unknown digoxin 125 mcg (0.125 mg) tablet 125 mcg PO Q2D #15 tabs 12/16/21 03/17/22 Unknown (Digitek) duloxetine 30 mg capsule,delayed 30 mg PO QAM #90 caps 12/16/21 03/17/22 Unknown release (Cymbalta) duloxetine 60 mg capsule,delayed 60 mg PO QAM #90 caps 12/16/21 03/17/22 Unknown release (Cymbalta) isosorbide mononitrate 30 mg 30 mg PO QAM #90 tabs 12/16/21 03/17/22 Unknown tablet,extended release 24 hr levothyroxine 50 mcg tablet 50 mcg PO DAILYBB #30 tabs 12/16/21 03/17/22 Unknown (Synthroid) magnesium oxide 400 mg PO BID #180 tabs 12/16/21 03/17/22 Unknown metoprolol succinate 50 mg 150 mg PO BID #540 tabs 12/16/21 03/17/22 Unknown tablet,extended release 24 hr (Toprol XL) mirtazapine 15 mg tablet (Remeron) 15 mg PO HS #30 tabs 12/16/21 03/17/22 Unknown pantoprazole 40 mg tablet,delayed 40 mg PO QAM #90 tabs 12/16/21 03/17/22 Unknown release (Protonix) polysaccharide iron complex 150 mg 150 mg PO QAM #90 caps 12/16/21 03/17/22 Unknown iron capsule (Ferrex) potassium chloride 20 mEq 10 meq PO BID #180 tabs 12/16/21 03/17/22 Unknown tablet,extended release (K-Tab) insulin glargine 100 unit/mL (3 28 unit (0.28 mL) subcut HS #15 mL 12/18/21 03/17/22 Unknown mL) subcutaneous pen (Lantus Solostar U-100 Insulin) glucagon 1 mg solution for 1 mg subcut Q20M PRN hypoglycemia 01/02/22 03/17/22 Unknown injection (Glucagon Emergency Kit) #1 ea nitroglycerin 0.3 mg sublingual 0.3 mg sublingual Q5M PRN Chest 01/17/22 03/17/22 Unknown tablet Pain nystatin 100,000 unit/gram topical 1 applic topical TID 2 weeks #30 01/21/22 03/17/22 Unknown cream grams insulin aspart U-100 100 unit/mL 7 - 10 unit (0.07 - 0.1 mL) subcut 02/04/22 03/17/22 Unknown (3 mL) subcutaneous pen (Novolog TIDM #45 mL Flexpen U-100 Insulin aspart) clobetasol 0.05 % topical cream 1 applic topical BID #30 grams 02/19/22 03/17/22 Unknown guaifenesin 600 mg tablet, 600 mg PO BID PRN cough #60 tabs 03/13/22 03/17/22 Unknown extended release 12 hr Active Medications Generic Name Dose Route Start Last Admin Trade Name Freq PRN Reason Stop Dose Admin Acetaminophen 650 mg 03/17/22 19:19 03/26/22 01:51 Acetaminophen 325 Mg Tab PO 04/16/22 19:18 650 mg Q4H PRN Administration Pain (1,2,3) Or Fever Albuterol 3 ml 03/18/22 09:24 03/25/22 18:34 Albut/Ipratrop 3mg/0.5mg Neb 3 Ml Vial NEB 04/16/22 18:59 3 ml Q4R PRN Administration Shortness Of Breath Or Wheezing Protocol Albuterol 2 puffs 03/25/22 19:36 03/26/22 08:27 Albuterol Hfa 8 Gm Inhaler INH 04/24/22 19:35 2 puffs BIDR RODDY Administration Allopurinol 300 mg 03/18/22 09:00 03/26/22 09:10 Allopurinol 300 Mg Tab PO 04/17/22 08:59 300 mg QAM RODDY Administration Amlodipine Besylate 10 mg 03/24/22 21:00 03/25/22 20:19 Amlodipine Besylate 5 Mg Tab PO 04/23/22 20:59 10 mg HS RODDY Administration Apixaban 2.5 mg 03/17/22 21:00 03/26/22 09:11 Apixaban 2.5 Mg Tab PO 04/16/22 20:59 2.5 mg BID RODDY Administration Benzonatate 100 mg 03/19/22 00:26 03/26/22 12:50 Benzonatate 100 Mg Capsule PO 04/18/22 00:25 100 mg TID PRN Administration Cough Bumetanide 2 mg 03/17/22 19:45 03/26/22 09:10 Bumetanide 1 Mg Tab PO 04/16/22 19:44 2 mg BID17 RODDY Administration Clopidogrel Bisulfate 75 mg 03/18/22 09:00 03/26/22 09:11 Clopidogrel Bisulfate 75 Mg Tab PO 04/17/22 08:59 75 mg QAM RODDY Administration Diclofenac Sodium 2 gm 03/22/22 17:26 03/24/22 02:11 Diclofenac Sod 1% Gel 100 Gm Tube EXT 04/21/22 17:25 2 gm Q4H PRN Administration Pain Protocol Digoxin 0.125 mg 03/18/22 16:00 03/24/22 17:25 Digoxin 0.125 Mg Tab PO 04/17/22 15:59 0.125 mg Q2D@1600 RODDY Administration Diphenhydramine HCl 50 mg 03/18/22 12:34 03/20/22 05:46 Diphenhydramine Capsule 25 Mg Cap PO 04/17/22 12:33 50 mg Q6H PRN Administration Itching Duloxetine HCl 60 mg 03/18/22 09:00 03/26/22 09:11 Duloxetine Hcl 60 Mg Cap PO 04/17/22 08:59 60 mg QAM RODDY Administration Duloxetine HCl 30 mg 03/18/22 09:00 03/26/22 09:11 Duloxetine Hcl 30 Mg Cap PO 04/17/22 08:59 30 mg QAM RODDY Administration Guaifenesin 600 mg 03/17/22 19:19 03/20/22 08:03 Guaifenesin 600 Mg Tabcr PO 04/16/22 19:18 600 mg BID PRN Administration cough Hydrocortisone 1 appln 03/20/22 03:10 03/22/22 17:55 Hydrocortisone 1% Crm 30 Gm Tube EXT 04/19/22 03:09 1 appln BID PRN Administration rash or itching Daptomycin 450 mg/ Syringe 9 mls @ 4.5 mls/min 03/26/22 12:00 03/26/22 12:42 IV 03/26/22 14:00 4.5 mls/min Q24H RODDY Administration Protocol Insulin Glargine 10 units 03/26/22 09:30 03/26/22 12:42 Lantus Per Unit Charge SQ 04/25/22 09:29 10 units BID RODDY Administration Isosorbide Mononitrate 30 mg 03/18/22 09:00 03/26/22 09:11 Isosorbide [place] Extended Rel 30 Mg Tabcr PO 04/17/22 08:59 30 mg QAM RODDY Administration Levothyroxine Sodium 50 mcg 03/18/22 06:30 03/26/22 05:45 Levothyroxine Sodium 50 Mcg Tablet PO 04/17/22 06:29 50 mcg DAILYBB RODDY Administration Magnesium Oxide 400 mg 03/17/22 21:00 03/26/22 09:11 Magnesium Oxide 400 Mg Tab PO 04/16/22 20:59 400 mg BID RODDY Administration Metoprolol Succinate 150 mg 03/17/22 21:00 03/26/22 09:11 Metoprolol Succ 50mg Ext Rel Tab PO 04/16/22 20:59 150 mg BID RODDY Administration Mirtazapine 15 mg 03/17/22 21:00 03/25/22 20:19 Mirtazapine Tab 15 Mg Tab PO 04/16/22 20:59 15 mg HS RODDY Administration Multi-Ingredient Cream 1 appln 03/20/22 10:14 03/25/22 20:21 Eucerin Cr 120 Gm Jar EXT 04/19/22 10:13 1 appln [id number] PRN Administration Itching Pantoprazole Sodium 40 mg 03/18/22 09:00 03/26/22 09:11 Pantoprazole 40 Mg Tab PO 04/17/22 08:59 40 mg QAM RODDY Administration Polyethylene Glycol 8.5 gm 03/17/22 19:19 03/25/22 07:40 Polyethylene (Miralax) 17 Gm Pack PO 04/16/22 19:18 8.5 gm DAILY PRN Administration Constipation Polysaccharide Iron Complex 150 mg 03/18/22 09:00 03/26/22 09:11 Iron Polysaccharide Complex 150 Mg Capsule PO 04/17/22 08:59 150 mg QAM RODDY Administration Vitamin D 2,000 units 03/18/22 09:00 03/26/22 09:11 Cholecalciferol 1,000 Units 25 Mcg Tab PO 04/17/22 08:59 2,000 units QAM RODDY Administration (1) CKD (chronic kidney disease) Chronic kidney disease stage: unspecified stage Qualified Code(s): N18.9 - Chronic kidney disease, unspecified
[2022-03-26] MEDS ORDERED: DAPTOmycin 450 MG in SYRINGE 0 ML IV SCH (12:00)
[2022-03-26] MEDS: LANTUS PER UNIT CHARGE SQ SCH ×2 (12:42→20:40)
[2022-03-26] MEDS: BENZONATATE 100 MG CAPSULE PO PRN ×2 (12:50→20:41)
--- NOTE | 2022-03-26 13:02 | XRay Report ---
XR chest 1V portable CLINICAL HISTORY: PICC placement TECHNIQUE: Single frontal radiograph of the chest was obtained. Comparison: Comparison is made to chest radiograph 05/20/2021 FINDINGS: A left PICC terminates at the lower SVC. Cardiomegaly is noted. The lungs are clear. No evidence of p leural effusion or pneumothorax. IMPRESSION: A left PICC terminates at the lower SVC. ACT 112: Negative or not required by law. Electronically signed by: Jhoan Cox M.D. 03/26/2022 1:01 PM
--- NOTE | 2022-03-26 14:14 | Hospitalist Progress Note ---
Date of Service March 26, 2022 Assessment & Plan (1) MRSA bacteremia: Plan: Vancomycin has been switched to daptomycin. Appreciate infectious disease recommendations. Follow-up blood cultures are negative. CT scan reveals partial visualization of the bladder stimulator and lead with no evidence of infection. TTE negative for evidence of vegetations. ID Dr Dupont suspects possible skin source because the patient scratches herself continually. Low- dose cyproheptadine ordered for the pruritus. Plan now to give 4 weeks of daptomycin. PICC line has been placed in the left upper extremity. (2) Hypoxia: Plan: Acute hypoxic respiratory failure has now resolved. She is stable on room air. Was felt to be COPD exacerbation. Now resolved and baseline (3) Chronic kidney disease (CKD): Plan: ARF on CKD stage IIIon home dose of Bumex. Mild. Home lisinopril being held. Metoprolol 150 twice daily ongoing. Vanco dosing being adjusted by pharmacy and that is appreciated (4) Pruritus: Plan: No rash. Pruritus is chronic. Low-dose cyproheptadine has been started today, March 26. She does not have jaundice, and I doubt her pruritus is associated with any underlying chronic liver disease. (5) Elevated troponin: Plan: No evidence of acute coronary syndrome. Telemetry revealed atrial fibrillation with controlled rate. Telemetry has been discontinued. We will follow (6) Acute leg pain: Plan: Resolved . Right leg venous Doppler negative for DVT (7) Anemia: Plan: Macrocytic in the presence of normal B12 and folate as recently as 03/18/22. 1 g drop in the last 4-month (8) Cirrhosis: Plan: Currently stable. Continue current management. Etiology unclear and is a diagnosis before this admission (9) Chronic heart failure with preserved ejection fraction (HFpEF): Plan: BNP chronically elevated. This is chronic with no acute exacerbation this admission. Continue current medical management. Monitor intake and output. Bumex 2 mg twice daily with potassium added. History of CAD on isosorbide (10) Hyperlipidemia: Plan: Continue statin . Low-cholesterol diet (11) History of gout: Plan: Contihnue allopurinol (12) Depression with anxiety: Plan: Continue duloxetine and HS remeron (13) Cerebrovascular disease: Plan: Continue plavix (14) Atrial fibrillation: Plan: Rate controlled with current medical management. Not on telemetry. Continue Eliquis, metoprolol, Digoxin (15) Obstructive sleep apnea: Plan: HS CPAP ordered. Stable (16) Hypothyroidism: Plan: Continue levothyroxine . Stable (17) COPD (chronic obstructive pulmonary disease): Plan: Admitted with acute exacerbation. Now at baseline. Continue current medical management. Inhaler as needed (18) GERD (gastroesophageal reflux disease): Plan: Continue pantoprazole (19) Diabetes mellitus, type II: Plan: She had developed hypoglycemia earlier this admission. Lantus had been discontinued but now restarted today, March 26, at a lower dose. (20) Hypertension: Plan: Stable with current medical management . Metoprolol 150 twice daily home dose. Amlodipine 10 mg at bedtime started here. Plan She will need SNF placement at discharge to complete her 4-week course of intravenous daptomycin. SNF choices given by son today. Admission and Anticipated Discharge Date Admission Date: March 17, 2022 Subjective Alert and oriented. PICC line is now in place in the left arm. Vancomycin has been switched to daptomycin. CT scan reveals partial visualization of the bladder stimulator and lead with no evidence of infection. Potassium dosage has been uptitrated to correct mild hypokalemia. Low-dose Lantus started for hyperglycemia since she was taken off her insulin due to hypoglycemia earlier this admission. Awaiting eventual discharge to SNF facility when arrangements are finalized. Review of Systems Review of Systems: Constitutional-no fever or chills ENT-no blurred vision, no double vision, no epistaxis, no sore throat Respiratory-no cough, no wheezing, no shortness of breath Cardiac-no palpitations, no chest pain, no syncope GI-no nausea, vomiting, diarrhea, melena, hematochezia -no urinary retention, no urinary incontinence, no dysuria, no hematuria Musculoskeletal-no joint pain, no muscle tenderness. PICC line in place medial left upper extremity with some associated bleeding at the site Skin-no bruising, no rashes. Diffuse pruritus Neuro-no isolated weakness, no paresthesia, no weakness Psych-no depression, no anxiety Physical Exam Physical Exam: General-alert and oriented x3, no fevers, no chills HEENT-head atraumatic and normocephalic, pupils equal and reactive to light, extraocular muscles intact Neck-no lymphadenopathy or thyromegaly, trachea midline Chest-diminished breath sounds bilaterally. No rales, wheezing or rhonchi Cardiac-regular rate and rhythm, normal S1 and S2, no murmurs Abdomen-normal bowel sounds, nontender, no hepatosplenomegaly Extremities-no cyanosis, clubbing, or edema. PICC line now in place medial left upper extremity with some bleeding at the insertion site Neuro-cranial nerves II through XII intact, motor and sensory function within normal limits, strength symmetrical , no focal deficits Psych-normal affect, normal mood Results & Data Results & Data ([facility]) Vital Signs (Past 12 Hours) Vital Signs Temp Pulse Resp BP Pulse Ox O2 Del Method 03/26/22 08:28 65 16 90 Room Air 03/26/22 07:44 Room Air 03/26/22 07:26 36.7 C 67 16 137/82 94 Room Air PG Care Time/CCT Total # of Minutes Spent Total Time Spent with Patient: Total time spent is greater than 50% in coordination of care (as documented) at patient's floor/unit and/or counseling patient: Coding Level of Care Code 75044 Subseq Hosp Care Lvl 3 Diagnoses MRSA bacteremia R78.81; B95.62 Hypoxia R09.02 Chronic kidney disease (CKD) N18.9 Pruritus L29.9 Elevated troponin R77.8 Acute leg pain M79.606 Laterality: unspecified laterality Anemia D64.9 Anemia type: unspecified type Cirrhosis K74.60 Chronic heart failure with preserved ejection fraction (HFpEF) I50.32 Hyperlipidemia E78.5 History of gout Z87.39 Depression with anxiety F41.8 Cerebrovascular disease I67.9 Atrial fibrillation I48.91 Atrial fibrillation type: unspecified Obstructive sleep apnea G47.33 Hypothyroidism E03.9 Hypothyroidism type: unspecified COPD (chronic obstructive pulmonary disease) J44.9 GERD (gastroesophageal reflux disease) K21.9 Esophagitis presence: esophagitis presence not specified Diabetes mellitus, type II E11.9 Hypertension I10 (1) Acute leg pain Laterality: unspecified laterality Qualified Code(s): M79.606 - Pain in leg, unspecified (2) Anemia Anemia type: unspecified type Qualified Code(s): D64.9 - Anemia, unspecified (3) Atrial fibrillation Atrial fibrillation type: unspecified Qualified Code(s): I48.91 - Unspecified atrial fibrillation (4) Hypothyroidism Hypothyroidism type: unspecified Qualified Code(s): E03.9 - Hypothyroidism, unspecified (5) GERD (gastroesophageal reflux disease) Esophagitis presence: esophagitis presence not specified Qualified Code(s): K21.9 - Gastro-esophageal reflux disease without esophagitis
[2022-03-26] MEDS: CYPROHEPTADINE HCL 4 MG TAB PO SCH ×2 (16:24→20:32)
[2022-03-26] MEDS: DIGOXIN 0.125 MG TAB PO SCH (16:26)
[2022-03-26] MEDS: MIRTAZAPINE TAB 15 MG TAB PO SCH (20:33)
[2022-03-26] MEDS: amLODIPine BESYLATE 5 MG TAB PO SCH (20:33)
[2022-03-26] MEDS: NYSTATIN POWDER 15GM BTL EXT SCH (21:58)
[2022-03-27] MEDS: LEVOTHYROXINE SODIUM 50 MCG TABLET PO SCH (05:58)
[2022-03-27] MEDS: ALBUTEROL HFA 8 GM INHALER INH SCH ×2 (07:57→19:16)
[2022-03-27] MEDS: DULoxetine HCL 30 MG CAP PO SCH (08:45)
[2022-03-27] MEDS: DULoxetine HCL 60 MG CAP PO SCH (08:46)
[2022-03-27] MEDS: IRON POLYSACCHARIDE COMPLEX 150 MG CAPSULE PO SCH (08:46)
[2022-03-27] MEDS: ISOSORBIDE MONO EXTENDED REL 30 MG TABCR PO SCH (08:47)
[2022-03-27] MEDS: allopurinoL 300 MG TAB PO SCH (08:48)
[2022-03-27] MEDS: CLOPIDOGREL BISULFATE 75 MG TAB PO SCH (08:48)
[2022-03-27] MEDS: CHOLECALCIFEROL 1,000 UNITS 25 MCG TAB PO SCH (08:49)
[2022-03-27] MEDS: POTASSIUM CHLORIDE CRTAB 20 MEQ TABCR PO SCH ×3 (08:49→21:12)
[2022-03-27] MEDS: BUMETANIDE 1 MG TAB PO SCH ×2 (08:50→17:35)
[2022-03-27] MEDS: MAGNESIUM OXIDE 400 MG TAB PO SCH ×2 (08:51→21:08)
[2022-03-27] MEDS: METOPROLOL SUCC 50MG EXT REL TAB PO SCH ×2 (08:52→21:08)
[2022-03-27] MEDS: PANTOprazole 40 MG TAB PO SCH (08:53)
[2022-03-27] MEDS: CYPROHEPTADINE HCL 4 MG TAB PO SCH ×2 (08:54→21:08)
[2022-03-27] MEDS: APIXABAN 2.5 MG TAB PO SCH ×2 (08:54→21:08)
[2022-03-27] MEDS: LANTUS PER UNIT CHARGE SQ SCH ×2 (09:06→21:15)
[2022-03-27 09:37] LABS: Creatinine Clr Calc Pharmacy 20.5 ml/min; Est GFR (African American) 35.6 ml/min; Est GFR (Non-African American) 30.7 ml/min
[2022-03-27] MEDS ORDERED: COUGH DROP (SUGAR FREE) LOZ 24 LOZ/1 BOX BUCCAL ONE (10:18)
[2022-03-27] MEDS: BENZONATATE 100 MG CAPSULE PO PRN ×2 (10:22→21:08)
[2022-03-27] MEDS: NYSTATIN POWDER 15GM BTL EXT SCH ×2 (10:23→21:11)
--- NOTE | 2022-03-27 15:29 | Hospitalist Progress Note ---
Date of Service March 27, 2022 Assessment & Plan (1) MRSA bacteremia: Plan: Vancomycin has been switched to daptomycin. Appreciate infectious disease recommendations. Follow-up blood cultures are negative. CT scan reveals partial visualization of the bladder stimulator and lead with no evidence of infection. TTE negative for evidence of vegetations. ID Dr Dupont suspects possible skin source because the patient scratches herself continually. Low- dose cyproheptadine ordered for the pruritus has helped according to the patient. Plan to give 4 weeks of daptomycin. PICC line has been placed in the left upper extremity. (2) Hypoxia: Plan: Acute hypoxic respiratory failure has now resolved. She is stable on room air. Was felt to be COPD exacerbation. Now resolved and baseline (3) Chronic kidney disease (CKD): Plan: ARF on CKD stage IIIon home dose of Bumex. Mild. Home lisinopril being held. Metoprolol 150 twice daily ongoing. Vanco dosing being adjusted by pharmacy and that is appreciated (4) Pruritus: Plan: No rash. Pruritus is chronic. Low-dose cyproheptadine started on March 26 has helped with itching according to the patient. She does not have jaundice, and I doubt her pruritus is associated with any underlying chronic liver disease. (5) Elevated troponin: Plan: No evidence of acute coronary syndrome. Telemetry revealed atrial fibrillation with controlled rate. Telemetry has been discontinued. We will follow (6) Acute leg pain: Plan: Resolved. Right leg venous Doppler negative for DVT (7) Anemia: Plan: Macrocytic in the presence of normal B12 and folate as recently as 03/18/22. 1 g drop in the last 4-months (8) Cirrhosis: Plan: Currently stable. Continue current management. May be cryptogenic. She has not a drinker (9) Chronic heart failure with preserved ejection fraction (HFpEF): Plan: BNP chronically elevated. This is chronic with no acute exacerbation this admission. Continue current medical management. Monitor intake and output. Bumex 2 mg twice daily with potassium added. History of CAD on isosorbide (10) Hyperlipidemia: Plan: Continue statin . Low-cholesterol diet (11) History of gout: Plan: Contihnue allopurinol (12) Depression with anxiety: Plan: Continue duloxetine and HS remeron (13) Cerebrovascular disease: Plan: Continue plavix (14) Atrial fibrillation: Plan: Rate controlled with current medical management. Not on telemetry. Continue Eliquis, metoprolol, Digoxin (15) Obstructive sleep apnea: Plan: HS CPAP ordered. Stable (16) Hypothyroidism: Plan: Continue levothyroxine . Stable (17) COPD (chronic obstructive pulmonary disease): Plan: Admitted with acute exacerbation. Now at baseline. Continue current medical management. Use inhaler as needed (18) GERD (gastroesophageal reflux disease): Plan: Continue pantoprazole (19) Diabetes mellitus, type II: Plan: She had developed hypoglycemia earlier this admission. Lantus had been discontinued but then restarted on , March 26, at a lower dose. (20) Hypertension: Plan: Stable with current medical management . Metoprolol 150 twice daily home dose. Amlodipine 10 mg at bedtime started here. Plan She will need SNF placement at discharge to complete her 4-week course of intravenous daptomycin. Admission and Anticipated Discharge Date Admission Date: March 17, 2022 Subjective Alert and oriented. No new problems. The patient believes the cyproheptadine has helped with the itching. Glucose 194 this morning. We will recheck potassium level tomorrow morning. Review of Systems Review of Systems: Constitutional-no fever or chills ENT-no blurred vision, no double vision, no epistaxis, no sore throat Respiratory-no cough, no wheezing, no shortness of breath Cardiac-no palpitations, no chest pain, no syncope GI-no nausea, vomiting, diarrhea, melena, hematochezia -no urinary retention, no urinary incontinence, no dysuria, no hematuria Musculoskeletal-no joint pain, no muscle tenderness. PICC line in place medial left upper extremity is intact with no evidence of bleeding or infection Skin-no bruising, no rashes. Diffuse pruritus Neuro-no isolated weakness, no paresthesia, no weakness Psych-no depression, no anxiety Physical Exam Physical Exam: General-alert and oriented x3, no fevers, no chills HEENT-head atraumatic and normocephalic, pupils equal and reactive to light, extraocular muscles intact Neck-no lymphadenopathy or thyromegaly, trachea midline Chest-diminished breath sounds bilaterally. No rales, wheezing or rhonchi Cardiac-regular rate and rhythm, normal S1 and S2, no murmurs Abdomen-normal bowel sounds, nontender, no hepatosplenomegaly Extremities-no cyanosis, clubbing, or edema. PICC line now in place medial left upper extremity with no sign of bleeding or infection Neuro-cranial nerves II through XII intact, motor and sensory function within normal limits, strength symmetrical , no focal deficits Psych-normal affect, normal mood Results & Data Results & Data ([facility]) Vital Signs (Past 12 Hours) Vital Signs Temp Pulse Pulse Resp BP Pulse Ox O2 Del Method 03/27/22 07:57 80 22 92 Room Air 03/27/22 07:25 36.4 C L 68 18 149/73 H 93 Room Air Laboratory Results 03/25/22 09:27 03/27/22 09:04 PG Care Time/CCT Total # of Minutes Spent Total Time Spent with Patient: Total time spent is greater than 50% in coordination of care (as documented) at patient's floor/unit and/or counseling patient: Coding Level of Care Code 06235 Subseq Hosp Care Lvl 3 Diagnoses MRSA bacteremia R78.81; B95.62 Hypoxia R09.02 Chronic kidney disease (CKD) N18.9 Pruritus L29.9 Elevated troponin R77.8 Acute leg pain M79.606 Laterality: unspecified laterality Anemia D64.9 Anemia type: unspecified type Cirrhosis K74.60 Chronic heart failure with preserved ejection fraction (HFpEF) I50.32 Hyperlipidemia E78.5 History of gout Z87.39 Depression with anxiety F41.8 Cerebrovascular disease I67.9 Atrial fibrillation I48.91 Atrial fibrillation type: unspecified Obstructive sleep apnea G47.33 Hypothyroidism E03.9 Hypothyroidism type: unspecified COPD (chronic obstructive pulmonary disease) J44.9 GERD (gastroesophageal reflux disease) K21.9 Esophagitis presence: esophagitis presence not specified Diabetes mellitus, type II E11.9 Hypertension I10 (1) Acute leg pain Laterality: unspecified laterality Qualified Code(s): M79.606 - Pain in leg, unspecified (2) Anemia Anemia type: unspecified type Qualified Code(s): D64.9 - Anemia, unspecified (3) Atrial fibrillation Atrial fibrillation type: unspecified Qualified Code(s): I48.91 - Unspecified atrial fibrillation (4) Hypothyroidism Hypothyroidism type: unspecified Qualified Code(s): E03.9 - Hypothyroidism, unspecified (5) GERD (gastroesophageal reflux disease) Esophagitis presence: esophagitis presence not specified Qualified Code(s): K21.9 - Gastro-esophageal reflux disease without esophagitis
--- NOTE | 2022-03-27 16:13 | Infectious Disease Progress Nt ---
Date of Service March 27, 2022 Assessment & Plan (1) MRSA bacteremia: (2) CKD (chronic kidney disease): (3) Pruritus: (4) COPD exacerbation: Plan This is an 87 year old female with pmh of cad, diastolic HF, Atrial fibrillation on Eliquis, CKD, hypothyroidism, dm2, cirrhosis, severe skin itching , vascular insufficiency who presents to the ED on 03/17/22 with increased shortness of breath and RLE pain. Shortness of breath is worse with exertion and associated with a dry cough. She lives in assisted living but denies any known sick contacts. She denies productive cough, fever, chills, nausea, vomiting, chest pain, joint pain, change in urine or bowel habits. recent falls or trauma to skin. She endorses itching her skin and has some scabs secondary to this. She was initially found to be in respiratory distress and hypoxic by EMS and placed on cpap. In the Ed, she was afebrile with BP 155/70, RR 40, HR 89 and 100 % 02 sat on CPAP. She was switched to Bipap for comfort and than 4 LNC Labs were noted for a WBc of 9.9 , Cr 1.5, procal 0.09, and negative covid, Influenza, and RSV testing . Repeat Viral respiratory panal + for RSV. CXr showed mild central pulmonary vascular congestion. R femur Xray was unremarkable and LE doppler was negative for DVt. She was started on azithromycin/ steroids for possible COPD exacerbation with mild chf component. She was continued on home dose of Bumex. Her respiratory status improved and she was weaned to room air. Her hospital course was c/b 1/4 MRSA bacteremia on 03/17. Repeat blood cultures from 03/21 are sterile. She denies hardware, prosthetics but has a sacral stimulator on imaging. A TTE done 03/21 is without valve vegetations Id consulted for evaluation of MRSA bacteremia Micro: BC 03/17 1/4+ mrsa Mrsa screen 03/17 and 03/21 positive Bc 03/21 Sterile MRSA RX M.I.C. --- --------- Clindamycin R >4 Daptomycin S 1 Erythromycin R >4 Oxacillin R >2 Rifampin S<=1 Tetracycline S<=4 Trimeth/Sulfa S<=0.5/9.5 Vancomycin S 2 S = SENSITIVE I = INTERMEDIATE R = Respiratory PCR panel+ RSV ABx: azithromycin 03/17-03/21 vancomycin 03/19- 03/26 vanco trough 03/20-24.2, random level 03/22 19.6 Daptomycin 03/26 - ongoing 1. Mrsa bacteremia of unknown etiology possible sources: skin vs endocarditis ( has ? embolic phenomena on right 4th toe nail bed vs toe nail trauma) - denies hardware, or prosthetics. However per review of chart she has history of urinary electronic stimulator in place- sacral stimulator seen on pelvis xray done on 02/15/22. She has no prosthetic joints or heart valves - multiple skin disruptions:abrasions, scratched skin, dried wounds, excessive finger nail bitting with dystrophic damaged finger nail beds - left anterior swanson with open wound - mild drainage, tender - nicks on toes , but one area with ? splinter hemorrhage vs nail bed trauma - TTE on 03/21 is negative for vegetation,mod- severe TR , mild - mod MR - no joint pain or effusions on exam - no central lines prior to pICC placed 03/26 - esr 14 - cards and patient do not want to pursue Jorge Luis 2. Chronic skin wounds, abrasions, history of MRSA positive WC -per review of micro data has had+ MRSA wound cultures in past ( wc + MRSA, 12/27/20 and 08/19/18) - no deep wounds or probing to bone. 3. Severe finger nail biting 4. Acute hypoxic respiratory failure- resolved cpap-->Bipap---> 4l NC ---> now on RA thought to be 2/2 COPD exacerbation triggered by rsv infection Covid,flu, rsv negativeRSV+ on pcr No infiltrate on cxr to suggest bacterial pna 5. Sacral stimulator seen on imaging from 02/15/22. - urinary electronic stimulator in place- pt unclear why she has it.Denies ab pain,urinary symptoms or back pain. -Ct lumbar spine from 03/26/22 reviewed. Sacral bladder stimulator lead is noted. The battery pack is not entirely imaged. There is no fluid along the stimulator lead to suggest infection - per d/w son at bedside on 03/26 - stimulator has been in place for "years"- no longer working. Pt has refused removal 6. Ckd 7. mild bl inguinal candidiasis 8. Chronic pruritus - per son her pcp believes this may from ? cirrhosis. 9. leukocytosis- resolved Discussion A possible source for the 04/09 MRSA bacteremia on 03/17 is the skin. Staph aureus is part of skin floraShe has a history of MRSA + wound cultures in past ( 2018 and 2020). She has chronic pruritus and repeatedly scratches her skin, which has led to chronic wounds. She excessively bites her finger nails and has uneven, dystrophic, uneven nail beds with loosened and missing nails on some fingers. She has multiple dried lesions on lower extremity. There is an area of mild TTP and slight drainage from area of abraded skin on the left anterior calf. There is a bluish discoloration that is blanchable on the plantar side of R great toe, the Left 3rd toe is mildly red and tender to touch. However on the R 4th toe, there is what appears to be a ?splinter hemorrhage on the nail bed ? c/f possible embolic phenomena vs nail trauma Recommendations Given bacteremia and ? splinter hemorrhage, would pursue JORGE LUIS to rule out endocarditis. However per d/w with her round cutter operator, Dr Roland( also follows her outpt) on 03/25, he feels her fragile state and comorbidities put her at high risk if JORGE LUIS done and does not recommend it. He follows her outpatient and feels that endocarditis is not likely Additionally, patient does want to pursue JORGE LUIS for definitive rule out of endocarditis . TTE done 03/21 did not reveal valve vegetation. BC cleared as of 03/21 IV vancomycin changed to Daptomycin change from 6mg iv q24 to 8 mg/kg IV 48given renal function and ease of dosing,( crcl 20.5, gfr 30.7, cr 1.53 on 03/27 ) I discussed dapto dosing with pharmacy today and they agree with this dose. BASELINE CPK 38 -Continue wound care inpatient and outpatient for control of possible source of introduction of MRSA - Address pruritus, as discussed above. -miconazole powder bid ( alteratives; nystatin or clotrimazole) to bl inguinal area. plan to treat forprolonged period--minimum of 4 weeks of Daptomycin 8 mg kg IV q48 ( based on renal function) from sterile BCas we can not rule out endovascular infection, and she has hardware in place ( stimulator). Since only / total bottles +, bacteremia cleared quickly, it seems less likely an endovascular infection and possibly secondary to skin as she presented with pain at abraded skin site and has multiple skin abrasions, chronic wounds, skin nicks However i cant completely explain the lesion on her toe nail bed ( ?splinter hemorrhage or just trauma to toe nail?--admits to stubbing and nicking her toe). Ct lumbar spine done today shows no [place] evidence of infection. She has no physical exam findings to suggest infection or involvement of device . Based on the above a longer duration of abx recommended. Pruritis should be addressed ( etiology not completely elucidated). The chronic disruption of skin puts her at risk for continued introduction of bacteria into soft tissue--> blood--> sepsis , seeding her stimulator, deep seeded infections. I discussed the need to control scratching of the skin , aggressive wound care and sequela of continued process with pt and son. Both verbalized understanding and agree with extended course of IV abx. She is s/p PiCC placement. Consider RLE soft tissue US at site of increased pain today -tentative end date for Daptomycin is 04/18/22 ( 4 weeks)-- maximum 6 weeks ( 05/02/22) . Baseline CK is 38. -At 3 weeks, prior to abx completion , should follow up with PCP to evaluate wounds for healing. if still open complete maximum duration of 6 weeks of abx and end on 05/02/22. If all closed and dry can stop abx at 4 weeks on 04/18/22. -Repeat BC one week post completion of antibiotics to ensure BC clearance. -WEEKLY safety labs--cbc with diff, BMP, LFt AND CPK while on IV daptomycin -labs should be reviewed and monitored by PCP. Daptomycin adverse effects include myopathy, peripheral neuropathy, and eosinophilic pneumonia. Monitor closely. Recommendation d/w son and pt at bedside on 03/26 Thank you for allowing me to participate in the care of your patient. ID will continue to follow the patient with you. Rabia Dupont MD, MPH [facility] Admission and Anticipated Discharge Date Admission Date: March 17, 2022 Subjective Subsequent visit was provided via telemedicine using two-way real-time interactive telecommunication between the patient and the telemedicine provider. For the duration of the visit, the provider was performing the assessment from a different facility than the patient. This includesuse of bluetooth stethoscope forauscultationperformed by the telepresenter that the telemedicine provider can hear if described in the physical exam. Library Circulation Assistant contact information: Please call [facility] Center [phone]. (Phone Number For Physician Use Only) After establishing a telemedicine visit, patient was: Patient/authorized rep acknowledged consent and understanding and Gave permission to continue telehealth session Subsequent Time Spent w Inpatient: 25 minutes Denies fever, chills. Complains of pain on right medial calf where she has a skin abrasions Right pointer finger nail bed, cuticle is bleeding after pt bit down on nail this morning. Pending snf placement Review of System RLE pain Physical Exam Physical Exam: Constitutional: NAD Eyes: EOMI Neck: supple Respiratory: No increased work of breathing Gastrointestinal: soft, Non tender, not distended, no CVA tenderness, No suprapubic tenderness Musculoskeletal: Moves all extremities. No joint effusions. No spinal tenderness, 1+ LE edema Skin: scabbed lesion on BL UE. Right middle finger nail cuticle bleeding today BL LE venous stasis changes, LE chronic dried crusted wounds. RLE crusted wound with surrounding blanchable erythema. Not tender or warm. Left anterior swanson with area of abraded skin , less tender to touch, not warm. No drainage right great toe plantar surface with faint bruise. Several scabs on right toes. R 4th toenail with what appears to be a splinter hemorrhages vs nail ed trauma. Left 3rd toe is mildly red and tender to touch, fingernail on both hands severely bitten , dystrophic appearing nails and dry a ppearing cuticles - no evidence of active infection . Left UE picc. No insertion site ttp Neurologic: awake, alert and oriented times 3. Psychiatric: Appropriate, cooperative Results & Data ([place]) Vital Signs (Past 12 Hours) Vital Signs Temp Pulse Pulse Resp BP Pulse Ox O2 Del Method 03/27/22 07:57 80 22 92 Room Air 03/27/22 07:25 36.4 C L 68 18 149/73 H 93 Room Air Laboratory Results Laboratory Results - last 48 hr 03/26/22 03/27/22 03/27/22 13:04 09:04 09:09 Creatinine 1.53 H Est Cr Clr Drug Dosing 20.5 Est GFR ( Amer) 35.6 Est GFR (Non-Af Amer) 30.7 POC Glucose 194 H Total Creatine Kinase 38 03/27/22 20:49 Creatinine Est Cr Clr Drug Dosing Est GFR ( Amer) Est GFR (Non-Af Amer) POC Glucose 216 H Total Creatine Kinase Diagnostic Findings Lumbar Spine CT 03/26/22 09:57 CT OF THE LUMBAR SPINE CLINICAL HISTORY: Lower back pain. Bacteremia. Rule out stimulator infection. COMPARISON STUDY: Lumbar spine CT August 03, 2020. TECHNIQUE: Helical axial images of the lumbar spine were obtained. Sagittal and coronal reconstructions were viewed. Automated exposure control was utilized for the study. A dose lowering technique was utilized adhering to the principles of ALARA. FINDINGS: For purposes of numbering on this exam, the L5-S1 disc space is assigned to axial image 302 of 402. Mild dextroscoliosis of the lumbar spine has progressed. A mild compression fracture of the superior endplate of L3 is new since CT of August 03, 2020. However, this appears chronic. There is an old L1 compression fracture. There is no acute lumbar spine fracture. Irregularity along the superior endplate of L3 is noted. However, there is associated sclerosis and vacuum disc phenomenon. Therefore, this is unlikely to be infectious. Paravertebral soft tissues are unremarkable by CT. There is no evidence for discitis or osteomyelitis by CT. Sacral bladder stimulator lead is noted. The battery pack is not entirely imaged. There is no fluid along the stimulator lead. Bilateral pleural effusions, right larger left, are partially imaged. Severe multilevel degenerative changes are again noted with multilevel disc space narrowing, facet arthrosis and osteophytosis. These are most pronounced at the L4-L5 level. IMPRESSION: 1. Sacral bladder stimulator lead in place. No fluid along the stimulator lead or other CT findings to suggest associated infection. Battery pack partially imaged. Visualized soft tissues unremarkable. 2. L3 compression fracture which is new since CT of August 03, 2020 but likely chronic. Irregularity of the superior endplate of L3. This is likely degenerative/posttraumatic. An infectious etiology is considered less likely given the CT appearance. 3. Severe multilevel degenerative changes within the lumbar spine. 4. Bilateral pleural effusions, right larger than left. Chest X-Ray 03/26/22 12:30 XR chest 1V portable CLINICAL HISTORY: PICC placement TECHNIQUE: Single frontal radiograph of the chest was obtained. Comparison: Comparison is made to chest radiograph 05/20/2021 FINDINGS: A left PICC terminates at the lower SVC. Cardiomegaly is noted. The lungs are clear. No evidence of pleural effusion or pneumothorax. IMPRESSION: A left PICC terminates at the lower SVC. Microbiology 03/21/22 15:20 Blood Aerobic Blood Culture - Final No growth in Aerobic bottle after 5 days. 03/21/22 15:20 Blood Anaerobic Blood Culture - Final 03/21/22 15:16 Blood Aerobic Blood Culture - Final No growth in Aerobic bottle after 5 days. 03/21/22 15:16 Blood Anaerobic Blood Culture - Final 03/17/22 14:57 Blood Aerobic Blood Culture - Final Staph aureus MRSA 03/17/22 14:57 Blood Anaerobic Blood Culture - Final No growth in Anaerobic bottle after 5 days. 03/17/22 14:59 Blood Aerobic Blood Culture - Final No growth in Aerobic bottle after 5 days. 03/17/22 14:59 Blood Anaerobic Blood Culture - Final (1) CKD (chronic kidney disease) Chronic kidney disease stage: unspecified stage Qualified Code(s): N18.9 - Chronic kidney disease, unspecified
[2022-03-27] MEDS: amLODIPine BESYLATE 5 MG TAB PO SCH (21:08)
[2022-03-27] MEDS: MIRTAZAPINE TAB 15 MG TAB PO SCH (21:08)
[2022-03-28] MEDS: LEVOTHYROXINE SODIUM 50 MCG TABLET PO SCH (05:40)
[2022-03-28] MEDS: ALBUTEROL HFA 8 GM INHALER INH SCH (07:55)
[2022-03-28] MEDS: POTASSIUM CHLORIDE CRTAB 20 MEQ TABCR PO SCH ×3 (08:49→21:18)
[2022-03-28] MEDS: CYPROHEPTADINE HCL 4 MG TAB PO SCH ×2 (08:49→21:16)
[2022-03-28] MEDS: APIXABAN 2.5 MG TAB PO SCH ×2 (08:49→21:16)
[2022-03-28] MEDS: PANTOprazole 40 MG TAB PO SCH (08:50)
[2022-03-28] MEDS: DULoxetine HCL 30 MG CAP PO SCH (08:50)
[2022-03-28] MEDS: CLOPIDOGREL BISULFATE 75 MG TAB PO SCH (08:50)
[2022-03-28] MEDS: MAGNESIUM OXIDE 400 MG TAB PO SCH ×2 (08:50→21:17)
[2022-03-28] MEDS: CHOLECALCIFEROL 1,000 UNITS 25 MCG TAB PO SCH (08:50)
[2022-03-28] MEDS: DULoxetine HCL 60 MG CAP PO SCH (08:50)
[2022-03-28] MEDS: METOPROLOL SUCC 50MG EXT REL TAB PO SCH ×2 (08:50→21:17)
[2022-03-28] MEDS: ISOSORBIDE MONO EXTENDED REL 30 MG TABCR PO SCH (08:50)
[2022-03-28] MEDS: allopurinoL 300 MG TAB PO SCH (08:50)
[2022-03-28] MEDS: BUMETANIDE 1 MG TAB PO SCH ×2 (08:50→16:23)
[2022-03-28] MEDS: IRON POLYSACCHARIDE COMPLEX 150 MG CAPSULE PO SCH (08:50)
[2022-03-28] MEDS: NYSTATIN POWDER 15GM BTL EXT SCH ×2 (08:51→21:17)
[2022-03-28] MEDS: LANTUS PER UNIT CHARGE SQ SCH ×2 (08:58→21:19)
[2022-03-28] MEDS: BENZONATATE 100 MG CAPSULE PO PRN ×2 (09:00→14:34)
[2022-03-28 10:58] LABS: Anisocytosis Present; Basophils # (auto) 0.02 K/uL (0-0.2); Basophils % (auto) 0.2 %; Eosinophils # (auto) 0.25 K/uL (0-0.50); Eosinophils % (auto) 2.8 %; Hematocrit (blood only) 24.6 % (34.1-44.9); Hemoglobin 7.9 g/dl (12.0-16.0); Immature Granulocytes # (auto) 0.13 K/uL (0.00-0.02); Immature Granulocytes % (auto) 1.5 %; Lymphocytes # (auto) 0.55 K/uL (1.2-3.4); Lymphocytes % (auto) 6.2 %; Mean Corpuscular Hemoglobin 35.9 pg (25.0-34.0); Mean Corpuscular Hgb Conc 32.1 g/dL (32.0-36.0); Mean Corpuscular Volume 111.8 fL (80.0-100.0); Monocytes # (auto) 0.65 K/uL (0.24-0.82); Monocytes % (auto) 7.4 %; Neutrophils # (auto) 7.22 K/uL (1.4-6.5); Neutrophils % (auto) 81.9 %; Nucleated RBC # (auto) 0.05 K/uL (0-0); Nucleated RBC % (auto) 0.6 %; Ovalocytes 2+; Platelet Count 151 K/uL (130-400); Polychromasia 1+; RDW Coefficient of Variation 25.2 % (11.5-14.5); RDW Standard Deviation 99.8 fL (36.4-46.3); Tear Drop Cells 1+; White Blood Count 8.82 K/ul (4.8-10.8)
[2022-03-28 11:09] LABS: BUN Creatinine Ratio 26.1 (10-20); Est GFR (African American) 34.5 ml/min; Est GFR (Non-African American) 29.8 ml/min; Potassium 3.8 mmol/L (3.5-5.1)
--- NOTE | 2022-03-28 13:02 | Hospitalist Progress Note ---
Date of Service March 28, 2022 Assessment & Plan (1) MRSA bacteremia: Plan: Vancomycin has been switched to daptomycin. Appreciate infectious disease recommendations. Follow-up blood cultures are negative. CT scan reveals partial visualization of the bladder stimulator and lead with no evidence of infection. TTE negative for evidence of vegetations. ID Dr Dupont suspects possible skin source because the patient scratches herself continually. Low- dose cyproheptadine ordered for the pruritus has helped according to the patient. Plan to give 4 weeks of daptomycin through April 18.. PICC line has been placed in the left upper extremity. (2) Hypoxia: Plan: Acute hypoxic respiratory failure has now resolved. She is stable on room air. Was felt to be COPD exacerbation. Now resolved and baseline (3) Chronic kidney disease (CKD): Plan: ARF on CKD stage IIIon home dose of Bumex. Mild. Home lisinopril being held. Metoprolol 150 twice daily ongoing. Vanco dosing being adjusted by pharmacy and that is appreciated (4) Pruritus: Plan: No rash. Pruritus is chronic. Low-dose cyproheptadine started on March 26 has helped with itching according to the patient. She does not have jaundice, and I doubt her pruritus is associated with any underlying chronic liver disease. (5) Elevated troponin: Plan: No evidence of acute coronary syndrome. Telemetry revealed atrial fibrillation with controlled rate. Telemetry has been discontinued. We will follow (6) Acute leg pain: Plan: Resolved. Right leg venous Doppler negative for DVT (7) Anemia: Plan: Macrocytic in the presence of normal B12 and folate as recently as 03/18/22. 1 g drop in the last 4-months (8) Cirrhosis: Plan: Currently stable. Continue current management. May be cryptogenic. She has no t a drinker (9) Chronic heart failure with preserved ejection fraction (HFpEF): Plan: BNP chronically elevated. This is chronic with no acute exacerbation this admission. Continue current medical management. Monitor intake and output. Bumex 2 mg twice daily with potassium added. History of CAD on isosorbide (10) Hyperlipidemia: Plan: Continue statin . Low-cholesterol diet (11) History of gout: Plan: Contihnue allopurinol (12) Depression with anxiety: Plan: Continue duloxetine and HS remeron (13) Cerebrovascular disease: Plan: Continue plavix (14) Atrial fibrillation: Plan: Rate controlled with current medical management. Not on telemetry. Continue Eliquis, metoprolol, Digoxin (15) Obstructive sleep apnea: Plan: HS CPAP ordered. Stable (16) Hypothyroidism: Plan: Continue levothyroxine . Stable (17) COPD (chronic obstructive pulmonary disease): Plan: Admitted with acute exacerbation. Now at baseline. Continue current medical management. Use inhaler as needed (18) GERD (gastroesophageal reflux disease): Plan: Continue pantoprazole (19) Diabetes mellitus, type II: Plan: She had developed hypoglycemia earlier this admission. Lantus had been discontinued but then restarted on , March 26, at a lower dose. Dosage uptitrated today, March 28, due to developing hyperglycemia now. (20) Hypertension: Plan: Stable with current medical management . Metoprolol 150 twice daily home dose. Amlodipine 10 mg at bedtime started here. Plan She will need SNF placement at discharge to complete her 4-week course of intravenous daptomycin. Probably either to [facility] or [facility]. Daptomycin through April 18. Admission and Anticipated Discharge Date Admission Date: March 17, 2022 Subjective Alert and oriented. No new problems. Glucose is running high and glargine dose uptitrated. She will be discharged to either [facility] or [facility] at discharge when arrangements are finalized. She believes the cyproheptadine has helped with her chronic itching. PICC line in the left upper extremity is in place without any signs of bleeding or infection. She will remain on intravenous daptomycin through April 18. Review of Systems Review of Systems: Constitutional-no fever or chills ENT-no blurred vision, no double vision, no epistaxis, no sore throat Respiratory-no cough, no wheezing, no shortness of breath Cardiac-no palpitations, no chest pain, no syncope GI-no nausea, vomiting, diarrhea, melena, hematochezia -no urinary retention, no urinary incontinence, no dysuria, no hematuria Musculoskeletal-no joint pain, no muscle tenderness. PICC line in place medial left upper extremity is intact with no evidence of bleeding or infection Skin-no bruising, no rashes. Diffuse pruritus Neuro-no isolated weakness, no paresthesia, no weakness Psych-no depression, no anxiety Physical Exam Physical Exam: General-alert and oriented x3, no fevers, no chills HEENT-head atraumatic and normocephalic, pupils equal and reactive to light, extraocular muscles intact Neck-no lymphadenopathy or thyromegaly, trachea midline Chest-diminished breath sounds bilaterally. No rales, wheezing or rhonchi Cardiac-regular rate and rhythm, normal S1 and S2, no murmurs Abdomen-normal bowel sounds, nontender, no hepatosplenomegaly Extremities-no cyanosis, clubbing, or edema. PICC line now in place medial left upper extremity with no sign of bleeding or infection Neuro-cranial nerves II through XII intact, motor and sensory function within normal limits, strength symmetrical , no focal deficits Psych-normal affect, normal mood Results & Data Results & Data ([facility]) Vital Signs (Past 12 Hours) Vital Signs Temp Pulse Pulse Resp BP Pulse Ox O2 Del Method 03/28/22 07:20 Room Air 03/28/22 09:36 74 18 90 Room Air 03/28/22 07:53 36.6 C 73 16 123/71 96 Room Air PG Care Time/CCT Total # of Minutes Spent Total Time Spent with Patient: Total time spent is greater than 50% in coordination of care (as documented) at patient's floor/unit and/or counseling patient: Coding Level of Care Code 55150 Subseq Hosp Care Lvl 3 Diagnoses MRSA bacteremia R78.81; B95.62 Hypoxia R09.02 Chronic kidney disease (CKD) N18.9 Pruritus L29.9 Elevated troponin R77.8 Acute leg pain M79.606 Laterality: unspecified laterality Anemia D64.9 Anemia type: unspecified type Cirrhosis K74.60 Chronic heart failure with preserved ejection fraction (HFpEF) I50.32 Hyperlipidemia E78.5 History of gout Z87.39 Depression with anxiety F41.8 Cerebrovascular disease I67.9 Atrial fibrillation I48.91 Atrial fibrillation type: unspecified Obstructive sleep apnea G47.33 Hypothyroidism E03.9 Hypothyroidism type: unspecified COPD (chronic obstructive pulmonary disease) J44.9 GERD (gastroesophageal reflux disease) K21.9 Esophagitis presence: esophagitis presence not specified Diabetes mellitus, type II E11.9 Hypertension I10 (1) Acute leg pain Laterality: unspecified laterality Qualified Code(s): M79.606 - Pain in leg, unspecified (2) Anemia Anemia type: unspecified type Qualified Code(s): D64.9 - Anemia, unspecified (3) Atrial fibrillation Atrial fibrillation type: unspecified Qualified Code(s): I48.91 - Unspecified atrial fibrillation (4) Hypothyroidism Hypothyroidism type: unspecified Qualified Code(s): E03.9 - Hypothyroidism, unspecified (5) GERD (gastroesophageal reflux disease) Esophagitis presence: esophagitis presence not specified Qualified Code(s): K21.9 - Gastro-esophageal reflux disease without esophagitis
[2022-03-28] MEDS: DAPTOmycin 450 MG in SYRINGE 0 ML IV SCH (13:03)
--- NOTE | 2022-03-28 15:03 | Infectious Disease Progress Nt ---
Date of Service March 28, 2022 Assessment & Plan (1) MRSA bacteremia: (2) CKD (chronic kidney disease): (3) Pruritus: (4) COPD exacerbation: Plan This is an 87 year old female with pmh of cad, diastolic HF, Atrial fibrillation on Eliquis, CKD, hypothyroidism, dm2, cirrhosis, severe skin itching , chronic wounds ,vascular insufficiency who presents to the ED on 03/17/22 with increased shortness of breath and RLE pain. Shortness of breath was worse with exertion and associated with a dry cough. She lives in assisted living but denies any known sick contacts. She denies productive cough, fever, chills, nausea, vomiting, chest pain, joint pain, change in urine or bowel habits. recent falls or trauma to skin. She endorses itching her skin and has some scabs secondary to this. She was initially found to be in respiratory distress and hypoxic by EMS and placed on cpap. In the Ed, she was afebrile with BP 155/70, RR 40, HR 89 and 100 % 02 sat on CPAP. She was switched to Bipap for comfort and than 4 LNC Labs were noted for a WBc of 9.9 , Cr 1.5, procal 0.09, and negative covid, Influenza, and RSV testing . Repeat Viral respiratory panal + for RSV. CXr showed mild central pulmonary vascular congestion. R femur Xray was unremarkable and LE doppler was negative for DVt. She was started on azithromycin/ steroids for possible COPD exacerbation with mild chf component. She was continued on home dose of Bumex. Her respiratory status improved and she was weaned to room air. Her hospital course was c/b 1/4 MRSA bacteremia on 03/17. Repeat blood cultures from 03/21 are sterile. She denies hardware, prosthetics but has a sacral stimulator on imaging. A TTE done 03/21 is without valve vegetations Id consulted for evaluation of MRSA bacteremia Micro: BC 03/17 1/4+ mrsa Mrsa screen 03/17 and 03/21 positive Bc 03/21 Sterile MRSA RX M.I.C. --- --------- Clindamycin R >4 Daptomycin S 1 Erythromycin R >4 Oxacillin R >2 Rifampin S<=1 Tetracycline S<=4 Trimeth/Sulfa S<=0.5/9.5 Vancomycin S 2 S = SENSITIVE I = INTERMEDIATE R = Respiratory PCR panel+ RSV ABx: azithromycin 03/17-03/21 vancomycin 03/19- 03/26 ; vanco trough 03/20-24.2, random level 03/22 19.6 Daptomycin 03/26 - ongoing 1. Mrsa bacteremia of unknown etiology possible sources: skin vs endocarditis ( has ? splinter hemorrhage on right 4th toe nail bed vs toe nail trauma) - Has urinary electronic stimulator in place- sacral stimulator seen on pelvis xray done on 02/15/22. She has no prosthetic joints or heart valves - multiple skin disruptions:abrasions, scratched skin, dried wounds, excessive finger nail bitting with dystrophic damaged finger nail beds - left anterior swanson with open wound - mild drainage, tender - nicks on toes , but one area with ? splinter hemorrhage vs nail bed trauma - TTE on 03/21 is negative for vegetation,mod- severe TR , mild - mod MR - no joint pain or effusions on exam - no central lines prior to pICC placed 03/26 - esr 14 - cards and patient do not want to pursue Jorge Luis 2. Chronic skin wounds, abrasions, history of MRSA positive WC -per review of micro data has had+ MRSA wound cultures in past ( wc + MRSA, 12/27/20 and 08/19/18) - no deep wounds or probing to bone. 3. Severe finger nail biting - dry bleeding cuticles: resolved 4. Acute hypoxic respiratory failure- resolved cpap-->Bipap---> 4l NC ---> now on RA thought to be 2/2 COPD exacerbation triggered by rsv infection Covid,flu, rsv negativeRSV+ on pcr No infiltrate on cxr to suggest bacterial pna - pleural effusion seen on ct lumber spine 05/27 5. Sacral stimulator seen on imaging from 02/15/22. - urinary electronic stimulator in place- pt unclear why she has it.Denies ab pain,urinary symptoms or back pain. -Ct lumbar spine from 03/26/22 reviewed. Sacral bladder stimulator lead is noted. The battery pack is not entirely imaged. There is no fluid along the stimulator lead to suggest infection - per d/w son at bedside on 03/26 - stimulator has been in place for "years"- no longer working. Pt has refused removal 6. Ckd 7. mild bl inguinal candidiasis 8. Chronic pruritus - per son her pcp believes this may from ? cirrhosis. 9. leukocytosis- resolved Discussion A possible source for the 04/09 MRSA bacteremia on 03/17 is the skin. Staph aureus is part of skin nuha.She has a history of MRSA + wound cultures in past ( 2018 and 2020). She has chronic pruritus and repeatedly scratches her skin, which has led to chronic wounds. She excessively bites her finger nails and has uneven, dystrophic, uneven nail beds with loosened and missing nails on some fingers and bleeding cuticles. She has multiple dried lesions on lower extremity. There is an area of mild TTP and slight drainage from area of abraded skin on the left anterior calf. There is a bluish discoloration that is blanchable on the plantar side of R great toe, the Left 3rd toe is mildly red and tender to touch. However on the R 4th toe, there is what appears to be a ?splinter hemorrhage on the nail bed ? c/f possible embolic phenomena vs nail trauma Recommendations Given bacteremia and ? splinter hemorrhage, would pursue JORGE LUIS to rule out endocarditis. 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 He follows her outpatient and feels that endocarditis is not likely Additionally, patient does want to pursue JORGE LUIS for definitive rule out of endocarditis . TTE done 03/21 did not reveal valve vegetation. BC cleared as of 03/21 IV vancomycin changed to Daptomycin- 8 mg/kg IV 48given renal function and ease of dosing,( crcl 20.5, gfr 30.7, cr 1.53 on 03/27 ) I discussed dapto dosing with pharmacy today and they agree with this dose. BASELINE CPK 38 -Continue wound care inpatient and outpatient for control of possible source of introduction of MRSA - Address pruritus, as discussed above. -continue nystatin powder bid to bl inguinal area. plan to treat forprolonged period--minimum of 4 weeks of Daptomycin 8 mg kg IV q48 ( based on renal function) from sterile BCas we can not rule out endovascular infection, and she has hardware in place ( stimulator). Since only / total bottles +, bacteremia cleared quickly, it seems less likely an endovascular infection and possibly secondary to skin as she presented with pain at abraded skin site and has multiple skin abrasions, chronic wounds, skin nicks However i can' t completely explain the lesion on her toe nail bed ( ?splinter hemorrhage or just trauma to toe nail?--admits to stubbing and nicking her toe). Ct lumbar spine done 03/26 shows no [place] evidence of infection. She has no physical exam findings to suggest infection or involvement of device . Based on the above a longer duration of abx recommended. Pruritus should be addressed ( etiology not completely elucidated). The chronic disruption of skin puts her at risk for continued introduction of bacteria into soft tissue--> blood--> sepsis , seeding her stimulator, deep seeded infections. I discussed the need to control scratching of the skin , aggressive wound care and sequela of continued process with pt and son. Both verbalized understanding and agree with extended course of IV abx. -tentative end date for Daptomycin is 04/18/22 ( 4 weeks)-- maximum 6 weeks ( 05/02/22) . Baseline CK is 38. -At 3 weeks, prior to abx completion , should follow up with PCP to evaluate wounds for healing. if still open complete maximum duration of 6 weeks of abx and end on 05/02/22. If all closed and dry can stop abx at 4 weeks on 04/18/22. -Repeat BC one week post completion of antibiotics to ensure BC clearance. -WEEKLY safety labs--cbc with diff, BMP, LFt AND CPK while on IV daptomycin -labs should be reviewed and monitored by PCP. Daptomycin adverse effects include myopathy, peripheral neuropathy, and eosinophilic pneumonia. Monitor closely. Thank you for allowing me to participate in the care of your patient. If any questions over the holiday weekend, please call Please call [facility] . Rabia Dupont MD, MPH [facility] Admission and Anticipated Discharge Date Admission Date: March 17, 2022 Subjective Subsequent visit was provided via telemedicine using two-way real-time interactive telecommunication between the patient and the telemedicine provider. For the duration of the visit, the provider was performing the assessment from a different facility than the patient. This includesuse of bluetooth stethoscope forauscultationperformed by the telepresenter that the telemedicine provider can hear if described in the physical exam. Messenger Office contact information: Please call [facility] [employer] [employer] [facility] [phone]. (Phone Number For Physician Use Only) After establishing a telemedicine visit, patient was: Patient/authorized rep acknowledged consent and understanding and Gave permission to continue telehealth session Subsequent Time Spent w Inpatient: 25 minutes Denies fever, chills. has less pain on right medial calf Right pointer finger nail bed is no longer bleeding + dry cough feels better Pending snf placement Review of System LE pain improving, decreased scratching sking Physical Exam Physical Exam: Constitutional: NAD Eyes: EOMI Neck: supple Respiratory: No increased work of breathing Gastrointestinal: soft, Non tender, not distended, no CVA tenderness, No suprapubic tenderness Musculoskeletal: Moves all extremities. No joint effusions. No spinal tenderness, 1+ LE edema Skin: scabbed lesion on BL UE. Right middle finger nail cuticle no bleeding today BL LE venous stasis changes, LE chronic dried crusted wounds. RLE crusted wound with surrounding blanchable erythema. Not tender or warm. Left anterior swanson with area of abraded skin , less tender to touch, not warm. No drainage right great toe plantar surface with faint bruise. Several scabs on right toes. R 4th toenail with what appears to be a splinter hemorrhages vs nail ed trauma. Left 3rd toe is mildly red and less to touch, fingernail on both hands severely bitten , dystrophic appearing nails and dry appearing cuticles - no evidence of active infection . Left UE picc. No insertion site ttp Neurologic: awake, alert and oriented times 3. Psychiatric: Appropriate, cooperative Results & Data ([facility]) Vital Signs (Past 12 Hours) Vital Signs Temp Pulse Pulse Resp BP Pulse Ox O2 Del Method 03/28/22 07:20 Room Air 03/28/22 09:36 74 18 90 Room Air 03/28/22 07:53 36.6 C 73 16 123/71 96 Room Air Laboratory Results Laboratory Results - last 48 hr 03/27/22 03/27/22 03/27/22 09:04 09:09 20:49 WBC RBC Hgb Hct MCV MCH MCHC RDW Std Deviation RDW Coeff of Talia Plt Count Immature Gran % (Auto) Neut % (Auto) Lymph % (Auto) Kingman % (Auto) Eos % (Auto) Baso % (Auto) Neut # (Auto) Lymph # (Auto) Kingman # (Auto) Eos # (Auto) Baso # (Auto) Immature Gran # (Auto) Absolute Nucleated RBC Nucleated RBC % (auto) Polychromasia Anisocytosis Tear Drop Cells Ovalocytes Sodium Potassium Chloride Carbon Dioxide Anion Gap BUN Creatinine 1.53 H Est Cr Clr Drug Dosing 20.5 Est GFR ( Amer) 35.6 Est GFR (Non-Af Amer) 30.7 BUN/Creatinine Ratio Glucose POC Glucose 194 H 216 H Calcium 03/28/22 03/28/22 03/28/22 08:25 09:55 09:55 WBC 8.82 RBC 2.20 L Hgb 7.9 L Hct 24.6 L MCV 111.8 H MCH 35.9 H MCHC 32.1 RDW Std Deviation 99.8 H RDW Coeff of Talia 25.2 H Plt Count 151 Immature Gran % (Auto) 1.5 Neut % (Auto) 81.9 Lymph % (Auto) 6.2 Kingman % (Auto) 7.4 Eos % (Auto) 2.8 Baso % (Auto) 0.2 Neut # (Auto) 7.22 H Lymph # (Auto) 0.55 L Kingman # (Auto) 0.65 Eos # (Auto) 0.25 Baso # (Auto) 0.02 Immature Gran # (Auto) 0.13 H Absolute Nucleated RBC 0.05 H Nucleated RBC % (auto) 0.6 Polychromasia 1+ Anisocytosis Present Tear Drop Cells 1+ Ovalocytes 2+ Sodium 133 L Potassium 3.8 Chloride 93 L Carbon Dioxide 34 H Anion Gap 6 BUN 41 H Creatinine 1.57 H Est Cr Clr Drug Dosing 20.0 Est GFR ( Amer) 34.5 Est GFR (Non-Af Amer) 29.8 BUN/Creatinine Ratio 26.1 H Glucose 255 H POC Glucose 164 H Calcium 8.0 L 03/28/22 12:27 WBC RBC Hgb Hct MCV MCH MCHC RDW Std Deviation RDW Coeff of Talia Plt Count Immature Gran % (Auto) Neut % (Auto) Lymph % (Auto) Kingman % (Auto) Eos % (Auto) Baso % (Auto) Neut # (Auto) Lymph # (Auto) Kingman # (Auto) Eos # (Auto) Baso # (Auto) Immature Gran # (Auto) Absolute Nucleated RBC Nucleated RBC % (auto) Polychromasia Anisocytosis Tear Drop Cells Ovalocytes Sodium Potassium Chloride Carbon Dioxide Anion Gap BUN Creatinine Est Cr Clr Drug Dosing Est GFR ( Amer) Est GFR (Non-Af Amer) BUN/Creatinine Ratio Glucose POC Glucose 218 H Calcium Diagnostic Findings Lumbar Spine CT 03/26/22 09:57 CT OF THE LUMBAR SPINE CLINICAL HISTORY: Lower back pain. Bacteremia. Rule out stimulator infection. COMPARISON STUDY: Lumbar spine CT August 03, 2020. TECHNIQUE: Helical axial images of the lumbar spine were obtained. Sagittal and coronal reconstructions were viewed. Automated exposure control was utilized for the study. A dose lowering technique was utilized adhering to the principles of ALARA. FINDINGS: For purposes of numbering on this exam, the L5-S1 disc space is assigned to axial image 302 of 402. Mild dextroscoliosis of the lumbar spine has progressed. A mild compression fracture of the superior endplate of L3 is new since CT of August 03, 2020. However, this appears chronic. There is an old L1 compression fracture. There is no acute lumbar spine fracture. Irregularity along the superior endplate of L3 is noted. However, there is associated sclerosis and vacuum disc phenomenon. Therefore, this is unlikely to be infectious. Paravertebral soft tissues are unremarkable by CT. There is no evidence for discitis or osteomyelitis by CT. Sacral bladder stimulator lead is noted. The battery pack is not entirely imaged. There is no fluid along the stimulator lead. Bilateral pleural effusions, right larger left, are partially imaged. Severe multilevel degenerative changes are again noted with multilevel disc space narrowing, facet arthrosis and osteophytosis. These are most pronounced at the L4-L5 level. IMPRESSION: 1. Sacral bladder stimulator lead in place. No fluid along the stimulator lead or other CT findings to suggest associated infection. Battery pack partially imaged. Visualized soft tissues unremarkable. 2. L3 compression fracture which is new since CT of August 03, 2020 but likely chronic. Irregularity of the superior endplate of L3. This is likely degenerative/posttraumatic. An infectious etiology is considered less likely given the CT appearance. 3. Severe multilevel degenerative changes within the lumbar spine. 4. Bilateral pleural effusions, right larger than left. Chest X-Ray 03/26/22 12:30 XR chest 1V portable CLINICAL HISTORY: PICC placement TECHNIQUE: Single frontal radiograph of the chest was obtained. Comparison: Comparison is made to chest radiograph 05/20/2021 FINDINGS: A left PICC terminates at the lower SVC. Cardiomegaly is noted. The lungs are clear. No evidence of pleural effusion or pneumothorax. IMPRESSION: A left PICC terminates at the lower SVC. Microbiology 03/21/22 15:20 Blood Aerobic Blood Culture - Final No growth in Aerobic bottle after 5 days. 03/21/22 15:20 Blood Anaerobic Blood Culture - Final 03/21/22 15:16 Blood Aerobic Blood Culture - Final No growth in Aerobic bottle after 5 days. 03/21/22 15:16 Blood Anaerobic Blood Culture - Final 03/17/22 14:57 Blood Aerobic Blood Culture - Final Staph aureus MRSA 03/17/22 14:57 Blood Anaerobic Blood Culture - Final No growth in Anaerobic bottle after 5 days. 03/17/22 14:59 Blood Aerobic Blood Culture - Final No growth in Aerobic bottle after 5 days. 03/17/22 14:59 Blood Anaerobic Blood Culture - Final Medications Administered Home Medications Medication Instructions Recorded Confirmed Last Taken cholecalciferol (vitamin D3) 25 2,000 unit PO QAM 05/11/20 03/17/22 04/22/21 mcg (1,000 unit) tablet (Vitamin D3) polyethylene glycol 3350 17 8.5 g PO DAILY PRN Constipation 01/28/21 03/17/22 Unknown gram/dose oral powder (Miralax) vit C 226 mg-vit E 90 mg-copper 1 cap PO BID 02/01/21 03/17/22 04/22/21 0.8 mg-zinc oxide-lutein 5 mg capsule (PreserVision Lutein) allopurinol 100 mg tablet 300 mg PO QAM #90 tabs 12/16/21 03/17/22 Unknown (Zyloprim) apixaban 2.5 mg tablet (Eliquis) 2.5 mg PO BID #180 tabs 12/16/21 03/17/22 Unknown bumetanide 2 mg tablet 2 mg PO BID #60 tabs 12/16/21 03/17/22 Unknown clopidogrel 75 mg tablet (Plavix) 75 mg PO QAM #90 tabs 12/16/21 03/17/22 Unknown digoxin 125 mcg (0.125 mg) tablet 125 mcg PO Q2D #15 tabs 12/16/21 03/17/22 Unknown (Digitek) duloxetine 30 mg capsule,delayed 30 mg PO QAM #90 caps 12/16/21 03/17/22 Unknown release (Cymbalta) duloxetine 60 mg capsule,delayed 60 mg PO QAM #90 caps 12/16/21 03/17/22 Unknown release (Cymbalta) isosorbide mononitrate 30 mg 30 mg PO QAM #90 tabs 22 03/17/22 Unknown tablet,extended release 24 hr levothyroxine 50 mcg tablet 50 mcg PO DAILYBB #30 tabs 12/16/21 03/17/22 Unknown (Synthroid) magnesium oxide 400 mg PO BID #180 tabs 12/16/21 03/17/22 Unknown metoprolol succinate 50 mg 150 mg PO BID #540 tabs 12/16/21 03/17/22 Unknown tablet,extended release 24 hr (Toprol XL) mirtazapine 15 mg tablet (Remeron) 15 mg PO HS #30 tabs 12/16/21 03/17/22 Unknown pantoprazole 40 mg tablet,delayed 40 mg PO QAM #90 tabs 12/16/21 03/17/22 Unknown release (Protonix) polysaccharide iron complex 150 mg 150 mg PO QAM #90 caps 12/16/21 03/17/22 Unknown iron capsule (Ferrex) potassium chloride 20 mEq 10 meq PO BID #180 tabs 12/16/21 03/17/22 Unknown tablet,extended release (K-Tab) insulin glargine 100 unit/mL (3 28 unit (0.28 mL) subcut HS #15 mL 12/18/21 03/17/22 Unknown mL) subcutaneous pen (Lantus Solostar U-100 Insulin) glucagon 1 mg solution for 1 mg subcut Q20M PRN hypoglycemia 01/02/22 03/17/22 Unknown injection (Glucagon Emergency Kit) #1 ea nitroglycerin 0.3 mg sublingual 0.3 mg sublingual Q5M PRN Chest 01/17/22 03/17/22 Unknown tablet Pain nystatin 100,000 unit/gram topical 1 applic topical TID 2 weeks #30 01/21/22 03/17/22 Unknown cream grams insulin aspart U-100 100 unit/mL 7 - 10 unit (0.07 - 0.1 mL) subcut 02/04/22 03/17/22 Unknown (3 mL) subcutaneous pen (Novolog TIDM #45 mL Flexpen U-100 Insulin aspart) clobetasol 0.05 % topical cream 1 applic topical BID #30 grams 02/19/22 03/17/22 Unknown guaifenesin 600 mg tablet, 600 mg PO BID PRN cough #60 tabs 03/13/22 03/17/22 Unknown extended release 12 hr Active Medications Generic Name Dose Route Start Last Admin Trade Name Freq PRN Reason Stop Dose Admin Acetaminophen 650 mg 03/17/22 19:19 03/26/22 01:51 Acetaminophen 325 Mg Tab PO 04/16/22 19:18 650 mg Q4H PRN Administration Pain (1,2,3) Or Fever Albuterol 3 ml 03/18/22 09:24 03/25/22 18:34 Albut/Ipratrop 3mg/0.5mg Neb 3 Ml Vial NEB 04/16/22 18:59 3 ml Q4R PRN Administration Shortness Of Breath Or Wheezing Protocol Albuterol 2 puffs 03/25/22 19:36 03/28/22 07:55 Albuterol Hfa 8 Gm Inhaler INH 04/24/22 19:35 2 puffs BIDR RODDY Administration Allopurinol 300 mg 03/18/22 09:00 03/28/22 08:50 Allopurinol 300 Mg Tab PO 04/17/22 08:59 300 mg QAM RODDY Administration Amlodipine Besylate 10 mg 03/24/22 21:00 03/27/22 21:08 Amlodipine Besylate 5 Mg Tab PO 04/23/22 20:59 10 mg HS RODDY Administration Apixaban 2.5 mg 03/17/22 21:00 03/28/22 08:49 Apixaban 2.5 Mg Tab PO 04/16/22 20:59 2.5 mg BID RODDY Administration Benzonatate 100 mg 03/19/22 00:26 03/28/22 14:34 Benzonatate 100 Mg Capsule PO 04/18/22 00:25 100 mg TID PRN Administration Cough Bumetanide 2 mg 03/17/22 19:45 03/28/22 08:50 Bumetanide 1 Mg Tab PO 04/16/22 19:44 2 mg BID17 RODDY Administration Clopidogrel Bisulfate 75 mg 03/18/22 09:00 03/28/22 08:50 Clopidogrel Bisulfate 75 Mg Tab PO 04/17/22 08:59 75 mg QAM RODDY Administration Cyproheptadine HCl 4 mg 03/26/22 14:15 03/28/22 08:49 Cyproheptadine Hcl 4 Mg Tab PO 04/25/22 14:14 4 mg Q12 RODDY Administration Diclofenac Sodium 2 gm 03/22/22 17:26 03/24/22 02:11 Diclofenac Sod 1% Gel 100 Gm Tube EXT 04/21/22 17:25 2 gm Q4H PRN Administration Pain Protocol Digoxin 0.125 mg 03/18/22 16:00 03/26/22 16:26 Digoxin 0.125 Mg Tab PO 04/17/22 15:59 0.125 mg Q2D@1600 RODDY Administration Diphenhydramine HCl 50 mg 03/18/22 12:34 03/20/22 05:46 Diphenhydramine Capsule 25 Mg Cap PO 04/17/22 12:33 50 mg Q6H PRN Administration Itching Duloxetine HCl 60 mg 03/18/22 09:00 03/28/22 08:50 Duloxetine Hcl 60 Mg Cap PO 04/17/22 08:59 60 mg QAM RODDY Administration Duloxetine HCl 30 mg 03/18/22 09:00 03/28/22 08:50 Duloxetine Hcl 30 Mg Cap PO 04/17/22 08:59 30 mg QAM RODDY Administration Guaifenesin 600 mg 03/17/22 19:19 03/20/22 08:03 Guaifenesin 600 Mg Tabcr PO 04/16/22 19:18 600 mg BID PRN Administration cough Heparin Sodium (Beef Lung) 5 ml 03/27/22 02:43 03/28/22 13:03 Heparin 10 Unit/Ml 5 Ml Flush FLUSH 04/26/22 02:42 5 ml PRN PRN Administration Flush Hydrocortisone 1 appln 03/20/22 03:10 03/22/22 17:55 Hydrocortisone 1% Crm 30 Gm Tube EXT 04/19/22 03:09 1 appln BID PRN Administration rash or itching Daptomycin 450 mg/ Syringe 9 mls @ 4.5 mls/min 03/28/22 12:00 03/28/22 13:03 IV 04/11/22 11:59 4.5 mls/min Q48H RODDY Administration Protocol Isosorbide Mononitrate 30 mg 03/18/22 09:00 03/28/22 08:50 Isosorbide Kingman Extended Rel 30 Mg Tabcr PO 04/17/22 08:59 30 mg QAM RODDY Administration Levothyroxine Sodium 50 mcg 03/18/22 06:30 03/28/22 05:40 Levothyroxine Sodium 50 Mcg Tablet PO 04/17/22 06:29 50 mcg DAILYBB RODDY Administration Magnesium Oxide 400 mg 03/17/22 21:00 03/28/22 08:50 Magnesium Oxide 400 Mg Tab PO 04/16/22 20:59 400 mg BID RODDY Administration Metoprolol Succinate 150 mg 03/17/22 21:00 03/28/22 08:50 Metoprolol Succ 50mg Ext Rel Tab PO 04/16/22 20:59 150 mg BID RODDY Administration Mirtazapine 15 mg 03/17/22 21:00 03/27/22 21:08 Mirtazapine Tab 15 Mg Tab PO 04/16/22 20:59 15 mg HS RODDY Administration Multi-Ingredient Cream 1 appln 03/20/22 10:14 03/25/22 20:21 Eucerin Cr 120 Gm Jar EXT 04/19/22 10:13 1 appln [id number] PRN Administration Itching Nystatin 1 appln 03/26/22 21:00 03/28/22 08:51 Nystatin Powder 15gm Btl EXT 04/25/22 20:59 1 appln BID RODDY Administration Pantoprazole Sodium 40 mg 03/18/22 09:00 03/28/22 08:50 Pantoprazole 40 Mg Tab PO 04/17/22 08:59 40 mg QAM RODDY Administration Polyethylene Glycol 8.5 gm 03/17/22 19:19 03/25/22 07:40 Polyethylene (Miralax) 17 Gm Pack PO 04/16/22 19:18 8.5 gm DAILY PRN Administration Constipation Polysaccharide Iron Complex 150 mg 03/18/22 09:00 03/28/22 08:50 Iron Polysaccharide Complex 150 Mg Capsule PO 04/17/22 08:59 150 mg QAM RODDY Administration Potassium Chloride 20 meq 03/26/22 14:00 03/28/22 14:34 Potassium Chloride Crtab 20 Meq Tabcr PO 04/25/22 13:59 20 meq TID RODDY Administration Vitamin D 2,000 units 03/18/22 09:00 03/28/22 08:50 Cholecalciferol 1,000 Units 25 Mcg Tab PO 04/17/22 08:59 2,000 units QAM RODDY Administration (1) CKD (chronic kidney disease) Chronic kidney disease stage: unspecified stage Qualified Code(s): N18.9 - Chronic kidney disease, unspecified
[2022-03-28] MEDS: DIGOXIN 0.125 MG TAB PO SCH (16:23)
[2022-03-28] MEDS ORDERED: ALBUTEROL HFA 8 GM INHALER INH PRN (16:41)
[2022-03-28] MEDS: ACETAMINOPHEN 325 MG TAB PO PRN (19:48)
[2022-03-28] MEDS: EUCERIN CR 120 GM JAR EXT PRN (19:50)
[2022-03-28] MEDS: amLODIPine BESYLATE 5 MG TAB PO SCH (21:16)
[2022-03-28] MEDS: MIRTAZAPINE TAB 15 MG TAB PO SCH (21:17)
[2022-03-28] MEDS: guaiFENesin 600 MG TABCR PO PRN (21:18)
[2022-03-29] MEDS: ACETAMINOPHEN 325 MG TAB PO PRN (06:01)
[2022-03-29] MEDS: LEVOTHYROXINE SODIUM 50 MCG TABLET PO SCH (06:01)
[2022-03-29] MEDS: BENZONATATE 100 MG CAPSULE PO PRN ×3 (06:15→16:09)
[2022-03-29] MEDS: DULoxetine HCL 60 MG CAP PO SCH (08:41)
[2022-03-29] MEDS: guaiFENesin 600 MG TABCR PO PRN (08:41)
[2022-03-29] MEDS: POTASSIUM CHLORIDE CRTAB 20 MEQ TABCR PO SCH ×3 (08:41→20:21)
[2022-03-29] MEDS: CHOLECALCIFEROL 1,000 UNITS 25 MCG TAB PO SCH (08:41)
[2022-03-29] MEDS: allopurinoL 300 MG TAB PO SCH (08:41)
[2022-03-29] MEDS: METOPROLOL SUCC 50MG EXT REL TAB PO SCH ×2 (08:41→20:24)
[2022-03-29] MEDS: MAGNESIUM OXIDE 400 MG TAB PO SCH ×2 (08:41→20:23)
[2022-03-29] MEDS: CYPROHEPTADINE HCL 4 MG TAB PO SCH ×2 (08:41→20:22)
[2022-03-29] MEDS: APIXABAN 2.5 MG TAB PO SCH ×2 (08:41→20:22)
[2022-03-29] MEDS: BUMETANIDE 1 MG TAB PO SCH ×2 (08:42→16:09)
[2022-03-29] MEDS: CLOPIDOGREL BISULFATE 75 MG TAB PO SCH (08:42)
[2022-03-29] MEDS: PANTOprazole 40 MG TAB PO SCH (08:42)
[2022-03-29] MEDS: DULoxetine HCL 30 MG CAP PO SCH (08:42)
[2022-03-29] MEDS: IRON POLYSACCHARIDE COMPLEX 150 MG CAPSULE PO SCH (08:42)
[2022-03-29] MEDS: ISOSORBIDE MONO EXTENDED REL 30 MG TABCR PO SCH (08:42)
[2022-03-29] MEDS: NYSTATIN POWDER 15GM BTL EXT SCH ×2 (08:43→20:24)
[2022-03-29] MEDS: LANTUS PER UNIT CHARGE SQ SCH ×2 (08:53→20:45)
[2022-03-29 10:40] LABS: Creatinine Clr Calc Pharmacy 19.6 ml/min; Est GFR (African American) 33.7 ml/min; Est GFR (Non-African American) 29.1 ml/min
[2022-03-29] MEDS: ALBUT/IPRATROP 3MG/0.5MG NEB 3 ML VIAL NEB PRN (11:14)
--- NOTE | 2022-03-29 15:49 | Hospitalist Progress Note ---
Date of Service March 29, 2022 Assessment & Plan (1) MRSA bacteremia: Plan: Vancomycin has been switched to daptomycin. Appreciate infectious disease recommendations. Follow-up blood cultures are negative. CT scan reveals partial visualization of the bladder stimulator and lead with no evidence of infection. TTE negative for evidence of vegetations. ID Dr Dupont suspects possible skin source because the patient scratches herself continually. Low- dose cyproheptadine ordered for the pruritus has helped according to the patient. Plan to give 4 weeks of daptomycin through April 18.. PICC line has been placed in the left upper extremity. (2) Hypoxia: Plan: Acute hypoxic respiratory failure has now resolved. She is stable on room air. Was felt to be COPD exacerbation. Now resolved and baseline (3) Chronic kidney disease (CKD): Plan: ARF on CKD stage IIIon home dose of Bumex. Mild. Home lisinopril being held. Metoprolol 150 twice daily ongoing. Vanco dosing being adjusted by pharmacy and that is appreciated (4) Pruritus: Plan: No rash. Pruritus is chronic. Low-dose cyproheptadine started on March 26 has helped with itching according to the patient. She does not have jaundice, and I doubt her pruritus is associated with any underlying chronic liver disease. (5) Elevated troponin: Plan: No evidence of acute coronary syndrome. Telemetry revealed atrial fibrillation with controlled rate. Telemetry has been discontinued. We will follow (6) Acute leg pain: Plan: Resolved. Right leg venous Doppler negative for DVT (7) Anemia: Plan: Macrocytic in the presence of normal B12 and folate as recently as 03/18/22. 1 g drop in the last 4-months (8) Cirrhosis: Plan: Currently stable. Continue current management. May be cryptogenic. She has no t a drinker (9) Chronic heart failure with preserved ejection fraction (HFpEF): Plan: BNP chronically elevated. This is chronic with no acute exacerbation this admission. Continue current medical management. Monitor intake and output. Bumex 2 mg twice daily with potassium added. History of CAD on isosorbide (10) Hyperlipidemia: Plan: Continue statin . Low-cholesterol diet (11) History of gout: Plan: [place] allopurinol (12) Depression with anxiety: Plan: Continue duloxetine and HS remeron (13) Cerebrovascular disease: Plan: Continue plavix (14) Atrial fibrillation: Plan: Rate controlled with current medical management. Not on telemetry. Continue Eliquis, metoprolol, Digoxin (15) Obstructive sleep apnea: Plan: HS CPAP ordered. Stable (16) Hypothyroidism: Plan: Continue levothyroxine . Stable (17) COPD (chronic obstructive pulmonary disease): Plan: Admitted with acute exacerbation. Now at baseline. Continue current medical management. Use inhaler as needed (18) GERD (gastroesophageal reflux disease): Plan: Continue pantoprazole (19) Diabetes mellitus, type II: Plan: She had developed hypoglycemia earlier this admission. Lantus had been discontinued but then restarted on , March 26, at a lower dose. Dosage uptitrated today, March 28, due to developing hyperglycemia now. (20) Hypertension: Plan: Stable with current medical management . Metoprolol 150 twice daily home dose. Amlodipine 10 mg at bedtime started here. Plan She will need SNF placement at discharge to complete her 4-week course of intravenous daptomycin. Probably either to [facility] or [facility]. Daptomycin through April 18. Admission and Anticipated Discharge Date Admission Date: March 17, 2022 Subjective at 0850 h no complaints, eating fine. Physical Exam Physical Exam: Alert pleasant overweight lady, sitting in bed, lucid historian , oriented to person and place Head and neck moist tongue Normal insight and judgment Chest: Clear to auscultation anteriorly CVS S1-S2 systolic ejection murmur grade 2 IRONER SOCK gait not observed, Skin exam deferred Results & Data Results & Data ([facility]) Vital Signs (Past 12 Hours) Vital Signs Temp Pulse Resp BP Pulse Ox O2 Del Method O2 Flow Rate 03/29/22 14:57 36.4 C L 75 16 123/73 92 Nasal Cannula 1 03/29/22 11:14 66 18 95 Nasal Cannula 1 03/29/22 10:32 Room Air 03/29/22 08:08 36.3 C L 60 16 123/64 90 Room Air Laboratory Results Abnormal lab results 03/28/22 03/28/22 03/29/22 Range/Units 17:26 20:44 09:57 Creatinine 1.60 H (0.6-1.2) mg/dl POC Glucose 200 H 177 H (70-99) mg/dl 03/29/22 Range/Units 12:07 Creatinine (0.6-1.2) mg/dl POC Glucose 234 H (70-99) mg/dl Medications Administered Home Medications Medication Instructions Recorded Confirmed Last Taken cholecalciferol (vitamin D3) 25 2,000 unit PO QAM 05/11/20 03/17/22 04/22/21 mcg (1,000 unit) tablet (Vitamin D3) polyethylene glycol 3350 17 8.5 g PO DAILY PRN Constipation 01/28/21 03/17/22 Unknown gram/dose oral powder (Miralax) vit C 226 mg-vit E 90 mg-copper 1 cap PO BID 02/01/21 03/17/22 04/22/21 0.8 mg-zinc oxide-lutein 5 mg capsule (PreserVision Lutein) allopurinol 100 mg tablet 300 mg PO QAM #90 tabs 12/16/21 03/17/22 Unknown (Zyloprim) apixaban 2.5 mg tablet (Eliquis) 2.5 mg PO BID #180 tabs 12/16/21 03/17/22 Unknown bumetanide 2 mg tablet 2 mg PO BID #60 tabs 12/16/21 03/17/22 Unknown clopidogrel 75 mg tablet (Plavix) 75 mg PO QAM #90 tabs 12/16/21 03/17/22 Unknown digoxin 125 mcg (0.125 mg) tablet 125 mcg PO Q2D #15 tabs 12/16/21 03/17/22 Unknown (Digitek) duloxetine 30 mg capsule,delayed 30 mg PO QAM #90 caps 12/16/21 03/17/22 Unknown release (Cymbalta) duloxetine 60 mg capsule,delayed 60 mg PO QAM #90 caps 12/16/21 03/17/22 Unknown release (Cymbalta) isosorbide mononitrate 30 mg 30 mg PO QAM #90 tabs 12/16/21 03/17/22 Unknown tablet,extended release 24 hr levothyroxine 50 mcg tablet 50 mcg PO DAILYBB #30 tabs 12/16/21 03/17/22 Unknown (Synthroid) magnesium oxide 400 mg PO BID #180 tabs 12/16/21 03/17/22 Unknown metoprolol succinate 50 mg 150 mg PO BID #540 tabs 12/16/21 03/17/22 Unknown tablet,extended release 24 hr (Toprol XL) mirtazapine 15 mg tablet (Remeron) 15 mg PO HS #30 tabs 12/16/21 03/17/22 Unknown pantoprazole 40 mg tablet,delayed 40 mg PO QAM #90 tabs 12/16/21 03/17/22 Unknown release (Protonix) polysaccharide iron complex 150 mg 150 mg PO QAM #90 caps 12/16/21 03/17/22 Unknown iron capsule (Ferrex) potassium chloride 20 mEq 10 meq PO BID #180 tabs 12/16/21 03/17/22 Unknown tablet,extended release (K-Tab) insulin glargine 100 unit/mL (3 28 unit (0.28 mL) subcut HS #15 mL 12/18/21 03/17/22 Unknown mL) subcutaneous pen (Lantus Solostar U-100 Insulin) glucagon 1 mg solution for 1 mg subcut Q20M PRN hypoglycemia 01/02/22 03/17/22 Unknown injection (Glucagon Emergency Kit) #1 ea nitroglycerin 0.3 mg sublingual 0.3 mg sublingual Q5M PRN Chest 01/17/22 03/17/22 Unknown tablet Pain nystatin 100,000 unit/gram topical 1 applic topical TID 2 weeks #30 01/21/22 03/17/22 Unknown cream grams insulin aspart U-100 100 unit/mL 7 - 10 unit (0.07 - 0.1 mL) subcut 02/04/22 03/17/22 Unknown (3 mL) subcutaneous pen (Novolog TIDM #45 mL Flexpen U-100 Insulin aspart) clobetasol 0.05 % topical cream 1 applic topical BID #30 grams 02/19/22 03/17/22 Unknown guaifenesin 600 mg tablet, 600 mg PO BID PRN cough #60 tabs 03/13/22 03/17/22 Unknown extended release 12 hr Active Medications Generic Name Dose Route Start Last Admin Trade Name Freq PRN Reason Stop Dose Admin Acetaminophen 650 mg 03/17/22 19:19 03/29/22 06:01 Acetaminophen 325 Mg Tab PO 04/16/22 19:18 650 mg Q4H PRN Administration Pain (1,2,3) Or Fever Albuterol 3 ml 03/18/22 09:24 03/29/22 11:14 Albut/Ipratrop 3mg/0.5mg Neb 3 Ml Vial NEB 04/16/22 18:59 3 ml Q4R PRN Administration Shortness Of Breath Or Wheezing Protocol Allopurinol 300 mg 03/18/22 09:00 03/29/22 08:41 Allopurinol 300 Mg Tab PO 04/17/22 08:59 300 mg QAM RODDY Administration Amlodipine Besylate 10 mg 03/24/22 21:00 03/28/22 21:16 Amlodipine Besylate 5 Mg Tab PO 04/23/22 20:59 10 mg HS RODDY Administration Apixaban 2.5 mg 03/17/22 21:00 03/29/22 08:41 Apixaban 2.5 Mg Tab PO 04/16/22 20:59 2.5 mg BID RODDY Administration Benzonatate 100 mg 03/19/22 00:26 03/29/22 08:41 Benzonatate 100 Mg Capsule PO 04/18/22 00:25 100 mg TID PRN Administration Cough Bumetanide 2 mg 03/17/22 19:45 03/29/22 08:42 Bumetanide 1 Mg Tab PO 04/16/22 19:44 2 mg BID17 RODDY Administration Clopidogrel Bisulfate 75 mg 03/18/22 09:00 03/29/22 08:42 Clopidogrel Bisulfate 75 Mg Tab PO 04/17/22 08:59 75 mg QAM RODDY Administration Cyproheptadine HCl 4 mg 03/26/22 14:15 03/29/22 08:41 Cyproheptadine Hcl 4 Mg Tab PO 04/25/22 14:14 4 mg Q12 RODDY Administration Diclofenac Sodium 2 gm 03/22/22 17:26 03/24/22 02:11 Diclofenac Sod 1% Gel 100 Gm Tube EXT 04/21/22 17:25 2 gm Q4H PRN Administration Pain Protocol Digoxin 0.125 mg 03/18/22 16:00 03/28/22 16:23 Digoxin 0.125 Mg Tab PO 04/17/22 15:59 0.125 mg Q2D@1600 RODDY Administration Diphenhydramine HCl 50 mg 03/18/22 12:34 03/20/22 05:46 Diphenhydramine Capsule 25 Mg Cap PO 04/17/22 12:33 50 mg Q6H PRN Administration Itching Duloxetine HCl 60 mg 03/18/22 09:00 03/29/22 08:41 Duloxetine Hcl 60 Mg Cap PO 04/17/22 08:59 60 mg QAM RODDY Administration Duloxetine HCl 30 mg 03/18/22 09:00 03/29/22 08:42 Duloxetine Hcl 30 Mg Cap PO 04/17/22 08:59 30 mg QAM RODDY Administration Guaifenesin 600 mg 03/17/22 19:19 03/29/22 08:41 Guaifenesin 600 Mg Tabcr PO 04/16/22 19:18 600 mg BID PRN Administration cough Heparin Sodium (Beef Lung) 5 ml 03/27/22 02:43 03/28/22 13:03 Heparin 10 Unit/Ml 5 Ml Flush FLUSH 04/26/22 02:42 5 ml PRN PRN Administration Flush Hydrocortisone 1 appln 03/20/22 03:10 03/22/22 17:55 Hydrocortisone 1% Crm 30 Gm Tube EXT 04/19/22 03:09 1 appln BID PRN Administration rash or itching Daptomycin 450 mg/ Syringe 9 mls @ 4.5 mls/min 03/28/22 12:00 03/28/22 13:03 IV 04/11/22 11:59 4.5 mls/min Q48H RODDY Administration Protocol Insulin Glargine 15 units 03/28/22 21:00 03/29/22 08:53 Lantus Per Unit Charge SQ 04/27/22 20:59 15 units BID RODDY Administration Isosorbide Mononitrate 30 mg 03/18/22 09:00 03/29/22 08:42 Isosorbide [place] Extended Rel 30 Mg Tabcr PO 04/17/22 08:59 30 mg QAM RODDY Administration Levothyroxine Sodium 50 mcg 03/18/22 06:30 03/29/22 06:01 Levothyroxine Sodium 50 Mcg Tablet PO 04/17/22 06:29 50 mcg DAILYBB RODDY Administration Magnesium Oxide 400 mg 03/17/22 21:00 03/29/22 08:41 Magnesium Oxide 400 Mg Tab PO 04/16/22 20:59 400 mg BID RODDY Administration Metoprolol Succinate 150 mg 03/17/22 21:00 03/29/22 08:41 Metoprolol Succ 50mg Ext Rel Tab PO 04/16/22 20:59 150 mg BID RODDY Administration Mirtazapine 15 mg 03/17/22 21:00 03/28/22 21:17 Mirtazapine Tab 15 Mg Tab PO 04/16/22 20:59 15 mg HS RODDY Administration Multi-Ingredient Cream 1 appln 03/20/22 10:14 03/28/22 19:50 Eucerin Cr 120 Gm Jar EXT 04/19/22 10:13 1 appln [id number] PRN Administration Itching Nystatin 1 appln 03/26/22 21:00 03/29/22 08:43 Nystatin Powder 15gm Btl EXT 04/25/22 20:59 1 appln BID RODDY Administration Pantoprazole Sodium 40 mg 03/18/22 09:00 03/29/22 08:42 Pantoprazole 40 Mg Tab PO 04/17/22 08:59 40 mg QAM RODDY Administration Polyethylene Glycol 8.5 gm 03/17/22 19:19 03/25/22 07:40 Polyethylene (Miralax) 17 Gm Pack PO 04/16/22 19:18 8.5 gm DAILY PRN Administration Constipation Polysaccharide Iron Complex 150 mg 03/18/22 09:00 03/29/22 08:42 Iron Polysaccharide Complex 150 Mg Capsule PO 04/17/22 08:59 150 mg QAM RODDY Administration Potassium Chloride 20 meq 03/26/22 14:00 03/29/22 14:52 Potassium Chloride Crtab 20 Meq Tabcr PO 04/25/22 13:59 20 meq TID RODDY Administration Vitamin D 2,000 units 03/18/22 09:00 03/29/22 08:41 Cholecalciferol 1,000 Units 25 Mcg Tab PO 04/17/22 08:59 2,000 units QAM RODDY Administration PG Care Time/CCT Total # of Minutes Spent Total Time Spent with Patient: Total time spent is greater than 50% in coordination of care (as documented) at patient's floor/unit and/or counseling patient: Coding Level of Care Code 96900 Subseq Hosp Care Lvl 2 Diagnoses MRSA bacteremia R78.81; B95.62 Hypoxia R09.02 Chronic kidney disease (CKD) N18.9 Pruritus L29.9 Elevated troponin R77.8 Acute leg pain M79.606 Laterality: unspecified laterality Anemia D64.9 Anemia type: unspecified type Cirrhosis K74.60 Chronic heart failure with preserved ejection fraction (HFpEF) I50.32 Hyperlipidemia E78.5 History of gout Z87.39 Depression with anxiety F41.8 Cerebrovascular disease I67.9 Atrial fibrillation I48.91 Atrial fibrillation type: unspecified Obstructive sleep apnea G47.33 Hypothyroidism E03.9 Hypothyroidism type: unspecified COPD (chronic obstructive pulmonary disease) J44.9 GERD (gastroesophageal reflux disease) K21.9 Esophagitis presence: esophagitis presence not specified Diabetes mellitus, type II E11.9 Hypertension I10 (1) Acute leg pain Laterality: unspecified laterality Qualified Code(s): M79.606 - Pain in leg, unspecified (2) Anemia Anemia type: unspecified type Qualified Code(s): D64.9 - Anemia, unspecified (3) Atrial fibrillation Atrial fibrillation type: unspecified Qualified Code(s): I48.91 - Unspecified atrial fibrillation (4) Hypothyroidism Hypothyroidism type: unspecified Qualified Code(s): E03.9 - Hypothyroidism, unspecified (5) GERD (gastroesophageal reflux disease) Esophagitis presence: esophagitis presence not specified Qualified Code(s): K21.9 - Gastro-esophageal reflux disease without esophagitis
[2022-03-29] MEDS: MIRTAZAPINE TAB 15 MG TAB PO SCH (20:22)
[2022-03-29] MEDS: amLODIPine BESYLATE 5 MG TAB PO SCH (20:23)
[2022-03-30] MEDS: LEVOTHYROXINE SODIUM 50 MCG TABLET PO SCH (05:47)
[2022-03-30] MEDS: BUMETANIDE 1 MG TAB PO SCH ×2 (08:49→17:08)
[2022-03-30] MEDS: IRON POLYSACCHARIDE COMPLEX 150 MG CAPSULE PO SCH (08:49)
[2022-03-30] MEDS: CLOPIDOGREL BISULFATE 75 MG TAB PO SCH (08:50)
[2022-03-30] MEDS: PANTOprazole 40 MG TAB PO SCH (08:50)
[2022-03-30] MEDS: DULoxetine HCL 30 MG CAP PO SCH (08:50)
[2022-03-30] MEDS: CHOLECALCIFEROL 1,000 UNITS 25 MCG TAB PO SCH (08:51)
[2022-03-30] MEDS: ISOSORBIDE MONO EXTENDED REL 30 MG TABCR PO SCH (08:51)
[2022-03-30] MEDS: DULoxetine HCL 60 MG CAP PO SCH (08:51)
[2022-03-30] MEDS: allopurinoL 300 MG TAB PO SCH (08:51)
[2022-03-30] MEDS: MAGNESIUM OXIDE 400 MG TAB PO SCH ×2 (08:52→20:13)
[2022-03-30] MEDS: CYPROHEPTADINE HCL 4 MG TAB PO SCH ×2 (08:52→20:16)
[2022-03-30] MEDS: APIXABAN 2.5 MG TAB PO SCH ×2 (08:52→20:14)
[2022-03-30] MEDS: POTASSIUM CHLORIDE CRTAB 20 MEQ TABCR PO SCH ×3 (08:52→20:17)
[2022-03-30] MEDS: METOPROLOL SUCC 50MG EXT REL TAB PO SCH ×2 (08:52→20:14)
[2022-03-30] MEDS: LANTUS PER UNIT CHARGE SQ SCH ×2 (08:54→22:16)
[2022-03-30] MEDS: NYSTATIN POWDER 15GM BTL EXT SCH ×2 (08:58→20:18)
[2022-03-30] MEDS: ALBUT/IPRATROP 3MG/0.5MG NEB 3 ML VIAL NEB PRN (12:09)
[2022-03-30] MEDS: DAPTOmycin 450 MG in SYRINGE 0 ML IV SCH (12:47)
[2022-03-30] MEDS: DIGOXIN 0.125 MG TAB PO SCH (17:06)
--- NOTE | 2022-03-30 18:09 | Hospitalist Progress Note ---
Date of Service March 30, 2022 Assessment & Plan (1) MRSA bacteremia: Plan: Vancomycin has been switched to daptomycin. Appreciate infectious disease recommendations. Follow-up blood cultures are negative. CT scan reveals partial visualization of the bladder stimulator and lead with no evidence of infection. TTE negative for evidence of vegetations. ID Dr Dupont suspects possible skin source because the patient scratches herself continually. Low- dose cyproheptadine ordered for the pruritus has helped according to the patient. Plan to give 4 weeks of daptomycin through April 18.. PICC line has been placed in the left upper extremity. (2) Hypoxia: Plan: Acute hypoxic respiratory failure has now resolved. She is stable on room air. Was felt to be COPD exacerbation. Now resolved and baseline For persistent cough, nebulizer treatments which she occasionally takes at home she is (3) Chronic kidney disease (CKD): Plan: ARF on CKD stage IIIon home dose of Bumex. Mild. Home lisinopril being held. Metoprolol 150 twice daily ongoing. Creatinine 1.6 03/29 Check BMP a.m.potassium chloride 20 mequivalent twice daily [id number] (4) Pruritus: Plan: No rash. Pruritus is chronic. Low-dose cyproheptadine started on March 26 has helped with itching according to the patient. She does not have jaundice, and I doubt her pruritus is associated with any underlying chronic liver disease. Significant xerosis of the skinEucerin cream and gentle soaps prescribed earlier this admission Stop hydrocortisone ordered on admission-no rash and this is notable and generalized pruritus. (5) Elevated troponin: Plan: No evidence of acute coronary syndrome. Telemetry revealed atrial fibrillation with controlled rate. Telemetry has been discontinued. (6) Acute leg pain: Plan: Resolved. Right leg venous Doppler negative for DVT (7) Anemia: Plan: Macrocytic in the presence of normal B12 and folate as recently as 03/18/22. 1 g drop in the last 4-months (8) Cirrhosis: Plan: Currently stable. Continue current management. May be cryptogenic. She has not a drinker (9) Chronic heart failure with preserved ejection fraction (HFpEF): Plan: BNP chronically elevated. This is chronic with no acute exacerbation this admission. Continue current medical management. Monitor intake and output. Bumex 2 mg twice daily with potassium added. History of CAD on isosorbide (10) Hyperlipidemia: Plan: Continue statin . Low-cholesterol diet (11) History of gout: Plan: [place] allopurinol (12) Depression with anxiety: Plan: Continue duloxetine and HS remeron (13) Cerebrovascular disease: Plan: Continue plavix (14) Atrial fibrillation: Plan: Rate controlled with current medical management. Not on telemetry. Continue Eliquis, metoprolol, Digoxin (15) Obstructive sleep apnea: Plan: HS CPAP ordered. Stable (16) Hypothyroidism: Plan: Continue levothyroxine . Stable (17) COPD (chronic obstructive pulmonary disease): Plan: Admitted with acute exacerbation. Now at baseline. Continue current medical management. Use inhaler as needed (18) GERD (gastroesophageal reflux disease): Plan: Continue pantoprazole (19) Diabetes mellitus, type II: Plan: She had developed hypoglycemia earlier this admission. Lantus had been discontinued but then restarted on , March 26, at a lower dose. Dosage uptitrated March 28, due to developing hyperglycemia now. Fasting blood sugar 95 today, 227 nonfasting around lunch Lantus 15 units SQ twice daily ongoing (20) Hypertension: Plan: Stable with current medical management . Metoprolol 150 twice daily home dose. Amlodipine 10 mg at bedtime started here. Plan She will need SNF placement at discharge to complete her 4-week course of intravenous daptomycin. Probably either to [facility] or [facility]. Daptomycin through April 18. Admission and Anticipated Discharge Date Admission Date: March 17, 2022 Subjective At 1140, says she had trouble breathing last night. RN reports that oxygen was put on just for comfort and sats are fine on room air. Eating well. Cough is improved and is dry says patient. 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 gait not observed, Results & Data Results & Data ([facility]) Vital Signs (Past 12 Hours) Vital Signs Temp Pulse Pulse Resp BP Pulse Ox O2 Del Method 03/30/22 17:06 88 03/30/22 17:05 84 18 92 Room Air 03/30/22 14:32 36.2 C L 82 18 114/71 96 Room Air 03/30/22 12:11 76 20 99 Nasal Cannula 03/30/22 07:45 Nasal Cannula 03/30/22 07:01 36.3 C L 70 16 117/67 100 Nasal Cannula O2 Flow Rate 03/30/22 17:06 03/30/22 17:05 03/30/22 14:32 03/30/22 12:11 3 03/30/22 07:45 1 03/30/22 07:01 3.5 Laboratory Results Abnormal lab results 03/29/22 03/30/22 03/30/22 Range/Units 20:31 12:10 17:00 POC Glucose 218 H 238 H 227 H (70-99) mg/dl Medications Administered Home Medications Medication Instructions Recorded Confirmed Last Taken cholecalciferol (vitamin D3) 25 2,000 unit PO QAM 05/11/20 03/17/22 04/22/21 mcg (1,000 unit) tablet (Vitamin D3) polyethylene glycol 3350 17 8.5 g PO DAILY PRN Constipation 01/28/21 03/17/22 Unknown gram/dose oral powder (Miralax) vit C 226 mg-vit E 90 mg-copper 1 cap PO BID 02/01/21 03/17/22 04/22/21 0.8 mg-zinc oxide-lutein 5 mg capsule (PreserVision Lutein) allopurinol 100 mg tablet 300 mg PO QAM #90 tabs 12/16/21 03/17/22 Unknown (Zyloprim) apixaban 2.5 mg tablet (Eliquis) 2.5 mg PO BID #180 tabs 12/16/21 03/17/22 Unknown bumetanide 2 mg tablet 2 mg PO BID #60 tabs 12/16/21 03/17/22 Unknown clopidogrel 75 mg tablet (Plavix) 75 mg PO QAM #90 tabs 12/16/21 03/17/22 Unknown digoxin 125 mcg (0.125 mg) tablet 125 mcg PO Q2D #15 tabs 12/16/21 03/17/22 Unknown (Digitek) duloxetine 30 mg capsule,delayed 30 mg PO QAM #90 caps 12/16/21 03/17/22 Unknown release (Cymbalta) duloxetine 60 mg capsule,delayed 60 mg PO QAM #90 caps 12/16/21 03/17/22 Unknown release (Cymbalta) isosorbide mononitrate 30 mg 30 mg PO QAM #90 tabs 12/16/21 03/17/22 Unknown tablet,extended release 24 hr levothyroxine 50 mcg tablet 50 mcg PO DAILYBB #30 tabs 12/16/21 03/17/22 Unknown (Synthroid) magnesium oxide 400 mg PO BID #180 tabs 12/16/21 03/17/22 Unknown metoprolol succinate 50 mg 150 mg PO BID #540 tabs 12/16/21 03/17/22 Unknown tablet,extended release 24 hr (Toprol XL) mirtazapine 15 mg tablet (Remeron) 15 mg PO HS #30 tabs 12/16/21 03/17/22 Unknown pantoprazole 40 mg tablet,delayed 40 mg PO QAM #90 tabs 12/16/21 03/17/22 Unknown release (Protonix) polysaccharide iron complex 150 mg 150 mg PO QAM #90 caps 12/16/21 03/17/22 Unknown iron capsule (Ferrex) potassium chloride 20 mEq 10 meq PO BID #180 tabs 12/16/21 03/17/22 Unknown tablet,extended release (K-Tab) insulin glargine 100 unit/mL (3 28 unit (0.28 mL) subcut HS #15 mL 12/18/21 03/17/22 Unknown mL) subcutaneous pen (Lantus Solostar U-100 Insulin) glucagon 1 mg solution for 1 mg subcut Q20M PRN hypoglycemia 01/02/22 03/17/22 Unknown injection (Glucagon Emergency Kit) #1 ea nitroglycerin 0.3 mg sublingual 0.3 mg sublingual Q5M PRN Chest 01/17/22 03/17/22 Unknown tablet Pain nystatin 100,000 unit/gram topical 1 applic topical TID 2 weeks #30 01/21/22 03/17/22 Unknown cream grams insulin aspart U-100 100 unit/mL 7 - 10 unit (0.07 - 0.1 mL) subcut 02/04/22 03/17/22 Unknown (3 mL) subcutaneous pen (Novolog TIDM #45 mL Flexpen U-100 Insulin aspart) clobetasol 0.05 % topical cream 1 applic topical BID #30 grams 02/19/22 03/17/22 Unknown guaifenesin 600 mg tablet, 600 mg PO BID PRN cough #60 tabs 03/13/22 03/17/22 Unknown extended release 12 hr Active Medications Generic Name Dose Route Start Last Admin Trade Name Jimenezq PRN Reason Stop Dose Admin Acetaminophen 650 mg 03/17/22 19:19 03/29/22 06:01 Acetaminophen 325 Mg Tab PO 04/16/22 19:18 650 mg Q4H PRN Administration Pain (1,2,3) Or Fever Albuterol 3 ml 03/18/22 09:24 03/30/22 12:09 Albut/Ipratrop 3mg/0.5mg Neb 3 Ml Vial NEB 04/16/22 18:59 3 ml Q4R PRN Administration Shortness Of Breath Or Wheezing Protocol Albuterol 2 puffs 03/28/22 16:41 03/29/22 17:18 Albuterol Hfa 8 Gm Inhaler INH 04/24/22 19:35 2 puffs BIDR PRN Administration Wheezing Allopurinol 300 mg 03/18/22 09:00 03/30/22 08:51 Allopurinol 300 Mg Tab PO 04/17/22 08:59 300 mg QAM RODDY Administration Amlodipine Besylate 10 mg 03/24/22 21:00 03/29/22 20:23 Amlodipine Besylate 5 Mg Tab PO 04/23/22 20:59 10 mg HS RODDY Administration Apixaban 2.5 mg 03/17/22 21:00 03/30/22 08:52 Apixaban 2.5 Mg Tab PO 04/16/22 20:59 2.5 mg BID RODDY Administration Benzonatate 100 mg 03/19/22 00:26 03/29/22 16:09 Benzonatate 100 Mg Capsule PO 04/18/22 00:25 100 mg TID PRN Administration Cough Bumetanide 2 mg 03/17/22 19:45 03/30/22 17:08 Bumetanide 1 Mg Tab PO 04/16/22 19:44 2 mg BID17 RODDY Administration Clopidogrel Bisulfate 75 mg 03/18/22 09:00 03/30/22 08:50 Clopidogrel Bisulfate 75 Mg Tab PO 04/17/22 08:59 75 mg QAM RODDY Administration Cyproheptadine HCl 4 mg 03/26/22 14:15 03/30/22 08:52 Cyproheptadine Hcl 4 Mg Tab PO 04/25/22 14:14 4 mg Q12 RODDY Administration Diclofenac Sodium 2 gm 03/22/22 17:26 03/24/22 02:11 Diclofenac Sod 1% Gel 100 Gm Tube EXT 04/21/22 17:25 2 gm Q4H PRN Administration Pain Protocol Digoxin 0.125 mg 03/18/22 16:00 03/30/22 17:06 Digoxin 0.125 Mg Tab PO 04/17/22 15:59 0.125 mg Q2D@1600 RODDY Administration Diphenhydramine HCl 50 mg 03/18/22 12:34 03/20/22 05:46 Diphenhydramine Capsule 25 Mg Cap PO 04/17/22 12:33 50 mg Q6H PRN Administration Itching Duloxetine HCl 60 mg 03/18/22 09:00 03/30/22 08:51 Duloxetine Hcl 60 Mg Cap PO 04/17/22 08:59 60 mg QAM RODDY Administration Duloxetine HCl 30 mg 03/18/22 09:00 03/30/22 08:50 Duloxetine Hcl 30 Mg Cap PO 04/17/22 08:59 30 mg QAM RODDY Administration Guaifenesin 600 mg 03/17/22 19:19 03/29/22 08:41 Guaifenesin 600 Mg Tabcr PO 04/16/22 19:18 600 mg BID PRN Administration cough Heparin Sodium (Beef Lung) 5 ml 03/27/22 02:43 03/28/22 13:03 Heparin 10 Unit/Ml 5 Ml Flush FLUSH 04/26/22 02:42 5 ml PRN PRN Administration Flush Hydrocortisone 1 appln 03/20/22 03:10 03/22/22 17:55 Hydrocortisone 1% Crm 30 Gm Tube EXT 04/19/22 03:09 1 appln BID PRN Administration rash or itching Daptomycin 450 mg/ Syringe 9 mls @ 4.5 mls/min 03/28/22 12:00 03/30/22 12:47 IV 04/11/22 11:59 4.5 mls/min Q48H RODDY Administration Protocol Insulin Glargine 15 units 03/28/22 21:00 03/30/22 08:54 Lantus Per Unit Charge SQ 04/27/22 20:59 15 units BID RODDY Administration Isosorbide Mononitrate 30 mg 03/18/22 09:00 03/30/22 08:51 Isosorbide [place] Extended Rel 30 Mg Tabcr PO 04/17/22 08:59 30 mg QAM RODDY Administration Levothyroxine Sodium 50 mcg 03/18/22 06:30 03/30/22 05:47 Levothyroxine Sodium 50 Mcg Tablet PO 04/17/22 06:29 50 mcg DAILYBB RODDY Administration Magnesium Oxide 400 mg 03/17/22 21:00 03/30/22 08:52 Magnesium Oxide 400 Mg Tab PO 04/16/22 20:59 400 mg BID RODDY Administration Metoprolol Succinate 150 mg 03/17/22 21:00 03/30/22 08:52 Metoprolol Succ 50mg Ext Rel Tab PO 04/16/22 20:59 150 mg BID RODDY Administration Mirtazapine 15 mg 03/17/22 21:00 03/29/22 20:22 Mirtazapine Tab 15 Mg Tab PO 04/16/22 20:59 15 mg HS RODDY Administration Multi-Ingredient Cream 1 appln 03/20/22 10:14 03/28/22 19:50 Eucerin Cr 120 Gm Jar EXT 04/19/22 10:13 1 appln [id number] PRN Administration Itching Nystatin 1 appln 03/26/22 21:00 03/30/22 08:58 Nystatin Powder 15gm Btl EXT 04/25/22 20:59 1 appln BID RODDY Administration Pantoprazole Sodium 40 mg 03/18/22 09:00 03/30/22 08:50 Pantoprazole 40 Mg Tab PO 04/17/22 08:59 40 mg QAM RODDY Administration Polyethylene Glycol 8.5 gm 03/17/22 19:19 03/25/22 07:40 Polyethylene (Miralax) 17 Gm Pack PO 04/16/22 19:18 8.5 gm DAILY PRN Administration Constipation Polysaccharide Iron Complex 150 mg 03/18/22 09:00 03/30/22 08:49 Iron Polysaccharide Complex 150 Mg Capsule PO 04/17/22 08:59 150 mg QAM RODDY Administration Potassium Chloride 20 meq 03/26/22 14:00 03/30/22 12:47 Potassium Chloride Crtab 20 Meq Tabcr PO 04/25/22 13:59 20 meq TID RODDY Administration Vitamin D 2,000 units 03/18/22 09:00 03/30/22 08:51 Cholecalciferol 1,000 Units 25 Mcg Tab PO 04/17/22 08:59 2,000 units QAM RODDY Administration PG Care Time/CCT Total # of Minutes Spent Total Time Spent with Patient: Total time spent is greater than 50% in coordination of care (as documented) at patient's floor/unit and/or counseling patient: Coding Level of Care Code 22513 Subseq Hosp Care Lvl 2 Diagnoses MRSA bacteremia R78.81; B95.62 Hypoxia R09.02 Chronic kidney disease (CKD) N18.9 Pruritus L29.9 Elevated troponin R77.8 Acute leg pain M79.606 Laterality: unspecified laterality Anemia D64.9 Anemia type: unspecified type Cirrhosis K74.60 Chronic heart failure with preserved ejection fraction (HFpEF) I50.32 Hyperlipidemia E78.5 History of gout Z87.39 Depression with anxiety F41.8 Cerebrovascular disease I67.9 Atrial fibrillation I48.91 Atrial fibrillation type: unspecified Obstructive sleep apnea G47.33 Hypothyroidism E03.9 Hypothyroidism type: unspecified COPD (chronic obstructive pulmonary disease) J44.9 GERD (gastroesophageal reflux disease) K21.9 Esophagitis presence: esophagitis presence not specified Diabetes mellitus, type II E11.9 Hypertension I10 (1) Acute leg pain Laterality: unspecified laterality Qualified Code(s): M79.606 - Pain in leg, unspecified (2) Anemia Anemia type: unspecified type Qualified Code(s): D64.9 - Anemia, unspecified (3) Atrial fibrillation Atrial fibrillation type: unspecified Qualified Code(s): I48.91 - Unspecified atrial fibrillation (4) Hypothyroidism Hypothyroidism type: unspecified Qualified Code(s): E03.9 - Hypothyroidism, unspecified (5) GERD (gastroesophageal reflux disease) Esophagitis presence: esophagitis presence not specified Qualified Code(s): K21.9 - Gastro-esophageal reflux disease without esophagitis
[2022-03-30] MEDS: BENZONATATE 100 MG CAPSULE PO PRN (20:13)
[2022-03-30] MEDS: MIRTAZAPINE TAB 15 MG TAB PO SCH (20:16)
[2022-03-30] MEDS: amLODIPine BESYLATE 5 MG TAB PO SCH (20:17)
[2022-03-31] MEDS: LEVOTHYROXINE SODIUM 50 MCG TABLET PO SCH (05:48)
[2022-03-31 08:25] LABS: BUN Creatinine Ratio 27.7 (10-20); Calcium 8.4 mg/dl (8.5-10.1); Creatinine Clr Calc Pharmacy 18.5 ml/min; Est GFR (African American) 32.2 ml/min; Est GFR (Non-African American) 27.8 ml/min; Magnesium 2.3 mg/dl (1.7-2.4)
[2022-03-31] MEDS: POTASSIUM CHLORIDE CRTAB 20 MEQ TABCR PO SCH ×3 (08:51→19:35)
[2022-03-31] MEDS: PANTOprazole 40 MG TAB PO SCH (08:52)
[2022-03-31] MEDS: APIXABAN 2.5 MG TAB PO SCH ×2 (08:52→19:37)
[2022-03-31] MEDS: DULoxetine HCL 60 MG CAP PO SCH (08:52)
[2022-03-31] MEDS: CHOLECALCIFEROL 1,000 UNITS 25 MCG TAB PO SCH (08:52)
[2022-03-31] MEDS: CLOPIDOGREL BISULFATE 75 MG TAB PO SCH (08:52)
[2022-03-31] MEDS: DULoxetine HCL 30 MG CAP PO SCH (08:52)
[2022-03-31] MEDS: CYPROHEPTADINE HCL 4 MG TAB PO SCH ×2 (08:52→19:34)
[2022-03-31] MEDS: BUMETANIDE 1 MG TAB PO SCH ×2 (08:52→16:58)
[2022-03-31] MEDS: IRON POLYSACCHARIDE COMPLEX 150 MG CAPSULE PO SCH (08:52)
[2022-03-31] MEDS: allopurinoL 300 MG TAB PO SCH (08:52)
[2022-03-31] MEDS: METOPROLOL SUCC 50MG EXT REL TAB PO SCH ×2 (08:52→19:34)
[2022-03-31] MEDS: NYSTATIN POWDER 15GM BTL EXT SCH ×2 (08:53→19:36)
[2022-03-31] MEDS: ISOSORBIDE MONO EXTENDED REL 30 MG TABCR PO SCH (08:53)
[2022-03-31] MEDS: MAGNESIUM OXIDE 400 MG TAB PO SCH ×2 (08:53→19:34)
[2022-03-31] MEDS: LANTUS PER UNIT CHARGE SQ SCH ×2 (09:23→22:06)
[2022-03-31] MEDS: BENZONATATE 100 MG CAPSULE PO PRN ×2 (13:43→19:34)
[2022-03-31] MEDS: EUCERIN CR 120 GM JAR EXT PRN (14:53)
[2022-03-31] MEDS: diphenhydrAMINE Capsule 25 MG CAP PO PRN (19:33)
[2022-03-31] MEDS: MIRTAZAPINE TAB 15 MG TAB PO SCH (19:34)
[2022-03-31] MEDS: amLODIPine BESYLATE 5 MG TAB PO SCH (19:37)
[2022-03-31] MEDS: guaiFENesin 600 MG TABCR PO PRN (20:02)
--- NOTE | 2022-03-31 21:57 | Hospitalist Progress Note ---
Date of Service March 31, 2022 Assessment & Plan (1) MRSA bacteremia: Plan: Daptomycin appreciate infectious disease recommendations. Follow-up blood cultures are negative. CT scan reveals partial visualization of the bladder stimulator and lead with no evidence of infection. TTE negative for evidence of vegetations. ID Dr Dupont suspects possible skin source because the patient scratches herself continually. Low-dose cyproheptadine ordered for the pruritus has helped according to the patient. Plan to give 4 weeks of daptomycin through April 18.. PICC line has been placed in the left upper extremity. (2) Hypoxia: Plan: Acute hypoxic respiratory failure has now resolved. She is stable on room air. Was felt to be COPD exacerbation. Now resolved and baseline For persistent cough, nebulizer treatments which she occasionally takes at home she is (3) Chronic kidney disease (CKD): Plan: ARF on CKD stage IIIon home dose of Bumex. Mild. Home lisinopril being held. Metoprolol 150 twice daily ongoing. Creatinine 1.6 03/29 Check BMP a.m.potassium chloride 20 mequivalent twice daily [id number] (4) Pruritus: Plan: No rash. Pruritus is chronic. Low-dose cyproheptadine started on March 26 has helped with itching according to the patient. She does not have jaundice, and I doubt her pruritus is associated with any underlying chronic liver disease. Significant xerosis of the skinEucerin cream and gentle soaps prescribed earlier this admission Stop hydrocortisone ordered on admission-no rash and this is not effective or recommended in generalized pruritus. (5) Elevated troponin: Plan: No evidence of acute coronary syndrome. Telemetry revealed atrial fibrillation with controlled rate. Telemetry has been discontinued. (6) Acute leg pain: Plan: Resolved. Right leg venous Doppler negative for DVT (7) Anemia: Plan: Macrocytic in the presence of normal B12 and folate as recently as 03/18/22. 1 g drop in the last 4-months (8) Cirrhosis: Plan: Currently stable. Continue current management. May be cryptogenic. She has not a drinker (9) Chronic heart failure with preserved ejection fraction (HFpEF): Plan: BNP chronically elevated. This is chronic with no acute exacerbation this admission. Continue current medical management. Monitor intake and output. Bumex 2 mg twice daily with potassium added. History of CAD on isosorbide (10) Hyperlipidemia: Plan: Continue statin . Low-cholesterol diet (11) History of gout: Plan: [place]ue allopurinol (12) Depression with anxiety: Plan: Continue duloxetine and HS remeron (13) Cerebrovascular disease: Plan: Continue plavix (14) Atrial fibrillation: Plan: Rate controlled with current medical management. Not on telemetry. Continue Eliquis, metoprolol, Digoxin (15) Obstructive sleep apnea: Plan: HS CPAP -patient stopped using several years ago. Nocturnal 2 L oxygen she is willing to use and ordered today 04/01 Advised about the risk of developing heart failure with untreated sleep apnea. Son was at the bedside (16) Hypothyroidism: Plan: Continue levothyroxine . Stable (17) COPD (chronic obstructive pulmonary disease): Plan: Admitted with acute exacerbation. Now at baseline. Continue current medical management. Use inhaler as needed (18) GERD (gastroesophageal reflux disease): Plan: Continue pantoprazole (19) Diabetes mellitus, type II: Plan: She had developed hypoglycemia earlier this admission. Lantus had been discontinued but then restarted on , March 26, at a lower dose. Dosage uptitrated March 28, due to developing hyperglycemia now. Fasting blood sugar 95 today, 227 nonfasting around lunch Lantus 15 units SQ twice daily ongoing (20) Hypertension: Plan: Stable with current medical management . Metoprolol 150 twice daily home dose. Amlodipine 10 mg at bedtime started here. Plan She will need SNF placement at discharge to complete her 4-week course of intravenous daptomycin. Probably either to [facility] or [facility]. Daptomycin through April 18. Admission and Anticipated Discharge Date Admission Date: March 17, 2022 Subjective Seen in the afternoon and had no complaints. Nursing reported the patient was hypoxemic with sats 87% on room air while asleep overnight. 90% on more than 1- 1/2 L was put on. The patient's son was at the bedside today and stated that she stopped using her prescribed CPAP many years ago. Patient says she sits sleeping up because of nausea from reflux and her son corroborates that. The patient has stated that she sleeps sleeps sitting up for shortness of breath to me some days before Patient has no complaints except for nobody giving her a heel nail rasper to clip off part of a protruding nail on her nailbed Physical Exam Physical Exam: Alert pleasant overweight lady, sitting in bed, lucid, well oriented to place and person Head and neck moist tongue Normal insight and judgment Chest: Clear to auscultation anteriorly CVS S1-S2 systolic ejection murmur grade 2 Extremities all fingernails covering only half of the bed and ragged, one of the digits had eschar had a sharp protruding remnant of the nail Upper extremity skin very dry again today [employer] gait not observed, Results & Data Results & Data ([facility]) Vital Signs (Past 12 Hours) Vital Signs Temp Pulse Resp BP Pulse Ox O2 Del Method O2 Flow Rate 03/31/22 19:51 94 Nasal Cannula 2 03/31/22 19:30 36.9 C 18 125/73 89 L Room Air 03/31/22 15:00 36.5 C 83 18 113/76 96 Nasal Cannula 1 Laboratory Results Abnormal lab results 03/31/22 03/31/22 03/31/22 Range/Units 07:42 12:20 17:12 Carbon Dioxide 33 H (21-32) mmol/L BUN 46 H (6-23) mg/dl Creatinine 1.66 H (0.6-1.2) mg/dl BUN/Creatinine Ratio 27.7 H (10-20) POC Glucose 209 H 178 H (70-99) mg/dl Calcium 8.4 L (8.5-10.1) mg/dl 03/31/22 Range/Units 20:26 Carbon Dioxide (21-32) mmol/L BUN (6-23) mg/dl Creatinine (0.6-1.2) mg/dl BUN/Creatinine Ratio (10-20) POC Glucose 168 H (70-99) mg/dl Calcium (8.5-10.1) mg/dl Medications Administered Home Medications Medication Instructions Recorded Confirmed Last Taken cholecalciferol (vitamin D3) 25 2,000 unit PO QAM 05/11/20 03/17/22 04/22/21 mcg (1,000 unit) tablet (Vitamin D3) polyethylene glycol 3350 17 8.5 g PO DAILY PRN Constipation 01/28/21 03/17/22 Unknown gram/dose oral powder (Miralax) vit C 226 mg-vit E 90 mg-copper 1 cap PO BID 02/01/21 03/17/22 04/22/21 0.8 mg-zinc oxide-lutein 5 mg capsule (PreserVision Lutein) allopurinol 100 mg tablet 300 mg PO QAM #90 tabs 22 03/17/22 Unknown (Zyloprim) apixaban 2.5 mg tablet (Eliquis) 2.5 mg PO BID #180 tabs 12/16/21 03/17/22 Unknown bumetanide 2 mg tablet 2 mg PO BID #60 tabs 12/16/21 03/17/22 Unknown clopidogrel 75 mg tablet (Plavix) 75 mg PO QAM #90 tabs 12/16/21 03/17/22 Unknown digoxin 125 mcg (0.125 mg) tablet 125 mcg PO Q2D #15 tabs 12/16/21 03/17/22 Unknown (Digitek) duloxetine 30 mg capsule,delayed 30 mg PO QAM #90 caps 12/16/21 03/17/22 Unknown release (Cymbalta) duloxetine 60 mg capsule,delayed 60 mg PO QAM #90 caps 12/16/21 03/17/22 Unknown release (Cymbalta) isosorbide mononitrate 30 mg 30 mg PO QAM #90 tabs 12/16/21 03/17/22 Unknown tablet,extended release 24 hr levothyroxine 50 mcg tablet 50 mcg PO DAILYBB #30 tabs 12/16/21 03/17/22 Unknown (Synthroid) magnesium oxide 400 mg PO BID #180 tabs 12/16/21 03/17/22 Unknown metoprolol succinate 50 mg 150 mg PO BID #540 tabs 12/16/21 03/17/22 Unknown tablet,extended release 24 hr (Toprol XL) mirtazapine 15 mg tablet (Remeron) 15 mg PO HS #30 tabs 12/16/21 03/17/22 Unknown pantoprazole 40 mg tablet,delayed 40 mg PO QAM #90 tabs 12/16/21 03/17/22 Unknow n release (Protonix) polysaccharide iron complex 150 mg 150 mg PO QAM #90 caps 12/16/21 03/17/22 Unknown iron capsule (Ferrex) potassium chloride 20 mEq 10 meq PO BID #180 tabs 12/16/21 03/17/22 Unknown tablet,extended release (K-Tab) insulin glargine 100 unit/mL (3 28 unit (0.28 mL) subcut HS #15 mL 12/18/21 03/17/22 Unknown mL) subcutaneous pen (Lantus Solostar U-100 Insulin) glucagon 1 mg solution for 1 mg subcut Q20M PRN hypoglycemia 01/02/22 03/17/22 Unknown injection (Glucagon Emergency Kit) #1 ea nitroglycerin 0.3 mg sublingual 0.3 mg sublingual Q5M PRN Chest 01/17/22 03/17/22 Unknown tablet Pain nystatin 100,000 unit/gram topical 1 applic topical TID 2 weeks #30 01/21/22 03/17/22 Unknown cream grams insulin aspart U-100 100 unit/mL 7 - 10 unit (0.07 - 0.1 mL) subcut 02/04/22 03/17/22 Unknown (3 mL) subcutaneous pen (Novolog TIDM #45 mL Flexpen U-100 Insulin aspart) clobetasol 0.05 % topical cream 1 applic topical BID #30 grams 02/19/22 03/17/22 Unknown guaifenesin 600 mg tablet, 600 mg PO BID PRN cough #60 tabs 03/13/22 03/17/22 Unknown extended release 12 hr Active Medications Generic Name Dose Route Start Last Admin Trade Name Freq PRN Reason Stop Dose Admin Acetaminophen 650 mg 03/17/22 19:19 03/29/22 06:01 Acetaminophen 325 Mg Tab PO 04/16/22 19:18 650 mg Q4H PRN Administration Pain (1,2,3) Or Fever Albuterol 3 ml 03/18/22 09:24 03/30/22 12:09 Albut/Ipratrop 3mg/0.5mg Neb 3 Ml Vial NEB 04/16/22 18:59 3 ml Q4R PRN Administration Shortness Of Breath Or Wheezing Protocol Albuterol 2 puffs 03/28/22 16:41 03/29/22 17:18 Albuterol Hfa 8 Gm Inhaler INH 04/24/22 19:35 2 puffs BIDR PRN Administration Wheezing Allopurinol 300 mg 03/18/22 09:00 03/31/22 08:52 Allopurinol 300 Mg Tab PO 04/17/22 08:59 300 mg QAM RODDY Administration Amlodipine Besylate 10 mg 03/24/22 21:00 03/31/22 19:37 Amlodipine Besylate 5 Mg Tab PO 04/23/22 20:59 10 mg HS RODDY Administration Apixaban 2.5 mg 03/17/22 21:00 03/31/22 19:37 Apixaban 2.5 Mg Tab PO 04/16/22 20:59 2.5 mg BID RODDY Administration Benzonatate 100 mg 03/19/22 00:26 03/31/22 19:34 Benzonatate 100 Mg Capsule PO 04/18/22 00:25 100 mg TID PRN Administration Cough Bumetanide 2 mg 03/17/22 19:45 03/31/22 16:58 Bumetanide 1 Mg Tab PO 04/16/22 19:44 2 mg BID17 RODDY Administration Clopidogrel Bisulfate 75 mg 03/18/22 09:00 03/31/22 08:52 Clopidogrel Bisulfate 75 Mg Tab PO 04/17/22 08:59 75 mg QAM RODDY Administration Cyproheptadine HCl 4 mg 03/26/22 14:15 03/31/22 19:34 Cyproheptadine Hcl 4 Mg Tab PO 04/25/22 14:14 4 mg Q12 RODDY Administration Diclofenac Sodium 2 gm 03/22/22 17:26 03/24/22 02:11 Diclofenac Sod 1% Gel 100 Gm Tube EXT 04/21/22 17:25 2 gm Q4H PRN Administration Pain Protocol Digoxin 0.125 mg 03/18/22 16:00 03/30/22 17:06 Digoxin 0.125 Mg Tab PO 04/17/22 15:59 0.125 mg Q2D@1600 RODDY Administration Diphenhydramine HCl 50 mg 03/18/22 12:34 03/31/22 19:33 Diphenhydramine Capsule 25 Mg Cap PO 04/17/22 12:33 50 mg Q6H PRN Administration Itching Duloxetine HCl 60 mg 03/18/22 09:00 03/31/22 08:52 Duloxetine Hcl 60 Mg Cap PO 04/17/22 08:59 60 mg QAM RODDY Administration Duloxetine HCl 30 mg 03/18/22 09:00 03/31/22 08:52 Duloxetine Hcl 30 Mg Cap PO 04/17/22 08:59 30 mg QAM RODDY Administration Guaifenesin 600 mg 03/17/22 19:19 03/31/22 20:02 Guaifenesin 600 Mg Tabcr PO 04/16/22 19:18 600 mg BID PRN Administration cough Heparin Sodium (Beef Lung) 5 ml 03/27/22 02:43 03/28/22 13:03 Heparin 10 Unit/Ml 5 Ml Flush FLUSH 04/26/22 02:42 5 ml PRN PRN Administration Flush Daptomycin 450 mg/ Syringe 9 mls @ 4.5 mls/min 03/28/22 12:00 03/30/22 12:47 IV 04/11/22 11:59 4.5 mls/min Q48H RODDY Administration Protocol Insulin Glargine 15 units 03/28/22 21:00 03/31/22 09:23 Lantus Per Unit Charge SQ 04/27/22 20:59 15 units BID RODDY Administration Isosorbide Mononitrate 30 mg 03/18/22 09:00 03/31/22 08:53 Isosorbide Heard Extended Rel 30 Mg Tabcr PO 04/17/22 08:59 30 mg QAM RODDY Administration Levothyroxine Sodium 50 mcg 03/18/22 06:30 03/31/22 05:48 Levothyroxine Sodium 50 Mcg Tablet PO 04/17/22 06:29 50 mcg DAILYBB RODDY Administration Magnesium Oxide 400 mg 03/17/22 21:00 03/31/22 19:34 Magnesium Oxide 400 Mg Tab PO 04/16/22 20:59 400 mg BID RODDY Administration Metoprolol Succinate 150 mg 03/17/22 21:00 03/31/22 19:34 Metoprolol Succ 50mg Ext Rel Tab PO 04/16/22 20:59 150 mg BID RODDY Administration Mirtazapine 15 mg 03/17/22 21:00 03/31/22 19:34 Mirtazapine Tab 15 Mg Tab PO 04/16/22 20:59 15 mg HS RODDY Administration Multi-Ingredient Cream 1 appln 03/20/22 10:14 03/31/22 14:53 Eucerin Cr 120 Gm Jar EXT 04/19/22 10:13 1 appln [id number] PRN Administration Itching Nystatin 1 appln 03/26/22 21:00 03/31/22 19:36 Nystatin Powder 15gm Btl EXT 04/25/22 20:59 1 appln BID RODDY Administration Pantoprazole Sodium 40 mg 03/18/22 09:00 03/31/22 08:52 Pantoprazole 40 Mg Tab PO 04/17/22 08:59 40 mg QAM RODDY Administration Polyethylene Glycol 8.5 gm 03/17/22 19:19 03/25/22 07:40 Polyethylene (Miralax) 17 Gm Pack PO 04/16/22 19:18 8.5 gm DAILY PRN Administration Constipation Polysaccharide Iron Complex 150 mg 03/18/22 09:00 03/31/22 08:52 Iron Polysaccharide Complex 150 Mg Capsule PO 04/17/22 08:59 150 mg QAM RODDY Administration Potassium Chloride 20 meq 03/26/22 14:00 03/31/22 19:35 Potassium Chloride Crtab 20 Meq Tabcr PO 04/25/22 13:59 20 meq TID RODDY Administration Vitamin D 2,000 units 03/18/22 09:00 03/31/22 08:52 Cholecalciferol 1,000 Units 25 Mcg Tab PO 04/17/22 08:59 2,000 units QAM RODDY Administration PG Care Time/CCT Total # of Minutes Spent Total Time Spent with Patient: Total time spent is greater than 50% in coordination of care (as documented) at patient's floor/unit and/or counseling patient: Coding Level of Care Code 33888 Subseq Hosp Care Lvl 2 Diagnoses MRSA bacteremia R78.81; B95.62 Hypoxia R09.02 Chronic kidney disease (CKD) N18.9 Pruritus L29.9 Elevated troponin R77.8 Acute leg pain M79.606 Laterality: unspecified laterality Anemia D64.9 Anemia type: unspecified type Cirrhosis K74.60 Chronic heart failure with preserved ejection fraction (HFpEF) I50.32 Hyperlipidemia E78.5 History of gout Z87.39 Depression with anxiety F41.8 Cerebrovascular disease I67.9 Atrial fibrillation I48.91 Atrial fibrillation type: unspecified Obstructive sleep apnea G47.33 Hypothyroidism E03.9 Hypothyroidism type: unspecified COPD (chronic obstructive pulmonary disease) J44.9 GERD (gastroesophageal reflux disease) K21.9 Esophagitis presence: esophagitis presence not specified Diabetes mellitus, type II E11.9 Hypertension I10 (1) Acute leg pain Laterality: unspecified laterality Qualified Code(s): M79.606 - Pain in leg, unspecified (2) Anemia Anemia type: unspecified type Qualified Code(s): D64.9 - Anemia, unspecified (3) Atrial fibrillation Atrial fibrillation type: unspecified Qualified Code(s): I48.91 - Unspecified atrial fibrillation (4) Hypothyroidism Hypothyroidism type: unspecified Qualified Code(s): E03.9 - Hypothyroidism, unspecified (5) GERD (gastroesophageal reflux disease) Esophagitis presence: esophagitis presence not specified Qualified Code(s): K21.9 - Gastro-esophageal reflux disease without esophagitis
[2022-04-01] MEDS: guaiFENesin 600 MG TABCR PO PRN (05:51)
[2022-04-01] MEDS: LEVOTHYROXINE SODIUM 50 MCG TABLET PO SCH (05:52)
[2022-04-01] MEDS: BENZONATATE 100 MG CAPSULE PO PRN ×2 (05:52→13:22)
[2022-04-01] MEDS: diphenhydrAMINE Capsule 25 MG CAP PO PRN (05:52)
[2022-04-01] MEDS: ALBUT/IPRATROP 3MG/0.5MG NEB 3 ML VIAL NEB PRN (07:55)
[2022-04-01] MEDS: DULoxetine HCL 60 MG CAP PO SCH (08:49)
[2022-04-01] MEDS: DULoxetine HCL 30 MG CAP PO SCH (08:49)
[2022-04-01] MEDS: PANTOprazole 40 MG TAB PO SCH (08:49)
[2022-04-01] MEDS: MAGNESIUM OXIDE 400 MG TAB PO SCH (08:49)
[2022-04-01] MEDS: APIXABAN 2.5 MG TAB PO SCH ×2 (08:49→20:32)
[2022-04-01] MEDS: allopurinoL 300 MG TAB PO SCH (08:50)
[2022-04-01] MEDS: CHOLECALCIFEROL 1,000 UNITS 25 MCG TAB PO SCH (08:50)
[2022-04-01] MEDS: METOPROLOL SUCC 50MG EXT REL TAB PO SCH (08:50)
[2022-04-01] MEDS: POTASSIUM CHLORIDE CRTAB 20 MEQ TABCR PO SCH ×2 (08:50→13:22)
[2022-04-01] MEDS: CLOPIDOGREL BISULFATE 75 MG TAB PO SCH (08:50)
[2022-04-01] MEDS: IRON POLYSACCHARIDE COMPLEX 150 MG CAPSULE PO SCH (08:50)
[2022-04-01] MEDS: ISOSORBIDE MONO EXTENDED REL 30 MG TABCR PO SCH (08:50)
[2022-04-01] MEDS: NYSTATIN POWDER 15GM BTL EXT SCH ×2 (08:51→20:33)
[2022-04-01] MEDS: CYPROHEPTADINE HCL 4 MG TAB PO SCH (08:51)
[2022-04-01] MEDS: BUMETANIDE 1 MG TAB PO SCH ×2 (08:51→17:16)
[2022-04-01] MEDS: LANTUS PER UNIT CHARGE SQ SCH (10:20)
[2022-04-01] MEDS: ACETAMINOPHEN 325 MG TAB PO PRN (11:14)
[2022-04-01] MEDS: EUCERIN CR 120 GM JAR EXT PRN (11:15)
[2022-04-01] MEDS ORDERED: ONDANSETRON INJ 2 MG/ML 2 ML VIAL IV PRN (11:46)
[2022-04-01] MEDS: INSULIN ASPART PER UNIT SC SCH ×3 (13:19→20:32)
[2022-04-01] MEDS: DAPTOmycin 450 MG in SYRINGE 0 ML IV SCH (13:22)
[2022-04-01] MEDS ORDERED: HYDROmorphone INJ 0.5 MG/0.5 ML SYR IV PRN (15:51)
[2022-04-01 17:03] LABS: Basophils # (auto) 0.03 K/uL (0-0.2); Basophils % (auto) 0.4 %; Eosinophils # (auto) 0.19 K/uL (0-0.50); Eosinophils % (auto) 2.3 %; Hematocrit (blood only) 24.4 % (34.1-44.9); Hemoglobin 7.4 g/dl (12.0-16.0); Immature Granulocytes # (auto) 0.12 K/uL (0.00-0.02); Immature Granulocytes % (auto) 1.5 %; Lymphocytes # (auto) 0.75 K/uL (1.2-3.4); Lymphocytes % (auto) 9.2 %; Mean Corpuscular Hemoglobin 36.3 pg (25.0-34.0); Mean Corpuscular Hgb Conc 30.3 g/dL (32.0-36.0); Mean Corpuscular Volume 119.6 fL (80.0-100.0); Mean Platelet Volume 12.9 fL (9.4-12.3); Monocytes # (auto) 0.79 K/uL (0.24-0.82); Monocytes % (auto) 9.6 %; Neutrophils # (auto) 6.31 K/uL (1.4-6.5); Nucleated RBC # (auto) 0.09 K/uL (0-0); Nucleated RBC % (auto) 1.1 %; Ovalocytes 2+; Platelet Count 197 K/uL (130-400); Poikilocytosis Present; Polychromasia 1+; RDW Coefficient of Variation 22.3 % (11.5-14.5); RDW Standard Deviation 96.7 fL (36.4-46.3); Red Blood Count 2.04 M/uL (3.93-5.22); Tear Drop Cells 1+; White Blood Count 8.19 K/ul (4.8-10.8)
--- NOTE | 2022-04-01 17:04 | CT Scan Report ---
CT abd pelvis wo con CLINICAL HISTORY: severe mid abdominal pain TECHNIQUE: Helical axial images of the abdomen and pelvis were obtained. Automated dose lowering tech niques and/or adjustment according to patient size were utilized for this exam. This exam was perfor med without intravenous contrast. CT DOSE: 292.64 mGy.cm COMPARISON: Comparison is made to CT abdomen pelvis 01/03/2021 FINDINGS: Lower chest: Moderate right and small left pleural effusions are seen. Scattered groundglass opaciti es are seen. Liver: Unremarkable. No focal lesions are seen. Gallbladder and biliary tree: Patient is status post cholecystectomy. No intra- or extrahepatic bilia ry ductal dilation. Pancreas: Unremarkable, no focal lesions. Spleen: Unremarkable. Adrenals: Unremarkable. Kidneys and ureters: The left kidney is atrophic. Bladder: Unremarkable. Reproductive organs: Patient is status post hysterectomy. Bowel: There is a moderate to large stool burden. The appendix is normal. Lymph nodes Retroperitoneal: Unremarkable. Pelvic: Unremarkable. Mesenteric: Unremarkable. Peritoneum: Normal. Vessels: Atherosclerotic calcifications are seen. Abdominal wall: Unremarkable. A battery-powered neurostimulator is noted. Bones: Mild degenerative changes are seen. IMPRESSION: No acute abnormalities to explain severe mid abdominal pain. The appendix is normal. ACT 112: Negative or not required by law. Electronically signed by: Jhoan Cox M.D. 04/01/2022 5:01 PM
[2022-04-01] MEDS: DIGOXIN 0.125 MG TAB PO SCH (17:16)
[2022-04-01 17:23] LABS: Albumin Level 3.5 gm/dl (3.4-5.0); BUN Creatinine Ratio 22.8 (10-20); Bilirubin,Total 3.9 mg/dl (0.2-1.0); Calcium 8.8 mg/dl (8.5-10.1); Creatinine Clr Calc Pharmacy 11.5 ml/min; Est GFR (African American) 18.1 ml/min; Est GFR (Non-African American) 15.7 ml/min; Globulin 3.4 gm/dl (2.5-4.0); Magnesium 2.8 mg/dl (1.7-2.4); Potassium 7.5 mmol/L (3.5-5.1); Total Protein 6.9 gm/dl (6.0-8.3)
[2022-04-01] MEDS ORDERED: DEXTROSE 50% 50 ML SYRINGE IV ONE ×2 (17:23→20:54)
[2022-04-01] MEDS ORDERED: STAT IV STA ×2 (17:30→18:03)
[2022-04-01] MEDS ORDERED: DEXTROSE 50% 50 ML SYRINGE IV STA (17:34)
[2022-04-01] MEDS ORDERED: INSULIN HUMAN REGULAR PER UNIT 10 UNITS in SYRINGE 9.9 ML IV ONE (17:45)
[2022-04-01] MEDS ORDERED: SODIUM CHLORIDE 0.9% 1000ML 1,000 ML IV SCH (17:45)
[2022-04-01] MEDS ORDERED: CALCIUM GLUCONATE 10% 1,000 MG in DEXTROSE 5% 50 ML IV ONE (17:45)
[2022-04-01] MEDS ORDERED: THIAMINE HCL 500 MG in SODIUM CHLORIDE 0.9% 50 ML IV STA (18:03)
[2022-04-01 18:06] LABS: Troponin I High Sensitivity 21.8 pg/ml (0-14)
--- NOTE | 2022-04-01 18:22 | Hospitalist Progress Note ---
Date of Service April 01, 2022 Assessment & Plan (1) Hyperkalemia: Plan: With elevated potassium 7.5 with acute kidney injury. Also has been on supplemental potassium 3 times daily this admission. Had atrial fibrillation with bradycardia but no ventricular tachycardia or fibrillation during her episode of unresponsiveness -Treated with calcium chloride, 4 A of sodium bicarbonate, insulin and D50, IV fluid hydration with normal saline Follow serial labs Dean catheter placed for acute kidney injury to monitor urine output and ensure no obstruction Consult nephrology in case of need for temporary dialysis Transfer to ICU Start sodium bicarbonate drip Discontinue oral potassium supplement (2) Hypotension: Plan: Secondary to possible septic shock versus hemorrhagic shock as hemoglobin tr ending downward Could also be side effect of IV Dilaudid albeit [id number] given Narcan With abdominal pain-CT abdomen/pelvis without contrast is negative, but could have mesenteric ischemia, aortic dissection with renal infarct?, GI bleed? Bolusing with fluids Hold all antihypertensives to include metoprolol, Bumex, isosorbide, and amlodipine Family has decided against vasopressors after transfer to ICU Continue to monitor Continue treating with antibiotics for MRSA bacteremia (3) PATY (acute kidney injury): Plan: Acute kidney injury on CKD stage III Creatinine anne to 2.6 with resulting hyperkalemia as above Unclear cause as blood pressures have been normal until they dropped acutely in the afternoon of 04/01 She is making urine-Dean catheter placed CT abdomen/pelvis without obstruction See above regarding abdominal pain Consult nephrology Continue sodium bicarbonate drip Follow serial BMP (4) Abdominal pain: Plan: As above Unclear cause-perhaps mesenteric ischemia? No AAA seen, no colitis seen Dilaudid caused excessive sedation perhaps due to poor liver synthetic function. Avoid opioids (5) Lactic acid acidosis: Plan: As above, possible septic shock Trend after crystalloid fluid boluses Perhaps could be due to poor liver synthetic function-gave high-dose thiamine 500 Mg IV x1 Follow lactate levels (6) MRSA bacteremia: Plan: With 1/4 bottles with MRSA on admission Continue daptomycin but plan was to switch back to vancomycin for discharge due to cost at facility, however now with acute kidney injury, will hold off on such appreciate infectious disease recommendations. Follow-up blood cultures are negative. CT scan reveals partial visualization of the bladder stimulator and lead with no evidence of infection. TTE negative for evidence of vegetations. ID Dr Dupont suspects possible skin source because the patient scratches herself continually. Low-dose cyproheptadine ordered for the pruritus has helped according to the patient-hold for now given altered mental status Plan to give 4 weeks of daptomycin through April 18, but may need to extend to 6 weeks.. PICC line has been placed in the left upper extremity. Needs weekly labs while on IV antibiotics once discharged from the hospital and repeat blood cultures 1 week after antibiotics are discontinued (7) Hypoxia: Plan: Acute hypoxic respiratory failure has now resolved. She is stable on room air. Was felt to be COPD exacerbation. Now resolved and baseline For persistent cough, nebulizer treatments which she occasionally takes at home (8) Chronic kidney disease (CKD): Plan: With acute kidney injury as above (9) Pruritus: Plan: No rash. Pruritus is chronic. Low-dose cyproheptadine started on March 26 has helped with itching according to the patient. She does not have jaundice, and I doubt her pruritus is associated with any underlying chronic liver disease. Significant xerosis of the skinEucerin cream and gentle soaps prescribed earlier this admission (10) Elevated troponin: Plan: No evidence of acute coronary syndrome. Telemetry revealed atrial fibrillation with controlled rate. Telemetry was then discontinued but now she is transferring to the ICU (11) Acute leg pain: Plan: Resolved. Right leg venous Doppler negative for DVT (12) Anemia: Plan: Macrocytic in the presence of normal B12 and folate as recently as 03/18/22. 1 g drop in the last 4-months Now with another gram drop in abdominal pain as above. CT abdomen/pelvis without blood Monitor for bleeding and transfuse as needed Follow carefully while on Eliquis but may need to hold this (13) Cirrhosis: Plan: Recently discovered on ultrasound as an outpatient in February No alcohol use, not obese Unclear cause Could be related to ongoing issues as above with lactic acidosis, hypoglycemia (14) Chronic heart failure with preserved ejection fraction (HFpEF): Plan: BNP chronically elevated. This is chronic with no acute exacerbation this a dmission. Continue current medical management. Monitor intake and output. Bumex 2 mg twice daily with potassium added but now discontinued as above for hyperkalemia and renal failure (15) History of gout: Plan: Hold home allopurinol with renal failure (16) Depression with anxiety: Plan: Continue duloxetine but hold home Remeron for lethargy (17) Cerebrovascular disease: Plan: Continue plavix (18) Atrial fibrillation: Plan: Rate controlled with current medical management. Continue Eliquis cautiously for now, monitor hemoglobin Holding home metoprolol for hypotension and bradycardia Hold digoxin for renal failure (19) Obstructive sleep apnea: Plan: HS CPAP -patient stopped using several years ago. Nocturnal 2 L oxygen has been used (20) Hypothyroidism: Plan: Continue levothyroxine TSH normal recently (21) COPD (chronic obstructive pulmonary disease): Plan: Admitted with acute exacerbation. Now at baseline. Continue current medical management. Use inhaler as needed (22) GERD (gastroesophageal reflux disease): Plan: Continue pantoprazole (23) Diabetes mellitus, type II: Plan: She had developed hypoglycemia earlier this admission. Lantus had been discontinued but then restarted on , March 26, at a lower dose. Dosage uptitrated March 28, due to developing hyperglycemia Lowered again on the morning of 04/01, however with severe hypoglycemia on the afternoon of 04/01 with a glucose of 23 Hold Lantus and monitor Gave D50 (24) Hypertension: Plan: Now with hypotension as above Hold metoprolol 150 twice daily home dose. Amlodipine 10 mg at bedtime started here and will now be held Plan DVT prophylaxis-Eliquis Disposition-transfer to ICU, critical condition, very guarded prognosis Discussed her care with her son on the phone twice Admission and Anticipated Discharge Date Admission Date: March 17, 2022 Subjective Patient was seen on 2 occasions today. Initially, she was complaining of some nausea and central abdominal pain, told me "I am going to ." Tylenol was not helping with the pain. She described as a sensation that she needed to move her bowels. She had not had any vomiting. She denied chest pain or shortness of breath. She was not feeling lightheaded. She was asking for something stronger for pain than Tylenol. I ordered CT abdomen/pelvis without contrast and lab work to include a lactate. Was contacted by the nurse with critical results with a lactate of 7.1 and a potassium of 7.5, creatinine up to 2.67. Her glucose was low at 23. CT abdomen/pelvis without contrast was negative. she had received 1 dose of Dilaudid 0.25 Mg for the abdominal pain and as I got the lab results back, I was contacted again by the nurse stating that her blood pressure dropped to 71/50. Code purple was called, patient was bolused with normal saline. She was unresponsive but moaning slightly. She was placed on the monitor and had a atrial fibrillation with bradycardia with rates in the high 20s to low 30s. She was given calcium chloride, 10 units of regular insulin IV along with 2 A of D50, 4 A of sodium bicarbonate and her heart rate improved to the 50s. She never lost her pulse and was breathing throughout. She still remained unresponsive and then was given Narcan 0.4 Mg x1 and had a positive response and woke up and then was yelling out in pain. Her blood pressure had improved. She was transferred to the ICU. I discussed her care with the academic services professional attending as well as the nocturnal academic services professional MINO. I also discussed her care with her son on the phone on 2 occasions as well as with nephrology. Review of Systems Review of Systems: All systems reviewed & are unremarkable except as noted in HPI & below Physical Exam Constitutional: + ill appearing Eyes: + anicteric sclerae and PERRL ENMT: Mouth: + oral mucosal abnormality (Dry mucous membranes) Neck: trachea midline, no thyromegaly Respiratory: normal respiratory effort, lungs clear to auscultation Cardiovascular: Rate/Rhythm: + bradycardic and + irregularly irregular Chest (Breasts): Chest: normal inspection of chest Gastrointestinal (Abdomen): Inspection/Auscultation: abdomen normal to inspection and normal bowel sounds; abdomen not distended Percussion/Palpation: + abdomen tender (Diffusely) and abdomen soft; no guarding, no hernia, no abdominal mass and no pulsatile mass Musculoskeletal: Extremities: extremities normal to inspection; no cyanosis and no clubbing Skin: no rashes, warm and dry Neurologic: moves all extremities and awake; no focal motor deficits Psychiatric: Orientation: alert, oriented to person and cooperative Lymphatic: no lymphedema Results & Data Results & Data ([facility]) Vital Signs (Past 12 Hours) Vital Signs Temp Pulse Pulse Resp BP Pulse Ox O2 Del Method 04/01/22 14:41 36.6 C 67 16 104/65 96 Room Air 04/01/22 07:55 74 20 92 Nasal Cannula 04/01/22 07:39 36.2 C L 84 18 133/37 L 99 Nasal Cannula O2 Flow Rate 04/01/22 14:41 04/01/22 07:55 2 04/01/22 07:39 2 Laboratory Results Labs reviewed Diagnostic Findings CT abdomen/pelvis images personally reviewed by me and agree with following report: Abdomen/Pelvis CT 04/01/22 15:50 CT abd pelvis wo con CLINICAL HISTORY: severe mid abdominal pain TECHNIQUE: Helical axial images of the abdomen and pelvis were obtained. Automated dose lowering techniques and/or adjustment according to patient size were utilized for this exam. This exam was performed without intravenous contrast. CT DOSE: 292.64 mGy.cm COMPARISON: Comparison is made to CT abdomen pelvis 01/03/2021 FINDINGS: Lower chest: Moderate right and small left pleural effusions are seen. Scattered groundglass opacities are seen. Liver: Unremarkable. No focal lesions are seen. Gallbladder and biliary tree: Patient is status post cholecystectomy. No intra- or extrahepatic biliary ductal dilation. Pancreas: Unremarkable, no focal lesions. Spleen: Unremarkable. Adrenals: Unremarkable. Kidneys and ureters: The left kidney is atrophic. Bladder: Unremarkable. Reproductive organs: Patient is status post hysterectomy. Bowel: There is a moderate to large stool burden. The appendix is normal. Lymph nodes Retroperitoneal: Unremarkable. Pelvic: Unremarkable. Mesenteric: Unremarkable. Peritoneum: Normal. Vessels: Atherosclerotic calcifications are seen. Abdominal wall: Unremarkable. A battery-powered neurostimulator is noted. Bones: Mild degenerative changes are seen. IMPRESSION: No acute abnormalities to explain severe mid abdominal pain. The appendix is normal. ACT 112: Negative or not required by law. Electronically signed by: Jhoan Cox M.D. 04/01/2022 5:01 PM PG Care Time/CCT Total # of Minutes Spent Total Time Spent with Patient: Total time spent is greater than 50% in coordination of care (as documented) at patient's floor/unit and/or counseling patient: Prolonged Care Time Prolonged Care Time: Yes Total Prolonged Care Time: 90 I spent 90 minutes of prolonged service care time with this patient Coding Level of Care Code 20290 Subseq Hosp Care Lvl 3 (25 - SIGNIFICANT, SEPARATELY IDENTIFIABLE ) Diagnoses Hyperkalemia E87.5 Hypotension I95.9 PATY (acute kidney injury) N17.9 Abdominal pain R10.9 Lactic acid acidosis E87.20 MRSA bacteremia R78.81; B95.62 Hypoxia R09.02 Chronic kidney disease (CKD) N18.9 Pruritus L29.9 Elevated troponin R77.8 Acute leg pain M79.606 Laterality: unspecified laterality Anemia D64.9 Anemia type: unspecified type Cirrhosis K74.60 Chronic heart failure with preserved ejection fraction (HFpEF) I50.32 History of gout Z87.39 Depression with anxiety F41.8 Cerebrovascular disease I67.9 Atrial fibrillation I48.91 Atrial fibrillation type: unspecified Obstructive sleep apnea G47.33 Hypothyroidism E03.9 Hypothyroidism type: unspecified COPD (chronic obstructive pulmonary disease) J44.9 GERD (gastroesophageal reflux disease) K21.9 Esophagitis presence: esophagitis presence not specified Diabetes mellitus, type II E11.9 Hypertension I10 Additional Codes Prolonged Care Time - Prolonged Care Time: Yes ([id number]) (1) Acute leg pain Laterality: unspecified laterality Qualified Code(s): M79.606 - Pain in leg, unspecified (2) Anemia Anemia type: unspecified type Qualified Code(s): D64.9 - Anemia, unspecified (3) Atrial fibrillation Atrial fibrillation type: unspecified Qualified Code(s): I48.91 - Unspecified atrial fibrillation (4) Hypothyroidism Hypothyroidism type: unspecified Qualified Code(s): E03.9 - Hypothyroidism, unspecified (5) GERD (gastroesophageal reflux disease) Esophagitis presence: esophagitis presence not specified Qualified Code(s): K21.9 - Gastro-esophageal reflux disease without esophagitis
[2022-04-01 18:41] LABS: INR 1.5 (0.9-1.1); Partial Thromboplastin Ratio 1.1; Partial Thromboplastin Time 30.5 Seconds (21.0-31.0); Prothrombin Time 15.8 Seconds (9.0-12.0)
[2022-04-01] MEDS: SODIUM BICARBONATE 8.4% 150 MEQ in DEXTROSE 5% 1,000 ML IV SCH (18:41)
[2022-04-01 18:45] LABS: D Dimer 730 ug/L FEU (0-500)
[2022-04-01] MEDS ORDERED: PATIROMER CALCIUM SORBITEX 8.4 GM PACK PO ONE (18:46)
[2022-04-01 18:57] LABS: BUN Creatinine Ratio 24.2 (10-20); Calcium 12.2 mg/dl (8.5-10.1); Creatinine Clr Calc Pharmacy 12.6 ml/min; Est GFR (African American) 20.2 ml/min; Est GFR (Non-African American) 17.5 ml/min; Potassium 7.1 mmol/L (3.5-5.1)
[2022-04-01 18:59] LABS: Fibrinogen 499 mg/dl (184-400)
[2022-04-01] MEDS ORDERED: ALBUTEROL 0.083% NEBU SOLN 3 ML VIAL NEB STA (19:02)
--- NOTE | 2022-04-01 19:11 | Critical Care Consultation ---
Date of Consultation April 01, 2022 Assessment & Plan (1) Hypotension: (2) Lactic acid acidosis: (3) PATY (acute kidney injury): (4) Hyperkalemia: (5) Abdominal pain: (6) MRSA bacteremia: (7) COPD exacerbation: (8) Cirrhosis: (9) Chronic heart failure with preserved ejection fraction (HFpEF): (10) GERD (gastroesophageal reflux disease): (11) CAD (coronary artery disease): (12) S/P implantation of urinary electronic stimulator device: (13) Diabetes mellitus, type II: Plan ICU CONSULT NOTE FORMAT: Reason Critically Ill: Hypotensive in the setting of acute onset abdominal pain and associated hyperkalemia, lactic acidosis, and persistent hypoglycemia and likley narcotic related narcosis on top of metabolic encephalopathy. Patient was aggressively treated prior to transfer with Narcan administration which improved her mentation to the point she is awake and pleasantly confused, she was given hyperkalemia cocktail, and was administered 1liter crystalloid, given thiamine and transitioned to isotonic HCO3 infusion. CT abdomen was performed prior to transfer- however without contrast administration- however no noting of pneumatosis on imaging was interpreted. Continue with volume support for hemodyanmics Neuro - Encephalopathy, narcotic induced narcosis Responded well to narcan, remains with underlying metabolic encephalopathy which is multifactorical to include cirrhosis, acidosis, hypoglycemia and hypotension - currently supportive care to her laboratory abnormalities and hypoglycemia Cardiac - Shock, hypotension, AFIB, Bradycardia, CAD, Hyperkalemia - undifferentiated shock at this time but with rising lactic acidosis and hyperkalemia she is evidently poorly perfused - no longer volume responsive and no initiation of vasopressors at this time after discussion with family - Digoxin has been held since admission - continue hyperkalemia treatment- albuterol now and [place] if patient can take PO, isotonic HCO3, kaliureses if BP stabilizes - Is without ectopy or peaked T waves Respiratory - COPD - exacerbation appears resolved as she is on nasal cannula - no acute needs GI - Cirrhosis of unknown etiology - supportive care at this time- patient is jaundiced with icterus RENAL/LYTES - PATY on CKD, HyperCalcemia, Hyperkalemia, AGAP metabolic acidosis - replete intravascular volume - making some urine dark - isotonic bicarb infusion- saline bolus - continue to shift potassium with hope that urine output will chart picker with volume - volume support for hypercalcemia - NO acute needs ENDO - DMII, hypoglycemia refractory hypoglycemia- continue with supportive care at this time consideration of steroid if needed HEME - Chronic hemolytic anemia patient with chronic anemia and slight downtrending in her HGB today- fibrinogen is at 499 and INR at 1.5 - no interpretation of blood loss in abd/pelvis imaging ID - MRSA bacteremia - continue daptomycin- nidus was not fully identified- ECHO 03/17 with EF 60- 65% no evidence of valve vegetation - afebrile and no increase in WBC noted on this evening labs LINES/IV ACCESS - PICC, Del Rosario, PIV Continue use of these lines DVT PROPHYLAXIS - SCDS, apixaban, plavix DISPO: Overall poor prognosis with her refractory hyperkalemia, CKD, hypotension and elevated lactic acidosis. with her hypotension earlier and acute onset of abdominal remain suspicious of bowel ischemia. Will continue with volume support for PATY/ATN. If no response to current therapy, will transition to comfort care/palliative care. If response we will continue with supportive efforts. Troponin are negative, D-dimer 730. I have personally spent 50 minutes of critical care time in the direct management of this patient. This is a life/limb threatening event. This includes time spent evaluating patient, direct bedside care, chart review, placing orders, interpretation of diagnostic studies, discussion with consultants, patient, and family members, as well as other required patient management activities. This time is exclusive of all separately billable procedures, and separate from and in addition to any other critical care service time. Thank you for allowing us to participate in the care of this patient. Please refer to my attending physician's documentation for any further recommendations. Supervising Physician Co-Signing Physician Notes I discussed this patient with STEVEN Sebastian. Patient is critically ill, she is not a candidate for dialysis family deferring aggressive interventions anticipate expectant management. We will contact the family to make them aware of significant decompensation and probable grim outcome. History of Present Illness Reason for Consultation: hyperkalemia, PATY on CKD, hypotension, encephalopathy Requesting Physician: Dannielle Attending Physician: Roz Spicer MD History of Present Illness 87 YOF HD #15 admitted for hypoxia and respiratory distress and leg pain. Patient also carries a diagnosis of newly diagnosed cirrhosis (unsure etiology at this time), CAD with stents most recent PCI 2018, Afib, HFpEF, MR, HLD and CKD. She is also known to have MRSA bactremia and is being treated with Daptomycin with plan for 4 weeks. Today the pateint had onset of unresponsiveness that was proceeded with nausea and severe abdominal pain. Her labs were done noting hypoglycemia, hyperkalemia and elevated lactic acidosis with HGB 7.4. The patient potassium was noted at 7.5 and lactate 7.6. She was given Narcan and hyperkalemia cocktail. She had a CT scan of her abdomen without contrast, however was interpreted as no acute abnormalities. Patient was transferred to ICU for continuation of supportive care. The patient mentation improved following the administration of Narcan. She was started on Isotonic HCO3 infusion following fluid bolus as well as Thiamine. Will follow her labs and continue to shift potassium as well as kaliureses as able with BP and renal function. Likely some part of renal injury with hypotension as well. Family is at the bedside and understands her clinical picture as being complex and tenuous at this time. They are supportive and son Ar does voice and understand that she would not want herroic measures to include CPR, intubation and/or dialysis. Patient remains hypotensive, as well as rising lactic acid and potassium. She is cool and clammy. Discussed with family at bedside for role of BP support with vasocative medications, currently do not wish to add bp support as likely just extending her time. If her electroltyes, renal function and lactate are not improving following current supportive care- will transition to palliative/comfort care. If reversing with treatment may add vasopressors support. Allergies Allergy/AdvReac Type Severity Reaction Status Date / Time shellfish derived Allergy Severe ANAPHYLAXIS Verified 03/13/22 11:20 iodine Allergy Intermediate ANAPHYLAXIS Verified 03/13/22 11:20 lisinopril Allergy Unknown Unknown Verified 03/13/22 11:20 oxybutynin [From Ditropan] Allergy Unknown Unknown Verified 03/13/22 11:20 sertraline [From Zoloft] Allergy Unknown Unknown Verified 03/13/22 11:20 paroxetine AdvReac Mild GI UPSET Verified 03/13/22 11:20 Home Medications Medication Instructions Recorded Confirmed Type cholecalciferol (vitamin D3) 25 2,000 unit PO QAM 05/11/20 03/17/22 History mcg (1,000 unit) tablet (Vitamin D3) polyethylene glycol 3350 17 8.5 g PO DAILY PRN Constipation 01/28/21 03/17/22 History gram/dose oral powder (Miralax) vit C 226 mg-vit E 90 mg-copper 1 cap PO BID 02/01/21 03/17/22 History 0.8 mg-zinc oxide-lutein 5 mg capsule (PreserVision Lutein) allopurinol 100 mg tablet 300 mg PO QAM #90 tabs 12/16/21 03/17/22 Rx (Zyloprim) apixaban 2.5 mg tablet (Eliquis) 2.5 mg PO BID #180 tabs 12/16/21 03/17/22 Rx bumetanide 2 mg tablet 2 mg PO BID #60 tabs 12/16/21 03/17/22 Rx clopidogrel 75 mg tablet (Plavix) 75 mg PO QAM #90 tabs 12/16/21 03/17/22 Rx digoxin 125 mcg (0.125 mg) tablet 125 mcg PO Q2D #15 tabs 12/16/21 03/17/22 Rx (Digitek) duloxetine 30 mg capsule,delayed 30 mg PO QAM #90 caps 12/16/21 03/17/22 Rx release (Cymbalta) duloxetine 60 mg capsule,delayed 60 mg PO QAM #90 caps 12/16/21 03/17/22 Rx release (Cymbalta) isosorbide mononitrate 30 mg 30 mg PO QAM #90 tabs 12/16/21 03/17/22 Rx tablet,extended release 24 hr levothyroxine 50 mcg tablet 50 mcg PO DAILYBB #30 tabs 12/16/21 03/17/22 Rx (Synthroid) magnesium oxide 400 mg PO BID #180 tabs 12/16/21 03/17/22 Rx metoprolol succinate 50 mg 150 mg PO BID #540 tabs 12/16/21 03/17/22 Rx tablet,extended release 24 hr (Toprol XL) mirtazapine 15 mg tablet (Remeron) 15 mg PO HS #30 tabs 12/16/21 03/17/22 Rx pantoprazole 40 mg tablet,delayed 40 mg PO QAM #90 tabs 22 03/17/22 Rx release (Protonix) polysaccharide iron complex 150 mg 150 mg PO QAM #90 caps 12/16/21 03/17/22 Rx iron capsule (Ferrex) potassium chloride 20 mEq 10 meq PO BID #180 tabs 12/16/21 03/17/22 Rx tablet,extended release (K-Tab) insulin glargine 100 unit/mL (3 28 unit (0.28 mL) subcut HS #15 mL 12/18/21 03/17/22 Rx mL) subcutaneous pen (Lantus Solostar U-100 Insulin) glucagon 1 mg solution for 1 mg subcut Q20M PRN hypoglycemia 01/02/22 03/17/22 Rx injection (Glucagon Emergency Kit) #1 ea nitroglycerin 0.3 mg sublingual 0.3 mg sublingual Q5M PRN Chest 01/17/22 03/17/22 History tablet Pain nystatin 100,000 unit/gram topical 1 applic topical TID 2 weeks #30 01/21/22 03/17/22 Rx cream grams insulin aspart U-100 100 unit/mL 7 - 10 unit (0.07 - 0.1 mL) subcut 02/04/22 03/17/22 Rx (3 mL) subcutaneous pen (Novolog TIDM #45 mL Flexpen U-100 Insulin aspart) clobetasol 0.05 % topical cream 1 applic topical BID #30 grams 02/19/22 03/17/22 Rx guaifenesin 600 mg tablet, 600 mg PO BID PRN cough #60 tabs 03/13/22 03/17/22 Rx extended release 12 hr Patient History Medical History Anemia Asthma Atrial fibrillation CAD (coronary artery disease) Cerebrovascular disease Chronic diastolic congestive heart failure Chronic kidney disease (CKD) Stage III, baseline Cr 1.3-1.5mg/dL. Complicated with normocytic anemia and secondary hyperparathyroidism. Followed by nephrology. 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 Cannot perform MRI due to bladder implant. Followed by pain management. Epidural steroid injections with improvement of pain. Evaluated by ortho, decided against surgery. Managed with gabapentin 300mg TID + APAP PRN + tapentadol 50mg BID PRN GERD (gastroesophageal reflux disease) GIB (gastrointestinal bleeding) History of gout Managed with allopruinol daily. No recent gouty attacks. Uric acid suppressed 3.4 mg/dl (12/22) Hyperlipidemia Secondary prevention with moderate intensity statin (atorvastatin 20mg daily) Hypertension Hypothyroidism Lichen planus Macular degeneration Mitral regurgitation Neurologic gait dysfunction Obstructive sleep apnea Long standing. Managed with CPAP nightly. CPAP titration polysomnography (07/14). Sensorineural hearing loss (SNHL) of both ears Venous insufficiency of both lower extremities Surgical History H/O colonoscopy History of repair of rectocele S/P breast biopsy S/P section S/P cholecystectomy S/P hysterectomy S/P implantation of urinary electronic stimulator device Family History Father , Age 64 No problems noted. Mother , Age 61 No problems noted. Other Coronary heart disease Denies family history of Ovarian cancer Prostate cancer Crohn's disease Breast cancer Lung cancer Colorectal cancer Social History Smoking Status: Never smoker Second Hand Exposure: No; Do You Dip or Chew Tobacco: No; Tobacco Cessation Education Requested by Patient: No Hx Alcohol Use: No Hx Substance Use: No Preferred Language: Amharic Communication Ability: Effective Visual Impairment: No Limitations Hearing Ability: Normal Bungy Jump Master Required: No Beliefs That Will Affect Care: None marital status: Single Current Living Situation: Care Home Current Living Situation Comment: [facility] current occupational status: retired How many Children do You have: 3 Other Information That Helps Us Care for You: No Feels Safe at Home: Yes Safety Concerns: Feels Safe At This Time Childhood Exposure to Second-Hand Smoke: No Diet Comment: DIABETIC caffeine: No during the past year weight has: remained stable Dental Care, Regularly: No Physical Activity Frequency: 1-2 Times per Week Seatbelt Use: always Sunscreen Use: Yes Assistive Devices: Glasses and Walker Review of Systems Review of Systems: REVIEW OF SYSTEMS: Unable to assess secondary to mental status- however her mentation has significantly imrpoved from earlier per nurse and family Physical Exam Physical Exam: PHYSICAL EXAM: General: awake, alert, moaning Head: Normocephalic, atraumatic ENT: PERRLA-4-3 brisk, EOMI, no pharyngeal exudate, mucous membranes dry Neuro: AAO x person, speech clear, strength intact bilaterally 5/5, moves all extremities Chest: equal rise and fall of the chest, no accessory muscle use, no heaves or thrills, Clear to auscultation, on room air, Cardiac: Regular rate and rhythm, telemetry reviewed, skin warm dry, cap refill <3 seconds, peripheral pulses +2 no JVD, no murmur, no edema GI: bowel sounds hypoactive, mostly softly distended, however appears to have some gaurding, : del rosario to gravity Extremities: Normal inspection, no peripheral edema or erythema, calfs nontender to palpation Psych: Normal mood and affect cits Skin: no rash or erythema Results & Data Results & Data ([facility]) Vital Signs (Past 12 Hours) Vital Signs Temp Pulse Pulse Resp BP Pulse Ox O2 Del Method 04/01/22 14:41 36.6 C 67 16 104/65 96 Room Air 04/01/22 07:55 74 20 92 Nasal Cannula 04/01/22 07:39 36.2 C L 84 18 133/37 L 99 Nasal Cannula O2 Flow Rate 04/01/22 14:41 04/01/22 07:55 2 04/01/22 07:39 2 Laboratory Results Abnormal lab results 04/01/22 04/01/22 04/01/22 Range/Units 08:13 08:13 12:08 RBC (3.93-5.22) M/uL Hgb (12.0-16.0) g/dl Hct (34.1-44.9) % MCV (80.0-100.0) fL MCH (25.0-34.0) pg MCHC (32.0-36.0) g/dL RDW Std Deviation (36.4-46.3) fL RDW Coeff of Talia (11.5-14.5) % MPV (9.4-12.3) fL Lymph # (Auto) (1.2-3.4) K/uL Immature Gran # (Auto) (0.00-0.02) K/uL Absolute Nucleated RBC (0-0) K/uL PT (9.0-12.0) Seconds INR (0.9-1.1) Fibrinogen (184-400) mg/dl D-Dimer (0-500) ug/L FEU Sodium (136-145) mmol/L Potassium (3.5-5.1) mmol/L Chloride (98-107) mmol/L Anion Gap (3-11) BUN (6-23) mg/dl Creatinine (0.6-1.2) mg/dl BUN/Creatinine Ratio (10-20) Glucose (70-99(Fasting)) mg/dl POC Glucose 61 L* 66 L* 137 H (70-99) mg/dl Lactate (0.4-2.0) mmol/L Calcium (8.5-10.1) mg/dl Magnesium (1.7-2.4) mg/dl Total Bilirubin (0.2-1.0) mg/dl Alkaline Phosphatase (34-104) U/L Troponin I High Sens (0-14) pg/ml 04/01/22 04/01/22 04/01/22 Range/Units 16:20 16:20 16:20 RBC 2.04 L (3.93-5.22) M/uL Hgb 7.4 L (12.0-16.0) g/dl Hct 24.4 L (34.1-44.9) % MCV 119.6 H (80.0-100.0) fL MCH 36.3 H (25.0-34.0) pg MCHC 30.3 L (32.0-36.0) g/dL RDW Std Deviation 96.7 H (36.4-46.3) fL RDW Coeff of Talia 22.3 H (11.5-14.5) % MPV 12.9 H (9.4-12.3) fL Lymph # (Auto) 0.75 L (1.2-3.4) K/uL Immature Gran # (Auto) 0.12 H (0.00-0.02) K/uL Absolute Nucleated RBC 0.09 H (0-0) K/uL PT (9.0-12.0) Seconds INR (0.9-1.1) Fibrinogen (184-400) mg/dl D-Dimer (0-500) ug/L FEU Sodium 132 L (136-145) mmol/L Potassium 7.5 H* D (3.5-5.1) mmol/L Chloride 95 L (98-107) mmol/L Anion Gap 14 H (3-11) BUN 61 H (6-23) mg/dl Creatinine 2.67 H D (0.6-1.2) mg/dl BUN/Creatinine Ratio 22.8 H (10-20) Glucose 39 L* (70-99(Fasting)) mg/dl POC Glucose (70-99) mg/dl Lactate 7.6 H* (0.4-2.0) mmol/L Calcium (8.5-10.1) mg/dl Magnesium 2.8 H (1.7-2.4) mg/dl Total Bilirubin 3.9 H (0.2-1.0) mg/dl Alkaline Phosphatase 266 H (34-104) U/L Troponin I High Sens 21.8 H (0-14) pg/ml 04/01/22 04/01/22 04/01/22 Range/Units 17:24 17:35 18:05 RBC (3.93-5.22) M/uL Hgb (12.0-16.0) g/dl Hct (34.1-44.9) % MCV (80.0-100.0) fL MCH (25.0-34.0) pg MCHC (32.0-36.0) g/dL RDW Std Deviation (36.4-46.3) fL RDW Coeff of Talia (11.5-14.5) % MPV (9.4-12.3) fL Lymph # (Auto) (1.2-3.4) K/uL Immature Gran # (Auto) (0.00-0.02) K/uL Absolute Nucleated RBC (0-0) K/uL PT (9.0-12.0) Seconds INR (0.9-1.1) Fibrinogen (184-400) mg/dl D-Dimer (0-500) ug/L FEU Sodium (136-145) mmol/L Potassium (3.5-5.1) mmol/L Chloride (98-107) mmol/L Anion Gap (3-11) BUN (6-23) mg/dl Creatinine (0.6-1.2) mg/dl BUN/Creatinine Ratio (10-20) Glucose (70-99(Fasting)) mg/dl POC Glucose 23 L* 180 H (70-99) mg/dl Lactate 12.9 H* (0.4-2.0) mmol/L Calcium (8.5-10.1) mg/dl Magnesium (1.7-2.4) mg/dl Total Bilirubin (0.2-1.0) mg/dl Alkaline Phosphatase (34-104) U/L Troponin I High Sens (0-14) pg/ml 04/01/22 04/01/22 04/01/22 Range/Units 18:08 18:08 20:52 RBC (3.93-5.22) M/uL Hgb (12.0-16.0) g/dl Hct (34.1-44.9) % MCV (80.0-100.0) fL MCH (25.0-34.0) pg MCHC (32.0-36.0) g/dL RDW Std Deviation (36.4-46.3) fL RDW Coeff of Talia (11.5-14.5) % MPV (9.4-12.3) fL Lymph # (Auto) (1.2-3.4) K/uL Immature Gran # (Auto) (0.00-0.02) K/uL Absolute Nucleated RBC (0-0) K/uL PT 15.8 H (9.0-12.0) Seconds INR 1.5 H (0.9-1.1) Fibrinogen 499 H (184-400) mg/dl D-Dimer 730 H* (0-500) ug/L FEU Sodium (136-145) mmol/L Potassium 7.1 H* (3.5-5.1) mmol/L Chloride 95 L (98-107) mmol/L Anion Gap 15 H (3-11) BUN 59 H (6-23) mg/dl Creatinine 2.44 H (0.6-1.2) mg/dl BUN/Creatinine Ratio 24.2 H (10-20) Glucose 301 H* (70-99(Fasting)) mg/dl POC Glucose 65 L* (70-99) mg/dl Lactate (0.4-2.0) mmol/L Calcium 12.2 H* D (8.5-10.1) mg/dl Magnesium (1.7-2.4) mg/dl Total Bilirubin (0.2-1.0) mg/dl Alkaline Phosphatase (34-104) U/L Troponin I High Sens (0-14) pg/ml Diagnostic Findings Chest X-Ray 03/17/22 13:30 XR chest 1V portable HISTORY: Shortness of breath. COMPARISON: Chest 03/02/2022. FINDINGS: No pneumothorax. No pleural effusions. The cardiac silhouette remains mildly enlarged. This mild central pulmonary vascular congestion without overt edema. No new focal lung consolidations to suggest a pneumonia. There are low lung volumes. Calcifications again noted within the aortic knob. IMPRESSION: Mild central pulmonary vascular congestion without overt edema. ACT 112: Negative or not required by law. Electronically signed by: Lucius Tate M.D. 03/17/2022 1:52 PM Femur X-Ray 03/17/22 16:24 XR femur RT 2V routine HISTORY: 87 years-old Female acute right leg pain . Acute pain of the right hip and thigh COMPARISON: Pelvis and hip radiographs 02/15/2022 TECHNIQUE: 2 views the right femur FINDINGS: A battery pack projects over the right hemipelvis. Is mild to moderate osteoarthritis of the right hip. Demineralized appearance of the bones. No acute fracture, dislocation or avascular necrosis. Pelvic basin phleboliths. Nonspecific lateral soft tissue swelling of the thigh and knee. Osteoarthritis of the right knee without large joint effusion. IMPRESSION: No acute fracture or dislocation. ACT 112: Negative or not required by law. The above report was generated using voice recognition software. It may contain grammatical, syntax or spelling errors. Electronically signed by: Cheo Vargas M.D. 03/17/2022 5:40 PM Venous Doppler Study 03/17/22 16:24 US venous doppler LE RT CLINICAL HISTORY: acute right leg pain/swelling TECHNIQUE: Right lower extremity real-time compression venous ultrasound with Color Doppler imaging. Utilizing real-time ultrasonic imaging multiple real time high-resolution ultrasonic images with compression and noncompression maneuvers of the deep venous system in addition to color doppler imaging were performed from the common femoral vein through the proximal calf veins. COMPARISON: Comparison is made to venous Doppler ultrasound 12/07/2020 FINDINGS: Currently there is normal compressibility of the deep venous system from the common femoral vein through the proximal calf veins. No superficial venous thrombosis is identified. Impression: No evidence of deep venous thrombus. ACT 112: Negative or not required by law. Electronically signed by: Jhoan Cox M.D. 03/18/2022 9:04 AM Chest X-Ray 03/19/22 09:34 XR chest 1V portable CLINICAL HISTORY: COPD exacerbation. COMPARISON STUDY: Chest radiograph March 17, 2022. FINDINGS: Lung volumes are normal. Lungs are clear. There is no pneumothorax or pleural effusion. Minimal right basilar opacity may reflect atelectasis. Cardiomegaly is unchanged. Mediastinal contours are normal. There is no evidence for pulmonary edema. IMPRESSION: No acute cardiopulmonary findings. ACT 112: Negative or not required by law. Electronically signed by: Jeremy Gabriel M.D. 03/19/2022 1:[address] 03/26/22 09:57 CT OF THE LUMBAR SPINE CLINICAL HISTORY: Lower back pain. Bacteremia. Rule out stimulator infection. COMPARISON STUDY: Lumbar spine CT August 03, 2020. TECHNIQUE: Helical axial images of the lumbar spine were obtained. Sagittal and coronal reconstructions were viewed. Automated exposure control was utilized for the study. A dose lowering technique was utilized adhering to the principles of ALARA. FINDINGS: For purposes of numbering on this exam, the L5-S1 disc space is assi gned to axial image 302 of 402. Mild dextroscoliosis of the lumbar spine has progressed. A mild compression fracture of the superior endplate of L3 is new since CT of August 03, 2020. However, this appears chronic. There is an old L1 compression fracture. There is no acute lumbar spine fracture. Irregularity along the superior endplate of L3 is noted. However, there is associated sclerosis and vacuum disc phenomenon. Therefore, this is unlikely to be infectious. Paravertebral soft tissues are unremarkable by CT. There is no evidence for discitis or osteomyelitis by CT. Sacral bladder stimulator lead is noted. The battery pack is not entirely imaged. There is no fluid along the stimulator lead. Bilateral pleural effusions, right larger left, are partially imaged. Severe multilevel degenerative changes are again noted with multilevel disc space narrowing, facet arthrosis and osteophytosis. These are most pronounced at the L4-L5 level. IMPRESSION: 1. Sacral bladder stimulator lead in place. No fluid along the stimulator lead or other CT findings to suggest associated infection. Battery pack partially imaged. Visualized soft tissues unremarkable. 2. L3 compression fracture which is new since CT of August 03, 2020 but likely chronic. Irregularity of the superior endplate of L3. This is likely degenerative/posttraumatic. An infectious etiology is considered less likely given the CT appearance. 3. Severe multilevel degenerative changes within the lumbar spine. 4. Bilateral pleural effusions, right larger than left. ACT 112: Negative or not required by law. Electronically signed by: Jeremy Gabriel M.D. 03/26/2022 11:21 AM Chest X-Ray 03/26/22 12:30 XR chest 1V portable CLINICAL HISTORY: PICC placement TECHNIQUE: Single frontal radiograph of the chest was obtained. Comparison: Comparison is made to chest radiograph 05/20/2021 FINDINGS: A left PICC terminates at the lower SVC. Cardiomegaly is noted. The lungs are c lear. No evidence of pleural effusion or pneumothorax. IMPRESSION: A left PICC terminates at the lower SVC. ACT 112: Negative or not required by law. Electronically signed by: Jhoan Cox M.D. 03/26/2022 1:01 PM Abdomen/Pelvis CT 04/01/22 15:50 CT abd pelvis wo con CLINICAL HISTORY: severe mid abdominal pain TECHNIQUE: Helical axial images of the abdomen and pelvis were obtained. Automated dose lowering techniques and/or adjustment according to patient size were utilized for this exam. This exam was performed without intravenous contrast. CT DOSE: 292.64 mGy.cm COMPARISON: Comparison is made to CT abdomen pelvis 01/03/2021 FINDINGS: Lower chest: Moderate right and small left pleural effusions are seen. Scattered groundglass opacities are seen. Liver: Unremarkable. No focal lesions are seen. Gallbladder and biliary tree: Patient is status post cholecystectomy. No intra- or extrahepatic biliary ductal dilation. Pancreas: Unremarkable, no focal lesions. Spleen: Unremarkable. Adrenals: Unremarkable. Kidneys and ureters: The left kidney is atrophic. Bladder: Unremarkable. Reproductive organs: Patient is status post hysterectomy. Bowel: There is a moderate to large stool burden. The appendix is normal. Lymph nodes Retroperitoneal: Unremarkable. Pelvic: Unremarkable. Mesenteric: Unremarkable. Peritoneum: Normal. Vessels: Atherosclerotic calcifications are seen. Abdominal wall: Unremarkable. A battery-powered neurostimulator is noted. Bones: Mild degenerative changes are seen. IMPRESSION: No acute abnormalities to explain severe mid abdominal pain. The appendix is normal. ACT 112: Negative or not required by law. Electronically signed by: Jhoan Cox M.D. 04/01/2022 5:01 PM Medications Administered Home Medications cholecalciferol (vitamin D3) 25 mcg (1,000 unit) tablet (Vitamin D3) 2,000 unit PO QAM 05/11/20 [History Confirmed 03/17/22] polyethylene glycol 3350 17 gram/dose oral powder (Miralax) 8.5 g PO DAILY PRN Constipation 01/28/21 [History Confirmed 03/17/22] vit C 226 mg-vit E 90 mg-copper 0.8 mg-zinc oxide-lutein 5 mg capsule (PreserVision Lutein) 1 cap PO BID 02/01/21 [History Confirmed 03/17/22] allopurinol 100 mg tablet (Zyloprim) 300 mg PO QAM #90 tabs 12/16/21 [Rx Confirmed 03/17/22] apixaban 2.5 mg tablet (Eliquis) 2.5 mg PO BID #180 tabs 12/16/21 [Rx Confirmed 03/17/22] bumetanide 2 mg tablet 2 mg PO BID #60 tabs 12/16/21 [Rx Confirmed 03/17/22] clopidogrel 75 mg tablet (Plavix) 75 mg PO QAM #90 tabs 12/16/21 [Rx Confirmed 03/17/22] digoxin 125 mcg (0.125 mg) tablet (Digitek) 125 mcg PO Q2D #15 tabs 12/16/21 [Rx Confirmed 03/17/22] duloxetine 30 mg capsule,delayed release (Cymbalta) 30 mg PO QAM #90 caps 12/16/21 [Rx Confirmed 03/17/22] duloxetine 60 mg capsule,delayed release (Cymbalta) 60 mg PO QAM #90 caps 12/16/21 [Rx Confirmed 03/17/22] isosorbide mononitrate 30 mg tablet,extended release 24 hr 30 mg PO QAM #90 tabs 12/16/21 [Rx Confirmed 03/17/22] levothyroxine 50 mcg tablet (Synthroid) 50 mcg PO DAILYBB #30 tabs 12/16/21 [Rx Confirmed 03/17/22] magnesium oxide 400 mg PO BID #180 tabs 12/16/21 [Rx Confirmed 03/17/22] metoprolol succinate 50 mg tablet,extended release 24 hr (Toprol XL) 150 mg PO BID #540 tabs 12/16/21 [Rx Confirmed 03/17/22] mirtazapine 15 mg tablet (Remeron) 15 mg PO HS #30 tabs 12/16/21 [Rx Confirmed 03/17/22] pantoprazole 40 mg tablet,delayed release (Protonix) 40 mg PO QAM #90 tabs 12/16/21 [Rx Confirmed 03/17/22] polysaccharide iron complex 150 mg iron capsule (Ferrex) 150 mg PO QAM #90 caps 12/16/21 [Rx Confirmed 03/17/22] potassium chloride 20 mEq tablet,extended release (K-Tab) 10 meq PO BID #180 tabs 12/16/21 [Rx Confirmed 03/17/22] insulin glargine 100 unit/mL (3 mL) subcutaneous pen (Lantus Solostar U-100 Insulin) 28 unit (0.28 mL) subcut HS #15 mL 12/18/21 [Rx Confirmed 03/17/22] glucagon 1 mg solution for injection (Glucagon Emergency Kit) 1 mg subcut Q20M PRN hypoglycemia #1 ea 01/02/22 [Rx Confirmed 03/17/22] nitroglycerin 0.3 mg sublingual tablet 0.3 mg sublingual Q5M PRN Chest Pain 01/17/22 [History Confirmed 03/17/22] nystatin 100,000 unit/gram topical cream 1 applic topical TID 2 weeks #30 grams 01/21/22 [Rx Confirmed 03/17/22] insulin aspart U-100 100 unit/mL (3 mL) subcutaneous pen (Novolog Flexpen U-100 Insulin aspart) 7 - 10 unit (0.07 - 0.1 mL) subcut TIDM #45 mL 02/04/22 [Rx Confirmed 03/17/22] clobetasol 0.05 % topical cream 1 applic topical BID #30 grams 02/19/22 [Rx Confirmed 03/17/22] guaifenesin 600 mg tablet, extended release 12 hr 600 mg PO BID PRN cough #60 tabs 03/13/22 [Rx Confirmed 03/17/22] Active Medications Acetaminophen (Acetaminophen 325 Mg Tab) 650 mg PO Q4H PRN PRN Reason: Pain (1,2,3) Or Fever Stop: 04/16/22 19:18 Last Admin: 04/01/22 11:14 Dose: 650 mg Albuterol (Albut/Ipratrop 3mg/0.5mg Neb 3 Ml Vial) 3 ml NEB Q4R PRN; Protocol PRN Reason: Shortness Of Breath Or Wheezing Stop: 04/16/22 18:59 Last Admin: 04/01/22 07:55 Dose: 3 ml Albuterol (Albuterol Hfa 8 Gm Inhaler) 2 puffs INH BIDR PRN PRN Reason: Wheezing Stop: 04/24/22 19:35 Last Admin: 03/29/22 17:18 Dose: 2 puffs Apixaban (Apixaban 2.5 Mg Tab) 2.5 mg PO BID RODDY Stop: 04/16/22 20:59 Last Admin: 04/01/22 20:32 Dose: Not Given Clopidogrel Bisulfate (Clopidogrel Bisulfate 75 Mg Tab) [facility]: 04/17/22 08:59 Last Admin: 04/01/22 08:50 Dose: 75 mg Dextrose (Dextrose 50% 50 Ml Syringe) 25 - 50 ml IV UD PRN; Protocol PRN Reason: Hypoglycemia Protocol Stop: 05/01/22 20:52 Duloxetine HCl (Duloxetine Hcl 60 Mg Cap) [facility] [place] Stop: 04/17/22 08:59 Last Admin: 04/01/22 08:49 Dose: 60 mg Duloxetine HCl (Duloxetine Hcl 30 Mg Cap) [facility] [place] Stop: 04/17/22 08:59 Last Admin: 04/01/22 08:49 Dose: 30 mg Glucagon (Glucagon For Inj 1 Mg Vial) 1 mg SQ UD PRN; Protocol PRN Reason: Hypoglycemia Protocol Stop: 05/01/22 20:52 Glucose (Glucose 40% Gel 15 Gm Tube) 15 - 30 gm PO UD PRN; Protocol PRN Reason: Hypoglycemia Protocol Stop: 05/01/22 20:52 Glucose (Glucose 10 Tab/Tube) 4 - 8 tab PO UD PRN; Protocol PRN Reason: Hypoglycemia Treatment Stop: 05/01/22 20:52 Heparin Sodium (Beef Lung) (Heparin 10 Unit/Ml 5 Ml Flush) 5 ml FLUSH PRN PRN PRN Reason: Flush Stop: 04/26/22 02:42 Last Admin: 03/28/22 13:03 Dose: 5 ml Daptomycin 450 mg/ Syringe 9 mls @ 4.5 mls/min IV Q48H RODDY; Protocol Stop: 04/11/22 11:59 Last Admin: 04/01/22 13:22 Dose: 4.5 mls/min Sodium Chloride (Nss 1000ml) 1,000 mls @ 125 mls/hr IV .Q8H [facility] Stop: 05/01/22 17:44 Last Admin: 04/01/22 18:51 Dose: Not Given Sodium Bicarbonate 150 meq/ (Dextrose) 1,150 mls @ 150 mls/hr IV .Q7H40M [facility] Stop: 05/01/22 18:14 Last Admin: 04/01/22 18:41 Dose: 80 mls/hr Insulin Aspart (Insulin Aspart Per Unit) 0 units SC ACHS [facility] Stop: 05/01/22 11:29 Last Admin: 04/01/22 20:32 Dose: Not Given Insulin Glargine (Lantus Per Unit Charge) 10 units SQ DAILY [facility] Stop: 05/02/22 11:59 Levothyroxine Sodium (Levothyroxine Sodium 50 Mcg Tablet) 50 mcg PO DAILYBB [facility] Stop: 04/17/22 06:29 Last Admin: 04/01/22 05:52 Dose: 50 mcg Miscellaneous (Carbohydrates For Hypoglycemia ) 15 - 30 gm PO UD PRN PRN Reason: Hypoglycemia Protocol Stop: 05/01/22 20:52 Multi-Ingredient Cream (Eucerin Cr 120 Gm Jar) 1 appln EXT [id number] PRN PRN Reason: Itching Stop: 04/19/22 10:13 Last Admin: 04/01/22 11:15 Dose: 1 appln Nystatin (Nystatin Powder 15gm Btl) 1 appln EXT BID [facility] Stop: 04/25/22 20:59 Last Admin: 04/01/22 20:33 Dose: Not Given Ondansetron HCl (Ondansetron Inj 2 Mg/Ml 2 Ml Vial) 4 mg IV Q6H PRN PRN Reason: Nausea And Vomiting Stop: 05/01/22 11:45 Last Admin: 04/01/22 12:28 Dose: 4 mg Pantoprazole Sodium (Pantoprazole 40 Mg Tab) 40 mg PO QAM [facility] Stop: 04/17/22 08:59 Last Admin: 04/01/22 08:49 Dose: 40 mg Polyethylene Glycol (Polyethylene (Miralax) 17 Gm Pack) 8.5 gm PO DAILY PRN PRN Reason: Constipation Stop: 04/16/22 19:18 Last Admin: 03/25/22 07:40 Dose: 8.5 gm Polysaccharide Iron Complex (Iron Polysaccharide Complex 150 Mg Capsule) 150 mg PO QAM [facility] Stop: 04/17/22 08:59 Last Admin: 04/01/22 08:50 Dose: 150 mg ECG Additional Comments: Atrial fibrillation Left axis deviation Low voltage QRS Abnormal ECG When compared with ECG of 02-MAR-2022 17:05, Criteria for Inferior infarct are no longer Present Confirmed by Almas Reyes ([id number]) on 03/17/2022 3:19:47 PM Coding Level of Care Code Critical Care 1st 30-74 mins Diagnoses Hypotension I95.9 Lactic acid acidosis E87.20 PATY (acute kidney injury) N17.9 Hyperkalemia E87.5 Abdominal pain R10.9 MRSA bacteremia R78.81; B95.62 COPD exacerbation J44.1 Cirrhosis K74.60 Chronic heart failure with preserved ejection fraction (HFpEF) I50.32 GERD (gastroesophageal reflux disease) K21.9 Esophagitis presence: esophagitis presence not specified CAD (coronary artery disease) I25.10 S/P implantation of urinary electronic stimulator device Z96.0 Diabetes mellitus, type II E11.9 (1) GERD (gastroesophageal reflux disease) Esophagitis presence: esophagitis presence not specified Qualified Code(s): K21.9 - Gastro-esophageal reflux disease without esophagitis
[2022-04-01] MEDS ORDERED: SODIUM BICARB 8.4% INJ 50 MEQ/50 ML SYR IV ONE (20:08)
[2022-04-01] MEDS ORDERED: SODIUM CHLORIDE 0.9% 1000ML 500 ML IV ONE ×2 (20:27→22:36)
[2022-04-01] MEDS ORDERED: SODIUM BICARB 8.4% INJ 50 MEQ/50 ML SYR IV STA (20:37)
[2022-04-01] MEDS ORDERED: GLUCAGON FOR INJ 1 MG VIAL SQ PRN (20:53)
[2022-04-01] MEDS ORDERED: CARBOHYDRATES FOR HYPOGLYCEMIA PO PRN (20:53)
[2022-04-01] MEDS ORDERED: DEXTROSE 50% 50 ML SYRINGE IV PRN (20:53)
[2022-04-01] MEDS ORDERED: GLUCOSE 40% GEL 15 GM TUBE PO PRN (20:53)
[2022-04-01] MEDS ORDERED: GLUCOSE 10 TAB/TUBE PO PRN (20:53)
[2022-04-02 00:01] LABS: BUN Creatinine Ratio 22.6 (10-20); Calcium 10.3 mg/dl (8.5-10.1); Creatinine Clr Calc Pharmacy 11.4 ml/min; Est GFR (African American) 17.9 ml/min; Est GFR (Non-African American) 15.4 ml/min; Potassium 6.4 mmol/L (3.5-5.1)
[2022-04-02] MEDS: PANTOprazole 40 MG in SYRINGE 0 ML IV SCH ×2 (00:58→09:09)
[2022-04-02] MEDS: SODIUM BICARBONATE 8.4% 150 MEQ in DEXTROSE 5% 1,000 ML IV SCH (03:15)
[2022-04-02] MEDS: LEVOTHYROXINE SODIUM 50 MCG TABLET PO SCH (05:58)
[2022-04-02 06:29] LABS: Hematocrit (blood only) 20.4 % (34.1-44.9); Hemoglobin 6.5 g/dl (12.0-16.0); Mean Corpuscular Hemoglobin 36.7 pg (25.0-34.0); Mean Corpuscular Hgb Conc 31.9 g/dL (32.0-36.0); Mean Corpuscular Volume 115.3 fL (80.0-100.0); Nucleated RBC # (auto) 0.07 K/uL (0-0); Nucleated RBC % (auto) 0.7 %; Platelet Count 146 K/uL (130-400); RDW Coefficient of Variation 22.5 % (11.5-14.5); RDW Standard Deviation 91.8 fL (36.4-46.3); Red Blood Count 1.77 M/uL (3.93-5.22); White Blood Count 10.16 K/ul (4.8-10.8)
[2022-04-02 06:43] LABS: BUN Creatinine Ratio 23.7 (10-20); Calcium 9.1 mg/dl (8.5-10.1); Est GFR (African American) 17.3 ml/min; Est GFR (Non-African American) 14.9 ml/min; Magnesium 2.5 mg/dl (1.7-2.4); Potassium 5.1 mmol/L (3.5-5.1)
[2022-04-02 06:50] LABS: Anisocytosis Present; Basophils # (auto) 0.02 K/uL (0-0.2); Basophils % (auto) 0.2 %; Eosinophils # (auto) 0.01 K/uL (0-0.50); Eosinophils % (auto) 0.1 %; Immature Granulocytes # (auto) 0.23 K/uL (0.00-0.02); Immature Granulocytes % (auto) 2.3 %; Lymphocytes # (auto) 0.49 K/uL (1.2-3.4); Lymphocytes % (auto) 4.8 %; Macrocytosis Present; Monocytes # (auto) 0.74 K/uL (0.24-0.82); Monocytes % (auto) 7.3 %; Neutrophils # (auto) 8.67 K/uL (1.4-6.5); Neutrophils % (auto) 85.3 %; Ovalocytes 2+; Polychromasia 2+; Tear Drop Cells 1+
[2022-04-02] MEDS: NORMOSOL-R 1,000 ML IV SCH ×2 (06:53→17:22)
--- NOTE | 2022-04-02 08:38 | Nephrology Consultation ---
Date of Consultation April 02, 2022 Assessment & Plan (1) Acute kidney injury: * PATY due to hypotension/shock. Cr has stablized at 2.7. Dean is in place. Patient is still making urine * Continue gentle hydration. Monitor UO, PRP * No acute indication for HD. Family does not wish to escalate care if cond ition worsens due to patient's frailty (2) Chronic kidney disease (CKD): * CKD stage G3b/A2 (moderate impairment). Baseline Cr has been 1.5 w/ EGFR 30 cc/min. CKD attributed to microvascular disease (3) Hyperkalemia: * KCl supplement stopped * Serum K corrected w/ medical management (4) MRSA bacteremia: * On Daptomycin as per ID specialist (5) Cirrhosis: History of Present Illness Reason for Consultation: PATY/CKD, hyperkalemia Attending Physician: Roz Spicer MD History of Present Illness Ms. Porter is an 87 year old white female who is seen at the request of Dr. Spicer for evaluation of PATY/CKD, hyperkalemia. Hospital course was reviewed w/ Dr. Spicer by telephone last evening. Plan of care was discussed w/ ICU team this morning. Ms. Porter's medical history is significant for CKD stage G3b/A2 (moderate impairment). Baseline Cr has been 1.5 w/ EGFR 30 cc/min. Prior evaluation by Dr. Galaviz in 2019 attributed CKD to microvascular disease and recurrent PATY. Her medical history is significant for ASCVD, diastolic heart failure, A. fib (on eliquis), hypothyroidism, asthma, COPD, diabetes, cirrhosis with severe skin itching, anemia, BETHANY, and BL venous insufficiency. She is a resident of one of the local nursing homes and was admitted to [facility] 03/17/22 due to hypoxia, RSV pneumonia. Her hospital course has been complicated by MRSA bacteremia due to intense pruritus and skin excoriations. Cr has risen from 1.5 to 2.78. Last evening Ms. Porter c/o abdominal pain. She was on KCl supplements and found to be hyperkalemic w/ K 7.0, no acute ECG changes but hypotensive w/ elevated lactate. Ms. Porter was transferred to the ICU for medical management of hyperkalemia and IV hydration. Her son, Ar, was present at the time of my evaluation this morning. He indicated that the family desired only conservative medical management and did not wish to escalate care (ie., mechanical ventilation, HD) if Ms. Porter's condition worsens. Allergies Allergy/AdvReac Type Severity Reaction Status Date / Time shellfish derived Allergy Severe ANAPHYLAXIS Verified 03/13/22 11:20 iodine Allergy Intermediate ANAPHYLAXIS Verified 03/13/22 11:20 lisinopril Allergy Unknown Unknown Verified 03/13/22 11:20 oxybutynin [From Ditropan] Allergy Unknown Unknown Verified 03/13/22 11:20 sertraline [From Zoloft] Allergy Unknown Unknown Verified 03/13/22 11:20 paroxetine AdvReac Mild GI UPSET Verified 03/13/22 11:20 Home Medications Medication Instructions Recorded Confirmed Type cholecalciferol (vitamin D3) 25 2,000 unit PO QAM 05/11/20 03/17/22 History mcg (1,000 unit) tablet (Vitamin D3) polyethylene glycol 3350 17 8.5 g PO DAILY PRN Constipation 01/28/21 03/17/22 History gram/dose oral powder (Miralax) vit C 226 mg-vit E 90 mg-copper 1 cap PO BID 02/01/21 03/17/22 History 0.8 mg-zinc oxide-lutein 5 mg capsule (PreserVision Lutein) allopurinol 100 mg tablet 300 mg PO QAM #90 tabs 12/16/21 03/17/22 Rx (Zyloprim) apixaban 2.5 mg tablet (Eliquis) 2.5 mg PO BID #180 tabs 12/16/21 03/17/22 Rx bumetanide 2 mg tablet 2 mg PO BID #60 tabs 12/16/21 03/17/22 Rx clopidogrel 75 mg tablet (Plavix) 75 mg PO QAM #90 tabs 12/16/21 03/17/22 Rx digoxin 125 mcg (0.125 mg) tablet 125 mcg PO Q2D #15 tabs 12/16/21 03/17/22 Rx (Digitek) duloxetine 30 mg capsule,delayed 30 mg PO QAM #90 caps 12/16/21 03/17/22 Rx release (Cymbalta) duloxetine 60 mg capsule,delayed 60 mg PO QAM #90 caps 12/16/21 03/17/22 Rx release (Cymbalta) isosorbide mononitrate 30 mg 30 mg PO QAM #90 tabs 12/16/21 03/17/22 Rx tablet,extended release 24 hr levothyroxine 50 mcg tablet 50 mcg PO DAILYBB #30 tabs 12/16/21 03/17/22 Rx (Synthroid) magnesium oxide 400 mg PO BID #180 tabs 12/16/21 03/17/22 Rx metoprolol succinate 50 mg 150 mg PO BID #540 tabs 12/16/21 03/17/22 Rx tablet,extended release 24 hr (Toprol XL) mirtazapine 15 mg tablet (Remeron) 15 mg PO HS #30 tabs 12/16/21 03/17/22 Rx pantoprazole 40 mg tablet,delayed 40 mg PO QAM #90 tabs 12/16/21 03/17/22 Rx release (Protonix) polysaccharide iron complex 150 mg 150 mg PO QAM #90 caps 12/16/21 03/17/22 Rx iron capsule (Ferrex) potassium chloride 20 mEq 10 meq PO BID #180 tabs 12/16/21 03/17/22 Rx tablet,extended release (K-Tab) insulin glargine 100 unit/mL (3 28 unit (0.28 mL) subcut HS #15 mL 12/18/21 03/17/22 Rx mL) subcutaneous pen (Lantus Solostar U-100 Insulin) glucagon 1 mg solution for 1 mg subcut Q20M PRN hypoglycemia 01/02/22 03/17/22 Rx injection (Glucagon Emergency Kit) #1 ea nitroglycerin 0.3 mg sublingual 0.3 mg sublingual Q5M PRN Chest 01/17/22 03/17/22 History tablet Pain nystatin 100,000 unit/gram topical 1 applic topical TID 2 weeks #30 01/21/22 03/17/22 Rx cream grams insulin aspart U-100 100 unit/mL 7 - 10 unit (0.07 - 0.1 mL) subcut 02/04/22 03/17/22 Rx (3 mL) subcutaneous pen (Novolog TIDM #45 mL Flexpen U-100 Insulin aspart) clobetasol 0.05 % topical cream 1 applic topical BID #30 grams 02/19/22 03/17/22 Rx guaifenesin 600 mg tablet, 600 mg PO BID PRN cough #60 tabs 03/13/22 03/17/22 Rx extended release 12 hr Patient History Medical History Anemia Asthma Atrial fibrillation CAD (coronary artery disease) Cerebrovascular disease Chronic diastolic congestive heart failure Chronic kidney disease (CKD) Stage III, baseline Cr 1.3-1.5mg/dL. Complicated with normocytic anemia and secondary hyperparathyroidism. Followed by nephrology. 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 Cannot perform MRI due to bladder implant. Followed by pain management. Epidural steroid injections with improvement of pain. Evaluated by ortho, decided against surgery. Managed with gabapentin 300mg TID + APAP PRN + tapentadol 50mg BID PRN GERD (gastroesophageal reflux disease) GIB (gastrointestinal bleeding) History of gout Managed with allopruinol daily. No recent gouty attacks. Uric acid suppressed 3.4 mg/dl (12/22) Hyperlipidemia Secondary prevention with moderate intensity statin (atorvastatin 20mg daily) Hypertension Hypothyroidism Lichen planus Macular degeneration Mitral regurgitation Neurologic gait dysfunction Obstructive sleep apnea Long standing. Managed with CPAP nightly. CPAP titration polysomnography (07/14). Sensorineural hearing loss (SNHL) of both ears Venous insufficiency of both lower extremities Surgical History H/O colonoscopy History of repair of rectocele S/P breast biopsy S/P section S/P cholecystectomy S/P hysterectomy S/P implantation of urinary electronic stimulator device Family History Father , Age 64 No problems noted. Mother , Age 61 No problems noted. Other Coronary heart disease Denies family history of Ovarian cancer Prostate cancer Crohn's disease Breast cancer Lung cancer Colorectal cancer Social History Smoking Status: Never smoker Second Hand Exposure: No; Do You Dip or Chew Tobacco: No; Tobacco Cessation Education Requested by Patient: No Hx Alcohol Use: No Hx Substance Use: No Preferred Language: Syriac Communication Ability: Effective Visual Impairment: No Limitations Hearing Ability: Normal [employer] Developer Required: No Beliefs That Will Affect Care: None marital status: Single Current Living Situation: [facility] Current Living Situation Comment: [facility] current occupational status: retired How many Children do You have: 3 Other Information That Helps Us Care for You: No Feels Safe at Home: Yes Safety Concerns: Feels Safe At This Time Childhood Exposure to Second-Hand Smoke: No Diet Comment: DIABETIC caffeine: No during the past year weight has: remained stable Dental Care, Regularly: No Physical Activity Frequency: 1-2 Times per Week Seatbelt Use: always Sunscreen Use: Yes Assistive Devices: Glasses and Walker Review of Systems Review of Systems: Unobtainable due to cognitive status Physical Exam Constitutional: + ill appearing and + frail appearing Eyes: PERRL, conjunctivae normal, anicteric sclerae ENMT: external ear and nose normal, oropharynx normal Neck: trachea midline, no thyromegaly Respiratory: + tachypneic Cardiovascular: RRR, no murmur, no edema Gastrointestinal (Abdomen): normal bowel sounds, soft, nontender, no hepatosplenomegaly Neurologic: awake (nonverbal) Results & Data ([facility]) Vital Signs (Past 12 Hours) Vital Signs Temp Pulse Pulse Resp BP BP Pulse Ox 04/02/22 04:00 93 H 14 97 04/02/22 03:30 86 17 97 04/02/22 03:19 120/80 04/02/22 03:19 95 H 18 94 04/02/22 03:10 71 15 96 04/02/22 03:10 115/49 L 04/02/22 03:00 69 16 96 04/02/22 03:00 112/40 L 04/02/22 02:50 70 12 96 04/02/22 02:50 118/38 L 04/02/22 02:39 112/48 L 04/02/22 02:39 69 15 93 04/02/22 02:30 69 17 93 04/02/22 02:30 113/45 L 04/02/22 02:20 72 19 91 04/02/22 02:20 111/42 L 04/02/22 02:09 111/38 L 04/02/22 02:09 68 17 93 04/02/22 02:00 68 17 94 04/02/22 02:00 98/44 L 04/02/22 01:40 120/52 L 04/02/22 01:40 66 23 79 L 04/02/22 01:30 67 29 H 04/02/22 01:30 139/43 L 04/02/22 01:20 65 28 H 04/02/22 01:20 109/55 L 04/02/22 01:15 66 32 H 04/02/22 00:45 63 21 99 04/02/22 00:30 63 20 77 L 04/02/22 00:15 59 L 19 100 04/01/22 23:45 58 L 21 98 04/02/22 01:00 64 19 100 04/02/22 00:59 121/42 L 04/02/22 00:59 64 20 100 04/02/22 00:49 123/41 L 04/02/22 00:49 63 22 99 04/02/22 00:40 114/38 L 04/02/22 00:40 62 18 100 04/02/22 00:10 59 L 20 99 04/02/22 00:10 118/35 L 04/02/22 00:00 58 L 20 100 04/02/22 00:00 110/42 L 04/01/22 23:50 115/39 L 04/01/22 23:50 58 L 21 100 04/01/22 23:40 114/55 L 04/01/22 23:40 57 L 19 04/01/22 23:30 57 L 18 04/01/22 23:30 116/39 L 04/01/22 23:21 56 L 20 04/01/22 23:21 96/36 L 04/01/22 23:00 60 33 H 04/01/22 22:10 53 L 19 04/01/22 22:10 113/39 L 04/01/22 22:00 51 L 21 04/01/22 22:00 99/38 L 04/01/22 21:40 146/111 H 04/01/22 21:40 52 L 27 H 04/01/22 21:00 52 L 25 H 04/01/22 22:41 36.8 C 55 L 25 H 113/39 L 96 04/01/22 21:53 04/01/22 20:59 53 L 18 93 O2 Del Method O2 Flow Rate 04/02/22 04:00 04/02/22 03:30 04/02/22 03:19 04/02/22 03:19 04/02/22 03:10 04/02/22 03:10 04/02/22 03:00 04/02/22 03:00 04/02/22 02:50 04/02/22 02:50 04/02/22 02:39 04/02/22 02:39 04/02/22 02:30 04/02/22 02:30 04/02/22 02:20 04/02/22 02:20 04/02/22 02:09 04/02/22 02:09 04/02/22 02:00 04/02/22 02:00 04/02/22 01:40 04/02/22 01:40 04/02/22 01:30 04/02/22 01:30 04/02/22 01:20 04/02/22 01:20 04/02/22 01:15 04/02/22 00:45 04/02/22 00:30 04/02/22 00:15 04/01/22 23:45 04/02/22 01:00 04/02/22 00:59 04/02/22 00:59 04/02/22 00:49 04/02/22 00:49 04/02/22 00:40 04/02/22 00:40 04/02/22 00:10 04/02/22 00:10 04/02/22 00:00 04/02/22 00:00 04/01/22 23:50 04/01/22 23:50 04/01/22 23:40 04/01/22 23:40 04/01/22 23:30 04/01/22 23:30 04/01/22 23:21 04/01/22 23:21 04/01/22 23:00 04/01/22 22:10 04/01/22 22:10 04/01/22 22:00 04/01/22 22:00 04/01/22 21:40 04/01/22 21:40 04/01/22 21:00 04/01/22 22:41 Room Air 04/01/22 21:53 Nasal Cannula 2 04/01/22 20:59 Nasal Cannula 3 Laboratory Results Laboratory Tests 04/02/22 04/02/22 05:14 05:14 WBC 10.16 Hgb 6.5 L* Hct 20.4 L* Plt Count 146 Sodium 142 Potassium 5.1 D Chloride 93 L Carbon Dioxide 41 H* BUN 66 H Creatinine 2.78 H Glucose 196 H Magnesium 2.5 H PG Care Time/CCT Total # of Minutes Spent Total Time Spent with Patient: Total time spent is greater than 50% in coordination of care (as documented) at patient's floor/unit and/or counseling patient: Coding Level of Care Code 68992 Inpt Consult Level 5 Diagnoses Acute kidney injury N17.9 Chronic kidney disease (CKD) N18.9 Hyperkalemia E87.5 MRSA bacteremia R78.81; B95.62 Cirrhosis K74.60
[2022-04-02] MEDS: INSULIN ASPART PER UNIT SC SCH ×3 (09:08→17:42)
[2022-04-02] MEDS: DULoxetine HCL 30 MG CAP PO SCH (09:09)
[2022-04-02] MEDS: APIXABAN 2.5 MG TAB PO SCH ×2 (09:09→21:02)
[2022-04-02] MEDS: CLOPIDOGREL BISULFATE 75 MG TAB PO SCH (09:09)
[2022-04-02] MEDS: DULoxetine HCL 60 MG CAP PO SCH (09:09)
--- NOTE | 2022-04-02 09:53 | Critical Care Progress Note ---
Date of Service April 02, 2022 Assessment & Plan (1) Hypotension: (2) Lactic acid acidosis: (3) PATY (acute kidney injury): (4) Hyperkalemia: (5) Abdominal pain: (6) MRSA bacteremia: (7) COPD exacerbation: (8) Cirrhosis: (9) Chronic heart failure with preserved ejection fraction (HFpEF): (10) GERD (gastroesophageal reflux disease): (11) CAD (coronary artery disease): (12) S/P implantation of urinary electronic stimulator device: (13) Diabetes mellitus, type II: Plan ICU CONSULT NOTE FORMAT: Reason Critically Ill: Hypotensive in the setting of acute onset abdominal pain and associated hyperkalemia, lactic acidosis, and persistent hypoglycemia and likley narcotic related narcosis on top of metabolic encephalopathy. Neuro - Encephalopathy: Resolved narcotic induced narcosis: Resolved Responded well to narcan, remains with underlying metabolic encephalopathy which is multifactorical to include cirrhosis, acidosis, hypoglycemia and hypotension - currently supportive care to her laboratory abnormalities and hypoglycemia - Hold cymbalta Cardiac - Shock, hypotension: Improved AFIB: Rate controlled bradycardia: CAD, Hyperkalemia: Resolved - Prior echo reviewed - Digoxin has been held since admission Respiratory - COPD - exacerbation appears resolved as she is on nasal cannula, wean as tolerated -Goal oxygen saturation 92-96 GI - Cirrhosis of unknown etiology -Questionable hepatic insufficiency -Repeat lactate -Consider additional thiamine given 500 mg yesterday RENAL/LYTES - PATY on CKD,: Improving - making some urine dark -Maintenance Normosol at 90 mLs -Goal fluid balance to be even -Unclear etiology of hypercalcemia - NO acute needs ENDO - DMII, hypoglycemia resolved HEME - Chronic hemolytic anemia Consider 1 unit packed red blood cells -reticulocyte count ID - MRSA bacteremia - continue daptomycin- nidus was not fully identified- ECHO 03/17 with EF 60- 65% no evidence of valve vegetation - afebrile and no increase in WBC noted on this evening labs LINES/IV ACCESS - PICC, Dean, PIV Continue use of these lines DVT PROPHYLAXIS - SCDS, apixaban DISPO: Stable for downgrade out of ICU, DNR/DNI. Yesterday's transfer to the ICU the patient appeared to be in multisystem organ dysfunction and I am very surprised she has remarkably improved in the last 12 hours. Mesenteric ischemia was in the differential and that does not appear to be the case, the patient is hungry and desires to eat Jell-O. Sepsis is in the differential but I do not feel that it is likely, acute blood loss anemia is also in the differential but there is no overt signs of ongoing blood loss and I think her decrease in her H&H is secondary to volume resuscitation. Considered giving packed red blood cells however she is asymptomatic at this time, as there is agreement and moving towards limiting interventions I will liberalize the patient's diet and allow her to eat for comfort. Given the frequent hospitalizations and increased duration, and several chronic medical conditions feel that the patient is nearing the end of life and certainly her life expectancy would be 6 months or less. In discussion with the patient's daughter there focuses transitioning to keeping the patient comforta ble. I am not sure if we would able to improve her baseline physical status to give her significant functional improvement. Patient did not want to utilize pressors or aggressive measures yesterday for continued resuscitative efforts so I do not feel that critical care has significant modalities that would align with the patient's wishes. Patient may benefit from palliative care consult for symptom management of her medical conditions. I discussed this with the hospitalist service who will be continuing to follow the patient. Admission and Anticipated Discharge Date Admission Date: March 17, 2022 Subjective Patient improved. She denies pain tells me her first name. Reports that she would like to drink fluids and desires sugar-free Jell-O. Had an extensive discussion with the patient's daughter at bedside. 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 There is no additional daughter, all are reportedly aware that the patient has several chronic medical conditions that have not been improving. She has been hospitalized 3 times in the last 6 weeks and hospitalizations are increasing in frequency. Patient was recently placed in a personal half-way for several reasons but largely inability to be safe and complete activities of daily living. Upon placement personal-half-way the patient's daughter reports she noticed elevated spirits and increased activities. She is recently hospitalized for hypoxia and cough related to RSV. In talking long-term issues the patient has been fiercely independent and by large part is not following physician recommendations and focusing more on comfort. Family feels that the overarching focus should probably be on patient comfort and not prolonging life. Review of Systems Review of Systems: No abdominal pain no shortness of breath. As per HPI otherwise Physical Exam Physical Exam: General: Alert. Following complex commands Skin: Warm, dry, Head: Atraumatic Ears, nose, mouth and throat: airway patent Cardiovascular: Normal peripheral perfusion Respiratory: no respiratory distress Gastrointestinal: Non distended Musculoskeletal: No deformity Results & Data Results & Data ([facility]) Vital Signs (Past 12 Hours) Vital Signs Temp Pulse Pulse Resp BP BP Pulse Ox 04/02/22 04:00 93 H 14 97 04/02/22 03:30 86 17 97 04/02/22 03:19 120/80 04/02/22 03:19 95 H 18 94 04/02/22 03:10 71 15 96 04/02/22 03:10 115/49 L 04/02/22 03:00 69 16 96 04/02/22 03:00 112/40 L 04/02/22 02:50 70 12 96 04/02/22 02:50 118/38 L 04/02/22 02:39 112/48 L 04/02/22 02:39 69 15 93 04/02/22 02:30 69 17 93 04/02/22 02:30 113/45 L 04/02/22 02:20 72 19 91 04/02/22 02:20 111/42 L 04/02/22 02:09 111/38 L 04/02/22 02:09 68 17 93 04/02/22 02:00 68 17 94 04/02/22 02:00 98/44 L 04/02/22 01:40 120/52 L 04/02/22 01:40 66 23 79 L 04/02/22 01:30 67 29 H 04/02/22 01:30 139/43 L 04/02/22 01:20 65 28 H 04/02/22 01:20 109/55 L 04/02/22 01:15 66 32 H 04/02/22 00:45 63 21 99 04/02/22 00:30 63 20 77 L 04/02/22 00:15 59 L 19 100 04/01/22 23:45 58 L 21 98 04/02/22 01:00 64 19 100 04/02/22 00:59 121/42 L 04/02/22 00:59 64 20 100 04/02/22 00:49 123/41 L 04/02/22 00:49 63 22 99 04/02/22 00:40 114/38 L 04/02/22 00:40 62 18 100 04/02/22 00:10 59 L 20 99 04/02/22 00:10 118/35 L 04/02/22 00:00 58 L 20 100 04/02/22 00:00 110/42 L 04/01/22 23:50 115/39 L 04/01/22 23:50 58 L 21 100 04/01/22 23:40 114/55 L 04/01/22 23:40 57 L 19 04/01/22 23:30 57 L 18 04/01/22 23:30 116/39 L 04/01/22 23:21 56 L 20 04/01/22 23:21 96/36 L 04/01/22 23:00 60 33 H 04/01/22 22:10 53 L 19 04/01/22 22:10 113/39 L 04/01/22 22:00 51 L 21 04/01/22 22:00 99/38 L 04/01/22 22:41 36.8 C 55 L 25 H 113/39 L 96 04/01/22 21:53 O2 Del Method O2 Flow Rate 04/02/22 04:00 04/02/22 03:30 04/02/22 03:19 04/02/22 03:19 04/02/22 03:10 04/02/22 03:10 04/02/22 03:00 04/02/22 03:00 04/02/22 02:50 04/02/22 02:50 04/02/22 02:39 04/02/22 02:39 04/02/22 02:30 04/02/22 02:30 04/02/22 02:20 04/02/22 02:20 04/02/22 02:09 04/02/22 02:09 04/02/22 02:00 04/02/22 02:00 04/02/22 01:40 04/02/22 01:40 04/02/22 01:30 04/02/22 01:30 04/02/22 01:20 04/02/22 01:20 04/02/22 01:15 04/02/22 00:45 04/02/22 00:30 04/02/22 00:15 04/01/22 23:45 04/02/22 01:00 04/02/22 00:59 04/02/22 00:59 04/02/22 00:49 04/02/22 00:49 04/02/22 00:40 04/02/22 00:40 04/02/22 00:10 04/02/22 00:10 04/02/22 00:00 04/02/22 00:00 04/01/22 23:50 04/01/22 23:50 04/01/22 23:40 04/01/22 23:40 04/01/22 23:30 04/01/22 23:30 04/01/22 23:21 04/01/22 23:21 04/01/22 23:00 04/01/22 22:10 04/01/22 22:10 04/01/22 22:00 04/01/22 22:00 04/01/22 22:41 Room Air 04/01/22 21:53 Nasal Cannula 2 Critical Care Results & Data Vital Signs (Past 12 Hours) Vital Signs Temp Pulse Resp BP Pulse Ox O2 Del Method O2 Flow Rate 04/02/22 10:01 110/47 L 04/02/22 10:01 72 16 91 04/02/22 10:00 83 14 93 04/02/22 09:32 77 20 85 L 04/02/22 09:32 102/50 L 04/02/22 09:30 81 15 90 04/02/22 09:01 82 15 95 04/02/22 09:01 105/58 L 04/02/22 09:00 86 16 95 04/02/22 08:32 75 17 96 04/02/22 08:32 108/49 L 04/02/22 08:30 85 20 100 04/02/22 08:01 108/55 L 04/02/22 08:01 82 14 90 04/02/22 08:00 77 15 87 L 04/02/22 07:31 106/49 L 04/02/22 07:31 95 H 27 H 98 04/02/22 07:30 88 19 96 04/02/22 07:20 79/49 L 04/02/22 07:20 84 20 98 04/02/22 07:10 117/56 L 04/02/22 07:10 92 H 21 95 04/02/22 07:00 90 14 96 04/02/22 07:00 118/49 L 04/02/22 10:14 Nasal Cannula 04/02/22 10:02 84 L Nasal Cannula 2 04/02/22 08:00 97 Nasal Cannula 4 04/02/22 08:00 Nasal Cannula 4 04/02/22 08:00 36.9 C 20 94 Nasal Cannula 4 04/02/22 04:00 93 H 14 97 04/02/22 03:30 86 17 97 04/02/22 03:19 120/80 04/02/22 03:19 95 H 18 94 04/02/22 03:10 71 15 96 04/02/22 03:10 115/49 L 04/02/22 03:00 69 16 96 04/02/22 03:00 112/40 L 04/02/22 02:50 70 12 96 04/02/22 02:50 118/38 L 04/02/22 02:39 112/48 L 04/02/22 02:39 69 15 93 04/02/22 02:30 69 17 93 04/02/22 02:30 113/45 L 04/02/22 02:20 72 19 91 04/02/22 02:20 111/42 L 04/02/22 02:09 111/38 L 04/02/22 02:09 68 17 93 04/02/22 02:00 68 17 94 04/02/22 02:00 98/44 L 04/02/22 01:40 120/52 L 04/02/22 01:40 66 23 79 L 04/02/22 01:30 67 29 H 04/02/22 01:30 139/43 L 04/02/22 01:20 65 28 H 04/02/22 01:20 109/55 L 04/02/22 01:15 66 32 H 04/02/22 00:45 63 21 99 04/02/22 00:30 63 20 77 L 04/02/22 00:15 59 L 19 100 04/02/22 01:00 64 19 100 04/02/22 00:59 121/42 L 04/02/22 00:59 64 20 100 04/02/22 00:49 123/41 L 04/02/22 00:49 63 22 99 04/02/22 00:40 114/38 L 04/02/22 00:40 62 18 100 04/02/22 00:10 59 L 20 99 04/02/22 00:10 118/35 L Lab & Micro Results (Past 24 Hours) RBC 1.77 M/uL (3.93-5.22) L 04/02/22 WBC 10.16 K/ul (4.8-10.8) 04/02/22 Hgb 6.5 g/dl (12.0-16.0) L* 04/02/22 Hct 20.4 % (34.1-44.9) L* 04/02/22 MCV 115.3 fL (80.0-100.0) H 04/02/22 MCH 36.7 pg (25.0-34.0) H 04/02/22 MCHC 31.9 g/dL (32.0-36.0) L 04/02/22 RDW Standard Deviation 91.8 fL (36.4-46.3) H 04/02/22 RDW Coefficient of Variation 22.5 % (11.5-14.5) H 04/02/22 Plt Count 146 K/uL (130-400) 04/02/22 MPV 12.9 fL (9.4-12.3) H 04/01/22 Nucleated Red Blood Cells % (auto) 0.7 % 04/02 Nucleated RBC Absolute Count (auto) 0.07 K/uL (0-0) H 03/07 11/25 Neutrophils (%) (Auto) 85.3 % 04/02/22 Lymphocytes (%) (Auto) 4.8 % 04/02/22 Monocytes # (Auto) 0.74 K/uL (0.24-0.82) 04/02/22 Eosinophils # (Auto) 0.01 K/uL (0-0.50) 04/02/22 Immature Granulocyte % (Auto) 2.3 % 04/02/22 Neutrophils # (Auto) 8.67 K/uL (1.4-6.5) H 04/02/22 Lymphocytes # (Auto) 0.49 K/uL (1.2-3.4) L 04/02/22 Monocytes # (Auto) 0.74 K/uL (0.24-0.82) 04/02/22 Eosinophils # (Auto) 0.01 K/uL (0-0.50) 04/02/22 Basophils # (Auto) 0.02 K/uL (0-0.2) 04/02/22 Immature Granulocyte # (Auto) 0.23 K/uL (0.00-0.02) H 04/02 Polychromasia 2+ 04/02/22 Poikilocytosis Present 04/01/22 Anisocytosis Present 04/02/22 Macrocytosis Present 04/02/22 Tear Drop Cells 1+ 04/02/22 Ovalocytes 2+ 04/02/22 Na 142 mmol/L (136-145) 04/02/22 K 5.1 mmol/L (3.5-5.1) 04/02/22 Cl 93 mmol/L (98-107) L 04/02/22 CO2 41 mmol/L (21-32) H* 04/02/22 Anion Gap 8 (3-11) 04/02/22 BUN 66 mg/dl (6-23) H 04/02/22 Creatinine 2.78 mg/dl (0.6-1.2) H 04/02/22 Estimated GFR ( Amer) 17.3 ml/min 04/02/22 Estimated GFR (Non-Af Amer) 14.9 ml/min 04/02/22 BUN/Creatinine Ratio 23.7 (10-20) H 04/02/22 Glu 196 mg/dl (70-99(Fasting)) H 04/02/22 Ca 9.1 mg/dl (8.5-10.1) 04/02/22 Total Bilirubin 3.9 mg/dl (0.2-1.0) H 04/01/22 AST 31 U/L (13-39) 04/01/22 ALT 23 U/L (7-52) 04/01/22 Alkaline Phosphatase 266 U/L (34-104) H 04/01/22 TP 6.9 gm/dl (6.0-8.3) 04/01/22 Albumin 3.5 gm/dl (3.4-5.0) 04/01/22 Globulin 3.4 gm/dl (2.5-4.0) 04/01/22 Albumin/Globulin Ratio 1.0 (0.9-2) 04/01/22 Mg 2.5 mg/dl (1.7-2.4) H 04/02/22 05:14 Calcium Level 9.1 mg/dl (8.5-10.1) 04/02/22 05:14 Ionized Calcium 1.13 mmol/L (1.12-1.32) 04/02/22 05:14 Prothromb Time International Ratio 1.5 (0.9-1.1) H 04/01/22 18 :08 Diagnostic Findings (Past 24 Hours) Abdomen/Pelvis CT 04/01/22 15:50 CT abd pelvis wo con CLINICAL HISTORY: severe mid abdominal pain TECHNIQUE: Helical axial images of the abdomen and pelvis were obtained. Automated dose lowering techniques and/or adjustment according to patient size were utilized for this exam. This exam was performed without intravenous contrast. CT DOSE: 292.64 mGy.cm COMPARISON: Comparison is made to CT abdomen pelvis 01/03/2021 FINDINGS: Lower chest: Moderate right and small left pleural effusions are seen. Scattered groundglass opacities are seen. Liver: Unremarkable. No focal lesions are seen. Gallbladder and biliary tree: Patient is status post cholecystectomy. No intra- or extrahepatic biliary ductal dilation. Pancreas: Unremarkable, no focal lesions. Spleen: Unremarkable. Adrenals: Unremarkable. Kidneys and ureters: The left kidney is atrophic. Bladder: Unremarkable. Reproductive organs: Patient is status post hysterectomy. Bowel: There is a moderate to large stool burden. The appendix is normal. Lymph nodes Retroperitoneal: Unremarkable. Pelvic: Unremarkable. Mesenteric: Unremarkable. Peritoneum: Normal. Vessels: Atherosclerotic calcifications are seen. Abdominal wall: Unremarkable. A battery-powered neurostimulator is noted. Bones: Mild degenerative changes are seen. IMPRESSION: No acute abnormalities to explain severe mid abdominal pain. The appendix is normal. ACT 112: Negative or not required by law. Electronically signed by: Jhoan Cox M.D. 04/01/2022 5:01 PM I & O Totals 24 Hours 04/01/22 04/02/22 04/03/22 06:59 06:59 06:59 Intake Total 250 / 250 2120.333 / 2120.333 702.5 / 702.5 Output Total 2 / 2 Balance 250 / 250 2118.333 / 2118.333 702.5 / 702.5 Cumulative 03/17/22 13:02 thru 04/02/22 10:19 Intake Total 9592.833 Output Total 1330 Balance 8262.833 RT Ventilator Mngmt (Last Documented) Ventilator Ordered Settings Respiratory Rate 16 04/02/22 10:01 Fraction of Inspired Oxygen 30 03/17/22 13:41 Ventilator - PT Measurements Respiratory Rate 16 Coding Level of Care Code 43190 Subseq Hosp Care Lvl 3 Diagnoses Hypotension I95.9 Lactic acid acidosis E87.20 PATY (acute kidney injury) N17.9 Hyperkalemia E87.5 Abdominal pain R10.9 MRSA bacteremia R78.81; B95.62 COPD exacerbation J44.1 Cirrhosis K74.60 Chronic heart failure with preserved ejection fraction (HFpEF) I50.32 GERD (gastroesophageal reflux disease) K21.9 Esophagitis presence: esophagitis presence not specified CAD (coronary artery disease) I25.10 S/P implantation of urinary electronic stimulator device Z96.0 Diabetes mellitus, type II E11.9 (1) GERD (gastroesophageal reflux disease) Esophagitis presence: esophagitis presence not specified Qualified Code(s): K21.9 - Gastro-esophageal reflux disease without esophagitis
[2022-04-02 10:10] LABS: Reticulocyte % 5.7 % (0.5-2.0); Reticulocytes # 0.1 10^6/uL (0.02-0.10)
[2022-04-02] MEDS: IRON POLYSACCHARIDE COMPLEX 150 MG CAPSULE PO SCH (10:17)
[2022-04-02] MEDS: NYSTATIN POWDER 15GM BTL EXT SCH ×2 (10:18→21:03)
--- NOTE | 2022-04-02 10:54 | Infectious Disease Progress Nt ---
Date of Service April 02, 2022 Assessment & Plan (1) MRSA bacteremia: (2) CKD (chronic kidney disease): (3) Pruritus: (4) COPD exacerbation: Plan This is an 87 year old female with pmh of cad, diastolic HF, Atrial fibrillation on Eliquis, CKD, hypothyroidism, dm2, cirrhosis, severe skin itching , chronic wounds ,vascular insufficiency who presents to the ED on 03/17/22 with increased shortness of breath and RLE pain. Shortness of breath was worse with exertion and associated with a dry cough. She lives in assisted living but denies any known sick contacts. She denies productive cough, fever, chills, nausea, vomiting, chest pain, joint pain, change in urine or bowel habits. recent falls or trauma to skin. She endorses itching her skin and has some scabs secondary to this. She was initially found to be in respiratory distress and hypoxic by EMS and placed on cpap. In the Ed, she was afebrile with BP 155/70, RR 40, HR 89 and 100 % 02 sat on CPAP. She was switched to Bipap for comfort and than 4 LNC Labs were noted for a WBc of 9.9 , Cr 1.5, procal 0.09, and negative covid, Influenza, and RSV testing . Repeat Viral respiratory panal + for RSV. CXr showed mild central pulmonary vascular congestion. R femur Xray was unremarkable and LE doppler was negative for DVt. She was started on azithromycin/ steroids for possible COPD exacerbation with mild chf component. She was continued on home dose of Bumex. Her respiratory status improved and she was weaned to room air. Her hospital course was c/b 1/4 MRSA bacteremia on 03/17. Repeat blood cultures from 03/21 are sterile. She denies hardware, prosthetics but has a sacral stimulator on imaging. A TTE done 03/21 is without valve vegetations Id consulted for evaluation of MRSA bacteremia Micro: BC 03/17 1/4+ mrsa Mrsa screen 03/17 and 03/21 positive Bc 03/21 Sterile MRSA RX M.I.C. --- --------- Clindamycin R >4 Daptomycin S 1 Erythromycin R >4 Oxacillin R >2 Rifampin S<=1 Tetracycline S<=4 Trimeth/Sulfa S<=0.5/9.5 Vancomycin S 2 S = SENSITIVE I = INTERMEDIATE R = Respiratory PCR panel+ RSV ABx: azithromycin 03/17-03/21 vancomycin 03/19- 03/26 ; vanco trough 03/20-24.2, random level 03/22 19.6 Daptomycin 03/26 - ongoing Hypotension, AMS, lactic acidosis,hypoxia NEW on04/01 -No evidence of new infection - thought to be 2/2 Narcotics- resolving sp Narcan - now awake and alert Mrsa bacteremia of unknown etiology possible sources: skin vs endocarditis ( has ? splinter hemorrhage on right 4th toe nail bed vs toe nail trauma) - Has urinary electronic stimulator in place- sacral stimulator seen on pelvis xray done on 02/15/22. She has no prosthetic joints or heart valves - multiple skin disruptions:abrasions, scratched skin, dried wounds, excessive finger nail bitting with dystrophic damaged finger nail beds - left anterior swanson with open wound - mild drainage, tender - nicks on toes , but one area with ? splinter hemorrhage vs nail bed trauma - TTE on 03/21 is negative for vegetation,mod- severe TR , mild - mod MR - no joint pain or effusions on exam - no central lines prior to pICC placed 03/26 - esr 14 - cards and patient did not want to pursue Jorge Luis Chronic skin wounds, abrasions, history of MRSA positive WC -per review of micro data has had+ MRSA wound cultures in past ( wc + MRSA, 12/27/20 and 08/19/18) - no deep wounds or probing to bone. Severe finger nail biting - dry bleeding cuticles: resolved Acute hypoxic respiratory failure- cpap-->Bipap---> 4l NC ---> now on RA---> back on NC thought to be 2/2 COPD exacerbation triggered by rsv infection Covid,flu, rsv negativeRSV+ on pcr No infiltrate on cxr to suggest bacterial pna - pleural effusion seen on ct lumber spine 03/26 - Sacral stimulator seen on imaging from 02/15/22. - urinary electronic stimulator in place- pt unclear why she has it.Denies ab pain,urinary symptoms or back pain. -Ct lumbar spine from 03/26/22 reviewed. Sacral bladder stimulator lead is noted. The battery pack is not entirely imaged. There is no fluid along the stimulator lead to suggest infection - per d/w son at bedside on 03/26 - stimulator has been in place for "years"- no longer working. Pt has refused removal PATY on CKD - cr worsening on 04/01 mild bl inguinal candidiasis Chronic pruritus - per son her pcp believes this may from ? cirrhosis. leukocytosis- resolved Discussion A possible source for the 1/4 MRSA bacteremia on 03/17 is the skin. Staph aureus is part of skin nuha.She has a history of MRSA + wound cultures in past ( 2018 and 2020). She has chronic pruritus and repeatedly scratches her skin, which has led to chronic wounds. She excessively bites her finger nails and has uneven, dystrophic, uneven nail beds with loosened and missing nails on some fingers and bleeding cuticles. She has multiple dried lesions on lower extremity. There is an area of mild TTP and slight drainage from area of abraded skin on the left anterior calf. There is a bluish discoloration that is blanchable on the plantar side of R great toe, the Left 3rd toe is mildly red and tender to touch. However on the R 4th toe, there is what appears to be a ?splinter hemorrhage on the nail bed ? c/f possible embolic phenomena vs nail trauma Given bacteremia and ? splinter hemorrhage, would pursue JORGE LUIS to rule out endocarditis. However per d/w with her payroll representative, Dr Roland( also follows her outpt) on 03/25, he feels her fragile state and comorbidities put her at high risk if JORGE LUIS done and does not recommend it. He follows her outpatient and feels that endocarditis is not likely Additionally, patient does want to pursue JORGE LUIS for definitive rule out of endocarditis . TTE done 03/21 did not reveal valve vegetation. BC cleared as of 03/21 ON 03/26, IV vancomycin was changed to Daptomycin- 8 mg/kg IV 48given renal function and ease of dosing, BASELINE CPK 38 -Continue wound care inpatient and outpatient for control of possible source of introduction of MRSA - Address pruritus, as discussed above. She was doing well until 04/01. on 04/01 she was transferred to ICU as she was noted to be unresponsive. She complained of severe abdominal pain and nausea prior to the unresponsive episode. CtAB- WNL> vital were noted for hypotension and hypoxia. Labs + for hypoglycemia, lactic acidosis, hyperkalemia, worsening anemia, worsening PATY. She received Narcan, IVF, bicarb infusion and treatment of hyperkalemia. Family declined pressors or aggressive measure. Less than 24 hours after intervention on 04/02, she is awake and alert. Hypotension improved. Hyperkalemia resolved. She is still on NC and PATY persists. She denies fever, chills, sweats, new skin lesion, n/v, ab pain , change in stool or urine, LE pain. She has a dry cough. Daughter at bedside during my visit. Family and patient are considering r palliative /comfort care as the patient has declined medically in the last few months. Recommendations If no plan for comfort measures, Check BC, and CPK today/ Plan to treat bacteremia forprolonged period--minimum of 4 weeks of Daptomycin 8 mg kg IV q48 ( based on renal function) from sterile BCas we can not rule out endovascular infection, and she has hardware in place ( stimulator). Since only 1/ total bottles +, bacteremia cleared quickly, it seems less likely an endovascular infection and possibly secondary to skin as she presented with pain at abraded skin site and has multiple skin abrasions, chronic wounds, skin nicks However i can' t completely explain the lesion on her toe nail bed ( ?splinter hemorrhage or just trauma to toe nail?--admits to stubbing and nicking her toe). Ct lumbar spine done 03/26 shows no [place] evidence of infection. She has no physical exam findings to suggest infection or involvement of device . Based on the above a longer duration of abx recommended. Pruritus should be addressed ( etiology not completely elucidated). The chronic disruption of skin puts her at risk for continued introduction of bacteria into soft tissue--> blood--> sepsis , seeding her stimulator, deep seeded infections. I discussed the need to control scratching of the skin , aggressive wound care and sequela of continued process with pt and son on prior visits. Both verbalized understanding and has agreed with extended course of IV abx. I updated daughter today 04/02. Final decision on goals of care is pending. -tentative end date for Daptomycin is 04/18/22 ( 4 weeks)-- maximum 6 weeks ( 05/02/22) . Baseline CK is 38. -At 3 weeks, prior to abx completion , should follow up with PCP to evaluate wounds for healing. if still open complete maximum duration of 6 weeks of abx and end on 05/02/22. If all closed and dry can stop abx at 4 weeks on 04/18/22. -Repeat BC one week post completion of antibiotics to ensure BC clearance. -WEEKLY safety labs--cbc with diff, BMP, LFt AND CPK while on IV daptomycin -labs should be reviewed and monitored by PCP. Daptomycin adverse effects include myopathy, peripheral neuropathy, and eosinophilic pneumonia. Monitor closely. At this time she is pending discussion with palliative care and may pursue comfort measures. Thank you for allowing me to participate in the care of your patient. Rabia Dupont MD, MPH [facility] Admission and Anticipated Discharge Date Admission Date: March 17, 2022 Subjective Subsequent visit was provided via telemedicine using two-way real-time interactive telecommunication between the patient and the telemedicine provider. For the duration of the visit, the provider was performing the assessment from a different facility than the patient. This includesuse of bluetooth stethoscope forauscultationperformed by the telepresenter that the telemedicine provider can hear if described in the physical exam. Pail Bailer contact information: Please call [facility] [employer] [facility] [phone]. (Phone Number For Physician Use Only) After establishing a telemedicine visit, patient was: Patient/authorized rep acknowledged consent and understanding and Gave permission to continue telehealth session Subsequent Time Spent w Inpatient: 25 minutes -transferred to ICU overnight - yesterday noted to be unresponsive- - complained of severe abdominal pain and nausea prior to the unresponsive episode -CtAB- WNL vitals noted for hypotension and hypoxia - labs noted for hypoglycemia, lactic acidosis, hyperkalemia, anemia, worsening PATY - she is s/p Narcan, IVF, bicarb infusion and treatment of hyperkalemia -Now awake and alert. Daughter at bedside - Denies fever, chills, sweats, new skin lesion, n/v, ab pain , change in stool or urine, denies LE pain. + cough ( dry) improving family and patient are considering palliative/ comfort care At this time no pressors or aggressive measures Review of System + cough - improved. Physical Exam Physical Exam: Constitutional: awake, alert, conversant , chronically ill appearing, + NC Eyes: EOMI Neck: supple Respiratory: No increased work of breathing Cardiac: irregularly irregular Gastrointestinal: soft, Non tender, not distended, no CVA tenderness, No suprapubic tenderness, + ROBERSON in place Musculoskeletal: Moves all extremities. No joint effusions. No spinal tenderness, trace LE edema Skin: scabbed lesion on BL UE BL LE venous stasis changes, LE chronic dried crusted wounds. RLE crusted wound with less surrounding erythema. Not tender or warm. Left anterior swanson with area of abraded skin , not tender to touch, not warm. No drainage e. Several scabs on right toes. R 4th toenail with what appears to be a splin ter hemorrhages vs nail bed trauma( unchanged) Left 3rd toe is less red andno longer tender to touch, fingernail on both hands severely bitten , dystrophic appearing nails and dry appearing cuticles - no evidence of active infection . Left UE picc. No insertion site ttp Right AC peripheral line c/d/i Neurologic: awake, alert and oriented times 3. Psychiatric: Appropriate, cooperative Results & Data ([place]) Vital Signs (Past 12 Hours) Vital Signs Temp Pulse Resp BP Pulse Ox O2 Del Method O2 Flow Rate 04/02/22 10:01 110/47 L 04/02/22 10:01 72 16 91 04/02/22 10:00 83 14 93 04/02/22 09:32 77 20 85 L 04/02/22 09:32 102/50 L 04/02/22 09:30 81 15 90 04/02/22 09:01 82 15 95 04/02/22 09:01 105/58 L 04/02/22 09:00 86 16 95 04/02/22 08:32 75 17 96 04/02/22 08:32 108/49 L 04/02/22 08:30 85 20 100 04/02/22 08:01 108/55 L 04/02/22 08:01 82 14 90 04/02/22 08:00 77 15 87 L 04/02/22 07:31 106/49 L 04/02/22 07:31 95 H 27 H 98 04/02/22 07:30 88 19 96 04/02/22 07:20 79/49 L 04/02/22 07:20 84 20 98 04/02/22 07:10 117/56 L 04/02/22 07:10 92 H 21 95 04/02/22 07:00 90 14 96 04/02/22 07:00 118/49 L 04/02/22 10:14 Nasal Cannula 04/02/22 10:02 84 L Nasal Cannula 2 04/02/22 08:00 97 Nasal Cannula 4 04/02/22 08:00 Nasal Cannula 4 04/02/22 08:00 36.9 C 20 94 Nasal Cannula 4 04/02/22 04:00 93 H 14 97 04/02/22 03:30 86 17 97 04/02/22 03:19 120/80 04/02/22 03:19 95 H 18 94 04/02/22 03:10 71 15 96 04/02/22 03:10 115/49 L 04/02/22 03:00 69 16 96 04/02/22 03:00 112/40 L 04/02/22 02:50 70 12 96 04/02/22 02:50 118/38 L 04/02/22 02:39 112/48 L 04/02/22 02:39 69 15 93 04/02/22 02:30 69 17 93 04/02/22 02:30 113/45 L 04/02/22 02:20 72 19 91 04/02/22 02:20 111/42 L 04/02/22 02:09 111/38 L 04/02/22 02:09 68 17 93 04/02/22 02:00 68 17 94 04/02/22 02:00 98/44 L 04/02/22 01:40 120/52 L 04/02/22 01:40 66 23 79 L 04/02/22 01:30 67 29 H 04/02/22 01:30 139/43 L 04/02/22 01:20 65 28 H 04/02/22 01:20 109/55 L 04/02/22 01:15 66 32 H 04/02/22 00:45 63 21 99 04/02/22 00:30 63 20 77 L 04/02/22 00:15 59 L 19 100 04/01/22 23:45 58 L 21 98 04/02/22 01:00 64 19 100 04/02/22 00:59 121/42 L 04/02/22 00:59 64 20 100 04/02/22 00:49 123/41 L 04/02/22 00:49 63 22 99 04/02/22 00:40 114/38 L 04/02/22 00:40 62 18 100 04/02/22 00:10 59 L 20 99 04/02/22 00:10 118/35 L 04/02/22 00:00 58 L 20 100 04/02/22 00:00 110/42 L 04/01/22 23:50 115/39 L 04/01/22 23:50 58 L 21 100 04/01/22 23:40 114/55 L 04/01/22 23:40 57 L 19 04/01/22 23:30 57 L 18 04/01/22 23:30 116/39 L 04/01/22 23:21 56 L 20 04/01/22 23:21 96/36 L 04/01/22 23:00 60 33 H Laboratory Results Laboratory Results - last 48 hr 03/31/22 03/31/22 04/01/22 17:12 20:26 08:13 WBC RBC Hgb Hct MCV MCH MCHC RDW Std Deviation RDW Coeff of Talia Plt Count MPV Immature Gran % (Auto) Neut % (Auto) Lymph % (Auto) [place] % (Auto) Eos % (Auto) Baso % (Auto) Reticulocyte % (Auto) Neut # (Auto) Lymph # (Auto) [place] # (Auto) Eos # (Auto) Baso # (Auto) Reticulocyte # Immature Gran # (Auto) Absolute Nucleated RBC Nucleated RBC % (auto) Polychromasia Poikilocytosis Anisocytosis Macrocytosis Tear Drop Cells Ovalocytes PT INR APTT PTT Ratio Fibrinogen D-Dimer Sodium Potassium Chloride Carbon Dioxide Anion Gap BUN Creatinine Est Cr Clr Drug Dosing Est GFR ( Amer) Est GFR (Non-Af Amer) BUN/Creatinine Ratio Glucose POC Glucose 178 H 168 H 61 L* Lactate Calcium Ionized Calcium Magnesium Total Bilirubin AST ALT Alkaline Phosphatase Total Creatine Kinase Troponin I High Sens Total Protein Albumin Globulin Albumin/Globulin Ratio 04/01/22 04/01/22 04/01/22 08:13 08:35 11:42 WBC RBC Hgb Hct MCV MCH MCHC RDW Std Deviation RDW Coeff of Talia Plt Count MPV Immature Gran % (Auto) Neut % (Auto) Lymph % (Auto) [place] % (Auto) Eos % (Auto) Baso % (Auto) Reticulocyte % (Auto) Neut # (Auto) Lymph # (Auto) [place] # (Auto) Eos # (Auto) Baso # (Auto) Reticulocyte # Immature Gran # (Auto) Absolute Nucleated RBC Nucleated RBC % (auto) Polychromasia Poikilocytosis Anisocytosis Macrocytosis Tear Drop Cells Ovalocytes PT INR APTT PTT Ratio Fibrinogen D-Dimer Sodium Potassium Chloride Carbon Dioxide Anion Gap BUN Creatinine Est Cr Clr Drug Dosing Est GFR ( Amer) Est GFR (Non-Af Amer) BUN/Creatinine Ratio Glucose POC Glucose 66 L* 71 Lactate Calcium Ionized Calcium Magnesium Total Bilirubin AST ALT Alkaline Phosphatase Total Creatine Kinase 31 Troponin I High Sens Total Protein Albumin Globulin Albumin/Globulin Ratio 04/01/22 04/01/22 04/01/22 12:08 16:20 16:20 WBC 8.19 RBC 2.04 L Hgb 7.4 L Hct 24.4 L MCV 119.6 H MCH 36.3 H MCHC 30.3 L RDW Std Deviation 96.7 H RDW Coeff of Talia 22.3 H Plt Count 197 MPV 12.9 H Immature Gran % (Auto) 1.5 Neut % (Auto) 77.0 Lymph % (Auto) 9.2 [place] % (Auto) 9.6 Eos % (Auto) 2.3 Baso % (Auto) 0.4 Reticulocyte % (Auto) Neut # (Auto) 6.31 Lymph # (Auto) 0.75 L [place] # (Auto) 0.79 Eos # (Auto) 0.19 Baso # (Auto) 0.03 Reticulocyte # Immature Gran # (Auto) 0.12 H Absolute Nucleated RBC 0.09 H Nucleated RBC % (auto) 1.1 Polychromasia 1+ Poikilocytosis Present Anisocytosis Macrocytosis Tear Drop Cells 1+ Ovalocytes 2+ PT INR APTT PTT Ratio Fibrinogen D-Dimer Sodium 132 L Potassium 7.5 H* D Chloride 95 L Carbon Dioxide 23 Anion Gap 14 H BUN 61 H Creatinine 2.67 H D Est Cr Clr Drug Dosing 11.5 Est GFR ( Amer) 18.1 Est GFR (Non-Af Amer) 15.7 BUN/Creatinine Ratio 22.8 H Glucose 39 L* POC Glucose 137 H Lactate Calcium 8.8 Ionized Calcium Magnesium 2.8 H Total Bilirubin 3.9 H AST 31 ALT 23 Alkaline Phosphatase 266 H Total Creatine Kinase Troponin I High Sens 21.8 H Total Protein 6.9 Albumin 3.5 Globulin 3.4 Albumin/Globulin Ratio 1.0 04/01/22 04/01/22 04/01/22 16:20 17:24 17:35 WBC RBC Hgb Hct MCV MCH MCHC RDW Std Deviation RDW Coeff of Talia Plt Count MPV Immature Gran % (Auto) Neut % (Auto) Lymph % (Auto) [place] % (Auto) Eos % (Auto) Baso % (Auto) Reticulocyte % (Auto) Neut # (Auto) Lymph # (Auto) [place] # (Auto) Eos # (Auto) Baso # (Auto) Reticulocyte # Immature Gran # (Auto) Absolute Nucleated RBC Nucleated RBC % (auto) Polychromasia Poikilocytosis Anisocytosis Macrocytosis Tear Drop Cells Ovalocytes PT INR APTT PTT Ratio Fibrinogen D-Dimer Sodium Potassium Chloride Carbon Dioxide Anion Gap BUN Creatinine Est Cr Clr Drug Dosing Est GFR ( Amer) Est GFR (Non-Af Amer) BUN/Creatinine Ratio Glucose POC Glucose 23 L* 180 H Lactate 7.6 H* Calcium Ionized Calcium Magnesium Total Bilirubin AST ALT Alkaline Phosphatase Total Creatine Kinase Troponin I High Sens Total Protein Albumin Globulin Albumin/Globulin Ratio 04/01/22 04/01/22 04/01/22 18:05 18:08 18:08 WBC RBC Hgb Hct MCV MCH MCHC RDW Std Deviation RDW Coeff of Talia Plt Count MPV Immature Gran % (Auto) Neut % (Auto) Lymph % (Auto) [place] % (Auto) Eos % (Auto) Baso % (Auto) Reticulocyte % (Auto) Neut # (Auto) Lymph # (Auto) [place] # (Auto) Eos # (Auto) Baso # (Auto) Reticulocyte # Immature Gran # (Auto) Absolute Nucleated RBC Nucleated RBC % (auto) Polychromasia Poikilocytosis Anisocytosis Macrocytosis Tear Drop Cells Ovalocytes PT 15.8 H INR 1.5 H APTT 30.5 PTT Ratio 1.1 Fibrinogen 499 H D-Dimer 730 H* Sodium 140 Potassium 7.1 H* Chloride 95 L Carbon Dioxide 30 Anion Gap 15 H BUN 59 H Creatinine 2.44 H Est Cr Clr Drug Dosing 12.6 Est GFR ( Amer) 20.2 Est GFR (Non-Af Amer) 17.5 BUN/Creatinine Ratio 24.2 H Glucose 301 H* POC Glucose Lactate 12.9 H* Calcium 12.2 H* D Ionized Calcium Magnesium Total Bilirubin AST ALT Alkaline Phosphatase Total Creatine Kinase Troponin I High Sens Total Protein Albumin Globulin Albumin/Globulin Ratio 1204/01/22 04/01/22 20:00 20:52 20:53 WBC RBC Hgb Hct MCV MCH MCHC RDW Std Deviation RDW Coeff of Talia Plt Count MPV Immature Gran % (Auto) Neut % (Auto) Lymph % (Auto) [place] % (Auto) Eos % (Auto) Baso % (Auto) Reticulocyte % (Auto) Neut # (Auto) Lymph # (Auto) [place] # (Auto) Eos # (Auto) Baso # (Auto) Reticulocyte # Immature Gran # (Auto) Absolute Nucleated RBC Nucleated RBC % (auto) Polychromasia Poikilocytosis Anisocytosis Macrocytosis Tear Drop Cells Ovalocytes PT INR APTT PTT Ratio Fibrinogen D-Dimer Sodium Cancelled Potassium Cancelled Chloride Cancelled Carbon Dioxide Cancelled Anion Gap Cancelled BUN Cancelled Creatinine Cancelled Est Cr Clr Drug Dosing Cancelled Est GFR ( Amer) Cancelled Est GFR (Non-Af Amer) Cancelled BUN/Creatinine Ratio Cancelled Glucose Cancelled POC Glucose 85 65 L* Lactate Calcium Cancelled Ionized Calcium Magnesium Total Bilirubin AST ALT Alkaline Phosphatase Total Creatine Kinase Troponin I High Sens Total Protein Albumin Globulin Albumin/Globulin Ratio 04/01/22 04/01/22 04/01/22 21:09 21:29 21:32 WBC RBC Hgb Hct MCV MCH MCHC RDW Std Deviation RDW Coeff of Talia Plt Count MPV Immature Gran % (Auto) Neut % (Auto) Lymph % (Auto) [place] % (Auto) Eos % (Auto) Baso % (Auto) Reticulocyte % (Auto) Neut # (Auto) Lymph # (Auto) [place] # (Auto) Eos # (Auto) Baso # (Auto) Reticulocyte # Immature Gran # (Auto) Absolute Nucleated RBC Nucleated RBC % (auto) Polychromasia Poikilocytosis Anisocytosis Macrocytosis Tear Drop Cells Ovalocytes PT INR APTT PTT Ratio Fibrinogen D-Dimer Sodium Potassium Chloride Carbon Dioxide Anion Gap BUN Creatinine Est Cr Clr Drug Dosing Est GFR ( Amer) Est GFR (Non-Af Amer) BUN/Creatinine Ratio Glucose POC Glucose 172 H 151 H Lactate 12.1 H* Calcium Ionized Calcium Magnesium Total Bilirubin AST ALT Alkaline Phosphatase Total Creatine Kinase Troponin I High Sens Total Protein Albumin Globulin Albumin/Globulin Ratio 04/01/22 04/02/22 04/02/22 23:04 05:14 05:14 WBC 10.16 RBC 1.77 L Hgb 6.5 L* Hct 20.4 L* MCV 115.3 H MCH 36.7 H MCHC 31.9 L RDW Std Deviation 91.8 H RDW Coeff of Talia 22.5 H Plt Count 146 MPV Immature Gran % (Auto) 2.3 Neut % (Auto) 85.3 Lymph % (Auto) 4.8 [place] % (Auto) 7.3 Eos % (Auto) 0.1 Baso % (Auto) 0.2 Reticulocyte % (Auto) Neut # (Auto) 8.67 H Lymph # (Auto) 0.49 L [place] # (Auto) 0.74 Eos # (Auto) 0.01 Baso # (Auto) 0.02 Reticulocyte # Immature Gran # (Auto) 0.23 H Absolute Nucleated RBC 0.07 H Nucleated RBC % (auto) 0.7 Polychromasia 2+ Poikilocytosis Anisocytosis Present Macrocytosis Present Tear Drop Cells 1+ Ovalocytes 2+ PT INR APTT PTT Ratio Fibrinogen D-Dimer Sodium 141 142 Potassium 6.4 H* 5.1 D Chloride 95 L 93 L Carbon Dioxide 30 41 H* Anion Gap 16 H 8 BUN 61 H 66 H Creatinine 2.70 H 2.78 H Est Cr Clr Drug Dosing 11.4 11.0 Est GFR ( Amer) 17.9 17.3 Est GFR (Non-Af Amer) 15.4 14.9 BUN/Creatinine Ratio 22.6 H 23.7 H Glucose 113 H 196 H POC Glucose Lactate Calcium 10.3 H 9.1 Ionized Calcium Magnesium 2.5 H Total Bilirubin AST ALT Alkaline Phosphatase Total Creatine Kinase Troponin I High Sens Total Protein Albumin Globulin Albumin/Globulin Ratio 04/02/22 04/02/22 04/02/22 05:14 09:54 09:58 WBC RBC Hgb Hct MCV MCH MCHC RDW Std Deviation RDW Coeff of Talia Plt Count MPV Immature Gran % (Auto) Neut % (Auto) Lymph % (Auto) [place] % (Auto) Eos % (Auto) Baso % (Auto) Reticulocyte % (Auto) 5.7 H Neut # (Auto) Lymph # (Auto) [place] # (Auto) Eos # (Auto) Baso # (Auto) Reticulocyte # 0.10 Immature Gran # (Auto) Absolute Nucleated RBC Nucleated RBC % (auto) Polychromasia Poikilocytosis Anisocytosis Macrocytosis Tear Drop Cells Ovalocytes PT INR APTT PTT Ratio Fibrinogen D-Dimer Sodium Potassium Chloride Carbon Dioxide Anion Gap BUN Creatinine Est Cr Clr Drug Dosing Est GFR ( Amer) Est GFR (Non-Af Amer) BUN/Creatinine Ratio Glucose POC Glucose Lactate Cancelled Calcium Ionized Calcium 1.13 Magnesium Total Bilirubin AST ALT Alkaline Phosphatase Total Creatine Kinase Troponin I High Sens Total Protein Albumin Globulin Albumin/Globulin Ratio 04/02/22 04/02/22 04/02/22 11:26 11:57 14:12 WBC RBC Hgb Hct MCV MCH MCHC RDW Std Deviation RDW Coeff of Talia Plt Count MPV Immature Gran % (Auto) Neut % (Auto) Lymph % (Auto) [place] % (Auto) Eos % (Auto) Baso % (Auto) Reticulocyte % (Auto) Neut # (Auto) Lymph # (Auto) [place] # (Auto) Eos # (Auto) Baso # (Auto) Reticulocyte # Immature Gran # (Auto) Absolute Nucleated RBC Nucleated RBC % (auto) Polychromasia Poikilocytosis Anisocytosis Macrocytosis Tear Drop Cells Ovalocytes PT INR APTT PTT Ratio Fibrinogen D-Dimer Sodium Potassium Chloride Carbon Dioxide Anion Gap BUN Creatinine Est Cr Clr Drug Dosing Est GFR ( Amer) Est GFR (Non-Af Amer) BUN/Creatinine Ratio Glucose POC Glucose 129 H Lactate 2.5 H* 1.7 Calcium Ionized Calcium Magnesium Total Bilirubin AST ALT Alkaline Phosphatase Total Creatine Kinase Troponin I High Sens Total Protein Albumin Globulin Albumin/Globulin Ratio Diagnostic Findings Abdomen/Pelvis CT 04/01/22 15:50 CT abd pelvis wo con CLINICAL HISTORY: severe mid abdominal pain TECHNIQUE: Helical axial images of the abdomen and pelvis were obtained. Automated dose lowering techniques and/or adjustment according to patient size were utilized for this exam. This exam was performed without intravenous contrast. CT DOSE: 292.64 mGy.cm COMPARISON: Comparison is made to CT abdomen pelvis 01/03/2021 FINDINGS: Lower chest: Moderate right and small left pleural effusions are seen. Scattered groundglass opacities are seen. Liver: Unremarkable. No focal lesions are seen. Gallbladder and biliary tree: Patient is status post cholecystectomy. No intra- or extrahepatic biliary ductal dilation. Pancreas: Unremarkable, no focal lesions. Spleen: Unremarkable. Adrenals: Unremarkable. Kidneys and ureters: The left kidney is atrophic. Bladder: Unremarkable. Reproductive organs: Patient is status post hysterectomy. Bowel: There is a moderate to large stool burden. The appendix is normal. Lymph nodes Retroperitoneal: Unremarkable. Pelvic: Unremarkable. Mesenteric: Unremarkable. Peritoneum: Normal. Vessels: Atherosclerotic calcifications are seen. Abdominal wall: Unremarkable. A battery-powered neurostimulator is noted. Bones: Mild degenerative changes are seen. IMPRESSION: No acute abnormalities to explain severe mid abdominal pain. The appendix is normal. Microbiology 03/21/22 15:20 Blood Aerobic Blood Culture - Final No growth in Aerobic bottle after 5 days. 03/21/22 15:20 Blood Anaerobic Blood Culture - Final 03/21/22 15:16 Blood Aerobic Blood Culture - Final No growth in Aerobic bottle after 5 days. 03/21/22 15:16 Blood Anaerobic Blood Culture - Final 03/17/22 14:57 Blood Aerobic Blood Culture - Final Staph aureus MRSA 03/17/22 14:57 Blood Anaerobic Blood Culture - Final No growth in Anaerobic bottle after 5 days. 03/17/22 14:59 Blood Aerobic Blood Culture - Final No growth in Aerobic bottle after 5 days. 03/17/22 14:59 Blood Anaerobic Blood Culture - Final Medications Administered Active Medications Generic Name Dose Route Start Last Admin Trade Name Freq PRN Reason Stop Dose Admin Acetaminophen 650 mg 03/17/22 19:19 04/01/22 11:14 Acetaminophen 325 Mg Tab PO 04/16/22 19:18 650 mg Q4H PRN Administration Pain (1,2,3) Or Fever Albuterol 3 ml 03/18/22 09:24 04/01/22 07:55 Albut/Ipratrop 3mg/0.5mg Neb 3 Ml Vial NEB 04/16/22 18:59 3 ml Q4R PRN Administration Shortness Of Breath Or Wheezing Protocol Albuterol 2 puffs 03/28/22 16:41 03/29/22 17:18 Albuterol Hfa 8 Gm Inhaler INH 04/24/22 19:35 2 puffs BIDR PRN Administration Wheezing Apixaban 2.5 mg 03/17/22 21:00 04/02/22 09:09 Apixaban 2.5 Mg Tab PO 04/16/22 20:59 2.5 mg BID RODDY Administration Clopidogrel Bisulfate 75 mg 03/18/22 09:00 04/02/22 09:09 Clopidogrel Bisulfate 75 Mg Tab PO 04/17/22 08:59 75 mg QAM RODDY Administration Duloxetine HCl 60 mg 03/18/22 09:00 04/02/22 09:09 Duloxetine Hcl 60 Mg Cap PO 04/17/22 08:59 60 mg QAM RODDY Administration Duloxetine HCl 30 mg 03/18/22 09:00 04/02/22 09:09 Duloxetine Hcl 30 Mg Cap PO 04/17/22 08:59 30 mg QAM RODDY Administration Heparin Sodium (Beef Lung) 5 ml 03/27/22 02:43 03/28/22 13:03 Heparin 10 Unit/Ml 5 Ml Flush FLUSH 04/26/22 02:42 5 ml PRN PRN Administration Flush Daptomycin 450 mg/ Syringe 9 mls @ 4.5 mls/min 03/28/22 12:00 04/01/22 13:22 IV 04/11/22 11:59 4.5 mls/min Q48H RODDY Administration Protocol Pantoprazole Sodium 40 mg/ 10 mls @ 5 mls/min 04/02/22 00:30 04/02/22 09:09 Syringe IV 05/02/22 00:29 5 mls/min BID RODDY Administration Parenteral Electrolytes 1,000 mls @ 90 mls/hr 04/02/22 06:45 04/02/22 06:53 Normosol-R IV 05/02/22 06:44 90 mls/hr .Q11H7M RODDY Administration Insulin Aspart 0 units 04/01/22 11:30 04/02/22 14:29 Insulin Aspart Per Unit SC 05/01/22 11:29 Not Given ACHS RODDY Levothyroxine Sodium 50 mcg 03/18/22 06:30 04/02/22 05:58 Levothyroxine Sodium 50 Mcg Tablet PO 04/17/22 06:29 50 mcg DAILYBB RODDY Administration Multi-Ingredient Cream 1 appln 03/20/22 10:14 04/01/22 11:15 Eucerin Cr 120 Gm Jar EXT 04/19/22 10:13 1 appln [id number] PRN Administration Itching Nystatin 1 appln 03/26/22 21:00 04/02/22 10:18 Nystatin Powder 15gm Btl EXT 04/25/22 20:59 1 appln BID RODDY Administration Ondansetron HCl 4 mg 04/01/22 11:46 04/01/22 12:28 Ondansetron Inj 2 Mg/Ml 2 Ml Vial IV 05/01/22 11:45 4 mg Q6H PRN Administration Nausea And Vomiting Pantoprazole Sodium 40 mg 03/18/22 09:00 04/01/22 08:49 Pantoprazole 40 Mg Tab PO 04/17/22 08:59 40 mg QAM RODDY Administration Polyethylene Glycol 8.5 gm 03/17/22 19:19 03/25/22 07:40 Polyethylene (Miralax) 17 Gm Pack PO 04/16/22 19:18 8.5 gm DAILY PRN Administration Constipation Polysaccharide Iron Complex 150 mg 03/18/22 09:00 04/02/22 10:17 Iron Polysaccharide Complex 150 Mg Capsule PO 04/17/22 08:59 Not Given QAM RODDY (1) CKD (chronic kidney disease) Chronic kidney disease stage: unspecified stage Qualified Code(s): N18.9 - Chronic kidney disease, unspecified
[2022-04-02] MEDS ORDERED: LANTUS PER UNIT CHARGE SQ SCH (12:00)
--- NOTE | 2022-04-02 13:15 | Palliative Care Consultation ---
Date of Consultation April 02, 2022 Assessment & Plan (1) Palliative care encounter: 87yo female with mRSA bacteremia with hx of CAD, long time DM/hx non compliance with diet/meds; diastolic heart failure (Normal LV function, no wall motion abnormalities, EF 60-65%, mod/severe TR, mild/mod MR. RVSP > 60 mmHg as of 02/2022), A fib (on Eliquis), hypothyroidism, asthma, COPD, diabetes, CAD, Cirrhosis with severe skin itching, GERD, GI bleed, anemia, BETHANY, depression, anxiety, and BL venous insufficiency. (2) Advanced care planning/counseling discussion: 40min face to face discussion for ACp and GOC: I met with pt, her family (dtrs x2, dtr in law x1, son in law x1, grandson x1 and son Ar/DEAN via FaceTime) at her bedside. She is clear about her goals: she wants to be comfortable. She wants to eat/drink as she pleases. She knows her time is short. She wants to be closer to home. Ar states he has been speaking with mgt at her assisted living and they advised they would take her back with hospice, they have done this before and they need our CM to contact them. Ar and his sisters also express concern that pt needed Narcan yesterday and would like more discussion about precipitating reason(s). I advised I would pass that concern along to ICU team for more evaluation. Ar and family share that pt has only asked for comfort, they feel it is time to honor this request. Ar and sisters state "We do not want a repeat of the past 24 hr with any more ICU admissions. We want her to have more pleasure and comfort in her life, whatever time remains, now." We spoke about moving to comfort care with transition to [facility] with hospice. We also spoke about home hospice at daughter in law's request, she shares that she cared for her at home with hospice and that family should consider this option. Ultimately family did not feel they would be able to accommodate home hospice nor can they agree about whose home pt would go to for this as they do not live near each other. They would like hospice added, but need this to be at her assisted living. Dtr in law then said she felt a penitentiary might be better in her opinion because the [facility] will require family provide care as they would do in home hospice. I did advised there may be additional costs OOP with SNF hospice option because of insurance limitations but we could explore this with CM if they wanted. After more discussion they decided on original plan for hospice at [facility]. This was then communicated to primary team and CM. Family and patient would like transition to comfort care LASHON, allow pt PO as tolerated NO RESTRICTION for comfort and pleasure. No more labs, imaging, etc. No escalation of care. Remove monitors/liberate her. I would suggest BID to TID BSG monitor with sliding scale insulin per protocol, patient's PO intake will continue to decline as she worsens. I have provided education about the hospice benefit. Hospice is an interdisciplinary program offered by nurses, nurses aides, social workers, chaplains and a director medical for patients with a terminal condition and a life expectancy of less than 6 months. The goal would be to improve the quality of life of the patient in their home setting (home, penitentiary, inpatient hospice setting) by providing symptoms management, psychosocial and spiritual support. However, they cannot offer 24 hours care and if the family is unable to provide that care, they will have to consider personal care with out of pocket cost vs. penitentiary placement. Patient and family are very aware of her multiple medical issues, their chronic progression and continued decline. They acknowledge nothing is curable/reversible as far as her chronic issues. They also note she does not want to live or adhere to any restrictions in her life, this is a los to her autonomy and self determination. She wants to live however she chooses and without input or control from others. (3) MRSA bacteremia: (4) Acute respiratory failure: (5) Weakness generalized: Plan Discussions as noted above for GOC and ACP x 40min Comfort care, orders written DC with hospice to [facility], CM and ICU team aware. I have updated ICU attending, Nursing, CM. We will continue to follow this pt, thank you for this consult. Angelia Grier DNP Clinical Director, Palliative Medicine History of Present Illness Reason for Consultation: "outpt symptom treatment plan" Attending Physician: Roz Spicer MD History of Present Illness 87yo female admitted 03/17/22 for SOB per ED note: "She was brought in by EMS who initially found her to be hypoxic and in respiratory distress. In the ED the patient was found to be afebrile, hemodynamically stable, stable on CPAP but still tachypneic. Labs were remarkable for a WBC WNL, stable Hgb at 8.7 (was 8.7 as of 03/13), stable platelets, stable renal function with potassium of 3.4, calcium of 8.2, stable total bili of 2.8, ATS of 28, ALT of 22, improving alk phos of 222 (was 251 as of 03/13/22), initial high sensitivity trop of 30.7, BNP of 1299 (was 1303 as of 03/03/22), procal of 0.09, and negative covid, Influenza, and RSV negative. Chest xray shows "Mild central pulmonary vascular congestion without overt edema". Prior to admission the patient was given DueNebs, 10 mg IV dexamet hasone, and 50 mcg of fentanyl. Per the ED staff, she was transitioned to Bipap on arrival to help with her work of breathing. Per chart review, the patient was recently admitted to [facility] from 03/02/22- 03/05/22 for Acute on chronic CHF exacerbation and Cirrhosis noted on outpatient workup. For her CHF exacerbation the patient was started on IV bumex at 2mg BID with transition back to PO regimen of 2 mg BID on discharge. Her dry weight was listed as 144-145. Per the discharge summary, the patient was found to have cirrhosis on outpatient workup and had been having itching with many scabs. At that time the cause of the cirrhosis was unknown and outpatient workup was recommended." This admission complicated by MRSA bacteremia for which she has been on daptomycin; nidus was not fully identified - ECHO 03/17 with EF 60-65% no evidence of valve vegetation. She has been hospitalized 3 times in 6 weeks, increasing in frequency. Patient was recently placed in a personal halfway for several reasons but largely inability to be safe and complete activities of daily living. PMH: CAD, diastolic heart failure (Normal LV function, no wall motion abnormalities, EF 60-65%, mod/severe TR, mild/mod MR. RVSP > 60 mmHg as of 02/2022), A. fib (on Eliquis), hypothyroidism, asthma, COPD, diabetes, CAD, Cirrhosis with severe skin itching, GERD, GI bleed, anemia, BETHANY, depression, anxiety, and BL venous insufficiency. Today's ICU note states: "Yesterday's transfer to the ICU the patient appeared to be in multisystem organ dysfunction and I am very surprised she has re markably improved in the last 12 hours. Mesenteric ischemia was in the differential and that does not appear to be the case, the patient is hungry and desires to eat Jell-O. Sepsis is in the differential but I do not feel that it is likely, acute blood loss anemia is also in the differential but there is no overt signs of ongoing blood loss and I think her decrease in her H&H is secondary to volume resuscitation. Considered giving packed red blood cells however she is asymptomatic at this time, as there is agreement and moving towards limiting interventions I will liberalize the patient's diet and allow her to eat for comfort. Given the frequent hospitalizations and increased duration, and several chronic medical conditions feel that the patient is nearing the end of life and certainly her life expectancy would be 6 months or less. In discussion with the patient's daughter there focuses transitioning to keeping the patient comfortable. I am not sure if we would able to improve her baseline physical status to give her significant functional improvement. Patient did not want to utilize pressors or aggressive measures yesterday for continued resuscitative efforts so I do not feel that critical care has significant modalities that would align with the patient's wishes. Patient may benefit from palliative care consult for symptom management of her medical conditions. I discussed this with the hospitalist service who will be continuing to follow the patient." Discussions with pt family have consistently indicated a desire for focus on comfort and QOL without aggressive or invasive measures. Pt is seen bedside with her dtrs x2, son in lwa x1, dtr in law x1, grandson x1 and her son Ar/PO[facility] by [facility]. Patient and family express wish to be transitioned to comfort. Patient wants "less stuff" and "more quality, I want to enjoy my food and not be restricted." Family in agreement and state they have been in touch with her assisted living center and were advised by [facility] that they can take pt back with hospice. Pt states she is hungry and thirsty. She wants to eat what she wants. She has an intermittent cough which makes her dyspneic but she does not have acute pain. She has no n/v/d/c Allergies Allergy/AdvReac Type Severity Reaction Status Date / Time shellfish derived Allergy Severe ANAPHYLAXIS Verified 12/08/22 11:20 iodine Allergy Intermediate ANAPHYLAXIS Verified 03/13/22 11:20 lisinopril Allergy Unknown Unknown Verified 03/13/22 11:20 oxybutynin [From Ditropan] Allergy Unknown Unknown Verified 03/13/22 11:20 sertraline [From Zoloft] Allergy Unknown Unknown Verified 03/13/22 11:20 paroxetine AdvReac Mild GI UPSET Verified 03/13/22 11:20 Home Medications Medication Instructions Recorded Confirmed Type cholecalciferol (vitamin D3) 25 2,000 unit PO QAM 05/11/20 03/17/22 History mcg (1,000 unit) tablet (Vitamin D3) polyethylene glycol 3350 17 8.5 g PO DAILY PRN Constipation 01/28/21 03/17/22 History gram/dose oral powder (Miralax) vit C 226 mg-vit E 90 mg-copper 1 cap PO BID 02/01/21 03/17/22 History 0.8 mg-zinc oxide-lutein 5 mg capsule (PreserVision Lutein) allopurinol 100 mg tablet 300 mg PO QAM #90 tabs 12/16/21 03/17/22 Rx (Zyloprim) apixaban 2.5 mg tablet (Eliquis) 2.5 mg PO BID #180 tabs 12/16/21 03/17/22 Rx bumetanide 2 mg tablet 2 mg PO BID #60 tabs 12/16/21 03/17/22 Rx clopidogrel 75 mg tablet (Plavix) 75 mg PO QAM #90 tabs 12/16/21 03/17/22 Rx digoxin 125 mcg (0.125 mg) tablet 125 mcg PO Q2D #15 tabs 12/16/21 03/17/22 Rx (Digitek) duloxetine 30 mg capsule,delayed 30 mg PO QAM #90 caps 12/16/21 03/17/22 Rx release (Cymbalta) duloxetine 60 mg capsule,delayed 60 mg PO QAM #90 caps 12/16/21 03/17/22 Rx release (Cymbalta) isosorbide mononitrate 30 mg 30 mg PO QAM #90 tabs 12/16/21 03/17/22 Rx tablet,extended release 24 hr levothyroxine 50 mcg tablet 50 mcg PO DAILYBB #30 tabs 12/16/21 03/17/22 Rx (Synthroid) magnesium oxide 400 mg PO BID #180 tabs 12/16/21 03/17/22 Rx metoprolol succinate 50 mg 150 mg PO BID #540 tabs 12/16/21 03/17/22 Rx tablet,extended release 24 hr (Toprol XL) mirtazapine 15 mg tablet (Remeron) 15 mg PO HS #30 tabs 12/16/21 03/17/22 Rx pantoprazole 40 mg tablet,delayed 40 mg PO QAM #90 tabs 12/16/21 03/17/22 Rx release (Protonix) polysaccharide iron complex 150 mg 150 mg PO QAM #90 caps 12/16/21 03/17/22 Rx iron capsule (Ferrex) potassium chloride 20 mEq 10 meq PO BID #180 tabs 12/16/21 03/17/22 Rx tablet,extended release (K-Tab) insulin glargine 100 unit/mL (3 28 unit (0.28 mL) subcut HS #15 mL 12/18/21 03/17/22 Rx mL) subcutaneous pen (Lantus Solostar U-100 Insulin) glucagon 1 mg solution for 1 mg subcut Q20M PRN hypoglycemia 01/02/22 03/17/22 Rx injection (Glucagon Emergency Kit) #1 ea nitroglycerin 0.3 mg sublingual 0.3 mg sublingual Q5M PRN Chest 01/17/22 03/17/22 History tablet Pain nystatin 100,000 unit/gram topical 1 applic topical TID 2 weeks #30 01/21/22 03/17/22 Rx cream grams insulin aspart U-100 100 unit/mL 7 - 10 unit (0.07 - 0.1 mL) subcut 02/04/22 03/17/22 Rx (3 mL) subcutaneous pen (Novolog TIDM #45 mL Flexpen U-100 Insulin aspart) clobetasol 0.05 % topical cream 1 applic topical BID #30 grams 02/19/22 03/17/22 Rx guaifenesin 600 mg tablet, 600 mg PO BID PRN cough #60 tabs 03/13/22 03/17/22 Rx extended release 12 hr Patient History Medical History (Updated 04/02/22 @ 15:22 by Angelia Grier DNP) Advanced care planning/counseling discussion Anemia Asthma Atrial fibrillation CAD (coronary artery disease) Cerebrovascular disease Chronic diastolic congestive heart failure Chronic kidney disease (CKD) Stage III, baseline Cr 1.3-1.5mg/dL. Complicated with normocytic anemia and secondary hyperparathyroidism. Followed by nephrology. 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 Cannot perform MRI due to bladder implant. Followed by pain management. Epidural steroid injections with improvement of pain. Evaluated by ortho, decided against surgery. Managed with gabapentin 300mg TID + APAP PRN + tapentadol 50mg BID PRN GERD (gastroesophageal reflux disease) GIB (gastrointestinal bleeding) History of gout Managed with allopruinol daily. No recent gouty attacks. Uric acid suppressed 3.4 mg/dl (12/22) Hyperlipidemia Secondary prevention with moderate intensity statin (atorvastatin 20mg daily) Hypertension Hypothyroidism Lichen planus Macular degeneration Mitral regurgitation Neurologic gait dysfunction Obstructive sleep apnea Long standing. Managed with CPAP nightly. CPAP titration polysomnography (07/14). Palliative care encounter Sensorineural hearing loss (SNHL) of both ears Venous insufficiency of both lower extremities Surgical History H/O colonoscopy History of repair of rectocele S/P breast biopsy S/P section S/P cholecystectomy S/P hysterectomy S/P implantation of urinary electronic stimulator device Family History Father , Age 64 No problems noted. Mother , Age 61 No problems noted. Other Coronary heart disease Denies family history of Ovarian cancer Prostate cancer Crohn's disease Breast cancer Lung cancer Colorectal cancer Social History Smoking Status: Never smoker Second Hand Exposure: No; Do You Dip or Chew Tobacco: No; Tobacco Cessation Education Requested by Patient: No Hx Alcohol Use: No Hx Substance Use: No Preferred Language: Martiniquais Communication Ability: Effective Visual Impairment: No Limitations Hearing Ability: Normal Hoop Riveter Required: No Beliefs That Will Affect Care: None marital status: Single Current Living Situation: Long Term Current Living Situation Comment: [facility] current occupational status: retired How many Children do You have: 3 Other Information That Helps Us Care for You: No Feels Safe at Home: Yes Safety Concerns: Feels Safe At This Time Childhood Exposure to Second-Hand Smoke: No Diet Comment: DIABETIC caffeine: No during the past year weight has: remained stable Dental Care, Regularly: No Physical Activity Frequency: 1-2 Times per Week Seatbelt Use: always Sunscreen Use: Yes Assistive Devices: Glasses and Walker Review of Systems Review of Systems: All systems reviewed & are unremarkable except as noted in Subjective Physical Exam Constitutional: + acute distress, + ill appearing and + frail appearing Eyes: PERRL, conjunctivae normal, anicteric sclerae ENMT: Mouth: + muffled voice, + dry oral mucous membranes and + poor dentition Neck: normal visual inspection and trachea midline Respiratory: Auscultation: + diminished lung sounds and + bronchial breath sounds Cardiovascular: Rate/Rhythm: regular rate and regular rhythm Gastrointestinal (Abdomen): Inspection/Auscultation: abdomen normal to inspection and normal bowel sounds Musculoskeletal: generalized weakness Skin: + turgor decreased and + pallor Neurologic: PERRL, EOMI, accommodation nl, no face palsy, no dysarthria awake Psychiatric: Orientation: alert and oriented x 3 Eye Contact: good eye contact Affect: + anxious affect Results & Data ([facility]) Vital Signs (Past 12 Hours) Vital Signs Temp Pulse Resp BP Pulse Ox O2 Del Method O2 Flow Rate 04/02/22 12:02 74 14 94 04/02/22 12:02 91/36 L 04/02/22 12:00 68 17 96 04/02/22 11:30 63 14 100 04/02/22 11:01 99/47 L 04/02/22 11:01 75 19 89 L 04/02/22 11:00 67 29 H 96 04/02/22 10:31 109/60 04/02/22 10:31 77 17 92 04/02/22 10:30 78 23 88 L 04/02/22 12:00 36.4 C L 04/02/22 10:01 110/47 L 04/02/22 10:01 72 16 91 04/02/22 10:00 83 14 93 04/02/22 09:32 77 20 85 L 04/02/22 09:32 102/50 L 04/02/22 09:30 81 15 90 04/02/22 09:01 82 15 95 04/02/22 09:01 105/58 L 04/02/22 09:00 86 16 95 04/02/22 08:32 75 17 96 04/02/22 08:32 108/49 L 04/02/22 08:30 85 20 100 04/02/22 08:01 108/55 L 04/02/22 08:01 82 14 90 04/02/22 08:00 77 15 87 L 04/02/22 07:31 106/49 L 04/02/22 07:31 95 H 27 H 98 04/02/22 07:30 88 19 96 04/02/22 07:20 79/49 L 04/02/22 07:20 84 20 98 04/02/22 07:10 117/56 L 04/02/22 07:10 92 H 21 95 04/02/22 07:00 90 14 96 04/02/22 07:00 118/49 L 04/02/22 10:14 Nasal Cannula 04/02/22 10:02 84 L Nasal Cannula 2 04/02/22 08:00 97 Nasal Cannula 4 04/02/22 08:00 Nasal Cannula 4 04/02/22 08:00 36.9 C 20 94 Nasal Cannula 4 04/02/22 04:00 93 H 14 97 04/02/22 03:30 86 17 97 04/02/22 03:19 120/80 04/02/22 03:19 95 H 18 94 04/02/22 03:10 71 15 96 04/02/22 03:10 115/49 L 04/02/22 03:00 69 16 96 04/02/22 03:00 112/40 L 04/02/22 02:50 70 12 96 04/02/22 02:50 118/38 L 04/02/22 02:39 112/48 L 04/02/22 02:39 69 15 93 04/02/22 02:30 69 17 93 04/02/22 02:30 113/45 L 04/02/22 02:20 72 19 91 04/02/22 02:20 111/42 L 04/02/22 02:09 111/38 L 04/02/22 02:09 68 17 93 04/02/22 02:00 68 17 94 04/02/22 02:00 98/44 L 04/02/22 01:40 120/52 L 04/02/22 01:40 66 23 79 L 04/02/22 01:30 67 29 H 04/02/22 01:30 139/43 L 04/02/22 01:20 65 28 H 04/02/22 01:20 109/55 L 04/02/22 01:15 66 32 H PG Care Time/CCT Total # of Minutes Spent Total Time Spent: 75 Total Time Spent with Patient: Total time spent is greater than 50% in coordination of care (as documented) at patient's floor/unit and/or counseling patient:yes Prolonged Care Time Prolonged Care Time: Yes Advanced Care Planning 37482 Advanced Care Planning 30 [place] [address] Inpt Consult Level 5 Patient Type New History Comprehensive Exam Comprehensive Medical Decision Making Moderate Complexity Diagnoses Palliative care encounter Z51.5 Advanced care planning/counseling discussion Z71.89 MRSA bacteremia R78.81; B95.62 Acute respiratory failure J96.00 Weakness generalized R53.1 Additional Codes Prolonged Care Time - Prolonged Care Time: Yes ([id number]) Advanced Care Planning - 83872 Advanced Care Planning 30 Min: 28426 Advanced Care Planning 30 Min ([id number])
[2022-04-02] MEDS ORDERED: SODIUM BICARB 8.4% INJ 50 MEQ/50 ML SYR IV ONE (14:13)
[2022-04-02] MEDS ORDERED: NALOXONE HCL 0.4 MG/1 ML VIAL/CARP IV ONE (14:13)
[2022-04-02] MEDS ORDERED: SODIUM CHLORIDE 0.9% 10ML FLUSH IV ONE (14:13)
[2022-04-02] MEDS ORDERED: CALCIUM CHLORIDE 10% 10 ML SYR IV ONE (14:13)
[2022-04-02] MEDS ORDERED: DEXTROSE 50% 50 ML SYRINGE IV ONE (14:13)
[2022-04-02] MEDS ORDERED: LORazepam 2 MG/1 ML VIAL IV PRN (14:58)
[2022-04-02] MEDS: GLYCOPYRROLATE 0.2 MG/ML VIAL IV PRN (16:01)
--- NOTE | 2022-04-02 18:12 | Hospitalist Progress Note ---
Date of Service April 02, 2022 Assessment & Plan (1) Hyperkalemia: Plan: With elevated potassium 7.5 with acute kidney injury. Also has been on supplemental potassium 3 times daily this admission. Had atrial fibrillation with bradycardia but no ventricular tachycardia or fibrillation during her episode of unresponsiveness on 04/01 with hypotension and after one dose of dilaudid 0.25mg IV for severe abd pain -Treated with calcium chloride, 4 A of sodium bicarbonate, insulin and D50, IV fluid hydration with normal saline K+ now back to normal, making machine operator stable at 2.7 maintain Dean catheter Consult nephrology appreciated-no desire for HD but not needed now anyway -discontinue sodium bicarbonate drip and Normosol Discontinued oral potassium supplement No further labs as transitioning to SENIOR TREASURY ANALYST (2) Hypotension: Plan: Secondary to possible septic shock versus hemorrhagic shock as hemoglobin trending downward but no evidence of bleeding externally, in stool, or on CT abd/pel No fevers. Could also be side effect of IV Dilaudid albeit [id number] given Narcan With abdominal pain-CT abdomen/pelvis without contrast is negative, but could have mesenteric ischemia, aortic dissection with renal infarct?, GI bleed? All seem to be ruled out at this point and abd pain now reoslved, is hungry -advance diet to regular BPs now stable off all antihypertensives, no further opioids given, and after IVF resuscitation continue to hold all antihypertensives to include metoprolol, Bumex, isosorbide, and amlodipine Family has decided against vasopressors and now transitioning to SENIOR TREASURY ANALYST (3) Anemia: Plan: Macrocytic in the presence of normal B12 and folate as recently as 03/18/22. 1 g drop in the last 4-months Now with another gram drop in abdominal pain as above down to 6.5. CT abdomen/pelvis without blood COuld be from hemodilution ok to continue ELiquis for now until family decides about which meds to stop on SENIOR TREASURY ANALYST no further labs, no transfusions to be given (4) PATY (acute kidney injury): Plan: Acute kidney injury on CKD stage III Creatinine anne to 2.6 with resulting hyperkalemia as above Unclear cause as blood pressures have been normal until they dropped acutely in the afternoon of 04/01 She is making urine-Dean catheter placed CT abdomen/pelvis without obstruction See above regarding abdominal pain now on SENIOR TREASURY ANALYST (5) Abdominal pain: Plan: As above Unclear cause-perhaps mesenteric ischemia? No AAA seen, no colitis seen Now seems improved, hungry advance diet to regular Dilaudid caused excessive sedation perhaps due to poor liver synthetic function. Avoid opioids unless on SENIOR TREASURY ANALYST (as she now is) (6) Lactic acid acidosis: Plan: As above, possible septic shock? Liver dysfunction? Lactate up to 12 and now is normal... now resolved Perhaps could be due to poor liver synthetic function-gave high-dose thiamine 500 Mg IV x1 no further labs to be drawn (7) MRSA bacteremia: Plan: With 1/4 bottles with MRSA on admission Continue daptomycin but plan was to switch back to vancomycin for discharge due to cost at facility, however now with acute kidney injury, will hold off on such appreciate infectious disease recommendations. Follow-up blood cultures are negative. CT scan reveals partial visualization of the bladder stimulator and lead with no evidence of infection. TTE negative for evidence of vegetations. ID Dr Dupont suspects possible skin source because the patient scratches herself continually. Low-dose cyproheptadine ordered for the pruritus has helped according to the patient-placed on hold after episode of hypotension Original plan was to give 4 weeks of daptomycin through April 18, w/ possible extension to 6 weeks.. PICC line has been placed in the left upper extremity. HOWEVER, now transitioning to SENIOR TREASURY ANALYST. Family undecided if they want to complete full course of abx-discussed that her MRSA bacteremia had been treated now for over 2 weeks and despite no LUNA and presence of bladder stimulator device, chances of recurrent bacteremia seem low. She cleared her bacteremia quite quickly and perhaps it may have even been a contaminant. I think if truly going on SENIOR TREASURY ANALYST, continuing IV abx would not be consistent with this. Discussed this with family but will continue IV Dapto for now and they will make final decision tomorrow (8) Hypoxia: Plan: Acute hypoxic respiratory failure has now resolved. Was then stable on room air. Was felt to be COPD exacerbation. now back on O2 after shock continue O2 as needed for comfort nebs prn (9) Chronic kidney disease (CKD): Plan: With acute kidney injury as above (10) Pruritus: Plan: No rash. Pruritus is chronic. Low-dose cyproheptadine started on March 26 has helped with itching according to the patient. She does not have jaundice, and I doubt her pruritus is associated with any underlying chronic liver diseas e. Significant xerosis of the skinEucerin cream and gentle soaps prescribed earlier this admission (11) Elevated troponin: Plan: No evidence of acute coronary syndrome. Telemetry revealed atrial fibrillation with controlled rate. Telemetry was then discontinued but then transferred to the ICU (12) Acute leg pain: Plan: Resolved. Right leg venous Doppler negative for DVT (13) Cirrhosis: Plan: Recently discovered on ultrasound as an outpatient in February No alcohol use, not obese Unclear cause Could be related to ongoing issues as above with lactic acidosis, hypoglycemia (14) Chronic heart failure with preserved ejection fraction (HFpEF): Plan: BNP chronically elevated. This is chronic with no acute exacerbation this admission. Continue current medical management. Bumex 2 mg twice daily with potassium added but now discontinued as above for hyperkalemia and renal failure now on SENIOR TREASURY ANALYST (15) History of gout: Plan: Hold home allopurinol with renal failure (16) Depression with anxiety: Plan: Continue duloxetine at lower dose of 30mg due to PATY -restart Remeron now (17) Cerebrovascular disease: Plan: Continue plavix for now but may dc for SENIOR TREASURY ANALYST (18) Atrial fibrillation: Plan: Rate controlled with current medical management. Continue Eliquis for now Holding home metoprolol for hypotension and bradycardia Hold digoxin for renal failure (19) Obstructive sleep apnea: Plan: dc CPAP on SENIOR TREASURY ANALYST (20) Hypothyroidism: Plan: Continue levothyroxine for now TSH normal recently (21) COPD (chronic obstructive pulmonary disease): Plan: Admitted with acute exacerbation. Now at baseline. Continue current medical management. Use inhaler as needed (22) GERD (gastroesophageal reflux disease): Plan: Continue pantoprazole (23) Diabetes mellitus, type II: Plan: She had developed hypoglycemia earlier this admission. Lantus had been discon tinued but then restarted on , March 26, at a lower dose. Dosage uptitrated March 28, due to developing hyperglycemia Lowered again on the morning of 04/01, however with severe hypoglycemia on the afternoon of 04/01 with a glucose of 23 Hold Lantus and monitor with accuchecks as per family wishes for now but may stop later (24) Hypertension: Plan: Now with hypotension as above Hold metoprolol 150 twice daily home dose. Amlodipine 10 mg at bedtime started here and will now be held Plan DVT prophylaxis-Eliquis Disposition-downgrade to med/surg, on SENIOR TREASURY ANALYST, looking to dc to [facility] discussed care with family extensively Admission and Anticipated Discharge Date Admission Date: March 17, 2022 Subjective Pt in ICU overnight and BPs improved, is awake and talkin but restless at times. Was having a cough and is on O2.Family all at bedside to include son, daughter, son in law, daughter in law. Palliative discussion had with Geothermal Powerplant Mechanic Helper as well as Palliative medicine DIGITAL PROJECT MANAGER earlier and decision made to transition to SENIOR TREASURY ANALYST, however family still undecided about stopping IV abx, Eliquis, Plavix, antidepressant meds etc. Another meeting planned for 1000 tomorrow with Palliative. Pt tells me she feels well, denies abd pain. Has not received any pain meds. She is a bit lethargic. Review of Systems Review of Systems: All systems reviewed & are unremarkable except as noted in HPI & below Physical Exam Constitutional: + ill appearing Eyes: + anicteric sclerae and PERRL ENMT: Mouth: + oral mucosal abnormality (Dry mucous membranes) Neck: trachea midline, no thyromegaly Respiratory: normal respiratory effort, lungs clear to auscultation Cardiovascular: Rate/Rhythm: regular rate, + bradycardic and + irregularly irregular Extremities: + edema (1+ in LEs and arms) Chest (Breasts): Chest: normal inspection of chest Gastrointestinal (Abdomen): Inspection/Auscultation: abdomen normal to inspection and normal bowel sounds; abdomen not distended Percussion/Palpation: abdomen soft; abdomen nontender Musculoskeletal: Extremities: extremities normal to inspection; no cyanosis and no clubbing Skin: no rashes, warm and dry Neurologic: moves all extremities and awake; no focal motor deficits Psychiatric: Orientation: alert, oriented to person and cooperative Results & Data Results & Data ([facility]) Vital Signs (Past 12 Hours) Vital Signs Temp Pulse Resp BP Pulse Ox O2 Del Method O2 Flow Rate 04/02/22 14:32 69 21 99 04/02/22 14:32 104/62 04/02/22 14:30 68 14 100 04/02/22 14:01 107/56 L 04/02/22 14:01 66 15 96 04/02/22 14:00 72 15 96 04/02/22 13:32 102/64 04/02/22 13:32 61 18 99 12/28/22 13:30 70 15 98 04/02/22 13:02 62 16 96 04/02/22 13:02 106/43 L 04/02/22 13:00 77 13 98 04/02/22 12:32 111/83 04/02/22 12:32 73 15 99 04/02/22 12:30 66 15 100 04/02/22 12:02 74 14 94 04/02/22 12:02 91/36 L 04/02/22 12:00 68 17 96 04/02/22 11:30 63 14 100 04/02/22 11:01 99/47 L 04/02/22 11:01 75 19 89 L 04/02/22 11:00 67 29 H 96 04/02/22 10:31 109/60 04/02/22 10:31 77 17 92 04/02/22 10:30 78 23 88 L 04/02/22 12:00 36.4 C L 04/02/22 10:01 110/47 L 04/02/22 10:01 72 16 91 04/02/22 10:00 83 14 93 04/02/22 09:32 77 20 85 L 04/02/22 09:32 102/50 L 04/02/22 09:30 81 15 90 04/02/22 09:01 82 15 95 04/02/22 09:01 105/58 L 04/02/22 09:00 86 16 95 04/02/22 08:32 75 17 96 04/02/22 08:32 108/49 L 04/02/22 08:30 85 20 100 04/02/22 08:01 108/55 L 04/02/22 08:01 82 14 90 04/02/22 08:00 77 15 87 L 04/02/22 07:31 106/49 L 04/02/22 07:31 95 H 27 H 98 04/02/22 07:30 88 19 96 04/02/22 07:20 79/49 L 04/02/22 07:20 84 20 98 04/02/22 07:10 117/56 L 04/02/22 07:10 92 H 21 95 04/02/22 07:00 90 14 96 04/02/22 07:00 118/49 L 04/02/22 10:14 Nasal Cannula 04/02/22 10:02 84 L Nasal Cannula 2 04/02/22 08:00 97 Nasal Cannula 4 04/02/22 08:00 Nasal Cannula 4 04/02/22 08:00 36.9 C 20 94 Nasal Cannula 4 Laboratory Results labs reviewed PG Care Time/CCT Total # of Minutes Spent Total Time Spent with Patient: Total time spent is greater than 50% in coordination of care (as documented) at patient's floor/unit and/or counseling patient: Coding Level of Care Code 51894 Subseq Hosp Care Lvl 3 Diagnoses Hyperkalemia E87.5 Hypotension I95.9 Anemia D64.9 Anemia type: unspecified type PATY (acute kidney injury) N17.9 Abdominal pain R10.9 Lactic acid acidosis E87.20 MRSA bacteremia R78.81; B95.62 Hypoxia R09.02 Chronic kidney disease (CKD) N18.9 Pruritus L29.9 Elevated troponin R77.8 Acute leg pain M79.606 Laterality: unspecified laterality Cirrhosis K74.60 Chronic heart failure with preserved ejection fraction (HFpEF) I50.32 History of gout Z87.39 Depression with anxiety F41.8 Cerebrovascular disease I67.9 Atrial fibrillation I48.91 Atrial fibrillation type: unspecified Obstructive sleep apnea G47.33 Hypothyroidism E03.9 Hypothyroidism type: unspecified COPD (chronic obstructive pulmonary disease) J44.9 GERD (gastroesophageal reflux disease) K21.9 Esophagitis presence: esophagitis presence not specified Diabetes mellitus, type II E11.9 Hypertension I10 (1) Acute leg pain Laterality: unspecified laterality Qualified Code(s): M79.606 - Pain in leg, unspecified (2) Anemia Anemia type: unspecified type Qualified Code(s): D64.9 - Anemia, unspecified (3) Atrial fibrillation Atrial fibrillation type: unspecified Qualified Code(s): I48.91 - Unspecified atrial fibrillation (4) Hypothyroidism Hypothyroidism type: unspecified Qualified Code(s): E03.9 - Hypothyroidism, unspecified (5) GERD (gastroesophageal reflux disease) Esophagitis presence: esophagitis presence not specified Qualified Code(s): K21.9 - Gastro-esophageal reflux disease without esophagitis
[2022-04-02] MEDS ORDERED: GLUCOSE 40% GEL 15 GM TUBE PO PRN (19:18)
[2022-04-02] MEDS ORDERED: GLUCAGON FOR INJ 1 MG VIAL SQ PRN (19:18)
[2022-04-02] MEDS ORDERED: DEXTROSE 50% 50 ML SYRINGE IV PRN (19:18)
[2022-04-02] MEDS ORDERED: CARBOHYDRATES FOR HYPOGLYCEMIA PO PRN (19:18)
[2022-04-02] MEDS ORDERED: GLUCOSE 10 TAB/TUBE PO PRN (19:18)
[2022-04-02] MEDS: DIGOXIN 0.125 MG TAB PO SCH (19:23)
[2022-04-02] MEDS: BUMETANIDE 1 MG TAB PO SCH (19:24)
[2022-04-02] MEDS ORDERED: INSULIN ASPART PER UNIT SC SCH (21:00)
[2022-04-02] MEDS: MIRTAZAPINE TAB 15 MG TAB PO SCH (21:02)
[2022-04-03] MEDS: LEVOTHYROXINE SODIUM 50 MCG TABLET PO SCH (05:57)
[2022-04-03] MEDS: INSULIN ASPART PER UNIT SC SCH (07:20)
--- NOTE | 2022-04-03 09:01 | Nephrology Progress Note ---
Date of Service April 03, 2022 Assessment & Plan (1) PATY (acute kidney injury): (2) Hyperkalemia: (3) Severe tricuspid regurgitation: (4) Frailty syndrome in geriatric patient: Plan EMR reviewed this am. Palliative care has met with family and discussed goals of care. Patient and family understand prognosis and have chosen to transition to comfort measures. No further Nephrology evaluation indicated at this time. Will sign off. Please call if further assistance is needed. Admission and Anticipated Discharge Date Admission Date: March 17, 2022 Coding Level of Care Code 24759 Subseq Hosp Care Lvl 1 Diagnoses PATY (acute kidney injury) N17.9 Hyperkalemia E87.5 Severe tricuspid regurgitation I07.1 Frailty syndrome in geriatric patient R54
[2022-04-03] MEDS: NYSTATIN POWDER 15GM BTL EXT SCH ×2 (09:30→19:35)
[2022-04-03] MEDS: PANTOprazole 40 MG TAB PO SCH (09:30)
[2022-04-03] MEDS: CLOPIDOGREL BISULFATE 75 MG TAB PO SCH (10:15)
[2022-04-03] MEDS: APIXABAN 2.5 MG TAB PO SCH (10:15)
[2022-04-03] MEDS: DULoxetine HCL 30 MG CAP PO SCH (10:29)
--- NOTE | 2022-04-03 11:21 | Palliative Care Progress Note ---
Date of Service April 03, 2022 Assessment & Plan (1) Palliative care encounter: Plan: length d/w pt and family, together wit Zena from [facility] all in agreement for return to [facility] with hospice extended d/w family and zena (via teleconf): Zena has notified Addy from [facility], which is the agency they work with most often. She would like pt to have specialty mattress. We discussed simplified plan of care. pt does not want anymore Abtx or anticoag, which have been stopped. She does not want blood sugar checks or diet limits, we have stopped LA insling but I sggested using FSG as needed if symptomatic with SS insulin for coverage prn - she is ok with this option. (2) Advanced care planning/counseling discussion: Plan: Hospice at [facility] I have provided education about the hospice benefit. Hospice is an interdisciplinary program offered by nurses, nurses aides, social workers, chaplains and a medical instrument cable fabricator for patients with a terminal condition and a life expectancy of less than 6 months. The goal would be to improve the quality of life of the patient in their home setting (home, usp, inpatient hospice setting) by providing symptoms management, psychosocial and spiritual support. However, they cannot offer 24 hours care and if the family is unable to provide that care, they will have to consider personal care with out of pocket cost vs. usp placement. (3) Weakness generalized: (4) MRSA bacteremia: (5) Acute respiratory failure: (6) CKD (chronic kidney disease): Present on Admission?: Yes Plan Use resp failure/progressive COPD + MRSA bacteremia for primary hospice dx secondary dx should be CKD, COPD, generalized weakness, FTT; please note FTT cannot be primary hospice dx. Insulin, anticoag stopped per discussions above Advised fam/pt that our CM will coordinate dc with hospice/refer to hospice/arrange transport home. They are in agreement for [place]. Advised we would ask hospice for foam mattress topper but "specialty bed" as zena outlined is not available through hospice for pt at this time as she does not have a clinical need for same ie no wounds etc. family would like Zena to be called with all dc updates, I have made CM and primary team aware I have updated primary, CM and nursing. continue comfort care hope for dc tomorrow. Angelia Grier DNP Clinical Director, Palliative Medicine Admission and Anticipated Discharge Date Admission Date: March 17, 2022 Subjective on comfort care appears more comfortable, denies acute issues. much happier with less being done and no diet restriction resting in bed with family present: son, dtr in law, dtrs x2, son in law and grandson. wants to return to [facility] with hospice, son called zena from [facility] during my visit for extended discussion, see below Review of Systems Review of Systems: All systems reviewed & are unremarkable except as noted in Subjective Physical Exam Physical Exam: limited exam due to multiple discussion and pt request resting in bed desired additional warm blankets (provided by nursing) AAOx3 skin pale but warm, no cyanosis PG Care Time/CCT Total # of Minutes Spent Total Time Spent: 70 Total Time Spent with Patient: Total time spent is greater than 50% in coordination of care (as documented) at patient's floor/unit and/or counseling patient: Prolonged Care Time Prolonged Care Time: Yes [place]oding [place] [address] Subseq Hosp Care Lvl 3 Patient Type Established History Comprehensive Exam Expanded Problem Focused Medical Decision Making High Complexity Diagnoses Palliative care encounter Z51.5 Advanced care planning/counseling discussion Z71.89 Weakness generalized R53.1 MRSA bacteremia R78.81; B95.62 Acute respiratory failure J96.00 CKD (chronic kidney disease) N18.9 Chronic kidney disease stage: unspecified stage Additional Codes Prolonged Care Time - Prolonged Care Time: Yes ([id number]) (1) CKD (chronic kidney disease) Chronic kidney disease stage: unspecified stage Qualified Code(s): N18.9 - Chronic kidney disease, unspecified
--- NOTE | 2022-04-03 13:19 | Infectious Disease Progress Nt ---
Date of Service April 03, 2022 Assessment & Plan (1) MRSA bacteremia: (2) Frailty syndrome in geriatric patient: Plan Chart reviewed and patient has been transitioned to Comfort measures only. She is pending transfer to hospice at [facility]. All antibiotics discontinued. ID will sign off. Admission and Anticipated Discharge Date Admission Date: March 17, 2022 Subjective This patient recommendation is based on a telemedicine consult request which was completed asynchronously through chart review and information provided by the primary physician. The patient was not seen or examined today. The evaluation is consultative in nature and all patient care and treatment decisions can either be accepted or rejected by the patient's primary hospital-based treating physician using their own independent medical judgment for their patient. Results & Data ([facility]) Vital Signs (Past 12 Hours) Vital Signs O2 Del Method O2 Flow Rate 04/03/22 08:05 Nasal Cannula 5
[2022-04-03] MEDS: ACETAMINOPHEN 325 MG TAB PO PRN (15:32)
[2022-04-03] MEDS: MoRPHine SULFATE 10 MG/0.5 ML UDP PO PRN (15:39)
--- NOTE | 2022-04-03 18:02 | Hospitalist Progress Note ---
Date of Service April 03, 2022 Assessment & Plan (1) Hyperkalemia: Plan: With elevated potassium 7.5 with acute kidney injury. Also has been on supplemental potassium 3 times daily this admission. 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 Could also be side effect of IV Dilaudid albeit axa-[id number] given Narcan With abdominal pain-CT abdomen/pelvis without contrast is negative, but could have mesenteric ischemia, aortic dissection with renal infarct?, GI bleed? All seem to be ruled out at this point and abd pain now reoslved, is hungry -advanced diet to regular BPs now stable off all antihypertensives, and after IVF resuscitation continue to hold all antihypertensives to include metoprolol, Bumex, isosorbide, and amlodipine Family and patient decided against vasopressors and now transitioned to HEALTH SAFETY SPECIALIST (3) Anemia: Plan: Macrocytic in the presence of normal B12 and folate as recently as 03/18/22. 1 g drop in the last 4-months Had another gram drop in abdominal pain as above down to 6.5 the day after her ICU admission. CT abdomen/pelvis without blood COuld be from hemodilution Family now okay with discontinuing Eliquis and Plavix no further labs, no transfusions to be given (4) PATY (acute kidney injury): Plan: Acute kidney injury on CKD stage III Creatinine anne to 2.6 with resulting hyperkalemia as above Unclear cause as blood pressures have been normal until they dropped acutely in the afternoon of 04/01 She is making urine-Dean catheter placed CT abdomen/pelvis without obstruction See above regarding abdominal pain now on HE[employer] SAFETY SPECIALIST No further blood draws (5) Abdominal pain: Plan: As above Unclear cause-perhaps mesenteric ischemia? No AAA seen, no colitis seen Now seems improved, hungry Continue regular diet as tolerated Dilaudid caused excessive sedation perhaps due to poor liver synthetic function. Seems to have tolerated a low-dose of oral Roxanol today for pain as needed (6) Lactic acid acidosis: Plan: As above, possible septic shock? Liver dysfunction? Lactate up to 12 and now is normal... now resolved Perhaps could be due to poor liver synthetic function-gave high-dose thiamine 500 Mg IV x1 no further labs to be drawn (7) MRSA bacteremia: Plan: With 1/4 bottles with MRSA on admission appreciate infectious disease recommendations. Follow-up blood cultures are negative. CT scan reveals partial visualization of the bladder stimulator and lead with no evidence of infection. TTE negative for evidence of vegetations. ID Dr Dupont suspects possible skin source because the patient scratches herself continually. Original plan was to give 4 weeks of daptomycin through April 18, w/ possible extension to 6 weeks.. PICC line has been placed in the left upper extremity. HOWEVER, now transitioned to HEALTH SAFETY SPECIALIST. Family has decided to now discontinue all antibiotics (8) Hypoxia: Plan: Acute hypoxic respiratory failure has now resolved. Was then stable on room air. Was felt to be COPD exacerbation. now back on O2 after shock continue O2 as needed for comfort nebs prn Add Tessalon Perles as needed for cough which she says is helpful, but oral Roxanol would also help (9) Chronic kidney disease (CKD): Plan: With acute kidney injury as above (10) Pruritus: Plan: No rash. Pruritus is chronic. Low-dose cyproheptadine started on March 26 has helped with itching according to the patient. She does not have jaundice, and I doubt her pruritus is associated with any underlying chronic liver disease. Significant xerosis of the skinEucerin cream and gentle soaps prescribed earlier this admission (11) Cirrhosis: Plan: Recently discovered on ultrasound as an outpatient in February No alcohol use, not obese Unclear cause Could be related to ongoing issues as above with lactic acidosis, hypoglycemia (12) Chronic heart failure with preserved ejection fraction (HFpEF): Plan: BNP chronically elevated. This is chronic with no acute exacerbation this admi ssion. Continue current medical management. Bumex and oral potassium now discontinued for comfort measures as well as renal failure and hyperkalemia now on HEALTH SAFETY SPECIALIST (13) History of gout: Plan: Discontinued home allopurinol (14) Depression with anxiety: Plan: Continue duloxetine at lower dose of 30mg due to PATY and continue Remeron (15) Cerebrovascular disease: Plan: Discontinue Plavix as per family wishes (16) Atrial fibrillation: Plan: Rate controlled with current medical management. Discontinued Eliquis, metoprolol, and digoxin on comfort measures (17) Obstructive sleep apnea: Plan: dc CPAP on HEALTH SAFETY SPECIALIST (18) Hypothyroidism: Plan: Continue levothyroxine TSH normal recently (19) COPD (chronic obstructive pulmonary disease): Plan: Admitted with acute exacerbation. Now at baseline. Continue current medical management. Use inhaler as needed Tessalon Perles for cough (20) GERD (gastroesophageal reflux disease): Plan: Continue pantoprazole (21) Diabetes mellitus, type II: Plan: She had developed hypoglycemia earlier this admission. Lantus had been discontinued but then restarted on , March 26, at a lower dose. Dosage uptitrated March 28, due to developing hyperglycemia Lowered again on the morning of 04/01, however with severe hypoglycemia on the afternoon of 04/01 with a glucose of 23 Have now discontinued all insulin Can do Accu-Cheks as needed if desired on comfort measures (22) Hypertension: Plan: Discontinued metoprolol and amlodipine for hypotension and now on comfort measures Plan DVT prophylaxis-Eliquis will now be discontinued on comfort measures Disposition-continued stay on med/surg, on HEALTH SAFETY SPECIALIST, plan to discharge to personal- long-term with hospice tomorrow Admission and Anticipated Discharge Date Admission Date: March 17, 2022 Subjective Patient complains of cough and remains on 5 L nasal cannula. She did have 1 dose of morphine earlier today which the nurse that she tolerated well and helped her sleep. She reported some mild abdominal pain to me but is eating Jell-O and a little bit of mashed potatoes. No bowel movement today. She is very excited about discharge tomorrow to personal-long-term with hospice and states "after tomorrow, I can do what ever I want." Review of Systems Review of Systems: All systems reviewed & are unremarkable except as noted in HPI & below Physical Exam Constitutional: + ill appearing Eyes: + anicteric sclerae and PERRL Neck: trachea midline, no thyromegaly Respiratory: normal respiratory effort and + cough Auscultation: + rhonchi; no crackles and no wheezes Cardiovascular: Rate/Rhythm: regular rate and + irregularly irregular Extremities: + edema (1+ in LEs and arms) Gastrointestinal (Abdomen): Inspection/Auscultation: normal bowel sounds; abdomen not distended Percussion/Palpation: + abdomen tender (Mild in mid abdomen without guarding or rebound) and abdomen soft; no guarding, no hernia, no abdominal mass and no pulsatile mass Musculoskeletal: Extremities: extremities normal to inspection; no cyanosis and no clubbing Skin: no rashes, warm and dry Neurologic: moves all extremities and awake; no focal motor deficits Psychiatric: Orientation: alert, oriented to person and cooperative Results & Data Results & Data ([facility]) Vital Signs (Past 12 Hours) Vital Signs O2 Del Method O2 Flow Rate 04/03/22 08:05 Nasal Cannula 5 PG Care Time/CCT Total # of Minutes Spent Total Time Spent with Patient: Total time spent is greater than 50% in coordination of care (as documented) at patient's floor/unit and/or counseling patient: Coding Level of Care Code 27844 Subseq Hosp Care Lvl 1 Diagnoses Hyperkalemia E87.5 Hypotension I95.9 Anemia D64.9 Anemia type: unspecified type PATY (acute kidney injury) N17.9 Abdominal pain R10.9 Lactic acid acidosis E87.20 MRSA bacteremia R78.81; B95.62 Hypoxia R09.02 Chronic kidney disease (CKD) N18.9 Pruritus L29.9 Cirrhosis K74.60 Chronic heart failure with preserved ejection fraction (HFpEF) I50.32 History of gout Z87.39 Depression with anxiety F41.8 Cerebrovascular disease I67.9 Atrial fibrillation I48.91 Atrial fibrillation type: unspecified Obstructive sleep apnea G47.33 Hypothyroidism E03.9 Hypothyroidism type: unspecified COPD (chronic obstructive pulmonary disease) J44.9 GERD (gastroesophageal reflux disease) K21.9 Esophagitis presence: esophagitis presence not specified Diabetes mellitus, type II E11.9 Hypertension I10 (1) Anemia Anemia type: unspecified type Qualified Code(s): D64.9 - Anemia, unspecified (2) Atrial fibrillation Atrial fibrillation type: unspecified Qualified Code(s): I48.91 - Unspecified atrial fibrillation (3) Hypothyroidism Hypothyroidism type: unspecified Qualified Code(s): E03.9 - Hypothyroidism, unspecified (4) GERD (gastroesophageal reflux disease) Esophagitis presence: esophagitis presence not specified Qualified Code(s): K21.9 - Gastro-esophageal reflux disease without esophagitis
[2022-04-03] MEDS: BENZONATATE 100 MG CAPSULE PO PRN (18:13)
[2022-04-03] MEDS: MIRTAZAPINE TAB 15 MG TAB PO SCH (19:35)
[2022-04-04] MEDS: LEVOTHYROXINE SODIUM 50 MCG TABLET PO SCH (04:58)
[2022-04-04] MEDS: DULoxetine HCL 30 MG CAP PO SCH (08:55)
[2022-04-04] MEDS: PANTOprazole 40 MG TAB PO SCH (08:55)
[2022-04-04] MEDS: NYSTATIN POWDER 15GM BTL EXT SCH (08:56)
--- NOTE | 2022-04-04 08:58 | Communication Note ---
Date of Service: April 04, 2022 No acute issues DC planned for 1300 to [facility] with hospice, pt and family in agreement. Comfort measures continue no charge submitted Angelia Grier DNP Clinical Director, Palliative Medicine
[2022-04-04] MEDS: GLYCOPYRROLATE 0.2 MG/ML VIAL IV PRN (09:03)
[2022-04-04] MEDS: MoRPHine SULFATE 10 MG/0.5 ML UDP PO PRN ×2 (09:03→13:29)
[2022-04-04] MEDS: BENZONATATE 100 MG CAPSULE PO PRN ×2 (09:03→13:30)
--- NOTE | 2022-04-04 12:32 | Discharge Summary ---
Date of Service April 04, 2022 Admission HPI Per Admitting Provider Tiffanie Porter is an 86-year-old female with a past medical history significant for CAD, diastolic heart failure (Normal LV function, no wall motion abnormalities, EF 60-65%, mod/severe TR, mild/mod MR. RVSP > 60 mmHg as of 02/2022), A. fib (on eliquis), hypothyroidism, asthma, COPD, diabetes, CAD, Cirrhosis with severe skin itching, GERD, GI bleed, anemia, BETHANY, depression, anxiety, and BL venous insufficiency who presented to the [facility] ED on 03/17/22 with a chief complaint of SOB. She was brought in by EMS who initially found her to be hypoxic and in respiratory distress. In the ED the patient was found to be afebrile, hemodynamically stable, stable on CPAP but still tachypneic. Labs were remarkable for a WBC WNL, stable Hgb at 8.7 (was 8.7 as of 03/13), stable platelets, stable renal function with potassium of 3.4, calcium of 8.2, stable total bili of 2.8, ATS of 28, ALT of 22, improving alk phos of 222 (was 251 as of 03/13/22), initial high sensitivity trop of 30.7, BNP of 1299 (was 1303 as of 03/03/22), procal of 0.09, and negative covid, Influenza, and RSV negative. Chest xray shows "Mild central pulmonary vascular congestion without overt edema". Prior to admission the patient was given DueNebs, 10 mg IV dexamethasone, and 50 mcg of fentanyl. Per the ED staff, she was transitioned to Bipap on arrival to help with her work of breathing. Per chart review, the patient was recently admitted to [facility] from 03/02/22- 03/05/22 for Acute on chronic CHF exacerbation and Cirrhosis noted on outpatient workup. For her CHF exacerbation the patient was started on IV bumex at 2mg BID with transition back to PO regimen of 2 mg BID on discharge. Her dry weight was listed as 144-145. Per the discharge summary, the patient was found to have cirrhosis on outpatient workup and had been having itching with many scabs. At that time the cause of the cirrhosis was unknown and outpatient workup was recommended. At the time of the exam the patient was sitting comfortably in bed in no acute distress with her Bipap in place. She states that she was in her normal state of health until yesterday when she developed progressive SOB and right lower extremity pain. Her SOB is noted to be worse with exertion and improved with rest. She has a dry, non-productive cough and does not feel as though she has been retaining more fluid since her last discharge. She has still been taking her Bumex as prescribed on last discharge. She is unsure if she has been around sick contacts as she is in an assisted living community. Regarding her right lower extremity pain, she notes pain noted in the posterior aspect of the right knee with some pain that radiates distally, both are exacerbated with movement. She denies recent trauma and notes that she has had to use her walker more than her cane due to the pain. She does not note more swelling in her right legt compared to her left. When asked, she confirms that she has been taking her Eliquis as prescribed. She denies any recent fevers, chills, chest pain, abd ominal pain, nausea, vomiting, diarrhea, dysuria, hematuria, and recent falls. She feels as though her breathing is somewhat improved compared to her arrival to the ED and placement of Bipap. I spoke to her regarding code status, she is a DNR/DNI. Please refer to Dr. Villafuerte's attestation for any changes to the treatment plan. Principal Diagnosis MRSA bacteremia, acute kidney injury, hypotension, hyperkalemia, acute respiratory failure with hypoxia Discharge Exam Constitutional + ill appearing Eyes + anicteric sclerae Neck trachea midline, no thyromegaly Respiratory normal respiratory effort, lungs clear to auscultation normal respiratory effort Auscultation: + rhonchi; no crackles and no wheezes Cardiovascular Rate/Rhythm: regular rate and + irregularly irregular Extremities: + edema (1+ in LEs and arms) Chest (Breasts) Chest: normal inspection of chest Gastrointestinal (Abdomen) Inspection/Auscultation: abdomen normal to inspection and normal bowel sounds; abdomen not distended Percussion/Palpation: + abdomen tender (Mild in mid abdomen without guarding or rebound) and abdomen soft; no guarding, no hernia, no abdominal mass and no pulsatile mass Musculoskeletal Extremities: extremities normal to inspection; no cyanosis and no clubbing Neurologic moves all extremities; no focal motor deficits Psychiatric Orientation: oriented to person Lymphatic no lymphedema Discharge Data Allergies Allergy/AdvReac Type Severity Reaction Status Date / Time shellfish derived Allergy Severe ANAPHYLAXIS Verified 03/13/22 11:20 iodine Allergy Intermediate ANAPHYLAXIS Verified 03/13/22 11:20 lisinopril Allergy Unknown Unknown Verified 03/13/22 11:20 oxybutynin [From Ditropan] Allergy Unknown Unknown Verified 03/13/22 11:20 sertraline [From Zoloft] Allergy Unknown Unknown Verified 03/13/22 11:20 paroxetine AdvReac Mild GI UPSET Verified 03/13/22 11:20 Consultations 03/17/22 15:04 ED Decision to Admit Stat 03/24/22 09:37 Consult Infectious Diseases Routine 03/24/22 15:08 Consult Cardiology Routine 04/01/22 17:32 Consult Nephrology Stat 04/01/22 18:20 Consult Rental Sales Representative Stat 04/02/22 12:10 Consult Palliative Care Routine Ordered Studies 03/17/22 16:24 US venous doppler LE RT Urgent 03/26/22 09:57 CT lumbar spine wo con Urgent 04/01/22 15:50 CT abd pelvis wo con Stat Hospital Course (1) Hyperkalemia: With elevated potassium 7.5 with acute kidney injury. Also has been on supplemental potassium 3 times daily this admission. 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 Could also be side effect of IV Dilaudid albeit [id number] given Narcan With abdominal pain-CT abdomen/pelvis without contrast is negative, but could have mesenteric ischemia, aortic dissection with renal infarct?, GI bleed? All seem to be ruled out at this point and abd pain now reoslved, is hungry Continue regular diet on comfort measures BPs been improved off all antihypertensives, and after IVF resuscitation Discontinued all antihypertensives to include metoprolol, Bumex, isosorbide, and amlodipine Family and patient decided against vasopressors and now transitioned to [employer]ERSON [employer]OWERS (3) Anemia: Macrocytic in the presence of normal B12 and folate as recently as 03/18/22. 1 g drop in the last 4-months Had another gram drop in abdominal pain as above down to 6.5 the day after her ICU admission. CT abdomen/pelvis without blood COuld be from hemodilution Family now okay with discontinuing Eliquis and Plavix on comfort measures no further labs, no transfusions to be given (4) PATY (acute kidney injury): Acute kidney injury on CKD stage III Creatinine anne to 2.6 with resulting hyperkalemia as above Unclear cause as blood pressures have been normal until they dropped acutely in the afternoon of 04/01 She is making urine-Dean catheter placed CT abdomen/pelvis without obstruction See above regarding abdominal pain now on [employer]OWERS No further blood draws (5) Abdominal pain: As above Unclear cause-perhaps mesenteric ischemia? No AAA seen, no colitis seen Now seems improved, hungry Continue regular diet as tolerated Dilaudid caused excessive sedation perhaps due to poor liver synthetic function. Seems to have tolerated low-doses of oral Roxanol as needed for abdominal pain and dyspnea Ativan as needed for anxiety (6) Lactic acid acidosis: As above, possible septic shock? Liver dysfunction? Lactate up to 12 and now is normal... now resolved Perhaps could be due to poor liver synthetic function-gave high-dose thiamine 500 Mg IV x1 no further labs to be drawn (7) MRSA bacteremia: With 1/4 bottles with MRSA on admission appreciate infectious disease recommendations. Follow-up blood cultures are negative. CT scan reveals partial visualization of the bladder stimulator and lead with no evidence of infection. TTE negative for evidence of vegetations. ID Dr Dupont suspects possible skin source because the patient scratches herself continually. Original plan was to give 4 weeks of daptomycin through April 18, w/ possible extension to 6 weeks.. PICC line has been placed in the left upper extremity. HOWEVER, now transitioned to [employer]OWERS. Family has decided to now discontinue all antibiotics (8) Hypoxia: Acute hypoxic respiratory failure has now resolved. Was then stable on room air. Was felt to be COPD exacerbation. now back on O2 after shock continue O2 as needed for comfort nebs prn Roxanol as needed for breathlessness or cough (9) Chronic kidney disease (CKD): With acute kidney injury as above (10) Pruritus: No rash. Pruritus is chronic. Low-dose cyproheptadine started on March 26 has helped with itching according to the patient. She does not have jaundice, and I doubt her pruritus is associated with any underlying chronic liver disease. Significant xerosis of the skinEucerin cream and gentle soaps prescribed earlier this admission (11) Cirrhosis: Recently discovered on ultrasound as an outpatient in February No alcohol use, not obese Unclear cause Could be related to ongoing issues as above with lactic acidosis, hypoglycemia (12) Chronic heart failure with preserved ejection fraction (HFpEF): BNP chronically elevated. This is chronic with no acute exacerbation this admission. Continue current medical management. Bumex and oral potassium now discontinued for comfort measures as well as renal failure and hyperkalemia now on SALESPERSON [employer]OWERS (13) History of gout: Discontinued home allopurinol (14) Depression with anxiety: Continue duloxetine at lower dose of 30mg due to PATY and continue Remeron (15) Cerebrovascular disease: Discontinue Plavix as per family wishes (16) Atrial fibrillation: Rate controlled with current medical management. Discontinued Eliquis, metoprolol, and digoxin on comfort measures (17) Obstructive sleep apnea: dc CPAP on [employer]ERSON [employer]OWERS (18) Hypothyroidism: Continue levothyroxine if desired on comfort measures TSH normal recently (19) COPD (chronic obstructive pulmonary disease): Admitted with acute exacerbation. Now at baseline. Continue current medical management. Use inhaler as needed Roxanol as needed for breathlessness (20) GERD (gastroesophageal reflux disease): Continue pantoprazole (21) Diabetes mellitus, type II: She had developed hypoglycemia earlier this admission. Lantus had been discontinued but then restarted on , March 26, at a lower dose. Dosage uptitrated March 28, due to developing hyperglycemia Lowered again on the morning of 04/01, however with severe hypoglycemia on the afternoon of 04/01 with a glucose of 23 Have now discontinued all insulin Can do Accu-Cheks as needed if desired on comfort measures (22) Hypertension: Discontinued metoprolol and amlodipine for hypotension and now on comfort measures Plan DVT prophylaxis-Eliquis will now be discontinued on comfort measures Disposition- discharge to personal-snf with hospice today Total Time Total Time Spent Total Time Spent (In Minutes): 35 minutes Discharge Plan Discharge Items Patient Disposition: Hospice - Medical Facility Reason For Visit: SOB Discharge Diagnosis: Acute kidney injury,MRSA Bacteremia, Shock, Hypoxia Condition on Discharge: Fair Activity: As commented below Bathing: No limitations Exercise/Sports: As tolerated Non-emergency contact: Primary Care Provider Call non-emergency contact if: you have any medication questions, your symptoms worsen and your pain is not controlled Follow-up/Referrals: Domi Wetzel, [Primary Care Provider] - (You do not need to follow-up with your primary care physician now that you are on hospice.) Diet: Regular Addtl Attending Provider Instructions: You were admitted with an infection in your bloodstream and developed kidney failure. You have chosen to go home with hospice and focus on comfort measures. You can take morphine as needed for pain or breathlessness, lorazepam as needed for anxiety or agitation. The majority of your medications from home have been discontinued. Please follow-up with your hospice provider for any questions or concerns after discharge. Pending Studies at Discharge: No Stand-Alone Forms: [facility] [employer] Skilled Items Patient informed of condition?: Yes DNR: Yes Discharge Level of Care: Other Communicable Disease: No Discharge Prognosis: Deteriorating Lines: None Urinary Catheter: Yes Medications and DC Order Prescriptions: New morphine concentrate 100 mg/5 mL (20 mg/mL) Solution 5 mg PO Q4H PRN (Reason: Pain or breathlessness) Qty: 30 0RF Dermacerin Cream 1 applic EXT [id number] PRN (Reason: dry skin) Qty: 454 0RF Rx Instructions: Please give cream from hospital lorazepam 1 mg tablet 1 mg PO Q6H PRN (Reason: anxiety) Qty: 10 0RF Rx Instructions: This can also be crushed and mixed with water and placed under the tongue Continued duloxetine [Cymbalta] 30 mg capsule,delayed release(DR/EC) 30 mg PO QAM Qty: 90 1RF Rx Instructions: take in addition to 60 mg cap for total dose of 90 mg per day levothyroxine [Synthroid] 50 mcg tablet 50 mcg PO DAILYBB Qty: 30 5RF mirtazapine [Remeron] 15 mg tablet 15 mg PO HS Qty: 30 5RF pantoprazole [Protonix] 40 mg tablet,delayed release (DR/EC) 40 mg PO QAM Qty: 90 1RF nystatin 100,000 unit/gram cream 1 applic topical TID 14 Days Qty: 30 0RF Rx Instructions: until area healed clobetasol 0.05 % cream 1 applic topical BID Qty: 30 1RF nitroglycerin 0.3 mg tablet, sublingual 0.3 mg sublingual Q5M PRN (Reason: Chest Pain) Rx Instructions: do not exceed 3 doses per episode polyethylene glycol 3350 [Miralax] 17 gram/dose powder 8.5 g PO DAILY PRN (Reason: Constipation) Discontinued cholecalciferol (vitamin D3) [Vitamin D3] 25 mcg (1,000 unit) tablet 2,000 unit PO QAM allopurinol [Zyloprim] 100 mg tablet 300 mg PO QAM Qty: 90 1RF Eliquis 2.5 mg tablet 2.5 mg PO BID Qty: 180 1RF bumetanide 2 mg tablet 2 mg PO BID Qty: 60 5RF clopidogrel [Plavix] 75 mg tablet 75 mg PO QAM Qty: 90 1RF digoxin [Digitek] 125 mcg (0.125 mg) tablet 125 mcg PO Q2D Qty: 15 3RF duloxetine [Cymbalta] 60 mg capsule,delayed release(DR/EC) 60 mg PO QAM Qty: 90 1RF Rx Instructions: take in addition to 30 mg cap for total daily dose of 90 mg per day isosorbide mononitrate 30 mg tablet extended release 24 hr 30 mg PO QAM Qty: 90 1RF magnesium oxide 400 mg magnesium tablet 400 mg PO BID Qty: 180 1RF metoprolol succinate [Toprol XL] 50 mg tablet extended release 24 hr 150 mg PO BID Qty: 540 3RF polysaccharide iron complex [Ferrex 150] 150 mg iron capsule 150 mg PO QAM Qty: 90 1RF potassium chloride [K-Tab] 20 mEq tablet extended release 10 meq PO BID Qty: 180 1RF insulin glargine [Lantus Solostar U-100 Insulin] 100 unit/mL (3 mL) insulin pen 28 unit subcut HS Qty: 15 3RF Glucagon Emergency Kit (human) 1 mg recon soln 1 mg subcut Q20M PRN (Reason: hypoglycemia) Qty: 1 5RF Rx Instructions: until target blood sugar attained insulin aspart U-100 [Novolog Flexpen U-100 Insulin] 100 unit/mL (3 mL) insulin pen 7 - 10 unit subcut TIDM Qty: 45 1RF guaifenesin 600 mg tablet extended release 12hr 600 mg PO BID PRN (Reason: cough) Qty: 60 0RF PreserVision Lutein 226 mg-200 unit -5 mg-0.8 mg Capsule 1 cap PO BID Discharge Orders: Discharge Order (Routine); Ordered 04/04/22 Ordered By: Roz Spicer Admission Data Admit Date/Time: 03/17/22 17:00 Attending Provider: Roz Spicer Admit Provider: Surjit Villafuerte Primary Care Provider: Domi Wetzel Other Providers: Jesus Blanco [facility] ; [place] ; Hayder Arce ; Surjit Villafuerte ; Rabia Dupont ; Lon Schwartz ; Almas Reyes ; Nate Roland ; Gary Urbina ; Adrien Arechiga ; Vick Luna Jr ; Harvey Rodas ; Valerie Lopez ; Lana Mc ; Guille Miller ; Joseph Azar ; Hayder Ayoub ; Madelaine Rothman ; Latia Garcia ; Jorge L Butcher ; Addy Bravo ; Domingo Wyatt ; Gary Davis V. ; Isak Mann ; Nitin Saleem ; Breana Kim Coding Level of Care Code D/C DAY MANAGEMENT >30 MINS Diagnoses Hyperkalemia E87.5 Hypotension I95.9 Anemia D64.9 Anemia type: unspecified type PATY (acute kidney injury) N17.9 Abdominal pain R10.9 Lactic acid acidosis E87.20 MRSA bacteremia R78.81; B95.62 Hypoxia R09.02 Chronic kidney disease (CKD) N18.9 Pruritus L29.9 Cirrhosis K74.60 Chronic heart failure with preserved ejection fraction (HFpEF) I50.32 History of gout Z87.39 Depression with anxiety F41.8 Cerebrovascular disease I67.9 Atrial fibrillation I48.91 Atrial fibrillation type: unspecified Obstructive sleep apnea G47.33 Hypothyroidism E03.9 Hypothyroidism type: unspecified COPD (chronic obstructive pulmonary disease) J44.9 GERD (gastroesophageal reflux disease) K21.9 Esophagitis presence: esophagitis presence not specified Diabetes mellitus, type II E11.9 Hypertension I10
== END 2022-04-04 14:14 | disposition hospice, home (50) | DRG 190 ==
LOC: ED 13:16 → SUATTDRO 17:00 → 2N 17:00 → 3W 03-21 04:28 → 1E 04-01 18:33 → 3E 04-02 20:14